=== PATIENT | female | born 1980 | race Caucasian/White ===

== ENCOUNTER 2019-12-25 10:20 | Outpatient (CLI) | payer MEDICARE, MEDICAID, SELFPAY ==
--- NOTE | ~2019-12-25 | XR_ITS ---
EXAMINATION: XR chest 2V EXAM DATE: 12/25/2019 10:40 INDICATION: Mid chest pain. Pneumonia follow-up. TECHNIQUE: Frontal and lateral projections of the chest obtained and reviewed. Comparison is made to prior examination from 12/14/2019. FINDINGS: The lungs are clear. There are no pleural effusions. The cardiomediastinal silhouette is within normal limits. There is no pneumothorax suspected. The bones and soft tissues are unremarkab le. IMPRESSION: Unremarkable chest x-ray exam. Reviewed, dictated and finalized at location A. 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
== END 2019-12-25 10:21 | disposition home or self-care (01) ==
LOC: ANHIMG 10:22
PROVIDERS: PCP Internal Medicine; Visit Provider Internal Medicine
DX: R07.9 Chest pain, unspecified (principal)
CPT/HCPCS: 71046

== ENCOUNTER 2020-01-01 08:01 | Outpatient (CLI) | payer MEDICARE, MEDICAID, SELFPAY ==
--- NOTE | ~2020-01-01 | CT_ITS ---
EXAMINATION: CT abdomen pelvis w con EXAM DATE: 01/01/2020 08:30 INDICATION: Left lower quadrant, bilateral flank pain. History kidney stones. Diarrhea constipation. TECHNIQUE: Spiral CT of the abdomen and pelvis was performed following intravenous injection of 100 m L Omnipaque 350. Axial, coronal and sagittal images were reviewed. The dose-length product (DLP) fo r this examination was 402.19 mGy-cm. The exposure was tailored according to patient size (auto mA e xposure control), and iterative reconstruction (ASIR) was used as additional dose reduction technique . Comparison is made to prior examination from 11/04/2019. FINDINGS: The liver, spleen, adrenal glands and pancreas are unremarkable. There are cholecystectomy clips. Portal and splenic veins are patent. Kidneys enhance symmetrically. There is no hydronephr osis. The uterus is not identified and has likely been surgically resected. The bladder is unremar kable. There is no retroperitoneal or pelvic lymphadenopathy. The appendix is normal. The stomach and small bowel are unremarkable. There is expected amount of c olonic stool. No free intraperitoneal gas. The heart is normal in size. There are no pericardial or pleural effusions. The lung bases are unremarkable. There are no osteoblastic or osteolytic les ions identified. IMPRESSION: 1. Unremarkable abdomen pelvis CT exam. Reviewed, dictated and finalized at location B. [employer]
--- NOTE | ~2020-01-01 | XR_ITS ---
EXAMINATION: XR abdomen/kub 1V EXAM DATE: 01/01/2020 08:17 INDICATION: Left lower quadrant pain. TECHNIQUE: Frontal projection(s) of the abdomen for interpretation. Comparison is made to prior exami nation from 10/20/2017. FINDINGS: There is expected amount of colonic stool and gas. No small bowel dilation, nonobstructiv e bowel gas pattern. There are no suspicious calcifications identified. There is no organomegaly suspected. The bones are unremarkable. There are cholecystectomy clips. IMPRESSION: Unremarkable abdomen x-ray exam. Reviewed, dictated and finalized at location B. 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
== END 2020-01-01 08:02 | disposition home or self-care (01) ==
LOC: ANHIMG 08:02
PROVIDERS: PCP Internal Medicine; Visit Provider Urology
DX: R10.32 Left lower quadrant pain (principal)
CPT/HCPCS: 74018; 74177; Q9967

== ENCOUNTER 2020-01-31 07:53 | Outpatient (CLI) | payer MEDICARE, MEDICAID, SELFPAY ==
--- NOTE | 2020-01-31 08:09 | ECHOL_ITS ---
Patient Info Name: Mirian Bueno Age: 39 years : 1980 Gender: Female Ht: 63 in Wt: 165 lbs BSA: 1.85 m2 HR: 100 bpm BP: 116 / 90 mmHg Technical Quality: Good Exam Date: 01/31/2020 8:45 AM Exam Location: [facility] Patient Status: Outpatient Admit Date: 01/31/2020 Staff Ordering Physician: aMrcial Krishna MD Pouch Maker: Shahriar Shoemaker RDCS, RT Attending Provider: Marcial Krishna MD Referring Physician: Erendira GARZA; Exam Type: CA echo limited Study Info Indications I31.3 - Pericardial effusion (noninflammatory) Complete two-dimensional, color flow and Doppler transthoracic echocardiogram is performed. Summary 1. Limited echocardiogram to assess for pericardial effusion. 2. There is trivial circumferential pericardial effusion. No evidence of cardiac tamponade with normal respiratory variations of mitral valve and tricuspid valve inflow. Pericardium/Pleural There is trivial circumferential pericardial effusion. No evidence of cardiac tamponade with normal respiratory variations of mitral valve and tricuspid valve inflow. Limited echocardiogram to assess for pericardial effusion. Report Signatures
== END 2020-01-31 07:54 | disposition home or self-care (01) ==
LOC: ANHCARD 07:55
PROVIDERS: PCP Internal Medicine; Visit Provider Internal Medicine
DX: I31.9 Disease of pericardium, unspecified (principal)
CPT/HCPCS: 93308

== ENCOUNTER 2020-02-01 13:39 | Emergency (ER) | payer MEDICARE, MEDICAID, SELFPAY ==
--- NOTE | ~2020-02-01 | XR_ITS ---
EXAMINATION: XR hand RT min 3V DATE: 02/01/2020 14:25 INDICATION: Right hand pain. TECHNIQUE: 3 views of right hand were obtained. COMPARISON: Right hand radiographs 08/17/2019 FINDINGS: Bone alignment is normal. No fracture. There is mild osteoarthritis of first interphalangea l joint. IMPRESSION: 1. Mild osteoarthritis of first interphalangeal joint. Reviewed, dictated and finalized at location A.
--- NOTE | ~2020-02-01 | US_ITS ---
EXAMINATION: US venous doppler UE RT EXAM DATE: 02/01/2020 14:48 INDICATION: Right hand pain, factor V deficiency. Palm swelling. TECHNIQUE: Multiple grayscale, color flow, Doppler sonographic images of the right upper extremity ve ins obtained by technologist. Compression was performed where able. There is no prior study for roman boogie. FINDINGS: Right upper extremity: Jugular vein: ------------> Normal. Subclavian vein: --------> Normal. Axillary vein:------------> Normal. Brachial vein:-----------> Normal. Basilic vein: ------------> Normal. Cephalic vein: ----------> Normal. Radial vein: ------------> Normal. Ulnar vein: > Normal. Area of concern was scanned, was unremarkable. No abscess. IMPRESSION: No deep venous thrombosis of the right upper extremity. Reviewed, dictated and finalized at location B.
[2020-02-01 13:50] VITALS: BP 139/77; PULSE 99; RESP 19; TEMP 36.9; O2SAT 100
--- NOTE | 2020-02-01 14:41 | ED.UPPEXIN ---
HPI - Extremity Injury (Upper) General Chief Complaint: Extremity Injury, Upper Stated Complaint: r hand pain Time Seen by Provider: 02/01/20 13:53 Source: patient Mode of arrival: ambulatory Limitations: no limitations History of Present Illness HPI narrative: This is a 39 year old female that presents to the ER for right hand pain since this morning. Reports she always has pain in her hands/wrists when she wakes up, but today was worse than normal. Reports pain mostly in the base of her right thumb. Associated with swelling. Reports she was told by her doctor to come be seen due to her being at increased risk of blood clots. Denies fever, erythema or warmth. Related Data Home Medications Medication Instructions Recorded Confirmed dextroamphetamine-amphetamine 30 mg PO DAILY 09/20/19 02/01/20 ibuprofen 600 mg PO Q4H 09/20/19 02/01/20 quetiapine 300 mg PO HS 09/20/19 02/01/20 cariprazine 3 mg capsule 6 mg PO DAILY cap 02/01/20 02/01/20 cyclobenzaprine 10 mg tablet 10 mg PO TID 02/01/20 02/01/20 lorazepam 1 mg tablet 2 mg PO DAILY PRN tablet 02/01/20 02/01/20 Allergies Allergy/AdvReac Type Severity Reaction Status Date / Time cephalexin Allergy Intermediate Hives / Verified 02/01/20 14:00 Red Face eluxadoline Allergy Intermediate Unknown Verified 02/01/20 14:00 prednisone Allergy Intermediate Rash Verified 02/01/20 14:00 clavulanic acid Allergy Mild Rash Verified 02/01/20 14:00 [From Augmentin] amoxicillin Allergy Unknown Rash Verified 02/01/20 14:00 azithromycin Allergy Unknown Hives Verified 02/01/20 14:00 levofloxacin Allergy Unknown Unknown Verified 02/01/20 14:00 Penicillins Allergy Unknown Unknown Verified 02/01/20 14:00 ropinirole Allergy Unknown parkinsons Verified 02/01/20 14:00 like symptoms tramadol Allergy Unknown Unknown Verified 02/01/20 14:00 trifluoperazine Allergy Unknown Unknown Verified 01/17/20 14:13 Review of Systems Review of Systems: Narrative: CONSTITUTIONAL: Denies fever SKIN: Denies rash MUSCULOSKELETAL: Reports joint pain, and myalgia. NEUROLOGIC: Denies numbness, or weakness. All systems reviewed & are unremarkable except as noted in HPI and below PMFSH Surgical History Surgical History (Updated 12/14/19 @ 16:08 by Shahriar Portillo) Cholecystectomy planned H/O breast augmentation H/O: hysterectomy History of gynecologic surgery Related to endometriosis, x3 Social History Social History Smoking packs per day: 1 Smoking cigarettes per day: 20.0 Smoking status: Heavy tobacco smoker Second hand tobacco smoke exposure: Yes Alcohol intake: never Gender identity (if verbalized by the patient): Female Exam Narrative: Exam Narrative: GENERAL: Well-appearing, well-nourished, and in no acute distress. HEAD: Normocephalic, atraumatic. EYES: EOMI. CHEST: Clear to auscultation. No respiratory distress. No wheezes rales or rhonchi HEART: Regular rate and rhythm. No murmur heard. Normal peripheral pulses. EXTREMITIES: Normal range of motion. No erythema or warmth of the extremities. Tender to palpation of the base of the right thumb. Normal sensation SKIN: Warm, dry, no rash. NEURO: No focal deficits. Alert and oriented x3. PSYCH: Normal mood and affect Course Vital Signs Vital signs: Vital Signs Temperature 98.5 F 02/01/20 13:50 Pulse Rate 99 02/01/20 13:50 Respiratory Rate 19 02/01/20 13:50 Blood Pressure 139/77 02/01/20 13:50 Pulse Oximetry 100 02/01/20 13:50 Temperature 98.5 F 02/01/20 13:50 Pulse Rate 99 02/01/20 13:50 Respiratory Rate 19 02/01/20 13:50 Blood Pressure 139/77 02/01/20 13:50 Pulse Oximetry 100 02/01/20 13:50 MDM - Extremity Injury (Upper) MDM Narrative Medical decision making narrative: Patient presents the emergency department for right hand pain since this morning. Reports she does have chronic pain in the hands and wrists due to fibrom
[2020-02-01 15:15] LABS: Basophils Absolute Auto 0.1 K/mm3 (0.0-0.1); Basophils Percent Auto 0.7 % (0.2-1.2); Eosinophils Absolute Auto 0.1 K/mm3 (0-0.3); Eosinophils Percent Auto 0.8 % (0-4.4); Hematocrit 44.3 % (37.0-47.0); Immature Granulocyte Absolute 0.07 K/mm3 (0.00-0.031); Immature Granulocyte Percent A 0.8 % (0-0.5); Lymphocytes Absolute Auto 2.51 K/mm3 (0.9-3.2); Mean Corpuscular HGB Conc 33.9 g/dl (32-36); Mean Corpuscular Hemoglobin 32.9 pg (26-34); Mean Corpuscular Volume 97.1 fl (80-100); Monocytes Absolute Auto 0.5 K/mm3 (0.1-0.6); Monocytes Percent Auto 5.8 % (2.6-8.5); Neutrophils Absolute Auto 5.2 K/mm3 (1.3-6.7); Neutrophils Percent Auto 61.9 % (45.5-73.1); Platelet Count Result 280 k/mm3 (150-375); Red Blood Count 4.56 M/mm3 (4.2-5.4); Red Cell Distribution Width 11.7 % (11.5-14.5); White Blood Count 8.4 K/mm3 (4.5-10.0)
[2020-02-01 15:29] LABS: INR 0.9; Prothrombin Time 12.3 Seconds (11.1-14.7)
[2020-02-01 15:30] LABS: Partial Thromboplastin Time 28.8 SECONDS (22.3-36.8)
[2020-02-01 15:31] LABS: Blood Urea Nitrogen 8 mg/dL (7-17); CRP 2.3 mg/dL (<1.0); Calcium 8.8 mg/dL (8.4-10.2); Carbon Dioxide 23 mmol/L (22-30); Chloride 106 mmol/L (98-107); Estimated Glomerular Filt Rate > 60; Glucose 83 mg/dL (65-105); Potassium 3.4 mmol/L (3.4-5.0); Sodium 138 mmol/L (137-145)
[2020-02-01 15:49] LABS: Erythrocyte Sedimentation Rate 19 mm/hr (0-20)
[2020-02-01 16:11] VITALS: BP 138/78; PULSE 74; RESP 20; TEMP 36.8; O2SAT 98
== END 2020-02-01 16:12 | disposition home or self-care (01) ==
PROVIDERS: Physician Assistant; Emergency Provider Emergency Medicine; PCP Internal Medicine
DX: M79.641 Pain in right hand (principal); F17.210 Nicotine dependence, cigarettes, uncomplicated; M19.041 Primary osteoarthritis, right hand
CPT/HCPCS: 36415; 73130; 80048; 85025; 85610; 85652; 85730; 86140; 93971; 99284; A9270

== ENCOUNTER 2020-02-21 12:25 | Emergency (ER) | payer MEDICARE, MEDICAID, SELFPAY ==
--- NOTE | ~2020-02-21 | XR_ITS ---
XR shoulder LT min 2V DATE: 02/21/2020 13:18 INDICATION: Left shoulder pain. No injury. TECHNIQUE: 4 views COMPARISON: None FINDINGS: No fracture or dislocation, periosteal reaction or bone destruction or abnormal soft tissue calcification. IMPRESSION: Negative Reviewed, dictated and finalized at location B. IMPRESSION: Negative
[2020-02-21 12:30] VITALS: BP 119/71; PULSE 67; RESP 20; TEMP 36.4; O2SAT 100
--- NOTE | 2020-02-21 12:53 | ED.GENADULT ---
HPI - General Adult General Chief complaint: Extremity Injury, Upper Stated complaint: L SHOULDER PAIN Time Seen by Provider: 02/21/20 12:53 Source: patient and RN notes reviewed Mode of arrival: ambulatory Limitations: no limitations History of Present Illness HPI narrative: 39-year-old female presents with complaints of diffused left shoulder pain for 1 day. Ibuprofen without relief and Dilaudid with some relief. Denies new numbness or tingling. History of numbness and tingling to bilateral hands. No known injury. Hurts with movement of shoulder. Denies radiating pain. No loss of mobility. No swelling. Exacerbating factor is movement. Relieving factor is rest and pain medication. The dominant hand is the RIGHT HAND. Remains active. Mirian denies being , history of hysterectomy per Mirian. Some parts of this dictation were generated by voice recognition software and may contain typographical and/or grammatical inaccuracies. Related Data Home Medications Medication Instructions Recorded Confirmed dextroamphetamine-amphetamine 30 mg PO DAILY 09/20/19 02/21/20 quetiapine 300 mg PO HS 09/20/19 02/21/20 cariprazine 3 mg capsule 4.5 mg PO DAILY cap 02/01/20 02/21/20 cyclobenzaprine 10 mg tablet 10 mg PO TID 02/01/20 02/21/20 lorazepam 1 mg tablet 2 mg PO DAILY PRN tablet 02/01/20 02/21/20 Allergies Allergy/AdvReac Type Severity Reaction Status Date / Time cephalexin Allergy Intermediate Hives / Verified 02/21/20 12:36 Red Face eluxadoline Allergy Intermediate Unknown Verified 02/21/20 12:36 prednisone Allergy Intermediate Rash Verified 02/21/20 12:36 clavulanic acid Allergy Mild Rash Verified 02/21/20 12:36 [From Augmentin] amoxicillin Allergy Unknown Rash Verified 02/21/20 12:36 azithromycin Allergy Unknown Hives Verified 02/21/20 12:36 levofloxacin Allergy Unknown Unknown Verified 02/20/20 13:52 Penicillins Allergy Unknown Unknown Verified 02/21/20 12:36 ropinirole Allergy Unknown parkinsons Verified 02/21/20 12:36 like symptoms tramadol Allergy Unknown Unknown Verified 02/21/20 12:36 trifluoperazine Allergy Unknown Unknown Verified 02/21/20 12:36 Review of Systems Review of Systems: Narrative: CONSTITUTIONAL: Denies fever, chills, sweats. EYES: Denies visual changes, redness, discharge. ENT: Denies rhinorrhea, congestion, sore throat, otalgia. CARDIOVASCULAR: Denies chest pain, palpitations, edema. RESPIRATORY: Denies dyspnea, wheezing, cough. GASTROINTESTINAL: Denies abdominal pain, nausea, vomiting, diarrhea. GENITOURINARY: Denies dysuria, hematuria, abnormal discharge. SKIN: Denies rash or itching. MUSCULOSKELETAL: Denies acute back pain or myalgia. Complains of diffused LT shoulder pain. NEUROLOGIC: Denies numbness or focal weakness. PSYCHIATRIC: Denies anxiety or depression. All other systems reviewed & are unremarkable except as noted in HPI and below. [facility] Past Medical History Medical History Anemia Angina at rest Anxiety Arthritis Asthma Bipolar disorder Bronchitis Chronic pain Cyst LUE, removed Dementia Depression Eczema Endometriosis Fibromyalgia GERD (gastroesophageal reflux disease) Gestational diabetes HLD (hyperlipidemia) Hypokalemia IBS (irritable bowel syndrome) Infertility Kidney stone Knee fracture, left Liver disease Lupus (systemic lupus erythematosus) MTHFR gene mutation Pelvic floor dysfunction Pericardial effusion Pericarditis Pneumonia Previous known suicide attempt PUD (peptic ulcer disease) Schizoaffective disorder Urolithiasis UTI (urinary tract infection) Surgical History Surgical History Cholecystectomy planned H/O breast augmentation H/O: hysterectomy History of gynecologic surgery Related to endometriosis, x3 Family History Family History Grandp
[2020-02-21] MEDS: KETOROLAC (*BKC) 60 MG/2 ML VIAL IM (13:11)
== END 2020-02-21 13:41 | disposition home or self-care (01) ==
PROVIDERS: Emergency Provider Nurse Practitioner Family; PCP Internal Medicine
DX: M25.512 Pain in left shoulder (principal); F17.210 Nicotine dependence, cigarettes, uncomplicated; J45.909 Unspecified asthma, uncomplicated; F41.9 Anxiety disorder, unspecified; F25.9 Schizoaffective disorder, unspecified; I20.9 Angina pectoris, unspecified; M19.90 Unspecified osteoarthritis, unspecified site; N80.9 Endometriosis, unspecified; K21.9 Gastro-esophageal reflux disease without esophagitis; E78.5 Hyperlipidemia, unspecified; M32.9 Systemic lupus erythematosus, unspecified
CPT/HCPCS: 73030; 96372; 99213; G0463; J1885

== ENCOUNTER 2020-05-06 15:24 | Outpatient (CLI) | payer MEDICARE, MEDICAID, SELFPAY ==
--- NOTE | ~2020-05-06 | MM_ITS ---
EXAMINATION: MM scrn lalit implant BI w prasanna HISTORY: Baseline screening mammogram TECHNIQUE: Craniocaudal and mediolateral oblique 3-D tomosynthesis images with implant displacement a nd synthetic 2-D images were generated. Craniocaudal and mediolateral oblique views of the breasts wi thout implant displacement were obtained using full field digital mammography. CAD analysis was submi tted and interpreted. COMPARISON: None, baseline BREAST PARENCHYMAL COMPOSITION: The breasts are heterogeneously dense, which may obscure small masses . FINDINGS: RIGHT BREAST: An asymmetry is present in the anterior third of the slightly outer breast best appreci ated on the craniocaudal view 1.5 cm from the nipple. LEFT BREAST: There is no evidence of suspicious mass, calcification, or architectural distortion to s uggest malignancy. IMPRESSION: 1. Right breast asymmetry on the craniocaudal view. 2. Additional mammographic views and possible breast ultrasound are recommended to evaluate for malig sommer and establish a baseline given that this is the first mammographic examination. BI-RADS Category 0: Incomplete: Needs additional imaging evaluation. Reviewed, dictated and finalized at location A. IMPRESSION: 1. Right breast asymmetry on the craniocaudal view. 2. Additional mammographic views and possible breast ultrasound are recommended to evaluate for malignancy and establish a baseline given that this is the fir st mammographic examination. BI-RADS Category 0: Incomplete: Needs additional imaging evaluation.
== END 2020-05-06 15:25 | disposition home or self-care (01) ==
LOC: ANHIMG 15:25
PROVIDERS: PCP Internal Medicine; Visit Provider Obstetrics & Gynecology
DX: Z12.31 Encounter for screening mammogram for malignant neoplasm of breast (principal)
CPT/HCPCS: 77063; 77067

== ENCOUNTER 2020-05-15 07:12 | Emergency (ER) | payer MEDICARE, MEDICAID, SELFPAY ==
[2020-05-15] VITALS (8 sets, daily range): BP systolic 110–127; BP diastolic 79–93; PULSE 70–74; RESP 17–22; TEMP 36.4; O2SAT 97–100
--- NOTE | ~2020-05-15 | XR_ITS ---
EXAMINATION: XR chest 2V DATE: 05/15/2020 07:59 INDICATION: Right sided chest and stomach pain. TECHNIQUE: PA and lateral views of the chest were obtained. COMPARISON: Chest radiograph dated 12/25/2019 FINDINGS: The lungs remain clear with no focal airspace opacities, pulmonary edema, pleural effusion or pneumot horax. The cardiomediastinal silhouette is normal. Bilateral breast implants. Mild thoracic spondylos is. IMPRESSION: 1. No acute cardiopulmonary disease. Reviewed, dictated and finalized at location A.
--- NOTE | 2020-05-15 07:15 | ECG_ITS ---
Measurements Intervals [place] Rate: 70 P: 34 CA: 178 QRS: 27 QRSD: 89 T: 13 QT: 389 QTc: 421 Interpretive Statements SINUS RHYTHM BORDERLINE ST-T WAVE ABNORMALITY- ANTEROLAT/INF LEADS BASELINE WANDER- I, II, AVR BORDERLINE ECG Electronically Signed On 05-15-2020 11:02:23 CDT by Luis Camarillo D.O.
--- NOTE | 2020-05-15 07:18 | ED.CHESTPAIN ---
HPI - Chest Pain General Chief Complaint: Chest Pain Stated Complaint: cp History of Present Illness HPI narrative: Tearing epigastric pain radiating to the left chest associated with SOB, nausea. She says this feels like when she had a pericardial effusion. On review of the chart she was previously treated for pericarditis. She only had a trivial effusion without tamponade. On repeat ECHO this had resolved. Related Data Home Medications Medication Instructions Recorded Confirmed dextroamphetamine-amphetamine 30 mg PO DAILY 09/20/19 05/01/20 cariprazine 3 mg capsule 4.5 mg PO DAILY cap 02/01/20 04/24/20 lorazepam 1 mg tablet 2 mg PO DAILY PRN tablet 02/01/20 04/24/20 ergocalciferol (vitamin D2) 1,250 1,250 mcg PO .1XW cap 03/27/20 05/01/20 mcg (50,000 unit) capsule ferrous sulfate 325 mg (65 mg 325 mg PO DAILY tablet 03/27/20 05/01/20 iron) tablet rosuvastatin 20 mg tablet 20 mg PO DAILY tablet 03/27/20 05/01/20 aspirin 81 mg tablet,delayed 81 mg PO DAILY 04/24/20 05/01/20 release folic acid 1 mg tablet 1 mg PO DAILY 04/24/20 05/01/20 cariprazine 4.5 mg capsule 4.5 mg PO DAILY 05/01/20 05/01/20 lorazepam 2 mg tablet 2 mg PO TID PRN 05/01/20 05/01/20 quetiapine 300 mg tablet 300 mg PO DAILY tablet 05/01/20 05/01/20 rivaroxaban 20 mg tablet 20 mg PO DAILY 05/01/20 05/01/20 Allergies Allergy/AdvReac Type Severity Reaction Status Date / Time amoxicillin Allergy Intermediate Rash Verified 05/15/20 07:24 azithromycin Allergy Intermediate Hives Verified 05/15/20 07:24 cephalexin Allergy Intermediate Hives / Verified 05/15/20 07:24 Red Face eluxadoline Allergy Intermediate Unknown Verified 05/15/20 07:24 levofloxacin Allergy Intermediate rash Verified 05/15/20 07:24 Penicillins Allergy Intermediate rash Verified 05/15/20 07:24 prednisone Allergy Intermediate Rash Verified 05/15/20 07:24 tramadol Allergy Intermediate Unknown Verified 05/15/20 07:24 trifluoperazine Allergy Intermediate sick Verified 05/15/20 07:24 clavulanic acid Allergy Mild Rash Verified 05/15/20 07:24 [From Augmentin] pregabalin [From Lyrica] Allergy Stopped Verified 05/15/20 07:23 Breathing ropinirole AdvReac Severe parkinsons Verified 05/01/20 13:38 like symptoms Review of Systems Review of Systems: All systems reviewed & are unremarkable except as noted in HPI and below Constitutional: Constitutional: Denies fever(s) Cardiovascular: Cardiovascular: Reports chest pain Respiratory: Respiratory: Reports dyspnea Gastrointestinal: Gastrointestinal: Reports abdominal pain and Reports nausea PMFSH Past Medical History Medical History Anemia Angina at rest Anxiety Arthritis Asthma Bipolar disorder Bronchitis Chronic pain Cyst LUE, removed Dementia Depression Eczema Endometriosis Fibromyalgia GERD (gastroesophageal reflux disease) Gestational diabetes HLD (hyperlipidemia) Hypokalemia IBS (irritable bowel syndrome) Infertility Kidney stone Knee fracture, left Liver disease Lupus (systemic lupus erythematosus) MTHFR gene mutation Pelvic floor dysfunction Pericardial effusion Pericarditis Pneumonia Previous known suicide attempt PUD (peptic ulcer disease) Schizoaffective disorder Urolithiasis UTI (urinary tract infection) Surgical History Surgical History Cholecystectomy planned H/O breast augmentation H/O: hysterectomy History of gynecologic surgery Related to endometriosis, x3 Family History Family History Grandparent Family history of coronary artery disease Father Family history of diabetes mellitus in first degree relative Diabetes mellitus Asthma Family history of arthritis Sibling Asthma Mother Family history of arthritis Social History Social History
[2020-05-15] MEDS: PANTOPRAZOLE SODIUM IV 40 MG VIAL IV PUSH (07:33)
[2020-05-15] MEDS: ONDANSETRON INJ 4 MG/2 ML VIAL IV PUSH ×2 (07:33→10:50)
[2020-05-15 07:48] LABS: Basophils Absolute Auto 0.1 K/mm3 (0.0-0.1); Basophils Percent Auto 0.8 % (0.2-1.2); Eosinophils Absolute Auto 0.1 K/mm3 (0-0.3); Eosinophils Percent Auto 1.6 % (0-4.4); Hematocrit 40.4 % (37.0-47.0); Immature Granulocyte Absolute 0.09 K/mm3 (0.00-0.031); Lymphocytes Absolute Auto 4.03 K/mm3 (0.9-3.2); Lymphocytes Percent Auto 44.7 % (18.3-44.2); Mean Corpuscular HGB Conc 34.7 g/dl (32-36); Mean Corpuscular Hemoglobin 33.6 pg (26-34); Mean Corpuscular Volume 96.9 fl (80-100); Mean Platelet Volume 9.7 fl (7.4-10.4); Monocytes Absolute Auto 0.7 K/mm3 (0.1-0.6); Monocytes Percent Auto 7.2 % (2.6-8.5); Neutrophils Percent Auto 44.7 % (45.5-73.1); Platelet Count Result 175 k/mm3 (150-375); Red Blood Count 4.17 M/mm3 (4.2-5.4); Red Cell Distribution Width 12.6 % (11.5-14.5)
[2020-05-15 07:56] LABS: Add Urine Microscopic? NO; Appearance Urine Clear (Clear); Bilirubin Urine Negative (Negative); Blood Urine Negative (Negative); Color Urine Straw (Yellow); Glucose Urine UA Negative (Negative); Ketones Urine Negative (Negative); Leukocyte Esterase Ur Negative LEU/UL (Negative); Nitrate Urine Negative (Negative); Protein Urine Negative (Negative); Urobilinogen Urine Negative mg/dL (<2.0)
[2020-05-15 08:00] LABS: Alanine Aminotransferase 34 U/L (4-35); Albumin Level 3.9 g/dL (3.5-5.1); Alkaline Phosphatase 58 U/L (38-126); Aspartate Amino Transferase 36 U/L (14-36); Bilirubin,Total < 0.1 mg/dL (0.2-1.3); Blood Urea Nitrogen 10 mg/dL (7-17); Calcium 8.8 mg/dL (8.4-10.2); Carbon Dioxide 26 mmol/L (22-30); Chloride 104 mmol/L (98-107); Estimated CRCL calculation 88 ml/min; Estimated Glomerular Filt Rate > 60; Glucose 121 mg/dL (65-105); Lipase 167 U/L (23-300); Potassium 3.5 mmol/L (3.4-5.0); Sodium 137 mmol/L (137-145)
[2020-05-15 08:01] LABS: Prothrombin Time 22.6 Seconds (11.1-14.7)
[2020-05-15 08:02] LABS: Partial Thromboplastin Time 40.1 SECONDS (22.3-36.8)
[2020-05-15 08:12] LABS: Troponin I < 0.012 ng/mL (0.000-0.034)
[2020-05-15] MEDS: BELLADONNA ALK/PHENOB ELIX 10 ML, MAG HYDROX/ALUMINUM HYD/SIMETH 30 ML, LIDOCAINE HCL 2... PO (10:04)
[2020-05-15 10:38] LABS: Troponin I < 0.012 ng/mL (0.000-0.034)
[2020-05-15] MEDS: DICYCLOMINE HCL INJ 20 MG/2 ML VIAL IM (10:50)
--- NOTE | 2020-05-15 11:27 | PC.NURSE ---
Care assumed at this time, report given by NIKUNJ Caballero
== END 2020-05-15 12:16 | disposition home or self-care (01) ==
PROVIDERS: Emergency Provider Emergency Medicine; PCP Internal Medicine
DX: Z79.82 Long term (current) use of aspirin (principal); R07.89 Other chest pain; M19.90 Unspecified osteoarthritis, unspecified site; J44.9 Chronic obstructive pulmonary disease, unspecified; F41.9 Anxiety disorder, unspecified; F31.9 Bipolar disorder, unspecified; M79.7 Fibromyalgia; K21.9 Gastro-esophageal reflux disease without esophagitis; E78.5 Hyperlipidemia, unspecified; K58.9 Irritable bowel syndrome, unspecified; Z87.442 Personal history of urinary calculi; K76.9 Liver disease, unspecified; M32.9 Systemic lupus erythematosus, unspecified; F25.9 Schizoaffective disorder, unspecified; Z87.440 Personal history of urinary (tract) infections; E72.12 Methylenetetrahydrofolate reductase deficiency; F17.210 Nicotine dependence, cigarettes, uncomplicated; Z87.11 Personal history of peptic ulcer disease
CPT/HCPCS: 36415; 71046; 80053; 81003; 81025; 83690; 84484; 85025; 85610; 85730; 93005; 96372; 96374; 96375; 99284; A9270; C9113; J0500; J2405

== ENCOUNTER 2020-05-26 19:15 | Emergency (ER) | payer MEDICARE, MEDICAID, SELFPAY ==
--- NOTE | ~2020-05-26 | US_ITS ---
EXAMINATION: US pelvic complete w TV DATE: 05/26/2020 20:39 INDICATION: Bilateral pelvic pain. Comparison:No prior studies for comparison. TECHNIQUE: Multiple transabdominal and endovaginal sonographic images of the pelvis performed. FINDINGS: The uterus is surgically absent. The right ovary measures 2.8 x 2.1 x 2.2 cm and the left ovary measures 2.6 x 1.8 x 2.3 cm. There ar e small follicles in each ovary. There is no free fluid in the pelvis. There are no abnormal masses seen on either side. IMPRESSION: 1. Unremarkable pelvic ultrasound post hysterectomy. Reviewed, dictated and finalized at location A.
[2020-05-26 19:31] VITALS: BP 158/95; PULSE 20; RESP 18; TEMP 37.2; O2SAT 99
[2020-05-26] MEDS: MORPHINE SULFATE 4 MG/ML INJ IV PUSH (19:57)
[2020-05-26] MEDS: ONDANSETRON INJ 4 MG/2 ML VIAL IV PUSH ×2 (19:57→21:09)
[2020-05-26 19:59] VITALS: BP 133/83; PULSE 90; RESP 18; O2SAT 100
[2020-05-26 20:03] LABS: Basophils Absolute Auto 0.1 K/mm3 (0.0-0.1); Eosinophils Absolute Auto 0.1 K/mm3 (0-0.3); Eosinophils Percent Auto 0.9 % (0-4.4); Hematocrit 40.6 % (37.0-47.0); Hemoglobin 14.3 g/dL (12.0-15.0); Immature Granulocyte Absolute 0.12 K/mm3 (0.00-0.031); Immature Granulocyte Percent A 1.2 % (0-0.5); Lymphocytes Absolute Auto 3.24 K/mm3 (0.9-3.2); Lymphocytes Percent Auto 32.6 % (18.3-44.2); Mean Corpuscular HGB Conc 35.2 g/dl (32-36); Mean Corpuscular Volume 96.4 fl (80-100); Mean Platelet Volume 10.6 fl (7.4-10.4); Monocytes Absolute Auto 0.9 K/mm3 (0.1-0.6); Monocytes Percent Auto 8.8 % (2.6-8.5); Neutrophils Absolute Auto 5.5 K/mm3 (1.3-6.7); Neutrophils Percent Auto 55.5 % (45.5-73.1); Platelet Count Result 204 k/mm3 (150-375); Red Blood Count 4.21 M/mm3 (4.2-5.4); Red Cell Distribution Width 12.7 % (11.5-14.5); White Blood Count 9.9 K/mm3 (4.5-10.0)
[2020-05-26 20:05] LABS: Add Urine Microscopic? NO; Appearance Urine Clear (Clear); Bilirubin Urine Negative (Negative); Blood Urine Negative (Negative); Color Urine Straw (Yellow); Glucose Urine UA Negative (Negative); Ketones Urine Negative (Negative); Leukocyte Esterase Ur Negative LEU/UL (Negative); Nitrate Urine Negative (Negative); Protein Urine Negative (Negative); Urobilinogen Urine Negative mg/dL (<2.0)
[2020-05-26 20:08] LABS: Specific Grav Ur 1.004 (1.001-1.035)
--- NOTE | 2020-05-26 20:10 | ED.ABDPAIN ---
HPI - Abdominal Pain General Chief Complaint: Abdominal Pain Stated Complaint: abd pain Time Seen by Provider: 05/26/20 19:32 History of Present Illness HPI narrative: Patient is a 40-year-old female who presents ER with lower abdominal pain. She was seen here a week and a half ago for similar symptoms. She followed up with her analytics analyst and was found to have a large ovarian cyst on the right side that measured 2 inches and then 1 inch ovarian cyst on the left side. She was placed on naproxen and Vicodin for her pain. Reports that has not improved it so she has not taken it today. Symptoms worsened today so she came in for further evaluation. No urinary frequency urgency. No vaginal discharge. She is without diarrhea or constipation. No known trauma. Symptoms wax and wane in intensity. Worsened by movement. Related Data Home Medications Medication Instructions Recorded Confirmed dextroamphetamine-amphetamine 30 mg PO DAILY 09/20/19 05/22/20 cariprazine 3 mg capsule 4.5 mg PO DAILY cap 02/01/20 05/22/20 lorazepam 1 mg tablet 2 mg PO DAILY PRN tablet 02/01/20 05/22/20 ergocalciferol (vitamin D2) 1,250 1,250 mcg PO .1XW cap 03/27/20 05/22/20 mcg (50,000 unit) capsule ferrous sulfate 325 mg (65 mg 325 mg PO DAILY tablet 03/27/20 05/22/20 iron) tablet rosuvastatin 20 mg tablet 20 mg PO DAILY tablet 03/27/20 05/22/20 folic acid 1 mg tablet 1 mg PO DAILY 04/24/20 05/22/20 cariprazine 4.5 mg capsule 4.5 mg PO DAILY 05/01/20 05/22/20 lorazepam 2 mg tablet 2 mg PO TID PRN 05/01/20 05/22/20 quetiapine 300 mg tablet 300 mg PO DAILY tablet 05/01/20 05/22/20 rivaroxaban 20 mg tablet 20 mg PO DAILY 05/01/20 05/22/20 cariprazine 4.5 mg capsule 4.5 mg PO DAILY 05/22/20 05/22/20 esketamine 28 mg nasal spray 56 mg NASAL 2XW 05/22/20 05/22/20 naproxen 500 mg tablet 500 mg PO BID tablet 05/22/20 05/22/20 norethindrone (contraceptive) 0.35 0.35 mg PO DAILY tablet 05/22/20 05/22/20 mg tablet quetiapine 300 mg tablet 300 mg PO DAILY tablet 05/22/20 05/22/20 aspirin 325 mg PO DAILY 05/26/20 05/26/20 Allergies Allergy/AdvReac Type Severity Reaction Status Date / Time amoxicillin Allergy Intermediate Rash Verified 05/26/20 19:35 azithromycin Allergy Intermediate Hives Verified 05/26/20 19:35 cephalexin Allergy Intermediate Hives / Verified 05/26/20 19:35 Red Face eluxadoline Allergy Intermediate Unknown Verified 05/26/20 19:35 levofloxacin Allergy Intermediate rash Verified 05/26/20 19:35 Penicillins Allergy Intermediate rash Verified 05/26/20 19:35 prednisone Allergy Intermediate Rash Verified 05/26/20 19:35 tramadol Allergy Intermediate Unknown Verified 05/26/20 19:35 trifluoperazine Allergy Intermediate sick Verified 05/26/20 19:35 clavulanic acid Allergy Mild Rash Verified 05/26/20 19:35 [From Augmentin] pregabalin [From Lyrica] Allergy Stopped Verified 05/26/20 19:35 Breathing ropinirole AdvReac Severe parkinsons Verified 05/26/20 19:35 like symptoms Review of Systems Review of Systems: All systems reviewed & are unremarkable except as noted in HPI and below Constitutional: Constitutional: Denies chills, Denies fever(s) and Denies weakness ENT: Denies dizziness and Denies sore throat Gastrointestinal: Gastrointestinal: Reports abdominal pain, Denies constipation, Denies diarrhea, Reports nausea and Denies vomiting Genitourinary: Genitourinary: Denies as per HPI, Denies abnormal vaginal bleeding, Denies nocturia and Denies dysuria Musculoskeletal: Musculoskeletal: Denies back pain and Denies muscle cramps [facility] Past Medical History Medical History (Updated 05/26/20 @ 22:42 by Mickey Galdamez MD) Anemia Angina at rest Anxiety Arthritis Asthma Bipolar disorder Bronchitis Chronic pain Cyst LUE, removed Dementia Depression Eczema Endometriosis Fibromyalgia GERD (gastroesophageal reflux disease) Gestational diabetes HLD (hyperlipidemia) Hypokalemia IBS (irritable bowel syndrome)
[2020-05-26 20:13] LABS: Blood Urea Nitrogen 6 mg/dL (7-17); Calcium 9.3 mg/dL (8.4-10.2); Carbon Dioxide 24 mmol/L (22-30); Chloride 104 mmol/L (98-107); Estimated Glomerular Filt Rate > 60; Glucose 179 mg/dL (65-105); Partial Thromboplastin Time 30.9 SECONDS (22.3-36.8); Potassium 3.7 mmol/L (3.4-5.0); Sodium 138 mmol/L (137-145)
[2020-05-26 21:11] VITALS: BP 123/78; PULSE 76; PULSE 79; RESP 18; O2SAT 98
[2020-05-26 22:57] VITALS: BP 133/86; PULSE 74; RESP 18; TEMP 36.6; O2SAT 98
== END 2020-05-26 22:59 | disposition home or self-care (01) ==
PROVIDERS: Emergency Provider Emergency Medicine; PCP Internal Medicine
DX: N83.202 Unspecified ovarian cyst, left side (principal); N83.201 Unspecified ovarian cyst, right side; D64.9 Anemia, unspecified; J45.909 Unspecified asthma, uncomplicated; N80.9 Endometriosis, unspecified; E78.5 Hyperlipidemia, unspecified; K58.9 Irritable bowel syndrome, unspecified; E72.12 Methylenetetrahydrofolate reductase deficiency; M32.9 Systemic lupus erythematosus, unspecified; I31.9 Disease of pericardium, unspecified; F31.9 Bipolar disorder, unspecified; F25.9 Schizoaffective disorder, unspecified; F41.9 Anxiety disorder, unspecified; Z87.442 Personal history of urinary calculi; Z87.11 Personal history of peptic ulcer disease; Z87.440 Personal history of urinary (tract) infections
CPT/HCPCS: 36415; 76830; 76856; 80048; 81003; 85025; 85610; 85730; 96374; 96375; 96376; 99284; A9270; J2270; J2405

== ENCOUNTER 2020-06-04 12:09 | Outpatient (CLI) | payer MEDICARE, MEDICAID, SELFPAY ==
--- NOTE | ~2020-06-04 | MMUS_ITS ---
EXAMINATION: MM diagnostic mammo unilat RT, US breast RT limited HISTORY: Right breast asymmetry on screening mammogram TECHNIQUE: Additional 3-D tomosynthesis images with implant displacement of the right breast were per formed and synthetic 2-D images were generated. Mediolateral view of the right breast without implan t displacement was obtained using full field digital mammography. CAD analysis was submitted and inte rpreted. High resolution limited right breast ultrasound was performed. COMPARISON: 05/06/2020 FINDINGS: MAMMOGRAPHIC FINDINGS: No persistent asymmetry is identified with spot compression of the right breast. Benign-appearing mary cifications are noted. ULTRASOUND: There is no evidence of focal abnormal solid or cystic lesion in the vicinity of the mammographic fin ding in question. IMPRESSION: 1. No mammographic or sonographic evidence of malignancy. 2. Recommend routine screening mammography in one year. BI-RADS Category 2: Benign finding(s). Reviewed, dictated and finalized at location A. IMPRESSION: 1. No mammographic or sonographic evidence of malignancy. 2. Recommend routine screening mammography in one year. BI-RADS Category 2: Benign finding(s).
== END 2020-06-04 12:10 | disposition home or self-care (01) ==
LOC: ANHIMG 12:11
PROVIDERS: PCP Internal Medicine; Visit Provider Obstetrics & Gynecology
DX: R92.8 Other abnormal and inconclusive findings on diagnostic imaging of breast (principal)
CPT/HCPCS: 76642; 77065

== ENCOUNTER 2020-06-27 16:47 | Outpatient (CLI) | payer MEDICARE, MEDICAID, SELFPAY ==
--- NOTE | ~2020-06-27 | XR_ITS ---
EXAMINATION: XR chest 2V DATE: 06/27/2020 17:07 INDICATION: Chronic obstructive pulmonary disease TECHNIQUE: PA and lateral views of the chest are obtained. COMPARISON: 05/15/2020 FINDINGS: The lungs are free of acute opacities. There is no pleural effusion or pneumothorax. The ca rdiomediastinal silhouette is normal. The visualized bones and soft tissues are unremarkable. Bilater al breast implants are noted. Cholecystectomy clips are present in the right upper quadrant. IMPRESSION: 1. No acute cardiopulmonary abnormality. Reviewed, dictated and finalized at location B.
== END 2020-06-27 16:48 | disposition home or self-care (01) ==
DX: J44.9 Chronic obstructive pulmonary disease, unspecified (principal)
CPT/HCPCS: 71046

== ENCOUNTER 2020-07-17 11:10 | Outpatient (CLI) | payer MEDICARE, MEDICAID, SELFPAY ==
--- NOTE | ~2020-07-17 | XR_ITS ---
EXAMINATION: XR knee LT min 4V DATE: 07/17/2020 11:34 INDICATION: Chondromalacia of left knee. TECHNIQUE: 4 views of left knee were obtained. COMPARISON: Left knee radiographs 03/19/2019 FINDINGS: Bone alignment is normal. No fracture. There is mild osteoarthritis of patellofemoral nuzhat rtment characterized by a tiny marginal osteophyte. No knee joint effusion. IMPRESSION: 1. Mild osteoarthritis of patellofemoral compartment of the knee. Reviewed, dictated and finalized at location B.
== END 2020-07-17 11:11 | disposition home or self-care (01) ==
LOC: ANHIMG 11:15
DX: M94.262 Chondromalacia, left knee (principal); M76.52 Patellar tendinitis, left knee; M17.12 Unilateral primary osteoarthritis, left knee
CPT/HCPCS: 73564

== ENCOUNTER 2020-08-07 13:40 | Emergency (ER) | payer MEDICARE, MEDICAID, SELFPAY ==
[2020-08-07] VITALS (21 sets, daily range): BP systolic 107–123; BP diastolic 68–80; PULSE 68–85; RESP 14–32; TEMP 36.4; O2SAT 81–100
--- NOTE | ~2020-08-07 | XR_ITS ---
EXAMINATION: XR chest 2V DATE: 08/07/2020 15:49 INDICATION: Asthma presenting with mid sternal chest pain TECHNIQUE: PA and lateral views of the chest were obtained. COMPARISON: Chest radiograph dated 06/27/2020 FINDINGS: The lungs remain clear with no focal airspace opacities, pulmonary edema, pleural effusion or pneumot horax. The cardiomediastinal silhouette is normal. Cholecystectomy clips in right upper quadrant. Mil d thoracic spondylosis. Bilateral breast implants. IMPRESSION: 1. No acute cardiopulmonary disease. Reviewed, dictated and finalized at location A.
--- NOTE | 2020-08-07 13:48 | ECG_ITS ---
Measurements Intervals [place] Rate: 81 P: 47 CO: 170 QRS: 37 QRSD: 87 T: -17 QT: 351 QTc: 410 Interpretive Statements SINUS RHYTHM NONSPECIFIC ST & T-WAVE ABNORMALITY- ANTEROLAT/INF LEADS BORDERLINE ECG Electronically Signed On 08-07-2020 14:37:04 CDT by Luis Camarillo D.O.
[2020-08-07 14:16] LABS: Basophils Absolute Auto 0.1 K/mm3 (0.0-0.1); Eosinophils Absolute Auto 0.1 K/mm3 (0-0.3); Eosinophils Percent Auto 1.6 % (0-4.4); Hemoglobin 15.1 g/dL (12.0-15.0); Immature Granulocyte Absolute 0.07 K/mm3 (0.00-0.031); Immature Granulocyte Percent A 0.8 % (0-0.5); Lymphocytes Absolute Auto 2.99 K/mm3 (0.9-3.2); Lymphocytes Percent Auto 33.5 % (18.3-44.2); Mean Corpuscular HGB Conc 35.1 g/dl (32-36); Mean Corpuscular Hemoglobin 34.1 pg (26-34); Mean Corpuscular Volume 97.1 fl (80-100); Mean Platelet Volume 10.8 fl (7.4-10.4); Monocytes Absolute Auto 0.6 K/mm3 (0.1-0.6); Monocytes Percent Auto 6.8 % (2.6-8.5); Neutrophils Percent Auto 56.3 % (45.5-73.1); Platelet Count Result 193 k/mm3 (150-375); Red Blood Count 4.43 M/mm3 (4.2-5.4); Red Cell Distribution Width 11.9 % (11.5-14.5); White Blood Count 8.9 K/mm3 (4.5-10.0)
[2020-08-07 14:28] LABS: INR 1.2; Prothrombin Time 14.7 Seconds (11.1-14.7)
[2020-08-07 14:29] LABS: Partial Thromboplastin Time 32.6 SECONDS (22.3-36.8)
[2020-08-07 14:32] LABS: Anion Gap 5 mmol/L (8-16); Blood Urea Nitrogen 6 mg/dL (7-17); Calcium 9.3 mg/dL (8.4-10.2); Carbon Dioxide 26 mmol/L (22-30); Chloride 104 mmol/L (98-107); Estimated CRCL calculation 101 ml/min; Estimated Glomerular Filt Rate > 60; Glucose 137 mg/dL (65-105); Potassium 3.8 mmol/L (3.4-5.0); Sodium 135 mmol/L (137-145)
[2020-08-07 14:57] LABS: Troponin I < 0.012 ng/mL (0.000-0.034)
--- NOTE | 2020-08-07 15:42 | PC.NURSE ---
Pt to radiology via w/c. Awaiting room availability. Made aware of busy dept.
--- NOTE | 2020-08-07 16:07 | ED.CHESTPAIN ---
HPI - Chest Pain General Chief Complaint: Chest Pain Stated Complaint: blurred vision/chest pain Time Seen by Provider: 08/07/20 16:05 History of Present Illness HPI narrative: She reports chest pain, SOB, blurry vision, dizziness, walking into things since yesterday. She was seen by her PCP today. I have seen her in the past with similar complaints. She does have a distant history of pericarditis, but has been seen multiple times since resolution and had a normal ECHo. Related Data Home Medications Medication Instructions Recorded Confirmed dextroamphetamine-amphetamine 30 mg PO DAILY 09/20/19 05/22/20 cariprazine 3 mg capsule 4.5 mg PO DAILY cap 02/01/20 05/22/20 lorazepam 1 mg tablet 2 mg PO DAILY PRN tablet 02/01/20 05/22/20 ergocalciferol (vitamin D2) 1,250 1,250 mcg PO .1XW cap 03/27/20 05/22/20 mcg (50,000 unit) capsule ferrous sulfate 325 mg (65 mg 325 mg PO DAILY tablet 03/27/20 05/22/20 iron) tablet rosuvastatin 20 mg tablet 20 mg PO DAILY tablet 03/27/20 05/22/20 folic acid 1 mg tablet 1 mg PO DAILY 04/24/20 05/22/20 cariprazine 4.5 mg capsule 4.5 mg PO DAILY 05/01/20 05/22/20 lorazepam 2 mg tablet 2 mg PO TID PRN 05/01/20 05/22/20 quetiapine 300 mg tablet 300 mg PO DAILY tablet 05/01/20 05/22/20 rivaroxaban 20 mg tablet 20 mg PO DAILY 05/01/20 05/22/20 cariprazine 4.5 mg capsule 4.5 mg PO DAILY 05/22/20 05/22/20 esketamine 28 mg nasal spray 56 mg NASAL 2XW 05/22/20 05/22/20 naproxen 500 mg tablet 500 mg PO BID tablet 05/22/20 05/22/20 norethindrone (contraceptive) 0.35 0.35 mg PO DAILY tablet 05/22/20 05/22/20 mg tablet quetiapine 300 mg tablet 300 mg PO DAILY tablet 05/22/20 05/22/20 aspirin 325 mg PO DAILY 05/26/20 05/26/20 Allergies Allergy/AdvReac Type Severity Reaction Status Date / Time amoxicillin Allergy Intermediate Rash Verified 08/07/20 13:54 azithromycin Allergy Intermediate Hives Verified 08/07/20 13:54 cephalexin Allergy Intermediate Hives / Verified 08/07/20 13:54 Red Face eluxadoline Allergy Intermediate Unknown Verified 08/07/20 13:54 levofloxacin Allergy Intermediate rash Verified 08/07/20 13:54 Penicillins Allergy Intermediate rash Verified 08/07/20 13:54 prednisone Allergy Intermediate Rash Verified 08/07/20 13:54 tramadol Allergy Intermediate Unknown Verified 08/07/20 13:54 trifluoperazine Allergy Intermediate sick Verified 08/07/20 13:54 clavulanic acid Allergy Mild Rash Verified 08/07/20 13:54 [From Augmentin] pregabalin [From Lyrica] Allergy Stopped Verified 08/07/20 13:54 Breathing ropinirole AdvReac Severe parkinsons Verified 08/07/20 13:54 like symptoms Review of Systems Review of Systems: All systems reviewed & are unremarkable except as noted in HPI and below Constitutional: Constitutional: Reports fatigue, Denies fever(s) and Reports weakness Eyes: Eyes: Reports change in vision Cardiovascular: Cardiovascular: Reports chest pain Respiratory: Respiratory: Reports dyspnea and Reports wheezing Gastrointestinal: Gastrointestinal: Reports nausea Genitourinary: Genitourinary: Denies dysuria Neurologic: Reports dizziness, Reports headache(s), Reports numbness and Reports weakness PMFSH Past Medical History Medical History Anemia Angina at rest Anxiety Arthritis Asthma Bipolar disorder Bronchitis Chronic pain Cyst LUE, removed Dementia Depression Eczema Endometriosis Fibromyalgia GERD (gastroesophageal reflux disease) Gestational diabetes HLD (hyperlipidemia) Hypokalemia IBS (irritable bowel syndrome) Infertility Kidney stone Knee fracture, left Liver disease Lupus (systemic lupus erythematosus) MTHFR gene mutation Ovarian cyst Pelvic floor dysfunction Pericardial effusion Pericarditis Pneumonia Previous known suicide attempt PUD (peptic ulcer disease) Schizoaffective disorder Urolithiasis UTI (urinary tract infection) Surgical History Surgical History (R
[2020-08-07] MEDS: ALBUTEROL SULFATE NEB 2.5 MG/0.5 ML INH 5 MG INHALATION (16:31)
[2020-08-07] MEDS: IPRATROPIUM BR 0.02% INH SOLN 0.5 MG/2.5 ML VIAL INHALATION (16:31)
[2020-08-07 17:06] LABS: Troponin I < 0.012 ng/mL (0.000-0.034)
[2020-08-07] MEDS: SODIUM CHLORIDE 0.9% IV 1,000 ML 999 ML IV CONT (17:13)
== END 2020-08-07 18:38 | disposition home or self-care (01) ==
PROVIDERS: Emergency Medicine; Emergency Provider Emergency Medicine
DX: R07.89 Other chest pain (principal); F17.210 Nicotine dependence, cigarettes, uncomplicated; D64.9 Anemia, unspecified; F41.9 Anxiety disorder, unspecified; F31.9 Bipolar disorder, unspecified; N80.9 Endometriosis, unspecified; M79.7 Fibromyalgia; K21.9 Gastro-esophageal reflux disease without esophagitis; E78.5 Hyperlipidemia, unspecified; M32.9 Systemic lupus erythematosus, unspecified; F25.9 Schizoaffective disorder, unspecified
CPT/HCPCS: 36415; 71046; 80048; 84484; 85025; 85610; 85730; 93005; 94640; 96360; 99284; J7030

== ENCOUNTER 2020-08-20 14:34 | Outpatient (CLI) | payer MEDICARE, MEDICAID, SELFPAY ==
--- NOTE | ~2020-08-20 | XR_ITS ---
EXAMINATION: XR chest 2V DATE: 08/20/2020 14:59 INDICATION: Cough and fever and shortness of breath. TECHNIQUE: Frontal and lateral views of the chest were obtained. COMPARISON: Chest 2 views 08/07/2020, chest CT 12/14/2019 FINDINGS: The chest demonstrates clear lungs without pneumonia, pleural effusion, or pneumothorax. Th e heart size is normal. There is a prominent right paracardial fat pad. There is electronic implant i n anterior chest wall. There are bilateral breast implants. IMPRESSION: 1. No acute cardiopulmonary disease. Reviewed, dictated and finalized at location A.
== END 2020-08-20 14:35 | disposition home or self-care (01) ==
DX: R06.02 Shortness of breath (principal); R05 Cough; R50.9 Fever, unspecified; J44.9 Chronic obstructive pulmonary disease, unspecified
CPT/HCPCS: 71046

== ENCOUNTER 2020-09-15 12:52 | Emergency (ER) | payer MEDICARE, MEDICAID, SELFPAY ==
--- NOTE | ~2020-09-15 | XR_ITS ---
EXAMINATION: XR knee LT min 4V DATE: 09/15/2020 13:16 INDICATION: Lateral sided left knee pain after feeling a palpable pop while walking TECHNIQUE: Anteroposterior, 2 oblique and crosstable lateral views of the left knee were obtained COMPARISON: 07/17/2020 FINDINGS: Alignment is normal. No fracture. Joint spaces appear normal although sensitivity for joint space ar e incompletely underestimated on nonweightbearing imaging. Tiny enthesophyte at the proximal patella. No joint effusion/layering lipohemarthrosis. Soft tissues are unremarkable. IMPRESSION: 1. . Negative left knee radiographs. Reviewed, dictated and finalized at location B.
--- NOTE | 2020-09-15 13:06 | ED.GENADULT ---
HPI - General Adult General Chief complaint: Extremity Injury, Lower Stated complaint: left knee/right hip Source: patient Mode of arrival: ambulatory Limitations: no limitations History of Present Illness HPI narrative: 40 y/o female. Presents to [facility] today with acute complaints of worsening LT knee discomforts > past 24 hours. Client notes to have been bending yesterday , and she felt her knee pop . She reports sudden 'sharp pain', intermittent, aggravated with prolonged standing or ambulation. Mildly relieved with rest. Client has not yet taken any home OTC remedies for pain relief. No falls or acute trauma relayed. No lower extremity weakness or loss of lower extremity control. She is ambulatory with gait steady. No additional acute c/o upon PE. Related Data Home Medications Medication Instructions Recorded Confirmed dextroamphetamine-amphetamine 30 mg PO DAILY 09/20/19 09/15/20 ergocalciferol (vitamin D2) 1,250 1,250 mcg PO .1XW cap 03/27/20 05/22/20 mcg (50,000 unit) capsule ferrous sulfate 325 mg (65 mg 325 mg PO DAILY tablet 03/27/20 05/22/20 iron) tablet rosuvastatin 20 mg tablet 20 mg PO DAILY tablet 03/27/20 09/15/20 folic acid 1 mg tablet 1 mg PO DAILY 04/24/20 09/15/20 quetiapine 300 mg tablet 400 mg PO HS tablet 05/01/20 09/15/20 rivaroxaban 20 mg tablet 20 mg PO DAILY 05/01/20 09/15/20 cariprazine 4.5 mg capsule 4.5 mg PO DAILY 05/22/20 09/15/20 esketamine 28 mg nasal spray 56 mg NASAL 2XW 05/22/20 05/22/20 norethindrone (contraceptive) 0.35 0.35 mg PO DAILY tablet 05/22/20 05/22/20 mg tablet aspirin 325 mg PO DAILY 05/26/20 09/15/20 alprazolam [Xanax] 2 mg PO BID 09/15/20 09/15/20 propranolol 20 mg PO QPM 09/15/20 09/15/20 Allergies Allergy/AdvReac Type Severity Reaction Status Date / Time amoxicillin Allergy Intermediate Rash Verified 09/15/20 13:15 azithromycin Allergy Intermediate Hives Verified 09/15/20 13:15 cephalexin Allergy Intermediate Hives / Verified 09/15/20 13:15 Red Face eluxadoline Allergy Intermediate Unknown Verified 09/15/20 13:15 levofloxacin Allergy Intermediate rash Verified 09/15/20 13:15 Penicillins Allergy Intermediate rash Verified 09/15/20 13:15 prednisone Allergy Intermediate Rash Verified 09/15/20 13:15 tramadol Allergy Intermediate Unknown Verified 09/15/20 13:15 trifluoperazine Allergy Intermediate sick Verified 09/15/20 13:15 clavulanic acid Allergy Mild Rash Verified 09/15/20 13:15 [From Augmentin] pregabalin [From Lyrica] Allergy Stopped Verified 09/15/20 13:15 Breathing ropinirole AdvReac Severe parkinsons Verified 09/15/20 13:15 like symptoms Review of Systems Review of Systems: Narrative: CONSTITUTIONAL: Denies fever, chills, sweats. EYES: Denies visual changes, redness, discharge. ENT: Denies rhinorrhea, congestion, sore throat, otalgia. CARDIOVASCULAR: Denies chest pain, palpitations, edema. RESPIRATORY: Denies dyspnea, wheezing, cough GASTROINTESTINAL: Denies abdominal pain, nausea, vomiting, diarrhea. GENITOURINARY: Denies dysuria, hematuria, abnormal discharge SKIN: Denies rash or itching. MUSCULOSKELETAL: Positive LT knee pain. Denies acute back pain, or myalgia. NEUROLOGIC: Denies numbness, or focal weakness. PSYCHIATRIC: Denies anxiety or depression. Constitutional: Constitutional: Reports as per [facility] Past Medical History Medical History (Updated 09/15/20 @ 13:28 by Nehal Castle, COMMODITY MERCHANT-C) Anemia Angina at rest Anxiety Arthritis Asthma Bipolar disorder Bronchitis Chronic pain Cyst LUE, removed Dementia Depression Eczema Endometriosis Fibromyalgia GERD (gastroesophageal reflux disease) Gestational diabetes HLD (hyperlipidemia) Hypokalemia IBS (irritable bowel syndrome) Infertility Kidney stone Knee fracture, left Liver disease Lupus (systemic lupus erythematosus) MTHFR gene mutation Ovarian cyst Pelvic floor dysfunction Pericardial effusion Pericarditis Pneumonia Previo
[2020-09-15 13:08] VITALS: BP 124/73; PULSE 87; RESP 20; TEMP 36.8; O2SAT 100
== END 2020-09-15 13:44 | disposition home or self-care (01) ==
PROVIDERS: Emergency Provider Nurse Practitioner Adult Health
DX: S83.92XA Sprain of unspecified site of left knee, initial encounter (principal); X50.9XXA Other and unspecified overexertion or strenuous movements or postures, initial encounter; F41.9 Anxiety disorder, unspecified; M19.90 Unspecified osteoarthritis, unspecified site; F31.9 Bipolar disorder, unspecified; K21.9 Gastro-esophageal reflux disease without esophagitis; E78.5 Hyperlipidemia, unspecified; M32.9 Systemic lupus erythematosus, unspecified; F20.9 Schizophrenia, unspecified; E72.12 Methylenetetrahydrofolate reductase deficiency; M79.7 Fibromyalgia; N80.9 Endometriosis, unspecified; I20.9 Angina pectoris, unspecified
CPT/HCPCS: 73564; 99213; G0463

== ENCOUNTER 2021-01-07 15:15 | Outpatient (CLI) | payer MEDICARE, MEDICAID, SELFPAY ==
--- NOTE | ~2021-01-07 | CT_ITS ---
EXAMINATION: CT abdomen pelvis w con EXAM DATE: 01/07/2021 16:28 INDICATION: Pelvic and perineal pain. Intermittent constipation and diarrhea. TECHNIQUE: Spiral CT of the abdomen and pelvis was performed following intravenous injection of 100 m L Omnipaque 350. Axial, coronal and sagittal images were reviewed. The dose-length product (DLP) fo r this examination was 909.69 mGy-cm. The exposure was tailored according to patient size (auto mA e xposure control), and iterative reconstruction (ASIR) was used as additional dose reduction technique . 01/01/2020 FINDINGS: There is interval development of hepatic steatosis without suspicious focal lesion identifi ed. Spleen, adrenal glands, pancreas are unremarkable. There are cholecystectomy clips. Portal and splenic veins are patent. Kidneys enhance symmetrically. There is no hydronephrosis. The uterus i s not identified and has likely been surgically resected. The bladder is unremarkable. There is no retroperitoneal or pelvic lymphadenopathy. There is mild scattered arteriosclerotic disease. The appendix is normal. The stomach and small bowel are unremarkable. There is expected amount of c olonic stool. No free intraperitoneal gas. The heart is normal in size. There are no pericardial or pleural effusions. The lung bases are unremarkable. There are no osteoblastic or osteolytic les ions identified. IMPRESSION: 1. No acute intra-abdominal findings. 2. Hepatic steatosis. Reviewed, dictated and finalized at location A. 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
[2021-01-07 16:19] LABS: Estimated Glomerular Filt Rate > 60
== END 2021-01-07 15:16 | disposition home or self-care (01) ==
PROVIDERS: Visit Provider Nurse Practitioner Obstetrics & Gynecology
DX: R10.2 Pelvic and perineal pain (principal); K76.0 Fatty (change of) liver, not elsewhere classified
CPT/HCPCS: 74177; Q9967

== ENCOUNTER → 2021-01-13 11:26 | Outpatient (CLI) | payer MEDICARE, MEDICAID, SELFPAY ==
--- NOTE | ~2021-01-13 | XR_ITS ---
XR chest 2V DATE: 01/13/2021 11:51 INDICATION: Left chest, shoulder pain. History of COPD. Smoker. TECHNIQUE: PA and lateral views COMPARISON: 08/20/2022 view chest FINDINGS: Normal heart size. No hilar or mediastinal enlargement. There is minimal infiltrate and/or atelectasis at the left lung base and blunting of the left costoph renic angle suggesting small left pleural effusion, new since 08/20/2020. No pulmonary infiltrate or consolidation, right pleural effusion or pulmonary vascular congestion or pneumothorax is noted otherwise. At the lower margin of the lateral radiograph there is suggestion of cholecystectomy surgical clips. IMPRESSION: Minimal atelectasis or infiltrate at left lung base and small left pleural effusion Reviewed, dictated and finalized at location A. 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
--- NOTE | ~2021-01-13 | XR_ITS ---
XR shoulder LT min 2V DATE: 01/13/2021 11:52 INDICATION: Left shoulder pain for 3 days TECHNIQUE: 4 views COMPARISON: 02/21/2020 left shoulder FINDINGS: Normal alignment at the acromioclavicular and glenohumeral joints. No fracture, dislocation , periosteal reaction or bone destruction of left shoulder. No abnormal left shoulder soft tissue mary cification. IMPRESSION: Negative left shoulder Reviewed, dictated and finalized at location A. 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
== END ==
DX: M25.512 Pain in left shoulder (principal); J90 Pleural effusion, not elsewhere classified
CPT/HCPCS: 71046; 73030

== ENCOUNTER 2021-02-25 19:47 | Emergency (ER) | payer MEDICARE, MEDICAID, SELFPAY ==
--- NOTE | ~2021-02-25 | CT_ITS ---
EXAMINATION: CT abdomen pelvis w con INDICATION: Right lower quadrant pain TECHNIQUE: Computed tomographic images of the abdomen and pelvis were obtained after the administrati on of 100 cc of Omnipaque 350 intravenous contrast. The dose-length product (DLP) was 483.96 mGy-cm. Automated exposure control and iterative reconstruction technique were employed. COMPARISON: 01/07/2021 FINDINGS: The lung bases are clear. The heart size is normal. The gallbladder is surgically absent. T here is mild enlargement of the common bile duct and central intrahepatic ducts which is likely due t o post cholecystectomy state. The liver is diffusely low in attenuation when compared with the spleen , consistent with hepatic steatosis. The spleen, pancreas, and adrenal glands are normal. Cysts of th e kidneys measure up to 11 mm on the right. No pathologically enlarged abdominal or pelvic lymph node s are identified. There is no free intraperitoneal gas or evidence of bowel obstruction. The appendix is normal. There is moderate distention of the urinary bladder. IMPRESSION: 1. No CT correlate for the patient's symptoms. Reviewed, dictated and finalized at location A.
[2021-02-25 19:49] VITALS: BP 129/72; PULSE 78; RESP 18; TEMP 36.4; O2SAT 100
[2021-02-25 20:11] LABS: Add Urine Microscopic? NO; Appearance Urine Clear (Clear); Bilirubin Urine Negative (Negative); Blood Urine Negative (Negative); Color Urine Colorless (Yellow); Glucose Urine UA Negative (Negative); Ketones Urine Negative (Negative); Leukocyte Esterase Ur Negative LEU/UL (Negative); Nitrate Urine Negative (Negative); Protein Urine Negative (Negative); Urobilinogen Urine Negative mg/dL (<2.0)
[2021-02-25 20:13] LABS: Specific Grav Ur 1.002 (1.001-1.035)
[2021-02-25 20:45] LABS: Basophils Absolute Auto 0.1 K/mm3 (0.0-0.1); Basophils Percent Auto 0.8 % (0.2-1.2); Eosinophils Absolute Auto 0.1 K/mm3 (0-0.3); Eosinophils Percent Auto 0.6 % (0-4.4); Hematocrit 42.6 % (37.0-47.0); Immature Granulocyte Absolute 0.03 K/mm3 (0.00-0.031); Immature Granulocyte Percent A 0.3 % (0-0.5); Lymphocytes Absolute Auto 3.19 K/mm3 (0.9-3.2); Lymphocytes Percent Auto 35.4 % (18.3-44.2); Mean Corpuscular HGB Conc 35.2 g/dl (32-36); Mean Corpuscular Hemoglobin 32.8 pg (26-34); Mean Corpuscular Volume 93.2 fl (80-100); Mean Platelet Volume 10.5 fl (7.4-10.4); Monocytes Absolute Auto 0.5 K/mm3 (0.1-0.6); Monocytes Percent Auto 5.8 % (2.6-8.5); Neutrophils Absolute Auto 5.1 K/mm3 (1.3-6.7); Neutrophils Percent Auto 57.1 % (45.5-73.1); Platelet Count Result 220 k/mm3 (150-375); Red Blood Count 4.57 M/mm3 (4.2-5.4); Red Cell Distribution Width 11.7 % (11.5-14.5)
[2021-02-25 20:57] LABS: Alanine Aminotransferase 31 U/L (4-35); Albumin Level 4.7 g/dL (3.5-5.1); Alkaline Phosphatase 48 U/L (38-126); Anion Gap 10 mmol/L (8-16); Aspartate Amino Transferase 36 U/L (14-36); Bilirubin,Total 0.5 mg/dL (0.2-1.3); Blood Urea Nitrogen 10 mg/dL (7-17); Calcium 9.7 mg/dL (8.4-10.2); Carbon Dioxide 22 mmol/L (22-30); Chloride 107 mmol/L (98-107); Estimated CRCL calculation 89 ml/min; Estimated Glomerular Filt Rate > 60; Glucose 99 mg/dL (65-105); Lipase 338 U/L (23-300); Potassium 3.6 mmol/L (3.4-5.0); Sodium 139 mmol/L (137-145)
[2021-02-25] MEDS: SODIUM CHLORIDE 0.9% IV 1,000 ML 999 ML IV CONT (21:25)
[2021-02-25] MEDS: ONDANSETRON INJ 4 MG/2 ML VIAL IV PUSH (21:25)
[2021-02-25] MEDS: MORPHINE SULFATE (*CRX) 4 MG/ML INJ IV PUSH (21:25)
[2021-02-25 21:28] VITALS: BP 135/73; PULSE 74; RESP 20; O2SAT 100
--- NOTE | 2021-02-25 21:57 | ED.GENADULT ---
HPI - General Adult General Chief complaint: Abdominal Pain Stated complaint: abdominal pain Time Seen by Provider: 02/25/21 20:58 History of Present Illness HPI narrative: Patient is a 40-year-old female who presents ER with abdominal pain. She reports is diffuse pain that began around noon. It sharp and cramping. Radiates to her back and sometimes up her neck. Associate with emesis x1. No diarrhea. She is not having fevers or chills or sweats. She is found no alleviating factors. She has had no dysuria/urinary frequency however friend notes that she has been peeing more often than typical. Patient has found no alleviating factors but has not tried any medications. Denies vaginal bleeding or discharge. Related Data Home Medications Medication Instructions Recorded Confirmed dextroamphetamine-amphetamine 30 mg PO DAILY 09/20/19 09/15/20 ergocalciferol (vitamin D2) 1,250 1,250 mcg PO .1XW cap 03/27/20 05/22/20 mcg (50,000 unit) capsule ferrous sulfate 325 mg (65 mg 325 mg PO DAILY tablet 03/27/20 05/22/20 iron) tablet rosuvastatin 20 mg tablet 20 mg PO DAILY tablet 03/27/20 09/15/20 folic acid 1 mg tablet 1 mg PO DAILY 04/24/20 09/15/20 quetiapine 300 mg tablet 400 mg PO HS tablet 05/01/20 09/15/20 rivaroxaban 20 mg tablet 20 mg PO DAILY 05/01/20 09/15/20 cariprazine 4.5 mg capsule 4.5 mg PO DAILY 05/22/20 09/15/20 esketamine 28 mg nasal spray 56 mg NASAL 2XW 05/22/20 05/22/20 norethindrone (contraceptive) 0.35 0.35 mg PO DAILY tablet 05/22/20 05/22/20 mg tablet aspirin 325 mg PO DAILY 05/26/20 09/15/20 alprazolam [Xanax] 2 mg PO BID 09/15/20 09/15/20 propranolol 20 mg PO QPM 09/15/20 09/15/20 Allergies Allergy/AdvReac Type Severity Reaction Status Date / Time amoxicillin Allergy Intermediate Rash Verified 09/15/20 13:15 azithromycin Allergy Intermediate Hives Verified 09/15/20 13:15 cephalexin Allergy Intermediate Hives / Verified 09/15/20 13:15 Red Face eluxadoline Allergy Intermediate Unknown Verified 09/15/20 13:15 levofloxacin Allergy Intermediate rash Verified 09/15/20 13:15 Penicillins Allergy Intermediate rash Verified 09/15/20 13:15 prednisone Allergy Intermediate Rash Verified 09/15/20 13:15 tramadol Allergy Intermediate Unknown Verified 09/15/20 13:15 trifluoperazine Allergy Intermediate sick Verified 09/15/20 13:15 clavulanic acid Allergy Mild Rash Verified 09/15/20 13:15 [From Augmentin] pregabalin [From Lyrica] Allergy Stopped Verified 09/15/20 13:15 Breathing sulfamethoxazole Allergy Rash Verified 02/25/21 19:53 [From Bactrim] trimethoprim [From Bactrim] Allergy Rash Verified 02/25/21 19:53 ropinirole AdvReac Severe parkinsons Verified 09/15/20 13:15 like symptoms Review of Systems Review of Systems: All systems reviewed & are unremarkable except as noted in HPI and below Constitutional: Constitutional: Denies chills, Denies fever(s) and Denies weakness ENT: Denies nasal congestion and Denies sore throat Cardiovascular: Cardiovascular: Denies chest pain, Denies rapid heart rate and Denies radiating jaw, neck or arm pain Respiratory: Respiratory: Denies cough and Denies dyspnea Gastrointestinal: Gastrointestinal: Reports abdominal pain, Denies bloating, Denies diarrhea, Reports nausea and Reports vomiting Genitourinary: Genitourinary: Denies abnormal vaginal bleeding, Denies nocturia, Denies dysuria, Denies flank pain and Denies vaginal discharge [facility] Past Medical History Medical History (Updated 02/25/21 @ 23:07 by Mickey Galdamez MD) Anemia Angina at rest Anxiety Arthritis Asthma Bipolar disorder Bronchitis Chronic pain Cyst LUE, removed Dementia Depression Eczema Endometriosis Fibromyalgia GERD (gastroesophageal reflux disease) Gestational diabetes HLD (hyperlipidemia) Hypokalemia IBS (irritable bowel syndrome) Infertility Kidney stone Knee fracture, left Liver disease Lupus (systemic lupus erythematosus) MTHFR gene mutation O
[2021-02-25 22:10] VITALS: BP 162/76; PULSE 55; RESP 20; O2SAT 100
[2021-02-25 23:00] VITALS: BP 142/74; PULSE 56; RESP 16; O2SAT 100
== END 2021-02-25 23:15 | disposition home or self-care (01) ==
PROVIDERS: Emergency Medicine; Emergency Provider Emergency Medicine
DX: R10.30 Lower abdominal pain, unspecified (principal); J45.909 Unspecified asthma, uncomplicated; F03.90 Unspecified dementia, unspecified severity, without behavioral disturbance, psychotic disturbance, mood disturbance, and anxiety; M32.9 Systemic lupus erythematosus, unspecified; M79.7 Fibromyalgia; M19.90 Unspecified osteoarthritis, unspecified site; K21.9 Gastro-esophageal reflux disease without esophagitis; E78.5 Hyperlipidemia, unspecified; K58.9 Irritable bowel syndrome, unspecified; K76.9 Liver disease, unspecified; F41.9 Anxiety disorder, unspecified; F31.9 Bipolar disorder, unspecified; F25.9 Schizoaffective disorder, unspecified; E72.12 Methylenetetrahydrofolate reductase deficiency; Z87.442 Personal history of urinary calculi; Z86.711 Personal history of pulmonary embolism; Z87.440 Personal history of urinary (tract) infections; F17.210 Nicotine dependence, cigarettes, uncomplicated
CPT/HCPCS: 36415; 51701; 74177; 80053; 81003; 81025; 83690; 85025; 96361; 96374; 96375; 99284; J2270; J2405; J7030; Q9967

== ENCOUNTER 2021-03-18 09:06 | Outpatient (CLI) | payer MEDICARE, MEDICAID, SELFPAY ==
--- NOTE | ~2021-03-18 | XR_ITS ---
XR wrist RT 2V 03/18/2021 09:45 Indication: Right wrist pain Procedure: 2 views right wrist Comparison: No prior studies for comparison. Findings: There is an ulnar styloid avulsion fracture, likely chronic. No acute fracture, subluxation or dislocation. No erosive changes. No focal soft tissue abnormality. No foreign bodies. Impression: 1: No significant bone or joint abnormality. Reviewed, dictated and finalized at location B. Impression: 1: No significant bone or joint abnormality.
--- NOTE | ~2021-03-18 | XR_ITS ---
XR hip RT min 2V, XR hip LT min 2V 03/18/2021 09:45 Indication: Joint pain Procedure: 2 views each hip Comparison: 08/17/2019 Findings: Normal anatomic alignment. No significant joint space narrowing. No fracture or traumatic m alalignment. There are calcifications overlying the gluteal regions, likely injection granulomas. Impression: 1: No significant bone or joint abnormalities. Reviewed, dictated and finalized at location B. Impression: 1: No significant bone or joint abnormalities. Impression: 1: No significant bone or joint abnormalities.
--- NOTE | ~2021-03-18 | XR_ITS ---
XR hand LT 2V 03/18/2021 09:45 Indication: Left hand pain Procedure: 2 views left hand Comparison: Left hand series dated 08/17/2019 Findings: No fracture, subluxation or dislocation. No erosive changes. No joint space narrowing. No f ocal soft tissue abnormality. No foreign bodies. Impression: 1: No significant bone or joint abnormality. Reviewed, dictated and finalized at location B. Impression: 1: No significant bone or joint abnormality.
--- NOTE | ~2021-03-18 | XR_ITS ---
XR knee RT 2V 03/18/2021 09:45 Indication: Joint pain Procedure: 2 views right knee Comparison: No prior studies for comparison. Findings: Normal anatomic alignment. No significant joint space narrowing. No erosive changes. No fra cture or traumatic malalignment. No foreign bodies. Impression: 1: No significant bone or joint abnormality. Reviewed, dictated and finalized at location B. Impression: 1: No significant bone or joint abnormality.
--- NOTE | ~2021-03-18 | XR_ITS ---
XR foot LT 2V 03/18/2021 09:46 Indication: Left foot pain Procedure: 2 views left foot Comparison: 08/17/2019 Findings: No fracture, subluxation or dislocation. Lisfranc joint intact. No soft tissue abnormality. No foreign bodies. No erosive changes. Impression: 1: No significant bone or joint abnormality. Reviewed, dictated and finalized at location B. Impression: 1: No significant bone or joint abnormality.
--- NOTE | ~2021-03-18 | XR_ITS ---
XR wrist LT 2V 03/18/2021 09:45 Indication: Left wrist pain Procedure: 2 views left wrist Comparison: No prior studies for comparison. Findings: No fracture, subluxation or dislocation to suggest malignancy. No erosive changes. No joint space narrowing. No focal soft tissue abnormality. No foreign bodies. Impression: 1: No significant bone or joint abnormality. Reviewed, dictated and finalized at location B. Impression: 1: No significant bone or joint abnormality.
--- NOTE | ~2021-03-18 | XR_ITS ---
XR knee LT 2V 03/18/2021 09:45 Indication: Joint pain Procedure: 2 views left knee Comparison: 09/15/2020 Findings: Normal anatomic alignment. No significant joint space narrowing. No erosive changes. No fra cture or traumatic malalignment. No foreign bodies. Impression: 1: No significant bone or joint abnormality. Reviewed, dictated and finalized at location B. Impression: 1: No significant bone or joint abnormality.
--- NOTE | ~2021-03-18 | XR_ITS ---
XR ankle RT 2V 03/18/2021 09:45 Indication: Right ankle pain Procedure: 2 views right ankle Comparison: No prior studies for comparison. Findings: No fracture, subluxation or dislocation. Ankle mortise intact. Talar dome is normal. No sig nificant soft tissue abnormality. No foreign bodies. Impression: 1: No significant bone or joint abnormality. Reviewed, dictated and finalized at location B. Impression: 1: No significant bone or joint abnormality.
--- NOTE | ~2021-03-18 | XR_ITS ---
XR foot RT 2V 03/18/2021 09:45 Indication: Joint pain Procedure: 2 views right foot Comparison: No prior studies for comparison. Findings: No fracture, subluxation or dislocation. No significant joint space narrowing. No erosive c hanges. Lisfranc joint intact. No focal soft tissue abnormality. No foreign bodies. Impression: 1: No significant bone or joint abnormality. Reviewed, dictated and finalized at location B. Impression: 1: No significant bone or joint abnormality.
--- NOTE | ~2021-03-18 | XR_ITS ---
XR hand RT 2V 03/18/2021 09:45 Indication: Joint pain Procedure: 2 view right wrist Comparison: No prior studies for comparison. Findings: No fracture or traumatic malalignment. There is an old ulnar styloid avulsion fracture. No erosive changes. No soft tissue abnormality. No foreign body. Impression: 1: No significant bone or joint abnormality. Reviewed, dictated and finalized at location B. Impression: 1: No significant bone or joint abnormality.
--- NOTE | ~2021-03-18 | XR_ITS ---
XR ankle LT 2V 03/18/2021 09:45 Indication: Joint pain Procedure: 2 views left ankle Comparison: No prior studies for comparison. Findings: No fracture, subluxation or dislocation. Ankle mortise intact. Talar dome is normal. No sig nificant soft tissue abnormality. No foreign bodies. Impression: 1: No significant bone or joint abnormality. Reviewed, dictated and finalized at location B. Impression: 1: No significant bone or joint abnormality.
== END 2021-03-18 09:07 | disposition home or self-care (01) ==
LOC: ANHIMG 09:10
PROVIDERS: PCP Internal Medicine; Visit Provider Internal Medicine Rheumatology
DX: M25.50 Pain in unspecified joint (principal)
CPT/HCPCS: 73100; 73120; 73502; 73560; 73600; 73620

== ENCOUNTER → 2021-04-11 07:28 | Outpatient (CLI) | payer MEDICARE, MEDICAID, SELFPAY ==
--- NOTE | ~2021-04-11 | MR_ITS ---
EXAMINATION: MR cervical spine wo con DATE: 04/11/2021 08:10 INDICATION: Neck pain. TECHNIQUE: Magnetic resonance imaging (MRI) of the cervical spine was performed without intravenous c ontrast. Sequences included sagittal T2-weighted FSE, sagittal STIR FSE, sagittal T1-weighted FSE, ax ial MERGE, and axial T2-weighted FSE. COMPARISON: None FINDINGS: There is 7 degrees levocurvature of cervical spine. Vertebral body heights and intervertebr al disc heights are normal. The spinal cord signal intensity is normal. The following disc levels are specifically discussed: C2-C3: The disc does not extend beyond the endplate margin. There is no uncovertebral joint osteoarth ritis. There is mild bilateral facet joint osteoarthritis. There is no neural foraminal stenosis. The re is no central canal stenosis. C3-C4: The disc does not extend beyond the endplate margin. There is mild bilateral uncovertebral kylah nt osteoarthritis. There is moderate bilateral facet joint osteoarthritis. There is no neural foramin al stenosis. There is no central canal stenosis. C4-C5: The disc does not extend beyond the endplate margin. There is no uncovertebral joint osteoarth ritis. There is severe right facet joint osteoarthritis. There is no neural foraminal stenosis. There is no central canal stenosis. C5-C6: The disc does not extend beyond the endplate margin. There is no uncovertebral joint osteoarth ritis. There is mild right facet joint osteoarthritis. There is no neural foraminal stenosis. There i s no central canal stenosis. C6-C7: The disc does not extend beyond the endplate margin. There is no uncovertebral joint osteoarth ritis. There is no facet joint osteoarthritis. There is no neural foraminal stenosis. There is no arlet tral canal stenosis. C7-T1: The disc does not extend beyond the endplate margin. There is no uncovertebral joint osteoarth ritis. There is no facet joint osteoarthritis. There is no neural foraminal stenosis. There is no arlet tral canal stenosis. IMPRESSION: 1. Mild cervical spondylosis. Reviewed, dictated and finalized at location B.
--- NOTE | ~2021-04-11 | MR_ITS ---
EXAMINATION: MR lumbar spine wo con DATE: 04/11/2021 08:41 INDICATION: Low back pain. TECHNIQUE: Magnetic resonance imaging (MRI) of the lumbar spine was performed without intravenous con trast. Sequences included sagittal T2-weighted FSE, sagittal T2-weighted FS FSE, sagittal T1-weighted FSE, and axial T2-weighted FSE. COMPARISON: Lumbar spine MRI 06/12/2015 FINDINGS: There is 3 degrees levocurvature of lumbar spine. Vertebral body heights and intervertebral disc heights are normal. The distal spinal cord signal intensity is normal. The conus medullaris is at L2. The following disc levels are specifically discussed: L1-L2: The disc does not extend beyond the endplate margin. There is no facet joint osteoarthritis. T here is no neural foraminal stenosis. There is no central canal stenosis. L2-L3: The disc does not extend beyond the endplate margin. There is mild right and severe left facet joint osteoarthritis. There is no neural foraminal stenosis. There is no central canal stenosis. L3-L4: The disc does not extend beyond the endplate margin. There is mild right and moderate left fac et joint osteoarthritis. There is no neural foraminal stenosis. There is no central canal stenosis. L4-L5: The disc does not extend beyond the endplate margin. There is mild right and moderate left fac et joint osteoarthritis. There is no neural foraminal stenosis. There is no central canal stenosis. L5-S1: The disc does not extend beyond the endplate margin. There is moderate bilateral facet joint o steoarthritis. There is no neural foraminal stenosis. There is no central canal stenosis. IMPRESSION: 1. Mild lumbar spondylosis, stable from 06/12/2015. Reviewed, dictated and finalized at location B.
== END ==
PROVIDERS: Visit Provider Internal Medicine Rheumatology
DX: M47.817 Spondylosis without myelopathy or radiculopathy, lumbosacral region (principal); M47.812 Spondylosis without myelopathy or radiculopathy, cervical region
CPT/HCPCS: 72141; 72148

== ENCOUNTER 2021-05-12 12:36 | Emergency (ER) | payer MEDICARE, MEDICAID, SELFPAY ==
[2021-05-12] VITALS (9 sets, daily range): BP systolic 106–124; BP diastolic 72–79; PULSE 64–75; RESP 12–26; TEMP 36.4–36.6; O2SAT 99–100
--- NOTE | ~2021-05-12 | XR_ITS ---
EXAMINATION: XR chest 2V DATE: 05/12/2021 13:18 INDICATION: Shortness of breath and fatigue TECHNIQUE: PA and lateral views of the chest are obtained. COMPARISON: 01/13/2021 FINDINGS: The lungs are free of acute opacities. There is no pleural effusion or pneumothorax. The ca rdiomediastinal silhouette is normal. There is mild thoracic spondylosis. Bilateral breast implants a re noted. Surgical clips in the right upper quadrant are likely from prior cholecystectomy. IMPRESSION: 1. No acute cardiopulmonary abnormality. Reviewed, dictated and finalized at location A.
--- NOTE | 2021-05-12 12:58 | ECG_ITS ---
Measurements Intervals [place] Rate: 74 P: 48 NV: 168 QRS: 26 QRSD: 93 T: 22 QT: 378 QTc: 420 Interpretive Statements SINUS RHYTHM NONSPECIFIC T-WAVE ABNORMALITY- ANT/INF LEADS BORDERLINE ECG Electronically Signed On 05-12-2021 14:21:51 CDT by Luis Camarillo D.O.
[2021-05-12 13:12] LABS: Basophils Absolute Auto 0.1 K/mm3 (0.0-0.1); Basophils Percent Auto 0.9 % (0.2-1.2); Eosinophils Absolute Auto 0.1 K/mm3 (0-0.3); Hematocrit 48.7 % (37.0-47.0); Hemoglobin 16.3 g/dL (12.0-15.0); Immature Granulocyte Absolute 0.07 K/mm3 (0.00-0.031); Immature Granulocyte Percent A 0.7 % (0-0.5); Lymphocytes Absolute Auto 3.31 K/mm3 (0.9-3.2); Lymphocytes Percent Auto 33.3 % (18.3-44.2); Mean Corpuscular HGB Conc 33.5 g/dl (32-36); Mean Corpuscular Hemoglobin 32.6 pg (26-34); Mean Corpuscular Volume 97.4 fl (80-100); Mean Platelet Volume 10.3 fl (7.4-10.4); Monocytes Absolute Auto 0.6 K/mm3 (0.1-0.6); Monocytes Percent Auto 5.8 % (2.6-8.5); Neutrophils Absolute Auto 5.8 K/mm3 (1.3-6.7); Neutrophils Percent Auto 58.3 % (45.5-73.1); Platelet Count Result 263 k/mm3 (150-375); Red Cell Distribution Width 12.5 % (11.5-14.5); White Blood Count 9.9 K/mm3 (4.5-10.0)
[2021-05-12 13:24] LABS: Anion Gap 11 mmol/L (8-16); Blood Urea Nitrogen 7 mg/dL (7-17); Calcium 10.1 mg/dL (8.4-10.2); Carbon Dioxide 25 mmol/L (22-30); Chloride 108 mmol/L (98-107); Estimated CRCL calculation 78 ml/min; Estimated Glomerular Filt Rate > 60; Glucose 87 mg/dL (65-105); Potassium 3.8 mmol/L (3.4-5.0); Sodium 144 mmol/L (137-145)
[2021-05-12 13:58] LABS: Glucose Point of Care 59 mg/dl (65-105)
[2021-05-12 15:50] LABS: Add Urine Microscopic? NO; Appearance Urine Clear (Clear); Bilirubin Urine Negative (Negative); Blood Urine Negative (Negative); Color Urine Straw (Yellow); Glucose Urine UA Negative (Negative); Ketones Urine Negative (Negative); Leukocyte Esterase Ur Negative LEU/UL (Negative); Nitrate Urine Negative (Negative); Protein Urine Negative (Negative); Specific Grav Ur 1.005 (1.001-1.035); Urobilinogen Urine Negative mg/dL (<2.0)
[2021-05-12] MEDS: LORazepam INJ (*CRX) 2 MG/ML VIAL 1 MG IV PUSH (15:54)
[2021-05-12] MEDS: HYOSCYAMINE SULFATE 0.125 MG TABLET PO (15:54)
[2021-05-12] MEDS: PROMETHAZINE HCL 25 MG/ML AMPUL 12.5 MG IV PUSH (15:54)
[2021-05-12] MEDS: FAMOTIDINE 20 MG/2 ML VIAL IV PUSH (15:54)
[2021-05-12] MEDS: SODIUM CHLORIDE 0.9% IV 1,000 ML 999 ML IV CONT (15:54)
[2021-05-12 15:55] LABS: Prothrombin Time 13.7 Seconds (11.1-14.7)
--- NOTE | 2021-05-12 16:02 | PC.NURSE ---
Called lab @ [phone] to request add on of hepatic Lipase
[2021-05-12 16:06] LABS: Amphetamine Screen Urine Negative (Negative); Barbiturate Screen Urine Negative (Negative); Benzodiazepines Screen Urine Positive (Negative); Cannabinoid Screen Urine Positive (Negative); Cocaine Screen Urine Negative (Negative); Methadone Screen Urine Negative (Negative); Opiate Screen Urine Negative (Negative); Phencyclidine Screen Urine Negative (Negative)
[2021-05-12 16:06] LABS: Alanine Aminotransferase 31 U/L (4-35); Albumin Level 4.7 g/dL (3.5-5.1); Alkaline Phosphatase 50 U/L (38-126); Aspartate Amino Transferase 42 U/L (14-36); Bilirubin,Total 0.3 mg/dL (0.2-1.3); Lipase 207 U/L (23-300)
--- NOTE | 2021-05-12 16:40 | ED.SOB ---
HPI - SOB/Dyspnea General Chief Complaint: Shortness of Breath/Dyspnea Stated Complaint: Lightheaded/ SOB/Tired Time Seen by Provider: 05/12/21 15:03 Source: patient and RN notes reviewed Mode of arrival: ambulatory Limitations: no limitations History of Present Illness HPI Narrative: Patient is a 41-year-old female who presents with multiple complaints noting fatigue shortness of breath and abdominal pain for the last 3 days she notes that she had had recent pancreatitis was in the hospital and has been doing fine patient denies any recent URI symptoms or other complaints and on arrival does not appear uncomfortable or distressed patient lives at home with her daughter presents with a friend denies any sick contacts or other complaints is noted patient notes that she has been compliant with all of her medication Related Data Home Medications Medication Instructions Recorded Confirmed dextroamphetamine-amphetamine 30 mg PO DAILY 09/20/19 09/15/20 ergocalciferol (vitamin D2) 1,250 1,250 mcg PO .1XW cap 03/27/20 05/22/20 mcg (50,000 unit) capsule ferrous sulfate 325 mg (65 mg 325 mg PO DAILY tablet 03/27/20 05/22/20 iron) tablet rosuvastatin 20 mg tablet 20 mg PO DAILY tablet 03/27/20 09/15/20 folic acid 1 mg tablet 1 mg PO DAILY 04/24/20 09/15/20 quetiapine 300 mg tablet 400 mg PO HS tablet 05/01/20 09/15/20 rivaroxaban 20 mg tablet 20 mg PO DAILY 05/01/20 09/15/20 cariprazine 4.5 mg capsule 4.5 mg PO DAILY 05/22/20 09/15/20 esketamine 28 mg nasal spray 56 mg NASAL 2XW 05/22/20 05/22/20 norethindrone (contraceptive) 0.35 0.35 mg PO DAILY tablet 05/22/20 05/22/20 mg tablet aspirin 325 mg PO DAILY 05/26/20 09/15/20 alprazolam [Xanax] 2 mg PO BID 09/15/20 09/15/20 propranolol 20 mg PO QPM 09/15/20 09/15/20 Allergies Allergy/AdvReac Type Severity Reaction Status Date / Time amoxicillin Allergy Intermediate Rash Verified 09/15/20 13:15 azithromycin Allergy Intermediate Hives Verified 09/15/20 13:15 cephalexin Allergy Intermediate Hives / Verified 09/15/20 13:15 Red Face eluxadoline Allergy Intermediate Unknown Verified 09/15/20 13:15 levofloxacin Allergy Intermediate rash Verified 09/15/20 13:15 Penicillins Allergy Intermediate rash Verified 09/15/20 13:15 prednisone Allergy Intermediate Rash Verified 09/15/20 13:15 tramadol Allergy Intermediate Unknown Verified 09/15/20 13:15 trifluoperazine Allergy Intermediate sick Verified 09/15/20 13:15 clavulanic acid Allergy Mild Rash Verified 09/15/20 13:15 [From Augmentin] pregabalin [From Lyrica] Allergy Stopped Verified 09/15/20 13:15 Breathing sulfamethoxazole Allergy Rash Verified 02/25/21 19:53 [From Bactrim] trimethoprim [From Bactrim] Allergy Rash Verified 02/25/21 19:53 ropinirole AdvReac Severe parkinsons Verified 09/15/20 13:15 like symptoms Review of Systems Review of Systems: All systems reviewed & are unremarkable except as noted in HPI and below PMFSH Past Medical History Medical History (Updated 05/12/21 @ 17:13 by Zoran Danielle PA-C) Anemia Angina at rest Anxiety Arthritis Asthma Bipolar disorder Bronchitis Chronic pain Cyst LUE, removed Dementia Depression Eczema Endometriosis Fibromyalgia GERD (gastroesophageal reflux disease) Gestational diabetes HLD (hyperlipidemia) Hypokalemia IBS (irritable bowel syndrome) Infertility Kidney stone Knee fracture, left Liver disease Lupus (systemic lupus erythematosus) MTHFR gene mutation Ovarian cyst Pelvic floor dysfunction Pericardial effusion Pericarditis Pneumonia Previous known suicide attempt PUD (peptic ulcer disease) Schizoaffective disorder Urolithiasis UTI (urinary tract infection) Surgical History Surgical History Cholecystectomy planned H/O breast augmentation H/O: hysterectomy History of gynecologic surgery Related to endometriosis, x3 Family History Family History (Reviewed
[2021-05-12] MEDS: ONDANSETRON INJ 4 MG/2 ML VIAL IV PUSH (17:35)
== END 2021-05-12 17:37 | disposition home or self-care (01) ==
PROVIDERS: Emergency Medicine; Emergency Medicine Emergency Medical Services; Emergency Provider Emergency Medicine; PCP Internal Medicine
DX: R42 Dizziness and giddiness (principal); R10.9 Unspecified abdominal pain; J45.909 Unspecified asthma, uncomplicated; F03.90 Unspecified dementia, unspecified severity, without behavioral disturbance, psychotic disturbance, mood disturbance, and anxiety; E78.5 Hyperlipidemia, unspecified; K21.9 Gastro-esophageal reflux disease without esophagitis; K58.9 Irritable bowel syndrome, unspecified; M32.9 Systemic lupus erythematosus, unspecified; M79.7 Fibromyalgia; M19.90 Unspecified osteoarthritis, unspecified site; E72.12 Methylenetetrahydrofolate reductase deficiency; F31.9 Bipolar disorder, unspecified; F41.9 Anxiety disorder, unspecified; F17.210 Nicotine dependence, cigarettes, uncomplicated; Z87.01 Personal history of pneumonia (recurrent); Z87.11 Personal history of peptic ulcer disease; Z87.442 Personal history of urinary calculi; Z87.440 Personal history of urinary (tract) infections; Z79.01 Long term (current) use of anticoagulants; Z79.82 Long term (current) use of aspirin; R94.31 Abnormal electrocardiogram [ECG] [EKG]
CPT/HCPCS: 36415; 71046; 80048; 80076; 80307; 81003; 82948; 83690; 85025; 85610; 85730; 93005; 96361; 96374; 96375; 99284; A9270; J2060; J2405; J2550; J7030

== ENCOUNTER 2021-06-16 17:09 | Outpatient (CLI) | payer MEDICARE, MEDICAID, SELFPAY ==
--- NOTE | ~2021-06-16 | MM_ITS ---
EXAMINATION: MM diag lalit implant BI w prasanna HISTORY: Bilateral inferior breast pain TECHNIQUE: ML, MLO and craniocaudal 3-D tomosynthesis implant displaced images of both breasts were p erformed and synthetic 2-D images were generated. Implant MLO and CC views. CAD analysis was submitte d and interpreted. COMPARISON: 06/04/2020diagnostic right mammogram and limited right breast ultrasound examination 05/06/2020 bilateral implant digital screening mammogram BREAST PARENCHYMAL COMPOSITION: The breasts are heterogeneously dense, which may obscure small masses . FINDINGS: Status post bilateral augmentation mammoplasty. There is asymmetry in the outer left breast on craniocaudal projection and at the mid and lower left breast on implant MLO view. Diagnostic left mammogram is recommended. Otherwise no suspicious mass, architectural distortion, malignant calcification, skin thickening or r etraction is evident. Given the indication of bilateral breast pain and bilateral heterogeneously dense stroma which may ob scure masses, consider bilateral breast ultrasound examination. IMPRESSION: 1. Left mammographic asymmetries; recommend diagnostic left mammogram 2. Heterogeneously dense stroma which may obscure masses and bilateral breast pain; consider bilatera l breast ultrasound examination BI-RADS Category 0: Incomplete: Needs additional imaging evaluation. Reviewed, dictated and finalized at location A. IMPRESSION: 1. Left mammographic asymmetries; recommend diagnostic left mammogram 2. Heterogeneously dense stroma which may obscure masses and bilateral breast p ain; consider bilateral breast ultrasound examination BI-RADS Category 0: Incomplete: Needs additional imaging evaluation.
== END 2021-06-16 17:10 | disposition home or self-care (01) ==
PROVIDERS: PCP Internal Medicine; Visit Provider Nurse Practitioner Obstetrics & Gynecology
DX: Z12.31 Encounter for screening mammogram for malignant neoplasm of breast (principal); N64.4 Mastodynia; R92.8 Other abnormal and inconclusive findings on diagnostic imaging of breast
CPT/HCPCS: 77062; 77066; G0279

== ENCOUNTER 2021-07-22 18:08 | Outpatient (CLI) | payer MEDICARE, MEDICAID, SELFPAY ==
--- NOTE | ~2021-07-22 | XR_ITS ---
EXAMINATION: XR chest 2V DATE: 07/22/2021 18:21 INDICATION: Bronchitis. Cough. TECHNIQUE: Frontal and lateral views of the chest were obtained. COMPARISON: Chest 2 views 05/12/2021 FINDINGS: The chest demonstrates clear lungs without pneumonia, pleural effusion, or pneumothorax. Th e heart size is normal. Surgical clips in the right upper quadrant are likely from cholecystectomy. IMPRESSION: 1. No acute cardiopulmonary disease. Reviewed, dictated and finalized at location A.
== END 2021-07-22 18:09 | disposition home or self-care (01) ==
LOC: ANHIMG 18:11
PROVIDERS: PCP Internal Medicine; Visit Provider Internal Medicine
DX: J40 Bronchitis, not specified as acute or chronic (principal); R05 Cough; F17.200 Nicotine dependence, unspecified, uncomplicated
CPT/HCPCS: 71046

== ENCOUNTER 2021-07-29 11:57 | Outpatient (CLI) | payer MEDICARE, MEDICAID, SELFPAY ==
--- NOTE | ~2021-07-29 | MMUS_ITS ---
EXAMINATION: MM diag lalit implant LT w prasanna, US breast BI limited HISTORY: History of bilateral lower breast pain TECHNIQUE: Craniocaudal, mediolateral, and mediolateral oblique 3-D tomosynthesis images with implant displacement of the left breast were performed and synthetic 2-D images were generated. CAD analysi s was submitted and interpreted. High resolution limited bilateral breast ultrasound was performed. COMPARISON: 06/06/2021, 05/06/2020 BREAST PARENCHYMAL COMPOSITION: The breasts are heterogeneously dense, which may obscure small masses . FINDINGS: MAMMOGRAPHIC FINDINGS: There is no evidence of suspicious mass, calcification, or architectural distortion malignancy. There has been no suspicious interval change. No mammographic correlate is identified for the reporte d breast pain. ULTRASOUND: There is no evidence of focal abnormal solid or cystic lesion in the vicinity of the patient's report ed breast pain in either breast. IMPRESSION: 1. No specific mammographic or sonographic correlate is identified for the patient's reported breast pain. Further evaluation at this time should be based on clinical assessment. Continued follow-up phy sical examination is recommended. 2. Recommend routine screening mammography in one year. BI-RADS Category 1: Negative Reviewed, dictated and finalized at location B. IMPRESSION: 1. No specific mammographic or sonographic correlate is identified for the rob ent's reported breast pain. Further evaluation at this time should be based on clinical assessment. Continued follow-up physical examination is recommended. 2. Recommend routine screening mammography in one year. BI-RADS Category 1: Negative
== END 2021-07-29 11:58 | disposition home or self-care (01) ==
LOC: ANHIMG 11:58
PROVIDERS: PCP Internal Medicine; Visit Provider Nurse Practitioner Obstetrics & Gynecology
DX: R92.8 Other abnormal and inconclusive findings on diagnostic imaging of breast (principal)
CPT/HCPCS: 76642; 77061; 77065; G0279

== ENCOUNTER 2021-10-23 10:00 | Outpatient (CLI) | payer MEDICARE, MEDICAID, SELFPAY ==
--- NOTE | ~2021-10-23 | XR_ITS ---
EXAMINATION: XR chest 2V 10/23/2021 10:22 INDICATION: Bronchitis. Cough. PROCEDURE: 2 view chest COMPARISON: Comparison to multiple prior studies sequentially, with oldest reviewed study dated 08/20. FINDINGS: The lungs are clear. The cardiomediastinal silhouette is within normal limits. There are no pleural effusions. There is no pneumothorax suspected. IMPRESSION: 1: NO ACUTE CARDIOPULMONARY DISEASE. Reviewed, dictated and finalized at location A. WRITER
== END 2021-10-23 10:01 | disposition home or self-care (01) ==
PROVIDERS: PCP Internal Medicine; Visit Provider Internal Medicine
DX: J40 Bronchitis, not specified as acute or chronic (principal)
CPT/HCPCS: 71046

== ENCOUNTER 2021-12-02 11:11 | Outpatient (CLI) | payer MEDICARE, MEDICAID, SELFPAY ==
--- NOTE | ~2021-12-02 | XR_ITS ---
EXAMINATION: XR hand RT 2V, XR hand LT 2V EXAM DATE: 12/02/2021 11:53 INDICATION: Polyarthralgia, bilateral hand pain. TECHNIQUE: Frontal and lateral projections of the right hand. Frontal and lateral projections left h and. Comparison is made to prior examination from 03/18/2021. FINDINGS: There are no bony erosions identified. The joints are symmetric There are no acute hand fra ctures or dislocations identified. There is no subcutaneous gas. The soft tissue is unremarkable. There are no radiopaque foreign bodies. IMPRESSION: 1. Unremarkable right, left two-view hand exams. Reviewed, dictated and finalized at location A. H CUTTER IMPRESSION: 1. Unremarkable right, left two-view hand exams.
--- NOTE | ~2021-12-02 | XR_ITS ---
EXAMINATION: XR sacroiliac joints min 3V EXAM DATE: 12/02/2021 11:53 INDICATION: Polyarthralgia. Sacroiliac pain. TECHNIQUE: Sacroiliac frontal and bilateral oblique projections. There is no prior study for compar luis. FINDINGS: Mild bilateral sacroiliac joint primary osteoarthritis. There are no bony erosions identif ied. There are no acute fractures or dislocations identified. There is no subcutaneous gas. The sof t tissue is unremarkable. There are no radiopaque foreign bodies. IMPRESSION: Mild bilateral sacroiliac osteoarthritis. Reviewed, dictated and finalized at location A. 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
--- NOTE | ~2021-12-02 | XR_ITS ---
EXAMINATION: XR knee RT 3V DATE: 12/02/2021 11:53 INDICATION: Polyarthralgia. TECHNIQUE: 3 views of right knee standing were obtained. COMPARISON: Right knee radiographs 03/18/2021 FINDINGS: Bone alignment is normal. No fracture. Joint spaces are well maintained. There is no knee j oint effusion. IMPRESSION: 1. Normal right knee. Reviewed, dictated and finalized at location B. ING WHEEL RAKER IMPRESSION: 1. Normal right knee.
== END 2021-12-02 11:12 | disposition home or self-care (01) ==
LOC: ANHIMG 11:16
PROVIDERS: PCP Internal Medicine; Visit Provider Physician Assistant
DX: M47.818 Spondylosis without myelopathy or radiculopathy, sacral and sacrococcygeal region (principal)
CPT/HCPCS: 72202; 73120; 73562

== ENCOUNTER 2021-12-31 10:04 | Outpatient (CLI) | payer MEDICARE, MEDICAID, SELFPAY ==
--- NOTE | ~2021-12-31 | US_ITS ---
EXAMINATION: US soft tissue head and neck DATE: 12/31/2021 10:40 INDICATION: Localized swelling, mass, or lump of neck. TECHNIQUE: Multiple grayscale and Doppler ultrasound images of the neck were obtained. COMPARISON: None FINDINGS: There are normal lymph nodes in right neck in the patient's area of concern. IMPRESSION: 1. Normal lymph nodes in right neck in the patient's area of concern. Reviewed, dictated and finalized at location E. IC AID ELIGIBILITY ASSISTANT
== END 2021-12-31 10:05 | disposition home or self-care (01) ==
PROVIDERS: PCP Internal Medicine; Visit Provider Internal Medicine
DX: R22.1 Localized swelling, mass and lump, neck (principal)
CPT/HCPCS: 76536

== ENCOUNTER 2022-08-31 18:51 | Inpatient (IN) | payer MEDICARE, MEDICAID, SELFPAY ==
[2022-08-31] VITALS (21 sets, daily range): BP systolic 111–123; BP diastolic 78–96; PULSE 99; RESP 20; TEMP 36.3; O2SAT 97–100
--- NOTE | ~2022-08-31 | XR_ITS ---
EXAMINATION: XR chest 1V portable DATE: 09/04/2022 09:01 INDICATION: Chest pain. TECHNIQUE: A single frontal view of the chest was obtained. COMPARISON: Chest 2 views 10/23/2021, CT abdomen and pelvis 08/31/2022 FINDINGS: There is no pneumonia, pleural effusion, or pneumothorax. The heart size is normal. IMPRESSION: 1. No acute cardiopulmonary disease. Reviewed, dictated and finalized at location A.
--- NOTE | ~2022-08-31 | XR_ITS ---
EXAMINATION: XR abdomen/kub 1V DATE: 09/04/2022 09:01 INDICATION: Abdominal pain. TECHNIQUE: A supine view of the abdomen was obtained. COMPARISON: CT abdomen and pelvis 08/31/2022 FINDINGS: There are no dilated loops of bowel. There is a paucity of stool in the colon. Surgical cli ps in the right upper quadrant are likely from cholecystectomy. IMPRESSION: 1. Normal bowel gas pattern. Reviewed, dictated and finalized at location A.
--- NOTE | ~2022-08-31 | MR_ITS ---
EXAMINATION: MR MRCP wo/w con/w 3D wo ind DATE: 09/05/2022 15:34 INDICATION: Right upper quadrant abdominal pain. Elevated liver function tests. TECHNIQUE: Magnetic resonance imaging (MRI) of the abdomen was performed without and with 13 mL Multi jb intravenous contrast. Sequences included coronal T2-weighted SS-FSE, coronal T2-weighted FS SS- FSE, coronal T2-weighted FS FIESTA, axial T2-weighted FS FIESTA, axial T2-weighted FIESTA, sagittal T 2-weighted SS-FSE, axial T1-weighted dual-echo FSPGR, axial T2-weighted SS-FSE, axial T1-weighted LAV A, axial T2-weighted STIR FSE. Thick-slab T2-weighted FRFSE-XL images were obtained for magnetic reso nance cholangiopancreatography (MRCP). Rotating maximum intensity projection 3-D reconstructions of t he volumetric data were created by the technologist. Postcontrast sequences included a time course of axial T1-weighted LAVA. COMPARISON: None. FINDINGS: ABDOMEN MRI: Heart size is normal. No pericardial or pleural effusion. Bilateral breast implants. Hepatomegaly wit h prominent diffuse hepatic steatosis with signal dropout on opposed phase imaging. Gallbladder is no t visualized and likely surgically absent. Pancreas, spleen and bilateral adrenal glands are normal. Bilateral nonenhancing T2 hyperintense renal cysts the largest on the right measuring 1.1 cm maximal diameter. Visualized portion of the bowels are unremarkable. No pathologically enlarged abdominal lym phadenopathy. Visualized bones are unremarkable with normal marrow signal throughout. ABDOMEN MRCP: The common bile duct measures 4 mm diameter which is normal. No intrahepatic biliary ductal dilation. IMPRESSION: 1. Hepatomegaly with diffuse hepatic steatosis. 2. Status post cholecystectomy. No intra or extrahepatic biliary ductal dilation. Reviewed, dictated and finalized at location A. IMPRESSION: 1. Hepatomegaly with diffuse hepatic steatosis. 2. Status post cholecystectomy. No intra or extrahepatic biliary ductal dilatio n.
--- NOTE | ~2022-08-31 | CT_ITS ---
EXAMINATION: CT abdomen pelvis w con DATE: 08/31/2022 22:53 INDICATION: vomiting TECHNIQUE: Computed tomography (CT) of the abdomen and pelvis was performed with 100 mL Omnipaque-350 intravenous contrast. Automated exposure control and iterative reconstruction technique were employe d. The dose-length product was 394.44 mGy-cm. COMPARISON: 02/25/2021. FINDINGS: Lower thorax: Bilateral breast augmentation. Liver: Enlarged. Diffuse fatty infiltration. Biliary/Gallbladder: Gallbladder is absent. No bile duct dilation. Pancreas: No mass or duct dilation. Spleen: Normal. Adrenals:No mass. Kidneys: Right upper pole cyst. Bilateral hypodensities that are too small to characterize. No suspic ious mass. No hydronephrosis. No obstructing calcification. GI tract: Distal esophageal and gastric wall edema. No small or large bowel dilation. Normal appendix . Fluid-filled colon. Mesentery/Peritoneum: No ascites, mass, or free air. Retroperitoneum: No mass. Atherosclerotic abdominal aortic and/or arterial calcifications. Pelvis: The bladder is partially decompressed, with wall thickening. The uterus is absent. Soft Tissues: Soft tissues and body wall unremarkable. Bones: No acute osseous finding. IMPRESSION: Hepatomegaly and steatosis. Esophagitis/gastritis. Fluid-filled colon, as can be seen with diarrheal illness. Bladder wall thickening which may be secondary to cystitis or incomplete distention. Reviewed, dictated and finalized at location K. IMPRESSION: Hepatomegaly and steatosis. Esophagitis/gastritis. Fluid-filled colon, as can b e seen with diarrheal illness. Bladder wall thickening which may be secondary t o cystitis or incomplete distention.
--- NOTE | 2022-08-31 19:42 | PC.NURSE ---
Dr. Galdamez at bedside to assess pt.
[2022-08-31] MEDS: ONDANSETRON INJ 4 MG/2 ML VIAL IV PUSH (20:03)
[2022-08-31] MEDS: SODIUM CHLORIDE 0.9% IV 1,000 ML 999 ML IV CONT (20:03)
[2022-08-31] MEDS: DICYCLOMINE HCL INJ 20 MG/2 ML VIAL IM (20:03)
[2022-08-31 20:12] LABS: Basophils Absolute Auto 0.1 K/mm3 (0.0-0.1); Basophils Percent Auto 0.8 % (0.2-1.2); Eosinophils Absolute Auto 0.1 K/mm3 (0-0.3); Eosinophils Percent Auto 0.7 % (0-4.4); Hematocrit 44.7 % (37.0-47.0); Hemoglobin 16.2 g/dL (12.0-15.0); Immature Granulocyte Absolute 0.13 K/mm3 (0.00-0.031); Immature Granulocyte Percent A 0.8 % (0-0.5); Lymphocytes Absolute Auto 4.19 K/mm3 (0.9-3.2); Lymphocytes Percent Auto 25.3 % (18.3-44.2); Mean Corpuscular HGB Conc 36.2 g/dl (32-36); Mean Corpuscular Hemoglobin 33.3 pg (26-34); Mean Platelet Volume 10.8 fl (7.4-10.4); Monocytes Absolute Auto 1.3 K/mm3 (0.1-0.6); Monocytes Percent Auto 7.7 % (2.6-8.5); Neutrophils Absolute Auto 10.7 K/mm3 (1.3-6.7); Neutrophils Percent Auto 64.7 % (45.5-73.1); Platelet Count Result 327 k/mm3 (150-375); Red Blood Count 4.86 M/mm3 (4.2-5.4); Red Cell Distribution Width 12.2 % (11.5-14.5); White Blood Count 16.6 K/mm3 (4.5-10.0)
[2022-08-31 20:18] LABS: Add Urine Microscopic? YES; Appearance Urine Cloudy (Clear); Bacteria Urine Trace /hpf; Bilirubin Urine Negative (Negative); Blood Urine Negative (Negative); Color Urine Amber (Yellow); Glucose Urine UA Negative (Negative); Ketones Urine Trace mg/dL (Negative); Leukocyte Esterase Ur Trace LEU/UL (Negative); Mucus Urine Heavy /lpf; Nitrate Urine Negative (Negative); Protein Urine 1+ mg/dL (Negative); RBC Urine 0-2 /hpf (0-2); Squamous Epithelial Cell Urine Many /hpf (Few); Urobilinogen Urine Negative mg/dL (<2.0); WBC Urine 0-3 /hpf
[2022-08-31 20:28] LABS: Alanine Aminotransferase 56 U/L (6-35); Albumin Level 4.7 g/dL (3.5-5.1); Alkaline Phosphatase 101 U/L (38-126); Anion Gap 19 mmol/L (8-16); Aspartate Amino Transferase 75 U/L (14-36); Blood Urea Nitrogen 5 mg/dL (7-17); Calcium 9.6 mg/dL (8.4-10.2); Carbon Dioxide 22 mmol/L (22-30); Chloride 95 mmol/L (98-107); Estimated CRCL calculation 66 ml/min; Estimated Glomerular Filt Rate > 60; Glucose 157 mg/dL (65-110); Lipase 100 U/L (23-300); Potassium 2.3 mmol/L (3.4-5.0); Sodium 136 mmol/L (137-145)
--- NOTE | 2022-08-31 21:03 | PC.NURSE ---
Pharmacy contacted for IV potassium.
[2022-08-31] MEDS: KCL 20 MEQ/SW 100 ML 100 ML 50 MEQ IVPB (21:27)
[2022-08-31] MEDS: POTASSIUM CHLORIDE 20 MEQ TABLET 40 MEQ PO (21:36)
--- NOTE | 2022-08-31 21:39 | PC.NURSE ---
Patient reports intolerable pain in her left arm due to the potassium infusion. Patient asked if potassium could be stopped. Rate decreased to 25 ml/hr and patient tolerating infusion at this time.
--- NOTE | 2022-08-31 23:25 | ED.NAVMDI ---
HPI - Nausea/Vomiting/Diarrhea General Chief complaint: Nausea/Vomiting/Diarrhea Stated complaint: n/v x 3 days Time Seen by Provider: 08/31/22 19:24 History of Present Illness HPI Narrative: Patient is a 42-year-old female who presents ER with GI illness. She has had nausea and vomiting as well as diarrhea for the last 3 days. She has been on Flagyl. Has history of IBS but is also had some infectious colitis. Currently has stool studies that are pending through [facility]. Patient is scheduled for follow-up with Dr. Miramontes for colonoscopy and EGD. No blood in stool. No aggravating or alleviating factors. Related Data Home Medications Medication Instructions Recorded Confirmed dextroamphetamine-amphetamine ER 30 mg PO DAILY 09/20/19 09/01/22 30 mg 24hr capsule,extend release folic acid 1 mg tablet 1 mg PO DAILY 04/24/20 09/01/22 rivaroxaban 20 mg tablet (Xarelto) 20 mg PO DAILY 05/01/20 09/01/22 aspirin 325 mg tablet 325 mg PO DAILY 05/26/20 09/01/22 aluminum-mag hydroxide-simethicone 10 ml PO Q6H PRN Heartburn 09/01/22 09/01/22 200 mg-200 mg-20 mg/5 mL oral susp (Antacid Liquid) cariprazine 6 mg capsule (Vraylar) 6 mg PO DAILY 09/01/22 09/01/22 cyanocobalamin (vitamin B-12) 1,000 mcg subcut ONCE 09/01/22 09/01/22 1,000 mcg/mL injection solution (Dodex) dicyclomine 10 mg capsule 10 mg PO BID 09/01/22 09/01/22 diphenoxylate-atropine 2.5 1 tablet PO TID PRN Diarrhea 09/01/22 09/01/22 mg-0.025 mg tablet glipizide 5 mg tablet 5 mg PO BID 09/01/22 09/01/22 haloperidol 2 mg tablet 2 mg PO HS 09/01/22 09/01/22 lamotrigine 25 mg tablet,extended 25 mg PO DAILY 09/01/22 09/01/22 release 24 hr oxycodone-acetaminophen 7.5 mg-325 1 tablet PO Q4H PRN Pain (Scale 09/01/22 09/01/22 mg tablet Score 7-10) quetiapine 100 mg tablet 100 mg PO HS 09/01/22 09/01/22 Allergies Allergy/AdvReac Type Severity Reaction Status Date / Time amoxicillin Allergy Intermediate Rash Verified 08/31/22 19:10 azithromycin Allergy Intermediate Hives Verified 08/31/22 19:10 cephalexin Allergy Intermediate Hives / Verified 08/31/22 19:10 Red Face eluxadoline Allergy Intermediate Unknown Verified 08/31/22 19:10 levofloxacin Allergy Intermediate rash Verified 08/31/22 19:10 Penicillins Allergy Intermediate rash Verified 08/31/22 19:10 prednisone Allergy Intermediate Rash Verified 08/31/22 19:10 tramadol Allergy Intermediate Unknown Verified 08/31/22 19:10 trifluoperazine Allergy Intermediate sick Verified 08/31/22 19:10 clavulanic acid Allergy Mild Rash Verified 08/31/22 19:10 [From Augmentin] pregabalin [From Lyrica] Allergy Stopped Verified 08/31/22 19:10 Breathing sulfamethoxazole Allergy Rash Verified 08/31/22 19:10 [From Bactrim] trimethoprim [From Bactrim] Allergy Rash Verified 08/31/22 19:10 ropinirole AdvReac Severe parkinsons Verified 08/31/22 19:10 like symptoms Review of Systems Review of Systems: All systems reviewed & are unremarkable except as noted in HPI and below Constitutional: Constitutional: Denies chills, Denies fatigue and Denies fever(s) ENT: Denies dysphagia and Denies sore throat Cardiovascular: Cardiovascular: Denies chest pain, Denies rapid heart rate and Denies radiating jaw, neck or arm pain Respiratory: Respiratory: Denies cough and Denies dyspnea Gastrointestinal: Gastrointestinal: Reports abdominal pain, Reports diarrhea, Reports nausea and Reports vomiting Genitourinary: Genitourinary: Denies dysuria and Denies flank pain PMFSH Past Medical History Medical History (Updated 09/01/22 @ 07:14 by Mickey Galdamez MD) Anemia Angina at rest Anxiety Arthritis Asthma Bipolar disorder Bronchitis Chronic pain Cyst LUE, removed Dementia Depression Diarrhea Eczema Endometriosis Fibromyalgia GERD (gastroesophageal reflux disease) Gestational diabetes HLD (hyperlipidemia) Hypokalemia IBS (irritable bowel syndrome) Infertility Kidney stone Knee fracture, l
[2022-08-31] MEDS: FAMOTIDINE 20 MG/2 ML VIAL IV PUSH (23:46)
[2022-09-01] VITALS (25 sets, daily range): BP systolic 76–116; BP diastolic 41–72; PULSE 62–81; RESP 16–26; TEMP 36.2–36.3; O2SAT 96–100; BMI 25.6
[2022-09-01 00:20] LABS: Anion Gap 9 mmol/L (8-16); Blood Urea Nitrogen 5 mg/dL (7-17); Calcium 8.3 mg/dL (8.4-10.2); Carbon Dioxide 24 mmol/L (22-30); Chloride 99 mmol/L (98-107); Estimated CRCL calculation 75 ml/min; Estimated Glomerular Filt Rate > 60; Glucose 125 mg/dL (65-110); Potassium 2.5 mmol/L (3.4-5.0); Sodium 132 mmol/L (137-145)
--- NOTE | 2022-09-01 01:04 | PC.NURSE ---
IV Potassium infusion stopped with 30 mls left to infuse as patient unable to tolerate. Crying out in pain and demanding infusion to be stopped. made aware.
[2022-09-01] MEDS: ONDANSETRON INJ 4 MG/2 ML VIAL IV PUSH ×4 (01:26→19:39)
--- NOTE | 2022-09-01 01:33 | PM.IMHP ---
H&P: HPI History of Present Illness Date/Time: 09/01/22 01:33 Chief Complaint: 42 years old female with past medical history of esophageal stricture status post dilatation follow-up with GI for nausea and vomiting and diarrhea was recently diagnosed with colitis and possible plan for EGD and colonoscopy patient presented to the hospital with nausea vomiting and diarrhea started 3 days ago worsening gradually aggravated by food associated with generalized abdominal pain dull in nature at the ER CT scan confirmed colitis also patient has hypokalemia patient was admitted to the hospital for evaluation of and treatment of hypokalemia and diverticulitis GI will be consulted discussed with the ER Review of Systems Review of Systems: Twelve system review was done was negative [facility] Past Medical History Medical History (Updated 08/26/22 @ 17:48 by Nancy Knutson APN-Shae) Anemia Angina at rest Anxiety Arthritis Asthma Bipolar disorder Bronchitis Chronic pain Cyst LUE, removed Dementia Depression Diarrhea Eczema Endometriosis Fibromyalgia GERD (gastroesophageal reflux disease) Gestational diabetes HLD (hyperlipidemia) Hypokalemia IBS (irritable bowel syndrome) Infertility Kidney stone Knee fracture, left Liver disease Lupus (systemic lupus erythematosus) MTHFR gene mutation Nausea and vomiting Ovarian cyst Pelvic floor dysfunction Pericardial effusion Pericarditis Pneumonia Previous known suicide attempt PUD (peptic ulcer disease) Right lower quadrant abdominal pain Schizoaffective disorder Urolithiasis UTI (urinary tract infection) Surgical History Surgical History Cholecystectomy planned H/O breast augmentation H/O: hysterectomy History of gynecologic surgery Related to endometriosis, x3 Family History Family History Grandparent Family history of coronary artery disease Father Family history of diabetes mellitus in first degree relative Diabetes mellitus Asthma Family history of arthritis Sibling Asthma Mother Family history of arthritis Social History Social History Smoking packs per day: 1 Smoking cigarettes per day: 20.0 Smoking status: Heavy tobacco smoker Second hand tobacco smoke exposure: Yes Alcohol intake: never Substance use: current Substance use type: marijuana Gender identity (if verbalized by the patient): Female Sexual Orientation (if Verbalized by the Patient): Straight or Heterosexual Meds Home Medications and Allergies Home Medications Medication Instructions Recorded Confirmed Type dextroamphetamine-amphetamine ER 30 mg PO DAILY 09/20/19 09/15/20 History 30 mg 24hr capsule,extend release albuterol sulfate 90 mcg/actuation 2 puff inhalation Q4-6H PRN 11/02/19 05/22/20 Rx aerosol inhaler (ProAir HFA) shortness of breath or wheezing #1 device folic acid 1 mg tablet 1 mg PO DAILY 04/24/20 09/15/20 History rivaroxaban 20 mg tablet (Xarelto) 20 mg PO DAILY 05/01/20 09/15/20 History cariprazine 4.5 mg capsule 4.5 mg PO DAILY 05/22/20 09/15/20 History (Vraylar) esketamine 28 mg nasal spray 56 mg intranasal 2XW 05/22/20 05/22/20 History (Spravato) aspirin 325 mg tablet 325 mg PO DAILY 05/26/20 09/15/20 History propranolol 60 mg capsule,24 20 mg PO QPM 09/15/20 09/15/20 History hr,extended release famotidine 20 mg tablet (Pepcid) 20 mg PO BID #14 tabs 05/12/21 Rx hyoscyamine sulfate 0.125 mg 0.125 mg PO QID #7 tabs 05/12/21 Rx tablet (Levsin) ondansetron HCl 4 mg tablet 4 mg PO QID PRN nausea and 05/12/21 Rx (Zofran) vomiting #6 tabs metronidazole 500 mg tablet 500 mg PO Q8H 10 days #30 tabs 08/27/22 Rx sodium,potassium,mag sulfates 17.5 See Rx Instructions PO .COMPLEX 08/31/22 Rx gram-3.13 gram-1.6 gram oral soln #354 mL (Suprep Bowel Prep Kit) Allergies Al
[2022-09-01 02:14] LABS: Procalcitonin 0.2 ng/mL
[2022-09-01 02:16] LABS: Barbiturate Screen Urine Negative (Negative); Benzodiazepines Screen Urine Negative (Negative)
[2022-09-01] MEDS: metroNIDAZOLE 500 MG/ISO 100ML 500 MG/100 ML BAG 100 MG IVPB ×2 (02:21→21:15)
[2022-09-01] MEDS: PANTOPRAZOLE SODIUM IV 40 MG VIAL IV PUSH ×3 (02:21→16:02)
[2022-09-01] MEDS: SODIUM CHLORIDE 0.9% IV 1,000 ML 100 ML IV CONT ×2 (02:21→21:15)
[2022-09-01 02:28] LABS: Magnesium 1.5 mg/dL (1.6-2.3)
[2022-09-01 02:37] LABS: CRP 0.9 mg/dL (<1.0)
[2022-09-01 03:27] LABS: Lactic Acid Reflex 1.1 mmol/L (0.7-2.0)
--- NOTE | 2022-09-01 06:00 | ADMGEN ---
This patient, Mirian Bueno, was admitted to Medical Room 341-01. Patient/family oriented to hospital policies and general routines including ID bracelet, bed and alarms, visiting hours, pain management, procedures, bathroom and other care routines, personal items, smoking policy, room service/diet, and visiting hours. Information on how to activate the Rapid Response Team has been discussed. Patient/Family are encouraged to report perceived risks to care and to ask questions if they do not understand what they are told or what they should do.
[2022-09-01] MEDS: MORPHINE SULFATE (*CRX) 2 MG/ML INJ IV PUSH ×2 (06:16→16:29)
[2022-09-01 06:27] LABS: Basophils Absolute Auto 0.1 K/mm3 (0.0-0.1); Basophils Percent Auto 0.9 % (0.2-1.2); Eosinophils Absolute Auto 0.1 K/mm3 (0-0.3); Eosinophils Percent Auto 1.4 % (0-4.4); Hematocrit 37.5 % (37.0-47.0); Hemoglobin 13.3 g/dL (12.0-15.0); Immature Granulocyte Absolute 0.07 K/mm3 (0.00-0.031); Immature Granulocyte Percent A 0.7 % (0-0.5); Lymphocytes Absolute Auto 3.46 K/mm3 (0.9-3.2); Lymphocytes Percent Auto 36.2 % (18.3-44.2); Mean Corpuscular HGB Conc 35.5 g/dl (32-36); Mean Corpuscular Hemoglobin 33.3 pg (26-34); Mean Corpuscular Volume 93.8 fl (80-100); Mean Platelet Volume 10.8 fl (7.4-10.4); Monocytes Absolute Auto 0.8 K/mm3 (0.1-0.6); Monocytes Percent Auto 8.7 % (2.6-8.5); Neutrophils Percent Auto 52.1 % (45.5-73.1); Platelet Count Result 249 k/mm3 (150-375); Red Cell Distribution Width 12.2 % (11.5-14.5); White Blood Count 9.6 K/mm3 (4.5-10.0)
[2022-09-01 06:43] LABS: Alanine Aminotransferase 42 U/L (6-35); Albumin Level 3.3 g/dL (3.5-5.1); Alkaline Phosphatase 71 U/L (38-126); Anion Gap 8 mmol/L (8-16); Aspartate Amino Transferase 39 U/L (14-36); Bilirubin,Total 0.6 mg/dL (0.2-1.3); Blood Urea Nitrogen 5 mg/dL (7-17); Calcium 8.1 mg/dL (8.4-10.2); Carbon Dioxide 22 mmol/L (22-30); Chloride 105 mmol/L (98-107); Estimated CRCL calculation 75 ml/min; Estimated Glomerular Filt Rate > 60; Glucose 116 mg/dL (65-110); Potassium 2.6 mmol/L (3.4-5.0); Sodium 135 mmol/L (137-145)
[2022-09-01] MEDS: POTASSIUM CHLORIDE INJ 40 MEQ in SODIUM CHLORIDE 0.9% IV 500 ML 130 MEQ IVPB ×2 (06:45→15:55)
[2022-09-01 07:30] LABS: Hemoglobin A1C 6.5 % (<5.7)
--- NOTE | 2022-09-01 08:49 | WPDGICN ---
Assessment and Plan Assessment and plan (1) Nausea and vomiting: Code(s): R11.2 - Nausea with vomiting, unspecified Status: Acute Assessment and Plan: Severe nausea vomiting this last weekend. She has not had any blood in her emesis. (2) Diarrhea: Code(s): R19.7 - Diarrhea, unspecified Status: Acute Assessment and Plan: CT scan showed abnormalities in the area sigmoid descending colon. She has started on the antibiotics with metronidazole and she states she actually took 2 rounds of antibiotics. Colonoscopy may be necessary. (3) Right lower quadrant abdominal pain: Code(s): R10.31 - Right lower quadrant pain Status: Acute Assessment and Plan: Her pain this time is primarily in the right lower quadrant (4) Abnormal CT scan, gastrointestinal tract: Code(s): R93.3 - Abnormal findings on diagnostic imaging of other parts of digestive tract Status: Acute Assessment and Plan: CT scan shows: Hepatomegaly and steatosis. Esophagitis/gastritis. Fluid-filled colon, as can be seen with diarrheal illness. Bladder wall thickening which may be secondary to cystitis or incomplete distention. (5) Activated protein C resistance: Code(s): D68.51 - Activated protein C resistance Status: Acute Assessment and Plan: she has been off her medication for 5 days. Hopefully with a resolve her vomiting and nausea and get her back to eating a back on oral medications. (6) Dysphagia: Code(s): R13.10 - Dysphagia, unspecified Status: Acute Assessment and Plan: she has a history of having esophageal stricture dilated about 3 years ago and recently is having more difficulty with swallowing. EGD will be performed with possible dilatation. Plan EGD scheduled for today. GI Consult Note Consult date/time: 09/01/22 08:49 HPI: Mirian Bueno is a 42 year old female who was admitted hospital with severe nausea vomiting diarrhea. She has not been able to keep anything down since last Tuesday. That day she had protracted vomiting all day long. She has had abdominal discomfort which is somewhat generalized but particularly in the lower abdomen. She in fact has had recent CT scan that showed some nonspecific changes in the left side of the colon and she was treated with antibiotics, metronidazole for 10 days with no improvement. She states that her symptoms of nausea vomiting diarrhea actually began about 2 months ago. She has lost about 20 lb during th is period of time. She has had problems with swallowing in the past and had esophageal dilatation 3 years ago. She is having some recent hang up of food when she swallows. Because of her emesis, she has not kept any of her medication down for the past 5 days. One of the medications he takes is Xarelto because of antiphospholipid syndrome. Zofran which she has been taking at home and also receiving here help her for couple of hours Review of Systems Review of Systems: All systems reviewed & are unremarkable except as noted in HPI and below PMFSH Past Medical History Medical History Anemia Angina at rest Anxiety Arthritis Asthma Bipolar disorder Bronchitis Chronic pain Cyst LUE, removed Dementia Depression Diarrhea Eczema Endometriosis Fibromyalgia GERD (gastroesophageal reflux disease) Gestational diabetes HLD (hyperlipidemia) Hypokalemia IBS (irritable bowel syndrome) Infertility Kidney stone Knee fracture, left Liver disease Lupus (systemic lupus erythematosus) MTHFR gene mutation Nausea and vomiting Ovarian cyst Pelvic floor dysfunction Pericardial effusion Pericarditis Pneumonia Previous known suicide attempt PUD (peptic ulcer disease) Right lower quadrant abdominal pain Schizoaffective disorder Urolithiasis UTI (urinary tract infection) Surgical History Surgical History (Reviewed 09/01/22 @ 08:
[2022-09-01] MEDS: LACTATED RINGERS 1,000 ML 150 ML IV CONT (12:18)
[2022-09-01 12:22] LABS: Glucose Point of Care 106 mg/dl (65-105)
--- NOTE | 2022-09-01 12:44 | P.PNAN_ITS ---
Ur Blood (Man) Urine Nitrate Urine Bilirubin Urine Urobilinogen Leukocyte Esterase Rfl Urine RBC Urine WBC Ur Squamous Epith Cells Urine Bacteria Hyaline Casts Urine Mucus Urine Opiates Screen Pending Urine Methadone Screen Pending Ur Barbiturates Screen Negative (Negative) Ur Phencyclidine Scrn Pending Ur Amphetamine Screen Pending U Benzodiazepines Scrn Negative (Negative) Urine Cocaine Screen Pending U Cannabinoids Screen Pending 09/01/22 09/01/22 09/01/22 03:07 06:13 06:13 WBC 9.6 K/mm3 K/mm3 (4.5-10.0) RBC 4.00 M/mm3 L M/mm3 (4.2-5.4) Hgb 13.3 g/dL g/dL (12.0-15.0) Hct 37.5 % % (37.0-47.0) MCV 93.8 fl fl (80-100) MCH 33.3 pg pg (26-34) MCHC 35.5 g/dl g/dl (32-36) RDW 12.2 % % (11.5-14.5) Plt Count 249 k/mm3 k/mm3 (150-375) MPV 10.8 fl H fl (7.4-10.4) Immature Gran % (Auto) 0.7 % H % (0-0.5) Neut % (Auto) 52.1 % % (45.5-73.1) Lymph % (Auto) 36.2 % % (18.3-44.2) [place] % (Auto) 8.7 % H % (2.6-8.5) Eos % (Auto) 1.4 % % (0-4.4) Baso % (Auto) 0.9 % % (0.2-1.2) Lymph # (Auto) 3.46 K/mm3 H K/mm3 (0.9-3.2) [place] # (Auto) 0.8 K/mm3 H K/mm3 (0.1-0.6) Eos # (Auto) 0.1 K/mm3 K/mm3 (0-0.3) Baso # (Auto) 0.1 K/mm3 K/mm3 (0.0-0.1) Abs Immat Gran (auto) 0.07 K/mm3 H K/mm3 (0.00-0.031) Absolute Neuts (auto) 5.0 K/mm3 K/mm3 (1.3-6.7) Absolute Nucleated RBC 0.0 K/mm3 K/mm3 (0.0-0.012) Nucleated RBC % 0.0 % % (0.0-0.2) Sodium 135 mmol/L L mmol/L (137-145) Potassium 2.6 mmol/L L* mmol/L (3.4-5.0) Chloride 105 mmol/L mmol/L (98-107) Carbon Dioxide 22 mmol/L mmol/L (22-30) Anion Gap 8 mmol/L mmol/L (8-16) BUN 5 mg/dL L mg/dL (7-17) Creatinine 0.70 mg/dL mg/dL (0.7-1.0) Estim Creat Clear Calc 75 ml/min ml/min Estimated GFR > 60 (59 - ) Glucose 116 mg/dL H mg/dL (65-110) POC Capillary Glucose Hemoglobin A1c Lactic Acid 1.1 mmol/L mmol/L (0.7-2.0) Calcium 8.1 mg/dL L mg/dL (8.4-10.2) Magnesium Total Bilirubin 0.6 mg/dL mg/dL (0.2-1.3) AST 39 U/L H U/L (14-36) ALT 42 U/L H U/L (6-35)
--- NOTE | 2022-09-01 12:44 | WPDANESEPPF ---
Anes - Initial Pre Proc Eval Procedure: Operation Date: 09/01/22 14:30 Proposed Procedures p Esophagogastroduodenoscopy EGD - Jerod Woodard MD Date/Time: 09/01/22 12:44 Surgeon: Gloria Abarca PA-C Pre Op Diagnosis: Hypokalemia,Persistent Nausea/Vomiting,Gastritis Patient Data Age: 42 Gender: F Height: 1.6 m Weight: 65.7 kg Last Vital Signs Temp 97.1 F L 09/01/22 12:15 Pulse 72 09/01/22 12:15 Resp 20 09/01/22 12:15 BP 99/68 L 09/01/22 12:15 Pulse Ox 100 09/01/22 12:15 O2 Del Method Room Air 09/01/22 12:15 Allergies Allergy/AdvReac Type Severity Reaction Status Date / Time amoxicillin Allergy Intermediate Rash Verified 09/01/22 12:14 azithromycin Allergy Intermediate Hives Verified 09/01/22 12:14 cephalexin Allergy Intermediate Hives / Verified 09/01/22 12:14 Red Face eluxadoline Allergy Intermediate Unknown Verified 09/01/22 12:14 levofloxacin Allergy Intermediate rash Verified 09/01/22 12:14 Penicillins Allergy Intermediate rash Verified 09/01/22 12:14 prednisone Allergy Intermediate Rash Verified 09/01/22 12:14 tramadol Allergy Intermediate Unknown Verified 09/01/22 12:14 trifluoperazine Allergy Intermediate sick Verified 09/01/22 12:14 clavulanic acid Allergy Mild Rash Verified 09/01/22 12:14 [From Augmentin] pregabalin [From Lyrica] Allergy Stopped Verified 09/01/22 12:14 Breathing sulfamethoxazole Allergy Rash Verified 09/01/22 12:14 [From Bactrim] trimethoprim [From Bactrim] Allergy Rash Verified 09/01/22 12:14 ropinirole AdvReac Severe parkinsons Verified 09/01/22 12:14 like symptoms Home Medications Medication Instructions Recorded Confirmed Type dextroamphetamine-amphetamine ER 30 mg PO DAILY 09/20/19 09/01/22 History 30 mg 24hr capsule,extend release albuterol sulfate 90 mcg/actuation 2 puff inhalation Q4-6H PRN 11/02/19 09/01/22 Rx aerosol inhaler (ProAir HFA) shortness of breath or wheezing #1 device folic acid 1 mg tablet 1 mg PO DAILY 04/24/20 09/01/22 History rivaroxaban 20 mg tablet (Xarelto) 20 mg PO DAILY 05/01/20 09/01/22 History aspirin 325 mg tablet 325 mg PO DAILY 05/26/20 09/01/22 History famotidine 20 mg tablet (Pepcid) 20 mg PO BID #14 tabs 05/12/21 09/01/22 Rx ondansetron HCl 4 mg tablet 4 mg PO QID PRN nausea and 05/12/21 09/01/22 Rx (Zofran) vomiting #6 tabs aluminum-mag hydroxide-simethicone 10 ml PO Q6H PRN Heartburn 09/01/22 09/01/22 History 200 mg-200 mg-20 mg/5 mL oral susp (Antacid Liquid) cariprazine 6 mg capsule (Vraylar) 6 mg PO DAILY 09/01/22 09/01/22 History cyanocobalamin (vitamin B-12) 1,000 mcg subcut ONCE 09/01/22 09/01/22 History 1,000 mcg/mL injection solution (Dodex) dicyclomine 10 mg capsule 10 mg PO BID 09/01/22 09/01/22 History diphenoxylate-atropine 2.5 1 tablet PO TID PRN Diarrhea 09/01/22 09/01/22 History mg-0.025 mg tablet glipizide 5 mg tablet 5 mg PO BID 09/01/22 09/01/22 History haloperidol 2 mg tablet 2 mg PO HS 09/01/22 09/01/22 History lamotrigine 25 mg tablet,extended 25 mg PO DAILY 09/01/22 09/01/22 History release 24 hr oxycodone-acetaminophen 7.5 mg-325 1 tablet PO Q4H PRN Pain (Scale 09/01/22 09/01/22 History mg tablet Score 7-10) quetiapine 100 mg tablet 100 mg PO HS 09/01/22 09/01/22 History Laboratory Tests 08/31/22 08/31/22 08/31/22 20:06 20:07 20:07 WBC 16.6 K/mm3 H K/mm3 (4.5-10.0) RBC 4.86 M/mm3 M/mm3 (4.2-5.4) Hgb 16.2 g/dL H g/dL (12.0-15.0) Hct 44.7 % % (37.0-47.0) MCV 92.0 fl fl (80-100) MCH 33.3 pg pg (26-34) MCHC 36.2 g/dl H g/dl (32-36) RDW 12.2 % % (11.5-14.5) Plt Count 327 k/mm3 k/mm3 (150-375) MPV 10.8 fl H fl (7.4-10.4) Immature Gran % (Auto) 0.8 % H % (0-0.5) Neut % (Auto) 64.7 % % (45.5-73.1) Lymph % (Auto) 25.3 % % (18.3-44.2) [place] % (Auto) 7.7 % %
--- NOTE | 2022-09-01 14:29 | PM.IMPN ---
Progress Note: A&P Assessment and Plan (1) Nausea and vomiting: Code(s): R11.2 - Nausea with vomiting, unspecified Status: Acute Assessment and Plan: presented with persistent nausea and vomiting, unable to tolerate solids or liquids Appreciate GI consultation advance to clear liquid diet continue gentle IV fluids until better tolerating diet supportive care EGD completed today which revealed gastritis, otherwise unremarkable. Continue Protonix (2) Diarrhea: Code(s): R19.7 - Diarrhea, unspecified Status: Acute Assessment and Plan: ongoing issue stool cultures have been ordered, awaiting collection per GI, serology for inflammatory disease from 3 years ago was negative may need to consider colonoscopy appreciate GI consultation supportive care continue IV Flagyl (3) Hypokalemia: Code(s): E87.6 - Hypokalemia Status: Acute Assessment and Plan: secondary to vomiting and diarrhea. Potassium 2.6 today. Total of 80 mEq IV KCl ordered (patient not tolerating p.o.) Will trial 20 mEq PO KCl Recheck potassium this afternoon to ensure remaining stable Monitor BMP (4) Hypomagnesemia: Code(s): E83.42 - Hypomagnesemia Status: Acute Assessment and Plan: As above, secondary to vomiting and diarrhea. Mag 1.5 2 g IV Mag Sulfate Monitor labs (5) Gastritis: Code(s): K29.70 - Gastritis, unspecified, without bleeding Status: Acute Assessment and Plan: Gastritis evident on EGD today, otherwise unremarkable Protonix 40 mg IV b.i.d. appreciate GI consultation (6) Psychiatric illness: Code(s): F99 - Mental disorder, not otherwise specified Status: Acute Assessment and Plan: Patient with history of bipolar disorder, schizoaffective disorder, anxiety, depression Continue home Seroquel, Haldol, lamotrigine Home Vraylar is non formulary. Spoke with patient about having someone bring this in, she is unsure if anyone will be able to but she will reach out to family. Subjective Date/time seen: 09/01/22 14:29 Interval history: date of service: 09/01/2022 Mirian Bueno is a 42-year-old female with a history of SLE, PUD, pericardial effusion, schizoaffective disorder, bipolar disorder, prior suicide attempt, hyperlipidemia, hypokalemia, fibromyalgia, endometriosis, anemia, asthma, antiphospholipid disorder maintained on Xarelto, and multiple other medical problems who is seen in follow-up for nausea, vomiting, abdominal pain. The patient's main complaint is that she has had diarrhea ongoing for months. She states this is her 3rd hospital visit related to this. She has been prescribed a course of Flagyl to times, but most recently was not able to completed as she could not keep it down. She has not been able to keep down hardly any solids or liquids. States last time she ate something solid was 6 days prior. She can keep liquids down but typically throws up about an hour after drinking something. She endorses chronic nausea and watery emesis. She denies fevers but does have occasional chills. She also endorses lightheadedness with activity. She denies chest pain, shortness breath, cough. No headaches. No weakness or dizziness. Review of Systems Review of Systems: All systems reviewed & are unremarkable except as noted in HPI and below Exam Narrative: General: Well-nourished, well-appearing 42-year-old female, sitting up in bed, comfortable, NARD Neuro: awake, alert and oriented x4, speech clear, no focal neuro deficits noted HEENMT: normocephalic, atraumatic, EOMI, sclerae anicteric Respiratory: clear to auscultation bilaterally, nonlabored breathing Cardio: regular rate, regular rhythm with S1-S2 Abdomen: nondistended, normoactive bowel sounds, soft, nontender to palpation Extremities: no edema, erythema, or tenderness to palpation, DP pulses 2+ b
[2022-09-01] MEDS: MAGNESIUM SULF 2 GM/WATER 50ML 2 GM/50 ML BAG IVPB (15:55)
[2022-09-01] MEDS: POTASSIUM CHLORIDE 20 MEQ TABLET PO (16:02)
[2022-09-01] MEDS: METOCLOPRAMIDE HCL INJ 10 MG/2 ML VIAL 5 MG IV PUSH (22:14)
[2022-09-02] VITALS (7 sets, daily range): BP systolic 107–119; BP diastolic 66; PULSE 68–81; RESP 16; TEMP 36.3–36.7; O2SAT 100
[2022-09-02] MEDS: ONDANSETRON INJ 4 MG/2 ML VIAL IV PUSH ×4 (04:34→20:50)
[2022-09-02] MEDS: metroNIDAZOLE 500 MG/ISO 100ML 500 MG/100 ML BAG 100 MG IVPB ×3 (05:08→20:52)
[2022-09-02 05:43] LABS: Basophils Absolute Auto 0.1 K/mm3 (0.0-0.1); Eosinophils Absolute Auto 0.1 K/mm3 (0-0.3); Hematocrit 37.7 % (37.0-47.0); Hemoglobin 13.1 g/dL (12.0-15.0); Immature Granulocyte Absolute 0.05 K/mm3 (0.00-0.031); Immature Granulocyte Percent A 0.6 % (0-0.5); Lymphocytes Absolute Auto 2.55 K/mm3 (0.9-3.2); Lymphocytes Percent Auto 32.9 % (18.3-44.2); Mean Corpuscular HGB Conc 34.7 g/dl (32-36); Mean Corpuscular Hemoglobin 33.2 pg (26-34); Mean Corpuscular Volume 95.7 fl (80-100); Mean Platelet Volume 10.9 fl (7.4-10.4); Monocytes Absolute Auto 0.6 K/mm3 (0.1-0.6); Monocytes Percent Auto 7.9 % (2.6-8.5); Neutrophils Absolute Auto 4.4 K/mm3 (1.3-6.7); Neutrophils Percent Auto 56.6 % (45.5-73.1); Platelet Count Result 241 k/mm3 (150-375); Red Blood Count 3.94 M/mm3 (4.2-5.4); Red Cell Distribution Width 12.1 % (11.5-14.5); White Blood Count 7.8 K/mm3 (4.5-10.0)
[2022-09-02 06:03] LABS: Alanine Aminotransferase 38 U/L (6-35); Albumin Level 3.3 g/dL (3.5-5.1); Alkaline Phosphatase 68 U/L (38-126); Anion Gap 7 mmol/L (8-16); Aspartate Amino Transferase 48 U/L (14-36); Bilirubin,Total 0.5 mg/dL (0.2-1.3); Blood Urea Nitrogen 3 mg/dL (7-17); Calcium 7.7 mg/dL (8.4-10.2); Carbon Dioxide 22 mmol/L (22-30); Chloride 109 mmol/L (98-107); Estimated CRCL calculation 75 ml/min; Estimated Glomerular Filt Rate > 60; Glucose 120 mg/dL (65-110); Magnesium 1.9 mg/dL (1.6-2.3); Potassium 3.3 mmol/L (3.4-5.0); Sodium 138 mmol/L (137-145)
--- NOTE | 2022-09-02 08:04 | WPDANESPN ---
Anes - Prog Note Post-Op Date/Time: 09/02/22 08:04 Vital Signs: Last Vital Signs Temp 36.7 C 09/02/22 00:00 Pulse 68 09/02/22 04:00 Resp 16 09/02/22 00:00 BP 119/66 09/02/22 00:00 Pulse Ox 100 09/02/22 00:00 O2 Del Method Room Air 09/01/22 13:55 Pain Score (VAS): 0 I/O: Intake & Output 09/01/22 09/02/22 09/02/22 23:59 07:59 15:59 Intake Total 790 Output Total 900 Balance -110 Laboratory Tests 09/02/22 05:22 09/02/22 05:22 09/01/22 09/01/22 09/01/22 01:34 12:20 17:00 WBC RBC Hgb Hct MCV MCH MCHC RDW Plt Count MPV Immature Gran % (Auto) Neut % (Auto) Lymph % (Auto) Garrard % (Auto) Eos % (Auto) Baso % (Auto) Lymph # (Auto) Garrard # (Auto) Eos # (Auto) Baso # (Auto) Abs Immat Gran (auto) Absolute Neuts (auto) Absolute Nucleated RBC Nucleated RBC % Sodium Potassium 3.0 L Chloride Carbon Dioxide Anion Gap BUN Creatinine Estim Creat Clear Calc Estimated GFR Glucose POC Capillary Glucose 106 H Calcium Magnesium Total Bilirubin AST ALT Alkaline Phosphatase Total Protein Albumin Urine Opiates Screen TNP Urine Methadone Screen TNP Ur Phencyclidine Scrn TNP Ur Amphetamine Screen TNP Urine Cocaine Screen TNP U Cannabinoids Screen TNP 09/02/22 09/02/22 05:22 05:22 WBC 7.8 RBC 3.94 L Hgb 13.1 Hct 37.7 MCV 95.7 MCH 33.2 MCHC 34.7 RDW 12.1 Plt Count 241 MPV 10.9 H Immature Gran % (Auto) 0.6 H Neut % (Auto) 56.6 Lymph % (Auto) 32.9 Garrard % (Auto) 7.9 Eos % (Auto) 1.0 Baso % (Auto) 1.0 Lymph # (Auto) 2.55 Garrard # (Auto) 0.6 Eos # (Auto) 0.1 Baso # (Auto) 0.1 Abs Immat Gran (auto) 0.05 H Absolute Neuts (auto) 4.4 Absolute Nucleated RBC 0.0 Nucleated RBC % 0.0 Sodium 138 Potassium 3.3 L Chloride 109 H Carbon Dioxide 22 Anion Gap 7 L BUN 3 L Creatinine 0.70 Estim Creat Clear Calc 75 Estimated GFR > 60 Glucose 120 H POC Capillary Glucose Calcium 7.7 L Magnesium 1.9 Total Bilirubin 0.5 AST 48 H ALT 38 H Alkaline Phosphatase 68 Total Protein 6.0 L Albumin 3.3 L Urine Opiates Screen Urine Methadone Screen Ur Phencyclidine Scrn Ur Amphetamine Screen Urine Cocaine Screen U Cannabinoids Screen Microbiology 09/01/22 03:07 Blood Blood Culture - Preliminary 09/01/22 03:07 Blood Blood Culture - Preliminary Patient Feedback: Patient satisfied with anesthetic care.
[2022-09-02] MEDS: POTASSIUM CHLORIDE 20 MEQ TABLET.ER PO (08:55)
[2022-09-02] MEDS: PANTOPRAZOLE SODIUM IV 40 MG VIAL IV PUSH ×2 (08:55→16:03)
[2022-09-02] MEDS: ASPIRIN 325 MG TABLET PO (08:55)
[2022-09-02] MEDS: ACETAMINOPHEN 325 MG TABLET 650 MG PO (12:30)
[2022-09-02] MEDS: SODIUM CHLORIDE 0.9% IV 1,000 ML 75 ML IV CONT (12:32)
--- NOTE | 2022-09-02 15:44 | PM.IMPN ---
Progress Note: A&P Assessment and Plan (1) Nausea and vomiting: Code(s): R11.2 - Nausea with vomiting, unspecified Status: Acute Assessment and Plan: presented with persistent nausea and vomiting, unable to tolerate solids or liquids Appreciate GI consultation Continue clear liquid diet, patient not tolerating much p.o. intake at this time continue gentle IV fluids until better tolerating diet may be related to cyclic vomiting from frequent marijuana use. Discussed limiting marijuana use. Supportive care (2) Diarrhea: Code(s): R19.7 - Diarrhea, unspecified Status: Acute Assessment and Plan: ongoing issue, however no episodes of diarrhea this admission stool cultures have been ordered, awaiting collection per GI, serology for inflammatory disease from 3 years ago was negative supportive care not likely to be infectious, will discontinue Flagyl at this time. (3) Hypokalemia: Code(s): E87.6 - Hypokalemia Status: Acute Assessment and Plan: secondary to vomiting and diarrhea. Potassium 3.3 today. 20 mEq PO Kcl daily Monitor BMP (4) Hypomagnesemia: Code(s): E83.42 - Hypomagnesemia Status: Acute Assessment and Plan: As above, secondary to vomiting and diarrhea. Improved with supplementation. Mag 1.9 today (5) Gastritis: Code(s): K29.70 - Gastritis, unspecified, without bleeding Status: Acute Assessment and Plan: Gastritis evident on EGD performed yesterday, otherwise unremarkable Protonix 40 mg b.i.d. Continue IV until better tolerating PO intake appreciate GI consultation (6) Psychiatric illness: Code(s): F99 - Mental disorder, not otherwise specified Status: Acute Assessment and Plan: Patient with history of bipolar disorder, schizoaffective disorder, anxiety, depression Continue home Seroquel, Haldol, Patient on extended release lamotrigine which is nonformulary Home Vraylar is non formulary as is extended release lamotrigine. Spoke with patient about having someone bring this in, she states no one available to bring in. Vraylar on hold. Will transition to immediate release lamotrigine 25 mg daily. Discussed with pharmacy. Subjective Date/time seen: 09/02/22 15:44 Interval history: date of service: 09/02/2022 Mirian Bueno is a 42-year-old female with a history of SLE, PUD, pericardial effusion, schizoaffective disorder, bipolar disorder, prior suicide attempt, hyperlipidemia, hypokalemia, fibromyalgia, endometriosis, anemia, asthma, antiphospholipid disorder maintained on Xarelto, and multiple other medical problems who is seen in follow-up for nausea and vomiting. The patient feels very poorly today. She is tearful, stating she has very severe nausea. Not much relief with the Zofran. She has not been able to tolerate any liquids and states she cannot keep anything down. She has some abdominal discomfort which she rates as 4/10. Denies diarrhea, states she has not had any bowel movements during this admission. Denies fever or chills. No shortness breath, cough, chest pain. Review of Systems Review of Systems: All systems reviewed & are unremarkable except as noted in HPI and below Exam Narrative: General: Well-nourished, well-appearing 42-year-old female, sitting up in bed, appears uncomfortable, NARD Neuro: awake, alert and oriented x4, speech is very soft but clear, no focal neuro deficits noted HEENMT: normocephalic, atraumatic, EOMI, sclerae anicteric Respiratory: clear to auscultation bilaterally, nonlabored breathing Cardio: regular rate, regular rhythm with S1-S2 Abdomen: nondistended, normoactive bowel sounds, soft, nontender to palpation Extremities: no edema, erythema, or tenderness to palpation, DP pulses 2+ bilaterally Skin: no rashes or lesions, warm and dry Psych: appropriate mood and affect, judgment and ins
[2022-09-02] MEDS: RIVAROXABAN 20 MG TABLET PO (16:03)
[2022-09-02] MEDS: lamoTRIgine 25 MG TABLET PO (16:57)
[2022-09-02] MEDS: HALOPERIDOL 1 MG TABLET 2 MG PO (20:02)
[2022-09-03] VITALS: BP 117/62; PULSE 74; RESP 18; TEMP 36.6; O2SAT 99
[2022-09-03] MEDS: PROMETHAZINE HCL 25 MG/ML AMPUL IM (01:06)
[2022-09-03] MEDS: SODIUM CHLORIDE 0.9% IV 1,000 ML 75 ML IV CONT (05:12)
[2022-09-03] MEDS: metroNIDAZOLE 500 MG/ISO 100ML 500 MG/100 ML BAG 100 MG IVPB (05:12)
[2022-09-03 05:32] LABS: Basophils Absolute Auto 0.1 K/mm3 (0.0-0.1); Basophils Percent Auto 0.9 % (0.2-1.2); Eosinophils Absolute Auto 0.1 K/mm3 (0-0.3); Eosinophils Percent Auto 1.5 % (0-4.4); Hematocrit 36.2 % (37.0-47.0); Hemoglobin 12.7 g/dL (12.0-15.0); Immature Granulocyte Absolute 0.06 K/mm3 (0.00-0.031); Immature Granulocyte Percent A 0.8 % (0-0.5); Lymphocytes Absolute Auto 3.02 K/mm3 (0.9-3.2); Mean Corpuscular HGB Conc 35.1 g/dl (32-36); Mean Corpuscular Hemoglobin 33.2 pg (26-34); Mean Corpuscular Volume 94.5 fl (80-100); Mean Platelet Volume 10.7 fl (7.4-10.4); Monocytes Absolute Auto 0.7 K/mm3 (0.1-0.6); Monocytes Percent Auto 8.2 % (2.6-8.5); Neutrophils Percent Auto 50.6 % (45.5-73.1); Platelet Count Result 231 k/mm3 (150-375); Red Blood Count 3.83 M/mm3 (4.2-5.4); Red Cell Distribution Width 11.9 % (11.5-14.5)
[2022-09-03 05:51] LABS: Alanine Aminotransferase 33 U/L (6-35); Albumin Level 2.9 g/dL (3.5-5.1); Alkaline Phosphatase 61 U/L (38-126); Anion Gap 6 mmol/L (8-16); Aspartate Amino Transferase 44 U/L (14-36); Bilirubin,Total 0.3 mg/dL (0.2-1.3); Blood Urea Nitrogen 3 mg/dL (7-17); Calcium 7.6 mg/dL (8.4-10.2); Carbon Dioxide 23 mmol/L (22-30); Chloride 110 mmol/L (98-107); Estimated CRCL calculation 75 ml/min; Estimated Glomerular Filt Rate > 60; Glucose 102 mg/dL (65-110); Magnesium 1.8 mg/dL (1.6-2.3); Potassium 3.1 mmol/L (3.4-5.0); Sodium 139 mmol/L (137-145)
--- NOTE | 2022-09-03 06:39 | WPDGIPROGNO ---
Progress Note: A&P Assessment and Plan (1) Nausea and vomiting: Code(s): R11.2 - Nausea with vomiting, unspecified Status: Acute Assessment and Plan: Severe nausea vomiting this last weekend. She has not had any blood in her emesis. (2) Diarrhea: Code(s): R19.7 - Diarrhea, unspecified Status: Acute Assessment and Plan: CT scan showed abnormalities in the area sigmoid descending colon. She has started on the antibiotics with metronidazole and she states she actually took 2 rounds of antibiotics. Colonoscopy may be necessary. 09/03/2022 she had no bowel movement for 2 days and therefore we discontinued the metronidazole. She is no longer having diarrhea. Tentatively, she is scheduled for an outpatient colonoscopy in a few weeks. Depending on the results of the pending studies such as calprotectin level, C reactive protein, etc. she may or may not need to have it done (3) Right lower quadrant abdominal pain: Code(s): R10.31 - Right lower quadrant pain Status: Acute Assessment and Plan: her pain is pretty much resolved. She is no longer tender in the right lower quadrant (4) Abnormal CT scan, gastrointestinal tract: Code(s): R93.3 - Abnormal findings on diagnostic imaging of other parts of digestive tract Status: Acute Assessment and Plan: CT scan shows: Hepatomegaly and steatosis. Esophagitis/gastritis. Fluid-filled colon, as can be seen with diarrheal illness. Bladder wall thickening which may be secondary to cystitis or incomplete distention. 09/03/2022 her diarrhea stopped, therefore do not think she has colitis. We are awaiting stool studies (5) Activated protein C resistance: Code(s): D68.51 - Activated protein C resistance Status: Acute Assessment and Plan: she has been off her medication for 5 days. Hopefully with a resolve her vomiting and nausea and get her back to eating a back on oral medications. (6) Dysphagia: Code(s): R13.10 - Dysphagia, unspecified Status: Acute Assessment and Plan: she has a history of having esophageal stricture dilated about 3 years ago and recently is having more difficulty with swallowing. EGD will be performed with possible dilatation. 09/03/2022 EGD did not reveal stricture or any other significant abnormalities. H pylori was negative Plan I will advance her diet. I think that if she can keep food down that we all to be able to send her home later today. Subjective Date/time seen: 09/03/22 06:39 finally she had a good night and is no longer as nauseated she was. She willing to try eating today. She did have 2 bowel movements last night and she states that they were collected for specimens have been ordered which were calprotectin and he last days. Oddly, we have never received the results of the laboratory studies and stool studies that she did at [facility] on Tuesday. She checked on her phone again and it still says pending she is not having any significant pain this morning. Exam Const: General: alert, uncomfortable and average body habitus Nutritional Appearance: average body habitus Orientation/consciousness: patient oriented x3 Resp: Auscultation: clear to auscultation bilaterally Cardio: Rhythm: regular rhythm GI: GI Palp: No abdominal tenderness, Yes Soft to palpation and Yes No hepatosplenomegaly present Auscultation: normal bowel sounds Neuro: General: patient oriented x3 Objective Data Vital Signs Vital Signs: Vital Signs - 24 hr 09/02/22 08:00 09/02/22 08:00 09/02/22 12:00 Temperature Pulse Rate 71 73 Respiratory Rate Blood Pressure Pulse Oximetry Oxygen Delivery Room Air 09/02/22 14:00 09/02/22 16:00 09/02/22 20:00 Temperature 36.3 C L Pulse Rate 77 81 81 Respiratory Rate 16 16 Blood Pressure 107/66 Pulse Oximetry 100 100 Oxygen Delivery Room Air 09/03/22 00:00 Temperature 36.6 C Pulse R
[2022-09-03] MEDS: POTASSIUM CHLORIDE 20 MEQ TABLET.ER PO (08:32)
[2022-09-03] MEDS: ASPIRIN 325 MG TABLET PO (08:32)
[2022-09-03] MEDS: lamoTRIgine 25 MG TABLET PO (08:32)
[2022-09-03] MEDS: PANTOPRAZOLE SODIUM IV 40 MG VIAL IV PUSH ×2 (08:32→16:46)
[2022-09-03] MEDS: POTASSIUM CHLORIDE 20 MEQ TABLET 40 MEQ PO (08:32)
[2022-09-03] MEDS: SENNA/DOCUSATE SODIUM TABLET 1 TAB PO (08:33)
[2022-09-03] MEDS: polyethylene glycoL 3350 17 GM POWD.PACK PO (08:33)
--- NOTE | 2022-09-03 10:15 | PM.IMPN ---
Progress Note: A&P Assessment and Plan (1) Nausea and vomiting: Code(s): R11.2 - Nausea with vomiting, unspecified Status: Acute Assessment and Plan: presented with persistent nausea and vomiting, unable to tolerate solids or liquids Appreciate GI consultation Diet advanced to regular at this time DC fluids at this time may be related to cyclic vomiting from frequent marijuana use. reiterated about limiting marijuana use. Supportive care (2) Diarrhea: Code(s): R19.7 - Diarrhea, unspecified Status: Acute Assessment and Plan: ongoing issue, however no episodes of diarrhea this admission stool cultures have been ordered, awaiting collection per GI, serology for inflammatory disease from 3 years ago was negative supportive care not likely to be infectious, will discontinue Flagyl at this time. (3) Hypokalemia: Code(s): E87.6 - Hypokalemia Status: Acute Assessment and Plan: secondary to vomiting and diarrhea. Potassium 3.1 today. 20 mEq PO Kcl daily 40 mEq PO KCL once Continue to trend Monitor BMP (4) Hypomagnesemia: Code(s): E83.42 - Hypomagnesemia Status: Acute Assessment and Plan: As above, secondary to vomiting and diarrhea. Improved with supplementation. Mag 1.8 today (5) Gastritis: Code(s): K29.70 - Gastritis, unspecified, without bleeding Status: Acute Assessment and Plan: Gastritis evident on EGD performed yesterday, otherwise unremarkable Protonix 40 mg b.i.d. Continue IV until better tolerating PO intake appreciate GI consultation (6) Psychiatric illness: Code(s): F99 - Mental disorder, not otherwise specified Status: Acute Assessment and Plan: Patient with history of bipolar disorder, schizoaffective disorder, anxiety, depression Continue home Seroquel, Haldol, Patient on extended release lamotrigine which is nonformulary Home Vraylar is non formulary as is extended release lamotrigine. Spoke with patient about having someone bring this in, she states no one available to bring in. Vraylar on hold. Will transition to immediate release lamotrigine 25 mg daily. Discussed with pharmacy. Time Spent With Patient Time with patient: Greater than 35 minutes Subjective Date/time seen: 09/03/22 1015 Interval history: 09/03/22 1015 Patient is really not feeling good today. She stated that she is having severe abdominal pain and nausea. She also feels really weak and just have a hard time keeping her head up. She states her stomach hurts and she was able to eat the coughing the Jell-O however she feels like that is what caused her stomach to her. She also stated that she had a little bowel movement today however she does eat much that would be normal for her. She denies any chest pain, shortness a breath, fevers, sweats, chills. Diet advanced for lunch. Will check on her this afternoon. date of service: 09/02/2022 Mirian Bueno is a 42-year-old female with a history of SLE, PUD, pericardial effusion, schizoaffective disorder, bipolar disorder, prior suicide attempt, hyperlipidemia, hypokalemia, fibromyalgia, endometriosis, anemia, asthma, antiphospholipid disorder maintained on Xarelto, and multiple other medical problems who is seen in follow-up for nausea and vomiting. The patient feels very poorly today. She is tearful, stating she has very severe nausea. Not much relief with the Zofran. She has not been able to tolerate any liquids and states she cannot keep anything down. She has some abdominal discomfort which she rates as 4/10. Denies diarrhea, states she has not had any bowel movements during this admission. Denies fever or chills. No shortness breath, cough, chest pain. Review of Systems Review of Systems: All systems reviewed & are unremarkable except as noted in HPI and below
--- NOTE | 2022-09-03 10:15 | P.PNIM_ITS ---
Progress Note: A&P Assessment and Plan (1) Nausea and vomiting: Code(s): R11.2 - Nausea with vomiting, unspecified Status: Acute Assessment and Plan: presented with persistent nausea and vomiting, unable to tolerate solids or liquids * Appreciate GI consultation * Diet advanced to regular at this time * DC fluids at this time * may be related to cyclic vomiting from frequent marijuana use. reiterated about limiting marijuana use. * Supportive care (2) Diarrhea: Code(s): R19.7 - Diarrhea, unspecified Status: Acute Assessment and Plan: * ongoing issue, however no episodes of diarrhea this admission * stool cultures have been ordered, awaiting collection * per GI, serology for inflammatory disease from 3 years ago was negative * supportive care * not likely to be infectious, will discontinue Flagyl at this time. (3) Hypokalemia: Code(s): E87.6 - Hypokalemia Status: Acute Assessment and Plan: * secondary to vomiting and diarrhea. Potassium 3.1 today. * 20 mEq PO Kcl daily * 40 mEq PO KCL once * Continue to trend * Monitor BMP (4) Hypomagnesemia: Code(s): E83.42 - Hypomagnesemia Status: Acute Assessment and Plan: * As above, secondary to vomiting and diarrhea. * Improved with supplementation. * Mag 1.8 today (5) Gastritis: Code(s): K29.70 - Gastritis, unspecified, without bleeding Status: Acute Assessment and Plan: * Gastritis evident on EGD performed yesterday, otherwise unremarkable * Protonix 40 mg b.i.d. Continue IV until better tolerating PO intake * appreciate GI consultation (6) Psychiatric illness: Code(s): F99 - Mental disorder, not otherwise specified Status: Acute Assessment and Plan: Patient with history of bipolar disorder, schizoaffective disorder, anxiety, depression * Continue home Seroquel, Haldol, * Patient on extended release lamotrigine which is nonformulary * Home Vraylar is non formulary as is extended release lamotrigine. Spoke with patient about having someone bring this in, she states no one available to bring in. Vraylar on hold. Will transition to immediate release lamotrigine 25 mg daily. Discussed with pharmacy. Time Spent With Patient Time with patient: Greater than 35 minutes Subjective Date/time seen: 10/14/22 1015 Interval history: 09/03/221014 Patient is really not feeling good today. She stated that she is having severe abdominal pain and nausea. She also feels really weak and just have a hard time keeping her head up. She states her stomach hurts and she was able to eat the coughing the Jell-O however she feels like that is what caused her stomach to her. She also stated that she had a little bowel movement today however she does eat much that would be normal for her. She denies any chest pain, shortness a breath, fevers, sweats, chills. Diet advanced for lunch. Will check on her this afternoon. date of service: 09/02/2022 Mirian Bueno is a 42-year-old female with a history of SLE, PUD, pericardial effusion, schizoaffective disorder, bipolar disorder, prior suicide attempt, hyperlipidemia, hypokalemia, fibromyalgia, endometriosis, anemia, asthma, antiphospholipid disorder maintained on Xarelto, and multiple other medical problems who is seen in follow-up for nausea and vomiting. The patient feels very poorly today. She is tearful, stating
[2022-09-03] MEDS: MORPHINE SULFATE (*CRX) 2 MG/ML INJ 1 MG IV PUSH ×3 (10:59→20:51)
[2022-09-03] MEDS: ONDANSETRON INJ 4 MG/2 ML VIAL IV PUSH ×3 (11:00→20:50)
[2022-09-03] MEDS: METOCLOPRAMIDE HCL INJ 10 MG/2 ML VIAL IV PUSH (13:33)
[2022-09-03 14:00] VITALS: BP 111/65; PULSE 104; RESP 16; TEMP 36.7; O2SAT 98
[2022-09-03] MEDS: RIVAROXABAN 20 MG TABLET PO (16:46)
[2022-09-03 19:46] VITALS: BP 127/80; PULSE 60; RESP 20; TEMP 36.6; O2SAT 100
[2022-09-03 20:00] VITALS: PULSE 60; RESP 20; O2SAT 100
[2022-09-03] MEDS: HALOPERIDOL 1 MG TABLET 2 MG PO (20:55)
[2022-09-03 23:08] VITALS: TEMP 36.6
[2022-09-04] MEDS: ONDANSETRON INJ 4 MG/2 ML VIAL IV PUSH ×3 (01:24→13:04)
[2022-09-04] MEDS: MORPHINE SULFATE (*CRX) 2 MG/ML INJ 1 MG IV PUSH ×4 (01:24→18:56)
[2022-09-04 05:01] VITALS: BP 116/68; PULSE 60; RESP 20; TEMP 36.6; O2SAT 100
[2022-09-04 06:57] LABS: Basophils Absolute Auto 0.1 K/mm3 (0.0-0.1); Basophils Percent Auto 0.9 % (0.2-1.2); Eosinophils Absolute Auto 0.1 K/mm3 (0-0.3); Eosinophils Percent Auto 1.6 % (0-4.4); Hematocrit 38.3 % (37.0-47.0); Hemoglobin 13.7 g/dL (12.0-15.0); Immature Granulocyte Absolute 0.08 K/mm3 (0.00-0.031); Immature Granulocyte Percent A 0.9 % (0-0.5); Lymphocytes Absolute Auto 3.49 K/mm3 (0.9-3.2); Mean Corpuscular HGB Conc 35.8 g/dl (32-36); Mean Corpuscular Hemoglobin 33.3 pg (26-34); Mean Platelet Volume 10.9 fl (7.4-10.4); Monocytes Absolute Auto 0.8 K/mm3 (0.1-0.6); Monocytes Percent Auto 9.3 % (2.6-8.5); Neutrophils Absolute Auto 4.3 K/mm3 (1.3-6.7); Neutrophils Percent Auto 48.3 % (45.5-73.1); Platelet Count Result 239 k/mm3 (150-375); Red Blood Count 4.12 M/mm3 (4.2-5.4); White Blood Count 8.9 K/mm3 (4.5-10.0)
[2022-09-04 07:25] LABS: Alanine Aminotransferase 32 U/L (6-35); Albumin Level 3.7 g/dL (3.5-5.1); Alkaline Phosphatase 66 U/L (38-126); Anion Gap 13 mmol/L (8-16); Aspartate Amino Transferase 47 U/L (14-36); Bilirubin,Total 0.4 mg/dL (0.2-1.3); Calcium 8.5 mg/dL (8.4-10.2); Carbon Dioxide 23 mmol/L (22-30); Chloride 105 mmol/L (98-107); Estimated CRCL calculation 75 ml/min; Estimated Glomerular Filt Rate > 60; Glucose 107 mg/dL (65-110); Magnesium 1.6 mg/dL (1.6-2.3); Potassium 2.6 mmol/L (3.4-5.0); Sodium 141 mmol/L (137-145)
--- NOTE | 2022-09-04 08:15 | P.PNIM_ITS ---
Progress Note: A&P Assessment and Plan (1) Nausea and vomiting: Code(s): R11.2 - Nausea with vomiting, unspecified Status: Acute Assessment and Plan: * presented with persistent nausea and vomiting, unable to tolerate solids or liquids * Appreciate GI consultation * Diet advanced to regular at this time * DC fluids at this time * may be related to cyclic vomiting from frequent marijuana use. reiterated about limiting marijuana use * Abd xray just showed stool paucity and lactic acid 1.9 * Lipase 51 * Supportive care (2) Diarrhea: Code(s): R19.7 - Diarrhea, unspecified Status: Acute Assessment and Plan: * ongoing issue, however no episodes of diarrhea this admission * stool cultures have been ordered, collected, awaiting results * per GI, serology for inflammatory disease from 3 years ago was negative * supportive care * not likely to be infectious, will discontinue Flagyl at this time. (3) Hypokalemia: Code(s): E87.6 - Hypokalemia Status: Acute Assessment and Plan: * secondary to vomiting and diarrhea. Potassium 2.6 today. * 20 mEq PO Kcl daily * 40 mEq PO KCL once, and 40 mEq IV once * Repeat potassium 1 hour post infusion * Continue to trend * Monitor BMP (4) Hypomagnesemia: Code(s): E83.42 - Hypomagnesemia Status: Acute Assessment and Plan: * As above, secondary to vomiting and diarrhea. * Improved with supplementation. * Mag 1.6 today * Replace with 4gm (5) Gastritis: Code(s): K29.70 - Gastritis, unspecified, without bleeding Status: Acute Assessment and Plan: * Gastritis evident on EGD performed yesterday, otherwise unremarkable * Protonix 40 mg b.i.d. Continue IV until better tolerating PO intake * appreciate GI consultation * WBC normal * Consider antibiotics if no improvement this afternoon. (6) Psychiatric illness: Code(s): F99 - Mental disorder, not otherwise specified Status: Acute Assessment and Plan: * Patient with history of bipolar disorder, schizoaffective disorder, anxiety, depression * Continue home Seroquel, Haldol, * Patient on extended release lamotrigine which is nonformulary * Home Vraylar is non formulary as is extended release lamotrigine. Spoke with patient about having someone bring this in, she states no one available to bring in. Vraylar on hold. Will transition to immediate release lamotrigine 25 mg daily. Discussed with pharmacy. * Could be the reason for not having any improvements Time Spent With Patient Time with patient: Greater than 35 minutes Subjective Date/time seen: 09/04/22 08:15 Interval history: 09/04/22814 Patient is very tearful in the room. She stated that she is still having severe abdominal pain. She stated that it is mostly epigastric and to the right upper quadrant. She stated that the Morphine is minimally effective. She did eat yesterday, however, she stated that it was not a lot. She stated that the nausea is still present, but the vomiting has dissipated. She is also stating that she is having chest pain, without shortness of breath, sweats, fevers, chills. She does also endorses weakness, and stated that she is not moving around too much. Expressed to her that she does need to get up and try moving around. Chest and abd xray, lactic acid, and trop all orde
--- NOTE | 2022-09-04 08:15 | PM.IMPN ---
Progress Note: A&P Assessment and Plan (1) Nausea and vomiting: Code(s): R11.2 - Nausea with vomiting, unspecified Status: Acute Assessment and Plan: presented with persistent nausea and vomiting, unable to tolerate solids or liquids Appreciate GI consultation Diet advanced to regular at this time DC fluids at this time may be related to cyclic vomiting from frequent marijuana use. reiterated about limiting marijuana use Abd xray just showed stool paucity and lactic acid 1.9 Lipase 51 Supportive care (2) Diarrhea: Code(s): R19.7 - Diarrhea, unspecified Status: Acute Assessment and Plan: ongoing issue, however no episodes of diarrhea this admission stool cultures have been ordered, collected, awaiting results per GI, serology for inflammatory disease from 3 years ago was negative supportive care not likely to be infectious, will discontinue Flagyl at this time. (3) Hypokalemia: Code(s): E87.6 - Hypokalemia Status: Acute Assessment and Plan: secondary to vomiting and diarrhea. Potassium 2.6 today. 20 mEq PO Kcl daily 40 mEq PO KCL once, and 40 mEq IV once Repeat potassium 1 hour post infusion Continue to trend Monitor BMP (4) Hypomagnesemia: Code(s): E83.42 - Hypomagnesemia Status: Acute Assessment and Plan: As above, secondary to vomiting and diarrhea. Improved with supplementation. Mag 1.6 today Replace with 4gm (5) Gastritis: Code(s): K29.70 - Gastritis, unspecified, without bleeding Status: Acute Assessment and Plan: Gastritis evident on EGD performed yesterday, otherwise unremarkable Protonix 40 mg b.i.d. Continue IV until better tolerating PO intake appreciate GI consultation WBC normal Consider antibiotics if no improvement this afternoon. (6) Psychiatric illness: Code(s): F99 - Mental disorder, not otherwise specified Status: Acute Assessment and Plan: Patient with history of bipolar disorder, schizoaffective disorder, anxiety, depression Continue home Seroquel, Haldol, Patient on extended release lamotrigine which is nonformulary Home Vraylar is non formulary as is extended release lamotrigine. Spoke with patient about having someone bring this in, she states no one available to bring in. Vraylar on hold. Will transition to immediate release lamotrigine 25 mg daily. Discussed with pharmacy. Could be the reason for not having any improvements Time Spent With Patient Time with patient: Greater than 35 minutes Subjective Date/time seen: 09/04/22 08:15 Interval history: 09/04/22 0815 Patient is very tearful in the room. She stated that she is still having severe abdominal pain. She stated that it is mostly epigastric and to the right upper quadrant. She stated that the Morphine is minimally effective. She did eat yesterday, however, she stated that it was not a lot. She stated that the nausea is still present, but the vomiting has dissipated. She is also stating that she is having chest pain, without shortness of breath, sweats, fevers, chills. She does also endorses weakness, and stated that she is not moving around too much. Expressed to her that she does need to get up and try moving around. Chest and abd xray, lactic acid, and trop all ordered. 09/03/22 1015 Patient is really not feeling good today. She stated that she is having severe abdominal pain and nausea. She also feels really weak and just have a hard time keeping her head up. She states her stomach hurts and she was able to eat the coughing the Jell-O however she feels like that is what caused her stomach to her. She also stated that she had a little bowel movement today however she does eat much that would be normal for her. She denies any chest pain, shortness a breath, fevers, sweats, chi
[2022-09-04] MEDS: POTASSIUM CHLORIDE 20 MEQ TABLET.ER PO (08:41)
[2022-09-04] MEDS: POTASSIUM CHLORIDE 20 MEQ TABLET 40 MEQ PO (08:42)
[2022-09-04] MEDS: ASPIRIN 325 MG TABLET PO (08:43)
[2022-09-04] MEDS: SENNA/DOCUSATE SODIUM TABLET 1 TAB PO (08:43)
[2022-09-04] MEDS: POTASSIUM CHLORIDE INJ 40 MEQ in SODIUM CHLORIDE 0.9% IV 500 ML 130 MEQ IVPB (08:43)
[2022-09-04] MEDS: lamoTRIgine 25 MG TABLET PO (08:44)
[2022-09-04] MEDS: polyethylene glycoL 3350 17 GM POWD.PACK PO (08:44)
[2022-09-04] MEDS: PANTOPRAZOLE SODIUM IV 40 MG VIAL IV PUSH ×2 (08:44→17:13)
[2022-09-04 08:45] VITALS: O2SAT 100
[2022-09-04 10:02] LABS: Blood Urea Nitrogen < 2 mg/dL (7-17)
[2022-09-04 10:11] LABS: Lactic Acid Reflex 1.9 mmol/L (0.7-2.0)
[2022-09-04 10:14] LABS: Lipase 51 U/L (23-300)
[2022-09-04 10:23] LABS: Troponin I < 0.012 ng/mL (0.000-0.034)
[2022-09-04] MEDS: HYDROcodone/acetaminophen (*CRX) 5-325 MG TABLET 1 TAB PO (13:02)
[2022-09-04 13:17] VITALS: O2SAT 97
[2022-09-04 14:00] VITALS: BP 119/69; PULSE 62; RESP 16; TEMP 35.7; O2SAT 100
[2022-09-04] MEDS: RIVAROXABAN 20 MG TABLET PO (17:13)
[2022-09-04] MEDS: METOCLOPRAMIDE HCL INJ 10 MG/2 ML VIAL 5 MG IV PUSH ×2 (17:16→21:44)
[2022-09-04 17:57] LABS: Potassium 3.5 mmol/L (3.4-5.0)
[2022-09-04 20:00] VITALS: PULSE 59; RESP 18; O2SAT 99
[2022-09-04] MEDS: HALOPERIDOL 1 MG TABLET 2 MG PO (20:26)
[2022-09-04 22:00] VITALS: BP 121/60; PULSE 59; RESP 18; TEMP 36.6; O2SAT 99
[2022-09-05] MEDS: MORPHINE SULFATE (*CRX) 2 MG/ML INJ 1 MG IV PUSH ×2 (00:51→05:39)
[2022-09-05] MEDS: ONDANSETRON INJ 4 MG/2 ML VIAL IV PUSH ×2 (00:52→05:40)
[2022-09-05 04:21] VITALS: BP 94/56; PULSE 64; RESP 18; TEMP 37.1; O2SAT 98
[2022-09-05] MEDS: METOCLOPRAMIDE HCL INJ 10 MG/2 ML VIAL 5 MG IV PUSH ×4 (05:54→20:09)
[2022-09-05 06:05] VITALS: TEMP 37.1
--- NOTE | 2022-09-05 07:44 | WPDGIPROGNO ---
Progress Note: A&P Assessment and Plan (1) Nausea and vomiting: Code(s): R11.2 - Nausea with vomiting, unspecified Status: Acute Assessment and Plan: Severe nausea vomiting this last weekend. She has not had any blood in her emesis. She still complaining of nausea but states that Reglan is helping. No vomiting overnight. (2) Diarrhea: Code(s): R19.7 - Diarrhea, unspecified Status: Acute Assessment and Plan: CT scan showed abnormalities in the area sigmoid descending colon. She has started on the antibiotics with metronidazole and she states she actually took 2 rounds of antibiotics. Colonoscopy may be necessary. 09/03/2022 she had no bowel movement for 2 days and therefore we discontinued the metronidazole. She is no longer having diarrhea. Tentatively, she is scheduled for an outpatient colonoscopy in a few weeks. Depending on the results of the pending studies such as calprotectin level, C reactive protein, etc. she may or may not need to have it done 09/05/2022 she is no longer having diarrhea. Fecal calprotectin level came back normal in fact quite low ruling out any inflammatory bowel disease type process. (3) Right lower quadrant abdominal pain: Code(s): R10.31 - Right lower quadrant pain Status: Acute Assessment and Plan: Right lower quadrant pain that she complained about on admission has resolved. Is primarily now in the right upper quadrant. (4) Abnormal CT scan, gastrointestinal tract: Code(s): R93.3 - Abnormal findings on diagnostic imaging of other parts of digestive tract Status: Acute Assessment and Plan: CT scan shows: Hepatomegaly and steatosis. Esophagitis/gastritis. Fluid-filled colon, as can be seen with diarrheal illness. Bladder wall thickening which may be secondary to cystitis or incomplete distention. 09/03/2022 her diarrhea stopped, therefore do not think she has colitis. We are awaiting stool studies 09/05/2022 Calprotectin level is normal. outpatient stool studies had been ordered but I am sure they will be okay she in fact had not had a bowel movement for couple of days. Now they are fairly normal. (5) Activated protein C resistance: Code(s): D68.51 - Activated protein C resistance Status: Acute Assessment and Plan: she has been off her medication for 5 days. Hopefully with a resolve her vomiting and nausea and get her back to eating a back on oral medications. (6) Dysphagia: Code(s): R13.10 - Dysphagia, unspecified Status: Acute Assessment and Plan: she has a history of having esophageal stricture dilated about 3 years ago and recently is having more difficulty with swallowing. EGD will be performed with possible dilatation. 09/03/2022 EGD did not reveal stricture or any other significant abnormalities. H pylori was negative (7) Right upper quadrant abdominal pain: Code(s): R10.11 - Right upper quadrant pain Status: Acute Assessment and Plan: her main complaint now is in the right upper quadrant. Although she is soft on examination and there is no guarding, she complains of severe pain at times to the nursing staff. She was concerned that this could be from her liver because she has chronically elevated liver enzymes. I explained her that the liver itself is devoid of pain receptors and would not cause pain to the extent she has. Her gallbladder has been removed. I will obtain an MRCP to see if we are missing something in the biliary tract or pancreas. I am concerned that this may be somewhat of a psychiatric type issue we are dealing with that there seems to be a great deal of functional overlay. (8) Elevated liver enzymes: Code(s): R74.8 - Abnormal levels of other serum enzymes Status: Acute Assessment and Plan: she indicates that this is a chronic issue and she was at 1 point going to see a pathology laboratory technologist. Actually her LFT
[2022-09-05] MEDS: SENNA/DOCUSATE SODIUM TABLET 1 TAB PO (09:16)
[2022-09-05] MEDS: lamoTRIgine 25 MG TABLET PO (09:16)
[2022-09-05] MEDS: POTASSIUM CHLORIDE 20 MEQ TABLET.ER PO (09:16)
[2022-09-05] MEDS: PANTOPRAZOLE SODIUM IV 40 MG VIAL IV PUSH ×2 (09:16→17:39)
[2022-09-05] MEDS: ASPIRIN 325 MG TABLET PO (09:16)
--- NOTE | 2022-09-05 09:45 | PM.IMPN ---
Progress Note: A&P Assessment and Plan (1) Nausea and vomiting: Code(s): R11.2 - Nausea with vomiting, unspecified Status: Acute Assessment and Plan: presented with persistent nausea and vomiting, unable to tolerate solids or liquids Appreciate GI consultation Diet advanced to regular at this time DC fluids at this time may be related to cyclic vomiting from frequent marijuana use. reiterated about limiting marijuana use Abd xray just showed stool paucity and lactic acid 1.9 Liver enzymes are slightly elevated Continue with Reglan at this time MRCP ordered Lipase 51 Supportive care (2) Diarrhea: Code(s): R19.7 - Diarrhea, unspecified Status: Acute Assessment and Plan: ongoing issue, however no episodes of diarrhea this admission stool cultures Campylobacter, shigella, and salmonella are not detected Other stool cultures still pending per GI, serology for inflammatory disease from 3 years ago was negative supportive care not likely to be infectious, will discontinue Flagyl at this time. (3) Hypokalemia: Code(s): E87.6 - Hypokalemia Status: Acute Assessment and Plan: secondary to vomiting and diarrhea. Potassium 3.6 today. 20 mEq PO Kcl daily continued Probably from the diarrhea Continue to trend Monitor BMP (4) Hypomagnesemia: Code(s): E83.42 - Hypomagnesemia Status: Acute Assessment and Plan: As above, secondary to vomiting and diarrhea. Improved with supplementation. Mag 1.6 again today Replace with 4gm again (5) Gastritis: Code(s): K29.70 - Gastritis, unspecified, without bleeding Status: Acute Assessment and Plan: Gastritis evident on EGD performed yesterday, otherwise unremarkable Protonix 40 mg b.i.d. Continue IV until better tolerating PO intake appreciate GI consultation WBC normal Consider antibiotics if no improvement this afternoon. (6) Psychiatric illness: Code(s): F99 - Mental disorder, not otherwise specified Status: Acute Assessment and Plan: Patient with history of bipolar disorder, schizoaffective disorder, anxiety, depression Continue home Seroquel Haldol, Patient on extended release lamotrigine which is nonformulary Home Vraylar is non formulary as is extended release lamotrigine. Spoke with patient about having someone bring this in, she states no one available to bring in. Vraylar on hold. Will transition to immediate release lamotrigine 25 mg daily. Discussed with pharmacy. Could be the reason for not having any improvements Time Spent With Patient Time with patient: Greater than 35 minutes Subjective Date/time seen: 09/05/22944 Interval history: 09/05/22944 Patient seems to be a little bit better today. She stated that the nausea is a little better however she still is nauseous. She also claims that the Reglan is working. She does not seem is emotional today. She is post go for an MRCP as her liver enzymes are elevating and she is having right upper quadrant pain. Currently denying any chest pain, shortness a breath, fevers, sweats, chills. Patient still endorses diarrhea however she stated that it is getting better. 09/04/22814 Patient is very tearful in the room. She stated that she is still having severe abdominal pain. She stated that it is mostly epigastric and to the right upper quadrant. She stated that the Morphine is minimally effective. She did eat yesterday, however, she stated that it was not a lot. She stated that the nausea is still present, but the vomiting has dissipated. She is also stating that she is having chest pain, without shortness of breath, sweats, fevers, chills. She does also endorses weakness, and stated that she is not moving around too much. Expressed to her that she does need to get up and try movin
--- NOTE | 2022-09-05 09:45 | P.PNIM_ITS ---
Progress Note: A&P Assessment and Plan (1) Nausea and vomiting: Code(s): R11.2 - Nausea with vomiting, unspecified Status: Acute Assessment and Plan: * presented with persistent nausea and vomiting, unable to tolerate solids or liquids * Appreciate GI consultation * Diet advanced to regular at this time * DC fluids at this time * may be related to cyclic vomiting from frequent marijuana use. reiterated about limiting marijuana use * Abd xray just showed stool paucity and lactic acid 1.9 * Liver enzymes are slightly elevated * Continue with Reglan at this time * MRCP ordered * Lipase 51 * Supportive care (2) Diarrhea: Code(s): R19.7 - Diarrhea, unspecified Status: Acute Assessment and Plan: * ongoing issue, however no episodes of diarrhea this admission * stool cultures Campylobacter, shigella, and salmonella are not detected * Other stool cultures still pending * per GI, serology for inflammatory disease from 3 years ago was negative * supportive care * not likely to be infectious, will discontinue Flagyl at this time. (3) Hypokalemia: Code(s): E87.6 - Hypokalemia Status: Acute Assessment and Plan: * secondary to vomiting and diarrhea. Potassium 3.6 today. * 20 mEq PO Kcl daily continued * Probably from the diarrhea * Continue to trend * Monitor BMP (4) Hypomagnesemia: Code(s): E83.42 - Hypomagnesemia Status: Acute Assessment and Plan: * As above, secondary to vomiting and diarrhea. * Improved with supplementation. * Mag 1.6 again today * Replace with 4gm again (5) Gastritis: Code(s): K29.70 - Gastritis, unspecified, without bleeding Status: Acute Assessment and Plan: * Gastritis evident on EGD performed yesterday, otherwise unremarkable * Protonix 40 mg b.i.d. Continue IV until better tolerating PO intake * appreciate GI consultation * WBC normal * Consider antibiotics if no improvement this afternoon. (6) Psychiatric illness: Code(s): F99 - Mental disorder, not otherwise specified Status: Acute Assessment and Plan: * Patient with history of bipolar disorder, schizoaffective disorder, anxiety, depression * Continue home Seroquel, Haldol, * Patient on extended release lamotrigine which is nonformulary * Home Vraylar is non formulary as is extended release lamotrigine. Spoke with patient about having someone bring this in, she states no one available to bring in. Christina on hold. Will transition to immediate release lamotrigine 25 mg daily. Discussed with pharmacy. * Could be the reason for not having any improvements Time Spent With Patient Time with patient: Greater than 35 minutes Subjective Date/time seen: 09/05/22944 Interval history: 09/05/22944 Patient seems to be a little bit better today. She stated that the nausea is a little better however she still is nauseous. She also claims that the Reglan is working. She does not seem is emotional today. She is post go for an MRCP as her liver enzymes are elevating and she is having right upper quadrant pain. Currently denying any chest pain, shortness a breath, fevers, sweats, chills. Patient still endorses diarrhea however she stated that it is getting better. 09/04/22814 Patient is very tearful in the room. She stated that she is still
[2022-09-05 10:15] LABS: Hematocrit 37.3 % (37.0-47.0); Hemoglobin 13.2 g/dL (12.0-15.0); Mean Corpuscular HGB Conc 35.4 g/dl (32-36); Mean Corpuscular Hemoglobin 32.9 pg (26-34); Platelet Count Result 227 k/mm3 (150-375); Red Blood Count 4.01 M/mm3 (4.2-5.4); White Blood Count 10.1 K/mm3 (4.5-10.0)
[2022-09-05 10:37] LABS: Alanine Aminotransferase 33 U/L (6-35); Albumin Level 3.5 g/dL (3.5-5.1); Alkaline Phosphatase 64 U/L (38-126); Anion Gap 10 mmol/L (8-16); Aspartate Amino Transferase 49 U/L (14-36); Bilirubin,Total 0.4 mg/dL (0.2-1.3); Calcium 8.5 mg/dL (8.4-10.2); Carbon Dioxide 24 mmol/L (22-30); Chloride 105 mmol/L (98-107); Estimated CRCL calculation 75 ml/min; Estimated Glomerular Filt Rate > 60; Glucose 91 mg/dL (65-110); Magnesium 1.6 mg/dL (1.6-2.3); Potassium 3.6 mmol/L (3.4-5.0); Sodium 139 mmol/L (137-145)
[2022-09-05] MEDS: MAGNESIUM SULF 4 GM/WATER100ML 4 GM/100 ML BAG IVPB (11:44)
[2022-09-05] MEDS: ACETAMINOPHEN 325 MG TABLET 650 MG PO (11:56)
[2022-09-05 14:37] LABS: Blood Urea Nitrogen < 2 mg/dL (7-17)
[2022-09-05 16:05] VITALS: BP 115/61; PULSE 63; RESP 14; TEMP 35.7; O2SAT 100
[2022-09-05] MEDS: RIVAROXABAN 20 MG TABLET PO (17:38)
[2022-09-05] MEDS: HALOPERIDOL 1 MG TABLET 2 MG PO (20:09)
[2022-09-05 20:34] VITALS: BP 103/60; PULSE 65; RESP 18; TEMP 36.4; O2SAT 100
[2022-09-06] MEDS: HYDROcodone/acetaminophen (*CRX) 5-325 MG TABLET 1 TAB PO (00:57)
[2022-09-06] MEDS: ONDANSETRON INJ 4 MG/2 ML VIAL IV PUSH (01:13)
[2022-09-06 01:51] VITALS: O2SAT 100
[2022-09-06 05:12] VITALS: BP 128/73; PULSE 64; RESP 18; TEMP 36.3; O2SAT 100
[2022-09-06 05:42] LABS: Hematocrit 38.3 % (37.0-47.0); Mean Corpuscular HGB Conc 33.9 g/dl (32-36); Mean Corpuscular Hemoglobin 33.1 pg (26-34); Mean Corpuscular Volume 97.5 fl (80-100); Mean Platelet Volume 10.9 fl (7.4-10.4); Platelet Count Result 226 k/mm3 (150-375); Red Blood Count 3.93 M/mm3 (4.2-5.4); Red Cell Distribution Width 12.3 % (11.5-14.5); White Blood Count 8.8 K/mm3 (4.5-10.0)
[2022-09-06] MEDS: METOCLOPRAMIDE HCL INJ 10 MG/2 ML VIAL 5 MG IV PUSH (05:43)
[2022-09-06 05:57] LABS: Alanine Aminotransferase 26 U/L (6-35); Albumin Level 3.1 g/dL (3.5-5.1); Alkaline Phosphatase 59 U/L (38-126); Anion Gap 11 mmol/L (8-16); Aspartate Amino Transferase 35 U/L (14-36); Bilirubin,Total 0.4 mg/dL (0.2-1.3); Blood Urea Nitrogen 3 mg/dL (7-17); Calcium 7.9 mg/dL (8.4-10.2); Carbon Dioxide 28 mmol/L (22-30); Chloride 100 mmol/L (98-107); Estimated CRCL calculation 66 ml/min; Estimated Glomerular Filt Rate > 60; Glucose 107 mg/dL (65-110); Magnesium 1.9 mg/dL (1.6-2.3); Potassium 3.8 mmol/L (3.4-5.0); Sodium 139 mmol/L (137-145)
--- NOTE | 2022-09-06 06:57 | WPDGIPROGNO ---
Progress Note: A&P Assessment and Plan (1) Nausea and vomiting: Code(s): R11.2 - Nausea with vomiting, unspecified Status: Acute Assessment and Plan: No longer nauseated. She ate well last night. (2) Diarrhea: Code(s): R19.7 - Diarrhea, unspecified Status: Acute Assessment and Plan: Diarrhea has resolved. She is tentatively scheduled for colonoscopy next month. Assuming her diarrhea does not return, she may not need to do that but we will leave her on the schedule for now (3) Right lower quadrant abdominal pain: Code(s): R10.31 - Right lower quadrant pain Status: Acute Assessment and Plan: resolved after few days (4) Abnormal CT scan, gastrointestinal tract: Code(s): R93.3 - Abnormal findings on diagnostic imaging of other parts of digestive tract Status: Acute (5) Activated protein C resistance: Code(s): D68.51 - Activated protein C resistance Status: Acute Assessment and Plan: back on Xarelto (6) Dysphagia: Code(s): R13.10 - Dysphagia, unspecified Status: Acute (7) Right upper quadrant abdominal pain: Code(s): R10.11 - Right upper quadrant pain Status: Acute Assessment and Plan: MRCP was normal except for the hepatic steatosis. I had ordered amitriptyline for her last night. She declined it because she states that she had been told that there was a suicide risk with many antidepressants. 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 I explained her that this is like fibromyalgia, chronic pain without a disease. I explained her that amitriptyline has been shown to be effective in both conditions. She is not sure that she should take it therefore she will discuss that with her psychiatrist. (8) Elevated liver enzymes: Code(s): R74.8 - Abnormal levels of other serum enzymes Status: Acute Plan after long discussion I told Mirian that think we can continue her investigation as an outpatient. She is agreeable with that. She is scheduled to have a colonoscopy as an outpatient next month [facility] [place]. And I told her she should keep that appointment Time Spent With Patient Time: Thirty-one minutes Subjective Date/time seen: Mirian Bueno is a 42-year-old female with a history of SLE, PUD, pericardial effusion, schizoaffective disorder, bipolar disorder, prior suicide attempt, hyperlipidemia, hypokalemia, fibromyalgia, endometriosis, anemia, asthma, ? antiphospholipid disorder maintained on Xarelto, and multiple other medical problems who is seen in follow-up for nausea and vomiting.? The patient feels very poorly today.? She is tearful, stating she has very severe nausea.? Not much relief with the Zofran.? She has not been able to tolerate any liquids and states she cannot keep anything down.? She has some abdominal discomfort which she rates as 4/10.? Denies diarrhea, states she has not had any bowel movements during this admission.? Denies fever or chills.? No shortness breath, cough, chest pain. 09/05/22? 07:44 ?today she states that her pain is primarily in the right upper quadrant.? She has been able to eat.? Reglan was started yesterday before meals and she feels it is helping somewhat.? She has had no vomiting.? She does continue to request morphine and or hydrocodone for pain.? The nursing staff feels that she is actually more comfortable than she appears because when days enter the room she seems to feign? a great deal of pain,? moaning, etcetera suggesting that her true pain may not be as severe as she lets on to be. ? Her C-reactive protein on admission was elevated but is now normal.? I told the patient that we may need to perform an MRI to look at her right upper quadrant she added that her primary care
[2022-09-06] MEDS: SENNA/DOCUSATE SODIUM TABLET 1 TAB PO (08:47)
[2022-09-06] MEDS: PANTOPRAZOLE SODIUM IV 40 MG VIAL IV PUSH (08:47)
[2022-09-06] MEDS: POTASSIUM CHLORIDE 20 MEQ TABLET.ER PO (08:47)
[2022-09-06] MEDS: ASPIRIN 325 MG TABLET PO (08:48)
[2022-09-06] MEDS: lamoTRIgine 25 MG TABLET PO (09:53)
--- NOTE | 2022-09-06 10:36 | P.DS_ITS ---
DS: Admitting Diagnosis Discharge Date 09/06/22 1030 Admitting Diagnosis Colitis, electrolyte abnormality DS: Discharge Diagnosis Discharge Diagnosis (1) Nausea and vomiting: Code(s): R11.2 - Nausea with vomiting, unspecified Status: Acute Assessment and Plan: * presented with persistent nausea and vomiting, unable to tolerate solids or liquids * Appreciate GI consultation * Diet advanced to regular at this time * DC fluids at this time * may be related to cyclic vomiting from frequent marijuana use. reiterated about limiting marijuana use * Abd xray just showed stool paucity and lactic acid 1.9 * Liver enzymes are slightly elevated * Continue with Reglan at this time * MRCP ordered * Lipase 51 * Supportive care (2) Diarrhea: Code(s): R19.7 - Diarrhea, unspecified Status: Acute Assessment and Plan: * ongoing issue, however no episodes of diarrhea this admission * stool cultures Campylobacter, shigella, and salmonella are not detected * Other stool cultures still pending * per GI, serology for inflammatory disease from 3 years ago was negative * supportive care * not likely to be infectious, will discontinue Flagyl at this time. (3) Hypokalemia: Code(s): E87.6 - Hypokalemia Status: Acute Assessment and Plan: * secondary to vomiting and diarrhea. Potassium 3.6 today. * 20 mEq PO Kcl daily continued * Probably from the diarrhea * Continue to trend * Monitor BMP (4) Hypomagnesemia: Code(s): E83.42 - Hypomagnesemia Status: Acute Assessment and Plan: * As above, secondary to vomiting and diarrhea. * Improved with supplementation. * Mag 1.6 again today * Replace with 4gm again (5) Gastritis: Code(s): K29.70 - Gastritis, unspecified, without bleeding Status: Acute Assessment and Plan: * Gastritis evident on EGD performed yesterday, otherwise unremarkable * Protonix 40 mg b.i.d. Continue IV until better tolerating PO intake * appreciate GI consultation * WBC normal * Consider antibiotics if no improvement this afternoon. (6) Psychiatric illness: Code(s): F99 - Mental disorder, not otherwise specified Status: Acute Assessment and Plan: * Patient with history of bipolar disorder, schizoaffective disorder, anxiety, depression * Continue home Seroquel, Haldol, * Patient on extended release lamotrigine which is nonformulary * Home Vraylar is non formulary as is extended release lamotrigine. Spoke with patient about having someone bring this in, she states no one available to bring in. Vraylar on hold. Will transition to immediate release lamotrigine 25 mg daily. Discussed with pharmacy. * Could be the reason for not having any improvements DS: Summary Hospital Course Hospital Course: Patient is a 42-year-old female with a past medical history of asthma, anemia, bipolar disorder, depression hyperlipidemia, schizoaffective disorder who presented to the ED with complaints of severe nausea and vomiting and abdominal pain. Patient is also complaining of severe diarrhea for the last few months. GI has been consulted patient went for an EGD. EGD did show some gastritis. Diet was advanced and patient has been tolerating a regular diet. Patient was also getting IV fluids and antiemetics. Liver enzymes were elevated then trend down
--- NOTE | 2022-09-06 10:36 | PM.DS ---
DS: Admitting Diagnosis Discharge Date 09/06/22 1030 Admitting Diagnosis Colitis, electrolyte abnormality DS: Discharge Diagnosis Discharge Diagnosis (1) Nausea and vomiting: Code(s): R11.2 - Nausea with vomiting, unspecified Status: Acute Assessment and Plan: presented with persistent nausea and vomiting, unable to tolerate solids or liquids Appreciate GI consultation Diet advanced to regular at this time DC fluids at this time may be related to cyclic vomiting from frequent marijuana use. reiterated about limiting marijuana use Abd xray just showed stool paucity and lactic acid 1.9 Liver enzymes are slightly elevated Continue with Reglan at this time MRCP ordered Lipase 51 Supportive care (2) Diarrhea: Code(s): R19.7 - Diarrhea, unspecified Status: Acute Assessment and Plan: ongoing issue, however no episodes of diarrhea this admission stool cultures Campylobacter, shigella, and salmonella are not detected Other stool cultures still pending per GI, serology for inflammatory disease from 3 years ago was negative supportive care not likely to be infectious, will discontinue Flagyl at this time. (3) Hypokalemia: Code(s): E87.6 - Hypokalemia Status: Acute Assessment and Plan: secondary to vomiting and diarrhea. Potassium 3.6 today. 20 mEq PO Kcl daily continued Probably from the diarrhea Continue to trend Monitor BMP (4) Hypomagnesemia: Code(s): E83.42 - Hypomagnesemia Status: Acute Assessment and Plan: As above, secondary to vomiting and diarrhea. Improved with supplementation. Mag 1.6 again today Replace with 4gm again (5) Gastritis: Code(s): K29.70 - Gastritis, unspecified, without bleeding Status: Acute Assessment and Plan: Gastritis evident on EGD performed yesterday, otherwise unremarkable Protonix 40 mg b.i.d. Continue IV until better tolerating PO intake appreciate GI consultation WBC normal Consider antibiotics if no improvement this afternoon. (6) Psychiatric illness: Code(s): F99 - Mental disorder, not otherwise specified Status: Acute Assessment and Plan: Patient with history of bipolar disorder, schizoaffective disorder, anxiety, depression Continue home Seroquel, Haldol, Patient on extended release lamotrigine which is nonformulary Home Vraylar is non formulary as is extended release lamotrigine. Spoke with patient about having someone bring this in, she states no one available to bring in. Vraylar on hold. Will transition to immediate release lamotrigine 25 mg daily. Discussed with pharmacy. Could be the reason for not having any improvements DS: Summary Hospital Course Hospital Course: Patient is a 42-year-old female with a past medical history of asthma, anemia, bipolar disorder, depression hyperlipidemia, schizoaffective disorder who presented to the ED with complaints of severe nausea and vomiting and abdominal pain. Patient is also complaining of severe diarrhea for the last few months. GI has been consulted patient went for an EGD. EGD did show some gastritis. Diet was advanced and patient has been tolerating a regular diet. Patient was also getting IV fluids and antiemetics. Liver enzymes were elevated then trend down and are currently stable. MRCP was performed and showed no new findings. Electrolytes did seem to be labile with low potassium and magnesium which were replaced as indicated. Patient also had a very emotional roller coaster while being here at the hospital. She does seem to be doing better and is ready to go today. She was sitting on the couch talking to her sister patient also been started on IV Reglan before meals for the help of gastric emptying. It does seem to be helping. Patient is currently doing well labs are stable and pat
--- NOTE | 2022-09-06 11:13 | PCNFU ---
Nutrition Follow-Up Complete: Unitended weight loss as related to N/V/D as evidenced by unintended weight loss of 20 ibs (9%) in the past 2 months. Goal:Meet estimated nutritional needs Pt current nutrition is Regular, Ensure compact BID. Nutrition recommendation: Continue with current plan of care Last recorded weight is 65.7 kg - stable. Bowel Motility: +BM 09/03 Labs Reviewed: Alb:3.1, BUN:3 Meds Noted: Skin:WNL Additional Notes: Pt on a regular diet with Ensure compact BID. Intake good at 75-100% of meals. Tolerating. Agree with orders. Will monitor and follow up every 7 days
[2022-09-10 20:22] LABS: Calprotectin, Stool <5 mcg/g
[2022-09-12 18:21] LABS: Pancreatic Elastase, Stool >500 mcg/g
== END 2022-09-06 11:32 | disposition home or self-care (01) | DRG 394 ==
LOC: ANHED 20:29 → ANH3MEDSUR 09-01 03:38 → ANH3MED 09-01 05:54
PROVIDERS: Internal Medicine Gastroenterology; Physician Assistant; Admitting Provider Internal Medicine; Emergency Provider Emergency Medicine; PCP Internal Medicine; Visit Provider Nurse Practitioner
PROC: 0DJ08ZZ Inspection of Upper Intestinal Tract, Via Natural or Artificial Opening Endoscopic (ICD-10-PCS; CPT 43235; principal; 2022-09-01 14:30)
DX: R11.15 Cyclical vomiting syndrome unrelated to migraine (principal); D68.51 Activated protein C resistance; E72.12 Methylenetetrahydrofolate reductase deficiency; F12.90 Cannabis use, unspecified, uncomplicated; K29.70 Gastritis, unspecified, without bleeding; D82.4 Hyperimmunoglobulin E [IgE] syndrome; E87.6 Hypokalemia; E83.42 Hypomagnesemia; E78.5 Hyperlipidemia, unspecified; D64.9 Anemia, unspecified; F31.9 Bipolar disorder, unspecified; F41.9 Anxiety disorder, unspecified; F25.9 Schizoaffective disorder, unspecified; F03.90 Unspecified dementia, unspecified severity, without behavioral disturbance, psychotic disturbance, mood disturbance, and anxiety; F17.210 Nicotine dependence, cigarettes, uncomplicated; G89.29 Other chronic pain; J45.20 Mild intermittent asthma, uncomplicated; J44.9 Chronic obstructive pulmonary disease, unspecified; K21.9 Gastro-esophageal reflux disease without esophagitis; K58.9 Irritable bowel syndrome, unspecified; K27.9 Peptic ulcer, site unspecified, unspecified as acute or chronic, without hemorrhage or perforation; K76.0 Fatty (change of) liver, not elsewhere classified; M19.90 Unspecified osteoarthritis, unspecified site; M32.9 Systemic lupus erythematosus, unspecified; R74.8 Abnormal levels of other serum enzymes; R19.7 Diarrhea, unspecified; R13.10 Dysphagia, unspecified; Z79.82 Long term (current) use of aspirin; Z87.442 Personal history of urinary calculi; Z88.0 Allergy status to penicillin; Z79.01 Long term (current) use of anticoagulants; Z91.51 Personal history of suicidal behavior; Z90.710 Acquired absence of both cervix and uterus
CPT/HCPCS: 36415; 71045; 74018; 74177; 74183; 76376; 80048; 80053; 80307; 81001; 82653; 82948; 83036; 83605; 83690; 83735; 83993; 84132; 84145; 84484; 85025; 85027; 86140; 87040; 87045; 87081; 87269; 87272; 87427; 88305; 89055; 96361; 96365; 96366; 96367; 96368; 96372; 96375; 96376; 99285; A9270; A9577; C9113; G0378; J0500; J2270; J2405; J2550; J2704; J2765; J3475; J3480; J7030; J7040; J7120; Q9967

== ENCOUNTER 2022-10-26 00:16 | Day surgery (SDC) | payer MEDICARE, MEDICAID, SELFPAY ==
[2022-09-29 09:06] VITALS: BMI 26.5
[2022-10-26 11:55] VITALS: BP 115/70; PULSE 67; RESP 18; TEMP 36.2; O2SAT 100
[2022-10-26] MEDS: LACTATED RINGERS 1,000 ML 150 ML IV CONT (12:04)
[2022-10-26 12:09] LABS: Glucose Point of Care 282 mg/dl (65-105)
--- NOTE | 2022-10-26 12:37 | WPDANESEPPF ---
Anes - Initial Pre Proc Eval Procedure: Operation Date: 10/26/22 13:00 Proposed Procedures p Colonoscopy - Juancho Miramontes MD Date/Time: 10/26/22 12:37 Surgeon: Juancho Miramontes MD Pre Op Diagnosis: diarrhea, abnormal ct scan Patient Data Age: 42 Gender: F Height: 1.6 m Weight: 67.7 kg Last Vital Signs Temp 36.2 C L 10/26/22 11:55 Pulse 67 10/26/22 11:55 Resp 18 10/26/22 11:55 BP 115/70 10/26/22 11:55 Pulse Ox 100 10/26/22 11:55 O2 Del Method Room Air 10/26/22 11:55 Allergies Allergy/AdvReac Type Severity Reaction Status Date / Time pregabalin [From Lyrica] Allergy Severe Difficulty Verified 10/26/22 11:50 Breathing ropinirole Allergy Severe parkinsons Verified 10/26/22 11:50 like symptoms amoxicillin Allergy Intermediate Rash Verified 10/26/22 11:50 azithromycin Allergy Intermediate Hives Verified 10/26/22 11:50 cephalexin Allergy Intermediate Hives / Verified 10/26/22 11:50 Red Face eluxadoline Allergy Intermediate Diarrhea Verified 10/26/22 11:50 levofloxacin Allergy Intermediate rash Verified 10/26/22 11:50 Penicillins Allergy Intermediate rash Verified 10/26/22 11:50 prednisone Allergy Intermediate Rash Verified 10/26/22 11:50 sulfamethoxazole Allergy Intermediate Rash Verified 10/26/22 11:50 [From Bactrim] tramadol Allergy Intermediate Vomiting Verified 10/26/22 11:50 trifluoperazine Allergy Intermediate sick Verified 10/26/22 11:50 trimethoprim [From Bactrim] Allergy Intermediate Rash Verified 10/26/22 11:50 clavulanic acid Allergy Mild Rash Verified 10/26/22 11:50 [From Augmentin] Home Medications Medication Instructions Recorded Confirmed Type dextroamphetamine-amphetamine ER 30 mg PO DAILY 09/20/19 09/29/22 History 30 mg 24hr capsule,extend release albuterol sulfate 90 mcg/actuation 2 puff inhalation Q4-6H PRN 11/02/19 09/29/22 Rx aerosol inhaler (ProAir HFA) shortness of breath or wheezing #1 device folic acid 1 mg tablet 1 mg PO DAILY 04/24/20 09/29/22 History rivaroxaban 20 mg tablet (Xarelto) 20 mg PO DAILY 05/01/20 10/26/22 History aspirin 325 mg tablet 325 mg PO DAILY 05/26/20 09/29/22 History famotidine 20 mg tablet (Pepcid) 20 mg PO BID #14 tabs 05/12/21 09/29/22 Rx cariprazine 6 mg capsule (Vraylar) 6 mg PO DAILY 09/01/22 09/29/22 History cyanocobalamin (vitamin B-12) 1,000 mcg subcut ONCE 09/01/22 09/29/22 History 1,000 mcg/mL injection solution (Dodex) glipizide 5 mg tablet 2.5 mg PO DAILY 09/01/22 09/29/22 History haloperidol 2 mg tablet 2 mg PO HS 09/01/22 09/29/22 History lamotrigine 25 mg tablet,extended 25 mg PO DAILY 09/01/22 09/29/22 History release 24 hr ondansetron 4 mg disintegrating 4 mg PO Q6H PRN nausea and 09/09/22 09/29/22 Rx tablet vomiting #30 tabs metoclopramide HCl 5 mg tablet 5 mg PO .before meals PRN Nausea 09/29/22 09/29/22 History (Reglan) Laboratory Tests 10/26/22 12:01 POC Capillary Glucose 282 mg/dl H mg/dl (65-105) Patient hx anesthesia problems: none Family hx anesthesia problems: none Results Review: All pre-operative results and documents have been reviewed as part of the pre-operative evaluation. [facility] Past Medical History Medical History Anemia Angina at rest Anxiety Arthritis Asthma Bipolar disorder Bronchitis Chronic pain Cyst LUE, removed Dementia Depression Diarrhea Eczema Endometriosis Fibromyalgia GERD (gastroesophageal reflux disease) Gestational diabetes HLD (hyperlipidemia) Hypokalemia IBS (irritable bowel syndrome) Infertility Kidney stone Knee fracture, left Liver disease Lupus (systemic lupus erythematosus) MTHFR gene mutation Nausea and vomiting Ovarian cyst Pelvic floor dysfunction Pericardial effusion Pericarditis Pneumonia Previous known suicide attempt PUD (peptic ulcer disease) Right lower quadrant abdominal pain Schizoaffective disorder Urolithiasis UTI
[2022-10-26 13:19] VITALS: BP 112/70; PULSE 79; RESP 26; O2SAT 100
[2022-10-26 13:29] VITALS: BP 101/64; PULSE 73; RESP 27; O2SAT 100
[2022-10-26 13:37] VITALS: BP 101/64; PULSE 73; RESP 27; TEMP 36.2; O2SAT 100
[2022-10-26 13:48] VITALS: BP 104/60; PULSE 70; RESP 19; O2SAT 100
--- NOTE | 2022-11-02 14:28 | PM.HPGS ---
History of Present Illness History of Present Illness Consent: Risks, benefits, and alternatives have been discussed and questions answered. Patient agrees to proceed with procedure. Chief complaint: diarrhea, abnormal ct scan Narrative: Mirian Bueno is a 42 year old female Presents for colonoscopy. Patient recently hospitalized. She had an EGD at that time that showed gastritis. Patient has been having ongoing diarrhea. Clinically was felt to potentially have irritable bowel syndrome. A CT scan was performed which revealed a large amount of fluid in the intestines consistent with her diarrhea. Plan was to proceed with colonoscopy. Patient denies any bleeding or weight loss. Her family history is noncontributory. Review of Systems Review of Systems: Review of systems noncontributory. [facility] Past Medical History Medical History Anemia Angina at rest Anxiety Arthritis Asthma Bipolar disorder Bronchitis Chronic pain Cyst LUE, removed Dementia Depression Diarrhea Eczema Endometriosis Fibromyalgia GERD (gastroesophageal reflux disease) Gestational diabetes HLD (hyperlipidemia) Hypokalemia IBS (irritable bowel syndrome) Infertility Kidney stone Knee fracture, left Liver disease Lupus (systemic lupus erythematosus) MTHFR gene mutation Nausea and vomiting Ovarian cyst Pelvic floor dysfunction Pericardial effusion Pericarditis Pneumonia Previous known suicide attempt PUD (peptic ulcer disease) Right lower quadrant abdominal pain Schizoaffective disorder Urolithiasis UTI (urinary tract infection) Surgical History Surgical History Cholecystectomy planned H/O breast augmentation H/O: hysterectomy History of gynecologic surgery Related to endometriosis, x3 Family History Family History Grandparent Family history of coronary artery disease Father Family history of diabetes mellitus in first degree relative Diabetes mellitus Asthma Family history of arthritis Sibling Asthma Mother Family history of arthritis Social History Social History Smoking packs per day: 0.5 Smoking cigarettes per day: 10.0 Years smoked: 30 Smoking pack-years: 15.00 Smoking status: Current every day smoker Tobacco type: cigarettes Second hand tobacco smoke exposure: Yes Alcohol intake: never Substance use: current Substance use type: marijuana Other substance usage details: MEDICAL MARIJUANA - COUPLE TIMES A WEEK Living arrangements: with family Gender identity (if verbalized by the patient): Female Sexual Orientation (if Verbalized by the Patient): Straight or Heterosexual Spiritual care concerns: No Meds Home Medications and Allergies Home Medications Medication Instructions Recorded Confirmed Type dextroamphetamine-amphetamine ER 30 mg PO DAILY 09/20/19 09/29/22 History 30 mg 24hr capsule,extend release albuterol sulfate 90 mcg/actuation 2 puff inhalation Q4-6H PRN 11/02/19 09/29/22 Rx aerosol inhaler (ProAir HFA) shortness of breath or wheezing #1 device folic acid 1 mg tablet 1 mg PO DAILY 04/24/20 09/29/22 History rivaroxaban 20 mg tablet (Xarelto) 20 mg PO DAILY 05/01/20 10/26/22 History aspirin 325 mg tablet 325 mg PO DAILY 05/26/20 09/29/22 History famotidine 20 mg tablet (Pepcid) 20 mg PO BID #14 tabs 05/12/21 09/29/22 Rx cariprazine 6 mg capsule (Vraylar) 6 mg PO DAILY 09/01/22 09/29/22 History cyanocobalamin (vitamin B-12) 1,000 mcg subcut ONCE 09/01/22 09/29/22 History 1,000 mcg/mL injection solution (Dodex) glipizide 5 mg tablet 2.5 mg PO DAILY 09/01/22 09/29/22 History haloperidol 2 mg tablet 2 mg PO HS 09/01/22 09/29/22 History lamotrigine 25 mg tablet,extended 25 mg PO DAILY 09/01/22 09/29/22 History release 24 hr ondanse
== END 2022-10-26 13:49 | disposition home or self-care (01) ==
PROVIDERS: PCP Internal Medicine; Visit Provider Internal Medicine Gastroenterology
PROC: 0DJD8ZZ Inspection of Lower Intestinal Tract, Via Natural or Artificial Opening Endoscopic (ICD-10-PCS; CPT 45378; principal; 2022-10-26 13:00)
DX: R19.7 Diarrhea, unspecified (principal); K63.5 Polyp of colon; K64.8 Other hemorrhoids; E78.5 Hyperlipidemia, unspecified; M32.9 Systemic lupus erythematosus, unspecified; K21.9 Gastro-esophageal reflux disease without esophagitis; E72.12 Methylenetetrahydrofolate reductase deficiency; F25.9 Schizoaffective disorder, unspecified; J45.909 Unspecified asthma, uncomplicated; F31.9 Bipolar disorder, unspecified; M79.7 Fibromyalgia; F03.90 Unspecified dementia, unspecified severity, without behavioral disturbance, psychotic disturbance, mood disturbance, and anxiety; F17.210 Nicotine dependence, cigarettes, uncomplicated; F12.90 Cannabis use, unspecified, uncomplicated; Z79.51 Long term (current) use of inhaled steroids; Z79.01 Long term (current) use of anticoagulants; Z79.82 Long term (current) use of aspirin; Z79.84 Long term (current) use of oral hypoglycemic drugs
CPT/HCPCS: 45385; 45380; 82948; 88305; J2704; J7120

== ENCOUNTER 2023-07-05 05:16 | Emergency (ER) | payer MEDICARE, MEDICAID, SELFPAY ==
--- NOTE | ~2023-07-05 | CT_ITS ---
EXAMINATION: CT abdomen pelvis w con DATE: 07/05/2023 06:35 INDICATION: Abdominal pain and distention. TECHNIQUE: Computed tomography (CT) of the abdomen and pelvis was performed with 100 mL Omnipaque 350 intravenous contrast. Automated exposure control and iterative reconstruction technique were employe d. The dose-length product was 596.79 mGy-cm. COMPARISON: CT abdomen and pelvis 08/31/2022 FINDINGS: The visualized portions of the lung bases are clear without pneumonia or pleural effusion. The heart size is normal. No pericardial effusion. There is diffuse hepatic steatosis. There are whitfield ges of cholecystectomy. The spleen, pancreas, and adrenal glands are normal. There is cortical thinni ng of the kidneys. There are cysts in left kidney measuring up to 6 mm. The bladder is distended. The re are no dilated loops of bowel. The appendix is normal. Aortic atherosclerosis is noted. There are no pathologically enlarged lymph nodes. There is no free intraperitoneal fluid. There is mild thoraci c and lumbar spondylosis. IMPRESSION: 1. Diffuse hepatic steatosis. Reviewed, dictated and finalized at location A.
[2023-07-05 05:19] VITALS: BP 156/96; PULSE 90; RESP 14; TEMP 36.4; O2SAT 99
[2023-07-05 05:46] LABS: Basophils Absolute Auto 0.1 K/mm3 (0.0-0.1); Eosinophils Absolute Auto 0.2 K/mm3 (0-0.3); Eosinophils Percent Auto 1.5 % (0-4.4); Hematocrit 44.4 % (37.0-47.0); Hemoglobin 15.4 g/dL (12.0-15.0); Immature Granulocyte Absolute 0.12 K/mm3 (0.00-0.031); Lymphocytes Absolute Auto 3.75 K/mm3 (0.9-3.2); Lymphocytes Percent Auto 32.6 % (18.3-44.2); Mean Corpuscular HGB Conc 34.7 g/dl (32-36); Mean Corpuscular Hemoglobin 34.4 pg (26-34); Mean Corpuscular Volume 99.1 fl (80-100); Mean Platelet Volume 10.4 fl (7.4-10.4); Monocytes Absolute Auto 0.7 K/mm3 (0.1-0.6); Monocytes Percent Auto 5.6 % (2.6-8.5); Neutrophils Absolute Auto 6.7 K/mm3 (1.3-6.7); Neutrophils Percent Auto 58.3 % (45.5-73.1); Platelet Count Result 255 k/mm3 (150-375); Red Blood Count 4.48 M/mm3 (4.2-5.4); Red Cell Distribution Width 12.8 % (11.5-14.5); White Blood Count 11.5 K/mm3 (4.5-10.0)
--- NOTE | 2023-07-05 05:48 | ECG_ITS ---
Measurements Intervals [place] Rate: 62 P: 36 AR: 145 QRS: 25 QRSD: 93 T: 28 QT: 411 QTc: 418 Interpretive Statements SINUS RHYTHM COMPARED TO ECG 05/12/2021 12:43:56 NO SIGNIFICANT CHANGES Electronically Signed On 07-05-2023 14:38:47 CDT by Ana Paula Danielle M.D.
--- NOTE | 2023-07-05 05:51 | ED.GENADULT ---
HPI - General Adult General Chief complaint: Abdominal Pain Stated complaint: Abdominal pain Time Seen by Provider: 07/05/23 05:41 History of Present Illness HPI narrative: this is a 43-year-old female with with history of IBS, schizophrenia sudden onset of abdominal pain. Patient states she frequently has abdominal pain but she has never had anything like this before. It started around 11:00 p.m. while she was watching TV, is in the upper part of her abdomen, sharp nonradiating 10 out 10 intensity and constant. She has never experienced pain like this before and there are no exacerbating relieving factors. It is associated with nausea and subjective fever and chills but no vomiting. She also notes she has had abdominal bloating for the last 3 weeks. Patient uses marijuana daily. Related Data Home Medications Medication Instructions Recorded Confirmed dextroamphetamine-amphetamine ER 30 mg PO DAILY 09/20/19 09/29/22 30 mg 24hr capsule,extend release folic acid 1 mg tablet 1 mg PO DAILY 04/24/20 09/29/22 rivaroxaban 20 mg tablet (Xarelto) 20 mg PO DAILY 05/01/20 10/26/22 aspirin 325 mg tablet 325 mg PO DAILY 05/26/20 09/29/22 cariprazine 6 mg capsule (Vraylar) 6 mg PO DAILY 09/01/22 09/29/22 cyanocobalamin (vitamin B-12) 1,000 mcg subcut ONCE 09/01/22 09/29/22 1,000 mcg/mL injection solution (Dodex) glipizide 5 mg tablet 2.5 mg PO DAILY 09/01/22 09/29/22 haloperidol 2 mg tablet 2 mg PO HS 09/01/22 09/29/22 lamotrigine 25 mg tablet,extended 25 mg PO DAILY 09/01/22 09/29/22 release 24 hr metoclopramide HCl 5 mg tablet 5 mg PO .before meals PRN Nausea 09/29/22 09/29/22 (Reglan) Allergies Allergy/AdvReac Type Severity Reaction Status Date / Time pregabalin [From Lyrica] Allergy Severe Difficulty Verified 10/26/22 11:50 Breathing ropinirole Allergy Severe parkinsons Verified 10/26/22 11:50 like symptoms amoxicillin Allergy Intermediate Rash Verified 10/26/22 11:50 azithromycin Allergy Intermediate Hives Verified 10/26/22 11:50 cephalexin Allergy Intermediate Hives / Verified 10/26/22 11:50 Red Face eluxadoline Allergy Intermediate Diarrhea Verified 10/26/22 11:50 levofloxacin Allergy Intermediate rash Verified 10/26/22 11:50 Penicillins Allergy Intermediate rash Verified 10/26/22 11:50 prednisone Allergy Intermediate Rash Verified 10/26/22 11:50 sulfamethoxazole Allergy Intermediate Rash Verified 10/26/22 11:50 [From Bactrim] tramadol Allergy Intermediate Vomiting Verified 10/26/22 11:50 trifluoperazine Allergy Intermediate sick Verified 10/26/22 11:50 trimethoprim [From Bactrim] Allergy Intermediate Rash Verified 10/26/22 11:50 clavulanic acid Allergy Mild Rash Verified 10/26/22 11:50 [From Augmentin] PMFSH Past Medical History Medical History Anemia Angina at rest Anxiety Arthritis Asthma Bipolar disorder Bronchitis Chronic pain Cyst LUE, removed Dementia Depression Diarrhea Eczema Endometriosis Fibromyalgia GERD (gastroesophageal reflux disease) Gestational diabetes HLD (hyperlipidemia) Hypokalemia IBS (irritable bowel syndrome) Infertility Kidney stone Knee fracture, left Liver disease Lupus (systemic lupus erythematosus) MTHFR gene mutation Nausea and vomiting Ovarian cyst Pelvic floor dysfunction Pericardial effusion Pericarditis Pneumonia Previous known suicide attempt PUD (peptic ulcer disease) Right lower quadrant abdominal pain Schizoaffective disorder Urolithiasis UTI (urinary tract infection) Surgical History Surgical History Cholecystectomy planned H/O breast augmentation H/O: hysterectomy History of gynecologic surgery Related to endometriosis, x3 Family History Family History Grandparent Family history of coronary artery disease Father Family history of diabetes mellitus
[2023-07-05 05:55] LABS: Alanine Aminotransferase 48 U/L (6-35); Albumin Level 4.7 g/dL (3.5-5.1); Alkaline Phosphatase 77 U/L (38-126); Anion Gap 11 mmol/L (8-16); Aspartate Amino Transferase 51 U/L (14-36); Bilirubin,Total 0.5 mg/dL (0.2-1.3); Blood Urea Nitrogen 7 mg/dL (7-17); Calcium 9.2 mg/dL (8.4-10.2); Carbon Dioxide 25 mmol/L (22-30); Chloride 100 mmol/L (98-107); Estimated CRCL calculation 74 ml/min; Estimated Glomerular Filt Rate > 60; Glucose 173 mg/dL (65-110); Lipase 285 U/L (23-300); Sodium 136 mmol/L (137-145)
[2023-07-05 05:57] LABS: Glucose Point of Care 173 mg/dl (65-105)
[2023-07-05] MEDS: ONDANSETRON INJ 4 MG/2 ML VIAL IV PUSH (06:06)
[2023-07-05] MEDS: FAMOTIDINE 20 MG/2 ML VIAL IV PUSH (06:07)
[2023-07-05] MEDS: HALOPERIDOL LACTATE 5 MG/ML VIAL IM (06:07)
[2023-07-05] MEDS: SODIUM CHLORIDE 0.9% IV 1,000 ML 999 ML IV CONT (06:11)
[2023-07-05] MEDS: POTASSIUM CHLORIDE 20 MEQ PACKET (FOR LIQUID) 40 MEQ PO (06:18)
[2023-07-05 06:41] VITALS: PULSE 77; RESP 19; O2SAT 100
[2023-07-05 06:45] VITALS: PULSE 79; RESP 24; O2SAT 100
[2023-07-05] MEDS: METOCLOPRAMIDE HCL INJ 10 MG/2 ML VIAL IV PUSH (06:52)
[2023-07-05] MEDS: diphenhydrAMINE HCl INJ 50 MG/ML VIAL 25 MG IV PUSH (06:52)
[2023-07-05 07:16] LABS: Lactic Acid Reflex 1.5 mmol/L (0.7-2.0)
== END 2023-07-05 07:02 | disposition home or self-care (01) ==
PROVIDERS: Emergency Provider Emergency Medicine; PCP Internal Medicine
DX: R10.10 Upper abdominal pain, unspecified (principal); J45.909 Unspecified asthma, uncomplicated; E78.5 Hyperlipidemia, unspecified; D64.9 Anemia, unspecified; N80.9 Endometriosis, unspecified; K21.9 Gastro-esophageal reflux disease without esophagitis; K58.9 Irritable bowel syndrome, unspecified; K76.9 Liver disease, unspecified; M19.90 Unspecified osteoarthritis, unspecified site; M32.9 Systemic lupus erythematosus, unspecified; F25.9 Schizoaffective disorder, unspecified; F31.9 Bipolar disorder, unspecified; F41.9 Anxiety disorder, unspecified; F17.210 Nicotine dependence, cigarettes, uncomplicated; Z87.440 Personal history of urinary (tract) infections; Z87.442 Personal history of urinary calculi; Z87.01 Personal history of pneumonia (recurrent); Z87.11 Personal history of peptic ulcer disease; Z79.84 Long term (current) use of oral hypoglycemic drugs; Z79.01 Long term (current) use of anticoagulants; Z90.49 Acquired absence of other specified parts of digestive tract; Z90.710 Acquired absence of both cervix and uterus
CPT/HCPCS: 36415; 74177; 80053; 82948; 83605; 83690; 85025; 93005; 96361; 96372; 96374; 96375; 99284; A9270; J1200; J1630; J2405; J2765; J7030; Q9967

== ENCOUNTER 2023-07-17 14:11 | Emergency (ER) | payer MEDICARE, MEDICAID, SELFPAY ==
[2023-07-17 14:13] VITALS: BP 143/86; PULSE 87; RESP 17; TEMP 36.6; O2SAT 100
--- NOTE | 2023-07-17 15:05 | ED.DENTAL ---
HPI - Dental/Oral General Chief complaint: Dental/Oral Stated complaint: tooth pain Time Seen by Provider: 07/17/23 14:15 History of Present Illness HPI Narrative: Patient is a 43-year-old female presenting with dental pain. Patient states that she had a molar pulled earlier this week. She was prescribed clindamycin and Tylenol with codeine. States she is unable to take the Tylenol with codeine as it upsets her stomach. States she is also unable to take NSAIDs due to upset stomach. States that she takes Reglan twice daily which has not been helping. She has not called her PCP or her dentist after the pain worsened this weekend. States that sometimes it feels swollen. States that she feels general malaise. No fevers or chills. No difficulty swallowing or breathing. Handling secretions easily. Related Data Home Medications Medication Instructions Recorded Confirmed dextroamphetamine-amphetamine ER 30 mg PO DAILY 09/20/19 09/29/22 30 mg 24hr capsule,extend release folic acid 1 mg tablet 1 mg PO DAILY 04/24/20 09/29/22 rivaroxaban 20 mg tablet (Xarelto) 20 mg PO DAILY 05/01/20 10/26/22 aspirin 325 mg tablet 325 mg PO DAILY 05/26/20 09/29/22 cariprazine 6 mg capsule (Vraylar) 6 mg PO DAILY 09/01/22 09/29/22 cyanocobalamin (vitamin B-12) 1,000 mcg subcut ONCE 09/01/22 09/29/22 1,000 mcg/mL injection solution (Dodex) glipizide 5 mg tablet 2.5 mg PO DAILY 09/01/22 09/29/22 haloperidol 2 mg tablet 2 mg PO HS 09/01/22 09/29/22 lamotrigine 25 mg tablet,extended 25 mg PO DAILY 09/01/22 09/29/22 release 24 hr metoclopramide HCl 5 mg tablet 5 mg PO .before meals PRN Nausea 09/29/22 09/29/22 (Reglan) Allergies Allergy/AdvReac Type Severity Reaction Status Date / Time pregabalin [From Lyrica] Allergy Severe Difficulty Verified 07/18/23 10:21 Breathing ropinirole Allergy Severe parkinsons Verified 07/18/23 10:21 like symptoms amoxicillin Allergy Intermediate Rash Verified 07/18/23 10:21 azithromycin Allergy Intermediate Hives Verified 07/18/23 10:21 cephalexin Allergy Intermediate Hives / Verified 07/18/23 10:21 Red Face eluxadoline Allergy Intermediate Diarrhea Verified 07/18/23 10:21 levofloxacin Allergy Intermediate rash Verified 07/18/23 10:21 Penicillins Allergy Intermediate rash Verified 07/18/23 10:21 prednisone Allergy Intermediate Rash Verified 07/18/23 10:21 sulfamethoxazole Allergy Intermediate Rash Verified 07/18/23 10:21 [From Bactrim] tramadol Allergy Intermediate Vomiting Verified 10/26/22 11:50 trifluoperazine Allergy Intermediate sick Verified 10/26/22 11:50 trimethoprim [From Bactrim] Allergy Intermediate Rash Verified 10/26/22 11:50 clavulanic acid Allergy Mild Rash Verified 10/26/22 11:50 [From Augmentin] Review of Systems Review of Systems: All systems reviewed & are unremarkable except as noted in HPI and below PMFSH Past Medical History Medical History Anemia Angina at rest Anxiety Arthritis Asthma Bipolar disorder Bronchitis Chronic pain Cyst LUE, removed Dementia Depression Diarrhea Eczema Endometriosis Fibromyalgia GERD (gastroesophageal reflux disease) Gestational diabetes HLD (hyperlipidemia) Hypokalemia IBS (irritable bowel syndrome) Infertility Kidney stone Knee fracture, left Liver disease Lupus (systemic lupus erythematosus) MTHFR gene mutation Nausea and vomiting Ovarian cyst Pelvic floor dysfunction Pericardial effusion Pericarditis Pneumonia Previous known suicide attempt PUD (peptic ulcer disease) Right lower quadrant abdominal pain Schizoaffective disorder Urolithiasis UTI (urinary tract infection) Surgical History Surgical History Cholecystectomy planned H/O breast augmentation H/O: hysterectomy History of gynecologic surgery Related to endometriosis, x3 Family History Family History (Reviewed 07/17/23 @ 1
== END 2023-07-17 15:29 | disposition home or self-care (01) ==
LOC: ANHED 15:17
PROVIDERS: Emergency Provider Emergency Medicine; PCP Internal Medicine
DX: K08.89 Other specified disorders of teeth and supporting structures (principal); F03.90 Unspecified dementia, unspecified severity, without behavioral disturbance, psychotic disturbance, mood disturbance, and anxiety; E78.5 Hyperlipidemia, unspecified; F17.210 Nicotine dependence, cigarettes, uncomplicated
CPT/HCPCS: 99281

== ENCOUNTER 2023-07-18 10:03 | Emergency (ER) | payer MEDICARE, MEDICAID, SELFPAY ==
--- NOTE | ~2023-07-18 | CT_ITS ---
CT of the Abdomen and Pelvis: Indication: Abdominal pain Technique: 2.5 mm axial scans were obtained through the abdomen and pelvis following intravenous adm inistration of 100 cc of Omnipaque 350. Dose reduction technique was used on this scan by utilizing a utomated exposure control and iterative reconstruction technique. The dose-length product (DLP) was 5 02.45 mGy-cm. COMPARISON: 07/05/2023 Findings: Scans through the lung bases are unremarkable. There is diffuse fatty infiltration of liver. Cholecystectomy clips are present. The spleen, pancreas , adrenals and kidneys are within normal limits. There are atherosclerotic calcifications of the aort a. No lymphadenopathy. No bowel obstruction or bowel wall thickening. There is no evidence to suggest acute appendicitis. Images through the pelvis were performed. Urinary bladder unremarkable. No pelvic mass seen. No ascit es. Impression: No acute abnormality. Diffuse fatty infiltration of the liver. Reviewed, dictated and finalized at [facility]. Impression: No acute abnormality. Diffuse fatty infiltration of the liver.
[2023-07-18 10:16] VITALS: BP 132/77; PULSE 85; RESP 24; TEMP 36.7; O2SAT 100
--- NOTE | 2023-07-18 10:46 | ECG_ITS ---
Measurements Intervals [place] Rate: 72 P: 46 CO: 164 QRS: 20 QRSD: 92 T: 31 QT: 410 QTc: 451 Interpretive Statements SINUS RHYTHM NONSPECIFIC T-WAVE ABNORMALITY ABNORMAL ECG COMPARED TO ECG 07/05/2023 05:57:47 NO SIGNIFICANT CHANGES Electronically Signed On 07-18-2023 12:05:53 CDT by Rainer Tanner M.D.
--- NOTE | 2023-07-18 10:48 | ED.ABDPAIN ---
HPI - Abdominal Pain General Chief Complaint: Abdominal Pain Stated Complaint: abd pain, bloated Time Seen by Provider: 07/18/23 10:30 Source: patient Mode of arrival: ambulatory Limitations: no limitations History of Present Illness HPI narrative: This is a 43 year old female that presents to the ER for abdominal pain. Ongoing since last night. Reports the pain is constant. Unrelieved by over the counter medication. Associated with nausea and vomiting. Denies fever, diarrhea, dysuria or hematuria. Related Data Home Medications Medication Instructions Recorded Confirmed dextroamphetamine-amphetamine ER 30 mg PO DAILY 09/20/19 09/29/22 30 mg 24hr capsule,extend release folic acid 1 mg tablet 1 mg PO DAILY 04/24/20 09/29/22 rivaroxaban 20 mg tablet (Xarelto) 20 mg PO DAILY 05/01/20 10/26/22 aspirin 325 mg tablet 325 mg PO DAILY 05/26/20 09/29/22 cariprazine 6 mg capsule (Vraylar) 6 mg PO DAILY 09/01/22 09/29/22 cyanocobalamin (vitamin B-12) 1,000 mcg subcut ONCE 09/01/22 09/29/22 1,000 mcg/mL injection solution (Dodex) glipizide 5 mg tablet 2.5 mg PO DAILY 09/01/22 09/29/22 haloperidol 2 mg tablet 2 mg PO HS 09/01/22 09/29/22 lamotrigine 25 mg tablet,extended 25 mg PO DAILY 09/01/22 09/29/22 release 24 hr metoclopramide HCl 5 mg tablet 5 mg PO .before meals PRN Nausea 09/29/22 09/29/22 (Reglan) Allergies Allergy/AdvReac Type Severity Reaction Status Date / Time pregabalin [From Lyrica] Allergy Severe Difficulty Verified 07/18/23 10:21 Breathing ropinirole Allergy Severe parkinsons Verified 07/18/23 10:21 like symptoms amoxicillin Allergy Intermediate Rash Verified 07/18/23 10:21 azithromycin Allergy Intermediate Hives Verified 07/18/23 10:21 cephalexin Allergy Intermediate Hives / Verified 07/18/23 10:21 Red Face eluxadoline Allergy Intermediate Diarrhea Verified 07/18/23 10:21 levofloxacin Allergy Intermediate rash Verified 07/18/23 10:21 Penicillins Allergy Intermediate rash Verified 07/18/23 10:21 prednisone Allergy Intermediate Rash Verified 07/18/23 10:21 sulfamethoxazole Allergy Intermediate Rash Verified 07/18/23 10:21 [From Bactrim] tramadol Allergy Intermediate Vomiting Verified 10/26/22 11:50 trifluoperazine Allergy Intermediate sick Verified 10/26/22 11:50 trimethoprim [From Bactrim] Allergy Intermediate Rash Verified 10/26/22 11:50 clavulanic acid Allergy Mild Rash Verified 10/26/22 11:50 [From Augmentin] Review of Systems Review of Systems: CONSTITUTIONAL: Denies fever CARDIOVASCULAR: Reports chest pain. Denies edema. RESPIRATORY: Denies dyspnea. GASTROINTESTINAL: Reports abdominal pain, nausea, vomiting. Denies diarrhea. GENITOURINARY: Denies dysuria or hematuria. All systems reviewed & are unremarkable except as noted in HPI and below PMFSH Past Medical History Medical History Anemia Angina at rest Anxiety Arthritis Asthma Bipolar disorder Bronchitis Chronic pain Cyst LUE, removed Dementia Depression Diarrhea Eczema Endometriosis Fibromyalgia GERD (gastroesophageal reflux disease) Gestational diabetes HLD (hyperlipidemia) Hypokalemia IBS (irritable bowel syndrome) Infertility Kidney stone Knee fracture, left Liver disease Lupus (systemic lupus erythematosus) MTHFR gene mutation Nausea and vomiting Ovarian cyst Pelvic floor dysfunction Pericardial effusion Pericarditis Pneumonia Previous known suicide attempt PUD (peptic ulcer disease) Right lower quadrant abdominal pain Schizoaffective disorder Urolithiasis UTI (urinary tract infection) Surgical History Surgical History Cholecystectomy planned H/O breast augmentation H/O: hysterectomy History of gynecologic surgery Related to endometriosis, x3 Family History Family History Grandparent Family history of cor
[2023-07-18] MEDS: MORPHINE SULFATE (*CRX) 4 MG/ML INJ IV PUSH (10:53)
[2023-07-18] MEDS: SODIUM CHLORIDE 0.9% IV 1,000 ML 999 ML IV CONT (10:53)
[2023-07-18] MEDS: ONDANSETRON INJ 4 MG/2 ML VIAL IV PUSH (10:53)
[2023-07-18] MEDS: PANTOPRAZOLE SODIUM IV 40 MG VIAL IV PUSH (10:53)
[2023-07-18 10:54] LABS: Basophils Absolute Auto 0.1 K/mm3 (0.0-0.1); Basophils Percent Auto 0.8 % (0.2-1.2); Eosinophils Absolute Auto 0.1 K/mm3 (0-0.3); Eosinophils Percent Auto 0.6 % (0-4.4); Hematocrit 40.6 % (37.0-47.0); Immature Granulocyte Percent A 1.5 % (0-0.5); Lymphocytes Absolute Auto 2.84 K/mm3 (0.9-3.2); Lymphocytes Percent Auto 21.5 % (18.3-44.2); Mean Corpuscular HGB Conc 34.5 g/dl (32-36); Mean Corpuscular Hemoglobin 34.4 pg (26-34); Mean Corpuscular Volume 99.8 fl (80-100); Mean Platelet Volume 10.6 fl (7.4-10.4); Monocytes Absolute Auto 0.8 K/mm3 (0.1-0.6); Monocytes Percent Auto 6.1 % (2.6-8.5); Neutrophils Absolute Auto 9.2 K/mm3 (1.3-6.7); Neutrophils Percent Auto 69.5 % (45.5-73.1); Platelet Count Result 252 k/mm3 (150-375); Red Blood Count 4.07 M/mm3 (4.2-5.4); Red Cell Distribution Width 12.4 % (11.5-14.5); White Blood Count 13.2 K/mm3 (4.5-10.0)
[2023-07-18 10:55] LABS: Appearance Urine Clear (Clear); Bilirubin Urine Negative (Negative); Blood Urine Negative (Negative); Color Urine Yellow (Yellow); Glucose Urine UA Negative (Negative); Ketones Urine Negative (Negative); Leukocyte Esterase Ur Negative LEU/UL (Negative); Nitrate Urine Negative (Negative); Protein Urine Negative (Negative); Specific Grav Ur 1.006 (1.001-1.035); Urobilinogen Urine 0.2 mg/dL (<2.0); pH Urine 6.5 (5.0-9.0)
[2023-07-18 10:56] LABS: Add Urine Microscopic? NO
[2023-07-18 11:01] LABS: Alanine Aminotransferase 22 U/L (6-35); Alkaline Phosphatase 69 U/L (38-126); Anion Gap 11 mmol/L (8-16); Aspartate Amino Transferase 35 U/L (14-36); Bilirubin,Total 0.4 mg/dL (0.2-1.3); Blood Urea Nitrogen 4 mg/dL (7-17); Calcium 9.2 mg/dL (8.4-10.2); Carbon Dioxide 19 mmol/L (22-30); Chloride 105 mmol/L (98-107); Estimated CRCL calculation 95 ml/min; Estimated Glomerular Filt Rate > 60; Glucose 146 mg/dL (65-110); Lipase 252 U/L (23-300); Potassium 3.6 mmol/L (3.4-5.0); Sodium 135 mmol/L (137-145)
[2023-07-18 11:13] LABS: Troponin I < 0.012 ng/mL (0.000-0.034)
[2023-07-18 12:42] VITALS: BP 128/84; PULSE 71; RESP 18; O2SAT 100
[2023-07-18] MEDS: DICYCLOMINE HCL INJ 20 MG/2 ML VIAL IM (13:01)
== END 2023-07-18 13:45 | disposition home or self-care (01) ==
PROVIDERS: Emergency Medicine; Emergency Provider Physician Assistant; PCP Internal Medicine
DX: R10.84 Generalized abdominal pain (principal); F03.90 Unspecified dementia, unspecified severity, without behavioral disturbance, psychotic disturbance, mood disturbance, and anxiety; E78.5 Hyperlipidemia, unspecified; F17.210 Nicotine dependence, cigarettes, uncomplicated
CPT/HCPCS: 36415; 74177; 80053; 81003; 81025; 83690; 84484; 85025; 93005; 96361; 96372; 96374; 96375; 99284; C9113; J0500; J2270; J2405; J7030; Q9967

== ENCOUNTER 2023-08-02 07:46 | Outpatient (CLI) | payer MEDICARE, MEDICAID, SELFPAY ==
--- NOTE | ~2023-08-02 | NM_ITS ---
EXAM: NM gastric emptying study DATE: 08/02/2023 11:47 CDT INDICATION: Nausea and vomiting. TECHNIQUE: A gastric emptying study was performed using the methodology of Darvin LACY, et al. J Nucl Med 2007; 48:568-572. The patient was given a meal consisting of 2 scrambled eggs labeled with 0.99 mCi Tc-99m sulfur colloid, 2 slices of toast, two packages of jam, and approximately 120 mL of water. Simultaneous anterior and posterior 1-min images of the abdomen were obtained with the patient supin e at multiple time points over a total period of 4 hours. The geometric mean of anterior and posterio r views was determined, and the percentage retention was calculated for each time point. COMPARISON: None. FINDINGS: Gastric retention of the radiotracer-labeled meal was 100%, 66%, and 55% at the 1-hour, 2- hour, and 4-hour time points, respectively. With this technique, apparent rapid gastric emptying is s uggested by <30% gastric retention at 1 hour. Delayed gastric emptying is defined by gastric retentio n of >90% at 1 hour, >60% retention at 2 hours, or >10% retention at 4 hours. IMPRESSION: 1. Delayed gastric emptying. Reviewed, dictated and finalized at location [facility].
== END 2023-08-02 07:47 | disposition home or self-care (01) ==
LOC: ANHIMG 07:50
PROVIDERS: PCP Internal Medicine; Visit Provider Nurse Practitioner Family
DX: K92.89 Other specified diseases of the digestive system (principal); R11.2 Nausea with vomiting, unspecified; R10.9 Unspecified abdominal pain; K30 Functional dyspepsia
CPT/HCPCS: 78264; A9541

== ENCOUNTER 2023-08-09 09:38 | Outpatient (CLI) | payer MEDICARE, MEDICAID, SELFPAY ==
--- NOTE | ~2023-08-09 | XR_ITS ---
EXAMINATION: XR abdomen/kub 1V INDICATION: Abdominal distention TECHNIQUE: Supine views of the abdomen were obtained on 2 radiographs. COMPARISON: CT, 07/10/2023 FINDINGS: The bowel gas pattern is normal. The visualized lung bases are clear. Changes of cholecyste ctomy are noted. There are bilateral calcifications overlying the iliac bones demonstrated to be with in the skin on the comparison CT. IMPRESSION: 1. No radiographic correlate for the patient's symptoms. Reviewed, dictated and finalized at location [facility].
== END 2023-08-09 09:39 | disposition home or self-care (01) ==
LOC: ANHIMG 09:42
PROVIDERS: PCP Internal Medicine; Visit Provider Nurse Practitioner
DX: K92.89 Other specified diseases of the digestive system (principal); R10.9 Unspecified abdominal pain
CPT/HCPCS: 74018

== ENCOUNTER 2024-01-30 17:29 | Emergency (ER) | payer MEDICARE, MEDICAID, SELFPAY ==
--- NOTE | ~2024-01-30 | XR_ITS ---
EXAM: XR shoulder RT min 2V DATE: 01/30/2024 17:58 HISTORY: pain, no known injury . COMPARISON: None available. FINDINGS: Normal mineralization. No fracture or dislocation. No lytic or blastic lesion. Mild degene rative change at the AC joint. No erosion or periosteal change. Soft tissues within normal limits. IMPRESSION: No acute osseous finding in the right shoulder. Reviewed, dictated and finalized at location [facility].
[2024-01-30 17:33] VITALS: BP 147/90; PULSE 93; RESP 18; TEMP 36.6; O2SAT 97
--- NOTE | 2024-01-30 19:47 | ED.GENADULT ---
HPI - General Adult General Chief complaint: Extremity Problem,Nontraumatic Stated complaint: right shoulder pain Time Seen by Provider: 01/30/24 19:13 Source: patient Mode of arrival: ambulatory Limitations: no limitations History of Present Illness HPI narrative: This is a 43-year-old female who presents to the ED with chief complaint of right shoulder pain onset x5 days. Reports that she initially was caring and very heavy groceries on the right side which may precipitated this. She states that that evening she woke up in her sleep with right shoulder pain reports that his increasingly painful and has difficulty with range of motion. Denies fevers, chills, numbness, or weakness. Denies any further injury. Related Data Home Medications Medication Instructions Recorded Confirmed folic acid 1 mg tablet 1 mg PO DAILY 04/24/20 09/29/22 rivaroxaban 20 mg tablet (Xarelto) 20 mg PO DAILY 05/01/20 08/24/23 aspirin 325 mg tablet 325 mg PO DAILY 05/26/20 08/24/23 cariprazine 6 mg capsule (Vraylar) 6 mg PO DAILY 09/01/22 08/24/23 lamotrigine 25 mg tablet,extended 25 mg PO DAILY 09/01/22 08/24/23 release 24 hr Allergies Allergy/AdvReac Type Severity Reaction Status Date / Time pregabalin [From Lyrica] Allergy Severe Difficulty Verified 01/30/24 17:31 Breathing ropinirole Allergy Severe parkinsons Verified 01/30/24 17:31 like symptoms amoxicillin Allergy Intermediate Rash Verified 01/30/24 17:31 azithromycin Allergy Intermediate Hives Verified 01/30/24 17:31 cephalexin Allergy Intermediate Hives / Verified 01/30/24 17:31 Red Face eluxadoline Allergy Intermediate Diarrhea Verified 01/30/24 17:31 levofloxacin Allergy Intermediate rash Verified 01/30/24 17:31 Penicillins Allergy Intermediate rash Verified 01/30/24 17:31 prednisone Allergy Intermediate Rash Verified 01/30/24 17:31 sulfamethoxazole Allergy Intermediate Rash Verified 01/30/24 17:31 [From Bactrim] tramadol Allergy Intermediate Vomiting Verified 01/30/24 17:31 trifluoperazine Allergy Intermediate sick Verified 01/30/24 17:31 trimethoprim [From Bactrim] Allergy Intermediate Rash Verified 01/30/24 17:31 clavulanic acid Allergy Mild Rash Verified 01/30/24 17:31 [From Augmentin] Review of Systems Review of Systems: All systems as dictated in [facility] Past Medical History Medical History (Updated 01/31/24 @ 00:00 by Xochitl Jones) Abdominal pain Anemia Angina at rest Anxiety Arthritis Asthma Bipolar disorder Breast implant removal status Bronchitis Chronic pain Cyst LUE, removed Dementia Depression Diarrhea Eczema Endometriosis Fatty liver Fibromyalgia Gas bloat syndrome Gastroparesis GERD (gastroesophageal reflux disease) Gestational diabetes HLD (hyperlipidemia) Hypokalemia IBS (irritable bowel syndrome) Infertility Kidney stone Knee fracture, left Liver disease Lupus (systemic lupus erythematosus) MTHFR gene mutation Nausea and vomiting Ovarian cyst Pelvic floor dysfunction Pericardial effusion Pericarditis Pneumonia Previous known suicide attempt PUD (peptic ulcer disease) Right lower quadrant abdominal pain Schizoaffective disorder Urolithiasis UTI (urinary tract infection) Surgical History Surgical History Cholecystectomy planned H/O breast augmentation H/O: hysterectomy History of gynecologic surgery Related to endometriosis, x3 Family History Family History Grandparent Family history of coronary artery disease Father Family history of diabetes mellitus in first degree relative Diabetes mellitus Asthma Family history of arthritis Sibling Asthma Mother Family history of arthritis Social History Social History Smoking packs per day: 0.5 Smoking cigarettes per day: 10.0 Years smoked: 30 Smoking pack-years: 15.00
[2024-01-30] MEDS: KETOROLAC 30 MG/ML VIAL (*BKC) IM (19:57)
== END 2024-01-30 20:05 | disposition home or self-care (01) ==
PROVIDERS: Emergency Provider Physician Assistant; PCP Internal Medicine
DX: M25.511 Pain in right shoulder (principal); J45.909 Unspecified asthma, uncomplicated; F03.90 Unspecified dementia, unspecified severity, without behavioral disturbance, psychotic disturbance, mood disturbance, and anxiety; E78.5 Hyperlipidemia, unspecified; I31.9 Disease of pericardium, unspecified; K58.9 Irritable bowel syndrome, unspecified; K21.9 Gastro-esophageal reflux disease without esophagitis; K76.9 Liver disease, unspecified; M79.7 Fibromyalgia; M32.9 Systemic lupus erythematosus, unspecified; M19.90 Unspecified osteoarthritis, unspecified site; F17.210 Nicotine dependence, cigarettes, uncomplicated; F41.9 Anxiety disorder, unspecified; F25.9 Schizoaffective disorder, unspecified; F31.9 Bipolar disorder, unspecified; Z87.01 Personal history of pneumonia (recurrent); Z87.440 Personal history of urinary (tract) infections; Z87.11 Personal history of peptic ulcer disease; Z86.2 Personal history of diseases of the blood and blood-forming organs and certain disorders involving the immune mechanism; Z87.442 Personal history of urinary calculi; Z90.710 Acquired absence of both cervix and uterus; Z90.49 Acquired absence of other specified parts of digestive tract; Z79.01 Long term (current) use of anticoagulants; Z79.82 Long term (current) use of aspirin
CPT/HCPCS: 73030; 96372; 99283; A4565; J1885

== ENCOUNTER 2024-07-23 16:25 | Emergency (ER) | payer MEDICARE, MEDICAID, SELFPAY ==
[2024-07-23 16:30] VITALS: BP 151/79; PULSE 75; RESP 18; TEMP 36.5; O2SAT 100
--- NOTE | 2024-07-23 16:44 | ED.GENADULT ---
HPI - General Adult General Chief complaint: Weakness <Jonathon Talavera PA-C - Last Filed: 07/23/24 16:59> Stated complaint: FATIGUE, WEAKNESS <Jonathon Talavera PA-C - Last Filed: 07/23/24 16:59> Time Seen by Provider: 07/23/24 16:45 <Jonathon Talavera PA-C - Last Filed: 07/23/24 16:59> Focused HPI: This is a 44-year-old female who presents to the ED for chief complaint of muscle cramps and aches over the past several days. She reports this is mainly in the arms and legs but also somewhat in the back as well. She states that she just finished a nearly month long course of itraconazole for oral thrush. She also reports that she has had some flank pain but no urinary symptoms. Denies fevers, chills, chest pain, cough, recent illness. GENERAL: Appears anxious. Nontoxic appearing HEAD: Normocephalic, atraumatic. CHEST: Clear to auscultation. No respiratory distress. HEART: Regular rate and rhythm. NEURO: Alert and oriented x3. skin: No rash. Warm and dry Patient screened in triage and initial orders placed. Additional care and disposition to be based upon diagnostic testing and treatment. <Jonathon Talavera PA-C - Last Filed: 07/23/24 16:59> Focused HPI: This is a 44-year-old female who presents to the ED for chief complaint of muscle cramps and aches over the past several days. She reports this is mainly in the arms and legs but also somewhat in the back as well. She states that she just finished a nearly month long course of itraconazole for oral thrush. She also reports that she has had some flank pain but no urinary symptoms. Denies fevers, chills, chest pain, cough, recent illness. GENERAL: Appears anxious. Nontoxic appearing HEAD: Normocephalic, atraumatic. CHEST: Clear to auscultation. No respiratory distress. HEART: Regular rate and rhythm. NEURO: Alert and oriented x3. skin: No rash. Warm and dry Patient screened in triage and initial orders placed. Additional care and disposition to be based upon diagnostic testing and treatment. <Kathy Cedeno PA-C - Last Filed: 07/23/24 18:18> Source: patient <PAIGE Cardona Last Filed: 07/23/24 16:59> Mode of arrival: ambulatory <PAIGE Cardona Last Filed: 07/23/24 16:59> Limitations: no limitations <PAIGE Cardona Last Filed: 07/23/24 16:59> Related Data Home medications: Home Medications Medication Instructions Recorded Confirmed folic acid 1 mg tablet 1 mg PO DAILY 04/24/20 09/29/22 rivaroxaban 20 mg tablet (Xarelto) 20 mg PO DAILY 05/01/20 08/24/23 aspirin 325 mg tablet 325 mg PO DAILY 05/26/20 08/24/23 cariprazine 6 mg capsule (Vraylar) 6 mg PO DAILY 09/01/22 08/24/23 lamotrigine 25 mg tablet,extended 25 mg PO DAILY 09/01/22 08/24/23 release 24 hr <PAIGE Cardona Last Filed: 07/23/24 16:59> Allergies/adverse reactions: Allergies Allergy/AdvReac Type Severity Reaction Status Date / Time pregabalin [From Lyrica] Allergy Severe Difficulty Verified 01/30/24 17:31 Breathing ropinirole Allergy Severe parkinsons Verified 01/30/24 17:31 like symptoms amoxicillin Allergy Intermediate Rash Verified 01/30/24 17:31 azithromycin Allergy Intermediate Hives Verified 01/30/24 17:31 cephalexin Allergy Intermediate Hives / Verified 01/30/24 17:31 Red Face eluxadoline Allergy Intermediate Diarrhea Verified 01/30/24 17:31 levofloxacin Allergy Intermediate rash Verified 01/30/24 17:31 Penicillins Allergy Intermediate rash Verified 01/30/24 17:31 prednisone Allergy Intermediate Rash Verified 01/30/24 17:31 sulfamethoxazole Allergy Intermediate Rash Verified 01/30/24 17:31 [From Bactrim] tramadol Allergy Intermediate Vomiting Verified 01/30/24 17:31 trifluoperazine Allergy Intermediate sick Verified 01/30/24 17:31 trimethoprim [From Bactrim] Allergy Intermediate Rash Verified 01/30/24 17:31 clavulanic acid Allergy Mild Rash Verified 01/30/24 17:31 [From Augme
[2024-07-23 17:02] LABS: Basophils Absolute Auto 0.1 K/mm3 (0.0-0.1); Basophils Percent Auto 1.1 % (0.2-1.2); Eosinophils Absolute Auto 0.1 K/mm3 (0-0.3); Eosinophils Percent Auto 1.2 % (0-4.4); Hematocrit 39.2 % (37.0-47.0); Hemoglobin 13.9 g/dL (12.0-15.0); Immature Granulocyte Absolute 0.04 K/mm3 (0.00-0.031); Immature Granulocyte Percent A 0.4 % (0-0.5); Lymphocytes Percent Auto 26.1 % (18.3-44.2); Mean Corpuscular HGB Conc 35.5 g/dl (32-36); Mean Corpuscular Hemoglobin 34.1 pg (26-34); Mean Corpuscular Volume 96.1 fl (80-100); Mean Platelet Volume 10.6 fl (7.4-10.4); Monocytes Absolute Auto 0.5 K/mm3 (0.1-0.6); Monocytes Percent Auto 5.6 % (2.6-8.5); Neutrophils Percent Auto 65.6 % (45.5-73.1); Platelet Count Result 259 k/mm3 (150-375); Red Blood Count 4.08 M/mm3 (4.2-5.4); Red Cell Distribution Width 12.7 % (11.5-14.5); White Blood Count 9.2 K/mm3 (4.5-10.0)
[2024-07-23 17:08] LABS: Appearance Urine Clear (Clear); Blood Urine Negative (Negative); Color Urine Yellow (Yellow); Glucose Urine UA Negative (Negative); Ketones Urine Negative (Negative); Nitrate Urine Negative (Negative); Protein Urine Negative (Negative); Specific Grav Ur 1.005 (1.001-1.035); pH Urine 6.5 (5.0-9.0)
[2024-07-23 17:09] LABS: Add Urine Microscopic? NO; Bilirubin Urine Negative (Negative); Leukocyte Esterase Ur Negative LEU/UL (Negative); Urobilinogen Urine 0.2 mg/dL (<2.0)
[2024-07-23 17:11] LABS: Alanine Aminotransferase 30 U/L (6-35); Albumin Level 4.2 g/dL (3.5-5.1); Alkaline Phosphatase 64 U/L (38-126); Anion Gap 10 mmol/L (4-12); Aspartate Amino Transferase 44 U/L (14-36); Bilirubin,Total 0.4 mg/dL (0.2-1.3); Blood Urea Nitrogen 8 mg/dL (7-17); Carbon Dioxide 27 mmol/L (22-30); Chloride 102 mmol/L (98-107); Creatine Kinase 72 U/L (30-135); Estimated CRCL calculation 73 ml/min; Estimated Glomerular Filt Rate > 60; Glucose 111 mg/dL (65-110); Magnesium 1.7 mg/dL (1.6-2.3); Phosphorus 1.8 mg/dL (2.5-4.5); Potassium 3.3 mmol/L (3.4-5.0); Sodium 139 mmol/L (137-145)
[2024-07-23 17:38] LABS: Influenza A QL RT-PCR Negative (Negative); Influenza B QL RT-PCR Negative (Negative); RSV RNA, RT-PCR Negative (Negative); SARS-CoV-2 RNA PCR Negative (Negative)
[2024-07-23 17:46] VITALS: BP 139/73; PULSE 60; RESP 16; O2SAT 100
[2024-07-23] MEDS: POTASSIUM CHLORIDE 20 MEQ ER TABLET 40 MEQ PO (17:47)
[2024-07-23] MEDS: SODIUM CHLORIDE 0.9% IV 1,000 ML 999 ML IV CONT (17:49)
[2024-07-23] MEDS: MAGNESIUM SULF 1 GM/D5W 100 ML 1 GM/100 ML BAG IVPB (17:51)
[2024-07-23 18:02] VITALS: BP 137/67; PULSE 65; RESP 18; O2SAT 97
[2024-07-23] MEDS: POTASSIUM PHOS/SODIUM PHOS 250 MG TABLET PO (18:08)
[2024-07-23 18:17] VITALS: BP 153/73; PULSE 66; RESP 16; O2SAT 97
[2024-07-23 18:59] VITALS: BP 127/68; PULSE 60; RESP 15; TEMP 36.6; O2SAT 99
== END 2024-07-23 19:00 | disposition home or self-care (01) ==
PROVIDERS: Physician Assistant; Emergency Provider Physician Assistant; PCP Internal Medicine
DX: E87.6 Hypokalemia (principal); E83.42 Hypomagnesemia; E83.39 Other disorders of phosphorus metabolism; Z20.822 Contact with and (suspected) exposure to COVID-19; J45.909 Unspecified asthma, uncomplicated; E78.5 Hyperlipidemia, unspecified; K31.84 Gastroparesis; K21.9 Gastro-esophageal reflux disease without esophagitis; K58.9 Irritable bowel syndrome, unspecified; K76.9 Liver disease, unspecified; M32.9 Systemic lupus erythematosus, unspecified; M79.7 Fibromyalgia; M19.90 Unspecified osteoarthritis, unspecified site; F41.9 Anxiety disorder, unspecified; F31.9 Bipolar disorder, unspecified; F25.9 Schizoaffective disorder, unspecified; F17.210 Nicotine dependence, cigarettes, uncomplicated; Z86.2 Personal history of diseases of the blood and blood-forming organs and certain disorders involving the immune mechanism; Z87.01 Personal history of pneumonia (recurrent); Z87.11 Personal history of peptic ulcer disease; Z87.442 Personal history of urinary calculi; Z87.440 Personal history of urinary (tract) infections; Z90.710 Acquired absence of both cervix and uterus; Z90.49 Acquired absence of other specified parts of digestive tract; Z79.01 Long term (current) use of anticoagulants; Z79.82 Long term (current) use of aspirin; Z79.899 Other long term (current) drug therapy
CPT/HCPCS: 36415; 80053; 81003; 82550; 83735; 84100; 85025; 87637; 96365; 99284; A9270; J3475; J7030

== ENCOUNTER 2025-02-11 14:32 | Emergency (ER) | payer MEDICARE, MEDICAID, SELFPAY ==
[2025-02-11] VITALS (21 sets, daily range): BP systolic 133–154; BP diastolic 77–101; PULSE 71–120; RESP 12–43; TEMP 36.4–36.7; O2SAT 98–100
--- NOTE | ~2025-02-11 | CT_ITS ---
EXAMINATION: CT chest abdomen pelvis w con DATE: 02/11/2025 17:54 INDICATION: Midsternal, epigastric and left upper quadrant abd . TECHNIQUE: Computed tomography (CT) of the chest, abdomen, and pelvis was performed with 100 mL Omnip aque-350 intravenous contrast. Automated exposure control and iterative reconstruction technique were employed. The dose-length product was 460.25 mGy-cm. COMPARISON: CT abdomen pelvis 07/18/2023; CTPA 12/14/2019 FINDINGS: CHEST: Thoracic aorta: No significant dilation. No dissection. Lung parenchyma and airways: Lungs and airways are clear. Thoracic inlet, axillae and chest wall: No thyroid or soft tissue mass. No axillary lymphadenopathy. Mediastinum: No mass or lymphadenopathy. Heart and pericardium: Normal heart size. No pericardial effusion. Coronary artery calcifications: Absent. Pleura: No effusion or mass. Thoracic bones: No acute osseous finding in the chest. ABDOMEN/PELVIS: Liver: Enlarged. Diffuse fatty infiltration. Biliary/Gallbladder: Gallbladder is absent. No bile duct dilation. Pancreas: No mass or duct dilation. Spleen: Normal. Adrenals:No mass. Kidneys: No suspicious mass, obstructing stone, or hydronephrosis. GI tract: Moderate distal esophageal and gastric wall edema. No small or large bowel dilation. Normal appendix. Mesentery/Peritoneum: No ascites, mass, or free air. Retroperitoneum: No mass Atherosclerotic calcifications of intra-abdominal arterial vessels. Pelvis: Distended urinary bladder with mild wall thickening. Absent uterus. Normal bilateral ovaries. Soft Tissues: Bilateral gluteal injection granulomas. Small uncomplicated fat-containing ventral baljeet ia. Abdominopelvic bones: No acute osseous finding in the abdomen/pelvis. IMPRESSION: Moderate esophagitis/gastritis. Hepatomegaly with steatosis. Possible cystitis, correlate with urinalysis. Reviewed, dictated and finalized at location K.
--- NOTE | 2025-02-11 14:46 | ECG_ITS ---
Test Date: 2025-02-11 15:48:58 Measurements Intervals [place] Rate: 71 P: 51 CO: 163 QRS: 27 QRSD: 94 T: 43 QT: 377 QTc: 412 Interpretive Statements SINUS RHYTHM No previous ECG available for comparison Electronically Signed On 02-12-2025 15:39:38 CDT by Ana Paula Danielle M.D.
--- NOTE | 2025-02-11 14:47 | ED_ITS ---
HPI - Abdominal Pain General Chief Complaint: Abdominal Pain <Jaja Norris APRN - Last Filed: 02/11/25 14:50> Stated Complaint: abd pain <Jaja Norris APRN - Last Filed: 02/11/25 14:50> Time Seen by Provider: 02/11/25 14:40 <Jaja Norris KNITTING MACHINE FIXER HEAD - Last Filed: 02/11/25 14:50> Focused HPI: Patient is a 44-year-old female who presents to the ER with abdominal pain, shortness of breath, chest pain, lightheadedness, and decreased p.o. intake. She reports she has a history of pancreatitis and this feels very similar to her previous experiences. Patient reports she had 1 drink a few nights ago. 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 She also reports she has a angiogram scheduled. GENERAL: Ill-appearing, well-nourished, and in acute distress. HEAD: Normocephalic, atraumatic. CHEST: Clear to auscultation. ?No respiratory distress. HEART: Regular rate and rhythm.? NEURO: ?Alert and oriented x3. Anxious. Patient screened in triage and initial orders placed.? ?Additional care and disposition to be based upon?diagnostic testing and treatment. <Jaja Norris, KNITTING MACHINE FIXER HEAD - Last Filed: 02/11/25 14:50> Related Data Home Medications: Home Medications ?Medication ?Instructions ?Recorded ?Confirmed ?Last Taken ?Type aspirin 325 mg tablet 325 mg PO .PRN 08/03/24 08/03/24 Unknown History <Jaja Norris, KNITTING MACHINE FIXER HEAD - Last Filed: 02/11/25 14:50> Allergies/Adverse Reactions: Allergies Allergy/AdvReac Type Severity Reaction Status Date / Time pregabalin (From Lyrica) Allergy Severe Difficulty Verified 02/11/25 14:33 Breathing ropinirole Allergy Severe parkinsons Verified 02/11/25 14:33 like symptoms amoxicillin Allergy Intermediate Rash Verified 02/11/25 14:33 azithromycin Allergy Intermediate Hives Verified 02/11/25 14:33 cephalexin Allergy Intermediate Hives / Verified 02/11/25 14:33 Red Face eluxadoline Allergy Intermediate Diarrhea Verified 02/11/25 14:33 levofloxacin Allergy Intermediate rash Verified 02/11/25 14:33 Penicillins Allergy Intermediate rash Verified 02/11/25 14:33 prednisone Allergy Intermediate Rash Verified 02/11/25 14:33 sulfamethoxazole (From Allergy Intermediate Rash Verified 02/11/25 14:33 Bactrim) tramadol Allergy Intermediate Vomiting Verified 02/11/25 14:33 trifluoperazine Allergy Intermediate sick Verified 02/11/25 14:33 trimethoprim (From Bactrim) Allergy Intermediate Rash Verified 02/11/25 14:33 clavulanic acid (From Allergy Mild Rash Verified 02/11/25 14:33 Augmentin) <Jaja Norris APRN - Last Filed: 02/11/25 14:50> Review of Systems 2 Review of Systems: All systems reviewed & are unremarkable except as noted in HPI and below <Fernandez Garner MD - Last Filed: 02/11/25 21:50> [facility] Past Medical History Medical History: Medical History (Updated 02/11/25 @ 19:25 by Fernandez Garner MD) Fatty liver Gastroparesis Gas bloat syndrome Abdominal pain Breast implant removal status Right lower quadrant abdominal pain Diarrhea Nausea and vomiting Ovarian cyst Pericarditis Urolithiasis MTHFR gene mutation Pelvic floor dysfunction Cyst LUE, removed Eczema Anemia Previous known suicide attempt Anxiety Depression Bipolar disorder Lupus (systemic lupus erythematosus) Gestational diabetes Knee fracture, left Arthritis UTI (urinary tract infection) Kidney stone Endometriosis Infertility IBS (irritable bowel syndrome) Liver disease PUD (peptic ulcer disease) GERD (gastroesophageal reflux disease) Pneumonia Bronchitis Pericardial effusion Angina at rest HLD (hyperlipidemia) Dementia Fibromyalgia Asthma Chronic pain Schizoaffective disorder Hypokalemia <Jaja Norris APRN - Last Filed: 02/11/25 14:50> Surgical History Surgical History: Surgical History History of gynecologic surgery Related to endometriosis, x3 H/O: hysterectomy H/O breast augmentation Cholecystectomy planned <Jaja Norris APRN - Last Filed: 02/11/25 14:50> Family History Family History: Family History Grandparent Family history of coronary artery disease Father Family history of diabetes mellitus in first degree relative Diabetes mellitus Asthma Family history of arthritis Sibling Asthma Mother Family history of arthritis <Jaja Norrsi APRN - Last Filed: 02/11/25 14:50> Social History Social History: Social History Smoking packs per day: 0.5 Smoking cigarettes per day: 10.0 Years smoked: 30 Smoking pack-years: 15.00 Smoking status: Former smoker Tobacco type: cigarettes Second hand tobacco smoke exposure: Yes Alcohol intake: never Substance use: current Substance use type: marijuana Other substance usage details: MEDICAL MARIJUANA - COUPLE TIMES A WEEK Living arrangements: with family Occupation/Education: unemployed Gender identity (if verbalized by the patient): Female Sexual Orientation (if Verbalized by the Patient): Straight or Heterosexual Spiritual care concerns: No <Jaja Norris, SANJU - Last Filed: 02/11/25 14:50> Exam 2 Narrative: APPEARANCE: Uncomfortable appearing HEAD: normocephalic, atraumatic. EYES: PERRLA/EOMI, conjunctivae clear. NOSE: Normal no drainage EARS:TMS clear with good light reflex. THROAT: Pharynx clear, no exudate. NECK: Supple. No adenopathy, no masses. RESPIRATORY: Airway patent, respirations nonlabored. Clear to auscultation bilaterally, no rales, rhonchi, wheezing. CARDIOVASCULAR: Regular rate and rhythm without murmurs rubs or gallops. ABDOMINAL: Soft, nontender, nondistended, normal bowel sounds MUSCULOSKELETAL: Moves all extremities. Strength/ROM intact, No edema, No calf tenderness. NEURO: Alert. Cranial nerves II through XII intact. Grossly intact SKIN: Warm, dry. Normal Color <Fernandez Garner MD - Last Filed: 02/11/25 21:50> Course Vital Signs Vital signs: Vital Signs Temperature 97.6 F 02/11/25 14:35 Pulse Rate 120 H 02/11/25 14:35 Respiratory Rate 18 02/11/25 14:35 Blood Pressure 150/100 H 02/11/25 14:35 Pulse Oximetry 100 02/11/25 14:35 Oxygen Delivery Room Air 02/11/25 14:35 Temperature 98.1 F 02/11/25 19:35 Pulse Rate 100 02/11/25 19:35 Respiratory Rate 16 02/11/25 19:35 Blood Pressure 154/77 H 02/11/25 19:35 Pulse Oximetry 100 02/11/25 19:35 Oxygen Delivery Room Air 02/11/25 14:35 <Jaja Norris APRN - Last Filed: 02/11/25 14:50> Vital Signs Temperature 97.6 F 02/11/25 14:35 Pulse Rate 120 H 02/11/25 14:35 Respiratory Rate 18 02/11/25 14:35 Blood Pressure 150/100 H 02/11/25 14:35 Pulse Oximetry 100 02/11/25 14:35 Oxygen Delivery Room Air 02/11/25 14:35 Temperature 98.1 F 02/11/25 19:35 Pulse Rate 100 02/11/25 19:35 Respiratory Rate 16 02/11/25 19:35 Blood Pressure 154/77 H 02/11/25 19:35 Pulse Oximetry 100 02/11/25 19:35 Oxygen Delivery Room Air 02/11/25 14:35 <Fernandez Garner MD - Last Filed: 02/11/25 21:50> MDM - Abdominal Pain MDM Narrative Medical decision making narrative: [age] old female presents emergency department for evaluation for persistent nausea and vomiting. Patient does have history of cyclic nausea and vomiting and does use THC daily. Patient was educated on cannabinoid hyperemesis syndrome but she does not feel that this is the underlying issue. On exam patient does have reproducible epigastric and left upper quadrant abdominal tenderness. Patient is afebrile with a minor leukocytosis 11.5 and a stable hemoglobin of 14.2. INR is 1.0. Potassium was 3.0 troponins were negative. UA was negative for infection. Patient's potassium was 3.0 this was replaced orally with 40 mEq of p.o. potassium. Patient was provided for motor Marino, Protonix GI cocktail. Patient declined Haldol for her nausea. CT scan showed moderate esophagitis and gastritis. Patient requested to be discharged to home. Patient was advised to refrain from any THC use due to concern for cannabinoid hyperemesis syndrome. Patient was encouraged of close follow-up with GI. Patient states he has been taking ibuprofen she was encouraged to refrain from ibuprofen and alcohol. All questions concerns were addressed. <Fernandez Garner MD - Last Filed: 02/11/25 21:50> Differential Diagnosis Differential diagnosis: Likely abdominal pain, acute appendicitis, constipation, diverticulitis, gastroenteritis, pancreatitis and small bowel obstruction <Fernandez Garner MD - Last Filed: 02/11/25 21:50> Lab Data Attestation: I reviewed the patient's lab results. <Fernandez Garner MD - Last Filed: 02/11/25 21:50> Result diagrams: 02/11/25 15:28 02/11/25 15:28 <Jaja Norris APRN - Last Filed: 02/11/25 14:50> Labs: Lab Results 02/11/25 Range/Units 15:28 WBC 11.5 H (4.5-10.0) K/mm3 RBC 4.29 (4.2-5.4) M/mm3 Hgb 14.2 (12.0-15.0) g/dL Hct 39.8 (37.0-47.0) % MCV 92.8 (80-100) fl MCH 33.1 (26-34) pg MCHC 35.7 (32-36) g/dl RDW 11.9 (11.5-14.5) % Plt Count 279 (150-375) k/mm3 MPV 10.5 H (7.4-10.4) fl Immature Gran % (Auto) 0.4 (0-0.5) % Neut % (Auto) 71.9 (45.5-73.1) % Lymph % (Auto) 20.3 (18.3-44.2) % [place] % (Auto) 6.3 (2.6-8.5) % Eos % (Auto) 0.3 (0-4.4) % Baso % (Auto) 0.8 (0.2-1.2) % Lymph # (Auto) 2.34 (0.9-3.2) K/mm3 [place] # (Auto) 0.7 H (0.1-0.6) K/mm3 Eos # (Auto) 0.0 (0-0.3) K/mm3 Baso # (Auto) 0.1 (0.0-0.1) K/mm3 Abs Immat Gran (auto) 0.05 H (0.00-0.031) K/mm3 Absolute Neuts (auto) 8.3 H (1.3-6.7) K/mm3 Absolute Nucleated RBC 0.000 (0.0-0.012) K/mm3 Nucleated RBC % 0.0 (0.0-0.2) % PT 13.9 (11.1-14.7) Seconds INR 1.0 APTT 27.9 (22.3-36.8) Seconds Sodium 137 (137-145) mmol/L Potassium 3.0 L (3.4-5.0) mmol/L Chloride 102 (98-107) mmol/L Carbon Dioxide 19 L (22-30) mmol/L Anion Gap 16 H (4-12) mmol/L BUN 5 L (7-17) mg/dL Creatinine 0.70 (0.7-1.0) mg/dL Estim Creat Clear Calc 83 ml/min Estimated GFR > 60 (59 - ) Glucose 176 H (65-110) mg/dL Calcium 9.4 (8.4-10.2) mg/dL Total Bilirubin 0.7 (0.2-1.3) mg/dL AST 92 H (14-36) U/L ALT 74 H (6-35) U/L Alkaline Phosphatase 59 (38-126) U/L Troponin I < 0.012 (0.000-0.034) ng/mL Total Protein 8.0 (6.3-8.2) g/dL Albumin 4.8 (3.5-5.1) g/dL Lipase 87 (23-300) U/L Urine Color Yellow (Yellow) Urine Appearance Clear (Clear) Urine pH 6.5 (5.0-9.0) Ur Specific Lee 1.002 (1.001-1.035) Urine Protein Negative (Negative) mg/dL Urine Glucose (UA) Negative (Negative) mg/dL Urine Ketones Negative (Negative) mg/dL Ur Blood (Man) Negative (Negative) Urine Nitrate Negative (Negative) Urine Bilirubin Negative (Negative) Urine Urobilinogen 0.2 (<2.0) mg/dL Leukocyte Esterase Rfl Negative (Negative) YOEL/UL <Jaja Norris, KNITTING MACHINE FIXER HEAD - Last Filed: 02/11/25 14:50> Lab Results 02/11/25 Range/Units 15:28 WBC 11.5 H (4.5-10.0) K/mm3 RBC 4.29 (4.2-5.4) M/mm3 Hgb 14.2 (12.0-15.0) g/dL Hct 39.8 (37.0-47.0) % MCV 92.8 (80-100) fl MCH 33.1 (26-34) pg MCHC 35.7 (32-36) g/dl RDW 11.9 (11.5-14.5) % Plt Count 279 (150-375) k/mm3 MPV 10.5 H (7.4-10.4) fl Immature Gran % (Auto) 0.4 (0-0.5) % Neut % (Auto) 71.9 (45.5-73.1) % Lymph % (Auto) 20.3 (18.3-44.2) % [place] % (Auto) 6.3 (2.6-8.5) % Eos % (Auto) 0.3 (0-4.4) % Baso % (Auto) 0.8 (0.2-1.2) % Lymph # (Auto) 2.34 (0.9-3.2) K/mm3 [place] # (Auto) 0.7 H (0.1-0.6) K/mm3 Eos # (Auto) 0.0 (0-0.3) K/mm3 Baso # (Auto) 0.1 (0.0-0.1) K/mm3 Abs Immat Gran (auto) 0.05 H (0.00-0.031) K/mm3 Absolute Neuts (auto) 8.3 H (1.3-6.7) K/mm3 Absolute Nucleated RBC 0.000 (0.0-0.012) K/mm3 Nucleated RBC % 0.0 (0.0-0.2) % PT 13.9 (11.1-14.7) Seconds INR 1.0 APTT 27.9 (22.3-36.8) Seconds Sodium 137 (137-145) mmol/L Potassium 3.0 L (3.4-5.0) mmol/L Chloride 102 (98-107) mmol/L Carbon Dioxide 19 L (22-30) mmol/L Anion Gap 16 H (4-12) mmol/L BUN 5 L (7-17) mg/dL Creatinine 0.70 (0.7-1.0) mg/dL Estim Creat Clear Calc 83 ml/min Estimated GFR > 60 (59 - ) Glucose 176 H (65-110) mg/dL Calcium 9.4 (8.4-10.2) mg/dL Total Bilirubin 0.7 (0.2-1.3) mg/dL AST 92 H (14-36) U/L ALT 74 H (6-35) U/L Alkaline Phosphatase 59 (38-126) U/L Troponin I < 0.012 (0.000-0.034) ng/mL Total Protein 8.0 (6.3-8.2) g/dL Albumin 4.8 (3.5-5.1) g/dL Lipase 87 (23-300) U/L Urine Color Yellow (Yellow) Urine Appearance Clear (Clear) Urine pH 6.5 (5.0-9.0) Ur Specific Lee 1.002 (1.001-1.035) Urine Protein Negative (Negative) mg/dL Urine Glucose (UA) Negative (Negative) mg/dL Urine Ketones Negative (Negative) mg/dL Ur Blood (Man) Negative (Negative) Urine Nitrate Negative (Negative) Urine Bilirubin Negative (Negative) Urine Urobilinogen 0.2 (<2.0) mg/dL Leukocyte Esterase Rfl Negative (Negative) YOEL/UL <Fernandez Garner MD - Last Filed: 02/11/25 21:50> Imaging Data Radiologist's impression: ITS Impressions Chest/Abdomen/Pelvis CT 02/11/25 18:28 IMPRESSION: Moderate esophagitis/gastritis. Hepatomegaly with steatosis. Possible cystitis, correlate with urinalysis. <Jaja Norris APRN - Last Filed: 02/11/25 14:50> ITS Impressions Chest/Abdomen/Pelvis CT 02/11/25 18:28 IMPRESSION: Moderate esophagitis/gastritis. Hepatomegaly with steatosis. Possible cystitis, correlate with urinalysis. <Fernandez Garner MD - Last Filed: 02/11/25 21:50> Discharge Plan Discharge Clinical Impression: Esophagitis, Gastritis <Jaja Norris APRN - Last Filed: 02/11/25 14:50> Patient Disposition: Home, Self-Care <Jaja Norris APRN - Last Filed: 02/11/25 14:50> Condition: Stable <Jaja Norris APRN - Last Filed: 02/11/25 14:50> Instructions: Antibiotic Form, Gastritis (ED), Diet for Stomach Ulcers and Gastritis (ED) <Jaja Norris APRN - Last Filed: 02/11/25 14:50> Additional Instructions: Omeprazole daily for the next 14 days. Maalox as needed for intermittent epigastric and gastric pain. Follow a bland diet. Avoid NSAIDs and avoid alcohol. Continue to educate yourself on cannabinoid hyperemesis syndrome and I strongly recommend to refrain from THC for greater than 1 month. Have close follow-up with GI. If you have any worsening symptoms please call or return to the emergency department. <Jaja Norris APRN - Last Filed: 02/11/25 14:50> Patient Language: Slovak <Jaja Norris APRN - Last Filed: 02/11/25 14:50> Prescriptions: No Action albuterol sulfate [ProAir HFA] 90 mcg/actuation HFA aerosol inhaler 2 puff INHALATION Q4-6H PRN (Reason: shortness of breath or wheezing) Qty: 1 6RF aspirin 325 mg tablet 325 mg PO .PRN <Jaja Norris APRN - Last Filed: 02/11/25 14:50> Follow-up/Referrals: Jak,Jose Palomares MD [Non-Staff] - Agustín Durán MD [Physician] - <Jaja Norris APRN - Last Filed: 02/11/25 14:50>
[2025-02-11 15:37] LABS: Basophils Absolute Auto 0.1 K/mm3 (0.0-0.1); Basophils Percent Auto 0.8 % (0.2-1.2); Eosinophils Percent Auto 0.3 % (0-4.4); Hematocrit 39.8 % (37.0-47.0); Hemoglobin 14.2 g/dL (12.0-15.0); Immature Granulocyte Absolute 0.05 K/mm3 (0.00-0.031); Immature Granulocyte Percent A 0.4 % (0-0.5); Lymphocytes Absolute Auto 2.34 K/mm3 (0.9-3.2); Lymphocytes Percent Auto 20.3 % (18.3-44.2); Mean Corpuscular HGB Conc 35.7 g/dl (32-36); Mean Corpuscular Hemoglobin 33.1 pg (26-34); Mean Corpuscular Volume 92.8 fl (80-100); Mean Platelet Volume 10.5 fl (7.4-10.4); Monocytes Absolute Auto 0.7 K/mm3 (0.1-0.6); Monocytes Percent Auto 6.3 % (2.6-8.5); Neutrophils Absolute Auto 8.3 K/mm3 (1.3-6.7); Neutrophils Percent Auto 71.9 % (45.5-73.1); Platelet Count Result 279 k/mm3 (150-375); Red Blood Count 4.29 M/mm3 (4.2-5.4); Red Cell Distribution Width 11.9 % (11.5-14.5); White Blood Count 11.5 K/mm3 (4.5-10.0)
[2025-02-11 15:38] LABS: Add Urine Microscopic? NO; Appearance Urine Clear (Clear); Bilirubin Urine Negative (Negative); Blood Urine Negative (Negative); Color Urine Yellow (Yellow); Glucose Urine UA Negative (Negative); Ketones Urine Negative (Negative); Leukocyte Esterase Ur Negative LEU/UL (Negative); Nitrate Urine Negative (Negative); Protein Urine Negative (Negative); Specific Grav Ur 1.002 (1.001-1.035); Urobilinogen Urine 0.2 mg/dL (<2.0); pH Urine 6.5 (5.0-9.0)
[2025-02-11 15:47] LABS: Alanine Aminotransferase 74 U/L (6-35); Albumin Level 4.8 g/dL (3.5-5.1); Alkaline Phosphatase 59 U/L (38-126); Anion Gap 16 mmol/L (4-12); Aspartate Amino Transferase 92 U/L (14-36); Bilirubin,Total 0.7 mg/dL (0.2-1.3); Blood Urea Nitrogen 5 mg/dL (7-17); Calcium 9.4 mg/dL (8.4-10.2); Carbon Dioxide 19 mmol/L (22-30); Chloride 102 mmol/L (98-107); Estimated CRCL calculation 83 ml/min; Estimated Glomerular Filt Rate > 60; Glucose 176 mg/dL (65-110); Lipase 87 U/L (23-300); Sodium 137 mmol/L (137-145)
[2025-02-11 15:50] LABS: Partial Thromboplastin Time 27.9 Seconds (22.3-36.8); Prothrombin Time 13.9 Seconds (11.1-14.7)
[2025-02-11 15:59] LABS: Troponin I < 0.012 ng/mL (0.000-0.034)
--- OUTSIDE RECORDS SUMMARY | 2025-02-11 16:45 | XMS_ITS | Encounter Summary ---
Author Organization [facility] - [facility] Address [address] [place] [address] Care Team Providers Care Distribution Engineering Technologist Name Role Phone Dasha Conway [facility] Primary Care Provider [phone]- [phone] Encounter Details Date Type Department Care Team (Late st Contact Info) Description 05/12/2021 [employer]hart Message Enc [facility] Medical Group Multispecialty Care - [place] [address] [address] [address] [place] [address] [place] [address] [place] [address] [address] [place] [address] RE: Question Social History Tobacco Use Types Packs/Day Years Used Date Smoking Tobacco: Every Day Cigarettes 0.5 26 Smokeless Tobacco: Never Comments:tried patches, gum, lozenges, nicotrol inhaler and chantix to quit without success. patient down to [address] Diaz. Alcohol Use Standard Drinks/Week Comments Not Currently 0 (1 standard drink = 0.6 oz pur e alcohol) PHQ-2 Answer Date Recorded PHQ-2 Score - If the patient scores above 3, please move on to questions 3-9 6 03/27/2021 Comments No Sex and Gender Information Value Date Recorded Sex Assigned at Female 01/08/2021 9:43 AM ORGAN TEACHER Legal Sex Female 5:13 PM CDT Gender Identity Female 01/08/2021 9:43 AM ORGAN TEACHER Sexual Orientation Straight 01/08/2021 9: 43 AM ORGAN TEACHER COVID-19 Exposure Response Date Recorded In the last month, have you been in contact with someone who was confirmed or suspected to have Coronavirus / COVID-19? No / Unsure 05/12/2021 6:51 PM CDT documented as of this encounter Plan of Treatment Not on file documented as of this encounter Visit Diagnoses Not on filedocumented in this encounter Additional Health Concerns Infection Onset Date Last Indicated Resolved Time 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 06/30/2017 COVID-19 Rule Out 06/05/2021 06/05/2021 06/05/2021 12:31 PM CDT COVID-19 Rule Out 10/23/2021 10/23/2021 10/23/2021 9:25 AM ORGAN TEACHER COVID-19 Rule Out 10/23/2021 10/23/2021 10/24/2021 12:21 AM ORGAN TEACHER COVID-19 Rule Out 01/15/2022 01/15/2022 01/20/2022 10:53 AM ORGAN TEACHER COVID-19 Rule Out 04/21/2022 04/21/2022 04/21/2022 11:42 AM CDT COVID-19 Rule Out 04/21/2022 04/21/2022 04/26/2022 7:02 AM CDT COVID-19 Rule Out 10/06/2022 10/06/2022 10/06/2022 1:21 PM ORGAN TEACHER COVID-19 Rule Out 10/06/2022 10/06/2022 10/07/2022 3:34 PM ORGAN TEACHER COVID-19 Rule Out 09/14/2023 09/14/2023 09/14/2023 3:48 PM CDT COVID-19 Rule Out 11/02/2024 11/02/2024 11/02/2024 4:03 PM ORGAN TEACHER Assessment Noted Time PHQ-9 Depression Total Score: 22 021 9:18 AM CDT documented as of this encounter Care Teams Distribution Engineering Technologist Relationship Specialty Start Date End Date Dasha Conway, LOG OPERATIONS COORDINATOR-STEPH [address] [place] [id number] PCP - General 11/02/24 documented as of this encounter
--- OUTSIDE RECORDS SUMMARY | 2025-02-11 16:45 | XMS_ITS | Encounter Summary ---
Author Organization [facility] - [facility] Address [address] [place] [address] Care Team Providers Care Care Aide Name Role Phone Dasha Conway [facility] Primary Care Provider [phone]- [phone] Encounter Details Date Type Department Care Team (Latest Contact Info) Description 02/11/2022 [employer] Message Enc [facility] Medical Group Multispecialty Care - [place] [address] [address] [place] [address] [place] [address] [place] [address] [address] [place] [address] Urine culture results Social History Tobacco Use Types Packs/Day Years Used Date Smoking Tobacco: Every Day Cigarettes 0.5 26 Smokeless Tobacco: Never Comments:tried patches, gum, lozenges, nicotrol inhaler and chantix to quit without success. patient down to 6 sticks per day. counseled by Dr Diaz. Alcohol Use Standard Drinks/Week Comments Not Currently 0 (1 standard drink = 0.6 oz pur e alcohol) PHQ-2 Answer Date Recorded PHQ-2 Score - If the patient scores above 3, please move on to questions 3-9 2 11/03/2021 Comments No Sex and Gender Information Value Date Recorded Sex Assigned at Female 01/08/2021 9:43 AM DAIRY SCIENCE TEACHER Legal Sex Female 5:13 PM CDT Gender Identity Female 01/08/2021 9:43 AM DAIRY SCIENCE TEACHER Sexual Orientation Straight 01/08/2021 9: 43 AM DAIRY SCIENCE TEACHER COVID-19 Exposure Response Date Recorded In the last 10 days, have asif rodriguez been in contact with someone who was confirmed or suspected to have Coronavirus/COVID-19? No / Unsure 02/10/2022 10:06 AM CDT documented as of this encounter Functional Status * RETIRED Are you deaf or do you have serious difficulty hearing Answer Date of Assessment Author Status No 01/29/2022 10:15 PM DAIRY SCIENCE TEACHER Acti ve * RETIRED Are you blind or do you have serious difficulty seeing, even when wearing glasses? Answer Date of Assessment Author Status No 01/29/2022 10:15 PM DAIRY SCIENCE TEACHER Acti ve * Do you have serious difficulty walking or climbing stairs? Answer Date of Assessment Author Status No 01/29/2022 10:15 PM Nanette Bagley RN Active * Do you have difficulty dressing or bathing? Answer Date of Assessment Author Status No 01/29/2022 10:15 PM Nanette Bagley RN Active * Because of a physical, mental, or emotional condition, do you have difficulty doing errands alone such as visiting a doctor's office or shopping? Answer Date of Assessment Author Status No 01/29/2022 10:15 PM Nanette Bagley RN Active documented as of this encounter Mental Status * Because of a physical, mental, or emotional condition, do you have serious difficulty concentrating, remembering, or making decisions? Answer Entry Date Author Status No 01/29/2022 10:15 PM Nanette Bagley RN Active documented in this encounter Plan of Treatment Not on file documented as of this encounter Visit Diagnoses Not on filedocumented in this encounter Additional Health Concerns Infection Onset Date Last Indicated Resolved Time 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 06/30/2017 COVID-19 Rule Out 04/21/2022 04/21/2022 04/21/2022 11:42 AM CDT COVID-19 Rule Out 04/21/2022 04/21/2022 04/26/2022 7:02 AM CDT COVID-19 Rule Out 10/06/2022 10/06/2022 10/06/2022 1:21 PM DAIRY SCIENCE TEACHER COVID-19 Rule Out 10/06/2022 10/06/2022 10/07/2022 3:34 PM DAIRY SCIENCE TEACHER COVID-19 Rule Out 09/14/2023 09/14/2023 09/14/2023 3:48 PM CDT COVID-19 Rule Out 11/02/2024 11/02/2024 11/02/2024 4:03 PM DAIRY SCIENCE TEACHER Assessment Noted Time PHQ-9 Depression Total Score: 15 021 11:10 AM DAIRY SCIENCE TEACHER documented as of this encounter Care Teams Care Aide Relationship Specialty Start Date End Date Dasha Conway, LINEN CLERK- [address] [place] [id number] PCP - General 11/02/24 documented as of this encounter
--- OUTSIDE RECORDS SUMMARY | 2025-02-11 16:45 | XMS_ITS | Encounter Summary ---
Author Organization [facility] - [facility] Address [address] [place] [address] Care Team Providers Care Dining Car Steward Name Role Phone Dasha Conway [facility] Primary Care Provider [phone]- [phone] Encounter Details Date Type Department Care Team (Latest Contact Info) Description 02/03/2022 9[employer] Message Enc [facility] Medical Group Multispecialty Care [place] [address] [address] [place] [address] [place] [address] [place] [address] [address] [place] [address] Zofran and fosfomycin Social History Tobacco Use Types Packs/Day Years [...] Sex Assigned at Female 01/08/2021 9:43 AM SKILLED NURSING PROFESSIONAL Legal Sex Female 5:13 PM CDT Gender Identity Female 01/08/2021 9:43 AM SKILLED NURSING PROFESSIONAL Sexual Orientation Straight 01/08/2021 9: 43 AM SKILLED NURSING PROFESSIONAL COVID-19 Exposure Response Date Recorded In the last 10 days, have asif rodriguez been in contact with someone who was confirmed or suspected to have Coronavirus/COVID-19? No / Unsure 02/02/2022 10:59 AM CDT documented as of this encounter Functional Status * RETIRED Are you deaf or do you have serious difficulty hearing Answer Date of Assessment Author Status No 01/29/2022 10:15 PM SKILLED NURSING PROFESSIONAL Acti ve * RETIRED Are you blind or do you have serious difficulty seeing, even when wearing glasses? Answer Date of Assessment Author Status No 01/29/2022 10:15 PM SKILLED NURSING PROFESSIONAL Acti ve * Do you have serious [...] Rule Out 10/06/2022 10/06/2022 10/06/2022 1:21 PM SKILLED NURSING PROFESSIONAL COVID-19 Rule Out 10/06/2022 10/06/2022 10/07/2022 3:34 PM SKILLED NURSING PROFESSIONAL COVID-19 Rule Out 09/14/2023 09/14/2023 09/14/2023 3:48 PM CDT COVID-19 Rule Out 11/02/2024 11/02/202411/02/2024 4:03 PM SKILLED NURSING PROFESSIONAL Assessment Noted Time PHQ-9 Depression Total Score: 15 021 11:10 AM SKILLED NURSING PROFESSIONAL documented as of this encounter Care Teams Dining Car Steward Relationship Specialty Start Date End Date Dasha Conway, PLYWOOD MATCHER- [address] [place] [id number] PCP - General 11/02/24 documented as of this encounter
--- OUTSIDE RECORDS SUMMARY | 2025-02-11 16:45 | XMS_ITS | Encounter Summary ---
Author Organization [facility] - [facility] Address [address] [place] [address] Care Team Providers Care Sprinkler Fitter Name Role Phone Dasha Conway [facility] Primary Care Provider +1- [phone] Encounter Details Date Type Department Care Team (Latest Contact Info) Description 08/14/2021 Gogobeanshart Message Enc [facility] Medical Group Multispecialty Care - [place] [address] [address] [address] [place] [address] [place] [address] [place] [address] [address] [place] [address] RE: Medication Questions Social History Tobacco Use Types Packs/Day Years [...] Sex Assigned at Female 01/08/2021 9:43 AM MEAT SCRUBBER Legal Sex Female 5:13 PM CDT Gender Identity Female 01/08/2021 9:43 AM MEAT SCRUBBER Sexual Orientation Straight 01/08/2021 9: 43 AM MEAT SCRUBBER COVID-19 Exposure Response Date Recorded In the last month, have you been in contact with someone who was confirmed or suspected to have Coronavirus / COVID-19? No / Unsure 08/11/2021 11:24 AM CDT documented as of this encounter Plan of Treatment Not on file documented as of this encounter Visit Diagnoses Not on filedocumented in this encounter Additional Health Concerns Infection Onset Date Last Indicated Resolved Time 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 06/30/2017 COVID-19 Rule Out 10/23/2021 10/23/2021 10/23/2021 9:25 AM MEAT SCRUBBER COVID-19 Rule Out 10/23/2021 10/23/2021 10/24/2021 12:21 AM MEAT SCRUBBER COVID-19 Rule Out 01/15/2022 01/15/2022 01/20/2022 10:53 AM MEAT SCRUBBER COVID-19 Rule Out 04/21/2022 04/21/2022 04/21/2022 11:42 AM CDT COVID-19 Rule Out 04/21/2022 04/21/2022 04/26/2022 7:02 AM CDT COVID-19 Rule Out 10/06/2022 10/06/2022 10/06/2022 1:21 PM MEAT SCRUBBER COVID-19 Rule Out 10/06/2022 10/06/2022 10/07/2022 3:34 PM MEAT SCRUBBER COVID-19 Rule Out 09/14/2023 09/14/2023 09/14/2023 3:48 PM CDT COVID-19 Rule Out 11/02/2024 11/02/2024 11/02/2024 4:03 PM MEAT SCRUBBER Assessment Noted Time PHQ-9 Depression Total Score: 22 05 021 9:18 AM CDT documented as of this encounter Care Teams Sprinkler Fitter Relationship Specialty Start Date End Date Dasha Conway FNP-STEPH [address] [place] [address] PCP - General 11/02/24 documented as of this encounter
--- OUTSIDE RECORDS SUMMARY | 2025-02-11 16:45 | XMS_ITS | Encounter Summary ---
Author Organization [facility] - [facility] Address [address] [place] [address] Care Team Providers Care Manager Hi Name Role Phone Dasha Conway [facility] Primary Care Provider +1- [phone] Encounter Details Date Type Department Care Team (Late st Contact Info) Description 02/07/2022 Only Natural Pet Storehart Message Enc [facility] Medical Group Multispecialty Care - [place] [address] [address] [address] [place] [address] [place] [address] [place] [address] 157 [place] [address] Apology Social History Tobacco Use Types Packs/Day Years [...] Sex Assigned at Female 01/08/2021 9:43 AM ELEMENTARY ART TEACHER Legal Sex Female 5:13 PM CDT Gender Identity Female 01/08/2021 9:43 AM ELEMENTARY ART TEACHER Sexual Orientation Straight 01/08/2021 9: 43 AM ELEMENTARY ART TEACHER COVID-19 Exposure Response Date Recorded In the last 10 days, have asif rodriguez been in contact with someone who was confirmed or suspected to have Coronavirus/COVID-19? No / Unsure 02/10/2022 10:06 AM CDT documented as of this encounter Functional Status * RETIRED Are you deaf or do you have serious difficulty hearing Answer Date of Assessment Author Status No 01/29/2022 10:15 PM ELEMENTARY ART TEACHER Acti ve * RETIRED Are you blind or do you have serious difficulty seeing, even when wearing glasses? Answer Date of Assessment Author Status No 01/29/2022 10:15 PM ELEMENTARY ART TEACHER Acti ve * Do you have [...] Rule Out 10/06/2022 10/06/2022 10/06/2022 1:21 PM ELEMENTARY ART TEACHER COVID-19 Rule Out 10/06/2022 10/06/2022 10/07/2022 3:34 PM ELEMENTARY ART TEACHER COVID-19 Rule Out 09/14/2023 09/14/2023 09/14/2023 3:48 PM CDT COVID-19 Rule Out 11/02/2024 11/02/2024 11/02/2024 4:03 PM ELEMENTARY ART TEACHER Assessment Noted Time PHQ-9 Depression Total Score: 15 021 11:10 AM ELEMENTARY ART TEACHER documented as of this encounter Care Teams Manager Hi Relationship Specialty Start Date End Date Dasha Conway, HIGH PRESSURE FIRER- [address] [place] [address] PCP - General 11/02/24 documented as of this encounter
--- OUTSIDE RECORDS SUMMARY | 2025-02-11 16:45 | XMS_ITS | Encounter Summary ---
Author Organization [facility] - [facility] Address [address] [place] [address] Care Team Providers Care Golf Club Assembler Name Role Phone Dasha Conway [facility] Primary Care Provider +1- [phone] Encounter Details Date Type Department Care Team (Latest Contact Info) Description 10/23/2021 DogSpott Message Enc [facility] Medical Group Multispecialty Care - [place] [address] [address] [address] [place] [address] [place] [address] [place] [address] 157 [place] [address] Chest x-ray results Social History Tobacco Use Types Packs/Day [...] Sex Assigned at Female 01/08/2021 9:43 AM MUSIC LIBRARIAN Legal Sex Female 5:13 PM CDT Gender Identity Female 01/08/2021 9:43 AM MUSIC LIBRARIAN Sexual Orientation Straight 01/08/2021 9: 43 AM MUSIC LIBRARIAN COVID-19 Exposure Response Date Recorded In the last month, have you been in contact with someone who was confirmed or suspected to have Coronavirus / COVID-19? No / Unsure 10/22/2021 9:17 AM MUSIC LIBRARIAN documented as of this encounter Plan of Treatment Not on file documented as of this encounter Visit Diagnoses Not on filedocumented in this encounter Additional Health Concerns Infection Onset Date Last Indicated Resolved Time 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 06/30/2017 COVID-19 Rule Out 10/23/2021 10/23/2021 10/23/2021 9:25 AM MUSIC LIBRARIAN COVID-19 Rule Out 10/23/2021 10/23/2021 10/24/2021 12:21 AM MUSIC LIBRARIAN COVID-19 Rule Out 01/15/2022 01/15/2022 01/20/2022 10:53 AM MUSIC LIBRARIAN COVID-19 Rule Out 04/21/2022 04/21/2022 04/21/2022 11:42 AM CDT COVID-19 Rule Out 04/21/2022 04/21/2022 04/26/2022 7:02 AM CDT COVID-19 Rule Out 10/06/2022 10/06/2022 10/06/2022 1:21 PM MUSIC LIBRARIAN COVID-19 Rule Out 10/06/2022 10/06/2022 10/07/2022 3:34 PM MUSIC LIBRARIAN COVID-19 Rule Out 09/14/2023 09/14/2023 09/14/2023 3:48 PM CDT COVID-19 Rule Out 11/02/2024 11/02/2024 11/02/2024 4:03 PM MUSIC LIBRARIAN Assessment Noted Time PHQ-9 Depression Total Score: 22 05 021 9:18 AM CDT documented as of this encounter Care Teams Golf Club Assembler Relationship Specialty Start Date End Date Dasha Conway FNP-STEPH [address] [place] [address] PCP - General 11/02/24 documented as of this encounter
--- OUTSIDE RECORDS SUMMARY | 2025-02-11 16:45 | XMS_ITS | Encounter Summary ---
Author Organization [facility] - [facility] Address [address] [place] [address] Care Team Providers Care Attendant Honor Bar Name Role Phone Dasha Conway [facility] Primary Care Provider +1- [phone] Encounter Details Date Type Department Care Team (Latest Contact Info) Description 03/08/2022 Kompyte.hart Message Enc [facility] Medical Group Multispecialty Care - [place] [address] [address] [address] [place] [address] [place] [address] [place] [address] [address] [place] [address] Kidney infection Social History Tobacco Use Types Packs/Day Years [...] Sex Assigned at Female 01/08/2021 9:43 AM APPEALS REFEREE Legal Sex Female 5:13 PM CDT Gender Identity Female 01/08/2021 9:43 AM APPEALS REFEREE Sexual Orientation Straight 01/08/2021 9: 43 AM APPEALS REFEREE COVID-19 Exposure Response Date Recorded In the last 10 days, have asif rodriguez been in contact with someone who was confirmed or suspected to have Coronavirus/COVID-19? No / Unsure 03/10/2022 3:15 PM CDT documented as of this encounter Functional Status * RETIRED Are you deaf or do you have serious difficulty hearing Answer Date of Assessment Author Status No 01/29/2022 10:15 PM APPEALS REFEREE Acti ve * RETIRED Are you blind or do you have serious difficulty seeing, even when wearing glasses? Answer Date of Assessment Author Status No 01/29/2022 10:15 PM APPEALS REFEREE Acti ve * Do you have serious [...] Rule Out 10/06/2022 10/06/2022 10/06/2022 1:21 PM APPEALS REFEREE COVID-19 Rule Out 10/06/2022 10/06/2022 10/07/2022 3:34 PM APPEALS REFEREE COVID-19 Rule Out 09/14/2023 09/14/2023 09/14/2023 3:48 PM CDT COVID-19 Rule Out 11/02/2024 11/02/2024 11/02/2024 4:03 PM APPEALS REFEREE Assessment Noted Time PHQ-9 Depression Total Score: 15 021 11:10 AM APPEALS REFEREE documented as of this encounter Care Teams Attendant Honor Bar Relationship Specialty Start Date End Date Dasha Conway, CUSTOMER SUPPORT ASSOCIATE- [address] [place] [address] PCP - General 11/02/24 documented as of this encounter
--- OUTSIDE RECORDS SUMMARY | 2025-02-11 16:45 | XMS_ITS | Encounter Summary ---
Author Organization [facility] - [facility] Address [address] [place] [address] Care Team Providers Care Delicatessen Clerk Name Role Phone Dasha Conway [facility] Primary Care Provider +1- [phone] Encounter Details Date Type Department Care Team (Late st Contact Info) Description 04/08/2021 RxResultshart Message Enc [facility] Medical Group Multispecialty Care - [place] [address] [address] [address] [place] [address] [place] [address] [place] [address] 157 [place] [address] RE: Question Social History Tobacco [...] Sex Assigned at Female 01/08/2021 9:43 AM DEVELOPER PROGRAMMER ANALYST Legal Sex Female 5:13 PM CDT Gender Identity Female 01/08/2021 9:43 AM DEVELOPER PROGRAMMER ANALYST Sexual Orientation Straight 01/08/2021 9: 43 AM DEVELOPER PROGRAMMER ANALYST COVID-19 Exposure Response Date Recorded In the last month, have you been in contact with someone who was confirmed or suspected to have Coronavirus / COVID-19? No / Unsure 04/02/2021 12:04 PM CDT documented as of this encounter Plan of Treatment Not on file documented as of this encounter Visit Diagnoses Not on filedocumented in this encounter Additional Health Concerns Infection Onset Date Last Indicated Resolved Time 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 06/30/2017 COVID-19 Rule Out 06/05/2021 06/05/2021 06/05/2021 12:31 PM CDT COVID-19 Rule Out 10/23/2021 10/23/2021 10/23/2021 9:25 AM DEVELOPER PROGRAMMER ANALYST COVID-19 Rule Out 10/23/2021 10/23/2021 10/24/2021 12:21 AM DEVELOPER PROGRAMMER ANALYST COVID-19 Rule Out 01/15/2022 01/15/2022 01/20/2022 10:53 AM DEVELOPER PROGRAMMER ANALYST COVID-19 Rule Out 04/21/2022 04/21/2022 04/21/2022 11:42 AM CDT COVID-19 Rule Out 04/21/2022 04/21/2022 04/26/2022 7:02 AM CDT COVID-19 Rule Out 10/06/2022 10/06/2022 10/06/2022 1:21 PM DEVELOPER PROGRAMMER ANALYST COVID-19 Rule Out 10/06/2022 10/06/2022 10/07/2022 3:34 PM DEVELOPER PROGRAMMER ANALYST COVID-19 Rule Out 09/14/2023 09/14/2023 09/14/2023 3:48 PM CDT COVID-19 Rule Out 11/02/2024 11/02/2024 11/02/2024 4:03 PM DEVELOPER PROGRAMMER ANALYST Assessment Noted Time PHQ-9 Depression Total Score: 22 021 9:18 AM CDT documented as of this encounter Care Teams Delicatessen Clerk Relationship Specialty Start Date End Date Dasha Conway, BIOMETRICS HEAD-STEPH [address] [place] [address] PCP - General 11/02/24 documented as of this encounter
--- OUTSIDE RECORDS SUMMARY | 2025-02-11 16:45 | XMS_ITS | Encounter Summary ---
Author Organization [facility] - [facility] Address [address] [place] [address] Care Team Providers Care Signs Cleaner Name Role Phone Dasha Conway [facility] Primary Care Provider +1- [phone] Encounter Details Date Type Department Care Team (Late st Contact Info) Description 03/01/2022 Ophis Vapehart Message Enc [facility] Medical Group Multispecialty Care - [place] [address] [address] [address] [place] [address] [place] [address] [place] [address] 157 [place] [address] Abdominal mri Social History Tobacco Use Types Packs/Day Years [...] Sex Assigned at Female 01/08/2021 9:43 AM HORSE BREAKER Legal Sex Female 5:13 PM CDT Gender Identity Female 01/08/2021 9:43 AM HORSE BREAKER Sexual Orientation Straight 01/08/2021 9: 43 AM HORSE BREAKER COVID-19 Exposure Response Date Recorded In the last 10 days, have asif rodriguez been in contact with someone who was confirmed or suspected to have Coronavirus/COVID-19? No / Unsure 02/10/2022 10:06 AM CDT documented as of this encounter Functional Status * RETIRED Are you deaf or do you have serious difficulty hearing Answer Date of Assessment Author Status No 01/29/2022 10:15 PM HORSE BREAKER Acti ve * RETIRED Are you blind or do you have serious difficulty seeing, even when wearing glasses? Answer Date of Assessment Author Status No 01/29/2022 10:15 PM HORSE BREAKER Acti ve * Do you have serious [...] Rule Out 10/06/2022 10/06/2022 10/06/2022 1:21 PM HORSE BREAKER COVID-19 Rule Out 10/06/2022 10/06/2022 10/07/2022 3:34 PM HORSE BREAKER COVID-19 Rule Out 09/14/2023 09/14/2023 09/14/2023 3:48 PM CDT COVID-19 Rule Out 11/02/2024 11/02/2024 11/02/2024 4:03 PM HORSE BREAKER Assessment Noted Time PHQ-9 Depression Total Score: 15 021 11:10 AM HORSE BREAKER documented as of this encounter Care Teams Signs Cleaner Relationship Specialty Start Date End Date Dasha Conway, FINISHER PLATE- [address] [place] [address] PCP - General 11/02/24 documented as of this encounter
--- OUTSIDE RECORDS SUMMARY | 2025-02-11 16:45 | XMS_ITS | Encounter Summary ---
Author Organization [facility] Address [address] [place] [address] Care Team Providers Care Dehydrogenation Operator Name Role Phone Dasha Conway [facility] Primary Care Provider +1- [phone] Encounter Details Date Type Department Care Team (Late st Contact Info) Description 03/24/[address] [facility] Medical Group Multispecialty Care - [place] [address] [address] [place] [address] [place] [address] [place] [address] [address] [place] [address] Dexamethasone Social History Tobacco Use Types Packs/Day Years Used Date Smoking Tobacco: Every Day Cigarettes 1 27 Smokeless Tobacco: Never Comments:tried patches, gum, lozenges, nicotrol inhaler, auriculotherapy and chantix to quit without success Alcohol Use Standard Drinks/Week Comments Not Currently 0 (1 standard drink = 0.6 oz pur e alcohol) PHQ-2 Answer Date Recorded PHQ-2 Score - If the patient scores above 3, please move on to questions 3-9 2 11/03/2021 Comments No Sex and Gender Information Value Date Recorded Sex Assigned at Female 01/08/2021 9:43 AM APPLICATIONS ENGINEER MANUFACTURING Legal Sex Female 5:13 PM CDT Gender Identity Female 01/08/2021 9:43 AM APPLICATIONS ENGINEER MANUFACTURING Sexual Orientation Straight 01/08/2021 9: 43 AM APPLICATIONS ENGINEER MANUFACTURING COVID-19 Exposure Response Date Recorded In the last 10 days, have asif rodriguez been in contact with someone who was confirmed or suspected to have Coronavirus/COVID-19? No / Unsure 03/20/2022 10:11 AM CDT documented as of this encounter Functional Status * RETIRED Are you deaf or do you have serious difficulty hearing Answer Date of Assessment Author Status No 01/29/2022 10:15 PM APPLICATIONS ENGINEER MANUFACTURING Acti ve * RETIRED Are you blind or do you have serious difficulty seeing, even when wearing glasses? Answer Date of Assessment Author Status No 01/29/2022 10:15 PM APPLICATIONS ENGINEER MANUFACTURING Acti ve * Do you have serious [...] Rule Out 10/06/2022 10/06/2022 10/06/2022 1:21 PM APPLICATIONS ENGINEER MANUFACTURING COVID-19 Rule Out 10/06/2022 10/06/2022 10/07/2022 3:34 PM APPLICATIONS ENGINEER MANUFACTURING COVID-19 Rule Out 09/14/2023 09/14/2023 09/14/2023 3:48 PM CDT COVID-19 Rule Out 11/02/2024 11/02/2024 11/02/2024 4:03 PM APPLICATIONS ENGINEER MANUFACTURING Assessment Noted Time PHQ-9 Depression Total Score: 15 021 11:10 AM APPLICATIONS ENGINEER MANUFACTURING documented as of this encounter Care Teams Dehydrogenation Operator Relationship Specialty Start Date End Date Dasha Conway, PASTE THINNER- [address] [place] [address] PCP - General 11/02/24 documented as of this encounter
--- OUTSIDE RECORDS SUMMARY | 2025-02-11 16:45 | XMS_ITS | Encounter Summary ---
Author Organization [facility] Address [address] [place] [address] Care Team Providers Care Tents Assembler Name Role Phone Dasha Conway [facility] Primary Care Provider +1- [phone] Encounter Details Date Type Department Care Team (Late st Contact Info) Description 04/10/2022 Ligand Pharmaceuticalst Message Enc [facility] Medical Group Multispecialty Care - [place] [address] [address] [place] [address] [place] [address] [place] [address] [address] [place] [address] Slu allergy Social History Tobacco Use Types Packs/Day Years [...] Sex Assigned at Female 01/08/2021 9:43 AM VALVE TESTER Legal Sex Female 5:13 PM CDT Gender Identity Female 01/08/2021 9:43 AM VALVE TESTER Sexual Orientation Straight 01/08/2021 9: 43 AM VALVE TESTER COVID-19 Exposure Response Date Recorded In the last 10 days, have asif rodriguez been in contact with someone who was confirmed or suspected to have Coronavirus/COVID-19? No / Unsure 03/28/2022 8:31 PM CDT documented as of this encounter Functional Status * RETIRED Are you deaf or do you have serious difficulty hearing Answer Date of Assessment Author Status No 01/29/2022 10:15 PM VALVE TESTER Acti ve * RETIRED Are you blind or do you have serious difficulty seeing, even when wearing glasses? Answer Date of Assessment Author Status No 01/29/2022 10:15 PM VALVE TESTER Acti ve * Do you have serious [...] Rule Out 10/06/2022 10/06/2022 10/06/2022 1:21 PM VALVE TESTER COVID-19 Rule Out 10/06/2022 10/06/2022 10/07/2022 3:34 PM VALVE TESTER COVID-19 Rule Out 09/14/2023 09/14/2023 09/14/2023 3:48 PM CDT COVID-19 Rule Out 11/02/2024 11/02/2024 11/02/2024 4:03 PM VALVE TESTER Assessment Noted Time PHQ-9 Depression Total Score: 15 12/14/2 021 11:10 AM VALVE TESTER documented as of this encounter Care Teams Tents Assembler Relationship Specialty Start Date End Date Dasha Conway, LACQUER PIN PRESS OPERATOR- [address] [place] [address] PCP - General 11/02/24 documented as of this encounter
--- OUTSIDE RECORDS SUMMARY | 2025-02-11 16:45 | XMS_ITS | Encounter Summary ---
Author Organization [facility] - [facility] Address [address] [place] [address] Care Team Providers Care Hyperbaric Nurse Name Role Phone Dasha Conway [facility] Primary Care Provider +1- [phone] Encounter Details Date Type Department Care Team (Late st Contact Info) Description 05/06/2021 Open Milet Message Enc [facility] Medical Group Multispecialty Care - [place] [address] [address] [place] [address] [place] [address] [place] [address] [address] [place] [address] update Social History Tobacco Use Types Packs/Day Years [...] Sex Assigned at Female 01/08/2021 9:43 AM IRRIGATION EQUIPMENT INSTALLER Legal Sex Female 5:13 PM CDT Gender Identity Female 01/08/2021 9:43 AM IRRIGATION EQUIPMENT INSTALLER Sexual Orientation Straight 01/08/2021 9: 43 AM IRRIGATION EQUIPMENT INSTALLER COVID-19 Exposure Response Date Recorded In the last month, have you been in contact with someone who was confirmed or suspected to have Coronavirus / COVID-19? No / Unsure 05/07/2021 1:33 PM CDT documented as of this encounter Plan of Treatment Not on file documented as of this encounter Visit Diagnoses Not on filedocumented in this encounter Additional Health Concerns Infection Onset Date Last Indicated Resolved Time 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 06/30/2017 COVID-19 Rule Out 06/05/2021 06/05/2021 06/05/2021 12:31 PM CDT COVID-19 Rule Out 10/23/2021 10/23/2021 10/23/2021 9:25 AM IRRIGATION EQUIPMENT INSTALLER COVID-19 Rule Out 10/23/2021 10/23/2021 10/24/2021 12:21 AM IRRIGATION EQUIPMENT INSTALLER COVID-19 Rule Out 01/15/2022 01/15/2022 01/20/2022 10:53 AM IRRIGATION EQUIPMENT INSTALLER COVID-19 Rule Out 04/21/2022 04/21/2022 04/21/2022 11:42 AM CDT COVID-19 Rule Out 04/21/2022 04/21/2022 04/26/2022 7:02 AM CDT COVID-19 Rule Out 10/06/2022 10/06/2022 10/06/2022 1:21 PM IRRIGATION EQUIPMENT INSTALLER COVID-19 Rule Out 10/06/2022 10/06/2022 10/07/2022 3:34 PM IRRIGATION EQUIPMENT INSTALLER COVID-19 Rule Out 09/14/2023 09/14/2023 09/14/2023 3:48 PM CDT COVID-19 Rule Out 11/02/2024 11/02/2024 11/02/2024 4:03 PM IRRIGATION EQUIPMENT INSTALLER Assessment Noted Time PHQ-9 Depression Total Score: 22 021 9:18 AM CDT documented as of this encounter Care Teams Hyperbaric Nurse Relationship Specialty Start Date End Date Dasha Conway FNP-STEPH [address] [place] [address] PCP - General 11/02/24 documented as of this encounter
--- OUTSIDE RECORDS SUMMARY | 2025-02-11 16:45 | XMS_ITS | Encounter Summary ---
Author Organization [facility] - [facility] Address [address] [place] [address] Care Team Providers Care Hvac Design Mechanical Engineer Name Role Phone Dasha Conway [facility] Primary Care Provider +1- [phone] Encounter Details Date Type Department Care Team (Latest Contact Info) Description 10/26/2021 Quettrat Message Enc [facility] Medical Group Multispecialty Care - [place] [address] [address] [place] [address] [place] [address] [place] [address] [address] [place] [address] Medication question Social History Tobacco Use Types Packs/Day Years [...] Sex Assigned at Female 01/08/2021 9:43 AM SELF CONTAINED BEHAVIOR UNIT TEACHER Legal Sex Female 5:13 PM CDT Gender Identity Female 01/08/2021 9:43 AM SELF CONTAINED BEHAVIOR UNIT TEACHER Sexual Orientation Straight 01/08/2021 9: 43 AM SELF CONTAINED BEHAVIOR UNIT TEACHER COVID-19 Exposure Response Date Recorded In the last month, have you been in contact with someone who was confirmed or suspected to have Coronavirus / COVID-19? No / Unsure 10/22/2021 9:17 AM SELF CONTAINED BEHAVIOR UNIT TEACHER documented as of this encounter Plan of Treatment Not on file documented as of this encounter Visit Diagnoses Not on filedocumented in this encounter Additional Health Concerns Infection Onset Date Last Indicated Resolved Time 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 06/30/2017 COVID-19 Rule Out 01/15/2022 01/15/2022 01/20/2022 10:53 AM SELF CONTAINED BEHAVIOR UNIT TEACHER COVID-19 Rule Out 04/21/2022 04/21/2022 04/21/2022 11:42 AM CDT COVID-19 Rule Out 04/21/2022 04/21/2022 04/26/2022 7:02 AM CDT COVID-19 Rule Out 10/06/2022 10/06/2022 10/06/2022 1:21 PM SELF CONTAINED BEHAVIOR UNIT TEACHER COVID-19 Rule Out 10/06/2022 10/06/2022 10/07/2022 3:34 PM SELF CONTAINED BEHAVIOR UNIT TEACHER COVID-19 Rule Out 09/14/2023 09/14/2023 09/14/2023 3:48 PM CDT COVID-19 Rule Out 11/02/2024 11/02/2024 11/02/2024 4:03 PM SELF CONTAINED BEHAVIOR UNIT TEACHER Assessment Noted Time PHQ-9 Depression Total Score: 021 9:18 AM CDT documented as of this encounter Care Teams Hvac Design Mechanical Engineer Relationship Specialty Start Date End Date Dasha Conway FNP- [address] [place] [address] PCP - General 11/02/24 documented as of this encounter
--- OUTSIDE RECORDS SUMMARY | 2025-02-11 16:45 | XMS_ITS | Encounter Summary ---
Author Organization [facility] Address [address] [place] [address] Care Team Providers Care Market Research Worker Name Role Phone Dasha Conway [facility] Primary Care Provider +1- [phone] Encounter Details Date Type Department Care Team (Late st Contact Info) Description 05/17/2022 Lasso Mediahart Message Enc [facility] Medical [facility] Multispecialty Care - [place] [address] [address] [place] [address] [place] [address] [place] [address] [address] [place] [address] B12 injections Social History Tobacco Use Types Packs/Day Years [...] 3, please move on to questions 3-9 0 05/12/2022 Comments No Sex and Gender Information Value Date Recorded Sex Assigned at Female 01/08/2021 9:43 AM SENIOR SOFTWARE QUALITY ANALYST Legal Sex Female 5:13 PM CDT Gender Identity Female 01/08/2021 9:43 AM SENIOR SOFTWARE QUALITY ANALYST Sexual Orientation Straight 01/08/2021 9: 43 AM SENIOR SOFTWARE QUALITY ANALYST COVID-19 Exposure Response Date Recorded In the last 10 days, have yo michael been in contact with someone who was confirmed or suspected to have Coronavirus/COVID-19? No / Unsure 05/17/2022 8:13 AM CDT documented as of this encounter Functional Status * RETIRED Are you deaf or do you have serious difficulty hearing Answer Date of Assessment Author Status No 01/29/2022 10:15 PM SENIOR SOFTWARE QUALITY ANALYST Acti ve * RETIRED Are you blind or do you have serious difficulty seeing, even when wearing glasses? Answer Date of Assessment Author Status No 01/29/2022 10:15 PM SENIOR SOFTWARE QUALITY ANALYST Acti ve * Do you have serious [...] Time 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 06/30/2017 COVID-19 Rule Out 10/06/2022 10/06/2022 10/06/2022 1:21 PM SENIOR SOFTWARE QUALITY ANALYST COVID-19 Rule Out 10/06/2022 10/06/2022 10/07/2022 3:34 PM SENIOR SOFTWARE QUALITY ANALYST COVID-19 Rule Out 09/14/2023 09/14/2023 09/14/2023 3:48 PM CDT COVID-19 Rule Out 11/02/2024 11/02/2024 11/02/2024 4:03 PM SENIOR SOFTWARE QUALITY ANALYST Assessment Noted Time PHQ-9 Depression Total Score: 4 05/12/20 3:34 PM CDT documented as of this encounter Care Teams Market Research Worker Relationship Specialty Start Date End Date Dasha Conway FNP-STEPH [address] [place], [place] [id number] PCP - General 11/02/24 documented as of this encounter
--- OUTSIDE RECORDS SUMMARY | 2025-02-11 16:45 | XMS_ITS | Encounter Summary ---
Author Organization [facility] Address [address] [place] [address] Care Team Providers Care Vessel Welder Name Role Phone Dasha Conway [facility] Primary Care Provider +1- [phone] Encounter Details Date Type Department Care Team (Late st Contact Info) Description 12/30/2021 Celestial Semiconductorhart Message Enc [facility] Multispecialty Care - [place] [address] [address] [address] [place] [address] [place] [address] [place] [address] [address] [place] [address] Test results Social History Tobacco Use Types Packs/Day [...] Sex Assigned at Female 01/08/2021 9:43 AM SOFTWARE REVERSE ENGINEER Legal Sex Female 5:13 PM CDT Gender Identity Female 01/08/2021 9:43 AM SOFTWARE REVERSE ENGINEER Sexual Orientation Straight 01/08/2021 9: 43 AM SOFTWARE REVERSE ENGINEER COVID-19 Exposure Response Date Recorded In the last 10 days, have asif rodriguez been in contact with someone who was confirmed or suspected to have Coronavirus/COVID-19? No / Unsure 12/29/2021 10:09 PM SOFTWARE REVERSE ENGINEER documented as of this encounter Plan of Treatment Not on file documented as of this encounter Visit Diagnoses Not on filedocumented in this encounter Additional Health Concerns Infection Onset Date Last Indicated Resolved Time 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 06/30/2017 COVID-19 Rule Out 01/15/2022 01/15/2022 01/20/2022 10:53 AM SOFTWARE REVERSE ENGINEER COVID-19 Rule Out 04/21/2022 04/21/2022 04/21/2022 11:42 AM CDT COVID-19 Rule Out 04/21/2022 04/21/2022 04/26/2022 7:02 AM CDT COVID-19 Rule Out 10/06/2022 10/06/2022 10/06/2022 1:21 PM SOFTWARE REVERSE ENGINEER COVID-19 Rule Out 10/06/2022 10/06/2022 10/07/2022 3:34 PM SOFTWARE REVERSE ENGINEER COVID-19 Rule Out 09/14/2023 09/14/2023 09/14/2023 3:48 PM CDT COVID-19 Rule Out 11/02/2024 11/02/2024 11/02/2024 4:03 PM SOFTWARE REVERSE ENGINEER Assessment Noted Time PHQ-9 Depression Total Score: 15 021 11:10 AM SOFTWARE REVERSE ENGINEER documented as of this encounter Care Teams Vessel Welder Relationship Specialty Start Date End Date Dasha Conway FNP-STEPH [address] [place] [address] PCP - General 11/02/24 documented as of this encounter
--- OUTSIDE RECORDS SUMMARY | 2025-02-11 16:45 | XMS_ITS | Encounter Summary ---
Author Organization [facility] Address [address] [place] [address] Care Team Providers Care Continuous Mining Machine Coal Miner Name Role Phone Dasha Conway [facility] Primary Care Provider +1- [phone] Encounter Details Date Type Department Care Team (Latest Contact Info) Description 02/02/2022 Flex Biomedicalt Message Enc [facility] Medical Group Multispecialty Care - [place] [address] [address] [address] [place] [address] [place] [address] [place] [address] [address] [place] [address] follow up appointment Social History Tobacco Use Types Packs/Day Years [...] Sex Assigned at Female 01/08/2021 9:43 AM INSTRUCTIONAL SYSTEMS DESIGN CONSULTANT Legal Sex Female 5:13 PM CDT Gender Identity Female 01/08/2021 9:43 AM INSTRUCTIONAL SYSTEMS DESIGN CONSULTANT Sexual Orientation Straight 01/08/2021 9: 43 AM INSTRUCTIONAL SYSTEMS DESIGN CONSULTANT COVID-19 Exposure Response Date Recorded In the last 10 days, have asif rodriguez been in contact with someone who was confirmed or suspected to have Coronavirus/COVID-19? No / Unsure 02/02/2022 10:59 AM CDT documented as of this encounter Functional Status * RETIRED Are you deaf or do you have serious difficulty hearing Answer Date of Assessment Author Status No 01/29/2022 10:15 PM INSTRUCTIONAL SYSTEMS DESIGN CONSULTANT Acti ve * RETIRED Are you blind or do you have serious difficulty seeing, even when wearing glasses? Answer Date of Assessment Author Status No 01/29/2022 10:15 PM INSTRUCTIONAL SYSTEMS DESIGN CONSULTANT Acti ve * Do you have serious [...] Rule Out 10/06/2022 10/06/2022 10/06/2022 1:21 PM INSTRUCTIONAL SYSTEMS DESIGN CONSULTANT COVID-19 Rule Out 10/06/2022 10/06/2022 10/07/2022 3:34 PM INSTRUCTIONAL SYSTEMS DESIGN CONSULTANT COVID-19 Rule Out 09/14/2023 09/14/2023 09/14/2023 3:48 PM CDT COVID-19 Rule Out 11/02/2024 11/02/2024 11/02/2024 4:03 PM INSTRUCTIONAL SYSTEMS DESIGN CONSULTANT Assessment Noted Time PHQ-9 Depression Total Score: 15 021 11:10 AM INSTRUCTIONAL SYSTEMS DESIGN CONSULTANT documented as of this encounter Care Teams Continuous Mining Machine Coal Miner Relationship Specialty Start Date End Date Dasha Conway, VICE PRESIDENT RESEARCH- [address] [place] [address] PCP - General 11/02/24 documented as of this encounter
--- OUTSIDE RECORDS SUMMARY | 2025-02-11 16:45 | XMS_ITS | Encounter Summary ---
Author Organization [facility] Address [address] [place] [address] Care Team Providers Care Tank Systems Maintainer Name Role Phone Dasha Conway [facility] Primary Care Provider +1- [phone] Encounter Details Date Type Department Care Team (Late st Contact Info) Description 01/27/2022 Open Kernel Labshart Message Enc [facility] Medical Group Multispecialty Care - [place] [address] [address] [place] [address] [place] [address] [place] [address] [address] [place] [address] Vertigo Social History Tobacco Use Types Packs/Day Years [...] Sex Assigned at Female 01/08/2021 9:43 AM SHIPPING AND RECEIVING MATERIAL HANDLER Legal Sex Female 5:13 PM CDT Gender Identity Female 01/08/2021 9:43 AM SHIPPING AND RECEIVING MATERIAL HANDLER Sexual Orientation Straight 01/08/2021 9: 43 AM SHIPPING AND RECEIVING MATERIAL HANDLER COVID-19 Exposure Response Date Recorded In the last 10 days, have asif rodriguez been in contact with someone who was confirmed or suspected to have Coronavirus/COVID-19? No / Unsure 01/30/2022 4:08 PM SHIPPING AND RECEIVING MATERIAL HANDLER documented as of this encounter Functional Status documented as of this encounter Mental Status * Question Answer Entry Date Author Status Because of a physical, mental, or emotional condition, do you have serious difficulty concentrating, remembering, or making decisions? No 01/29/2022 10:15 PM SHIPPING AND RECEIVING MATERIAL HANDLER Nanette Leonard RN Active documented in this encounter Plan [...] Rule Out 10/06/2022 10/06/2022 10/06/2022 1:21 PM SHIPPING AND RECEIVING MATERIAL HANDLER COVID-19 Rule Out 10/06/2022 10/06/2022 10/07/2022 3:34 PM SHIPPING AND RECEIVING MATERIAL HANDLER COVID-19 Rule Out 09/14/2023 09/14/2023 09/14/2023 3:48 PM CDT COVID-19 Rule Out 11/02/2024 11/02/2024 11/02/2024 4:03 PM SHIPPING AND RECEIVING MATERIAL HANDLER Assessment Noted Time PHQ-9 Depression Total Score: 15 021 11:10 AM SHIPPING AND RECEIVING MATERIAL HANDLER documented as of this encounter Care Teams Tank Systems Maintainer Relationship Specialty Start Date End Date Dasha Conway, INSPECTOR FINAL ASSEMBLY ELECTRICAL- [address] [place] [address] PCP - General 11/02/24 documented as of this encounter
--- OUTSIDE RECORDS SUMMARY | 2025-02-11 16:45 | XMS_ITS | Encounter Summary ---
Author Organization [facility] Address [address] [place] [address] Care Team Providers Care Rover Tender Name Role Phone Dasha Conway [facility] Primary Care Provider +1- [phone] Encounter Details Date Type Department Care Team (Late st Contact Info) Description 08/14/2021 Zipwhiphart Message Enc [facility] Medical Group Multispecialty Care - [place] [address] [address] [place] [address] [place] [address] [place] [address] [address] [place] [address] A1C results Social History Tobacco Use Types Packs/Day [...] Sex Assigned at Female 01/08/2021 9:43 AM BRIDGE EXPERT Legal Sex Female 5:13 PM CDT Gender Identity Female 01/08/2021 9:43 AM BRIDGE EXPERT Sexual Orientation Straight 01/08/2021 9: 43 AM BRIDGE EXPERT COVID-19 Exposure Response Date Recorded In the [...] Rule Out 10/23/2021 10/23/2021 10/23/2021 9:25 AM BRIDGE EXPERT COVID-19 Rule Out 10/23/2021 10/23/2021 10/24/2021 12:21 AM BRIDGE EXPERT COVID-19 Rule Out 01/15/2022 01/15/2022 01/20/2022 10:53 AM BRIDGE EXPERT COVID-19 Rule Out 04/21/2022 04/21/2022 04/21/2022 11:42 AM CDT COVID-19 Rule Out 04/21/2022 04/21/2022 04/26/2022 7:02 AM CDT COVID-19 Rule Out 10/06/2022 10/06/2022 10/06/2022 1:21 PM BRIDGE EXPERT COVID-19 Rule Out 10/06/2022 10/06/2022 10/07/2022 3:34 PM BRIDGE EXPERT COVID-19 Rule Out 09/14/2023 09/14/2023 09/14/2023 3:48 PM CDT COVID-19 Rule Out 11/02/2024 11/02/2024 11/02/2024 4:03 PM BRIDGE EXPERT Assessment Noted Time PHQ-9 Depression Total Score: 22 05 021 9:18 AM CDT documented as of this encounter Care Teams Rover Tender Relationship Specialty Start Date End Date Dasha Conway FNP-STEPH [address] [place] [address] PCP - General 11/02/24 documented as of this encounter
--- OUTSIDE RECORDS SUMMARY | 2025-02-11 16:45 | XMS_ITS | Encounter Summary ---
Author Organization [facility] Address [address] [place] [address] Care Team Providers Care Service Dismantler Name Role Phone Dasha Conway [facility] Primary Care Provider +1- [phone] Encounter Details Date Type Department Care Team (Late st Contact Info) Description 11/24/2021 LineRate Systemshart Message Enc [facility] Medical Group Multispecialty Care - [place] [address] [address] [place] [address] [place] [address] [place] [address] [address] [place] [address] PFT and Covid Social History Tobacco Use Types Packs/Day Years [...] Sex Assigned at Female 01/08/2021 9:43 AM WASHER ASSEMBLER Legal Sex Female 5:13 PM CDT Gender Identity Female 01/08/2021 9:43 AM WASHER ASSEMBLER Sexual Orientation Straight 01/08/2021 9: 43 AM WASHER ASSEMBLER COVID-19 Exposure Response Date Recorded In the last month, have you been in contact with someone who was confirmed or suspected to have Coronavirus / COVID-19? No / Unsure 11/27/2021 11:33 AM WASHER ASSEMBLER documented as of this encounter Plan of Treatment Not on file documented as of this encounter Visit Diagnoses Not on filedocumented in this encounter Additional Health Concerns Infection Onset Date Last Indicated Resolved Time 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 06/30/2017 COVID-19 Rule Out 01/15/2022 01/15/2022 01/20/2022 10:53 AM WASHER ASSEMBLER COVID-19 Rule Out 04/21/2022 04/21/2022 04/21/2022 11:42 AM CDT COVID-19 Rule Out 04/21/2022 04/21/2022 04/26/2022 7:02 AM CDT COVID-19 Rule Out 10/06/2022 10/06/2022 10/06/2022 1:21 PM WASHER ASSEMBLER COVID-19 Rule Out 10/06/2022 10/06/2022 10/07/2022 3:34 PM WASHER ASSEMBLER COVID-19 Rule Out 09/14/2023 09/14/2023 09/14/2023 3:48 PM CDT COVID-19 Rule Out 11/02/2024 11/02/2024 11/02/2024 4:03 PM WASHER ASSEMBLER Assessment Noted Time PHQ-9 Depression Total Score: 15 021 11:10 AM WASHER ASSEMBLER documented as of this encounter Care Teams Service Dismantler Relationship Specialty Start Date End Date Dasha Conway FNP-STEPH [address] [place] [address] PCP - General 11/02/24 documented as of this encounter
--- OUTSIDE RECORDS SUMMARY | 2025-02-11 16:45 | XMS_ITS | Data Portability ---
Author Organization [facility] Address [address] [place] [address] Assessment No assessment recorded. Plan of Treatment Reminders Order Date Submit Date Provider Last Modified By Organization Details Last Modified Time Details Appointments None recorded. Lab None recorded. Referral None recorded. Procedures None recorded. Surgeries None recorded. Imaging None recorded. Medication Orders triamcinol one acetonide 0.1 % topical cream 2016 017 INTERFACE [place] [id number] 011, [address], [id number], 7 17:48:38 Kenalog 40 mg/mL suspension for injection 2016 017 [email or web address] [facility]-00 011, [address] , [address], [id number], 7 11:38:55 Patient TargetsNo targets recorded. Patient InstructionsNo instructions recorded. Reason for Referral None Reported. Results Created Date Observation Date Name Description Value Unit Range Abnormal Flag Note LastModifiedBy Organization Detail LastModifiedTime 03/05/20 21 ECG 12-le ad [facility] [place] [address] [facility] [place] [address] [facility] Test Date: 03-04 Pat Name: DIVINA CHAHAL WILLIAMS Depart ment: Shelley palma ID: [id number] Room: [place] [address] Gender : Female Techni dixie: : 03-17 Reques jose By: FELY BARRON Order Number : [id number] Bernard coleman MD: Alejan wesley Alvara do Measur ements Interv als Kennard Rate: 72 P: 51 RI: 166 QRS: 36 QRSD: 88 T: 18 QT: 397 QTc: 436 Interp retive Statem ents SINUS RHYTHM NONSPE CIFIC T-WAVE ABNORM ALITY Compar ed to ECG 2020 14:47: 30 No signif icant change s Electr onical ly signed by Yevgeniy Mckinney do at 4-15-2 021 7:17:0 2 CDT [facility] (Imaging & Mammogram) [facility] [place], [address], 03/05/2021 18:12:51 Result Notes None recorded. Procedures Surgical History None recorded. Imaging Results Imaging Date Name Status LastModified by Organiz ation Details LastModified Time 03/05/2021 ECG 12-lead completed [facility] (Imaging & Mammogram) [facility] [place], [address], 03/05/2021 18:12:51 Procedure Notes None recorded. Medical Equipment None Reported. Medications Name Sig Start Date Stop Date Status Note LastModified by Organization Details LastModified Time triamcinolone acetonide 0.1 % topical cream APPLY A THIN LAYER TO THE AFFECTED AREA(S) BY TOPICAL ROUTE 2 TIMES PER DAY 2016 active Not Available Not Available Not Avai lable Kenalog 40 mg/mL suspension for injection Take 40 mg by injection route. 2016 active Alcides eller Erlin Not Available Not Available Not Available Vitals None Recorded Social History None recorded. Functional Status None recorded. Mental Status None recorded. Family History Nothing Reported. Medical History No medical history recorded. Gynecological HistoryNo gynecological history recorded. Obstetrics History GPAL:G 0 P 0 0 0 0 Past Encounters Encounter ID Performer Location Encounter Start Date Encounter Closed Date Diagnosis/Indication Diagnosis SNOMED-CT Code Diagnosis ICD10 Code Diagnosis Note [id number] Toya Moreno [facility] [address] [place] [address] 06/24/2017 17:10:28 06/28/2017 12:30:00 Complaining of a rash [id number] R21 kenalog given per ma per vo. prednisone from ED rx to be used as well for rash beginning tomorrow. Health Concerns Section Related Observation LastModified by Organization Detai ls LastModified Time None Recorded Concern Status LastModified by Organization Details LastModified Time None Recorded Advance Directives Directive None Recorded Payers Encounter Date Sequence Insurance Name Policy Number Policy Artis Covered Member ID Artis Member ID Guarantor Name 06/24/2017 1 [facility] (MEDICARE REPLACEMENT/A DVANTAGE - PPO) [id number] Divian Bueno [id number] Divina Bueno 06/24/2017 2 [place] [facility] PUBLIC AID Divina Bueno [id number] Divina Bueno Notes Date Note Type Note Provider Name and Address Organization Details Recorded Time 06/24/2017 text/html Pt presents to clinic with c/o pruritic rash to chest and BUE that began earlier today. She reports recently being seen in the ED for PNA. She states blood was drawn, an IV was initiated and injected NS into her IV. She states no medications or IV fluids were administered, nor has she taken any of her prescription medications; as she did not have them filled as of yet. She denies nausea, vomiting, fever, chills, diarrhea, constipation and dysuria. She also denies CP, angioedema, SOB, and STEINER. Toya Moreno [facility] 06/24/2017 20:46:11 OBGyn Episode No OBEpisode recorded.
--- OUTSIDE RECORDS SUMMARY | 2025-02-11 16:45 | XMS_ITS | Encounter Summary ---
Author Organization [facility] Address [address] [place] [address] Care Team Providers Care Wool Grader Name Role Phone Dasha Conway [facility] Primary Care Provider +1- [phone] Encounter Details Date Type Department Care Team (Late st Contact Info) Description 05/17/2022 MyChart Message Enc [facility] Medical Group Multispecialty Care - [place] [address] [address] [place] [address] [place] [address] [place] [address] [address] [place] [address] Today's visit Social History Tobacco Use Types Packs/Day Years [...] Sex Assigned at Female 01/08/2021 9:43 AM EMBROIDERY ASSISTANT Legal Sex Female 5:13 PM CDT Gender Identity Female 01/08/2021 9:43 AM EMBROIDERY ASSISTANT Sexual Orientation Straight 01/08/2021 9: 43 AM EMBROIDERY ASSISTANT COVID-19 Exposure Response Date Recorded In the last 10 days, have asif rodriguez been in contact with someone who was confirmed or suspected to have Coronavirus/COVID-19? No / Unsure 05/17/2022 8:13 AM CDT documented as of this encounter Functional Status * RETIRED Are you deaf or do you have serious difficulty hearing Answer Date of Assessment Author Status No 01/29/2022 10:15 PM EMBROIDERY ASSISTANT Acti ve * RETIRED Are you blind or do you have serious difficulty seeing, even when wearing glasses? Answer Date of Assessment Author Status No 01/29/2022 10:15 PM EMBROIDERY ASSISTANT Acti ve * Do you have serious [...] Rule Out 10/06/2022 10/06/2022 10/06/2022 1:21 PM EMBROIDERY ASSISTANT COVID-19 Rule Out 10/06/2022 10/06/2022 10/07/2022 3:34 PM EMBROIDERY ASSISTANT COVID-19 Rule Out 09/14/2023 09/14/2023 09/14/2023 3:48 PM CDT COVID-19 Rule Out 11/02/2024 11/02/2024 11/02/2024 4:03 PM EMBROIDERY ASSISTANT Assessment Noted Time PHQ-9 Depression Total Score: 4 05/12/20 3:34 PM CDT documented as of this encounter Care Teams Wool Grader Relationship Specialty Start Date End Date Dasha Conway FNP-BC [address] [place] [address] PCP - General 11/02/24 documented as of this encounter
--- OUTSIDE RECORDS SUMMARY | 2025-02-11 16:45 | XMS_ITS | Encounter Summary ---
Author Organization [facility] Address [address] [place] [address] Care Team Providers Care Change Person Name Role Phone Dasha Conway [facility] Primary Care Provider +1- [phone] Encounter Details Date Type Department Care Team (Latest Contact Info) Description 05/07/2021 Meditech Message Enc [facility] Medical Group Multispecialty Care - [address] [place] [address] [employer], [facility] Provider surgical clearance Social History Tobacco Use Types Packs/Day Years [...] Sex Assigned at Female 01/08/2021 9:43 AM TEST CENTER ADMINISTRATOR Legal Sex Female 5:13 PM CDT Gender Identity Female 01/08/2021 9:43 AM TEST CENTER ADMINISTRATOR Sexual Orientation Straight 01/08/2021 9: 43 AM TEST CENTER ADMINISTRATOR COVID-19 Exposure Response Date Recorded In the [...] Rule Out 10/23/2021 10/23/2021 10/23/2021 9:25 AM TEST CENTER ADMINISTRATOR COVID-19 Rule Out 10/23/2021 10/23/2021 10/24/2021 12:21 AM TEST CENTER ADMINISTRATOR COVID-19 Rule Out 01/15/2022 01/15/2022 01/20/2022 10:53 AM TEST CENTER ADMINISTRATOR COVID-19 Rule Out 04/21/2022 04/21/2022 04/21/2022 11:42 AM CDT COVID-19 Rule Out 04/21/2022 04/21/2022 04/26/2022 7:02 AM CDT COVID-19 Rule Out 10/06/2022 10/06/2022 10/06/2022 1:21 PM TEST CENTER ADMINISTRATOR COVID-19 Rule Out 10/06/2022 10/06/2022 10/07/2022 3:34 PM TEST CENTER ADMINISTRATOR COVID-19 Rule Out 09/14/2023 09/14/2023 09/14/2023 3:48 PM CDT COVID-19 Rule Out 11/02/2024 11/02/2024 11/02/2024 4:03 PM TEST CENTER ADMINISTRATOR Assessment Noted Time PHQ-9 Depression Total Score: 22 021 9:18 AM CDT documented as of this encounter Care Teams Change Person Relationship Specialty Start Date End Date Dasha Conway, FLORAL MERCHANDISER- [address] [place] [address] PCP - General 11/02/24 documented as of this encounter
--- OUTSIDE RECORDS SUMMARY | 2025-02-11 16:45 | XMS_ITS | Encounter Summary ---
Author Organization [facility] - [facility] Address [address] [place] [address] Care Team Providers Care Student Counsellor Name Role Phone Dasha Conway [facility] Primary Care Provider +1- [phone] Encounter Details Date Type Department Care Team (Late st Contact Info) Description 10/29/2021 Ranch Networkshart Message Enc [facility] Medical Group Multispecialty Care - [place] [address] [address] [address] [place] [address] [place] [address] [place] [address] [address] [place] [address] Blood sugar Social History Tobacco Use Types Packs/Day Years [...] Sex Assigned at Female 01/08/2021 9:43 AM EQUAL OPPORTUNITY REPRESENTATIVE Legal Sex Female 5:13 PM CDT Gender Identity Female 01/08/2021 9:43 AM EQUAL OPPORTUNITY REPRESENTATIVE Sexual Orientation Straight 01/08/2021 9: 43 AM EQUAL OPPORTUNITY REPRESENTATIVE COVID-19 Exposure Response Date Recorded In the last month, have you been in contact with someone who was confirmed or suspected to have Coronavirus / COVID-19? No / Unsure 10/22/2021 9:17 AM EQUAL OPPORTUNITY REPRESENTATIVE documented as of this encounter Plan of Treatment Not on file documented as of this encounter Visit Diagnoses Not on filedocumented in this encounter Additional Health Concerns Infection Onset Date Last Indicated Resolved Time 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 06/30/2017 COVID-19 Rule Out 01/15/2022 01/15/2022 01/20/2022 10:53 AM EQUAL OPPORTUNITY REPRESENTATIVE COVID-19 Rule Out 04/21/2022 04/21/2022 04/21/2022 11:42 AM CDT COVID-19 Rule Out 04/21/2022 04/21/2022 04/26/2022 7:02 AM CDT COVID-19 Rule Out 10/06/2022 10/06/2022 10/06/2022 1:21 PM EQUAL OPPORTUNITY REPRESENTATIVE COVID-19 Rule Out 10/06/2022 10/06/2022 10/07/2022 3:34 PM EQUAL OPPORTUNITY REPRESENTATIVE COVID-19 Rule Out 09/14/2023 09/14/2023 09/14/2023 3:48 PM CDT COVID-19 Rule Out 11/02/2024 11/02/2024 11/02/2024 4:03 PM EQUAL OPPORTUNITY REPRESENTATIVE Assessment Noted Time PHQ-9 Depression Total Score: 22 021 9:18 AM CDT documented as of this encounter Care Teams Student Counsellor Relationship Specialty Start Date End Date Dasha Conway FNP- [address] [place] [address] PCP - General 11/02/24 documented as of this encounter
--- OUTSIDE RECORDS SUMMARY | 2025-02-11 16:45 | XMS_ITS | Encounter Summary ---
Author Organization [facility] - [facility] Address [address] [place] [address] Care Team Providers Care Insurance Salesperson Name Role Phone Dasha Conway [facility] Primary Care Provider +1- [phone] Encounter Details Date Type Department Care Team (Late st Contact Info) Description 02/09/2022 Ovalishart Message Enc [facility] Medical Group Multispecialty Care - [place] [address] [address] [address] [place] [address] [place] [address] [place] [address] [address] [place] [address] Uti Social History Tobacco Use Types Packs/Day Years [...] Sex Assigned at Female 01/08/2021 9:43 AM PSYCHOLOGIST MILITARY PERSONNEL Legal Sex Female 5:13 PM CDT Gender Identity Female 01/08/2021 9:43 AM PSYCHOLOGIST MILITARY PERSONNEL Sexual Orientation Straight 01/08/2021 9: 43 AM PSYCHOLOGIST MILITARY PERSONNEL COVID-19 Exposure Response Date Recorded In the last 10 days, have asif rodriguez been in contact with someone who was confirmed or suspected to have Coronavirus/COVID-19? No / Unsure 02/10/2022 10:06 AM CDT documented as of this encounter Functional Status * RETIRED Are you deaf or do you have serious difficulty hearing Answer Date of Assessment Author Status No 01/29/2022 10:15 PM PSYCHOLOGIST MILITARY PERSONNEL Acti ve * RETIRED Are you blind or do you have serious difficulty seeing, even when wearing glasses? Answer Date of Assessment Author Status No 01/29/2022 10:15 PM PSYCHOLOGIST MILITARY PERSONNEL Acti ve * Do you have serious [...] Rule Out 10/06/2022 10/06/2022 10/06/2022 1:21 PM PSYCHOLOGIST MILITARY PERSONNEL COVID-19 Rule Out 10/06/2022 10/06/2022 10/07/2022 3:34 PM PSYCHOLOGIST MILITARY PERSONNEL COVID-19 Rule Out 09/14/2023 09/14/2023 09/14/2023 3:48 PM CDT COVID-19 Rule Out 11/02/2024 11/02/2024 11/02/2024 4:03 PM PSYCHOLOGIST MILITARY PERSONNEL Assessment Noted Time PHQ-9 Depression Total Score: 15 021 11:10 AM PSYCHOLOGIST MILITARY PERSONNEL documented as of this encounter Care Teams Insurance Salesperson Relationship Specialty Start Date End Date Dasha Conway, ACADEMIC INTERN- [address] [place] [address] PCP - General 11/02/24 documented as of this encounter
--- OUTSIDE RECORDS SUMMARY | 2025-02-11 16:45 | XMS_ITS | Encounter Summary ---
Author Organization [facility] - [facility] Address [address] [place] [address] Care Team Providers Care Document Preparation Specialist Name Role Phone Dasha Conway [facility] Primary Care Provider +1- [phone] Encounter Details Date Type Department Care Team (Latest Contact Info) Description 01/01/2022 Akonni Biosystemshart Message Enc [facility] Medical Group Multispecialty Care - [place] [address] [address] [address] [place] [address] [place] [address] [place] [address] 157 [place] [address] Normal lymph nodes Social History Tobacco Use Types Packs/Day Years [...] Sex Assigned at Female 01/08/2021 9:43 AM DIE PRESSER Legal Sex Female 5:13 PM CDT Gender Identity Female 01/08/2021 9:43 AM DIE PRESSER Sexual Orientation Straight 01/08/2021 9: 43 AM DIE PRESSER COVID-19 Exposure Response Date Recorded In the last 10 days, have asif rodriguez been in contact with someone who was confirmed or suspected to have Coronavirus/COVID-19? No / Unsure 12/29/2021 10:09 PM DIE PRESSER documented as of this encounter Plan of Treatment Not on file documented as of this encounter Visit Diagnoses Not on filedocumented in this encounter Additional Health Concerns Infection Onset Date Last Indicated Resolved Time 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 06/30/2017 COVID-19 Rule Out 01/15/2022 01/15/2022 01/20/2022 10:53 AM DIE PRESSER COVID-19 Rule Out 04/21/2022 04/21/2022 04/21/2022 11:42 AM CDT COVID-19 Rule Out 04/21/2022 04/21/2022 04/26/2022 7:02 AM CDT COVID-19 Rule Out 10/06/2022 10/06/2022 10/06/2022 1:21 PM DIE PRESSER COVID-19 Rule Out 10/06/2022 10/06/2022 10/07/2022 3:34 PM DIE PRESSER COVID-19 Rule Out 09/14/2023 09/14/2023 09/14/2023 3:48 PM CDT COVID-19 Rule Out 11/02/2024 11/02/2024 11/02/2024 4:03 PM DIE PRESSER Assessment Noted Time PHQ-9 Depression Total Score: 15 021 11:10 AM DIE PRESSER documented as of this encounter Care Teams Document Preparation Specialist Relationship Specialty Start Date End Date Dasha Conway FNP-STEPH [address] [place] [address] PCP - General 11/02/24 documented as of this encounter
--- OUTSIDE RECORDS SUMMARY | 2025-02-11 16:45 | XMS_ITS | Encounter Summary ---
Author Organization [facility] - [facility] Address [address] [place] [address] Care Team Providers Care Dietitian Teaching Name Role Phone Dasha Conway [facility] Primary Care Provider +1- [phone] Encounter Details Date Type Department Care Team (Late st Contact Info) Description 05/26/2022 FriendFitt Message Enc [facility] Medical Group Multispecialty Care - [place] [address] [address] [address] [place] [address] [place] [address] [place] [address] [address] [place] [address] Fluconazole Social History Tobacco Use Types Packs/Day Years [...] Assigned at Female 01/08/2021 9:43 AM SHIPPING MANAGER Legal Sex Female 5:13 PM CDT Gender Identity Female 01/08/2021 9:43 AM SHIPPING MANAGER Sexual Orientation Straight 01/08/2021 9: 43 AM SHIPPING MANAGER COVID-19 Exposure Response Date Recorded In the last 10 days, have asif rodriguez been in contact with someone who was confirmed or suspected to have Coronavirus/COVID-19? No / Unsure 05/17/2022 8:13 AM CDT documented as of this encounter Functional Status * RETIRED Are you deaf or do you have serious difficulty hearing Answer Date of Assessment Author Status No 01/29/2022 10:15 PM SHIPPING MANAGER Acti ve * RETIRED Are you blind or do you have serious difficulty seeing, even when wearing glasses? Answer Date of Assessment Author Status No 01/29/2022 10:15 PM SHIPPING MANAGER Acti ve * Do you have serious [...] Out 10/06/2022 10/06/2022 10/06/2022 1:21 PM SHIPPING MANAGER COVID-19 Rule Out 10/06/2022 10/06/2022 10/07/2022 3:34 PM SHIPPING MANAGER COVID-19 Rule Out 09/14/2023 09/14/2023 09/14/2023 3:48 PM CDT COVID-19 Rule Out 11/02/2024 11/02/2024 11/02/2024 4:03 PM SHIPPING MANAGER Assessment Noted Time PHQ-9 Depression Total Score: 4 05/12/20 3:34 PM CDT documented as of this encounter Care Teams Dietitian Teaching Relationship Specialty Start Date End Date Dasha Conway FNP-STEPH [address] [place], [place] [id number] PCP - General 11/02/24 documented as of this encounter
--- OUTSIDE RECORDS SUMMARY | 2025-02-11 16:45 | XMS_ITS | Encounter Summary ---
Author Organization [facility] - [facility] Address [address] [place] [address] Care Team Providers Care Candle Molder Hand Name Role Phone Dasha Conway [facility] Primary Care Provider +1- [phone] Encounter Details Date Type Department Care Team (Late st Contact Info) Description 01/28/2022 [employer]hart Message Enc [facility] Medical Group Multispecialty Care - [place] [address] [address] [address] [place] [address] [place] [address] [place] [address] [address] [place] [address] New antibiotic Social History Tobacco Use Types Packs/Day Years [...] Sex Assigned at Female 01/08/2021 9:43 AM GED TUTOR Legal Sex Female 5:13 PM CDT Gender Identity Female 01/08/2021 9:43 AM GED TUTOR Sexual Orientation Straight 01/08/2021 9: 43 AM GED TUTOR COVID-19 Exposure Response Date Recorded In the last 10 days, have asif rodriguez been in contact with someone who was confirmed or suspected to have Coronavirus/COVID-19? No / Unsure 01/31/2022 8:53 PM CDT documented as of this encounter Functional Status documented as of this encounter Mental Status * Question Answer Entry Date Author Status Because of a physical, mental, or emotional condition, do you have serious difficulty concentrating, remembering, or making decisions? No 01/29/2022 10:15 PM GED TUTOR Nanette Leonard RN Active documented in this [...] Rule Out 10/06/2022 10/06/2022 10/06/2022 1:21 PM GED TUTOR COVID-19 Rule Out 10/06/2022 10/06/2022 10/07/2022 3:34 PM GED TUTOR COVID-19 Rule Out 09/14/2023 09/14/2023 09/14/2023 3:48 PM CDT COVID-19 Rule Out 11/02/2024 11/02/2024 11/02/2024 4:03 PM GED TUTOR Assessment Noted Time PHQ-9 Depression Total Score: 15 021 11:10 AM GED TUTOR documented as of this encounter Care Teams Candle Molder Hand Relationship Specialty Start Date End Date Dasha Conway, NURSE INTERN-STEPH [address] [place] [address] PCP - General 11/02/24 documented as of this encounter
--- OUTSIDE RECORDS SUMMARY | 2025-02-11 16:45 | XMS_ITS | Encounter Summary ---
Author Organization [facility] Address [address] [place] [address] Care Team Providers Care Civil Celebrant Name Role Phone Dasha Conway [facility] Primary Care Provider +1- [phone] Encounter Details Date Type Department Care Team (Late st Contact Info) Description 04/07/2022 [employer] Message Enc [facility] Medical Group Multispecialty Care - [place] [address] [address] [address] [place] [address] [place] [address] [place] [address] 157 [place] [address] Dexamethasone Social History Tobacco Use [...] Sex Assigned at Female 01/08/2021 9:43 AM FILE CLERK Legal Sex Female 5:13 PM CDT Gender Identity Female 01/08/2021 9:43 AM FILE CLERK Sexual Orientation Straight 01/08/2021 9: 43 AM FILE CLERK COVID-19 Exposure Response Date Recorded In the last 10 days, have asif rodriguez been in contact with someone who was confirmed or suspected to have Coronavirus/COVID-19? No / Unsure 03/28/2022 8:31 PM CDT documented as of this encounter Functional Status * RETIRED Are you deaf or do you have serious difficulty hearing Answer Date of Assessment Author Status No 01/29/2022 10:15 PM FILE CLERK Acti ve * RETIRED Are you blind or do you have serious difficulty seeing, even when wearing glasses? Answer Date of Assessment Author Status No 01/29/2022 10:15 PM FILE CLERK Acti ve * Do you have serious [...] Rule Out 10/06/2022 10/06/2022 10/06/2022 1:21 PM FILE CLERK COVID-19 Rule Out 10/06/2022 10/06/2022 10/07/2022 3:34 PM FILE CLERK COVID-19 Rule Out 09/14/2023 09/14/2023 09/14/2023 3:48 PM CDT COVID-19 Rule Out 11/02/2024 11/02/2024 11/02/2024 4:03 PM FILE CLERK Assessment Noted Time PHQ-9 Depression Total Score: 15 021 11:10 AM FILE CLERK documented as of this encounter Care Teams Civil Celebrant Relationship Specialty Start Date End Date Dasha Conway, CITIZENSHIP INSTRUCTOR- [address] [place] [address] PCP - General 11/02/24 documented as of this encounter
--- OUTSIDE RECORDS SUMMARY | 2025-02-11 16:45 | XMS_ITS | Encounter Summary ---
Author Organization [facility] - [facility] Address [address] [place] [address] Care Team Providers Care Sales Account Specialist Name Role Phone Dasha Conway [facility] Primary Care Provider +1- [phone] Encounter Details Date Type Department Care Team (Late st Contact Info) Description 01/26/2022 Kimblehart Message Enc [facility] Medical Group Multispecialty Care - [place] [address] [address] [address] [place] [address] [place] [address] [place] [address] [address] [place] [address] Urethral sling Social History Tobacco Use Types Packs/Day Years [...] Sex Assigned at Female 01/08/2021 9:43 AM PROCESS DESIGN CHEMICAL ENGINEER Legal Sex Female 5:13 PM CDT Gender Identity Female 01/08/2021 9:43 AM PROCESS DESIGN CHEMICAL ENGINEER Sexual Orientation Straight 01/08/2021 9: 43 AM PROCESS DESIGN CHEMICAL ENGINEER COVID-19 Exposure Response Date Recorded In the last 10 days, have asif rodriguez been in contact with someone who was confirmed or suspected to have Coronavirus/COVID-19? No / Unsure 01/29/2022 9:08 AM PROCESS DESIGN CHEMICAL ENGINEER documented as of this encounter Functional Status documented as of this encounter Mental Status * Question Answer Entry Date Author Status Because of a physical, mental, or emotional condition, do you have serious difficulty concentrating, remembering, or making decisions? No 01/29/2022 10:15 PM PROCESS DESIGN CHEMICAL ENGINEER Nanette Leonard RN Active documented in this [...] Rule Out 10/06/2022 10/06/2022 10/06/2022 1:21 PM PROCESS DESIGN CHEMICAL ENGINEER COVID-19 Rule Out 10/06/2022 10/06/2022 10/07/2022 3:34 PM PROCESS DESIGN CHEMICAL ENGINEER COVID-19 Rule Out 09/14/2023 09/14/2023 09/14/2023 3:48 PM CDT COVID-19 Rule Out 11/02/2024 11/02/2024 11/02/2024 4:03 PM PROCESS DESIGN CHEMICAL ENGINEER Assessment Noted Time PHQ-9 Depression Total Score: 15 021 11:10 AM PROCESS DESIGN CHEMICAL ENGINEER documented as of this encounter Care Teams Sales Account Specialist Relationship Specialty Start Date End Date Dasha Conway, COMPUTATIONAL CHEMIST- [address] [place] [address] PCP - General 11/02/24 documented as of this encounter
--- OUTSIDE RECORDS SUMMARY | 2025-02-11 16:45 | XMS_ITS | Encounter Summary ---
Author Organization [facility] - [facility] Address [address] [place] [address] Care Team Providers Care Outpatient Pharmacy Manager Name Role Phone Dasha Conway [facility] Primary Care Provider +1- [phone] Encounter Details Date Type Department Care Team (Late st Contact Info) Description 01/25/2022 Lexityhart Message Enc [facility] Medical Group Multispecialty Care - [place] [address] [address] [address] [place] [address] [place] [address] [place] [address] [address] [place] [address] Uti? Social History Tobacco Use Types Packs/Day Years [...] Sex Assigned at Female 01/08/2021 9:43 AM POWER SEWING MACHINE OPERATOR Legal Sex Female 5:13 PM CDT Gender Identity Female 01/08/2021 9:43 AM POWER SEWING MACHINE OPERATOR Sexual Orientation Straight 01/08/2021 9: 43 AM POWER SEWING MACHINE OPERATOR COVID-19 Exposure Response Date Recorded In the last 10 days, have asif rodriguez been in contact with someone who was confirmed or suspected to have Coronavirus/COVID-19? No / Unsure 01/26/2022 4:23 AM POWER SEWING MACHINE OPERATOR documented as of this encounter Plan of Treatment Not on file documented as of this encounter Visit Diagnoses Not on filedocumented in this encounter Additional Health Concerns Infection Onset Date Last Indicated Resolved Time 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 06/30/2017 COVID-19 Rule Out 04/21/2022 04/21/2022 04/21/2022 11:42 AM CDT COVID-19 Rule Out 04/21/2022 04/21/2022 04/26/2022 7:02 AM CDT COVID-19 Rule Out 10/06/2022 10/06/2022 10/06/2022 1:21 PM POWER SEWING MACHINE OPERATOR COVID-19 Rule Out 10/06/2022 10/06/2022 10/07/2022 3:34 PM POWER SEWING MACHINE OPERATOR COVID-19 Rule Out 09/14/2023 09/14/2023 09/14/2023 3:48 PM CDT COVID-19 Rule Out 11/02/2024 11/02/2024 11/02/2024 4:03 PM POWER SEWING MACHINE OPERATOR Assessment Noted Time PHQ-9 Depression Total Score: 15 11/03/2 021 11:10 AM POWER SEWING MACHINE OPERATOR documented as of this encounter Care Teams Outpatient Pharmacy Manager Relationship Specialty Start Date End Date Dasha Conway, ROLL FORMING MACHINE SET UP OPERATOR- [address] [place] [address] PCP - General 11/02/24 documented as of this encounter
--- OUTSIDE RECORDS SUMMARY | 2025-02-11 16:45 | XMS_ITS | Encounter Summary ---
Author Organization [facility] - [facility] Address [address] [place] [address] Care Team Providers Care Forestry Adviser Name Role Phone Dasha Conway [facility] Primary Care Provider +1- [phone] Encounter Details Date Type Department Care Team (Late st Contact Info) Description 08/11/2021 Fantáxicohart Message Enc [facility] Medical Group Multispecialty Care - [place] [address] [address] [place] [address] [place] [address] [place] [address] [address] [place] [address] RE: fax number Social History Tobacco Use Types Packs/Day Years [...] Sex Assigned at Female 01/08/2021 9:43 AM FERTILIZER LOADER Legal Sex Female 5:13 PM CDT Gender Identity Female 01/08/2021 9:43 AM FERTILIZER LOADER Sexual Orientation Straight 01/08/2021 9: 43 AM FERTILIZER LOADER COVID-19 Exposure Response Date Recorded In the [...] Rule Out 10/23/2021 10/23/2021 10/23/2021 9:25 AM FERTILIZER LOADER COVID-19 Rule Out 10/23/2021 10/23/2021 10/24/2021 12:21 AM FERTILIZER LOADER COVID-19 Rule Out 01/15/2022 01/15/2022 01/20/2022 10:53 AM FERTILIZER LOADER COVID-19 Rule Out 04/21/2022 04/21/2022 04/21/2022 11:42 AM CDT COVID-19 Rule Out 04/21/2022 04/21/2022 04/26/2022 7:02 AM CDT COVID-19 Rule Out 10/06/2022 10/06/2022 10/06/2022 1:21 PM FERTILIZER LOADER COVID-19 Rule Out 10/06/2022 10/06/2022 10/07/2022 3:34 PM FERTILIZER LOADER COVID-19 Rule Out 09/14/2023 09/14/2023 09/14/2023 3:48 PM CDT COVID-19 Rule Out 11/02/2024 11/02/2024 11/02/2024 4:03 PM FERTILIZER LOADER Assessment Noted Time PHQ-9 Depression Total Score: 22 021 9:18 AM CDT documented as of this encounter Care Teams Forestry Adviser Relationship Specialty Start Date End Date Dasha Conway FNP-STEPH [address] [place] [address] PCP - General 11/02/24 documented as of this encounter
[2025-02-11] MEDS: SODIUM CHLORIDE 0.9% IV 1,000 ML 999 ML IV CONT (16:46)
--- OUTSIDE RECORDS SUMMARY | 2025-02-11 16:46 | XMS_ITS | Encounter Summary ---
Author Organization [facility] - [facility] Address [address] [place] [address] Care Team Providers Care Network Security Consultant Name Role Phone Dasha Conway [facility] Primary Care Provider +1- [phone] Encounter Details Date Type Department Care Team (Latest Contact Info) Description 06/23/2022 C$ cMoneyt Message Enc [facility] Medical Group Multispecialty Care - [place] [address] [address] [place] [address] Curtis Diaz MD [address] [facility] [address] [place] [address] ABD+PEL WWO CON Social History Tobacco Use Types Packs/Day Years Used Date Smoking Tobacco: Heavy Smoker Cigarettes 1 28 Smokeless Tobacco: Never Comments:tried patches, gum, lozenges, [...] Sex Assigned at Female 01/08/2021 9:43 AM DOOR CAPTAIN Legal Sex Female 5:13 PM CDT Gender Identity Female 01/08/2021 9:43 AM DOOR CAPTAIN Sexual Orientation Straight 01/08/2021 9: 43 AM DOOR CAPTAIN COVID-19 Exposure Response Date Recorded In the last 10 days, have asif rodriguez been in contact with someone who was confirmed or suspected to have Coronavirus/COVID-19? No / Unsure 06/23/2022 9:46 AM CDT documented as of this encounter Functional Status * RETIRED Are you deaf or do you have serious difficulty hearing Answer Date of Assessment Author Status No 06/13/2022 10:59 PM CDT Acti ve * RETIRED Are you blind or do you have serious difficulty seeing, even when wearing glasses? Answer Date of Assessment Author Status No 06/13/2022 10:59 PM CDT Acti ve * Do you have serious difficulty walking or climbing stairs? Answer Date of Assessment Author Status No 06/13/2022 10:59 PM FAUZIAT Denis Nam RN Active * Do you have difficulty dressing or bathing? Answer Date of Assessment Author Status No 06/13/2022 10:59 PM Denis Murphy RN Active * Because of a physical, mental, or emotional condition, do you have difficulty doing errands alone such as visiting a doctor's office or shopping? Answer Date of Assessment Author Status No 06/13/2022 10:59 PM Denis Murphy RN Active documented as of this encounter Mental Status * Because of a physical, mental, or emotional condition, do you have serious difficulty concentrating, remembering, or making decisions? Answer Entry Date Author Status No 06/13/2022 10:59 PM Denis Murphy RN Active documented in this encounter Plan of Treatment Not on file documented as of this encounter Goals Goal Patient Goal Type Associated Problems Recent Progress Patient-Stated? Author Health - patient able to perform ADLs independently General No Cary anderson rJoselito RN documented as of this encounter Visit Diagnoses Not on filedocumented in this encounter Additional Health Concerns Infection Onset Date Last Indicated Resolved Time 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 06/30/2017 COVID-19 Rule Out 10/06/2022 10/06/2022 10/06/2022 1:21 PM DOOR CAPTAIN COVID-19 Rule Out 10/06/2022 10/06/2022 10/07/2022 3:34 PM DOOR CAPTAIN COVID-19 Rule Out 09/14/2023 09/14/2023 09/14/2023 3:48 PM CDT COVID-19 Rule Out 11/02/2024 11/02/2024 11/02/2024 4:03 PM DOOR CAPTAIN Assessment Noted Time PHQ-9 Depression Total Score: 4 05/12/20 22 3:34 PM CDT documented as of this encounter Care Teams Network Security Consultant Relationship Specialty Start Date End Date Dasha Conway, FILM MOUNTER- [address] [place] [address] PCP - General 11/02/24 documented as of this encounter
--- OUTSIDE RECORDS SUMMARY | 2025-02-11 16:46 | XMS_ITS | Encounter Summary ---
Author Organization [facility] - [facility] Address [address] [place] [id number] Care Team Providers Care Business Broker Name Role Phone Dasha Conway [facility] Primary Care Provider [phone] Encounter Details Date Type Department Care Team (Latest Contact Info) Description 06/22/2022 [employer] Message Enc [facility] - [address] [address] [address] [place] [address] [place] [address] [place] [address] [address] [place] [address] Keep appointment? Social History Tobacco Use Types Packs/Day Years Used Date Smoking Tobacco: Heavy Smoker Cigarettes 1 27 Smokeless Tobacco: Never Comments:tried [...] Sex Assigned at Female 01/08/2021 9:43 AM EXPLOSIVE ORDNANCE MANAGER Legal Sex Female 5:13 PM CDT Gender Identity Female 01/08/2021 9:43 AM EXPLOSIVE ORDNANCE MANAGER Sexual Orientation Straight 01/08/2021 9: 43 AM EXPLOSIVE ORDNANCE MANAGER COVID-19 Exposure Response Date Recorded In [...] Author Status No 06/13/2022 10:59 PM CDT Denis Nam RN Active * Do you have difficulty dressing or bathing? Answer Date of Assessment Author Status No 06/13/2022 10:59 PM CDT eDnis Nam RN Active * Because of a physical, mental, or emotional condition, do you have difficulty doing errands alone such as visiting a doctor's office or shopping? Answer Date of Assessment Author Status No 06/13/2022 10:59 PM CDT Denis Nam RN Active documented as of this encounter Mental Status * Because of a physical, mental, or emotional condition, do you have serious difficulty concentrating, remembering, or making decisions? Answer Entry Date Author Status No 06/13/2022 10:59 PM CDT Denis Nam RN Active documented in this encounter Plan of Treatment Not on file documented as of this encounter Goals Goal Patient Goal Type Associated Problems Recent Progress Patient-Stated? Author Health - patient able to perform ADLs independently General No Joselito Rutledge RN documented as of this encounter Visit Diagnoses Not on filedocumented in this encounter Additional Health Concerns Infection Onset Date Last Indicated Resolved Time 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 06/30/2017 COVID-19 Rule Out 10/06/2022 10/06/2022 10/06/2022 1:21 PM EXPLOSIVE ORDNANCE MANAGER COVID-19 Rule Out 10/06/2022 10/06/2022 10/07/2022 3:34 PM EXPLOSIVE ORDNANCE MANAGER COVID-19 Rule Out 09/14/2023 09/14/2023 09/14/2023 3:48 PM CDT COVID-19 Rule Out 11/02/2024 11/02/2024 11/02/2024 4:03 PM EXPLOSIVE ORDNANCE MANAGER Assessment Noted Time PHQ-9 Depression Total Score: 4 05/12/20 3:34 PM CDT documented as of this encounter Care Teams Business Broker Relationship Specialty Start Date End Date Dasha Conway, HAND CUTTER APPRENTICE- [address] [place] [id number] PCP - General 11/02/24 documented as of this encounter
--- OUTSIDE RECORDS SUMMARY | 2025-02-11 16:46 | XMS_ITS | Data Portability ---
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 We have agreed to complete the evaluation with pelvic ultrasound. The patient will return after the pelvic ultrasound to discuss those findings and to develop a treatment plan. A comprehensive history and physical exam was performed today. We spent over 25 minutes [id number]. The patient was given precautions. She will contact clinic if pelvic pain increases in frequency or intensity. Also notify clinic of any new symptoms associated with pelvic pain. She does not appear to have an acute pelvic infection today, but was asked to contact us Immediately with nausea, vomiting, fever, chills. [email or web address] Not available 01/14/2021 09:15:50 06/10/2021 06/10/2021 Annual gynecological exam performed. Patient will come back in a year unless there are new symptoms. Not available 06/10/2021 11:32:43 Plan of Treatment Reminders Order Date Submit Date Provider Last Modified By Organization Details Last Modified Time Details Appointments None recorded . Lab None recorded . Referral urogynec ologist referral 2020 021 THERESA Lundberg MD, [address] [facility] [address], [place], [address], 05:01:09 Procedures None recorded . Surgeries None recorded . Imaging US, transvag inal 2022 023 [email or web address] Jensen, [address], [address], [place], [address], 3 16:50:35 US, pelvis, complete 2022 023 [email or web address] Jensen, [address], [address], [place], [address], 3 12:48:43 MAMMO, diagnost ic, digital, bilatera l 2020 021 [facility], [address] [place] [address], [phone], 1 16:01:36 US, breast, bilatera l 2020 021 [facility], [address] [place] [address], [place], [address], 1 09:56:48 US, pelvis, complete 2020 021 [facility], [address], [address], [place], [address], 2 05:01:16 CT, abdomen + pelvis, w/ contrast 2020 021 [facility], [address] [place] [address], [place], [address], 1 08:02:31 Medication Orders Prometri um 200 mg capsule 2020 021 [id number] [address] [facility], [place], [place], [id number], 1 12:02:22 meloxica m 7.5 mg tablet 2020 021 [id number], [address], [place], [place], [id number], 12:01:51 Patient TargetsNo targets recorded. Patient InstructionsNo instructions recorded. Reason for Referral Urogynecologist Referral for Female stress incontinence Referring Physician: Mikaela Royal, [employer], Encounter Date: 01/02/2021 Results Created Date Observation Date Name Description Value Unit Range Abnormal Flag Note LastModifiedBy Organization Detail LastModifiedTime 01/05/20 21 01/05/2021 US, stephy fernandez md interpretati on Not Available [facility] [address], [place], [address], 05/19/2020 17:01:04 01/08/20 21 01/08/2021 , stephy fernandez md interpretati on Not Available [facility] [address], [place], [address], 07/09/2020 15:18:09 01/02/20 US, trans vagin al No observ ation record ed. [facility] [address], [place], [address], 01/05/2021 13:48:21 01/08/20 21 01/07/2021 CT, abdom en + pelvi s, w/ contr ast No observ ation record ed. [facility] (Imaging) [address] [place] [address] [place] [address], [phone], 01/12/2021 12:17:09 06/17/20 21 06/16/2021 MAMMO , diagn ostic , digit al, bilat eral No observ ation record ed. [address] [address], [place], [address], 07/16/2021 12:09:42 07/29/20 21 07/29/2021 MAMMO , diagn ostic , digit al, bilat eral No observ ation record ed. [address], [place], [address], 08/06/2021 10:15:50 07/29/20 21 07/29/2021 MAMMO , diagn ostic , digit al, bilat eral No observ ation record ed. [facility] [address], [place], [address], 08/06/2021 10:15:50 08/03/20 23 08/03/2023 US, trans vagin al No observ ation record ed. [email or web address] Jensen [address], [place], [address], 08/03/2023 13:10:44 08/03/20 23 08/03/2023 US, trans vagin al No observ ation record ed. ana m Louis [address], [place], [address], 08/05/2023 13:22:03 Result Notes Documentation Provider Name and Address Organization Details Recorded Time Mammo, Diagnostic, Digital, Bilateral : 06-18-21: Pt is aware of results. will get bilateral breast ultrasound christiano galvan [place] - [facility] 07/16/2021 12:09:42 Problems Name Problem SNOMED Code Status Onset Date Resolution Date Notes Provider Name and Address Organization Details Recorded Time Pelvic and perineal pain 996809206 Active 2018 Pelvic and perineal pain;Recor ded Elsewhere: No Locatio n: [facility] rce: EHR Chroni c: N Practice ID: [id number] Billa ble Time: 09:45:00 AM Not Available [facility] 0 19:01:51 Endometri osis (clinical ) [id number] Active 2018 Endometrio sis, unspecifie d;Recorded Elsewhere: No Locatio n: [facility] rce: EHR Chroni c: N Practice ID: 0001 Billa ble Time: 09:45:00 AM Not Available [facility] 0 19:01:51 Alopecia [id number] Active 2019 Alopecia;R ecorded Elsewhere: No Locatio n: [facility] rce: EHR Chroni c: N Practice ID: 0001 Go ble Time: 02:45:00 PM Not Available [facility] 0 19:01:51 Problem Notes None recorded. Procedures Surgical History Date Name Laterality Status Provider Name and Address Organization Details Recorded Time 023 Date of Last Mammogram completed [facility] 07/26/2023 12:27:28 022 Date of Last Colonoscopy completed [facility] 07/26[facility]2023 12:27:28 Breast Implants completed Mary Downing [facility] 06/10/2021 12:00:40 Cholecystectomy completed [facility] 07/09/2020 11:36:39 Laparoscopy completed [facility] 07/09/2020 11:37:06 Partial Hysterectomy completed [facility] 07/09/2020 11:37:21 Imaging Results Imaging Date Name Status LastModified by Organization Details LastModified Time 01/02/2021 US, transvaginal completed [facility] [address], [place], [address], 01/05/2021 13:48:21 01/07/2021 CT, abdomen + pelvis, w/ contrast completed [facility] ([facility]) [address] [place] [address], [phone], 01/12/2021 12:17:09 06/16/2021 MAMMO, diagnostic, digital, bilateral completed [address], [address], 07/16/2021 12:09:42 07/29/2021 MAMMO, diagnostic, digital, bilateral completed [address], [address], 08/06/2021 10:15:50 07/29/2021 MAMMO, diagnostic, digital, bilateral completed [facility] [address], [place], [address], 08/06/2021 10:15:50 08/03/2023 US, transvaginal completed [email or web address] Stanislav garcia [address], [place], [address], 08/03/2023 13:10:44 08/03/2023 [facility]y [address], [place], [address], 08/05/2023 13:22:03 Procedure Notes None recorded. Medical Equipment None Reported. Allergies Allergen ID Allergen Name Allergen Category Reaction Reaction Severity Criticality Documentation Date Start Date Code Code System Note Provider Name and Address Organization Details Recorded Time 1127 azithromy inocencio medicatio n Not available Not available Not available 05/16/2020 43245 RxNorm Saundra Ashley [facility] 0 16:53:57 1128 Product containin g penicilli n (product) medicatio n Not available Not available Not available 05/16/2020 10254 8001 SNOM[address] [facility] 0 16:54:06 1129 potassium medicatio n Not available Not available Not available 05/16/2020 8588 RxNorm Mary Downing [facility] 1 12:00:54 90551 Augmentin medicatio n Not available Not available Not available 06/10/2021 64887 2 RxNorm Mary Down[address] [facility] 1 12:01:02 81068 Bactrim medicatio n Not available Not available Not available 07/26/2023 30693 9 RxNorm Neena Clarissa rdz [facility] 3 12:27:25 Medications Name Sig Start Date Stop Date Status Note LastModified by Organization Details LastModified Time doxycycli ne hyclate 100 mg caps 05/20 completed Not Available Not Available Not Available dulera aer 200-5mcg 05/20 completed Not Available Not Available Not Available vraylar 6 mg caps 05/20 completed Not Available Not Available Not Available stiolto aer 2.5-2.5 05/20 completed Not Available Not Available Not Available hydrocort isone 2.5 % crea 05/20 completed Not Available Not Available Not Available propranol ol hydrochlo ride er 60 mg cp24 05/20 completed Not Available Not Available Not Available doxycycli ne monohydra te 100 mg caps 05/20 completed Not Available Not Available Not Available antacid/d iphen/lid o 111 mouthwas TAKE 10 ML BY MOUTH DIRECTED EVERY 6 HOURS NEEDED 07/26 completed Not Available Not Available Not Available tizanidin e hcl 2 mg tabs 05/20 completed Not Available Not Available Not Available colchicin e 0.6 mg tabs 05/20 completed Not Available Not Available Not Available arnuity ellipta 100 mcg/act aepb 05/20 completed Not Available Not Available Not Available triamcino lone acetonide 0.1 % crea 05/20 completed Not Available Not Available Not Available rosuvasta tin calcium 20 mg tabs 05/20 completed Not Available Not Available Not Available spravato frankie 84mg dos 05/20 completed Not Available Not Available Not Available fasenra 30 mg/ml sosy 05/20 completed Not Available Not Available Not Available spravato frankie 56mg dos 05/20 completed Not Available Not Available Not Available xarelto 20 mg tabs 05/20 completed Not Available Not Available Not Available smz/tmp ds tab 800-160 05/20 completed Not Available Not Available Not Available nitrofura ntoin monohydra te/macroc ry stals 100 mg caps 05/20 completed Not Available Not Available Not Available amphet/de xtr cap 30mg er 05/20 completed Not Available Not Available Not Available albuterol sulfate 0.083 % nebu 05/20 completed Not Available Not Available Not Available hydromorp jackeline hcl 2 mg tabs 05/20 completed Not Available Not Available Not Available cyclobenz aprine hydrochlo ride 10 mg tabs 05/20 completed Not Available Not Available Not Available apap/code ine tab 300-30mg 05/20 completed Not Available Not Available Not Available sucralfat e 1 gm/10ml susp 05/20 completed Not Available Not Available Not Available flovent hfa 110 mcg/act aero 05/20 completed Not Available Not Available Not Available metformin hydrochlo ride 500 mg tabs 05/20 completed Not Available Not Available Not Available proair hfa 108 mcg/act aers 05/20 completed Not Available Not Available Not Available pregabali n 75 mg caps 05/20 completed Not Available Not Available Not Available lonhala magnair starter kit 25 mcg/ml soln 05/20 completed Not Available Not Available Not Available lorazepam 2 mg tabs 05/20 completed Not Available Not Available Not Available vraylar 4.5 mg caps 05/20 completed Not Available Not Available Not Available vraylar 3 mg caps 05/20 completed Not Available Not Available Not Available zaleplon 10 mg caps 05/20 completed Not Available Not Available Not Available quetiapin e fumarate 300 mg tabs 05/20 completed Not Available Not Available Not Available dexametha sone 4 mg tabs 05/20 completed Not Available Not Available Not Available cyclobenz aprine 10 mg tablet 06/10 completed Not Available Not Available Not Available venlafaxi ne ER 37.5 mg capsule,e xtended release 24 hr 07/09 completed Not Available Not Available Not Available potassium chloride ER 10 mEq capsule,e xtended release TAKE 1 CAPSULE BY MOUTH DAILY 07/26 completed Not Available Not Available Not Available gabapenti n 600 mg tablet TK 1 T PO TID UTD 01/02 completed Not Available Not Available Not Available quetiapin e 300 mg tablet take 1 tablet by oral route every day 07/09 completed Not Available Not Available Not Available clindamyc in HCl 300 mg capsule TAKE 1 CAPSULE BY MOUTH EVERY 6 HOURS 07/26 completed Not Available Not Available Not Available alprazola m 1 mg tablet TK 2 TS PO BID 06/10 completed Not Available Not Available Not Available metoprolo l tartrate 100 mg tablet 01/02 completed Not Available Not Available Not Available fluconazo le 150 mg tablet 07/26 completed Not Available Not Available Not Available glyburide 2.5 mg tablet 01/02 completed Not Available Not Available Not Available hydrocodo ne 5 mg-acetam inophen 325 mg tablet TAKE 1 TO 2 TABLETS BY MOUTH EVERY 6 HOURS NEEDED 06/10 completed Not Available Not Available Not Available fluconazo le 200 mg tablet 07/26 completed Not Available Not Available Not Available ondansetr on HCl 4 mg tablet TAKE 1 Tablet BY MOUTH EVERY 6 HOURS NEEDED FOR NAUSEA 07/26 completed Not Available Not Available Not Available propranol ol ER 60 mg capsule,2 4 hr,extend ed release 07/26 completed Not Available Not Available Not Available quetiapin e 200 mg tablet TAKE 1 TABLET BY MOUTH EVERY DAY AT BEDTIME 07/26 completed Not Available Not Available Not Available diphenoxy late-atro pine 2.5 mg-0.025 mg tablet TAKE 1 TABLET BY MOUTH TWICE DAILY NEEDED FOR DIARRHEA 07/26 completed Not Available Not Available Not Available metronida zole 500 mg tablet TAKE 1 TABLET BY MOUTH EVERY 8 HOURS FOR 10 DAYS 07/26 completed Not Available Not Available Not Available acetamino phen 300 mg-codein e 30 mg tablet TAKE 1 TABLET BY MOUTH FOUR TIMES DAILY NEEDED FOR PAIN 07/26 completed Not Available Not Available Not Available fexofenad ine 180 mg tablet TK 1 T PO QD 01/02 completed Not Available Not Available Not Available sulfameth oxazole 800 mg-trimet hoprim 160 mg tablet TAKE 1 TABLET BY MOUTH TWICE DAILY FOR ACUTE OPIOID THERAPY DAYS 01/02 completed Not Available Not Available Not Available omeprazol e 40 mg capsule,d elayed release 08/05 completed Not Available Not Available Not Available butalbita l-acetami nophen-ca ffeine 50 mg-325 mg-40 mg tablet TAKE 1 TABLET BY MOUTH EVERY 6 HOURS NEEDED FOR HEADACHE 07/26 completed Not Available Not Available Not Available lamotrigi ne 25 mg tablet TAKE 1 TABLET BY MOUTH DAILY 07/26 completed Not Available Not Available Not Available pantopraz ole 20 mg tablet,de layed release Take 1 tablet twice a day by oral route. active Not Available Not Available No t Available meloxicam 7.5 mg tablet TAKE 1 TABLET BY MOUTH TWICE DAILY FOR 7 DAYS NEEDED 06/10 completed Not Available Not Available Not Available oxycodone -acetamin ophen 5 mg-325 mg tablet TAKE 1 TABLET BY MOUTH TWICE DAILY 06/10 completed Not Available Not Available Not Available potassium chloride ER 20 mEq tablet,ex tended release(p art/cryst ) 01/02 completed Not Available Not Available Not Available famotidin e 20 mg tablet TAKE 1 TABLET BY MOUTH TWICE DAILY 07/26 completed Not Available Not Available Not Available amitripty line 25 mg tablet TAKE 1 TABLET BY MOUTH AT BEDTIME 07/26 completed Not Available Not Available Not Available metoclopr amide 5 mg tablet TAKE 1 TABLET BY MOUTH BEFORE MEALS 07/26 completed Not Available Not Available Not Available levofloxa inocencio 0.5 % eye drops instill 1 drop by ophthalm ic route every 4 hours into affected eye(s) while awake; do not exceed 4 doses in 24 hours 01/02 completed Prescrib ed Elsewher e: Yes Loca tion: [facility] odify By: jaison Sanchez ter DateTime : 01/18/20 02:45:00 PM Not Available Not Available Not Available Vibramyci n 100 mg capsule take 1 capsule by oral route 2 times every day 01/02 completed Prescrib ed Elsewher e: Yes Loca tion: [facility] odify By: jaison Sanchez ter DateTime : 01/18/20 02:45:00 PM Not Available Not Available Not Available Keflex 250 mg capsule take 1 capsule by oral route every 6 hours 01/02 completed Prescrib ed Elsewher e: Yes Loca tion: [facility] odify By: jaison Sanchez ter DateTime : 01/18/20 02:45:00 PM Not Available Not Available Not Available OneTouch Ultra Test strips TEST TWICE DAILY NEEDED 07/26 completed Not Available Not Available Not Available dexametha sone 1 mg tablet 07/26 completed Not Available Not Available Not Available lorazepam 2 mg tablet 07/09 completed Not Available Not Available Not Available benzonata te 100 mg capsule TK 1 C PO TID PRF COUGH 01/02 completed Not Available Not Available Not Available dexametha sone 2 mg tablet 07/26 completed Not Available Not Available Not Available pantopraz ole 40 mg tablet,de layed release 07/26 completed Not Available Not Available Not Available hyoscyami ne sulfate 0.125 mg tablet 07/26 completed Not Available Not Available Not Available clotrimaz ole-betam ethasone 1 %-0.05 % topical cream 06/10 completed Not Available Not Available Not Available Effexor XR 150 mg capsule,e xtended release take 1 capsule by oral route every day 01/02 completed Prescrib ed [facility] e: Yes Loca tion: [facility] odify By: [email or web address] Encount er DateTime : 08/09/20 09:45:00 AM Not Available Not Available Not Available progester one micronize d 200 mg capsule TAKE 1 CAPSULE BY MOUTH EVERY DAY 06/10 completed Not Available Not Available Not Available gabapenti n 300 mg capsule TK 1 C PO BID UTD 06/10 completed Not Available Not Available Not Available omeprazol e 20 mg capsule,d elayed release 01/02 completed Not Available Not Available Not Available mupirocin 2 % topical ointment APPLY EXTERNAL LY TO THE AFFECTED AREA THREE TIMES DAILY FOR 7 DAYS 01/02 completed Not Available Not Available Not Available alprazola m 2 mg tablet TAKE 1 TABLET BY MOUTH TWICE DAILY 07/26 completed Not Available Not Available Not Available Prometheg an 25 mg rectal supposito ry insert 1 SUPPOSIT ORY into THE rectum EVERY 8 HOURS NEEDED FOR NAUSEA 07/26 completed Not Available Not Available Not Available lorazepam 1 mg tablet TAKE 1 TABLET BY MOUTH TWICE DAILY DIRECTED 07/26 completed Not Available Not Available Not Available oxycodone -acetamin ophen 7.5 mg-325 mg tablet TAKE 1 TABLET BY MOUTH TWICE DAILY NEEDED FOR PAIN OR ACUTE PAIN 09/05 /2023 completed Not Available Not Available Not Available Valium 10 mg tablet take 1 tablet by oral route 3 times every day 01/18 completed Prescrib ed Elsewher e: Yes Loca tion: Stanislav garcia [facility] odify By: jaison cespedes DateTime : 08/09/20 09:45:00 AM Not Available Not Available Not Available methylpre dnisolone 4 mg tablets in a dose pack FPD 01/02 completed Not Available Not Available Not Available albuterol sulfate HFA 90 mcg/actua tion aerosol inhaler INHALE 2 PUFFS INTO THE LUNGS EVERY 6 HOURS NEEDED FOR WHEEZING active Not Available Not Available No t Available dextroamp hetamine- amphetami ne ER 30 mg 24hr capsule,e xtend release TAKE 1 CAPSULE BY MOUTH DAILY IN THE MORNING 07/26 completed Not Available Not Available Not Available propranol ol 20 mg tablet 07/26 completed Not Available Not Available Not Available haloperid ol 2 mg tablet TAKE 1 TABLET BY MOUTH AT BEDTIME 07/26 completed Not Available Not Available Not Available ondansetr on 4 mg disintegr ating tablet DISSOLVE 1 TABLET ON THE TONGUE EVERY 6 HOURS NEEDED FOR NAUSEA OR VOMITING 07/26 completed Not Available Not Available Not Available fluticaso ne propionat e 50 mcg/actua tion nasal spray,viji pension SHAKE LIQUID AND USE 2 SPRAYS IN EACH NOSTRIL DAILY 08/05 completed Not Available Not Available Not Available dicyclomi ne 10 mg capsule TAKE ONE CAPSULE BY MOUTH TWICE DAILY WITH MEALS 08/05 completed Not Available Not Available Not Available glipizide 5 mg tablet TAKE 1/2 TABLETS EVERY MORNING BEFORE BREAKFAS T 07/26 completed Not Available Not Available Not Available naproxen 500 mg tablet one tablet by oral route twice daily 06/10 completed Not Available Not Available Not Available Ativan 2 mg/mL injection solution inject 1 millilit er by intraven ous route 30 minutes before chemothe rapy 01/02 completed Prescrib ed Elsewher e: Yes Loca tion: Stanislav [facility] odify By: jaison cespedes DateTime : 01/18/20 02:45:00 PM Not Available Not Available Not Available metoclopr amide 10 mg tablet active Not Available Not Available No t Available clindamyc in phosphate 1 % topical solution DAB ONTO INFECTED AREA 2-4 TIMES DAILY PRN 01/02 completed Not Available Not Available Not Available oxycodone 5 mg tablet TAKE 1 Tablet BY MOUTH EVERY 6 HOURS NEEDED FOR PAIN, TAKE IF other medicati on does not relieve PAIN 07/26 completed Not Available Not Available Not Available enoxapari n 40 mg/0.4 mL subcutane ous syringe INJECT 1 syringe SUBCUTAN EOUSLY EVERY DAY, BEGIN 12 HOURS AFTER THE DAY OF surgery discharg e 07/26 completed Not Available Not Available Not Available rosuvasta tin 20 mg tablet TAKE 1 TABLET BY MOUTH DAILY 07/26 completed Not Available Not Available Not Available metoprolo l tartrate 25 mg tablet 06/10 completed Not Available Not Available Not Available Antacid Regular Strength 200 mg-200 mg-20 mg/5 mL oral suspensio n 07/26 completed Not Available Not Available Not Available nitrofura ntoin monohydra te/macroc rystals 100 mg capsule 07/26 completed Not Available Not Available Not Available aspirin 07/26 completed Not Available Not Available Not Available lorazepam 07/09 completed Not Available Not Available Not Available ferrous sulfate 01/02 completed Not Available Not Available Not Available folic acid 07/26 completed Not Available Not Available Not Available iron 07/09 completed Not Available Not Available Not Available Seroquel 07/26 completed Not Available Not Available Not Available Vitamin D 07/09 completed Not Available Not Available Not Available Xanax 06/10 completed Not Available Not Available Not Available Adderall 07/26 completed Not Available Not Available Not Available Crestor active Not Available Not Avail able Not Available quetiapin e 400 mg tablet TK 1 T PO QD HS 01/02 completed Not Available Not Available Not Available diclofena c 1 % topical gel 01/02 completed Not Available Not Available Not Available Dulera 200 mcg-5 mcg/actua tion HFA aerosol inhaler 07/09 completed Not Available Not Available Not Available sodium,po tassium,m ag sulfates 17.5 gram-3.13 gram-1.6 gram oral soln MIX AND DRINK DIRECTED 07/26 completed Not Available Not Available Not Available Xarelto 06/10 completed Not Available Not Available Not Available Xarelto 20 mg tablet TK 1 T PO D active Not Available Not Available No t Available Trulicity 1.5 mg/0.5 mL subcutane ous pen injector ADMINIST ER 1.5 MG UNDER THE SKIN WEEKLY 06/10 completed Not Available Not Available Not Available Trulicity 0.75 mg/0.5 mL subcutane ous pen injector ADMINIST ER 0.75 MG UNDER THE SKIN 1 TIME A WEEK 06/10 completed Not Available Not Available Not Available Toujeo SoloStar U-300 Insulin 300 unit/mL (1.5 mL) subcutane ous pen ADMINIST ER 12 UNITS UNDER THE SKIN DAILY 07/26 completed Not Available Not Available Not Available Vitamin B12 07/26 completed Not Available Not Available Not Available Viberzi 75 mg tablet take 1 tablet by oral route 2 times every day 01/02 completed Prescrib ed Elsewher e: Yes Loca tion: [facility] odify By: jaison cespedes DateTime : 01/18/20 02:45:00 PM Not Available Not Available Not Available Narcan 4 mg/actuat ion nasal spray CALL 911. SPR CONTENTS OF ONE SPRAYER (0.1ML) INTO ONE NOSTRIL. REPEAT IN 2-3 MIN IF SYMPTOMS OF OPIOID EMERGENC Y PERSIST, ALTERNAT E NOSTRIL 06/10 completed Not Available Not Available Not Available Vraylar 6 mg capsule TAKE 1 CAPSULE BY MOUTH EVERY DAY active Not Available Not Available No t Available Vraylar 4.5 mg capsule TAKE 1 CAPSULE BY MOUTH EVERY DAY 06/10 completed Not Available Not Available Not Available Vraylar 06/10 completed Not Available Not Available Not Available Norlyda 0.35 mg tablet Take 1 tablet every day by oral route. 07/09 completed Not Available Not Available Not Available OneTouch Ultra Blue Test Strip TEST TWICE DAILY NEEDED 01/02 completed Not Available Not Available Not Available Toujeo Max U-300 SoloStar 300 unit/mL (3 mL) subcutane ous insulin pen ADMINIST ER 5 UNITS UNDER THE SKIN EVERY NIGHT AT BEDTIME 07/26 completed Not Available Not Available Not Available Arnuity Ellipta 50 mcg/actua tion powder for inhalatio n 01/02 [facility] L[facility] tion: Stanislav garcia [facility] odkelly By: jaison cespedes DateTime : 01/18/20 02:45:00 PM Not Available Not Available Not Available Spravato 56 mg (28 mg x 2) nasal spray 07/09 completed Not Available Not Available Not Available Spravato 84 mg (28 mg x 3) nasal spray 07/09 completed Not Available Not Available Not Available Spravato 07/09 completed Not Available Not Available Not Available OneTouch Ultra2 Meter USE UTD BID 01/02 completed Not Available Not Available Not Available OneTouch Delica Plus Lancet 33 gauge USE BID. 01/02 completed Not Available Not Available Not Available Trulicity 3 mg/0.5 mL subcutane ous pen injector 06/10 completed Not Available Not Available Not Available Paxlovid 300 mg (150 mg x 2)-100 mg tablets in a dose pack TAKE 2 NIRMATRE LVIR TABLETS AND 1 RITONAVI R TABLET TOGETHER BY MOUTH TWICE DAILY FOR 5 DAYS. MAY TAKE WITH OR WITHOUT FOOD 07/26 completed Not Available Not Available Not Available Dodex 1,000 mcg/mL injection solution 07/26 completed Not Available Not Available Not Available Vitals Date Recorded Body height Body mass index (BMI) Body weight Systolic blood pressure Diastolic blood pressure Provider Name and Address Organization Details Last Updated DateTime 06/10/2021 160.02 cm 29.4 kg/m2 12420.33 g 120 mm[Hg] 83 mm[Hg] Mary Downing [facility] 1 12:00:08 Date Recorded Body height Body mass index (BMI) Body weight Systolic blood pressure Diastolic blood pressure Provider Name and Address Organization Details Last Updated DateTime 07/26/2023 160.02 cm 29.2 kg/m2 24130.74 g 125 mm[Hg] 78 mm[Hg] Neena Stoddard [facility] 3 12:27:21 Date Recorded Body height Body mass index (BMI) Body weight Systolic blood pressure Diastolic blood pressure Provider Name and Address Organization Details Last Updated DateTime 08/05/2023 160.02 cm 26.6 kg/m2 27522.86 g 121 mm[Hg] 83 mm[Hg] Pretty Stevens [facility] 3 11:00:38 Date Recorded Body height Body mass index (BMI) Body weight Systolic blood pressure Diastolic blood pressure Provider Name and Address Organization Details Last Updated DateTime 01/02/2021 160.02 cm 31.7 kg/m2 55247.03 g 127 mm[Hg] 79 mm[Hg] Jovana Brito [facility] 1 09:49:52 Social History Question Answer Notes LastModified by Organizat ion Details LastModified Time Tobacco Smoking Status Current Every Day Smoker Prettyjohanna Stevens [facility] 08/05/2023 11:00:53 Do You Have An Advance Directive? No Information n ot available 06/10/2021 What Is Your Level Of Alcohol Consumption? None Information not available 01/02/2021 If You Are , What Was Your Level Of Alcohol Consumption Prior To ? None Information not available 08/05/2023 Are You Blind Or Do You Have Difficulty Seeing? No Information n ot available 06/10/2021 What Is Your Level Of Caffeine Consumption? Moderate Information not available 06/10/2021 How Much Tobacco Do You Chew? None Information not available 06/10/2021 In The 14 Days Before Symptom Onset, Have You Had Close Contact With A Laboratory-confirm ed COVID-19 While That Case Was Ill? No Information n ot available 06/10/2021 In The 14 Days Before Symptom Onset, Have You Had Close Contact With A Person Who Is Under Investigation For COVID-19 While That Person Was Ill? No Information not available 06/10/2021 Have You Been To An Area Known To Be High Risk For COVID-19? No Information not available 06/10/2021 Are You Deaf Or Do You Have Serious Difficulty Hearing? No Information not available 06/10/2021 What Type Of Diet Are You Following? DIABETIC Information n ot available 06/10/2021 Which Illicit Or Recreational Drugs Have You Used? Oaks Information not available 08/05/2023 What Is The Highest Grade Or Level Of School You Have Completed Or The Highest Degree You Have Received? [id number] Information not available 06/10/2021 What Is Your Occupation? Disabled Information not available 06/10/2021 How Many Days Of Moderate To Strenuous Exercise, Like A Brisk Walk, Did You Do In The Last 7 Days? 5 Information not available 08/05/2023 Are There Any Guns Present In Your Home? No Information not available 06/10/2021 Do You Use Protection During Sex? Always Information not available 06/10/2021 Do You Use Your Seat Belt Or Car Seat Routinely? Yes Information not available 06/10/2021 Do You Have Smoke And Carbon Monoxide Detectors In Your Home? Yes Information not available 06/10/2021 At What Age Did You Start Smoking Tobacco? 14 Information not available 06/10/2021 How Much Tobacco Do You Smoke? 1 PPD [email or web address] Information not available 05/16/2020 Do You Feel Stressed (tense, Restless, Nervous, Or Anxious, Or Unable To Sleep At Night)? [id number] Information not available 06/10/2021 Do You Use Any Illicit Or Recreational Drugs? No Information not available 06/10/2021 Do You Use Sunscreen Routinely? No Information not available 06/10/2021 Has Tobacco Cessation Counseling Been Provided? No Information not available 08/05/2023 How Many Years Have You Smoked Tobacco? 27 Information not available 08/05/2023 Have You Used IV Drugs? No Information not available 01/02/2021 Do You Or Have You Ever Used Any Other Forms Of Tobacco Or Nicotine? No Information not available 08/05/2023 Sex: Unknown Functional Status Question Answer Note LastModified by Organizat ion Details LastModified Time Are you able to walk? YESWOREST Information not available 06/10/2021 What is your exercise level? Occasional Information not available 01/02/2021 Mental Status None recorded. Family History Nothing Reported. Medical History Condition Response Diabetes Y Allergies (Food, seasonal, environmental ) Y Other Y Hematologic disorders Y Drug/Latex Allergies/Reactions Y Acid Reflux (GERD) Y GI Problems Y Asthma Y Psychiatric Illness Y Gynecological History Statement/Question Response Date of Last Mammogram 02/02/2023 On BCP's at Conception? N N STIs/STDs Y HPV Vaccine N Current Control Method Hysterectom y Age at First Child 34 Date of Last Colonoscopy 08/21/2022 Sexually Active? N Menses Monthly N Age of first menstrual cycle 13 Date of Last Pap Smear Sexual Problems? N LMP Unknown N Obstetrics History GPAL:G 1 P 0 0 0 1 Type Value Living 1 Total 1 Past Encounters Encounter ID Performer Location Encounter Start Date Encounter Closed Date Diagnosis/Indication Diagnosis SNOMED-CT Code Diagnosis ICD10 Code Diagnosis Note [id number] Mag Castro Jensen [address],[place] [address] 05/19/2020 16:20:32 05/19/2020 17:09:54 Pain in pelvis 91033698 R10.2 [id number] S Jose Luis Jensen [address],[place] [address] 05/20/2020 11:43:17 05/20/2020 16:43:16 Cyst of right ovary 6850135869 1609210 N83.201 We discussed option of surgery either to remove cysts or ovaries entirely. She wants to avoid surgery, particular ly removal of ovaries since she should not take estrogen due to antiphosph olipid antibody syndrome. She opts to start POP and repeat U/S in 6-8 weeks. I advised her to take Aleve regularly and [place] prn. [id number] Kimber Downing Jensen [address],[place] [address] 07/09/2020 14:51:25 07/09/2020 15:27:37 Pain in pelvis 86144093 R10.2 [id number] Kiel Camacho MD Jensen [address],[place] [address] 07/09/2020 14:51:50 07/10/2020 22:56:29 Pain in pelvis 47090547 R10.2 Endometrio sis of pelvis 36465114 N80.3 this patient is a 40-year-ol d female who is known to have endometrio sis. She has pelvic pain. We spent 25 minutes face-to-fa ce discussing her ultrasound results, her history, her treatment options. She has factor 5 Leiden. After discussing multiple treatment options we agreed to a trial of Orlissa. We agreed to the lower dose or list so. She will take 150 a day for 1 month. She return in 1 month. [id number] Mikaela Royal , [facility] [address],[place] [address] 01/02/2021 09:35:53 01/05/2021 14:51:56 Pain in pelvis 46974644 R10.2 TVUS wnl today We agreed to set up CT scan appt for further evaluation & decide if need additional referral such as GI/Urology etc. ??IC/PBS?? ? as she is a smoker and Hx of Endometrio sis. Nightly Prometrium as does not feel she tolerated POP's in the past. We can see if this helps frequency of cysts but need to consider MD consult if this continues to be an issue of recurrent ovarian cysts for her which is the only source of pelvic pain. Denies Hx of DVT/PE. On daily ASA for heart health. Use meloxicam sparingly as she is also on daily ASA. Couple meloxicam with extra strength Tylenol NOTE: MILK INSPECTOR US was performed prior to leaving today. No MILK INSPECTOR related issues noted. I have recommende d a CT scan be performed for further evaluation of these complaints . Patient is to contact office or go to nearest ED/Urgent care if fever >/= 100.1, pain, excessive bleeding, unusual drainage or swelling in area of concern; or experienci ng worsening sx's or new onset of concerning sx's. Understand ing verbalized . All questions answered to patient satisfacti on. Female str ess incontinence 97328750 N39.3 We agreed to refer for consult CLAUDE Additional precaution timbo measures were taken to minimize potential exposure to the Covid-19 virus during this patient s visit, including available hand marketing production coordinator upon arrive, temperatur e check and being asked a series of screening questions. All staff wore face coverings during this encounter, as well as provided additional cleaning and sanitizing of all surfaces, including countertop s, pens, chairs, door handles, light switches, etc, prior to and following the patient s visit. [id number] Mag Castro Jensen [address],[place] [address] 01/02/2021 10:11:27 01/02/2021 10:20:44 Pain in pelvis 01847736 R10.2 [id number] Mikaela Royal , [facility] [address],[place] [address] 06/10/2021 11:24:13 06/10/2021 13:52:29 Gynecologic examination 36055153 Z01.419 Suggested Calcium with Vitamin D 1200-1500m g daily. Patient advised to get an annual flu shot in the fall and she could obtain at [facility] or [facility] clinic. Also to obtain TDap vaccinatio n if you have not had one in the last 10 years. Recommend yearly mammograms . Encouraged monthly self breast exams. Encourage safe sexual practices, to use condoms and limit partners if not already in a monogamous relationsh ip. Engage in daily exercise of low impact aerobic exercise 45-60 minutes 4-5 times weekly. Avoid tobacco and illicit drugs as well as using moderation with alcohol intake less than 1-2 8 oz beverages daily. This lifestyle behavior pattern will lead to less health conditions and longer life span. If BMI greater than 25 weight watchers or dietary consult advised. All questions have been answered. Patient appears to understand informatio n, but if you have any questions please call or respond to this email. Pap/hpv d/c per asccp unless otherwie indicatedD ecline std screenNo issues or concerns except breast tenderness . Mastodynia of bilateral breasts [id number] 0868955 N64.4 Z12.31 Significia nt mastodynia found on exam today present x 2-3mos.Marbella ts to put bra on.Has breast implants.E xam was otherwise wnl except for tenderness all quadrants both side.We agreed on diagnostic mammo & possible breast referral.S he is a smoker, has breast implants, hx of partial hyst for endometrio sis; not on HRT.Neg fam hx of breast cancers.St art evening primrose oil. Menopausal syndrome 1237 89889 N95.1 Hx of smoker but youngSome hot flashes & night sweats.Torey l get breast imaging then decide direction. [id number] LADI Pearl Jensen [address] [address] 07/26/2023 12:17:52 07/26/2023 14:15:02 Pain in pelvis 90008727 R10.2 This patient is a 43 -year-old female with pelvic pain. We have agreed to complete the evaluation with pelvic ultrasound . The patient will return after the pelvic ultrasound to discuss those findings and to develop a treatment plan. A comprehens radha history and physical exam was performed today. We spent over 25 minutes face-to-fa ce. The patient was given precaution s. She will contact clinic if pelvic pain increases in frequency or intensity. Also notify clinic of any new symptoms associated with pelvic pain. She does not appear to have an acute pelvic infection today, but was asked to contact us Immediatel y with nausea, vomiting, fever, chills. gc/ct/tric h testing sentpelvic u/s orderedenc ouraged continued f/u with GI - as suspect symptoms are at least partially GI relatedC for pelvic u/s and u/s f/u [id number] Suyapa Salgado Jensen [address] [address] 08/03/2023 12:37:40 08/03/2023 13:34:48 Pain in pelvis 91266308 R10.2 [id number] LADI Pearl Jensen [address] [address] 08/05/2023 10:44:26 08/05/2023 11:31:26 Abdominal pain 45399846 R10.9 Reviewed updated TVUS - normal, normal appearing ovariesElidia garcia source of pain not identified She was recently diagnosed with gastropare sisshe has f/u with GI scheduled - encouraged continue f/uprecaut ions reviewed with patient Time spent in visit is a total of 18 mins with at least 50% of visit consisting of counseling and review of plan of care. Irregular bowel habits [id number] R19.4 Health Concerns Section Related Observation LastModified by Organization Detai ls LastModified Time None Recorded Concern Status LastModified by Organization Details LastModified Time None Recorded Advance Directives Directive N: Payers Encounter Date Sequence Insurance Name Policy Number Policy Artis Covered Member ID Artis Member ID Guarantor Name 01/02/2021 1 [facility] (MEDICARE REPLACEMENT/A DVANTAGE - HMO) [id number] Mirian B Myles [id number] Mirian B Myles 01/02/2021 2 [place] [facility] [place] Mirian B B [place] [id number] Mirian B Myles 06/10/2021 2 [place] [facility] [place] Mirian B B My[place] [id number] Mirian B Myles 06/10/2021 1 [facility] (MEDICARE REPLACEMENT/A DVANTAGE - PPO) [id number] Mirian B Myles [id number] Mirian B [place] 07/26/2023 2 [place] [facility] [place] Mirian B B [place] [id number] Mirian B [place] 07/26/2023 1 [facility] (MEDICARE REPLACEMENT/A DVANTAGE - PPO) [id number] Mirian B [place] [id number] Mirian B [place] 08/03/2023 2 [place] [facility] [place] Mirian B B [place] [id number] Mirian B Myles 08/03/2023 1 [facility] (MEDICARE REPLACEMENT/A DVANTAGE - PPO) [id number] Mirian B Myles [id number] Mirian B Myles 08/05/2023 2 [place] [facility] [place] Mirian B B [place] [id number] Mirian B [place] 08/05/2023 1 [facility] (MEDICARE REPLACEMENT/A DVANTAGE - PPO) [id number] Mirian B [place] [id number] Mirian B [place] Notes Date Note Type Note Provider Name and Address Organization Details Recorded Time 01/02/2021 text/html Beer-Pelvic PainReported bypatient.Location:lo wer abdominal; mid pelvis Onset/Timing:>6 months; intermittent episodes lasting:; Started 04/2019 after partial hysterectomy by Dr. Sherri paulson for ovarian cysts & Endometriosis Episodes could last 24hrs to 30mins It is usually in area of right adnexa; states she is usually fine but when has a cyst then my pain starts up. Duration:intermittent Quality:aching; cramping; Does not have intercourse when these episodes come on. Severity:mild; interferes with normal activities Context:unrelated to menstrual cycle; history of ovarian cysts; history of kidney stones; history of hysterectomy; history of endometriosis Alleviating Factors:heat; rest Aggravating Factors:none Associated Symptoms:no chills; no vaginal discharge; no pain with urination; normal emptying of bladder; no feelings of urgency; no sexual abuse; no ectopic pregnancies; no urinary frequency; no vaginal itching or irritation; no dyspareunia;abdominal pain;back pain;constipation;end ometriosisNotes: LADI Canela- [address], [place], [address], [facility] 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 Post-MenopausalReport ed bypatient.Menopausal Symptoms:normal vaginal lubrication;hot flashes Vaginal Bleeding:history of menopause having occurred; no history of post menopausal bleeding Urinary Symptoms:no hematuria; no incontinence; no nocturia; no urinary frequency Vulva:no genital lesion; no vulvar atrophy Vagina:normal vaginal discharge; no vaginal atrophy Breast:no breast lump; no nipple discharge;breast pain(x 2-3mos) Sexual Complaints:no sexual complaints Psychological Symptoms:no depression; no anxiety Preventive Measures:encourage regular mammograms starting age 40; encourage self breast examination; encourage regular exercise; encourage no tobacco use; needs to schedule mammogram Breast tenderness bilaterally ROSETTA Canela [address], [place], [address], [facility] 06/10/2021 12:31:59 07/26/2023 text/html 43yopresents for evaluation of right sided pelvic painsymptoms on and off x 1 yearlower abdominal ache/cramping sensationfeels constantly bloatedfollowing with GI for IBS, has multiple different GI test coming upalternates between constipation and diarrheahx of hyst for endometriosis, bilateral ovaries remainnot SA x 1 yeardenies any vaginal symptomsneg n/v/fneg flu-like symptomsneg urinary symptoms LADI Pearl [address], [place], [address], [facility] 07/26/2023 14:07:54 08/05/2023 text/html 43yopresents for pelvic u/s f/urecently seen GI and diagnosed with gastroparesis LADI Pearl [address], [place], [address], [place] [facility] 08/05/2023 11:28:55 OBGyn Episode Ob Episode Information Episode Created Date Number of Fetuses Patient Bloodtype Patient rh Status Prepregnancy Weight lbs Domestic Partner Domestic Partner Phone Father Name Security Shift Manager Status 05/20/20 20 1 CLOSED Fetus Data First Name Last Name Admitted to NICU Weight (g) Sex Living Outcome Pediatric Complications Fetus ID Race Codes Race Delivery Type [id number] Vaginal Delivery Trip Calculation Initial Trip Date Initial Exam Date Initial Exam Provider Initial Ultrasound Date Last Menstrual Period Date Ultra Sound Weeks Gestation 0 Eighteen To Twenty Week Trip Update Ultra Sound Date Fundal Height At Umbil Quickening Date Ultra Sound Latest Weeks Gestation Final Trip Confirmed By Final Trip Confirmed Date Final Trip Date Ultra Sound Latest Days Gestation 0 0 Menstrual History Last Menstrual Date Menses Monthly On Bcp Conception Prior Menses Frequency Hcg Plus Date Menarche Onset Age Delivery Information Delivery Date Delivery Type Labor Anesthesia Weeks Gestation Incision Type Labor Labor Length Hrs Delivered By Post Complications Tubal Sterilization Discharge Date Comments 6 Discharge Information Feeding Method Contraceptive Method Maternal HG B and HCT Levels
--- OUTSIDE RECORDS SUMMARY | 2025-02-11 16:46 | XMS_ITS | Encounter Summary ---
Author Organization [facility] Address [address] [place] [address] Care Team Providers Care Metal Control Coordinator Name Role Phone Dasha Conway [facility] Primary Care Provider [phone] Encounter Details Date Type Department Care Team (Late st Contact Info) Description 06/29/2022 [employer] Message Enc [facility] [place] [address] [address] [place] [address] [place] [address] [place] [address] [address] [place] [address] Still sick Social History Tobacco Use Types Packs/Day Years [...] Assigned at Female 01/08/2021 9:43 AM SENIOR LICENSING MANAGER Legal Sex Female 5:13 PM CDT Gender Identity Female 01/08/2021 9:43 AM SENIOR LICENSING MANAGER Sexual Orientation Straight 01/08/2021 9: 43 AM SENIOR LICENSING MANAGER COVID-19 Exposure Response Date Recorded In [...] PM CDT Denis Nam RN Active * Because of a [...] Out 10/06/2022 10/06/2022 10/06/2022 1:21 PM SENIOR LICENSING MANAGER COVID-19 Rule Out 10/06/2022 10/06/2022 10/07/2022 3:34 PM SENIOR LICENSING MANAGER COVID-19 Rule Out 09/14/2023 09/14/2023 09/14/2023 3:48 PM CDT COVID-19 Rule Out 11/02/2024 11/02/2024 11/02/2024 4:03 PM SENIOR LICENSING MANAGER Assessment Noted Time PHQ-9 Depression Total Score: 4 05/12/20 3:34 PM CDT documented as of this encounter Care Teams Metal Control Coordinator Relationship Specialty Start Date End Date Dasha Conway, CATTLE INSPECTOR- [address] [place] [id number] PCP - General 11/02/24 documented as of this encounter
--- OUTSIDE RECORDS SUMMARY | 2025-02-11 16:46 | XMS_ITS | Encounter Summary ---
Author Organization [facility] - [facility] Address [address] [place] [address] Care Team Providers Care Hand Bander Name Role Phone Dasha Conway [facility] Primary Care Provider [phone]- [phone] Encounter Details Date Type Department Care Team (Late st Contact Info) Description 06/13/2022 4Techt Message Enc [facility] Medical Group Multispecialty Care - [place] [address] [address] [address] [place] [address] [place] [address] [place] [address] [address] [place] [address] Blood sugar Social History Tobacco [...] Sex Assigned at Female 01/08/2021 9:43 AM IRON MELTER Legal Sex Female 5:13 PM CDT Gender Identity Female 01/08/2021 9:43 AM IRON MELTER Sexual Orientation Straight 01/08/2021 9: 43 AM IRON MELTER COVID-19 Exposure Response Date Recorded In the last 10 days, have asif rodriguez been in contact with someone who was confirmed or suspected to have Coronavirus/COVID-19? No / Unsure 06/13/2022 3:19 PM CDT documented as of this encounter Functional Status * Question Answer Date of Assessment Author Status Do you have serious difficulty walking or climbing stairs? No 06/13/2022 10:59 PM Denis Murphy RN Ac tive * Question Answer Date of Assessment Author Status Do you have difficulty dressing or bathing? No 06/13/2022 10:59 PM Denis Murphy R N Active Because of a physical, mental, or emotional condition, do you have difficulty doing errands alone such as visiting a doctor's office or shopping? No 06/13/2022 10:59 PM Denis Murphy RN Act radha * RETIRED Are you deaf or do you have serious difficulty hearing Answer Date of Assessment Author Status No 01/29/2022 10:15 PM IRON MELTER Acti ve * RETIRED Are you blind or do you have serious difficulty seeing, even when wearing glasses? Answer Date of Assessment Author Status No 01/29/2022 10:15 PM IRON MELTER Acti ve * Do you have serious [...] difficulty concentrating, remembering, or making decisions? No 06/13/2022 10:59 PM Denis Murphy RN [...] perform ADLs independently General No Cary anderson r, Joselito Saez, RN documented as of this encounter Visit Diagnoses Not on filedocumented in this encounter Additional Health Concerns Infection Onset Date Last Indicated Resolved Time 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 06/30/2017 COVID-19 Rule Out 10/06/2022 10/06/2022 10/06/2022 1:21 PM IRON MELTER COVID-19 Rule Out 10/06/2022 10/06/2022 10/07/2022 3:34 PM IRON MELTER COVID-19 Rule Out 09/14/2023 09/14/2023 09/14/2023 3:48 PM CDT COVID-19 Rule Out 11/02/2024 11/02/2024 11/02/2024 4:03 PM IRON MELTER Assessment Noted Time PHQ-9 Depression Total Score: 4 05/12/20 3:34 PM CDT documented as of this encounter Care Teams Hand Bander Relationship Specialty Start Date End Date Dasha Conway, TELECOMMUNICATIONS CLERK- [address] [place] [address] PCP - General 11/02/24 documented as of this encounter
--- OUTSIDE RECORDS SUMMARY | 2025-02-11 16:46 | XMS_ITS | Encounter Summary ---
Author Organization [facility] - [facility] Address [address] [place] [address] Care Team Providers Care Loss Prevention Investigator Name Role Phone Dasha Conway Erlin [facility] Primary Care Provider [phone]- [phone] Encounter Details Date Type Department Care Team (Late st Contact Info) Description 10/20/2022 [employer] Message Enc [facility] Medical Group Multispecialty Care - [place] [address] [address] [address] [place] [address] [place] [address] [place] [address] [address] [place] [address] Mammogram Social History Tobacco Use Types Packs/Day Years Used Date Smoking Tobacco: Some Days Cigarettes 0.3 28 Smokeless Tobacco: Never Comments:tried patches, gum, [...] Sex Assigned at Female 01/08/2021 9:43 AM SUPERVISOR BONDING Legal Sex Female 5:13 PM CDT Gender Identity Female 01/08/2021 9:43 AM SUPERVISOR BONDING Sexual Orientation Straight 01/08/2021 9: 43 AM SUPERVISOR BONDING COVID-19 Exposure Response Date Recorded In the last 10 days, have asif rodriguez been in contact with someone who was confirmed or suspected to have Coronavirus/COVID-19? No / Unsure 10/06/2022 12:33 PM SUPERVISOR BONDING documented as of this encounter Functional Status [...] Time 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 06/30/2017 COVID-19 Rule Out 09/14/2023 09/14/2023 09/14/2023 3:48 PM CDT COVID-19 Rule Out 11/02/2024 11/02/2024 11/02/2024 4:03 PM SUPERVISOR BONDING Assessment Noted Time PHQ-9 Depression Total Score: 4 05/12/20 22 3:34 PM CDT documented as of this encounter Care Teams Loss Prevention Investigator Relationship Specialty Start Date End Date Dasha Conway FNP-STEPH [address] [place] [address] [id number] PCP - General 11/02/24 documented as of this encounter
--- OUTSIDE RECORDS SUMMARY | 2025-02-11 16:46 | XMS_ITS | Encounter Summary ---
Author Organization [facility] - [facility] System Address [address] [place] [address] Care Team Providers Care Hematology Specialist Name Role Phone Dasha Conway [facility] Primary Care Provider [phone]- [phone] Encounter Details Date Type Department Care Team (Late st Contact Info) Description 06/16/2022 [employer] Message Enc [facility] Medical Group Multispecialty Care - [place] [address] [address] [address] [place] [address] [place] [address] [place] [address] [address] [place] [address] Diarrhea Social History Tobacco Use Types Packs/Day Years [...] Assigned at Female 01/08/2021 9:43 AM SUPERVISOR EPOXY FABRICATION Legal Sex Female 5:13 PM CDT Gender Identity Female 01/08/2021 9:43 AM SUPERVISOR EPOXY FABRICATION Sexual Orientation Straight 01/08/2021 9: 43 AM SUPERVISOR EPOXY FABRICATION COVID-19 Exposure Response Date Recorded In the [...] Rule Out 10/06/2022 10/06/2022 10/06/2022 1:21 PM SUPERVISOR EPOXY FABRICATION COVID-19 Rule Out 10/06/2022 10/06/2022 10/07/2022 3:34 PM SUPERVISOR EPOXY FABRICATION COVID-19 Rule Out 09/14/2023 09/14/2023 09/14/2023 3:48 PM CDT COVID-19 Rule Out 11/02/2024 11/02/2024 11/02/2024 4:03 PM SUPERVISOR EPOXY FABRICATION Assessment Noted Time PHQ-9 Depression Total Score: 4 06/22/20 22 3:34 PM CDT documented as of this encounter Care Teams Hematology Specialist Relationship Specialty Start Date End Date Dasha Conway, SHANK SKINNER- [address] [place] [address] PCP - General 11/02/24 documented as of this encounter
--- OUTSIDE RECORDS SUMMARY | 2025-02-11 16:46 | XMS_ITS | Encounter Summary ---
Author Organization [facility] Address [address] [place] [address] Care Team Providers Care Scallop Cutter Name Role Phone Dasha Conway Erlin [facility] Primary Care Provider [phone]- [phone] Encounter Details Date Type Department Care Team (Late st Contact Info) Description 06/15/2022 [employer] Technologyt Message Enc [facility] Medical Group Multispecialty Care - [place] [address] [address] [address] [place] [address] [place] [address] [place] [address] [address] [place] [address] [employer] Social History Tobacco Use Types Packs/Day Years [...] Sex Assigned at Female 01/08/2021 9:43 AM WEBSITE DEVELOPER Legal Sex Female 5:13 PM CDT Gender Identity Female 01/08/2021 9:43 AM WEBSITE DEVELOPER Sexual Orientation Straight 01/08/2021 9: 43 AM WEBSITE DEVELOPER COVID-19 Exposure Response Date Recorded In the [...] 10:59 PM FAUZIAT Denis Nam RN Active documented as of [...] Rule Out 10/06/2022 10/06/2022 10/06/2022 1:21 PM WEBSITE DEVELOPER COVID-19 Rule Out 10/06/2022 10/06/2022 10/07/2022 3:34 PM WEBSITE DEVELOPER COVID-19 Rule Out 09/14/2023 09/14/2023 09/14/2023 3:48 PM CDT COVID-19 Rule Out 11/02/2024 11/02/2024 11/02/2024 4:03 PM WEBSITE DEVELOPER Assessment Noted Time PHQ-9 Depression Total Score: 4 05/12/20 22 3:34 PM CDT documented as of this encounter Care Teams Scallop Cutter Relationship Specialty Start Date End Date Dasha Conway, SALESPERSON [employer]PL[employer]- [address] [place] [address] PCP - General 11/02/24 documented as of this encounter
--- OUTSIDE RECORDS SUMMARY | 2025-02-11 16:46 | XMS_ITS | Encounter Summary ---
Author Organization [facility] - [facility] Address [address] [place] [address] Care Team Providers Care Metal Furniture Assembler Name Role Phone Dasha Conway [facility] Primary Care Provider [phone]- [phone] Encounter Details Date Type Department Care Team (Late st Contact Info) Description 07/27/2022 Servoyt Message Enc [facility] Medical Group Multispecialty Care - [place] [address] [address] [address] [place] [address] [place] [address] [place] [address] [address] [place] [address] [employer] Social History Tobacco Use Types Packs/Day Years [...] Sex Assigned at Female 01/08/2021 9:43 AM TRACK RIDER Legal Sex Female 5:13 PM CDT Gender Identity Female 01/08/2021 9:43 AM TRACK RIDER Sexual Orientation Straight 01/08/2021 9: 43 AM TRACK RIDER COVID-19 Exposure Response Date Recorded In the last 10 days, have asif rodriguez been in contact with someone who was confirmed or suspected to have Coronavirus/COVID-19? Yes 07/22/2022 10:32 AM CDT documented as of this encounter [...] Rule Out 10/06/2022 10/06/2022 10/06/2022 1:21 PM TRACK RIDER COVID-19 Rule Out 10/06/2022 10/06/2022 10/07/2022 3:34 PM TRACK RIDER COVID-19 Rule Out 09/14/2023 09/14/2023 09/14/2023 3:48 PM CDT COVID-19 Rule Out 11/02/2024 11/02/2024 11/02/2024 4:03 PM TRACK RIDER Assessment Noted Time PHQ-9 Depression Total Score: 4 05/12/20 22 3:34 PM CDT documented as of this encounter Care Teams Metal Furniture Assembler Relationship Specialty Start Date End Date Dasha Conway, PRICE ANALYST- [address] [place] [address] PCP - General 11/02/24 documented as of this encounter
--- OUTSIDE RECORDS SUMMARY | 2025-02-11 16:46 | XMS_ITS | Encounter Summary ---
Author Organization [facility] - [facility] Address [address] [place] [address] Care Team Providers Care Stockroom Helper Name Role Phone Dasha Conway Erlin [facility] Primary Care Provider [phone]- [phone] Encounter Details Date Type Department Care Team (Late st Contact Info) Description 10/08/2022 [employer] Message Enc [facility] Medical Group Multispecialty Care - [place] [address] [address] [address] [place] [address] [place] [address] [place] [address] [address] [place] [address] Hands and feet Social History Tobacco Use Types Packs/Day Years [...] Sex Assigned at Female 01/08/2021 9:43 AM SHIPPER Legal Sex Female 5:13 PM CDT Gender Identity Female 01/08/2021 9:43 AM SHIPPER Sexual Orientation Straight 01/08/2021 9: 43 AM SHIPPER COVID-19 Exposure Response Date Recorded In the last 10 days, have asif rodriguez been in contact with someone who was confirmed or suspected to have Coronavirus/COVID-19? No / Unsure 10/06/2022 12:33 PM SHIPPER documented as of this encounter Functional Status [...] Rule Out 11/02/2024 11/02/2024 11/02/2024 4:03 PM SHIPPER Assessment Noted Time PHQ-9 Depression Total Score: 4 05/12/20 22 3:34 PM CDT documented as of this encounter Care Teams Stockroom Helper Relationship Specialty Start Date End Date Dasha Conway FNP-STEPH [address] [place] [address] [phone] PCP - General 11/02/24 documented as of this encounter
--- OUTSIDE RECORDS SUMMARY | 2025-02-11 16:46 | XMS_ITS | Encounter Summary ---
Author Organization [facility] - [facility] Address [address] [place] [address] Care Team Providers Care Warranty Clerk Name Role Phone Dasha Conway [facility] Primary Care Provider [phone]- [phone] Encounter Details Date Type Department Care Team (Latest Contact Info) Description 08/20/2022 [employer] Message Enc [facility] Medical Group Multispecialty Care - [place] [address] [address] [address] [place] [address] Curtis Diaz MD [address] [facility] [address] [place] [address] Nausea and vomiting Social History Tobacco Use Types Packs/Day Years [...] Sex Assigned at Female 01/08/2021 9:43 AM SERVER SECURITY ADMINISTRATOR Legal Sex Female 5:13 PM CDT Gender Identity Female 01/08/2021 9:43 AM SERVER SECURITY ADMINISTRATOR Sexual Orientation Straight 01/08/2021 9: 43 AM SERVER SECURITY ADMINISTRATOR COVID-19 Exposure Response Date Recorded In the last 10 days, have yo michael been in contact with someone who was confirmed or suspected to have Coronavirus/COVID-19? No / Unsure 08/18/2022 12:50 PM CDT documented as of this encounter [...] Rule Out 10/06/2022 10/06/2022 10/06/2022 1:21 PM SERVER SECURITY ADMINISTRATOR COVID-19 Rule Out 10/06/2022 10/06/2022 10/07/2022 3:34 PM SERVER SECURITY ADMINISTRATOR COVID-19 Rule Out 09/14/2023 09/14/2023 09/14/2023 3:48 PM CDT COVID-19 Rule Out 11/02/2024 11/02/2024 11/02/2024 4:03 PM SERVER SECURITY ADMINISTRATOR Assessment Noted Time PHQ-9 Depression Total Score: 4 05/12/20 3:34 PM CDT documented as of this encounter Care Teams Warranty Clerk Relationship Specialty Start Date End Date Dasha Conway, CERTIFIED MARINE MECHANIC- [address] [place] [address] PCP - General 11/02/24 documented as of this encounter
--- OUTSIDE RECORDS SUMMARY | 2025-02-11 16:46 | XMS_ITS | CONTINUITY OF CARE DOCUMENT ---
Author Name rahel mcginnis Address Unknown Organization [facility] Address [address] [facility] [address] [place] [address] Phone [phone] Care Team Providers Care Supervisor Dials Name Role Phone Javy James MD Unavailable [phone] Javy James MD Unavailable [phone] DARREL CLARK, TARA Unavailable [phone] PROBLEMS Condition Status Date Provider Notes IRON DEFICIENCY active Javy James MD Vitamin D deficiency active Javy Lu PREDIABETES active Javy James MD Overweight active Javy James MD Schizoaffective disorder active Javy smith MD Palpitations;NML TSH active Javy Lu ? Sleep apnea active Javy James MD Diastolic dysfunction and lvh active Javy James MD B12 deficiency with macrocytois active Dina James MD nml folate Hypertriglyceridemia active Javy Lu Hyperlipidemia active Javy James MD Screening active Javy James MD Chest pain-type to be determined active Rodrick James MD Tobacco dependence, continuous active Marcy James MD Asthma active Javy James MD ENCOUNTERS Date Type Provider Location Encounter Diag nosis - In-person encounter Office Visit Javy James MD [facility] AsthmaTobacco dependence, continuousChest pain-type to be determinedScreeningHyperlip idemiaHypertriglyceridemiaB 12 deficiency with macrocytoisDiastolic dysfunction and lvh? Sleep apneaPalpitations;NML TSHSchizoaffective disorderOverweight VITAL SIGNS Date Observation Value Provider Body Mass Index (Ratio) 29.23 kg/m2 Dina James MD blood pressure, resting Yes [facility] oxygen saturation, oximetry 97 % [facility] pulse rate 87 /min [facility] blood pressure, diastolic 60 mm[Hg] Br ittany [facility] blood pressure, systolic 100 mm[Hg] Sammie ttany [facility] height E&M 63 [in_i] [facility] weight E&M 165 [lb_av] [facility] respiratory rate E&M 16 /min [facility] temperature E&M 98.0 [degF] [employer] rogelio ALLERGIES Allergy Name Onset Date Reaction Criticality Status ANTIBIOTICS High Criticality active RESULTS Date Observation Value Provider Reference Range Interpretation Location pro brain natriuretic peptide 32 pg/mL [facility] 0-130 ferritin, serum 92 ng/mL [facility] 15-150 B-12, serum 525 pg/mL [facility] [id number] c-reactive protein, quantitative, serum 3.38 mg/L [facility] 0.00-3.00 High hemoglobin A1C, blood, as % of total hemoglobin 5.8 % [facility] 4.8-5.6 High prothrombin time (patient) 10.2 s [facility] 9.1-12.0 international normalized ratio (INR) 1.0 [facility] 0.8-1.2 microalbumin/creatin ine ratio, urine <22 mg/g creat [facility] 0-29 microalbumin, random, urine <3.0 ug/mL [facility] Not Estab. creatinine, random, urine 13.6 mg/dL [facility] Not Estab. iron saturation percent, serum 22 % [facility] 15-55 iron, serum 75 ug/dL [facility] 27-159 iron binding capacity, unsaturated 259 ug/dL [facility] [phone]/04/ 23 iron binding capacity, total 334 ug/dL [facility] [phone]/04/ 23 free thyroxine index 1.4 [facility] 1.2-4.9 triiodothyronine resin uptake 25 % [facility] 24-39 thyroxine, serum, total 5.6 ug/dL [facility] 4.5-12.0 thyroid stimulating hormone, serum 2.820 u[IU]/mL [facility] 0.450-4.500 lipoprotein, beta, serum, point, quantitative, calculated See report mg/dL [facility] 0-99 very low density lipoproteins See report mg/dL [facility] 5-40 HDL cholesterol, serum 41 mg/dL [facility] >39 triglyceride, serum, random 527 mg/dL [facility] 0-149 High cholesterol, serum 224 mg/dL [facility] 100-199 High basophil count, absolute 0.1 x10E3/uL [facility] 0.0-0.2 Eosinophil Absolute Count 0.2 X10E3/UL [facility] 0.0-0.4 monocyte count, blood, automated 1.0 X10E3/UL [facility] 0.1-0.9 High lymphocyte count, blood, automated 3.4 X10E3/UL [facility] 0.7-3.1 High Absolute Neutrophils 5.9 X10E3/UL [facility] 1.4-7.0 basophils as percent of blood leukocytes 1 % [facility] Not Estab. eosinophils as percent of blood leukocytes 2 % [facility] Not Estab. monocytes as percent of blood leukocytes 9 % [facility] Not Estab. lymphocytes as percent of blood leukocytes 31 % [facility] Not Estab. neutrophils as percent of blood leukocytes 56 % [facility] Not Estab. platelet count 255 X10E3/UL [facility] [phone]/04/ 23 red blood cell distribution width 12.1 % [facility] 11.7-15.4 mean corpuscular hemoglobin concentration, RBC 33.4 G/DL [facility] 31.5-35.7 mean corpuscular hemoglobin, RBC 32.4 pg [facility] 26.6-33.0 mean corpuscular volume, RBC 97 fL [facility] 79-97 hematocrit, blood 43.1 % [facility] 34.0-46.6 hemoglobin, blood 14.4 g/dL [facility] 11.1-15.9 erythrocyte (RBC) count 4.44 X10E6/UL [facility] 3.77-5.28 leukocyte count, blood 10.7 X10E3/UL [facility] 3.4-10.8 alanine aminotransferase (SGPT), serum 15 1/L [facility] 0-32 aspartate aminotransferase (SGOT), serum 16 1/L [facility] 0-40 alkaline phosphatase, serum 71 1/L [facility] 39-117 bilirubin, serum, total <0.2 mg/dL [facility] 0.0-1.2 albumin/globulin ratio, serum 1.5 [facility] 1.2-2.2 globulin, serum 3.1 [facility] 1.5-4.5 albumin, serum 4.5 g/dL [facility] 3.8-4.8 protein, total, serum 7.6 g/dL [facility] 6.0-8.5 calcium, serum 9.7 mg/dL [facility] carbon dioxide, venous blood 19 mmol/L [facility] 20-29 Low chloride, serum 98 mmol/L [facility] 96-106 potassium, serum 3.9 mmol/L [facility] 3.5-5.2 sodium, serum 141 mmol/L [facility] 083-173 2575/04/ 23 urea nitrogen/creatinine ratio, serum 8 [facility] 9-23 Low eGFR if 86 mL/min/{1. 73_m2} [facility] >59 eGFR if not 75 mL/min/{1. 73_m2} [facility] >59 creatinine, serum 0.96 mg/dL [facility] 0.57-1.00 urea nitrogen, blood 8 mg/dL [facility] 6-20 blood glucose, random 178 mg/dL [facility] 65-99 High HISTORY OF MEDICATION USE Medication Status Instructions Dates Provider Indications Com ments METFORMIN HCL 500 MG ORAL TABLET active ONE A DAY Javy James MD CRESTOR 20 MG ORAL TABLET active ONE TAB. DAILY Javy James MD FERROUS SULFATE 325 (65 FE) MG ORAL TABLET active ONE PER DAY Javy James MD VITAMIN D (ERGOCALCIFEROL) 30425 UNIT ORAL CAPSULE active one capsule by mouth weekly Javy James MD ASPIRIN 325 MG ORAL TABLET active ONE TAB. DAILY Javy James MD CARAFATE 1 GM/10ML ORAL SUSPENSION active 10 mls 4 times a day Javy James MD VITAMIN B-12 1000 MCG ORAL TABLET active One tablet daily Javy James MD DULERA 200-5 MCG/ACT INHALATION AEROSOL active 2 puffs 2x daily Adri Block PROAIR HFA 108 (90 BASE) MCG/ACT INHALATION AEROSOL SOLUTION active INHALE 2 PUFFS PO Q 4 TO 6 H PRF SOB /WHEEZING Adri Block #8.5, 16 days supply, Prescribed by SHERLY BANDA, Filled 12/31/2019 HYDROMORPHONE HCL 2 MG ORAL TABLET active TK 1 T PO Q 12 H PRF PAIN Adri Block #60, 30 days supply, Prescribed by TARA ROJO, Filled 02/05/2020 CYCLOBENZAPRINE HCL 10 MG ORAL TABLET active 1 tab 3x daily Adri Block #90, 30 days supply, Prescribed by MARY JO, Filled 02/05/2020 COLCHICINE 0.6 MG ORAL TABLET active TK 1 T PO BID Adri Block #60, 30 days supply, Prescribed by TARA ROJO, Filled 02/05/2020 PROPRANOLOL HCL ER 60 MG ORAL CAPSULE EXTENDED RELEASE 24 HOUR active TK 1 C PO QPM Adri Block #90, 90 days supply, Prescribed by TARA ROJO, Filled 02/20/2020 FLOVENT HFA 110 MCG/ACT INHALATION INHALER active INL 2 PFS PO Q 12 HOURS. RINSE AND SPIT AFTER EACH U Dari Block #12, 30 days supply, Prescribed by SHERLY BANDA, Filled 02/20/2020 AMPHETAMINE-DEXTROA MPHET ER 30 MG ORAL CAPSULE EXTENDED RELEASE 24 HOUR active TK 1 C PO QD IN THE MORNING Adri Block #30, 30 days supply, Prescribed by GABRIELLE KIRAN, Filled 02/26/2020 STIOLTO RESPIMAT 2.5-2.5 MCG/ACT INHALATION AEROSOL SOLUTION active INL 2 PFS PO D Adri Block #4, 30 days supply, Prescribed by TARA ROJO, Filled 02/27/2020 QUETIAPINE FUMARATE 300 MG ORAL TABLET active 1 mtab at bed Adri Block #30, 30 days supply, Prescribed by GABRIELLE KIRAN, Filled 03/11/2020 LORAZEPAM 2 MG ORAL TABLET active 1 tab 3x daily prn Adri Block #90, 30 days supply, Prescribed by GABRIELLE KIRAN, Filled 03/11/2020 VRAYLAR 4.5 MG ORAL CAPSULE active 1 tab daily Adri Block #30, 30 days supply, Prescribed by GABRIELLE KIRAN, Filled 03/12/2020 SOCIAL HISTORY Date Observation Value Provider smoking/tobacco cess ation, patient education and counseling yes Javy James MD social history E&M S moking History: P atient currently smokes every day. Javy James MD social history reviewed E&M revi ewed - no changes required Javy James MD alcohol use no Adri Valdes smoking history, tot al pack/day 1 Adri Valdes cigarette use yes Adri Lucio smoking status Current every day smoker B dov Valdes FAMILY HISTORY Family Member Condition Mother Family History of Co ngestive Heart Failure: Father Family History of Di abetes: INSURANCE PROVIDERS Payer name Policy type / Coverage type [place] red democrat ID [facility] Other [facility] MEDICARE ADVANTAGE ([facility] COMPLETE PPO) Other [id number] [facility] Medicaid 1 [id number] ADVANCE DIRECTIVES Name Date DISCUSSED - NO DECISION MADE TREATMENT PLAN Date Name Performer :nml pro Javy James MD :NML UACR Javy James MD Javy James MD Cardiology Javy James MD Cardiology:sx Javy James MD Cardiology Javy James MD Cardiology Javy James MD Cardiology Javy James MD Cardiology Javy James MD Cardiology Javy James MD Cardiology Javy Jamse MD Cardiology Javy James MD Date Name Microalb/Creatinine Urine, Random HEMOGLOBIN A1c PROTHROMBIN TIME WIT H INR COMPREHENSIVE METABO LIC PANEL, W/EGFR PROBNP, N TERMINAL TSH, free T4, total T3 Sleep Study Home CXR- PA/Lat CT, Coronary Calcium Score Stress Routine Holter Monitor 24 Hr Complete Echo VITAMIN B12 Vitamin D, 25-Hydrox y IRON AND TOTAL IRON BINDING CAPACITY FERRITIN CBC (INCLUDES DIFF/P LT) C-REACTIVE PROTEIN LIPID PANEL DLCO - 15863 FRC - 58247 FVC - 86834 HISTORY OF PROCEDURES Procedure Date Procedure Name Provider Procedure Notes S tatus FVC / MVV with bronchodilator - 59529 Javy James MD completed FRC - 95716 Javy James MD complet ed SpO2 w/o 6min walk/titration Javy James MD completed DLCO - 85522 Javy James MD comple jose CT- Coronary CA score Javy James MD completed EKG Javy James MD complete d
--- OUTSIDE RECORDS SUMMARY | 2025-02-11 16:46 | XMS_ITS | Encounter Summary ---
Author Organization [facility] - [facility] Address [address] [place] [address] Care Team Providers Care Mortgage Or Loan Underwriter Name Role Phone Dasha Conway [facility] Primary Care Provider +1- [phone] Encounter Details Date Type Department Care Team (Late st Contact Info) Description 11/01/2022 DotProductt Message Enc [facility] Medical Group Multispecialty Care - [place] [address] [address] [address] [place] [address] Curtis Diaz MD [address] [facility] [address] [place] [address] Blood sugar Social History Tobacco Use Types Packs/Day Years Used Date Smoking Tobacco: Some Days Cigarettes 0.3 28 Smokeless Tobacco: Never Comments:tried patches, gum, lozenges, nicotrol inhaler, auriculotherapy and chantix to quit without success Alcohol Use Standard Drinks/Week Comments Not Currently 0 (1 standard drink = 0.6 oz pur e alcohol) PHQ-2 Answer Date Recorded Patient Health Questionnaire-2 Score 3 11/05/2022 Comments No Sex and Gender Information Value Date Recorded Sex Assigned at Female 01/08/2021 9:43 AM VICE PRESIDENT PHARMACY Legal Sex Female 5:13 PM CDT Gender Identity Female 01/08/2021 9:43 AM VICE PRESIDENT PHARMACY Sexual Orientation Straight 01/08/2021 9: 43 AM VICE PRESIDENT PHARMACY COVID-19 Exposure Response Date Recorded In the last 10 days, have asif rodriguez been in contact with someone who was confirmed or suspected to have Coronavirus/COVID-19? No / Unsure 10/06/2022 12:33 PM VICE PRESIDENT PHARMACY documented as of this encounter Functional Status [...] Rule Out 11/02/2024 11/02/2024 11/02/2024 4:03 PM VICE PRESIDENT PHARMACY Assessment Noted Time PHQ-9 Depression Total Score: 4 05/12/20 3:34 PM CDT documented as of this encounter Care Teams Mortgage Or Loan Underwriter Relationship Specialty Start Date End Date Dasha Conway FNP-BC [address] [place] [address] PCP - General 11/02/24 documented as of this encounter
--- OUTSIDE RECORDS SUMMARY | 2025-02-11 16:46 | XMS_ITS | Encounter Summary ---
Author Organization [facility] - [facility] Address [address] [place] [address] Care Team Providers Care Audio Visual Aids Director Name Role Phone Dasha Conway [facility] Primary Care Provider +1- [phone] Encounter Details Date Type Department Care Team (Late st Contact Info) Description 06/23/2022 OptiWi-fit Message Enc [facility] Medical Group Multispecialty Care - [place] [address] [address] [address] [place] [address] Curtis Diaz MD [address] [facility] [address] [place] [address] Liver pain? Social History Tobacco Use Types Packs/Day Years [...] Sex Assigned at Female 01/08/2021 9:43 AM PATIENT SERVICES MANAGER Legal Sex Female 5:13 PM CDT Gender Identity Female 01/08/2021 9:43 AM PATIENT SERVICES MANAGER Sexual Orientation Straight 01/08/2021 9: 43 AM PATIENT SERVICES MANAGER COVID-19 Exposure Response Date Recorded In [...] Rule Out 10/06/2022 10/06/2022 10/06/2022 1:21 PM PATIENT SERVICES MANAGER COVID-19 Rule Out 10/06/2022 10/06/2022 10/07/2022 3:34 PM PATIENT SERVICES MANAGER COVID-19 Rule Out 09/14/2023 09/14/2023 09/14/2023 3:48 PM CDT COVID-19 Rule Out 11/02/2024 11/02/2024 11/02/2024 4:03 PM PATIENT SERVICES MANAGER Assessment Noted Time PHQ-9 Depression Total Score: 4 05/12/20 3:34 PM CDT documented as of this encounter Care Teams Audio Visual Aids Director Relationship Specialty Start Date End Date Dasha Conway, GIMP TACKER- [address] [place] [address] [id number] PCP - General 11/02/24 documented as of this encounter
--- OUTSIDE RECORDS SUMMARY | 2025-02-11 16:46 | XMS_ITS | Encounter Summary ---
Author Organization [facility] System Address [address] [place] [address] Care Team Providers Care Supervisor Metal Fabricating Name Role Phone Dasha Conway [facility] Primary Care Provider +1- [phone] Encounter Details Date Type Department Care Team (Late st Contact Info) Description 07/31/2022 Sage Telecomt Message Enc [facility] Medical Group Multispecialty Care - [place] [address] [address] [address] [place] [address] [place] [address] [place] [address] [address] [place] [address] Ashlie Social History Tobacco Use Types Packs/Day Years [...] Sex Assigned at Female 01/08/2021 9:43 AM LENS GRINDER APPRENTICE Legal Sex Female 5:13 PM CDT Gender Identity Female 01/08/2021 9:43 AM LENS GRINDER APPRENTICE Sexual Orientation Straight 01/08/2021 9: 43 AM LENS GRINDER APPRENTICE COVID-19 Exposure Response Date Recorded In the last 10 days, have asif rodriguez been in contact with someone who was confirmed or suspected to have Coronavirus/COVID-19? No / Unsure 08/02/2022 10:50 PM CDT documented as of this encounter [...] Status No 06/13/2022 10:59 PM CDT Denis Nma RN Active documented as of this encounter [...] Rule Out 10/06/2022 10/06/2022 10/06/2022 1:21 PM LENS GRINDER APPRENTICE COVID-19 Rule Out 10/06/2022 10/06/2022 10/07/2022 3:34 PM LENS GRINDER APPRENTICE COVID-19 Rule Out 09/14/2023 09/14/2023 09/14/2023 3:48 PM CDT COVID-19 Rule Out 11/02/2024 11/02/2024 11/02/2024 4:03 PM LENS GRINDER APPRENTICE Assessment Noted Time PHQ-9 Depression Total Score: 4 05/12/20 3:34 PM CDT documented as of this encounter Care Teams Supervisor Metal Fabricating Relationship Specialty Start Date End Date Dasha Conway, BARREL RIFLER OPERATOR- [address] [place] [address] [phone] PCP - General 11/02/24 documented as of this encounter
--- OUTSIDE RECORDS SUMMARY | 2025-02-11 16:46 | XMS_ITS | Encounter Summary ---
Author Organization [facility] Address [address] [place] [address] Care Team Providers Care Payroll Accounting Specialist Name Role Phone Dasha Conway [facility] Primary Care Provider +1- [phone] Encounter Details Date Type Department Care Team (Late st Contact Info) Description 06/03/2022 IGI LABORATORIEShart Message Enc [facility] Medical Group Multispecialty Care - [place] [address] [address] [address] [place] [address] [place] [address] [place] [address] 157 [place] [address] Yeast infection Social History Tobacco Use Types Packs/Day [...] Sex Assigned at Female 01/08/2021 9:43 AM INFLATED BALL MOLDER Legal Sex Female 5:13 PM CDT Gender Identity Female 01/08/2021 9:43 AM INFLATED BALL MOLDER Sexual Orientation Straight 01/08/2021 9: 43 AM INFLATED BALL MOLDER COVID-19 Exposure Response Date Recorded In the last 10 days, have yo michael been in contact with someone who was confirmed or suspected to have Coronavirus/COVID-19? No / Unsure 06/04/2022 9:36 AM CDT documented as of this encounter Functional Status * RETIRED Are you deaf or do you have serious difficulty hearing Answer Date of Assessment Author Status No 01/29/2022 10:15 PM INFLATED BALL MOLDER Acti ve * RETIRED Are you blind or do you have serious difficulty seeing, even when wearing glasses? Answer Date of Assessment Author Status No 01/29/2022 10:15 PM INFLATED BALL MOLDER Acti ve * Do you have serious [...] Rule Out 10/06/2022 10/06/2022 10/06/2022 1:21 PM INFLATED BALL MOLDER COVID-19 Rule Out 10/06/2022 10/06/2022 10/07/2022 3:34 PM INFLATED BALL MOLDER COVID-19 Rule Out 09/14/2023 09/14/2023 09/14/2023 3:48 PM CDT COVID-19 Rule Out 11/02/2024 11/02/2024 11/02/2024 4:03 PM INFLATED BALL MOLDER Assessment Noted Time PHQ-9 Depression Total Score: 4 05/12/20 3:34 PM CDT documented as of this encounter Care Teams Payroll Accounting Specialist Relationship Specialty Start Date End Date Dasha Conway FNP-STEPH [address] [place], [place] [phone] PCP - General 11/02/24 documented as of this encounter
--- OUTSIDE RECORDS SUMMARY | 2025-02-11 16:46 | XMS_ITS | Encounter Summary ---
Author Organization [facility] - [facility] Address [address] [place] [address] Care Team Providers Care Certified Tumor Registrar Name Role Phone Dasha Conway [facility] Primary Care Provider +1- [phone] Encounter Details Date Type Department Care Team (Late st Contact Info) Description 11/09/2022 AddIn Socialt Message Enc [facility] Medical Group Multispecialty Care - [place] [address] [address] [address] [place] [address] [place] [address] [place] [address] 157 [place] [address] A1c Social History Tobacco Use Types Packs/Day Years [...] Sex Assigned at Female 01/08/2021 9:43 AM CLAY BURNER Legal Sex Female 5:13 PM CDT Gender Identity Female 01/08/2021 9:43 AM CLAY BURNER Sexual Orientation Straight 01/08/2021 9: 43 AM CLAY BURNER COVID-19 Exposure Response Date Recorded In the last 10 days, have asif rodriguez been in contact with someone who was confirmed or suspected to have Coronavirus/COVID-19? No / Unsure 11/05/2022 9:02 AM CLAY BURNER documented as of this encounter Functional Status [...] Rule Out 11/02/2024 11/02/2024 11/02/2024 4:03 PM CLAY BURNER Assessment Noted Time PHQ-9 Depression Total Score: 11 022 12:00 PM CLAY BURNER documented as of this encounter Care Teams Certified Tumor Registrar Relationship Specialty Start Date End Date Dasha Conway FNP-BC [address] [place] [address] PCP - General 11/02/24 documented as of this encounter
--- OUTSIDE RECORDS SUMMARY | 2025-02-11 16:46 | XMS_ITS | Encounter Summary ---
Author Organization [facility] - [facility] Address [address] [place] [address] Care Team Providers Care Custom Bike Builder Name Role Phone Dasha Conway [facility] Primary Care Provider +1- [phone] Encounter Details Date Type Department Care Team (Late st Contact Info) Description 07/21/2022 Mixamot Message Enc [facility] Medical Group Multispecialty Care - [place] [address] [address] [address] [place] [address] [place] [address] [place] [address] 157 [place] [address] Covid Social History Tobacco Use Types Packs/Day [...] Sex Assigned at Female 01/08/2021 9:43 AM THIRD SHIFT LIEUTENANT Legal Sex Female 5:13 PM CDT Gender Identity Female 01/08/2021 9:43 AM THIRD SHIFT LIEUTENANT Sexual Orientation Straight 01/08/2021 9: 43 AM THIRD SHIFT LIEUTENANT COVID-19 Exposure Response Date Recorded In the [...] Rule Out 10/06/2022 10/06/2022 10/06/2022 1:21 PM THIRD SHIFT LIEUTENANT COVID-19 Rule Out 10/06/2022 10/06/2022 10/07/2022 3:34 PM THIRD SHIFT LIEUTENANT COVID-19 Rule Out 09/14/2023 09/14/2023 09/14/2023 3:48 PM CDT COVID-19 Rule Out 11/02/2024 11/02/2024 11/02/2024 4:03 PM THIRD SHIFT LIEUTENANT Assessment Noted Time PHQ-9 Depression Total Score: 4 05/12/20 22 3:34 PM CDT documented as of this encounter Care Teams Custom Bike Builder Relationship Specialty Start Date End Date Dasha Conway, [facility]- [address] [place] [address] PCP - General 11/02/24 documented as of this encounter
--- OUTSIDE RECORDS SUMMARY | 2025-02-11 16:46 | XMS_ITS | Encounter Summary ---
Author Organization [facility] Address [address] [place] [address] Care Team Providers Care Returned Materials Inspector Name Role Phone Dasha Conway Erlin [facility] Primary Care Provider +1- [phone] Encounter Details Date Type Department Care Team (Late st Contact Info) Description 10/10/2022 built.iot Message Enc [facility] Medical Group Multispecialty Care - [place] [address] [address] [address] [place] [address] [place] [address] [place] [address] 157 [place] [address] Yeast infection Social History Tobacco [...] Sex Assigned at Female 01/08/2021 9:43 AM OBEDIENCE TRAINER Legal Sex Female 5:13 PM CDT Gender Identity Female 01/08/2021 9:43 AM OBEDIENCE TRAINER Sexual Orientation Straight 01/08/2021 9: 43 AM OBEDIENCE TRAINER COVID-19 Exposure Response Date Recorded In the last 10 days, have asif rodriguez been in contact with someone who was confirmed or suspected to have Coronavirus/COVID-19? No / Unsure 10/06/2022 12:33 PM OBEDIENCE TRAINER documented as of this encounter Functional Status [...] Rule Out 11/02/2024 11/02/2024 11/02/2024 4:03 PM OBEDIENCE TRAINER Assessment Noted Time PHQ-9 Depression Total Score: 4 05/12/20 22 3:34 PM CDT documented as of this encounter Care Teams Returned Materials Inspector Relationship Specialty Start Date End Date Dasha Conway FNP-STEPH [address] [place] [address] [phone] PCP - General 11/02/24 documented as of this encounter
--- OUTSIDE RECORDS SUMMARY | 2025-02-11 16:46 | XMS_ITS | Encounter Summary ---
Author Organization [facility] - [facility] Address [address] [place] [address] Care Team Providers Care Psychiatric Nurse Practitioner Name Role Phone Dasha Conway [facility] Primary Care Provider +1- [phone] Encounter Details Date Type Department Care Team (Latest Contact Info) Description 06/01/2022 Redstone Logisticst Message Enc [facility] Medical Group Multispecialty Care - [place] [address] [address] [address] [place] [address] [place] [address] [place] [address] 157 [place] [address] Medical marijuana card Social History Tobacco Use Types Packs/Day Years [...] Sex Assigned at Female 01/08/2021 9:43 AM IMPORT/EXPORT ADMINISTRATOR Legal Sex Female 5:13 PM CDT Gender Identity Female 01/08/2021 9:43 AM IMPORT/EXPORT ADMINISTRATOR Sexual Orientation Straight 01/08/2021 9: 43 AM IMPORT/EXPORT ADMINISTRATOR COVID-19 Exposure Response Date Recorded In the last 10 days, have yo michael been in contact with someone who was confirmed or suspected to have Coronavirus/COVID-19? No / Unsure 06/04/2022 9:36 AM CDT documented as of this encounter Functional Status * RETIRED Are you deaf or do you have serious difficulty hearing Answer Date of Assessment Author Status No 01/29/2022 10:15 PM IMPORT/EXPORT ADMINISTRATOR Acti ve * RETIRED Are you blind or do you have serious difficulty seeing, even when wearing glasses? Answer Date of Assessment Author Status No 01/29/2022 10:15 PM IMPORT/EXPORT ADMINISTRATOR Acti ve * Do you have serious [...] Rule Out 10/06/2022 10/06/2022 10/06/2022 1:21 PM IMPORT/EXPORT ADMINISTRATOR COVID-19 Rule Out 10/06/2022 10/06/2022 10/07/2022 3:34 PM IMPORT/EXPORT ADMINISTRATOR COVID-19 Rule Out 09/14/2023 09/14/2023 09/14/2023 3:48 PM CDT COVID-19 Rule Out 11/02/2024 11/02/2024 11/02/2024 4:03 PM IMPORT/EXPORT ADMINISTRATOR Assessment Noted Time PHQ-9 Depression Total Score: 4 05/12/20 3:34 PM CDT documented as of this encounter Care Teams Psychiatric Nurse Practitioner Relationship Specialty Start Date End Date Dasha Conway FNP-STEPH [address] [place], [place] [phone] PCP - General 11/02/24 documented as of this encounter
--- OUTSIDE RECORDS SUMMARY | 2025-02-11 16:46 | XMS_ITS | Encounter Summary ---
Author Organization [facility] - [facility] Address [address] [place] [address] Care Team Providers Care Fountain Vending Mechanic Name Role Phone Dasha Conway [facility] Primary Care Provider +1- [phone] Encounter Details Date Type Department Care Team (Latest Contact Info) Description 07/25/2022 Ipselext Message Enc [facility] Medical Group Multispecialty Care - [place] [address] [address] [address] [place] [address] [place] [address] [place] [address] 157 [place] [address] Psychiatric meds Social History Tobacco Use Types Packs/Day Years [...] Sex Assigned at Female 01/08/2021 9:43 AM INFORMATION SECURITY ARCHITECT Legal Sex Female 5:13 PM CDT Gender Identity Female 01/08/2021 9:43 AM INFORMATION SECURITY ARCHITECT Sexual Orientation Straight 01/08/2021 9: 43 AM INFORMATION SECURITY ARCHITECT COVID-19 Exposure Response Date Recorded In the [...] Rule Out 10/06/2022 10/06/2022 10/06/2022 1:21 PM INFORMATION SECURITY ARCHITECT COVID-19 Rule Out 10/06/2022 10/06/2022 10/07/2022 3:34 PM INFORMATION SECURITY ARCHITECT COVID-19 Rule Out 09/14/2023 09/14/2023 09/14/2023 3:48 PM CDT COVID-19 Rule Out 11/02/2024 11/02/2024 11/02/2024 4:03 PM INFORMATION SECURITY ARCHITECT Assessment Noted Time PHQ-9 Depression Total Score: 4 05/12/20 22 3:34 PM CDT documented as of this encounter Care Teams Fountain Vending Mechanic Relationship Specialty Start Date End Date Dasha Conway, [facility]- [address] [place] [address] PCP - General 11/02/24 documented as of this encounter
--- OUTSIDE RECORDS SUMMARY | 2025-02-11 16:46 | XMS_ITS | Encounter Summary ---
Author Organization [facility] Address [address] [place] [address] Care Team Providers Care Soyfreeze Operator Name Role Phone Dasha Conway [facility] Primary Care Provider +1- [phone] Encounter Details Date Type Department Care Team (Late st Contact Info) Description 08/18/2022 TicketBaset Message Enc [facility] Medical Group Multispecialty Care - [place] [address] [address] [address] [place] [address] [place] [address] [place] [address] [address] [place] [address] Gi doc Social History Tobacco Use Types Packs/Day Years [...] Sex Assigned at Female 01/08/2021 9:43 AM ICU SPECIALIST Legal Sex Female 5:13 PM CDT Gender Identity Female 01/08/2021 9:43 AM ICU SPECIALIST Sexual Orientation Straight 01/08/2021 9: 43 AM ICU SPECIALIST COVID-19 Exposure Response Date Recorded In the [...] Rule Out 10/06/2022 10/06/2022 10/06/2022 1:21 PM ICU SPECIALIST COVID-19 Rule Out 10/06/2022 10/06/2022 10/07/2022 3:34 PM ICU SPECIALIST COVID-19 Rule Out 09/14/2023 09/14/2023 09/14/2023 3:48 PM CDT COVID-19 Rule Out 11/02/2024 11/02/2024 11/02/2024 4:03 PM ICU SPECIALIST Assessment Noted Time PHQ-9 Depression Total Score: 4 05/12/20 3:34 PM CDT documented as of this encounter Care Teams Soyfreeze Operator Relationship Specialty Start Date End Date Dasha Conway, KEYBOARD ACTION ASSEMBLER- [address] [place] [address] PCP - General 11/02/24 documented as of this encounter
--- OUTSIDE RECORDS SUMMARY | 2025-02-11 16:47 | XMS_ITS | Encounter Summary ---
Author Organization [facility] Address [address] [place] [address] Care Team Providers Care Career Development Director Name Role Phone Dasha Conway [facility] Primary Care Provider +1- [phone] Encounter Details Date Type Department Care Team (Late st Contact Info) Description 02/03/2023 Reflectance Medicalt Message Enc [facility] Medical Group Multispecialty Care - [place] [address] [address] [address] [place] [address] [place] [address] [place] [address] [address] [place] [address] Kidneys Social History Tobacco Use Types Packs/Day Years Used Date Smoking Tobacco: Former Cigarettes 0.3 30 0 01/04/1993 - 01/04/2023 Smokeless Tobacco: Never Comments:Counseled by Dr.Naa vargas Alcohol Use Standard Drinks/Week Comments Not Currently 0 (1 standard drink = 0.6 oz pur e alcohol) PHQ-2 Answer Date Recorded Patient Health Questionnaire-2 Score 3 11/05/2022 Comments No Sex and Gender Information Value Date Recorded Sex Assigned at Female 01/08/2021 9:43 AM PUMP RUNNER Legal Sex Female 5:13 PM CDT Gender Identity Female 01/08/2021 9:43 AM PUMP RUNNER Sexual Orientation Straight 01/08/2021 9: 43 AM PUMP RUNNER COVID-19 Exposure Response Date Recorded In the last 10 days, have asif rodriguez been in contact with someone who was confirmed or suspected to have Coronavirus/COVID-19? No / Unsure 02/02/2023 9:05 AM CDT documented as of this encounter [...] Date Author Status No 06/13/2022 10:59 PM FAUZIAT Denis Nam RN Active documented in this [...] Rule Out 11/02/2024 11/02/2024 11/02/2024 4:03 PM PUMP RUNNER Assessment Noted Time PHQ-9 Depression Total Score: 11 022 12:00 PM PUMP RUNNER documented as of this encounter Care Teams Career Development Director Relationship Specialty Start Date End Date Dasha Conway FNP-BC [address] [place] [address] PCP - General 11/02/24 documented as of this encounter
--- OUTSIDE RECORDS SUMMARY | 2025-02-11 16:47 | XMS_ITS | Encounter Summary ---
Author Organization [facility] Address [facility] [place] [address] Care Team Providers Care Asset Recovery Specialist Name Role Phone Dasha Conway [facility] Primary Care Provider +1- [phone] Encounter Details Date Type Department Care Team (Late st Contact Info) Description 07/11/2023 AlchemyAPIt Message Enc [facility] Medical Group Multispecialty Care - [place] [address] [address] [address] [place] [address] [place] [address] [place] [address] [address] [place] [address] Relief Social History Tobacco Use Types Packs/Day Years Used Date Smoking Tobacco: Former Cigarettes 1 30 0 01/04/1993 - 01/04/2023 Smokeless Tobacco: Never Comments:tried patches, gum, lozenges, nicotrol inhaler, auriculotherapy and chantix to quit without success; counseled by Dr Diaz. Alcohol Use Standard Drinks/Week Comments Not Currently 0 (1 standard drink = 0.6 oz pur e alcohol) PHQ-2 Answer Date Recorded Patient Health Questionnaire-2 Score 0 05/16/2023 Comments No Sex and Gender Information Value Date Recorded Sex Assigned at Female 01/08/2021 9:43 AM HEARING HEALTH TECHNICIAN Legal Sex Female 5:13 PM CDT Gender Identity Female 01/08/2021 9:43 AM HEARING HEALTH TECHNICIAN Sexual Orientation Straight 01/08/2021 9: 43 AM HEARING HEALTH TECHNICIAN documented as of this encounter Functional Status [...] Rule Out 11/02/2024 11/02/2024 11/02/2024 4:03 PM HEARING HEALTH TECHNICIAN Assessment Noted Time PHQ-9 Depression Total Score: 11 022 12:00 PM HEARING HEALTH TECHNICIAN documented as of this encounter Care Teams Asset Recovery Specialist Relationship Specialty Start Date End Date Dasha Conway FNP- [address] [place] [address] PCP - General 11/02/24 documented as of this encounter
--- OUTSIDE RECORDS SUMMARY | 2025-02-11 16:47 | XMS_ITS | Encounter Summary ---
Author Organization [facility] Healthcare Address [address] [place] [address] Care Team Providers Care Explosive Ordnance Handler Name Role Phone Donovan Parks MD Unavailable Dasha Conway NP Primary Care Provider [phone] Reason for Visit * Reason Onset Date Comments Abdominal Pain 02/11/2025 Encounter Details Date Type Department Care Team (Late st Contact Info) Description 02/11/[address] [facility] Medical Group Primary Care at [address] [address] Dasha Conway NP [address] [place] [address] [address] [place] [address] Social History Tobacco Use Types Packs/Day Years Used Date Smoking Tobacco: Former Cigarettes 1 31.2 S tarted: 11/21/1993 Smokeless Tobacco: Never Alcohol Use Standard Drinks/Week Comments No 0 (1 standard drink = 0.6 oz pur e alcohol) PHQ-2 Answer Date Recorded PHQ-2 Total Score (If total score is 3 or more points, staff should administer the PHQ-9) 0 10/10/2024 Comments No Sex and Gender Information Value Date Recorded Sex Assigned at Not on file Legal Sex Female 3:37 AM HYDROSTATIC TESTER Gender Identity Female 10/02/2019 1:12 AM HYDROSTATIC TESTER Sexual Orientation Straight 10/02/2019 1: 12 AM HYDROSTATIC TESTER 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 Denies cp at this time. Pt reports she feels like her heart is pounding/beating rapidly at this time. Pt also reports diarrhea, muscle fatigue, weakness. Pt advised to go to ED for further evaluation. Pt agrees to be evaluated in the ED. Advised pt to call back with any further questions/concerns. Message routed to office, FYI- pt advised to go to ED now. Reason for Disposition Heart beating irregularly or very rapidly Protocols used: Chest [id number]-[id number]-PL * Telephone Encounter - Deidre Kaur RN - 02/11/2025 1:11 PM CDT Regarding: Moderate-severe abdominal pain, lightlessness ----- Message from Oksana Larry sent at 02/11/2025 1:10 PM CDT ----- Symptom Based Call Chief Complaint(s): Moderate-severe abdominal pain, lightlessness Duration: 1 week What type of symptom(s) is the patient experiencing? Red Flag. Is the patient concerned they are experiencing a medical emergency requiring an ambulance? No Additional Comments: patient states she's also experiencing extreme fatigue, diarrhea and appetite loss, says that pain also worsens after eating. Does message need to be routed? Yes-Action Needed documented in this encounter Plan of Treatment Not on file documented as of this encounter Visit Diagnoses Not on filedocumented in this encounter Care Teams Explosive Ordnance Handler Relationship Specialty Start Date End Date Dasha Conway NP PCP - General Family Medicine 08/23/24 Donovan Parks MD Referring Physician Gastroenterology 06/12/21 documented as of this encounter
--- OUTSIDE RECORDS SUMMARY | 2025-02-11 16:47 | XMS_ITS | Encounter Summary ---
Author Organization [facility] - [facility] Address [facility] [place] [address] Care Team Providers Care Road Oiler Name Role Phone Daryl Metzger MD Primary Care Provider Bradley Gallegos MD Primary Care Provider [phone] Daryl Metzger MD Primary Care Provider Dasha Vicente [facility] Primary Care Provider [phone] Encounter Details Date Type Department Care Team (Late st Contact Info) Description 08/07/2020 WebRadart Message Enc [facility] Medical Group [facility] Medicine [facility] [address] [place] [id number] Daryl Metzger MD RE: Follow Up/Update Social History Tobacco Use Types Packs/Day Years Used Date Smoking Tobacco: Every Day Cigarettes Smokeless Tobacco: Never Alcohol Use Standard Drinks/Week Comments Not Currently 0 (1 standard drink = 0.6 oz pur e alcohol) PHQ-2 Answer Date Recorded PHQ-2 Score 3 06/23/2020 Comments No Sex and Gender Information Value Date Recorded Sex Assigned at Female 01/08/2021 9:43 AM FLAKE OR SHRED ROLL OPERATOR Legal Sex Female 5:13 PM CDT Gender Identity Female 01/08/2021 9:43 AM FLAKE OR SHRED ROLL OPERATOR Sexual Orientation Straight 01/08/2021 9: 43 AM FLAKE OR SHRED ROLL OPERATOR COVID-19 Exposure Response Date Recorded In the last month, have you been in contact with someone who was confirmed or suspected to have Coronavirus / COVID-19? No / Unsure 08/08/2020 1:13 PM CDT documented as of this encounter Progress Notes * Daryl Metzger MD - 08/08/2020 9:44 AM CDT Can you please contact Myles and just see how she is going if the symptoms are just as bad the only thing I could think of possibly doing is an MRA which utilizes dye and an MRI. It would looked at the small vessels in her brain just to make sure there is no constrictions or issues with small vessels that are causing this issue that would pretty much rule everything out the only other possible diagnoses would be pseudotumor cerebri but she would need a spinal tap for that but usually the vitals are slightly off but her labs EKG chest x-ray imaging have been completely normal documented in this encounter Plan of Treatment Not on file documented as of this encounter Visit Diagnoses Not on filedocumented in this encounter Additional Health Concerns Infection Onset Date Last Indicated Resolved Time 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 06/30/2017 COVID-19 Rule Out 09/01/2020 09/01/2020 09/02/2020 10:06 PM CDT COVID-19 Rule Out 12/16/2020 12/16/2020 12/17/2020 4:31 PM FLAKE OR SHRED ROLL OPERATOR COVID-19 Rule Out 06/05/2021 06/05/2021 06/05/2021 12:31 PM CDT COVID-19 Rule Out 10/23/2021 10/23/2021 10/23/2021 9:25 AM FLAKE OR SHRED ROLL OPERATOR COVID-19 Rule Out 10/23/2021 10/23/2021 10/24/2021 12:21 AM FLAKE OR SHRED ROLL OPERATOR COVID-19 Rule Out 01/15/2022 01/15/2022 01/20/2022 10:53 AM FLAKE OR SHRED ROLL OPERATOR COVID-19 Rule Out 04/21/2022 04/21/2022 04/21/2022 11:42 AM CDT COVID-19 Rule Out 04/21/2022 04/21/2022 04/26/2022 7:02 AM CDT COVID-19 Rule Out 10/06/2022 10/06/2022 10/06/2022 1:21 PM FLAKE OR SHRED ROLL OPERATOR COVID-19 Rule Out 10/06/2022 10/06/2022 10/07/2022 3:34 PM FLAKE OR SHRED ROLL OPERATOR COVID-19 Rule Out 09/14/2023 09/14/2023 09/14/2023 3:48 PM CDT COVID-19 Rule Out 11/02/2024 11/02/202411/0211/02/2024 4:03 PM FLAKE OR SHRED ROLL OPERATOR Assessment Noted Time PHQ-9 Depression Total Score: 13 020 1:12 PM CDT documented as of this encounter Care Teams Road Oiler Relationship Specialty Start Date End Date Daryl Metzger MD PCP - General FAMILY MEDICINE SPORTS MEDICINE 06/23/20 08/12/20 Bradley Carmichael MD [address] [place] [address] [address] [place] [address] PCP - General INTERNAL MEDICINE 08/13/20 08/19/20 Daryl Metzger MD PCP - General FAMILY MEDICINE SPORTS MEDICINE 08/20/20 10/09/20 Dasha Conway FNP- [address] [place] [id number] PCP - General 11/02/24 documented as of this encounter
--- OUTSIDE RECORDS SUMMARY | 2025-02-11 16:47 | XMS_ITS | Encounter Summary ---
Author Organization [facility] - [facility] Address [address] [place] [address] Care Team Providers Care Granite Setter Name Role Phone Dasha Conway [facility] Primary Care Provider [phone] Encounter Details Date Type Department Care Team (Latest Contact Info) Description 01/13/2023 Thismomentt Message Enc [facility] Medical Group Multispecialty Care - [place] [address] [address] [address] [place] [address] [place] [address] [place] [address] [address] [place] [address] Fasting sugar 139 Social History Tobacco Use Types Packs/Day Years [...] Sex Assigned at Female 01/08/2021 9:[address] RAILWAY Legal Sex Female 5:13 PM CDT Gender Identity Female 01/08/2021 9:[address] RAILWAY Sexual Orientation Straight 01/08/2021 9: [address] RAILWAY COVID-19 Exposure Response Date Recorded In the last 10 days, have asif rodriguez been in contact with someone who was confirmed or suspected to have Coronavirus/COVID-19? No / Unsure 01/11/2023 8:[address] RAILWAY documented as of this encounter Functional Status [...] Rule Out 11/02/2024 11/02/2024 11/02/2024 4:[address] RAILWAY Assessment Noted Time PHQ-9 Depression Total Score: 11 022 12:[address] RAILWAY documented as of this encounter Care Teams Granite Setter Relationship Specialty Start Date End Date Dasha Conway FNP-BC [address] [place] [id number] PCP - General 11/02/24 documented as of this encounter
--- OUTSIDE RECORDS SUMMARY | 2025-02-11 16:47 | XMS_ITS | Encounter Summary ---
Author Organization [facility] - [facility] Address [address] [place] [id number] Care Team Providers Care Concrete Batcher Name Role Phone Dasha Conway [facility] Primary Care Provider [phone] Encounter Details Date Type Department Care Team (Latest Contact Info) Description 01/20/2023 Jellit Message Enc [facility] Medical Group Multispecialty Care - [place] [address] [address] [place] [address] [place] [address] [place] [address] [address] [place] [address] Vomiting and sugar Social History Tobacco Use Types Packs/Day [...] Sex Assigned at Female 01/08/2021 9:43 AM TERMINAL BLOCK ASSEMBLER Legal Sex Female 5:13 PM CDT Gender Identity Female 01/08/2021 9:43 AM TERMINAL BLOCK ASSEMBLER Sexual Orientation Straight 01/08/2021 9: 43 AM TERMINAL BLOCK ASSEMBLER COVID-19 Exposure Response Date Recorded In the last 10 days, have asif rodriguez been in contact with someone who was confirmed or suspected to have Coronavirus/COVID-19? No / Unsure 01/11/2023 8:54 AM TERMINAL BLOCK ASSEMBLER documented as of this encounter Functional Status [...] Rule Out 11/02/2024 11/02/2024 11/02/2024 4:03 PM TERMINAL BLOCK ASSEMBLER Assessment Noted Time PHQ-9 Depression Total Score: 11 022 12:00 PM TERMINAL BLOCK ASSEMBLER documented as of this encounter Care Teams Concrete Batcher Relationship Specialty Start Date End Date Dasha Conway FNP-BC [address] [place] [address] PCP - General 11/02/24 documented as of this encounter
--- OUTSIDE RECORDS SUMMARY | 2025-02-11 16:47 | XMS_ITS | Encounter Summary ---
Author Organization [facility] - [facility] Address [address] [place] [address] Care Team Providers Care Service Clerk Name Role Phone Dasha Conway [facility] Primary Care Provider [phone] Encounter Details Date Type Department Care Team (Latest Contact Info) Description 01/17/2023 General Cyberneticst Message Enc [facility] Medical Group Multispecialty Care - [place] [address] [address] [address] [place] [address] [place] [address] [place] [address] [address] [place] [address] morning blood sugars Social History Tobacco Use Types Packs/Day Years [...] Sex Assigned at Female 01/08/2021 9:43 AM RECONDITIONER Legal Sex Female 5:13 PM CDT Gender Identity Female 01/08/2021 9:43 AM RECONDITIONER Sexual Orientation Straight 01/08/2021 9: 43 AM RECONDITIONER COVID-19 Exposure Response Date Recorded In the last 10 days, have asif rodriguez been in contact with someone who was confirmed or suspected to have Coronavirus/COVID-19? No / Unsure 01/11/2023 8:54 AM RECONDITIONER documented as of this encounter Functional Status [...] Rule Out 11/02/2024 11/02/2024 11/02/2024 4:03 PM RECONDITIONER Assessment Noted Time PHQ-9 Depression Total Score: 11 022 12:00 PM RECONDITIONER documented as of this encounter Care Teams Service Clerk Relationship Specialty Start Date End Date Dasha Conway FNP-BC [address] [place] [address] PCP - General 11/02/24 documented as of this encounter
--- OUTSIDE RECORDS SUMMARY | 2025-02-11 16:47 | XMS_ITS | Referral Summary ---
Author Organization [facility] [address] Address [address] [place] [address] Care Team Providers Care Clothes Drier Assembler Name Role Phone Donovan Parks MD Unavailable Dasha Conway NP Primary Care Provider [phone] Encounters Date Type Department Care Team Description 02/11/2025 Nurse Triage [facility] Primary Care at [address] [id number] Dasha Conway NP 02/08/2025 Orders Only [facility] at [address] [place] [phone] Sheba Moya NP Tachycardia (Primary Dx); Palpitations 01/04/2025 2:15 PM HEAVY EQUIPMENT OPERATOR/PAVER Office Visit [facility] at [address] [place] [phone] Sheba Moya NP Pericardial effusion (Primary Dx); Other chest pain; Mixed hyperlipidemia; Family history of cardiovascular disease 01/01/2025 12:44 PM HEAVY EQUIPMENT OPERATOR/PAVER - 01/01/2025 11:59 PM HEAVY EQUIPMENT OPERATOR/PAVER Hospital Encounter [facility] [address] [place] [address] Breast pain Discharge Disposition: Discharge to home or self care from Last 3 Months Allergies Active Allergy Reactions Criticality Noted Date Comments Amoxicillin-Pot Clavulanate Sulfamethoxazole-Trimetho prim Hives Medium 01/31/2022 Cefuroxime Other (See comments) Low 01/23/2024 unknown Cephalexin Hives,Rash High 12/15/2019 Ciprofloxacin Hives Medium 01/23/2024 Clavulanic Acid Hives,Rash High 12/15/2019 Diclofenac Hives Medium 01/23/2024 topical Doxycycline Hives Medium 01/23/2024 Venlafaxine Other (See comments) Low 01/23/2024 Seratonin syndrome Eluxadoline Hives,Rash High 12/15/2019 Erythromycin Hives High 05/07/2019 Levofloxacin Other (See comments) High 04/03/2015 Pt unsure of reaction, told she was allergic Pregabalin Shortness of breath High 01/23/2024 Penicillins Hives Medium 05/07/2019 Phenothiazines Anxiety Medium 11/07/2014 Prednisone Rash Medium 10/16/2019 Ropinirole Nausea & Vomiting,Other (See comments) High 12/27/2014 Causes aims or restless movement throughout body Tremors; parkinson-like symptoms Sitagliptin Other (See comments) Low 01/23/2024 pancreatitis Tramadol Vomiting Low 01/23/2024 Trifluoperazine Other (See comments) Low 01/23/2024 unknown Medications albuterol HFA (PROVENTIL HFA,VENTOLIN HFA) 90 mcg/actuation inhaler Inhale 2 puffs every 6 hours Active acetaminophen (TYLENOL) 500 mg tablet Take 1 tablet (500 mg total) by mouth every 6 (six) hours as needed for pain 2 tabs PRN Active ibuprofen (ADVIL,MOTRIN) 600 mg tablet Take 1 tablet (600 mg total) by mouth every 6 (six) hours as needed for pain Active LORazepam (ATIVAN) 1 mg tablet Take 1 tablet (1 mg total) by mouth 11/02/2024 Active magnesium oxide (MAG-OX) 400 mg (241.3 mg elemental magnesium) tablet Take 1 tablet (400 mg total) by mouth daily 11/02/2024 Active dexAMETHasone (DECADRON) 2 mg tablet 11/04/2024 Active Active Problems Problem Noted Date Diagnosed Date Mixed hyperlipidemia 01/04/2025 Other chest pain 11/06/2024 Assessment & Plan (11/06/2024 3:13 PM HEAVY EQUIPMENT OPERATOR/PAVER): Myocardial ischemia ruled out. Differential also includes costochondritis. She is going to try the Decadron that was prescribed from the 1st emergency room visit. She also was given a short-term supply of lorazepam that I told her she could try as needed at bedtime. I asked her to keep me updated next week on how she is feeling Anxiety 10/10/2024 Assessment & Plan (10/10/2024 9:05 PM HEAVY EQUIPMENT OPERATOR/PAVER): States that she has tried multiple medications in the past and she doesn't like any of them. Doesn't do well with them. Does not wish to try further treatment. Fatigue 10/10/2024 Assessment & Plan (10/10/2024 9:06 PM HEAVY EQUIPMENT OPERATOR/PAVER): Concern for M.S. will get updated MRI brain with contrast. Refer to neurology for her discuss. Vision changes 10/10/2024 Thrush 08/27/2024 Oral pharyngeal candidiasis 08/27/2024 Assessment & Plan (08/27/2024 7:54 AM CDT): She has tried diflucan and itraconazole without improvement. Has had a positive culture with c.glabrata. has tried mouth rinses and clotrimazole troch's. Will refer to ID and ENT. Tinnitus of both ears 08/27/2024 Type 2 diabetes mellitus wit hout complication, without long-term current use of insulin 08/23/2024 Assessment & Plan (10/10/2024 9:03 PM HEAVY EQUIPMENT OPERATOR/PAVER): Stable. Not currently on medication. A1c has been 6.1% . Will continue to monitor Assessment & Plan (08/27/2024 7:48 AM CDT): Well controlled without medication. A1c 6%. Recent labs done at [facility]. MTHFR mutation 01/28/2020 Pericardial effusion 10/04/2019 Overview (10/04/2019): Echo (08/12/18): moderate pericardial effusion with no evidence of tamponade. EF 60-70% Echo (08/22/18) trivial (barely visible) pericardial effusion, EF 50-55% Assessment & Plan (11/06/2024 3:07 PM HEAVY EQUIPMENT OPERATOR/PAVER): Small pericardial effusion seen on echo done at [facility], which appears to be an improvement over previous findings. At the very least it's a stable findings. EF >75% Fibromyalgia 10/02/2019 Overview (12/10/2021): Labs (10/02/19): WBC (15.1), myositis neg. Labs (11/30/21): AST 36, ALT 38, ESR 17, CRP 2.7, neg 14.3.3 eta AVISE (10/02/19): RF equivocal (4.6), anti-cardiolipin (32) AVISE (12/26/2019): +RF (6.6), anti-cardiolipin (33) AVISE (11/30/21): Weak positive anti-cardiolipin IgM (12) Hepatitis negative: 09/2019 XR 12/02/21 R knee: negative SI joints: Mild bilateral SI joint OA B/l hands: negative US right hand/wrist (10/09/19):Mild effusions and power doppler on examination which will have to be correlated clinically. Grade 1 power doppler in the wrist and radial/scaphoid joint. Grade 1 effusion in the 3rd PIP joint. An enlarged median nerve is identified. US right hand/wrist (01/29/20): Mild effusions and power doppler on examination which will have to be correlated clinically. Mild synovial thickening in the 3rd MCP and 2nd PIP joints. Grade 1 power doppler in the wrist and radial/scaphoid joint. Very small grade 1 effusion in the 2nd and 3rd PIP joints. An enlarged median nerve is identified at 0.19 cm2. US left hand/wrist (12/02/21): Moderate synovial thickening and small grade 1 effusions in the 2nd and 3rd PIP joints. Grade 1 power doppler in the wrist and radial/scaphoid joint. An enlarged median nerve at 0.20 cm2 is identified. Effexor - serotonin syndrome Antidepressants - suicidal ideation Gabapentin - failed in the past Lyrica - insomnia, blurry vision, anxiety Flexeril - no benefit; interacts with Dulera per pulm Assessment & Plan (11/06/2024 3:09 PM HEAVY EQUIPMENT OPERATOR/PAVER): Has been told she has has fibromyalgia in the past. Differential includes a fibromyalgia flare. She had received an Rx for Decadron from the ER at [facility] in [place], I encouraged her to go pick that up from the pharmacy and try that this week Assessment & Plan (12/14/2021 11:42 AM HEAVY EQUIPMENT OPERATOR/PAVER): We had started LDN in 03/2020 however patient is not taking this due to no great benefit. Still complaining of severe generalized pain and fatigue worse in the winter months. States dilaudid BID helps her hand pain but we do not Rx narcotic medications. Avoid Cymbalta and amitriptyline as patient reports suicidal ideation with antidepressants in the past. Failed gabapentin and had side effects to Lyrica. Hx of depression and anxiety which is likely contributing to amplified pain complaints. Unfortunately, patient has tried/failed multiple medications for FM and would likely most benefit from tx underlying depression/anxiety however will defer this to her PCP. Will give referral to [facility] PT pain program in [place], [place]. Assessment & Plan (11/30/2021 3:33 PM HEAVY EQUIPMENT OPERATOR/PAVER): Last seen in 03/2020 after being lost to f/u. We had started LDN however patient is no taking this due to no great benefit. Still complaining of severe generalized pain and fatigue worse in the winter months. States dilaudid BID helps her hand pain but we do not Rx narcotic medications. Avoid Cymbalta and amitriptyline as patient reports suicidal ideation with antidepressants in the past. Failed gabapentin and had side effects to Lyrica. Will get updated labs, XR, and hand US as noted below to further evaluate for an inflammatory arthritis. Assessment & Plan (04/15/2020 10:25 AM CDT): Stopped flexeril due to no benefit and potential interaction with Dulera per supervising bailiff. Started LDN 4.5mg daily on 04/12/2020. Denies side effects but also denies any benefit at this time. Still complaining of severe generalized pain, fatigue, and insomnia. States dilaudid BID helps her hand pain. Recommend she follow up with pcp as they were originally prescribing this. Will also give referral to [facility] pain management. Continue LDN 4.5mg daily and give this more time tot take effect. Avoid Cymbalta and amitriptyline as patient reports suicidal ideation with antidepressants in the past. Failed gabapentin and had side effects to Lyrica. Follow up in 4-6 weeks. Sooner if needed. Discussed with Dr. Soler. Assessment & Plan (01/08/2020 3:02 PM HEAVY EQUIPMENT OPERATOR/PAVER): Tolerating flexeril 10mg BID and reports some improvement of her generalized pain. Denies drowsiness. Discussed LDN, however patient would like to discuss with her psychiatrist before pursing this. Increase flexeril 10mg TID. Avoid Cymbalta and amitriptyline as patient reports suicidal ideation with antidepressants in the past. Failed gabapentin and had side effects to Lyrica. Follow up in 3-4 months. Sooner if needed. Seen with Dr. Soler. Assessment & Plan (12/26/2019 10:32 AM HEAVY EQUIPMENT OPERATOR/PAVER): Tolerating tizanidine 4mg TID and notes some improvement of myalgias, however continues to have widespread pain, fatigue, and difficultly sleeping. Will taper off tizanidine due to minimal benefit and start flexeril 10mg qhs. Will taper tizanidine 2mg TID x3 days, then on day 4 take 2mg BID, then on day 5 take 2mg qAM and then start flexeril 10mg qhs that same day. Avoid Cymbalta and amitriptyline as patient reports suicidal ideation with antidepressants in the past. Failed gabapentin and had side effects to Lyrica. Consider low dose naltrexone, however side effects involve suicidal ideation so patient will discuss this with her psychiatrist first. Follow up in 2 weeks. Sooner if needed. Seen with Dr. Zazueta as Dr. Soler is out of office. Assessment & Plan (11/28/2019 12:40 PM HEAVY EQUIPMENT OPERATOR/PAVER): Tolerating tizanidine 2mg BID and feels it improves the myalgias in her back, arms, and knees. Denies side effects. Reported insomnia, blurry vision, and severe anxiety with low dose lyrica. Continues to have significant soft tissue tenderness with light touch. Will increase tizanidine 4mg TID prn pain. Avoid Cymbalta and amitriptyline as patient reports suicidal ideation with antidepressants in the past. Failed gabapentin in the past. Follow up in 4 weeks. Sooner if needed. Assessment & Plan (10/16/2019 4:20 PM HEAVY EQUIPMENT OPERATOR/PAVER): US right hand/wrist (10/09/19):Mild effusions and power doppler on examination which will have to be correlated clinically. Grade 1 power doppler in the wrist and radial/scaphoid joint. Grade 1 effusion in the 3rd PIP joint. An enlarged median nerve is identified. Serologies revealed an elevated WBC (15.1), however other serological testing was unremarkable. Radiographs from previous internet marketing coordinator revealed mild degenerative changes in the lumbar and cervical spine, but were otherwise normal of her hands, feet, and pelvis. Several generalized tender points noted on exam today, however no synovitis. Symptoms did not respond to prednisone. Based on unremarkable work up, her symptoms appear most consistent with fibromyalgia. Will start lyrica 75mg BID. Avoid Cymbalta and amitriptyline as patient reports suicidal ideation with antidepressants in the past. Failed gabapentin in the past. Could always consider a muscle relaxer in the future if needed. Follow up in 6 weeks. Sooner if needed. Seen with Dr. Soler. Assessment & Plan (10/02/2019 4:02 PM HEAVY EQUIPMENT OPERATOR/PAVER): Patient presents with widespread pain in her hands, knees, and feet for the past 3-4 months. Has generalized pruritic, red papules on torso. Reports photosensitivity, pleuritic pains, cough however is a smoker, dry eyes and mouth, and oral ulcers. Currently on prednisone 20mg taper without any improvement of her symptoms. Synovitis with tenderness noted on peripheral joint exam. Soft tissue tenderness noted [id number] back on exam. FHx of 2 sisters with fibromyalgia and mother with psoriatic arthritis. Had x-rays through previous rheum which were scanned into Epic today. Previous serologies were also unremarkable. Symptoms and exam are suspicious for fibromyalgia. Because recent CY was negative per previous internet marketing coordinator, it makes the possibility of SLE less likely. Will order appropriate serologies and a right hand/wrist US to further evaluate. Recommend patient see dermatology for rash. Follow up in 2 weeks. Sooner if needed. Seen with Dr. Soler. COPD (chronic obstructive pulmonary disease) Abnormal thyroid function test 01/03/2018 Assessment & Plan (01/03/2018 4:31 PM HEAVY EQUIPMENT OPERATOR/PAVER): Differential would include euthroid sick syndrome, Subclinical hyperthyroidism Ultrasound Performed normal thyroid ultrasound Will request complete thyroid function tests, including TPO antibodies. It TSH is normal or very mildly low, would indicate subclinical hyperthyroidism, so there would be no indication for treatment Will monitor , follow up in 6 m Factor V Leiden 08/26/2015 Schizoaffective disorder 04/12/2015 Asthma 01/17/2015 Assessment & Plan (11/06/2024 3:09 PM HEAVY EQUIPMENT OPERATOR/PAVER): Differential also includes asthma. She has an albuterol inhaler use p.r.n.. Encouraged her to try the Decadron as prescribed from 1st ER Atypical bipolar affective disorder 08/06/2009 Resolved Problems Problem Noted Date Diagnosed Date Resolved Date Other chronic pancreatitis 11/16/2023 1 Polyarthralgia 12/26/2019 08/23/2024 Overview (12/14/2021): US L hand/wrist (12/02/21): 1) Moderate synovial thickening and small grade 1 effusions in the 2nd and 3rd PIP joints. 2) Grade 1 power doppler in the wrist and radial/scaphoid joint. 3) An enlarged median nerve at 0.20 cm2 is identified. 4) All findings will have to be correlated clinically. 5) No LEFT hand/wrist US available for comparison although in comparison to previous US of the RIGHT hand/wrist from 01/29/20, there is an increase in synovial thickening in the 2nd and 3rd PIP joints although otherwise is unchanged. Assessment & Plan (12/14/2021 11:43 AM HEAVY EQUIPMENT OPERATOR/PAVER): Repeat serologies with [facility] revealed only a weak positive anti-cardiolipin IgM (12) but was otherwise unremarkable for any other autoantibodies. ESR and CRP were WNL and 14.3.3 eta protein was negative. Previous work up is also notable for a negative myositis panel. US of the left hand/wrist (11/2021) revealed mild inflammatory findings and an enlarged median nerve however findings were not significant to suggest an inflammatory arthritis. XR of the bilateral hands and R knee are normal and XR of the b/l SI joints showed mild osteoarthritis. She does have a fhx of mother with psoriatic arthritis and prior exam was suspicious for nail pitting however serologies, XR, and US findings are unremarkable for an inflammatory arthritis at this time. She does have diffuse generalized pain complaints and last exam was concerning for fibromyalgia which is likely the cause of her progressive pain complaints. Unfortunately she has already tried and failed or had s/e to most medications that we would use to tx fibromyalgia. Avoiding regular use of NSAIDs due to hx of blood clots and is currently on Xarelto. Will give referral to [facility] PT pain program. Discussed scheduling f/u in 4 months however there is not much in terms of treatment management that we would be able to offer at this point. Patient spoke with Dr. Soler as well. Assessment & Plan (11/30/2021 3:33 PM HEAVY EQUIPMENT OPERATOR/PAVER): Previously reported photosensitivity, pleuritic pains, cough however is a smoker, dry eyes and mouth, and oral ulcers. Repeat AVISE revealed a low positive RF, however no obvious synovitis noted on exam today and previous US was unremarkable. Symptoms have not responded to steroids (oral or IV) in the past. Diffuse tenderness noted in every joint on exam with questionable synovitis. Nail pitting noted on exam is suspicious for psoriasis. Symptoms and exam are suspicious for fibromyalgia; however, nail pitting and fhx of psoriatic arthritis remains mildly suspicious for an inflammatory arthritis overlap. Will order appropriate serologies, radiographs, and a left hand/wrist US to further evaluate. Follow up in 2 weeks. Sooner if needed. Seen with Dr. Soler. Assessment & Plan (04/15/2020 10:20 AM CDT): Reports photosensitivity, pleuritic pains, cough however is a smoker, dry eyes and mouth, and oral ulcers. Repeat AVISE revealed a low positive RF, however no obvious synovitis noted on exam today and previous US was unremarkable. Symptoms do not respond to steroids. Unlikely symptoms are related to any underlying rheumatological etiology at this time. Assessment & Plan (01/08/2020 1:59 PM HEAVY EQUIPMENT OPERATOR/PAVER): Reports photosensitivity, pleuritic pains, cough however is a smoker, dry eyes and mouth, and oral ulcers. Repeat AVISE revealed a low positive RF, however no obvious synovitis noted on exam today and previous US was unremarkable. Symptoms do not respond to steroids. Assessment & Plan (12/26/2019 10:35 AM HEAVY EQUIPMENT OPERATOR/PAVER): Reports photosensitivity, pleuritic pains, cough however is a smoker, dry eyes and mouth, and oral ulcers. Today reports worsening pleuritic pains as well as brittle hair and nails. Reports joint pain and stiffness in bilateral hands in the mornings and is unable to make a fist. Was on oral and IV steroids in the past without any benefit of her pain. Will repeat serologies as she has several symptoms concerning for a CTD, however suspicion is low as symptoms do not appear to have responded to steroids in the past. Rash 10/02/2019 08/23/2024 Assessment & Plan (12/14/2021 11:09 AM HEAVY EQUIPMENT OPERATOR/PAVER): C/o red, pruritic papules over torso. FHx of mother with psoriatic arthritis. Pictures of rash on back sent via [email or web address] appear hive-like and do not have any erythema or notable scale. Recommend f/u with a product design manager. Assessment & Plan (11/30/2021 3:31 PM HEAVY EQUIPMENT OPERATOR/PAVER): C/o red, pruritic papules over torso. FHx of mother with psoriatic arthritis. Recommend f/u with dermatology. Assessment & Plan (04/15/2020 10:19 AM CDT): Previous exam noted dry flaky, skin on hands with red demarcation around wrists suspicious for psoriasis. Now patient complaining of scaling rash on scalp. FHx of mother with psoriatic arthritis. Assessment & Plan (01/08/2020 1:58 PM HEAVY EQUIPMENT OPERATOR/PAVER): Previous exam noted dry flaky, skin on hands with red demarcation around wrists suspicious for psoriasis. Now patient complaining of scaling rash on scalp. FHx of mother with psoriatic arthritis. Assessment & Plan (12/26/2019 10:21 AM HEAVY EQUIPMENT OPERATOR/PAVER): Previous exam noted dry flaky, skin on hands with red demarcation around wrists suspicious for psoriasis. Now patient complaining of scaling rash on scalp. FHx of mother with psoriatic arthritis. Assessment & Plan (11/28/2019 12:41 PM HEAVY EQUIPMENT OPERATOR/PAVER): Rash improved once prednisone was stopped. Saw product design manager Dr. Evelyn Gonzales who gave patinet triamcinalone cream, however patient has not started this as her rash is mostly on her face now. Previous exam noted dry, flaky skin on hands with red demarcation around wrists which is suspicious for psoriasis. FHx of mother with psoriatic arthritis. Patient given product design manager Dr. Rose's information at previous visit. Assessment & Plan (10/16/2019 1:57 PM HEAVY EQUIPMENT OPERATOR/PAVER): Rash improved once prednisone was stopped. Saw product design manager Dr. Evelyn Gonzales who gave patinet triamcinalone cream, however patient has not started this as her rash is mostly on her face now. Today notes dry, flaky skin on hands with red demarcation around wrists which is suspicious for psoriasis. FHx of mother with psoriatic arthritis. Patient given product design manager Dr. Rose's information for further evaluation. Assessment & Plan (10/02/2019 4:05 PM HEAVY EQUIPMENT OPERATOR/PAVER): Generalized, erythematous papules noted on anterior/posterior torso, upper chest, and neck. Reports rash is pruritic. Currently on prednisone 20mg without benefit and has been on higher doses without benefit. Tried otc hydrocortisone cream and antihistamines without benefit. Recommend patient see dermatology. Anemia 06/15/2019 08/23/2024 IBS (irritable bowel syndrome) 06/15/2019 08/23/2024 Tobacco abuse 06/15/2019 08/23/2024 Vaginal yeast infection 06/15/201901/2024 Hypomagnesemia 06/10/2019 08/23/2024 Major depression 06/10/2019 08/23/2024 Syncope 06/10/2019 08/23/2024 Injury of left knee 04/10/2019 08/23/20 Hematologic disorder 08/23/2015 024 Leukocytosis 08/23/2015 08/23/2024 Endometritis 04/04/2015 08/23/2024 Endometritis following delivery 04/03/2015 08/23/2024 Oligohydramnios antepartum 03/12/2015 1 , normal, incidental 03/07/2015 08/23/2024 Gestational diabetes mellitus, class A2 01/17/2015 08/23/2024 Lower abdominal pain 01/17/2015 024 Post-op pain 08/24/2012 08/23/2024 Dysmenorrhea 08/14/2012 08/23/2024 Endometriosis 08/14/2012 08/23/2024 Immunizations Immunization Administration Dates Next Due Influenza, Quadrivalent, Spl it, Preservative Free, Intramuscular 08/06/2022 Influenza, Unspecified 08/23/2024(Deferr ed: Patient Refused),11/21/2023(Deferred: Patient Refused),10/30/2019,08/26/2015, 015 Pneumococcal Conjugate PCV 13 09/14/2022 Pneumococcal Polysaccharide PPV23 10/09/2020 Tdap 03/13/2015 Social History Tobacco Use Types Packs/Day Years Used Date Smoking Tobacco: Former Cigarettes 1 31.2 S tarted: 11/21/1993 Smokeless Tobacco: Never Tobacco Cessation:Counseling Given: Not Answered Alcohol Use Standard Drinks/Week Comments No 0 (1 standard drink = 0.6 oz pur e alcohol) PHQ-2 Answer Date Recorded PHQ-2 Total Score (If total score is 3 or more points, staff should administer the PHQ-9) 0 10/10/2024 Comments No Sex and Gender Information Value Date Recorded Sex Assigned at Not on file Legal Sex Female 3:37 AM HEAVY EQUIPMENT OPERATOR/PAVER Gender Identity Female 10/02/2019 1:12 AM HEAVY EQUIPMENT OPERATOR/PAVER Sexual Orientation Straight 10/02/2019 1: 12 AM HEAVY EQUIPMENT OPERATOR/PAVER 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 Not on file Not on file Last Filed Vital Signs Vital Sign Reading Time Taken Comments Blood Pressure 134/81 01/04/2025 2:14 PM HEAVY EQUIPMENT OPERATOR/PAVER Pulse 66 01/04/2025 2:14 PM HEAVY EQUIPMENT OPERATOR/PAVER Temperature 37 C (98.6 F) 11/01/2024 2:35 PM HEAVY EQUIPMENT OPERATOR/PAVER Respiratory Rate 18 01/04/2025 2:14 PM HEAVY EQUIPMENT OPERATOR/PAVER Oxygen Saturation 99% 11/01/2024 2:35 PM HEAVY EQUIPMENT OPERATOR/PAVER Inhaled Oxygen Concentration - - Weight 69.4 kg (153 lb) 01/04/2025 2:14 PM HEAVY EQUIPMENT OPERATOR/PAVER Height 160 cm (5' 3 ) 01/04/2025 2:14 PM HEAVY EQUIPMENT OPERATOR/PAVER Body Mass Index 27.1 01/04/2025 2:14 PM HEAVY EQUIPMENT OPERATOR/PAVER Plan of Treatment Not on file Procedures Procedure Name Priority Date/Time Associated Diagnosis Comments DIAGNOSTIC MAMMOGRAM BILATERAL W MARQUIS Schedule Routine, Read Routine (OP Routine) 01/01/2025 1:13 PM HEAVY EQUIPMENT OPERATOR/PAVER Breast pain HEMOGLOBIN A1C Routine 10/12/2024 3:00 PM HEAVY EQUIPMENT OPERATOR/PAVER Type 2 diabetes mellitus without complication, without long-term current use of insulin (HCC) LIPID PANEL Routine 10/12/2024 3:00 PM HEAVY EQUIPMENT OPERATOR/PAVER Type 2 diabetes mellitus without complication, without long-term current use of insulin (HCC) EGFR Routine 08/23/2024 3:03 PM CDT Type 2 diabetes mellitus without complication, without long-term current use of insulin (HCC) ALBUMIN CREATININE RATIO, URINE Routine 08/23/2024 3:03 PM CDT Type 2 diabetes mellitus without complication, without long-term current use of insulin (HCC) HEPATITIS PANEL, ACUTE Routine 10/02/2019 3:33 PM HEAVY EQUIPMENT OPERATOR/PAVER from Last 3 Months or Most Recently Relevant to Health Maintenance Results * Diagnostic Mammogram Bilateral W [place] (01/01/2025 1:13 PM HEAVY EQUIPMENT OPERATOR/PAVER) Anatomical Region Laterality Modality Breast Bilateral Mammography 01/01/2025 1:27 PM HEAVY EQUIPMENT OPERATOR/PAVER Impressions 01/01/2025 1:27 PM HEAVY EQUIPMENT OPERATOR/PAVER No evidence of malignancy. Follow-up in 1 year with screening mammography is recommended. BI-RADS: 1 - Negative. The patient has been or will be contacted. The patient will be entered into a reminder system with a target due date of 1 year for her next mammogram. Electronically signed by: Ifrah Serrano M.D. Narrative 01/01/2025 1:27 PM HEAVY EQUIPMENT OPERATOR/PAVER EXAMINATION: DIAGNOSTIC MAMMOGRAM BILATERAL W MARQUIS ORDERING HEALTHCARE PROVIDER: DASHA CONWAY HISTORY: Diffuse bilateral breast pain. COMPARISON: 02/16/2023, 07/29/2021, 06/16/2021, 06/04/2020 TECHNIQUE: CC and MLO routine views of the Bilateral breasts were obtained with digital technique using breast tomosynthesis with C view. Computer aided detection was utilized. FINDINGS: The breasts are heterogeneously dense, which may obscure small masses. Previously seen bilateral breast implants have been removed. There are no suspicious masses, calcifications, or architectural distortion. There is no significant change. Dasha Conway NP IMG MAMMO PROCEDURES Final Re sult * (ABNORMAL) Hemoglobin A1c (10/12/2024 3:00 PM HEAVY EQUIPMENT OPERATOR/PAVER) Hgb A1C 6.1(H) 4.0 - 5.6 % Estimated Average Glucose 128 mg/dL JOAN CORONEL Comment: The ADA recommends reporting an estimated Average Glucose (eAG) with all Hemoglobin A1c results using the equation derived from a study of 507 normal and diabetic adults. Minority populations were underrepresented and children were not included. (Diabetes Care 31:0785-9223, 2008). The eAG is not equivalent to a fasting glucose. Blood 10/12/2024 3:00 PM HEAVY EQUIPMENT OPERATOR/PAVER 10/12/2024 8:24 PM HEAVY EQUIPMENT OPERATOR/PAVER Dasha Conway NP LAB BLOOD ORDERABLES Final Re sult JOAN CORONEL [id number] Department [place] [address] * (ABNORMAL) Lipid panel (10/12/2024 3:00 PM HEAVY EQUIPMENT OPERATOR/PAVER) Cholesterol 207(H) 30 - 199 mg/dL Comment: Interpretive Data Ages < or = 19 years Acceptable: <170 mg/dL Borderline high: 170-199 mg/dL High: >or= 200 mg/dL Ages > or = 20 years Desirable: <200 mg/dL Borderline high: 200-239 mg/dL High: >or= 240 mg/dL Literature References: 1. Expert Panel on Integrated Guidelines for Cardiovascular Health and Risk Reduction in Children and Adolescents. Pediatrics 2011;128:S213 2. NCEP Expert Panel. Circulation 2004;110:227 Current Interpretive Data was last revised on 2018. Triglycerides 213(H) <=149 mg/dL JOAN Comment: Interpretive Data Ages < or = 9 years Acceptable: <75 mg/dL Borderline high: 75-99 mg/dL High: >or= 100 mg/dL Ages 10 to 20 years Acceptable: <90 mg/dL Borderline high: 90-129 mg/dL High: >or= 130 mg/dL Ages > or = 20 years Desirable: <150 mg/dL Borderline high: 150-199 mg/dL High: 200-499 mg/dL Very high: >or= 499 mg/dL Literature References: 1. Expert Panel on Integrated Guidelines for Cardiovascular Health and Risk Reduction in Children and Adolescents. Pediatrics 2011;128:S213 2. NCEP Expert Panel. Circulation 2004;110:227 Current Interpretive Data was last revised on 2018. HDL 36(L) >=40 mg/dL JOAN Comment: Interpretive Data Ages < or = 19 years Acceptable: >45 mg/dL Borderline low: 40-45 mg/dL Low: <40 mg/dL Ages > or = 20 years Desirable: >or= 60 mg/dL Low: <40 mg/dL Literature References: 1. Expert Panel on Integrated Guidelines for Cardiovascular Health and Risk Reduction in Children and Adolescents. Pediatrics 2011;128:S213 2. NCEP Expert Panel. Circulation 2004;110:227 Current Interpretive Data was last revised on 2018. LDL, calculated 133(H) <=129 mg/dL JOAN Comment: Interpretive Data Ages < or = 19 years Acceptable: <110 mg/dL Borderline high: 110-129 mg/dL High: >or= 130 mg/dL Ages > or = 20 years Optimal: <100 mg/dL Near optimal: 100-129 mg/dL Borderline high: 130-159 mg/dL High: >160 mg/dL Calculated using the Ya LDL-C estimating equation. This equation was implemented on 2024. Prior to this date LDL-C was estimated using the Friedewald equation. Literature References: 1. Expert Panel on Integrated Guidelines for Cardiovascular Health and Risk Reduction in Children and Adolescents. Pediatrics 2011;128:S213 2. NCEP Expert Panel. Circulation 2004;110:227 3. Felton M et al. LINN Cardiol. 2020 March 21;5(5):540-548. doi: 10.1001/jamacardio.2020.0013 Current Interpretive Data was last revised on 2024. Non-HDL Cholesterol 171 mg/dL JOAN CORONEL Comment: Interpretive Data Ages < or = 19 years Acceptable: <120 mg/dL Borderline high: 120-144 mg/dL High: >145 mg/dL Ages > or = 20 years When triglycerides are >200 mg/dL, Non-HDL cholesterol is a secondary target of therapy with treatment goals that are 30 mg/dL greater than the LDL cholesterol target. Literature References: 1. Expert Panel on Integrated Guidelines for Cardiovascular Health and Risk Reduction in Children and Adolescents. Pediatrics 2011;128:S213 2. NCEP Expert Panel. Circulation 2004;110:227 Current Interpretive Data was last revised on 2018. Chol/HDL ratio 6 JOAN Blood 10/12/2024 3:00 PM HEAVY EQUIPMENT OPERATOR/PAVER 10/12/2024 8:24 PM HEAVY EQUIPMENT OPERATOR/PAVER Dasha Conway NP LAB BLOOD ORDERABLES Final Re sult JOAN [id number] Department of Laboratories [place], [place] [id number] * eGFR (08/23/2024 3:03 PM CDT) eGFR >90 >=60 mL/min/1. 73 m2 Comment: Interpretive Data Reference Interval Normal >/= 90 mL/min/1.73m2 Mildly decreased* 60 - 89 mL/min/1.73m2 Mildly to moderately decreased 45 - 59 mL/min/1.73m2 Moderately to severely decreased 30 - 44 mL/min/1.73m2 Severely decreased 15 - 29 mL/min/1.73m2 Kidney Failure < 15 mL/min/1.73m2 *Relative to young adult level Estimated glomerular filtration rate is determined by the 2020 CKD-EPI equation recommended by the National Kidney Foundation (A Unifying Approach to GFR Estimation: Recommendations of the NKF-ASK Task Force on Reassessing the Inclusion of Race in Diagnosing Kidney Disease, JASN 2020). The CKD-EPI equation should not be used for patients with unstable renal function and has not been validated in children and those over 70. Current interpretive data was last reviewed 2021. Blood 08/23/2024 3:03 PM CDT 08/23/2024 9:31 PM CDT Dasha Conway NP LAB BLOOD ORDERABLES Final Re sult Performing Organization Address [facility] Co de Phone Number VICKYCLIFTON CORONEL [address] [place] [address] * Albumin Creatinine Ratio, Urine (08/23/2024 3:03 PM CDT) Albumin Ur <12.0 mg/L Comment: Interpretive Data No reference range established. Current interpretive data was last revised 2019. Creatinine Ur 37.8 mg/dL JOAN Comment: Interpretive Data No reference range established. Current interpretive data was last revised 2019. Albumin Creatinine Ratio, Ur See Comment 1 - 29 JOAN Comment:Unable to calculate Urine 08/23/2024 3:03 PM CDT 08/23/2024 9:30 PM CDT Dasha Conway NP LAB URINE ORDERABLES Final Re sult Performing Organization Address [facility] Co de Phone Number [facility] CORONEL [address] [place] [address] * Hepatitis panel, acute (10/02/2019 3:33 PM HEAVY EQUIPMENT OPERATOR/PAVER) Hep A IgM NON-REACT DAVE NON-REACT DAVE [facility] [place] Comment: For additional information, please refer to http://education.Kudo.[employer]/faq/FGG407 (This link is being provided for informational/ educational purposes only.) HepBsAg NON-REACT DAVE NON-REACT DAVE [facility] [place] Hep B core IgM NON-REACT DAVE NON-REACT DAVE [facility] [place] Hep C Ab NON-REACT DAVE NON-REACT DAVE [facility] [place] SIGNAL TO CUT-OFF 0.01 <1.00 [facility] [place] Comment: HCV antibody was non-reactive. There is no laboratory evidence of HCV infection. In most cases, no further action is required. However, if recent HCV exposure is suspected, a test for HCV RNA (test code 66372) is suggested. For additional information please refer to http://education.LetsWombat/faq/UAD82n8 (This link is being provided for informational/ educational purposes only.) 10/02/2019 3:33 PM HEAVY EQUIPMENT OPERATOR/PAVER 10/02/2019 3:35 PM HEAVY EQUIPMENT OPERATOR/PAVER Narrative Resulting Agency Comment Performing Organization Information: Site ID: CARMELITA Name: Natalia [facility] Address: [address] [place] [address] CARMELITA [place] [id number] Director: Dustin Walter D.O., MPH [facility] - NERAL ORDERABLES Final Result CARMELITA Gutierrez from Last 3 Months or Most Recently Relevant to Health Maintenance Insurance [facility] MEDICARE ADVANTAGE IDPA [facility] MEDICARE ADVANTAGE IDPA [facility] MEDICARE ADVANTAGE [facility] MEDICARE ADVANTAGE IDPA Care Teams Clothes Drier Assembler Relationship Specialty Start Date End Date Dasha Conway NP PCP - General Family Medicine 08/23/24 Donovan Parks MD Referring Physician Gastroenterology 06/12/21
--- OUTSIDE RECORDS SUMMARY | 2025-02-11 16:47 | XMS_ITS | Encounter Summary ---
Author Organization [facility] - [facility] Address [address] [place] [address] Care Team Providers Care Hvac Technician Residential Name Role Phone Dasha Conway [facility] Primary Care Provider [phone]- [phone] Encounter Details Date Type Department Care Team (Late st Contact Info) Description 11/23/2022 Kamicathart Message Enc [facility] Medical Group Multispecialty Care - [place] [address] [address] [place] [address] Curtis Diaz MD [address] [facility] [address] [place] [address] Palmar fascitis Social History Tobacco Use Types Packs/Day Years [...] Sex Assigned at Female 01/08/2021 9:43 AM JAVA J2EE APPLICATION DEVELOPER Legal Sex Female 5:13 PM CDT Gender Identity Female 01/08/2021 9:43 AM JAVA J2EE APPLICATION DEVELOPER Sexual Orientation Straight 01/08/2021 9: 43 AM JAVA J2EE APPLICATION DEVELOPER COVID-19 Exposure Response Date Recorded In the last 10 days, have asif rodriguez been in contact with someone who was confirmed or suspected to have Coronavirus/COVID-19? No / Unsure 11/05/2022 9:02 AM JAVA J2EE APPLICATION DEVELOPER documented as of this encounter Functional Status [...] Rule Out 11/02/2024 11/02/2024 11/02/2024 4:03 PM JAVA J2EE APPLICATION DEVELOPER Assessment Noted Time PHQ-9 Depression Total Score: 11 022 12:00 PM JAVA J2EE APPLICATION DEVELOPER documented as of this encounter Care Teams Hvac Technician Residential Relationship Specialty Start Date End Date Dasha Conway FNP-BC [address] [place] [address] PCP - General 12/13/24 documented as of this encounter
--- OUTSIDE RECORDS SUMMARY | 2025-02-11 16:47 | XMS_ITS | Encounter Summary ---
Author Organization [facility] - [facility] Address [address] [place] [address] Care Team Providers Care Robotics Application Engineer Name Role Phone Dasha Conway [facility] Primary Care Provider [phone]- [phone] Encounter Details Date Type Department Care Team (Late st Contact Info) Description 12/03/2022 Omnilink Systemshart Message Enc [facility] Medical Group Multispecialty Care - [place] [address] [address] [place] [address] [place] [address] [place] [address] [address] [place] [address] Blood sugar Social History Tobacco Use Types Packs/Day Years Used Date Smoking Tobacco: Some Days Cigarettes 0.3 30 Smokeless Tobacco: Never Comments:tried patches, gum, lozenges, nicotrol inhaler, auriculotherapy and chantix to quit without success Alcohol Use Standard Drinks/Week Comments Not Currently 0 (1 standard drink = 0.6 oz pur e alcohol) PHQ-2 Answer Date Recorded Patient Health Questionnaire-2 Score 3 11/05/2022 Comments No Sex and Gender Information Value Date Recorded Sex Assigned at Female 01/08/2021 9:43 AM REVENUE CYCLE CONSULTANT Legal Sex Female 5:13 PM CDT Gender Identity Female 01/08/2021 9:43 AM REVENUE CYCLE CONSULTANT Sexual Orientation Straight 01/08/2021 9: 43 AM REVENUE CYCLE CONSULTANT COVID-19 Exposure Response Date Recorded In the last 10 days, have asif rodriguez been in contact with someone who was confirmed or suspected to have Coronavirus/COVID-19? No / Unsure 12/03/2022 10:51 AM REVENUE CYCLE CONSULTANT documented as of this encounter Functional Status [...] Rule Out 11/02/2024 11/02/2024 11/02/2024 4:03 PM REVENUE CYCLE CONSULTANT Assessment Noted Time PHQ-9 Depression Total Score: 11 022 12:00 PM REVENUE CYCLE CONSULTANT documented as of this encounter Care Teams Robotics Application Engineer Relationship Specialty Start Date End Date Dasha Conway FNP-BC [address] [place] [address] PCP - General 11/02/24 documented as of this encounter
--- OUTSIDE RECORDS SUMMARY | 2025-02-11 16:47 | XMS_ITS | Encounter Summary ---
Author Organization [facility] Address [address] [place] [address] Care Team Providers Care Manager Nursing Home Name Role Phone Daryl Metzger MD Primary Care Provider Dasha Vicente [facility] Primary Care Provider [phone]- [phone] Encounter Details Date Type Department Care Team (Late st Contact Info) Description 09/17/2020 Abigail Stewart Message Enc [facility] Medical Group Multispecialty Care - [facility] [address] [facility], [address] [place] [address] Chip, [facility] Provider EGD results Social History Tobacco Use Types Packs/Day Years Used Date Smoking Tobacco: Every Day Cigarettes Smokeless Tobacco: Never Alcohol Use Standard Drinks/Week Comments Not Currently 0 (1 standard drink = 0.6 oz pur e alcohol) PHQ-2 Answer Date Recorded PHQ-2 Score 3 06/23/2020 Comments No Sex and Gender Information Value Date Recorded Sex Assigned at Female 01/08/2021 9:43 AM DANCER OR CHOREOGRAPHER Legal Sex Female 5:13 PM CDT Gender Identity Female 01/08/2021 9:43 AM DANCER OR CHOREOGRAPHER Sexual Orientation Straight 01/08/2021 9: 43 AM DANCER OR CHOREOGRAPHER COVID-19 Exposure Response Date Recorded In the last month, have you been in contact with someone who was confirmed or suspected to have Coronavirus / COVID-19? No / Unsure 09/12/2020 10:10 AM CDT documented as of this encounter Plan of Treatment Not on file documented as of this encounter Visit Diagnoses Not on filedocumented in this encounter Additional Health Concerns Infection Onset Date Last Indicated Resolved Time 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 06/30/2017 COVID-19 Rule Out 12/16/2020 12/16/2020 12/17/2020 4:31 PM DANCER OR CHOREOGRAPHER COVID-19 Rule Out 06/05/2021 06/05/2021 06/05/2021 12:31 PM CDT COVID-19 Rule Out 10/23/2021 10/23/2021 10/23/2021 9:25 AM DANCER OR CHOREOGRAPHER COVID-19 Rule Out 10/23/2021 10/23/2021 10/24/2021 12:21 AM DANCER OR CHOREOGRAPHER COVID-19 Rule Out 01/15/2022 01/15/2022 01/20/2022 10:53 AM DANCER OR CHOREOGRAPHER COVID-19 Rule Out 04/21/2022 04/21/2022 04/21/2022 11:42 AM CDT COVID-19 Rule Out 04/21/2022 04/21/2022 04/26/2022 7:02 AM CDT COVID-19 Rule Out 10/06/2022 10/06/2022 10/06/2022 1:21 PM DANCER OR CHOREOGRAPHER COVID-19 Rule Out 10/06/2022 10/06/2022 10/07/2022 3:34 PM DANCER OR CHOREOGRAPHER COVID-19 Rule Out 09/14/2023 09/14/2023 09/14/2023 3:48 PM CDT COVID-19 Rule Out 11/02/2024 11/02/2024 11/02/2024 4:03 PM DANCER OR CHOREOGRAPHER Assessment Noted Time PHQ-9 Depression Total Score: 13 020 1:12 PM CDT documented as of this encounter Care Teams Manager Nursing Home Relationship Specialty Start Date End Date Daryl Metzger MD PCP - General FAMILY MEDICINE SPORTS MEDICINE 08/20/20 10/09/20 Dasha Conway FNP- [address] [place] [address] PCP - General 11/02/24 documented as of this encounter
--- OUTSIDE RECORDS SUMMARY | 2025-02-11 16:47 | XMS_ITS | Encounter Summary ---
Author Organization [facility] Address [address] [place] [address] Care Team Providers Care Bobbin Fixer Name Role Phone Daryl Metzger MD Primary Care Provider Bradley Gallegos MD Primary Care Provider [phone] Daryl Metzger MD Primary Care Provider Dasha Vicente [facility] Primary Care Provider [phone]- [phone] Encounter Details Date Type Department Care Team (Late st Contact Info) Description 07/13/2020 Lyticst Message Enc [facility] Medical Group [facility] [address] [place] [address] Daryl Metzger MD Question Social History Tobacco Use Types Packs/Day Years Used Date Smoking Tobacco: Every Day Cigarettes Smokeless Tobacco: Never Alcohol Use Standard Drinks/Week Comments Not Currently 0 (1 standard drink = 0.6 oz pur e alcohol) PHQ-2 Answer Date Recorded PHQ-2 Score 3 06/23/2020 Comments No Sex and Gender Information Value Date Recorded Sex Assigned at Female 01/08/2021 9:43 AM SAMPLE MAKER Legal Sex Female 5:13 PM CDT Gender Identity Female 01/08/2021 9:43 AM SAMPLE MAKER Sexual Orientation Straight 01/08/2021 9: 43 AM SAMPLE MAKER COVID-19 Exposure Response Date Recorded In the last month, have you been in contact with someone who was confirmed or suspected to have Coronavirus / COVID-19? No / Unsure 07/16/2020 3:22 PM CDT documented as of this encounter Plan of Treatment Not on file documented as of this encounter Visit Diagnoses Not on filedocumented in this encounter Additional Health Concerns Infection Onset Date Last Indicated Resolved Time 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 06/30/2017 COVID-19 Rule Out 09/01/2020 09/01/2020 09/02/2020:06 PM CDT COVID-19 Rule Out 12/16/2020 12/16/2020 12/17/2020 4:31 PM SAMPLE MAKER COVID-19 Rule Out 06/05/2021 06/05/2021 06/05/2021 12:31 PM CDT COVID-19 Rule Out 10/23/2021 10/23/2021 10/23/2021 9:25 AM SAMPLE MAKER COVID-19 Rule Out 10/23/2021 10/23/2021 10/24/2021 12:21 AM SAMPLE MAKER COVID-19 Rule Out 01/15/2022 01/15/2022 01/20/2022 10:53 AM SAMPLE MAKER COVID-19 Rule Out 04/21/2022 04/21/2022 04/21/2022 11:42 AM CDT COVID-19 Rule Out 04/21/2022 04/21/2022 04/26/2022 7:02 AM CDT COVID-19 Rule Out 10/06/2022 10/06/2022 10/06/2022 1:21 PM SAMPLE MAKER COVID-19 Rule Out 10/06/2022 10/06/2022 10/07/2022 3:34 PM SAMPLE MAKER COVID-19 Rule Out 09/14/2023 09/14/2023 09/14/2023 3:48 PM CDT COVID-19 Rule Out 11/02/2024 11/02/2024 11/02/2024 4:03 PM SAMPLE MAKER Assessment Noted Time PHQ-9 Depression Total Score: 020 1:12 PM CDT documented as of this encounter Care Teams Bobbin Fixer Relationship Specialty Start Date End Date Daryl Metzger MD PCP - General FAMILY MEDICINE SPORTS MEDICINE 06/23/20 08/12/20 Bradley Carmichael MD [address] [place] [address] MEDICAL OFFICE BUILDING [address] [place] [address] PCP - General INTERNAL MEDICINE 08/13/20 08/19/20 Daryl Metzger MD PCP - General FAMILY MEDICINE SPORTS MEDICINE 08/20/20 10/09/20 Dasha Conway, PHOTO SPECIALIST-BC [address] [place] [address] PCP - General 11/02/24 documented as of this encounter
--- OUTSIDE RECORDS SUMMARY | 2025-02-11 16:47 | XMS_ITS | Encounter Summary ---
Author Organization [facility] Address [address] [place] [address] Care Team Providers Care Director Of Financial Planning Name Role Phone Daryl Metzger MD Primary Care Provider Dasha Vicente [facility] Primary Care Provider [phone]- [phone] Encounter Details Date Type Department Care Team (Late st Contact Info) Description 09/03/2020 [facility] at [address] [address] Hussain Barros [place] Social History Tobacco Use Types Packs/Day Years Used Date Smoking Tobacco: Every Day Cigarettes Smokeless Tobacco: Never Alcohol Use Standard Drinks/Week Comments Not Currently 0 (1 standard drink = 0.6 oz pur e alcohol) PHQ-2 Answer Date Recorded PHQ-2 Score 3 06/23/2020 Comments No Sex and Gender Information Value Date Recorded Sex Assigned at Female 01/08/2021 9:43 AM ABRASIVE WATER JET CUTTER OPERATOR Legal Sex Female 5:13 PM CDT Gender Identity Female 01/08/2021 9:43 AM ABRASIVE WATER JET CUTTER OPERATOR Sexual Orientation Straight 01/08/2021 9: 43 AM ABRASIVE WATER JET CUTTER OPERATOR COVID-19 Exposure Response Date Recorded In the last month, have you been in contact with someone who was confirmed or suspected to have Coronavirus / COVID-19? No / Unsure 09/04/2020 10:49 AM CDT documented as of this encounter Plan of Treatment Not on file documented as of this encounter Procedures Procedure Name Priority Date/Time Associated Diagnosis Comments BUN (OUTSIDE LAB) Routine 09/02/2020 LIPID PANEL Routine 09/02/2020 CREATININE Routine 09/02/2020 documented in this encounter Results * CREATININE (09/02/2020) CREATININE S/P/B 0.92 0.5 - 1.0 EGFR NON-AFR. AMER. 78 <=90 EGFR AFR. AMER. 90 <=90 09/02/2020 [facility] Final Result * BUN (OUTSIDE LAB) (09/02/2020) BUN 6 7 - 25 09/02/2020 [facility] LAB-OUTSIDE/ABSTRACTED Final Result * LIPID PANEL (09/02/2020) CHOLESTEROL 161 >200 HDL 36 > or = 50 TRIGLYCERIDES 619 <150 NON HDL CHOLESTEROL 125 <130 09/02/2020 us [facility] Final Result documented in this encounter Visit Diagnoses Not on filedocumented in this encounter Additional Health Concerns Infection Onset Date Last Indicated Resolved Time 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 06/30/2017 COVID-19 Rule Out 12/16/2020 12/16/2020 12/17/2020 4:31 PM ABRASIVE WATER JET CUTTER OPERATOR COVID-19 Rule Out 06/05/2021 06/05/2021 06/05/2021 12:31 PM CDT COVID-19 Rule Out 10/23/2021 10/23/2021 10/23/2021 9:25 AM ABRASIVE WATER JET CUTTER OPERATOR COVID-19 Rule Out 10/23/2021 10/23/2021 10/24/2021 12:21 AM ABRASIVE WATER JET CUTTER OPERATOR COVID-19 Rule Out 01/15/2022 01/15/2022 01/20/2022 10:53 AM ABRASIVE WATER JET CUTTER OPERATOR COVID-19 Rule Out 04/21/2022 04/21/2022 04/21/2022 11:42 AM CDT COVID-19 Rule Out 04/21/2022 04/21/2022 04/26/2022 7:02 AM CDT COVID-19 Rule Out 10/06/2022 10/06/2022 10/06/2022 1:21 PM ABRASIVE WATER JET CUTTER OPERATOR COVID-19 Rule Out 10/06/2022 10/06/2022 10/07/2022 3:34 PM ABRASIVE WATER JET CUTTER OPERATOR COVID-19 Rule Out 09/14/2023 09/14/2023 09/14/2023 3:48 PM CDT COVID-19 Rule Out 11/02/2024 11/02/2024 11/02/2024 4:03 PM ABRASIVE WATER JET CUTTER OPERATOR Assessment Noted Time PHQ-9 Depression Total Score: 13 020 1:12 PM CDT documented as of this encounter Care Teams Director Of Financial Planning Relationship Specialty Start Date End Date Daryl Metzger MD PCP - General FAMILY MEDICINE SPORTS MEDICINE 08/20/20 10/09/20 Dasha Conway FRENCH PROFESSOR- [address] [place] [address] PCP - General 11/02/24 documented as of this encounter
--- OUTSIDE RECORDS SUMMARY | 2025-02-11 16:47 | XMS_ITS | Encounter Summary ---
Author Organization [facility] - [facility] Address [address] [place] [address] Care Team Providers Care Government Relations Manager Name Role Phone Dasha Conway [facility] Primary Care Provider [phone]- [phone] Encounter Details Date Type Department Care Team (Late st Contact Info) Description 12/07/2022 Mashert Message Enc [facility] Medical Group Multispecialty Care - [place] [address] [address] [place] [address] [place] [address] [place] [address] [address] [place] [address] Surgery date Social History Tobacco Use Types Packs/Day Years [...] Assigned at Female 01/08/2021 9:43 AM SUPERVISOR SPECIALTY PLANT Legal Sex Female 5:13 PM CDT Gender Identity Female 01/08/2021 9:43 AM SUPERVISOR SPECIALTY PLANT Sexual Orientation Straight 01/08/2021 9: 43 AM SUPERVISOR SPECIALTY PLANT COVID-19 Exposure Response Date Recorded In the last 10 days, have asif rodriguez been in contact with someone who was confirmed or suspected to have Coronavirus/COVID-19? No / Unsure 12/03/2022 10:51 AM SUPERVISOR SPECIALTY PLANT documented as of this encounter Functional Status [...] Out 11/02/2024 11/02/2024 11/02/2024 4:03 PM SUPERVISOR SPECIALTY PLANT Assessment Noted Time PHQ-9 Depression Total Score: 11 022 12:00 PM SUPERVISOR SPECIALTY PLANT documented as of this encounter Care Teams Government Relations Manager Relationship Specialty Start Date End Date Dasha Conway FNP-BC [address] [place] [address] PCP - General 11/02/24 documented as of this encounter
--- OUTSIDE RECORDS SUMMARY | 2025-02-11 16:47 | XMS_ITS | Encounter Summary ---
Author Organization [facility] Address [address] [place] [address] Care Team Providers Care Supervisor Pullet Farm Name Role Phone Daryl Metzger MD Primary Care Provider Bradley Gallegos MD Primary Care Provider [phone] Daryl Metzger MD Primary Care Provider Dasha Vicente [facility] Primary Care Provider [phone]- [phone] Encounter Details Date Type Department Care Team (Late st Contact Info) Description 06/27/2020 Digilabt Message Enc [facility] Medical Group [facility] [address] [place] [address] Daryl Metzger MD RE: Follow Up/Update Social [...] Sex Assigned at Female 01/08/2021 9:43 AM ENGINEERING TEST MECHANIC Legal Sex Female 5:13 PM CDT Gender Identity Female 01/08/2021 9:43 AM ENGINEERING TEST MECHANIC Sexual Orientation Straight 01/08/2021 9: 43 AM ENGINEERING TEST MECHANIC COVID-19 Exposure Response Date Recorded In the last month, have you been in contact with someone who was confirmed or suspected to have Coronavirus / COVID-19? No / Unsure 06/23/2020 12:40 PM CDT documented as of this encounter Plan of Treatment Not on file documented as of this encounter Visit Diagnoses Not on filedocumented in this encounter Additional Health Concerns Infection Onset Date Last Indicated Resolved Time 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 06/30/2017 COVID-19 Rule Out 09/01/2020 09/01/2020 09/02/2020 10:06 PM CDT COVID-19 Rule Out 12/16/2020 12/16/2020 12/17/2020 4:31 PM ENGINEERING TEST MECHANIC COVID-19 Rule Out 06/05/2021 06/05/2021 06/05/2021 12:31 PM CDT COVID-19 Rule Out 10/23/2021 10/23/2021 10/23/2021 9:25 AM ENGINEERING TEST MECHANIC COVID-19 Rule Out 10/23/2021 10/23/2021 10/24/2021 12:21 AM ENGINEERING TEST MECHANIC COVID-19 Rule Out 01/15/2022 01/15/2022 01/20/2022 10:53 AM ENGINEERING TEST MECHANIC COVID-19 Rule Out 04/21/2022 04/21/2022 04/21/2022 11:42 AM CDT COVID-19 Rule Out 04/21/2022 04/21/2022 04/26/2022 7:02 AM CDT COVID-19 Rule Out 10/06/2022 10/06/2022 10/06/2022 1:21 PM ENGINEERING TEST MECHANIC COVID-19 Rule Out 10/06/2022 10/06/2022 10/07/2022 3:34 PM ENGINEERING TEST MECHANIC COVID-19 Rule Out 09/14/2023 09/14/2023 09/14/2023 3:48 PM CDT COVID-19 Rule Out 11/02/2024 11/02/2024 11/02/2024 4:03 PM ENGINEERING TEST MECHANIC Assessment Noted Time PHQ-9 Depression Total Score: 13 020 1:12 PM CDT documented as of this encounter Care Teams Supervisor Pullet Farm Relationship Specialty Start Date End Date Daryl Metzger MD PCP - General FAMILY MEDICINE SPORTS MEDICINE 06/23/20 08/12/20 Bradley Carmichael MD [address] [place] [address] MEDICAL OFFICE BUILDING [address] [place] [address] PCP - General INTERNAL MEDICINE 08/13/20 08/19/20 Daryl Metzger MD PCP - General FAMILY MEDICINE SPORTS MEDICINE 08/20/20 10/09/20 Dasha Conway, WELDING INSPECTOR- [address] [place] [address] PCP - General 11/02/24 documented as of this encounter
--- OUTSIDE RECORDS SUMMARY | 2025-02-11 16:47 | XMS_ITS | Encounter Summary ---
Author Organization [facility] - [facility] Address [address] [place] [address] Care Team Providers Care Glazier Stained Glass Name Role Phone Dasha Conway [facility] Primary Care Provider [phone]- [phone] Encounter Details Date Type Department Care Team (Late st Contact Info) Description 02/14/2023 Priori Datat Message Enc [facility] Medical Group Multispecialty Care - [place] [address] [address] [place] [address] [place] [address] [place] [address] 157 [place] [address] A1c Social History Tobacco Use [...] Date Recorded Patient Health Questionnaire-2 Score 0 02/08/2023 Comments No Sex and Gender Information Value Date Recorded Sex Assigned at Female 01/08/2021 9:43 AM TELEHEALTH CASE MANAGER Legal Sex Female 5:13 PM CDT Gender Identity Female 01/08/2021 9:43 AM TELEHEALTH CASE MANAGER Sexual Orientation Straight 01/08/2021 9: 43 AM TELEHEALTH CASE MANAGER COVID-19 Exposure Response Date Recorded In the last 10 days, have asif rodriguez been in contact with someone who was confirmed or suspected to have Coronavirus/COVID-19? No / Unsure 02/16/2023 9:41 AM CDT documented as of this encounter [...] Rule Out 11/02/2024 11/02/2024 11/02/2024 4:03 PM TELEHEALTH CASE MANAGER Assessment Noted Time PHQ-9 Depression Total Score: 11 022 12:00 PM TELEHEALTH CASE MANAGER documented as of this encounter Care Teams Glazier Stained Glass Relationship Specialty Start Date End Date Dasha Conway, HIRED HAND- [address] [place] [address] PCP - General 11/02/24 documented as of this encounter
--- OUTSIDE RECORDS SUMMARY | 2025-02-11 16:47 | XMS_ITS | Encounter Summary ---
Author Organization [facility] Address [address] [place] [address] Care Team Providers Care Ep Technologist Name Role Phone Daryl Metzger MD Primary Care Provider Dasha Vicente [facility] Primary Care Provider [phone]- [phone] Encounter Details Date Type Department Care Team (Latest Contact Info) Description 09/04/2020 Whiphandt Message [facility] Out[facility]-[address] [address] Harsh Sanchez MD [address] [place] [phone] RE: Follow Up/Update Social History Tobacco Use Types Packs/Day Years Used Date Smoking Tobacco: Every Day Cigarettes Smokeless Tobacco: Never Alcohol Use Standard Drinks/Week Comments Not Currently 0 (1 standard drink = 0.6 oz pur e alcohol) PHQ-2 Answer Date Recorded PHQ-2 Score 3 06/23/2020 Comments No Sex and Gender Information Value Date Recorded Sex Assigned at Female 01/08/2021 9:43 AM DIVINITY TEACHER Legal Sex Female 5:13 PM CDT Gender Identity Female 01/08/2021 9:43 AM DIVINITY TEACHER Sexual Orientation Straight 01/08/2021 9: 43 AM DIVINITY TEACHER COVID-19 Exposure Response Date Recorded In the last month, have you been in contact with someone who was confirmed or suspected to have Coronavirus / COVID-19? No / Unsure 09/04/2020 10:49 AM CDT documented as of this encounter Progress Notes * Anila Sotelo, SANJU - 09/05/2020 9:09 AM CDT It looks like she has follow up in [address] Sanchez. Recommend discussing it with him at that time. documented in this encounter Plan of Treatment Not on file documented as of this encounter Visit Diagnoses Not on filedocumented in this encounter Additional Health Concerns Infection Onset Date Last Indicated Resolved Time 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 06/30/2017 COVID-19 Rule Out 12/16/2020 12/16/2020 12/17/2020 4:31 PM DIVINITY TEACHER COVID-19 Rule Out 06/05/2021 06/05/2021 06/05/2021 12:31 PM CDT COVID-19 Rule Out 10/23/2021 10/23/2021 10/23/2021 9:25 AM DIVINITY TEACHER COVID-19 Rule Out 10/23/2021 10/23/2021 10/24/2021 12:21 AM DIVINITY TEACHER COVID-19 Rule Out 01/15/2022 01/15/2022 01/20/2022 10:53 AM DIVINITY TEACHER COVID-19 Rule Out 04/21/2022 04/21/2022 04/21/2022 11:42 AM CDT COVID-19 Rule Out 04/21/2022 04/21/2022 04/26/2022 7:02 AM CDT COVID-19 Rule Out 10/06/2022 10/06/2022 10/06/2022 1:21 PM DIVINITY TEACHER COVID-19 Rule Out 10/06/2022 10/06/2022 10/07/2022 3:34 PM DIVINITY TEACHER COVID-19 Rule Out 09/14/2023 09/14/2023 09/14/2023 3:48 PM CDT COVID-19 Rule Out 11/02/2024 11/02/2024 11/02/2024 4:03 PM DIVINITY TEACHER Assessment Noted Time PHQ-9 Depression Total Score: 13 020 1:12 PM CDT documented as of this encounter Care Teams Ep Technologist Relationship Specialty Start Date End Date Daryl Metzger MD PCP - General FAMILY MEDICINE SPORTS MEDICINE 08/20/20 10/09/20 Dasha Conway FNP- [address] [place] [id number] PCP - General 11/02/24 documented as of this encounter
--- OUTSIDE RECORDS SUMMARY | 2025-02-11 16:47 | XMS_ITS | Encounter Summary ---
Author Organization [facility] Address [facility] [place] [address] Care Team Providers Care Machine Pan Greaser Name Role Phone Daryl Metzger MD Primary Care Provider Dasha Vicente [facility] Primary Care Provider [phone]- [phone] Encounter Details Date Type Department Care Team (Late st Contact Info) Description 08/20/2020 MyChart Message Enc [facility] Medical Group Family Medicine [facility] [address] [address] Daryl Metzger MD RE: Question Social History Tobacco Use Types Packs/Day Years Used Date Smoking Tobacco: Every Day Cigarettes Smokeless Tobacco: Never Alcohol Use Standard Drinks/Week Comments Not Currently 0 (1 standard drink = 0.6 oz pur e alcohol) PHQ-2 Answer Date Recorded PHQ-2 Score 3 06/23/2020 Comments No Sex and Gender Information Value Date Recorded Sex Assigned at Female 01/08/2021 9:43 AM BUILDING PERFORMANCE SPECIALIST Legal Sex Female 5:13 PM CDT Gender Identity Female 01/08/2021 9:43 AM BUILDING PERFORMANCE SPECIALIST Sexual Orientation Straight 01/08/2021 9: 43 AM BUILDING PERFORMANCE SPECIALIST COVID-19 Exposure Response Date Recorded In the last month, have you been in contact with someone who was confirmed or suspected to have Coronavirus / COVID-19? No / Unsure 08/14/2020 9:31 AM CDT documented as of this encounter Plan of Treatment Not on file documented as of this encounter Visit Diagnoses Not on filedocumented in this encounter Additional Health Concerns Infection Onset Date Last Indicated Resolved Time 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 06/30/2017 COVID-19 Rule Out 09/01/2020 09/01/2020 09/02/2020 10:06 PM CDT COVID-19 Rule Out 12/16/2020 12/16/2020 12/17/2020 4:31 PM BUILDING PERFORMANCE SPECIALIST COVID-19 Rule Out 06/05/2021 06/05/2021 06/05/2021 12:31 PM CDT COVID-19 Rule Out 10/23/2021 10/23/2021 10/23/2021 9:25 AM BUILDING PERFORMANCE SPECIALIST COVID-19 Rule Out 10/23/2021 10/23/2021 10/24/2021 12:21 AM BUILDING PERFORMANCE SPECIALIST COVID-19 Rule Out 01/15/2022 01/15/2022 01/20/2022 10:53 AM BUILDING PERFORMANCE SPECIALIST COVID-19 Rule Out 04/21/2022 04/21/2022 04/21/2022 11:42 AM CDT COVID-19 Rule Out 04/21/2022 04/21/2022 04/26/2022 7:02 AM CDT COVID-19 Rule Out 10/06/2022 10/06/2022 10/06/2022 1:21 PM BUILDING PERFORMANCE SPECIALIST COVID-19 Rule Out 10/06/2022 10/06/2022 10/07/2022 3:34 PM BUILDING PERFORMANCE SPECIALIST COVID-19 Rule Out 09/14/2023 09/14/2023 09/14/2023 3:48 PM CDT COVID-19 Rule Out 11/02/2024 11/02/2024 11/02/2024 4:03 PM BUILDING PERFORMANCE SPECIALIST Assessment Noted Time PHQ-9 Depression Total Score: 020 1:12 PM CDT documented as of this encounter Care Teams Machine Pan Greaser Relationship Specialty Start Date End Date Daryl Metzger MD PCP - General FAMILY MEDICINE SPORTS MEDICINE 08/20/20 10/09/20 Dasha Conway FNP- [address] [place] [address] PCP - General 11/02/24 documented as of this encounter
--- OUTSIDE RECORDS SUMMARY | 2025-02-11 16:47 | XMS_ITS | Encounter Summary ---
Author Organization [facility] Address [address] [place] [address] Care Team Providers Care Marine Rigger Name Role Phone Daryl Metzger MD Primary Care Provider Dasha Vicente [facility] Primary Care Provider [phone]- [phone] Encounter Details Date Type Department Care Team (Late st Contact Info) Description 08/27/2020 Luminary Microt Message [facility] Out[facility] Clinic[address] [address] Harsh Sanchez MD [address] [place] [address] [place] [phone] RE: Question Social History Tobacco Use Types Packs/Day Years Used Date Smoking Tobacco: Every Day Cigarettes Smokeless Tobacco: Never Alcohol Use Standard Drinks/Week Comments Not Currently 0 (1 standard drink = 0.6 oz pur e alcohol) PHQ-2 Answer Date Recorded PHQ-2 Score 3 06/23/2020 Comments No Sex and Gender Information Value Date Recorded Sex Assigned at Female 01/08/2021 9:43 AM BUSINESS DEPARTMENT CHAIR Legal Sex Female 5:13 PM CDT Gender Identity Female 01/08/2021 9:43 AM BUSINESS DEPARTMENT CHAIR Sexual Orientation Straight 01/08/2021 9: 43 AM BUSINESS DEPARTMENT CHAIR COVID-19 Exposure Response Date Recorded In the last month, have you been in contact with someone who was confirmed or suspected to have Coronavirus / COVID-19? No / Unsure 08/29/2020 9:48 AM CDT documented as of this encounter Progress Notes * Shyann Menon - 08/28/2020 2:51 PM CDT Spoke with patient. Apt scheduled for 09-26-20 * Sienna Jernigan RN - 08/27/2020 2:19 PM CDT Please call pt to RS appt for the week of Nov 2 documented in this encounter Plan of Treatment Not on file documented as of this encounter Visit Diagnoses Not on filedocumented in this encounter Additional Health Concerns Infection Onset Date Last Indicated Resolved Time 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 06/30/2017 COVID-19 Rule Out 09/01/2020 09/01/2020 09/02/2020 10:06 PM CDT COVID-19 Rule Out 12/16/2020 12/16/2020 12/17/2020 4:31 PM BUSINESS DEPARTMENT CHAIR COVID-19 Rule Out 06/05/2021 06/05/2021 06/05/2021 12:31 PM CDT COVID-19 Rule Out 10/23/2021 10/23/2021 10/23/2021 9:25 AM BUSINESS DEPARTMENT CHAIR COVID-19 Rule Out 10/23/2021 10/23/2021 10/24/2021 12:21 AM BUSINESS DEPARTMENT CHAIR COVID-19 Rule Out 01/15/2022 01/15/2022 01/20/2022 10:53 AM BUSINESS DEPARTMENT CHAIR COVID-19 Rule Out 04/21/2022 04/21/2022 04/21/2022 11:42 AM CDT COVID-19 Rule Out 04/21/2022 04/21/2022 04/26/2022 7:02 AM CDT COVID-19 Rule Out 10/06/2022 10/06/2022 10/06/2022 1:21 PM BUSINESS DEPARTMENT CHAIR COVID-19 Rule Out 10/06/2022 10/06/2022 10/07/2022 3:34 PM BUSINESS DEPARTMENT CHAIR COVID-19 Rule Out 09/14/2023 09/14/2023 09/14/2023 3:48 PM CDT COVID-19 Rule Out 11/02/2024 11/02/2024 11/02/2024 4:03 PM BUSINESS DEPARTMENT CHAIR Assessment Noted Time PHQ-9 Depression Total Score: 13 020 1:12 PM CDT documented as of this encounter Care Teams Marine Rigger Relationship Specialty Start Date End Date Daryl Metzger MD PCP - General FAMILY MEDICINE SPORTS MEDICINE 08/20/20 10/09/20 Dasha Conway FNP- [address] [place] [address] PCP - General 11/02/24 documented as of this encounter
--- OUTSIDE RECORDS SUMMARY | 2025-02-11 16:47 | XMS_ITS | Encounter Summary ---
Author Organization [facility] Address [address] [place] [address] Care Team Providers Care Microsoft Bi Consultant Name Role Phone Daryl Metzger MD Primary Care Provider Dasha Vicente [facility] Primary Care Provider [phone]- [phone] Encounter Details Date Type Department Care Team (Late st Contact Info) Description 08/24/2020 MyChart Message Enc [facility] Medical Group Multispecialty Care - [facility] [address] [facility] [address] [place] [id number] Donovan Parks MD [address] [facility] [address] [place] [address] Question Social History Tobacco Use Types Packs/Day Years Used Date Smoking Tobacco: Every Day Cigarettes Smokeless Tobacco: Never Alcohol Use Standard Drinks/Week Comments Not Currently 0 (1 standard drink = 0.6 oz pur e alcohol) PHQ-2 Answer Date Recorded PHQ-2 Score 3 06/23/2020 Comments No Sex and Gender Information Value Date Recorded Sex Assigned at Female 01/08/2021 9:43 AM SHRIMP POND LABORER Legal Sex Female 5:13 PM CDT Gender Identity Female 01/08/2021 9:43 AM SHRIMP POND LABORER Sexual Orientation Straight 01/08/2021 9: 43 AM SHRIMP POND LABORER COVID-19 Exposure Response Date Recorded In the last month, have you been in contact with someone who was confirmed or suspected to have Coronavirus / COVID-19? No / Unsure 08/27/2020 8:44 AM CDT documented as of this encounter Plan of Treatment Not on file documented as of this encounter Visit Diagnoses Not on filedocumented in this encounter Additional Health Concerns Infection Onset Date Last Indicated Resolved Time 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 06/30/2017 COVID-19 Rule Out 09/01/2020 09/01/2020 09/02/2020 10:06 PM CDT COVID-19 Rule Out 12/16/2020 12/16/2020 12/17/2020 4:31 PM SHRIMP POND LABORER COVID-19 Rule Out 06/05/2021 06/05/2021 06/05/2021 12:31 PM CDT COVID-19 Rule Out 10/23/2021 10/23/2021 10/23/2021 9:25 AM SHRIMP POND LABORER COVID-19 Rule Out 10/23/2021 10/23/2021 10/24/2021 12:21 AM SHRIMP POND LABORER COVID-19 Rule Out 01/15/2022 01/15/2022 01/20/2022 10:53 AM SHRIMP POND LABORER COVID-19 Rule Out 04/21/2022 04/21/2022 04/21/2022 11:42 AM CDT COVID-19 Rule Out 04/21/2022 04/21/2022 04/26/2022 7:02 AM CDT COVID-19 Rule Out 10/06/2022 10/06/2022 10/06/2022 1:21 PM SHRIMP POND LABORER COVID-19 Rule Out 10/06/2022 10/06/2022 10/07/2022 3:34 PM SHRIMP POND LABORER COVID-19 Rule Out 09/14/2023 09/14/2023 09/14/2023 3:48 PM CDT COVID-19 Rule Out 11/02/2024 11/02/2024 11/02/2024 4:03 PM SHRIMP POND LABORER Assessment Noted Time PHQ-9 Depression Total Score: 13 020 1:12 PM CDT documented as of this encounter Care Teams Microsoft Bi Consultant Relationship Specialty Start Date End Date Daryl Metzger MD PCP - General FAMILY MEDICINE SPORTS MEDICINE 08/20/20 10/09/20 Dasha Conway FNP- [address] [place] [address] PCP - General 11/02/24 documented as of this encounter
--- OUTSIDE RECORDS SUMMARY | 2025-02-11 16:47 | XMS_ITS | Encounter Summary ---
Author Organization [facility] Address [address] [place] [address] Care Team Providers Care Dietetics Professor Name Role Phone Daryl Metzger MD Primary Care Provider Dasha Vicente [facility] Primary Care Provider [phone]- [phone] Encounter Details Date Type Department Care Team (Late st Contact Info) Description 09/01/2020 Prep for Procedure [facility] Day [facility] [place], [place] [address] Donovan Parks MD [address] [facility] Reg[address] [place] [address] [id number] Social History Tobacco Use Types Packs/Day Years Used Date Smoking Tobacco: Every Day Cigarettes Smokeless Tobacco: Never Alcohol Use Standard Drinks/Week Comments Not Currently 0 (1 standard drink = 0.6 oz pur e alcohol) PHQ-2 Answer Date Recorded PHQ-2 Score 3 06/23/2020 Comments No Sex and Gender Information Value Date Recorded Sex Assigned at Female 01/08/2021 9:43 AM LOCOMOTIVE SUPERVISOR Legal Sex Female 5:13 PM CDT Gender Identity Female 01/08/2021 9:43 AM LOCOMOTIVE SUPERVISOR Sexual Orientation Straight 01/08/2021 9: 43 AM LOCOMOTIVE SUPERVISOR COVID-19 Exposure Response Date Recorded In the last month, have you been in contact with someone who was confirmed or suspected to have Coronavirus / COVID-19? No / Unsure 09/04/2020 10:49 AM CDT documented as of this encounter Plan of Treatment Not on file documented as of this encounter Results * PRE-SURGICAL/PRE-PROCEDURE CORONAVIRUS (COVID 19) (09/01/2020 12:23 PM CDT) CORONAVIRUS SARS COV 2 PCR (RESP) NOT DETECTED NOT DETECTED 09/02/2020 10:05 PM CDT [facility] Comment: A Not Detected (negative) test result for this test means that SARS- CoV-2 RNA was not present in the specimen above the limit of detection. A negative result does not rule out the possibility of COVID-19 and should not be used as the sole basis for treatment or patient management decisions. If COVID-19 is still suspected, based on exposure history together with other clinical findings, re-testing should be considered in consultation with public health authorities. Laboratory test results should always be considered in the context of clinical observations and epidemiological data in making a final diagnosis and patient management decisions. Please review the Fact Sheets and FDA authorized labeling available for health care providers and patients using the following websites: https://www.[employer]/home/Covid-19/HCP/NAAT/fact-sheet2 https://www.[employer]/home/Covid-19/Patients/NAAT/ fact-sheet2 This test has been authorized by the FDA under an Emergency Use Authorization (EUA) for use by authorized laboratories. Due to the current public health emergency, [facility] is receiving a high volume of samples from a wide variety of swabs and media for COVID-19 testing. In order to serve patients during this public health crisis, samples from appropriate clinical sources are being tested. Negative test results derived from specimens received in non-commercially manufactured viral collection and transport media, or in media and sample collection kits not yet authorized by FDA for COVID-19 testing should be cautiously evaluated and the patient potentially subjected to extra precautions such as additional clinical monitoring, including collection of an additional specimen. Methodology: Nucleic Acid Amplification Test (NAAT) includes RT-PCR or TMA Additional information about COVID-19 can be found at the [employer] website: www.[employer]/Covid19. Test performed at [facility] [place] [address] [place] [address] Director: CURRY BAEZA DO,MPH FIRST TEST UNKNOWN 09/01/2020 3:38 PM CDT [facility] EMPLOYED IN HEALTHCARE UNKNOWN 09/01/2020 3:38 PM CDT [facility] SYMPTOMATIC DEFINED BY CDC UNKNOWN 09/01/2020 3:38 PM CDT [facility] DATE OF SYMPTOM ONSET UNKNOWN 09/01/2020 3:44 PM CDT [facility] HOSPITALIZATION STATUS NO 09/01/2020 3:38 PM CDT [facility] PATIENT IN ICU NO 09/01/2020 3:38 PM CDT [facility] RESIDENT OF [facility] UNKNOWN 09/01/2020 3:38 PM CDT [facility] UNKNOWN 09/01/2020 3:38 PM CDT [facility] PATIENT'S RACE WHITE OR 09/01/2020 3:38 PM CDT [facility] ETHNICITY NONHISPANIC 09/01/2020 3:38 PM CDT [facility] SOURCE (QST) NASOPHARYNGEAL SWAB 09/01/2020 3:38 PM CDT [facility] NASOPHARYNGEAL SWAB / Unknown 09/01/2020 12:23 PM CDT Donovan Parks MD MICROBIOLOGY - GENERAL ORDERABLE S Final Result [facility] [address] [place] [address], [facility] [address] [address], documented in this encounter Visit Diagnoses Diagnosis Dysphagia- Primary Dysphagia, unspecified documented in this encounter Additional Health Concerns Infection Onset Date Last Indicated Resolved Time 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 06/30/2017 COVID-19 Rule Out 09/01/2020 09/01/2020 09/02/2020 10:06 PM CDT COVID-19 Rule Out 12/16/2020 12/16/2020 12/17/2020 4:31 PM LOCOMOTIVE SUPERVISOR COVID-19 Rule Out 06/05/2021 06/05/2021 06/05/2021 12:31 PM CDT COVID-19 Rule Out 10/23/2021 10/23/2021 10/23/2021 9:25 AM LOCOMOTIVE SUPERVISOR COVID-19 Rule Out 10/23/2021 10/23/2021 10/24/2021 12:21 AM LOCOMOTIVE SUPERVISOR COVID-19 Rule Out 01/15/2022 01/15/2022 01/20/2022 10:53 AM LOCOMOTIVE SUPERVISOR COVID-19 Rule Out 04/21/2022 04/21/2022 04/21/2022 11:42 AM CDT COVID-19 Rule Out 04/21/2022 04/21/2022 04/26/2022 7:02 AM CDT COVID-19 Rule Out 10/06/2022 10/06/2022 10/06/2022 1:21 PM LOCOMOTIVE SUPERVISOR COVID-19 Rule Out 10/06/2022 10/06/2022 10/07/2022 3:34 PM LOCOMOTIVE SUPERVISOR COVID-19 Rule Out 09/14/2023 09/14/2023 09/14/2023 3:48 PM CDT COVID-19 Rule Out 11/02/2024 11/02/2024 11/02/2024 4:03 PM LOCOMOTIVE SUPERVISOR Assessment Noted Time PHQ-9 Depression Total Score: 020 1:12 PM CDT documented as of this encounter Care Teams Dietetics Professor Relationship Specialty Start Date End Date Daryl Metzger MD PCP - General [facility] 08/20/20 10/09/20 Dasha Conway, [facility]- [address] [place] [id number] PCP - General 11/02/24 documented as of this encounter
--- OUTSIDE RECORDS SUMMARY | 2025-02-11 16:47 | XMS_ITS | Encounter Summary ---
Author Organization [facility] Address [address] [place] [address] Care Team Providers Care [employer] Electrical [employer] Designer Name Role Phone Dasha Conway [facility] Primary Care Provider [phone]- [phone] Encounter Details Date Type Department Care Team (Latest Contact Info) Description 04/01/2023 LX Enterprisest Message Enc [facility] - [place] [address] [address] [place] [address] Curtis Diaz MD [address] [facility] [address] [place] [address] Home from surgery Social History Tobacco Use Types Packs/Day Years [...] Sex Assigned at Female 01/08/2021 9:43 AM CUT ORDER HAND Legal Sex Female 5:13 PM CDT Gender Identity Female 01/08/2021 9:43 AM CUT ORDER HAND Sexual Orientation Straight 01/08/2021 9: 43 AM CUT ORDER HAND COVID-19 Exposure Response Date Recorded In the last 10 days, have asif rodriguez been in contact with someone who was confirmed or suspected to have Coronavirus/COVID-19? No / Unsure 04/04/2023 7:38 AM CDT documented as of this encounter [...] Rule Out 11/02/2024 11/02/2024 11/02/2024 4:03 PM CUT ORDER HAND Assessment Noted Time PHQ-9 Depression Total Score: 11 022 12:00 PM CUT ORDER HAND documented as of this encounter Care Teams [employer] Designer Relationship Specialty Start Date End Date Dasha Conway, [facility]- [address] [place] [id number] PCP - General 11/02/24 documented as of this encounter
--- OUTSIDE RECORDS SUMMARY | 2025-02-11 16:47 | XMS_ITS | Clinical Summary ---
Author Organization [facility] [address] Address [address] [place] [address] Care Team Providers Care Extraction Supervisor Name Role Phone Donovan Parks MD Unavailable Dasha Conway NP Primary Care Provider [phone] Allergies Active Allergy Reactions Criticality Noted Date [...] 11/06/2024 Assessment & Plan (11/06/2024 3:13 PM SPRAY MACHINE OPERATOR): Myocardial ischemia ruled out. Differential also includes [...] 10/10/2024 Assessment & Plan (10/10/2024 9:05 PM SPRAY MACHINE OPERATOR): States that she has tried multiple medications in the past and she doesn't like any of them. Doesn't do well with them. Does not wish to try further treatment. Fatigue 10/10/2024 Assessment & Plan (10/10/2024 9:06 PM SPRAY MACHINE OPERATOR): Concern for M.S. will get updated MRI [...] 08/23/2024 Assessment & Plan (10/10/2024 9:03 PM SPRAY MACHINE OPERATOR): Stable. Not currently on medication. A1c has been 6.1% . Will continue to monitor Assessment & Plan (08/27/2024 7:48 AM CDT): Well controlled without medication. A1c 6%. Recent labs done at [facility]. MTHFR mutation 01/28/2020 Pericardial effusion 10/04/2019 Overview (10/04/2019): Echo (08/12/18): moderate pericardial effusion with no evidence of tamponade. EF 60-70% Echo (08/22/18) trivial (barely visible) pericardial effusion, EF 50-55% Assessment & Plan (11/06/2024 3:07 PM SPRAY MACHINE OPERATOR): Small pericardial effusion seen on echo done at [facility], which appears to be an improvement over [...] OA B/l hands: negative US right hand/wrist (11/19/19):Mild effusions and power doppler on examination which [...] - no benefit; interacts with Dulera per puljemal Assessment & Plan (11/06/2024 3:09 PM SPRAY MACHINE OPERATOR): Has been told she has has fibromyalgia in the past. Differential includes a fibromyalgia flare. She had received an Rx for Decadron from the ER at [facility] in [place], I encouraged her to go pick that up from the pharmacy and try that this week Assessment & Plan (12/14/2021 11:42 AM SPRAY MACHINE OPERATOR): We had started LDN in 03/2020 however [...] to her PCP. Will give referral to [facility] PT pain program in [place], [place]. Assessment & Plan (11/30/2021 3:33 PM SPRAY MACHINE OPERATOR): Last seen in 03/2020 after being lost [...] benefit and potential interaction with Dulera per planning management it specialist. Started LDN 4.5mg daily on 04/12/2020. Denies side effects but also denies any benefit at this time. Still complaining of severe generalized pain, fatigue, and insomnia. States dilaudid BID helps her hand pain. Recommend she follow up with pcp as they were originally prescribing this. [facility]. Continue LDN 4.5mg daily and give this more time tot take effect. Avoid Cymbalta and amitriptyline as patient reports suicidal ideation with antidepressants in the past. Failed gabapentin and had side effects to Lyrica. Follow up in 4-6 weeks. Sooner if needed. Discussed with Dr. Soler. Assessment & Plan (01/08/2020 3:02 PM SPRAY MACHINE OPERATOR): Tolerating flexeril 10mg BID and reports some [...] Soler. Assessment & Plan (12/26/2019 10:32 AM SPRAY MACHINE OPERATOR): Tolerating tizanidine 4mg TID and notes some [...] office. Assessment & Plan (11/28/2019 12:40 PM SPRAY MACHINE OPERATOR): Tolerating tizanidine 2mg BID and feels it [...] needed. Assessment & Plan (10/16/2019 4:20 PM SPRAY MACHINE OPERATOR): US right hand/wrist (10/09/19):Mild effusions and power doppler on examination which will have to be correlated clinically. Grade 1 power doppler in the wrist and radial/scaphoid joint. Grade 1 effusion in the 3rd PIP joint. An enlarged median nerve is identified. Serologies revealed an elevated WBC (15.1), however other serological testing was unremarkable. Radiographs from previous reimbursement consultant revealed mild degenerative changes in the lumbar [...] Soler. Assessment & Plan (10/02/2019 4:02 PM SPRAY MACHINE OPERATOR): Patient presents with widespread pain in her hands, knees, and feet for the past 3-4 months. Has generalized pruritic, red papules on torso. Reports photosensitivity, pleuritic pains, cough however is a smoker, dry eyes and mouth, and oral ulcers. Currently on prednisone 20mg taper without any improvement of her symptoms. Synovitis with tenderness noted on peripheral joint exam. Soft tissue tenderness noted [id number] back on exam. FHx of 2 sisters with fibromyalgia and mother with psoriatic arthritis. Had x-rays through previous rheum which were scanned into Epic today. Previous serologies were also unremarkable. Symptoms and exam are suspicious for fibromyalgia. Because recent CY was negative per previous reimbursement consultant, it makes the possibility of SLE less likely. Will order appropriate serologies and a right hand/wrist US to further evaluate. Recommend patient see dermatology for rash. Follow up in 2 weeks. Sooner if needed. Seen with Dr. Soler. COPD (chronic obstructive pulmonary disease) Abnormal thyroid function test 01/03/2018 Assessment & Plan (01/03/2018 4:31 PM SPRAY MACHINE OPERATOR): Differential would include euthroid sick syndrome, Subclinical [...] 01/17/2015 Assessment & Plan (11/06/2024 3:09 PM SPRAY MACHINE OPERATOR): Differential also includes asthma. She has an [...] unchanged. Assessment & Plan (12/14/2021 11:43 AM SPRAY MACHINE OPERATOR): Repeat serologies with AVISE revealed only a [...] currently on Xarelto. Will give referral to [facility] PT pain program. Discussed scheduling f/u in 4 months however there is not much in terms of treatment management that we would be able to offer at this point. Patient spoke with Dr. Soler as well. Assessment & Plan (11/30/2021 3:33 PM SPRAY MACHINE OPERATOR): Previously reported photosensitivity, pleuritic pains, cough however [...] time. Assessment & Plan (01/08/2020 1:59 PM SPRAY MACHINE OPERATOR): Reports photosensitivity, pleuritic pains, cough however is a smoker, dry eyes and mouth, and oral ulcers. Repeat AVISE revealed a low positive RF, however no obvious synovitis noted on exam today and previous US was unremarkable. Symptoms do not respond to steroids. Assessment & Plan (12/26/2019 10:35 AM SPRAY MACHINE OPERATOR): Reports photosensitivity, pleuritic pains, cough however is [...] 08/23/2024 Assessment & Plan (12/14/2021 11:09 AM SPRAY MACHINE OPERATOR): C/o red, pruritic papules over torso. FHx of mother with psoriatic arthritis. Pictures of rash on back sent via [employer] appear hive-like and do not have any erythema or notable scale. Recommend f/u with a medical anthropology director. Assessment & Plan (11/30/2021 3:31 PM SPRAY MACHINE OPERATOR): C/o red, pruritic papules over torso. FHx of mother with psoriatic arthritis. Recommend f/u with dermatology. Assessment & Plan (04/15/2020 10:19 AM CDT): Previous exam noted dry flaky, skin on hands with red demarcation around wrists suspicious for psoriasis. Now patient complaining of scaling rash on scalp. FHx of mother with psoriatic arthritis. Assessment & Plan (01/08/2020 1:58 PM SPRAY MACHINE OPERATOR): Previous exam noted dry flaky, skin on hands with red demarcation around wrists suspicious for psoriasis. Now patient complaining of scaling rash on scalp. FHx of mother with psoriatic arthritis. Assessment & Plan (12/26/2019 10:21 AM SPRAY MACHINE OPERATOR): Previous exam noted dry flaky, skin on hands with red demarcation around wrists suspicious for psoriasis. Now patient complaining of scaling rash on scalp. FHx of mother with psoriatic arthritis. Assessment & Plan (11/28/2019 12:41 PM SPRAY MACHINE OPERATOR): Rash improved once prednisone was stopped. Saw medical anthropology director Dr. Evelyn Gonzales who gave patinet triamcinalone cream, however patient has not started this as her rash is mostly on her face now. Previous exam noted dry, flaky skin on hands with red demarcation around wrists which is suspicious for psoriasis. FHx of mother with psoriatic arthritis. Patient given medical anthropology director Dr. Rose's information at previous visit. Assessment & Plan (10/16/2019 1:57 PM SPRAY MACHINE OPERATOR): Rash improved once prednisone was stopped. Saw medical anthropology director Dr. Evelyn Gonzales who gave patinet triamcinalone cream, however patient has not started this as her rash is mostly on her face now. Today notes dry, flaky skin on hands with red demarcation around wrists which is suspicious for psoriasis. FHx of mother with psoriatic arthritis. Patient given medical anthropology director Dr. Rose's information for further evaluation. Assessment & Plan (10/02/2019 4:05 PM SPRAY MACHINE OPERATOR): Generalized, erythematous papules noted on anterior/posterior torso, [...] 08/23/2024 Dysmenorrhea 08/14/2012 08/23/2024 Endometriosis 08/14/2012 08/23/2024 Encounters Date Type Department Care Team Description 02/11/2025 Nurse Triage [facility] Primary Care at [address] [address] Dasha Conway NP 02/08/2025 Orders Only [facility] at [address] [place] [id number] Sheba Moya NP Tachycardia (Primary Dx); Palpitations 01/04/2025 2:15 PM SPRAY MACHINE OPERATOR Office Visit [facility] at [facility] [address] [place] [address] Sheba oMya NP Pericardial effusion (Primary Dx); Other chest pain; Mixed hyperlipidemia; Family history of cardiovascular disease 01/01/2025 12:44 PM SPRAY MACHINE OPERATOR - 01/01/2025 11:59 PM SPRAY MACHINE OPERATOR Hospital Encounter [facility] [address] [place] [address] Breast pain Discharge Disposition: Discharge to home or self care from Last 3 Months Immunizations Immunization Administration Dates Next Due Influenza, Quadrivalent, Spl it, Preservative Free, Intramuscular 08/06/2022 Influenza, Unspecified 08/23/2024(Deferr ed: Patient Refused),11/21/2023(Deferred: Patient Refused),10/30/2019,08/26/2015, 015 Pneumococcal Conjugate PCV 13 09/14/2022 Pneumococcal Polysaccharide PPV23 10/09/2020 Tdap 03/13/2015 Surgical History Surgery Date Site/Laterality Comments ENDOMETRIAL ABLATION HYSTERECTOMY PARTIAL-OVARIES STILL INTACT LAPAROSCOPY X 3 CHOLECYSTECTOMY BREAST SURGERY 03/21/2023 - 04/20/2023 BREAST AUGMENTATION - has had them removed Medical History Medical History Date Comments Hyperthyroidism Asthma Schizoaffective disorder (HCC) IBS (irritable bowel syndrome) Anxiety Generalized anxiety disorder Factor 5 Leiden mutation, heterozygous MTHFR mutation Fibromyalgia Nephrolithiasis Gestational diabetes mellitus, class A2 01/17/20 15 Other chronic pancreatitis (HCC) 11/16/2023 Polyarthralgia 12/26/2019 US L hand/wrist (12/02/21): 1) Moderate synovial [...] in comparison to previous US of the RIG Tinnitus Oral thrush Ear problems Thrush, oral Smoking Family History Medical History Relation Name Comments Cancer Father Prostate Colon cancer Father Diabetes Father type 2 Cancer Father's Sister Lung Heart attack Maternal Grandfather Brain cancer Maternal Grandmother Cancer Mother's Sister Lung Cancer Paternal Grandfather Breast cancer Neg Hx Ovarian cancer Neg Hx Thyroid cancer Neg Hx Relation Name Status Comments Father Alive Father's Sister 2 AUNTS Maternal Grandfather Maternal Grandmother Mother Alive Mother's Sister 2 AUNTS Paternal Grandfather Social History Tobacco Use Types Packs/Day Years [...] on file Legal Sex Female 3:37 AM SPRAY MACHINE OPERATOR Gender Identity Female 10/02/2019 1:12 AM SPRAY MACHINE OPERATOR Sexual Orientation Straight 10/02/2019 1: 12 AM SPRAY MACHINE OPERATOR 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 Not on file Not on file Obstetrics History Para Term AB IAB SAB Ectopic Multiple Livin g Live Births 6 1 1 Date Outcome GA Total Labor Labor/2nd/3rd Weight Sex Type Anes PTL Jocelyne A1 A5 Name Clin Term Last Filed Vital Signs Vital Sign Reading Time Taken Comments Blood Pressure 134/81 01/04/2025 2:14 PM SPRAY MACHINE OPERATOR Pulse 66 01/04/2025 2:14 PM SPRAY MACHINE OPERATOR Temperature 37 C (98.6 F) 11/01/2024 2:35 PM SPRAY MACHINE OPERATOR Respiratory Rate 18 01/04/2025 2:14 PM SPRAY MACHINE OPERATOR Oxygen Saturation 99% 11/01/2024 2:35 PM SPRAY MACHINE OPERATOR Inhaled Oxygen Concentration - - Weight 69.4 kg (153 lb) 01/04/2025 2:14 PM SPRAY MACHINE OPERATOR Height 160 cm (5' 3 ) 01/04/2025 2:14 PM SPRAY MACHINE OPERATOR Body Mass Index 27.1 01/04/2025 2:14 PM SPRAY MACHINE OPERATOR Plan of Treatment Health Maintenance Due Date Last Done Comments Dilated Eye Exam 1980 Foot Exam 1980 Varicella Vaccines (1 of 2 - 13+ 2-dose series) 1993 Hepatitis B Screening 1998 Regular Well Visit/Exam 18-64 1998 DTaP/Tdap/Td Vaccine (2 - Td or Tdap) 03/13/2025 03/13/2015 Hemoglobin A1C 04/11/2025 10/12/2024, 07/22, 06/29/2017 Influenza Vaccine (#1) 2025 , 10/30/2019, 08/26/2015, Additional history exists Postponed from 07/22/2024 (Patient declined, but will receive in the future) Albumin Creatinine Ratio, Urine 08/23/2025 08/23/2024 eGFR 08/23/2025 08/23/2024, 07/22, 01/31/2022, Additional history exists Depression Screening 10/10/2025 10/10/2024, 08/23/2024, 01/03/2018 Lipid Panel 10/12/2025 10/12/2024, 07/22, 11/16/2023, Additional history exists Breast Cancer Screening-Mammogram 01/01/2026 01/01/2025, 05/07/2020 Pneumococcal vaccine <65 (3 of 3 - PCV20 or PCV21) 2030 09/14/2022, 10/09/2020 Hepatitis C Screening Completed 10/02/2019 HPV Vaccines Aged Out No longer eligi ble based on patient's age to complete this topic Procedures Procedure Name Priority Date/Time Associated Diagnosis Comments DIAGNOSTIC MAMMOGRAM BILATERAL W MARQUIS Schedule Routine, Read Routine (OP Routine) 01/01/2025 1:13 PM SPRAY MACHINE OPERATOR Breast pain HEMOGLOBIN A1C Routine 10/12/2024 3:00 PM SPRAY MACHINE OPERATOR Type 2 diabetes mellitus without complication, without long-term current use of insulin (HCC) LIPID PANEL Routine 10/12/2024 3:00 PM SPRAY MACHINE OPERATOR Type 2 diabetes mellitus without complication, without long-term current use of insulin (HCC) EGFR Routine 08/23/2024 3:03 PM CDT Type 2 diabetes mellitus without complication, without long-term current use of insulin (HCC) ALBUMIN CREATININE RATIO, URINE Routine 08/23/2024 3:03 PM CDT Type 2 diabetes mellitus without complication, without long-term current use of insulin (HCC) HEPATITIS PANEL, ACUTE Routine 10/02/2019 3:33 PM SPRAY MACHINE OPERATOR from Last 3 Months or Most Recently Relevant to Health Maintenance Results * Diagnostic Mammogram Bilateral W Marquis (01/01/2025 1:13 PM SPRAY MACHINE OPERATOR) Anatomical Region Laterality Modality Breast Bilateral Mammography 01/01/2025 1:27 PM SPRAY MACHINE OPERATOR Impressions 01/01/2025 1:27 PM SPRAY MACHINE OPERATOR No evidence of malignancy. Follow-up in 1 year with screening mammography is recommended. BI-RADS: 1 - Negative. The patient has been or will be contacted. The patient will be entered into a reminder system with a target due date of 1 year for her next mammogram. Electronically signed by: Ifrah Serrano M.D. Narrative 01/01/2025 1:27 PM SPRAY MACHINE OPERATOR EXAMINATION: DIAGNOSTIC MAMMOGRAM BILATERAL W MARQUIS ORDERING [...] architectural distortion. There is no significant change. us Dasha Conway PRINCIPAL CLOUD ARCHITECT IMG MAMMO PROCEDURES Final Re sult * (ABNORMAL) Hemoglobin A1c (10/12/2024 3:00 PM SPRAY MACHINE OPERATOR) Hgb A1C 6.1(H) 4.0 - 5.6 % Estimated Average Glucose 128 mg/dL JOAN CORONEL Comment: The ADA recommends reporting an estimated Average Glucose (eAG) with all Hemoglobin A1c results using the equation derived from a study of 507 normal and diabetic adults. Minority populations were underrepresented and children were not included. (Diabetes Care 31:7233-7276, 2008). The eAG is not equivalent to a fasting glucose. Blood 10/12/2024 3:00 PM SPRAY MACHINE OPERATOR 10/12/2024 8:24 PM SPRAY MACHINE OPERATOR us Dasha Conway NP LAB BLOOD ORDERABLES Final Re sult JOAN CORONEL [id number] Department [place] [address] * (ABNORMAL) Lipid panel (10/12/2024 3:00 PM SPRAY MACHINE OPERATOR) Cholesterol 207(H) 30 - 199 mg/dL Comment: [...] on 2018. Triglycerides 213(H) <=149 mg/dL JOAN CORONEL Comment: Interpretive Data Ages [...] on 2018. HDL 36(L) >=40 mg/dL JOAN CORONEL Comment: Interpretive Data Ages [...] 2018. LDL, calculated 133(H) <=129 mg/dL JOAN CORONEL Comment: Interpretive Data Ages < or = 19 years Acceptable: <110 mg/dL Borderline high: 110-129 mg/dL High: >or= 130 mg/dL Ages > or = 20 years Optimal: <100 mg/dL Near optimal: 100-129 mg/dL Borderline high: 130-159 mg/dL High: >160 mg/dL Calculated using the Felton LDL-C estimating equation. This equation was implemented on 2024. Prior to this date LDL-C was estimated using the Friedewald equation. Literature References: 1. Expert Panel on Integrated Guidelines for Cardiovascular Health and Risk Reduction in Children and Adolescents. Pediatrics 2011;128:S213 2. NCEP Expert Panel. Circulation 2004;110:227 3. Felton M et al. LINN Cardiol. 2019March 21;5(5):540-548. doi: 10.1001/jamacardio.2020.0013 Current Interpretive Data was last revised on 2024. Non-HDL Cholesterol 171 mg/dL JOAN Comment: Interpretive Data Ages < [...] ratio 6 JOAN Blood 10/12/2024 3:00 PM SPRAY MACHINE OPERATOR 10/12/2024 8:24 PM SPRAY MACHINE OPERATOR Dasha Conway NP LAB BLOOD ORDERABLES Final Re sult Performing Organization Address [facility] Co de Phone Number JOAN CORONEL [phone] [place] [address] * eGFR (08/23/2024 3:03 PM CDT) eGFR [...] ORDERABLES Final Re sult Performing Organization Address [facility] Co de Phone Number JOAN CORONEL [phone] [address] [place] [address] * Albumin Creatinine Ratio, Urine (08/23/2024 3:03 PM CDT) Albumin Ur <12.0 mg/L Comment: Interpretive Data No reference range established. Current interpretive data was last revised 2019. Creatinine Ur 37.8 mg/dL JOAN CORONEL Comment: Interpretive Data No reference range established. Current interpretive data was last revised 2019. Albumin Creatinine Ratio, Ur See Comment 1 - 29 JOAN CORONEL Comment:Unable to calculate Urine 08/23/2024 3:03 PM CDT 08/23/2024 9:30 PM CDT Dasha Conway NP LAB URINE ORDERABLES Final Re sult Performing Organization Address City/State/[facility] Co de Phone Number JOAN [phone] [address] Department [place] [address] * Hepatitis panel, acute (10/02/2019 3:33 PM SPRAY MACHINE OPERATOR) Hep A IgM NON-REACT DAVE NON-REACT DAVE [facility] [place] Comment: For additional information, please refer to http://IntervalZero.Qwalytics/faq/DNC216 (This link is being provided for informational/ [...] a test for HCV RNA (test code 08281) is suggested. For additional information please refer to http://IntervalZero.Qwalytics/faq/XQP89o1 (This link is being provided for informational/ educational purposes only.) 10/02/2019 3:33 PM SPRAY MACHINE OPERATOR 10/02/2019 3:35 PM SPRAY MACHINE OPERATOR Narrative Resulting Agency Comment Performing Organization Information: Site ID: [place] Name: [facility] Address: [address] [address] Director: Dustin Walter D.O., MPH [facility] GE NERAL ORDERABLES Final Result [facility] [place] [address] from Last 3 Months or Most Recently Relevant to Health Maintenance Insurance [facility] MEDIC[facility] ADVANTAGE IDPA [facility] MED[facility] [employer]PA [facility] MED[facility] ADV[facility] IDPA Care Teams Extraction Supervisor Relationship Specialty Start Date End Date Dasha Conway NP PCP - General Family Medicine 08/23/24 Donovan Parks MD Referring Physician Gastroenterology 06/12/21
--- OUTSIDE RECORDS SUMMARY | 2025-02-11 16:47 | XMS_ITS | Encounter Summary ---
Author Organization [facility] Address [facility] [place] [address] Care Team Providers Care Power Shovel Mechanic Name Role Phone Daryl Metzger MD Primary Care Provider Bradley Gallegos MD Primary Care Provider [phone] Daryl Metzger MD Primary Care Provider Dasha Vicente [facility] Primary Care Provider [phone] Encounter Details Date Type Department Care Team (Late st Contact Info) Description 07/13/2020 directworxt Message Enc [facility] Medical Group [facility] Medicine [facility] [address] [place] [id number] Daryl Metzger MD RE: Referral Request Social History Tobacco Use Types Packs/Day Years Used Date Smoking Tobacco: Every Day Cigarettes Smokeless Tobacco: Never Alcohol Use Standard Drinks/Week Comments Not Currently 0 (1 standard drink = 0.6 oz pur e alcohol) PHQ-2 Answer Date Recorded PHQ-2 Score 3 06/23/2020 Comments No Sex and Gender Information Value Date Recorded Sex Assigned at Female 01/08/2021 9:43 AM EXPORT SALES ASSISTANT Legal Sex Female 5:13 PM CDT Gender Identity Female 01/08/2021 9:43 AM EXPORT SALES ASSISTANT Sexual Orientation Straight 01/08/2021 9: 43 AM EXPORT SALES ASSISTANT COVID-19 Exposure Response Date Recorded In the last month, have you been in contact with someone who was confirmed or suspected to have Coronavirus / COVID-19? No / Unsure 07/16/2020 3:22 PM CDT documented as of this encounter Progress Notes * Morro Hawthorne MA - 07/14/2020 2:23 PM CDT I put the appointment information in the referral regarding the patient upcoming appt with pain consultants. I am also scanning the info sheet documented in this encounter Plan of Treatment Not on file documented as of this encounter Visit Diagnoses Not on filedocumented in this encounter Additional Health Concerns Infection Onset Date Last Indicated Resolved Time 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 06/30/2017 COVID-19 Rule Out 09/01/2020 09/01/2020 09/02/2020 10:06 PM CDT COVID-19 Rule Out 12/16/2020 12/16/2020 12/17/2020 4:31 PM EXPORT SALES ASSISTANT COVID-19 Rule Out 06/05/2021 06/05/2021 06/05/2021 12:31 PM CDT COVID-19 Rule Out 10/23/2021 10/23/2021 10/23/2021 9:25 AM EXPORT SALES ASSISTANT COVID-19 Rule Out 10/23/2021 10/23/2021 10/24/2021 12:21 AM EXPORT SALES ASSISTANT COVID-19 Rule Out 01/15/2022 01/15/2022 01/20/2022 10:53 AM EXPORT SALES ASSISTANT COVID-19 Rule Out 04/21/2022 04/21/2022 04/21/2022 11:42 AM CDT COVID-19 Rule Out 04/21/2022 04/21/2022 04/26/2022 7:02 AM CDT COVID-19 Rule Out 10/06/2022 10/06/2022 10/06/2022 1:21 PM EXPORT SALES ASSISTANT COVID-19 Rule Out 10/06/2022 10/06/2022 10/07/2022 3:34 PM EXPORT SALES ASSISTANT COVID-19 Rule Out 09/14/2023 09/14/2023 09/14/2023 3:48 PM CDT COVID-19 Rule Out 11/02/2024 11/02/2024 11/02/2024 4:03 PM EXPORT SALES ASSISTANT Assessment Noted Time PHQ-9 Depression Total Score: 13 020 1:12 PM CDT documented as of this encounter Care Teams Power Shovel Mechanic Relationship Specialty Start Date End Date Daryl Metzger MD PCP - General FAMILY MEDICINE SPORTS MEDICINE 06/23/20 08/12/20 Bradley Carmichael MD [address] [place] [address] [address] [place] [address] PCP - General INTERNAL MEDICINE 08/13/20 08/19/20 Daryl Metzger MD PCP - General FAMILY MEDICINE SPORTS MEDICINE 08/20/20 10/09/20 Dasha Conway, [facility]- [address] [place] [id number] PCP - General 11/02/24 documented as of this encounter
--- OUTSIDE RECORDS SUMMARY | 2025-02-11 16:47 | XMS_ITS | Encounter Summary ---
Author Organization [facility] - [facility] Address [facility] [place] [address] Care Team Providers Care Magnetic Prospector Name Role Phone Dasha Conway [facility] Primary Care Provider [phone]- [phone] Encounter Details Date Type Department Care Team (Latest Contact Info) Description 07/06/2023 LucidPort Technologyt Message Enc [facility] Medical Group Multispecialty Care - [address] [address] [address] [place] [address] [place] [address] [place] [address] [address] [place] [address] Pain meds for mouth Social History Tobacco Use Types Packs/Day Years [...] Sex Assigned at Female 01/08/2021 9:43 AM PRODUCE TEAM MEMBER Legal Sex Female 5:13 PM CDT Gender Identity Female 01/08/2021 9:43 AM PRODUCE TEAM MEMBER Sexual Orientation Straight 01/08/2021 9: 43 AM PRODUCE TEAM MEMBER documented as of this encounter Functional Status [...] Rule Out 11/02/2024 11/02/2024 11/02/2024 4:03 PM PRODUCE TEAM MEMBER Assessment Noted Time PHQ-9 Depression Total Score: 11 11/05/2 022 12:00 PM PRODUCE TEAM MEMBER documented as of this encounter Care Teams Magnetic Prospector Relationship Specialty Start Date End Date Dasha Conway FNP-STEPH [address] [place] [address] PCP - General 11/02/24 documented as of this encounter
--- OUTSIDE RECORDS SUMMARY | 2025-02-11 16:47 | XMS_ITS | Encounter Summary ---
Author Organization [facility] Address [address] [place] [address] Care Team Providers Care Platen Press Operator Apprentice Name Role Phone Daryl Metzger MD Primary Care Provider Bradley Gallegos MD Primary Care Provider [phone] Daryl Metzger MD Primary Care Provider Dasha Vicente [facility] Primary Care Provider [phone]- [phone] Encounter Details Date Type Department Care Team (Late st Contact Info) Description 08/09/2020 Bohemian Guitarst Message Enc [facility] Medical Group [facility] [address] [place] [address] Daryl Metzger MD RE: Follow Up/Update Social [...] Sex Assigned at Female 01/08/2021 9:43 AM MANAGER QUALITY Legal Sex Female 5:13 PM CDT Gender Identity Female 01/08/2021 9:43 AM MANAGER QUALITY Sexual Orientation Straight 01/08/2021 9: 43 AM MANAGER QUALITY COVID-19 Exposure Response Date Recorded In the [...] Rule Out 12/16/2020 12/16/2020 12/17/2020 4:31 PM MANAGER QUALITY COVID-19 Rule Out 06/05/2021 06/05/2021 06/05/2021 12:31 PM CDT COVID-19 Rule Out 10/23/2021 10/23/2021 10/23/2021 9:25 AM MANAGER QUALITY COVID-19 Rule Out 10/23/2021 10/23/2021 10/24/2021 12:21 AM MANAGER QUALITY COVID-19 Rule Out 01/15/2022 01/15/2022 01/20/2022 10:53 AM MANAGER QUALITY COVID-19 Rule Out 04/21/2022 04/21/2022 04/21/2022 11:42 AM CDT COVID-19 Rule Out 04/21/2022 04/21/2022 04/26/2022 7:02 AM CDT COVID-19 Rule Out 10/06/2022 10/06/2022 10/06/2022 1:21 PM MANAGER QUALITY COVID-19 Rule Out 10/06/2022 10/06/2022 10/07/2022 3:34 PM MANAGER QUALITY COVID-19 Rule Out 09/14/2023 09/14/2023 09/14/2023 3:48 PM CDT COVID-19 Rule Out 11/02/2024 11/02/2024 11/02/2024 4:03 PM MANAGER QUALITY Assessment Noted Time PHQ-9 Depression Total Score: 13 020 1:12 PM CDT documented as of this encounter Care Teams Platen Press Operator Apprentice Relationship Specialty Start Date End Date Daryl Metzger MD PCP - General FAMILY MEDICINE SPORTS MEDICINE 06/23/20 08/12/20 Bradley Carmichael MD [address] [place] [address] MEDICAL OFFICE BUILDING [address] [place] [address] PCP - General INTERNAL MEDICINE 08/13/20 08/19/20 Daryl Metzger MD PCP - General FAMILY MEDICINE SPORTS MEDICINE 08/20/20 10/09/20 Dasha Conway, SCHOOL PRINCIPAL- [address] [place] [address] PCP - General 11/02/24 documented as of this encounter
--- OUTSIDE RECORDS SUMMARY | 2025-02-11 16:47 | XMS_ITS | Encounter Summary ---
Author Organization [facility] Address [address] [place] [address] Care Team Providers Care Payroll And Benefits Specialist Name Role Phone Daryl Metzger MD Primary Care Provider Dasha Vicente [facility] Primary Care Provider [phone]- [phone] Encounter Details Date Type Department Care Team (Late st Contact Info) Description 08/25/2020 MyChart Message Enc [facility] Medical Group Multispecialty Care - [facility] [address] [facility] [address] [place] [id number] Donovan Parks MD [facility] [address] [place] [address] RE: Question Social History Tobacco Use Types Packs/Day Years Used Date Smoking Tobacco: Every Day Cigarettes Smokeless Tobacco: Never Alcohol Use Standard Drinks/Week Comments Not Currently 0 (1 standard drink = 0.6 oz pur e alcohol) PHQ-2 Answer Date Recorded PHQ-2 Score 3 06/23/2020 Comments No Sex and Gender Information Value Date Recorded Sex Assigned at Female 01/08/2021 9:43 AM TEXTILE MACHINE MECHANIC Legal Sex Female 5:13 PM CDT Gender Identity Female 01/08/2021 9:43 AM TEXTILE MACHINE MECHANIC Sexual Orientation Straight 01/08/2021 9: 43 AM TEXTILE MACHINE MECHANIC COVID-19 Exposure Response Date Recorded In [...] Rule Out 12/16/2020 12/16/2020 12/17/2020 4:31 PM TEXTILE MACHINE MECHANIC COVID-19 Rule Out 06/05/2021 06/05/2021 06/05/2021 12:31 PM CDT COVID-19 Rule Out 10/23/2021 10/23/2021 10/23/2021 9:25 AM TEXTILE MACHINE MECHANIC COVID-19 Rule Out 10/23/2021 10/23/2021 10/24/2021 12:21 AM TEXTILE MACHINE MECHANIC COVID-19 Rule Out 01/15/2022 01/15/2022 01/20/2022 10:53 AM TEXTILE MACHINE MECHANIC COVID-19 Rule Out 04/21/2022 04/21/2022 04/21/2022 11:42 AM CDT COVID-19 Rule Out 04/21/2022 04/21/2022 04/26/2022 7:02 AM CDT COVID-19 Rule Out 10/06/2022 10/06/2022 10/06/2022 1:21 PM TEXTILE MACHINE MECHANIC COVID-19 Rule Out 10/06/2022 10/06/2022 10/07/2022 3:34 PM TEXTILE MACHINE MECHANIC COVID-19 Rule Out 09/14/2023 09/14/2023 09/14/2023 3:48 PM CDT COVID-19 Rule Out 11/02/2024 11/02/2024 11/02/2024 4:03 PM TEXTILE MACHINE MECHANIC Assessment Noted Time PHQ-9 Depression Total Score: 13 020 1:12 PM CDT documented as of this encounter Care Teams Payroll And Benefits Specialist Relationship Specialty Start Date End Date Daryl Metzger MD PCP - General FAMILY MEDICINE SPORTS MEDICINE 08/20/20 10/09/20 Dasha Conway FNP- [address] [place] [address] PCP - General 11/02/24 documented as of this encounter
--- OUTSIDE RECORDS SUMMARY | 2025-02-11 16:48 | XMS_ITS | Encounter Summary ---
Author Organization [facility] - [facility] Address [address] [place] [address] Care Team Providers Care Spot Facer Name Role Phone Dasha Conway [facility] Primary Care Provider [phone]- [phone] Encounter Details Date Type Department Care Team (Late st Contact Info) Description 04/01/2024 [employer] Message Enc [facility] Medical Group Multispecialty Care - [place] [address] [address] [address] [place] [address] [place] [address] [place] [address] [address] [place] [address] Fluconazole Social History Tobacco Use Types Packs/Day Years Used Date Smoking Tobacco: Every Day Cigarettes 1 30 Smokeless Tobacco: Never Comments:tried patches, gum, lozenges, nicotrol inhaler, auriculotherapy and chantix to quit without success; counseled by Dr Diaz. Alcohol Use Standard Drinks/Week Comments Not Currently 0 (1 standard drink = 0.6 oz pur e alcohol) PHQ-2 Answer Date Recorded Patient Health Questionnaire-2 Score 0 11/16/2023 Comments No Sex and Gender Information Value Date Recorded Sex Assigned at Female 01/08/2021 9:43 AM REAL ESTATE SALES SUPERVISOR Legal Sex Female 5:13 PM CDT Gender Identity Female 01/08/2021 9:43 AM REAL ESTATE SALES SUPERVISOR Sexual Orientation Straight 01/08/2021 9: 43 AM REAL ESTATE SALES SUPERVISOR documented as of this encounter Functional Status [...] PM FAUZIAT Denis Nam RN Active * Because of [...] Time 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 06/30/2017 COVID-19 Rule Out 11/02/2024 11/02/2024 11/02/2024 4:03 PM REAL ESTATE SALES SUPERVISOR Assessment Noted Time PHQ-9 Depression Total Score: 7 11/16/20 23 9:57 AM REAL ESTATE SALES SUPERVISOR documented as of this encounter Care Teams Spot Facer Relationship Specialty Start Date End Date Dasha Conway FNP- [address] [place] [address] PCP - General 11/02/24 documented as of this encounter
--- OUTSIDE RECORDS SUMMARY | 2025-02-11 16:48 | XMS_ITS | Encounter Summary ---
Author Organization [facility] - [facility] Address [address] [place] [address] Care Team Providers Care Electric Organ Checker Name Role Phone Dasha Conway [facility] Primary Care Provider [phone]- [phone] Encounter Details Date Type Department Care Team (Late st Contact Info) Description 03/24/2021 luma-idhart Message Enc [facility] Medical Group Multispecialty Care - [place] [address] [address] [address] [place] [address] [place] [address] [place] [address] [address] [place] [address] Question Social History Tobacco Use Types Packs/Day [...] Sex Assigned at Female 01/08/2021 9:43 AM MAINTENANCE AND CUSTODIAN SUPERVISOR Legal Sex Female 5:13 PM CDT Gender Identity Female 01/08/2021 9:43 AM MAINTENANCE AND CUSTODIAN SUPERVISOR Sexual Orientation Straight 01/08/2021 9: 43 AM MAINTENANCE AND CUSTODIAN SUPERVISOR COVID-19 Exposure Response Date Recorded In the last month, have you been in contact with someone who was confirmed or suspected to have Coronavirus / COVID-19? No / Unsure 03/27/2021 10:23 AM CDT documented as of this encounter Plan of Treatment Not on file documented as of this encounter Visit Diagnoses Not on filedocumented in this encounter Additional Health Concerns Infection Onset Date Last Indicated Resolved Time 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 06/30/2017 COVID-19 Rule Out 06/05/2021 06/05/2021 06/05/2021 12:31 PM CDT COVID-19 Rule Out 10/23/2021 10/23/2021 10/23/2021 9:25 AM MAINTENANCE AND CUSTODIAN SUPERVISOR COVID-19 Rule Out 10/23/2021 10/23/2021 10/24/2021 12:21 AM MAINTENANCE AND CUSTODIAN SUPERVISOR COVID-19 Rule Out 01/15/2022 01/15/2022 01/20/2022 10:53 AM MAINTENANCE AND CUSTODIAN SUPERVISOR COVID-19 Rule Out 04/21/2022 04/21/2022 04/21/2022 11:42 AM CDT COVID-19 Rule Out 04/21/2022 04/21/2022 04/26/2022 7:02 AM CDT COVID-19 Rule Out 10/06/2022 10/06/2022 10/06/2022 1:21 PM MAINTENANCE AND CUSTODIAN SUPERVISOR COVID-19 Rule Out 10/06/2022 10/06/2022 10/07/2022 3:34 PM MAINTENANCE AND CUSTODIAN SUPERVISOR COVID-19 Rule Out 09/14/2023 09/14/2023 09/14/2023 3:48 PM CDT COVID-19 Rule Out 11/02/2024 11/02/2024 11/02/2024 4:03 PM MAINTENANCE AND CUSTODIAN SUPERVISOR Assessment Noted Time PHQ-9 Depression Total Score: 020 1:12 PM CDT documented as of this encounter Care Teams Electric Organ Checker Relationship Specialty Start Date End Date Dasha Conway FNP-STEPH [address] [place] [address] PCP - General 11/02/24 documented as of this encounter
--- OUTSIDE RECORDS SUMMARY | 2025-02-11 16:48 | XMS_ITS | Encounter Summary ---
Author Organization [facility] Address [facility] [place] [address] Care Team Providers Care Supervisor Reactor Fueling Name Role Phone Dasha Conway [facility] Primary Care Provider [phone]- [phone] Encounter Details Date Type Department Care Team (Late st Contact Info) Description 06/23/2023 Arlediat Message Enc [facility] Medical Group Multispecialty Care - [place] [address] [address] [place] [address] [place] [address] [place] [address] 157 [place] [address] Yeast infection Social History Tobacco [...] Sex Assigned at Female 01/08/2021 9:43 AM SANDBLASTING SUPERVISOR Legal Sex Female 5:13 PM CDT Gender Identity Female 01/08/2021 9:43 AM SANDBLASTING SUPERVISOR Sexual Orientation Straight 01/08/2021 9: 43 AM SANDBLASTING SUPERVISOR documented as of this encounter Functional [...] Rule Out 11/02/2024 11/02/2024 11/02/2024 4:03 PM SANDBLASTING SUPERVISOR Assessment Noted Time PHQ-9 Depression Total Score: 11 11/05/ 022 12:00 PM SANDBLASTING SUPERVISOR documented as of this encounter Care Teams Supervisor Reactor Fueling Relationship Specialty Start Date End Date Dasha Conway FNP- [address] [place] [address] PCP - General 11/02/24 documented as of this encounter
--- OUTSIDE RECORDS SUMMARY | 2025-02-11 16:48 | XMS_ITS | Encounter Summary ---
Author Organization [facility] - [facility] Address [facility] [place] [address] Care Team Providers Care Picked Edge Sewing Machine Operator Name Role Phone Dasha Conway [facility] Primary Care Provider [phone]- [phone] Encounter Details Date Type Department Care Team (Latest Contact Info) Description 02/12/2024 Klir Technologiest Message Enc [facility] Medical Group Multispecialty Care - [place] [address] [address] [address] [place] [address] [place] [address] [place] [address] [address] [place] [address] Shoulder/arm pain Social History Tobacco Use Types Packs/Day Years [...] Sex Assigned at Female 01/08/2021 9:43 AM DISABILITIES CAREGIVER Legal Sex Female 5:13 PM CDT Gender Identity Female 01/08/2021 9:43 AM DISABILITIES CAREGIVER Sexual Orientation Straight 01/08/2021 9: 43 AM DISABILITIES CAREGIVER documented as of this encounter Functional Status [...] Rule Out 11/02/2024 11/02/2024 11/02/2024 4:03 PM DISABILITIES CAREGIVER Assessment Noted Time PHQ-9 Depression Total Score: 7 11/16/20 23 9:57 AM DISABILITIES CAREGIVER documented as of this encounter Care Teams Picked Edge Sewing Machine Operator Relationship Specialty Start Date End Date Dasha Conway FNP-STEPH [address] [place] [address] PCP - General 11/02/24 documented as of this encounter
--- OUTSIDE RECORDS SUMMARY | 2025-02-11 16:48 | XMS_ITS | Encounter Summary ---
Author Organization [facility] Address [facility] [place] [address] Care Team Providers Care Industrial Gas Production Operator Name Role Phone Dasha Conway [facility] Primary Care Provider [phone]- [phone] Encounter Details Date Type Department Care Team (Late st Contact Info) Description 07/08/2023 ClearFitt Message Enc [facility] Medical Group Multispecialty Care - [place] [address] [address] [address] [place] [address] [place] [address] [place] [address] [address] [place] [address] Nausea Social History Tobacco Use Types Packs/Day Years [...] Sex Assigned at Female 01/08/2021 9:43 AM BASEBALL SCOUT Legal Sex Female 5:13 PM CDT Gender Identity Female 01/08/2021 9:43 AM BASEBALL SCOUT Sexual Orientation Straight 01/08/2021 9: 43 AM BASEBALL SCOUT documented as of this encounter Functional Status [...] Rule Out 11/02/2024 11/02/2024 11/02/2024 4:03 PM BASEBALL SCOUT Assessment Noted Time PHQ-9 Depression Total Score: 11 022 12:00 PM BASEBALL SCOUT documented as of this encounter Care Teams Industrial Gas Production Operator Relationship Specialty Start Date End Date Dasha Conway FNP- [address] [place] [address] PCP - General 11/02/24 documented as of this encounter
--- OUTSIDE RECORDS SUMMARY | 2025-02-11 16:48 | XMS_ITS | Encounter Summary ---
Author Organization [facility] Address [address] [place] [address] Care Team Providers Care Targeting Acquisition Officer Name Role Phone Dasha Conway [facility] Primary Care Provider [phone]- [phone] Encounter Details Date Type Department Care Team (Latest Contact Info) Description 03/30/2021 LightningBuyt Message Enc [facility] Medical Group Multispecialty Care - [address] [place] [address] Mela Elaine, SYNCHRO ASSEMBLER RE: Test Results Social History Tobacco Use Types Packs/Day Years [...] Sex Assigned at Female 01/08/2021 9:43 AM AIRCRAFT PAINTER APPRENTICE Legal Sex Female 5:13 PM CDT Gender Identity Female 01/08/2021 9:43 AM AIRCRAFT PAINTER APPRENTICE Sexual Orientation Straight 01/08/2021 9: 43 AM AIRCRAFT PAINTER APPRENTICE COVID-19 Exposure Response Date Recorded In [...] Rule Out 10/23/2021 10/23/2021 10/23/2021 9:25 AM AIRCRAFT PAINTER APPRENTICE COVID-19 Rule Out 10/23/2021 10/23/2021 10/24/2021 12:21 AM AIRCRAFT PAINTER APPRENTICE COVID-19 Rule Out 01/15/2022 01/15/2022 01/20/2022 10:53 AM AIRCRAFT PAINTER APPRENTICE COVID-19 Rule Out 04/21/2022 04/21/2022 04/21/2022 11:42 AM CDT COVID-19 Rule Out 04/21/2022 04/21/2022 04/26/2022 7:02 AM CDT COVID-19 Rule Out 10/06/2022 10/06/2022 10/06/2022 1:21 PM AIRCRAFT PAINTER APPRENTICE COVID-19 Rule Out 10/06/2022 10/06/2022 10/07/2022 3:34 PM AIRCRAFT PAINTER APPRENTICE COVID-19 Rule Out 09/14/2023 09/14/2023 09/14/2023 3:48 PM CDT COVID-19 Rule Out 11/02/2024 11/02/2024 11/02/2024 4:03 PM AIRCRAFT PAINTER APPRENTICE Assessment Noted Time PHQ-9 Depression Total Score: 22 021 9:18 AM CDT documented as of this encounter Care Teams Targeting Acquisition Officer Relationship Specialty Start Date End Date Dasha Conway FNP- [address] [place] [address] PCP - General 11/02/24 documented as of this encounter
--- OUTSIDE RECORDS SUMMARY | 2025-02-11 16:48 | XMS_ITS | Encounter Summary ---
Author Organization [facility] Address [address] [place] [address] Phone Care Team Providers Care Assistant Football Coach Name Role Phone Curtis Diaz MD Primary Care Provider [phone] Donovan Parks MD Unavailable Dasha Conway NP Primary Care Provider [phone] Encounter Details Date Type Department Care Team (Late st Contact Info) Description 08/02/2023 Orders Only [facility] Scanning, Provider Social History Tobacco Use Types Packs/Day Years Used Date Smoking Tobacco: Every Day Cigarettes 1 31.2 Started: 11/21/1993 Smokeless Tobacco: Never Alcohol Use Standard Drinks/Week Comments No 0 (1 standard drink = 0.6 oz pur e alcohol) Comments No Sex and Gender Information Value Date Recorded Sex Assigned at Not on file Legal Sex Female 3:37 AM DIRECTOR NEWS Gender Identity Female 10/02/2019 1:12 AM DIRECTOR NEWS Sexual Orientation Straight 10/02/2019 1: 12 AM DIRECTOR NEWS 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 Not on file Not on file documented as of this encounter Plan of Treatment Not on file documented as of this encounter Procedures Procedure Name Priority Date/Time Associated Diagnosis Comments SCAN - RADIOLOGY/IMAGING 08/02/2023 documented in this encounter Results * SCAN - RADIOLOGY/IMAGING (08/02/2023) Anatomical Region Laterality Modality Other us Provider Scanning Final Result documented in this encounter Visit Diagnoses Not on filedocumented in this encounter Care Teams Assistant Football Coach Relationship Specialty Start Date End Date Curtis Diaz MD [address] [place] [address] PCP - General Internal Medicine 06/12/21 08/22/24 Dasha Conway NP [address] [place] [address] PCP - General Family Medicine 08/23/24 Donovan Parks MD [address] [place] [address] Referring Physician Gastroenterology 06/12/21 documented as of this encounter
--- OUTSIDE RECORDS SUMMARY | 2025-02-11 16:48 | XMS_ITS | Encounter Summary ---
Author Organization [facility] - [facility] Address Counts include 234 beds at the [facility] [place] [address] Care Team Providers Care Dresser Tender Name Role Phone Dasha Conway [facility] Primary Care Provider [phone] Encounter Details Date Type Department Care Team (Late st Contact Info) Description 05/18/2023 MyChart Message Enc [facility] Medical Group - [facility] [address] [place], [place] [address] [facility] Provider Air Quality Message Social History Tobacco Use Types Packs/Day Years [...] Assigned at Female 01/08/2021 9:43 AM MANAGER ANALYSIS Legal Sex Female 5:13 PM CDT Gender Identity Female 01/08/2021 9:43 AM MANAGER ANALYSIS Sexual Orientation Straight 01/08/2021 9: 43 AM MANAGER ANALYSIS documented as of this encounter Functional Status [...] 10:59 PM Denis Murphy RN Active * Do you have difficulty [...] Out 11/02/2024 11/02/2024 11/02/2024 4:03 PM MANAGER ANALYSIS Assessment Noted Time PHQ-9 Depression Total Score: 11 11/05/ 022 12:00 PM MANAGER ANALYSIS documented as of this encounter Care Teams Dresser Tender Relationship Specialty Start Date End Date Dasha Conway, SUPERVISOR PAPER MACHINE- [address] [place] [address] PCP - General 11/02/24 documented as of this encounter
--- OUTSIDE RECORDS SUMMARY | 2025-02-11 16:48 | XMS_ITS | Encounter Summary ---
Author Organization [facility] Address [facility] [place] [address] Care Team Providers Care Substation Wireman Name Role Phone Dasha Conway [facility] Primary Care Provider +1- [phone] Encounter Details Date Type Department Care Team (Late st Contact Info) Description 12/08/2020 Prep for Procedure [facility] [address] [place] [address] Donovan Parks MD [address] [address] Social History Tobacco Use Types Packs/Day Years Used Date Smoking Tobacco: Every Day Cigarettes 1 26 Smokeless Tobacco: Never Comments:tried patches, gum, lozenges, nicotrol inhaler and chantix to quit without success. she will begin to cut down gradually Alcohol Use Standard Drinks/Week Comments Not Currently 0 (1 standard drink = 0.6 oz pur e alcohol) PHQ-2 Answer Date Recorded PHQ-2 Score 1 10/21/2020 Comments No Sex and Gender Information Value Date Recorded Sex Assigned at Female 01/08/2021 9:43 AM PETROLEUM REFINERY LABORER Legal Sex Female 5:13 PM CDT Gender Identity Female 01/08/2021 9:43 AM PETROLEUM REFINERY LABORER Sexual Orientation Straight 01/08/2021 9: 43 AM PETROLEUM REFINERY LABORER COVID-19 Exposure Response Date Recorded In the last month, have you been in contact with someone who was confirmed or suspected to have Coronavirus / COVID-19? No / Unsure 12/10/2020 10:34 PM PETROLEUM REFINERY LABORER documented as of this encounter Plan of Treatment Not on file documented as of this encounter Results * PRE-SURGICAL/PRE-PROCEDURE CORONAVIRUS (COVID 19) (12/16/2020 2:19 PM PETROLEUM REFINERY LABORER) CORONAVIRUS SARS COV 2 PCR (RESP) NOT DETECTED NOT DETECTED 12/17/2020 4:31 PM PETROLEUM REFINERY LABORER [facility] Comment: A Not Detected (negative) test result [...] providers and patients using the following websites: https://www.[employer]/home/Covid-19/HCP/NAAT/fact-sheet2 https://www.[employer]/home/Covid-19/Patients/NAAT/ fact-sheet2 This test has been authorized by the FDA under an Emergency Use Authorization (EUA) for use by authorized laboratories. Due to the current public health emergency, [facility] is receiving a high volume of samples [...] about COVID-19 can be found at the [facility] website: www.[employer]/Covid19. Test performed at [facility] [address] [place] [address] Director: CURRY BAEZA DO,MPH FIRST TEST NO 12/16/2020 2:10 PM PETROLEUM REFINERY LABORER [facility] EMPLOYED IN HEALTHCARE NO 12/16/2020 2:10 PM PETROLEUM REFINERY LABORER [facility] SYMPTOMATIC DEFINED BY CDC NO 12/16/2020 2:10 PM PETROLEUM REFINERY LABORER [facility] DATE OF SYMPTOM ONSET UNKNOWN 12/16/2020 2:35 PM PETROLEUM REFINERY LABORER [facility] HOSPITALIZATION STATUS NO 12/16/2020 2:10 PM PETROLEUM REFINERY LABORER [facility] PATIENT IN ICU NO 12/16/2020 2:10 PM PETROLEUM REFINERY LABORER [facility] RESIDENT OF [facility] NO 12/16/2020 2:10 PM PETROLEUM REFINERY LABORER [facility] NOT 12/16/2020 2:10 PM PETROLEUM REFINERY LABORER [facility] PATIENT'S RACE WHITE OR 12/16/2020 2:10 PM PETROLEUM REFINERY LABORER [facility] ETHNICITY NONHISPANIC 12/16/2020 2:10 PM PETROLEUM REFINERY LABORER [facility] SOURCE (QST) NASOPHARYNGEAL SWAB 12/16/2020 2:10 PM PETROLEUM REFINERY LABORER [facility] NASOPHARYNGEAL SWAB / Unknown 12/16/2020 2:19 PM PETROLEUM REFINERY LABORER us Donovan Parks MD MICROBIOLOGY - GENERAL ORDERABLE S Final Result [facility] [address] [place] [address], [facility] [address] [place] [address], documented in this encounter Visit Diagnoses Diagnosis Preop testing- Primary Preoperative examination, unspecified documented in this encounter Additional Health Concerns Infection Onset Date Last Indicated Resolved Time 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 06/30/2017 COVID-19 Rule Out 12/16/2020 12/16/2020 12/17/2020 4:31 PM PETROLEUM REFINERY LABORER COVID-19 Rule Out 06/05/2021 06/05/2021 06/05/2021 12:31 PM CDT COVID-19 Rule Out 10/23/2021 10/23/2021 10/23/2021 9:25 AM PETROLEUM REFINERY LABORER COVID-19 Rule Out 10/23/2021 10/23/2021 10/24/2021 12:21 AM PETROLEUM REFINERY LABORER COVID-19 Rule Out 01/15/2022 01/15/2022 01/20/2022 10:53 AM PETROLEUM REFINERY LABORER COVID-19 Rule Out 04/21/2022 04/21/2022 04/21/2022 11:42 AM CDT COVID-19 Rule Out 04/21/2022 04/21/2022 04/26/2022 7:02 AM CDT COVID-19 Rule Out 10/06/2022 10/06/2022 10/06/2022 1:21 PM PETROLEUM REFINERY LABORER COVID-19 Rule Out 10/06/2022 10/06/2022 10/07/2022 3:34 PM PETROLEUM REFINERY LABORER COVID-19 Rule Out 09/14/2023 09/14/2023 09/14/2023 3:48 PM CDT COVID-19 Rule Out 11/02/2024 11/02/2024 11/02/2024 4:03 PM PETROLEUM REFINERY LABORER Assessment Noted Time PHQ-9 Depression Total Score: 020 1:12 PM CDT documented as of this encounter Care Teams Substation Wireman Relationship Specialty Start Date End Date Dasha Conway FNP- [address] [place] [address] PCP - General 11/02/24 documented as of this encounter
--- OUTSIDE RECORDS SUMMARY | 2025-02-11 16:48 | XMS_ITS | Encounter Summary ---
Author Organization [facility] Address [address] [place] [address] Care Team Providers Care Health Services Administrator Name Role Phone Dasha Conway [facility] Primary Care Provider +1- [phone] Encounter Details Date Type Department Care Team (Latest Contact Info) Description 04/01/2021 [facility] Message Enc [facility] Medical Group Multispecialty Care - [place] [address] [address] [address] [place] [address] [place] [address] [place] [address] [address] [place] [address] RE: Follow Up/Update Social History Tobacco Use [...] Sex Assigned at Female 01/08/2021 9:43 AM CENTER SPECIALISTS Legal Sex Female 5:13 PM CDT Gender Identity Female 01/08/2021 9:43 AM CENTER SPECIALISTS Sexual Orientation Straight 01/08/2021 9: 43 AM CENTER SPECIALISTS COVID-19 Exposure Response Date Recorded In the [...] Rule Out 10/23/2021 10/23/2021 10/23/2021 9:25 AM CENTER SPECIALISTS COVID-19 Rule Out 10/23/2021 10/23/2021 10/24/2021 12:21 AM CENTER SPECIALISTS COVID-19 Rule Out 01/15/2022 01/15/2022 01/20/2022 10:53 AM CENTER SPECIALISTS COVID-19 Rule Out 04/21/2022 04/21/2022 04/21/2022 11:42 AM CDT COVID-19 Rule Out 04/21/2022 04/21/2022 04/26/2022 7:02 AM CDT COVID-19 Rule Out 10/06/2022 10/06/2022 10/06/2022 1:21 PM CENTER SPECIALISTS COVID-19 Rule Out 10/06/2022 10/06/2022 10/07/2022 3:34 PM CENTER SPECIALISTS COVID-19 Rule Out 09/14/2023 09/14/2023 09/14/2023 3:48 PM CDT COVID-19 Rule Out 11/02/2024 11/02/2024 11/02/2024 4:03 PM CENTER SPECIALISTS Assessment Noted Time PHQ-9 Depression Total Score: 22 021 9:18 AM CDT documented as of this encounter Care Teams Health Services Administrator Relationship Specialty Start Date End Date Dasha Conway, SCHO[employer] COOK-STEPH [address] [place] [address] PCP - General 11/02/24 documented as of this encounter
--- OUTSIDE RECORDS SUMMARY | 2025-02-11 16:48 | XMS_ITS | Encounter Summary ---
Author Organization [facility] Address [address] [place] [address] Care Team Providers Care Apparatus Engineering Technologist Name Role Phone Dasha Conway [facility] Primary Care Provider +1- [phone] Encounter Details Date Type Department Care Team (Late st Contact Info) Description 03/03/2021 [employer] Message Enc [facility] Medical Group Multispecialty Care - [address] [place] [address] Mela Elaine, TOOL DESIGNER RE: Question Social History Tobacco Use Types [...] Sex Assigned at Female 01/08/2021 9:43 AM EDITOR MANAGING DIRECTOR Legal Sex Female 5:13 PM CDT Gender Identity Female 01/08/2021 9:43 AM EDITOR MANAGING DIRECTOR Sexual Orientation Straight 01/08/2021 9: 43 AM EDITOR MANAGING DIRECTOR COVID-19 Exposure Response Date Recorded In the last month, have you been in contact with someone who was confirmed or suspected to have Coronavirus / COVID-19? No / Unsure 03/04/2021 2:24 PM CDT documented as of this encounter Plan of Treatment Not on file documented as of this encounter Visit Diagnoses Not on filedocumented in this encounter Additional Health Concerns Infection Onset Date Last Indicated Resolved Time 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 06/30/2017 COVID-19 Rule Out 06/05/2021 06/05/2021 06/05/2021 12:31 PM CDT COVID-19 Rule Out 10/23/2021 10/23/2021 10/23/2021 9:25 AM EDITOR MANAGING DIRECTOR COVID-19 Rule Out 10/23/2021 10/23/2021 10/24/2021 12:21 AM EDITOR MANAGING DIRECTOR COVID-19 Rule Out 01/15/2022 01/15/2022 01/20/2022 10:53 AM EDITOR MANAGING DIRECTOR COVID-19 Rule Out 04/21/2022 04/21/2022 04/21/2022 11:42 AM CDT COVID-19 Rule Out 04/21/2022 04/21/2022 04/26/2022 7:02 AM CDT COVID-19 Rule Out 10/06/2022 10/06/2022 10/06/2022 1:21 PM EDITOR MANAGING DIRECTOR COVID-19 Rule Out 10/06/2022 10/06/2022 10/07/2022 3:34 PM EDITOR MANAGING DIRECTOR COVID-19 Rule Out 09/14/2023 09/14/2023 09/14/2023 3:48 PM CDT COVID-19 Rule Out 11/02/2024 11/02/2024 11/02/2024 4:03 PM EDITOR MANAGING DIRECTOR Assessment Noted Time PHQ-9 Depression Total Score: 020 1:12 PM CDT documented as of this encounter Care Teams Apparatus Engineering Technologist Relationship Specialty Start Date End Date Dasha Conway FNP-BC [address] [place] [address] PCP - General 11/02/24 documented as of this encounter
--- OUTSIDE RECORDS SUMMARY | 2025-02-11 16:48 | XMS_ITS | Encounter Summary ---
Author Organization [facility] System Address [address] [place] [address] Care Team Providers Care School Transportation Director Name Role Phone Dasha Conway [facility] Primary Care Provider +1- [phone] Encounter Details Date Type Department Care Team (Late st Contact Info) Description 05/04/2024 Kwi[employer]t Message Enc [facility] Medical Group Multispecialty Care - [place] [address] [place], [place] [address] Melida Wiley, SALESPERSON NEW CARS [address] [place], [place] [address] Itraconazole Social History Tobacco Use Types Packs/Day Years Used Date Smoking Tobacco: Former Cigarettes 1 30 Q uit: 05/01/2024 Smokeless Tobacco: Former Comments:tried patches, gum, lozenges, nicotrol inhaler, auriculotherapy and chantix to quit without success; counseled by Dr Diaz. Alcohol Use Standard Drinks/Week Comments Not Currently 0 (1 standard drink = 0.6 oz pur e alcohol) PHQ-2 Answer Date Recorded Patient Health Questionnaire-2 Score 0 11/16/2023 Comments No Sex and Gender Information Value Date Recorded Sex Assigned at Female 01/08/2021 9:43 AM COMPUTER ANALYST SUPERVISOR Legal Sex Female 5:13 PM CDT Gender Identity Female 01/08/2021 9:43 AM COMPUTER ANALYST SUPERVISOR Sexual Orientation Straight 01/08/2021 9: 43 AM COMPUTER ANALYST SUPERVISOR documented as of this encounter Functional [...] Rule Out 11/02/2024 11/02/2024 11/02/2024 4:03 PM COMPUTER ANALYST SUPERVISOR Assessment Noted Time PHQ-9 Depression Total Score: 7 11/16/20 23 9:57 AM COMPUTER ANALYST SUPERVISOR documented as of this encounter Care Teams School Transportation Director Relationship Specialty Start Date End Date Dasha Conway, STOGY ROLLER- [address] [place] [address] PCP - General 11/02/24 documented as of this encounter
--- OUTSIDE RECORDS SUMMARY | 2025-02-11 16:48 | XMS_ITS | Encounter Summary ---
Author Organization [facility] Address [address] [place] [address] Care Team Providers Care Formulation Chemist Name Role Phone Dasha Conway [facility] Primary Care Provider +1- [phone] Encounter Details Date Type Department Care Team (Late st Contact Info) Description 02/03/2021 MyChart Message Enc [facility] Medical Group Multispecialty Care - [address] [address] [address] [place] [address] [place] [address] [place] [address] [address] [place] [address] RE: Question Social History Tobacco [...] Sex Assigned at Female 01/08/2021 9:43 AM COLUMNIST Legal Sex Female 5:13 PM CDT Gender Identity Female 01/08/2021 9:43 AM COLUMNIST Sexual Orientation Straight 01/08/2021 9: 43 AM COLUMNIST COVID-19 Exposure Response Date Recorded In the last month, have you been in contact with someone who was confirmed or suspected to have Coronavirus / COVID-19? No / Unsure 02/03/2021 2:14 PM CDT documented as of this encounter Plan of Treatment Not on file documented as of this encounter Visit Diagnoses Not on filedocumented in this encounter Additional Health Concerns Infection Onset Date Last Indicated Resolved Time 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 06/30/2017 COVID-19 Rule Out 06/05/2021 06/05/2021 06/05/2021 12:31 PM CDT COVID-19 Rule Out 10/23/2021 10/23/2021 10/23/2021 9:25 AM COLUMNIST COVID-19 Rule Out 10/23/2021 10/23/2021 10/24/2021 12:21 AM COLUMNIST COVID-19 Rule Out 01/15/2022 01/15/2022 01/20/2022 10:53 AM COLUMNIST COVID-19 Rule Out 04/21/2022 04/21/2022 04/21/2022 11:42 AM CDT COVID-19 Rule Out 04/21/2022 04/21/2022 04/26/2022 7:02 AM CDT COVID-19 Rule Out 10/06/2022 10/06/2022 10/06/2022 1:21 PM COLUMNIST COVID-19 Rule Out 10/06/2022 10/06/2022 10/07/2022 3:34 PM COLUMNIST COVID-19 Rule Out 09/14/2023 09/14/2023 09/14/2023 3:48 PM CDT COVID-19 Rule Out 11/02/2024 11/02/2024 11/02/2024 4:03 PM COLUMNIST Assessment Noted Time PHQ-9 Depression Total Score: 020 1:12 PM CDT documented as of this encounter Care Teams Formulation Chemist Relationship Specialty Start Date End Date Dasha Conway, PLANER CHAIN OFFBEARER- [address] [place] [address] PCP - General 11/02/24 documented as of this encounter
--- OUTSIDE RECORDS SUMMARY | 2025-02-11 16:48 | XMS_ITS | Encounter Summary ---
Author Organization [facility] Address [facility] [place] [address] Care Team Providers Care Inner Tube Inserter Name Role Phone Dasha Conway [facility]lin [facility] Primary Care Provider +1- [phone] Encounter Details Date Type Department Care Team (Late st Contact Info) Description 10/23/2020 [employer] Message Enc [facility] Multispecialty Care - [place] [address] [address] [address] [place] [address] [place] [address] [place] [address] [address] [place] [address] omeprazole Social History Tobacco Use Types Packs/Day Years [...] Sex Assigned at Female 01/08/2021 9:43 AM AMBULANCE PARAMEDIC Legal Sex Female 5:13 PM CDT Gender Identity Female 01/08/2021 9:43 AM AMBULANCE PARAMEDIC Sexual Orientation Straight 01/08/2021 9: 43 AM AMBULANCE PARAMEDIC COVID-19 Exposure Response Date Recorded In the last month, have you been in contact with someone who was confirmed or suspected to have Coronavirus / COVID-19? No / Unsure 10/24/2020 10:40 AM AMBULANCE PARAMEDIC documented as of this encounter Plan of Treatment Not on file documented as of this encounter Visit Diagnoses Not on filedocumented in this encounter Additional Health Concerns Infection Onset Date Last Indicated Resolved Time 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 06/30/2017 COVID-19 Rule Out 12/16/2020 12/16/2020 12/17/2020 4:31 PM AMBULANCE PARAMEDIC COVID-19 Rule Out 06/05/2021 06/05/2021 06/05/2021 12:31 PM CDT COVID-19 Rule Out 10/23/2021 10/23/2021 10/23/2021 9:25 AM AMBULANCE PARAMEDIC COVID-19 Rule Out 10/23/2021 10/23/2021 10/24/2021 12:21 AM AMBULANCE PARAMEDIC COVID-19 Rule Out 01/15/2022 01/15/2022 01/20/2022 10:53 AM AMBULANCE PARAMEDIC COVID-19 Rule Out 04/21/2022 04/21/2022 04/21/2022 11:42 AM CDT COVID-19 Rule Out 04/21/2022 04/21/2022 04/26/2022 7:02 AM CDT COVID-19 Rule Out 10/06/2022 10/06/2022 10/06/2022 1:21 PM AMBULANCE PARAMEDIC COVID-19 Rule Out 10/06/2022 10/06/2022 10/07/2022 3:34 PM AMBULANCE PARAMEDIC COVID-19 Rule Out 09/14/2023 09/14/2023 09/14/2023 3:48 PM CDT COVID-19 Rule Out 11/02/2024 11/02/2024 11/02/2024 4:03 PM AMBULANCE PARAMEDIC Assessment Noted Time PHQ-9 Depression Total Score: 13 020 1:12 PM CDT documented as of this encounter Care Teams Inner Tube Inserter Relationship Specialty Start Date End Date Dasha Conway FNP- [address] [place] [address] PCP - General 11/02/24 documented as of this encounter
--- OUTSIDE RECORDS SUMMARY | 2025-02-11 16:48 | XMS_ITS | Encounter Summary ---
Author Organization [facility] Address [facility] [place] [address] Care Team Providers Care Parts Back Counter Man Name Role Phone Dasha Conway [facility] Primary Care Provider [phone]- [phone] Encounter Details Date Type Department Care Team (Late st Contact Info) Description 02/17/2024 Zyncdt Message Enc [facility] Medical Group Multispecialty Care - [address] [address] [address] [place] [address] [place] [address] [place] [address] [address] [place] [address] Lumps on arm Social History Tobacco Use Types Packs/Day Years [...] Assigned at Female 01/08/2021 9:43 AM IRON WORKER FOREMAN Legal Sex Female 5:13 PM CDT Gender Identity Female 01/08/2021 9:43 AM IRON WORKER FOREMAN Sexual Orientation Straight 01/08/2021 9: 43 AM IRON WORKER FOREMAN documented as of this encounter Functional Status [...] Out 11/02/2024 11/02/2024 11/02/2024 4:03 PM IRON WORKER FOREMAN Assessment Noted Time PHQ-9 Depression Total Score: 7 11/16/20 23 9:57 AM IRON WORKER FOREMAN documented as of this encounter Care Teams Parts Back Counter Man Relationship Specialty Start Date End Date Dasha Conway FNP-STEPH [address] [place] [address] PCP - General 11/02/24 documented as of this encounter
--- OUTSIDE RECORDS SUMMARY | 2025-02-11 16:48 | XMS_ITS | Continuity of Care Document ---
Author Organization [facility] Address [address] [place] [address] Insurance Providers Payer Plan Claims Address Claims Phone Policy Number Group Number Relation Employer Guarantor Name Guarantor Guarantor Address Guarantor Phone [facility] [address] [address], [place] [address] tel:[phone] [place] 1980 [id number] [place] [address] [facility] MANAGE D MEDICA RE ADV [facility] MANAG ED MEDIC ARE ADV [address] [address], [place] [address] tel:[phone] Self Mirian [address] [place] 1980 [address] [place] [address] MEDICA ID - OUT OF STATE MEDIC AID - OUT OF STATE [address] [address], [place] [address] tel:[phone] Self Mirian B [place] 1980 [address] [place] [address] Problems Unknown Problems Results No Results Allergies, adverse reactions, alerts No known allergies and adverse reactions Medications No administered medications reported Vital Signs No vital signs reported Social History No smoking Hx information available
--- OUTSIDE RECORDS SUMMARY | 2025-02-11 16:48 | XMS_ITS | Encounter Summary ---
Author Organization [facility] Address [address] [place] [address] Care Team Providers Care Coating Machine Feeder Name Role Phone Dasha Conway [facility] Primary Care Provider +1- [phone] Encounter Details Date Type Department Care Team (Late st Contact Info) Description 03/25/2021 Push E[employer] Message Enc [facility] Medical Group Multispecialty Care - [address] [place] [address] Mela Elaine, PARENT PARTNER RE: Appointment Social History Tobacco Use Types Packs/Day Years [...] Sex Assigned at Female 01/08/2021 9:43 AM AUTOMOTIVE COLLISION REPAIR INSTRUCTOR Legal Sex Female 5:13 PM CDT Gender Identity Female 01/08/2021 9:43 AM AUTOMOTIVE COLLISION REPAIR INSTRUCTOR Sexual Orientation Straight 01/08/2021 9: 43 AM AUTOMOTIVE COLLISION REPAIR INSTRUCTOR COVID-19 Exposure Response Date Recorded In the [...] Rule Out 10/23/2021 10/23/2021 10/23/2021 9:25 AM AUTOMOTIVE COLLISION REPAIR INSTRUCTOR COVID-19 Rule Out 10/23/2021 10/23/2021 10/24/2021 12:21 AM AUTOMOTIVE COLLISION REPAIR INSTRUCTOR COVID-19 Rule Out 01/15/2022 01/15/2022 01/20/2022 10:53 AM AUTOMOTIVE COLLISION REPAIR INSTRUCTOR COVID-19 Rule Out 04/21/2022 04/21/2022 04/21/2022 11:42 AM CDT COVID-19 Rule Out 04/21/2022 04/21/2022 04/26/2022 7:02 AM CDT COVID-19 Rule Out 10/06/2022 10/06/2022 10/06/2022 1:21 PM AUTOMOTIVE COLLISION REPAIR INSTRUCTOR COVID-19 Rule Out 10/06/2022 10/06/2022 10/07/2022 3:34 PM AUTOMOTIVE COLLISION REPAIR INSTRUCTOR COVID-19 Rule Out 09/14/2023 09/14/2023 09/14/2023 3:48 PM CDT COVID-19 Rule Out 11/02/2024 11/02/2024 11/02/2024 4:03 PM AUTOMOTIVE COLLISION REPAIR INSTRUCTOR Assessment Noted Time PHQ-9 Depression Total Score: 13 020 1:12 PM CDT documented as of this encounter Care Teams Coating Machine Feeder Relationship Specialty Start Date End Date Dasha Conway FNP- [address] [place] [address] PCP - General 11/02/24 documented as of this encounter
--- OUTSIDE RECORDS SUMMARY | 2025-02-11 16:48 | XMS_ITS | Encounter Summary ---
Author Organization [facility] Address [facility] [place] [address] Care Team Providers Care Chipper Name Role Phone Dasha Conway Erlin [facility] Primary Care Provider [phone]- [phone] Encounter Details Date Type Department Care Team (Latest Contact Info) Description 12/03/2020 [employer] Message Enc [facility] Medical Group Multispecialty Care - [place] [address] [address] [address] [place] [address] [place] [address] [place] [address] [address] [place] [address] Medication Questions Social History Tobacco Use Types [...] Sex Assigned at Female 01/08/2021 9:43 AM METAL FURNITURE ASSEMBLER Legal Sex Female 5:13 PM CDT Gender Identity Female 01/08/2021 9:43 AM METAL FURNITURE ASSEMBLER Sexual Orientation Straight 01/08/2021 9: 43 AM METAL FURNITURE ASSEMBLER COVID-19 Exposure Response Date Recorded In the last month, have you been in contact with someone who was confirmed or suspected to have Coronavirus / COVID-19? No / Unsure 11/28/2020 3:29 PM METAL FURNITURE ASSEMBLER documented as of this encounter Plan of Treatment Not on file documented as of this encounter Visit Diagnoses Not on filedocumented in this encounter Additional Health Concerns Infection Onset Date Last Indicated Resolved Time 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 06/30/2017 COVID-19 Rule Out 12/16/2020 12/16/2020 12/17/2020 4:31 PM METAL FURNITURE ASSEMBLER COVID-19 Rule Out 06/05/2021 06/05/2021 06/05/2021 12:31 PM CDT COVID-19 Rule Out 10/23/2021 10/23/2021 10/23/2021 9:25 AM METAL FURNITURE ASSEMBLER COVID-19 Rule Out 10/23/2021 10/23/2021 10/24/2021 12:21 AM METAL FURNITURE ASSEMBLER COVID-19 Rule Out 01/15/2022 01/15/2022 01/20/2022 10:53 AM METAL FURNITURE ASSEMBLER COVID-19 Rule Out 04/21/2022 04/21/2022 04/21/2022 11:42 AM CDT COVID-19 Rule Out 04/21/2022 04/21/2022 04/26/2022 7:02 AM CDT COVID-19 Rule Out 10/06/2022 10/06/2022 10/06/2022 1:21 PM METAL FURNITURE ASSEMBLER COVID-19 Rule Out 10/06/2022 10/06/2022 10/07/2022 3:34 PM METAL FURNITURE ASSEMBLER COVID-19 Rule Out 09/14/2023 09/14/2023 09/14/2023 3:48 PM CDT COVID-19 Rule Out 11/02/2024 11/02/2024 11/02/2024 4:03 PM METAL FURNITURE ASSEMBLER Assessment Noted Time PHQ-9 Depression Total Score: 13 020 1:12 PM CDT documented as of this encounter Care Teams Chipper Relationship Specialty Start Date End Date Dasha Conway, FARM MANAGEMENT TEACHER- [address] [place] [address] PCP - General 11/02/24 documented as of this encounter
--- OUTSIDE RECORDS SUMMARY | 2025-02-11 16:48 | XMS_ITS | Encounter Summary ---
Author Organization [facility] Address [address] [place] [address] Phone Care Team Providers Care Loft Worker Head Name Role Phone Curtis Diaz MD Primary Care Provider [phone] Donovan Parks MD Unavailable Dasha Conway NP Primary Care Provider [phone] Encounter Details Date Type Department Care Team (Late st Contact Info) Description 08/09/2023 Orders Only [facility] Scanning, Provider [...] on file Legal Sex Female 3:37 AM GREEN BUILDING ENERGY ENGINEER Gender Identity Female 10/02/2019 1:12 AM GREEN BUILDING ENERGY ENGINEER Sexual Orientation Straight 10/02/2019 1: 12 AM GREEN BUILDING ENERGY ENGINEER 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 Not on file Not on file documented as of this encounter Plan of Treatment Not on file documented as of this encounter Procedures Procedure Name Priority Date/Time Associated Diagnosis Comments SCAN - RADIOLOGY/IMAGING 08/09/2023 documented in this encounter Results * SCAN - RADIOLOGY/IMAGING (08/09/2023) Anatomical Region Laterality Modality Other us Provider Scanning Final Result documented in this encounter Visit Diagnoses Not on filedocumented in this encounter Care Teams Loft Worker Head Relationship Specialty Start Date End Date Curtis Diaz MD [address] [place] [address] PCP - General Internal Medicine 06/12/21 08/22/24 Dasha Conway NP [address] [place] [address] PCP - General Family Medicine 08/23/24 Donovan Parks MD [address] [place] [address] Referring Physician Gastroenterology 06/12/21 documented as of this encounter
--- OUTSIDE RECORDS SUMMARY | 2025-02-11 16:48 | XMS_ITS | Encounter Summary ---
Author Organization [facility] Address [facility] [place] [address] Care Team Providers Care Program Director Group Work Name Role Phone Dasha Conway [facility] Primary Care Provider [phone] Encounter Details Date Type Department Care Team (Late st Contact Info) Description 09/14/2023 EachNett Message Enc [facility] - [address] [place] [address] [place] [address] [place] [address] [address] [place] [address] Chest xray Social History Tobacco Use Types Packs/Day Years [...] Date Recorded Patient Health Questionnaire-2 Score 0 08/31/2023 Comments No Sex and Gender Information Value Date Recorded Sex Assigned at Female 01/08/2021 9:43 AM BUCKLE ATTACHING MACHINE OPERATOR Legal Sex Female 5:13 PM CDT Gender Identity Female 01/08/2021 9:43 AM BUCKLE ATTACHING MACHINE OPERATOR Sexual Orientation Straight 01/08/2021 9: 43 AM BUCKLE ATTACHING MACHINE OPERATOR documented as of this encounter Functional Status [...] 10:59 PM CDT Denis Nma RN Active * Because of a physical, [...] Rule Out 11/02/2024 11/02/2024 11/02/2024 4:03 PM BUCKLE ATTACHING MACHINE OPERATOR Assessment Noted Time PHQ-9 Depression Total Score: 11 11/05/2 022 12:00 PM BUCKLE ATTACHING MACHINE OPERATOR documented as of this encounter Care Teams Program Director Group Work Relationship Specialty Start Date End Date Dasha Conway FNP- [address] [place] [id number] PCP - General 11/02/24 documented as of this encounter
--- OUTSIDE RECORDS SUMMARY | 2025-02-11 16:48 | XMS_ITS | Clinical Summary ---
Author Organization [facility] Address [facility] [place] [address] Care Team Providers Care Wellhead Pumper Name Role Phone Dasha Conway Erlin [facility] Primary Care Provider [phone] Allergies Active Allergy Reactions Criticality Noted Date Comments Amoxicillin Hives,Rash Medium 12/15/2019 Amoxicillin-Pot Clavulanate Hives,Rash Medium 01/11/2015 Fluticasone Furoate Shortness of Breath High 06/23/2020 Worsening asthma symptoms Azithromycin Hives,Rash Medium 10/30/2019 Cefuroxime Itching 01/28/2022 Cephalexin Hives,Rash Medium 12/15/2019 Ciprofloxacin Other (see comment) 06/26/2022 Patient cannot recall but pharmacy notified me she has reacted to fluoroquinolones. Will avoid medication at this time; patient cannot recall exactly what happened. Clavulanic Acid Hives,Rash Medium 12/15/2019 Diclofenac Rash Low 03/19/2022 Doxycycline Other (see comment) High 06/23/2020 Depression, Suicidal thoughts Eluxadoline Hives,Rash Medium 12/15/2019 Erythromycin Hives Medium 05/07/2019 Sitagliptin Other (see comment) 06/18/2022 Pancreatitis Latex Rash Medium 12/15/2019 Pregabalin Shortness of Breath High 12/15/2019 Penicillins Hives,Rash High 09/21/2016 Phenothiazines Anxiety Medium 11/21/2007 Prednisone Rash Medium 10/16/2019 Oral. No problem with injected steroids Ropinirole Nausea and Vomiting,Shakiness Medium 12/27/2014 Causes aims or restless movement throughout body Sulfamethoxazole-Trimetho prim Itching,Redness,Ra sh Medium 11/27/2020 Feels very hot all over Tramadol Vomiting Medium 10/30/2019 Trifluoperazine Hives,Rash Medium 12/15/2019 Venlafaxine Other (see comment) Medium 05/05/2020 Serotonin syndrome Medications * This document contains information received from the source organization and may not represent a complete record from that organization. folic acid 1 MG tablet Take 1 tablet (1 mg total) by mouth daily. Active aspirin 325 MG tablet Take 1 tablet (325 mg total) by mouth daily. Active Lactobacillus Acid-Pectin (ACIDOPHILUS/CIT EDVIN PECTIN) Tab Take 1 tablet by mouth daily. Active albuterol sulfate HFA (VENTOLIN HFA) 108 (90 Base) MCG/ACT inhalerIndicatio ns:Tobacco use Inhale 2 puffs into the lungs every 6 (six) hours as needed for Wheezing. 18 g 1 3 Active itraconazole (SPORANOX) 100 MG capsuleIndicatio ns:Thrush Take 2 capsules by mouth once daily x 14 days. Take with food. 28 capsule 4 Active XARELTO 20 MG Tab tabletIndication s:Antiphospholip id syndrome (HHS/HCC) Take 1 tablet (20 mg total) by mouth daily with supper. 90 tablet 4 Active omeprazole (PRILOSEC) 40 MG capsuleIndicatio ns:Gastroesophag eal reflux disease without esophagitis Take 1 capsule (40 mg total) by mouth 2 (two) times a day. 180 capsule 4 Active LORazepam (ATIVAN) 1 MG tabletIndication s:Anxiety Take 1 tablet (1 mg total) by mouth every 6 (six) hours as needed for Anxiety. 12 tablet 4 Active magnesium oxide (MAG-OX) 400 MG tablet Take 1 tablet (400 mg total) by mouth daily. 30 tablet 4 Active Hospital, Clinic, or Other Facility Administered Medication Ordered Dose Route Frequency Start Date End Date Status lidocaine (XYLOCAINE) 1 % injection SOLN 0.1 mLIndications:Carpal tunnel syndrome of right wrist 0.1 mL Other Once 02/10/2021 A ctive Active Problems Problem Noted Date Diagnosed Date Carpal tunnel syndrome on left 12/21/2023 Hyperimmunoglobulin e (ige) syndrome (HHS/HCC) 1 01/17/2023 Other chronic pancreatitis (CMS/HCC HHS/HCC) Methylenetetrahydrofolate reductase deficiency ( HHS/HCC) 11/16/2023 Angina pectoris, unspecified 11/16/2023 Pulmonary emphysema, unspeci fied emphysema type ([facility]) 09/14/2022 Abdominal pain 06/13/2022 Peripheral vascular disease, unspecified 022 Vertigo 01/29/2022 Type 2 diabetes mellitus wit h hyperglycemia, without long-term current use of insulin ([facility]) 11/03/2021 Overview (11/03/2021): On glipizide Assessment & Plan (02/02/2022 12:08 PM CDT): On Glipizide and controlled. Colitis 05/20/2021 Carpal tunnel syndrome of right wrist 01/27/2021 Shoulder pain, left 01/13/[address] 12/11/2020 History of esophageal stricture 12/01/2020 Overview (12/01/2020): Added automatically from request for surgery [id number] Regurgitation of food 12/01/2020 Overview (12/01/2020): Added automatically from request for surgery [id number] GERD (gastroesophageal reflux disease) Overview (12/01/2020): Added automatically from request for surgery [id number] Precordial pain 09/26/2020 H/O food allergy 09/09/2020 BMI 31.0-31.9,adult 09/09/2020 Dysphagia 08/06/2020 Overview (08/06/2020): Added automatically from request for surgery [id number] PTSD (post-traumatic stress disorder) 07/31/2020 Pes anserine bursitis 07/17/2020 Impaired glucose tolerance 03/13/2020 Iron deficiency 03/13/2020 Vitamin D deficiency 03/13/2020 Overview (10/06/2020): nml folate Hyperlipidemia associated wi th type 2 diabetes mellitus ([facility]) 03/12/2020 Other ill-defined heart diseases 03/12/2020 Overweight 03/12/2020 Palpitations 03/12/2020 Antiphospholipid syndrome (HHS/HCC) 02/20/2020 Overview (02/02/2022): Controlled. On Xarelto 20 mg daily. Patient will follow with her medical detailist as planned. Assessment & Plan (02/02/2022 12:09 PM CDT): Controlled. On Xarelto 20 mg daily. Patient will follow with her medical detailist as planned. MTHFR mutation 01/28/2020 Overview (11/24/2020): Controlled. On Xarelto 20 mg daily. On Asprin. Patient will follow with her medical detailist as planned. Alopecia 01/17/2020 Overview (08/31/2023): Alopecia;Recorded Elsewhere: No Location: [facility] Source: EHR Chronic: N Practice ID: [id number] Billable Time: 02:45:00 PM Polyarthralgia 12/26/2019 Overview (06/23/2020): Last Assessment & Plan: Reports photosensitivity, pleuritic pains, cough however is a smoker, dry eyes and mouth, and oral ulcers. Repeat AVISE revealed a low positive RF, however no obvious synovitis noted on exam today and previous US was unremarkable. Symptoms do not respond to steroids. Unlikely symptoms are related to any underlying rheumatological etiology at this time. Fibromyalgia 10/02/2019 Overview (09/09/2020): Labs (10/02/19): WBC (15.1), myositis neg. AVISE (10/02/19): RF equivocal (4.6), anti-cardiolipin (32) AVISE (12/26/2019): +RF (6.6), anti-cardiolipin (33) Hepatitis negative: 09/2019 US right hand/wrist (10/09/19):Mild effusions and power [...] median nerve is identified at 0.19 cm2. Effexor - serotonin syndrome Antidepressants - suicidal ideation Gabapentin - failed in the past Lyrica - insomnia, blurry vision, anxiety Flexeril - no benefit; interacts with Dulera per pulm Last Assessment & Plan: Stopped flexeril due to no benefit and potential interaction with Dulera per casino attendant. Started LDN 4.5mg daily on 04/12/2020. Denies side effects but also denies any benefit at this time. Still complaining of severe generalized pain, fatigue, and insomnia. States dilaudid BID helps her hand pain. Recommend she follow up with pcp as they were originally prescribing this. [facility] Continue LDN 4.5mg daily and give this more time tot take effect. Avoid Cymbalta and amitriptyline as patient reports suicidal ideation with antidepressants in the past. Failed gabapentin and had side effects to Lyrica. Follow up in 4-6 weeks. Sooner if needed. Discussed with Dr. Soler. Pelvic and perineal pain 08/09/2019 Overview (08/31/2023): Pelvic and perineal pain;Recorded Elsewhere: No Location: [facility] Source: EHR Chronic: N Practice ID: [id number] Billable Time: 09:45:00 AM IBS (irritable bowel syndrome) 06/15/2019 Syncope 06/10/2019 Chronic pain 05/21/2019 Nicotine dependence 09/21/2016 Factor V Leiden (HHS/HCC) 08/26/2015 Overview (02/02/2022): No acute concerns. Continue with Asprin and Xarelto 20 mg daily. Patient will follow up with medical detailist for future appointments Assessment & Plan (02/02/2022 12:10 PM CDT): No acute concerns. Continue with Asprin and Xarelto 20 mg daily. Patient will follow up with medical detailist for future appointments Hematologic disorder 08/23/2015 Schizoaffective disorder ([facility]) 04/12 Overview (11/24/2020): -Patient currently stable with no SI or IH -Continue with quetiapine 20 mg at bedtime -Continue with Vraylar 4.5 mg at bedtime - future appointments with her psychiatrist Assessment & Plan (02/02/2022 12:10 PM CDT): -Patient currently stable with no SI or IH -Continue with quetiapine 20 mg at bedtime -Continue with Vraylar 4.5 mg at bedtime - future appointments with her psychiatrist Tobacco use 01/17/2015 Endometriosis 08/14/2012 Overview (08/31/2023): Endometriosis, unspecified;Recorded Elsewhere: No Location: [facility] Source: EHR Chronic: N Practice ID: [id number] Billable Time: 09:45:00 AM Arthritis 09/21/2010 Atypical bipolar affective disorder (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 05/21/1998 Overview (11/24/2020): -Patient currently stable with no SI or IH -Continue with quetiapine 20 mg at bedtime -Continue with Vraylar 4.5 mg at bedtime - future appointments with her psychiatrist Assessment & Plan (02/02/2022 12:09 PM CDT): -Patient currently stable with no SI or IH -Continue with quetiapine 20 mg at bedtime -Continue with Vraylar 4.5 mg at bedtime - future appointments with her psychiatrist Asthma ([facility]) 1980 Resolved Problems Problem Noted Date Diagnosed Date Resolved Date Acute pancreatitis ([facility]) 03/04/2021 04/03/2021 IGTN (ingrowing toe nail) 12/11/2020 Blurry vision, bilateral 08/07/2020 Acute nonintractable headach e, unspecified headache type 08/07/2020 08/20/2020 Weakness 08/07/2020 08/20/2020 Facial numbness 08/07/2020 09/09/2020 Hyperglycemia 08/06/2020 09/09/2020 Difficult or painful urination 06/23/2020 08/06/2020 Encounter for health-related screening 03/12/2020 10/13/2020 Pericardial effusion ([facility]) 10/04/2019 08/06/2020 Overview (06/23/2020): Overview: Echo (08/12/18): moderate pericardial effusion with no evidence of tamponade. EF 60-70% Echo (08/22/18) trivial (barely visible) pericardial effusion, EF 50-55% Anemia 06/15/2019 09/09/2020 COPD (chronic obstructive pu lmonary disease) ([facility]) 06/15/2019 09/09/2020 Tobacco abuse 06/15/2019 08/20/2020 Vaginal yeast infection 06/15/2019 0801/2020 Hypomagnesemia 06/10/2019 09/09/2020 Injury of left knee 04/10/2019 08/06/20 20 Abnormal thyroid function test 01/03/2018 08/06/2020 Overview (06/23/2020): Last Assessment & Plan: Differential would include euthroid sick syndrome, Subclinical hyperthyroidism Ultrasound Performed normal thyroid ultrasound Will request complete thyroid function tests, including TPO antibodies. It TSH is normal or very mildly low, would indicate subclinical hyperthyroidism, so there would be no indication for treatment Will monitor , follow up in 6 m Leukocytosis 08/23/2015 08/20/2020 Endometritis 04/04/2015 04/03/2021 Oligohydramnios antepartum ([facility]) 03/12/2015 06/23/2020 , normal, incidental ([facility]) 03/07/2015 06/23/2020 Lower abdominal pain 01/17/2015 020 , incidental ([facility]) 01/11/2015 06/23/2020 Post-op pain 08/24/2012 06/23/2020 Dysmenorrhea 08/14/2012 03/12/2022 Swallowing difficulty 06/20/20102019 Immunizations Name Administration Dates Next Due Fluzone 6 Months+ Quad (0.5 mL Prefilled Syringe ) 08/06/2022,10/09/2020 Hepatitis A (Generic) 11/23/1999 Influenza (Generic) 08/26/2015,07/22/2015 Influenza Adult (Generic) 10/30/2019 Pneumococcal (Pneumovax 23) 10/09/2020 Pneumococcal (Prevnar 13) 09/14/2022 Tdap (Generic) 03/13/2015 Family History Medical History Relation Comments Depression Father Diabetes Father Early Hearing Loss Father Prostate Cancer Father Cancer Maternal Aunt 1 Cancer Maternal Aunt 2 Early Maternal Grandfather Heart attac k at 47 Heart Attack Maternal Grandfather Cancer Maternal Grandmother Arthritis Mother Cancer Paternal Grandfather Asthma Paternal Grandmother Deafness Paternal Grandmother Cancer Paternal Uncle Arthritis Sister 1 Fibromyalgia Sister 1 Lung Disease Sister 1 Fibromyalgia Sister 2 Lung Disease Sister 2 Breast Cancer Neg Hx Relation Status Comments Father Alive Maternal Aunt 1 Maternal Aunt 2 Maternal Grandfather Maternal Grandmother Mother Alive Paternal Grandfather Paternal Grandmother Alive Paternal Uncle Sister 1 Alive Sister 2 Alive Social History Tobacco Use Types Packs/Day Years [...] Sex Assigned at Female 01/08/2021 9:43 AM WRONG ADDRESS CLERK Legal Sex Female 5:13 PM CDT Gender Identity Female 01/08/2021 9:43 AM WRONG ADDRESS CLERK Sexual Orientation Straight 01/08/2021 9: 43 AM WRONG ADDRESS CLERK Last Filed Vital Signs Vital Sign Reading Time Taken Comments Blood Pressure 142/88 11/02/2024 6:07 PM WRONG ADDRESS CLERK Pulse 74 11/02/2024 6:07 PM WRONG ADDRESS CLERK Temperature 36.6 C (97.9 F) 11/02/2024 6:07 PM WRONG ADDRESS CLERK Respiratory Rate 18 11/02/2024 6:07 PM WRONG ADDRESS CLERK Oxygen Saturation 97% 11/02/2024 6:07 PM WRONG ADDRESS CLERK Inhaled Oxygen Concentration - - Weight 61.2 kg (134 lb 14.7 oz) 11/02/2024 2:41 PM WRONG ADDRESS CLERK Height 160 cm (5' 3 ) 11/02/2024 2:41 PM WRONG ADDRESS CLERK Body Mass Index 23.9 11/02/2024 2:41 PM WRONG ADDRESS CLERK Plan of Treatment Health Maintenance Due Date Last Done Comments ASCVD Statin 1980 Kidney Health Evaluation 1980 COVID-19 Vaccine (#1) 1985 Hepatitis B Vaccines (1 of 3 - 19+ 3-dose series) 1999 Diabetes: Retinopathy Eye Exam 02/11/2024 02/10/2022, 09/02/2021, 10/15/2020 Influenza Adult (#1) 2024 08/06/2022, 10/09/2020, 10/30/2019, Additional history exists ASCVD LDL 11/16/2024 11/16/2023, 10/21, 01/30/2022, Additional history exists Annual Physical 11/16/2024 11/16/2023, 10/21, 11/03/2021, Additional history exists Lipid Panel 11/16/2024 11/16/2023, 10/21, 01/30/2022, Additional history exists PHQ-2 (Physician [place]) 11/21/2024 11/16/2023 Mammogram Screening 02/16/2025 02/16/2023, 07/29/2021, 06/16/2021 DTaP, Tdap and Td Vaccines (2 - Td or Tdap) 03/13/2025 03/13/2015 Hemoglobin A1C 04/11/2025 10/12/2024, 12/05/2023, 08/31/2023, Additional history exists Pneumococcal Vaccine: Pediatrics (0 to 5 Years) and At-Risk Patients (6 to 64 Years) (3 of 3 - PPSV23 or PCV20) 10/09/2025 09/14/2022, 10/09/2020 Hepatitis C Completed 06/09/2022, 10/21/2020 HPV Vaccines Aged Out No longer eligi ble based on patient's age to complete this topic Meningococcal B Vaccine Aged Out No l onger eligible based on patient's age to complete this topic Meningococcal Vaccine Aged Out No nguyen cookie eligible based on patient's age to complete this topic RSV Immunizations Under 20 Months Aged Out No longer eligible based on patient's age to complete this topic Goals Goal Patient Goal Type Associated Problems Recent Progress Patient-Stated? Author Health - patient able to perform ADLs independently General No Cary rdz, Joselito Saez lay out worker Procedure Name Priority Date/Time Associated Diagnosis Comments LIPID PANEL Routine 11/16/2023 10:34 AM WRONG ADDRESS CLERK Annual physical exam HEMOGLOBIN, GLYCOSYLATED Routine 11/16/2023 10:34 AM WRONG ADDRESS CLERK Annual physical exam MG DIAG IMPLANT W DEBRA MAGGIE DIGI Routine 02/16/2023 10:36 AM CDT Abnormal mammogram of both breasts HEPATITIS PANEL,ACUTE Routine 06/09/2022 11:03 AM CDT Chronic fatigue Elevated liver enzymes DIABETIC RETINOPATHY EXAM (NEGATIVE)(SCAN ORDER) Routine 02/10/2022 from Last 3 Months or Most Recently Relevant to Health Maintenance Results * (ABNORMAL) HEMOGLOBIN, GLYCOSYLATED (11/16/2023 10:34 AM WRONG ADDRESS CLERK) HGB A1C 6.3(H) <5.7 % of total Hgb EO2 [employer] Comment: For someone without known diabetes, a hemoglobin A1c value between 5.7% and 6.4% is consistent with prediabetes and should be confirmed with a follow-up test. For someone with known diabetes, a value <7% indicates that their diabetes is well controlled. A1c targets should be individualized based on duration of diabetes, age, comorbid conditions, and other considerations. This assay result is consistent with an increased risk of diabetes. Currently, no consensus exists regarding use of hemoglobin A1c for diagnosis of diabetes for children. 11/16/2023 10:3 4 AM WRONG ADDRESS CLERK 11/17/2023 3:17 AM WRONG ADDRESS CLERK Narrative Resulting Agency Comment Performing Organization Information: Site ID: [facility] Name: Norbert Castellanos Address: [address] [address] Director: Trinity Perez MD Curtis Diaz MD LABORATORY Final Result [facility] [address] [address] [address], [place] * (ABNORMAL) LIPID PANEL (11/16/2023 10:34 AM WRONG ADDRESS CLERK) CHOLESTEROL 165 <200 mg/dL [facility] HDL 29(L) > OR = 50 mg/dL [facility] TRIGLYCERIDES 163(H) <150 mg/dL [facility] LDL (CALCULATED) 108(H) mg/dL (calc) [facility] Comment: Reference range: <100 Desirable range <100 mg/dL for primary prevention; <70 mg/dL for patients with CHD or diabetic patients with > or = 2 CHD risk factors. LDL-C is now calculated using the Chinedu-Nica calculation, which is a validated novel method providing better accuracy than the Friedewald equation in the estimation of LDL-C. Chinedu TATE et al. LINN. 2013;310(19): 0620-0280 (http://education.Workbooks.Supramed/faq/QEC459) CHOL/HDL RATIO 5.7(H) <5.0 (calc) [facility] NON HDL CHOLESTEROL 136(H) <130 mg/dL (calc) [facility] Comment: For patients with diabetes plus 1 major ASCVD risk factor, treating to a non-HDL-C goal of <100 mg/dL (LDL-C of <70 mg/dL) is considered a therapeutic option. 11/16/2023 10:3 4 AM WRONG ADDRESS CLERK 11/17/2023 3:17 AM WRONG ADDRESS CLERK Narrative Resulting Agency Comment Performing Organization Information: Site ID: [facility] Name: [facility] Castellanos Address: [address] [address] Director: Trinity Perez MD Curtis Diaz MD LABORATORY Final Result [facility] [id number] [address], [place] * MG DIAG IMPLANT W DEBRA MAGGIE DIGI (02/16/2023 10:36 AM CDT) Anatomical Region Laterality Modality Breast Bilateral Mammography 02/16/2023 11:2 5 AM CDT Narrative 02/16/2023 11:29 AM CDT EXAMINATION: Digital bilateral diagnostic mammogram with 3-D tomography and right breast ultrasound [id number] EXAM DATE/TIME: 02/16/2023 10:26 AM REASON FOR EXAM: lump/leaking implants COMPARISON: 05/06/2020, 06/04/2020, 06/16/2021, TECHNIQUE: Digital diagnostic mammography of both breasts was performed in addition to 3-D Tomosynthesis technique. This study was read with the assistance of a computer-aided detection system. And right breast ultrasound TISSUE DENSITY: The breast tissue is heterogeneously dense, which may obscure small masses. FINDINGS: Bilateral breast implants are partially visualized. The breast implant in the left breast shows a fold which were not present on prior studies. No definite implant leak is seen. No suspicious masses, malignant appearing calcifications, skin thickening or other abnormalities are present. No significant change from the prior exam. =====IMPRESSION:===== New folds in the left breast implant without definite leak seen. No definite correlate for history of bilateral breast pain. Lack of correlate should not delay biopsy or further evaluation if clinically indicated. ASSESSMENT: ACR BI-RADS 2 - BENIGN FINDING(S) Recommendation: 1: Per clinical decision Bilateral COMMENTS: Breast MRI could be considered for further evaluation of implant leak or other abnormality. Ordered By: CURTIS DIAZ Interpreted By: Elliot West MD, 02/16/2023 11:25 AM Curtis Diaz MD MAMMO Final Result * HEPATITIS PANEL,ACUTE (06/09/2022 11:03 AM CDT) HAV IGM NON-REACTI VE NON-REACT DAVE [facility] Comment: For additional information, please refer to http://[employer]faq/QYX640 (This link is being provided for informational/ educational purposes only.) HEPATITIS B SURFACE AG NON-REACTI VE NON-REACT DAVE [facility] HEP B CORE IGM NON-REACTI VE NON-REACT DAVE [facility] HEPATITIS C AB NON-REACTI VE NON-REACT DAVE [facility] SIGNAL TO CUTOFF 0.00 <[address] [facility] Comment: HCV antibody was non-reactive. There is no laboratory evidence of HCV infection. In most cases, no further action is required. However, if recent HCV exposure is suspected, a test for HCV RNA (test code 15466) is suggested. For additional information please refer to http://[employer]faq/IFD53f0 (This link is being provided for informational/ educational purposes only.) 06/09/2022 11:0 3 AM CDT 06/10/2022 6:17 AM CDT us Curtis Diaz MD LABORATORY Final Result [facility] [address] [address] * DIABETIC RETINOPATHY EXAM (NEGATIVE)(SCAN) (02/10/2022) us Documents Scanned SCANNING Final Result [facility] ON[facility] from Last 3 Months or Most Recently Relevant to Health Maintenance Additional Health Concerns Infection Onset Date Last Indicated 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 06/30/2017 Insurance MEDICAID MEDICAID Advance Directives * Full Code (Latest Code Status on File) Date Activated Date Inactivated Comments 06/13/2022 11:37 PM 06/14/2022 5:06 PM * Full Code Date Activated Date Inactivated Comments 01/29/2022 8:23 PM 01/31/2022 12:48 PM Care Teams Wellhead Pumper Relationship Specialty Start Date End Date Dasha Conway, CHRISTINE-STEPH [address] [place] [id number] PCP - General 11/02/24
--- OUTSIDE RECORDS SUMMARY | 2025-02-11 16:48 | XMS_ITS | Encounter Summary ---
Author Organization [facility] - [facility] Address [address] [place] [address] Care Team Providers Care Adult Family Home Program Manager Name Role Phone Dasha Conway [facility] Primary Care Provider +1- [phone] Encounter Details Date Type Department Care Team (Latest Contact Info) Description 04/24/2023 [employer] Message Enc [facility] Medical Group Multispecialty Care - [place] [address] [address] [address] [place] [address] Curtis Diaz MD [address] [facility] [address] [place] [address] Pelvic pain on right side Social History Tobacco Use Types Packs/Day Years [...] Sex Assigned at Female 01/08/2021 9:43 AM ASSISTANT NURSE MANAGER Legal Sex Female 5:13 PM CDT Gender Identity Female 01/08/2021 9:43 AM ASSISTANT NURSE MANAGER Sexual Orientation Straight 01/08/2021 9: 43 AM ASSISTANT NURSE MANAGER COVID-19 Exposure Response Date Recorded In the last 10 days, have yo michael been in contact with someone who was confirmed or suspected to have Coronavirus/COVID-19? No / Unsure 04/08/2023 12:51 PM CDT documented as of this encounter [...] Rule Out 11/02/2024 11/02/2024 11/02/2024 4:03 PM ASSISTANT NURSE MANAGER Assessment Noted Time PHQ-9 Depression Total Score: 11 12/2 022 12:00 PM ASSISTANT NURSE MANAGER documented as of this encounter Care Teams Adult Family Home Program Manager Relationship Specialty Start Date End Date Dasha Conway FNP- [address] [place] [address] PCP - General 11/02/24 documented as of this encounter
--- OUTSIDE RECORDS SUMMARY | 2025-02-11 16:48 | XMS_ITS | Encounter Summary ---
Author [facility] Address Count includes the [facility] [place] [address] Care Team Providers Care Special Assemblies Supervisor Name Role Phone Dasha Conway [facility] Primary Care Provider +1- [phone] Encounter Details Date Type Department Care Team (Latest Contact Info) Description 10/20/2020 ANDA Networkst Message Enc [facility] Multispecialty Care - [place] [address] [address] [address] [place] [address] [place] [address] [place] [address] [address] [place] [address] Follow Up/Update Social History Tobacco Use Types [...] Sex Assigned at Female 01/08/2021 9:43 AM PLANT MAINTENANCE MANAGER Legal Sex Female 5:13 PM CDT Gender Identity Female 01/08/2021 9:43 AM PLANT MAINTENANCE MANAGER Sexual Orientation Straight 01/08/2021 9: 43 AM PLANT MAINTENANCE MANAGER COVID-19 Exposure Response Date Recorded In the last month, have you been in contact with someone who was confirmed or suspected to have Coronavirus / COVID-19? No / Unsure 10/22/2020 12:45 PM PLANT MAINTENANCE MANAGER documented as of this encounter Plan of Treatment Not on file documented as of this encounter Visit Diagnoses Not on filedocumented in this encounter Additional Health Concerns Infection Onset Date Last Indicated Resolved Time 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 06/30/2017 COVID-19 Rule Out 12/16/2020 12/16/2020 12/17/2020 4:31 PM PLANT MAINTENANCE MANAGER COVID-19 Rule Out 06/05/2021 06/05/2021 06/05/2021 12:31 PM CDT COVID-19 Rule Out 10/23/2021 10/23/2021 10/23/2021 9:25 AM PLANT MAINTENANCE MANAGER COVID-19 Rule Out 10/23/2021 10/23/2021 10/24/2021 12:21 AM PLANT MAINTENANCE MANAGER COVID-19 Rule Out 01/15/2022 01/15/2022 01/20/2022 10:53 AM PLANT MAINTENANCE MANAGER COVID-19 Rule Out 04/21/2022 04/21/2022 04/21/2022 11:42 AM CDT COVID-19 Rule Out 04/21/2022 04/21/2022 04/26/2022 7:02 AM CDT COVID-19 Rule Out 10/06/2022 10/06/2022 10/06/2022 1:21 PM PLANT MAINTENANCE MANAGER COVID-19 Rule Out 10/06/2022 10/06/2022 10/07/2022 3:34 PM PLANT MAINTENANCE MANAGER COVID-19 Rule Out 09/14/2023 09/14/2023 09/14/2023 3:48 PM CDT COVID-19 Rule Out 11/02/2024 11/02/2024 11/02/2024 4:03 PM PLANT MAINTENANCE MANAGER Assessment Noted Time PHQ-9 Depression Total Score: 13 020 1:12 PM CDT documented as of this encounter Care Teams Special Assemblies Supervisor Relationship Specialty Start Date End Date Dasha Conway, OIL TRANSPORT DRIVER- [address] [place] [address] PCP - General 11/02/24 documented as of this encounter
--- OUTSIDE RECORDS SUMMARY | 2025-02-11 16:48 | XMS_ITS | Encounter Summary ---
Author Organization [facility] - [facility] Address [address] [place] [address] Care Team Providers Care Industrial Cleaner Name Role Phone Dasha Conway [facility] Primary Care Provider +1- [phone] Encounter Details Date Type Department Care Team (Latest Contact Info) Description 03/16/2021 Precision Biologics[employer] Message Enc [facility] Medical Group Multispecialty Care - [place] [address] [address] [address] [place] [address] [place] [address] [place] [address] 157 [place] [address] RE: Medication Questions Social History [...] Sex Assigned at Female 01/08/2021 9:43 AM MERCHANDISE HANDLER Legal Sex Female 5:13 PM CDT Gender Identity Female 01/08/2021 9:43 AM MERCHANDISE HANDLER Sexual Orientation Straight 01/08/2021 9: 43 AM MERCHANDISE HANDLER COVID-19 Exposure Response Date Recorded In the last month, have you been in contact with someone who was confirmed or suspected to have Coronavirus / COVID-19? No / Unsure 03/11/2021 3:12 PM CDT documented as of this encounter Plan of Treatment Not on file documented as of this encounter Visit Diagnoses Not on filedocumented in this encounter Additional Health Concerns Infection Onset Date Last Indicated Resolved Time 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 06/30/2017 COVID-19 Rule Out 06/05/2021 06/05/2021 06/05/2021 12:31 PM CDT COVID-19 Rule Out 10/23/2021 10/23/2021 10/23/2021 9:25 AM MERCHANDISE HANDLER COVID-19 Rule Out 10/23/2021 10/23/2021 10/24/2021 12:21 AM MERCHANDISE HANDLER COVID-19 Rule Out 01/15/2022 01/15/2022 01/20/2022 10:53 AM MERCHANDISE HANDLER COVID-19 Rule Out 04/21/2022 04/21/2022 04/21/2022 11:42 AM CDT COVID-19 Rule Out 04/21/2022 04/21/2022 04/26/2022 7:02 AM CDT COVID-19 Rule Out 10/06/2022 10/06/2022 10/06/2022 1:21 PM MERCHANDISE HANDLER COVID-19 Rule Out 10/06/2022 10/06/2022 10/07/2022 3:34 PM MERCHANDISE HANDLER COVID-19 Rule Out 09/14/2023 09/14/2023 09/14/2023 3:48 PM CDT COVID-19 Rule Out 11/02/2024 11/02/2024 11/02/2024 4:03 PM MERCHANDISE HANDLER Assessment Noted Time PHQ-9 Depression Total Score: 020 1:12 PM CDT documented as of this encounter Care Teams Industrial Cleaner Relationship Specialty Start Date End Date Dasha Conway, LEATHER WHITENER- [address] [place] [address] PCP - General 11/02/24 documented as of this encounter
--- OUTSIDE RECORDS SUMMARY | 2025-02-11 16:48 | XMS_ITS | Encounter Summary ---
Author Organization [facility] Address [facility] [place] [address] Care Team Providers Care Director Of Hemophilia Name Role Phone Dasha Conway [facility] Primary Care Provider +1- [phone] Encounter Details Date Type Department Care Team (Late st Contact Info) Description 09/08/2023 IActionablet Message Enc [facility] Medical Group Multispecialty Care - [place] [address] [address] [address] [place] [address] [place] [address] [place] [address] 157 [place] [address] Oral thrush Social History Tobacco Use Types Packs/Day Years [...] Sex Assigned at Female 01/08/2021 9:43 AM UNDERGRADUATE ADVISOR Legal Sex Female 5:13 PM CDT Gender Identity Female 01/08/2021 9:43 AM UNDERGRADUATE ADVISOR Sexual Orientation Straight 01/08/2021 9: 43 AM UNDERGRADUATE ADVISOR documented as of this encounter Functional Status [...] Rule Out 11/02/2024 11/02/2024 11/02/2024 4:03 PM UNDERGRADUATE ADVISOR Assessment Noted Time PHQ-9 Depression Total Score: 11 11/05/2 022 12:00 PM UNDERGRADUATE ADVISOR documented as of this encounter Care Teams Director Of Hemophilia Relationship Specialty Start Date End Date Dasha Conway FNP- [address] [place] [address] PCP - General 11/02/24 documented as of this encounter
--- OUTSIDE RECORDS SUMMARY | 2025-02-11 16:48 | XMS_ITS | Clinical Summary ---
Author Organization [facility] Address [address] [facility] [place] [address] Care Team Providers Care Director Patient Financial Services Name Role Phone Curtis Diaz MD Primary Care Provider [phone] Source Comments [facility],non-owned Affiliates and Associated Physician Practices is amultiple site organization consisting of ambulatory clinics and hospital sitesin [place], [place], [place] and [place]. This disclosure is being madepursuant to the Care Everywhere program and may not contain all information available regarding this patient. Last updated 18.[facility] Allergies Active Allergy Reactions Criticality Noted Date Comments Augmentin Urticaria High 12/27/2014 Azithromycin Urticaria Medium 10/30/2019 Codeine Itching 03/09/2011 Pregabalin Shortness of Breath High 10/30/2019 Ropinirole Other High 12/27/2014 Causes aims or restless movement throughout body Tramadol Vomiting 10/30/2019 Medications * Be aware that medications may not be up to date on this document. Alwaysverify current medications with the patient. Medication Sig Dispensed Refills Start Date End Date Status topiramate (TOPAMAX) 25 MG tablet Take 25 mg by mouth 2 times daily. Active loxapine (LOXITANE) 10 MG capsule Take 10 mg by mouth at bedtime. 03/09/2011 Active LORazepam (ATIVAN) 2 MG/ML solution Take 4 mg by mouth at bedtime. 03/09/2011 Active LORazepam (ATIVAN) 2 MG/ML solution Take 2 mg by mouth as needed. 03/09/2011 Active fish oil/omega-3 fatty acids (PROMEGA;CARDI-OMEGA 3) 1000 MG capsule Take 1,000 mg by mouth 3 times daily with meals. Active albuterol (PROVENTIL; VENTOLIN) 90 MCG/ACT inhaler Inhale 2 Puffs by mouth every 6 hours as needed. Active Immunizations Name Administration Dates Next Due INFLUENZA VACCINE, QUADR. (F LUZONE; FLULAVAL; FLUARIX; AFLURIA QUADRIVALENT; 6MO+), 0.5 ML (IIV4) 10/30/2019 Social History Tobacco Use Types Packs/Day Years Used Date Smoking Tobacco: Every Day Cigarettes 1 31.2 Started: 11/21/1993 Alcohol Use Standard Drinks/Week Comments No 0 (1 standard drink = 0.6 oz pur e alcohol) Sex and Gender Information Value Date Recorded Sex Assigned at Female 08/03/2021 3:36 PM CDT Gender Identity Female 08/03/2021 3:36 PM CDT Sexual Orientation Straight 08/03/2021 3: 36 PM CDT Last Filed Vital Signs Vital Sign Reading Time Taken Comments Blood Pressure 128/88 03/10/2011 8:53 AM CDT Pulse 104 03/10/2011 8:53 AM CDT Temperature 36.6 C (97.9 F) 03/10/2011 8:53 AM CDT Respiratory Rate 18 03/10/2011 8:53 AM CDT Oxygen Saturation 99% 03/10/2011 8:53 AM CDT Inhaled Oxygen Concentration - - Weight 73.5 kg (162 lb) 03/09/2011 4:55 PM CDT Height 160 cm (5' 3 ) 03/09/2011 4:55 PM CDT Body Mass Index 28.7 03/09/2011 4:55 PM CDT Plan of Treatment Health Maintenance Due Date Last Done Comments PAP SMEAR 1980 DTAP/TDAP/TD VACCINES (1 - Tdap) 1999 HEPATITIS B VACCINE (1 of 3 - 19+ 3-dose series) 1999 PNEUMOCOCCAL VACCINE (1 of 2 - PCV) 1999 COVID-19 VACCINE (1 - 2023- season) 2024 INFLUENZA VACCINE (#1) 2024 2, 10/09/2020, 10/30/2019, Additional history exists DEPRESSION SCREENING 11/21/2024 MAMMOGRAM 02/16/2025 02/16/2023 LIPID TESTING 11/16/2028 11/16/2023, 01/30/2022 ZOSTER VACCINE (1 of 2) 2030 HEPATITIS C SCREENING Completed 06/09/2022 HIV SCREENING Completed 03/30/2024 HIB VACCINE Aged Out No longer eligi ble based on patient's age to complete this topic HPV VACCINE Aged Out No longer eligi ble based on patient's age to complete this topic MENINGOCOCCAL (Group B) VACCINE SHARED DECISION-MAKING Aged Out No longer eligible based on patient's age to complete this topic MENINGOCOCCAL GROUPS A/C/Y/W VACCINE Aged Out No longer eligible based on patient's age to complete this topic Care Teams Director Patient Financial Services Relationship Specialty Start Date End Date Curtis Diaz MD [address] [facility] [address] [place] [address] [facility] - General 04/12/22
--- OUTSIDE RECORDS SUMMARY | 2025-02-11 16:48 | XMS_ITS | Encounter Summary ---
Author Organization [facility] - [facility] Address [facility] [place] [address] Care Team Providers Care Military Pilot Name Role Phone Dasha Conway [facility] Primary Care Provider [phone]- [phone] Encounter Details Date Type Department Care Team (Latest Contact Info) Description 09/13/2023 Click[employer] Message Enc [facility] Medical Group Multispecialty Care - [place] [address] [address] [address] [place] [address] [place] [address] [place] [address] 157 [place] [address] Unsure what to do Social History Tobacco Use Types Packs/Day Years [...] Sex Assigned at Female 01/08/2021 9:43 AM RADIO TECHNICIAN Legal Sex Female 5:13 PM CDT Gender Identity Female 01/08/2021 9:43 AM RADIO TECHNICIAN Sexual Orientation Straight 01/08/2021 9: 43 AM RADIO TECHNICIAN documented as of this encounter Functional [...] Rule Out 11/02/2024 11/02/2024 11/02/2024 4:03 PM RADIO TECHNICIAN Assessment Noted Time PHQ-9 Depression Total Score: 11 11/05/2 022 12:00 PM RADIO TECHNICIAN documented as of this encounter Care Teams Military Pilot Relationship Specialty Start Date End Date Dasha Conway FNP-STEPH [address] [place] [address] PCP - General 11/02/24 documented as of this encounter
--- OUTSIDE RECORDS SUMMARY | 2025-02-11 16:48 | XMS_ITS | Encounter Summary ---
Author Organization [facility] - [facility] Address [address] [place] [address] Care Team Providers Care Civil Engineering Project Designer Name Role Phone Dasha Conway [facility] Primary Care Provider [phone]- [phone] Encounter Details Date Type Department Care Team (Latest Contact Info) Description 02/28/2021 Mobiit Message Enc [facility] Medical Group Multispecialty Care - [address] [place] [address] Mela Elaine, PLAQUE MAKER RE: Follow Up/Update Social History Tobacco Use [...] Sex Assigned at Female 01/08/2021 9:43 AM SKI INSTRUCTOR Legal Sex Female 5:13 PM CDT Gender Identity Female 01/08/2021 9:43 AM SKI INSTRUCTOR Sexual Orientation Straight 01/08/2021 9: 43 AM SKI INSTRUCTOR COVID-19 Exposure Response Date Recorded In the last month, have you been in contact with someone who was confirmed or suspected to have Coronavirus / COVID-19? No / Unsure 03/02/2021 11:36 AM CDT documented as of this encounter Plan of Treatment Not on file documented as of this encounter Visit Diagnoses Not on filedocumented in this encounter Additional Health Concerns Infection Onset Date Last Indicated Resolved Time 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 06/30/2017 COVID-19 Rule Out 06/05/2021 06/05/2021 06/05/2021 12:31 PM CDT COVID-19 Rule Out 10/23/2021 10/23/2021 10/23/2021 9:25 AM SKI INSTRUCTOR COVID-19 Rule Out 10/23/2021 10/23/2021 10/24/2021 12:21 AM SKI INSTRUCTOR COVID-19 Rule Out 01/15/2022 01/15/2022 01/20/2022 10:53 AM SKI INSTRUCTOR COVID-19 Rule Out 04/21/2022 04/21/2022 04/21/2022 11:42 AM CDT COVID-19 Rule Out 04/21/2022 04/21/2022 04/26/2022 7:02 AM CDT COVID-19 Rule Out 10/06/2022 10/06/2022 10/06/2022 1:21 PM SKI INSTRUCTOR COVID-19 Rule Out 10/06/2022 10/06/2022 10/07/2022 3:34 PM SKI INSTRUCTOR COVID-19 Rule Out 09/14/2023 09/14/2023 09/14/2023 3:48 PM CDT COVID-19 Rule Out 11/02/2024 11/02/2024 11/02/2024 4:03 PM SKI INSTRUCTOR Assessment Noted Time PHQ-9 Depression Total Score: 020 1:12 PM CDT documented as of this encounter Care Teams Civil Engineering Project Designer Relationship Specialty Start Date End Date Dasha Conway FNP-BC [address] [place] [address] PCP - General 11/02/24 documented as of this encounter
--- OUTSIDE RECORDS SUMMARY | 2025-02-11 16:48 | XMS_ITS | Encounter Summary ---
Author Organization [facility] Address [facility] [place] [address] Care Team Providers Care Acidizer Helper Name Role Phone Dasha Conway [facility] Primary Care Provider +1- [phone] Encounter Details Date Type Department Care Team (Late st Contact Info) Description 06/14/2023 PetroFeedt Message Enc [facility] Medical Group Multispecialty Care - [place] [address] [address] [address] [place] [address] [place] [address] [place] [address] 157 [place] [address] GI cocktail Social History Tobacco Use Types Packs/Day Years [...] Sex Assigned at Female 01/08/2021 9:43 AM EXHAUST AND MUFFLER REPAIRER Legal Sex Female 5:13 PM CDT Gender Identity Female 01/08/2021 9:43 AM EXHAUST AND MUFFLER REPAIRER Sexual Orientation Straight 01/08/2021 9: 43 AM EXHAUST AND MUFFLER REPAIRER documented as of this encounter Functional Status [...] PM CDT Denis Nma RN Active documented in this encounter Plan [...] Rule Out 11/02/2024 11/02/2024 11/02/2024 4:03 PM EXHAUST AND MUFFLER REPAIRER Assessment Noted Time PHQ-9 Depression Total Score: 11 11/05/ 022 12:00 PM EXHAUST AND MUFFLER REPAIRER documented as of this encounter Care Teams Acidizer Helper Relationship Specialty Start Date End Date Dasha Conway FNP- [address] [place] [address] PCP - General 11/02/24 documented as of this encounter
--- OUTSIDE RECORDS SUMMARY | 2025-02-11 16:48 | XMS_ITS | Encounter Summary ---
Author Organization [facility] - [facility] Address [address] [place] [address] Care Team Providers Care Private Mortgage Banker Safe Name Role Phone Dasha Conway [facility] Primary Care Provider [phone]- [phone] Encounter Details Date Type Department Care Team (Latest Contact Info) Description 03/02/2021 Remote Assistantt Message Enc [facility] Medical Group Multispecialty Care - [address] [place] [address] Mela Elaine, VIRTUALIZATION CONSULTANT RE: Follow Up/Update Social History Tobacco Use [...] Sex Assigned at Female 01/08/2021 9:43 AM ORDER ENTRY CLERK Legal Sex Female 5:13 PM CDT Gender Identity Female 01/08/2021 9:43 AM ORDER ENTRY CLERK Sexual Orientation Straight 01/08/2021 9: 43 AM ORDER ENTRY CLERK COVID-19 Exposure Response Date Recorded In [...] Rule Out 10/23/2021 10/23/2021 10/23/2021 9:25 AM ORDER ENTRY CLERK COVID-19 Rule Out 10/23/2021 10/23/2021 10/24/2021 12:21 AM ORDER ENTRY CLERK COVID-19 Rule Out 01/15/2022 01/15/2022 01/20/2022 10:53 AM ORDER ENTRY CLERK COVID-19 Rule Out 04/21/2022 04/21/2022 04/21/2022 11:42 AM CDT COVID-19 Rule Out 04/21/2022 04/21/2022 04/26/2022 7:02 AM CDT COVID-19 Rule Out 10/06/2022 10/06/2022 10/06/2022 1:21 PM ORDER ENTRY CLERK COVID-19 Rule Out 10/06/2022 10/06/2022 10/07/2022 3:34 PM ORDER ENTRY CLERK COVID-19 Rule Out 09/14/2023 09/14/2023 09/14/2023 3:48 PM CDT COVID-19 Rule Out 11/02/2024 11/02/2024 11/02/2024 4:03 PM ORDER ENTRY CLERK Assessment Noted Time PHQ-9 Depression Total Score: 020 1:12 PM CDT documented as of this encounter Care Teams Private Mortgage Banker Safe Relationship Specialty Start Date End Date Dasha Conway FNP-BC [address] [place] [address] PCP - General 11/02/24 documented as of this encounter
--- OUTSIDE RECORDS SUMMARY | 2025-02-11 16:48 | XMS_ITS | Encounter Summary ---
Author Organization [facility] - [facility] Address [address] [place] [address] Care Team Providers Care Radio Maintainer Name Role Phone Dasha Conway [facility] Primary Care Provider +1- [phone] Encounter Details Date Type Department Care Team (Late st Contact Info) Description 04/04/2024 [employer] Message Enc [facility] Medical Group Multispecialty Care - [address] [place] [address] [employer], [facility] Provider culture Social History Tobacco Use Types Packs/Day Years [...] Assigned at Female 01/08/2021 9:43 AM SENIOR NETWORK SYSTEMS ENGINEER Legal Sex Female 5:13 PM CDT Gender Identity Female 01/08/2021 9:43 AM SENIOR NETWORK SYSTEMS ENGINEER Sexual Orientation Straight 01/08/2021 9: 43 AM SENIOR NETWORK SYSTEMS ENGINEER documented as of this encounter Functional [...] independently General No Cary anderson r, Joselito Saez RN documented as of this encounter Visit Diagnoses Not on filedocumented in this encounter Additional Health Concerns Infection Onset Date Last Indicated Resolved Time 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 06/30/2017 COVID-19 Rule Out 11/02/2024 11/02/2024 11/02/2024 4:03 PM SENIOR NETWORK SYSTEMS ENGINEER Assessment Noted Time PHQ-9 Depression Total Score: 7 11/16/20 23 9:57 AM SENIOR NETWORK SYSTEMS ENGINEER documented as of this encounter Care Teams Radio Maintainer Relationship Specialty Start Date End Date Dasha Conway, METAL ORGAN PIPE MAKER- [address] [place] [address] PCP - General 11/02/24 documented as of this encounter
--- OUTSIDE RECORDS SUMMARY | 2025-02-11 16:48 | XMS_ITS | Encounter Summary ---
Author Organization [facility] - [facility] Address [address] [place] [address] Care Team Providers Care Airborne Operations Superintendent Name Role Phone Dasha Conway [facility] Primary Care Provider +1- [phone] Encounter Details Date Type Department Care Team (Latest Contact Info) Description 04/18/2024 [employer] Message Enc [facility] Medical Group Multispecialty Care - [place] [address] [address] [place] [address] [place] [address] [place] [address] 157 [place] [address] Thrush/fluconazole Social History Tobacco Use Types Packs/Day Years [...] Sex Assigned at Female 01/08/2021 9:43 AM TELEGRAPHIC TYPEWRITER REPAIRER Legal Sex Female 5:13 PM CDT Gender Identity Female 01/08/2021 9:43 AM TELEGRAPHIC TYPEWRITER REPAIRER Sexual Orientation Straight 01/08/2021 9: 43 AM TELEGRAPHIC TYPEWRITER REPAIRER documented as of this encounter Functional [...] Rule Out 11/02/2024 11/02/2024 11/02/2024 4:03 PM TELEGRAPHIC TYPEWRITER REPAIRER Assessment Noted Time PHQ-9 Depression Total Score: 7 11/16/20 23 9:57 AM TELEGRAPHIC TYPEWRITER REPAIRER documented as of this encounter Care Teams Airborne Operations Superintendent Relationship Specialty Start Date End Date Dasha Conway FNP-STEPH [address] [place] [address] PCP - General 11/02/24 documented as of this encounter
--- OUTSIDE RECORDS SUMMARY | 2025-02-11 16:48 | XMS_ITS | Encounter Summary ---
Author Organization [facility] System Address [facility]6 [place] [address] Care Team Providers Care Seating And Mobility Technologist Name Role Phone Dasha Conway [facility] Primary Care Provider +1- [phone] Encounter Details Date Type Department Care Team (Late st Contact Info) Description 08/24/2023 openPeoplet Message Enc [facility] Medical Group Multispecialty Care - [place] [address] [address] [address] [place] [address] [place] [address] [place] [address] [address] [place] [address] GI doctor Social History Tobacco Use Types Packs/Day Years [...] Date Recorded Patient Health Questionnaire-2 Score 0 08/15/2023 Comments No Sex and Gender Information Value Date Recorded Sex Assigned at Female 01/08/2021 9:43 AM BARGE WORKER Legal Sex Female 5:13 PM CDT Gender Identity Female 01/08/2021 9:43 AM BARGE WORKER Sexual Orientation Straight 01/08/2021 9: 43 AM BARGE WORKER documented as of this encounter Functional Status [...] Rule Out 11/02/2024 11/02/2024 11/02/2024 4:03 PM BARGE WORKER Assessment Noted Time PHQ-9 Depression Total Score: 11 11/05/ 022 12:00 PM BARGE WORKER documented as of this encounter Care Teams Seating And Mobility Technologist Relationship Specialty Start Date End Date Dasha Conway FNP- [address] [place] [address] PCP - General 11/02/24 documented as of this encounter
--- OUTSIDE RECORDS SUMMARY | 2025-02-11 16:48 | XMS_ITS | Encounter Summary ---
Author Organization [facility] - [facility] System Address [facility] [place] [address] Care Team Providers Care Paving Machine Operator Name Role Phone Dasha Conway Erlin [facility] Primary Care Provider +1- [phone] Encounter Details Date Type Department Care Team (Latest Contact Info) Description 10/23/2020 HundredApplest Message Enc [facility] Medical Group Multispecialty Care - [place] [address] [address] [address] [place] [address] [place] [address] [place] [address] [address] [place] [address] RE: Follow Up/Update Social History [...] Sex Assigned at Female 01/08/2021 9:43 AM PARKING METER SERVICER Legal Sex Female 5:13 PM CDT Gender Identity Female 01/08/2021 9:43 AM PARKING METER SERVICER Sexual Orientation Straight 01/08/2021 9: 43 AM PARKING METER SERVICER COVID-19 Exposure Response Date Recorded In the last month, have you been in contact with someone who was confirmed or suspected to have Coronavirus / COVID-19? No / Unsure 10/24/2020 10:40 AM PARKING METER SERVICER documented as of this encounter Plan of Treatment Not on file documented as of this encounter Visit Diagnoses Not on filedocumented in this encounter Additional Health Concerns Infection Onset Date Last Indicated Resolved Time 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 06/30/2017 COVID-19 Rule Out 12/16/2020 12/16/2020 12/17/2020 4:31 PM PARKING METER SERVICER COVID-19 Rule Out 06/05/2021 06/05/2021 06/05/2021 12:31 PM CDT COVID-19 Rule Out 10/23/2021 10/23/2021 10/23/2021 9:25 AM PARKING METER SERVICER COVID-19 Rule Out 10/23/2021 10/23/2021 10/24/2021 12:21 AM PARKING METER SERVICER COVID-19 Rule Out 01/15/2022 01/15/2022 01/20/2022 10:53 AM PARKING METER SERVICER COVID-19 Rule Out 04/21/2022 04/21/2022 04/21/2022 11:42 AM CDT COVID-19 Rule Out 04/21/2022 04/21/2022 04/26/2022 7:02 AM CDT COVID-19 Rule Out 10/06/2022 10/06/2022 10/06/2022 1:21 PM PARKING METER SERVICER COVID-19 Rule Out 10/06/2022 10/06/2022 10/07/2022 3:34 PM PARKING METER SERVICER COVID-19 Rule Out 09/14/2023 09/14/2023 09/14/2023 3:48 PM CDT COVID-19 Rule Out 11/02/2024 11/02/2024 11/02/2024 4:03 PM PARKING METER SERVICER Assessment Noted Time PHQ-9 Depression Total Score: 020 1:12 PM CDT documented as of this encounter Care Teams Paving Machine Operator Relationship Specialty Start Date End Date Dasha Conway, IV RN- [address] [place] [address] PCP - General 11/02/24 documented as of this encounter
--- OUTSIDE RECORDS SUMMARY | 2025-02-11 16:48 | XMS_ITS | Encounter Summary ---
Author Organization [facility] - [facility] System Address [address] [place] [address] Care Team Providers Care Assembler Production Line Name Role Phone Dasha Conway [facility] Primary Care Provider +1- [phone] Encounter Details Date Type Department Care Team (Late st Contact Info) Description 02/08/2024 Telebordert Message Enc [facility] Medical Group Multispecialty Care - [place] [address] [address] [address] [place] [address] [place] [address] [place] [address] [address] [place] [address] Fluconazole Social History Tobacco Use [...] Sex Assigned at Female 01/08/2021 9:43 AM ANALYTICS DEVELOPER Legal Sex Female 5:13 PM CDT Gender Identity Female 01/08/2021 9:43 AM ANALYTICS DEVELOPER Sexual Orientation Straight 01/08/2021 9: 43 AM ANALYTICS DEVELOPER documented as of this encounter Functional [...] Rule Out 11/02/2024 11/02/2024 11/02/2024 4:03 PM ANALYTICS DEVELOPER Assessment Noted Time PHQ-9 Depression Total Score: 7 11/16/20 23 9:57 AM ANALYTICS DEVELOPER documented as of this encounter Care Teams Assembler Production Line Relationship Specialty Start Date End Date Dasha Conway FNP- [address] [place] [address] PCP - General 11/02/24 documented as of this encounter
--- OUTSIDE RECORDS SUMMARY | 2025-02-11 16:48 | XMS_ITS | Encounter Summary ---
Author Organization [facility] - [facility] System Address [address] [place] [address] Care Team Providers Care Management Expert Name Role Phone Dasha Conway [facility] Primary Care Provider +1- [phone] Encounter Details Date Type Department Care Team (Late st Contact Info) Description 02/06/2024 Dignify Therapeuticst Message Enc [facility] Medical Group Multispecialty Care - [place] [address] [address] [place] [address] [place] [address] [place] [address] 157 [place] [address] Underarm rash Social History Tobacco Use Types Packs/Day Years [...] Sex Assigned at Female 01/08/2021 9:43 AM CREDIT RISK OFFICER Legal Sex Female 5:13 PM CDT Gender Identity Female 01/08/2021 9:43 AM CREDIT RISK OFFICER Sexual Orientation Straight 01/08/2021 9: 43 AM CREDIT RISK OFFICER documented as of this encounter Functional Status [...] Rule Out 11/02/2024 11/02/2024 11/02/2024 4:03 PM CREDIT RISK OFFICER Assessment Noted Time PHQ-9 Depression Total Score: 7 11/16/20 23 9:57 AM CREDIT RISK OFFICER documented as of this encounter Care Teams Management Expert Relationship Specialty Start Date End Date Dasah Conway FNP-STEPH [address] [place] [address] PCP - General 11/02/24 documented as of this encounter
--- OUTSIDE RECORDS SUMMARY | 2025-02-11 16:48 | XMS_ITS | Encounter Summary ---
Author Organization [facility] - [facility] System Address [facility] [place] [address] Care Team Providers Care Wireless Development Manager Name Role Phone Dasha Conway Erlin [facility] Primary Care Provider +1- [phone] Encounter Details Date Type Department Care Team (Latest Contact Info) Description 11/27/2020 Satellierhart Message Enc [facility] Medical Group Multispecialty Care - [place] [address] [address] [address] [place] [address] [place] [address] [place] [address] [address] [place] [address] Medication Questions Social History Tobacco [...] at Female 01/08/2021 9:43 AM SENIOR SOFTWARE SYSTEMS ENGINEER Legal Sex Female 5:13 PM CDT Gender Identity Female 01/08/2021 9:43 AM SENIOR SOFTWARE SYSTEMS ENGINEER Sexual Orientation Straight 01/08/2021 9: 43 AM SENIOR SOFTWARE SYSTEMS ENGINEER COVID-19 Exposure Response Date Recorded In the last month, have you been in contact with someone who was confirmed or suspected to have Coronavirus / COVID-19? No / Unsure 11/28/2020 3:29 PM SENIOR SOFTWARE SYSTEMS ENGINEER documented as of this encounter Plan of Treatment Not on file documented as of this encounter Visit Diagnoses Not on filedocumented in this encounter Additional Health Concerns Infection Onset Date Last Indicated Resolved Time 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 06/30/2017 COVID-19 Rule Out 12/16/2020 12/16/2020 12/17/2020 4:31 PM SENIOR SOFTWARE SYSTEMS ENGINEER COVID-19 Rule Out 06/05/2021 06/05/2021 06/05/2021 12:31 PM CDT COVID-19 Rule Out 10/23/2021 10/23/2021 10/23/2021 9:25 AM SENIOR SOFTWARE SYSTEMS ENGINEER COVID-19 Rule Out 10/23/2021 10/23/2021 10/24/2021 12:21 AM SENIOR SOFTWARE SYSTEMS ENGINEER COVID-19 Rule Out 01/15/2022 01/15/2022 01/20/2022 10:53 AM SENIOR SOFTWARE SYSTEMS ENGINEER COVID-19 Rule Out 04/21/2022 04/21/2022 04/21/2022 11:42 AM CDT COVID-19 Rule Out 04/21/2022 04/21/2022 04/26/2022 7:02 AM CDT COVID-19 Rule Out 10/06/2022 10/06/2022 10/06/2022 1:21 PM SENIOR SOFTWARE SYSTEMS ENGINEER COVID-19 Rule Out 10/06/2022 10/06/2022 10/07/2022 3:34 PM SENIOR SOFTWARE SYSTEMS ENGINEER COVID-19 Rule Out 09/14/2023 09/14/2023 09/14/2023 3:48 PM CDT COVID-19 Rule Out 11/02/2024 11/02/2024 11/02/2024 4:03 PM SENIOR SOFTWARE SYSTEMS ENGINEER Assessment Noted Time PHQ-9 Depression Total Score: 13 020 1:12 PM CDT documented as of this encounter Care Teams Wireless Development Manager Relationship Specialty Start Date End Date Dasha Conway, HAND SPRING FORMER- [address] [place] [address] PCP - General 11/02/24 documented as of this encounter
--- OUTSIDE RECORDS SUMMARY | 2025-02-11 16:48 | XMS_ITS | Encounter Summary ---
Author Organization [facility] - [facility] System Address [facility] hospital[address] [place] [address] Care Team Providers Care Pole Truck Driver Name Role Phone Dasha Conway Erlin [facility] Primary Care Provider +1- [phone] Encounter Details Date Type Department Care Team (Latest Contact Info) Description 10/21/2020 Z2hart Message Enc [facility] Medical Group Multispecialty Care - [place] [address] [address] [address] [place] [address] [place] [address] [place] [address] [address] [place] [address] RE: Medication Questions Social History [...] Sex Assigned at Female 01/08/2021 9:43 AM SHOP GIRL Legal Sex Female 5:13 PM CDT Gender Identity Female 01/08/2021 9:43 AM SHOP GIRL Sexual Orientation Straight 01/08/2021 9: 43 AM SHOP GIRL COVID-19 Exposure Response Date Recorded In the last month, have you been in contact with someone who was confirmed or suspected to have Coronavirus / COVID-19? No / Unsure 10/24/2020 10:40 AM SHOP GIRL documented as of this encounter Plan of Treatment Not on file documented as of this encounter Visit Diagnoses Not on filedocumented in this encounter Additional Health Concerns Infection Onset Date Last Indicated Resolved Time 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 06/30/2017 COVID-19 Rule Out 12/16/2020 12/16/2020 12/17/2020 4:31 PM SHOP GIRL COVID-19 Rule Out 06/05/2021 06/05/2021 06/05/2021 12:31 PM CDT COVID-19 Rule Out 10/23/2021 10/23/2021 10/23/2021 9:25 AM SHOP GIRL COVID-19 Rule Out 10/23/2021 10/23/2021 10/24/2021 12:21 AM SHOP GIRL COVID-19 Rule Out 01/15/2022 01/15/2022 01/20/2022 10:53 AM SHOP GIRL COVID-19 Rule Out 04/21/2022 04/21/2022 04/21/2022 11:42 AM CDT COVID-19 Rule Out 04/21/2022 04/21/2022 04/26/2022 7:02 AM CDT COVID-19 Rule Out 10/06/2022 10/06/2022 10/06/2022 1:21 PM SHOP GIRL COVID-19 Rule Out 10/06/2022 10/06/2022 10/07/2022 3:34 PM SHOP GIRL COVID-19 Rule Out 09/14/2023 09/14/2023 09/14/2023 3:48 PM CDT COVID-19 Rule Out 11/02/2024 11/02/2024 11/02/2024 4:03 PM SHOP GIRL Assessment Noted Time PHQ-9 Depression Total Score: 13 020 1:12 PM CDT documented as of this encounter Care Teams Pole Truck Driver Relationship Specialty Start Date End Date Dasah Conway, HAND FORMER HELPER- [address] [place] [address] PCP - General 11/02/24 documented as of this encounter
--- OUTSIDE RECORDS SUMMARY | 2025-02-11 16:48 | XMS_ITS | Encounter Summary ---
Author Organization [facility] - [facility] Address [facility]6 [place] [address] Care Team Providers Care Panel Fitter Name Role Phone Dasha Conway Erlin [facility] Primary Care Provider +1- [phone] Encounter Details Date Type Department Care Team (Latest Contact Info) Description 11/23/2020 Bruder Healthcarehart Message Enc [facility] Medical Group Multispecialty Care - [place] [address] [address] [place] [address] [place] [address] [place] [address] [address] [place] [address] RE: Follow Up/Update Social History [...] Sex Assigned at Female 01/08/2021 9:43 AM CYLINDER DIE MACHINE HELPER Legal Sex Female 5:13 PM CDT Gender Identity Female 01/08/2021 9:43 AM CYLINDER DIE MACHINE HELPER Sexual Orientation Straight 01/08/2021 9: 43 AM CYLINDER DIE MACHINE HELPER COVID-19 Exposure Response Date Recorded In the last month, have you been in contact with someone who was confirmed or suspected to have Coronavirus / COVID-19? No / Unsure 11/24/2020 8:33 AM CYLINDER DIE MACHINE HELPER documented as of this encounter Plan of Treatment Not on file documented as of this encounter Visit Diagnoses Not on filedocumented in this encounter Additional Health Concerns Infection Onset Date Last Indicated Resolved Time 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 06/30/2017 COVID-19 Rule Out 12/16/2020 12/16/2020 12/17/2020 4:31 PM CYLINDER DIE MACHINE HELPER COVID-19 Rule Out 06/05/2021 06/05/2021 06/05/2021 12:31 PM CDT COVID-19 Rule Out 10/23/2021 10/23/2021 10/23/2021 9:25 AM CYLINDER DIE MACHINE HELPER COVID-19 Rule Out 10/23/2021 10/23/2021 10/24/2021 12:21 AM CYLINDER DIE MACHINE HELPER COVID-19 Rule Out 01/15/2022 01/15/2022 01/20/2022 10:53 AM CYLINDER DIE MACHINE HELPER COVID-19 Rule Out 04/21/2022 04/21/2022 04/21/2022 11:42 AM CDT COVID-19 Rule Out 04/21/2022 04/21/2022 04/26/2022 7:02 AM CDT COVID-19 Rule Out 10/06/2022 10/06/2022 10/06/2022 1:21 PM CYLINDER DIE MACHINE HELPER COVID-19 Rule Out 10/06/2022 10/06/2022 10/07/2022 3:34 PM CYLINDER DIE MACHINE HELPER COVID-19 Rule Out 09/14/2023 09/14/2023 09/14/2023 3:48 PM CDT COVID-19 Rule Out 11/02/2024 11/02/2024 11/02/2024 4:03 PM CYLINDER DIE MACHINE HELPER Assessment Noted Time PHQ-9 Depression Total Score: 13 020 1:12 PM CDT documented as of this encounter Care Teams Panel Fitter Relationship Specialty Start Date End Date Dasha Conway, DIETARY DIRECTOR- [address] [place] [address] PCP - General 11/02/24 documented as of this encounter
--- OUTSIDE RECORDS SUMMARY | 2025-02-11 16:48 | XMS_ITS | Encounter Summary ---
Author Organization [facility] System Address [address] [place] [address] Care Team Providers Care Belt Machine Operator Name Role Phone Dasha Conway [facility] Primary Care Provider +1- [phone] Encounter Details Date Type Department Care Team (Late st Contact Info) Description 04/04/2023 PF Changst Message Enc [facility] Medical Group Multispecialty Care - [place] [address] [address] [place] [address] [place] [address] [place] [address] 157 [place] [address] Medication Social History Tobacco Use Types Packs/Day Years [...] Sex Assigned at Female 01/08/2021 9:43 AM SIZE ROLLER OPERATOR Legal Sex Female 5:13 PM CDT Gender Identity Female 01/08/2021 9:43 AM SIZE ROLLER OPERATOR Sexual Orientation Straight 01/08/2021 9: 43 AM SIZE ROLLER OPERATOR COVID-19 Exposure Response Date Recorded In [...] Rule Out 11/02/2024 11/02/2024 11/02/2024 4:03 PM SIZE ROLLER OPERATOR Assessment Noted Time PHQ-9 Depression Total Score: 11 022 12:00 PM SIZE ROLLER OPERATOR documented as of this encounter Care Teams Belt Machine Operator Relationship Specialty Start Date End Date Dasha Conway, ADULT MINISTRIES DIRECTOR- [address] [place] [address] PCP - General 11/02/24 documented as of this encounter
--- OUTSIDE RECORDS SUMMARY | 2025-02-11 16:48 | XMS_ITS | Encounter Summary ---
Author Organization [facility] - [facility] System Address [facility]6 [place] [address] Care Team Providers Care Grazing Aide Name Role Phone Dasha Conway [facility] Primary Care Provider +1- [phone] Encounter Details Date Type Department Care Team (Latest Contact Info) Description 06/21/2023 Elegant Service Message Enc [facility] Medical Group Multispecialty Care - [place] [address] [address] [place] [address] [place] [address] [place] [address] [address] [place] [address] More dexamethasone? Social History Tobacco Use Types Packs/Day Years [...] Sex Assigned at Female 01/08/2021 9:43 AM FOREIGN EXCHANGE STUDENT COORDINATOR Legal Sex Female 5:13 PM CDT Gender Identity Female 01/08/2021 9:43 AM FOREIGN EXCHANGE STUDENT COORDINATOR Sexual Orientation Straight 01/08/2021 9: 43 AM FOREIGN EXCHANGE STUDENT COORDINATOR documented as of this encounter Functional Status [...] Rule Out 11/02/2024 11/02/2024 11/02/2024 4:03 PM FOREIGN EXCHANGE STUDENT COORDINATOR Assessment Noted Time PHQ-9 Depression Total Score: 11 11/05/ 022 12:00 PM FOREIGN EXCHANGE STUDENT COORDINATOR documented as of this encounter Care Teams Grazing Aide Relationship Specialty Start Date End Date Dasha Conway FNP- [address] [place] [address] PCP - General 11/02/24 documented as of this encounter
[2025-02-11] MEDS: PANTOPRAZOLE SODIUM IV 40 MG VIAL IV PUSH (17:34)
[2025-02-11] MEDS: BELLADONNA ALK/PHENOB ELIX 10 ML, MAG HYDROX/ALUMINUM HYD/SIMETH 30 ML, LIDOCAINE 2% VI... PO (17:34)
[2025-02-11] MEDS: FAMOTIDINE 20 MG/2 ML VIAL IV PUSH (17:34)
--- OUTSIDE RECORDS SUMMARY | 2025-02-11 18:43 | XMS_ITS | Encounter Summary ---
Author Organization [facility] - [facility] System Address [address] [place] [address] Care Team Providers Care Counter Tender Name Role Phone Dasha Conway [facility] Primary Care Provider +1- [phone] Encounter Details Date Type Department Care Team (Latest Contact Info) Description 10/23/2021 [email or web address] Message Enc [facility] Medical Group Multispecialty Care - [place] [address] [address] [place] [address] [place] [address] [place] [address] [address] [place] [address] Chest x-ray results Social History [...] Sex Assigned at Female 01/08/2021 9:43 AM GRADER GREEN MEAT Legal Sex Female 5:13 PM CDT Gender Identity Female 01/08/2021 9:43 AM GRADER GREEN MEAT Sexual Orientation Straight 01/08/2021 9: 43 AM GRADER GREEN MEAT COVID-19 Exposure Response Date Recorded In the last month, have you been in contact with someone who was confirmed or suspected to have Coronavirus / COVID-19? No / Unsure 10/22/2021 9:17 AM GRADER GREEN MEAT documented as of this encounter Plan of Treatment Not on file documented as of this encounter Visit Diagnoses Not on filedocumented in this encounter Additional Health Concerns Infection Onset Date Last Indicated Resolved Time 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 06/30/2017 COVID-19 Rule Out 10/23/2021 10/23/2021 10/23/2021 9:25 AM GRADER GREEN MEAT COVID-19 Rule Out 10/23/2021 10/23/2021 10/24/2021 12:21 AM GRADER GREEN MEAT COVID-19 Rule Out 01/15/2022 01/15/2022 01/20/2022 10:53 AM GRADER GREEN MEAT COVID-19 Rule Out 04/21/2022 04/21/2022 04/21/2022 11:42 AM CDT COVID-19 Rule Out 04/21/2022 04/21/2022 04/26/2022 7:02 AM CDT COVID-19 Rule Out 10/06/2022 10/06/2022 10/06/2022 1:21 PM GRADER GREEN MEAT COVID-19 Rule Out 10/06/2022 10/06/2022 10/07/2022 3:34 PM GRADER GREEN MEAT COVID-19 Rule Out 09/14/2023 09/14/2023 09/14/2023 3:48 PM CDT COVID-19 Rule Out 11/02/2024 11/02/2024 11/02/2024 4:03 PM GRADER GREEN MEAT Assessment Noted Time PHQ-9 Depression Total Score: 22 05 021 9:18 AM CDT documented as of this encounter Care Teams Counter Tender Relationship Specialty Start Date End Date Dasha Conway FNP-STEPH [address] [place] [address] PCP - General 11/02/24 documented as of this encounter
--- OUTSIDE RECORDS SUMMARY | 2025-02-11 18:43 | XMS_ITS | Encounter Summary ---
Author Organization [facility] - [facility] System Address [address] [place] [address] Care Team Providers Care Glue Bone Crusher Name Role Phone Dasha Conway [facility] Primary Care Provider +1- [phone] Encounter Details Date Type Department Care Team (Late st Contact Info) Description 01/26/2022 SoftTech Engineershart Message Enc [facility] Medical Group Multispecialty Care - [place] [address] [address] [place] [address] [place] [address] [place] [address] 157 [place] [address] Urethral sling Social History Tobacco [...] Sex Assigned at Female 01/08/2021 9:43 AM STROKE PROGRAM COORDINATOR Legal Sex Female 5:13 PM CDT Gender Identity Female 01/08/2021 9:43 AM STROKE PROGRAM COORDINATOR Sexual Orientation Straight 01/08/2021 9: 43 AM STROKE PROGRAM COORDINATOR COVID-19 Exposure Response Date Recorded In the last 10 days, have asif rodriguez been in contact with someone who was confirmed or suspected to have Coronavirus/COVID-19? No / Unsure 01/29/2022 9:08 AM STROKE PROGRAM COORDINATOR documented as of this encounter Functional Status documented as of this encounter Mental Status * Question Answer Entry Date Author Status Because of a physical, mental, or emotional condition, do you have serious difficulty concentrating, remembering, or making decisions? No 01/29/2022 10:15 PM STROKE PROGRAM COORDINATOR Nanette Leonard RN Active documented in this [...] Rule Out 10/06/2022 10/06/2022 10/06/2022 1:21 PM STROKE PROGRAM COORDINATOR COVID-19 Rule Out 10/06/2022 10/06/2022 10/07/2022 3:34 PM STROKE PROGRAM COORDINATOR COVID-19 Rule Out 09/14/2023 09/14/2023 09/14/2023 3:48 PM CDT COVID-19 Rule Out 11/02/2024 11/02/2024 11/02/2024 4:03 PM STROKE PROGRAM COORDINATOR Assessment Noted Time PHQ-9 Depression Total Score: 15 021 11:10 AM STROKE PROGRAM COORDINATOR documented as of this encounter Care Teams Glue Bone Crusher Relationship Specialty Start Date End Date Dasha Conway, FLASH OVEN OPERATOR- [address] [place] [address] PCP - General 11/02/24 documented as of this encounter
--- OUTSIDE RECORDS SUMMARY | 2025-02-11 18:43 | XMS_ITS | Encounter Summary ---
Author Organization [facility] - [facility] System Address [address] [place] [address] Care Team Providers Care Solar Sales Specialist Name Role Phone Dasha Conway [facility] Primary Care Provider +1- [phone] Encounter Details Date Type Department Care Team (Late st Contact Info) Description 01/28/2022 S[employer] Grouphart Message Enc [facility] Medical Group Multispecialty Care - [place] [address] [address] [address] [place] [address] [place] [address] [place] [address] [address] [place] [address] New antibiotic Social History Tobacco [...] Sex Assigned at Female 01/08/2021 9:43 AM MEDICAL SUPPLY TECHNICIAN Legal Sex Female 5:13 PM CDT Gender Identity Female 01/08/2021 9:43 AM MEDICAL SUPPLY TECHNICIAN Sexual Orientation Straight 01/08/2021 9: 43 AM MEDICAL SUPPLY TECHNICIAN COVID-19 Exposure Response Date Recorded In the [...] or making decisions? No 01/29/2022 10:15 PM MEDICAL SUPPLY TECHNICIAN Nanette Leonard RN Active documented in this [...] Rule Out 10/06/2022 10/06/2022 10/06/2022 1:21 PM MEDICAL SUPPLY TECHNICIAN COVID-19 Rule Out 10/06/2022 10/06/2022 10/07/2022 3:34 PM MEDICAL SUPPLY TECHNICIAN COVID-19 Rule Out 09/14/2023 09/14/2023 09/14/2023 3:48 PM CDT COVID-19 Rule Out 11/02/2024 11/02/2024 11/02/2024 4:03 PM MEDICAL SUPPLY TECHNICIAN Assessment Noted Time PHQ-9 Depression Total Score: 15 021 11:10 AM MEDICAL SUPPLY TECHNICIAN documented as of this encounter Care Teams Solar Sales Specialist Relationship Specialty Start Date End Date Dasha Conway, ADDING MACHINE MECHANIC-STEHP [address] [place] [address] PCP - General 11/02/24 documented as of this encounter
--- OUTSIDE RECORDS SUMMARY | 2025-02-11 18:43 | XMS_ITS | Encounter Summary ---
Author Organization [facility] - [facility] Address [address] [place] [address] Care Team Providers Care Architectural Manager Name Role Phone Dasha Conway [facility] Primary Care Provider +1- [phone] Encounter Details Date Type Department Care Team (Late st Contact Info) Description 02/09/2022 Seaside The[employer]hart Message Enc [facility] Medical Group Multispecialty Care - [place] [address] [address] [address] [place] [address] [place] [address] [place] [address] 157 [place] [address] Uti Social History Tobacco Use [...] Sex Assigned at Female 01/08/2021 9:43 AM FORM STRIPPER Legal Sex Female 5:13 PM CDT Gender Identity Female 01/08/2021 9:43 AM FORM STRIPPER Sexual Orientation Straight 01/08/2021 9: 43 AM FORM STRIPPER COVID-19 Exposure Response Date Recorded In the last 10 days, have asif rodriguez been in contact with someone who was confirmed or suspected to have Coronavirus/COVID-19? No / Unsure 02/10/2022 10:06 AM CDT documented as of this encounter Functional Status * RETIRED Are you deaf or do you have serious difficulty hearing Answer Date of Assessment Author Status No 01/29/2022 10:15 PM FORM STRIPPER Acti ve * RETIRED Are you blind or do you have serious difficulty seeing, even when wearing glasses? Answer Date of Assessment Author Status No 01/29/2022 10:15 PM FORM STRIPPER Acti ve * Do you have serious [...] Rule Out 10/06/2022 10/06/2022 10/06/2022 1:21 PM FORM STRIPPER COVID-19 Rule Out 10/06/2022 10/06/2022 10/07/2022 3:34 PM FORM STRIPPER COVID-19 Rule Out 09/14/2023 09/14/2023 09/14/2023 3:48 PM CDT COVID-19 Rule Out 11/02/2024 11/02/2024 11/02/2024 4:03 PM FORM STRIPPER Assessment Noted Time PHQ-9 Depression Total Score: 15 021 11:10 AM FORM STRIPPER documented as of this encounter Care Teams Architectural Manager Relationship Specialty Start Date End Date Dasha Conway, DOT COMPLIANCE SPECIALIST- [address] [place] [address] PCP - General 11/02/24 documented as of this encounter
--- OUTSIDE RECORDS SUMMARY | 2025-02-11 18:43 | XMS_ITS | Encounter Summary ---
Author Organization [facility] - [facility] Address [address] [place] [address] Care Team Providers Care Senior Data Warehouse Architect Name Role Phone Dasha Conway [facility] Primary Care Provider +1- [phone] Encounter Details Date Type Department Care Team (Late st Contact Info) Description 03/01/2022 Zoonahart Message Enc [facility] Medical Group Multispecialty Care - [place] [address] [address] [address] [place] [address] [place] [address] [place] [address] 157 [place] [address] Abdominal mri Social History Tobacco [...] Sex Assigned at Female 01/08/2021 9:43 AM VEHICLE CARE SPECIALIST Legal Sex Female 5:13 PM CDT Gender Identity Female 01/08/2021 9:43 AM VEHICLE CARE SPECIALIST Sexual Orientation Straight 01/08/2021 9: 43 AM VEHICLE CARE SPECIALIST COVID-19 Exposure Response Date Recorded In the last 10 days, have asif rodriguez been in contact with someone who was confirmed or suspected to have Coronavirus/COVID-19? No / Unsure 02/10/2022 10:06 AM CDT documented as of this encounter Functional Status * RETIRED Are you deaf or do you have serious difficulty hearing Answer Date of Assessment Author Status No 01/29/2022 10:15 PM VEHICLE CARE SPECIALIST Acti ve * RETIRED Are you blind or do you have serious difficulty seeing, even when wearing glasses? Answer Date of Assessment Author Status No 01/29/2022 10:15 PM VEHICLE CARE SPECIALIST Acti ve * Do you have serious [...] Rule Out 10/06/2022 10/06/2022 10/06/2022 1:21 PM VEHICLE CARE SPECIALIST COVID-19 Rule Out 10/06/2022 10/06/2022 10/07/2022 3:34 PM VEHICLE CARE SPECIALIST COVID-19 Rule Out 09/14/2023 09/14/2023 09/14/2023 3:48 PM CDT COVID-19 Rule Out 11/02/2024 11/02/2024 11/02/2024 4:03 PM VEHICLE CARE SPECIALIST Assessment Noted Time PHQ-9 Depression Total Score: 15 021 11:10 AM VEHICLE CARE SPECIALIST documented as of this encounter Care Teams Senior Data Warehouse Architect Relationship Specialty Start Date End Date Dasha Conway, CLIENT COORDINATOR- [address] [place] [address] PCP - General 11/02/24 documented as of this encounter
--- OUTSIDE RECORDS SUMMARY | 2025-02-11 18:43 | XMS_ITS | Encounter Summary ---
Author Organization [facility] Address [address] [place] [address] Care Team Providers Care Porcelain Technician Name Role Phone Dasha Conway [facility] Primary Care Provider +1- [phone] Encounter Details Date Type Department Care Team (Late st Contact Info) Description 04/10/2022 MET Techt Message Enc [facility] Medical Group Multispecialty Care - [place] [address] [address] [address] [place] [address] [place] [address] [place] [address] 157 [place] [address] Slu allergy Social History Tobacco [...] Sex Assigned at Female 01/08/2021 9:43 AM CRUSHING MILL OPERATOR Legal Sex Female 5:13 PM CDT Gender Identity Female 01/08/2021 9:43 AM CRUSHING MILL OPERATOR Sexual Orientation Straight 01/08/2021 9: 43 AM CRUSHING MILL OPERATOR COVID-19 Exposure Response Date Recorded In the last 10 days, have asif rodriguez been in contact with someone who was confirmed or suspected to have Coronavirus/COVID-19? No / Unsure 03/28/2022 8:31 PM CDT documented as of this encounter Functional Status * RETIRED Are you deaf or do you have serious difficulty hearing Answer Date of Assessment Author Status No 01/29/2022 10:15 PM CRUSHING MILL OPERATOR Acti ve * RETIRED Are you blind or do you have serious difficulty seeing, even when wearing glasses? Answer Date of Assessment Author Status No 01/29/2022 10:15 PM CRUSHING MILL OPERATOR Acti ve * Do you have serious [...] Rule Out 10/06/2022 10/06/2022 10/06/2022 1:21 PM CRUSHING MILL OPERATOR COVID-19 Rule Out 10/06/2022 10/06/2022 10/07/2022 3:34 PM CRUSHING MILL OPERATOR COVID-19 Rule Out 09/14/2023 09/14/2023 09/14/2023 3:48 PM CDT COVID-19 Rule Out 11/02/2024 11/02/2024 11/02/2024 4:03 PM CRUSHING MILL OPERATOR Assessment Noted Time PHQ-9 Depression Total Score: 15 12/14/2 021 11:10 AM CRUSHING MILL OPERATOR documented as of this encounter Care Teams Porcelain Technician Relationship Specialty Start Date End Date Dasha Conway, MASON FOREMAN/SUPERINTENDANT- [address] [place] [address] PCP - General 11/02/24 documented as of this encounter
--- OUTSIDE RECORDS SUMMARY | 2025-02-11 18:43 | XMS_ITS | Encounter Summary ---
Author Organization [facility] - [facility] Address [address] [place] [address] Care Team Providers Care Looper Operator Name Role Phone Dasha Conway [facility] Primary Care Provider +1- [phone] Encounter Details Date Type Department Care Team (Late st Contact Info) Description 01/27/2022 Pokelabohart Message Enc [facility] Medical Group Multispecialty Care - [place] [address] [address] [address] [place] [address] [place] [address] [place] [address] 157 [place] [address] Vertigo Social History Tobacco Use [...] Sex Assigned at Female 01/08/2021 9:43 AM DISTRICT CAPTAIN Legal Sex Female 5:13 PM CDT Gender Identity Female 01/08/2021 9:43 AM DISTRICT CAPTAIN Sexual Orientation Straight 01/08/2021 9: 43 AM DISTRICT CAPTAIN COVID-19 Exposure Response Date Recorded In the last 10 days, have asif rodriguez been in contact with someone who was confirmed or suspected to have Coronavirus/COVID-19? No / Unsure 01/30/2022 4:08 PM DISTRICT CAPTAIN documented as of this encounter Functional Status documented as of this encounter Mental Status * Question Answer Entry Date Author Status Because of a physical, mental, or emotional condition, do you have serious difficulty concentrating, remembering, or making decisions? No 01/29/2022 10:15 PM DISTRICT CAPTAIN Nanette Leonard RN Active documented in this [...] Rule Out 10/06/2022 10/06/2022 10/06/2022 1:21 PM DISTRICT CAPTAIN COVID-19 Rule Out 10/06/2022 10/06/2022 10/07/2022 3:34 PM DISTRICT CAPTAIN COVID-19 Rule Out 09/14/2023 09/14/2023 09/14/2023 3:48 PM CDT COVID-19 Rule Out 11/02/2024 11/02/2024 11/02/2024 4:03 PM DISTRICT CAPTAIN Assessment Noted Time PHQ-9 Depression Total Score: 15 021 11:10 AM DISTRICT CAPTAIN documented as of this encounter Care Teams Looper Operator Relationship Specialty Start Date End Date Dasha Conway, WARD SUPERVISOR- [address] [place] [address] PCP - General 11/02/24 documented as of this encounter
--- OUTSIDE RECORDS SUMMARY | 2025-02-11 18:43 | XMS_ITS | Encounter Summary ---
Author Organization [facility] Address [address] [place] [address] Care Team Providers Care Jointer Submarine Cable Name Role Phone Dasha Conway [facility] Primary Care Provider +1- [phone] Encounter Details Date Type Department Care Team (Latest Contact Info) Description 02/02/2022 Ideatoryt Message Enc [facility] Medical Group Multispecialty Care - [place] [address] [address] [address] [place] [address] [place] [address] [place] [address] 157 [place] [address] follow up appointment Social History [...] Sex Assigned at Female 01/08/2021 9:43 AM INCINERATOR PLANT LABORER Legal Sex Female 5:13 PM CDT Gender Identity Female 01/08/2021 9:43 AM INCINERATOR PLANT LABORER Sexual Orientation Straight 01/08/2021 9: 43 AM INCINERATOR PLANT LABORER COVID-19 Exposure Response Date Recorded In the last 10 days, have asif rodriguez been in contact with someone who was confirmed or suspected to have Coronavirus/COVID-19? No / Unsure 02/02/2022 10:59 AM CDT documented as of this encounter Functional Status * RETIRED Are you deaf or do you have serious difficulty hearing Answer Date of Assessment Author Status No 01/29/2022 10:15 PM INCINERATOR PLANT LABORER Acti ve * RETIRED Are you blind or do you have serious difficulty seeing, even when wearing glasses? Answer Date of Assessment Author Status No 01/29/2022 10:15 PM INCINERATOR PLANT LABORER Acti ve * Do you have serious [...] Rule Out 10/06/2022 10/06/2022 10/06/2022 1:21 PM INCINERATOR PLANT LABORER COVID-19 Rule Out 10/06/2022 10/06/2022 10/07/2022 3:34 PM INCINERATOR PLANT LABORER COVID-19 Rule Out 09/14/2023 09/14/2023 09/14/2023 3:48 PM CDT COVID-19 Rule Out 11/02/2024 11/02/2024 11/02/2024 4:03 PM INCINERATOR PLANT LABORER Assessment Noted Time PHQ-9 Depression Total Score: 15 021 11:10 AM INCINERATOR PLANT LABORER documented as of this encounter Care Teams Jointer Submarine Cable Relationship Specialty Start Date End Date Dasha Conway, CIRCULATION LIBRARIAN- [address] [place] [address] PCP - General 11/02/24 documented as of this encounter
--- OUTSIDE RECORDS SUMMARY | 2025-02-11 18:43 | XMS_ITS | Encounter Summary ---
Author Organization [facility] - [facility] Address [address] [place] [address] Care Team Providers Care Disc Pad Plate Filler Name Role Phone Dasha Conway [facility] Primary Care Provider +1- [phone] Encounter Details Date Type Department Care Team (Late st Contact Info) Description 10/29/2021 5apphart Message Enc [facility] Medical Group Multispecialty Care - [place] [address] [address] [address] [place] [address] [place] [address] [place] [address] 157 [place] [address] Blood sugar Social History Tobacco [...] Sex Assigned at Female 01/08/2021 9:43 AM PUBLIC UTILITIES SALES REPRESENTATIVE Legal Sex Female 5:13 PM CDT Gender Identity Female 01/08/2021 9:43 AM PUBLIC UTILITIES SALES REPRESENTATIVE Sexual Orientation Straight 01/08/2021 9: 43 AM PUBLIC UTILITIES SALES REPRESENTATIVE COVID-19 Exposure Response Date Recorded In the last month, have you been in contact with someone who was confirmed or suspected to have Coronavirus / COVID-19? No / Unsure 10/22/2021 9:17 AM PUBLIC UTILITIES SALES REPRESENTATIVE documented as of this encounter Plan of Treatment Not on file documented as of this encounter Visit Diagnoses Not on filedocumented in this encounter Additional Health Concerns Infection Onset Date Last Indicated Resolved Time 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 06/30/2017 COVID-19 Rule Out 01/15/2022 01/15/2022 01/20/2022 10:53 AM PUBLIC UTILITIES SALES REPRESENTATIVE COVID-19 Rule Out 04/21/2022 04/21/2022 04/21/2022 11:42 AM CDT COVID-19 Rule Out 04/21/2022 04/21/2022 04/26/2022 7:02 AM CDT COVID-19 Rule Out 10/06/2022 10/06/2022 10/06/2022 1:21 PM PUBLIC UTILITIES SALES REPRESENTATIVE COVID-19 Rule Out 10/06/2022 10/06/2022 10/07/2022 3:34 PM PUBLIC UTILITIES SALES REPRESENTATIVE COVID-19 Rule Out 09/14/2023 09/14/2023 09/14/2023 3:48 PM CDT COVID-19 Rule Out 11/02/2024 11/02/2024 11/02/2024 4:03 PM PUBLIC UTILITIES SALES REPRESENTATIVE Assessment Noted Time PHQ-9 Depression Total Score: 22 021 9:18 AM CDT documented as of this encounter Care Teams Disc Pad Plate Filler Relationship Specialty Start Date End Date Dasha Conway FNP- [address] [place] [address] PCP - General 11/02/24 documented as of this encounter
--- OUTSIDE RECORDS SUMMARY | 2025-02-11 18:43 | XMS_ITS | Encounter Summary ---
Author Organization [facility] Address [address] [place] [address] Care Team Providers Care Sheriffs Name Role Phone Dasha Conway [facility] Primary Care Provider +1- [phone] Encounter Details Date Type Department Care Team (Latest Contact Info) Description 08/14/2021 Reset [employer]hart Message Enc [facility] Medical Group Multispecialty Care - [place] [address] [address] [address] [place] [address] [place] [address] [place] [address] 157 [place] [address] RE: Medication Questions Social History [...] Sex Assigned at Female 01/08/2021 9:43 AM LEAD PRESS OPERATOR Legal Sex Female 5:13 PM CDT Gender Identity Female 01/08/2021 9:43 AM LEAD PRESS OPERATOR Sexual Orientation Straight 01/08/2021 9: 43 AM LEAD PRESS OPERATOR COVID-19 Exposure Response Date Recorded In [...] Rule Out 10/23/2021 10/23/2021 10/23/2021 9:25 AM LEAD PRESS OPERATOR COVID-19 Rule Out 10/23/2021 10/23/2021 10/24/2021 12:21 AM LEAD PRESS OPERATOR COVID-19 Rule Out 01/15/2022 01/15/2022 01/20/2022 10:53 AM LEAD PRESS OPERATOR COVID-19 Rule Out 04/21/2022 04/21/2022 04/21/2022 11:42 AM CDT COVID-19 Rule Out 04/21/2022 04/21/2022 04/26/2022 7:02 AM CDT COVID-19 Rule Out 10/06/2022 10/06/2022 10/06/2022 1:21 PM LEAD PRESS OPERATOR COVID-19 Rule Out 10/06/2022 10/06/2022 10/07/2022 3:34 PM LEAD PRESS OPERATOR COVID-19 Rule Out 09/14/2023 09/14/2023 09/14/2023 3:48 PM CDT COVID-19 Rule Out 11/02/2024 11/02/2024 11/02/2024 4:03 PM LEAD PRESS OPERATOR Assessment Noted Time PHQ-9 Depression Total Score: 22 05 021 9:18 AM CDT documented as of this encounter Care Teams Sheriffs Relationship Specialty Start Date End Date Dasha Conway FNP-STEPH [address] [place] [address] PCP - General 11/02/24 documented as of this encounter
--- OUTSIDE RECORDS SUMMARY | 2025-02-11 18:43 | XMS_ITS | Encounter Summary ---
Author Organization [facility] - [facility] Address [address] [place] [address] Care Team Providers Care Professor Of Communication And Writing Name Role Phone Dasha Conway [facility] Primary Care Provider +1- [phone] Encounter Details Date Type Department Care Team (Late st Contact Info) Description 05/12/2021 Rummble [employer]art Message Enc [facility] Medical Group Multispecialty Care - [place] [address] [address] [address] [place] [address] [place] [address] [place] [address] [address] [place] [address] RE: Question Social History Tobacco [...] Sex Assigned at Female 01/08/2021 9:43 AM CHIEF YEOMAN Legal Sex Female 5:13 PM CDT Gender Identity Female 01/08/2021 9:43 AM CHIEF YEOMAN Sexual Orientation Straight 01/08/2021 9: 43 AM CHIEF YEOMAN COVID-19 Exposure Response Date Recorded In the [...] Rule Out 10/23/2021 10/23/2021 10/23/2021 9:25 AM CHIEF YEOMAN COVID-19 Rule Out 10/23/2021 10/23/2021 10/24/2021 12:21 AM CHIEF YEOMAN COVID-19 Rule Out 01/15/2022 01/15/2022 01/20/2022 10:53 AM CHIEF YEOMAN COVID-19 Rule Out 04/21/2022 04/21/2022 04/21/2022 11:42 AM CDT COVID-19 Rule Out 04/21/2022 04/21/2022 04/26/2022 7:02 AM CDT COVID-19 Rule Out 10/06/2022 10/06/2022 10/06/2022 1:21 PM CHIEF YEOMAN COVID-19 Rule Out 10/06/2022 10/06/2022 10/07/2022 3:34 PM CHIEF YEOMAN COVID-19 Rule Out 09/14/2023 09/14/2023 09/14/2023 3:48 PM CDT COVID-19 Rule Out 11/02/2024 11/02/2024 11/02/2024 4:03 PM CHIEF YEOMAN Assessment Noted Time PHQ-9 Depression Total Score: 22 021 9:18 AM CDT documented as of this encounter Care Teams Professor Of Communication And Writing Relationship Specialty Start Date End Date Dasha Conway, HEMMER AUTOMATIC-STEPH [address] [place] [address] PCP - General 11/02/24 documented as of this encounter
--- OUTSIDE RECORDS SUMMARY | 2025-02-11 18:43 | XMS_ITS | Encounter Summary ---
Author Organization [facility] - [facility] Address [address] [place] [address] Care Team Providers Care Wood Barrel Reconditioner Name Role Phone Dasha Conway [facility] Primary Care Provider +1- [phone] Encounter Details Date Type Department Care Team (Late st Contact Info) Description 05/06/2021 [employer]os [employer] Message Enc [facility] Medical Group Multispecialty Care - [place] [address] [address] [address] [place] [address] [place] [address] [place] [address] [address] [place] [address] update Social History Tobacco Use [...] Sex Assigned at Female 01/08/2021 9:43 AM PRODUCTION OFFICER Legal Sex Female 5:13 PM CDT Gender Identity Female 01/08/2021 9:43 AM PRODUCTION OFFICER Sexual Orientation Straight 01/08/2021 9: 43 AM PRODUCTION OFFICER COVID-19 Exposure Response Date Recorded In the [...] Rule Out 10/23/2021 10/23/2021 10/23/2021 9:25 AM PRODUCTION OFFICER COVID-19 Rule Out 10/23/2021 10/23/2021 10/24/2021 12:21 AM PRODUCTION OFFICER COVID-19 Rule Out 01/15/2022 01/15/2022 01/20/2022 10:53 AM PRODUCTION OFFICER COVID-19 Rule Out 04/21/2022 04/21/2022 04/21/2022 11:42 AM CDT COVID-19 Rule Out 04/21/2022 04/21/2022 04/26/2022 7:02 AM CDT COVID-19 Rule Out 10/06/2022 10/06/2022 10/06/2022 1:21 PM PRODUCTION OFFICER COVID-19 Rule Out 10/06/2022 10/06/2022 10/07/2022 3:34 PM PRODUCTION OFFICER COVID-19 Rule Out 09/14/2023 09/14/2023 09/14/2023 3:48 PM CDT COVID-19 Rule Out 11/02/2024 11/02/2024 11/02/2024 4:03 PM PRODUCTION OFFICER Assessment Noted Time PHQ-9 Depression Total Score: 22 021 9:18 AM CDT documented as of this encounter Care Teams Wood Barrel Reconditioner Relationship Specialty Start Date End Date Dasha Conway FNP-STEPH [address] [place] [address] PCP - General 11/02/24 documented as of this encounter
--- OUTSIDE RECORDS SUMMARY | 2025-02-11 18:43 | XMS_ITS | Encounter Summary ---
Author Organization [facility] - [facility] Address [address] [place] [address] Care Team Providers Care Production Counter Name Role Phone Dasha Conway [facility] Primary Care Provider +1- [phone] Encounter Details Date Type Department Care Team (Latest Contact Info) Description 03/08/2022 Charter [employer]hart Message Enc [facility] Medical Group Multispecialty Care - [place] [address] [address] [address] [place] [address] [place] [address] [place] [address] [address] [place] [address] Kidney infection Social History Tobacco [...] Sex Assigned at Female 01/08/2021 9:43 AM COAT PADDER Legal Sex Female 5:13 PM CDT Gender Identity Female 01/08/2021 9:43 AM COAT PADDER Sexual Orientation Straight 01/08/2021 9: 43 AM COAT PADDER COVID-19 Exposure Response Date Recorded In the last 10 days, have asif rodriguez been in contact with someone who was confirmed or suspected to have Coronavirus/COVID-19? No / Unsure 03/10/2022 3:15 PM CDT documented as of this encounter Functional Status * RETIRED Are you deaf or do you have serious difficulty hearing Answer Date of Assessment Author Status No 01/29/2022 10:15 PM COAT PADDER Acti ve * RETIRED Are you blind or do you have serious difficulty seeing, even when wearing glasses? Answer Date of Assessment Author Status No 01/29/2022 10:15 PM COAT PADDER Acti ve * Do you have serious [...] Rule Out 10/06/2022 10/06/2022 10/06/2022 1:21 PM COAT PADDER COVID-19 Rule Out 10/06/2022 10/06/2022 10/07/2022 3:34 PM COAT PADDER COVID-19 Rule Out 09/14/2023 09/14/2023 09/14/2023 3:48 PM CDT COVID-19 Rule Out 11/02/2024 11/02/2024 11/02/2024 4:03 PM COAT PADDER Assessment Noted Time PHQ-9 Depression Total Score: 15 021 11:10 AM COAT PADDER documented as of this encounter Care Teams Production Counter Relationship Specialty Start Date End Date Dasha Conway, MANAGER SOLAR- [address] [place] [address] PCP - General 11/02/24 documented as of this encounter
--- OUTSIDE RECORDS SUMMARY | 2025-02-11 18:43 | XMS_ITS | Encounter Summary ---
Author Organization [facility] - [facility] Address [address] [place] [address] Care Team Providers Care Kiln Fireman Name Role Phone Dasha Conway [facility] Primary Care Provider +1- [phone] Encounter Details Date Type Department Care Team (Late st Contact Info) Description 04/08/2021 [employer] Science [employer]hart Message Enc [facility] Medical Group Multispecialty Care - [place] [address] [address] [address] [place] [address] [place] [address] [place] [address] [address] [place] [address] RE: Question Social History Tobacco [...] Sex Assigned at Female 01/08/2021 9:43 AM STEEL FLOOR PAN PLACING SUPERVISOR Legal Sex Female 5:13 PM CDT Gender Identity Female 01/08/2021 9:43 AM STEEL FLOOR PAN PLACING SUPERVISOR Sexual Orientation Straight 01/08/2021 9: 43 AM STEEL FLOOR PAN PLACING SUPERVISOR COVID-19 Exposure Response Date Recorded In [...] Rule Out 10/23/2021 10/23/2021 10/23/2021 9:25 AM STEEL FLOOR PAN PLACING SUPERVISOR COVID-19 Rule Out 10/23/2021 10/23/2021 10/24/2021 12:21 AM STEEL FLOOR PAN PLACING SUPERVISOR COVID-19 Rule Out 01/15/2022 01/15/2022 01/20/2022 10:53 AM STEEL FLOOR PAN PLACING SUPERVISOR COVID-19 Rule Out 04/21/2022 04/21/2022 04/21/2022 11:42 AM CDT COVID-19 Rule Out 04/21/2022 04/21/2022 04/26/2022 7:02 AM CDT COVID-19 Rule Out 10/06/2022 10/06/2022 10/06/2022 1:21 PM STEEL FLOOR PAN PLACING SUPERVISOR COVID-19 Rule Out 10/06/2022 10/06/2022 10/07/2022 3:34 PM STEEL FLOOR PAN PLACING SUPERVISOR COVID-19 Rule Out 09/14/2023 09/14/2023 09/14/2023 3:48 PM CDT COVID-19 Rule Out 11/02/2024 11/02/2024 11/02/2024 4:03 PM STEEL FLOOR PAN PLACING SUPERVISOR Assessment Noted Time PHQ-9 Depression Total Score: 22 021 9:18 AM CDT documented as of this encounter Care Teams Kiln Fireman Relationship Specialty Start Date End Date Dasha Conway, WRAP YARN SORTER-STEPH [address] [place] [phone] PCP - General 11/02/24 documented as of this encounter
--- OUTSIDE RECORDS SUMMARY | 2025-02-11 18:43 | XMS_ITS | Encounter Summary ---
Author Organization [facility] - [facility] Address [address] [place] [address] Care Team Providers Care Telephone Cleaner Name Role Phone Dasha Conway [facility] Primary Care Provider +1- [phone] Encounter Details Date Type Department Care Team (Late st Contact Info) Description 11/24/2021 EverConnecthart Message Enc [facility] Medical Group Multispecialty Care - [place] [address] [address] [address] [place] [address] [place] [address] [place] [address] [address] [place] [address] PFT and Covid Social History [...] Assigned at Female 01/08/2021 9:43 AM PRODUCTION WORKER Legal Sex Female 5:13 PM CDT Gender Identity Female 01/08/2021 9:43 AM PRODUCTION WORKER Sexual Orientation Straight 01/08/2021 9: 43 AM PRODUCTION WORKER COVID-19 Exposure Response Date Recorded In the last month, have you been in contact with someone who was confirmed or suspected to have Coronavirus / COVID-19? No / Unsure 11/27/2021 11:33 AM PRODUCTION WORKER documented as of this encounter Plan of Treatment Not on file documented as of this encounter Visit Diagnoses Not on filedocumented in this encounter Additional Health Concerns Infection Onset Date Last Indicated Resolved Time 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 06/30/2017 COVID-19 Rule Out 01/15/2022 01/15/2022 01/20/2022 10:53 AM PRODUCTION WORKER COVID-19 Rule Out 04/21/2022 04/21/2022 04/21/2022 11:42 AM CDT COVID-19 Rule Out 04/21/2022 04/21/2022 04/26/2022 7:02 AM CDT COVID-19 Rule Out 10/06/2022 10/06/2022 10/06/2022 1:21 PM PRODUCTION WORKER COVID-19 Rule Out 10/06/2022 10/06/2022 10/07/2022 3:34 PM PRODUCTION WORKER COVID-19 Rule Out 09/14/2023 09/14/2023 09/14/2023 3:48 PM CDT COVID-19 Rule Out 11/02/2024 11/02/2024 11/02/2024 4:03 PM PRODUCTION WORKER Assessment Noted Time PHQ-9 Depression Total Score: 15 021 11:10 AM PRODUCTION WORKER documented as of this encounter Care Teams Telephone Cleaner Relationship Specialty Start Date End Date Dasha Conway FNP-STEPH [address] [place] [address] PCP - General 11/02/24 documented as of this encounter
--- OUTSIDE RECORDS SUMMARY | 2025-02-11 18:43 | XMS_ITS | Encounter Summary ---
Author Organization [facility] - [facility] Address [address] [place] [address] Care Team Providers Care Tar Heat Exchanger Cleaner Name Role Phone Dasha Conway [facility] Primary Care Provider +1- [phone] Encounter Details Date Type Department Care Team (Latest Contact Info) Description 01/01/2022 Buddyhart Message Enc [facility] Medical Group Multispecialty Care - [place] [address] [address] [address] [place] [address] [place] [address] [place] [address] [address] [place] [address] Normal lymph nodes Social History [...] Sex Assigned at Female 01/08/2021 9:43 AM EMBOSSING MACHINE OPERATOR HELPER Legal Sex Female 5:13 PM CDT Gender Identity Female 01/08/2021 9:43 AM EMBOSSING MACHINE OPERATOR HELPER Sexual Orientation Straight 01/08/2021 9: 43 AM EMBOSSING MACHINE OPERATOR HELPER COVID-19 Exposure Response Date Recorded In the last 10 days, have asif rodriguez been in contact with someone who was confirmed or suspected to have Coronavirus/COVID-19? No / Unsure 12/29/2021 10:09 PM EMBOSSING MACHINE OPERATOR HELPER documented as of this encounter Plan of Treatment Not on file documented as of this encounter Visit Diagnoses Not on filedocumented in this encounter Additional Health Concerns Infection Onset Date Last Indicated Resolved Time 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 06/30/2017 COVID-19 Rule Out 01/15/2022 01/15/2022 01/20/2022 10:53 AM EMBOSSING MACHINE OPERATOR HELPER COVID-19 Rule Out 04/21/2022 04/21/2022 04/21/2022 11:42 AM CDT COVID-19 Rule Out 04/21/2022 04/21/2022 04/26/2022 7:02 AM CDT COVID-19 Rule Out 10/06/2022 10/06/2022 10/06/2022 1:21 PM EMBOSSING MACHINE OPERATOR HELPER COVID-19 Rule Out 10/06/2022 10/06/2022 10/07/2022 3:34 PM EMBOSSING MACHINE OPERATOR HELPER COVID-19 Rule Out 09/14/2023 09/14/2023 09/14/2023 3:48 PM CDT COVID-19 Rule Out 11/02/2024 11/02/2024 11/02/2024 4:03 PM EMBOSSING MACHINE OPERATOR HELPER Assessment Noted Time PHQ-9 Depression Total Score: 15 021 11:10 AM EMBOSSING MACHINE OPERATOR HELPER documented as of this encounter Care Teams Tar Heat Exchanger Cleaner Relationship Specialty Start Date End Date Dasha Conway FNP-STEPH [address] [place] [address] PCP - General 11/02/24 documented as of this encounter
--- OUTSIDE RECORDS SUMMARY | 2025-02-11 18:43 | XMS_ITS | Encounter Summary ---
Author Organization [facility] System Address [address] [place] [address] Care Team Providers Care Avionics Safety Inspector Name Role Phone Dasha Conway [facility] Primary Care Provider +1- [phone] Encounter Details Date Type Department Care Team (Late st Contact Info) Description 04/07/2022 Boulder Wind Powert Message Enc [facility] Medical Group Multispecialty Care - [place] [address] [address] [address] [place] [address] [place] [address] [place] [address] 157 [place] [address] Dexamethasone Social History Tobacco Use [...] Sex Assigned at Female 01/08/2021 9:43 AM GREEN ENERGY MARKETING ANALYST Legal Sex Female 5:13 PM CDT Gender Identity Female 01/08/2021 9:43 AM GREEN ENERGY MARKETING ANALYST Sexual Orientation Straight 01/08/2021 9: 43 AM GREEN ENERGY MARKETING ANALYST COVID-19 Exposure Response Date Recorded In the last 10 days, have asif rodriguez been in contact with someone who was confirmed or suspected to have Coronavirus/COVID-19? No / Unsure 03/28/2022 8:31 PM CDT documented as of this encounter Functional Status * RETIRED Are you deaf or do you have serious difficulty hearing Answer Date of Assessment Author Status No 01/29/2022 10:15 PM GREEN ENERGY MARKETING ANALYST Acti ve * RETIRED Are you blind or do you have serious difficulty seeing, even when wearing glasses? Answer Date of Assessment Author Status No 01/29/2022 10:15 PM GREEN ENERGY MARKETING ANALYST Acti ve * Do you have [...] Rule Out 10/06/2022 10/06/2022 10/06/2022 1:21 PM GREEN ENERGY MARKETING ANALYST COVID-19 Rule Out 10/06/2022 10/06/2022 10/07/2022 3:34 PM GREEN ENERGY MARKETING ANALYST COVID-19 Rule Out 09/14/2023 09/14/2023 09/14/2023 3:48 PM CDT COVID-19 Rule Out 11/02/2024 11/02/2024 11/02/2024 4:03 PM GREEN ENERGY MARKETING ANALYST Assessment Noted Time PHQ-9 Depression Total Score: 15 021 11:10 AM GREEN ENERGY MARKETING ANALYST documented as of this encounter Care Teams Avionics Safety Inspector Relationship Specialty Start Date End Date Dasha Conway, ELECTRONICS DEPARTMENT MANAGER- [address] [place] [address] PCP - General 11/02/24 documented as of this encounter
--- OUTSIDE RECORDS SUMMARY | 2025-02-11 18:43 | XMS_ITS | Encounter Summary ---
Author Organization [facility] Address [address] [place] [address] Care Team Providers Care Access Control Officer Name Role Phone Dasha Conway [facility] Primary Care Provider +1- [phone] Encounter Details Date Type Department Care Team (Late st Contact Info) Description 03/24/[address] [facility] Medical Group Multispecialty Care - [place] [address] [address] [address] [place] [address] [place] [address] [place] [address] 157 [place] [address] Dexamethasone Social History Tobacco Use [...] Sex Assigned at Female 01/08/2021 9:43 AM BIOLOGICAL TECHNICIAN Legal Sex Female 5:13 PM CDT Gender Identity Female 01/08/2021 9:43 AM BIOLOGICAL TECHNICIAN Sexual Orientation Straight 01/08/2021 9: 43 AM BIOLOGICAL TECHNICIAN COVID-19 Exposure Response Date Recorded In the last 10 days, have asif rodriguez been in contact with someone who was confirmed or suspected to have Coronavirus/COVID-19? No / Unsure 03/20/2022 10:11 AM CDT documented as of this encounter Functional Status * RETIRED Are you deaf or do you have serious difficulty hearing Answer Date of Assessment Author Status No 01/29/2022 10:15 PM BIOLOGICAL TECHNICIAN Acti ve * RETIRED Are you blind or do you have serious difficulty seeing, even when wearing glasses? Answer Date of Assessment Author Status No 01/29/2022 10:15 PM BIOLOGICAL TECHNICIAN Acti ve * Do you have serious [...] Assessment Author Status No 01/29/2022 10:15 PM Nantete Bagley RN Active documented as of this [...] Rule Out 10/06/2022 10/06/2022 10/06/2022 1:21 PM BIOLOGICAL TECHNICIAN COVID-19 Rule Out 10/06/2022 10/06/2022 10/07/2022 3:34 PM BIOLOGICAL TECHNICIAN COVID-19 Rule Out 09/14/2023 09/14/2023 09/14/2023 3:48 PM CDT COVID-19 Rule Out 11/02/2024 11/02/2024 11/02/2024 4:03 PM BIOLOGICAL TECHNICIAN Assessment Noted Time PHQ-9 Depression Total Score: 15 021 11:10 AM BIOLOGICAL TECHNICIAN documented as of this encounter Care Teams Access Control Officer Relationship Specialty Start Date End Date Dasha Conway, CASING IN LINE SETTER- [address] [place] [address] PCP - General 11/02/24 documented as of this encounter
--- OUTSIDE RECORDS SUMMARY | 2025-02-11 18:43 | XMS_ITS | Encounter Summary ---
Author Organization [facility] - [facility] Address [address] [place] [address] Care Team Providers Care Grader Operator Name Role Phone Dasha Conway [facility] Primary Care Provider +1- [phone] Encounter Details Date Type Department Care Team (Late st Contact Info) Description 08/11/2021 Lifesquarehart Message Enc [facility] Medical Group Multispecialty Care - [place] [address] [address] [address] [place] [address] [place] [address] [place] [address] 157 [place] [address] RE: fax number Social History [...] Assigned at Female 01/08/2021 9:43 AM MEDICAL PHYSIOLOGIST Legal Sex Female 5:13 PM CDT Gender Identity Female 01/08/2021 9:43 AM MEDICAL PHYSIOLOGIST Sexual Orientation Straight 01/08/2021 9: 43 AM MEDICAL PHYSIOLOGIST COVID-19 Exposure Response Date Recorded In the [...] Rule Out 10/23/2021 10/23/2021 10/23/2021 9:25 AM MEDICAL PHYSIOLOGIST COVID-19 Rule Out 10/23/2021 10/23/2021 10/24/2021 12:21 AM MEDICAL PHYSIOLOGIST COVID-19 Rule Out 01/15/2022 01/15/2022 01/20/2022 10:53 AM MEDICAL PHYSIOLOGIST COVID-19 Rule Out 04/21/2022 04/21/2022 04/21/2022 11:42 AM CDT COVID-19 Rule Out 04/21/2022 04/21/2022 04/26/2022 7:02 AM CDT COVID-19 Rule Out 10/06/2022 10/06/2022 10/06/2022 1:21 PM MEDICAL PHYSIOLOGIST COVID-19 Rule Out 10/06/2022 10/06/2022 10/07/2022 3:34 PM MEDICAL PHYSIOLOGIST COVID-19 Rule Out 09/14/2023 09/14/2023 09/14/2023 3:48 PM CDT COVID-19 Rule Out 11/02/2024 11/02/2024 11/02/2024 4:03 PM MEDICAL PHYSIOLOGIST Assessment Noted Time PHQ-9 Depression Total Score: 22 021 9:18 AM CDT documented as of this encounter Care Teams Grader Operator Relationship Specialty Start Date End Date Dasha Conway FNP-STEPH [address] [place] [address] PCP - General 11/02/24 documented as of this encounter
--- OUTSIDE RECORDS SUMMARY | 2025-02-11 18:43 | XMS_ITS | Encounter Summary ---
Author Organization [facility] - [facility] Address [address] [place] [address] Care Team Providers Care Ict Support And Test Engineers Name Role Phone Dasha Conway [facility] Primary Care Provider +1- [phone] Encounter Details Date Type Department Care Team (Late st Contact Info) Description 12/30/2021 Hatchhart Message Enc [facility] Medical Group Multispecialty Care - [place] [address] [address] [address] [place] [address] [place] [address] [place] [address] 157 [place] [address] Test results Social History Tobacco [...] Sex Assigned at Female 01/08/2021 9:43 AM GYRO MECHANIC Legal Sex Female 5:13 PM CDT Gender Identity Female 01/08/2021 9:43 AM GYRO MECHANIC Sexual Orientation Straight 01/08/2021 9: 43 AM GYRO MECHANIC COVID-19 Exposure Response Date Recorded In the last 10 days, have asif rodriguez been in contact with someone who was confirmed or suspected to have Coronavirus/COVID-19? No / Unsure 12/29/2021 10:09 PM GYRO MECHANIC documented as of this encounter Plan of Treatment Not on file documented as of this encounter Visit Diagnoses Not on filedocumented in this encounter Additional Health Concerns Infection Onset Date Last Indicated Resolved Time 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 06/30/2017 COVID-19 Rule Out 01/15/2022 01/15/2022 01/20/2022 10:53 AM GYRO MECHANIC COVID-19 Rule Out 04/21/2022 04/21/2022 04/21/2022 11:42 AM CDT COVID-19 Rule Out 04/21/2022 04/21/2022 04/26/2022 7:02 AM CDT COVID-19 Rule Out 10/06/2022 10/06/2022 10/06/2022 1:21 PM GYRO MECHANIC COVID-19 Rule Out 10/06/2022 10/06/2022 10/07/2022 3:34 PM GYRO MECHANIC COVID-19 Rule Out 09/14/2023 09/14/2023 09/14/2023 3:48 PM CDT COVID-19 Rule Out 11/02/2024 11/02/2024 11/02/2024 4:03 PM GYRO MECHANIC Assessment Noted Time PHQ-9 Depression Total Score: 15 021 11:10 AM GYRO MECHANIC documented as of this encounter Care Teams Ict Support And Test Engineers Relationship Specialty Start Date End Date Dasha Conway FNP-STEPH [address] [place] [address] PCP - General 11/02/24 documented as of this encounter
--- OUTSIDE RECORDS SUMMARY | 2025-02-11 18:43 | XMS_ITS | Encounter Summary ---
Author Organization [facility] Address [address] [place] [address] Care Team Providers Care Recreation Engineer Name Role Phone Dasha Conway [facility] Primary Care Provider +1- [phone] Encounter Details Date Type Department Care Team (Late st Contact Info) Description 05/17/2022 BakedCodehart Message Enc [facility] Medical Group Multispecialty Care - [place] [address] [address] [address] [place] [address] [place] [address] [place] [address] [address] [place] [address] B12 injections Social History Tobacco [...] Sex Assigned at Female 01/08/2021 9:43 AM MECHANICAL DETAILER Legal Sex Female 5:13 PM CDT Gender Identity Female 01/08/2021 9:43 AM MECHANICAL DETAILER Sexual Orientation Straight 01/08/2021 9: 43 AM MECHANICAL DETAILER COVID-19 Exposure Response Date Recorded In the last 10 days, have yo michael been in contact with someone who was confirmed or suspected to have Coronavirus/COVID-19? No / Unsure 05/17/2022 8:13 AM CDT documented as of this encounter Functional Status * RETIRED Are you deaf or do you have serious difficulty hearing Answer Date of Assessment Author Status No 01/29/2022 10:15 PM MECHANICAL DETAILER Acti ve * RETIRED Are you blind or do you have serious difficulty seeing, even when wearing glasses? Answer Date of Assessment Author Status No 01/29/2022 10:15 PM MECHANICAL DETAILER Acti ve * Do you have serious [...] Rule Out 10/06/2022 10/06/2022 10/06/2022 1:21 PM MECHANICAL DETAILER COVID-19 Rule Out 10/06/2022 10/06/2022 10/07/2022 3:34 PM MECHANICAL DETAILER COVID-19 Rule Out 09/14/2023 09/14/2023 09/14/2023 3:48 PM CDT COVID-19 Rule Out 11/02/2024 11/02/2024 11/02/2024 4:03 PM MECHANICAL DETAILER Assessment Noted Time PHQ-9 Depression Total Score: 4 05/12/20 3:34 PM CDT documented as of this encounter Care Teams Recreation Engineer Relationship Specialty Start Date End Date Dasha Conway FNP-STEPH [address] [place], [place] [id number] PCP - General 11/02/24 documented as of this encounter
--- OUTSIDE RECORDS SUMMARY | 2025-02-11 18:43 | XMS_ITS | Encounter Summary ---
Author Organization [facility] - [facility] Address [address] [place] [address] Care Team Providers Care Relocation Coordinator Name Role Phone Dasha Conway [facility] Primary Care Provider +1- [phone] Encounter Details Date Type Department Care Team (Late st Contact Info) Description 01/25/2022 Where I've Beenhart Message Enc [facility] Medical Group Multispecialty Care - [place] [address] [address] [place] [address] [place] [address] [place] [address] 157 [place] [address] Uti? Social History Tobacco Use [...] Sex Assigned at Female 01/08/2021 9:43 AM TRENCHING MACHINE OPERATOR Legal Sex Female 5:13 PM CDT Gender Identity Female 01/08/2021 9:43 AM TRENCHING MACHINE OPERATOR Sexual Orientation Straight 01/08/2021 9: 43 AM TRENCHING MACHINE OPERATOR COVID-19 Exposure Response Date Recorded In the last 10 days, have asif rodriguez been in contact with someone who was confirmed or suspected to have Coronavirus/COVID-19? No / Unsure 01/26/2022 4:23 AM TRENCHING MACHINE OPERATOR documented as of this encounter [...] Rule Out 10/06/2022 10/06/2022 10/06/2022 1:21 PM TRENCHING MACHINE OPERATOR COVID-19 Rule Out 10/06/2022 10/06/2022 10/07/2022 3:34 PM TRENCHING MACHINE OPERATOR COVID-19 Rule Out 09/14/2023 09/14/2023 09/14/2023 3:48 PM CDT COVID-19 Rule Out 11/02/2024 11/02/2024 11/02/2024 4:03 PM TRENCHING MACHINE OPERATOR Assessment Noted Time PHQ-9 Depression Total Score: 15 11/03/2 021 11:10 AM TRENCHING MACHINE OPERATOR documented as of this encounter Care Teams Relocation Coordinator Relationship Specialty Start Date End Date Dasha Conway, BARK SKINNER- [address] [place] [address] PCP - General 11/02/24 documented as of this encounter
--- OUTSIDE RECORDS SUMMARY | 2025-02-11 18:43 | XMS_ITS | Encounter Summary ---
Author Organization [facility] - [facility] Address [address] [place] [address] Care Team Providers Care Lead Software Test Engineer Name Role Phone Dasha Conway [facility] Primary Care Provider +1- [phone] Encounter Details Date Type Department Care Team (Latest Contact Info) Description 02/03/2022 Medprext Message Enc [facility] Medical Group Multispecialty Care - [place] [address] [address] [address] [place] [address] [place] [address] [place] [address] [address] [place] [address] Zofran and fosfomycin Social History [...] Sex Assigned at Female 01/08/2021 9:43 AM BOAT CLEANER Legal Sex Female 5:13 PM CDT Gender Identity Female 01/08/2021 9:43 AM BOAT CLEANER Sexual Orientation Straight 01/08/2021 9: 43 AM BOAT CLEANER COVID-19 Exposure Response Date Recorded In the last 10 days, have asif rodriguez been in contact with someone who was confirmed or suspected to have Coronavirus/COVID-19? No / Unsure 02/02/2022 10:59 AM CDT documented as of this encounter Functional Status * RETIRED Are you deaf or do you have serious difficulty hearing Answer Date of Assessment Author Status No 01/29/2022 10:15 PM BOAT CLEANER Acti ve * RETIRED Are you blind or do you have serious difficulty seeing, even when wearing glasses? Answer Date of Assessment Author Status No 01/29/2022 10:15 PM BOAT CLEANER Acti ve * Do you have serious [...] Rule Out 10/06/2022 10/06/2022 10/06/2022 1:21 PM BOAT CLEANER COVID-19 Rule Out 10/06/2022 10/06/2022 10/07/2022 3:34 PM BOAT CLEANER COVID-19 Rule Out 09/14/2023 09/14/2023 09/14/2023 3:48 PM CDT COVID-19 Rule Out 11/02/2024 11/02/202411/02/2024 4:03 PM BOAT CLEANER Assessment Noted Time PHQ-9 Depression Total Score: 15 021 11:10 AM BOAT CLEANER documented as of this encounter Care Teams Lead Software Test Engineer Relationship Specialty Start Date End Date Dasha Conway, BUYER INTERN- [address] [place] [address] PCP - General 11/02/24 documented as of this encounter
--- OUTSIDE RECORDS SUMMARY | 2025-02-11 18:43 | XMS_ITS | Encounter Summary ---
Author Organization [facility] - [facility] Address [address] [place] [address] Care Team Providers Care Warehouse Team Leader Name Role Phone Dasha Conway [facility] Primary Care Provider +1- [phone] Encounter Details Date Type Department Care Team (Latest Contact Info) Description 02/11/2022 Valor Medicalhart Message Enc [facility] Medical Group Multispecialty Care - [place] [address] [address] [address] [place] [address] [place] [address] [place] [address] [address] [place] [address] Urine culture results Social History [...] Sex Assigned at Female 01/08/2021 9:43 AM SCIENTIFIC INFORMATICS PROJECT LEADER Legal Sex Female 5:13 PM CDT Gender Identity Female 01/08/2021 9:43 AM SCIENTIFIC INFORMATICS PROJECT LEADER Sexual Orientation Straight 01/08/2021 9: 43 AM SCIENTIFIC INFORMATICS PROJECT LEADER COVID-19 Exposure Response Date Recorded In the last 10 days, have asif rodriguez been in contact with someone who was confirmed or suspected to have Coronavirus/COVID-19? No / Unsure 02/10/2022 10:06 AM CDT documented as of this encounter Functional Status * RETIRED Are you deaf or do you have serious difficulty hearing Answer Date of Assessment Author Status No 01/29/2022 10:15 PM SCIENTIFIC INFORMATICS PROJECT LEADER Acti ve * RETIRED Are you blind or do you have serious difficulty seeing, even when wearing glasses? Answer Date of Assessment Author Status No 01/29/2022 10:15 PM SCIENTIFIC INFORMATICS PROJECT LEADER Acti ve * Do you have serious [...] Rule Out 10/06/2022 10/06/2022 10/06/2022 1:21 PM SCIENTIFIC INFORMATICS PROJECT LEADER COVID-19 Rule Out 10/06/2022 10/06/2022 10/07/2022 3:34 PM SCIENTIFIC INFORMATICS PROJECT LEADER COVID-19 Rule Out 09/14/2023 09/14/2023 09/14/2023 3:48 PM CDT COVID-19 Rule Out 11/02/2024 11/02/2024 11/02/2024 4:03 PM SCIENTIFIC INFORMATICS PROJECT LEADER Assessment Noted Time PHQ-9 Depression Total Score: 15 021 11:10 AM SCIENTIFIC INFORMATICS PROJECT LEADER documented as of this encounter Care Teams Warehouse Team Leader Relationship Specialty Start Date End Date Dasha Conway, CASH POSTING CLERK- [address] [place] [address] PCP - General 11/02/24 documented as of this encounter
--- OUTSIDE RECORDS SUMMARY | 2025-02-11 18:43 | XMS_ITS | Encounter Summary ---
Author Organization [facility] - [facility] Address [address] [place] [address] Care Team Providers Care Associate Professor Of Anthropology Name Role Phone Dasha Conway [facility] Primary Care Provider +1- [phone] Encounter Details Date Type Department Care Team (Latest Contact Info) Description 10/26/2021 KnexxLocalt Message Enc [facility] Medical Group Multispecialty Care - [place] [address] [address] [place] [address] [place] [address] [place] [address] [address] [place] [address] Medication question Social History Tobacco [...] Sex Assigned at Female 01/08/2021 9:43 AM REGISTRATION CLERK Legal Sex Female 5:13 PM CDT Gender Identity Female 01/08/2021 9:43 AM REGISTRATION CLERK Sexual Orientation Straight 01/08/2021 9: 43 AM REGISTRATION CLERK COVID-19 Exposure Response Date Recorded In the last month, have you been in contact with someone who was confirmed or suspected to have Coronavirus / COVID-19? No / Unsure 10/22/2021 9:17 AM REGISTRATION CLERK documented as of this encounter Plan of Treatment Not on file documented as of this encounter Visit Diagnoses Not on filedocumented in this encounter Additional Health Concerns Infection Onset Date Last Indicated Resolved Time 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 06/30/2017 COVID-19 Rule Out 01/15/2022 01/15/2022 01/20/2022 10:53 AM REGISTRATION CLERK COVID-19 Rule Out 04/21/2022 04/21/2022 04/21/2022 11:42 AM CDT COVID-19 Rule Out 04/21/2022 04/21/2022 04/26/2022 7:02 AM CDT COVID-19 Rule Out 10/06/2022 10/06/2022 10/06/2022 1:21 PM REGISTRATION CLERK COVID-19 Rule Out 10/06/2022 10/06/2022 10/07/2022 3:34 PM REGISTRATION CLERK COVID-19 Rule Out 09/14/2023 09/14/2023 09/14/2023 3:48 PM CDT COVID-19 Rule Out 11/02/2024 11/02/2024 11/02/2024 4:03 PM REGISTRATION CLERK Assessment Noted Time PHQ-9 Depression Total Score: 021 9:18 AM CDT documented as of this encounter Care Teams Associate Professor Of Anthropology Relationship Specialty Start Date End Date Dasha Conway FNP- [address] [place] [address] PCP - General 11/02/24 documented as of this encounter
--- OUTSIDE RECORDS SUMMARY | 2025-02-11 18:43 | XMS_ITS | Encounter Summary ---
Author Organization [facility] - [facility] Address [address] [place] [address] Care Team Providers Care Processes Chemical Design Engineer Name Role Phone Dasha Conway [facility] Primary Care Provider [phone]- [phone] Encounter Details Date Type Department Care Team (Late st Contact Info) Description 02/07/2022 [employer] Message Enc [facility] Medical Group Multispecialty Care - [address] [address] [address] [place] [address] [place] [address] [place] [address] [address] [place] [address] Apology Social History Tobacco Use [...] Sex Assigned at Female 01/08/2021 9:43 AM FARM OPERATIONS TECHNICAL DIRECTOR Legal Sex Female 5:13 PM CDT Gender Identity Female 01/08/2021 9:43 AM FARM OPERATIONS TECHNICAL DIRECTOR Sexual Orientation Straight 01/08/2021 9: 43 AM FARM OPERATIONS TECHNICAL DIRECTOR COVID-19 Exposure Response Date Recorded In the last 10 days, have asif rodriguez been in contact with someone who was confirmed or suspected to have Coronavirus/COVID-19? No / Unsure 02/10/2022 10:06 AM CDT documented as of this encounter Functional Status * RETIRED Are you deaf or do you have serious difficulty hearing Answer Date of Assessment Author Status No 01/29/2022 10:15 PM FARM OPERATIONS TECHNICAL DIRECTOR Acti ve * RETIRED Are you blind or do you have serious difficulty seeing, even when wearing glasses? Answer Date of Assessment Author Status No 01/29/2022 10:15 PM FARM OPERATIONS TECHNICAL DIRECTOR Acti ve * Do you have serious [...] Rule Out 10/06/2022 10/06/2022 10/06/2022 1:21 PM FARM OPERATIONS TECHNICAL DIRECTOR COVID-19 Rule Out 10/06/2022 10/06/2022 10/07/2022 3:34 PM FARM OPERATIONS TECHNICAL DIRECTOR COVID-19 Rule Out 09/14/2023 09/14/2023 09/14/2023 3:48 PM CDT COVID-19 Rule Out 11/02/2024 11/02/2024 11/02/2024 4:03 PM FARM OPERATIONS TECHNICAL DIRECTOR Assessment Noted Time PHQ-9 Depression Total Score: 15 021 11:10 AM FARM OPERATIONS TECHNICAL DIRECTOR documented as of this encounter Care Teams Processes Chemical Design Engineer Relationship Specialty Start Date End Date Dasha Conway, MALL MANAGER- [address] [place] [id number] PCP - General 11/02/24 documented as of this encounter
--- OUTSIDE RECORDS SUMMARY | 2025-02-11 18:43 | XMS_ITS | Encounter Summary ---
Author Organization [facility] Address [address] [place] [address] Care Team Providers Care Wireless Cellular Technician Name Role Phone Dasha Conway [facility] Primary Care Provider [phone]- [phone] Encounter Details Date Type Department Care Team (Latest Contact Info) Description 05/07/2021 [employer] Message Enc [facility] Medical Group Multispecialty Care - [address] [place] [address] [employer]t, [facility] Provider surgical clearance Social History Tobacco [...] Sex Assigned at Female 01/08/2021 9:43 AM PREMIX CONCRETE BATCHER Legal Sex Female 5:13 PM CDT Gender Identity Female 01/08/2021 9:43 AM PREMIX CONCRETE BATCHER Sexual Orientation Straight 01/08/2021 9: 43 AM PREMIX CONCRETE BATCHER COVID-19 Exposure Response Date Recorded In the [...] Rule Out 10/23/2021 10/23/2021 10/23/2021 9:25 AM PREMIX CONCRETE BATCHER COVID-19 Rule Out 10/23/2021 10/23/2021 10/24/2021 12:21 AM PREMIX CONCRETE BATCHER COVID-19 Rule Out 01/15/2022 01/15/2022 01/20/2022 10:53 AM PREMIX CONCRETE BATCHER COVID-19 Rule Out 04/21/2022 04/21/2022 04/21/2022 11:42 AM CDT COVID-19 Rule Out 04/21/2022 04/21/2022 04/26/2022 7:02 AM CDT COVID-19 Rule Out 10/06/2022 10/06/2022 10/06/2022 1:21 PM PREMIX CONCRETE BATCHER COVID-19 Rule Out 10/06/2022 10/06/2022 10/07/2022 3:34 PM PREMIX CONCRETE BATCHER COVID-19 Rule Out 09/14/2023 09/14/2023 09/14/2023 3:48 PM CDT COVID-19 Rule Out 11/02/2024 11/02/2024 11/02/2024 4:03 PM PREMIX CONCRETE BATCHER Assessment Noted Time PHQ-9 Depression Total Score: 22 021 9:18 AM CDT documented as of this encounter Care Teams Wireless Cellular Technician Relationship Specialty Start Date End Date Dasha Conway, ROAD OILER- [address] [place] [id number] PCP - General 11/02/24 documented as of this encounter
--- OUTSIDE RECORDS SUMMARY | 2025-02-11 18:43 | XMS_ITS | Encounter Summary ---
Author Organization [facility] - [facility] Address [address] [place] [address] Care Team Providers Care Cook Helper Fruit Name Role Phone Dasha Conway [facility] Primary Care Provider [phone]- [phone] Encounter Details Date Type Department Care Team (Late st Contact Info) Description 08/14/2021 Arden Reedhart Message Enc [facility] Medical Group Multispecialty Care - [address] [address] [address] [place] [address] [place] [address] [place] [address] [address] [place] [address] A1C results Social History Tobacco [...] Sex Assigned at Female 01/08/2021 9:43 AM LOAF COUNTER Legal Sex Female 5:13 PM CDT Gender Identity Female 01/08/2021 9:43 AM LOAF COUNTER Sexual Orientation Straight 01/08/2021 9: 43 AM LOAF COUNTER COVID-19 Exposure Response Date Recorded In the [...] Rule Out 10/23/2021 10/23/2021 10/23/2021 9:25 AM LOAF COUNTER COVID-19 Rule Out 10/23/2021 10/23/2021 10/24/2021 12:21 AM LOAF COUNTER COVID-19 Rule Out 01/15/2022 01/15/2022 01/20/2022 10:53 AM LOAF COUNTER COVID-19 Rule Out 04/21/2022 04/21/2022 04/21/2022 11:42 AM CDT COVID-19 Rule Out 04/21/2022 04/21/2022 04/26/2022 7:02 AM CDT COVID-19 Rule Out 10/06/2022 10/06/2022 10/06/2022 1:21 PM LOAF COUNTER COVID-19 Rule Out 10/06/2022 10/06/2022 10/07/2022 3:34 PM LOAF COUNTER COVID-19 Rule Out 09/14/2023 09/14/2023 09/14/2023 3:48 PM CDT COVID-19 Rule Out 11/02/2024 11/02/2024 11/02/2024 4:03 PM LOAF COUNTER Assessment Noted Time PHQ-9 Depression Total Score: 22 05 021 9:18 AM CDT documented as of this encounter Care Teams Cook Helper Fruit Relationship Specialty Start Date End Date Dasha Conway FNP-STEPH [address] [place] [id number] PCP - General 11/02/24 documented as of this encounter
--- OUTSIDE RECORDS SUMMARY | 2025-02-11 18:44 | XMS_ITS | Encounter Summary ---
Author Organization [facility] - [facility] Address [address] [place] [address] Care Team Providers Care Realty Loan Specialist Name Role Phone Dasha Conway [facility] Primary Care Provider [phone]- [phone] Encounter Details Date Type Department Care Team (Latest Contact Info) Description 07/25/2022 H[employer] Message Enc [facility] Medical Group Multispecialty Care - [address] [address] [address] [place] [address] [place] [address] [place] [address] [address] [place] [address] Psychiatric meds Social History Tobacco [...] Assigned at Female 01/08/2021 9:43 AM MEDICAL ANTHROPOLOGIST Legal Sex Female 5:13 PM CDT Gender Identity Female 01/08/2021 9:43 AM MEDICAL ANTHROPOLOGIST Sexual Orientation Straight 01/08/2021 9: 43 AM MEDICAL ANTHROPOLOGIST COVID-19 Exposure Response Date Recorded In the [...] Out 10/06/2022 10/06/2022 10/06/2022 1:21 PM MEDICAL ANTHROPOLOGIST COVID-19 Rule Out 10/06/2022 10/06/2022 10/07/2022 3:34 PM MEDICAL ANTHROPOLOGIST COVID-19 Rule Out 09/14/2023 09/14/2023 09/14/2023 3:48 PM CDT COVID-19 Rule Out 11/02/2024 11/02/2024 11/02/2024 4:03 PM MEDICAL ANTHROPOLOGIST Assessment Noted Time PHQ-9 Depression Total Score: 4 05/12/20 22 3:34 PM CDT documented as of this encounter Care Teams Realty Loan Specialist Relationship Specialty Start Date End Date Dasha Conway, [facility]- [address] [place] [id number] PCP - General 11/02/24 documented as of this encounter
--- OUTSIDE RECORDS SUMMARY | 2025-02-11 18:44 | XMS_ITS | Data Portability ---
Author Organization [facility] CATHERINEQuan Address [address] [facility] [place] [address] Assessment Encounter Date Assessment Date Assessment LastModified by Organization Details LastModified Time 12/04/2015 12/04/2015 Pt is to let us know as soon as she gets insurance so that we can proceed with PT referral. [email or web address] Not available 12/04/2015 18:31:31 Plan of Treatment Reminders Order Date Submit Date Provider Last Modified By Organization Details Last Modified Time Details Appointments None recorde d. Lab HIV 1+2 AB + HIV 1 p24 Ag, qualita tive immunoa ssay, serum 2016 017 [facility], [address] [facility] [address], [place], [address], 7 13:11:36 hepatit is C Ab, signal- to-cuto ff, serum or plasma 2016 017 [facility], [address] [facility] [address], [place], [address], 7 13:11:37 CY (antinu clear antibod ies) screen, serum 2016 017 [facility], [address] [facility] [address], [place], [address], 7 13:11:37 rf (rheuma toid factor) , serum 2016 017 [facility], [address] [facility] [address], [place], [address], 7 13:11:36 pap, IG + HPV, cervica l 2015 016 [facility], [address] [facility], [address], [address], 6 15:16:34 CBC 2015 016 [facility], [address] [place] [address], [address], [place], [address], 6 07:15:18 lipid panel, serum 2015 016 [facility], [address] [place] [address], [address], [place], [address], 6 07:15:20 CMP, serum or plasma 2015 016 [facility], [address] [place] [address], [facility] [address], [place], [address], 6 07:15:19 TSH, serum or plasma 2015 016 [facility], [address] [place] [address], [address], [place], [address], 6 07:15:20 Referral physica l therapy hip referra l 2015 016 [facility], [address] [place], [address], 6 14:44:[address] referra l 2015 016 [facility], [address] [place], [address], 7 05:01:46 Procedures None recorde d. Surgeries None recorde d. Imaging XR, hip, unilate ral 2016 017 [email or web address] [address] [place], [address], 7 18:29:32 XR, hand 2016 017 [facility] ([facility] Scheduling), [address] [place], [address], 7 23:35:07 x-ray, cervica l spine 2015 016 [email or web address] Not available 6 09:37:24 Medication Orders Medrol (Philip) 4 mg tablets in a dose pack 2016 017 [facility][id number], [address], [place], [id number], 7 14:37:36 Medrol (Philip) 4 mg tablets in a dose pack 2015 016 [facility] #[id number], [address], [id number], 6 14:10:25 methoca rbamol 500 mg tablet 2015 016 [facility] #[id number], [address], [place], [id number], 6 14:10:25 bupropi on HCl 150 mg tablet, 12 hr sustain ed-rele ase(smo siddhartha deterre nt) 2015 016 [facility] #[id number], [address], [place], [place], [id number], 6 11:36:38 prednis one 20 mg tablet 2015 016 [facility] #[id number], [address], [place], [place], [id number], 6 11:36:38 Tylenol -Codein e #3 300 mg-30 mg tablet 2015 016 [facility], [address] [place] [address], [address], 6 11:54:11 Medrol (Philip) 4 mg tablets in a dose pack 2015 016 [facility], [address] [place] [address], [address], 6 11:54:12 Patient TargetsNo targets recorded. Patient Instructions Encounter Date Encounter Id Patient Instructions Last Modified By Organization Details Last Modified Time 12/04/2015 [id number] neck strain: car e instructions Not available 12/04/2015 18:31:31 06/18/2016 [id number] RTC 2 weeks - WW E and f/u on labs [email or web address] Not available 06/18/2016 12:17:09 07/02/2016 [id number] Will determine f/u based on pap smear results [email or web address] Not available 07/02/2016 11:48:05 08/13/2016 [id number] Patient declined flu vaccine eewig Not available 08/13/2016 14:10:25 03/15/2017 [id number] WIll determine f/u based on labs and xrays eewig Not available 03/15/2017 15:47:50 Reason for Referral Referring Physician: Omar Rader, Family Medicine, Encounter Date: 06/18/2016 Referring Physician: Omar Rader Family [facility], Encounter Date: 06/18/2016 Results Created Date Observation Date Name Description Value Unit Range Abnormal Flag Note LastModifiedBy Organization Detail LastModifiedTime 11/20/20 15 11/21/2015 CBC WBC 7.7 x10e3 /uL 3.4-10 .8 Not Available [facility] ([facility]) [address] [facility], [place], [address], 11/21/2015 06:09:29 11/20/20 15 11/21/2015 CBC RBC 5.13 x10e6 /uL 3.77-5 .28 Not Available [facility] ([facility]) [address] [place], [address], 11/21/2015 06:09:29 11/20/20 15 11/21/2015 CBC hemoglobin 12.8 g/dL 11.1-1 5.9 Not Available [facility] ([facility]) [address] [place], [address], 11/21/2015 06:09:29 11/20/2011/21/2015 CBC hematocrit 38.1 % 34.0-4 6.6 Not Available [facility] ([facility]) [address] [place], [address], 11/21/2015 06:09:29 11/20/20 15 11/21/2015 CBC MCV 74 fL 79-97 below low normal Not Available [facility] ([facility]) [address] [place], [address], 11/21/2015 06:09:29 11/20/20 15 11/21/2015 CBC MCH 25.0 pg 26.6-3 3.0 below low normal Not Available [facility] ([facility]) [address] [place], [address], 11/21/2015 06:09:29 11/20/2011/21/2015 CBC MCHC 33.6 g/dL 31.5-3 5.7 Not Available [facility] ([facility]) [address] [place], [address], 11/21/2015 06:09:29 11/20/2011/21/2015 CBC RDW 15.8 % 12.3-1 5.4 above high normal Not Available [facility] ([facility]) [address] [place], [address], 11/21/2015 06:09:29 11/20/20 15 11/21/2015 CBC platelets 361 x10e3 /uL 150-37 9 Not Available [facility] ([facility]) [address] [place], [address], 11/21/2015 06:09:29 11/20/20 15 11/21/2015 CBC neutrophils 67 % Not Avai lable [facility] ([facility]) [address] [place], [address], 11/21/2015 06:09:29 11/20/20 15 11/21/2015 CBC lymphs 23 % Not Available [facility] ([facility]) [address] [place], [address], 11/21/2015 06:09:29 11/20/20 15 11/21/2015 CBC monocytes 7 % Not Availa ble [facility] ([facility]) [address] [place], [address], 11/21/2015 06:09:29 11/20/20 15 11/21/2015 CBC eos 2 % Not Available [facility] ([facility]) [address] [place], [address], 11/21/2015 06:09:29 11/20/20 15 11/21/2015 CBC basos 1 % Not Available [facility] ([facility]) [address] [place], [address], 11/21/2015 06:09:29 11/20/2011/21/2015 CBC immature cells TARIFF COUNSEL Not Available [facility] ([facility]) [address] [place], [address], 11/21/2015 06:09:29 11/20/20 15 11/21/2015 CBC neutrophils (absolute) 5.2 x10e3 /uL 1.4-7. 0 Not Available [facility] ([facility]) [address] [place], [address], 11/21/2015 06:09:29 11/20/20 15 11/21/2015 CBC lymphs (absolute) 1.8 x10e3 /uL 0.7-3. 1 Not Available [facility] ([facility]) [address] [facility], [place], [address], 11/21/2015 06:09:29 11/20/20 15 11/21/2015 CBC monocytes(ab solute) 0.5 x10e3 /uL 0.1-0. 9 Not Available [facility] ([facility]) [address] [facility], [place], [address], 11/21/2015 06:09:29 11/20/2011/21/2015 CBC eos (absolute) 0.1 x10e3 /uL 0.0-0. 4 Not Available [facility] ([facility]) [address] [facility], [place], [address], 11/21/2015 06:09:29 11/20/2011/21/2015 CBC baso (absolute) 0.0 x10e3 /uL 0.0-0. 2 Not Available [facility] ([facility]) [address] [facility], [place], [address], 11/21/2015 06:09:29 11/20/20 15 11/21/2015 CBC immature granulocytes 0 % Not Available [facility] ([facility]) [address] [facility], [place], [address], 11/21/2015 06:09:29 11/20/2011/21/2015 CBC immature grans (abs) 0.0 x10e3 /uL 0.0-0. 1 Not Available [facility] ([facility]) [address] [facility], [place], [address], 11/21/2015 06:09:29 11/20/20 15 11/21/2015 CBC NRBC TARIFF COUNSEL Not Available [facility] ([facility]) [address] [facility], [place], [address], 11/21/2015 06:09:29 11/20/2011/21/2015 CBC hematology comments: TARIFF COUNSEL Not Available [facility] ([facility]) [address] [place], [address], 11/21/2015 06:09:29 11/20/20 15 11/21/2015 CMP, serum or plasm a glucose, serum 83 mg/dL 65-99 Not Available [facility] ([facility]) [address] [place], [address], 11/21/2015 06:09:30 11/20/2011/21/2015 CMP, serum or plasm a BUN 12 mg/dL 6-20 Not Available [facility] ([facility]) [address] [place], [address], 11/21/2015 06:09:30 11/20/2011/21/2015 CMP, serum or plasm a creatinine, serum 0.91 mg/dL 0.57-1 .00 Not Available [facility] ([facility]) [address] [place], [address], 11/21/2015 06:09:30 11/20/2011/21/2015 CMP, serum or plasm a eGFR if nonafricn AM 82 mL/mi n/1.7 3 >59 Not Available [facility] ([facility]) [address] [place], [address], 11/21/2015 06:09:30 11/20/2011/21/2015 CMP, serum or plasm a eGFR if africn AM 95 mL/mi n/1.7 3 >59 Not Available [facility] ([facility]) [address] [place], [address], 11/21/2015 06:09:30 11/20/20 15 11/21/2015 CMP, serum or plasm a BUN/creatini ne ratio 13 8-20 Not Available [facility] ([facility] [address] [facility], [address], 11/21/2015 06:09:30 11/20/2011/21/2015 CMP, serum or plasm a sodium, serum 139 mmol/ L 134-14 4 Not Available [facility] ([facility]) [address] [place], [address], 11/21/2015 06:09:30 11/20/2011/21/2015 CMP, serum or plasm a potassium, serum 4.5 mmol/ L 3.5-5. 2 Not Available [facility] ([facility]) [address] [facility] [place], [address], 11/21/2015 06:09:30 11/20/2011/21/2015 CMP, serum or plasm a chloride, serum 100 mmol/ L 97-108 Not Available [facility] ([facility]) [address] [facility] [facility] [place], [address], 11/21/2015 06:09:30 11/20/2011/21/2015 CMP, serum or plasm a carbon dioxide, total 23 mmol/ L 18-29 Not Available [facility] ([facility]) [address] [facility] [place], [address], 11/21/2015 06:09:30 11/20/2011/21/2015 CMP, serum or plasm a calcium, serum 10.0 mg/dL 8.7-10 .2 Not Available [facility] ([facility]) [address] [facility] [place], [address], 11/21/2015 06:09:30 11/20/2011/21/2015 CMP, serum or plasm a protein, total, serum 7.5 g/dL 6.0-8. 5 Not Available [facility] ([facility]) [address] [place], [place] [address], [address], 11/21/2015 06:09:30 11/20/2011/21/2015 CMP, serum or plasm a albumin, serum 4.6 g/dL 3.5-5. 5 Not Available [facility] ([facility]) [address] [facility] [place], [address], 11/21/2015 06:09:30 11/20/2011/21/2015 CMP, serum or plasm a globulin, total 2.9 g/dL 1.5-4. 5 Not Available [facility] ([facility]) [address] [facility] [place], [address], 11/21/2015 06:09:30 11/20/2011/21/2015 CMP, serum or plasm a A/G ratio 1.6 1.1-2. 5 Not Available [facility] ([facility]) [address] [facility] [place], [address], 11/21/2015 06:09:30 11/20/2011/21/2015 CMP, serum or plasm a bilirubin, total 0.2 mg/dL 0.0-1. 2 Not Available [facility] ([facility]) [address] [facility] [place], [address], 11/21/2015 06:09:30 11/20/2011/21/2015 CMP, serum or plasm a alkaline phosphatase, S 81 IU/L 39-117 Not Available [facility] ([facility]) [address] [facility] [place], [address], 11/21/2015 06:09:30 11/20/2011/21/2015 CMP, serum or plasm a AST (SGOT) 17 IU/L 0-40 Not Available [facility] ([facility]) [address] [facility] [place], [address], 11/21/2015 06:09:30 11/20/2011/21/2015 CMP, serum or plasm a ALT (SGPT) 12 IU/L 0-32 Not Available [facility] ([facility]) [address] [place], [address], 11/21/2015 06:09:30 11/20/20 15 11/21/2015 lipid panel , serum cholesterol, total 253 mg/dL 100-19 9 above high normal Not Available [facility] ([facility]) [address] [facility] [place], [address], 11/21/2015 06:09:30 11/20/20 15 11/21/2015 lipid panel , serum triglyceride s 102 mg/dL 0-149 Not Available [facility] ([facility]) [address] [facility] [place], [address], 11/21/2015 06:09:30 11/20/2011/21/2015 lipid panel , serum HDL cholesterol 52 mg/dL >39 ACCOR DING TO ATP-I II GUIDE LINES , HDL-C >59 MG/DL IS CONSI DERED A NEGAT DAVE RISK FACTO R FOR CHD. Not Available [facility] ([facility]) [address] [facility], [place], [address], 11/21/2015 06:09:30 11/20/2011/21/2015 lipid panel , serum VLDL cholesterol mary 20 mg/dL 5-40 Not Available [facility] ([facility]) [address] [facility] [place], [address], 11/21/2015 06:09:30 11/20/20 15 11/21/2015 lipid panel , serum LDL cholesterol calc 181 mg/dL 0-99 above high normal Not Available [facility] ([facility]) [address] [facility] [place], [address], 11/21/2015 06:09:30 11/20/2011/21/2015 lipid panel , serum comment: TARIFF COUNSEL Not Available [facility] ([facility]) [address] [facility] [place], [address], 11/21/2015 06:09:30 11/20/20 15 11/21/2015 TSH, serum or plasm a TSH 5.130 uIU/m L 0.450- 4.500 above high normal Not Available [facility] ([facility]) [address] [facility] [place], [address], 11/21/2015 06:09:31 06/24/20 16 06/25/2016 CBC WBC 9.0 x10e3 /uL 3.4-10 .8 Not Available [facility] ([facility]) [address] [facility] [place], [address], 06/25/2016 07:15:18 06/24/2006/25/2016 CBC RBC 4.47 x10e6 /uL 3.77-5 .28 Not Available [facility] ([facility]) [address] [facility] [place], [address], 06/25/2016 07:15:18 06/24/20 16 06/25/2016 CBC hemoglobin 12.0 g/dL 11.1-1 5.9 Not Available [facility] ([facility]) [address] [facility], [place], [address], 06/25/2016 07:15:18 06/24/2006/25/2016 CBC hematocrit 36.3 % 34.0-4 6.6 Not Available [facility] ([facility]) [address] [facility] [place], [address], 06/25/2016 07:15:18 06/24/2006/25/2016 CBC MCV 81 fL 79-97 Not Available [facility] ([facility]) [address] [facility] [place], [address], 06/25/2016 07:15:18 06/24/2006/25/2016 CBC MCH 26.8 pg 26.6-3 3.0 Not Available [facility] ([facility]) [address] [facility] [place], [address], 06/25/2016 07:15:18 06/24/2006/25/2016 CBC MCHC 33.1 g/dL 31.5-3 5.7 Not Available [facility] ([facility]) [address] [facility] [place], [address], 06/25/2016 07:15:18 06/24/20 16 06/25/2016 CBC RDW 14.9 % 12.3-1 5.4 Not Available [facility] ([facility]) [address] [place], [address], 06/25/2016 07:15:18 06/24/20 16 06/25/2016 CBC platelets 296 x10e3 /uL 150-37 9 Not Available [facility] ([facility]) [address] [facility] [place], [address], 06/25/2016 07:15:18 06/24/20 16 06/25/2016 CBC neutrophils 73 % Not Avai lable [facility] ([facility]) [address] [facility] [place], [address], 06/25/2016 07:15:18 06/24/2006/25/2016 CBC lymphs 21 % Not Available [facility] ([facility]) [address] [facility] [place], [address], 06/25/2016 07:15:18 06/24/20 16 06/25/2016 CBC monocytes 4 % Not Availa ble [facility] ([facility]) [address] [facility] [place], [address], 06/25/2016 07:15:18 06/24/20 16 06/25/2016 CBC eos 2 % Not Available [facility] ([place] [facility]) [address] [facility] [place], [address], 06/25/2016 07:15:18 06/24/20 16 06/25/2016 CBC basos 0 % Not Available [facility] ([place] [facility]) [address] [facility] [place], [address], 06/25/2016 07:15:18 06/24/20 16 06/25/2016 CBC immature cells TARIFF COUNSEL Not Available [facility] ([facility]) [address] [facility], [place], [address], 06/25/2016 07:15:18 06/24/20 16 06/25/2016 CBC neutrophils (absolute) 6.5 x10e3 /uL 1.4-7. 0 Not Available [facility] ([facility]) [address] [facility], [place], [address], 06/25/2016 07:15:18 06/24/2006/25/2016 CBC lymphs (absolute) 1.9 x10e3 /uL 0.7-3. 1 Not Available [facility] ([facility]) [address] [facility], [place], [address], 06/25/2016 07:15:18 06/24/2006/25/2016 CBC monocytes(ab solute) 0.4 x10e3 /uL 0.1-0. 9 Not Available [facility] ([facility]) [address] [facility], [place], [address], 06/25/2016 07:15:18 06/24/2006/25/2016 CBC eos (absolute) 0.2 x10e3 /uL 0.0-0. 4 Not Available [facility] ([facility]) [address] [facility], [place], [address], 06/25/2016 07:15:18 06/24/2006/25/2016 CBC baso (absolute) 0.0 x10e3 /uL 0.0-0. 2 Not Available [facility] ([facility]) [address] [facility], [place], [address], 06/25/2016 07:15:18 06/24/2006/25/2016 CBC immature granulocytes 0 % Not Available [facility] ([facility]) [address] [facility], [place], [address], 06/25/2016 07:15:18 06/24/20 16 06/25/2016 CBC immature grans (abs) 0.0 x10e3 /uL 0.0-0. 1 Not Available [facility] ([facility]) [address] [place], [address], 06/25/2016 07:15:18 06/24/20 16 06/25/2016 CBC NRBC TARIFF COUNSEL Not Available [facility] ([facility]) [address] [place], [address], 06/25/2016 07:15:18 06/24/20 16 06/25/2016 CBC hematology comments: TARIFF COUNSEL Not Available [facility] ([facility]) [address] [place], [address], 06/25/2016 07:15:18 06/24/20 16 06/25/2016 CMP, serum or plasm a glucose, serum 82 mg/dL 65-99 Not Available [facility] ([facility]) [address] [place], [address], 06/25/2016 07:15:19 06/24/20 16 06/25/2016 CMP, serum or plasm a BUN 13 mg/dL 6-20 Not Available [facility] ([facility]) [address] [place], [address], 06/25/2016 07:15:19 06/24/2006/25/2016 CMP, serum or plasm a creatinine, serum 0.86 mg/dL 0.57-1 .00 Not Available [facility] ([facility]) [address] [place], [address], 06/25/2016 07:15:19 06/24/2006/25/2016 CMP, serum or plasm a eGFR if nonafricn AM 87 mL/mi n/1.7 3 >59 Not Available [facility] ([facility]) [address] [place], [address], 06/25/2016 07:15:19 06/24/20 16 06/25/2016 CMP, serum or plasm a eGFR if africn AM 101 mL/mi n/1.7 3 >59 Not Available [facility] ([facility]) [address] [place], [address], 06/25/2016 07:15:19 06/24/20 16 06/25/2016 CMP, serum or plasm a BUN/creatini ne ratio 15 8-20 Not Available [facility] ([facility]) [address] [place], [address], 06/25/2016 07:15:19 06/24/20 16 06/25/2016 CMP, serum or plasm a sodium, serum 142 mmol/ L 134-14 4 Not Available [facility] ([facility]) [address] [place], [address], 06/25/2016 07:15:19 06/24/2006/25/2016 CMP, serum or plasm a potassium, serum 4.5 mmol/ L 3.5-5. 2 Not Available [facility] ([facility]) [address] [place], [address], 06/25/2016 07:15:19 06/24/2006/25/2016 CMP, serum or plasm a chloride, serum 101 mmol/ L 97-108 Not Available [facility] ([facility]) [address] [place], [address], 06/25/2016 07:15:19 06/24/2006/25/2016 CMP, serum or plasm a carbon dioxide, total 25 mmol/ L 18-29 Not Available [facility] ([facility]) [address] [place], [address], 06/25/2016 07:15:19 06/24/2006/25/2016 CMP, serum or plasm a calcium, serum 9.2 mg/dL 8.7-10 .2 Not Available [facility] ([facility]) [address] [place], [address], 06/25/2016 07:15:19 06/24/20 16 06/25/2016 CMP, serum or plasm a protein, total, serum 6.6 g/dL 6.0-8. 5 Not Available [facility] ([facility]) [address] [facility] [place], [address], 06/25/2016 07:15:19 06/24/2006/25/2016 CMP, serum or plasm a albumin, serum 4.1 g/dL 3.5-5. 5 Not Available [facility] ([facility]) [address] [facility] [place], [address], 06/25/2016 07:15:19 06/24/2006/25/2016 CMP, serum or plasm a globulin, total 2.5 g/dL 1.5-4. 5 Not Available [facility] ([facility]) [address] [facility], [place], [address], 06/25/2016 07:15:19 06/24/2006/25/2016 CMP, serum or plasm a A/G ratio 1.6 1.1-2. 5 Not Available [facility] ([facility]) [address] [facility], [place], [address], 06/25/2016 07:15:19 06/24/2006/25/2016 CMP, serum or plasm a bilirubin, total <0.2 mg/dL 0.0-1. 2 Not Available [facility] ([facility]) [address] [facility] [place], [address], 06/25/2016 07:15:19 06/24/2006/25/2016 CMP, serum or plasm a alkaline phosphatase, S 84 IU/L 39-117 Not Available [facility] ([facility]) [address] [facility] [place], [address], 06/25/2016 07:15:19 06/24/2006/25/2016 CMP, serum or plasm a AST (SGOT) 10 IU/L 0-40 Not Available [facility] ([place] [facility]) [address] [facility] [place], [address], 06/25/2016 07:15:19 06/24/20 16 06/25/2016 CMP, serum or plasm a ALT (SGPT) 7 IU/L 0-32 Not Available [facility] ([place] [facility]) [address] [facility] [place], [address], 06/25/2016 07:15:19 06/24/20 16 06/25/2016 lipid panel , serum cholesterol, total 168 mg/dL 100-19 9 Not Available [facility] ([place] [facility]) [address] [facility] [place], [address], 06/25/2016 07:15:20 06/24/20 16 06/25/2016 lipid panel , serum triglyceride s 107 mg/dL 0-149 Not Available [facility] ([place] [facility]) [address] [facility] [place], [address], 06/25/2016 07:15:20 06/24/20 16 06/25/2016 lipid panel , serum HDL cholesterol 42 mg/dL >39 ACCOR DING TO ATP-I II GUIDE LINES , HDL-C >59 MG/DL IS CONSI DERED A NEGAT DAVE RISK FACTO R FOR CHD. Not Available [facility] ([place] [facility]) [address] [facility] [place], [address], 06/25/2016 07:15:20 06/24/20 16 06/25/2016 lipid panel , serum VLDL cholesterol mary 21 mg/dL 5-40 Not Available [facility] ([place] [facility] [facility]) [address] [facility] [place], [address], 06/25/2016 07:15:20 06/24/20 16 06/25/2016 lipid panel , serum LDL cholesterol calc 105 mg/dL 0-99 above high normal Not Available [facility] ([facility]) [address] [place], [address], 06/25/2016 07:15:20 06/24/20 16 06/25/2016 lipid panel , serum comment: TARIFF COUNSEL Not Available [facility] ([facility]) [address] [facility], [place], [address], 06/25/2016 07:15:20 06/24/20 16 06/25/2016 lipid panel , serum T. chol/HDL ratio 4.0 ratio _unit s 0.0-4. 4 T. CHOL/ HDL RATIO MEN WOMEN 1/2 AVG.R ISK 3.4 3.3 AVG.R ISK 5.0 4.4 2X AVG.R ISK 9.6 7.1 3X AVG.R ISK 23.4 11.0 Not Available [facility] ([facility]) [address] [place], [address], 06/25/2016 07:15:20 06/24/20 16 06/25/2016 TSH, serum or plasm a TSH 4.250 uIU/m L 0.450- 4.500 Not Available [facility] ([facility]) [address] [place], [address], 06/25/2016 07:15:20 07/02/20 16 07/05/2016 pap, IG + HPV, cervi mary diagnosis: COMMEN T ALFONZO ACOSTA FOR INTRA EPITH ELIAL CARI Segovia AND ONIEL MARTIN . Not Available [facility] ([facility]) [address] [facility], [place], [address], 07/07/2016 15:16:34 07/02/20 16 07/05/2016 pap, IG + HPV, cervi mary specimen adequacy: COMMEN T SATIS FACTO RY FOR EVALU ATION . ENDOC ERVIC AL AND/O R SQUAM OUS METAP LASTI C CELLS (ENDO CERVI MARY COMPO NENT) ARE PRESE NT. Not Available [facility] ([facility]) [address] [facility], [place], [address], 07/07/2016 15:16:34 07/02/20 16 07/05/2016 pap, IG + HPV, cervi mary clinician provided ICD10: RYAN Diehl Z01.4 11 Not Available [facility] ([facility]) [address] [facility], [place], [address], 07/07/2016 15:16:34 07/02/20 16 07/05/2016 pap, IG + HPV, cervi mary performed by: RYAN SHETTY , CHAY Diehl (ASCP ) Not Available [facility] ([facility]) [address] [place], [address], 07/07/2016 15:16:34 07/02/20 16 07/05/2016 pap, IG + HPV, cervi mary . . Not Available [facility] ([facility]) [address] [place], [address], 07/07/2016 15:16:34 07/02/20 16 07/05/2016 pap, IG + HPV, cervi mary note: RYAN Diehl THE PAP SMEAR IS A SCREE TYRA TEST DESIG TIP TO AID IN THE DETEC TION OF NANDO LIGNA NT AND MALIG NANT CONDI TIONS OF THE UTERI NE CERVI X. IT IS NOT A DIAGN OSTIC PROCE DURE AND SHOUL D NOT BE USED THE SOLE MEANS OF DETEC TING CERVI MARY CANCE R. BOTH FALSE -POSI TIVE AND FALSE -NEGA TIVE REPOR TS DO OCCUR . Not Available [facility] ([facility]) [address] [facility], [place], [address], 07/07/2016 15:16:34 07/02/20 16 07/05/2016 pap, IG + HPV, cervi mary test methodology: RYAN Diehl THIS LIQUI D BASED THINP REP(R ) PAP TEST WAS SCREE TIP WITH THE USE OF AN IMAGE GUIDE D SYSTWm M. Not Available [facility] ([facility]) [address] [place], [address], 07/07/2016 15:16:34 07/02/20 16 07/07/2016 pap, IG + HPV, cervi mary HPV aptima NEGATI VE negati ve THIS TEST DETEC TS FOURT EEN HIGH- RISK HPV TYPES (16/1 8/31/ 33/35 /39/4 5/ 51/52 /56/5 8/59/ 66/68 ) WITHO UT DIFFE RENTI ATION . Not Available [facility] ([facility]) [address] [facility], [place], [address], 07/07/2016 15:16:34 03/15/20 17 03/16/2017 rf (rheu matoi d facto r), serum RA latex turbid. <10.0 IU/mL 0.0-13 .9 Not Available [facility] ([facility]) [address] [facility], [place], [address], 03/16/2017 13:11:36 03/15/20 17 03/16/2017 HIV 1+2 AB + HIV 1 p24 Ag, quali tativ e immun oassa y, serum HIV screen 4TH generation wrfx NON REACTI VE non reacti ve Not Available [facility] ([facility]) [address] [facility], [place], [address], 03/16/2017 13:11:36 03/15/20 17 03/15/2017 hepat itis C Ab, signa l-to- cutof f, serum or plasm a comment: COMMEN T NON REACT DAVE HCV ANTIB BECCA SCREE N IS CONSI STENT WITH NO HCV INFEC TION, UNLES S RECEN T INFEC TION IS SUSPE CTED OR OTHER EVIDE NCE EXIST S TO INDIC ATE HCV INFEC TION. Not Available [facility] ([facility]) [address] [facility], [place], [address], 03/16/2017 13:11:37 03/15/20 17 03/16/2017 hepat itis C Ab, signa l-to- cutof f, serum or plasm a HCV Ab <0.1 S/co_ ratio 0.0-0. 9 Not Available [facility] ([facility]) [address] [facility], [place], [address], 03/16/2017 13:11:37 03/15/20 17 03/16/2017 CY (anti nucle ar antib odies ) scree n, serum CY direct NEGATI VE negati ve Not Available [facility] ([facility]) [address] [facility], [place], [address], 03/16/2017 13:11:37 06/10/20 16 06/10/2016 CT, abdom en and pelvi s No observ ation record ed. [email or web address] Not Available 2015 17:22:42 08/31/20 16 08/31/2016 XR, chest , 2 view No observ ation record ed. [email or web address] Not Available 2015 19:42:21 07/25/20 17 07/25/2017 XR, hand No observ ation record ed. [email or web address] [place] [address] (Imaging) [address] [place], [address], 07/26/2017 12:11:46 07/25/20 17 07/25/2017 XR, wrist No observ ation record ed. [facility] (Imaging) [address] [place], [address], 07/26/2017 09:58:31 02/29/20 18 02/28/2018 XR, hip + pelvi s, unila teral , 2 or 3 view No observ ation record ed. [email or web address] [facility] [address] [place], [address], 02/28/2018 16:41:46 05/17/20 18 XR, ankle No observ ation record ed. [email or web address] Not Available 2017 11:07:46 05/17/20 18 XR, knee No observ ation record ed. [email or web address] Not Available 2017 14:16:13 06/05/20 19 06/05/2019 XR, lumba r spine No observ ation record ed. [email or web address] [facility] (Imaging) [address] [facility], [place], [address], 06/05/2019 17:40:00 Result Notes Documentation Provider Name and Address Organization Details Recorded Time Xr, Chest, 2 View : Chest X-ray Interpretation: Quality: good Interpretation: no active pulmonary disease, no cardiomegaly, no lymphadenopathy, no diaphragm abnormalities Ilene Rader PA-C Attn: Accounting,[address] [place], [place], [address] [place] [address], [facility] 08/31/2016 19:42:21 Problems Name Problem SNOMED Code Status Onset Date Resolution Date Notes Provider Name and Address Organization Details Recorded Time Neck sprain 034155659 Active Ilene Rader PA-C Attn: Accounting ,[address] [place], [place], [address] [place] [address] , [facility] 6 14:10:24 Contusion 436584700 Active Ilene Rader PA-C Attn: Accounting ,[address] [place], [place], [address] [place] [address] , [facility] - [facility] 6 11:46:36 Anemia 678981697 Active Ilene Rader PA-C Attn: Accounting ,[address] [place], [place], [address] [place] [address] , [facility] - [facility] 6 11:46:36 Smoker 42801157 Active <1/2pp d Ilene Rader PA-C Attn: Accounting ,[address] [place], [place], [address] [place] [address] , [facility] - [facility] 6 11:48:04 Anxiety 60144800 Active Ilene Rader PA-C Attn: Accounting ,[address] [place], [place], [address] [place] [address] , [facility] 6 11:46:36 Strain of back muscle 835795228 Ambrosio Rader PA-C Attn: Accounting ,[address] [place], [place], [address] [place] [address] , [facility] 6 11:46:36 Hand pain 06888369 Active Ilene Rader PA-C Attn: Accounting ,[address] [facility], [place], [address] , [facility] - [facility] 6 11:46:36 Tobacco dependence syndrome 17462731 Active Ilene Rader PA-C Attn: Accounting ,[address] [facility], [place], [address] , [facility] 6 14:10:24 Obesity 416042920 Active Ilene Rader PA-C Attn: Accounting ,[address] [facility], [place], [address] , [facility] 6 14:10:24 Pain in right hip joint 2999898868992 02 Active 2016 Ilene Rader PA-C Attn: Accounting ,[address] [facility], [place], [address] , [facility] - [facility] 7 14:42:54 Problem Notes None recorded. Procedures Surgical History Date Name Laterality Status Provider Name and Address Organization Details Recorded Time Other completed Ilene Rader PA-C Attn: Accounting, [facility], [place], [address], [facility] - [facility] 06/18/2016 11:55:29 Cholecystectomy completed Mirian Kerr [place] - [facility] 11/20/2015 11:06:40 Imaging Results Imaging Date Name Status [email or web address] Details LastModified Time 06/10/2016 CT, abdomen and pelvis completed Information not available 06/10/2016 17:22:42 08/31/2016 XR, chest, 2 view completed Information not available 08/31/2016 19:42:21 07/25/2017 XR, hand completed [email or web address] [facility] (Imaging) [address] [place], [address], 07/26/2017 12:11:46 07/25/2017 XR, wrist completed [email or web address] [facility] (Imaging) [address] [place], [address], 07/26/2017 09:58:31 02/28/2018 XR, hip + pelvis, unilateral, 2 or 3 view completed [email or web address] [facility] [address] [place], [address], 02/28/2018 16:41:46 05/17/2018 XR, ankle completed [email or web address] Information no t available 05/19/2018 11:07:46 05/17/2018 XR, knee completed Information no t available 05/17/2018 14:16:13 06/05/2019 XR, lumbar spine completed [email or web address] [facility] (Imaging) [address] [place], [address], 06/05/2019 17:40:00 Procedure Notes None recorded. Medical Equipment None Reported. Allergies No known drug allergies Medications Name Sig Start Date Stop Date Status Note LastModified by Organization Details LastModified Time cyclobenzap rine 10 mg tablet Take 1 tablet every day by oral route at bedtime. 06/18 completed Not Available Not Available Not Available methocarbam ol 500 mg tablet Take 2 tablets 4 times a day by oral route as needed. active Not Available Not Available No t Available hydrocodone 7.5 mg-ibuprofe n 200 mg tablet active Not Available Not Available Not Available Medrol (Philip) 4 mg tablets in a dose pack Take 1 tablet(s) every day by oral route as directed on package. 2016 active Not Available Not Available Not Avai lable prednisone 20 mg tablet Take 1 tablet every day by oral route for 5 days. 07/02 completed Not Available Not Available Not Available cephalexin 500 mg capsule 07/02 completed Not Available Not Available Not Available nystatin 100,000 unit/gram topical cream active Not Available Not Available Not Available Tylenol-Cod eine #3 300 mg-30 mg tablet Take 1 tablet twice a day by oral route as needed severe pain. 06/18 completed Not Available Not Available Not Available fluticasone propionate 50 mcg/actuati on nasal spray,suspe nsion active Not Available Not Available Not Available naproxen 500 mg tablet Take 1 tablet twice a day by oral route with meals. 06/18 completed Not Available Not Available Not Available bupropion HCl 150 mg tablet,12 hr sustained-r elease(smok ing deterrent) Take 1 tablet twice a day by oral route. 07/02 completed Not Available Not Available Not Available Vitals Date Recorded Body mass index (BMI) Body weight Body height Heart rate Respiratory rate Systolic blood pressure Diastolic blood pressure Provider Name and Address Organization Details Last Updated DateTime 6 33.9 kg/m2 10798.8 58805 g 162.56 cm 84 /min 16 /min 124 mm[Hg] 70 mm[Hg] Mirian Kerr MA [facility] 6 11:25:12 Date Recorded Heart rate Respiratory rate Body weight Body mass index (BMI) Body height Body temperature Systolic blood pressure Diastolic blood pressure Provider Name and Address Organization Details Last Updated DateTime 6 91 /min 18 /min 73906.9 76769 g 32 kg/m2 162.56 cm 98 [degF] 116 mm[Hg] 78 mm[Hg] Hoda Gould MA [facility] 6 11:46:26 Date Recorded Body height Body temperature Heart rate Body weight Respiratory rate Body mass index (BMI) Systolic blood pressure Diastolic blood pressure Provider Name and Address Organization Details Last Updated DateTime 6 162.56 cm 98.3 [degF] 76 /min 03010.3 90651 g 16 /min 31.8 kg/m2 124 mm[Hg] 80 mm[Hg] Marcial Amor [facility] 6 11:05:35 Date Recorded Body height Heart rate Oxygen saturation Oxygen saturation in Arterial blood by Pulse oximetry Systolic blood pressure Diastolic blood pressure Provider Name and Address Organization Details Last Updated DateTime 6 162.56 cm 71 /min 99 % 99 % 110 mm[Hg] 84 mm[Hg] Shyann Prince MA [facility] 6 13:20:41 Date Recorded Body temperature Body mass index (BMI) Body weight Provider Name and Address Organization Details Last Updated DateTime 08/13/2016 98 [degF] 32.4 kg/m2 43232.9579 3 g Ilene Rader PA-C Attn: Accounting,[address] [place], [address], [place] - [facility] 08/13/2016 13:26:22 Date Recorded Body height Body weight Body mass index (BMI) Oxygen saturation Oxygen saturation in Arterial blood by Pulse oximetry Heart rate Respiratory rate Body temperature Systolic blood pressure Diastolic blood pressure Provider Name and Address Organization Details Last Updated DateTime 7 162.56 cm 42365.4 3 g 30.8 kg/m2 97 % 97 % 80 /min 20 /min 98.3 [degF] 100 mm[Hg] 80 mm[Hg] Hoda Gould MA [place] - [facility] 7 14:21:45 Social History Question Answer Notes LastModified by Organizat ion Details LastModified Time Tobacco Smoking Status Current Every Day Smoker Mirian Kerr MA [facility], [place] - [facility] 11/20/2015 11:06:40 What Is Your Level Of Alcohol Consumption? None Information not available 06/18/2016 What Is Your Level Of Caffeine Consumption? Moderate Information not available 06/18/2016 How Much Tobacco Do You Chew? None Information not available 06/18/2016 Are You Currently Employed? Yes Information not available 06/18/2016 What Type Of Diet Are You Following? REGULAR Information not available 06/18/2016 Which Illicit Or Recreational Drugs Have You Used? None Information not available 06/18/2016 Education 8 Information no t available 06/18/2016 Are There Any Guns Present In Your Home? No Information not available 06/18/2016 Hard Of Hearing Or Deaf In One Or Both Ears? No Information not available 06/18/2016 Legally Blind In One Or Both Eyes? No Information not available 06/18/2016 Live Alone Or With Others? With Others And Mother Information not available 06/18/2016 Marital Status Informatio n not available 06/18/2016 How Many Children Do You Have? 5 Information not available 06/18/2016 Performs Monthly Self-breast Exam? No Information not available 06/18/2016 Do You Use Protection During Sex? No Information not available 06/18/2016 Seat Belts Used Routinely Yes Information not available 06/18/2016 Are You Sexually Active? Yes Information not available 06/18/2016 Smoke Alarm In Home Yes Information not available 06/18/2016 How Much Tobacco Do You Smoke? 0.5 PPD [email or web address] Information not available 11/20/2015 General Stress Level Medium Information not available 06/18/2016 Do You Use Sunscreen Routinely? Yes Information not available 06/18/2016 Sex: Unknown Functional Status Question Answer Note LastModified by Organization D etails LastModified Time What is your exercise level? Moderate Information not available 06/18/2016 Mental Status None recorded. Family History Relationship Description Onset Age of this Age Resolved Age Notes LastModified by Organization Details LastModified Time Mother Alcohol abuse Not available 2015 11:46:26 Mother Hypertensive disorder Not available 2015 11:46:26 Mother Asthma Not available 06/18/2016 11:46:26 Father Alcohol abuse Not available 2015 11:46:26 Medical History Condition Response Coronary Artery Disease N Other N Atrial Fibrillation N High Blood Pressure N Kidney or Bladder Problems N Thyroid Problems N GI Problems N Depression N COPD N Blood Clots N Skin Problems N Anemia N Heart Attack ([place]) N Anxiety Disorder N Diabetes N Muscle, Joint, or Bone Problems N Seizures/Epilepsy N Acid Reflux (GERD) N Cancer N Stroke N Asthma N Allergies N High Cholesterol N Hepatitis N Liver Disease N Headaches N Heart Failure N Osteoporosis N Gynecological History Statement/Question Response Flow Heavy STIs/STDs N Duration of Flow (days) 6 Age at Menarche 9 Current Control Method Tubal Ligat ion Age at First Child 14 Frequency of Cycle (Q days) 28 Sexually Active? Y Menses Monthly Y Sexual Problems? N LMP Definite Desired Control Method N/A Obstetrics History GPAL:G 0 P 0 0 0 0 Past Encounters Encounter ID Performer Location Encounter Start Date Encounter Closed Date Diagnosis/Indication Diagnosis SNOMED-CT Code Diagnosis ICD10 Code Diagnosis Note [id number] Chino Carroll MD [facility] [address] [place] [address] 11/20/2015 10:53:14 11/20/2015 12:33:47 Neck sprain 849303319 S13.9XXA Contusion 946171493 T14. 8 [id number] Chino Carroll MD [facility] [address] [place] [address] 12/04/2015 11:09:20 12/05/2015 09:37:24 Neck sprain 200204172 S13.9XXA [id number] PAIGE Palacio (Adult Med) [address] [place] [address] 06/18/2016 11:16:10 06/18/2016 12:08:54 Adult health examination 400125197 Z00.01 36YO female here to establish care. Her only complaints today are right hand pain/defor mity and pain over the right sciatic notch. Smoker 70504894 F17.200 Strain of back muscle 26 1103566 S39.012A Hand pain 79876007 M79.6 41 Will refer to OT Neck sprain 059816696 S1 3.9XXD Anxiety 44162123 F41.9 At this time does not want to see a counselor - states that it did not help in the past [id number] PAIGE Palacio (Adult Med) [address] [place] [phone] 07/02/2016 10:41:59 07/02/2016 11:48:36 Gynecologic examination 90689793 Z01.411 White patches on cervix - will await pap smear results Smoker 28980037 F17.200 Advised to quit - did not like Wellbutrin and patches have not worked in the past Not interested in smoking cessation groups [id number] PAIGE Palacio (Adult Med) [address] [place] [phone] 08/13/2016 12:25:38 08/13/2016 14:10:50 Tobacco dependence syndrome 94329218 F17.290 Advised to quit smoking Neck sprain 815263746 S1 3.9XXD Will initiate dose pack - has worked for patient in the past Will try robaxin as well Patient does not want to do PT at this time States that she already knows the exercises that she needs to be doing and they have not helped at all Obesity 434871587 E66.9 Advised 30 minutes of exercise 5 days/week Advised to not drink her calories [id number] PAIGE Palacio (Adult Med) [address] [place] [address] 03/15/2017 14:10:53 03/15/2017 18:29:32 Hand pain 79668746 M79.641 Will check hand xray and RA labs - will send to hand specialist once results are received Obesity 792405326 E66.9 Advised 30 minutes of exercise 5 days/week Advised to not drink her calories Screening for disorder 624807196 Z13.9 Tobacco de pendence syndrome 12217935 F17.290 Advised to quit smokingSta damaso that she is down to 1/2ppd Pain in ri ght hip joint 7563300121 30562 M25.551 WIll begin with xray and labs Health Concerns Section Related Observation LastModified by Organization Detai ls LastModified Time None Recorded Concern Status LastModified by Organization Details LastModified Time None Recorded Advance Directives Directive None Recorded Payers Encounter Date Sequence Insurance Name Policy Number Policy Artis Covered Member ID Artis Member ID Guarantor Name 12/04/2015 1 *SELF PAY* Charan Cantu 06/18/2016 1 [facility] (MEDICAID HMO) Mirian Cantu [id number] Mirian Cantu 07/02/2016 1 [facility] (MEDICAID HMO) Mirian Cantu [id number] Mirian Cantu 08/13/2016 1 [facility] (MEDICAID HMO) Mirian Cantu [id number] Mirian Cantu 03/15/2017 1 [facility] (MEDICAID HMO) Mirian Cantu [id number] Mirian Cantu Notes Date Note Type Note Provider Name and Address Organization Details Recorded Time 12/04/2015 text/html Pt did better while on the prednisone. Chino Carroll MD Attn: Accounting,[address] [place], [address], [place] - [facility] 12/04/2015 18:31:47 06/18/2016 text/html Hand/FingersRepo rt ed bypatient.Hand Dominance:right Location:right Quality:aching Duration:2 years Alleviating Factors:heat (hot water); steroids Aggravating Factors:carrying Associated Symptoms:weakness; numbness;tingling; swellingHip(s)Repo rted bypatient.Location :right Quality:aching Duration:years Timing:chronic (worsening over the last few month) Alleviating Factors:prednisone Aggravating Factors:standing; walking; carrying Associated Symptoms:no swelling; no redness; no warmth; no ecchymosis; no catching/locking; no popping/clicking; no buckling; no grinding; no instability; no radiation down leg; no drainage; no fever; no chills; no weight loss; no change in bowel/bladder habits;weakness;nu mbness;tingling Previous Surgery:none Prior Imaging:none Previous Injections:none Previous PT:none Work Related:no Working:no Here to establish care Ilene Rader PA-C Attn: Accounting,[address] [place], [address], [facility] 06/18/2016 12:17:40 07/02/2016 text/html Annual GYNReport ed bypatient.History: no gynecologic complaints Menstrual cycle:Normal menses Urinary symptoms:No hematuria; No incontinence Vulva:No genital lesion Vagina:Normal vaginal discharge Breast:No breast pain; No breast lump; No nipple discharge Current Contraception:Coles gamous relationship Sexual complaints:No sexual complaints; Normal libido;Pain during intercourse(lower back pain) Menopausal Symptoms:No menopausal symptoms; Normal vaginal lubrication Psychological symptoms:No depression; No anxiety; No PMDD Preventive measures:Encourage self breast examination; Encourage regular exercise; Encourage no tobacco useNotes: Denies personal or family hx/o breast, ovarian, cervical, or uterine cancers. Denies hx/o abnormal pap smears - cannot remember when she had her last pap smear Ilene Rader PA-C Attn: Accounting,[address] [place], [address], [facility] 07/02/2016 11:48:24 08/13/2016 text/html Neck PainReporte d bypatient.Trauma:n o Neurological Complaints:none Pain:worse with movement;worse with activity;radiates to(up right side of neck to head) Pain Duration:4 days (she woke up with this pain 4 days ago in the morning - denies any trauma - states that she slept on it wrong) Ilene Rader PA-C Attn: Accounting,[address] , [place], [address], [facility] 08/13/2016 14:10:41 03/15/2017 text/html Hand/FingersRepo rt ed bypatient.Hand Dominance:right Location:right Quality:aching Duration:2 years Alleviating Factors:heat (hot water); steroids Aggravating Factors:carrying Associated Symptoms:weakness; numbness;tingling; swelling Previous PT:helped a little (but when she stopped it worsened) Work Related:yes Working:modified dutyNotes:worsenin g since she tried OTStates that she knows that she needs to f/u more promptly, but she was just putting it offHip(s)Reported bypatient.Location :right Quality:aching Duration:years Timing:chronic (worsening over the last few month) Alleviating Factors:prednisone Aggravating Factors:standing; walking; carrying Associated Symptoms:no swelling; no redness; no warmth; no ecchymosis; no catching/locking; no popping/clicking; no buckling; no grinding; no instability; no radiation down leg; no drainage; no fever; no chills; no weight loss; no change in bowel/bladder habits;weakness;nu mbness;tingling Previous Surgery:none Prior Imaging:none Previous Injections:helped a little (but when she stopped it worsened) Previous PT:none Work Related:yes Working:modified dutyNotes:states that it is worse in the morning when she wakes up and then gets better throughout the day Patient states that her right hand and right hip are still bothering her and starting to worsen Ilene Rader PA-C Attn: Accounting,[address] , [place], [address], [facility] [facility] 03/15/2017 15:48:15 OBGyn Episode No OBEpisode recorded.
--- OUTSIDE RECORDS SUMMARY | 2025-02-11 18:44 | XMS_ITS | Encounter Summary ---
Author Organization [facility] Address [address] [place] [address] Care Team Providers Care Paraffiner Name Role Phone Daryl Metzger MD Primary Care Provider Bradley Gallegos MD Primary Care Provider [phone] Daryl Metzger MD Primary Care Provider Dasha Vicente [facility] Primary Care Provider [phone]- [phone] Encounter Details Date Type Department Care Team (Late st Contact Info) Description 07/13/2020 [place] [employer] Message Enc [facility] Medical Group [facility] [address] [place] [address] Daryl Metzger MD Question Social History Tobacco Use Types Packs/Day Years Used Date Smoking Tobacco: Every Day Cigarettes Smokeless Tobacco: Never Alcohol Use Standard Drinks/Week Comments Not Currently 0 (1 standard drink = 0.6 oz pur e alcohol) PHQ-2 Answer Date Recorded PHQ-2 Score 3 06/23/2020 Comments No Sex and Gender Information Value Date Recorded Sex Assigned at Female 01/08/2021 9:43 AM SECRETARY RECEPTIONIST Legal Sex Female 5:13 PM CDT Gender Identity Female 01/08/2021 9:43 AM SECRETARY RECEPTIONIST Sexual Orientation Straight 01/08/2021 9: 43 AM SECRETARY RECEPTIONIST COVID-19 Exposure Response Date Recorded In the [...] Rule Out 12/16/2020 12/16/2020 12/17/2020 4:31 PM SECRETARY RECEPTIONIST COVID-19 Rule Out 06/05/2021 06/05/2021 06/05/2021 12:31 PM CDT COVID-19 Rule Out 10/23/2021 10/23/2021 10/23/2021 9:25 AM SECRETARY RECEPTIONIST COVID-19 Rule Out 10/23/2021 10/23/2021 10/24/2021 12:21 AM SECRETARY RECEPTIONIST COVID-19 Rule Out 01/15/2022 01/15/2022 01/20/2022 10:53 AM SECRETARY RECEPTIONIST COVID-19 Rule Out 04/21/2022 04/21/2022 04/21/2022 11:42 AM CDT COVID-19 Rule Out 04/21/2022 04/21/2022 04/26/2022 7:02 AM CDT COVID-19 Rule Out 10/06/2022 10/06/2022 10/06/2022 1:21 PM SECRETARY RECEPTIONIST COVID-19 Rule Out 10/06/2022 10/06/2022 10/07/2022 3:34 PM SECRETARY RECEPTIONIST COVID-19 Rule Out 09/14/2023 09/14/2023 09/14/2023 3:48 PM CDT COVID-19 Rule Out 11/02/2024 11/02/2024 11/02/2024 4:03 PM SECRETARY RECEPTIONIST Assessment Noted Time PHQ-9 Depression Total Score: 020 1:12 PM CDT documented as of this encounter Care Teams Paraffiner Relationship Specialty Start Date End Date Daryl Metzger MD PCP - General FAMILY MEDICINE SPORTS MEDICINE 06/23/20 08/12/20 Bradley Carmichael MD [address] [place] [address] MEDICAL OFFICE BUILDING [address] [place] [address] PCP - General INTERNAL MEDICINE 08/13/20 08/19/20 Daryl Metzger MD PCP - General FAMILY MEDICINE SPORTS MEDICINE 08/20/20 10/09/20 Dasha Conway, PROSTHETICS LAB TECHNICIAN-BC [address] [place] [address] PCP - General 11/02/24 documented as of this encounter
--- OUTSIDE RECORDS SUMMARY | 2025-02-11 18:44 | XMS_ITS | Encounter Summary ---
Author Organization [facility] - [facility] Address [address] [place] [address] Care Team Providers Care Technician Trainee Name Role Phone Dasha Conway [facility] Primary Care Provider [phone]- [phone] Encounter Details Date Type Department Care Team (Late st Contact Info) Description 06/29/2022 Accelliont Message Enc [facility] Medical Group [facility] [place] [address] [address] [place] [address] [place] [address] [place] [address] 157 [place] [address] Still sick Social History Tobacco [...] Sex Assigned at Female 01/08/2021 9:43 AM MARKETING PROFESSOR Legal Sex Female 5:13 PM CDT Gender Identity Female 01/08/2021 9:43 AM MARKETING PROFESSOR Sexual Orientation Straight 01/08/2021 9: 43 AM MARKETING PROFESSOR COVID-19 Exposure Response Date Recorded In the [...] Rule Out 10/06/2022 10/06/2022 10/06/2022 1:21 PM MARKETING PROFESSOR COVID-19 Rule Out 10/06/2022 10/06/2022 10/07/2022 3:34 PM MARKETING PROFESSOR COVID-19 Rule Out 09/14/2023 09/14/2023 09/14/2023 3:48 PM CDT COVID-19 Rule Out 11/02/2024 11/02/2024 11/02/2024 4:03 PM MARKETING PROFESSOR Assessment Noted Time PHQ-9 Depression Total Score: 4 05/12/20 3:34 PM CDT documented as of this encounter Care Teams Technician Trainee Relationship Specialty Start Date End Date Dasha Conway, IT COORDINATOR- [address] [place] [address] PCP - General 11/02/24 documented as of this encounter
--- OUTSIDE RECORDS SUMMARY | 2025-02-11 18:44 | XMS_ITS | Encounter Summary ---
Author Organization [facility] Address [address] [place] [address] Care Team Providers Care Domestic Cleaner Name Role Phone Dasha Conway Erlin [facility] Primary Care Provider [phone]- [phone] Encounter Details Date Type Department Care Team (Late st Contact Info) Description 10/20/2022 VenueJamt Message Enc [facility] Medical Group Mult[facility]ialty Care - [place] [address] [address] [place] [address] [place] [address] [place] [address] 157 [place] [address] Mammogram Social History Tobacco Use [...] Sex Assigned at Female 01/08/2021 9:43 AM CPC CODER Legal Sex Female 5:13 PM CDT Gender Identity Female 01/08/2021 9:43 AM CPC CODER Sexual Orientation Straight 01/08/2021 9: 43 AM CPC CODER COVID-19 Exposure Response Date Recorded In the last 10 days, have asif rodriguez been in contact with someone who was confirmed or suspected to have Coronavirus/COVID-19? No / Unsure 10/06/2022 12:33 PM CPC CODER documented as of this encounter Functional Status [...] Rule Out 11/02/2024 11/02/2024 11/02/2024 4:03 PM CPC CODER Assessment Noted Time PHQ-9 Depression Total Score: 4 05/12/20 22 3:34 PM CDT documented as of this encounter Care Teams Domestic Cleaner Relationship Specialty Start Date End Date Dasha Conway FNP-STEPH [address] [place] [address] [id number] PCP - General 11/02/24 documented as of this encounter
--- OUTSIDE RECORDS SUMMARY | 2025-02-11 18:44 | XMS_ITS | Encounter Summary ---
Author Organization [facility] Address [address] [place] [address] Care Team Providers Care Sales Expert Home Theater Name Role Phone Dasha Conway [facility] Primary Care Provider [phone]- [phone] Encounter Details Date Type Department Care Team (Late st Contact Info) Description 11/01/2022 AgreeYa Mobility - Onvelopt Message Enc [facility] Medical Group Multispecialty Care - [place] [address] [address] [place] [address] Curtis Diaz MD [address] [facility] [address] [place] [address] Blood sugar Social History Tobacco [...] Sex Assigned at Female 01/08/2021 9:43 AM LABORATORY WORKER Legal Sex Female 5:13 PM CDT Gender Identity Female 01/08/2021 9:43 AM LABORATORY WORKER Sexual Orientation Straight 01/08/2021 9: 43 AM LABORATORY WORKER COVID-19 Exposure Response Date Recorded In the last 10 days, have asif rodriguez been in contact with someone who was confirmed or suspected to have Coronavirus/COVID-19? No / Unsure 10/06/2022 12:33 PM LABORATORY WORKER documented as of this encounter Functional [...] Rule Out 11/02/2024 11/02/2024 11/02/2024 4:03 PM LABORATORY WORKER Assessment Noted Time PHQ-9 Depression Total Score: 4 05/12/20 3:34 PM CDT documented as of this encounter Care Teams Sales Expert Home Theater Relationship Specialty Start Date End Date Dasha Conway FNP-BC [address] [place] [address] PCP - General 11/02/24 documented as of this encounter
--- OUTSIDE RECORDS SUMMARY | 2025-02-11 18:44 | XMS_ITS | Encounter Summary ---
Author Organization [facility] Address [address] [place] [address] Care Team Providers Care Riding Teacher Name Role Phone Dasha Conway [facility] Primary Care Provider [phone]- [phone] Encounter Details Date Type Department Care Team (Latest Contact Info) Description 06/01/2022 The Scenet Message Enc [facility] Medical Group Multispecialty Care - [place] [address] [address] [place] [address] [place] [address] [place] [address] 157 [place] [address] Medical marijuana card Social History [...] Sex Assigned at Female 01/08/2021 9:43 AM HANGER Legal Sex Female 5:13 PM CDT Gender Identity Female 01/08/2021 9:43 AM HANGER Sexual Orientation Straight 01/08/2021 9: 43 AM HANGER COVID-19 Exposure Response Date Recorded In the last 10 days, have yo michael been in contact with someone who was confirmed or suspected to have Coronavirus/COVID-19? No / Unsure 06/04/2022 9:36 AM CDT documented as of this encounter Functional Status * RETIRED Are you deaf or do you have serious difficulty hearing Answer Date of Assessment Author Status No 01/29/2022 10:15 PM HANGER Acti ve * RETIRED Are you blind or do you have serious difficulty seeing, even when wearing glasses? Answer Date of Assessment Author Status No 01/29/2022 10:15 PM HANGER Acti ve * Do you have serious [...] Rule Out 10/06/2022 10/06/2022 10/06/2022 1:21 PM HANGER COVID-19 Rule Out 10/06/2022 10/06/2022 10/07/2022 3:34 PM HANGER COVID-19 Rule Out 09/14/2023 09/14/2023 09/14/2023 3:48 PM CDT COVID-19 Rule Out 11/02/2024 11/02/2024 11/02/2024 4:03 PM HANGER Assessment Noted Time PHQ-9 Depression Total Score: 4 05/12/20 3:34 PM CDT documented as of this encounter Care Teams Riding Teacher Relationship Specialty Start Date End Date Dasha Conway FNP-STEPH [address] [place], [place] [id number] PCP - General 11/02/24 documented as of this encounter
--- OUTSIDE RECORDS SUMMARY | 2025-02-11 18:44 | XMS_ITS | Encounter Summary ---
Author Organization [facility] - [facility] Address [address] [place] [address] Care Team Providers Care Senior Software Qa Engineer Name Role Phone Dasha Conway [facility] Primary Care Provider [phone]- [phone] Encounter Details Date Type Department Care Team (Latest Contact Info) Description 08/20/2022 Foodinit Message Enc [facility] Medical Group Multispecialty Care - [place] [address] [address] [place] [address] Curtis Diaz MD [address] [facility] [address] [place] [address] Nausea and vomiting Social History [...] Sex Assigned at Female 01/08/2021 9:43 AM HARBOR TUG CAPTAIN Legal Sex Female 5:13 PM CDT Gender Identity Female 01/08/2021 9:43 AM HARBOR TUG CAPTAIN Sexual Orientation Straight 01/08/2021 9: 43 AM HARBOR TUG CAPTAIN COVID-19 Exposure Response Date Recorded In [...] Rule Out 10/06/2022 10/06/2022 10/06/2022 1:21 PM HARBOR TUG CAPTAIN COVID-19 Rule Out 10/06/2022 10/06/2022 10/07/2022 3:34 PM HARBOR TUG CAPTAIN COVID-19 Rule Out 09/14/2023 09/14/2023 09/14/2023 3:48 PM CDT COVID-19 Rule Out 11/02/2024 11/02/2024 11/02/2024 4:03 PM HARBOR TUG CAPTAIN Assessment Noted Time PHQ-9 Depression Total Score: 4 05/12/20 3:34 PM CDT documented as of this encounter Care Teams Senior Software Qa Engineer Relationship Specialty Start Date End Date Dasha Conway, BIBLE TEACHER- [address] [place] [address] PCP - General 11/02/24 documented as of this encounter
--- OUTSIDE RECORDS SUMMARY | 2025-02-11 18:44 | XMS_ITS | Encounter Summary ---
Author Organization [facility] - [facility] Address [address] [place] [address] Care Team Providers Care Clinical Field Specialist Name Role Phone Dasha Conway [facility] Primary Care Provider [phone]- [phone] Encounter Details Date Type Department Care Team (Late st Contact Info) Description 05/26/2022 Gallery AlSharqt Message Enc [facility] Medical Group Multispecialty Care - [place] [address] [address] [place] [address] [place] [address] [place] [address] 157 [place] [address] Fluconazole Social History Tobacco Use [...] Assigned at Female 01/08/2021 9:43 AM BUILDING CONSTRUCTION SUPERINTENDENT Legal Sex Female 5:13 PM CDT Gender Identity Female 01/08/2021 9:43 AM BUILDING CONSTRUCTION SUPERINTENDENT Sexual Orientation Straight 01/08/2021 9: 43 AM BUILDING CONSTRUCTION SUPERINTENDENT COVID-19 Exposure Response Date Recorded In the last 10 days, have asif rodriguez been in contact with someone who was confirmed or suspected to have Coronavirus/COVID-19? No / Unsure 05/17/2022 8:13 AM CDT documented as of this encounter Functional Status * RETIRED Are you deaf or do you have serious difficulty hearing Answer Date of Assessment Author Status No 01/29/2022 10:15 PM BUILDING CONSTRUCTION SUPERINTENDENT Acti ve * RETIRED Are you blind or do you have serious difficulty seeing, even when wearing glasses? Answer Date of Assessment Author Status No 01/29/2022 10:15 PM BUILDING CONSTRUCTION SUPERINTENDENT Acti ve * Do you have serious [...] Out 10/06/2022 10/06/2022 10/06/2022 1:21 PM BUILDING CONSTRUCTION SUPERINTENDENT COVID-19 Rule Out 10/06/2022 10/06/2022 10/07/2022 3:34 PM BUILDING CONSTRUCTION SUPERINTENDENT COVID-19 Rule Out 09/14/2023 09/14/2023 09/14/2023 3:48 PM CDT COVID-19 Rule Out 11/02/2024 11/02/2024 11/02/2024 4:03 PM BUILDING CONSTRUCTION SUPERINTENDENT Assessment Noted Time PHQ-9 Depression Total Score: 4 05/12/20 3:34 PM CDT documented as of this encounter Care Teams Clinical Field Specialist Relationship Specialty Start Date End Date Dasha Conway FNP-STEPH [address] [place], [place] [id number] PCP - General 11/02/24 documented as of this encounter
--- OUTSIDE RECORDS SUMMARY | 2025-02-11 18:44 | XMS_ITS | Encounter Summary ---
Author Organization [facility] Address [facility] [place] [address] Care Team Providers Care Jewel Inserter Name Role Phone Daryl Metzger MD Primary Care Provider Bradley Gallegos MD Primary Care Provider [phone] Daryl Metzger MD Primary Care Provider Dasha Vicente [facility] Primary Care Provider [phone]- [phone] Encounter Details Date Type Department Care Team (Late st Contact Info) Description 07/13/2020 PowerUp Toyst Message Enc [facility] Medical Group [facility] Medicine [place] [address] [place] [address] Daryl Metzger MD RE: Referral Request Social [...] Sex Assigned at Female 01/08/2021 9:43 AM ASSEMBLY LINE MACHINE OPERATOR Legal Sex Female 5:13 PM CDT Gender Identity Female 01/08/2021 9:43 AM ASSEMBLY LINE MACHINE OPERATOR Sexual Orientation Straight 01/08/2021 9: 43 AM ASSEMBLY LINE MACHINE OPERATOR COVID-19 Exposure Response Date Recorded [...] Rule Out 12/16/2020 12/16/2020 12/17/2020 4:31 PM ASSEMBLY LINE MACHINE OPERATOR COVID-19 Rule Out 06/05/2021 06/05/2021 06/05/2021 12:31 PM CDT COVID-19 Rule Out 10/23/2021 10/23/2021 10/23/2021 9:25 AM ASSEMBLY LINE MACHINE OPERATOR COVID-19 Rule Out 10/23/2021 10/23/2021 10/24/2021 12:21 AM ASSEMBLY LINE MACHINE OPERATOR COVID-19 Rule Out 01/15/2022 01/15/2022 01/20/2022 10:53 AM ASSEMBLY LINE MACHINE OPERATOR COVID-19 Rule Out 04/21/2022 04/21/2022 04/21/2022 11:42 AM CDT COVID-19 Rule Out 04/21/2022 04/21/2022 04/26/2022 7:02 AM CDT COVID-19 Rule Out 10/06/2022 10/06/2022 10/06/2022 1:21 PM ASSEMBLY LINE MACHINE OPERATOR COVID-19 Rule Out 10/06/2022 10/06/2022 10/07/2022 3:34 PM ASSEMBLY LINE MACHINE OPERATOR COVID-19 Rule Out 09/14/2023 09/14/2023 09/14/2023 3:48 PM CDT COVID-19 Rule Out 11/02/2024 11/02/2024 11/02/2024 4:03 PM ASSEMBLY LINE MACHINE OPERATOR Assessment Noted Time PHQ-9 Depression Total Score: 13 020 1:12 PM CDT documented as of this encounter Care Teams Jewel Inserter Relationship Specialty Start Date End Date Daryl Metzger MD PCP - General FAMILY MEDICINE SPORTS MEDICINE 06/23/20 08/12/20 Bradley Carmichael MD [address] [place] [address] [address] MED[facility] OFFICE BUILDING [address] [place] [address] PCP - General INTERNAL MEDICINE 08/13/20 08/19/20 Daryl Metzger MD PCP - General FAMILY MEDICINE SPORTS MEDICINE 08/20/20 10/09/20 Dasha Conway, [facility]- [address] [place] [address] PCP - General 11/02/24 documented as of this encounter
--- OUTSIDE RECORDS SUMMARY | 2025-02-11 18:44 | XMS_ITS | Encounter Summary ---
Author Organization [facility] Address [address] [place] [address] Care Team Providers Care Specification Manager Name Role Phone Dasha Conway Erlin [facility] Primary Care Provider [phone]- [phone] Encounter Details Date Type Department Care Team (Late st Contact Info) Description 05/17/2022 MyChart Message Enc [facility] Medical Group Multispecialty Care - [place] [address] [address] [place] [address] [place] [address] [place] [address] 157 [place] [address] Today's visit Social History Tobacco [...] Sex Assigned at Female 01/08/2021 9:43 AM PARTS COUNTER SALESPERSON Legal Sex Female 5:13 PM CDT Gender Identity Female 01/08/2021 9:43 AM PARTS COUNTER SALESPERSON Sexual Orientation Straight 01/08/2021 9: 43 AM PARTS COUNTER SALESPERSON COVID-19 Exposure Response Date Recorded In the last 10 days, have asif rodriguez been in contact with someone who was confirmed or suspected to have Coronavirus/COVID-19? No / Unsure 05/17/2022 8:13 AM CDT documented as of this encounter Functional Status * RETIRED Are you deaf or do you have serious difficulty hearing Answer Date of Assessment Author Status No 01/29/2022 10:15 PM PARTS COUNTER SALESPERSON Acti ve * RETIRED Are you blind or do you have serious difficulty seeing, even when wearing glasses? Answer Date of Assessment Author Status No 01/29/2022 10:15 PM PARTS COUNTER SALESPERSON Acti ve * Do you have serious [...] Rule Out 10/06/2022 10/06/2022 10/06/2022 1:21 PM PARTS COUNTER SALESPERSON COVID-19 Rule Out 10/06/2022 10/06/2022 10/07/2022 3:34 PM PARTS COUNTER SALESPERSON COVID-19 Rule Out 09/14/2023 09/14/2023 09/14/2023 3:48 PM CDT COVID-19 Rule Out 11/02/2024 11/02/2024 11/02/2024 4:03 PM PARTS COUNTER SALESPERSON Assessment Noted Time PHQ-9 Depression Total Score: 4 05/12/20 3:34 PM CDT documented as of this encounter Care Teams Specification Manager Relationship Specialty Start Date End Date Dasha Conway FNP-BC [address] [place] [address] PCP - General 11/02/24 documented as of this encounter
--- OUTSIDE RECORDS SUMMARY | 2025-02-11 18:44 | XMS_ITS | CONTINUITY OF CARE DOCUMENT ---
Author Name rahel mcginnis Address Unknown Organization [facility] Address [address] [place] [address] Phone [phone] Care Team Providers Care Postal Delivery Officer Name Role Phone Javy James MD Unavailable [phone] Javy James MD Unavailable DARREL CLARK, TARA Unavailable PROBLEMS Condition Status Date Provider Notes IRON [...] In-person encounter Office Visit Javy James MD [place] [facility] AsthmaTobacco dependence, continuousChest pain-type to be determinedScreeningHyperlip idemiaHypertriglyceridemiaB 12 deficiency with macrocytoisDiastolic dysfunction and lvh? Sleep apneaPalpitations;NML TSHSchizoaffective disorderOverweight VITAL SIGNS Date Observation Value Provider Body Mass Index (Ratio) 29.23 kg/m2 Dina James MD blood pressure, resting Yes [facility] oxygen saturation, oximetry 97 % [facility] pulse rate 87 /min [facility] blood pressure, diastolic 60 mm[Hg] Br ittany [facility] blood pressure, systolic 100 mm[Hg] Sammie ttany [facility] height E&M 63 [in_i] [facility] weight E&M 165 [lb_av] [facility] respiratory rate E&M 16 /min [facility] temperature E&M 98.0 [degF] [employer] rogelio [...] iron binding capacity, unsaturated 259 ug/dL [facility] [phone]/04/ 23 iron binding capacity, total 334 ug/dL [facility] [phone]/04/ 23 free thyroxine index 1.4 [facility] 1.2-4.9 [...] Not Estab. platelet count 255 X10E3/UL [facility] [phone]/04/ 23 red blood cell distribution width 12.1 [...] g/dL [facility] 6.0-8.5 calcium, serum 9.7 mg/dL [facility] 8[facility] carbon dioxide, venous blood 19 mmol/L [facility] 20-29 Low chloride, serum 98 mmol/L [facility] 96-106 potassium, serum 3.9 mmol/L [facility] 3.5-5.2 sodium, serum 141 mmol/L [facility] [phone]/04/ 23 urea nitrogen/creatinine ratio, serum 8 [facility] [...] DAY Javy James MD VITAMIN D (ERGOCALCIFEROL) 38989 UNIT ORAL CAPSULE active one capsule by [...] T PO Q 12 H PRF PAIN Dari Block #60, 30 days supply, Prescribed by [...] HOURS. RINSE AND SPIT AFTER EACH U Adri Block #12, 30 days supply, Prescribed by [...] smoking status Current every day smoker B dvo Val[place] FAMILY HISTORY Family Member Condition Mother Family History of Co ngestive Heart Failure: Father Family History of Di abetes: INSURANCE PROVIDERS Payer name Policy type / Coverage type [place] red constitution party ID [facility] Other [facility] MEDICARE ADVANTAGE ([facility] COMPLETE PPO) Other [id number] [facility] Medicaid 1 [id number] ADVANCE DIRECTIVES Name Date DISCUSSED - NO DECISION MADE TREATMENT PLAN Date Name Performer :nml pro Javy James MD :NML UACR Javy James MD Javy James MD Cardiology Javy James MD Cardiology:sx Javy James MD Cardiology Javy James MD Cardiology Javy James MD Cardiology Javy James MD Cardiology Javy James MD Cardiology Javy James MD Cardiology Javy James MD Cardiology Javy James MD Date Name [...] LT) C-REACTIVE PROTEIN LIPID PANEL DLCO - 84327 FRC - 80599 FVC - 62809 HISTORY OF PROCEDURES Procedure Date Procedure Name Provider Procedure Notes S tatus FVC / MVV with bronchodilator - 50748 Javy James MD completed FRC - 59210 Javy James MD complet ed SpO2 w/o 6min walk/titration Javy James MD completed DLCO - 35977 Javy James MD comple jose CT- Coronary CA score Javy James MD completed EKG Javy James MD complete d
--- OUTSIDE RECORDS SUMMARY | 2025-02-11 18:44 | XMS_ITS | Clinical Summary ---
Author Organization [facility] [address] Address [address] [place] [address] Care Team Providers Care Information Systems Security Specialist Name Role Phone Donovan Parks MD Unavailable Dasha Conway NP Primary Care Provider [phone] Allergies Active Allergy Reactions Criticality Noted Date [...] 11/06/2024 Assessment & Plan (11/06/2024 3:13 PM BOILER/CHILLER OPERATOR): Myocardial ischemia ruled out. Differential also [...] 10/10/2024 Assessment & Plan (10/10/2024 9:05 PM BOILER/CHILLER OPERATOR): States that she has tried multiple medications in the past and she doesn't like any of them. Doesn't do well with them. Does not wish to try further treatment. Fatigue 10/10/2024 Assessment & Plan (10/10/2024 9:06 PM BOILER/CHILLER OPERATOR): Concern for M.S. will get updated [...] 08/23/2024 Assessment & Plan (10/10/2024 9:03 PM BOILER/CHILLER OPERATOR): Stable. Not currently on medication. A1c has been 6.1% . Will continue to monitor Assessment & Plan (08/27/2024 7:48 AM CDT): Well controlled without medication. A1c 6%. Recent labs done at [facility]. MTHFR mutation 01/28/2020 Pericardial effusion 10/04/2019 Overview (10/04/2019): Echo (08/12/18): moderate pericardial effusion with no evidence of tamponade. EF 60-70% Echo (08/22/18) trivial (barely visible) pericardial effusion, EF 50-55% Assessment & Plan (11/06/2024 3:07 PM BOILER/CHILLER OPERATOR): Small pericardial effusion seen on echo done at [facility], which appears to be an improvement over [...] puljemal Assessment & Plan (11/06/2024 3:09 PM BOILER/CHILLER OPERATOR): Has been told she has has fibromyalgia in the past. Differential includes a fibromyalgia flare. She had received an Rx for Decadron from the ER at [facility] in [place], I encouraged her to go pick that up from the pharmacy and try that this week Assessment & Plan (12/14/2021 11:42 AM BOILER/CHILLER OPERATOR): We had started LDN in 03/2020 [...] to her PCP. Will give referral to [facility] PT pain program in [place], [place]. Assessment & Plan (11/30/2021 3:33 PM BOILER/CHILLER OPERATOR): Last seen in 03/2020 after being [...] benefit and potential interaction with Dulera per front desk officer. Started LDN 4.5mg daily on 04/12/2020. Denies side effects but also denies any benefit at this time. Still complaining of severe generalized pain, fatigue, and insomnia. States dilaudid BID helps her hand pain. Recommend she follow up with pcp as they were originally prescribing this. [facility]. Continue LDN 4.5mg daily and give this more time tot take effect. Avoid Cymbalta and amitriptyline as patient reports suicidal ideation with antidepressants in the past. Failed gabapentin and had side effects to Lyrica. Follow up in 4-6 weeks. Sooner if needed. Discussed with Dr. Soler. Assessment & Plan (01/08/2020 3:02 PM BOILER/CHILLER OPERATOR): Tolerating flexeril 10mg BID and reports [...] Soler. Assessment & Plan (12/26/2019 10:32 AM BOILER/CHILLER OPERATOR): Tolerating tizanidine 4mg TID and notes [...] office. Assessment & Plan (11/28/2019 12:40 PM BOILER/CHILLER OPERATOR): Tolerating tizanidine 2mg BID and feels [...] needed. Assessment & Plan (10/16/2019 4:20 PM BOILER/CHILLER OPERATOR): US right hand/wrist (10/09/19):Mild effusions and power doppler on examination which will have to be correlated clinically. Grade 1 power doppler in the wrist and radial/scaphoid joint. Grade 1 effusion in the 3rd PIP joint. An enlarged median nerve is identified. Serologies revealed an elevated WBC (15.1), however other serological testing was unremarkable. Radiographs from previous city planning teacher revealed mild degenerative changes in the lumbar [...] Soler. Assessment & Plan (10/02/2019 4:02 PM BOILER/CHILLER OPERATOR): Patient presents with widespread pain in her hands, knees, and feet for the past 3-4 months. Has generalized pruritic, red papules on torso. Reports photosensitivity, pleuritic pains, cough however is a smoker, dry eyes and mouth, and oral ulcers. Currently on prednisone 20mg taper without any improvement of her symptoms. Synovitis with tenderness noted on peripheral joint exam. Soft tissue tenderness noted [id number] back on exam. FHx of 2 sisters with fibromyalgia and mother with psoriatic arthritis. Had x-rays through previous rheum which were scanned into Epic today. Previous serologies were also unremarkable. Symptoms and exam are suspicious for fibromyalgia. Because recent CY was negative per previous city planning teacher, it makes the possibility of SLE less likely. Will order appropriate serologies and a right hand/wrist US to further evaluate. Recommend patient see dermatology for rash. Follow up in 2 weeks. Sooner if needed. Seen with Dr. Soler. COPD (chronic obstructive pulmonary disease) Abnormal thyroid function test 01/03/2018 Assessment & Plan (01/03/2018 4:31 PM BOILER/CHILLER OPERATOR): Differential would include euthroid sick syndrome, [...] 01/17/2015 Assessment & Plan (11/06/2024 3:09 PM BOILER/CHILLER OPERATOR): Differential also includes asthma. She has [...] unchanged. Assessment & Plan (12/14/2021 11:43 AM BOILER/CHILLER OPERATOR): Repeat serologies with AVISE revealed only [...] currently on Xarelto. Will give referral to [facility] PT pain program. Discussed scheduling f/u in 4 months however there is not much in terms of treatment management that we would be able to offer at this point. Patient spoke with Dr. Soler as well. Assessment & Plan (11/30/2021 3:33 PM BOILER/CHILLER OPERATOR): Previously reported photosensitivity, pleuritic pains, cough [...] time. Assessment & Plan (01/08/2020 1:59 PM BOILER/CHILLER OPERATOR): Reports photosensitivity, pleuritic pains, cough however is a smoker, dry eyes and mouth, and oral ulcers. Repeat AVISE revealed a low positive RF, however no obvious synovitis noted on exam today and previous US was unremarkable. Symptoms do not respond to steroids. Assessment & Plan (12/26/2019 10:35 AM BOILER/CHILLER OPERATOR): Reports photosensitivity, pleuritic pains, cough however [...] 08/23/2024 Assessment & Plan (12/14/2021 11:09 AM BOILER/CHILLER OPERATOR): C/o red, pruritic papules over torso. FHx of mother with psoriatic arthritis. Pictures of rash on back sent via [employer] appear hive-like and do not have any erythema or notable scale. Recommend f/u with a silk finisher. Assessment & Plan (11/30/2021 3:31 PM BOILER/CHILLER OPERATOR): C/o red, pruritic papules over torso. FHx of mother with psoriatic arthritis. Recommend f/u with dermatology. Assessment & Plan (04/15/2020 10:19 AM CDT): Previous exam noted dry flaky, skin on hands with red demarcation around wrists suspicious for psoriasis. Now patient complaining of scaling rash on scalp. FHx of mother with psoriatic arthritis. Assessment & Plan (01/08/2020 1:58 PM BOILER/CHILLER OPERATOR): Previous exam noted dry flaky, skin on hands with red demarcation around wrists suspicious for psoriasis. Now patient complaining of scaling rash on scalp. FHx of mother with psoriatic arthritis. Assessment & Plan (12/26/2019 10:21 AM BOILER/CHILLER OPERATOR): Previous exam noted dry flaky, skin on hands with red demarcation around wrists suspicious for psoriasis. Now patient complaining of scaling rash on scalp. FHx of mother with psoriatic arthritis. Assessment & Plan (11/28/2019 12:41 PM BOILER/CHILLER OPERATOR): Rash improved once prednisone was stopped. Saw silk finisher Dr. Evelyn Gonzales who gave patinet triamcinalone cream, however patient has not started this as her rash is mostly on her face now. Previous exam noted dry, flaky skin on hands with red demarcation around wrists which is suspicious for psoriasis. FHx of mother with psoriatic arthritis. Patient given silk finisher Dr. Rose's information at previous visit. Assessment & Plan (10/16/2019 1:57 PM BOILER/CHILLER OPERATOR): Rash improved once prednisone was stopped. Saw silk finisher Dr. Evelyn Gonzales who gave patinet triamcinalone cream, however patient has not started this as her rash is mostly on her face now. Today notes dry, flaky skin on hands with red demarcation around wrists which is suspicious for psoriasis. FHx of mother with psoriatic arthritis. Patient given silk finisher Dr. Rose's information for further evaluation. Assessment & Plan (10/02/2019 4:05 PM BOILER/CHILLER OPERATOR): Generalized, erythematous papules noted on anterior/posterior [...] Department Care Team Description 02/11/2025 Nurse Triage [facility] Primary Care at [address] [address] Dasha Conway NP 02/08/2025 Orders Only [facility] Equal Opportunity Counselor at [address] [place] [phone] Sheba Moya NP Tachycardia (Primary Dx); Palpitations 01/04/2025 2:15 PM BOILER/CHILLER OPERATOR Office Visit [facility] at [facility] [address] [facility] [address] [place] [address] Sheba Moya NP Pericardial effusion (Primary Dx); Other chest pain; Mixed hyperlipidemia; Family history of cardiovascular disease 01/01/2025 12:44 PM BOILER/CHILLER OPERATOR - 01/01/2025 11:59 PM BOILER/CHILLER OPERATOR Hospital Encounter [facility] [address] [place] [address] Breast pain Discharge Disposition: Discharge to home [...] on file Legal Sex Female 3:37 AM BOILER/CHILLER OPERATOR Gender Identity Female 10/02/2019 1:12 AM BOILER/CHILLER OPERATOR Sexual Orientation Straight 10/02/2019 1: 12 AM BOILER/CHILLER OPERATOR Occupation Industry Job Start Date Job [...] Comments Blood Pressure 134/81 01/04/2025 2:14 PM BOILER/CHILLER OPERATOR Pulse 66 01/04/2025 2:14 PM BOILER/CHILLER OPERATOR Temperature 37 C (98.6 F) 11/01/2024 2:35 PM BOILER/CHILLER OPERATOR Respiratory Rate 18 01/04/2025 2:14 PM BOILER/CHILLER OPERATOR Oxygen Saturation 99% 11/01/2024 2:35 PM BOILER/CHILLER OPERATOR Inhaled Oxygen Concentration - - Weight 69.4 kg (153 lb) 01/04/2025 2:14 PM BOILER/CHILLER OPERATOR Height 160 cm (5' 3 ) 01/04/2025 2:14 PM BOILER/CHILLER OPERATOR Body Mass Index 27.1 01/04/2025 2:14 PM BOILER/CHILLER OPERATOR Plan of Treatment Health Maintenance Due [...] Read Routine (OP Routine) 01/01/2025 1:13 PM BOILER/CHILLER OPERATOR Breast pain HEMOGLOBIN A1C Routine 10/12/2024 3:00 PM BOILER/CHILLER OPERATOR Type 2 diabetes mellitus without complication, without long-term current use of insulin (HCC) LIPID PANEL Routine 10/12/2024 3:00 PM BOILER/CHILLER OPERATOR Type 2 diabetes mellitus without complication, without long-term current use of insulin (HCC) EGFR Routine 08/23/2024 3:03 PM CDT Type 2 diabetes mellitus without complication, without long-term current use of insulin (HCC) ALBUMIN CREATININE RATIO, URINE Routine 08/23/2024 3:03 PM CDT Type 2 diabetes mellitus without complication, without long-term current use of insulin (HCC) HEPATITIS PANEL, ACUTE Routine 10/02/2019 3:33 PM BOILER/CHILLER OPERATOR from Last 3 Months or Most Recently Relevant to Health Maintenance Results * Diagnostic Mammogram Bilateral W Marquis (01/01/2025 1:13 PM BOILER/CHILLER OPERATOR) Anatomical Region Laterality Modality Breast Bilateral Mammography 01/01/2025 1:27 PM BOILER/CHILLER OPERATOR Impressions 01/01/2025 1:27 PM BOILER/CHILLER OPERATOR No evidence of malignancy. Follow-up in 1 year with screening mammography is recommended. BI-RADS: 1 - Negative. The patient has been or will be contacted. The patient will be entered into a reminder system with a target due date of 1 year for her next mammogram. Electronically signed by: Ifrah Serrano M.D. Narrative 01/01/2025 1:27 PM BOILER/CHILLER OPERATOR EXAMINATION: DIAGNOSTIC MAMMOGRAM BILATERAL W MARQUIS [...] is no significant change. us Dasha Conway OUTDOOR PURSUITS INSTRUCTOR IMG MAMMO PROCEDURES Final Re sult * (ABNORMAL) Hemoglobin A1c (10/12/2024 3:00 PM BOILER/CHILLER OPERATOR) Hgb A1C 6.1(H) 4.0 - 5.6 % Estimated Average Glucose 128 mg/dL JOAN CORONEL Comment: The ADA recommends reporting an estimated Average Glucose (eAG) with all Hemoglobin A1c results using the equation derived from a study of 507 normal and diabetic adults. Minority populations were underrepresented and children were not included. (Diabetes Care 31:1688-0440, 2008). The eAG is not equivalent to a fasting glucose. Blood 10/12/2024 3:00 PM BOILER/CHILLER OPERATOR 10/12/2024 8:24 PM BOILER/CHILLER OPERATOR us Dasha Conway NP LAB BLOOD ORDERABLES Final Re sult JOAN CORONEL [id number] [place] [address] * (ABNORMAL) Lipid panel (10/12/2024 3:00 PM BOILER/CHILLER OPERATOR) Cholesterol 207(H) 30 - 199 mg/dL [...] ratio 6 JOAN Blood 10/12/2024 3:00 PM BOILER/CHILLER OPERATOR 10/12/2024 8:24 PM BOILER/CHILLER OPERATOR Dasha Conway NP LAB BLOOD ORDERABLES Final Re sult Performing Organization Address [facility] Co de Phone Number JOAN CORONEL [address] [place] [address] * eGFR (08/23/2024 3:03 PM CDT) eGFR [...] ORDERABLES Final Re sult Performing Organization Address [facility] Co de Phone Number JOAN CORONEL [address] [place] [address] * Albumin Creatinine Ratio, Urine (08/23/2024 3:03 [...] ORDERABLES Final Re sult Performing Organization Address City/State/[facility] Co de Phone Number JOAN [address] [place] [address] * Hepatitis panel, acute (10/02/2019 3:33 PM BOILER/CHILLER OPERATOR) Hep A IgM NON-REACT DAVE NON-REACT DAVE [facility] [place] Comment: For additional information, please refer to http://[facility].Hita/faq/RJE401 (This link is being provided for informational/ [...] a test for HCV RNA (test code 23592) is suggested. For additional information please refer to http://[facility].Hita/faq/NGX36v0 (This link is being provided for informational/ educational purposes only.) 10/02/2019 3:33 PM BOILER/CHILLER OPERATOR 10/02/2019 3:35 PM BOILER/CHILLER OPERATOR Narrative Resulting Agency Comment Performing Organization Information: Site ID: [place] Name: [facility] Address: [address] [address] Director: Dustin Walter D.O., MPH [facility] - GE NERAL ORDERABLES Final Result [facility] [place] M[address] from Last 3 Months or Most Recently Relevant to Health Maintenance Insurance [employer] Care Teams Information Systems Security Specialist Relationship Specialty Start Date End Date Dasha Conway NP PCP - General Family Medicine 08/23/24 Donovan Parks MD Referring Physician Gastroenterology 06/12/21
--- OUTSIDE RECORDS SUMMARY | 2025-02-11 18:44 | XMS_ITS | Encounter Summary ---
Author Organization [facility] Address [address] [place] [address] Care Team Providers Care Internship Name Role Phone Dasha Conway [facility] Primary Care Provider [phone]- [phone] Encounter Details Date Type Department Care Team (Late st Contact Info) Description 06/16/2022 Pfeffermind Gamest Message Enc [facility] Medical Group Multispecialty Care - [address] [address] [address] [place] [address] [place] [address] [place] [address] [address] [place] [address] Diarrhea Social History Tobacco Use [...] Sex Assigned at Female 01/08/2021 9:43 AM FLIGHT TEST SHOP MECHANIC Legal Sex Female 5:13 PM CDT Gender Identity Female 01/08/2021 9:43 AM FLIGHT TEST SHOP MECHANIC Sexual Orientation Straight 01/08/2021 9: 43 AM FLIGHT TEST SHOP MECHANIC COVID-19 Exposure Response Date Recorded In [...] Rule Out 10/06/2022 10/06/2022 10/06/2022 1:21 PM FLIGHT TEST SHOP MECHANIC COVID-19 Rule Out 10/06/2022 10/06/2022 10/07/2022 3:34 PM FLIGHT TEST SHOP MECHANIC COVID-19 Rule Out 09/14/2023 09/14/2023 09/14/2023 3:48 PM CDT COVID-19 Rule Out 11/02/2024 11/02/2024 11/02/2024 4:03 PM FLIGHT TEST SHOP MECHANIC Assessment Noted Time PHQ-9 Depression Total Score: 4 06/22/20 22 3:34 PM CDT documented as of this encounter Care Teams Internship Relationship Specialty Start Date End Date Dasha Conway, FIELD SEISMOLOGIST- [address] [place] [address] PCP - General 11/02/24 documented as of this encounter
--- OUTSIDE RECORDS SUMMARY | 2025-02-11 18:44 | XMS_ITS | Encounter Summary ---
Author Organization [facility] Address [address] [place] [address] Care Team Providers Care Family Service Assistant Name Role Phone Dasha Conway [facility] Primary Care Provider [phone]- [phone] Encounter Details Date Type Department Care Team (Late st Contact Info) Description 11/09/2022 Predixion Softwaret Message Enc [facility] Medical Group Multispecialty Care - [place] [address] [address] [place] [address] [place] [address] [place] [address] [address] [place] [address] A1c Social History Tobacco Use [...] Sex Assigned at Female 01/08/2021 9:43 AM PRORATION CLERK Legal Sex Female 5:13 PM CDT Gender Identity Female 01/08/2021 9:43 AM PRORATION CLERK Sexual Orientation Straight 01/08/2021 9: 43 AM PRORATION CLERK COVID-19 Exposure Response Date Recorded In the last 10 days, have asif rodriguez been in contact with someone who was confirmed or suspected to have Coronavirus/COVID-19? No / Unsure 11/05/2022 9:02 AM PRORATION CLERK documented as of this encounter Functional Status [...] Rule Out 11/02/2024 11/02/2024 11/02/2024 4:03 PM PRORATION CLERK Assessment Noted Time PHQ-9 Depression Total Score: 11 022 12:00 PM PRORATION CLERK documented as of this encounter Care Teams Family Service Assistant Relationship Specialty Start Date End Date Dasha Conway FNP-BC [address] [place] [address] PCP - General 11/02/24 documented as of this encounter
--- OUTSIDE RECORDS SUMMARY | 2025-02-11 18:44 | XMS_ITS | Encounter Summary ---
Author Organization [facility] Address [address] [place] [address] Care Team Providers Care Dry Clipper Tender Name Role Phone Dasha Conway [facility] Primary Care Provider [phone]- [phone] Encounter Details Date Type Department Care Team (Late st Contact Info) Description 11/23/2022 LookTrackerhart Message Enc [facility] Medical Group Multispecialty Care - [place] [address] [address] [address] [place] [address] Curtis Diaz MD [address] [facility] [address] [place] [address] Palmar fascitis Social History Tobacco [...] Sex Assigned at Female 01/08/2021 9:43 AM ROLLOFF DRIVER Legal Sex Female 5:13 PM CDT Gender Identity Female 01/08/2021 9:43 AM ROLLOFF DRIVER Sexual Orientation Straight 01/08/2021 9: 43 AM ROLLOFF DRIVER COVID-19 Exposure Response Date Recorded In the last 10 days, have asif rodriguez been in contact with someone who was confirmed or suspected to have Coronavirus/COVID-19? No / Unsure 11/05/2022 9:02 AM ROLLOFF DRIVER documented as of this encounter Functional Status [...] Rule Out 11/02/2024 11/02/2024 11/02/2024 4:03 PM ROLLOFF DRIVER Assessment Noted Time PHQ-9 Depression Total Score: 11 022 12:00 PM ROLLOFF DRIVER documented as of this encounter Care Teams Dry Clipper Tender Relationship Specialty Start Date End Date Dahsa Conway FNP-BC [address] [place] [address] PCP - General 12/13/24 documented as of this encounter
--- OUTSIDE RECORDS SUMMARY | 2025-02-11 18:44 | XMS_ITS | Encounter Summary ---
Author Organization [facility] Address [address] [place] [address] Care Team Providers Care Pit Recorder Name Role Phone Dasha Conway [facility] Primary Care Provider [phone]- [phone] Encounter Details Date Type Department Care Team (Late st Contact Info) Description 07/27/2022 Thanxt Message Enc [facility] Medical Group Multispecialty Care - [place] [address] [address] [place] [address] [place] [address] [place] [address] [address] [place] [address] Chantix Social History Tobacco Use [...] Sex Assigned at Female 01/08/2021 9:43 AM KAIAKO KURA TUARUA Legal Sex Female 5:13 PM CDT Gender Identity Female 01/08/2021 9:43 AM KAIAKO KURA TUARUA Sexual Orientation Straight 01/08/2021 9: 43 AM KAIAKO KURA TUARUA COVID-19 Exposure Response Date Recorded In the [...] Rule Out 10/06/2022 10/06/2022 10/06/2022 1:21 PM KAIAKO KURA TUARUA COVID-19 Rule Out 10/06/2022 10/06/2022 10/07/2022 3:34 PM KAIAKO KURA TUARUA COVID-19 Rule Out 09/14/2023 09/14/2023 09/14/2023 3:48 PM CDT COVID-19 Rule Out 11/02/2024 11/02/2024 11/02/2024 4:03 PM KAIAKO KURA TUARUA Assessment Noted Time PHQ-9 Depression Total Score: 4 05/12/20 22 3:34 PM CDT documented as of this encounter Care Teams Pit Recorder Relationship Specialty Start Date End Date Dasha Conway, OBSTETRICS TECHNICIAN- [address] [place] [address] PCP - General 11/02/24 documented as of this encounter
--- OUTSIDE RECORDS SUMMARY | 2025-02-11 18:44 | XMS_ITS | Encounter Summary ---
Author Organization [facility] Address [address] [place] [address] Care Team Providers Care Senior Media Planner Name Role Phone Daryl Metzger MD Primary Care Provider Dasha Vicente [facility] Primary Care Provider [phone]- [phone] Encounter Details Date Type Department Care Team (Late st Contact Info) Description 08/24/2020 MyChart Message Enc [facility] Medical Group Multispecialty Care - [facility] [address] [facility] [place] [id number] Donovan Parks MD [address] [place] [address] Question Social History Tobacco Use Types Packs/Day Years Used Date Smoking Tobacco: Every Day Cigarettes Smokeless Tobacco: Never Alcohol Use Standard Drinks/Week Comments Not Currently 0 (1 standard drink = 0.6 oz pur e alcohol) PHQ-2 Answer Date Recorded PHQ-2 Score 3 06/23/2020 Comments No Sex and Gender Information Value Date Recorded Sex Assigned at Female 01/08/2021 9:43 AM HOT TAMALE MAN Legal Sex Female 5:13 PM CDT Gender Identity Female 01/08/2021 9:43 AM HOT TAMALE MAN Sexual Orientation Straight 01/08/2021 9: 43 AM HOT TAMALE MAN COVID-19 Exposure Response Date Recorded In the [...] Rule Out 12/16/2020 12/16/2020 12/17/2020 4:31 PM HOT TAMALE MAN COVID-19 Rule Out 06/05/2021 06/05/2021 06/05/2021 12:31 PM CDT COVID-19 Rule Out 10/23/2021 10/23/2021 10/23/2021 9:25 AM HOT TAMALE MAN COVID-19 Rule Out 10/23/2021 10/23/2021 10/24/2021 12:21 AM HOT TAMALE MAN COVID-19 Rule Out 01/15/2022 01/15/2022 01/20/2022 10:53 AM HOT TAMALE MAN COVID-19 Rule Out 04/21/2022 04/21/2022 04/21/2022 11:42 AM CDT COVID-19 Rule Out 04/21/2022 04/21/2022 04/26/2022 7:02 AM CDT COVID-19 Rule Out 10/06/2022 10/06/2022 10/06/2022 1:21 PM HOT TAMALE MAN COVID-19 Rule Out 10/06/2022 10/06/2022 10/07/2022 3:34 PM HOT TAMALE MAN COVID-19 Rule Out 09/14/2023 09/14/2023 09/14/2023 3:48 PM CDT COVID-19 Rule Out 11/02/2024 11/02/2024 11/02/2024 4:03 PM HOT TAMALE MAN Assessment Noted Time PHQ-9 Depression Total Score: 13 020 1:12 PM CDT documented as of this encounter Care Teams Senior Media Planner Relationship Specialty Start Date End Date Daryl Metzger MD PCP - General FAMILY MEDICINE SPORTS MEDICINE 08/20/20 10/09/20 Dasha Conway FNP- [address] [place] [address] PCP - General 11/02/24 documented as of this encounter
--- OUTSIDE RECORDS SUMMARY | 2025-02-11 18:44 | XMS_ITS | Encounter Summary ---
Author Organization [facility] Address [address] [place] [address] Care Team Providers Care Graphics Intern Name Role Phone Dasha Conway [facility] Primary Care Provider [phone]- [phone] Encounter Details Date Type Department Care Team (Late st Contact Info) Description 07/31/2022 Chimerixt Message Enc [facility] Medical Group Multispecialty Care - [place] [address] [address] [address] [place] [address] [place] [address] [place] [address] 157 [place] [address] Ashlie Social History Tobacco Use [...] Sex Assigned at Female 01/08/2021 9:43 AM HOTEL OR MOTEL MANAGER Legal Sex Female 5:13 PM CDT Gender Identity Female 01/08/2021 9:43 AM HOTEL OR MOTEL MANAGER Sexual Orientation Straight 01/08/2021 9: 43 AM HOTEL OR MOTEL MANAGER COVID-19 Exposure Response Date Recorded In [...] Rule Out 10/06/2022 10/06/2022 10/06/2022 1:21 PM HOTEL OR MOTEL MANAGER COVID-19 Rule Out 10/06/2022 10/06/2022 10/07/2022 3:34 PM HOTEL OR MOTEL MANAGER COVID-19 Rule Out 09/14/2023 09/14/2023 09/14/2023 3:48 PM CDT COVID-19 Rule Out 11/02/2024 11/02/2024 11/02/2024 4:03 PM HOTEL OR MOTEL MANAGER Assessment Noted Time PHQ-9 Depression Total Score: 4 05/12/20 3:34 PM CDT documented as of this encounter Care Teams Graphics Intern Relationship Specialty Start Date End Date Dasha Conway, FISHING FLOATS ASSEMBLER- [address] [place] [address] [phone] PCP - General 11/02/24 documented as of this encounter
--- OUTSIDE RECORDS SUMMARY | 2025-02-11 18:44 | XMS_ITS | Encounter Summary ---
Author Organization [facility] - [facility] Address [address] [place] [address] Care Team Providers Care Brick Carrier Name Role Phone Dasha Conway Erlin [facility] Primary Care Provider [phone]- [phone] Encounter Details Date Type Department Care Team (Latest Contact Info) Description 06/23/2022 Seismic Softwaret Message Enc [facility] Medical Group Multispecialty Care - [place] [address] [address] [address] [place] [address] Curtis Diaz MD [address] [facility] [address] [place] [address] ABD+PEL WWO [...] Sex Assigned at Female 01/08/2021 9:43 AM BORDER INSPECTOR Legal Sex Female 5:13 PM CDT Gender Identity Female 01/08/2021 9:43 AM BORDER INSPECTOR Sexual Orientation Straight 01/08/2021 9: 43 AM BORDER INSPECTOR COVID-19 Exposure Response Date Recorded In the [...] Rule Out 10/06/2022 10/06/2022 10/06/2022 1:21 PM BORDER INSPECTOR COVID-19 Rule Out 10/06/2022 10/06/2022 10/07/2022 3:34 PM BORDER INSPECTOR COVID-19 Rule Out 09/14/2023 09/14/2023 09/14/2023 3:48 PM CDT COVID-19 Rule Out 11/02/2024 11/02/2024 11/02/2024 4:03 PM BORDER INSPECTOR Assessment Noted Time PHQ-9 Depression Total Score: 4 05/12/20 22 3:34 PM CDT documented as of this encounter Care Teams Brick Carrier Relationship Specialty Start Date End Date Dasha Conway, MEDICAL ASSISTING PROGRAM DIRECTOR- [address] [place] [address] PCP - General 11/02/24 documented as of this encounter
--- OUTSIDE RECORDS SUMMARY | 2025-02-11 18:44 | XMS_ITS | Encounter Summary ---
Author Organization [facility] Address [address] [place] [address] Care Team Providers Care Social Services Designee Name Role Phone Daryl Metzger MD Primary Care Provider Bradley Gallegos MD Primary Care Provider [phone] Daryl Metzger MD Primary Care Provider Dasha Vicente [facility] Primary Care Provider [phone]- [phone] Encounter Details Date Type Department Care Team (Late st Contact Info) Description 06/27/2020 BIO-IVT Groupt Message Enc [facility] Medical Group [facility] [address] [place] [address] Daryl Metzger MD RE: Follow Up/Update Social [...] Sex Assigned at Female 01/08/2021 9:43 AM SCAFFOLD ERECTOR Legal Sex Female 5:13 PM CDT Gender Identity Female 01/08/2021 9:43 AM SCAFFOLD ERECTOR Sexual Orientation Straight 01/08/2021 9: 43 AM SCAFFOLD ERECTOR COVID-19 Exposure Response Date Recorded In the [...] Rule Out 12/16/2020 12/16/2020 12/17/2020 4:31 PM SCAFFOLD ERECTOR COVID-19 Rule Out 06/05/2021 06/05/2021 06/05/2021 12:31 PM CDT COVID-19 Rule Out 10/23/2021 10/23/2021 10/23/2021 9:25 AM SCAFFOLD ERECTOR COVID-19 Rule Out 10/23/2021 10/23/2021 10/24/2021 12:21 AM SCAFFOLD ERECTOR COVID-19 Rule Out 01/15/2022 01/15/2022 01/20/2022 10:53 AM SCAFFOLD ERECTOR COVID-19 Rule Out 04/21/2022 04/21/2022 04/21/2022 11:42 AM CDT COVID-19 Rule Out 04/21/2022 04/21/2022 04/26/2022 7:02 AM CDT COVID-19 Rule Out 10/06/2022 10/06/2022 10/06/2022 1:21 PM SCAFFOLD ERECTOR COVID-19 Rule Out 10/06/2022 10/06/2022 10/07/2022 3:34 PM SCAFFOLD ERECTOR COVID-19 Rule Out 09/14/2023 09/14/2023 09/14/2023 3:48 PM CDT COVID-19 Rule Out 11/02/2024 11/02/2024 11/02/2024 4:03 PM SCAFFOLD ERECTOR Assessment Noted Time PHQ-9 Depression Total Score: 13 020 1:12 PM CDT documented as of this encounter Care Teams Social Services Designee Relationship Specialty Start Date End Date Daryl Metzger MD PCP - General FAMILY MEDICINE SPORTS MEDICINE 06/23/20 08/12/20 Bradley Carmichael MD [address] [place] [address] MEDICAL OFFICE BUILDING [address] [place] [address] PCP - General INTERNAL MEDICINE 08/13/20 08/19/20 Daryl Metzger MD PCP - General FAMILY MEDICINE SPORTS MEDICINE 08/20/20 10/09/20 Dasha Conway, FREIGHT CAR BUILDER- [address] [place] [address] PCP - General 11/02/24 documented as of this encounter
--- OUTSIDE RECORDS SUMMARY | 2025-02-11 18:44 | XMS_ITS | Encounter Summary ---
Author Organization [facility] - [facility] Address [address] [place] [address] Care Team Providers Care Foreign Language Instructor Name Role Phone Dasha Conway [facility] Primary Care Provider [phone]- [phone] Encounter Details Date Type Department Care Team (Late st Contact Info) Description 07/21/2022 Sjappert Message Enc [facility] Medical Group Multispecialty Care - [place] [address] [address] [address] [place] [address] [place] [address] [place] [address] 157 [place] [address] Covid Social History Tobacco Use [...] Sex Assigned at Female 01/08/2021 9:43 AM GIN POLE OPERATOR Legal Sex Female 5:13 PM CDT Gender Identity Female 01/08/2021 9:43 AM GIN POLE OPERATOR Sexual Orientation Straight 01/08/2021 9: 43 AM GIN POLE OPERATOR COVID-19 Exposure Response Date Recorded In [...] Rule Out 10/06/2022 10/06/2022 10/06/2022 1:21 PM GIN POLE OPERATOR COVID-19 Rule Out 10/06/2022 10/06/2022 10/07/2022 3:34 PM GIN POLE OPERATOR COVID-19 Rule Out 09/14/2023 09/14/2023 09/14/2023 3:48 PM CDT COVID-19 Rule Out 11/02/2024 11/02/2024 11/02/2024 4:03 PM GIN POLE OPERATOR Assessment Noted Time PHQ-9 Depression Total Score: 4 05/12/20 22 3:34 PM CDT documented as of this encounter Care Teams Foreign Language Instructor Relationship Specialty Start Date End Date Dasha Conway, [facility]- [address] [place] [address] PCP - General 11/02/24 documented as of this encounter
--- OUTSIDE RECORDS SUMMARY | 2025-02-11 18:44 | XMS_ITS | Encounter Summary ---
Author Organization [facility] Address [address] [place] [address] Care Team Providers Care Cleaner Assistant Name Role Phone Dasha Conway Erlin [facility] Primary Care Provider [phone]- [phone] Encounter Details Date Type Department Care Team (Late st Contact Info) Description 06/15/2022 Modern Feedt Message Enc [facility] Medical Group Multispecialty Care - [place] [address] [address] [address] [place] [address] [place] [address] [place] [address] 157 [place] [address] Toujerikki Social History Tobacco Use [...] Sex Assigned at Female 01/08/2021 9:43 AM GOLF CLUB WEIGHTER Legal Sex Female 5:13 PM CDT Gender Identity Female 01/08/2021 9:43 AM GOLF CLUB WEIGHTER Sexual Orientation Straight 01/08/2021 9: 43 AM GOLF CLUB WEIGHTER COVID-19 Exposure Response Date Recorded In the [...] Rule Out 10/06/2022 10/06/2022 10/06/2022 1:21 PM GOLF CLUB WEIGHTER COVID-19 Rule Out 10/06/2022 10/06/2022 10/07/2022 3:34 PM GOLF CLUB WEIGHTER COVID-19 Rule Out 09/14/2023 09/14/2023 09/14/2023 3:48 PM CDT COVID-19 Rule Out 11/02/2024 11/02/2024 11/02/2024 4:03 PM GOLF CLUB WEIGHTER Assessment Noted Time PHQ-9 Depression Total Score: 4 05/12/20 22 3:34 PM CDT documented as of this encounter Care Teams Cleaner Assistant Relationship Specialty Start Date End Date Dasha Conway, CARBON PRINTER- [address] [place] [address] PCP - General 11/02/24 documented as of this encounter
--- OUTSIDE RECORDS SUMMARY | 2025-02-11 18:44 | XMS_ITS | Encounter Summary ---
Author Organization [facility] - [facility] Address [address] [place] [address] Care Team Providers Care Cattle Dipper Name Role Phone Dasha Conway Erlin [facility] Primary Care Provider [phone]- [phone] Encounter Details Date Type Department Care Team (Late st Contact Info) Description 10/08/2022 Rheti Inct Message Enc [facility] Medical Group Multispecialty Care - [place] [address] [address] [address] [place] [address] [place] [address] [place] [address] 157 [place] [address] Hands and feet Social History [...] Sex Assigned at Female 01/08/2021 9:43 AM ER MANAGER Legal Sex Female 5:13 PM CDT Gender Identity Female 01/08/2021 9:43 AM ER MANAGER Sexual Orientation Straight 01/08/2021 9: 43 AM ER MANAGER COVID-19 Exposure Response Date Recorded In the last 10 days, have asif rodriguez been in contact with someone who was confirmed or suspected to have Coronavirus/COVID-19? No / Unsure 10/06/2022 12:33 PM ER MANAGER documented as of this encounter Functional Status [...] Rule Out 11/02/2024 11/02/2024 11/02/2024 4:03 PM ER MANAGER Assessment Noted Time PHQ-9 Depression Total Score: 4 05/12/20 22 3:34 PM CDT documented as of this encounter Care Teams Cattle Dipper Relationship Specialty Start Date End Date Dasha Conway FNP-STEPH [address] [place] [address] [phone] PCP - General 11/02/24 documented as of this encounter
--- OUTSIDE RECORDS SUMMARY | 2025-02-11 18:44 | XMS_ITS | Encounter Summary ---
Author Organization [facility] - [facility] Address [address] [place] [address] Care Team Providers Care Steel Rule Die Maker Name Role Phone Dasha Conway [facility] Primary Care Provider +1- [phone] Encounter Details Date Type Department Care Team (Latest Contact Info) Description 06/22/2022 Common Curriculumt Message Enc [facility] Medical Group Multispecialty Care - [place] [address] [address] [address] [place] [address] [place] [address] [place] [address] 157 [place] [address] Keep appointment? Social History Tobacco [...] Sex Assigned at Female 01/08/2021 9:43 AM PASTING INSPECTOR Legal Sex Female 5:13 PM CDT Gender Identity Female 01/08/2021 9:43 AM PASTING INSPECTOR Sexual Orientation Straight 01/08/2021 9: 43 AM PASTING INSPECTOR COVID-19 Exposure Response Date Recorded In [...] Rule Out 10/06/2022 10/06/2022 10/06/2022 1:21 PM PASTING INSPECTOR COVID-19 Rule Out 10/06/2022 10/06/2022 10/07/2022 3:34 PM PASTING INSPECTOR COVID-19 Rule Out 09/14/2023 09/14/2023 09/14/2023 3:48 PM CDT COVID-19 Rule Out 11/02/2024 11/02/2024 11/02/2024 4:03 PM PASTING INSPECTOR Assessment Noted Time PHQ-9 Depression Total Score: 4 05/12/20 3:34 PM CDT documented as of this encounter Care Teams Steel Rule Die Maker Relationship Specialty Start Date End Date Dasha Conway, MELTING OPERATOR- [address] [place] [address] PCP - General 11/02/24 documented as of this encounter
--- OUTSIDE RECORDS SUMMARY | 2025-02-11 18:44 | XMS_ITS | Encounter Summary ---
Author Organization [facility] Address [facility] [place] [address] Care Team Providers Care Snowboard Designer Name Role Phone Daryl Metzger MD Primary Care Provider Bradley Gallegos MD Primary Care Provider [phone] Daryl Metzger MD Primary Care Provider Dasha Vicente [facility] Primary Care Provider [phone]- [phone] Encounter Details Date Type Department Care Team (Late st Contact Info) Description 08/07/2020 [employer]t Message Enc [facility] Medical Group [facility] Medicine [facility] [address] [place] [address] Daryl Metzger MD RE: Follow Up/Update Social [...] Sex Assigned at Female 01/08/2021 9:43 AM POISON INFORMATION SPECIALIST Legal Sex Female 5:13 PM CDT Gender Identity Female 01/08/2021 9:43 AM POISON INFORMATION SPECIALIST Sexual Orientation Straight 01/08/2021 9: 43 AM POISON INFORMATION SPECIALIST COVID-19 Exposure Response Date Recorded In [...] Rule Out 12/16/2020 12/16/2020 12/17/2020 4:31 PM POISON INFORMATION SPECIALIST COVID-19 Rule Out 06/05/2021 06/05/2021 06/05/2021 12:31 PM CDT COVID-19 Rule Out 10/23/2021 10/23/2021 10/23/2021 9:25 AM POISON INFORMATION SPECIALIST COVID-19 Rule Out 10/23/2021 10/23/2021 10/24/2021 12:21 AM POISON INFORMATION SPECIALIST COVID-19 Rule Out 01/15/2022 01/15/2022 01/20/2022 10:53 AM POISON INFORMATION SPECIALIST COVID-19 Rule Out 04/21/2022 04/21/2022 04/21/2022 11:42 AM CDT COVID-19 Rule Out 04/21/2022 04/21/2022 04/26/2022 7:02 AM CDT COVID-19 Rule Out 10/06/2022 10/06/2022 10/06/2022 1:21 PM POISON INFORMATION SPECIALIST COVID-19 Rule Out 10/06/2022 10/06/2022 10/07/2022 3:34 PM POISON INFORMATION SPECIALIST COVID-19 Rule Out 09/14/2023 09/14/2023 09/14/2023 3:48 PM CDT COVID-19 Rule Out 11/02/2024 11/02/202411/0211/02/2024 4:03 PM POISON INFORMATION SPECIALIST Assessment Noted Time PHQ-9 Depression Total Score: 13 020 1:12 PM CDT documented as of this encounter Care Teams Snowboard Designer Relationship Specialty Start Date End Date Daryl Metzger MD PCP - General FAMILY MEDICINE SPORTS MEDICINE 06/23/20 08/12/20 Bradley Carmichael MD [address] [place] [address] MEDICAL OFFICE BUILDING 2 [place] [address] PCP - General INTERNAL MEDICINE 08/13/20 08/19/20 Daryl Metzger MD PCP - General FAMILY MEDICINE SPORTS MEDICINE 08/20/20 10/09/20 Dasha Conway FNP- [address] [place] [address] PCP - General 11/02/24 documented as of this encounter
--- OUTSIDE RECORDS SUMMARY | 2025-02-11 18:44 | XMS_ITS | Encounter Summary ---
Author Organization [facility] Address [address] [place] [address] Care Team Providers Care Cemetery Workers Supervisor Name Role Phone Daryl Metzger MD Primary Care Provider Dahsa Vicente [facility] Primary Care Provider [phone]- [phone] Encounter Details Date Type Department Care Team (Late st Contact Info) Description 08/25/2020 MyChart Message Enc [facility] Medical Group Multispecialty Care - [facility] [address] [facility] [address] [place] [id number] Donovan Parks MD [address] [place] [address] RE: Question Social History Tobacco Use Types Packs/Day Years Used Date Smoking Tobacco: Every Day Cigarettes Smokeless Tobacco: Never Alcohol Use Standard Drinks/Week Comments Not Currently 0 (1 standard drink = 0.6 oz pur e alcohol) PHQ-2 Answer Date Recorded PHQ-2 Score 3 06/23/2020 Comments No Sex and Gender Information Value Date Recorded Sex Assigned at Female 01/08/2021 9:43 AM LAYER OUT PLATE GLASS Legal Sex Female 5:13 PM CDT Gender Identity Female 01/08/2021 9:43 AM LAYER OUT PLATE GLASS Sexual Orientation Straight 01/08/2021 9: 43 AM LAYER OUT PLATE GLASS COVID-19 Exposure Response Date Recorded In the [...] Rule Out 12/16/2020 12/16/2020 12/17/2020 4:31 PM LAYER OUT PLATE GLASS COVID-19 Rule Out 06/05/2021 06/05/2021 06/05/2021 12:31 PM CDT COVID-19 Rule Out 10/23/2021 10/23/2021 10/23/2021 9:25 AM LAYER OUT PLATE GLASS COVID-19 Rule Out 10/23/2021 10/23/2021 10/24/2021 12:21 AM LAYER OUT PLATE GLASS COVID-19 Rule Out 01/15/2022 01/15/2022 01/20/2022 10:53 AM LAYER OUT PLATE GLASS COVID-19 Rule Out 04/21/2022 04/21/2022 04/21/2022 11:42 AM CDT COVID-19 Rule Out 04/21/2022 04/21/2022 04/26/2022 7:02 AM CDT COVID-19 Rule Out 10/06/2022 10/06/2022 10/06/2022 1:21 PM LAYER OUT PLATE GLASS COVID-19 Rule Out 10/06/2022 10/06/2022 10/07/2022 3:34 PM LAYER OUT PLATE GLASS COVID-19 Rule Out 09/14/2023 09/14/2023 09/14/2023 3:48 PM CDT COVID-19 Rule Out 11/02/2024 11/02/2024 11/02/2024 4:03 PM LAYER OUT PLATE GLASS Assessment Noted Time PHQ-9 Depression Total Score: 13 020 1:12 PM CDT documented as of this encounter Care Teams Cemetery Workers Supervisor Relationship Specialty Start Date End Date Daryl Metzger MD PCP - General FAMILY MEDICINE SPORTS MEDICINE 08/20/20 10/09/20 Dasha Conway FNP- [address] [place] [address] PCP - General 11/02/24 documented as of this encounter
--- OUTSIDE RECORDS SUMMARY | 2025-02-11 18:44 | XMS_ITS | Encounter Summary ---
Author Organization [facility] Address [address] [place] [address] Care Team Providers Care Aircraft Refueller Name Role Phone Donovan Parks MD Unavailable Dasha Conway NP Primary Care Provider [phone] Reason for Visit * Reason Onset Date Comments Abdominal Pain 02/11/2025 Encounter Details Date Type Department Care Team (Late st Contact Info) Description 02/11/2025 Nurse Triage [facility] Medical Group Primary Care at [address] [address] Dasha Conway NP [address] [place] [address] [address] [place] [address] Social History Tobacco Use Types [...] on file Legal Sex Female 3:37 AM CENTRAL SCHEDULER Gender Identity Female 10/02/2019 1:12 AM CENTRAL SCHEDULER Sexual Orientation Straight 10/02/2019 1: 12 AM CENTRAL SCHEDULER Occupation Industry Job Start Date Job End [...] irregularly or very rapidly Protocols used: Chest Jimd-Sdwor-OD * Telephone Encounter - Deidre Kaur RN [...] on filedocumented in this encounter Care Teams Aircraft Refueller Relationship Specialty Start Date End Date Dasha Conway NP PCP - General Family Medicine 08/23/24 Donovan Parks MD Referring Physician Gastroenterology 06/12/21 documented as of this encounter
--- OUTSIDE RECORDS SUMMARY | 2025-02-11 18:44 | XMS_ITS | Encounter Summary ---
Author Organization [facility] - [facility] Address [address] [place] [address] Care Team Providers Care Library Associate Name Role Phone Dasha Conway [facility] Primary Care Provider [phone]- [phone] Encounter Details Date Type Department Care Team (Late st Contact Info) Description 12/03/2022 Solace Lifesciences[employer] Message Enc [facility] Medical Group Multispecialty Care - [place] [address] [address] [address] [place] [address] [place] [address] [place] [address] 157 [place] [address] Blood sugar Social History Tobacco [...] Sex Assigned at Female 01/08/2021 9:43 AM AUTOMOBILE SALESMAN Legal Sex Female 5:13 PM CDT Gender Identity Female 01/08/2021 9:43 AM AUTOMOBILE SALESMAN Sexual Orientation Straight 01/08/2021 9: 43 AM AUTOMOBILE SALESMAN COVID-19 Exposure Response Date Recorded In the last 10 days, have asif rodriguez been in contact with someone who was confirmed or suspected to have Coronavirus/COVID-19? No / Unsure 12/03/2022 10:51 AM AUTOMOBILE SALESMAN documented as of this encounter Functional Status [...] Rule Out 11/02/2024 11/02/2024 11/02/2024 4:03 PM AUTOMOBILE SALESMAN Assessment Noted Time PHQ-9 Depression Total Score: 11 022 12:00 PM AUTOMOBILE SALESMAN documented as of this encounter Care Teams Library Associate Relationship Specialty Start Date End Date Dasha Conway FNP-BC [address] [place] [address] PCP - General 11/02/24 documented as of this encounter
--- OUTSIDE RECORDS SUMMARY | 2025-02-11 18:44 | XMS_ITS | Encounter Summary ---
Author Organization [facility] - [facility] Address [address] [place] [address] Care Team Providers Care Section Leader Screen Printing Name Role Phone Dasha Conway [facility] Primary Care Provider [phone]- [phone] Encounter Details Date Type Department Care Team (Late st Contact Info) Description 06/23/2022 SendHubt Message Enc [facility] Medical Group Multispecialty Care - [place] [address] [address] [address] [place] [address] Curtis Diaz MD [address] [facility] [address] [place] [address] Liver pain? Social History Tobacco [...] Sex Assigned at Female 01/08/2021 9:43 AM BOMBSIGHT SPECIALIST Legal Sex Female 5:13 PM CDT Gender Identity Female 01/08/2021 9:43 AM BOMBSIGHT SPECIALIST Sexual Orientation Straight 01/08/2021 9: 43 AM BOMBSIGHT SPECIALIST COVID-19 Exposure Response Date Recorded In [...] Rule Out 10/06/2022 10/06/2022 10/06/2022 1:21 PM BOMBSIGHT SPECIALIST COVID-19 Rule Out 10/06/2022 10/06/2022 10/07/2022 3:34 PM BOMBSIGHT SPECIALIST COVID-19 Rule Out 09/14/2023 09/14/2023 09/14/2023 3:48 PM CDT COVID-19 Rule Out 11/02/2024 11/02/2024 11/02/2024 4:03 PM BOMBSIGHT SPECIALIST Assessment Noted Time PHQ-9 Depression Total Score: 4 05/12/20 3:34 PM CDT documented as of this encounter Care Teams Section Leader Screen Printing Relationship Specialty Start Date End Date Dasha Conway, TOWER ATTENDANT- [address] [place] [address] [id number] PCP - General 11/02/24 documented as of this encounter
--- OUTSIDE RECORDS SUMMARY | 2025-02-11 18:44 | XMS_ITS | Encounter Summary ---
Author Organization [facility] System Address [address] [place] [address] Care Team Providers Care Cardroom Attendant Name Role Phone Dasha Conway Erlin [facility] Primary Care Provider [phone]- [phone] Encounter Details Date Type Department Care Team (Late st Contact Info) Description 10/10/2022 [employer] Document Solutionst Message Enc [facility] Medical Group Multispecialty Care - [place] [address] [address] [address] [place] [address] [place] [address] [place] [address] 157 [place] [address] Yeast infection Social History Tobacco [...] Sex Assigned at Female 01/08/2021 9:43 AM AGRICULTURE CONSULTANT Legal Sex Female 5:13 PM CDT Gender Identity Female 01/08/2021 9:43 AM AGRICULTURE CONSULTANT Sexual Orientation Straight 01/08/2021 9: 43 AM AGRICULTURE CONSULTANT COVID-19 Exposure Response Date Recorded In the last 10 days, have asif rodriguez been in contact with someone who was confirmed or suspected to have Coronavirus/COVID-19? No / Unsure 10/06/2022 12:33 PM AGRICULTURE CONSULTANT documented as of this encounter Functional [...] Rule Out 11/02/2024 11/02/2024 11/02/2024 4:03 PM AGRICULTURE CONSULTANT Assessment Noted Time PHQ-9 Depression Total Score: 4 05/12/20 22 3:34 PM CDT documented as of this encounter Care Teams Cardroom Attendant Relationship Specialty Start Date End Date Dasha Conway FNP-STEPH [address] [place] [address] [phone] PCP - General 11/02/24 documented as of this encounter
--- OUTSIDE RECORDS SUMMARY | 2025-02-11 18:44 | XMS_ITS | Referral Summary ---
Author Organization [facility] [address] Address [address] [place] [address] Care Team Providers Care Ground Control Approach Technician Name Role Phone Donovan Parks MD Unavailable Dasha Conway NP Primary Care Provider [phone] Encounters Date Type Department Care Team Description 02/11/2025 Nurse Triage [facility] Primary Care at [address] [address] Dasha Conway NP 02/08/2025 Orders Only [place] Supervisor Braiding at [address] [place] [phone] Sheba Moya NP Tachycardia (Primary Dx); Palpitations 01/04/2025 2:15 PM GRAIN SPOUTER Office Visit [place] Super[facility] Braiding at [address] [place] [phone] Sheba Moya NP Pericardial effusion (Primary Dx); Other chest pain; Mixed hyperlipidemia; Family history of cardiovascular disease 01/01/2025 12:44 PM GRAIN SPOUTER - 01/01/2025 11:59 PM GRAIN SPOUTER Hospital Encounter [facility] [address] [place] [address] Breast pain Discharge Disposition: Discharge to home [...] 11/06/2024 Assessment & Plan (11/06/2024 3:13 PM GRAIN SPOUTER): Myocardial ischemia ruled out. Differential also includes [...] 10/10/2024 Assessment & Plan (10/10/2024 9:05 PM GRAIN SPOUTER): States that she has tried multiple medications in the past and she doesn't like any of them. Doesn't do well with them. Does not wish to try further treatment. Fatigue 10/10/2024 Assessment & Plan (10/10/2024 9:06 PM GRAIN SPOUTER): Concern for M.S. will get updated MRI [...] 08/23/2024 Assessment & Plan (10/10/2024 9:03 PM GRAIN SPOUTER): Stable. Not currently on medication. A1c has been 6.1% . Will continue to monitor Assessment & Plan (08/27/2024 7:48 AM CDT): Well controlled without medication. A1c 6%. Recent labs done at [facility]. MTHFR mutation 01/28/2020 Pericardial effusion 10/04/2019 Overview (10/04/2019): Echo (08/12/18): moderate pericardial effusion with no evidence of tamponade. EF 60-70% Echo (08/22/18) trivial (barely visible) pericardial effusion, EF 50-55% Assessment & Plan (11/06/2024 3:07 PM GRAIN SPOUTER): Small pericardial effusion seen on echo done at [facility], which appears to be an improvement over [...] pulm Assessment & Plan (11/06/2024 3:09 PM GRAIN SPOUTER): Has been told she has has fibromyalgia in the past. Differential includes a fibromyalgia flare. She had received an Rx for Decadron from the ER at [facility] in [place], I encouraged her to go pick that up from the pharmacy and try that this week Assessment & Plan (12/14/2021 11:42 AM GRAIN SPOUTER): We had started LDN in 03/2020 however [...] to her PCP. Will give referral to [facility] pain program in [place], [place]. Assessment & Plan (11/30/2021 3:33 PM GRAIN SPOUTER): Last seen in 03/2020 after being lost [...] benefit and potential interaction with Dulera per fly maker. Started LDN 4.5mg daily on 04/12/2020. Denies side effects but also denies any benefit at this time. Still complaining of severe generalized pain, fatigue, and insomnia. States dilaudid BID helps her hand pain. Recommend she follow up with pcp as they were originally prescribing this. Will also give referral to [facility] pain management. Continue LDN 4.5mg daily and give this more time tot take effect. Avoid Cymbalta and amitriptyline as patient reports suicidal ideation with antidepressants in the past. Failed gabapentin and had side effects to Lyrica. Follow up in 4-6 weeks. Sooner if needed. Discussed with Dr. Soler. Assessment & Plan (01/08/2020 3:02 PM GRAIN SPOUTER): Tolerating flexeril 10mg BID and reports some [...] Soler. Assessment & Plan (12/26/2019 10:32 AM GRAIN SPOUTER): Tolerating tizanidine 4mg TID and notes some [...] office. Assessment & Plan (11/28/2019 12:40 PM GRAIN SPOUTER): Tolerating tizanidine 2mg BID and feels it [...] needed. Assessment & Plan (10/16/2019 4:20 PM GRAIN SPOUTER): US right hand/wrist (10/09/19):Mild effusions and power doppler on examination which will have to be correlated clinically. Grade 1 power doppler in the wrist and radial/scaphoid joint. Grade 1 effusion in the 3rd PIP joint. An enlarged median nerve is identified. Serologies revealed an elevated WBC (15.1), however other serological testing was unremarkable. Radiographs from previous saw cleaner revealed mild degenerative changes in the lumbar [...] Soler. Assessment & Plan (10/02/2019 4:02 PM GRAIN SPOUTER): Patient presents with widespread pain in her hands, knees, and feet for the past 3-4 months. Has generalized pruritic, red papules on torso. Reports photosensitivity, pleuritic pains, cough however is a smoker, dry eyes and mouth, and oral ulcers. Currently on prednisone 20mg taper without any improvement of her symptoms. Synovitis with tenderness noted on peripheral joint exam. Soft tissue tenderness noted [id number] back on exam. FHx of 2 sisters with fibromyalgia and mother with psoriatic arthritis. Had x-rays through previous rheum which were scanned into Epic today. Previous serologies were also unremarkable. Symptoms and exam are suspicious for fibromyalgia. Because recent CY was negative per previous saw cleaner, it makes the possibility of SLE less likely. Will order appropriate serologies and a right hand/wrist US to further evaluate. Recommend patient see dermatology for rash. Follow up in 2 weeks. Sooner if needed. Seen with Dr. Soler. COPD (chronic obstructive pulmonary disease) Abnormal thyroid function test 01/03/2018 Assessment & Plan (01/03/2018 4:31 PM GRAIN SPOUTER): Differential would include euthroid sick syndrome, Subclinical [...] 01/17/2015 Assessment & Plan (11/06/2024 3:09 PM GRAIN SPOUTER): Differential also includes asthma. She has an [...] unchanged. Assessment & Plan (12/14/2021 11:43 AM GRAIN SPOUTER): Repeat serologies with [facility] revealed only a [...] currently on Xarelto. Will give referral to [facility] pain program. Discussed scheduling f/u in 4 months however there is not much in terms of treatment management that we would be able to offer at this point. Patient spoke with Dr. Soler as well. Assessment & Plan (11/30/2021 3:33 PM GRAIN SPOUTER): Previously reported photosensitivity, pleuritic pains, cough however [...] time. Assessment & Plan (01/08/2020 1:59 PM GRAIN SPOUTER): Reports photosensitivity, pleuritic pains, cough however is a smoker, dry eyes and mouth, and oral ulcers. Repeat AVISE revealed a low positive RF, however no obvious synovitis noted on exam today and previous US was unremarkable. Symptoms do not respond to steroids. Assessment & Plan (12/26/2019 10:35 AM GRAIN SPOUTER): Reports photosensitivity, pleuritic pains, cough however is [...] 08/23/2024 Assessment & Plan (12/14/2021 11:09 AM GRAIN SPOUTER): C/o red, pruritic papules over torso. FHx of mother with psoriatic arthritis. Pictures of rash on back sent via [employer] appear hive-like and do not have any erythema or notable scale. Recommend f/u with a aix system administrator. Assessment & Plan (11/30/2021 3:31 PM GRAIN SPOUTER): C/o red, pruritic papules over torso. FHx of mother with psoriatic arthritis. Recommend f/u with dermatology. Assessment & Plan (04/15/2020 10:19 AM CDT): Previous exam noted dry flaky, skin on hands with red demarcation around wrists suspicious for psoriasis. Now patient complaining of scaling rash on scalp. FHx of mother with psoriatic arthritis. Assessment & Plan (01/08/2020 1:58 PM GRAIN SPOUTER): Previous exam noted dry flaky, skin on hands with red demarcation around wrists suspicious for psoriasis. Now patient complaining of scaling rash on scalp. FHx of mother with psoriatic arthritis. Assessment & Plan (12/26/2019 10:21 AM GRAIN SPOUTER): Previous exam noted dry flaky, skin on hands with red demarcation around wrists suspicious for psoriasis. Now patient complaining of scaling rash on scalp. FHx of mother with psoriatic arthritis. Assessment & Plan (11/28/2019 12:41 PM GRAIN SPOUTER): Rash improved once prednisone was stopped. Saw aix system administrator Dr. Evelyn Gonzales who gave patinet triamcinalone cream, however patient has not started this as her rash is mostly on her face now. Previous exam noted dry, flaky skin on hands with red demarcation around wrists which is suspicious for psoriasis. FHx of mother with psoriatic arthritis. Patient given aix system administrator Dr. Rose's information at previous visit. Assessment & Plan (10/16/2019 1:57 PM GRAIN SPOUTER): Rash improved once prednisone was stopped. Saw aix system administrator Dr. Evelyn Gonzales who gave patinet triamcinalone cream, however patient has not started this as her rash is mostly on her face now. Today notes dry, flaky skin on hands with red demarcation around wrists which is suspicious for psoriasis. FHx of mother with psoriatic arthritis. Patient given aix system administrator Dr. Rose's information for further evaluation. 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 Not on file Not on file Last Filed Vital Signs Vital Sign Reading Time Taken Comments Blood Pressure 134/81 01/04/2025 2:14 PM GRAIN SPOUTER Pulse 66 01/04/2025 2:14 PM GRAIN SPOUTER Temperature 37 C (98.6 F) 11/01/2024 2:35 PM GRAIN SPOUTER Respiratory Rate 18 01/04/2025 2:14 PM GRAIN SPOUTER Oxygen Saturation 99% 11/01/2024 2:35 PM GRAIN SPOUTER Inhaled Oxygen Concentration - - Weight 69.4 kg (153 lb) 01/04/2025 2:14 PM GRAIN SPOUTER Height 160 cm (5' 3 ) 01/04/2025 2:14 PM GRAIN SPOUTER Body Mass Index 27.1 01/04/2025 2:14 PM GRAIN SPOUTER Plan of Treatment Not on file Procedures Procedure Name Priority Date/Time Associated Diagnosis Comments DIAGNOSTIC MAMMOGRAM BILATERAL W MARQUIS Schedule Routine, Read Routine (OP Routine) 01/01/2025 1:13 PM GRAIN SPOUTER Breast pain HEMOGLOBIN A1C Routine 10/12/2024 3:00 PM GRAIN SPOUTER Type 2 diabetes mellitus without complication, without long-term current use of insulin (HCC) LIPID PANEL Routine 10/12/2024 3:00 PM GRAIN SPOUTER Type 2 diabetes mellitus without complication, without long-term current use of insulin (HCC) EGFR Routine 08/23/2024 3:03 PM CDT Type 2 diabetes mellitus without complication, without long-term current use of insulin (HCC) ALBUMIN CREATININE RATIO, URINE Routine 08/23/2024 3:03 PM CDT Type 2 diabetes mellitus without complication, without long-term current use of insulin (HCC) HEPATITIS PANEL, ACUTE Routine 10/02/2019 3:33 PM GRAIN SPOUTER from Last 3 Months or Most Recently Relevant to Health Maintenance Results * Diagnostic Mammogram Bilateral W Marquis (01/01/2025 1:13 PM GRAIN SPOUTER) Anatomical Region Laterality Modality Breast Bilateral Mammography 01/01/2025 1:27 PM GRAIN SPOUTER Impressions 01/01/2025 1:27 PM GRAIN SPOUTER No evidence of malignancy. Follow-up in 1 year with screening mammography is recommended. BI-RADS: 1 - Negative. The patient has been or will be contacted. The patient will be entered into a reminder system with a target due date of 1 year for her next mammogram. Electronically signed by: Ifrah Serrano M.D. Narrative 01/01/2025 1:27 PM GRAIN SPOUTER EXAMINATION: DIAGNOSTIC MAMMOGRAM BILATERAL W MARQUIS ORDERING [...] * (ABNORMAL) Hemoglobin A1c (10/12/2024 3:00 PM GRAIN SPOUTER) Hgb A1C 6.1(H) 4.0 - 5.6 % Estimated Average Glucose 128 mg/dL [facility] Comment: The ADA recommends reporting an estimated Average Glucose (eAG) with all Hemoglobin A1c results using the equation derived from a study of 507 normal and diabetic adults. Minority populations were underrepresented and children were not included. (Diabetes Care 31:3412-9789, 2008). The eAG is not equivalent to a fasting glucose. Blood 10/12/2024 3:00 PM GRAIN SPOUTER 10/12/2024 8:24 PM GRAIN SPOUTER Dahsa Conway NP LAB BLOOD ORDERABLES Final Re sult JOAN CORON[facility] [id number] Department [place] [address] * (ABNORMAL) Lipid panel (10/12/2024 3:00 PM GRAIN SPOUTER) Cholesterol 207(H) 30 - 199 mg/dL Comment: [...] ratio 6 JOAN Blood 10/12/2024 3:00 PM GRAIN SPOUTER 10/12/2024 8:24 PM GRAIN SPOUTER Dasha Conway NP LAB BLOOD ORDERABLES Final Re sult JOAN [address] Department of Laboratories [place], [place] [id number] * eGFR (08/23/2024 3:03 PM CDT) eGFR [...] ORDERABLES Final Re sult Performing Organization Address [facility] Co de Phone Number VICKYCLIFTON CORONEL [address] [place] [address] * Albumin Creatinine Ratio, Urine [...] ORDERABLES Final Re sult Performing Organization Address [facility] Co de Phone Number VICKYCLIFTON CORONEL [address] [place] [address] * Hepatitis panel, acute (10/02/2019 3:33 PM GRAIN SPOUTER) Hep A IgM NON-REACT DAVE NON-REACT DAVE [facility] [place] Comment: For additional information, please refer to http://education.[employer].TurboTranslations/faq/XXN664 (This link is being provided for informational/ [...] a test for HCV RNA (test code 62770) is suggested. For additional information please refer to http://education.[employer]/faq/DAD86b6 (This link is being provided for informational/ educational purposes only.) 10/02/2019 3:33 PM GRAIN SPOUTER 10/02/2019 3:35 PM GRAIN SPOUTER Narrative Resulting Agency Comment Performing Organization Information: Site ID: [id number] Name: [facility]ia [facility] Address: [address] [place] [address] CARMELITA Cartagena [address] Director: Dustin Walter D.O., MPH [facility] - NERAL ORDERABLES Final Result CARMELITA Gutierrez from Last 3 Months or Most Recently Relevant to Health Maintenance Insurance [facility] MEDIC[facility] Address: [facility] [address] [place] [address] IDPA [facility] MEDICARE [facility] Address: [facility] [address] [place] [address] IDPA [facility] MEDICARE [facility] Address: [address] [address] [place] [address] [facility] MEDIC[facility] Address: [facility] [address] [place] [address] IDPA Care Teams Ground Control Approach Technician Relationship Specialty Start Date End Date Dasha Conway NP PCP - General Family Medicine 08/23/24 Donovan Parks MD Referring Physician Gastroenterology 06/12/21
--- OUTSIDE RECORDS SUMMARY | 2025-02-11 18:44 | XMS_ITS | Encounter Summary ---
Author Organization [facility] Address [address] [place] [address] Care Team Providers Care Sfdc Developer Name Role Phone Dasha Conway [facility] Primary Care Provider [phone] Encounter Details Date Type Department Care Team (Late st Contact Info) Description 06/03/2022 Clarizenhart Message Enc [facility] Multispecialty Care - [place] [address] [address] [place] [address] [place] [address] [place] [address] [address] [place] [address] Yeast infection Social History Tobacco [...] Sex Assigned at Female 01/08/2021 9:43 AM BAND PRESSER Legal Sex Female 5:13 PM CDT Gender Identity Female 01/08/2021 9:43 AM BAND PRESSER Sexual Orientation Straight 01/08/2021 9: 43 AM BAND PRESSER COVID-19 Exposure Response Date Recorded In the last 10 days, have yo michael been in contact with someone who was confirmed or suspected to have Coronavirus/COVID-19? No / Unsure 06/04/2022 9:36 AM CDT documented as of this encounter Functional Status * RETIRED Are you deaf or do you have serious difficulty hearing Answer Date of Assessment Author Status No 01/29/2022 10:15 PM BAND PRESSER Acti ve * RETIRED Are you blind or do you have serious difficulty seeing, even when wearing glasses? Answer Date of Assessment Author Status No 01/29/2022 10:15 PM BAND PRESSER Acti ve * Do you have serious [...] Rule Out 10/06/2022 10/06/2022 10/06/2022 1:21 PM BAND PRESSER COVID-19 Rule Out 10/06/2022 10/06/2022 10/07/2022 3:34 PM BAND PRESSER COVID-19 Rule Out 09/14/2023 09/14/2023 09/14/2023 3:48 PM CDT COVID-19 Rule Out 11/02/2024 11/02/2024 11/02/2024 4:03 PM BAND PRESSER Assessment Noted Time PHQ-9 Depression Total Score: 4 05/12/20 3:34 PM CDT documented as of this encounter Care Teams Sfdc Developer Relationship Specialty Start Date End Date Dasha Conway FNP-STEPH [address] [place], [place] [id number] PCP - General 11/02/24 documented as of this encounter
--- OUTSIDE RECORDS SUMMARY | 2025-02-11 18:44 | XMS_ITS | Encounter Summary ---
Author Organization [facility] Address [facility] [place] [address] Care Team Providers Care Lard Refiner Name Role Phone Daryl Metzger MD Primary Care Provider Dasha Vicente [facility] Primary Care Provider [phone] Encounter Details Date Type Department Care Team (Late st Contact Info) Description 08/20/2020 MyChart Message Enc [facility] Medical Group Family Medicine [facility] [address] [address] Daryl Metzger MD RE: Question Social History [...] Assigned at Female 01/08/2021 9:43 AM CHIEF RADIOLOGY Legal Sex Female 5:13 PM CDT Gender Identity Female 01/08/2021 9:43 AM CHIEF RADIOLOGY Sexual Orientation Straight 01/08/2021 9: 43 AM CHIEF RADIOLOGY COVID-19 Exposure Response Date Recorded In the [...] Rule Out 12/16/2020 12/16/2020 12/17/2020 4:31 PM CHIEF RADIOLOGY COVID-19 Rule Out 06/05/2021 06/05/2021 06/05/2021 12:31 PM CDT COVID-19 Rule Out 10/23/2021 10/23/2021 10/23/2021 9:25 AM CHIEF RADIOLOGY COVID-19 Rule Out 10/23/2021 10/23/2021 10/24/2021 12:21 AM CHIEF RADIOLOGY COVID-19 Rule Out 01/15/2022 01/15/2022 01/20/2022 10:53 AM CHIEF RADIOLOGY COVID-19 Rule Out 04/21/2022 04/21/2022 04/21/2022 11:42 AM CDT COVID-19 Rule Out 04/21/2022 04/21/2022 04/26/2022 7:02 AM CDT COVID-19 Rule Out 10/06/2022 10/06/2022 10/06/2022 1:21 PM CHIEF RADIOLOGY COVID-19 Rule Out 10/06/2022 10/06/2022 10/07/2022 3:34 PM CHIEF RADIOLOGY COVID-19 Rule Out 09/14/2023 09/14/2023 09/14/2023 3:48 PM CDT COVID-19 Rule Out 11/02/2024 11/02/2024 11/02/2024 4:03 PM CHIEF RADIOLOGY Assessment Noted Time PHQ-9 Depression Total Score: 020 1:12 PM CDT documented as of this encounter Care Teams Lard Refiner Relationship Specialty Start Date End Date Daryl Metzger MD PCP - General FAMILY MEDICINE SPORTS MEDICINE 08/20/20 10/09/20 Dasha Conway FNP- [address] [place] [id number] PCP - General 11/02/24 documented as of this encounter
--- OUTSIDE RECORDS SUMMARY | 2025-02-11 18:44 | XMS_ITS | Encounter Summary ---
Author Organization [facility] Address [address] [place] [address] Care Team Providers Care Soa Integration Developer Name Role Phone Daryl Metzger MD Primary Care Provider Dasha Vicente [facility] Primary Care Provider [phone] Encounter Details Date Type Department Care Team (Late st Contact Info) Description 08/27/2020 Squawkat Message [facility] [address] Harsh Sanchez MD [address] [place] [address] [place] [phone] RE: Question Social History Tobacco Use Types Packs/Day Years Used Date Smoking Tobacco: Every Day Cigarettes Smokeless Tobacco: Never Alcohol Use Standard Drinks/Week Comments Not Currently 0 (1 standard drink = 0.6 oz pur e alcohol) PHQ-2 Answer Date Recorded PHQ-2 Score 3 06/23/2020 Comments No Sex and Gender Information Value Date Recorded Sex Assigned at Female 01/08/2021 9:43 AM ELECTRICAL ENGINEER MEP Legal Sex Female 5:13 PM CDT Gender Identity Female 01/08/2021 9:43 AM ELECTRICAL ENGINEER MEP Sexual Orientation Straight 01/08/2021 9: 43 AM ELECTRICAL ENGINEER MEP COVID-19 Exposure Response Date Recorded In the [...] Rule Out 12/16/2020 12/16/2020 12/17/2020 4:31 PM ELECTRICAL ENGINEER MEP COVID-19 Rule Out 06/05/2021 06/05/2021 06/05/2021 12:31 PM CDT COVID-19 Rule Out 10/23/2021 10/23/2021 10/23/2021 9:25 AM ELECTRICAL ENGINEER MEP COVID-19 Rule Out 10/23/2021 10/23/2021 10/24/2021 12:21 AM ELECTRICAL ENGINEER MEP COVID-19 Rule Out 01/15/2022 01/15/2022 01/20/2022 10:53 AM ELECTRICAL ENGINEER MEP COVID-19 Rule Out 04/21/2022 04/21/2022 04/21/2022 11:42 AM CDT COVID-19 Rule Out 04/21/2022 04/21/2022 04/26/2022 7:02 AM CDT COVID-19 Rule Out 10/06/2022 10/06/2022 10/06/2022 1:21 PM ELECTRICAL ENGINEER MEP COVID-19 Rule Out 10/06/2022 10/06/2022 10/07/2022 3:34 PM ELECTRICAL ENGINEER MEP COVID-19 Rule Out 09/14/2023 09/14/2023 09/14/2023 3:48 PM CDT COVID-19 Rule Out 11/02/2024 11/02/2024 11/02/2024 4:03 PM ELECTRICAL ENGINEER MEP Assessment Noted Time PHQ-9 Depression Total Score: 13 020 1:12 PM CDT documented as of this encounter Care Teams Soa Integration Developer Relationship Specialty Start Date End Date Daryl Metzger MD PCP - General FAMILY MEDICINE SPORTS MEDICINE 08/20/20 10/09/20 Dasha Conway FNP- [address] [place] [address] PCP - General 11/02/24 documented as of this encounter
--- OUTSIDE RECORDS SUMMARY | 2025-02-11 18:44 | XMS_ITS | Encounter Summary ---
Author Organization [facility] Address [address] [place] [address] Care Team Providers Care Aws Software Development Engineer Name Role Phone Dasha Conway [facility] Primary Care Provider [phone]- [phone] Encounter Details Date Type Department Care Team (Late st Contact Info) Description 08/18/2022 Rough Cut Filmst Message Enc [facility] Medical Group Multispecialty Care - [place] [address] [address] [place] [address] [place] [address] [place] [address] [address] [place] [address] Gi doc Social History Tobacco [...] Sex Assigned at Female 01/08/2021 9:43 AM WEB CONSULTANT Legal Sex Female 5:13 PM CDT Gender Identity Female 01/08/2021 9:43 AM WEB CONSULTANT Sexual Orientation Straight 01/08/2021 9: 43 AM WEB CONSULTANT COVID-19 Exposure Response Date Recorded In [...] Rule Out 10/06/2022 10/06/2022 10/06/2022 1:21 PM WEB CONSULTANT COVID-19 Rule Out 10/06/2022 10/06/2022 10/07/2022 3:34 PM WEB CONSULTANT COVID-19 Rule Out 09/14/2023 09/14/2023 09/14/2023 3:48 PM CDT COVID-19 Rule Out 11/02/2024 11/02/2024 11/02/2024 4:03 PM WEB CONSULTANT Assessment Noted Time PHQ-9 Depression Total Score: 4 05/12/20 3:34 PM CDT documented as of this encounter Care Teams Aws Software Development Engineer Relationship Specialty Start Date End Date Dasha Conway, SCREW MACHINE TENDER- [address] [place] [address] PCP - General 11/02/24 documented as of this encounter
--- OUTSIDE RECORDS SUMMARY | 2025-02-11 18:44 | XMS_ITS | Encounter Summary ---
Author Organization [facility] - [facility] Address [address] [place] [address] Care Team Providers Care Director Hr Communications Name Role Phone Dasha Conway [facility] Primary Care Provider +1- [phone] Encounter Details Date Type Department Care Team (Late st Contact Info) Description 06/13/2022 FiFullyt Message Enc [facility] Medical Group Multispecialty Care - [place] [address] [address] [place] [address] [place] [address] [place] [address] 157 [place] [address] Blood sugar Social History Tobacco [...] Sex Assigned at Female 01/08/2021 9:43 AM GEODETIC SURVEYOR TECHNOLOGIST Legal Sex Female 5:13 PM CDT Gender Identity Female 01/08/2021 9:43 AM GEODETIC SURVEYOR TECHNOLOGIST Sexual Orientation Straight 01/08/2021 9: 43 AM GEODETIC SURVEYOR TECHNOLOGIST COVID-19 Exposure Response Date Recorded In the [...] Assessment Author Status No 01/29/2022 10:15 PM GEODETIC SURVEYOR TECHNOLOGIST Acti ve * RETIRED Are you blind or do you have serious difficulty seeing, even when wearing glasses? Answer Date of Assessment Author Status No 01/29/2022 10:15 PM GEODETIC SURVEYOR TECHNOLOGIST Acti ve * Do you have serious [...] Rule Out 10/06/2022 10/06/2022 10/06/2022 1:21 PM GEODETIC SURVEYOR TECHNOLOGIST COVID-19 Rule Out 10/06/2022 10/06/2022 10/07/2022 3:34 PM GEODETIC SURVEYOR TECHNOLOGIST COVID-19 Rule Out 09/14/2023 09/14/2023 09/14/2023 3:48 PM CDT COVID-19 Rule Out 11/02/2024 11/02/2024 11/02/2024 4:03 PM GEODETIC SURVEYOR TECHNOLOGIST Assessment Noted Time PHQ-9 Depression Total Score: 4 05/12/20 3:34 PM CDT documented as of this encounter Care Teams Director Hr Communications Relationship Specialty Start Date End Date Dasha Conway, ORTHOPEDIC DENTIST- [address] [place] [address] PCP - General 11/02/24 documented as of this encounter
--- OUTSIDE RECORDS SUMMARY | 2025-02-11 18:45 | XMS_ITS | Encounter Summary ---
Author Organization [facility] Address [address] [place] [address] Care Team Providers Care Inspector Advanced Composite Name Role Phone Daryl Metzger MD Primary Care Provider Dasha Vicente [facility] Primary Care Provider [phone]- [phone] Encounter Details Date Type Department Care Team (Latest Contact Info) Description 09/04/2020 [employer] Message [facility]-[address] [address] Harsh Sanchez MD [address] [place] [phone] RE: Follow Up/Update Social History Tobacco Use Types Packs/Day Years Used Date Smoking Tobacco: Every Day Cigarettes Smokeless Tobacco: Never Alcohol Use Standard Drinks/Week Comments Not Currently 0 (1 standard drink = 0.6 oz pur e alcohol) PHQ-2 Answer Date Recorded PHQ-2 Score 3 06/23/2020 Comments No Sex and Gender Information Value Date Recorded Sex Assigned at Female 01/08/2021 9:43 AM HOLE PUNCHER STRAP Legal Sex Female 5:13 PM CDT Gender Identity Female 01/08/2021 9:43 AM HOLE PUNCHER STRAP Sexual Orientation Straight 01/08/2021 9: 43 AM HOLE PUNCHER STRAP COVID-19 Exposure Response Date Recorded In the [...] Rule Out 12/16/2020 12/16/2020 12/17/2020 4:31 PM HOLE PUNCHER STRAP COVID-19 Rule Out 06/05/2021 06/05/2021 06/05/2021 12:31 PM CDT COVID-19 Rule Out 10/23/2021 10/23/2021 10/23/2021 9:25 AM HOLE PUNCHER STRAP COVID-19 Rule Out 10/23/2021 10/23/2021 10/24/2021 12:21 AM HOLE PUNCHER STRAP COVID-19 Rule Out 01/15/2022 01/15/2022 01/20/2022 10:53 AM HOLE PUNCHER STRAP COVID-19 Rule Out 04/21/2022 04/21/2022 04/21/2022 11:42 AM CDT COVID-19 Rule Out 04/21/2022 04/21/2022 04/26/2022 7:02 AM CDT COVID-19 Rule Out 10/06/2022 10/06/2022 10/06/2022 1:21 PM HOLE PUNCHER STRAP COVID-19 Rule Out 10/06/2022 10/06/2022 10/07/2022 3:34 PM HOLE PUNCHER STRAP COVID-19 Rule Out 09/14/2023 09/14/2023 09/14/2023 3:48 PM CDT COVID-19 Rule Out 11/02/2024 11/02/2024 11/02/2024 4:03 PM HOLE PUNCHER STRAP Assessment Noted Time PHQ-9 Depression Total Score: 13 020 1:12 PM CDT documented as of this encounter Care Teams Inspector Advanced Composite Relationship Specialty Start Date End Date Daryl Metzger MD PCP - General FAMILY MEDICINE SPORTS MEDICINE 08/20/20 10/09/20 Dasha Conway FNP- [address] [place] [address] PCP - General 11/02/24 documented as of this encounter
--- OUTSIDE RECORDS SUMMARY | 2025-02-11 18:45 | XMS_ITS | Clinical Summary ---
Author Organization [facility] Address [address] [facility] [place] [address] Care Team Providers Care Gamma Facilities Operator Name Role Phone Curtis Diaz MD Primary Care Provider [phone] Source Comments [facility],non-owned Affiliates and Associated Physician Practices is amultiple site organization consisting of ambulatory clinics and hospital sitesin [place], [place], [place] and [place]. This disclosure is being madepursuant to the Care Everywhere program and may not contain all information available regarding this patient. Last updated 18.[facility] Allergies Active Allergy Reactions Criticality Noted Date [...] age to complete this topic Care Teams Gamma Facilities Operator Relationship Specialty Start Date End Date Curtis Diaz MD [address] [facility] [address] [place] [address] [facility] - General 04/12/22
--- OUTSIDE RECORDS SUMMARY | 2025-02-11 18:45 | XMS_ITS | Encounter Summary ---
Author Organization [facility] Address [address] [place] [address] Care Team Providers Care Supervisor Remelt Name Role Phone Daryl Mtezger MD Primary Care Provider Bradley Gallegos MD Primary Care Provider [phone] Daryl Metzger MD Primary Care Provider Dasha Vicente [facility] Primary Care Provider [phone]- [phone] Encounter Details Date Type Department Care Team (Late st Contact Info) Description 08/09/2020 My Point...Exactlyt Message Enc [facility] Medical Group [facility] [address] [place] [address] Daryl Metzger MD RE: Follow Up/Update Social [...] Assigned at Female 01/08/2021 9:43 AM BUILDING AND CONSTRUCTION MANAGER Legal Sex Female 5:13 PM CDT Gender Identity Female 01/08/2021 9:43 AM BUILDING AND CONSTRUCTION MANAGER Sexual Orientation Straight 01/08/2021 9: 43 AM BUILDING AND CONSTRUCTION MANAGER COVID-19 Exposure Response Date Recorded In [...] Out 12/16/2020 12/16/2020 12/17/2020 4:31 PM BUILDING AND CONSTRUCTION MANAGER COVID-19 Rule Out 06/05/2021 06/05/2021 06/05/2021 12:31 PM CDT COVID-19 Rule Out 10/23/2021 10/23/2021 10/23/2021 9:25 AM BUILDING AND CONSTRUCTION MANAGER COVID-19 Rule Out 10/23/2021 10/23/2021 10/24/2021 12:21 AM BUILDING AND CONSTRUCTION MANAGER COVID-19 Rule Out 01/15/2022 01/15/2022 01/20/2022 10:53 AM BUILDING AND CONSTRUCTION MANAGER COVID-19 Rule Out 04/21/2022 04/21/2022 04/21/2022 11:42 AM CDT COVID-19 Rule Out 04/21/2022 04/21/2022 04/26/2022 7:02 AM CDT COVID-19 Rule Out 10/06/2022 10/06/2022 10/06/2022 1:21 PM BUILDING AND CONSTRUCTION MANAGER COVID-19 Rule Out 10/06/2022 10/06/2022 10/07/2022 3:34 PM BUILDING AND CONSTRUCTION MANAGER COVID-19 Rule Out 09/14/2023 09/14/2023 09/14/2023 3:48 PM CDT COVID-19 Rule Out 11/02/2024 11/02/2024 11/02/2024 4:03 PM BUILDING AND CONSTRUCTION MANAGER Assessment Noted Time PHQ-9 Depression Total Score: 13 020 1:12 PM CDT documented as of this encounter Care Teams Supervisor Remelt Relationship Specialty Start Date End Date Daryl Metzger MD PCP - General FAMILY MEDICINE SPORTS MEDICINE 06/23/20 08/12/20 Bradley Carmichael MD [address] [place] [address] MEDICAL OFFICE BUILDING [address] [place] [address] PCP - General INTERNAL MEDICINE 08/13/20 08/19/20 Daryl Metzger MD PCP - General FAMILY MEDICINE SPORTS MEDICINE 08/20/20 10/09/20 Dasha Conway, EMBROIDERY WORKER- [address] [place] [address] PCP - General 11/02/24 documented as of this encounter
--- OUTSIDE RECORDS SUMMARY | 2025-02-11 18:45 | XMS_ITS | Encounter Summary ---
Author Organization [facility] Address [address] [place] [address] Care Team Providers Care Lawn Mower Sharpener Name Role Phone Daryl Metzger MD Primary Care Provider Dasha Vicente [facility] Primary Care Provider [phone]- [phone] Encounter Details Date Type Department Care Team (Late st Contact Info) Description 09/03/2020 [facility] at [address] [address] Hussain Barros [place] Social History Tobacco Use Types Packs/Day Years Used Date Smoking Tobacco: Every Day Cigarettes Smokeless Tobacco: Never Alcohol Use Standard Drinks/Week Comments Not Currently 0 (1 standard drink = 0.6 oz pur e alcohol) PHQ-2 Answer Date Recorded PHQ-2 Score 3 06/23/2020 Comments No Sex and Gender Information Value Date Recorded Sex Assigned at Female 01/08/2021 9:43 AM QUALITY ANALYST Legal Sex Female 5:13 PM CDT Gender Identity Female 01/08/2021 9:43 AM QUALITY ANALYST Sexual Orientation Straight 01/08/2021 9: 43 AM QUALITY ANALYST COVID-19 Exposure Response Date Recorded [...] Rule Out 12/16/2020 12/16/2020 12/17/2020 4:31 PM QUALITY ANALYST COVID-19 Rule Out 06/05/2021 06/05/2021 06/05/2021 12:31 PM CDT COVID-19 Rule Out 10/23/2021 10/23/2021 10/23/2021 9:25 AM QUALITY ANALYST COVID-19 Rule Out 10/23/2021 10/23/2021 10/24/2021 12:21 AM QUALITY ANALYST COVID-19 Rule Out 01/15/2022 01/15/2022 01/20/2022 10:53 AM QUALITY ANALYST COVID-19 Rule Out 04/21/2022 04/21/2022 04/21/2022 11:42 AM CDT COVID-19 Rule Out 04/21/2022 04/21/2022 04/26/2022 7:02 AM CDT COVID-19 Rule Out 10/06/2022 10/06/2022 10/06/2022 1:21 PM QUALITY ANALYST COVID-19 Rule Out 10/06/2022 10/06/2022 10/07/2022 3:34 PM QUALITY ANALYST COVID-19 Rule Out 09/14/2023 09/14/2023 09/14/2023 3:48 PM CDT COVID-19 Rule Out 11/02/2024 11/02/2024 11/02/2024 4:03 PM QUALITY ANALYST Assessment Noted Time PHQ-9 Depression Total Score: 13 020 1:12 PM CDT documented as of this encounter Care Teams Lawn Mower Sharpener Relationship Specialty Start Date End Date Daryl Metzger MD PCP - General FAMILY MEDICINE SPORTS MEDICINE 08/20/20 10/09/20 Dasha Conway YARD MANAGER- [address] [place] [address] PCP - General 11/02/24 documented as of this encounter
--- OUTSIDE RECORDS SUMMARY | 2025-02-11 18:45 | XMS_ITS | Encounter Summary ---
Author Organization [facility] - [facility] Address [address] [place] [address] Care Team Providers Care Rn Bsn Name Role Phone Dasha Conway [facility] Primary Care Provider [phone]- [phone] Encounter Details Date Type Department Care Team (Latest Contact Info) Description 01/20/2023 [employer] Message Enc [facility] Medical Group Multispecialty Care - [place] [address] [address] [address] [place] [address] [place] [address] [place] [address] 157 [place] [address] Vomiting and sugar Social History [...] Sex Assigned at Female 01/08/2021 9:43 AM RENAL DIALYSIS TECHNICIAN Legal Sex Female 5:13 PM CDT Gender Identity Female 01/08/2021 9:43 AM RENAL DIALYSIS TECHNICIAN Sexual Orientation Straight 01/08/2021 9: 43 AM RENAL DIALYSIS TECHNICIAN COVID-19 Exposure Response Date Recorded In the last 10 days, have asif rodriguez been in contact with someone who was confirmed or suspected to have Coronavirus/COVID-19? No / Unsure 01/11/2023 8:54 AM RENAL DIALYSIS TECHNICIAN documented as of this encounter Functional [...] Rule Out 11/02/2024 11/02/2024 11/02/2024 4:03 PM RENAL DIALYSIS TECHNICIAN Assessment Noted Time PHQ-9 Depression Total Score: 11 022 12:00 PM RENAL DIALYSIS TECHNICIAN documented as of this encounter Care Teams Rn Bsn Relationship Specialty Start Date End Date Dasha Conway FNP-BC [address] [place] [address] PCP - General 11/02/24 documented as of this encounter
--- OUTSIDE RECORDS SUMMARY | 2025-02-11 18:45 | XMS_ITS | Encounter Summary ---
Author Organization [facility] - [facility] Address [address] [place] [address] Care Team Providers Care Speech Lang Path Name Role Phone Dasha Conway [facility] Primary Care Provider [phone]- [phone] Encounter Details Date Type Department Care Team (Late st Contact Info) Description 12/07/2022 [employer] Message Enc [facility] Medical Group Multispecialty Care - [place] [address] [address] [place] [address] [place] [address] [place] [address] 157 [place] [address] Surgery date Social History Tobacco [...] Sex Assigned at Female 01/08/2021 9:43 AM TANK WAGON DRIVER Legal Sex Female 5:13 PM CDT Gender Identity Female 01/08/2021 9:43 AM TANK WAGON DRIVER Sexual Orientation Straight 01/08/2021 9: 43 AM TANK WAGON DRIVER COVID-19 Exposure Response Date Recorded In the last 10 days, have asif rodriguez been in contact with someone who was confirmed or suspected to have Coronavirus/COVID-19? No / Unsure 12/03/2022 10:51 AM TANK WAGON DRIVER documented as of this encounter Functional [...] Rule Out 11/02/2024 11/02/2024 11/02/2024 4:03 PM TANK WAGON DRIVER Assessment Noted Time PHQ-9 Depression Total Score: 11 022 12:00 PM TANK WAGON DRIVER documented as of this encounter Care Teams Speech Lang Path Relationship Specialty Start Date End Date Dahsa Conway FNP-BC [address] [place] [address] PCP - General 11/02/24 documented as of this encounter
--- OUTSIDE RECORDS SUMMARY | 2025-02-11 18:45 | XMS_ITS | Encounter Summary ---
Author Organization [facility] Address [address] [place] [address] Care Team Providers Care Pension Administrator Name Role Phone Daryl Metzger MD Primary Care Provider Dasha Vicente [facility] Primary Care Provider +1- [phone] Encounter Details Date Type Department Care Team (Late st Contact Info) Description 09/17/2020 [employer] Message Enc [facility] Medical Group Multispecialty Care - [facility] [address] [facility], [address] [place] [address] Chip, [facility] Provider EGD results Social History [...] Assigned at Female 01/08/2021 9:43 AM BUSINESS UNIT LEADER Legal Sex Female 5:13 PM CDT Gender Identity Female 01/08/2021 9:43 AM BUSINESS UNIT LEADER Sexual Orientation Straight 01/08/2021 9: 43 AM BUSINESS UNIT LEADER COVID-19 Exposure Response Date Recorded In [...] Out 12/16/2020 12/16/2020 12/17/2020 4:31 PM BUSINESS UNIT LEADER COVID-19 Rule Out 06/05/2021 06/05/2021 06/05/2021 12:31 PM CDT COVID-19 Rule Out 10/23/2021 10/23/2021 10/23/2021 9:25 AM BUSINESS UNIT LEADER COVID-19 Rule Out 10/23/2021 10/23/2021 10/24/2021 12:21 AM BUSINESS UNIT LEADER COVID-19 Rule Out 01/15/2022 01/15/2022 01/20/2022 10:53 AM BUSINESS UNIT LEADER COVID-19 Rule Out 04/21/2022 04/21/2022 04/21/2022 11:42 AM CDT COVID-19 Rule Out 04/21/2022 04/21/2022 04/26/2022 7:02 AM CDT COVID-19 Rule Out 10/06/2022 10/06/2022 10/06/2022 1:21 PM BUSINESS UNIT LEADER COVID-19 Rule Out 10/06/2022 10/06/2022 10/07/2022 3:34 PM BUSINESS UNIT LEADER COVID-19 Rule Out 09/14/2023 09/14/2023 09/14/2023 3:48 PM CDT COVID-19 Rule Out 11/02/2024 11/02/2024 11/02/2024 4:03 PM BUSINESS UNIT LEADER Assessment Noted Time PHQ-9 Depression Total Score: 13 020 1:12 PM CDT documented as of this encounter Care Teams Pension Administrator Relationship Specialty Start Date End Date Daryl Metzger MD PCP - General FAMILY MEDICINE SPORTS MEDICINE 08/20/20 10/09/20 Dasha Conway FNP- [address] [place] [address] PCP - General 11/02/24 documented as of this encounter
--- OUTSIDE RECORDS SUMMARY | 2025-02-11 18:45 | XMS_ITS | Encounter Summary ---
Author Organization [facility] - [facility] Address [address] [place] [address] Care Team Providers Care Coal Hauler Name Role Phone Dasha Conway [facility] Primary Care Provider +1- [phone] Encounter Details Date Type Department Care Team (Latest Contact Info) Description 04/01/2023 Absorption Pharmaceuticalst Message Enc [facility] Medical Group Multispecialty Care - [place] [address] [address] [place] [address] Curtis Diaz MD [address] [facility] [address] [place] [address] Home from surgery Social History [...] Assigned at Female 01/08/2021 9:43 AM WEB DESIGN SPECIALIST Legal Sex Female 5:13 PM CDT Gender Identity Female 01/08/2021 9:43 AM WEB DESIGN SPECIALIST Sexual Orientation Straight 01/08/2021 9: 43 AM WEB DESIGN SPECIALIST COVID-19 Exposure Response Date Recorded In [...] Out 11/02/2024 11/02/2024 11/02/2024 4:03 PM WEB DESIGN SPECIALIST Assessment Noted Time PHQ-9 Depression Total Score: 11 022 12:00 PM WEB DESIGN SPECIALIST documented as of this encounter Care Teams Coal Hauler Relationship Specialty Start Date End Date Dasha Conway, SCREEN PRINTING SUPERVISOR- [address] [place] [address] PCP - General 11/02/24 documented as of this encounter
--- OUTSIDE RECORDS SUMMARY | 2025-02-11 18:45 | XMS_ITS | Encounter Summary ---
Author Organization [facility] Address [address] [place] [address] Care Team Providers Care Auricular Acupuncturist Name Role Phone Dasha Conway [facility] Primary Care Provider +1- [phone] Encounter Details Date Type Department Care Team (Late st Contact Info) Description 04/04/2023 GlycoPuret Message Enc [facility] Medical Group Multispecialty Care - [place] [address] [address] [place] [address] [place] [address] [place] [address] 157 [place] [address] Medication Social History Tobacco Use [...] Sex Assigned at Female 01/08/2021 9:43 AM NEURODIAGNOSTIC TECHNOLOGIST Legal Sex Female 5:13 PM CDT Gender Identity Female 01/08/2021 9:43 AM NEURODIAGNOSTIC TECHNOLOGIST Sexual Orientation Straight 01/08/2021 9: 43 AM NEURODIAGNOSTIC TECHNOLOGIST COVID-19 Exposure Response Date Recorded In [...] Rule Out 11/02/2024 11/02/2024 11/02/2024 4:03 PM NEURODIAGNOSTIC TECHNOLOGIST Assessment Noted Time PHQ-9 Depression Total Score: 11 022 12:00 PM NEURODIAGNOSTIC TECHNOLOGIST documented as of this encounter Care Teams Auricular Acupuncturist Relationship Specialty Start Date End Date Dasha Conway, FRUIT AND VEGETABLE PACKER- [address] [place] [address] PCP - General 11/02/24 documented as of this encounter
--- OUTSIDE RECORDS SUMMARY | 2025-02-11 18:45 | XMS_ITS | Encounter Summary ---
Author Organization [facility] - [facility] Address [facility] [place] [address] Care Team Providers Care Art History Instructor Name Role Phone Dasha Conway [facility] Primary Care Provider +1- [phone] Encounter Details Date Type Department Care Team (Late st Contact Info) Description 02/17/2024 Cafe[employer]t Message Enc [facility] Medical Group Multispecialty Care - [place] [address] [address] [place] [address] [place] [address] [place] [address] 157 [place] [address] Lumps on arm Social History [...] Sex Assigned at Female 01/08/2021 9:43 AM STUMPER FELLER Legal Sex Female 5:13 PM CDT Gender Identity Female 01/08/2021 9:43 AM STUMPER FELLER Sexual Orientation Straight 01/08/2021 9: 43 AM STUMPER FELLER documented as of this encounter Functional Status [...] Rule Out 11/02/2024 11/02/2024 11/02/2024 4:03 PM STUMPER FELLER Assessment Noted Time PHQ-9 Depression Total Score: 7 11/16/20 23 9:57 AM STUMPER FELLER documented as of this encounter Care Teams Art History Instructor Relationship Specialty Start Date End Date Dasha Conway FNP-STEPH [address] [place] [address] PCP - General 11/02/24 documented as of this encounter
--- OUTSIDE RECORDS SUMMARY | 2025-02-11 18:45 | XMS_ITS | Encounter Summary ---
Author Organization [facility] Address [facility] [place] [address] Care Team Providers Care Dishtank Operator Name Role Phone Dasha Conway [facility] Primary Care Provider +1- [phone] Encounter Details Date Type Department Care Team (Latest Contact Info) Description 10/23/2020 [employer]Keepert Message Enc [facility] Medical Group Multispecialty Care - [place] [address] [address] [address] [place] [address] [place] [address] [place] [address] 157 [place] [address] RE: Follow Up/Update Social History [...] Sex Assigned at Female 01/08/2021 9:43 AM SCIENCE MANAGER Legal Sex Female 5:13 PM CDT Gender Identity Female 01/08/2021 9:43 AM SCIENCE MANAGER Sexual Orientation Straight 01/08/2021 9: 43 AM SCIENCE MANAGER COVID-19 Exposure Response Date Recorded In the last month, have you been in contact with someone who was confirmed or suspected to have Coronavirus / COVID-19? 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 06/30/2017 COVID-19 Rule Out 12/16/2020 12/16/2020 12/17/2020 4:31 PM SCIENCE MANAGER COVID-19 Rule Out 06/05/2021 06/05/2021 06/05/2021 12:31 PM CDT COVID-19 Rule Out 10/23/2021 10/23/2021 10/23/2021 9:25 AM SCIENCE MANAGER COVID-19 Rule Out 10/23/2021 10/23/2021 10/24/2021 12:21 AM SCIENCE MANAGER COVID-19 Rule Out 01/15/2022 01/15/2022 01/20/2022 10:53 AM SCIENCE MANAGER COVID-19 Rule Out 04/21/2022 04/21/2022 04/21/2022 11:42 AM CDT COVID-19 Rule Out 04/21/2022 04/21/2022 04/26/2022 7:02 AM CDT COVID-19 Rule Out 10/06/2022 10/06/2022 10/06/2022 1:21 PM SCIENCE MANAGER COVID-19 Rule Out 10/06/2022 10/06/2022 10/07/2022 3:34 PM SCIENCE MANAGER COVID-19 Rule Out 09/14/2023 09/14/2023 09/14/2023 3:48 PM CDT COVID-19 Rule Out 11/02/2024 11/02/2024 11/02/2024 4:03 PM SCIENCE MANAGER Assessment Noted Time PHQ-9 Depression Total Score: 020 1:12 PM CDT documented as of this encounter Care Teams Dishtank Operator Relationship Specialty Start Date End Date Dasha Conway, SENIOR LOSS CONTROL SPECIALIST- [address] [place] [address] PCP - General 11/02/24 documented as of this encounter
--- OUTSIDE RECORDS SUMMARY | 2025-02-11 18:45 | XMS_ITS | Encounter Summary ---
Author Organization [facility] - [facility] System Address [address] [place] [address] Care Team Providers Care Electronic Commerce Specialist Name Role Phone Dasha Conway [facility] Primary Care Provider +1- [phone] Encounter Details Date Type Department Care Team (Latest Contact Info) Description 01/17/2023 SchoolEdge Mobilet Message Enc [facility] Medical Group Multispecialty Care - [place] [address] [address] [place] [address] [place] [address] [place] [address] 157 [place] [address] morning blood sugars Social History [...] Sex Assigned at Female 01/08/2021 9:43 AM LIBRARY HISTORIAN Legal Sex Female 5:13 PM CDT Gender Identity Female 01/08/2021 9:43 AM LIBRARY HISTORIAN Sexual Orientation Straight 01/08/2021 9: 43 AM LIBRARY HISTORIAN COVID-19 Exposure Response Date Recorded In the last 10 days, have asif rodriguez been in contact with someone who was confirmed or suspected to have Coronavirus/COVID-19? No / Unsure 01/11/2023 8:54 AM LIBRARY HISTORIAN documented as of this encounter Functional Status [...] Rule Out 11/02/2024 11/02/2024 11/02/2024 4:03 PM LIBRARY HISTORIAN Assessment Noted Time PHQ-9 Depression Total Score: 11 022 12:00 PM LIBRARY HISTORIAN documented as of this encounter Care Teams Electronic Commerce Specialist Relationship Specialty Start Date End Date Dasha Conway FNP-BC [address] [place] [address] PCP - General 11/02/24 documented as of this encounter
--- OUTSIDE RECORDS SUMMARY | 2025-02-11 18:45 | XMS_ITS | Encounter Summary ---
Author Organization [facility] System Address [facility] [place] [address] Care Team Providers Care Life Enrichment Director Name Role Phone Dasha Conway [facility] Primary Care Provider +1- [phone] Encounter Details Date Type Department Care Team (Late st Contact Info) Description 07/08/2023 Berstt Message Enc [facility] Medical Group Multispecialty Care - [place] [address] [address] [address] [place] [address] [place] [address] [place] [address] [address] [place] [address] Nausea Social History Tobacco Use [...] Sex Assigned at Female 01/08/2021 9:43 AM BOILING OFF WINDER Legal Sex Female 5:13 PM CDT Gender Identity Female 01/08/2021 9:43 AM BOILING OFF WINDER Sexual Orientation Straight 01/08/2021 9: 43 AM BOILING OFF WINDER documented as of this encounter Functional Status [...] Rule Out 11/02/2024 11/02/2024 11/02/2024 4:03 PM BOILING OFF WINDER Assessment Noted Time PHQ-9 Depression Total Score: 11 022 12:00 PM BOILING OFF WINDER documented as of this encounter Care Teams Life Enrichment Director Relationship Specialty Start Date End Date Dasha Conway FNP- [address] [place] [address] PCP - General 11/02/24 documented as of this encounter
--- OUTSIDE RECORDS SUMMARY | 2025-02-11 18:45 | XMS_ITS | Encounter Summary ---
Author Organization [facility] - [facility] System Address [address] [place] [address] Care Team Providers Care Aviation Metalsmith Name Role Phone Dasha Conway [facility] Primary Care Provider +1- [phone] Encounter Details Date Type Department Care Team (Late st Contact Info) Description 02/06/2024 Unified Socialt Message Enc [facility] Medical Group Multispecialty Care - [place] [address] [address] [address] [place] [address] [place] [address] [place] [address] [address] [place] [address] Underarm rash Social History Tobacco [...] Sex Assigned at Female 01/08/2021 9:43 AM PATENT SOLICITOR Legal Sex Female 5:13 PM CDT Gender Identity Female 01/08/2021 9:43 AM PATENT SOLICITOR Sexual Orientation Straight 01/08/2021 9: 43 AM PATENT SOLICITOR documented as of this encounter Functional Status [...] Rule Out 11/02/2024 11/02/2024 11/02/2024 4:03 PM PATENT SOLICITOR Assessment Noted Time PHQ-9 Depression Total Score: 7 11/16/20 23 9:57 AM PATENT SOLICITOR documented as of this encounter Care Teams Aviation Metalsmith Relationship Specialty Start Date End Date Dasha Conway FNP-STEPH [address] [place] [address] PCP - General 11/02/24 documented as of this encounter
--- OUTSIDE RECORDS SUMMARY | 2025-02-11 18:45 | XMS_ITS | Encounter Summary ---
Author Organization [facility] System Address [facility] [place] [address] Care Team Providers Care Solution Design And Analysis Manager Name Role Phone Dasha Conway [facility] Primary Care Provider +1- [phone] Encounter Details Date Type Department Care Team (Late st Contact Info) Description 09/08/2023 Campus Jobt Message Enc [facility] Medical Group Multispecialty Care - [place] [address] [address] [place] [address] [place] [address] [place] [address] [address] [place] [address] Oral thrush Social History Tobacco [...] Sex Assigned at Female 01/08/2021 9:43 AM ACID PURIFIER Legal Sex Female 5:13 PM CDT Gender Identity Female 01/08/2021 9:43 AM ACID PURIFIER Sexual Orientation Straight 01/08/2021 9: 43 AM ACID PURIFIER documented as of this encounter Functional Status [...] Rule Out 11/02/2024 11/02/2024 11/02/2024 4:03 PM ACID PURIFIER Assessment Noted Time PHQ-9 Depression Total Score: 11 11/05/2 022 12:00 PM ACID PURIFIER documented as of this encounter Care Teams Solution Design And Analysis Manager Relationship Specialty Start Date End Date Dasha Conway FNP- [address] [place] [address] PCP - General 11/02/24 documented as of this encounter
--- OUTSIDE RECORDS SUMMARY | 2025-02-11 18:45 | XMS_ITS | Encounter Summary ---
Author Organization [facility] - [facility] System Address [address] [place] [address] Care Team Providers Care Fire Official Name Role Phone Dasha Conway [facility] Primary Care Provider +1- [phone] Encounter Details Date Type Department Care Team (Late st Contact Info) Description 02/08/2024 Tuniit Message Enc [facility] Medical Group Multispecialty Care - [place] [address] [address] [place] [address] [place] [address] [place] [address] 157 [place] [address] Fluconazole Social History Tobacco Use [...] Sex Assigned at Female 01/08/2021 9:43 AM CIRCULATION CREW LEADER Legal Sex Female 5:13 PM CDT Gender Identity Female 01/08/2021 9:43 AM CIRCULATION CREW LEADER Sexual Orientation Straight 01/08/2021 9: 43 AM CIRCULATION CREW LEADER documented as of this encounter Functional Status [...] Rule Out 11/02/2024 11/02/2024 11/02/2024 4:03 PM CIRCULATION CREW LEADER Assessment Noted Time PHQ-9 Depression Total Score: 7 11/16/20 23 9:57 AM CIRCULATION CREW LEADER documented as of this encounter Care Teams Fire Official Relationship Specialty Start Date End Date Dasha Conway FNP- [address] [place] [address] PCP - General 11/02/24 documented as of this encounter
--- OUTSIDE RECORDS SUMMARY | 2025-02-11 18:45 | XMS_ITS | Encounter Summary ---
Author Organization [facility] Address [address] [place] [address] Care Team Providers Care Chip Silo Tender Name Role Phone Daryl Metzger MD Primary Care Provider Dasha Vicente [facility] Primary Care Provider +1- [phone] Encounter Details Date Type Department Care Team (Late st Contact Info) Description 09/01/2020 Prep for Procedure [facility] [place], [place] [address] Donovan Parks MD [address] [facility] Reggie [address] [address] Social History Tobacco Use Types Packs/Day Years Used Date Smoking Tobacco: Every Day Cigarettes Smokeless Tobacco: Never Alcohol Use Standard Drinks/Week Comments Not Currently 0 (1 standard drink = 0.6 oz pur e alcohol) PHQ-2 Answer Date Recorded PHQ-2 Score 3 06/23/2020 Comments No Sex and Gender Information Value Date Recorded Sex Assigned at Female 01/08/2021 9:43 AM HITTING COACH Legal Sex Female 5:13 PM CDT Gender Identity Female 01/08/2021 9:43 AM HITTING COACH Sexual Orientation Straight 01/08/2021 9: 43 AM HITTING COACH COVID-19 Exposure Response Date Recorded In the [...] DETECTED NOT DETECTED 09/02/2020 10:05 PM CDT [facility] Comment: A Not Detected (negative) test result [...] providers and patients using the following websites: https://www.DriftToIt.Neolinear/home/Covid-19/HCP/NAAT/fact-sheet2 https://www.DriftToIt.Neolinear/home/Covid-19/Patients/NAAT/ fact-sheet2 This test has been authorized by the FDA under an Emergency Use Authorization (EUA) for use by authorized laboratories. Due to the current public health emergency, [facility] is receiving a high volume of samples [...] about COVID-19 can be found at the [facility] website: www.[email or web address].Neolinear/Covid19. Test performed at [facility] [place] [address] [place] [address] Director: CURRY BAEZA DO,MPH FIRST TEST UNKNOWN 09/01/2020 3:38 PM CDT [facility] EMPLOYED IN HEALTHCARE UNKNOWN 09/01/2020 3:38 PM CDT [facility] SYMPTOMATIC DEFINED BY CDC UNKNOWN 09/01/2020 3:38 PM CDT [facility] DATE OF SYMPTOM ONSET UNKNOWN 09/01/2020 3:44 PM CDT [facility] HOSPITALIZATION STATUS NO 09/01/2020 3:38 PM CDT [facility] PATIENT IN ICU NO 09/01/2020 3:38 PM CDT [facility] RESIDENT OF [facility] UNKNOWN 09/01/2020 3:38 PM CDT [facility] UNKNOWN 09/01/2020 3:38 PM CDT [facility] PATIENT'S RACE WHITE OR 09/01/2020 3:38 PM CDT [facility] ETHNICITY NONHISPANIC 09/01/2020 3:38 PM CDT [facility] SOURCE (QST) NASOPHARYNGEAL SWAB 09/01/2020 3:38 PM CDT [facility] NASOPHARYNGEAL SWAB / Unknown 09/01/2020 12:23 PM CDT Donovan Parks MD MICROBIOLOGY - GENERAL ORDERABLE S Final Result [facility] [address] [place] [address], [facility] [address] [address], documented in this encounter Visit Diagnoses Diagnosis Dysphagia- Primary Dysphagia, unspecified documented in this encounter Additional Health Concerns Infection Onset Date Last Indicated Resolved Time 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 06/30/2017 COVID-19 Rule Out 09/01/2020 09/01/2020 09/02/2020 10:06 PM CDT COVID-19 Rule Out 12/16/2020 12/16/2020 12/17/2020 4:31 PM HITTING COACH COVID-19 Rule Out 06/05/2021 06/05/2021 06/05/2021 12:31 PM CDT COVID-19 Rule Out 10/23/2021 10/23/2021 10/23/2021 9:25 AM HITTING COACH COVID-19 Rule Out 10/23/2021 10/23/2021 10/24/2021 12:21 AM HITTING COACH COVID-19 Rule Out 01/15/2022 01/15/2022 01/20/2022 10:53 AM HITTING COACH COVID-19 Rule Out 04/21/2022 04/21/2022 04/21/2022 11:42 AM CDT COVID-19 Rule Out 04/21/2022 04/21/2022 04/26/2022 7:02 AM CDT COVID-19 Rule Out 10/06/2022 10/06/2022 10/06/2022 1:21 PM HITTING COACH COVID-19 Rule Out 10/06/2022 10/06/2022 10/07/2022 3:34 PM HITTING COACH COVID-19 Rule Out 09/14/2023 09/14/2023 09/14/2023 3:48 PM CDT COVID-19 Rule Out 11/02/2024 11/02/2024 11/02/2024 4:03 PM HITTING COACH Assessment Noted Time PHQ-9 Depression Total Score: 020 1:12 PM CDT documented as of this encounter Care Teams Chip Silo Tender Relationship Specialty Start Date End Date Daryl Metzger MD PCP - General FAMILY MEDICINE SPORTS MEDICINE 08/20/20 10/09/20 Dasha Conway, [facility]- [address] [place] [address] PCP - General 11/02/24 documented as of this encounter
--- OUTSIDE RECORDS SUMMARY | 2025-02-11 18:45 | XMS_ITS | Encounter Summary ---
Author Organization [facility] - [facility] Address [address] [place] [address] Care Team Providers Care Benefit Authorizer Name Role Phone Dasha Conway [facility] Primary Care Provider +1- [phone] Encounter Details Date Type Department Care Team (Late st Contact Info) Description 02/14/2023 [email or web address] Message Enc [facility] Medical Group Multispecialty Care - [place] [address] [address] [place] [address] [place] [address] [place] [address] 157 [place] [address] A1c Social History Tobacco Use [...] Assigned at Female 01/08/2021 9:43 AM MANAGER COPY Legal Sex Female 5:13 PM CDT Gender Identity Female 01/08/2021 9:43 AM MANAGER COPY Sexual Orientation Straight 01/08/2021 9: 43 AM MANAGER COPY COVID-19 Exposure Response Date Recorded In the [...] Out 11/02/2024 11/02/2024 11/02/2024 4:03 PM MANAGER COPY Assessment Noted Time PHQ-9 Depression Total Score: 11 022 12:00 PM MANAGER COPY documented as of this encounter Care Teams Benefit Authorizer Relationship Specialty Start Date End Date Dasha Conway, INDUSTRIAL ARTS TEACHER- [address] [place] [address] PCP - General 11/02/24 documented as of this encounter
--- OUTSIDE RECORDS SUMMARY | 2025-02-11 18:45 | XMS_ITS | Encounter Summary ---
Author Organization [facility] - [facility] System Address [facility] [place] [address] Care Team Providers Care Tube Winder Hand Name Role Phone Dasha Conway [facility] Primary Care Provider +1- [phone] Encounter Details Date Type Department Care Team (Latest Contact Info) Description 06/21/2023 DistalMotion Message Enc [facility] Medical Group Multispecialty Care - [place] [address] [address] [place] [address] [place] [address] [place] [address] 157 [place] [address] More dexamethasone? Social History Tobacco [...] Sex Assigned at Female 01/08/2021 9:43 AM GROUT MACHINE OPERATOR Legal Sex Female 5:13 PM CDT Gender Identity Female 01/08/2021 9:43 AM GROUT MACHINE OPERATOR Sexual Orientation Straight 01/08/2021 9: 43 AM GROUT MACHINE OPERATOR documented as of this encounter [...] Rule Out 11/02/2024 11/02/2024 11/02/2024 4:03 PM GROUT MACHINE OPERATOR Assessment Noted Time PHQ-9 Depression Total Score: 11 11/05/ 022 12:00 PM GROUT MACHINE OPERATOR documented as of this encounter Care Teams Tube Winder Hand Relationship Specialty Start Date End Date Dasha Conway FNP- [address] [place] [address] PCP - General 11/02/24 documented as of this encounter
--- OUTSIDE RECORDS SUMMARY | 2025-02-11 18:45 | XMS_ITS | Encounter Summary ---
Author Organization [facility] - [facility] Address [facility] [place] [address] Care Team Providers Care Waste Reclaimer Name Role Phone Dasha Conway [facility] Primary Care Provider +1- [phone] Encounter Details Date Type Department Care Team (Latest Contact Info) Description 02/12/2024 Seeking Alphat Message Enc [facility] Medical Group Multispecialty Care - [place] [address] [address] [place] [address] [place] [address] [place] [address] [address] [place] [address] Shoulder/arm pain Social History Tobacco [...] Sex Assigned at Female 01/08/2021 9:43 AM STUDIO COORDINATOR Legal Sex Female 5:13 PM CDT Gender Identity Female 01/08/2021 9:43 AM STUDIO COORDINATOR Sexual Orientation Straight 01/08/2021 9: 43 AM STUDIO COORDINATOR documented as of this encounter Functional [...] Rule Out 11/02/2024 11/02/2024 11/02/2024 4:03 PM STUDIO COORDINATOR Assessment Noted Time PHQ-9 Depression Total Score: 7 11/16/20 23 9:57 AM STUDIO COORDINATOR documented as of this encounter Care Teams Waste Reclaimer Relationship Specialty Start Date End Date Dasha Conway FNP-STEPH [address] [place] [address] PCP - General 11/02/24 documented as of this encounter
--- OUTSIDE RECORDS SUMMARY | 2025-02-11 18:45 | XMS_ITS | Encounter Summary ---
Author Organization [facility] System Address [facility] [place] [address] Care Team Providers Care Crimper Assembler Name Role Phone Dasha Conway [facility] Primary Care Provider +1- [phone] Encounter Details Date Type Department Care Team (Late st Contact Info) Description 06/23/2023 Maven7t Message Enc [facility] Medical Group Multispecialty Care - [place] [address] [address] [place] [address] [place] [address] [place] [address] 157 [place] [address] Yeast infection Social History Tobacco [...] Sex Assigned at Female 01/08/2021 9:43 AM HEALTH ADMINISTRATION TEACHER Legal Sex Female 5:13 PM CDT Gender Identity Female 01/08/2021 9:43 AM HEALTH ADMINISTRATION TEACHER Sexual Orientation Straight 01/08/2021 9: 43 AM HEALTH ADMINISTRATION TEACHER documented as of this encounter Functional Status [...] Rule Out 11/02/2024 11/02/2024 11/02/2024 4:03 PM HEALTH ADMINISTRATION TEACHER Assessment Noted Time PHQ-9 Depression Total Score: 11 11/05/ 022 12:00 PM HEALTH ADMINISTRATION TEACHER documented as of this encounter Care Teams Crimper Assembler Relationship Specialty Start Date End Date Dasha Conway FNP- [address] [place] [address] PCP - General 11/02/24 documented as of this encounter
--- OUTSIDE RECORDS SUMMARY | 2025-02-11 18:45 | XMS_ITS | Encounter Summary ---
Author Organization [facility] - [facility] System Address [address] [place] [address] Care Team Providers Care General Internal Medicine Doctor Name Role Phone Dasha Conway [facility] Primary Care Provider +1- [phone] Encounter Details Date Type Department Care Team (Late st Contact Info) Description 02/03/2023 Foodynt Message Enc [facility] Medical Group Multispecialty Care - [place] [address] [address] [place] [address] [place] [address] [place] [address] [address] [place] [address] Kidneys Social History Tobacco Use [...] Sex Assigned at Female 01/08/2021 9:43 AM PROGRAM SERVICES ASSISTANT Legal Sex Female 5:13 PM CDT Gender Identity Female 01/08/2021 9:43 AM PROGRAM SERVICES ASSISTANT Sexual Orientation Straight 01/08/2021 9: 43 AM PROGRAM SERVICES ASSISTANT COVID-19 Exposure Response Date Recorded In [...] Rule Out 11/02/2024 11/02/2024 11/02/2024 4:03 PM PROGRAM SERVICES ASSISTANT Assessment Noted Time PHQ-9 Depression Total Score: 11 022 12:00 PM PROGRAM SERVICES ASSISTANT documented as of this encounter Care Teams General Internal Medicine Doctor Relationship Specialty Start Date End Date Dasha Conway FNP-BC [address] [place] [address] PCP - General 11/02/24 documented as of this encounter
--- OUTSIDE RECORDS SUMMARY | 2025-02-11 18:45 | XMS_ITS | Encounter Summary ---
Author Organization [facility] System Address [facility] [place] [address] Care Team Providers Care Warehouse Shipping Clerk Name Role Phone Dasha Conway [facility] Primary Care Provider +1- [phone] Encounter Details Date Type Department Care Team (Late st Contact Info) Description 06/14/2023 Softdeskt Message Enc [facility] Medical Group Multispecialty Care - [place] [address] [address] [place] [address] [place] [address] [place] [address] [address] [place] [address] GI cocktail Social History Tobacco [...] Sex Assigned at Female 01/08/2021 9:43 AM STABILIZING MACHINE OPERATOR Legal Sex Female 5:13 PM CDT Gender Identity Female 01/08/2021 9:43 AM STABILIZING MACHINE OPERATOR Sexual Orientation Straight 01/08/2021 9: 43 AM STABILIZING MACHINE OPERATOR documented as of this encounter [...] Rule Out 11/02/2024 11/02/2024 11/02/2024 4:03 PM STABILIZING MACHINE OPERATOR Assessment Noted Time PHQ-9 Depression Total Score: 11 11/05/ 022 12:00 PM STABILIZING MACHINE OPERATOR documented as of this encounter Care Teams Warehouse Shipping Clerk Relationship Specialty Start Date End Date Dasha Conway FNP- [address] [place] [address] PCP - General 11/02/24 documented as of this encounter
--- OUTSIDE RECORDS SUMMARY | 2025-02-11 18:45 | XMS_ITS | Encounter Summary ---
Author Organization [facility] - [facility] Address [facility] [place] [address] Care Team Providers Care Senior Marketing Associate Name Role Phone Dasha Conway [facility] Primary Care Provider +1- [phone] Encounter Details Date Type Department Care Team (Late st Contact Info) Description 05/18/2023 MyChart Message Enc [facility] Medical Group - [facility] [address] [place], [place] [address] [facility] Provider Air Quality Message Social History Tobacco [...] Sex Assigned at Female 01/08/2021 9:43 AM INSIGHTS MANAGER Legal Sex Female 5:13 PM CDT Gender Identity Female 01/08/2021 9:43 AM INSIGHTS MANAGER Sexual Orientation Straight 01/08/2021 9: 43 AM INSIGHTS MANAGER documented as of this encounter Functional [...] Rule Out 11/02/2024 11/02/2024 11/02/2024 4:03 PM INSIGHTS MANAGER Assessment Noted Time PHQ-9 Depression Total Score: 11 11/05/ 022 12:00 PM INSIGHTS MANAGER documented as of this encounter Care Teams Senior Marketing Associate Relationship Specialty Start Date End Date Dasha Conway, FISH AGENT- [address] [place] [address] PCP - General 11/02/24 documented as of this encounter
--- OUTSIDE RECORDS SUMMARY | 2025-02-11 18:45 | XMS_ITS | Encounter Summary ---
Author Organization [facility] System Address [facility] [place] [address] Care Team Providers Care Bonded Structures Repairer Name Role Phone Dasha Conway [facility] Primary Care Provider +1- [phone] Encounter Details Date Type Department Care Team (Late st Contact Info) Description 09/14/2023 Znodet Message Enc [facility] Medical Group Multispecialty Care - [place] [address] [address] [place] [address] [place] [address] [place] [address] [address] [place] [address] Chest xray Social History Tobacco [...] Sex Assigned at Female 01/08/2021 9:43 AM ROLL PICKER Legal Sex Female 5:13 PM CDT Gender Identity Female 01/08/2021 9:43 AM ROLL PICKER Sexual Orientation Straight 01/08/2021 9: 43 AM ROLL PICKER documented as of this encounter Functional Status [...] Rule Out 11/02/2024 11/02/2024 11/02/2024 4:03 PM ROLL PICKER Assessment Noted Time PHQ-9 Depression Total Score: 11 11/05/2 022 12:00 PM ROLL PICKER documented as of this encounter Care Teams Bonded Structures Repairer Relationship Specialty Start Date End Date Dasha Conway FNP- [address] [place] [address] PCP - General 11/02/24 documented as of this encounter
--- OUTSIDE RECORDS SUMMARY | 2025-02-11 18:45 | XMS_ITS | Encounter Summary ---
Author Organization [facility] System Address [facility] [place] [address] Care Team Providers Care Cafeteria Associate Name Role Phone Dasha Conway [facility] Primary Care Provider +1- [phone] Encounter Details Date Type Department Care Team (Late st Contact Info) Description 08/24/2023 Actifiot Message Enc [facility] Medical Group Multispecialty Care - [place] [address] [address] [place] [address] [place] [address] [place] [address] [address] [place] [address] GI doctor Social History Tobacco [...] Sex Assigned at Female 01/08/2021 9:43 AM VAMP MARKER Legal Sex Female 5:13 PM CDT Gender Identity Female 01/08/2021 9:43 AM VAMP MARKER Sexual Orientation Straight 01/08/2021 9: 43 AM VAMP MARKER documented as of this encounter Functional Status [...] Rule Out 11/02/2024 11/02/2024 11/02/2024 4:03 PM VAMP MARKER Assessment Noted Time PHQ-9 Depression Total Score: 11 11/05/ 022 12:00 PM VAMP MARKER documented as of this encounter Care Teams Cafeteria Associate Relationship Specialty Start Date End Date Dasha Conway FNP- [address] [place] [address] PCP - General 11/02/24 documented as of this encounter
--- OUTSIDE RECORDS SUMMARY | 2025-02-11 18:45 | XMS_ITS | Encounter Summary ---
Author Organization [facility] - [facility] Address [address] [place] [address] Care Team Providers Care Precision Instrument Maker Name Role Phone Dasha Conway [facility] Primary Care Provider +1- [phone] Encounter Details Date Type Department Care Team (Latest Contact Info) Description 01/13/[address] [facility] Medical Group Multispecialty Care - [place] [address] [address] [address] [place] [address] [place] [address] [place] [address] [address] [place] [address] Fasting sugar 139 Social History [...] Sex Assigned at Female 01/08/2021 9:43 AM MALE MODEL Legal Sex Female 5:13 PM CDT Gender Identity Female 01/08/2021 9:43 AM MALE MODEL Sexual Orientation Straight 01/08/2021 9: 43 AM MALE MODEL COVID-19 Exposure Response Date Recorded In the last 10 days, have asif rodriguez been in contact with someone who was confirmed or suspected to have Coronavirus/COVID-19? No / Unsure 01/11/2023 8:54 AM MALE MODEL documented as of this encounter Functional Status [...] Rule Out 11/02/2024 11/02/2024 11/02/2024 4:03 PM MALE MODEL Assessment Noted Time PHQ-9 Depression Total Score: 11 022 12:00 PM MALE MODEL documented as of this encounter Care Teams Precision Instrument Maker Relationship Specialty Start Date End Date Dasha Conway FNP-BC [address] [place] [address] PCP - General 11/02/24 documented as of this encounter
--- OUTSIDE RECORDS SUMMARY | 2025-02-11 18:45 | XMS_ITS | Encounter Summary ---
Author Organization [facility] Address [facility] [place] [address] Care Team Providers Care Power Press Tender Name Role Phone Dasha Conway [facility] Primary Care Provider +1- [phone] Encounter Details Date Type Department Care Team (Latest Contact Info) Description 09/13/2023 [employer] Message Enc [facility] Medical Group Multispecialty Care - [place] [address] [address] [address] [place] [address] [place] [address] [place] [address] [address] [place] [address] Unsure what to do Social [...] Sex Assigned at Female 01/08/2021 9:43 AM CLOTH WEIGHER Legal Sex Female 5:13 PM CDT Gender Identity Female 01/08/2021 9:43 AM CLOTH WEIGHER Sexual Orientation Straight 01/08/2021 9: 43 AM CLOTH WEIGHER documented as of this encounter Functional Status [...] Rule Out 11/02/2024 11/02/2024 11/02/2024 4:03 PM CLOTH WEIGHER Assessment Noted Time PHQ-9 Depression Total Score: 11 11/05/2 022 12:00 PM CLOTH WEIGHER documented as of this encounter Care Teams Power Press Tender Relationship Specialty Start Date End Date Dasha Conway FNP-STEPH [address] [place] [address] PCP - General 11/02/24 documented as of this encounter
--- OUTSIDE RECORDS SUMMARY | 2025-02-11 18:45 | XMS_ITS | Encounter Summary ---
Author Organization [facility] Address [facility] [place] [address] Care Team Providers Care Traffic Sergeant Name Role Phone Dasha Conway [facility] Primary Care Provider +1- [phone] Encounter Details Date Type Department Care Team (Late st Contact Info) Description 07/11/2023 Performablet Message Enc [facility] Medical Group Multispecialty Care - [place] [address] [address] [address] [place] [address] [place] [address] [place] [address] [address] [place] [address] Relief Social History Tobacco Use [...] Sex Assigned at Female 01/08/2021 9:43 AM HAND SIGN WRITER Legal Sex Female 5:13 PM CDT Gender Identity Female 01/08/2021 9:43 AM HAND SIGN WRITER Sexual Orientation Straight 01/08/2021 9: 43 AM HAND SIGN WRITER documented as of this encounter Functional Status [...] Rule Out 11/02/2024 11/02/2024 11/02/2024 4:03 PM HAND SIGN WRITER Assessment Noted Time PHQ-9 Depression Total Score: 11 022 12:00 PM HAND SIGN WRITER documented as of this encounter Care Teams Traffic Sergeant Relationship Specialty Start Date End Date Dasha Conway FNP- [address] [place] [address] PCP - General 11/02/24 documented as of this encounter
--- OUTSIDE RECORDS SUMMARY | 2025-02-11 18:45 | XMS_ITS | Encounter Summary ---
Author Organization [facility] - [facility] Address [address] [place] [address] Care Team Providers Care Display Department Manager Name Role Phone Dasha Conway [facility] Primary Care Provider +1- [phone] Encounter Details Date Type Department Care Team (Latest Contact Info) Description 04/24/2023 Axilicat Message Enc [facility] Medical Group Multispecialty Care - [place] [address] [address] [address] [place] [address] Curtis Diaz MD [address] [facility] [address] [place] [address] Pelvic pain on right side [...] Sex Assigned at Female 01/08/2021 9:43 AM SCANNING SUPERVISOR Legal Sex Female 5:13 PM CDT Gender Identity Female 01/08/2021 9:43 AM SCANNING SUPERVISOR Sexual Orientation Straight 01/08/2021 9: 43 AM SCANNING SUPERVISOR COVID-19 Exposure Response Date Recorded In [...] Rule Out 11/02/2024 11/02/2024 11/02/2024 4:03 PM SCANNING SUPERVISOR Assessment Noted Time PHQ-9 Depression Total Score: 11 12/2 022 12:00 PM SCANNING SUPERVISOR documented as of this encounter Care Teams Display Department Manager Relationship Specialty Start Date End Date Dasha Conway FNP- [address] [place] [address] PCP - General 11/02/24 documented as of this encounter
--- OUTSIDE RECORDS SUMMARY | 2025-02-11 18:45 | XMS_ITS | Encounter Summary ---
Author Organization [facility] - [facility] Address [facility] [place] [address] Care Team Providers Care Cover Making Machine Operator Name Role Phone Dasha Conway [facility] Primary Care Provider +1- [phone] Encounter Details Date Type Department Care Team (Latest Contact Info) Description 07/06/2023 X1 Technologiest Message Enc [facility] Medical Group Multispecialty Care - [place] [address] [address] [address] [place] [address] [place] [address] [place] [address] 157 [place] [address] Pain meds for mouth Social [...] Assigned at Female 01/08/2021 9:43 AM HOTEL OPERATION MANAGER Legal Sex Female 5:13 PM CDT Gender Identity Female 01/08/2021 9:43 AM HOTEL OPERATION MANAGER Sexual Orientation Straight 01/08/2021 9: 43 AM HOTEL OPERATION MANAGER documented as of this encounter Functional [...] Out 11/02/2024 11/02/2024 11/02/2024 4:03 PM HOTEL OPERATION MANAGER Assessment Noted Time PHQ-9 Depression Total Score: 11 11/05/2 022 12:00 PM HOTEL OPERATION MANAGER documented as of this encounter Care Teams Cover Making Machine Operator Relationship Specialty Start Date End Date Dasha Conway FNP-STEPH [address] [place] [address] PCP - General 11/02/24 documented as of this encounter
--- OUTSIDE RECORDS SUMMARY | 2025-02-11 18:45 | XMS_ITS | Encounter Summary ---
Author Organization [facility] - [facility] Address [facility]6 [place] [address] Care Team Providers Care Master Scheduler Name Role Phone Dasha Conway Erlin [facility] Primary Care Provider +1- [phone] Encounter Details Date Type Department Care Team (Latest Contact Info) Description 11/23/2020 [employer] Message Enc [facility] Medical Group Multispecialty Care - [place] [address] [address] [address] [place] [address] [place] [address] [place] [address] [address] [place] [address] RE: Follow Up/Update Social History [...] Sex Assigned at Female 01/08/2021 9:43 AM PRESSURE CONTROLLER Legal Sex Female 5:13 PM CDT Gender Identity Female 01/08/2021 9:43 AM PRESSURE CONTROLLER Sexual Orientation Straight 01/08/2021 9: 43 AM PRESSURE CONTROLLER COVID-19 Exposure Response Date Recorded In the last month, have you been in contact with someone who was confirmed or suspected to have Coronavirus / COVID-19? No / Unsure 11/24/2020 8:33 AM PRESSURE CONTROLLER documented as of this encounter Plan of Treatment Not on file documented as of this encounter Visit Diagnoses Not on filedocumented in this encounter Additional Health Concerns Infection Onset Date Last Indicated Resolved Time 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 06/30/2017 COVID-19 Rule Out 12/16/2020 12/16/2020 12/17/2020 4:31 PM PRESSURE CONTROLLER COVID-19 Rule Out 06/05/2021 06/05/2021 06/05/2021 12:31 PM CDT COVID-19 Rule Out 10/23/2021 10/23/2021 10/23/2021 9:25 AM PRESSURE CONTROLLER COVID-19 Rule Out 10/23/2021 10/23/2021 10/24/2021 12:21 AM PRESSURE CONTROLLER COVID-19 Rule Out 01/15/2022 01/15/2022 01/20/2022 10:53 AM PRESSURE CONTROLLER COVID-19 Rule Out 04/21/2022 04/21/2022 04/21/2022 11:42 AM CDT COVID-19 Rule Out 04/21/2022 04/21/2022 04/26/2022 7:02 AM CDT COVID-19 Rule Out 10/06/2022 10/06/2022 10/06/2022 1:21 PM PRESSURE CONTROLLER COVID-19 Rule Out 10/06/2022 10/06/2022 10/07/2022 3:34 PM PRESSURE CONTROLLER COVID-19 Rule Out 09/14/2023 09/14/2023 09/14/2023 3:48 PM CDT COVID-19 Rule Out 11/02/2024 11/02/2024 11/02/2024 4:03 PM PRESSURE CONTROLLER Assessment Noted Time PHQ-9 Depression Total Score: 13 020 1:12 PM CDT documented as of this encounter Care Teams Master Scheduler Relationship Specialty Start Date End Date Dasha Conway, MEDICAL EQUIPMENT REPAIRER- [address] [place] [address] PCP - General 11/02/24 documented as of this encounter
--- OUTSIDE RECORDS SUMMARY | 2025-02-11 18:45 | XMS_ITS | Encounter Summary ---
Author Organization [facility] - [facility] Address [facility] [place] [address] Care Team Providers Care Wagon Person Name Role Phone Dasha Conway Erlin [facility] Primary Care Provider +1- [phone] Encounter Details Date Type Department Care Team (Late st Contact Info) Description 10/23/2020 REHt Message Enc [facility] Medical Group Multispecialty Care - [place] [address] [address] [address] [place] [address] [place] [address] [place] [address] 157 [place] [address] omeprazole Social History Tobacco Use [...] Sex Assigned at Female 01/08/2021 9:43 AM EMPLOYEE OPERATIONS EXAMINER Legal Sex Female 5:13 PM CDT Gender Identity Female 01/08/2021 9:43 AM EMPLOYEE OPERATIONS EXAMINER Sexual Orientation Straight 01/08/2021 9: 43 AM EMPLOYEE OPERATIONS EXAMINER COVID-19 Exposure Response Date Recorded In the last month, have you been in contact with someone who was confirmed or suspected to have Coronavirus / COVID-19? No / Unsure 10/24/2020 10:40 AM EMPLOYEE OPERATIONS EXAMINER documented as of this encounter Plan of Treatment Not on file documented as of this encounter Visit Diagnoses Not on filedocumented in this encounter Additional Health Concerns Infection Onset Date Last Indicated Resolved Time 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 06/30/2017 COVID-19 Rule Out 12/16/2020 12/16/2020 12/17/2020 4:31 PM EMPLOYEE OPERATIONS EXAMINER COVID-19 Rule Out 06/05/2021 06/05/2021 06/05/2021 12:31 PM CDT COVID-19 Rule Out 10/23/2021 10/23/2021 10/23/2021 9:25 AM EMPLOYEE OPERATIONS EXAMINER COVID-19 Rule Out 10/23/2021 10/23/2021 10/24/2021 12:21 AM EMPLOYEE OPERATIONS EXAMINER COVID-19 Rule Out 01/15/2022 01/15/2022 01/20/2022 10:53 AM EMPLOYEE OPERATIONS EXAMINER COVID-19 Rule Out 04/21/2022 04/21/2022 04/21/2022 11:42 AM CDT COVID-19 Rule Out 04/21/2022 04/21/2022 04/26/2022 7:02 AM CDT COVID-19 Rule Out 10/06/2022 10/06/2022 10/06/2022 1:21 PM EMPLOYEE OPERATIONS EXAMINER COVID-19 Rule Out 10/06/2022 10/06/2022 10/07/2022 3:34 PM EMPLOYEE OPERATIONS EXAMINER COVID-19 Rule Out 09/14/2023 09/14/2023 09/14/2023 3:48 PM CDT COVID-19 Rule Out 11/02/2024 11/02/2024 11/02/2024 4:03 PM EMPLOYEE OPERATIONS EXAMINER Assessment Noted Time PHQ-9 Depression Total Score: 13 020 1:12 PM CDT documented as of this encounter Care Teams Wagon Person Relationship Specialty Start Date End Date Dasha Conway FNP- [address] [place] [address] PCP - General 11/02/24 documented as of this encounter
--- OUTSIDE RECORDS SUMMARY | 2025-02-11 18:46 | XMS_ITS | Encounter Summary ---
Author Organization [facility] System Address [address] [place] [address] Care Team Providers Care Herpetology Teacher Name Role Phone Dasha Conway [facility] Primary Care Provider +1- [phone] Encounter Details Date Type Department Care Team (Late st Contact Info) Description 03/25/2021 Favoet Message Enc [facility] Medical Group Multispecialty Care - [address] [place] [address] Mela Elaine, SHOE REPAIR COBBLER RE: Appointment Social History Tobacco Use Types [...] Sex Assigned at Female 01/08/2021 9:43 AM WILDLAND FIRE FIGHTER Legal Sex Female 5:13 PM CDT Gender Identity Female 01/08/2021 9:43 AM WILDLAND FIRE FIGHTER Sexual Orientation Straight 01/08/2021 9: 43 AM WILDLAND FIRE FIGHTER COVID-19 Exposure Response Date Recorded In the [...] Rule Out 10/23/2021 10/23/2021 10/23/2021 9:25 AM WILDLAND FIRE FIGHTER COVID-19 Rule Out 10/23/2021 10/23/2021 10/24/2021 12:21 AM WILDLAND FIRE FIGHTER COVID-19 Rule Out 01/15/2022 01/15/2022 01/20/2022 10:53 AM WILDLAND FIRE FIGHTER COVID-19 Rule Out 04/21/2022 04/21/2022 04/21/2022 11:42 AM CDT COVID-19 Rule Out 04/21/2022 04/21/2022 04/26/2022 7:02 AM CDT COVID-19 Rule Out 10/06/2022 10/06/2022 10/06/2022 1:21 PM WILDLAND FIRE FIGHTER COVID-19 Rule Out 10/06/2022 10/06/2022 10/07/2022 3:34 PM WILDLAND FIRE FIGHTER COVID-19 Rule Out 09/14/2023 09/14/2023 09/14/2023 3:48 PM CDT COVID-19 Rule Out 11/02/2024 11/02/2024 11/02/2024 4:03 PM WILDLAND FIRE FIGHTER Assessment Noted Time PHQ-9 Depression Total Score: 13 020 1:12 PM CDT documented as of this encounter Care Teams Herpetology Teacher Relationship Specialty Start Date End Date Dasha Conway FNP- [address] [place] [address] PCP - General 11/02/24 documented as of this encounter
--- OUTSIDE RECORDS SUMMARY | 2025-02-11 18:46 | XMS_ITS | Encounter Summary ---
Author Organization [facility] - [facility] System Address [facility] [place] [address] Care Team Providers Care Metal Window Screen Assembler Name Role Phone Dasha Conway Erlin [facility] Primary Care Provider +1- [phone] Encounter Details Date Type Department Care Team (Latest Contact Info) Description 12/03/2020 Pharmacahart Message Enc [facility] Medical Group Multispecialty Care - [place] [address] [address] [place] [address] [place] [address] [place] [address] 157 [place] [address] Medication Questions Social History Tobacco [...] Sex Assigned at Female 01/08/2021 9:43 AM SIGNING TEACHER Legal Sex Female 5:13 PM CDT Gender Identity Female 01/08/2021 9:43 AM SIGNING TEACHER Sexual Orientation Straight 01/08/2021 9: 43 AM SIGNING TEACHER COVID-19 Exposure Response Date Recorded In the last month, have you been in contact with someone who was confirmed or suspected to have Coronavirus / COVID-19? No / Unsure 11/28/2020 3:29 PM SIGNING TEACHER documented as of this encounter Plan of Treatment Not on file documented as of this encounter Visit Diagnoses Not on filedocumented in this encounter Additional Health Concerns Infection Onset Date Last Indicated Resolved Time 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 06/30/2017 COVID-19 Rule Out 12/16/2020 12/16/2020 12/17/2020 4:31 PM SIGNING TEACHER COVID-19 Rule Out 06/05/2021 06/05/2021 06/05/2021 12:31 PM CDT COVID-19 Rule Out 10/23/2021 10/23/2021 10/23/2021 9:25 AM SIGNING TEACHER COVID-19 Rule Out 10/23/2021 10/23/2021 10/24/2021 12:21 AM SIGNING TEACHER COVID-19 Rule Out 01/15/2022 01/15/2022 01/20/2022 10:53 AM SIGNING TEACHER COVID-19 Rule Out 04/21/2022 04/21/2022 04/21/2022 11:42 AM CDT COVID-19 Rule Out 04/21/2022 04/21/2022 04/26/2022 7:02 AM CDT COVID-19 Rule Out 10/06/2022 10/06/2022 10/06/2022 1:21 PM SIGNING TEACHER COVID-19 Rule Out 10/06/2022 10/06/2022 10/07/2022 3:34 PM SIGNING TEACHER COVID-19 Rule Out 09/14/2023 09/14/2023 09/14/2023 3:48 PM CDT COVID-19 Rule Out 11/02/2024 11/02/2024 11/02/2024 4:03 PM SIGNING TEACHER Assessment Noted Time PHQ-9 Depression Total Score: 13 020 1:12 PM CDT documented as of this encounter Care Teams Metal Window Screen Assembler Relationship Specialty Start Date End Date Dasha Conway, SCRIPT ARTIST- [address] [place] [address] PCP - General 11/02/24 documented as of this encounter
--- OUTSIDE RECORDS SUMMARY | 2025-02-11 18:46 | XMS_ITS | Encounter Summary ---
Author Organization [facility] Address [address] [place] [address] Phone Care Team Providers Care Command And Control Specialist Name Role Phone Curtis Diaz MD Primary Care Provider [phone] Donovan Parks MD Unavailable Dasha Conway NP Primary Care Provider [phone] Encounter Details Date Type Department Care Team [...] on file Legal Sex Female 3:37 AM DIGITAL IMAGING SPECIALIST Gender Identity Female 10/02/2019 1:12 AM DIGITAL IMAGING SPECIALIST Sexual Orientation Straight 10/02/2019 1: 12 AM DIGITAL IMAGING SPECIALIST Occupation Industry Job Start Date Job End [...] on filedocumented in this encounter Care Teams Command And Control Specialist Relationship Specialty Start Date End Date Curtis Diaz MD [address] [place] [address] PCP - General Internal Medicine 06/12/21 08/22/24 Dasha Conway NP [address] [place] [address] PCP - General Family Medicine 08/23/24 Donovan Parks MD [address] [place] [address] Referring Physician Gastroenterology 06/12/21 documented as of this encounter
--- OUTSIDE RECORDS SUMMARY | 2025-02-11 18:46 | XMS_ITS | Encounter Summary ---
Author Organization [facility] - [facility] Address [address] [place] [address] Care Team Providers Care Energy Manager Name Role Phone Dasha Conway [facility] Primary Care Provider [phone]- [phone] Encounter Details Date Type Department Care Team (Latest Contact Info) Description 03/02/2021 Kar[employer] Message Enc [facility] Medical Group Multispecialty Care - [address] [place] [address] Mela Elaine, LEAD PROGRAMMER RE: Follow Up/Update Social History Tobacco Use [...] Sex Assigned at Female 01/08/2021 9:43 AM LOCATE TECHNICIAN Legal Sex Female 5:13 PM CDT Gender Identity Female 01/08/2021 9:43 AM LOCATE TECHNICIAN Sexual Orientation Straight 01/08/2021 9: 43 AM LOCATE TECHNICIAN COVID-19 Exposure Response Date Recorded In [...] Rule Out 10/23/2021 10/23/2021 10/23/2021 9:25 AM LOCATE TECHNICIAN COVID-19 Rule Out 10/23/2021 10/23/2021 10/24/2021 12:21 AM LOCATE TECHNICIAN COVID-19 Rule Out 01/15/2022 01/15/2022 01/20/2022 10:53 AM LOCATE TECHNICIAN COVID-19 Rule Out 04/21/2022 04/21/2022 04/21/2022 11:42 AM CDT COVID-19 Rule Out 04/21/2022 04/21/2022 04/26/2022 7:02 AM CDT COVID-19 Rule Out 10/06/2022 10/06/2022 10/06/2022 1:21 PM LOCATE TECHNICIAN COVID-19 Rule Out 10/06/2022 10/06/2022 10/07/2022 3:34 PM LOCATE TECHNICIAN COVID-19 Rule Out 09/14/2023 09/14/2023 09/14/2023 3:48 PM CDT COVID-19 Rule Out 11/02/2024 11/02/2024 11/02/2024 4:03 PM LOCATE TECHNICIAN Assessment Noted Time PHQ-9 Depression Total Score: 020 1:12 PM CDT documented as of this encounter Care Teams Energy Manager Relationship Specialty Start Date End Date Dasha Conway FNP-BC [address] [place] [address] PCP - General 11/02/24 documented as of this encounter
--- OUTSIDE RECORDS SUMMARY | 2025-02-11 18:46 | XMS_ITS | Encounter Summary ---
Author Organization [facility] - [facility] Address [facility] [place] [address] Care Team Providers Care Salt Grinder Name Role Phone Dasha Conway Erlin [facility] Primary Care Provider [phone]- [phone] Encounter Details Date Type Department Care Team (Latest Contact Info) Description 11/27/2020 [employer] Message Enc [facility] Medical Group Multispecialty Care - [place] [address] [address] [address] [place] [address] [place] [address] [place] [address] [address] [place] [address] Medication Questions Social History Tobacco [...] Sex Assigned at Female 01/08/2021 9:43 AM NUTRITION CONSULTANT Legal Sex Female 5:13 PM CDT Gender Identity Female 01/08/2021 9:43 AM NUTRITION CONSULTANT Sexual Orientation Straight 01/08/2021 9: 43 AM NUTRITION CONSULTANT COVID-19 Exposure Response Date Recorded In the last month, have you been in contact with someone who was confirmed or suspected to have Coronavirus / COVID-19? No / Unsure 11/28/2020 3:29 PM NUTRITION CONSULTANT documented as of this encounter Plan of Treatment Not on file documented as of this encounter Visit Diagnoses Not on filedocumented in this encounter Additional Health Concerns Infection Onset Date Last Indicated Resolved Time 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 06/30/2017 COVID-19 Rule Out 12/16/2020 12/16/2020 12/17/2020 4:31 PM NUTRITION CONSULTANT COVID-19 Rule Out 06/05/2021 06/05/2021 06/05/2021 12:31 PM CDT COVID-19 Rule Out 10/23/2021 10/23/2021 10/23/2021 9:25 AM NUTRITION CONSULTANT COVID-19 Rule Out 10/23/2021 10/23/2021 10/24/2021 12:21 AM NUTRITION CONSULTANT COVID-19 Rule Out 01/15/2022 01/15/2022 01/20/2022 10:53 AM NUTRITION CONSULTANT COVID-19 Rule Out 04/21/2022 04/21/2022 04/21/2022 11:42 AM CDT COVID-19 Rule Out 04/21/2022 04/21/2022 04/26/2022 7:02 AM CDT COVID-19 Rule Out 10/06/2022 10/06/2022 10/06/2022 1:21 PM NUTRITION CONSULTANT COVID-19 Rule Out 10/06/2022 10/06/2022 10/07/2022 3:34 PM NUTRITION CONSULTANT COVID-19 Rule Out 09/14/2023 09/14/2023 09/14/2023 3:48 PM CDT COVID-19 Rule Out 11/02/2024 11/02/2024 11/02/2024 4:03 PM NUTRITION CONSULTANT Assessment Noted Time PHQ-9 Depression Total Score: 13 020 1:12 PM CDT documented as of this encounter Care Teams Salt Grinder Relationship Specialty Start Date End Date Dasha Conway, EXECUTIVE COMMUNICATIONS MANAGER- [address] [place] [address] PCP - General 11/02/24 documented as of this encounter
--- OUTSIDE RECORDS SUMMARY | 2025-02-11 18:46 | XMS_ITS | Encounter Summary ---
Author Organization [facility] Address [facility] [place] [address] Care Team Providers Care Business Operations Specialist Name Role Phone Dasha Conway [facility] Primary Care Provider +1- [phone] Encounter Details Date Type Department Care Team (Late st Contact Info) Description 12/08/2020 Prep for Procedure [facility] [address] [place] [address] Donovan Parks MD [address] [address] Social History Tobacco Use Types [...] Assigned at Female 01/08/2021 9:43 AM PETROLEUM GEOLOGIST Legal Sex Female 5:13 PM CDT Gender Identity Female 01/08/2021 9:43 AM PETROLEUM GEOLOGIST Sexual Orientation Straight 01/08/2021 9: 43 AM PETROLEUM GEOLOGIST COVID-19 Exposure Response Date Recorded In the last month, have you been in contact with someone who was confirmed or suspected to have Coronavirus / COVID-19? No / Unsure 12/10/2020 10:34 PM PETROLEUM GEOLOGIST documented as of this encounter Plan of Treatment Not on file documented as of this encounter Results * PRE-SURGICAL/PRE-PROCEDURE CORONAVIRUS (COVID 19) (12/16/2020 2:19 PM PETROLEUM GEOLOGIST) CORONAVIRUS SARS COV 2 PCR (RESP) NOT DETECTED NOT DETECTED 12/17/2020 4:31 PM PETROLEUM GEOLOGIST [facility] Comment: A Not Detected (negative) test [...] providers and patients using the following websites: https://www.[facility].WearPoint/home/Covid-19/HCP/NAAT/fact-sheet2 https://www.[facility].[employer]Point/home/Covid-19/Patients/NAAT/ fact-sheet2 This test has been authorized by the FDA under an Emergency Use Authorization (EUA) for use by authorized laboratories. Due to the current public health emergency, [facility] is receiving a high volume of samples [...] about COVID-19 can be found at the [facility] website: www.[place].WearPoint/Covid19. Test performed at [facility] [address] [place] [address] Director: CURRY BAEZA DO,MPH FIRST TEST NO 12/16/2020 2:10 PM PETROLEUM GEOLOGIST [facility] EMPLOYED IN HEALTHCARE NO 12/16/2020 2:10 PM PETROLEUM GEOLOGIST [facility] SYMPTOMATIC DEFINED BY CDC NO 12/16/2020 2:10 PM PETROLEUM GEOLOGIST [facility] DATE OF SYMPTOM ONSET UNKNOWN 12/16/2020 2:35 PM PETROLEUM GEOLOGIST [facility] HOSPITALIZATION STATUS NO 12/16/2020 2:10 PM PETROLEUM GEOLOGIST [facility] PATIENT IN ICU NO 12/16/2020 2:10 PM PETROLEUM GEOLOGIST [facility] RESIDENT OF [facility] NO 12/16/2020 2:10 PM PETROLEUM GEOLOGIST [facility] NOT 12/16/2020 2:10 PM PETROLEUM GEOLOGIST [facility] PATIENT'S RACE WHITE OR 12/16/2020 2:10 PM PETROLEUM GEOLOGIST [facility] ETHNICITY NONHISPANIC 12/16/2020 2:10 PM PETROLEUM GEOLOGIST [facility] SOURCE (QST) NASOPHARYNGEAL SWAB 12/16/2020 2:10 PM PETROLEUM GEOLOGIST [facility] NASOPHARYNGEAL SWAB / Unknown 12/16/2020 2:19 PM PETROLEUM GEOLOGIST us Donovan Parks MD MICROBIOLOGY - GENERAL ORDERABLE S Final Result [facility] [address] [place] [address], [facility] [address] [place] [address], documented in this encounter Visit Diagnoses Diagnosis Preop testing- Primary Preoperative examination, unspecified documented in this encounter Additional Health Concerns Infection Onset Date Last Indicated Resolved Time 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 06/30/2017 COVID-19 Rule Out 12/16/2020 12/16/2020 12/17/2020 4:31 PM PETROLEUM GEOLOGIST COVID-19 Rule Out 06/05/2021 06/05/2021 06/05/2021 12:31 PM CDT COVID-19 Rule Out 10/23/2021 10/23/2021 10/23/2021 9:25 AM PETROLEUM GEOLOGIST COVID-19 Rule Out 10/23/2021 10/23/2021 10/24/2021 12:21 AM PETROLEUM GEOLOGIST COVID-19 Rule Out 01/15/2022 01/15/2022 01/20/2022 10:53 AM PETROLEUM GEOLOGIST COVID-19 Rule Out 04/21/2022 04/21/2022 04/21/2022 11:42 AM CDT COVID-19 Rule Out 04/21/2022 04/21/2022 04/26/2022 7:02 AM CDT COVID-19 Rule Out 10/06/2022 10/06/2022 10/06/2022 1:21 PM PETROLEUM GEOLOGIST COVID-19 Rule Out 10/06/2022 10/06/2022 10/07/2022 3:34 PM PETROLEUM GEOLOGIST COVID-19 Rule Out 09/14/2023 09/14/2023 09/14/2023 3:48 PM CDT COVID-19 Rule Out 11/02/2024 11/02/2024 11/02/2024 4:03 PM PETROLEUM GEOLOGIST Assessment Noted Time PHQ-9 Depression Total Score: 020 1:12 PM CDT documented as of this encounter Care Teams Business Operations Specialist Relationship Specialty Start Date End Date Dasha Conway FNP- [address] [place] [address] PCP - General 11/02/24 documented as of this encounter
--- OUTSIDE RECORDS SUMMARY | 2025-02-11 18:46 | XMS_ITS | Encounter Summary ---
Author Organization [facility] Address [address] [place] [address] Care Team Providers Care Deputy United [place] Marshal Name Role Phone Dasha Conway [facility] Primary Care Provider +1- [phone] Encounter Details Date Type Department Care Team (Latest Contact Info) Description 03/30/2021 [employer] Foundryt Message Enc [facility] Medical Group Multispecialty Care - [address] [place] [address] Mela Elaine, MANAGER LAN RE: Test Results Social History Tobacco Use [...] Sex Assigned at Female 01/08/2021 9:43 AM DESK REPORTER Legal Sex Female 5:13 PM CDT Gender Identity Female 01/08/2021 9:43 AM DESK REPORTER Sexual Orientation Straight 01/08/2021 9: 43 AM DESK REPORTER COVID-19 Exposure Response Date Recorded In the [...] Rule Out 10/23/2021 10/23/2021 10/23/2021 9:25 AM DESK REPORTER COVID-19 Rule Out 10/23/2021 10/23/2021 10/24/2021 12:21 AM DESK REPORTER COVID-19 Rule Out 01/15/2022 01/15/2022 01/20/2022 10:53 AM DESK REPORTER COVID-19 Rule Out 04/21/2022 04/21/2022 04/21/2022 11:42 AM CDT COVID-19 Rule Out 04/21/2022 04/21/2022 04/26/2022 7:02 AM CDT COVID-19 Rule Out 10/06/2022 10/06/2022 10/06/2022 1:21 PM DESK REPORTER COVID-19 Rule Out 10/06/2022 10/06/2022 10/07/2022 3:34 PM DESK REPORTER COVID-19 Rule Out 09/14/2023 09/14/2023 09/14/2023 3:48 PM CDT COVID-19 Rule Out 11/02/2024 11/02/2024 11/02/2024 4:03 PM DESK REPORTER Assessment Noted Time PHQ-9 Depression Total Score: 22 021 9:18 AM CDT documented as of this encounter Care Teams Deputy United [place] Marshal Relationship Specialty Start Date End Date Dasha Conway FNP- [address] [place] [address] PCP - General 11/02/24 documented as of this encounter
--- OUTSIDE RECORDS SUMMARY | 2025-02-11 18:46 | XMS_ITS | Encounter Summary ---
Author Organization [facility] Address [address] [place] [address] Care Team Providers Care Research Instrumentation Technician Name Role Phone Dasha Conway [facility] Primary Care Provider +1- [phone] Encounter Details Date Type Department Care Team (Late st Contact Info) Description 04/04/2024 WikiWand Message Enc [facility] Medical Group Multispecialty Care - [address] [place] [address] [employer], [facility] Provider culture Social History Tobacco Use Types [...] Sex Assigned at Female 01/08/2021 9:43 AM PROP CUTTER Legal Sex Female 5:13 PM CDT Gender Identity Female 01/08/2021 9:43 AM PROP CUTTER Sexual Orientation Straight 01/08/2021 9: 43 AM PROP CUTTER documented as of this encounter Functional Status [...] Rule Out 11/02/2024 11/02/2024 11/02/2024 4:03 PM PROP CUTTER Assessment Noted Time PHQ-9 Depression Total Score: 7 11/16/20 23 9:57 AM PROP CUTTER documented as of this encounter Care Teams Research Instrumentation Technician Relationship Specialty Start Date End Date Dasha Conway, SMOCKER- [address] [place] [address] PCP - General 11/02/24 documented as of this encounter
--- OUTSIDE RECORDS SUMMARY | 2025-02-11 18:46 | XMS_ITS | Encounter Summary ---
Author Organization [facility] Address [address] [place] [address] Care Team Providers Care Vocational Technical Education Director Name Role Phone Dasha Conway [facility] Primary Care Provider +1- [phone] Encounter Details Date Type Department Care Team (Latest Contact Info) Description 02/28/2021 WomStreett Message Enc [facility] Medical Group Multispecialty Care - [address] [place] [address] Mela Elaine, ASSEMBLER GARMENT FORM RE: Follow Up/Update Social History Tobacco Use [...] Sex Assigned at Female 01/08/2021 9:43 AM REORDERING CLERK Legal Sex Female 5:13 PM CDT Gender Identity Female 01/08/2021 9:43 AM REORDERING CLERK Sexual Orientation Straight 01/08/2021 9: 43 AM REORDERING CLERK COVID-19 Exposure Response Date Recorded In [...] Rule Out 10/23/2021 10/23/2021 10/23/2021 9:25 AM REORDERING CLERK COVID-19 Rule Out 10/23/2021 10/23/2021 10/24/2021 12:21 AM REORDERING CLERK COVID-19 Rule Out 01/15/2022 01/15/2022 01/20/2022 10:53 AM REORDERING CLERK COVID-19 Rule Out 04/21/2022 04/21/2022 04/21/2022 11:42 AM CDT COVID-19 Rule Out 04/21/2022 04/21/2022 04/26/2022 7:02 AM CDT COVID-19 Rule Out 10/06/2022 10/06/2022 10/06/2022 1:21 PM REORDERING CLERK COVID-19 Rule Out 10/06/2022 10/06/2022 10/07/2022 3:34 PM REORDERING CLERK COVID-19 Rule Out 09/14/2023 09/14/2023 09/14/2023 3:48 PM CDT COVID-19 Rule Out 11/02/2024 11/02/2024 11/02/2024 4:03 PM REORDERING CLERK Assessment Noted Time PHQ-9 Depression Total Score: 020 1:12 PM CDT documented as of this encounter Care Teams Vocational Technical Education Director Relationship Specialty Start Date End Date Dasha Conway FNP-BC [address] [place] [address] PCP - General 11/02/24 documented as of this encounter
--- OUTSIDE RECORDS SUMMARY | 2025-02-11 18:46 | XMS_ITS | Encounter Summary ---
Author Organization [facility] - [facility] Address [address] [place] [address] Care Team Providers Care Wind Operations Supervisor Name Role Phone Dasha Conway [facility] Primary Care Provider +1- [phone] Encounter Details Date Type Department Care Team (Latest Contact Info) Description 04/01/2021 E-Ductiont Message Enc [facility] Medical Group Multispecialty Care - [address] [address] [address] [place] [address] [place] [address] [place] [address] [address] [place] [address] RE: Follow Up/Update Social History [...] Sex Assigned at Female 01/08/2021 9:43 AM MACHINE MAINTENANCE REPAIRER Legal Sex Female 5:13 PM CDT Gender Identity Female 01/08/2021 9:43 AM MACHINE MAINTENANCE REPAIRER Sexual Orientation Straight 01/08/2021 9: 43 AM MACHINE MAINTENANCE REPAIRER COVID-19 Exposure Response Date Recorded In the [...] Rule Out 10/23/2021 10/23/2021 10/23/2021 9:25 AM MACHINE MAINTENANCE REPAIRER COVID-19 Rule Out 10/23/2021 10/23/2021 10/24/2021 12:21 AM MACHINE MAINTENANCE REPAIRER COVID-19 Rule Out 01/15/2022 01/15/2022 01/20/2022 10:53 AM MACHINE MAINTENANCE REPAIRER COVID-19 Rule Out 04/21/2022 04/21/2022 04/21/2022 11:42 AM CDT COVID-19 Rule Out 04/21/2022 04/21/2022 04/26/2022 7:02 AM CDT COVID-19 Rule Out 10/06/2022 10/06/2022 10/06/2022 1:21 PM MACHINE MAINTENANCE REPAIRER COVID-19 Rule Out 10/06/2022 10/06/2022 10/07/2022 3:34 PM MACHINE MAINTENANCE REPAIRER COVID-19 Rule Out 09/14/2023 09/14/2023 09/14/2023 3:48 PM CDT COVID-19 Rule Out 11/02/2024 11/02/2024 11/02/2024 4:03 PM MACHINE MAINTENANCE REPAIRER Assessment Noted Time PHQ-9 Depression Total Score: 22 021 9:18 AM CDT documented as of this encounter Care Teams Wind Operations Supervisor Relationship Specialty Start Date End Date Dasha Conway, TRAVEL COORDINATOR-STEPH [address] [place] [address] PCP - General 11/02/24 documented as of this encounter
--- OUTSIDE RECORDS SUMMARY | 2025-02-11 18:46 | XMS_ITS | Encounter Summary ---
Author Organization [facility] - [facility] Address [address] [place] [address] Care Team Providers Care Fire Prevention Engineer Name Role Phone Dasha Conway [facility] Primary Care Provider +1- [phone] Encounter Details Date Type Department Care Team (Latest Contact Info) Description 03/16/2021 [employer] Message Enc [facility] Medical Group Multispecialty Care - [address] [address] [address] [place] [address] [place] [address] [place] [address] [address] [place] [address] RE: Medication Questions Social History [...] Sex Assigned at Female 01/08/2021 9:43 AM OBJECT ORIENTED PROGRAMMER Legal Sex Female 5:13 PM CDT Gender Identity Female 01/08/2021 9:43 AM OBJECT ORIENTED PROGRAMMER Sexual Orientation Straight 01/08/2021 9: 43 AM OBJECT ORIENTED PROGRAMMER COVID-19 Exposure Response Date Recorded In the [...] Rule Out 10/23/2021 10/23/2021 10/23/2021 9:25 AM OBJECT ORIENTED PROGRAMMER COVID-19 Rule Out 10/23/2021 10/23/2021 10/24/2021 12:21 AM OBJECT ORIENTED PROGRAMMER COVID-19 Rule Out 01/15/2022 01/15/2022 01/20/2022 10:53 AM OBJECT ORIENTED PROGRAMMER COVID-19 Rule Out 04/21/2022 04/21/2022 04/21/2022 11:42 AM CDT COVID-19 Rule Out 04/21/2022 04/21/2022 04/26/2022 7:02 AM CDT COVID-19 Rule Out 10/06/2022 10/06/2022 10/06/2022 1:21 PM OBJECT ORIENTED PROGRAMMER COVID-19 Rule Out 10/06/2022 10/06/2022 10/07/2022 3:34 PM OBJECT ORIENTED PROGRAMMER COVID-19 Rule Out 09/14/2023 09/14/2023 09/14/2023 3:48 PM CDT COVID-19 Rule Out 11/02/2024 11/02/2024 11/02/2024 4:03 PM OBJECT ORIENTED PROGRAMMER Assessment Noted Time PHQ-9 Depression Total Score: 020 1:12 PM CDT documented as of this encounter Care Teams Fire Prevention Engineer Relationship Specialty Start Date End Date Dasha Conway, PRODUCTION ILLUSTRATOR- [address] [place] [address] PCP - General 11/02/24 documented as of this encounter
--- OUTSIDE RECORDS SUMMARY | 2025-02-11 18:46 | XMS_ITS | Encounter Summary ---
Author Organization [facility] - [facility] Address [address] [place] [address] Care Team Providers Care Meat Hostess Name Role Phone Dasha Conway [facility] Primary Care Provider +1- [phone] Encounter Details Date Type Department Care Team (Late st Contact Info) Description 04/01/2024 Toolwit Message Enc [facility] Medical Group Multispecialty Care - [address] [address] [address] [place] [address] [place] [address] [place] [address] [address] [place] [address] Fluconazole Social History Tobacco Use [...] Sex Assigned at Female 01/08/2021 9:43 AM FOOD AND BEVERAGE OUTLETS MANAGER Legal Sex Female 5:13 PM CDT Gender Identity Female 01/08/2021 9:43 AM FOOD AND BEVERAGE OUTLETS MANAGER Sexual Orientation Straight 01/08/2021 9: 43 AM FOOD AND BEVERAGE OUTLETS MANAGER documented as of this encounter Functional [...] Rule Out 11/02/2024 11/02/2024 11/02/2024 4:03 PM FOOD AND BEVERAGE OUTLETS MANAGER Assessment Noted Time PHQ-9 Depression Total Score: 7 11/16/20 23 9:57 AM FOOD AND BEVERAGE OUTLETS MANAGER documented as of this encounter Care Teams Meat Hostess Relationship Specialty Start Date End Date Dasha Conway FNP- [address] [place] [address] PCP - General 11/02/24 documented as of this encounter
--- OUTSIDE RECORDS SUMMARY | 2025-02-11 18:46 | XMS_ITS | Encounter Summary ---
Author Organization [facility] Address [address] [place] [address] Care Team Providers Care Garment Parts Cutter Hand Name Role Phone Dasha Conway [facility] Primary Care Provider +1- [phone] Encounter Details Date Type Department Care Team (Late st Contact Info) Description 03/24/2021 [employer] Message Enc [facility] Medical Group Multispecialty Care - [address] [address] [address] [place] [address] [place] [address] [place] [address] [address] [place] [address] Question Social History Tobacco Use [...] Sex Assigned at Female 01/08/2021 9:43 AM AVIATION MAINTENANCE INSTRUCTOR Legal Sex Female 5:13 PM CDT Gender Identity Female 01/08/2021 9:43 AM AVIATION MAINTENANCE INSTRUCTOR Sexual Orientation Straight 01/08/2021 9: 43 AM AVIATION MAINTENANCE INSTRUCTOR COVID-19 Exposure Response Date Recorded In [...] Rule Out 10/23/2021 10/23/2021 10/23/2021 9:25 AM AVIATION MAINTENANCE INSTRUCTOR COVID-19 Rule Out 10/23/2021 10/23/2021 10/24/2021 12:21 AM AVIATION MAINTENANCE INSTRUCTOR COVID-19 Rule Out 01/15/2022 01/15/2022 01/20/2022 10:53 AM AVIATION MAINTENANCE INSTRUCTOR COVID-19 Rule Out 04/21/2022 04/21/2022 04/21/2022 11:42 AM CDT COVID-19 Rule Out 04/21/2022 04/21/2022 04/26/2022 7:02 AM CDT COVID-19 Rule Out 10/06/2022 10/06/2022 10/06/2022 1:21 PM AVIATION MAINTENANCE INSTRUCTOR COVID-19 Rule Out 10/06/2022 10/06/2022 10/07/2022 3:34 PM AVIATION MAINTENANCE INSTRUCTOR COVID-19 Rule Out 09/14/2023 09/14/2023 09/14/2023 3:48 PM CDT COVID-19 Rule Out 11/02/2024 11/02/2024 11/02/2024 4:03 PM AVIATION MAINTENANCE INSTRUCTOR Assessment Noted Time PHQ-9 Depression Total Score: 020 1:12 PM CDT documented as of this encounter Care Teams Garment Parts Cutter Hand Relationship Specialty Start Date End Date Dasha Conway FNP-STEPH [address] [place] [address] PCP - General 11/02/24 documented as of this encounter
--- OUTSIDE RECORDS SUMMARY | 2025-02-11 18:46 | XMS_ITS | Encounter Summary ---
Author Organization [facility] - [facility] Address [address] [place] [address] Care Team Providers Care Cooking Instructor Name Role Phone Dasha Conway [facility] Primary Care Provider +1- [phone] Encounter Details Date Type Department Care Team (Late st Contact Info) Description 02/03/2021 MyChart Message Enc [facility] Medical Group Multispecialty Care - [place] [address] [address] [address] [place] [address] [place] [address] [place] [address] 157 [place] [address] RE: Question Social History Tobacco [...] Sex Assigned at Female 01/08/2021 9:43 AM TECHNICAL ASSISTANT Legal Sex Female 5:13 PM CDT Gender Identity Female 01/08/2021 9:43 AM TECHNICAL ASSISTANT Sexual Orientation Straight 01/08/2021 9: 43 AM TECHNICAL ASSISTANT COVID-19 Exposure Response Date Recorded In [...] Rule Out 10/23/2021 10/23/2021 10/23/2021 9:25 AM TECHNICAL ASSISTANT COVID-19 Rule Out 10/23/2021 10/23/2021 10/24/2021 12:21 AM TECHNICAL ASSISTANT COVID-19 Rule Out 01/15/2022 01/15/2022 01/20/2022 10:53 AM TECHNICAL ASSISTANT COVID-19 Rule Out 04/21/2022 04/21/2022 04/21/2022 11:42 AM CDT COVID-19 Rule Out 04/21/2022 04/21/2022 04/26/2022 7:02 AM CDT COVID-19 Rule Out 10/06/2022 10/06/2022 10/06/2022 1:21 PM TECHNICAL ASSISTANT COVID-19 Rule Out 10/06/2022 10/06/2022 10/07/2022 3:34 PM TECHNICAL ASSISTANT COVID-19 Rule Out 09/14/2023 09/14/2023 09/14/2023 3:48 PM CDT COVID-19 Rule Out 11/02/2024 11/02/2024 11/02/2024 4:03 PM TECHNICAL ASSISTANT Assessment Noted Time PHQ-9 Depression Total Score: 020 1:12 PM CDT documented as of this encounter Care Teams Cooking Instructor Relationship Specialty Start Date End Date Dasha Conway, SOLDER DEPOSIT OPERATOR- [address] [place] [id number] PCP - General 11/02/24 documented as of this encounter
--- OUTSIDE RECORDS SUMMARY | 2025-02-11 18:46 | XMS_ITS | Clinical Summary ---
Author Organization [facility] Address [facility] [place] [address] Care Team Providers Care Inspector Ball Points Name Role Phone Dasha Conway Erlin [facility] Primary Care Provider +1- [phone] Allergies Active Allergy Reactions Criticality Noted Date [...] 11/16/2023 Pulmonary emphysema, unspeci fied emphysema type ([facility]) 09/14/2022 Abdominal pain 06/13/2022 Peripheral vascular disease, unspecified 022 Vertigo 01/29/2022 Type 2 diabetes mellitus wit h hyperglycemia, without long-term current use of insulin ([facility]) 11/03/2021 Overview (11/03/2021): On glipizide Assessment & Plan (02/02/2022 12:08 PM CDT): On Glipizide and controlled. Colitis 05/20/2021 Carpal tunnel syndrome of right wrist 01/27/2021 Shoulder pain, left 01/13/[address] 12/11/2020 History of esophageal stricture 12/01/2020 Overview (12/01/2020): Added automatically from request for surgery [id number] Regurgitation of food 12/01/2020 Overview (12/01/2020): Added automatically from request for surgery [id number] GERD (gastroesophageal reflux disease) Overview (12/01/2020): Added automatically from request for surgery [id number] Precordial pain 09/26/2020 H/O food allergy 09/09/2020 BMI 31.0-31.9,adult 09/09/2020 Dysphagia 08/06/2020 Overview (08/06/2020): Added automatically from request for surgery [id number] PTSD (post-traumatic stress disorder) 07/31/2020 Pes anserine bursitis 07/17/2020 Impaired glucose tolerance 03/13/2020 Iron deficiency 03/13/2020 Vitamin D deficiency 03/13/2020 Overview (10/06/2020): nml folate Hyperlipidemia associated wi th type 2 diabetes mellitus ([facility]) 03/12/2020 Other ill-defined heart diseases 03/12/2020 Overweight 03/12/2020 Palpitations 03/12/2020 Antiphospholipid syndrome (HHS/HCC) 02/20/2020 Overview (02/02/2022): Controlled. On Xarelto 20 mg daily. Patient will follow with her ship laborer as planned. Assessment & Plan (02/02/2022 12:09 PM CDT): Controlled. On Xarelto 20 mg daily. Patient will follow with her ship laborer as planned. MTHFR mutation 01/28/2020 Overview (11/24/2020): Controlled. On Xarelto 20 mg daily. On Asprin. Patient will follow with her ship laborer as planned. Alopecia 01/17/2020 Overview (08/31/2023): Alopecia;Recorded Elsewhere: No Location: [facility] Source: EHR Chronic: N Practice ID: [...] benefit and potential interaction with Dulera per sap bpc architect. Started LDN 4.5mg daily on 04/12/2020. Denies side effects but also denies any benefit at this time. Still complaining of severe generalized pain, fatigue, and insomnia. States dilaudid BID helps her hand pain. Recommend she follow up with pcp as they were originally prescribing this. [facility] Continue LDN 4.5mg daily and give this more time tot take effect. Avoid Cymbalta and amitriptyline as patient reports suicidal ideation with antidepressants in the past. Failed gabapentin and had side effects to Lyrica. Follow up in 4-6 weeks. Sooner if needed. Discussed with Dr. Soler. Pelvic and perineal pain 08/09/2019 Overview (08/31/2023): Pelvic and perineal pain;Recorded Elsewhere: No Location: [facility] Source: EHR Chronic: N Practice ID: [id number] Billable Time: 09:45:00 AM IBS (irritable bowel syndrome) 06/15/2019 Syncope 06/10/2019 Chronic pain 05/21/2019 Nicotine dependence 09/21/2016 Factor V Leiden (HHS/HCC) 08/26/2015 Overview (02/02/2022): No acute concerns. Continue with Asprin and Xarelto 20 mg daily. Patient will follow up with ship laborer for future appointments Assessment & Plan (02/02/2022 12:10 PM CDT): No acute concerns. Continue with Asprin and Xarelto 20 mg daily. Patient will follow up with ship laborer for future appointments Hematologic disorder 08/23/2015 Schizoaffective disorder ([facility]) 04/12 Overview (11/24/2020): -Patient currently stable [...] Overview (08/31/2023): Endometriosis, unspecified;Recorded Elsewhere: No Location: [facility] Source: EHR Chronic: N Practice ID: [id number] Billable Time: 09:45:00 AM Arthritis 09/21/2010 Atypical bipolar affective disorder ([facility]) 08/06/2009 Overview (02/02/2022): -Patient currently stable [...] - future appointments with her psychiatrist Asthma ([facility]) 1980 Resolved Problems Problem Noted Date Diagnosed Date Resolved Date Acute pancreatitis ([facility]) 03/04/2021 04/03/2021 IGTN (ingrowing toe nail) 12/11/2020 Blurry vision, bilateral 08/07/2020 Acute nonintractable headach e, unspecified headache type 08/07/2020 08/20/2020 Weakness 08/07/2020 08/20/2020 Facial numbness 08/07/2020 09/09/2020 Hyperglycemia 08/06/2020 09/09/2020 Difficult or painful urination 06/23/2020 08/06/2020 Encounter for health-related screening 03/12/2020 10/13/2020 Pericardial effusion ([facility]) 10/04/2019 08/06/2020 Overview (06/23/2020): Overview: Echo (08/12/18): moderate pericardial effusion with no evidence of tamponade. EF 60-70% Echo (08/22/18) trivial (barely visible) pericardial effusion, EF 50-55% Anemia 06/15/2019 09/09/2020 COPD (chronic obstructive pu lmonary disease) ([facility]) 06/15/2019 09/09/2020 Tobacco abuse 06/15/2019 08/20/2020 [...] 08/23/2015 08/20/2020 Endometritis 04/04/2015 04/03/2021 Oligohydramnios antepartum ([facility]) 03/12/2015 06/23/2020 , normal, incidental ([facility]) 03/07/2015 06/23/2020 Lower abdominal pain 01/17/2015 020 , incidental ([facility]) 01/11/2015 06/23/2020 Post-op pain 08/24/2012 06/23/2020 [...] Sex Assigned at Female 01/08/2021 9:43 AM BURR BENCH OPERATOR Legal Sex Female 5:13 PM CDT Gender Identity Female 01/08/2021 9:43 AM BURR BENCH OPERATOR Sexual Orientation Straight 01/08/2021 9: 43 AM BURR BENCH OPERATOR Last Filed Vital Signs Vital Sign Reading Time Taken Comments Blood Pressure 142/88 11/02/2024 6:07 PM BURR BENCH OPERATOR Pulse 74 11/02/2024 6:07 PM BURR BENCH OPERATOR Temperature 36.6 C (97.9 F) 11/02/2024 6:07 PM BURR BENCH OPERATOR Respiratory Rate 18 11/02/2024 6:07 PM BURR BENCH OPERATOR Oxygen Saturation 97% 11/02/2024 6:07 PM BURR BENCH OPERATOR Inhaled Oxygen Concentration - - Weight 61.2 kg (134 lb 14.7 oz) 11/02/2024 2:41 PM BURR BENCH OPERATOR Height 160 cm (5' 3 ) 11/02/2024 2:41 PM BURR BENCH OPERATOR Body Mass Index 23.9 11/02/2024 2:41 PM BURR BENCH OPERATOR Plan of Treatment Health Maintenance Due [...] 10/21, 01/30/2022, Additional history exists PHQ-2 (Physician Randolph) 11/21/2024 11/16/2023 Mammogram Screening 02/16/2025 02/16/2023, 07/29/2021, [...] independently General No Cary rdz, Joselito Saez return agent airport Procedure Name Priority Date/Time Associated Diagnosis Comments LIPID PANEL Routine 11/16/2023 10:34 AM BURR BENCH OPERATOR Annual physical exam HEMOGLOBIN, GLYCOSYLATED Routine 11/16/2023 10:34 AM BURR BENCH OPERATOR Annual physical exam MG DIAG IMPLANT W DEBRA MAGGIE DIGI Routine 02/16/2023 10:36 AM CDT Abnormal mammogram of both breasts HEPATITIS PANEL,ACUTE Routine 06/09/2022 11:03 AM CDT Chronic fatigue Elevated liver enzymes DIABETIC RETINOPATHY EXAM (NEGATIVE)(SCAN ORDER) Routine 02/10/2022 from Last 3 Months or Most Recently Relevant to Health Maintenance Results * (ABNORMAL) HEMOGLOBIN, GLYCOSYLATED (11/16/2023 10:34 AM BURR BENCH OPERATOR) HGB A1C 6.3(H) <5.7 % of total Hgb [facility] Comment: For someone without known diabetes, a [...] diabetes for children. 11/16/2023 10:3 4 AM BURR BENCH OPERATOR 11/17/2023 3:17 AM BURR BENCH OPERATOR Narrative Resulting Agency Comment Performing Organization Information: Site ID: [id number] Name: Norbert Castellanos Address: [address] [address] Director: Trinity Perez MD Curtis Diaz MD LABORATORY Final Result [facility] [address] [address], [place] * (ABNORMAL) LIPID PANEL (11/16/2023 10:34 AM BURR BENCH OPERATOR) CHOLESTEROL 165 <200 mg/dL [facility] HDL 29(L) > OR = 50 mg/dL [facility] TRIGLYCERIDES 163(H) <150 mg/dL [facility] LDL (CALCULATED) 108(H) mg/dL (calc) [facility] Comment: Reference range: <100 Desirable range <100 mg/dL for primary prevention; <70 mg/dL for patients with CHD or diabetic patients with > or = 2 CHD risk factors. LDL-C is now calculated using the Chinedu-Nica calculation, which is a validated novel method providing better accuracy than the Friedewald equation in the estimation of LDL-C. Chinedu TATE et al. LINN. 2013;310(19): 2895-9307 (http://education.Cobra Stylet.Philrealestates/faq/MGJ217) CHOL/HDL RATIO 5.7(H) <5.0 (calc) [facility] NON HDL CHOLESTEROL 136(H) <130 mg/dL (calc) [facility] Comment: For patients with diabetes plus 1 major ASCVD risk factor, treating to a non-HDL-C goal of <100 mg/dL (LDL-C of <70 mg/dL) is considered a therapeutic option. 11/16/2023 10:3 4 AM BURR BENCH OPERATOR 11/17/2023 3:17 AM BURR BENCH OPERATOR Narrative Resulting Agency Comment Performing Organization Information: Site ID: CARMELITA Name: Norbert Castellanos Address: [address] [address] Director: Trinity Perez MD Curtis Diaz MD LABORATORY Final Result [facility] [address] [address], [place] * MG DIAG IMPLANT W DEBRA MAGGIE DIGI (02/16/2023 10:36 AM CDT) Anatomical Region Laterality Modality Breast Bilateral Mammography 02/16/2023 11:2 5 AM CDT Narrative 02/16/2023 11:29 AM CDT EXAMINATION: Digital bilateral diagnostic mammogram with 3-D tomography and right breast ultrasound [id number] EXAM DATE/TIME: 02/16/2023 10:26 AM REASON FOR [...] Comment: For additional information, please refer to http://Geofusion.Conergy/faq/CUR377 (This link is being provided for informational/ [...] a test for HCV RNA (test code 83020) is suggested. For additional information please refer to http://Geofusion.Conergy/faq/RKG20m1 (This link is being provided for informational/ educational purposes only.) 06/09/2022 11:0 3 AM CDT 06/10/2022 6:17 AM CDT us Curtis Diaz MD LABORATORY Final Result [facility] [address] [address] * DIABETIC RETINOPATHY EXAM (NEGATIVE)(SCAN) (02/10/2022) us Documents Scanned SCANNING Final Result [facility] ONBASE from Last 3 Months or Most Recently Relevant to Health Maintenance Additional Health Concerns Infection Onset Date Last Indicated 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 06/30/2017 Insurance MEDICAID MEDICAID Advance Directives * Full Code (Latest Code Status on File) Date Activated Date Inactivated Comments 06/13/2022 11:37 PM 06/14/2022 5:06 PM * Full Code Date Activated Date Inactivated Comments 01/29/2022 8:23 PM 01/31/2022 12:48 PM Care Teams Inspector Ball Points Relationship Specialty Start Date End Date Dasha Conway, CHRISTINE-STEPH [address] [place] [address] PCP - General 11/02/24
--- OUTSIDE RECORDS SUMMARY | 2025-02-11 18:46 | XMS_ITS | Encounter Summary ---
Author Organization [facility] Address [facility] [place] [address] Care Team Providers Care Crust Sorter Name Role Phone Dasha Conway Erlin [facility] Primary Care Provider [phone]- [phone] Encounter Details Date Type Department Care Team (Latest Contact Info) Description 10/20/2020 KaChing!t Message Enc [facility] Medical Group Multispecialty Care - [place] [address] [address] [place] [address] [place] [address] [place] [address] [address] [place] [address] Follow Up/Update Social History Tobacco [...] Sex Assigned at Female 01/08/2021 9:43 AM GLOBAL CLIMATE CHANGE RESEARCHER Legal Sex Female 5:13 PM CDT Gender Identity Female 01/08/2021 9:43 AM GLOBAL CLIMATE CHANGE RESEARCHER Sexual Orientation Straight 01/08/2021 9: 43 AM GLOBAL CLIMATE CHANGE RESEARCHER COVID-19 Exposure Response Date Recorded In the last month, have you been in contact with someone who was confirmed or suspected to have Coronavirus / COVID-19? No / Unsure 10/22/2020 12:45 PM GLOBAL CLIMATE CHANGE RESEARCHER documented as of this encounter Plan of Treatment Not on file documented as of this encounter Visit Diagnoses Not on filedocumented in this encounter Additional Health Concerns Infection Onset Date Last Indicated Resolved Time 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 06/30/2017 COVID-19 Rule Out 12/16/2020 12/16/2020 12/17/2020 4:31 PM GLOBAL CLIMATE CHANGE RESEARCHER COVID-19 Rule Out 06/05/2021 06/05/2021 06/05/2021 12:31 PM CDT COVID-19 Rule Out 10/23/2021 10/23/2021 10/23/2021 9:25 AM GLOBAL CLIMATE CHANGE RESEARCHER COVID-19 Rule Out 10/23/2021 10/23/2021 10/24/2021 12:21 AM GLOBAL CLIMATE CHANGE RESEARCHER COVID-19 Rule Out 01/15/2022 01/15/2022 01/20/2022 10:53 AM GLOBAL CLIMATE CHANGE RESEARCHER COVID-19 Rule Out 04/21/2022 04/21/2022 04/21/2022 11:42 AM CDT COVID-19 Rule Out 04/21/2022 04/21/2022 04/26/2022 7:02 AM CDT COVID-19 Rule Out 10/06/2022 10/06/2022 10/06/2022 1:21 PM GLOBAL CLIMATE CHANGE RESEARCHER COVID-19 Rule Out 10/06/2022 10/06/2022 10/07/2022 3:34 PM GLOBAL CLIMATE CHANGE RESEARCHER COVID-19 Rule Out 09/14/2023 09/14/2023 09/14/2023 3:48 PM CDT COVID-19 Rule Out 11/02/2024 11/02/2024 11/02/2024 4:03 PM GLOBAL CLIMATE CHANGE RESEARCHER Assessment Noted Time PHQ-9 Depression Total Score: 13 020 1:12 PM CDT documented as of this encounter Care Teams Crust Sorter Relationship Specialty Start Date End Date Dasha Conway, CONTROL ROOM SUPERVISOR- [address] [place] [address] PCP - General 11/02/24 documented as of this encounter
--- OUTSIDE RECORDS SUMMARY | 2025-02-11 18:46 | XMS_ITS | Encounter Summary ---
Author Organization [facility] - [facility] Address [address] [place] [address] Care Team Providers Care Clin Tech Name Role Phone Dasha Conway [facility] Primary Care Provider [phone]- [phone] Encounter Details Date Type Department Care Team (Latest Contact Info) Description 04/18/2024 POWWOWt Message Enc [facility] Medical Group Multispecialty Care - [place] [address] [address] [place] [address] [place] [address] [place] [address] [address] [place] [address] Thrush/fluconazole Social History Tobacco Use [...] Assigned at Female 01/08/2021 9:43 AM SENIOR CLERK Legal Sex Female 5:13 PM CDT Gender Identity Female 01/08/2021 9:43 AM SENIOR CLERK Sexual Orientation Straight 01/08/2021 9: 43 AM SENIOR CLERK documented as of this encounter Functional [...] Out 11/02/2024 11/02/2024 11/02/2024 4:03 PM SENIOR CLERK Assessment Noted Time PHQ-9 Depression Total Score: 7 11/16/20 23 9:57 AM SENIOR CLERK documented as of this encounter Care Teams Clin Tech Relationship Specialty Start Date End Date Dasha Conway FNP-STEPH [address] [place] [address] PCP - General 11/02/24 documented as of this encounter
--- OUTSIDE RECORDS SUMMARY | 2025-02-11 18:46 | XMS_ITS | Encounter Summary ---
Author Organization [facility] Address [address] [place] [address] Phone Care Team Providers Care Certified Surgical Technologist Name Role Phone Curtis Diaz MD Primary Care Provider [phone] Donovan Pakrs MD Unavailable Dasha Conway NP Primary Care Provider [phone] Encounter Details Date Type Department Care Team [...] on file Legal Sex Female 3:37 AM DOPE HEATER Gender Identity Female 10/02/2019 1:12 AM DOPE HEATER Sexual Orientation Straight 10/02/2019 1: 12 AM DOPE HEATER Occupation Industry Job Start Date Job End [...] on filedocumented in this encounter Care Teams Certified Surgical Technologist Relationship Specialty Start Date End Date Curtis Diaz MD [address] [place] [address] PCP - General Internal Medicine 06/12/21 08/22/24 Dasha Conway NP [address] [place] [address] PCP - General Family Medicine 08/23/24 Donovan Parks MD [address] [place] [address] Referring Physician Gastroenterology 06/12/21 documented as of this encounter
--- OUTSIDE RECORDS SUMMARY | 2025-02-11 18:46 | XMS_ITS | Encounter Summary ---
Author Organization [facility] Address [address] [place] [address] Care Team Providers Care Hydraulic Barker Operator Name Role Phone Dasha Conway [facility] Primary Care Provider [phone] Encounter Details Date Type Department Care Team (Late st Contact Info) Description 05/04/2024 [facility] Message Enc [facility] Medical Group Multispecialty Care - [place] [address] [place], [place] [id number] Melida Wiley, CUTTER OPERATOR HELPER [address] [place], [place] [id number] Itraconazole Social History Tobacco Use Types Packs/Day [...] Sex Assigned at Female 01/08/2021 9:43 AM BANDAGE MAKER Legal Sex Female 5:13 PM CDT Gender Identity Female 01/08/2021 9:43 AM BANDAGE MAKER Sexual Orientation Straight 01/08/2021 9: 43 AM BANDAGE MAKER documented as of this encounter Functional Status [...] Rule Out 11/02/2024 11/02/2024 11/02/2024 4:03 PM BANDAGE MAKER Assessment Noted Time PHQ-9 Depression Total Score: 7 11/16/20 23 9:57 AM BANDAGE MAKER documented as of this encounter Care Teams Hydraulic Barker Operator Relationship Specialty Start Date End Date Dasha Conway, HIDE DYER- [address] [place] [address] PCP - General 11/02/24 documented as of this encounter
--- OUTSIDE RECORDS SUMMARY | 2025-02-11 18:46 | XMS_ITS | Encounter Summary ---
Author Organization [facility] Address [facility] [place] [address] Care Team Providers Care Records Management Coordinator Name Role Phone Dasha Conway Erlin [facility] Primary Care Provider [phone]- [phone] Encounter Details Date Type Department Care Team (Latest Contact Info) Description 10/21/2020 Ad Knightshart Message Enc [facility] Medical Group Multispecialty Care - [place] [address] [address] [place] [address] [place] [address] [place] [address] [address] [place] [address] RE: Medication Questions Social History [...] Sex Assigned at Female 01/08/2021 9:43 AM MILIEU COORDINATOR Legal Sex Female 5:13 PM CDT Gender Identity Female 01/08/2021 9:43 AM MILIEU COORDINATOR Sexual Orientation Straight 01/08/2021 9: 43 AM MILIEU COORDINATOR COVID-19 Exposure Response Date Recorded In the last month, have you been in contact with someone who was confirmed or suspected to have Coronavirus / COVID-19? No / Unsure 10/24/2020 10:40 AM MILIEU COORDINATOR documented as of this encounter Plan of Treatment Not on file documented as of this encounter Visit Diagnoses Not on filedocumented in this encounter Additional Health Concerns Infection Onset Date Last Indicated Resolved Time 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 06/30/2017 COVID-19 Rule Out 12/16/2020 12/16/2020 12/17/2020 4:31 PM MILIEU COORDINATOR COVID-19 Rule Out 06/05/2021 06/05/2021 06/05/2021 12:31 PM CDT COVID-19 Rule Out 10/23/2021 10/23/2021 10/23/2021 9:25 AM MILIEU COORDINATOR COVID-19 Rule Out 10/23/2021 10/23/2021 10/24/2021 12:21 AM MILIEU COORDINATOR COVID-19 Rule Out 01/15/2022 01/15/2022 01/20/2022 10:53 AM MILIEU COORDINATOR COVID-19 Rule Out 04/21/2022 04/21/2022 04/21/2022 11:42 AM CDT COVID-19 Rule Out 04/21/2022 04/21/2022 04/26/2022 7:02 AM CDT COVID-19 Rule Out 10/06/2022 10/06/2022 10/06/2022 1:21 PM MILIEU COORDINATOR COVID-19 Rule Out 10/06/2022 10/06/2022 10/07/2022 3:34 PM MILIEU COORDINATOR COVID-19 Rule Out 09/14/2023 09/14/2023 09/14/2023 3:48 PM CDT COVID-19 Rule Out 11/02/2024 11/02/2024 11/02/2024 4:03 PM MILIEU COORDINATOR Assessment Noted Time PHQ-9 Depression Total Score: 13 020 1:12 PM CDT documented as of this encounter Care Teams Records Management Coordinator Relationship Specialty Start Date End Date Dasha Conway, ENERGY SALES CONSULTANT- [address] [place] [address] PCP - General 11/02/24 documented as of this encounter
--- OUTSIDE RECORDS SUMMARY | 2025-02-11 18:46 | XMS_ITS | Encounter Summary ---
Author Organization [facility] - [facility] Address [address] [place] [address] Care Team Providers Care Clerical Aide Teacher Name Role Phone Dasha Conway [facility] Primary Care Provider [phone] Encounter Details Date Type Department Care Team (Late st Contact Info) Description 03/03/2021 Ramenhart Message Enc [facility] Medical Group Multispecialty Care - [address] [place] [address] Mela Elaine, METAL ROOFING MECHANIC RE: Question Social History Tobacco Use Types [...] Sex Assigned at Female 01/08/2021 9:43 AM ENGRAVING SUPERVISOR Legal Sex Female 5:13 PM CDT Gender Identity Female 01/08/2021 9:43 AM ENGRAVING SUPERVISOR Sexual Orientation Straight 01/08/2021 9: 43 AM ENGRAVING SUPERVISOR COVID-19 Exposure Response Date Recorded In [...] Rule Out 10/23/2021 10/23/2021 10/23/2021 9:25 AM ENGRAVING SUPERVISOR COVID-19 Rule Out 10/23/2021 10/23/2021 10/24/2021 12:21 AM ENGRAVING SUPERVISOR COVID-19 Rule Out 01/15/2022 01/15/2022 01/20/2022 10:53 AM ENGRAVING SUPERVISOR COVID-19 Rule Out 04/21/2022 04/21/2022 04/21/2022 11:42 AM CDT COVID-19 Rule Out 04/21/2022 04/21/2022 04/26/2022 7:02 AM CDT COVID-19 Rule Out 10/06/2022 10/06/2022 10/06/2022 1:21 PM ENGRAVING SUPERVISOR COVID-19 Rule Out 10/06/2022 10/06/2022 10/07/2022 3:34 PM ENGRAVING SUPERVISOR COVID-19 Rule Out 09/14/2023 09/14/2023 09/14/2023 3:48 PM CDT COVID-19 Rule Out 11/02/2024 11/02/2024 11/02/2024 4:03 PM ENGRAVING SUPERVISOR Assessment Noted Time PHQ-9 Depression Total Score: 020 1:12 PM CDT documented as of this encounter Care Teams Clerical Aide Teacher Relationship Specialty Start Date End Date Dasha Conway FNP-BC [address] [place] [address] PCP - General 11/02/24 documented as of this encounter
[2025-02-11] MEDS: POTASSIUM CHLORIDE 20 MEQ PACKET (FOR LIQUID) 40 MEQ PO (19:28)
== END 2025-02-11 19:36 | disposition home or self-care (01) ==
PROVIDERS: Registered Nurse; Emergency Provider Emergency Medicine; PCP Nurse Practitioner Family
DX: K20.90 Esophagitis, unspecified without bleeding (principal); K29.70 Gastritis, unspecified, without bleeding; F41.8 Other specified anxiety disorders; M32.9 Systemic lupus erythematosus, unspecified; K21.9 Gastro-esophageal reflux disease without esophagitis; F25.9 Schizoaffective disorder, unspecified; Z87.891 Personal history of nicotine dependence
CPT/HCPCS: 36415; 71260; 74177; 80053; 81003; 83690; 84484; 85025; 85610; 85730; 93005; 96361; 96374; 96375; 99284; A9270; J2470; J7030; Q9967

== ENCOUNTER 2025-08-03 16:55 | Emergency (ER) | payer MEDICARE, MEDICAID, SELFPAY ==
--- OUTSIDE RECORDS SUMMARY | 2014-12-03 18:00 | XMS_ITS | Continuity of Care Document ---
Author Organization [facility] Address [address] [facility] [address] Phone Care Team Providers Care Regional Telecommunications Specialist Name Role Phone Unavailable Unavailable Unavailable Advance Directives Directive Yes / No Effective Date File Name No Information Encounters Encounter Description Practice Location Reason(s) For Visit Diagnoses Date Provider Providers Copied on Encounter [facility], [address] [facility] [place], [place], [id number], tel:[phone] [facility] No Information 201 5 No Information Referring Provider: ANDI NAPIER S, [id number] , [place], [address]. tel:[phone] Family History Family Member Type Diagnosis Age At Onset No Information Payers Payer name Insurance type Covered democrat ID Authoryovania marko(s) [facility] [id number] [facility] IN[facility]MN[facility] [id number] Social History Type Description Quantity Date Captured Comments Sex Female Smoking Status No Information Chief Complaint And Reason For Visit No Information History Of Present Illness Encounter Date Complaint History Of Prese nt Illness No Information Instructions Date Instruction Additional Infor mation No Information Assessments Type Assessment Date No Information
--- OUTSIDE RECORDS SUMMARY | 2014-12-03 18:00 | XMS_ITS | Continuity of Care Document ---
Author Organization [facility] Address [address] [facility] [place] [address] Phone Care Team Providers Care Stain Remover Name Role Phone Unavailable Unavailable Unavailable Advance Directives Directive Yes / No Effective Date File Name No Information Encounters Encounter Description Practice Location Reason(s) For Visit Diagnoses Date Provider Providers Copied on Encounter [facility], [address] [facility] [place], [place], [id number], tel:[phone] [facility] No Information 201 5 No Information Referring Provider: ANDI NAPIER S, [address] , [place], [address]. tel:[phone] Family History Family Member Type Diagnosis Age At Onset No Information Payers Payer name Insurance type Covered libertarian ID Authoryovania marko(s) [facility] [id number] [facility] INDEMNITY [id number] Social History Type Description Quantity Date Captured Comments Sex Female Smoking Status No Information Chief Complaint And Reason For Visit No Information History Of Present Illness Encounter Date Complaint History Of Prese nt Illness No Information Instructions Date Instruction Additional Infor mation No Information Assessments Type Assessment Date No Information
--- NOTE | ~2025-08-03 | XR_ITS ---
EXAMINATION: XR chest 2V, 08/03/2025 18:18 CDT HISTORY: chest pain, FLU LIKE SYMPTOMS COMPARISON: No comparisons available. Technique: 2 views obtained. Findings: The lungs are clear, no effusion. No pneumothorax. Heart is normal size. Mediastinal and hilar contours are within normal limits. Bony thorax no acute abnormality. Impression: No acute cardiopulmonary abnormality. Reviewed, dictated and finalized at location A. Impression: No acute cardiopulmonary abnormality.
[2025-08-03 16:57] VITALS: BP 155/90; PULSE 112; RESP 16; TEMP 36.9; O2SAT 100
--- OUTSIDE RECORDS SUMMARY | 2025-08-03 16:58 | XMS_ITS | Encounter Summary ---
Author Organization [facility] Address [facility] [place] [address] Care Team Providers Care Tailman Name Role Phone Dasha Conway Erlin [facility] Primary Care Provider +1- [phone] Encounter Details Date Type Department Care Team (Latest Contact Info) Description 10/26/2021 Lightspeed Message Enc [facility] Medical Group Multispecialty Care - [place] [address] [address] [place] [address] [place] [address] [place] [address] [address] [place], [place] [id number] Medication question Social History Tobacco Use Types [...] Sex Assigned at Female 01/08/2021 9:43 AM CIGARETTE MAKING MACHINE CATCHER Legal Sex Female 5:13 PM CDT Gender Identity Female 01/08/2021 9:43 AM CIGARETTE MAKING MACHINE CATCHER Sexual Orientation Straight 01/08/2021 9: 43 AM CIGARETTE MAKING MACHINE CATCHER COVID-19 Exposure Response Date Recorded In the last month, have you been in contact with someone who was confirmed or suspected to have Coronavirus / COVID-19? No / Unsure 10/22/2021 9:17 AM CIGARETTE MAKING MACHINE CATCHER documented as of this encounter Plan of Treatment Not on file documented as of this encounter Visit Diagnoses Not on filedocumented in this encounter Additional Health Concerns Infection Onset Date Last Indicated Resolved Time 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 06/30/2017 COVID-19 Rule Out 01/15/2022 01/15/2022 01/20/2022 10:53 AM CIGARETTE MAKING MACHINE CATCHER COVID-19 Rule Out 04/21/2022 04/21/2022 04/21/2022 11:42 AM CDT COVID-19 Rule Out 04/21/2022 04/21/2022 04/26/2022 7:02 AM CDT COVID-19 Rule Out 10/06/2022 10/06/2022 10/06/2022 1:21 PM CIGARETTE MAKING MACHINE CATCHER COVID-19 Rule Out 10/06/2022 10/06/2022 10/07/2022 3:34 PM CIGARETTE MAKING MACHINE CATCHER COVID-19 Rule Out 09/14/2023 09/14/2023 09/14/2023 3:48 PM CDT COVID-19 Rule Out 11/02/2024 11/02/2024 11/02/2024 4:03 PM CIGARETTE MAKING MACHINE CATCHER Assessment Noted Time PHQ-9 Depression Total Score: 22 021 9:18 AM CDT documented as of this encounter Care Teams Tailman Relationship Specialty Start Date End Date Dasha Conway FNP-STEPH [address] [place] [address] PCP - General 11/02/24 documented as of this encounter
--- OUTSIDE RECORDS SUMMARY | 2025-08-03 16:58 | XMS_ITS | Encounter Summary ---
Author Organization [facility] Address [facility] [place] [address] Care Team Providers Care Ct Tech Name Role Phone Dasha Conway Erlin [facility] Primary Care Provider +1- [phone] Encounter Details Date Type Department Care Team (Late st Contact Info) Description 08/14/2021 CrossCorehart Message Enc [facility] Medical Group Multispecialty Care - [place] [address] [address] [place], [place] [id number] [place] [address] [place] [address] [address] [place] [address] A1C results Social History Tobacco Use Types [...] Sex Assigned at Female 01/08/2021 9:43 AM PARK LANDSCAPE ARCHITECT Legal Sex Female 5:13 PM CDT Gender Identity Female 01/08/2021 9:43 AM PARK LANDSCAPE ARCHITECT Sexual Orientation Straight 01/08/2021 9: 43 AM PARK LANDSCAPE ARCHITECT COVID-19 Exposure Response Date Recorded In [...] Rule Out 10/23/2021 10/23/2021 10/23/2021 9:25 AM PARK LANDSCAPE ARCHITECT COVID-19 Rule Out 10/23/2021 10/23/2021 10/24/2021 12:21 AM PARK LANDSCAPE ARCHITECT COVID-19 Rule Out 01/15/2022 01/15/2022 01/20/2022 10:53 AM PARK LANDSCAPE ARCHITECT COVID-19 Rule Out 04/21/2022 04/21/2022 04/21/2022 11:42 AM CDT COVID-19 Rule Out 04/21/2022 04/21/2022 04/26/2022 7:02 AM CDT COVID-19 Rule Out 10/06/2022 10/06/2022 10/06/2022 1:21 PM PARK LANDSCAPE ARCHITECT COVID-19 Rule Out 10/06/2022 10/06/2022 10/07/2022 3:34 PM PARK LANDSCAPE ARCHITECT COVID-19 Rule Out 09/14/2023 09/14/2023 09/14/2023 3:48 PM CDT COVID-19 Rule Out 11/02/2024 11/02/2024 11/02/2024 4:03 PM PARK LANDSCAPE ARCHITECT Assessment Noted Time PHQ-9 Depression Total Score: 22 021 9:18 AM CDT documented as of this encounter Care Teams Ct Tech Relationship Specialty Start Date End Date Dasha Conway FNP-STEPH [address] [place] [address] PCP - General 11/02/24 documented as of this encounter
--- OUTSIDE RECORDS SUMMARY | 2025-08-03 16:58 | XMS_ITS | Encounter Summary ---
Author Organization [facility] Address [facility] [place] [address] Care Team Providers Care Gravel Roofer Name Role Phone Dasha Conway [facility] Primary Care Provider +1- [phone] Encounter Details Date Type Department Care Team (Latest Contact Info) Description 10/23/2021 Good Greenshart Message Enc [facility] Medical Group Multispecialty Care - [place] [address] [place] [address] [address] [place] [address] [place] [address] [place] [address] [address] [place], [place] [id number] Chest x-ray results Social History Tobacco Use [...] Sex Assigned at Female 01/08/2021 9:43 AM LESSON INSTRUCTOR Legal Sex Female 5:13 PM CDT Gender Identity Female 01/08/2021 9:43 AM LESSON INSTRUCTOR Sexual Orientation Straight 01/08/2021 9: 43 AM LESSON INSTRUCTOR COVID-19 Exposure Response Date Recorded In the last month, have you been in contact with someone who was confirmed or suspected to have Coronavirus / COVID-19? No / Unsure 10/22/2021 9:17 AM LESSON INSTRUCTOR documented as of this encounter Plan of Treatment Not on file documented as of this encounter Visit Diagnoses Not on filedocumented in this encounter Additional Health Concerns Infection Onset Date Last Indicated Resolved Time 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 06/30/2017 COVID-19 Rule Out 10/23/2021 10/23/2021 10/23/2021 9:25 AM LESSON INSTRUCTOR COVID-19 Rule Out 10/23/2021 10/23/2021 10/24/2021 12:21 AM LESSON INSTRUCTOR COVID-19 Rule Out 01/15/2022 01/15/2022 01/20/2022 10:53 AM LESSON INSTRUCTOR COVID-19 Rule Out 04/21/2022 04/21/2022 04/21/2022 11:42 AM CDT COVID-19 Rule Out 04/21/2022 04/21/2022 04/26/2022 7:02 AM CDT COVID-19 Rule Out 10/06/2022 10/06/2022 10/06/2022 1:21 PM LESSON INSTRUCTOR COVID-19 Rule Out 10/06/2022 10/06/2022 10/07/2022 3:34 PM LESSON INSTRUCTOR COVID-19 Rule Out 09/14/2023 09/14/2023 09/14/2023 3:48 PM CDT COVID-19 Rule Out 11/02/2024 11/02/2024 11/02/2024 4:03 PM LESSON INSTRUCTOR Assessment Noted Time PHQ-9 Depression Total Score: 22 021 9:18 AM CDT documented as of this encounter Care Teams Gravel Roofer Relationship Specialty Start Date End Date Dasha Conway FNP-STEPH [address] [place] [address] PCP - General 11/02/24 documented as of this encounter
--- OUTSIDE RECORDS SUMMARY | 2025-08-03 16:58 | XMS_ITS | Encounter Summary ---
Author Organization [facility] Address [facility] [place] [address] Care Team Providers Care Pre Press Operator Name Role Phone Dasha Conway Erlin [facility] Primary Care Provider +1- [phone] Encounter Details Date Type Department Care Team (Late st Contact Info) Description 05/06/2021 Encitet Message Enc [facility] Medical Group Multispecialty Care - [place] [address] [address] [place], [place] [phone] Curtis Diaz MD [address] [place] [address] [address] [place] [address] update Social History Tobacco Use Types Packs/Day [...] Sex Assigned at Female 01/08/2021 9:43 AM KILN CAR UNLOADER Legal Sex Female 5:13 PM CDT Gender Identity Female 01/08/2021 9:43 AM KILN CAR UNLOADER Sexual Orientation Straight 01/08/2021 9: 43 AM KILN CAR UNLOADER COVID-19 Exposure Response Date Recorded In the [...] Rule Out 10/23/2021 10/23/2021 10/23/2021 9:25 AM KILN CAR UNLOADER COVID-19 Rule Out 10/23/2021 10/23/2021 10/24/2021 12:21 AM KILN CAR UNLOADER COVID-19 Rule Out 01/15/2022 01/15/2022 01/20/2022 10:53 AM KILN CAR UNLOADER COVID-19 Rule Out 04/21/2022 04/21/2022 04/21/2022 11:42 AM CDT COVID-19 Rule Out 04/21/2022 04/21/2022 04/26/2022 7:02 AM CDT COVID-19 Rule Out 10/06/2022 10/06/2022 10/06/2022 1:21 PM KILN CAR UNLOADER COVID-19 Rule Out 10/06/2022 10/06/2022 10/07/2022 3:34 PM KILN CAR UNLOADER COVID-19 Rule Out 09/14/2023 09/14/2023 09/14/2023 3:48 PM CDT COVID-19 Rule Out 11/02/2024 11/02/2024 11/02/2024 4:03 PM KILN CAR UNLOADER Assessment Noted Time PHQ-9 Depression Total Score: 22 021 9:18 AM CDT documented as of this encounter Care Teams Pre Press Operator Relationship Specialty Start Date End Date Dasha Conway FNP-STEPH [address] [place] [address] PCP - General 11/02/24 documented as of this encounter
--- OUTSIDE RECORDS SUMMARY | 2025-08-03 16:58 | XMS_ITS | Patient Health Record ---
Author Organization [facility] Address [address] [place] [address] Care Team Providers Care Dater Assembler Name Role Phone Trino Parul Primary Care Provider Tiffani Chahal Unavailable Unavailable Allergies Allergen (clinical drug ingredient) Drug/Non Drug Allergy documented on EMR Reaction Allergy Type Onset Date Status amoxicillin / clavulanate Augmentin hives Drug Allergy Active Requip hives Drug Allergy Active PENICILLIN hives Drug Allergy Active Reason For Referral No Information Medications Medication SIG (Take, Route, Frequency, Duration) Notes Start Date End Date Status Pinecraft Carbonate 300 MG 2 capsules Orally every morning; Duration: 30 day(s) 02/22/2017 Not-Taking Probiotic - take 1 capsule Orally daily Not-Taking Nortriptyline HCl 75 MG 1 capsule Orally at bedtime; Duration: 30 day(s) 06/17/2017 Active Norwood MG 4 capsule Orally Once a day Not-Taking SEROquel 25 MG half or 1 tablet Orally every morning and afternoon; Duration: 30 day(s) 06/17/2017 Active Valium 5 MG 1 tablet Orally Once a day as needed; Duration: 30 days 2017 Not-Taking Spironolactone 50 MG 1 tablet Orally Once a day Not-Taking Ambien 10 MG 1 tablet Orally at bedtime as needed; Duration: 30 days 02/22/2017 Not-Taking Fleet Enema 7-19 GM/118ML Rectal Not-Taking fluPHENAZine HCl 10 MG one tablet Orally twice a day; Duration: 30 days Active Paliperidone ER 6 MG 2 tablets Orally at night; Duration: 30 days Not-Taking Pinecraft Carbonate 600 MG 1 capsule Orally twice a day; Duration: 30 day(s) 02/22/2017 Not-Taking Benztropine Mesylate 1 MG 1 tablet Orally once daily; Duration: 30 days Not-Taking Ibuprofen 200 MG 4tablet as needed Orally every 6 hrs Not-Taking SEROquel 50 MG 1 tablet Orally at bedtime; Duration: 30 days Active fluPHENAZine HCl 1 MG 1 1/2 tablet Orall y Once a day at bedtime; Duration: 30 day(s) 05/09/2017 Not-Taking Loperamide HCl 2 MG 1 capsule Orally after each loose stool Active Naproxen 250 MG Takes as needed (over the counter) Active Gabapentin 600 MG 1 capsule Orally Three times a day Active Nicotine Step 1 21 MG/24HR 1 patch to skin Transdermal Once a day Not-Taking Melatonin 3 MG 1-2 tablet at bedtime as needed with food Orally Once a day as needed for insomnia Not-Taking Vitamin D (Ergocalciferol) 45961 UNIT 1 capsule Orally weekly; Duration: 30 days Not-Taking Social History Tobacco Use: Social History Observation Description Date Details (start date - stop date) Current Smoker NA - NA Dont use, Tobacco Use/Smoking Question Answer Notes Are you a current smoker How often do you smoke cigarettes? every day How many cigarettes a day do you smoke? 11-20 How soon after you wake up d o you smoke your first cigarette? within 5 minutes Are you interested in quitting? Not ready to darell t Additional Findings: Tobacco User Modera te cigarette smoker (10-19 cigs/day) Alcohol Screen (Audit-C) Question Answer Notes Did you have a drink contain ing alcohol in the past year? Yes How often did you have a dri nk containing alcohol in the past year? 4 or more times a week (4 points) How many drinks did you have on a typical day when you were drinking in the past year? 10 or more drinks (4 points) How often did you have 6 or more drinks on one occasion in the past year? 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) Active confirmed Problem Alcohol use disorder (1351025120) Alcohol use disorder (F10.99) Active confirmed Problem Depressive disorder (disorder) (83400417) Depression, unspecified depression type (F32.9) Active confirmed Problem Recurrent major depression (87424464) MDD (major depressive disorder), recurrent episode, with atypical features (F33.9) Active confirmed Problem Severe recurrent major depression with psychotic features (29605036) Severe episode of recurrent major depressive disorder, with psychotic features (F33.3) Active confirmed Plan Of Treatment No Information Insurance Providers Payer Name Payer Address Payer Phone Subscriber Number Group Number Insured Name Patient Relationship to Insured Coverage Start Date Coverage End Date MEDICARE PART A [address] [place] [address] [id number] Mirian Bueno Self - patient is the insured 7 MEDICAID [address] [facility] [place] [address] [id number] Mirian Bueno Self - patient is the insured 6 Medications Administered Medication Instructions Date of Administration Dosage Notes Vivitrol 01/14/2017 380 mg Tolerated well . Medical (General) History Medical History History ICD Code Endometrosis Factor 5 MTHFR Surgical History Surgery Date(Month/Year) Cholecystectomy 2009 Laparotomy 2009
--- OUTSIDE RECORDS SUMMARY | 2025-08-03 16:58 | XMS_ITS | Encounter Summary ---
Author Organization [facility] Address [facility] [place] [address] Care Team Providers Care Manager Review Name Role Phone Dasha Conway Erlin [facility] Primary Care Provider +1- [phone] Encounter Details Date Type Department Care Team (Late st Contact Info) Description 05/12/2021 Abinehart Message Enc [facility] Medical Group Multispecialty Care - [place] [address] [address] [place], [place] [phone] [place] [address] [place] [address] [address] [place] [address] RE: Question Social History Tobacco Use Types [...] Sex Assigned at Female 01/08/2021 9:43 AM AGILE TESTER Legal Sex Female 5:13 PM CDT Gender Identity Female 01/08/2021 9:43 AM AGILE TESTER Sexual Orientation Straight 01/08/2021 9: 43 AM AGILE TESTER COVID-19 Exposure Response Date Recorded In [...] Rule Out 10/23/2021 10/23/2021 10/23/2021 9:25 AM AGILE TESTER COVID-19 Rule Out 10/23/2021 10/23/2021 10/24/2021 12:21 AM AGILE TESTER COVID-19 Rule Out 01/15/2022 01/15/2022 01/20/2022 10:53 AM AGILE TESTER COVID-19 Rule Out 04/21/2022 04/21/2022 04/21/2022 11:42 AM CDT COVID-19 Rule Out 04/21/2022 04/21/2022 04/26/2022 7:02 AM CDT COVID-19 Rule Out 10/06/2022 10/06/2022 10/06/2022 1:21 PM AGILE TESTER COVID-19 Rule Out 10/06/2022 10/06/2022 10/07/2022 3:34 PM AGILE TESTER COVID-19 Rule Out 09/14/2023 09/14/2023 09/14/2023 3:48 PM CDT COVID-19 Rule Out 11/02/2024 11/02/2024 11/02/2024 4:03 PM AGILE TESTER Assessment Noted Time PHQ-9 Depression Total Score: 021 9:18 AM CDT documented as of this encounter Care Teams Manager Review Relationship Specialty Start Date End Date Dasha Conway, CHRISTINE-STEPH [address] [place] [address] PCP - General 11/02/24 documented as of this encounter
--- OUTSIDE RECORDS SUMMARY | 2025-08-03 16:58 | XMS_ITS | Encounter Summary ---
Author Organization [facility] Address [facility] [place] [address] Care Team Providers Care Wire Coater Name Role Phone Dasha Conway [facility] Primary Care Provider +1- [phone] Encounter Details Date Type Department Care Team (Late st Contact Info) Description 08/11/2021 Bioscalehart Message Enc [facility] Medical Group Multispecialty Care - [place] [address] [address] [place], [place] [phone] Curtis iDaz MD [address] [place] [address] [address] [place] [address] RE: fax number Social History Tobacco Use [...] Sex Assigned at Female 01/08/2021 9:43 AM BRIMMING MACHINE OPERATOR Legal Sex Female 5:13 PM CDT Gender Identity Female 01/08/2021 9:43 AM BRIMMING MACHINE OPERATOR Sexual Orientation Straight 01/08/2021 9: 43 AM BRIMMING MACHINE OPERATOR COVID-19 Exposure Response Date Recorded [...] Rule Out 10/23/2021 10/23/2021 10/23/2021 9:25 AM BRIMMING MACHINE OPERATOR COVID-19 Rule Out 10/23/2021 10/23/2021 10/24/2021 12:21 AM BRIMMING MACHINE OPERATOR COVID-19 Rule Out 01/15/2022 01/15/2022 01/20/2022 10:53 AM BRIMMING MACHINE OPERATOR COVID-19 Rule Out 04/21/2022 04/21/2022 04/21/2022 11:42 AM CDT COVID-19 Rule Out 04/21/2022 04/21/2022 04/26/2022 7:02 AM CDT COVID-19 Rule Out 10/06/2022 10/06/2022 10/06/2022 1:21 PM BRIMMING MACHINE OPERATOR COVID-19 Rule Out 10/06/2022 10/06/2022 10/07/2022 3:34 PM BRIMMING MACHINE OPERATOR COVID-19 Rule Out 09/14/2023 09/14/2023 09/14/2023 3:48 PM CDT COVID-19 Rule Out 11/02/2024 11/02/2024 11/02/2024 4:03 PM BRIMMING MACHINE OPERATOR Assessment Noted Time PHQ-9 Depression Total Score: 021 9:18 AM CDT documented as of this encounter Care Teams Wire Coater Relationship Specialty Start Date End Date Dasha Conway, RN TRAVEL-STEPH [address] [place] [address] PCP - General 11/02/24 documented as of this encounter
--- OUTSIDE RECORDS SUMMARY | 2025-08-03 16:58 | XMS_ITS | Encounter Summary ---
Author Organization [facility] Address [facility] [place] [address] Care Team Providers Care Resin Remover Name Role Phone Dasha Conway Erlin [facility] Primary Care Provider +1- [phone] Encounter Details Date Type Department Care Team (Latest Contact Info) Description 05/07/2021 CorMatrix Message Enc [facility] Medical Group Multispecialty Care - [address] [place], [place] [phone] Chip, [facility] Provider surgical clearance Social History [...] Assigned at Female 01/08/2021 9:43 AM MANAGER SIGN Legal Sex Female 5:13 PM CDT Gender Identity Female 01/08/2021 9:43 AM MANAGER SIGN Sexual Orientation Straight 01/08/2021 9: 43 AM MANAGER SIGN COVID-19 Exposure Response Date Recorded In the [...] Out 10/23/2021 10/23/2021 10/23/2021 9:25 AM MANAGER SIGN COVID-19 Rule Out 10/23/2021 10/23/2021 10/24/2021 12:21 AM MANAGER SIGN COVID-19 Rule Out 01/15/2022 01/15/2022 01/20/2022 10:53 AM MANAGER SIGN COVID-19 Rule Out 04/21/2022 04/21/2022 04/21/2022 11:42 AM CDT COVID-19 Rule Out 04/21/2022 04/21/2022 04/26/2022 7:02 AM CDT COVID-19 Rule Out 10/06/2022 10/06/2022 10/06/2022 1:21 PM MANAGER SIGN COVID-19 Rule Out 10/06/2022 10/06/2022 10/07/2022 3:34 PM MANAGER SIGN COVID-19 Rule Out 09/14/2023 09/14/2023 09/14/2023 3:48 PM CDT COVID-19 Rule Out 11/02/2024 11/02/2024 11/02/2024 4:03 PM MANAGER SIGN Assessment Noted Time PHQ-9 Depression Total Score: 22 021 9:18 AM CDT documented as of this encounter Care Teams Resin Remover Relationship Specialty Start Date End Date Dasha Conway, ASSISTANT CORPORATION COUNSEL- [address] [place] [address] PCP - General 11/02/24 documented as of this encounter
--- OUTSIDE RECORDS SUMMARY | 2025-08-03 16:58 | XMS_ITS | Encounter Summary ---
Author Organization [facility] Address [facility] [place] [address] Care Team Providers Care Front Desk Admin Name Role Phone Dasha Conway Erlin [facility] Primary Care Provider +1- [phone] Encounter Details Date Type Department Care Team (Late st Contact Info) Description 10/29/2021 Total-traxhart Message Enc [facility] Medical Group Multispecialty Care - [place] [address] [address] [place], [place] [phone] Curtis Diaz MD [address] [place] [address] 157 [place] [address] Blood sugar Social History Tobacco Use Types [...] Sex Assigned at Female 01/08/2021 9:43 AM BOILER ROOM HELPER Legal Sex Female 5:13 PM CDT Gender Identity Female 01/08/2021 9:43 AM BOILER ROOM HELPER Sexual Orientation Straight 01/08/2021 9: 43 AM BOILER ROOM HELPER COVID-19 Exposure Response Date Recorded In the last month, have you been in contact with someone who was confirmed or suspected to have Coronavirus / COVID-19? No / Unsure 10/22/2021 9:17 AM BOILER ROOM HELPER documented as of this encounter Plan of Treatment Not on file documented as of this encounter Visit Diagnoses Not on filedocumented in this encounter Additional Health Concerns Infection Onset Date Last Indicated Resolved Time 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 06/30/2017 COVID-19 Rule Out 01/15/2022 01/15/2022 01/20/2022 10:53 AM BOILER ROOM HELPER COVID-19 Rule Out 04/21/2022 04/21/2022 04/21/2022 11:42 AM CDT COVID-19 Rule Out 04/21/2022 04/21/2022 04/26/2022 7:02 AM CDT COVID-19 Rule Out 10/06/2022 10/06/2022 10/06/2022 1:21 PM BOILER ROOM HELPER COVID-19 Rule Out 10/06/2022 10/06/2022 10/07/2022 3:34 PM BOILER ROOM HELPER COVID-19 Rule Out 09/14/2023 09/14/2023 09/14/2023 3:48 PM CDT COVID-19 Rule Out 11/02/2024 11/02/2024 11/02/2024 4:03 PM BOILER ROOM HELPER Assessment Noted Time PHQ-9 Depression Total Score: 22 021 9:18 AM CDT documented as of this encounter Care Teams Front Desk Admin Relationship Specialty Start Date End Date Dasha Conway FNP-BC [address] [place] [address] PCP - General 11/02/24 documented as of this encounter
--- OUTSIDE RECORDS SUMMARY | 2025-08-03 16:58 | XMS_ITS | Encounter Summary ---
Author Organization [facility] Address [facility] [place] [address] Care Team Providers Care Senior Ui Web Developer Name Role Phone Dasha Conway Erlin [facility] Primary Care Provider +1- [phone] Encounter Details Date Type Department Care Team (Latest Contact Info) Description 08/14/2021 KustomNotet Message Enc [facility] Medical Group Multispecialty Care - [place] [address] [place] [address] [address] [place] [address] [place] [address] [place] [address] [address] [place], [place] [id number] RE: Medication Questions Social History Tobacco Use [...] Sex Assigned at Female 01/08/2021 9:43 AM RETAIL ROUTE SUPERVISOR Legal Sex Female 5:13 PM CDT Gender Identity Female 01/08/2021 9:43 AM RETAIL ROUTE SUPERVISOR Sexual Orientation Straight 01/08/2021 9: 43 AM RETAIL ROUTE SUPERVISOR COVID-19 Exposure Response Date Recorded In [...] Rule Out 10/23/2021 10/23/2021 10/23/2021 9:25 AM RETAIL ROUTE SUPERVISOR COVID-19 Rule Out 10/23/2021 10/23/2021 10/24/2021 12:21 AM RETAIL ROUTE SUPERVISOR COVID-19 Rule Out 01/15/2022 01/15/2022 01/20/2022 10:53 AM RETAIL ROUTE SUPERVISOR COVID-19 Rule Out 04/21/2022 04/21/2022 04/21/2022 11:42 AM CDT COVID-19 Rule Out 04/21/2022 04/21/2022 04/26/2022 7:02 AM CDT COVID-19 Rule Out 10/06/2022 10/06/2022 10/06/2022 1:21 PM RETAIL ROUTE SUPERVISOR COVID-19 Rule Out 10/06/2022 10/06/2022 10/07/2022 3:34 PM RETAIL ROUTE SUPERVISOR COVID-19 Rule Out 09/14/2023 09/14/2023 09/14/2023 3:48 PM CDT COVID-19 Rule Out 11/02/2024 11/02/2024 11/02/2024 4:03 PM RETAIL ROUTE SUPERVISOR Assessment Noted Time PHQ-9 Depression Total Score: 22 021 9:18 AM CDT documented as of this encounter Care Teams Senior Ui Web Developer Relationship Specialty Start Date End Date Dasha Conway FNP-STEPH [address] [place] [id number] PCP - General 11/02/24 documented as of this encounter
--- OUTSIDE RECORDS SUMMARY | 2025-08-03 16:59 | XMS_ITS | Encounter Summary ---
Author Organization [facility] Address [facility]6 [place] [address] Care Team Providers Care Entertainment Centre Manager Name Role Phone Dasha Conway Erlin [facility] Primary Care Provider +1- [phone] Encounter Details Date Type Department Care Team (Latest Contact Info) Description 06/01/2022 FaceFirst (Airborne Biometrics) Message Enc [facility] Medical Group Multispecialty Care - [place] [address] [place] [address] [address] [place] [address] Curtis Diaz MD [address] [facility] 157 [place], [place] [id number] Medical marijuana card Social History Tobacco Use [...] Assigned at Female 01/08/2021 9:43 AM TANK ERECTOR Legal Sex Female 5:13 PM CDT Gender Identity Female 01/08/2021 9:43 AM TANK ERECTOR Sexual Orientation Straight 01/08/2021 9 :43 AM TANK ERECTOR COVID-19 Exposure Response Date Recorded In the last 10 days, have yo u been in contact with someone who was confirmed or suspected to have Coronavirus/COVID-19? No / Unsure 06/04/2022 9:36 AM CDT documented as of this encounter Functional Status * RETIRED Are you deaf or do you have serious difficulty hearing Answer Date of Assessment Author Status No 01/29/2022 10:15 PM TANK ERECTOR Acti ve * RETIRED Are you blind or do you have serious difficulty seeing, even when wearing glasses? Answer Date of Assessment Author Status No 01/29/2022 10:15 PM TANK ERECTOR Acti ve * Do you have serious [...] Rule Out 10/06/2022 10/06/2022 10/06/2022 1:21 PM TANK ERECTOR COVID-19 Rule Out 10/06/2022 10/06/2022 10/07/2022 3:34 PM TANK ERECTOR COVID-19 Rule Out 09/14/2023 09/14/2023 09/14/2023 3:48 PM CDT COVID-19 Rule Out 11/02/2024 11/02/2024 11/02/2024 4:03 PM TANK ERECTOR Assessment Noted Time PHQ-9 Depression Total Score: 4 05/12/20 22 3:34 PM CDT documented as of this encounter Care Teams Entertainment Centre Manager Relationship Specialty Start Date End Date Dasha Conway FNP-STEPH [address] [place] [id number] PCP - General 11/02/24 documented as of this encounter
--- OUTSIDE RECORDS SUMMARY | 2025-08-03 16:59 | XMS_ITS | Encounter Summary ---
Author Organization [facility] Address [facility] [place] [address] Care Team Providers Care Scientific Investigator Name Role Phone Dasha Conway Erlin [facility] Primary Care Provider +1- [phone] Encounter Details Date Type Department Care Team (Late st Contact Info) Description 01/28/2022 SnappCloudhart Message Enc [facility] Medical Group Multispecialty Care - [place] [address] [address] [place], [place] [phone] [place] [address] [place] [address] 157 [place] [address] New antibiotic Social History Tobacco Use Types [...] Sex Assigned at Female 01/08/2021 9:43 AM BRICK AND BLOCK MASON Legal Sex Female 5:13 PM CDT Gender Identity Female 01/08/2021 9:43 AM BRICK AND BLOCK MASON Sexual Orientation Straight 01/08/2021 9: 43 AM BRICK AND BLOCK MASON COVID-19 Exposure Response Date Recorded In the last 10 days, have yo u been in contact with someone who was confirmed or suspected to have Coronavirus/COVID-19? No / Unsure 01/31/2022 8:53 PM CDT documented as of this encounter Functional Status * Calculated C-SSRS Risk Score (Lifetime/Recent) Answer Date of Assessment Author Status No Risk Indicated 01/29/2022 9:14 AM Audra Mccain RN Active * [place] Suicide Severity Rating Scale (Screener/Recent Self-Report) Question Answer Date of Assessment Author Status 1. Wish to be (Past 1 Month) No 01/29/2022 9:14 AM Gloria Mccain RN Ac tive 2. Non-Specific Active Suicidal Thoughts (Past 1 Month) No 01/29/2022 9:14 AM Gloria Mccain RN Ac tive 6. Suicidal Behavior (Lifetime) No 01/29/2022 9:14 AM Gloria Mccain RN Ac tive documented as of this encounter Mental Status * Question Answer Entry Date Author Status Because of a physical, mental, or emotional condition, do you have serious difficulty concentrating, remembering, or making decisions? No 01/29/2022 10:15 PM Nanette Bagley RN [...] Rule Out 10/06/2022 10/06/2022 10/06/2022 1:21 PM BRICK AND BLOCK MASON COVID-19 Rule Out 10/06/2022 10/06/2022 10/07/2022 3:34 PM BRICK AND BLOCK MASON COVID-19 Rule Out 09/14/2023 09/14/2023 09/14/2023 3:48 PM CDT COVID-19 Rule Out 11/02/2024 11/02/2024 11/02/2024 4:03 PM BRICK AND BLOCK MASON Assessment Noted Time PHQ-9 Depression Total Score: 15 021 11:10 AM BRICK AND BLOCK MASON documented as of this encounter Care Teams Scientific Investigator Relationship Specialty Start Date End Date Dasha Conway, TILE TRIMMER- [address] [place] [id number] PCP - General 11/02/24 documented as of this encounter
--- OUTSIDE RECORDS SUMMARY | 2025-08-03 16:59 | XMS_ITS | Encounter Summary ---
Author Organization [facility] Address [facility]6 [place] [address] Care Team Providers Care Bobbin Drier Name Role Phone Dasha Conway Erlin [facility] Primary Care Provider +1- [phone] Encounter Details Date Type Department Care Team (Latest Contact Info) Description 06/23/2022 DNA SEQ Message Enc [facility] Medical Group Multispecialty Care - [place] [address] [place] [address] [address] [place] [address] Curtis Diaz MD [address] [facility] [address] [place], [place] [id number] Question regarding CT ABD+PEL WWO CON Social [...] Sex Assigned at Female 01/08/2021 9:43 AM CHILD NUTRITION ASSISTANT Legal Sex Female 5:13 PM CDT Gender Identity Female 01/08/2021 9:43 AM CHILD NUTRITION ASSISTANT Sexual Orientation Straight 01/08/2021 9: 43 AM CHILD NUTRITION ASSISTANT COVID-19 Exposure Response Date Recorded In [...] Rule Out 10/06/2022 10/06/2022 10/06/2022 1:21 PM CHILD NUTRITION ASSISTANT COVID-19 Rule Out 10/06/2022 10/06/2022 10/07/2022 3:34 PM CHILD NUTRITION ASSISTANT COVID-19 Rule Out 09/14/2023 09/14/2023 09/14/2023 3:48 PM CDT COVID-19 Rule Out 11/02/2024 11/02/2024 11/02/2024 4:03 PM CHILD NUTRITION ASSISTANT Assessment Noted Time PHQ-9 Depression Total Score: 4 05/12/20 22 3:34 PM CDT documented as of this encounter Care Teams Bobbin Drier Relationship Specialty Start Date End Date Dasha Conway, MEDICAL PSYCHOTHERAPIST- [address] [place] [id number] PCP - General 11/02/24 documented as of this encounter
--- OUTSIDE RECORDS SUMMARY | 2025-08-03 16:59 | XMS_ITS | Encounter Summary ---
Author Organization [facility] Address [facility]6 [place] [address] Care Team Providers Care Procurement Cost Coordinator Name Role Phone Dasha Conway Erlin [facility] Primary Care Provider +1- [phone] Encounter Details Date Type Department Care Team (Late st Contact Info) Description 06/29/2022 General Assemblyhart Message Enc [facility] Medical Group Multispecialty Care - [place] [address] [place] [address] [address] [place], [place] [phone] [place] [address] [place] [address] 157 [place], [place] [phone] Still sick Social History Tobacco Use Types [...] Sex Assigned at Female 01/08/2021 9:43 AM OPERATING SYSTEM PROGRAMMER Legal Sex Female 5:13 PM CDT Gender Identity Female 01/08/2021 9:43 AM OPERATING SYSTEM PROGRAMMER Sexual Orientation Straight 01/08/2021 9: 43 AM OPERATING SYSTEM PROGRAMMER COVID-19 Exposure Response Date Recorded In [...] Rule Out 10/06/2022 10/06/2022 10/06/2022 1:21 PM OPERATING SYSTEM PROGRAMMER COVID-19 Rule Out 10/06/2022 10/06/2022 10/07/2022 3:34 PM OPERATING SYSTEM PROGRAMMER COVID-19 Rule Out 09/14/2023 09/14/2023 09/14/2023 3:48 PM CDT COVID-19 Rule Out 11/02/2024 11/02/2024 11/02/2024 4:03 PM OPERATING SYSTEM PROGRAMMER Assessment Noted Time PHQ-9 Depression Total Score: 4 05/12/20 22 3:34 PM CDT documented as of this encounter Care Teams Procurement Cost Coordinator Relationship Specialty Start Date End Date Dasha Conway, CONTACT LENS ASSISTANT- [address] [place] [address] PCP - General 11/02/24 documented as of this encounter
--- OUTSIDE RECORDS SUMMARY | 2025-08-03 16:59 | XMS_ITS | Encounter Summary ---
Author Organization [facility] Address [facility]6 [place] [address] Care Team Providers Care Lumber Hacker Name Role Phone Dasha Conway Erlin [facility] Primary Care Provider +1- [phone] Encounter Details Date Type Department Care Team (Late st Contact Info) Description 02/07/2022 Proxeonhart Message Enc [facility] Medical Group Multispecialty Care - [place] [address] [address] [place], [place] [phone] Curtis Diaz MD [address] [place] [address] 157 [place] [address] Apology Social History Tobacco Use Types Packs/Day [...] Sex Assigned at Female 01/08/2021 9:43 AM BODY TECHNICIAN Legal Sex Female 5:13 PM CDT Gender Identity Female 01/08/2021 9:43 AM BODY TECHNICIAN Sexual Orientation Straight 01/08/2021 9: 43 AM BODY TECHNICIAN COVID-19 Exposure Response Date Recorded In the last 10 days, have yo u been in contact with someone who was confirmed or suspected to have Coronavirus/COVID-19? No / Unsure 02/10/2022 10:06 AM CDT documented as of this encounter Functional Status * RETIRED Are you deaf or do you have serious difficulty hearing Answer Date of Assessment Author Status No 01/29/2022 10:15 PM BODY TECHNICIAN Acti ve * RETIRED Are you blind or do you have serious difficulty seeing, even when wearing glasses? Answer Date of Assessment Author Status No 01/29/2022 10:15 PM BODY TECHNICIAN Acti ve * Do you have [...] Rule Out 10/06/2022 10/06/2022 10/06/2022 1:21 PM BODY TECHNICIAN COVID-19 Rule Out 10/06/2022 10/06/2022 10/07/2022 3:34 PM BODY TECHNICIAN COVID-19 Rule Out 09/14/2023 09/14/2023 09/14/2023 3:48 PM CDT COVID-19 Rule Out 11/02/2024 11/02/2024 11/02/2024 4:03 PM BODY TECHNICIAN Assessment Noted Time PHQ-9 Depression Total Score: 15 021 11:10 AM BODY TECHNICIAN documented as of this encounter Care Teams Lumber Hacker Relationship Specialty Start Date End Date Dasha Conway FNP-BC [address] [place] [id number] PCP - General 11/02/24 documented as of this encounter
--- OUTSIDE RECORDS SUMMARY | 2025-08-03 16:59 | XMS_ITS | Encounter Summary ---
Author Organization [facility] Address [facility]6 [place] [address] Care Team Providers Care Firer Locomotive Name Role Phone Daryl Metzger MD Primary Care Provider Dasha Vicente [facility] Primary Care Provider +1- [phone] Encounter Details Date Type Department Care Team (Late st Contact Info) Description 08/27/2020 Orthocon Message [facility] [address] Harsh Sanchez MD [address] [place] [address] [place] [phone] RE: Question Social History Tobacco Use Types Packs/Day Years Used Date Smoking Tobacco: Every Day Cigarettes Smokeless Tobacco: Never Alcohol Use Standard Drinks/Week Comments Not Currently 0 (1 standard drink = 0.6 oz pur e alcohol) PHQ-2 Answer Date Recorded PHQ-2 Score 3 06/23/2020 Comments No Sex and Gender Information Value Date Recorded Sex Assigned at Female 01/08/2021 9:43 AM PROBATION SUPERVISOR Legal Sex Female 5:13 PM CDT Gender Identity Female 01/08/2021 9:43 AM PROBATION SUPERVISOR Sexual Orientation Straight 01/08/2021 9: 43 AM PROBATION SUPERVISOR COVID-19 Exposure Response Date Recorded In [...] to RS appt for the week of Sep 22 documented in this encounter Plan of Treatment Not on file documented as of this encounter Visit Diagnoses Not on filedocumented in this encounter Additional Health Concerns Infection Onset Date Last Indicated Resolved Time 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 06/30/2017 COVID-19 Rule Out 09/01/2020 09/01/2020 09/02/2020 10:06 PM CDT COVID-19 Rule Out 12/16/2020 12/16/2020 12/17/2020 4:31 PM PROBATION SUPERVISOR COVID-19 Rule Out 06/05/2021 06/05/2021 06/05/2021 12:31 PM CDT COVID-19 Rule Out 10/23/2021 10/23/2021 10/23/2021 9:25 AM PROBATION SUPERVISOR COVID-19 Rule Out 10/23/2021 10/23/2021 10/24/2021 12:21 AM PROBATION SUPERVISOR COVID-19 Rule Out 01/15/2022 01/15/2022 01/20/2022 10:53 AM PROBATION SUPERVISOR COVID-19 Rule Out 04/21/2022 04/21/2022 04/21/2022 11:42 AM CDT COVID-19 Rule Out 04/21/2022 04/21/2022 04/26/2022 7:02 AM CDT COVID-19 Rule Out 10/06/2022 10/06/2022 10/06/2022 1:21 PM PROBATION SUPERVISOR COVID-19 Rule Out 10/06/2022 10/06/2022 10/07/2022 3:34 PM PROBATION SUPERVISOR COVID-19 Rule Out 09/14/2023 09/14/2023 09/14/2023 3:48 PM CDT COVID-19 Rule Out 11/02/2024 11/02/2024 11/02/2024 4:03 PM PROBATION SUPERVISOR Assessment Noted Time PHQ-9 Depression Total Score: 13 020 1:12 PM CDT documented as of this encounter Care Teams Firer Locomotive Relationship Specialty Start Date End Date Daryl Metzger MD PCP - General FAMILY MEDICINE SPORTS MEDICINE 08/20/20 10/09/20 Dasha Conway, CARPENTER HELPER MAINTENANCE- [address] [place] [id number] PCP - General 11/02/24 documented as of this encounter
--- OUTSIDE RECORDS SUMMARY | 2025-08-03 16:59 | XMS_ITS | Clinical Summary ---
Author Organization [facility] [address] Address [address] [place] [address] Care Team Providers Care Platen Drier Operator Name Role Phone Donovan Parks MD Unavailable Dasha Conway NP Primary Care Provider [phone] Allergies Active Allergy Reactions Criticality Noted Date [...] (1 mg total) by mouth 11/02/2024 Active omeprazole (PriLOSEC) 40 mg capsule Take 1 capsule (40 mg total) by mouth daily Active methylphenidate HCl (RITALIN) 10 mg tablet Take 1 tablet (10 mg total) by mouth 2 (two) times a day As needed for fatigue 60 tablet 02/13/2025 Active chlorhexidine (PERIDEX) 0.12 % oral rinse Swish 15ml around mouth/throat twice daily and spit out. 473 mL 05/01/2025 Active Active Problems Problem Noted Date Diagnosed Date Annual physical exam 02/21/2025 Assessment & Plan (02/21/2025 3:13 PM CDT): -Recommended: Healthy diet. Avoiding junk food/fast food. -30 minutes of exercise most days of the week. Increase to 45 minutes for weight loss. Health Maintenance reviewed - up-to-date, due for dilated eye exam. -Influenza vaccine every year Recommend: - Topic Date Due Varicella Vaccines (1 of 2 - 13+ 2-dose series) Never done DTaP/Tdap/Td Vaccine (2 - Td or Tdap) 03/13/2025 -F/u in 1 year for Annual PE or sooner if needed Bilateral carpal tunnel syndrome 02/21/2025 Excessive sleepiness 02/13/2025 Mixed hyperlipidemia 01/04/2025 Other chest pain 11/06/2024 Assessment & Plan (11/06/2024 3:13 PM FLAT FINISHER): Myocardial ischemia ruled out. Differential also includes costochondritis. She is going to try the Decadron that was prescribed from the 1st emergency room visit. She also was given a short-term supply of lorazepam that I told her she could try as needed at bedtime. I asked her to keep me updated next week on how she is feeling Anxiety 10/10/2024 Assessment & Plan (02/21/2025 3:11 PM CDT): We discussed at her last office visit and again to date that I believe that her anxiety is causing some of her physical symptoms. She complains of nonspecific fatigue, pain, palpitations, joint pains, vision changes, chest pain, She has had multiple ECT treatments in the distant past. She states that when she had her breast implants removed that she felt much better and no longer needed mood stabilizers. She had also tried multiple medications in the past and did not do well with them. I am still concerned for somatic symptoms, however we have done multiple workup including an MRI of her brain multiple lab workups and I have her seeing Neurology, Cardiology and I have sent a referral to sleep Medicine. We continue our due diligence to rule out etiology for her multiple symptoms Assessment & Plan (10/10/2024 9:05 PM FLAT FINISHER): States that she has tried multiple medications in the past and she doesn't like any of them. Doesn't do well with them. Does not wish to try further treatment. Fatigue 10/10/2024 Assessment & Plan (02/21/2025 3:13 PM CDT): We did discuss that she can not take marijuana even if she has a medical marijuana card which patient stated she had 4 fibromyalgia today, and take lorazepam which she states she took last week prior to the urine drug screen, and complain of fatigue as I explained that marijuana and lorazepam can cause fatigue and taking them together will cause increased drowsiness. Assessment & Plan (10/10/2024 9:06 PM FLAT FINISHER): Concern for M.S. will get updated MRI brain with contrast. Refer to neurology for her discuss. Vision changes 10/10/2024 Tinnitus of both ears 08/27/2024 Type 2 diabetes mellitus wit hout complication, without long-term current use of insulin 08/23/2024 Assessment & Plan (02/21/2025 3:02 PM CDT): Stable. Not currently on medication. A1c has been 6.1% . Will continue to monitor Follow up in 6 months with repeat lab Assessment & Plan (10/10/2024 9:03 PM FLAT FINISHER): Stable. Not currently on medication. A1c has been 6.1% . Will continue to monitor Assessment & Plan (08/27/2024 7:48 AM CDT): Well controlled without medication. A1c 6%. Recent labs done at [facility]. MTHFR mutation 01/28/2020 Pericardial effusion 10/04/2019 Overview (10/04/2019): Echo (08/12/18): moderate pericardial effusion with no evidence of tamponade. EF 60-70% Echo (08/22/18) trivial (barely visible) pericardial effusion, EF 50-55% Assessment & Plan (11/06/2024 3:07 PM FLAT FINISHER): Small pericardial effusion seen on echo done at [facility], which appears to be an improvement [...] with Dulera per puljemal Assessment & Plan (02/21/2025 3:02 PM CDT): Has been diagnosed with fibromyalgia in the past. Assessment & Plan (11/06/2024 3:09 PM FLAT FINISHER): Has been told she has has fibromyalgia in the past. Differential includes a fibromyalgia flare. She had received an Rx for Decadron from the ER at [facility], I encouraged her to go pick that up from the pharmacy and try that this week Assessment & Plan (12/14/2021 11:42 AM FLAT FINISHER): We had started LDN in 03/2020 however [...] to her PCP. Will give referral to [facility] PT pain program in [place], [place]. Assessment & Plan (11/30/2021 3:33 PM FLAT FINISHER): Last seen in 03/2020 after being lost [...] benefit and potential interaction with Dulera per business and financial counsel. Started LDN 4.5mg daily on 04/12/2020. Denies side effects but also denies any benefit at this time. Still complaining of severe generalized pain, fatigue, and insomnia. States dilaudid BID helps her hand pain. Recommend she follow up with pcp as they were originally prescribing this. Will also give referral to [facility]. Continue LDN 4.5mg daily and give this more time tot take effect. Avoid Cymbalta and amitriptyline as patient reports suicidal ideation with antidepressants in the past. Failed gabapentin and had side effects to Lyrica. Follow up in 4-6 weeks. Sooner if needed. Discussed with Dr. Soler. Assessment & Plan (01/08/2020 3:02 PM FLAT FINISHER): Tolerating flexeril 10mg BID and reports some [...] Soler. Assessment & Plan (12/26/2019 10:32 AM FLAT FINISHER): Tolerating tizanidine 4mg TID and notes some [...] office. Assessment & Plan (11/28/2019 12:40 PM FLAT FINISHER): Tolerating tizanidine 2mg BID and feels it [...] needed. Assessment & Plan (10/16/2019 4:20 PM FLAT FINISHER): US right hand/wrist (10/09/19):Mild effusions and power doppler on examination which will have to be correlated clinically. Grade 1 power doppler in the wrist and radial/scaphoid joint. Grade 1 effusion in the 3rd PIP joint. An enlarged median nerve is identified. Serologies revealed an elevated WBC (15.1), however other serological testing was unremarkable. Radiographs from previous hydrostatic tubing tester revealed mild degenerative changes in the lumbar [...] Soler. Assessment & Plan (10/02/2019 4:02 PM FLAT FINISHER): Patient presents with widespread pain in her hands, knees, and feet for the past 3-4 months. Has generalized pruritic, red papules on torso. Reports photosensitivity, pleuritic pains, cough however is a smoker, dry eyes and mouth, and oral ulcers. Currently on prednisone 20mg taper without any improvement of her symptoms. Synovitis with tenderness noted on peripheral joint exam. Soft tissue tenderness noted [id number] back on exam. FHx of 2 sisters with fibromyalgia and mother with psoriatic arthritis. Had x-rays through previous rheum which were scanned into Epic today. Previous serologies were also unremarkable. Symptoms and exam are suspicious for fibromyalgia. Because recent CY was negative per previous hydrostatic tubing tester, it makes the possibility of SLE less likely. Will order appropriate serologies and a right hand/wrist US to further evaluate. Recommend patient see dermatology for rash. Follow up in 2 weeks. Sooner if needed. Seen with Dr. Soler. COPD (chronic obstructive pulmonary disease) Assessment & Plan (02/21/2025 3:00 PM CDT): Patient currently vapes. She states that she has a medical marijuana card and uses in the form of gummies. Transient wheeze heard on today's exam. She does have an albuterol inhaler that she uses 1 to 2 times a week. Will continue albuterol. Encouraged vaping cessation Abnormal thyroid function test 01/03/2018 Assessment & Plan (01/03/2018 4:31 PM FLAT FINISHER): Differential would include euthroid sick syndrome, Subclinical hyperthyroidism Ultrasound Performed normal thyroid ultrasound Will request complete thyroid function tests, including TPO antibodies. It TSH is normal or very mildly low, would indicate subclinical hyperthyroidism, so there would be no indication for treatment Will monitor , follow up in 6 m Factor V Leiden 08/26/2015 Schizoaffective disorder 04/12/2015 Assessment & Plan (02/21/2025 3:01 PM CDT): Schizoaffective disorder also on patient's problem list prior to may be coming her PCP. I am not sure who originally diagnosed this. She is not on any treatment. We will continue to monitor Asthma 01/17/2015 Assessment & Plan (11/06/2024 3:09 PM FLAT FINISHER): Differential also includes asthma. She has an albuterol inhaler use p.r.n.. Encouraged her to try the Decadron as prescribed from 1st ER Atypical bipolar affective disorder 08/06/2009 Assessment & Plan (02/21/2025 2:59 PM CDT): Bipolar affective disorder has been on patient's problem list. I am unsure who diagnosed her. She is not currently on any medications for depression or anxiety. She states that she has tried a few in the past and they gave her paradoxical side effects including suicidal thoughts. She has had some improvement in energy with the methylphenidate 10 mg once daily. She is going to continue trialing the methylphenidate to see if the side effects of the palpitations improve. Lorazepam was given in the ER. I do not plan on refilling this for her. We discussed at the last office visit and again today that I believe that she needs to be on medication to help control her anxiety. Patient denies that anxiety is the cause of any of her physical symptoms. She believes that she is anxious because of her physical symptoms Resolved Problems Problem Noted Date Diagnosed Date Resolved Date Thrush 08/27/2024 02/21/2025 Oral pharyngeal candidiasis 08/27/2024 02/21/2025 Assessment & Plan (08/27/2024 7:54 AM CDT): She has tried diflucan and itraconazole without improvement. Has had a positive culture with c.glabrata. has tried mouth rinses and clotrimazole troch's. Will refer to ID and ENT. Other chronic pancreatitis 11/16/2023 1 Polyarthralgia 12/26/2019 [...] unchanged. Assessment & Plan (12/14/2021 11:43 AM FLAT FINISHER): Repeat serologies with AVISE revealed only a [...] currently on Xarelto. Will give referral to [facility] PT pain program. Discussed scheduling f/u in 4 months however there is not much in terms of treatment management that we would be able to offer at this point. Patient spoke with Dr. Soler as well. Assessment & Plan (11/30/2021 3:33 PM FLAT FINISHER): Previously reported photosensitivity, pleuritic pains, cough however [...] time. Assessment & Plan (01/08/2020 1:59 PM FLAT FINISHER): Reports photosensitivity, pleuritic pains, cough however is a smoker, dry eyes and mouth, and oral ulcers. Repeat AVISE revealed a low positive RF, however no obvious synovitis noted on exam today and previous US was unremarkable. Symptoms do not respond to steroids. Assessment & Plan (12/26/2019 10:35 AM FLAT FINISHER): Reports photosensitivity, pleuritic pains, cough however is [...] 08/23/2024 Assessment & Plan (12/14/2021 11:09 AM FLAT FINISHER): C/o red, pruritic papules over torso. FHx of mother with psoriatic arthritis. Pictures of rash on back sent via MyChart appear hive-like and do not have any erythema or notable scale. Recommend f/u with a detective captain. Assessment & Plan (11/30/2021 3:31 PM FLAT FINISHER): C/o red, pruritic papules over torso. FHx of mother with psoriatic arthritis. Recommend f/u with dermatology. Assessment & Plan (04/15/2020 10:19 AM CDT): Previous exam noted dry flaky, skin on hands with red demarcation around wrists suspicious for psoriasis. Now patient complaining of scaling rash on scalp. FHx of mother with psoriatic arthritis. Assessment & Plan (01/08/2020 1:58 PM FLAT FINISHER): Previous exam noted dry flaky, skin on hands with red demarcation around wrists suspicious for psoriasis. Now patient complaining of scaling rash on scalp. FHx of mother with psoriatic arthritis. Assessment & Plan (12/26/2019 10:21 AM FLAT FINISHER): Previous exam noted dry flaky, skin on hands with red demarcation around wrists suspicious for psoriasis. Now patient complaining of scaling rash on scalp. FHx of mother with psoriatic arthritis. Assessment & Plan (11/28/2019 12:41 PM FLAT FINISHER): Rash improved once prednisone was stopped. Saw detective captain Dr. Evelyn Gonzales who gave patinet triamcinalone cream, however patient has not started this as her rash is mostly on her face now. Previous exam noted dry, flaky skin on hands with red demarcation around wrists which is suspicious for psoriasis. FHx of mother with psoriatic arthritis. Patient given detective captain Dr. Rose's information at previous visit. Assessment & Plan (10/16/2019 1:57 PM FLAT FINISHER): Rash improved once prednisone was stopped. Saw detective captain Dr. Evelyn Gonzales who gave patinet triamcinalone cream, however patient has not started this as her rash is mostly on her face now. Today notes dry, flaky skin on hands with red demarcation around wrists which is suspicious for psoriasis. FHx of mother with psoriatic arthritis. Patient given detective captain Dr. Rose's information for further evaluation. Assessment & Plan (10/02/2019 4:05 PM FLAT FINISHER): Generalized, erythematous papules noted on anterior/posterior torso, [...] Encounters Date Type Department Care Team Description 06/10/2025 Telephone [facility] Primary Care at [address] [address] Madeleine Jameson MA Unsuccessful Phone Call 1 ([facility]) 06/03/2025 Results Follow-Up [facility] Primary Care at [address] [address] Conway, Dasha A., BOX NAILER US Abdomen Limited 05/29/2025 Telephone [facility] Primary Care at [address] [address] Dasha Conway, BOX NAILER Test Results 05/22/2025 2:29 PM CDT - 05/22/2025 11:59 PM CDT Hospital Encounter [facility] [address] [place] [address] Elevated liver enzymes Discharge Disposition: Discharge to home or self care from Last 3 Months Immunizations Immunization Administration Dates Next Due Influenza, Quadrivalent, Spl it, Preservative Free, Intramuscular 08/06/2022 Influenza, Unspecified 08/23/2024(Deferr ed: Patient Refused),11/21/2023(Deferred: Patient Refused),10/30/2019,08/26/2015, 015 Pneumococcal Conjugate PCV 13 09/14/2022 Pneumococcal Polysaccharide PPV23 10/09/2020 Tdap 03/13/2015 Surgical History Surgery Date Site/Laterality Comments ENDOMETRIAL ABLATION HYSTERECTOMY 05/09/2019 PARTIAL-OVARIES STILL INTACT LAPAROSCOPY X 3 CHOLECYSTECTOMY 2011? BREAST SURGERY 03/21/2023 - 04/20/2023 BREAST AUGMENTATION - has had them removed COSMETIC SURGERY 2001 ABDOMINAL SURGERY 3 times for endometriosis BLADDER SURGERY 2020 Medical History Medical History Date Comments Hyperthyroidism Asthma 1989 Schizoaffective disorder (HCC) IBS (irritable bowel syndrome) Anxiety 1997 Generalized anxiety disorder Factor 5 Leiden mutation, heterozygous MTHFR mutation Fibromyalgia Nephrolithiasis Gestational diabetes mellitus, class A2 01/17/20 15 Other chronic pancreatitis 11/16/2023 Polyarthralgia 12/26/2019 US L hand/wrist (12/02/21): [...] Oral thrush Ear problems Thrush, oral Smoking GERD (gastroesophageal reflux disease) 2010 Family History Medical History Relation Name Comments Arthritis Father vianey Cancer Father vianey Prostate Colon cancer Father vianey Diabetes Father vianey type 2 Cancer Father's Brother 1 Armand Cancer Father's Brother 2 Landon Cancer Father's Sister von Lung Kidney disease Father's Sister von Heart attack Maternal Grandfather car Brain cancer Maternal Grandmother Arthritis Mother Marisabel Hypertension Mother Marisabel Stroke Mother Marisabel Cancer Mother's Sister cristobal and padmini Lung Cancer Paternal Grandfather hipolito Asthma Paternal Grandmother Sonya Allergy (severe) Sister 1 jose Mental illness Sister 1 jose Mental illness Sister 2 heather Breast cancer Neg Hx Ovarian cancer Neg Hx Thyroid cancer Neg Hx Relation Name Status Comments Brother thierry Alive Father vianey Alive Father's Brother 1 Armand Alive Father's Brother 2 Landon Alive Father's Sister von 2 AUNTS Maternal Grandfather car Maternal Grandmother Mother Marisabel Alive Mother's Sister cristobal and padmini 2 AUNTS Paternal Grandfather hipolito Paternal Grandmother Humble Alive Sister 1 jose Alive Sister 2 heather Alive Social History Tobacco Use Types Packs/Day Years Used Date Smoking Tobacco: Former Cigarettes 1 31.7 S tarted: 11/21/1993 Smokeless Tobacco: Never Tobacco Cessation:Counseling Given: Not Answered Alcohol Use Standard Drinks/Week Comments No 0 (1 standard drink = 0.6 oz pur e alcohol) PHQ-2 Answer Date Recorded PHQ-2 Total Score (If total score is 3 or more points, staff should administer the PHQ-9) 0 02/13/2025 Comments No Sex and Gender Information Value Date Recorded Sex Assigned at Not on file Legal Sex Female 3:37 AM FLAT FINISHER Gender Identity Female 10/02/2019 1:12 AM FLAT FINISHER Sexual Orientation Straight 10/02/2019 1: 12 AM FLAT FINISHER 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 Not on file Not on file Obstetrics History Para Term AB IAB SAB Ectopic Multiple Livin g Live Births 6 1 1 Date Outcome GA Total Labor Labor/2nd/3rd Weight Sex Type Anes PTL Jocelyne A1 A5 Name Clin Term Last Filed Vital Signs Vital Sign Reading Time Taken Comments Blood Pressure 137/86 04/08/2025 1:15 PM CDT Pulse 58 04/08/2025 1:15 PM CDT Temperature 36.8 C (98.3 F) 02/21/2025 1:48 PM CDT Respiratory Rate 13 04/08/2025 1:15 PM CDT Oxygen Saturation 98% 02/21/2025 1:48 PM CDT Inhaled Oxygen Concentration - - Weight 68 kg (150 lb) 03/01/2025 2:39 PM CDT Height 160 cm (5' 3) 03/01/2025 2:39 PM CDT Body Mass Index 26.57 03/01/2025 2:39 PM CDT Plan of Treatment Health Maintenance Due Date Last Done Comments Colon Cancer Screening-Colonoscopy 1980 Dilated Eye Exam 1980 Foot Exam 1980 Varicella Vaccines (1 of 2 - 13+ 2-dose series) 1993 Hepatitis B Screening 1998 HPV Vaccines (1 - 3-dose SCD M series) 2007 DTaP/Tdap/Td Vaccine (2 - Td or Tdap) 03/13/2025 03/13/2015 Hemoglobin A1C 04/11/2025 10/12/2024, 07/22, 06/29/2017 Influenza Vaccine (#1) 2025 2, 10/30/2019, 08/26/2015, Additional history exists Albumin Creatinine Ratio, Urine 08/23/2025 4 eGFR 08/23/2025 08/23/2024, 07/22, 01/31/2022, Additional history exists Lipid Panel 10/12/2025 10/12/2024, 07/22, 11/16/2023, Additional history exists Breast Cancer Screening-Mammogram 01/01/2026 025, 05/07/2020 Depression Screening 02/13/2026 02/13/2025, 10/10/2024, 08/23/2024, Additional history exists Regular Well Visit/Exam 18-64 02/21/2026 02/21/2025 Pneumococcal vaccine <65 (3 of 3 - PCV20 or PCV21) 2030 09/14/2022, 10/09/2020 Hepatitis C Screening Completed 10/02/2019 Procedures Procedure Name Priority Date/Time Associated Diagnosis Comments US ABDOMEN LIMITED Schedule Routine, Read Routine (OP Routine) 05/22/2025 3:13 PM CDT Elevated liver enzymes DIAGNOSTIC MAMMOGRAM BILATERAL W MARQUIS Schedule Routine, Read Routine (OP Routine) 01/01/2025 1:13 PM FLAT FINISHER Breast pain HEMOGLOBIN A1C Routine 10/12/2024 3:00 PM FLAT FINISHER Type 2 diabetes mellitus without complication, without long-term current use of insulin (HCC) LIPID PANEL Routine 10/12/2024 3:00 PM FLAT FINISHER Type 2 diabetes mellitus without complication, without long-term current use of insulin (HCC) EGFR Routine 08/23/2024 3:03 PM CDT Type 2 diabetes mellitus without complication, without long-term current use of insulin (HCC) ALBUMIN CREATININE RATIO, URINE Routine 08/23/2024 3:03 PM CDT Type 2 diabetes mellitus without complication, without long-term current use of insulin (HCC) HEPATITIS PANEL, ACUTE Routine 10/02/2019 3:33 PM FLAT FINISHER from Last 3 Months or Most Recently Relevant to Health Maintenance Results * US Abdomen Limited (05/22/2025 3:13 PM CDT) Anatomical Region Laterality Modality Abdomen N/A Ultrasound 05/31/2025 11:1 9 AM CDT Narrative 05/31/2025 11:20 AM CDT EXAM DESCRIPTION: US ABDOMEN LIMITED REASON FOR STUDY: elevated liver enzymes TECHNIQUE: Ultrasound of the right upper quadrant of the abdomen was performed with grayscale and color doppler interrogation. COMPARISON: None FINDINGS: LIVER: Diffusely increased echogenicity. The liver measures 16.6 cm length. The main portal vein is patent with hepatopetal flow. GALLBLADDER: Absent. BILIARY: The common duct measures 4.9 mm diameter. PANCREAS: Visualized portions of the pancreas are within normal limits. Portions of the pancreatic body and tail are obscured due to bowel gas. RIGHT KIDNEY: No hydronephrosis. OTHER: No other significant findings. IMPRESSION: 1. Diffuse hepatic steatosis. 2. Previous cholecystectomy. THIS IS AN ELECTRONICALLY VERIFIED FINAL REPORT 05/31/2025 11:20 AM - Electronically signed by Elvis Dominguez M.D. JR: Report ID: [id number] Reading Location: [id number] Procedure Note Elvis Dominguez MD - 05/31/2025 EXAM DESCRIPTION: US ABDOMEN LIMITED REASON FOR STUDY: elevated liver enzymes TECHNIQUE: Ultrasound of the right upper quadrant of the abdomen wasperformed with grayscale and color doppler interrogation. COMPARISON: None FINDINGS: LIVER: Diffusely increased echogenicity. The liver measures 16.6 cmlength. The main portal vein is patent with hepatopetal flow. GALLBLADDER: Absent. BILIARY: The common duct measures 4.9 mm diameter. PANCREAS: Visualized portions of the pancreas are within normal limits. Portions of the pancreatic body and tail are obscured due to bowel gas. RIGHT KIDNEY: No hydronephrosis. OTHER: No other significant findings. IMPRESSION: 1. Diffuse hepatic steatosis. 2. Previous cholecystectomy. THIS IS AN ELECTRONICALLY VERIFIED FINAL REPORT 05/31/2025 11:20 AM - Electronically signed by Elvis Dominguez M.D. JR: Report ID: [id number] Reading Location: [id number] us Dasha Conway BOX NAILER IMG US PROCEDURES Final Resul t * Diagnostic Mammogram Bilateral W [place] (01/01/2025 1:13 PM FLAT FINISHER) Anatomical Region Laterality Modality Breast Bilateral Mammography 01/01/2025 1:27 PM FLAT FINISHER Impressions 01/01/2025 1:27 PM FLAT FINISHER No evidence of malignancy. Follow-up in 1 year with screening mammography is recommended. BI-RADS: 1 - Negative. The patient has been or will be contacted. The patient will be entered into a reminder system with a target due date of 1 year for her next mammogram. Electronically signed by: Ifrah Serrano M.D. Narrative 01/01/2025 1:27 PM FLAT FINISHER EXAMINATION: DIAGNOSTIC MAMMOGRAM BILATERAL W MARQUIS ORDERING [...] * (ABNORMAL) Hemoglobin A1c (10/12/2024 3:00 PM FLAT FINISHER) Hgb A1C 6.1(H) 4.0 - 5.6 % Estimated Average Glucose 128 mg/dL JOAN CORONEL Comment: The ADA recommends reporting an estimated Average Glucose (eAG) with all Hemoglobin A1c results using the equation derived from a study of 507 normal and diabetic adults. Minority populations were underrepresented and children were not included. (Diabetes Care 31:2700-6886, 2008). The eAG is not equivalent to a fasting glucose. Blood 10/12/2024 3:00 PM FLAT FINISHER 10/12/2024 8:24 PM FLAT FINISHER Dasha Conway NP LAB BLOOD ORDERABLES Final Re sult JOAN CORONEL [id number] [place] [address] * (ABNORMAL) Lipid panel (10/12/2024 3:00 PM FLAT FINISHER) Cholesterol 207(H) 30 - 199 mg/dL Comment: [...] NCEP Expert Panel. Circulation 2004;110:227 3. Felton Larry et al. LINN Cardiol. 2019March 21;5(5):540-548. doi: [...] revised on 2018. Chol/HDL ratio 6 JOAN CORONEL Blood 10/12/2024 3:00 PM FLAT FINISHER 10/12/2024 8:24 PM FLAT FINISHER us Dasha Conway NP LAB BLOOD ORDERABLES Final Re sult JOAN CORONEL [address] [address] [place] [address] * eGFR (08/23/2024 3:03 PM CDT) eGFR [...] ORDERABLES Final Re sult Performing Organization Address [facility] de Phone Number JOAN [address] [address] Department [place] [address] * Albumin Creatinine Ratio, Urine (08/23/2024 3:03 [...] ORDERABLES Final Re sult Performing Organization Address [facility] de Phone Number JOAN CORONEL [address] [address] Department [place] [address] * Hepatitis panel, acute (10/02/2019 3:33 PM FLAT FINISHER) Hep A IgM NON-REACT DAVE NON-REACT DAVE [facility] [place] Comment: For additional information, please refer to http://education.[facility]/faq/CIF424 (This link is being provided for informational/ [...] a test for HCV RNA (test code 07815) is suggested. For additional information please refer to http://education.[facility]/faq/OTX83l3 (This link is being provided for informational/ educational purposes only.) 10/02/2019 3:33 PM FLAT FINISHER 10/02/2019 3:35 PM FLAT FINISHER Narrative Resulting Agency Comment Performing Organization Information: Site ID: [id number] Name: Norbert Castellanos Address: [address] [address] Director: Dustin Walter D.O., MPH [facility] - NERAL ORDERABLES Final Result [facility] [place] from Last 3 Months or Most Recently Relevant to Health Maintenance Insurance [facility] MEDICARE ADVANTAGE IDPA [facility] MEDICARE ADVANT[facility] IDPA Member Subscriber Plan / Payer (Ef fective 2019-Present) Name:Divina Raphael Relation to Subscriber:Self Name:Divina Raphael Payer ID:[id number] Group ID:Not on file Type:MEDICAID [place] Address: [place] [id number] [facility] MEDICARE ADVANTAGE [facility] MEDICARE ADVANTAGE IDPA Care Teams Platen Drier Operator Relationship Specialty Start Date End Date Dasha Conway NP [address] [address] PCP - General Family Medicine 05/02/25 Donovan Parks MD Referring Physician Gastroenterology 06/12/21
--- OUTSIDE RECORDS SUMMARY | 2025-08-03 16:59 | XMS_ITS | Encounter Summary ---
Author Organization [facility] Address [facility] [place] [address] Care Team Providers Care Injection Operator Name Role Phone Dasha Conway Erlin [facility] Primary Care Provider +1- [phone] Encounter Details Date Type Department Care Team (Late st Contact Info) Description 05/26/2022 Uvinumt Message Enc [facility] Medical Group Multispecialty Care - [place] [address] [address] [place], [place] [phone] [place] [address] [place] [address] [address] [place] [address] Fluconazole Social History Tobacco Use Types Packs/Day [...] Sex Assigned at Female 01/08/2021 9:43 AM ARTIFICIAL PLASTIC EYE MAKER Legal Sex Female 5:13 PM CDT Gender Identity Female 01/08/2021 9:43 AM ARTIFICIAL PLASTIC EYE MAKER Sexual Orientation Straight 01/08/2021 9: 43 AM ARTIFICIAL PLASTIC EYE MAKER COVID-19 Exposure Response Date Recorded In the last 10 days, have yo michael been in contact with someone who was confirmed or suspected to have Coronavirus/COVID-19? No / Unsure 05/17/2022 8:13 AM CDT documented as of this encounter Functional Status * RETIRED Are you deaf or do you have serious difficulty hearing Answer Date of Assessment Author Status No 01/29/2022 10:15 PM ARTIFICIAL PLASTIC EYE MAKER Acti ve * RETIRED Are you blind or do you have serious difficulty seeing, even when wearing glasses? Answer Date of Assessment Author Status No 01/29/2022 10:15 PM ARTIFICIAL PLASTIC EYE MAKER Acti ve * Do you have serious [...] Rule Out 10/06/2022 10/06/2022 10/06/2022 1:21 PM ARTIFICIAL PLASTIC EYE MAKER COVID-19 Rule Out 10/06/2022 10/06/2022 10/07/2022 3:34 PM ARTIFICIAL PLASTIC EYE MAKER COVID-19 Rule Out 09/14/2023 09/14/2023 09/14/2023 3:48 PM CDT COVID-19 Rule Out 11/02/2024 11/02/2024 11/02/2024 4:03 PM ARTIFICIAL PLASTIC EYE MAKER Assessment Noted Time PHQ-9 Depression Total Score: 4 05/12/20 22 3:34 PM CDT documented as of this encounter Care Teams Injection Operator Relationship Specialty Start Date End Date Dasha Conway FNP- [address] [place] [address] PCP - General 11/02/24 documented as of this encounter
--- OUTSIDE RECORDS SUMMARY | 2025-08-03 16:59 | XMS_ITS | Encounter Summary ---
Author Organization [facility] Address [facility] [place] [address] Care Team Providers Care Bag Machine Adjuster Name Role Phone Daryl Metzger MD Primary Care Provider Dasha Vicente [facility] Primary Care Provider +1- [phone] Encounter Details Date Type Department Care Team (Latest Contact Info) Description 09/04/2020 X[facility] Diagn[facility] Message [facility] [address] Harsh Sanchez MD [address] [place] [address] [place] [address] [place] [phone] RE: Follow Up/Update Social History Tobacco Use Types Packs/Day Years Used Date Smoking Tobacco: Every Day Cigarettes Smokeless Tobacco: Never Alcohol Use Standard Drinks/Week Comments Not Currently 0 (1 standard drink = 0.6 oz pur e alcohol) PHQ-2 Answer Date Recorded PHQ-2 Score 3 06/23/2020 Comments No Sex and Gender Information Value Date Recorded Sex Assigned at Female 01/08/2021 9:43 AM ELECTRONIC REPAIR TROUBLESHOOTER Legal Sex Female 5:13 PM CDT Gender Identity Female 01/08/2021 9:43 AM ELECTRONIC REPAIR TROUBLESHOOTER Sexual Orientation Straight 01/08/2021 9: 43 AM ELECTRONIC REPAIR TROUBLESHOOTER COVID-19 Exposure Response Date Recorded In the [...] Rule Out 12/16/2020 12/16/2020 12/17/2020 4:31 PM ELECTRONIC REPAIR TROUBLESHOOTER COVID-19 Rule Out 06/05/2021 06/05/2021 06/05/2021 12:31 PM CDT COVID-19 Rule Out 10/23/2021 10/23/2021 10/23/2021 9:25 AM ELECTRONIC REPAIR TROUBLESHOOTER COVID-19 Rule Out 10/23/2021 10/23/2021 10/24/2021 12:21 AM ELECTRONIC REPAIR TROUBLESHOOTER COVID-19 Rule Out 01/15/2022 01/15/2022 01/20/2022 10:53 AM ELECTRONIC REPAIR TROUBLESHOOTER COVID-19 Rule Out 04/21/2022 04/21/2022 04/21/2022 11:42 AM CDT COVID-19 Rule Out 04/21/2022 04/21/2022 04/26/2022 7:02 AM CDT COVID-19 Rule Out 10/06/2022 10/06/2022 10/06/2022 1:21 PM ELECTRONIC REPAIR TROUBLESHOOTER COVID-19 Rule Out 10/06/2022 10/06/2022 10/07/2022 3:34 PM ELECTRONIC REPAIR TROUBLESHOOTER COVID-19 Rule Out 09/14/2023 09/14/2023 09/14/2023 3:48 PM CDT COVID-19 Rule Out 11/02/2024 11/02/2024 11/02/2024 4:03 PM ELECTRONIC REPAIR TROUBLESHOOTER Assessment Noted Time PHQ-9 Depression Total Score: 13 020 1:12 PM CDT documented as of this encounter Care Teams Bag Machine Adjuster Relationship Specialty Start Date End Date Daryl Metzger MD PCP - General FAMILY MEDICINE SPORTS MEDICINE 08/20/20 10/09/20 Dasha Conway, WEB PROGRAMMER- [address] [place] [address] PCP - General 11/02/24 documented as of this encounter
--- OUTSIDE RECORDS SUMMARY | 2025-08-03 16:59 | XMS_ITS | Encounter Summary ---
Author Organization [facility] Address [facility] [place] [address] Care Team Providers Care [employer] Hazmat Tanker Driver Name Role Phone Dasha Conway [facility] Primary Care Provider +1- [phone] Encounter Details Date Type Department Care Team (Late st Contact Info) Description 03/01/2022 avandeohart Message Enc [facility] Medical Group Multispecialty Care - [place] [address] [address] [place], [place] [phone] Curtis Diaz MD [address] [place] [address] 157 [place], [place] [phone] Abdominal mri Social History Tobacco Use Types [...] Sex Assigned at Female 01/08/2021 9:43 AM CLINICAL QUALITY MANAGER Legal Sex Female 5:13 PM CDT Gender Identity Female 01/08/2021 9:43 AM CLINICAL QUALITY MANAGER Sexual Orientation Straight 01/08/2021 9: 43 AM CLINICAL QUALITY MANAGER COVID-19 Exposure Response Date Recorded In the last 10 days, have yo u been in contact with someone who was confirmed or suspected to have Coronavirus/COVID-19? No / Unsure 02/10/2022 10:06 AM CDT documented as of this encounter Functional Status * RETIRED Are you deaf or do you have serious difficulty hearing Answer Date of Assessment Author Status No 01/29/2022 10:15 PM CLINICAL QUALITY MANAGER Acti ve * RETIRED Are you blind or do you have serious difficulty seeing, even when wearing glasses? Answer Date of Assessment Author Status No 01/29/2022 10:15 PM CLINICAL QUALITY MANAGER Acti ve * Do you have [...] Rule Out 10/06/2022 10/06/2022 10/06/2022 1:21 PM CLINICAL QUALITY MANAGER COVID-19 Rule Out 10/06/2022 10/06/2022 10/07/2022 3:34 PM CLINICAL QUALITY MANAGER COVID-19 Rule Out 09/14/2023 09/14/2023 09/14/2023 3:48 PM CDT COVID-19 Rule Out 11/02/2024 11/02/2024 11/02/2024 4:03 PM CLINICAL QUALITY MANAGER Assessment Noted Time PHQ-9 Depression Total Score: 15 021 11:10 AM CLINICAL QUALITY MANAGER documented as of this encounter Care Teams [employer] Hazmat Tanker Driver Relationship Specialty Start Date End Date Dasha Conway FNP- [address] [place] [address] PCP - General 11/02/24 documented as of this encounter
--- OUTSIDE RECORDS SUMMARY | 2025-08-03 16:59 | XMS_ITS | Encounter Summary ---
Author Organization [facility] Address [facility] [place] [address] Care Team Providers Care Train Brake Operator Name Role Phone Dasha Conway Erlin [facility] Primary Care Provider +1- [phone] Encounter Details Date Type Department Care Team (Late st Contact Info) Description 02/14/2023 MaxPrepst Message Enc [facility] Medical Group Multispecialty Care - [place] [address] [address] [place] [address] [place] [address] [place] [address] 157 [place] [address] A1c Social History Tobacco Use Types Packs/Day [...] Assigned at Female 01/08/2021 9:43 AM SENIOR WEB SERVICES DEVELOPER Legal Sex Female 5:13 PM CDT Gender Identity Female 01/08/2021 9:43 AM SENIOR WEB SERVICES DEVELOPER Sexual Orientation Straight 01/08/2021 9: 43 AM SENIOR WEB SERVICES DEVELOPER COVID-19 Exposure Response Date Recorded In [...] Out 11/02/2024 11/02/2024 11/02/2024 4:03 PM SENIOR WEB SERVICES DEVELOPER Assessment Noted Time PHQ-9 Depression Total Score: 11 12/ 022 12:00 PM SENIOR WEB SERVICES DEVELOPER documented as of this encounter Care Teams Train Brake Operator Relationship Specialty Start Date End Date Dasha Conway, WIRE SPOOLER- [address] [place] [address] PCP - General 11/02/24 documented as of this encounter
--- OUTSIDE RECORDS SUMMARY | 2025-08-03 16:59 | XMS_ITS | Encounter Summary ---
Author Organization [facility] Address [facility]6 [place] [address] Care Team Providers Care Textile Chemist Name Role Phone Daryl Metzger MD Primary Care Provider Bradley Gallegos MD Primary Care Provider [phone] Daryl Metzger MD Primary Care Provider UnavailDasha Banks [facility] Primary Care Provider [phone]- [phone] Encounter Details Date Type Department Care Team (Late st Contact Info) Description 08/07/[address] [facility] Medical Group Family Medicine - [place] [address] [place] [address] Daryl Metzger MD RE: Follow Up/Update Social [...] Sex Assigned at Female 01/08/2021 9:43 AM DENTAL SERVICE TECHNICIAN Legal Sex Female 5:13 PM CDT Gender Identity Female 01/08/2021 9:43 AM DENTAL SERVICE TECHNICIAN Sexual Orientation Straight 01/08/2021 9: 43 AM DENTAL SERVICE TECHNICIAN COVID-19 Exposure Response Date Recorded In [...] Rule Out 12/16/2020 12/16/2020 12/17/2020 4:31 PM DENTAL SERVICE TECHNICIAN COVID-19 Rule Out 06/05/2021 06/05/2021 06/05/2021 12:31 PM CDT COVID-19 Rule Out 10/23/2021 10/23/2021 10/23/2021 9:25 AM DENTAL SERVICE TECHNICIAN COVID-19 Rule Out 10/23/2021 10/23/2021 10/24/2021 12:21 AM DENTAL SERVICE TECHNICIAN COVID-19 Rule Out 01/15/2022 01/15/2022 01/20/2022 10:53 AM DENTAL SERVICE TECHNICIAN COVID-19 Rule Out 04/21/2022 04/21/2022 04/21/2022 11:42 AM CDT COVID-19 Rule Out 04/21/2022 04/21/2022 04/26/2022 7:02 AM CDT COVID-19 Rule Out 10/06/2022 10/06/2022 10/06/2022 1:21 PM DENTAL SERVICE TECHNICIAN COVID-19 Rule Out 10/06/2022 10/06/2022 10/07/2022 3:34 PM DENTAL SERVICE TECHNICIAN COVID-19 Rule Out 09/14/2023 09/14/2023 09/14/2023 3:48 PM CDT COVID-19 Rule Out 11/02/2024 11/02/2024 11/02/2024 4:03 PM DENTAL SERVICE TECHNICIAN Assessment Noted Time PHQ-9 Depression Total Score: 13 020 1:12 PM CDT documented as of this encounter Care Teams Textile Chemist Relationship Specialty Start Date End Date Daryl Metzger MD PCP - General FAMILY MEDICINE SPORTS MEDICINE 06/23/20 08/12/20 Bradley Camrichael MD [address] [place] [address] MEDICAL OFFICE BUILDING [address] [place] [address] PCP - General INTERNAL MEDICINE 08/13/20 08/19/20 Daryl Metzger MD PCP - General FAMILY MEDICINE SPORTS MEDICINE 08/20/20 10/09/20 Dasha Conway FNP- [address] [place] [address] PCP - General 11/02/24 documented as of this encounter
--- OUTSIDE RECORDS SUMMARY | 2025-08-03 16:59 | XMS_ITS | Encounter Summary ---
Author Organization [facility] Address [facility] [place] [address] Care Team Providers Care Orthopaedic Physician Assistant Name Role Phone Dasha Conway Erlin [facility] Primary Care Provider [phone]- [phone] Encounter Details Date Type Department Care Team (Late st Contact Info) Description 10/10/2022 HubNamit Message Enc [facility] Medical Group Multispecialty Care - [place] [address] [place] [address] [address] [place] [address] [place] [address] [place] [address] 157 [place] [address] Yeast infection Social History Tobacco Use Types [...] Sex Assigned at Female 01/08/2021 9:43 AM BARREL ENDSHAKE ADJUSTER Legal Sex Female 5:13 PM CDT Gender Identity Female 01/08/2021 9:43 AM BARREL ENDSHAKE ADJUSTER Sexual Orientation Straight 01/08/2021 9: 43 AM BARREL ENDSHAKE ADJUSTER COVID-19 Exposure Response Date Recorded In the last 10 days, have asif rodriguez been in contact with someone who was confirmed or suspected to have Coronavirus/COVID-19? No / Unsure 10/06/2022 12:33 PM BARREL ENDSHAKE ADJUSTER documented as of this encounter Functional Status [...] Rule Out 11/02/2024 11/02/2024 11/02/2024 4:03 PM BARREL ENDSHAKE ADJUSTER Assessment Noted Time PHQ-9 Depression Total Score: 4 05/12/20 22 3:34 PM CDT documented as of this encounter Care Teams Orthopaedic Physician Assistant Relationship Specialty Start Date End Date Dasha Conway FNP-STEPH [address] [place] [address] PCP - General 11/02/24 documented as of this encounter
--- OUTSIDE RECORDS SUMMARY | 2025-08-03 16:59 | XMS_ITS | Encounter Summary ---
Author Organization [facility] Address [facility] [place] [address] Care Team Providers Care Software Clerk Name Role Phone Dasha Conway [facility] Primary Care Provider [phone]- [phone] Encounter Details Date Type Department Care Team (Latest Contact Info) Description 02/02/2022 Fair and Squaret Message Enc [facility] Medical Group Multispecialty Care - [place] [address] [address] [place] [address] [place] [address] [place] [address] 157 [place], [place] [phone] follow up appointment Social History Tobacco Use [...] Assigned at Female 01/08/2021 9:43 AM MACHINE STEMMER Legal Sex Female 5:13 PM CDT Gender Identity Female 01/08/2021 9:43 AM MACHINE STEMMER Sexual Orientation Straight 01/08/2021 9: 43 AM MACHINE STEMMER COVID-19 Exposure Response Date Recorded In the last 10 days, have yo u been in contact with someone who was confirmed or suspected to have Coronavirus/COVID-19? No / Unsure 02/02/2022 10:59 AM CDT documented as of this encounter Functional Status * RETIRED Are you deaf or do you have serious difficulty hearing Answer Date of Assessment Author Status No 01/29/2022 10:15 PM MACHINE STEMMER Acti ve * RETIRED Are you blind or do you have serious difficulty seeing, even when wearing glasses? Answer Date of Assessment Author Status No 01/29/2022 10:15 PM MACHINE STEMMER Acti ve * Do you have serious [...] Out 10/06/2022 10/06/2022 10/06/2022 1:21 PM MACHINE STEMMER COVID-19 Rule Out 10/06/2022 10/06/2022 10/07/2022 3:34 PM MACHINE STEMMER COVID-19 Rule Out 09/14/2023 09/14/2023 09/14/2023 3:48 PM CDT COVID-19 Rule Out 11/02/2024 11/02/2024 11/02/2024 4:03 PM MACHINE STEMMER Assessment Noted Time PHQ-9 Depression Total Score: 15 021 11:10 AM MACHINE STEMMER documented as of this encounter Care Teams Software Clerk Relationship Specialty Start Date End Date Dasha Conway FNP- [address] [place] [address] PCP - General 11/02/24 documented as of this encounter
--- OUTSIDE RECORDS SUMMARY | 2025-08-03 16:59 | XMS_ITS | Encounter Summary ---
Author Organization [facility] Address [facility] [place] [address] Care Team Providers Care Baggagemaster Name Role Phone Daryl Metzger MD Primary Care Provider Dasha Vicente [facility] Primary Care Provider +1- [phone] Encounter Details Date Type Department Care Team (Late st Contact Info) Description 08/20/2020 [employer]t Message Enc [facility] Medical Group Family Medicine [facility] [address] [address] Daryl Metzger MD RE: Question Social History [...] Out 12/16/2020 12/16/2020 12/17/2020 4:31 PM MANAGER COPY COVID-19 Rule Out 06/05/2021 06/05/2021 06/05/2021 12:31 PM CDT COVID-19 Rule Out 10/23/2021 10/23/2021 10/23/2021 9:25 AM MANAGER COPY COVID-19 Rule Out 10/23/2021 10/23/2021 10/24/2021 12:21 AM MANAGER COPY COVID-19 Rule Out 01/15/2022 01/15/2022 01/20/2022 10:53 AM MANAGER COPY COVID-19 Rule Out 04/21/2022 04/21/2022 04/21/2022 11:42 AM CDT COVID-19 Rule Out 04/21/2022 04/21/2022 04/26/2022 7:02 AM CDT COVID-19 Rule Out 10/06/2022 10/06/2022 10/06/2022 1:21 PM MANAGER COPY COVID-19 Rule Out 10/06/2022 10/06/2022 10/07/2022 3:34 PM MANAGER COPY COVID-19 Rule Out 09/14/2023 09/14/2023 09/14/2023 3:48 PM CDT COVID-19 Rule Out 11/02/2024 11/02/2024 11/02/2024 4:03 PM MANAGER COPY Assessment Noted Time PHQ-9 Depression Total Score: 020 1:12 PM CDT documented as of this encounter Care Teams Baggagemaster Relationship Specialty Start Date End Date Daryl Metzger MD PCP - General FAMILY MEDICINE SPORTS MEDICINE 08/20/20 10/09/20 Dasha Conway FNP- [address] [place] [address] PCP - General 11/02/24 documented as of this encounter
--- OUTSIDE RECORDS SUMMARY | 2025-08-03 16:59 | XMS_ITS | Encounter Summary ---
Author Organization [facility] Address [facility] [place] [address] Care Team Providers Care Packing Room Worker Name Role Phone Dasha Conway Erlin [facility] Primary Care Provider +1- [phone] Encounter Details Date Type Department Care Team (Late st Contact Info) Description 10/08/2022 Bio[employer]hart Message Enc [facility] Medical Group Multispecialty Care - [place] [address] [address] [place], [place] [phone] [place] [address] [place] [address] 157 [place], [place] [phone] Hands and feet Social History Tobacco Use [...] Sex Assigned at Female 01/08/2021 9:43 AM BANKER MASON Legal Sex Female 5:13 PM CDT Gender Identity Female 01/08/2021 9:43 AM BANKER MASON Sexual Orientation Straight 01/08/2021 9: 43 AM BANKER MASON COVID-19 Exposure Response Date Recorded In the last 10 days, have yo michael been in contact with someone who was confirmed or suspected to have Coronavirus/COVID-19? No / Unsure 10/06/2022 12:33 PM BANKER MASON documented as of this encounter Functional Status [...] Rule Out 11/02/2024 11/02/2024 11/02/2024 4:03 PM BANKER MASON Assessment Noted Time PHQ-9 Depression Total Score: 4 05/12/20 22 3:34 PM CDT documented as of this encounter Care Teams Packing Room Worker Relationship Specialty Start Date End Date Dasha Conway FNP-STEPH [address] [place] [address] PCP - General 11/02/24 documented as of this encounter
--- OUTSIDE RECORDS SUMMARY | 2025-08-03 16:59 | XMS_ITS | Encounter Summary ---
Author Organization [facility] Address [facility] [place] [address] Care Team Providers Care Heater Operator Name Role Phone Dasha Conway [facility] Primary Care Provider +1- [phone] Encounter Details Date Type Department Care Team (Late st Contact Info) Description 11/24/2021 [employer] Message Enc [facility] Medical Group Multispecialty Care - [place] [address] [address] [place], [place] [phone] [place] [address] [place] [address] 157 [place], [place] [phone] PFT and Covid Social History Tobacco Use [...] Sex Assigned at Female 01/08/2021 9:43 AM FIGURE CLERK Legal Sex Female 5:13 PM CDT Gender Identity Female 01/08/2021 9:43 AM FIGURE CLERK Sexual Orientation Straight 01/08/2021 9: 43 AM FIGURE CLERK COVID-19 Exposure Response Date Recorded In the last month, have you been in contact with someone who was confirmed or suspected to have Coronavirus / COVID-19? 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 COVID-19 Rule Out 01/15/2022 01/15/2022 01/20/2022 10:53 AM FIGURE CLERK COVID-19 Rule Out 04/21/2022 04/21/2022 04/21/2022 11:42 AM CDT COVID-19 Rule Out 04/21/2022 04/21/2022 04/26/2022 7:02 AM CDT COVID-19 Rule Out 10/06/2022 10/06/2022 10/06/2022 1:21 PM FIGURE CLERK COVID-19 Rule Out 10/06/2022 10/06/2022 10/07/2022 3:34 PM FIGURE CLERK COVID-19 Rule Out 09/14/2023 09/14/2023 09/14/2023 3:48 PM CDT COVID-19 Rule Out 11/02/2024 11/02/2024 11/02/2024 4:03 PM FIGURE CLERK Assessment Noted Time PHQ-9 Depression Total Score: 15 021 11:10 AM FIGURE CLERK documented as of this encounter Care Teams Heater Operator Relationship Specialty Start Date End Date Dasha Conway FNP-BC [address] [place] [address] PCP - General 11/02/24 documented as of this encounter
--- OUTSIDE RECORDS SUMMARY | 2025-08-03 16:59 | XMS_ITS | Encounter Summary ---
Author Organization [facility] Address [facility] [place] [address] Care Team Providers Care Retail District Manager Name Role Phone Dasha Conway [facility] Primary Care Provider +1- [phone] Encounter Details Date Type Department Care Team (Latest Contact Info) Description 02/11/2022 Househappyt Message Enc [facility] Medical Group Multispecialty Care - [place] [address] [address] [place] [address] [place] [address] [place] [address] 157 [place], [place] [phone] Urine culture results Social History Tobacco Use [...] Sex Assigned at Female 01/08/2021 9:43 AM HEAD OPERATOR SULFIDE Legal Sex Female 5:13 PM CDT Gender Identity Female 01/08/2021 9:43 AM HEAD OPERATOR SULFIDE Sexual Orientation Straight 01/08/2021 9: 43 AM HEAD OPERATOR SULFIDE COVID-19 Exposure Response Date Recorded In the last 10 days, have yo u been in contact with someone who was confirmed or suspected to have Coronavirus/COVID-19? No / Unsure 02/10/2022 10:06 AM CDT documented as of this encounter Functional Status * RETIRED Are you deaf or do you have serious difficulty hearing Answer Date of Assessment Author Status No 01/29/2022 10:15 PM HEAD OPERATOR SULFIDE Acti ve * RETIRED Are you blind or do you have serious difficulty seeing, even when wearing glasses? Answer Date of Assessment Author Status No 01/29/2022 10:15 PM HEAD OPERATOR SULFIDE Acti ve * Do you have serious [...] Rule Out 10/06/2022 10/06/2022 10/06/2022 1:21 PM HEAD OPERATOR SULFIDE COVID-19 Rule Out 10/06/2022 10/06/2022 10/07/2022 3:34 PM HEAD OPERATOR SULFIDE COVID-19 Rule Out 09/14/2023 09/14/2023 09/14/2023 3:48 PM CDT COVID-19 Rule Out 11/02/2024 11/02/2024 11/02/2024 4:03 PM HEAD OPERATOR SULFIDE Assessment Noted Time PHQ-9 Depression Total Score: 15 021 11:10 AM HEAD OPERATOR SULFIDE documented as of this encounter Care Teams Retail District Manager Relationship Specialty Start Date End Date Dasha Conway FNP- [address] [place] [address] PCP - General 11/02/24 documented as of this encounter
--- OUTSIDE RECORDS SUMMARY | 2025-08-03 16:59 | XMS_ITS | Encounter Summary ---
Author Organization [facility] Address Critical access hospital6 [place] [address] Care Team Providers Care Pen Tender Name Role Phone Dasha Conway Erlin [facility] Primary Care Provider +1- [phone] Encounter Details Date Type Department Care Team (Late st Contact Info) Description 06/15/2022 Incuronhart Message Enc [facility] Medical Group Multispecialty Care - [place] [address] [address] [place], [place] [phone] [place] [address] [place] [address] 157 [place] [address] Dmitry Social History Tobacco Use Types Packs/Day Years [...] Sex Assigned at Female 01/08/2021 9:43 AM CCIE Legal Sex Female 5:13 PM CDT Gender Identity Female 01/08/2021 9:43 AM CCIE Sexual Orientation Straight 01/08/2021 9: 43 AM CCIE COVID-19 Exposure Response Date Recorded In the [...] Rule Out 10/06/2022 10/06/2022 10/06/2022 1:21 PM CCIE COVID-19 Rule Out 10/06/2022 10/06/2022 10/07/2022 3:34 PM CCIE COVID-19 Rule Out 09/14/2023 09/14/2023 09/14/2023 3:48 PM CDT COVID-19 Rule Out 11/02/2024 11/02/2024 11/02/2024 4:03 PM CCIE Assessment Noted Time PHQ-9 Depression Total Score: 4 05/12/20 22 3:34 PM CDT documented as of this encounter Care Teams Pen Tender Relationship Specialty Start Date End Date Dasha Conway FNP- [address] [place] [address] PCP - General 11/02/24 documented as of this encounter
--- OUTSIDE RECORDS SUMMARY | 2025-08-03 16:59 | XMS_ITS | Encounter Summary ---
Author Organization [facility] Address [facility]6 [place] [address] Care Team Providers Care Billing Collections Specialist Name Role Phone Daryl Metzger MD Primary Care Provider Bradley Gallegos MD Primary Care Provider [phone] Daryl Metzger MD Primary Care Provider UnavailDasha Banks [facility] Primary Care Provider +1- [phone] Encounter Details Date Type Department Care Team (Late st Contact Info) Description 07/13/[address] [facility] Medical Group Family Medicine [facility] [address] [place] [address] Daryl Metzger MD Question Social History Tobacco Use Types Packs/Day Years Used Date Smoking Tobacco: Every Day Cigarettes Smokeless Tobacco: Never Alcohol Use Standard Drinks/Week Comments Not Currently 0 (1 standard drink = 0.6 oz pur e alcohol) PHQ-2 Answer Date Recorded PHQ-2 Score 3 06/23/2020 Comments No Sex and Gender Information Value Date Recorded Sex Assigned at Female 01/08/2021 9:43 AM FISHER MUSSEL Legal Sex Female 5:13 PM CDT Gender Identity Female 01/08/2021 9:43 AM FISHER MUSSEL Sexual Orientation Straight 01/08/2021 9: 43 AM FISHER MUSSEL COVID-19 Exposure Response Date Recorded In the [...] Rule Out 12/16/2020 12/16/2020 12/17/2020 4:31 PM FISHER MUSSEL COVID-19 Rule Out 06/05/2021 06/05/2021 06/05/2021 12:31 PM CDT COVID-19 Rule Out 10/23/2021 10/23/2021 10/23/2021 9:25 AM FISHER MUSSEL COVID-19 Rule Out 10/23/2021 10/23/2021 10/24/2021 12:21 AM FISHER MUSSEL COVID-19 Rule Out 01/15/2022 01/15/2022 01/20/2022 10:53 AM FISHER MUSSEL COVID-19 Rule Out 04/21/2022 04/21/2022 04/21/2022 11:42 AM CDT COVID-19 Rule Out 04/21/2022 04/21/2022 04/26/2022 7:02 AM CDT COVID-19 Rule Out 10/06/2022 10/06/2022 10/06/2022 1:21 PM FISHER MUSSEL COVID-19 Rule Out 10/06/2022 10/06/2022 10/07/2022 3:34 PM FISHER MUSSEL COVID-19 Rule Out 09/14/2023 09/14/2023 09/14/2023 3:48 PM CDT COVID-19 Rule Out 11/02/2024 11/02/2024 11/02/2024 4:03 PM FISHER MUSSEL Assessment Noted Time PHQ-9 Depression Total Score: 13 020 1:12 PM CDT documented as of this encounter Care Teams Billing Collections Specialist Relationship Specialty Start Date End Date Daryl Metzger MD PCP - General FAMILY MEDICINE SPORTS MEDICINE 06/23/20 08/12/20 Bradley Carmichael MD [address] [place] [address] [address] [address] PCP - General INTERNAL MEDICINE 08/13/20 08/19/20 Daryl Metzger MD PCP - General FAMILY MEDICINE SPORTS MEDICINE 08/20/20 10/09/20 Dasha Conway FNP- [address] [place] [address] PCP - General 11/02/24 documented as of this encounter
--- OUTSIDE RECORDS SUMMARY | 2025-08-03 16:59 | XMS_ITS | Encounter Summary ---
Author Organization [facility] Address [facility] [place] [address] Care Team Providers Care Lathe Setup Operator Name Role Phone Dasha Conway Erlin [facility] Primary Care Provider [phone]- [phone] Encounter Details Date Type Department Care Team (Late st Contact Info) Description 07/27/2022 aitainmentt Message Enc [facility] Medical Group Multispecialty Care - [place] [address] [place] [address] [address] [place] [address] [place] [address] [place] [address] 157 [place] [address] Chantix Social History Tobacco Use Types Packs/Day [...] Assigned at Female 01/08/2021 9:43 AM MACHINE OPERATOR HOP WORKER Legal Sex Female 5:13 PM CDT Gender Identity Female 01/08/2021 9:43 AM MACHINE OPERATOR HOP WORKER Sexual Orientation Straight 01/08/2021 9: 43 AM MACHINE OPERATOR HOP WORKER COVID-19 Exposure Response Date Recorded In [...] Out 10/06/2022 10/06/2022 10/06/2022 1:21 PM MACHINE OPERATOR HOP WORKER COVID-19 Rule Out 10/06/2022 10/06/2022 10/07/2022 3:34 PM MACHINE OPERATOR HOP WORKER COVID-19 Rule Out 09/14/2023 09/14/2023 09/14/2023 3:48 PM CDT COVID-19 Rule Out 11/02/2024 11/02/2024 11/02/2024 4:03 PM MACHINE OPERATOR HOP WORKER Assessment Noted Time PHQ-9 Depression Total Score: 4 05/12/20 22 3:34 PM CDT documented as of this encounter Care Teams Lathe Setup Operator Relationship Specialty Start Date End Date Dasha Conway, WIRE STRIPPING MACHINE OPERATOR- [address] [place] [address] PCP - General 11/02/24 documented as of this encounter
--- OUTSIDE RECORDS SUMMARY | 2025-08-03 16:59 | XMS_ITS | Encounter Summary ---
Author Organization [facility] Address [facility] [place] [address] Care Team Providers Care Cotton Bag Clipper Name Role Phone Dasha Conway Erlin [facility] Primary Care Provider [phone]- [phone] Encounter Details Date Type Department Care Team (Latest Contact Info) Description 01/20/2023 Craftistas Message Enc [facility] Medical Group Multispecialty Care - [place] [address] [place] [address] [address] [place] [address] Curtis Diaz MD [address] [facility] 157 [place], [place] [id number] Vomiting and sugar Social History Tobacco Use [...] Sex Assigned at Female 01/08/2021 9:43 AM BLEACH LIQUOR MAKER Legal Sex Female 5:13 PM CDT Gender Identity Female 01/08/2021 9:43 AM BLEACH LIQUOR MAKER Sexual Orientation Straight 01/08/2021 9: 43 AM BLEACH LIQUOR MAKER COVID-19 Exposure Response Date Recorded In the last 10 days, have yo michael been in contact with someone who was confirmed or suspected to have Coronavirus/COVID-19? No / Unsure 01/11/2023 8:54 AM BLEACH LIQUOR MAKER documented as of this encounter Functional [...] Rule Out 11/02/2024 11/02/2024 11/02/2024 4:03 PM BLEACH LIQUOR MAKER Assessment Noted Time PHQ-9 Depression Total Score: 11 12/2 022 12:00 PM BLEACH LIQUOR MAKER documented as of this encounter Care Teams Cotton Bag Clipper Relationship Specialty Start Date End Date Dasha Conway FNP- [address] [place] [address] PCP - General 11/02/24 documented as of this encounter
--- OUTSIDE RECORDS SUMMARY | 2025-08-03 16:59 | XMS_ITS | Encounter Summary ---
Author Organization [facility] Address [facility]6 [place] [address] Care Team Providers Care Patternmaker Metal Name Role Phone Dasha Conway Erlin [facility] Primary Care Provider +1- [phone] Encounter Details Date Type Department Care Team (Late st Contact Info) Description 06/16/2022 Geelbet Message Enc [facility] Medical Group Multispecialty Care - [place] [address] [address] [place], [place] [address] [place] [address] [place] [address] 157 [place] [address] Diarrhea Social History Tobacco Use Types Packs/Day [...] Assigned at Female 01/08/2021 9:43 AM JAVA ENGINEER Legal Sex Female 5:13 PM CDT Gender Identity Female 01/08/2021 9:43 AM JAVA ENGINEER Sexual Orientation Straight 01/08/2021 9: 43 AM JAVA ENGINEER COVID-19 Exposure Response Date Recorded In [...] Rule Out 10/06/2022 10/06/2022 10/06/2022 1:21 PM JAVA ENGINEER COVID-19 Rule Out 10/06/2022 10/06/2022 10/07/2022 3:34 PM JAVA ENGINEER COVID-19 Rule Out 09/14/2023 09/14/2023 09/14/2023 3:48 PM CDT COVID-19 Rule Out 11/02/2024 11/02/2024 11/02/2024 4:03 PM JAVA ENGINEER Assessment Noted Time PHQ-9 Depression Total Score: 4 05/12/20 22 3:34 PM CDT documented as of this encounter Care Teams Patternmaker Metal Relationship Specialty Start Date End Date Dasha Conway, CRAFT MANAGER- [address] [place] [address] PCP - General 11/02/24 documented as of this encounter
--- OUTSIDE RECORDS SUMMARY | 2025-08-03 16:59 | XMS_ITS | Encounter Summary ---
Author Organization [facility] Address [facility]6 [place] [address] Care Team Providers Care Engravings Polisher Name Role Phone Daryl Metzger MD Primary Care Provider Bradley Gallegos MD Primary Care Provider Daryl Metzger MD Primary Care Provider UnavailDasha Banks [facility] Primary Care Provider [phone]- [phone] Encounter Details Date Type Department Care Team (Late st Contact Info) Description 08/09/2020 [employer]t Message Enc [facility] Medical Group Family Medicine - [place] [address] [place] [address] Daryl Metzger MD RE: Follow Up/Update Social [...] Sex Assigned at Female 01/08/2021 9:43 AM STAFF PHARMACIST Legal Sex Female 5:13 PM CDT Gender Identity Female 01/08/2021 9:43 AM STAFF PHARMACIST Sexual Orientation Straight 01/08/2021 9: 43 AM STAFF PHARMACIST COVID-19 Exposure Response Date Recorded In the [...] Rule Out 12/16/2020 12/16/2020 12/17/2020 4:31 PM STAFF PHARMACIST COVID-19 Rule Out 06/05/2021 06/05/2021 06/05/2021 12:31 PM CDT COVID-19 Rule Out 10/23/2021 10/23/2021 10/23/2021 9:25 AM STAFF PHARMACIST COVID-19 Rule Out 10/23/2021 10/23/2021 10/24/2021 12:21 AM STAFF PHARMACIST COVID-19 Rule Out 01/15/2022 01/15/2022 01/20/2022 10:53 AM STAFF PHARMACIST COVID-19 Rule Out 04/21/2022 04/21/2022 04/21/2022 11:42 AM CDT COVID-19 Rule Out 04/21/2022 04/21/2022 04/26/2022 7:02 AM CDT COVID-19 Rule Out 10/06/2022 10/06/2022 10/06/2022 1:21 PM STAFF PHARMACIST COVID-19 Rule Out 10/06/2022 10/06/2022 10/07/2022 3:34 PM STAFF PHARMACIST COVID-19 Rule Out 09/14/2023 09/14/2023 09/14/2023 3:48 PM CDT COVID-19 Rule Out 11/02/2024 11/02/2024 11/02/2024 4:03 PM STAFF PHARMACIST Assessment Noted Time PHQ-9 Depression Total Score: 13 020 1:12 PM CDT documented as of this encounter Care Teams Engravings Polisher Relationship Specialty Start Date End Date Daryl Metzger MD PCP - General FAMILY MEDICINE SPORTS MEDICINE 06/23/20 08/12/20 Bradley Carmichael MD [address] [place] [address] MEDICAL OFFICE BUILDING [address] [place] [address] PCP - General INTERNAL MEDICINE 08/13/20 08/19/20 Daryl Metzger MD PCP - General FAMILY MEDICINE SPORTS MEDICINE 08/20/20 10/09/20 Dasha Conway, DYE AND CHEMICAL COORDINATOR- [address] [place] [address] PCP - General 11/02/24 documented as of this encounter
--- OUTSIDE RECORDS SUMMARY | 2025-08-03 16:59 | XMS_ITS | Encounter Summary ---
Author Organization [facility] Address [facility]6 [place] [address] Care Team Providers Care Pocket Machine Operator Name Role Phone Dasha Conway Erlin [facility] Primary Care Provider +1- [phone] Encounter Details Date Type Department Care Team (Latest Contact Info) Description 01/13/2023 mobileo Message Enc [facility] Medical Group Multispecialty Care - [place] [address] [place] [address] [address] [place], [place] [phone] Curtis Diaz MD [address] [facility] 157 [place] [address] Fasting sugar 139 Social History Tobacco Use [...] Sex Assigned at Female 01/08/2021 9:43 AM VP SECURITIES Legal Sex Female 5:13 PM CDT Gender Identity Female 01/08/2021 9:43 AM VP SECURITIES Sexual Orientation Straight 01/08/2021 9: 43 AM VP SECURITIES COVID-19 Exposure Response Date Recorded In the last 10 days, have yo michael been in contact with someone who was confirmed or suspected to have Coronavirus/COVID-19? No / Unsure 01/11/2023 8:54 AM VP SECURITIES documented as of this encounter Functional Status [...] Rule Out 11/02/2024 11/02/2024 11/02/2024 4:03 PM VP SECURITIES Assessment Noted Time PHQ-9 Depression Total Score: 11 12/2 022 12:00 PM VP SECURITIES documented as of this encounter Care Teams Pocket Machine Operator Relationship Specialty Start Date End Date Dasha Conway FNP- [address] [place] [address] PCP - General 11/02/24 documented as of this encounter
--- OUTSIDE RECORDS SUMMARY | 2025-08-03 16:59 | XMS_ITS | Encounter Summary ---
Author Organization [facility] Address [facility] [place] [address] Care Team Providers Care Tar Pot Man Name Role Phone Daryl Metzger MD Primary Care Provider Dasha Vicente [facility] Primary Care Provider +1- [phone] Encounter Details Date Type Department Care Team (Late st Contact Info) Description 09/17/2020 Hochy eto Message Enc [facility] Medical Group Multispecialty Care - [facility] [address] [facility], [address] [place] [phone] [employer], [facility] Provider EGD results Social History Tobacco Use Types Packs/Day Years Used Date Smoking Tobacco: Every Day Cigarettes Smokeless Tobacco: Never Alcohol Use Standard Drinks/Week Comments Not Currently 0 (1 standard drink = 0.6 oz pur e alcohol) PHQ-2 Answer Date Recorded PHQ-2 Score 3 06/23/2020 Comments No Sex and Gender Information Value Date Recorded Sex Assigned at Female 01/08/2021 9:43 AM CAGE CASHIER Legal Sex Female 5:13 PM CDT Gender Identity Female 01/08/2021 9:43 AM CAGE CASHIER Sexual Orientation Straight 01/08/2021 9: 43 AM CAGE CASHIER COVID-19 Exposure Response Date Recorded In the [...] Rule Out 12/16/2020 12/16/2020 12/17/2020 4:31 PM CAGE CASHIER COVID-19 Rule Out 06/05/2021 06/05/2021 06/05/2021 12:31 PM CDT COVID-19 Rule Out 10/23/2021 10/23/2021 10/23/2021 9:25 AM CAGE CASHIER COVID-19 Rule Out 10/23/2021 10/23/2021 10/24/2021 12:21 AM CAGE CASHIER COVID-19 Rule Out 01/15/2022 01/15/2022 01/20/2022 10:53 AM CAGE CASHIER COVID-19 Rule Out 04/21/2022 04/21/2022 04/21/2022 11:42 AM CDT COVID-19 Rule Out 04/21/2022 04/21/2022 04/26/2022 7:02 AM CDT COVID-19 Rule Out 10/06/2022 10/06/2022 10/06/2022 1:21 PM CAGE CASHIER COVID-19 Rule Out 10/06/2022 10/06/2022 10/07/2022 3:34 PM CAGE CASHIER COVID-19 Rule Out 09/14/2023 09/14/2023 09/14/2023 3:48 PM CDT COVID-19 Rule Out 11/02/2024 11/02/2024 11/02/2024 4:03 PM CAGE CASHIER Assessment Noted Time PHQ-9 Depression Total Score: 13 020 1:12 PM CDT documented as of this encounter Care Teams Tar Pot Man Relationship Specialty Start Date End Date Daryl Metzger MD PCP - General FAMILY MEDICINE SPORTS MEDICINE 08/20/20 10/09/20 Dasha Conway FNP- [address] [place] [address] PCP - General 11/02/24 documented as of this encounter
--- OUTSIDE RECORDS SUMMARY | 2025-08-03 16:59 | XMS_ITS | Encounter Summary ---
Author Organization [facility] Address [facility]6 [place] [address] Care Team Providers Care Copyright Clerk Name Role Phone Dasha Conway Erlin [facility] Primary Care Provider +1- [phone] Encounter Details Date Type Department Care Team (Latest Contact Info) Description 08/20/2022 MENA PRESTIGE Message Enc [facility] Medical Group Multispecialty Care - [place] [address] [place] [address] [address] [place] [address] Curtis Diaz MD [address] [facility] 157 [place], [place] [phone] Nausea and vomiting Social History Tobacco Use [...] Sex Assigned at Female 01/08/2021 9:43 AM SHIFT LAB TECHNICIAN Legal Sex Female 5:13 PM CDT Gender Identity Female 01/08/2021 9:43 AM SHIFT LAB TECHNICIAN Sexual Orientation Straight 01/08/2021 9: 43 AM SHIFT LAB TECHNICIAN COVID-19 Exposure Response Date Recorded In [...] Rule Out 10/06/2022 10/06/2022 10/06/2022 1:21 PM SHIFT LAB TECHNICIAN COVID-19 Rule Out 10/06/2022 10/06/2022 10/07/2022 3:34 PM SHIFT LAB TECHNICIAN COVID-19 Rule Out 09/14/2023 09/14/2023 09/14/2023 3:48 PM CDT COVID-19 Rule Out 11/02/2024 11/02/2024 11/02/2024 4:03 PM SHIFT LAB TECHNICIAN Assessment Noted Time PHQ-9 Depression Total Score: 4 05/12/20 22 3:34 PM CDT documented as of this encounter Care Teams Copyright Clerk Relationship Specialty Start Date End Date Dasha Conway, VAMP THROATER- [address] [place] [address] PCP - General 11/02/24 documented as of this encounter
--- OUTSIDE RECORDS SUMMARY | 2025-08-03 16:59 | XMS_ITS | Encounter Summary ---
Author Organization [facility] Address [facility]6 [place] [address] Care Team Providers Care Nuclear Power Reactor Operator Name Role Phone Dasha Conway Erlin [facility] Primary Care Provider +1- [phone] Encounter Details Date Type Department Care Team (Late st Contact Info) Description 12/03/2022 Convey Computert Message Enc [facility] Medical Group Multispecialty Care - [place] [address] [place] [address] [address] [place] [address] [place] [address] [place] [address] 157 [place] [address] Blood sugar Social History Tobacco Use Types [...] Sex Assigned at Female 01/08/2021 9:43 AM OUTREACH CONSULTANT Legal Sex Female 5:13 PM CDT Gender Identity Female 01/08/2021 9:43 AM OUTREACH CONSULTANT Sexual Orientation Straight 01/08/2021 9: 43 AM OUTREACH CONSULTANT COVID-19 Exposure Response Date Recorded In the last 10 days, have asif rodriguez been in contact with someone who was confirmed or suspected to have Coronavirus/COVID-19? No / Unsure 12/03/2022 10:51 AM OUTREACH CONSULTANT documented as of this encounter Functional [...] Rule Out 11/02/2024 11/02/2024 11/02/2024 4:03 PM OUTREACH CONSULTANT Assessment Noted Time PHQ-9 Depression Total Score: 11 1216/2 022 12:00 PM OUTREACH CONSULTANT documented as of this encounter Care Teams Nuclear Power Reactor Operator Relationship Specialty Start Date End Date Dasha Conway FNP-STEPH [address] [place], [place] [id number] PCP - General 11/02/24 documented as of this encounter
--- OUTSIDE RECORDS SUMMARY | 2025-08-03 16:59 | XMS_ITS | Encounter Summary ---
Author Organization [facility] Address Critical access hospital6 [place] [address] Care Team Providers Care Hotel Reservation Agent Name Role Phone Dasha Conway Erlin [facility] Primary Care Provider +1- [phone] Encounter Details Date Type Department Care Team (Late st Contact Info) Description 04/10/2022 Hulafrogt Message Enc [facility] Medical Group Multispecialty Care - [place] [address] [place] [address] [address] [place], [place] [phone] [place] [address] [place] [address] 157 [place] [address] Slu allergy Social History Tobacco Use Types [...] Sex Assigned at Female 01/08/2021 9:43 AM HEAVY MEDIA OPERATOR Legal Sex Female 5:13 PM CDT Gender Identity Female 01/08/2021 9:43 AM HEAVY MEDIA OPERATOR Sexual Orientation Straight 01/08/2021 9: 43 AM HEAVY MEDIA OPERATOR COVID-19 Exposure Response Date Recorded In the last 10 days, have yo michael been in contact with someone who was confirmed or suspected to have Coronavirus/COVID-19? No / Unsure 03/28/2022 8:31 PM CDT documented as of this encounter Functional Status * RETIRED Are you deaf or do you have serious difficulty hearing Answer Date of Assessment Author Status No 01/29/2022 10:15 PM HEAVY MEDIA OPERATOR Acti ve * RETIRED Are you blind or do you have serious difficulty seeing, even when wearing glasses? Answer Date of Assessment Author Status No 01/29/2022 10:15 PM HEAVY MEDIA OPERATOR Acti ve * Do you have [...] Rule Out 10/06/2022 10/06/2022 10/06/2022 1:21 PM HEAVY MEDIA OPERATOR COVID-19 Rule Out 10/06/2022 10/06/2022 10/07/2022 3:34 PM HEAVY MEDIA OPERATOR COVID-19 Rule Out 09/14/2023 09/14/2023 09/14/2023 3:48 PM CDT COVID-19 Rule Out 11/02/2024 11/02/202411/0211/02/2024 4:03 PM HEAVY MEDIA OPERATOR Assessment Noted Time PHQ-9 Depression Total Score: 15 021 11:10 AM HEAVY MEDIA OPERATOR documented as of this encounter Care Teams Hotel Reservation Agent Relationship Specialty Start Date End Date Dasha Conway, ASSISTANT INFANT TODDLER TEACHER- [address] [place] [address] PCP - General 11/02/24 documented as of this encounter
--- OUTSIDE RECORDS SUMMARY | 2025-08-03 16:59 | XMS_ITS | Encounter Summary ---
Author Organization [facility] Address [facility] [place] [address] Care Team Providers Care Locomotive Boilermaker Name Role Phone Dasha Conway Erlin [facility] Primary Care Provider +1- [phone] Encounter Details Date Type Department Care Team (Late st Contact Info) Description 08/18/2022 XYverifyt Message Enc [facility] Medical Group Multispecialty Care - [place] [address] [place] [address] [address] [place] [address] [place] [address] [place] [address] [address] [place] [address] Gi doc Social History Tobacco Use Types [...] Sex Assigned at Female 01/08/2021 9:43 AM ELECTRONICS SPECIALIST Legal Sex Female 5:13 PM CDT Gender Identity Female 01/08/2021 9:43 AM ELECTRONICS SPECIALIST Sexual Orientation Straight 01/08/2021 9: 43 AM ELECTRONICS SPECIALIST COVID-19 Exposure Response Date Recorded In [...] Rule Out 10/06/2022 10/06/2022 10/06/2022 1:21 PM ELECTRONICS SPECIALIST COVID-19 Rule Out 10/06/2022 10/06/2022 10/07/2022 3:34 PM ELECTRONICS SPECIALIST COVID-19 Rule Out 09/14/2023 09/14/2023 09/14/2023 3:48 PM CDT COVID-19 Rule Out 11/02/2024 11/02/2024 11/02/2024 4:03 PM ELECTRONICS SPECIALIST Assessment Noted Time PHQ-9 Depression Total Score: 4 05/12/20 22 3:34 PM CDT documented as of this encounter Care Teams Locomotive Boilermaker Relationship Specialty Start Date End Date Dasha Conway, COMPUTER DESIGNER- [address] [place] [address] PCP - General 11/02/24 documented as of this encounter
--- OUTSIDE RECORDS SUMMARY | 2025-08-03 16:59 | XMS_ITS | Encounter Summary ---
Author Organization [facility] Address [facility] [place] [address] Care Team Providers Care Chimney Sweeper Name Role Phone Dasha Conway [facility] Primary Care Provider +1- [phone] Encounter Details Date Type Department Care Team (Latest Contact Info) Description 01/01/2022 Gigzont Message Enc [facility] Medical Group Multispecialty Care - [place] [address] [address] [place] [address] [place] [address] [place] [address] [address] [place], [place] [id number] Normal lymph nodes Social History Tobacco Use [...] Assigned at Female 01/08/2021 9:43 AM SENIOR ENGINEERING SPECIALIST Legal Sex Female 5:13 PM CDT Gender Identity Female 01/08/2021 9:43 AM SENIOR ENGINEERING SPECIALIST Sexual Orientation Straight 01/08/2021 9: 43 AM SENIOR ENGINEERING SPECIALIST COVID-19 Exposure Response Date Recorded In the last 10 days, have yo u been in contact with someone who was confirmed or suspected to have Coronavirus/COVID-19? 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 06/30/2017 COVID-19 Rule Out 01/15/2022 01/15/2022 01/20/2022 10:53 AM SENIOR ENGINEERING SPECIALIST COVID-19 Rule Out 04/21/2022 04/21/2022 04/21/2022 11:42 AM CDT COVID-19 Rule Out 04/21/2022 04/21/2022 04/26/2022 7:02 AM CDT COVID-19 Rule Out 10/06/2022 10/06/2022 10/06/2022 1:21 PM SENIOR ENGINEERING SPECIALIST COVID-19 Rule Out 10/06/2022 10/06/2022 10/07/2022 3:34 PM SENIOR ENGINEERING SPECIALIST COVID-19 Rule Out 09/14/2023 09/14/2023 09/14/2023 3:48 PM CDT COVID-19 Rule Out 11/02/2024 11/02/2024 11/02/2024 4:03 PM SENIOR ENGINEERING SPECIALIST Assessment Noted Time PHQ-9 Depression Total Score: 15 021 11:10 AM SENIOR ENGINEERING SPECIALIST documented as of this encounter Care Teams Chimney Sweeper Relationship Specialty Start Date End Date Dasha Conway FNP-BC [address] [place] [address] PCP - General 11/02/24 documented as of this encounter
--- OUTSIDE RECORDS SUMMARY | 2025-08-03 16:59 | XMS_ITS | Encounter Summary ---
Author Organization [facility] Address [facility] [place] [address] Care Team Providers Care Application Analyst Name Role Phone Dasha Conway Erlin [facility] Primary Care Provider +1- [phone] Encounter Details Date Type Department Care Team (Late st Contact Info) Description 11/01/2022 BidRazort Message Enc [facility] Medical Group Multispecialty Care - [place] [address] [place] [address] [address] [place] [address] [place] [address] [place] [address] 157 [place] [address] Blood sugar Social History Tobacco Use Types [...] Assigned at Female 01/08/2021 9:43 AM SENIOR JAVASCRIPT DEVELOPER Legal Sex Female 5:13 PM CDT Gender Identity Female 01/08/2021 9:43 AM SENIOR JAVASCRIPT DEVELOPER Sexual Orientation Straight 01/08/2021 9: 43 AM SENIOR JAVASCRIPT DEVELOPER COVID-19 Exposure Response Date Recorded In the last 10 days, have asif rodriguez been in contact with someone who was confirmed or suspected to have Coronavirus/COVID-19? No / Unsure 10/06/2022 12:33 PM SENIOR JAVASCRIPT DEVELOPER documented as of this encounter Functional [...] Out 11/02/2024 11/02/2024 11/02/2024 4:03 PM SENIOR JAVASCRIPT DEVELOPER Assessment Noted Time PHQ-9 Depression Total Score: 4 05/12/20 22 3:34 PM CDT documented as of this encounter Care Teams Application Analyst Relationship Specialty Start Date End Date Dasha Conway FNP-STEPH [address] [place], [place] [phone] PCP - General 11/02/24 documented as of this encounter
--- OUTSIDE RECORDS SUMMARY | 2025-08-03 16:59 | XMS_ITS | Encounter Summary ---
Author Organization [facility] Address [facility] [place] [address] Care Team Providers Care Manager Council Name Role Phone Dasha Conway Erlin [facility] Primary Care Provider +1- [phone] Encounter Details Date Type Department Care Team (Late st Contact Info) Description 01/25/2022 Signixhart Message Enc [facility] Medical Group Multispecialty Care - [place] [address] [address] [place] [address] Curtis Diaz MD [address] [place] [address] 157 [place], [place] [id number] Uti? Social History Tobacco Use Types Packs/Day [...] Sex Assigned at Female 01/08/2021 9:43 AM EXPLOSIVES OPERATOR Legal Sex Female 5:13 PM CDT Gender Identity Female 01/08/2021 9:43 AM EXPLOSIVES OPERATOR Sexual Orientation Straight 01/08/2021 9: 43 AM EXPLOSIVES OPERATOR COVID-19 Exposure Response Date Recorded In the last 10 days, have yo u been in contact with someone who was confirmed or suspected to have Coronavirus/COVID-19? No / Unsure 01/26/2022 4:23 AM EXPLOSIVES OPERATOR documented as of this encounter Functional Status * Calculated C-SSRS Risk Score (Lifetime/Recent) Answer Date of Assessment Author Status No Risk Indicated 01/26/2022 11:53 AM EXPLOSIVES OPERATOR Pablo Saleem RN Active * [place] Suicide Severity Rating Scale (Screener/Recent Self-Report) Question Answer Date of Assessment Author Status 1. Wish to be (Past 1 Month) No 01/26/2022 11:53 AM Pablo Denny RN Activ e 2. Non-Specific Active Suicidal Thoughts (Past 1 Month) No 01/26/2022 11:53 AM Pablo Denny RN Activ e 6. 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 COVID-19 Rule Out 04/21/2022 04/21/2022 04/21/2022 11:42 AM CDT COVID-19 Rule Out 04/21/2022 04/21/2022 04/26/2022 7:02 AM CDT COVID-19 Rule Out 10/06/2022 10/06/2022 10/06/2022 1:21 PM EXPLOSIVES OPERATOR COVID-19 Rule Out 10/06/2022 10/06/2022 10/07/2022 3:34 PM EXPLOSIVES OPERATOR COVID-19 Rule Out 09/14/2023 09/14/2023 09/14/2023 3:48 PM CDT COVID-19 Rule Out 11/02/2024 11/02/2024 11/02/2024 4:03 PM EXPLOSIVES OPERATOR Assessment Noted Time PHQ-9 Depression Total Score: 15 021 11:10 AM EXPLOSIVES OPERATOR documented as of this encounter Care Teams Manager Council Relationship Specialty Start Date End Date Dasha Conway, PAINT STRIPPER-BC [address] [place] [address] PCP - General 11/02/24 documented as of this encounter
--- OUTSIDE RECORDS SUMMARY | 2025-08-03 16:59 | XMS_ITS | Encounter Summary ---
Author Organization [facility] Address [facility] [place] [address] Care Team Providers Care Literary Writer Name Role Phone Dasha Conway Erlin [facility] Primary Care Provider +1- [phone] Encounter Details Date Type Department Care Team (Late st Contact Info) Description 05/17/2022 Regado Bioscienceshart Message Enc [facility] Medical Group Multispecialty Care - [place] [address] [place] [address] [address] [place], [place] [address] [place] [address] [place] [address] 157 [place] [address] B12 injections Social History Tobacco Use Types [...] Assigned at Female 01/08/2021 9:43 AM INSTRUCTIONAL INTERVENTIONIST Legal Sex Female 5:13 PM CDT Gender Identity Female 01/08/2021 9:43 AM INSTRUCTIONAL INTERVENTIONIST Sexual Orientation Straight 01/08/2021 9: 43 AM INSTRUCTIONAL INTERVENTIONIST COVID-19 Exposure Response Date Recorded In the last 10 days, have yo u been in contact with someone who was confirmed or suspected to have Coronavirus/COVID-19? No / Unsure 05/17/2022 8:13 AM CDT documented as of this encounter Functional Status * RETIRED Are you deaf or do you have serious difficulty hearing Answer Date of Assessment Author Status No 01/29/2022 10:15 PM INSTRUCTIONAL INTERVENTIONIST Acti ve * RETIRED Are you blind or do you have serious difficulty seeing, even when wearing glasses? Answer Date of Assessment Author Status No 01/29/2022 10:15 PM INSTRUCTIONAL INTERVENTIONIST Acti ve * Do you have serious [...] 10:15 PM Nanette Bagley RN Active * Calculated C-SSRS Risk Score (Lifetime/Recent) Answer Date of Assessment Author Status No Risk Indicated 05/17/2022 9:03 AM CDT Curtis Diaz MD Active * [place] Suicide Severity Rating Scale (Screener/Recent Self-Report) Question Answer Date of Assessment Author Status 1. Wish to be (Past 1 Month) No 05/17/2022 9:03 AM CDT Curtis Diaz MD Active 2. Non-Specific Active Suici capo Thoughts (Past 1 Month) No 05/17/2022 9:03 AM CDT Curtis Diaz MD Active 6. Suicidal Behavior (Lifetime) No 05/17/2022 9:03 AM CDT Curtis Diaz MD Active documented as of this encounter Mental [...] Out 10/06/2022 10/06/2022 10/06/2022 1:21 PM INSTRUCTIONAL INTERVENTIONIST COVID-19 Rule Out 10/06/2022 10/06/2022 10/07/2022 3:34 PM INSTRUCTIONAL INTERVENTIONIST COVID-19 Rule Out 09/14/2023 09/14/2023 09/14/2023 3:48 PM CDT COVID-19 Rule Out 11/02/2024 11/02/2024 11/02/2024 4:03 PM INSTRUCTIONAL INTERVENTIONIST Assessment Noted Time PHQ-9 Depression Total Score: 4 05/12/20 3:34 PM CDT documented as of this encounter Care Teams Literary Writer Relationship Specialty Start Date End Date Dasha Conway, SHARE DAIRY FARMER- [address] [place] [address] PCP - General 11/02/24 documented as of this encounter
--- OUTSIDE RECORDS SUMMARY | 2025-08-03 16:59 | XMS_ITS | Encounter Summary ---
Author Organization [facility] Address [facility] [place] [address] Care Team Providers Care Explosive Ordnance Handler Name Role Phone Dasha Conway [facility] Primary Care Provider +1- [phone] Encounter Details Date Type Department Care Team (Latest Contact Info) Description 02/03/2022 Mfuset Message Enc [facility] Medical Group Multispecialty Care - [place] [address] [place] [address] [address] [place], [place] [address] [place] [address] [place] [address] [address] [place], [place] [phone] Zofran and fosfomycin Social History Tobacco Use [...] Sex Assigned at Female 01/08/2021 9:43 AM HACKLER DOLL WIGS Legal Sex Female 5:13 PM CDT Gender Identity Female 01/08/2021 9:43 AM HACKLER DOLL WIGS Sexual Orientation Straight 01/08/2021 9: 43 AM HACKLER DOLL WIGS COVID-19 Exposure Response Date Recorded In the last 10 days, have yo u been in contact with someone who was confirmed or suspected to have Coronavirus/COVID-19? No / Unsure 02/02/2022 10:59 AM CDT documented as of this encounter Functional Status * RETIRED Are you deaf or do you have serious difficulty hearing Answer Date of Assessment Author Status No 01/29/2022 10:15 PM HACKLER DOLL WIGS Acti ve * RETIRED Are you blind or do you have serious difficulty seeing, even when wearing glasses? Answer Date of Assessment Author Status No 01/29/2022 10:15 PM HACKLER DOLL WIGS Acti ve * Do you have serious [...] Rule Out 10/06/2022 10/06/2022 10/06/2022 1:21 PM HACKLER DOLL WIGS COVID-19 Rule Out 10/06/2022 10/06/2022 10/07/2022 3:34 PM HACKLER DOLL WIGS COVID-19 Rule Out 09/14/2023 09/14/2023 09/14/2023 3:48 PM CDT COVID-19 Rule Out 11/02/2024 11/02/2024 11/02/2024 4:03 PM HACKLER DOLL WIGS Assessment Noted Time PHQ-9 Depression Total Score: 15 021 11:10 AM HACKLER DOLL WIGS documented as of this encounter Care Teams Explosive Ordnance Handler Relationship Specialty Start Date End Date Dasha Conway, CEMENTER MACHINE-BC [address] [place] [id number] PCP - General 11/02/24 documented as of this encounter
--- OUTSIDE RECORDS SUMMARY | 2025-08-03 16:59 | XMS_ITS | Encounter Summary ---
Author Organization [facility] Address [facility] [place] [address] Care Team Providers Care Coal Picker Name Role Phone Dasha Conawy Erlin [facility] Primary Care Provider +1- [phone] Encounter Details Date Type Department Care Team (Late st Contact Info) Description 06/13/2022 imgixt Message Enc [facility] Medical Group Multispecialty Care - [place] [address] [place] [address] [address] [place] [address] [place] [address] [place] [address] 157 [place] [address] Blood sugar Social History Tobacco Use Types [...] Sex Assigned at Female 01/08/2021 9:43 AM ASSOCIATE PROFESSOR OF AUTOMATION Legal Sex Female 5:13 PM CDT Gender Identity Female 01/08/2021 9:43 AM ASSOCIATE PROFESSOR OF AUTOMATION Sexual Orientation Straight 01/08/2021 9: 43 AM ASSOCIATE PROFESSOR OF AUTOMATION COVID-19 Exposure Response Date Recorded In the last 10 days, have yo u been in contact with someone who was confirmed or suspected to have Coronavirus/COVID-19? No / Unsure 06/13/2022 3:19 PM CDT documented as of this encounter Functional Status * Question Answer Date of Assessment Author Status Do you have serious difficulty walking or climbing stairs? No 06/13/2022 10:59 PM CDT Denis Nam RN Ac tive * Question Answer Date of Assessment Author Status Do you have difficulty dressing or bathing? No 06/13/2022 10:59 PM CDT Denis Nam R N Active Because of a physical, mental, or emotional condition, do you have difficulty doing errands alone such as visiting a doctor's office or shopping? No 06/13/2022 10:59 PM CDT Denis Nam RN Act radha * RETIRED Are you deaf or do you have serious difficulty hearing Answer Date of Assessment Author Status No 01/29/2022 10:15 PM ASSOCIATE PROFESSOR OF AUTOMATION Acti ve * RETIRED Are you blind or do you have serious difficulty seeing, even when wearing glasses? Answer Date of Assessment Author Status No 01/29/2022 10:15 PM ASSOCIATE PROFESSOR OF AUTOMATION Acti ve * Do you have serious difficulty walking or climbing stairs? Answer Date of Assessment Author Status No 01/29/2022 10:15 PM ASSOCIATE PROFESSOR OF AUTOMATION Nanette Leonard RN Active * Do you have difficulty [...] of Assessment Author Status No Risk Indicated 06/13/2022 3:21 PM FAUZIAT Boyd Millard RN Active * [place] Suicide Severity Rating Scale (Screener/Recent Self-Report) Question Answer Date of Assessment Author Status 1. Wish to be (Past 1 Month) No 06/13/2022 3:21 PM FAUZIAT Melida Millard RN Active 2. Non-Specific Active Suicidal Thoughts (Past 1 Month) No 06/13/2022 3:21 PM FAUZIAT Kuberski, Melida L, RN Active 6. Suicidal Behavior (Lifetime) No 06/13/2022 3:21 PM CDT Melida Millard RN Active documented as of this encounter Mental Status * Question Answer Entry Date Author Status Because of a physical, mental, or emotional condition, do you have serious difficulty concentrating, remembering, or making decisions? No 06/13/2022 10:59 PM CDT Denis Nam RN Active * Because of a physical, mental, or emotional condition, do you have serious difficulty concentrating, remembering, or making decisions? Answer Entry Date Author Status No 01/29/2022 10:15 PM ASSOCIATE PROFESSOR OF AUTOMATION Nanette Leonard RN Active documented in this [...] Rule Out 10/06/2022 10/06/2022 10/06/2022 1:21 PM ASSOCIATE PROFESSOR OF AUTOMATION COVID-19 Rule Out 10/06/2022 10/06/2022 10/07/2022 3:34 PM ASSOCIATE PROFESSOR OF AUTOMATION COVID-19 Rule Out 09/14/2023 09/14/2023 09/14/2023 3:48 PM CDT COVID-19 Rule Out 11/02/2024 11/02/2024 11/02/2024 4:03 PM ASSOCIATE PROFESSOR OF AUTOMATION Assessment Noted Time PHQ-9 Depression Total Score: 4 05/12/20 3:34 PM CDT documented as of this encounter Care Teams Coal Picker Relationship Specialty Start Date End Date Dasha Conway, CHRISTINE-STEPH [address] [place] [address] PCP - General 11/02/24 documented as of this encounter
--- OUTSIDE RECORDS SUMMARY | 2025-08-03 16:59 | XMS_ITS | Encounter Summary ---
Author Organization [facility] Address [facility] [place] [address] Care Team Providers Care Pipe Layer Helper Name Role Phone Dasha Conway [facility] Primary Care Provider +1- [phone] Encounter Details Date Type Department Care Team (Latest Contact Info) Description 03/08/2022 TerraEchost Message Enc [facility] Medical Group Multispecialty Care - [place] [address] [address] [place] [address] [place] [address] [place] [address] 157 [place], [place] [phone] Kidney infection Social History Tobacco Use Types [...] Sex Assigned at Female 01/08/2021 9:43 AM SOUND ASSISTANT Legal Sex Female 5:13 PM CDT Gender Identity Female 01/08/2021 9:43 AM SOUND ASSISTANT Sexual Orientation Straight 01/08/2021 9: 43 AM SOUND ASSISTANT COVID-19 Exposure Response Date Recorded In the last 10 days, have yo u been in contact with someone who was confirmed or suspected to have Coronavirus/COVID-19? No / Unsure 03/10/2022 3:15 PM CDT documented as of this encounter Functional Status * RETIRED Are you deaf or do you have serious difficulty hearing Answer Date of Assessment Author Status No 01/29/2022 10:15 PM SOUND ASSISTANT Acti ve * RETIRED Are you blind or do you have serious difficulty seeing, even when wearing glasses? Answer Date of Assessment Author Status No 01/29/2022 10:15 PM SOUND ASSISTANT Acti ve * Do you have [...] Date Author Status No 01/29/2022 10:15 PM Naentte Bagley RN Active documented in this encounter [...] Rule Out 10/06/2022 10/06/2022 10/06/2022 1:21 PM SOUND ASSISTANT COVID-19 Rule Out 10/06/2022 10/06/2022 10/07/2022 3:34 PM SOUND ASSISTANT COVID-19 Rule Out 09/14/2023 09/14/2023 09/14/2023 3:48 PM CDT COVID-19 Rule Out 11/02/2024 11/02/2024 11/02/2024 4:03 PM SOUND ASSISTANT Assessment Noted Time PHQ-9 Depression Total Score: 15 021 11:10 AM SOUND ASSISTANT documented as of this encounter Care Teams Pipe Layer Helper Relationship Specialty Start Date End Date Dasha Conway FNP-BC [address] [place] [phone] PCP - General 11/02/24 documented as of this encounter
--- OUTSIDE RECORDS SUMMARY | 2025-08-03 16:59 | XMS_ITS | Encounter Summary ---
Author Organization [facility] Address [facility] [place] [address] Care Team Providers Care Director Of Elementary Education Name Role Phone Dasha Conway Erlin [facility] Primary Care Provider +1- [phone] Encounter Details Date Type Department Care Team (Latest Contact Info) Description 01/17/2023 SkyPilot Networks Message Enc [facility] Medical Group Multispecialty Care - [place] [address] [place] [address] [address] [place] [address] Curtis Diaz MD [address] [facility] 157 [place], [place] [id number] morning blood sugars Social History Tobacco Use [...] Sex Assigned at Female 01/08/2021 9:43 AM INDUSTRIAL MILLWRIGHT Legal Sex Female 5:13 PM CDT Gender Identity Female 01/08/2021 9:43 AM INDUSTRIAL MILLWRIGHT Sexual Orientation Straight 01/08/2021 9: 43 AM INDUSTRIAL MILLWRIGHT COVID-19 Exposure Response Date Recorded In the last 10 days, have yo michael been in contact with someone who was confirmed or suspected to have Coronavirus/COVID-19? No / Unsure 01/11/2023 8:54 AM INDUSTRIAL MILLWRIGHT documented as of this encounter Functional Status [...] Rule Out 11/02/2024 11/02/2024 11/02/2024 4:03 PM INDUSTRIAL MILLWRIGHT Assessment Noted Time PHQ-9 Depression Total Score: 11 12/2 022 12:00 PM INDUSTRIAL MILLWRIGHT documented as of this encounter Care Teams Director Of Elementary Education Relationship Specialty Start Date End Date Dasha Conway FNP- [address] [place] [id number] PCP - General 11/02/24 documented as of this encounter
--- OUTSIDE RECORDS SUMMARY | 2025-08-03 16:59 | XMS_ITS | Encounter Summary ---
Author Organization [facility] Address [facility] [place] [address] Care Team Providers Care Filler Room Attendant Name Role Phone Dasha Conway Erlin [facility] Primary Care Provider +1- [phone] Encounter Details Date Type Department Care Team (Late st Contact Info) Description 02/09/2022 MegloManiac Communicationst Message Enc [facility] Medical Group Multispecialty Care - [place] [address] [address] [place], [place] [address] Curtis Diaz MD [address] [place] [address] 157 [place] [address] Uti Social History Tobacco Use Types Packs/Day [...] Sex Assigned at Female 01/08/2021 9:43 AM SAP CRM DEVELOPER Legal Sex Female 5:13 PM CDT Gender Identity Female 01/08/2021 9:43 AM SAP CRM DEVELOPER Sexual Orientation Straight 01/08/2021 9: 43 AM SAP CRM DEVELOPER COVID-19 Exposure Response Date Recorded In the last 10 days, have yo u been in contact with someone who was confirmed or suspected to have Coronavirus/COVID-19? No / Unsure 02/10/2022 10:06 AM CDT documented as of this encounter Functional Status * RETIRED Are you deaf or do you have serious difficulty hearing Answer Date of Assessment Author Status No 01/29/2022 10:15 PM SAP CRM DEVELOPER Acti ve * RETIRED Are you blind or do you have serious difficulty seeing, even when wearing glasses? Answer Date of Assessment Author Status No 01/29/2022 10:15 PM SAP CRM DEVELOPER Acti ve * Do you have serious [...] Rule Out 10/06/2022 10/06/2022 10/06/2022 1:21 PM SAP CRM DEVELOPER COVID-19 Rule Out 10/06/2022 10/06/2022 10/07/2022 3:34 PM SAP CRM DEVELOPER COVID-19 Rule Out 09/14/2023 09/14/2023 09/14/2023 3:48 PM CDT COVID-19 Rule Out 11/02/2024 11/02/2024 11/02/2024 4:03 PM SAP CRM DEVELOPER Assessment Noted Time PHQ-9 Depression Total Score: 15 021 11:10 AM SAP CRM DEVELOPER documented as of this encounter Care Teams Filler Room Attendant Relationship Specialty Start Date End Date Dasha Conway FNP-BC [address] [place] [phone] PCP - General 11/02/24 documented as of this encounter
--- OUTSIDE RECORDS SUMMARY | 2025-08-03 16:59 | XMS_ITS | Encounter Summary ---
Author Organization [facility] Address [facility] [place] [address] Care Team Providers Care Starch Factory Laborer Name Role Phone Daryl Metzger MD Primary Care Provider Dasha Vicente [facility] Primary Care Provider [phone]- [phone] Encounter Details Date Type Department Care Team (Late st Contact Info) Description 08/25/2020 MyChart Message Enc [facility] Medical [facility] Multispecialty Care - [facility] [address] [facility] [place] [address] Donovan Parks MD 3 [facility] [address] [place] [address] RE: Question Social History Tobacco Use Types Packs/Day Years Used Date Smoking Tobacco: Every Day Cigarettes Smokeless Tobacco: Never Alcohol Use Standard Drinks/Week Comments Not Currently 0 (1 standard drink = 0.6 oz pur e alcohol) PHQ-2 Answer Date Recorded PHQ-2 Score 3 06/23/2020 Comments No Sex and Gender Information Value Date Recorded Sex Assigned at Female 01/08/2021 9:43 AM INFORMATION TECH Legal Sex Female 5:13 PM CDT Gender Identity Female 01/08/2021 9:43 AM INFORMATION TECH Sexual Orientation Straight 01/08/2021 9: 43 AM INFORMATION TECH COVID-19 Exposure Response Date Recorded In the [...] Rule Out 12/16/2020 12/16/2020 12/17/2020 4:31 PM INFORMATION TECH COVID-19 Rule Out 06/05/2021 06/05/2021 06/05/2021 12:31 PM CDT COVID-19 Rule Out 10/23/2021 10/23/2021 10/23/2021 9:25 AM INFORMATION TECH COVID-19 Rule Out 10/23/2021 10/23/2021 10/24/2021 12:21 AM INFORMATION TECH COVID-19 Rule Out 01/15/2022 01/15/2022 01/20/2022 10:53 AM INFORMATION TECH COVID-19 Rule Out 04/21/2022 04/21/2022 04/21/2022 11:42 AM CDT COVID-19 Rule Out 04/21/2022 04/21/2022 04/26/2022 7:02 AM CDT COVID-19 Rule Out 10/06/2022 10/06/2022 10/06/2022 1:21 PM INFORMATION TECH COVID-19 Rule Out 10/06/2022 10/06/2022 10/07/2022 3:34 PM INFORMATION TECH COVID-19 Rule Out 09/14/2023 09/14/2023 09/14/2023 3:48 PM CDT COVID-19 Rule Out 11/02/2024 11/02/2024 11/02/2024 4:03 PM INFORMATION TECH Assessment Noted Time PHQ-9 Depression Total Score: 13 020 1:12 PM CDT documented as of this encounter Care Teams Starch Factory Laborer Relationship Specialty Start Date End Date Daryl Metzger MD PCP - General FAMILY MEDICINE SPORTS MEDICINE 08/20/20 10/09/20 Dasha Conway FNP- [address] [place] [address] PCP - General 11/02/24 documented as of this encounter
--- OUTSIDE RECORDS SUMMARY | 2025-08-03 16:59 | XMS_ITS | Encounter Summary ---
Author Organization [facility] Address [facility] [place] [address] Care Team Providers Care Medical Records Receptionist Name Role Phone Daryl Metzger MD Primary Care Provider Bradley Gallegos MD Primary Care Provider [phone] Daryl Metzger MD Primary Care Provider UnavailDasha Banks [facility] Primary Care Provider [phone]- [phone] Encounter Details Date Type Department Care Team (Late st Contact Info) Description 06/27/2020 MyCEquityZent Message Enc [facility] Medical Group Family Medicine - [place] [address] [place] [address] Daryl Metzger MD RE: Follow Up/Update Social [...] Sex Assigned at Female 01/08/2021 9:43 AM CD MIXER HELPER Legal Sex Female 5:13 PM CDT Gender Identity Female 01/08/2021 9:43 AM CD MIXER HELPER Sexual Orientation Straight 01/08/2021 9: 43 AM CD MIXER HELPER COVID-19 Exposure Response Date Recorded In [...] Rule Out 12/16/2020 12/16/2020 12/17/2020 4:31 PM CD MIXER HELPER COVID-19 Rule Out 06/05/2021 06/05/2021 06/05/2021 12:31 PM CDT COVID-19 Rule Out 10/23/2021 10/23/2021 10/23/2021 9:25 AM CD MIXER HELPER COVID-19 Rule Out 10/23/2021 10/23/2021 10/24/2021 12:21 AM CD MIXER HELPER COVID-19 Rule Out 01/15/2022 01/15/2022 01/20/2022 10:53 AM CD MIXER HELPER COVID-19 Rule Out 04/21/2022 04/21/2022 04/21/2022 11:42 AM CDT COVID-19 Rule Out 04/21/2022 04/21/2022 04/26/2022 7:02 AM CDT COVID-19 Rule Out 10/06/2022 10/06/2022 10/06/2022 1:21 PM CD MIXER HELPER COVID-19 Rule Out 10/06/2022 10/06/2022 10/07/2022 3:34 PM CD MIXER HELPER COVID-19 Rule Out 09/14/2023 09/14/2023 09/14/2023 3:48 PM CDT COVID-19 Rule Out 11/02/2024 11/02/2024 11/02/2024 4:03 PM CD MIXER HELPER Assessment Noted Time PHQ-9 Depression Total Score: 13 020 1:12 PM CDT documented as of this encounter Care Teams Medical Records Receptionist Relationship Specialty Start Date End Date Daryl Metzger MD PCP - General FAMILY MEDICINE SPORTS MEDICINE 06/23/20 08/12/20 Bradley Carmichael MD [address] [place] [address] MEDICAL OFFICE BUILDING [address] [place] [address] PCP - General INTERNAL MEDICINE 08/13/20 08/19/20 Daryl Metzger MD PCP - General FAMILY MEDICINE SPORTS MEDICINE 08/20/20 10/09/20 Dasha Conway, DYE FEEDER- [address] [place] [address] PCP - General 11/02/24 documented as of this encounter
--- OUTSIDE RECORDS SUMMARY | 2025-08-03 16:59 | XMS_ITS | Encounter Summary ---
Author Organization [facility] Address [facility] [place] [address] Care Team Providers Care Hostel Parent Name Role Phone Dasha Conway Erlin [facility] Primary Care Provider [phone]- [phone] Encounter Details Date Type Department Care Team (Late st Contact Info) Description 04/07/2022 Optimitivet Message Enc [facility] Medical Group Multispecialty Care - [place] [address] [address] [place], [place] [id number] [place] [address] [place] [address] [address] [place] [address] Dexamethasone Social History Tobacco Use Types Packs/Day [...] Sex Assigned at Female 01/08/2021 9:43 AM DIRECTOR AIRPORT OPERATIONS Legal Sex Female 5:13 PM CDT Gender Identity Female 01/08/2021 9:43 AM DIRECTOR AIRPORT OPERATIONS Sexual Orientation Straight 01/08/2021 9: 43 AM DIRECTOR AIRPORT OPERATIONS COVID-19 Exposure Response Date Recorded In the last 10 days, have yo michael been in contact with someone who was confirmed or suspected to have Coronavirus/COVID-19? No / Unsure 03/28/2022 8:31 PM CDT documented as of this encounter Functional Status * RETIRED Are you deaf or do you have serious difficulty hearing Answer Date of Assessment Author Status No 01/29/2022 10:15 PM DIRECTOR AIRPORT OPERATIONS Acti ve * RETIRED Are you blind or do you have serious difficulty seeing, even when wearing glasses? Answer Date of Assessment Author Status No 01/29/2022 10:15 PM DIRECTOR AIRPORT OPERATIONS Acti ve * Do you have serious [...] Rule Out 10/06/2022 10/06/2022 10/06/2022 1:21 PM DIRECTOR AIRPORT OPERATIONS COVID-19 Rule Out 10/06/2022 10/06/2022 10/07/2022 3:34 PM DIRECTOR AIRPORT OPERATIONS COVID-19 Rule Out 09/14/2023 09/14/2023 09/14/2023 3:48 PM CDT COVID-19 Rule Out 11/02/2024 11/02/2024 11/02/2024 4:03 PM DIRECTOR AIRPORT OPERATIONS Assessment Noted Time PHQ-9 Depression Total Score: 15 021 11:10 AM DIRECTOR AIRPORT OPERATIONS documented as of this encounter Care Teams Hostel Parent Relationship Specialty Start Date End Date Dasha Conway, RADIOGRAPHIC TECHNOLOGIST- [address] [place] [address] PCP - General 11/02/24 documented as of this encounter
--- OUTSIDE RECORDS SUMMARY | 2025-08-03 16:59 | XMS_ITS | Encounter Summary ---
Author Organization [facility] Address [facility]6 [place] [address] Care Team Providers Care Foreign Food Specialty Cook Name Role Phone Dasha Conway Erlin [facility] Primary Care Provider [phone]- [phone] Encounter Details Date Type Department Care Team (Late st Contact Info) Description 07/31/2022 IMTt Message Enc [facility] Medical Group Multispecialty Care - [place] [address] [place] [address] [address] [place], [place] [phone] [place] [address] [place] [address] [address] [place] [address] Ashlie Social History Tobacco Use Types Packs/Day [...] Assigned at Female 01/08/2021 9:43 AM ELECTRONIC CALIBRATION TECHNICIAN Legal Sex Female 5:13 PM CDT Gender Identity Female 01/08/2021 9:43 AM ELECTRONIC CALIBRATION TECHNICIAN Sexual Orientation Straight 01/08/2021 9: 43 AM ELECTRONIC CALIBRATION TECHNICIAN COVID-19 Exposure Response Date Recorded In [...] PM CDT Denis Nam RN Active * Actual/Potential Lethality (Most Lethal Attempt) Question Answer Date of Assessment Author Status Actual Lethality/Medical Damage Code (Most Lethal Attempt) 0 08/02/2022 11:13 AM CDT Sanjay Baez RN Activ e Potential Lethality Code (Most Lethal Attempt) 0 08/02/2022 11:13 AM CDT Sanjay Baez RN Active * Actual/Potential Lethality (Most Recent Attempt) Question Answer Date of Assessment Author Status Most Recent Attempt Date [id number] 08/02/2022 11:13 AM CD Sanjay Santa RN Active Actual Lethality/Medical Damage Code (Most Recent Attempt) 2 08/02/2022 11:13 AM CDT Sanjay Baez RN Activ e Potential Lethality Code (Most Recent Attempt) 0 08/02/2022 11:13 AM CDT Sanjay Baez RN Active * Actual/Potential Lethality (Initial/First Attempt) Question Answer Date of Assessment Author Status Actual Lethality/Medical Damage Code (Initial/First Attempt) 0 08/02/2022 11:13 AM CDT Sanjay Baez RN Activ e Potential Lethality Code (Initial/First Attempt) 0 08/02/2022 11:13 AM CDT Sanjay Baez RN Active * Calculated C-SSRS Risk Score (Lifetime/Recent) Answer Date of Assessment Author Status No Risk Indicated 08/02/2022 11:07 PM CDT Janelle Barbosa RN Active * Suicidal Ideation Question Answer Date of Assessment Author Status 1. Wish to be (Lifetime) Yes 08/02/2022 11:13 AM CDT Sanjay Baez RN Activ e 2. Non-Specific Active Suicidal Thoughts (Lifetime) Yes 08/02/2022 11:13 AM CDT Britton Baez RN Active 3. Active Suicidal Ideation with any Methods (Not Plan) Without Intent to Act (Lifetime) No 08/02/2022 11:13 AM CDSanjay Santa RN Activ e 4. Active Suicidal Ideation with Some Intent to Act, Without Specific Plan (Lifetime) No 08/02/2022 11:13 AM Sanjay Gr RN Activ e 5. Active Suicidal Ideation with Specific Plan and Intent (Lifetime) No 08/02/2022 11:13 AM Sanjay Gr RN Act radha * Intensity of Ideation Question Answer Date of Assessment Author Status Most Severe Ideation Rating (Lifetime) 5 08/02/2022 11:13 AM Sanjay Gr RN Active Description of Most Severe Ideation (Lifetime) OD in the past 08/02/2022 11:13 AM Sanjay Gr RN Active Frequency (Lifetime) 1 08/02/2022 11:13 AM Sanjay Gr RN Active Duration (Lifetime) 1 08/02/2022 1 1:13 AM Sanjay Gr RN Active Controllability (Lifetime) 1 08/02 11:13 AM CDSanjay Santa RN Active Deterrents (Lifetime) 1 08/02/2022 11:13 AM Sanjay Gr RN Active Reasons for Ideation (Lifetime) 1 08/02/2022 11:13 AM Sanjay Gr RN Active Frequency (Past 1 Month) 1 022 11:13 AM Sanjay Gr RN Active Duration (Past 1 Month) 1 08/02/20 22 11:13 AM CDSanjay Santa RN Active Controllability (Past 1 Month) 1 08/02/2022 11:13 AM Sanjay Gr RN Active Deterrents (Past 1 Month) 1 2021 11:13 AM Sanjay Gr RN Active Reasons for Ideation (Past 1 Month) 1 08/02/2022 11:13 AM Sanjay Gr RN Active * Suicidal Behavior Question Answer Date of Assessment Author Status Actual Attempt (Lifetime) Yes 08/02/2022 11:13 AM C Sanjay Bertrand RN Active Total Number of Actual Attempts (Lifetime) 5 08/02/2022 11:13 AM Sanjay Gr RN A ctive Has subject engaged in non-suicidal self-injurious behavior? (Lifetime) Yes 08/02/2022 11:13 AM Sanjay Gr RN Active Interrupted Attempts (Lifetime) No 08/02/2022 11:13 AM Sanjay Gr RN Activ e Aborted or Self-Interrupted Attempt (Lifetime) Yes 08/02/2022 11:13 AM Sanjay Gr RN Ac tive Total Number of Aborted or Self-Interrupted Attempts (Lifetime) 5 08/02/2022 11:13 AM Sanjay Gr RN Activ e Preparatory Acts or Behavior (Lifetime) Yes 08/02/2022 11:13 AM Sanjay Gr RN Activ e Total Number of Preparatory Acts (Lifetime) 5 08/02/2022 11:13 AM Sanjay Gr RN Activ e Actual Attempt (Past 3 Months) No 08/02/2022 11:13 AM Sanjay Gr RN Activ e Has subject engaged in non-suicidal self-injurious behavior? (Past 3 Months) No 08/02/2022 11:13 AM Sanjay Gr RN Active Aborted or Self-Interrupted Attempt (Past 3 Months) No 08/02/2022 11:13 AM Sanjay Gr RN Active Preparatory Acts or Behavior (Past 3 Months) No 08/02/2022 11:13 AM Sanjay Gr RN Activ e * [place] Suicide Severity Rating Scale (Screener/Recent Self-Report) Question Answer Date of Assessment Author Status 1. Wish to be (Past 1 Month) No 08/02/2022 11:07 PM CDT Kayla Barbosa RN Activ e 2. Non-Specific Active Suicidal Thoughts (Past 1 Month) No 08/02/2022 11:07 PM CDT Kayla Barbosa RN Activ e 6. Suicidal Behavior (Lifetime) No 08/02/2022 11:07 PM CDT Kayla Barbosa RN Activ e 6. Suicidal Behavior (3 Months) No 08/02/2022 11:07 PM CDT Kayla Barbosa RN Activ e documented as of this encounter Mental Status [...] Out 10/06/2022 10/06/2022 10/06/2022 1:21 PM ELECTRONIC CALIBRATION TECHNICIAN COVID-19 Rule Out 10/06/2022 10/06/2022 10/07/2022 3:34 PM ELECTRONIC CALIBRATION TECHNICIAN COVID-19 Rule Out 09/14/2023 09/14/2023 09/14/2023 3:48 PM CDT COVID-19 Rule Out 11/02/2024 11/02/2024 11/02/2024 4:03 PM ELECTRONIC CALIBRATION TECHNICIAN Assessment Noted Time PHQ-9 Depression Total Score: 4 05/12/20 22 3:34 PM CDT documented as of this encounter Care Teams Foreign Food Specialty Cook Relationship Specialty Start Date End Date Dasha Conway FNP-BC [address] [place] [id number] PCP - General 11/02/24 documented as of this encounter
--- OUTSIDE RECORDS SUMMARY | 2025-08-03 16:59 | XMS_ITS | Encounter Summary ---
Author Organization [facility] Address [facility]6 [place] [address] Care Team Providers Care Clerical Order Filler Name Role Phone Daryl Metzger MD Primary Care Provider Bradley Gallegos MD Primary Care Provider [phone] Daryl Metzger MD Primary Care Provider UnavailDasha Banks [facility] Primary Care Provider [phone]- [phone] Encounter Details Date Type Department Care Team (Late st Contact Info) Description 07/13/2020 MyChart Message Enc [facility] Medical Group Family Medicine - [place] [address] [place] [address] Daryl Metzger MD RE: Referral Request Social [...] Assigned at Female 01/08/2021 9:43 AM ASSISTANT CENTER MANAGER Legal Sex Female 5:13 PM CDT Gender Identity Female 01/08/2021 9:43 AM ASSISTANT CENTER MANAGER Sexual Orientation Straight 01/08/2021 9: 43 AM ASSISTANT CENTER MANAGER COVID-19 Exposure Response Date Recorded In [...] Rule Out 12/16/2020 12/16/2020 12/17/2020 4:31 PM ASSISTANT CENTER MANAGER COVID-19 Rule Out 06/05/2021 06/05/2021 06/05/2021 12:31 PM CDT COVID-19 Rule Out 10/23/2021 10/23/2021 10/23/2021 9:25 AM ASSISTANT CENTER MANAGER COVID-19 Rule Out 10/23/2021 10/23/2021 10/24/2021 12:21 AM ASSISTANT CENTER MANAGER COVID-19 Rule Out 01/15/2022 01/15/2022 01/20/2022 10:53 AM ASSISTANT CENTER MANAGER COVID-19 Rule Out 04/21/2022 04/21/2022 04/21/2022 11:42 AM CDT COVID-19 Rule Out 04/21/2022 04/21/2022 04/26/2022 7:02 AM CDT COVID-19 Rule Out 10/06/2022 10/06/2022 10/06/2022 1:21 PM ASSISTANT CENTER MANAGER COVID-19 Rule Out 10/06/2022 10/06/2022 10/07/2022 3:34 PM ASSISTANT CENTER MANAGER COVID-19 Rule Out 09/14/2023 09/14/2023 09/14/2023 3:48 PM CDT COVID-19 Rule Out 11/02/2024 11/02/2024 11/02/2024 4:03 PM ASSISTANT CENTER MANAGER Assessment Noted Time PHQ-9 Depression Total Score: 13 020 1:12 PM CDT documented as of this encounter Care Teams Clerical Order Filler Relationship Specialty Start Date End Date Daryl Metzger MD PCP - General FAMILY MEDICINE SPORTS MEDICINE 06/23/20 08/12/20 Bradley Carmichael MD [address] [place] [address] [address] MEDICAL OFFICE BUILDING [address] [place] [address] PCP - General INTERNAL MEDICINE 08/13/20 08/19/20 Daryl Metzger MD PCP - General FAMILY MEDICINE SPORTS MEDICINE 08/20/20 10/09/20 Dasha Conway, AERONAUTICAL DESIGN ENGINEER- [address] [place] [address] PCP - General 11/02/24 documented as of this encounter
--- OUTSIDE RECORDS SUMMARY | 2025-08-03 16:59 | XMS_ITS | Encounter Summary ---
Author Organization [facility] Address [facility] [place] [address] Care Team Providers Care Financial Services Professional Name Role Phone Dasha Conway Erlin [facility] Primary Care Provider [phone] Encounter Details Date Type Department Care Team (Late st Contact Info) Description 03/24/2022 Deep Domaint Message Enc [facility] Medical Group Multispecialty Care - [place] [address] [address] [place], [place] [id number] [place] [address] [place] [address] [address] [place] [address] Dexamethasone Social History Tobacco Use Types Packs/Day [...] Sex Assigned at Female 01/08/2021 9:43 AM ICE BAG ASSEMBLER Legal Sex Female 5:13 PM CDT Gender Identity Female 01/08/2021 9:43 AM ICE BAG ASSEMBLER Sexual Orientation Straight 01/08/2021 9: 43 AM ICE BAG ASSEMBLER COVID-19 Exposure Response Date Recorded In the last 10 days, have yo michael been in contact with someone who was confirmed or suspected to have Coronavirus/COVID-19? No / Unsure 03/20/2022 10:11 AM CDT documented as of this encounter Functional Status * RETIRED Are you deaf or do you have serious difficulty hearing Answer Date of Assessment Author Status No 01/29/2022 10:15 PM ICE BAG ASSEMBLER Acti ve * RETIRED Are you blind or do you have serious difficulty seeing, even when wearing glasses? Answer Date of Assessment Author Status No 01/29/2022 10:15 PM ICE BAG ASSEMBLER Acti ve * Do you have serious [...] Rule Out 10/06/2022 10/06/2022 10/06/2022 1:21 PM ICE BAG ASSEMBLER COVID-19 Rule Out 10/06/2022 10/06/2022 10/07/2022 3:34 PM ICE BAG ASSEMBLER COVID-19 Rule Out 09/14/2023 09/14/2023 09/14/2023 3:48 PM CDT COVID-19 Rule Out 11/02/2024 11/02/2024 11/02/2024 4:03 PM ICE BAG ASSEMBLER Assessment Noted Time PHQ-9 Depression Total Score: 15 021 11:10 AM ICE BAG ASSEMBLER documented as of this encounter Care Teams Financial Services Professional Relationship Specialty Start Date End Date Dasha Conway, PORTABLE TRACKMAN- [address] [place] [address] PCP - General 11/02/24 documented as of this encounter
--- OUTSIDE RECORDS SUMMARY | 2025-08-03 16:59 | XMS_ITS | Encounter Summary ---
Author Organization [facility] Address [facility]6 [place] [address] Care Team Providers Care Outside Operator Name Role Phone Dasha Conway Erlin [facility] Primary Care Provider [phone]- [phone] Encounter Details Date Type Department Care Team (Late st Contact Info) Description 06/03/2022 Infinancialshart Message Enc [facility] Medical Group Multispecialty Care - [place] [address] [address] [place] [address] [place] [address] [place] [address] 157 [place] [address] Yeast infection Social History Tobacco Use Types [...] Sex Assigned at Female 01/08/2021 9:43 AM STEWARD/STEWARDESS CLUB CAR Legal Sex Female 5:13 PM CDT Gender Identity Female 01/08/2021 9:43 AM STEWARD/STEWARDESS CLUB CAR Sexual Orientation Straight 01/08/2021 9: 43 AM STEWARD/STEWARDESS CLUB CAR COVID-19 Exposure Response Date Recorded In the last 10 days, have yo u been in contact with someone who was confirmed or suspected to have Coronavirus/COVID-19? No / Unsure 06/04/2022 9:36 AM CDT documented as of this encounter Functional Status * RETIRED Are you deaf or do you have serious difficulty hearing Answer Date of Assessment Author Status No 01/29/2022 10:15 PM STEWARD/STEWARDESS CLUB CAR Acti ve * RETIRED Are you blind or do you have serious difficulty seeing, even when wearing glasses? Answer Date of Assessment Author Status No 01/29/2022 10:15 PM STEWARD/STEWARDESS CLUB CAR Acti ve * Do you have serious [...] Rule Out 10/06/2022 10/06/2022 10/06/2022 1:21 PM STEWARD/STEWARDESS CLUB CAR COVID-19 Rule Out 10/06/2022 10/06/2022 10/07/2022 3:34 PM STEWARD/STEWARDESS CLUB CAR COVID-19 Rule Out 09/14/2023 09/14/2023 09/14/2023 3:48 PM CDT COVID-19 Rule Out 11/02/2024 11/02/2024 11/02/2024 4:03 PM STEWARD/STEWARDESS CLUB CAR Assessment Noted Time PHQ-9 Depression Total Score: 4 05/12/20 22 3:34 PM CDT documented as of this encounter Care Teams Outside Operator Relationship Specialty Start Date End Date Dasha Conway FNP-STEPH [address] [place] [address] PCP - General 11/02/24 documented as of this encounter
--- OUTSIDE RECORDS SUMMARY | 2025-08-03 16:59 | XMS_ITS | Encounter Summary ---
Author Organization [facility] Address [facility]6 [place] [address] Care Team Providers Care Geophysical Data Technician Name Role Phone Dasha Conway Erlin [facility] Primary Care Provider [phone]- [phone] Encounter Details Date Type Department Care Team (Late st Contact Info) Description 11/09/2022 Effortless Energyt Message Enc [facility] Medical Group Multispecialty Care - [place] [address] [place] [address] [address] [place] [address] [place] [address] [place] [address] 157 [place] [address] A1c Social History Tobacco Use Types Packs/Day [...] Sex Assigned at Female 01/08/2021 9:43 AM WALLPAPER EMBOSSER HELPER Legal Sex Female 5:13 PM CDT Gender Identity Female 01/08/2021 9:43 AM WALLPAPER EMBOSSER HELPER Sexual Orientation Straight 01/08/2021 9: 43 AM WALLPAPER EMBOSSER HELPER COVID-19 Exposure Response Date Recorded In the last 10 days, have asif rodriguez been in contact with someone who was confirmed or suspected to have Coronavirus/COVID-19? No / Unsure 11/05/2022 9:02 AM WALLPAPER EMBOSSER HELPER documented as of this encounter Functional Status [...] Assessment Author Status No 06/13/2022 10:59 PM FAUIZAT Denis Nam RN Active * Do you [...] Rule Out 11/02/2024 11/02/2024 11/02/2024 4:03 PM WALLPAPER EMBOSSER HELPER Assessment Noted Time PHQ-9 Depression Total Score: 11 1216/2 022 12:00 PM WALLPAPER EMBOSSER HELPER documented as of this encounter Care Teams Geophysical Data Technician Relationship Specialty Start Date End Date Dasha Conway FNP-BC [address] [place], [place] [phone] PCP - General 11/02/24 documented as of this encounter
--- OUTSIDE RECORDS SUMMARY | 2025-08-03 16:59 | XMS_ITS | Encounter Summary ---
Author Organization [facility] Address [facility]6 [place] [address] Care Team Providers Care Digital Media Producer Name Role Phone Daryl Metzger MD Primary Care Provider Dasha Vicente [facility] Primary Care Provider +1- [phone] Encounter Details Date Type Department Care Team (Late st Contact Info) Description 08/24/2020 MyChart Message Enc [facility] Medical Group Multispecialty Care - [facility] [address] [facility] [address] [place] [address] Donovan Parks MD 3 [facility] [address] [place] [address] Question Social History Tobacco Use Types Packs/Day Years Used Date Smoking Tobacco: Every Day Cigarettes Smokeless Tobacco: Never Alcohol Use Standard Drinks/Week Comments Not Currently 0 (1 standard drink = 0.6 oz pur e alcohol) PHQ-2 Answer Date Recorded PHQ-2 Score 3 06/23/2020 Comments No Sex and Gender Information Value Date Recorded Sex Assigned at Female 01/08/2021 9:43 AM STRIP PICKER Legal Sex Female 5:13 PM CDT Gender Identity Female 01/08/2021 9:43 AM STRIP PICKER Sexual Orientation Straight 01/08/2021 9: 43 AM STRIP PICKER COVID-19 Exposure Response Date Recorded In the [...] Rule Out 12/16/2020 12/16/2020 12/17/2020 4:31 PM STRIP PICKER COVID-19 Rule Out 06/05/2021 06/05/2021 06/05/2021 12:31 PM CDT COVID-19 Rule Out 10/23/2021 10/23/2021 10/23/2021 9:25 AM STRIP PICKER COVID-19 Rule Out 10/23/2021 10/23/2021 10/24/2021 12:21 AM STRIP PICKER COVID-19 Rule Out 01/15/2022 01/15/2022 01/20/2022 10:53 AM STRIP PICKER COVID-19 Rule Out 04/21/2022 04/21/2022 04/21/2022 11:42 AM CDT COVID-19 Rule Out 04/21/2022 04/21/2022 04/26/2022 7:02 AM CDT COVID-19 Rule Out 10/06/2022 10/06/2022 10/06/2022 1:21 PM STRIP PICKER COVID-19 Rule Out 10/06/2022 10/06/2022 10/07/2022 3:34 PM STRIP PICKER COVID-19 Rule Out 09/14/2023 09/14/2023 09/14/2023 3:48 PM CDT COVID-19 Rule Out 11/02/2024 11/02/2024 11/02/2024 4:03 PM STRIP PICKER Assessment Noted Time PHQ-9 Depression Total Score: 13 020 1:12 PM CDT documented as of this encounter Care Teams Digital Media Producer Relationship Specialty Start Date End Date Daryl Metzger MD PCP - General FAMILY MEDICINE SPORTS MEDICINE 08/20/20 10/09/20 Dasha Conway FNP- [address] [place] [address] PCP - General 11/02/24 documented as of this encounter
--- OUTSIDE RECORDS SUMMARY | 2025-08-03 16:59 | XMS_ITS | Encounter Summary ---
Author Organization [facility] Address [facility]6 [place] [address] Care Team Providers Care Structural Manager Name Role Phone Dasha Conway Erlin [facility] Primary Care Provider +1- [phone] Encounter Details Date Type Department Care Team (Latest Contact Info) Description 07/25/2022 M9 Defenset Message Enc [facility] Medical Group Multispecialty Care - [place] [address] [place] [address] [address] [place] [address] Curtis Diaz MD 118[address] [facility] 157 [place], [place] [id number] Psychiatric meds Social History Tobacco Use Types [...] Sex Assigned at Female 01/08/2021 9:[address] ENGINEER Legal Sex Female 5:13 PM CDT Gender Identity Female 01/08/2021 9:[address] ENGINEER Sexual Orientation Straight 01/08/2021 9: [address] ENGINEER COVID-19 Exposure Response Date Recorded In [...] Rule Out 10/06/2022 10/06/2022 10/06/2022 1:[address] ENGINEER COVID-19 Rule Out 10/06/2022 10/06/2022 10/07/2022 3:[address] ENGINEER COVID-19 Rule Out 09/14/2023 09/14/2023 09/14/2023 3:48 PM CDT COVID-19 Rule Out 11/02/2024 11/02/2024 11/02/2024 4:[address] ENGINEER Assessment Noted Time PHQ-9 Depression Total Score: 4 05/12/20 22 3:34 PM CDT documented as of this encounter Care Teams Structural Manager Relationship Specialty Start Date End Date Dasha Conway, SHOT TUBE MACHINE TENDER- [address] [place] [address] PCP - General 11/02/24 documented as of this encounter
--- OUTSIDE RECORDS SUMMARY | 2025-08-03 16:59 | XMS_ITS | Encounter Summary ---
Author Organization [facility] Address [facility]6 [place] [address] Care Team Providers Care Grape Grower Name Role Phone Dasha Conway Erlin [facility] Primary Care Provider +1- [phone] Encounter Details Date Type Department Care Team (Late st Contact Info) Description 05/17/2022 Socset.hart Message Enc [facility] Medical Group Multispecialty Care - [place] [address] [place] [address] [address] [place], [place] [phone] [place] [address] [place] [address] 157 [place] [address] Today's visit Social History Tobacco Use Types [...] Sex Assigned at Female 01/08/2021 9:43 AM CONTROL SYSTEMS ENG Legal Sex Female 5:13 PM CDT Gender Identity Female 01/08/2021 9:43 AM CONTROL SYSTEMS ENG Sexual Orientation Straight 01/08/2021 9: 43 AM CONTROL SYSTEMS ENG COVID-19 Exposure Response Date Recorded In the last 10 days, have asif rodriguez been in contact with someone who was confirmed or suspected to have Coronavirus/COVID-19? No / Unsure 05/17/2022 8:13 AM CDT documented as of this encounter Functional Status * RETIRED Are you deaf or do you have serious difficulty hearing Answer Date of Assessment Author Status No 01/29/2022 10:15 PM CONTROL SYSTEMS ENG Acti ve * RETIRED Are you blind or do you have serious difficulty seeing, even when wearing glasses? Answer Date of Assessment Author Status No 01/29/2022 10:15 PM CONTROL SYSTEMS ENG Acti ve * Do you have serious [...] AM CDT Curtis Diaz MD Active * [place] Suicide Severity Rating Scale (Screener/Recent Self-Report) Question [...] Rule Out 10/06/2022 10/06/2022 10/06/2022 1:21 PM CONTROL SYSTEMS ENG COVID-19 Rule Out 10/06/2022 10/06/2022 10/07/2022 3:34 PM CONTROL SYSTEMS ENG COVID-19 Rule Out 09/14/2023 09/14/2023 09/14/2023 3:48 PM CDT COVID-19 Rule Out 11/02/2024 11/02/2024 11/02/2024 4:03 PM CONTROL SYSTEMS ENG Assessment Noted Time PHQ-9 Depression Total Score: 4 05/12/20 3:34 PM CDT documented as of this encounter Care Teams Grape Grower Relationship Specialty Start Date End Date Dasha Conway, PERIANESTHESIA MANAGER-BC [address] [place] [address] PCP - General 11/02/24 documented as of this encounter
--- OUTSIDE RECORDS SUMMARY | 2025-08-03 16:59 | XMS_ITS | Encounter Summary ---
Author Organization [facility] Address [facility]6 [place] [address] Care Team Providers Care Long Haul Truck Driver Name Role Phone Dasha Conway Erlin [facility] Primary Care Provider +1- [phone] Encounter Details Date Type Department Care Team (Late st Contact Info) Description 10/20/2022 Fibrenetixt Message Enc [facility] Medical Group Multispecialty Care - [place] [address] [address] [place], [place] [phone] [place] [address] [place] [address] 157 [place], [place] [phone] Mammogram Social History Tobacco Use Types Packs/Day [...] Sex Assigned at Female 01/08/2021 9:43 AM EKG MANAGER Legal Sex Female 5:13 PM CDT Gender Identity Female 01/08/2021 9:43 AM EKG MANAGER Sexual Orientation Straight 01/08/2021 9: 43 AM EKG MANAGER COVID-19 Exposure Response Date Recorded In the last 10 days, have asif rodriguez been in contact with someone who was confirmed or suspected to have Coronavirus/COVID-19? No / Unsure 10/06/2022 12:33 PM EKG MANAGER documented as of this encounter Functional [...] Rule Out 11/02/2024 11/02/2024 11/02/2024 4:03 PM EKG MANAGER Assessment Noted Time PHQ-9 Depression Total Score: 4 05/12/20 22 3:34 PM CDT documented as of this encounter Care Teams Long Haul Truck Driver Relationship Specialty Start Date End Date Dasha Conway FNP-STEPH [address] [place] [address] PCP - General 11/02/24 documented as of this encounter
--- OUTSIDE RECORDS SUMMARY | 2025-08-03 16:59 | XMS_ITS | Encounter Summary ---
Author Organization [facility] Address [facility] [place] [address] Care Team Providers Care Surgical Physician Assistant Name Role Phone Dasha Conway Erlin [facility] Primary Care Provider +1- [phone] Encounter Details Date Type Department Care Team (Late st Contact Info) Description 12/07/2022 [employer] Message Enc [facility] Medical Group Multispecialty Care - [place] [address] [place] [address] [address] [place], [place] [address] [place] [address] [place] [address] 157 [place], [place] [phone] Surgery date Social History Tobacco Use Types [...] Sex Assigned at Female 01/08/2021 9:43 AM FIRST AID INSTRUCTOR Legal Sex Female 5:13 PM CDT Gender Identity Female 01/08/2021 9:43 AM FIRST AID INSTRUCTOR Sexual Orientation Straight 01/08/2021 9: 43 AM FIRST AID INSTRUCTOR COVID-19 Exposure Response Date Recorded In the last 10 days, have asif rodriguez been in contact with someone who was confirmed or suspected to have Coronavirus/COVID-19? No / Unsure 12/03/2022 10:51 AM FIRST AID INSTRUCTOR documented as of this encounter Functional Status [...] Rule Out 11/02/2024 11/02/2024 11/02/2024 4:03 PM FIRST AID INSTRUCTOR Assessment Noted Time PHQ-9 Depression Total Score: 11 1216/2 022 12:00 PM FIRST AID INSTRUCTOR documented as of this encounter Care Teams Surgical Physician Assistant Relationship Specialty Start Date End Date Dasha Conway FNP-STEPH [address] [place], [place] [address] PCP - General 11/02/24 documented as of this encounter
--- OUTSIDE RECORDS SUMMARY | 2025-08-03 16:59 | XMS_ITS | Encounter Summary ---
Author Organization [facility] Address [facility]6 [place] [address] Care Team Providers Care Photographic Laboratory Supervisor Name Role Phone Dasha Conway [facility] Primary Care Provider +1- [phone] Encounter Details Date Type Department Care Team (Late st Contact Info) Description 01/27/2022 [employer] Message Enc [facility] Medical Group Multispecialty Care - [place] [address] [address] [place], [place] [phone] Curtis Diaz MD [address] [place] [address] 157 [place], [place] [phone] Vertigo Social History Tobacco Use Types Packs/Day [...] Assigned at Female 01/08/2021 9:43 AM ELECTRONICS TECHNICIAN Legal Sex Female 5:13 PM CDT Gender Identity Female 01/08/2021 9:43 AM ELECTRONICS TECHNICIAN Sexual Orientation Straight 01/08/2021 9: 43 AM ELECTRONICS TECHNICIAN COVID-19 Exposure Response Date Recorded In the last 10 days, have yo u been in contact with someone who was confirmed or suspected to have Coronavirus/COVID-19? No / Unsure 01/30/2022 4:08 PM ELECTRONICS TECHNICIAN documented as of this encounter Functional Status * Calculated C-SSRS Risk Score (Lifetime/Recent) Answer Date of Assessment Author Status No Risk Indicated 01/29/2022 9:14 AM Audra Mccain RN Active * [place] Suicide Severity Rating Scale (Screener/Recent Self-Report) Question [...] Out 10/06/2022 10/06/2022 10/06/2022 1:21 PM ELECTRONICS TECHNICIAN COVID-19 Rule Out 10/06/2022 10/06/2022 10/07/2022 3:34 PM ELECTRONICS TECHNICIAN COVID-19 Rule Out 09/14/2023 09/14/2023 09/14/2023 3:48 PM CDT COVID-19 Rule Out 11/02/2024 11/02/2024 11/02/2024 4:03 PM ELECTRONICS TECHNICIAN Assessment Noted Time PHQ-9 Depression Total Score: 15 12/14/2 021 11:10 AM ELECTRONICS TECHNICIAN documented as of this encounter Care Teams Photographic Laboratory Supervisor Relationship Specialty Start Date End Date Dasha Conway, DIRECTOR PATIENT ACCOUNTING- [address] [place] [address] PCP - General 11/02/24 documented as of this encounter
--- OUTSIDE RECORDS SUMMARY | 2025-08-03 16:59 | XMS_ITS | Encounter Summary ---
Author Organization [facility] Address [facility]6 [place] [address] Care Team Providers Care Roving Changer Name Role Phone Daryl Metzger MD Primary Care Provider Dasha Vicente [facility] Primary Care Provider +1- [phone] Encounter Details Date Type Department Care Team (Late st Contact Info) Description 09/01/2020 Prep for Procedure [facility] [place], [place] [address] Donovan Parks MD 3 [facility] Reggie [address] [place] [phone] Social History Tobacco Use Types Packs/Day Years Used Date Smoking Tobacco: Every Day Cigarettes Smokeless Tobacco: Never Alcohol Use Standard Drinks/Week Comments Not Currently 0 (1 standard drink = 0.6 oz pur e alcohol) PHQ-2 Answer Date Recorded PHQ-2 Score 3 06/23/2020 Comments No Sex and Gender Information Value Date Recorded Sex Assigned at Female 01/08/2021 9:43 AM RETREAD OPERATOR Legal Sex Female 5:13 PM CDT Gender Identity Female 01/08/2021 9:43 AM RETREAD OPERATOR Sexual Orientation Straight 01/08/2021 9: 43 AM RETREAD OPERATOR COVID-19 Exposure Response Date Recorded In [...] DETECTED NOT DETECTED 09/02/2020 10:05 PM CDT [facility] Comment: A Not Detected (negative) test result [...] providers and patients using the following websites: https://www.[employer] Systems/home/Covid-19/HCP/NAAT/fact-sheet2 https://www.[employer]/home/Covid-19/Patients/NAAT/ fact-sheet2 This test has been authorized by the FDA under an Emergency Use Authorization (EUA) for use by authorized laboratories. Due to the current public health emergency, [facility] is receiving a high volume of samples [...] about COVID-19 can be found at the [facility] website: www.[employer]/Covid19. Test performed at [facility] [address] [place] [address] Director: CURRY BAEZA DO,MPH FIRST TEST UNKNOWN 09/01/2020 3:38 PM CDT [facility] EMPLOYED IN HEALTHCARE UNKNOWN 09/01/2020 3:38 PM CDT [facility] SYMPTOMATIC DEFINED BY CDC UNKNOWN 09/01/2020 3:38 PM CDT [facility] DATE OF SYMPTOM ONSET UNKNOWN 09/01/2020 3:44 PM CDT [facility] HOSPITALIZATION STATUS NO 09/01/2020 3:38 PM CDT [facility] PATIENT IN ICU NO 09/01/2020 3:38 PM CDT [facility] RESIDENT OF [facility] UNKNOWN 09/01/2020 3:38 PM CDT [facility] UNKNOWN 09/01/2020 3:38 PM CDT [facility] PATIENT'S RACE WHITE OR 09/01/2020 3:38 PM CDT [facility] ETHNICITY NONHISPANIC 09/01/2020 3:38 PM CDT [facility] SOURCE (QST) NASOPHARYNGEAL SWAB 09/01/2020 3:38 PM CDT [facility] NASOPHARYNGEAL SWAB / Unknown 09/01/2020 12:23 PM CDT Donovan Parks MD MICROBIOLOGY - GENERAL ORDERABLE S Final Result [facility] 3 [place] [address], [facility] [address] [place] [address], documented in this encounter Visit Diagnoses Diagnosis Dysphagia- Primary Dysphagia, unspecified documented in this encounter Additional Health Concerns Infection Onset Date Last Indicated Resolved Time 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 06/30/2017 COVID-19 Rule Out 09/01/2020 09/01/2020 09/02/2020 10:06 PM CDT COVID-19 Rule Out 12/16/2020 12/16/2020 12/17/2020 4:31 PM RETREAD OPERATOR COVID-19 Rule Out 06/05/2021 06/05/2021 06/05/2021 12:31 PM CDT COVID-19 Rule Out 10/23/2021 10/23/2021 10/23/2021 9:25 AM RETREAD OPERATOR COVID-19 Rule Out 10/23/2021 10/23/2021 10/24/2021 12:21 AM RETREAD OPERATOR COVID-19 Rule Out 01/15/2022 01/15/2022 01/20/2022 10:53 AM RETREAD OPERATOR COVID-19 Rule Out 04/21/2022 04/21/2022 04/21/2022 11:42 AM CDT COVID-19 Rule Out 04/21/2022 04/21/2022 04/26/2022 7:02 AM CDT COVID-19 Rule Out 10/06/2022 10/06/2022 10/06/2022 1:21 PM RETREAD OPERATOR COVID-19 Rule Out 10/06/2022 10/06/2022 10/07/2022 3:34 PM RETREAD OPERATOR COVID-19 Rule Out 09/14/2023 09/14/2023 09/14/2023 3:48 PM CDT COVID-19 Rule Out 11/02/2024 11/02/2024 11/02/2024 4:03 PM RETREAD OPERATOR Assessment Noted Time PHQ-9 Depression Total Score: 020 1:12 PM CDT documented as of this encounter Care Teams Roving Changer Relationship Specialty Start Date End Date Daryl Metzger MD PCP - General FAMILY MEDICINE SPORTS MEDICINE 08/20/20 10/09/20 Dasha Conway FNP- [address] [place] [address] PCP - General 11/02/24 documented as of this encounter
--- OUTSIDE RECORDS SUMMARY | 2025-08-03 16:59 | XMS_ITS | Encounter Summary ---
Author Organization [facility] Address [facility]6 [place] [address] Care Team Providers Care Stabber Name Role Phone Dasha Conway Erlin [facility] Primary Care Provider +1- [phone] Encounter Details Date Type Department Care Team (Latest Contact Info) Description 06/22/2022 Axilica Message Enc [facility] Medical Group Multispecialty Care - [place] [address] [place] [address] [address] [place] [address] Curtis Diaz MD 1188 [facility] 157 [place], [place] [phone] Keep appointment? Social History Tobacco Use Types [...] Sex Assigned at Female 01/08/2021 9:43 AM NEWS CLIPPING CUTTER Legal Sex Female 5:13 PM CDT Gender Identity Female 01/08/2021 9:43 AM NEWS CLIPPING CUTTER Sexual Orientation Straight 01/08/2021 9: 43 AM NEWS CLIPPING CUTTER COVID-19 Exposure Response Date Recorded In the [...] Rule Out 10/06/2022 10/06/2022 10/06/2022 1:21 PM NEWS CLIPPING CUTTER COVID-19 Rule Out 10/06/2022 10/06/2022 10/07/2022 3:34 PM NEWS CLIPPING CUTTER COVID-19 Rule Out 09/14/2023 09/14/2023 09/14/2023 3:48 PM CDT COVID-19 Rule Out 11/02/2024 11/02/2024 11/02/2024 4:03 PM NEWS CLIPPING CUTTER Assessment Noted Time PHQ-9 Depression Total Score: 4 05/12/20 22 3:34 PM CDT documented as of this encounter Care Teams Stabber Relationship Specialty Start Date End Date Dasha Conway, IMMUNOLOGY TEACHER- [address] [place] [address] PCP - General 11/02/24 documented as of this encounter
--- OUTSIDE RECORDS SUMMARY | 2025-08-03 16:59 | XMS_ITS | Encounter Summary ---
Author Organization [facility] Address [facility] [place] [address] Care Team Providers Care Support Manager Name Role Phone Daryl Metzger MD Primary Care Provider Dasha Vicente [facility] Primary Care Provider +1- [phone] Encounter Details Date Type Department Care Team (Late st Contact Info) Description 09/03/2020 [facility] at [address] [address] Hussain Barros [place] Social History Tobacco Use Types Packs/Day Years Used Date Smoking Tobacco: Every Day Cigarettes Smokeless Tobacco: Never Alcohol Use Standard Drinks/Week Comments Not Currently 0 (1 standard drink = 0.6 oz pur e alcohol) PHQ-2 Answer Date Recorded PHQ-2 Score 3 06/23/2020 Comments No Sex and Gender Information Value Date Recorded Sex Assigned at Female 01/08/2021 9:43 AM CROSSING FLAGMAN Legal Sex Female 5:13 PM CDT Gender Identity Female 01/08/2021 9:43 AM CROSSING FLAGMAN Sexual Orientation Straight 01/08/2021 9: 43 AM CROSSING FLAGMAN COVID-19 Exposure Response Date Recorded In the [...] Rule Out 12/16/2020 12/16/2020 12/17/2020 4:31 PM CROSSING FLAGMAN COVID-19 Rule Out 06/05/2021 06/05/2021 06/05/2021 12:31 PM CDT COVID-19 Rule Out 10/23/2021 10/23/2021 10/23/2021 9:25 AM CROSSING FLAGMAN COVID-19 Rule Out 10/23/2021 10/23/2021 10/24/2021 12:21 AM CROSSING FLAGMAN COVID-19 Rule Out 01/15/2022 01/15/2022 01/20/2022 10:53 AM CROSSING FLAGMAN COVID-19 Rule Out 04/21/2022 04/21/2022 04/21/2022 11:42 AM CDT COVID-19 Rule Out 04/21/2022 04/21/2022 04/26/2022 7:02 AM CDT COVID-19 Rule Out 10/06/2022 10/06/2022 10/06/2022 1:21 PM CROSSING FLAGMAN COVID-19 Rule Out 10/06/2022 10/06/2022 10/07/2022 3:34 PM CROSSING FLAGMAN COVID-19 Rule Out 09/14/2023 09/14/2023 09/14/2023 3:48 PM CDT COVID-19 Rule Out 11/02/2024 11/02/2024 11/02/2024 4:03 PM CROSSING FLAGMAN Assessment Noted Time PHQ-9 Depression Total Score: 13 020 1:12 PM CDT documented as of this encounter Care Teams Support Manager Relationship Specialty Start Date End Date Daryl Metzger MD PCP - General FAMILY MEDICINE SPORTS MEDICINE 08/20/20 10/09/20 Dasha Conway, PRINTING PLATE SETTER- [address] [place] [address] PCP - General 11/02/24 documented as of this encounter
--- OUTSIDE RECORDS SUMMARY | 2025-08-03 16:59 | XMS_ITS | Encounter Summary ---
Author Organization [facility] Address [facility] [place] [address] Care Team Providers Care Cloth Printing Inspector Name Role Phone Dasha Conway [facility] Primary Care Provider +1- [phone] Encounter Details Date Type Department Care Team (Late st Contact Info) Description 01/26/2022 [employer] Message Enc [facility] Medical Group Multispecialty Care - [place] [address] [address] [place], [place] [phone] Curtis Diaz MD [address] [place] [address] 157 [place] [address] Urethral sling Social History Tobacco Use Types [...] Sex Assigned at Female 01/08/2021 9:43 AM DENTISTRY TEACHER Legal Sex Female 5:13 PM CDT Gender Identity Female 01/08/2021 9:43 AM DENTISTRY TEACHER Sexual Orientation Straight 01/08/2021 9: 43 AM DENTISTRY TEACHER COVID-19 Exposure Response Date Recorded In the last 10 days, have yo u been in contact with someone who was confirmed or suspected to have Coronavirus/COVID-19? No / Unsure 01/29/2022 9:08 AM DENTISTRY TEACHER documented as of this encounter Functional Status * Calculated C-SSRS Risk Score (Lifetime/Recent) Answer Date of Assessment Author Status No Risk Indicated 01/29/2022 9:14 AM Audra Mccain RN Active * [place] Suicide Severity Rating Scale (Screener/Recent Self-Report) Question [...] Rule Out 10/06/2022 10/06/2022 10/06/2022 1:21 PM DENTISTRY TEACHER COVID-19 Rule Out 10/06/2022 10/06/2022 10/07/2022 3:34 PM DENTISTRY TEACHER COVID-19 Rule Out 09/14/2023 09/14/2023 09/14/2023 3:48 PM CDT COVID-19 Rule Out 11/02/2024 11/02/2024 11/02/2024 4:03 PM DENTISTRY TEACHER Assessment Noted Time PHQ-9 Depression Total Score: 15 021 11:10 AM DENTISTRY TEACHER documented as of this encounter Care Teams Cloth Printing Inspector Relationship Specialty Start Date End Date Dasha Conway, STRAIGHT EDGER- [address] [place] [address] PCP - General 11/02/24 documented as of this encounter
--- OUTSIDE RECORDS SUMMARY | 2025-08-03 16:59 | XMS_ITS | Encounter Summary ---
Author Organization [facility] Address [facility] [place] [address] Care Team Providers Care Roller Skates Assembler Name Role Phone Dasha Conway Erlin [facility] Primary Care Provider +1- [phone] Encounter Details Date Type Department Care Team (Late st Contact Info) Description 07/21/2022 [employer] Message Enc [facility] Medical Group Multispecialty Care - [place] [address] [address] [place], [place] [phone] [place] [address] [place] [address] 157 [place] [address] Covid Social History Tobacco Use Types Packs/Day [...] Sex Assigned at Female 01/08/2021 9:43 AM INDEPENDENT FREIGHT AGENT Legal Sex Female 5:13 PM CDT Gender Identity Female 01/08/2021 9:43 AM INDEPENDENT FREIGHT AGENT Sexual Orientation Straight 01/08/2021 9: 43 AM INDEPENDENT FREIGHT AGENT COVID-19 Exposure Response Date Recorded In the [...] Rule Out 10/06/2022 10/06/2022 10/06/2022 1:21 PM INDEPENDENT FREIGHT AGENT COVID-19 Rule Out 10/06/2022 10/06/2022 10/07/2022 3:34 PM INDEPENDENT FREIGHT AGENT COVID-19 Rule Out 09/14/2023 09/14/2023 09/14/2023 3:48 PM CDT COVID-19 Rule Out 11/02/2024 11/02/2024 11/02/2024 4:03 PM INDEPENDENT FREIGHT AGENT Assessment Noted Time PHQ-9 Depression Total Score: 4 05/12/20 22 3:34 PM CDT documented as of this encounter Care Teams Roller Skates Assembler Relationship Specialty Start Date End Date Dasha Conway, DIRECTOR CORPORATE SALES- [address] [place] [address] PCP - General 11/02/24 documented as of this encounter
--- OUTSIDE RECORDS SUMMARY | 2025-08-03 16:59 | XMS_ITS | Encounter Summary ---
Author Organization [facility] Address [facility] [place] [address] Care Team Providers Care News Reel Cameraman Name Role Phone Dasha Conway [facility] Primary Care Provider +1- [phone] Encounter Details Date Type Department Care Team (Late st Contact Info) Description 12/30/2021 ActionIQhart Message Enc [facility] Medical Group Multispecialty Care - [place] [address] [address] [place], [place] [id number] Curtis Diaz MD [address] [place] [address] [address] [place], [place] [id number] Test results Social History Tobacco Use Types [...] Sex Assigned at Female 01/08/2021 9:43 AM DRY HOUSE TENDER Legal Sex Female 5:13 PM CDT Gender Identity Female 01/08/2021 9:43 AM DRY HOUSE TENDER Sexual Orientation Straight 01/08/2021 9: 43 AM DRY HOUSE TENDER COVID-19 Exposure Response Date Recorded In the last 10 days, have yo u been in contact with someone who was confirmed or suspected to have Coronavirus/COVID-19? No / Unsure 12/29/2021 10:09 PM DRY HOUSE TENDER documented as of this encounter Plan of Treatment Not on file documented as of this encounter Visit Diagnoses Not on filedocumented in this encounter Additional Health Concerns Infection Onset Date Last Indicated Resolved Time 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 06/30/2017 COVID-19 Rule Out 01/15/2022 01/15/2022 01/20/2022 10:53 AM DRY HOUSE TENDER COVID-19 Rule Out 04/21/2022 04/21/2022 04/21/2022 11:42 AM CDT COVID-19 Rule Out 04/21/2022 04/21/2022 04/26/2022 7:02 AM CDT COVID-19 Rule Out 10/06/2022 10/06/2022 10/06/2022 1:21 PM DRY HOUSE TENDER COVID-19 Rule Out 10/06/2022 10/06/2022 10/07/2022 3:34 PM DRY HOUSE TENDER COVID-19 Rule Out 09/14/2023 09/14/2023 09/14/2023 3:48 PM CDT COVID-19 Rule Out 11/02/2024 11/02/2024 11/02/2024 4:03 PM DRY HOUSE TENDER Assessment Noted Time PHQ-9 Depression Total Score: 15 021 11:10 AM DRY HOUSE TENDER documented as of this encounter Care Teams News Reel Cameraman Relationship Specialty Start Date End Date Dasha Conway FNP-BC [address] [place] [address] PCP - General 11/02/24 documented as of this encounter
--- OUTSIDE RECORDS SUMMARY | 2025-08-03 16:59 | XMS_ITS | Encounter Summary ---
Author Organization [facility] Address [facility] [place] [address] Care Team Providers Care Brokerage Office Manager Name Role Phone Dasha Conway Erlin [facility] Primary Care Provider +1- [phone] Encounter Details Date Type Department Care Team (Late st Contact Info) Description 11/23/2022 Bee On The Gohart Message Enc [facility] Medical Group Multispecialty Care - [place] [address] [place] [address] [address] [place] [address] [place] [address] [place] [address] 157 [place] [address] Palmar fascitis Social History Tobacco Use Types [...] Assigned at Female 01/08/2021 9:43 AM MANAGER FIELD Legal Sex Female 5:13 PM CDT Gender Identity Female 01/08/2021 9:43 AM MANAGER FIELD Sexual Orientation Straight 01/08/2021 9: 43 AM MANAGER FIELD COVID-19 Exposure Response Date Recorded In the last 10 days, have asif rodriguez been in contact with someone who was confirmed or suspected to have Coronavirus/COVID-19? No / Unsure 11/05/2022 9:02 AM MANAGER FIELD documented as of this encounter Functional Status [...] Out 11/02/2024 11/02/2024 11/02/2024 4:03 PM MANAGER FIELD Assessment Noted Time PHQ-9 Depression Total Score: 11 12/2 022 12:00 PM MANAGER FIELD documented as of this encounter Care Teams Brokerage Office Manager Relationship Specialty Start Date End Date Dasha Conway FNP-STEPH [address] [place], [place] [phone] PCP - General 11/02/24 documented as of this encounter
--- OUTSIDE RECORDS SUMMARY | 2025-08-03 16:59 | XMS_ITS | Encounter Summary ---
Author Organization [facility] Address [facility] [place] [address] Care Team Providers Care Windows Server Specialist Name Role Phone Dasha Conway Erlin [facility] Primary Care Provider +1- [phone] Encounter Details Date Type Department Care Team (Late st Contact Info) Description 06/23/2022 HealthEdget Message Enc [facility] Medical Group Multispecialty Care - [place] [address] [place] [address] [address] [place], [place] [phone] [place] [address] [place] [address] 157 [place], [place] [id number] Liver pain? Social History Tobacco Use Types [...] Sex Assigned at Female 01/08/2021 9:43 AM SHAREHOLDER Legal Sex Female 5:13 PM CDT Gender Identity Female 01/08/2021 9:43 AM SHAREHOLDER Sexual Orientation Straight 01/08/2021 9: 43 AM SHAREHOLDER COVID-19 Exposure Response Date Recorded In the [...] Rule Out 10/06/2022 10/06/2022 10/06/2022 1:21 PM SHAREHOLDER COVID-19 Rule Out 10/06/2022 10/06/2022 10/07/2022 3:34 PM SHAREHOLDER COVID-19 Rule Out 09/14/2023 09/14/2023 09/14/2023 3:48 PM CDT COVID-19 Rule Out 11/02/2024 11/02/2024 11/02/2024 4:03 PM SHAREHOLDER Assessment Noted Time PHQ-9 Depression Total Score: 4 05/12/20 22 3:34 PM CDT documented as of this encounter Care Teams Windows Server Specialist Relationship Specialty Start Date End Date Dasha Conway FNP- [address] [place] [address] PCP - General 11/02/24 documented as of this encounter
--- OUTSIDE RECORDS SUMMARY | 2025-08-03 17:00 | XMS_ITS | Encounter Summary ---
Author Organization [facility] Address [facility] [place] [address] Care Team Providers Care Retail Business Manager Name Role Phone Dasha Conway Erlin [facility] Primary Care Provider +1- [phone] Encounter Details Date Type Department Care Team (Late st Contact Info) Description 04/04/2023 Uversityt Message Enc [facility] Medical Group Multispecialty Care - [place] [address] [place] [address] [address] [place] [address] [place] [address] [place] [address] 157 [place] [address] Medication Social History Tobacco Use Types Packs/Day [...] Sex Assigned at Female 01/08/2021 9:43 AM BUS OR TRUCK GARAGE MECHANIC Legal Sex Female 5:13 PM CDT Gender Identity Female 01/08/2021 9:43 AM BUS OR TRUCK GARAGE MECHANIC Sexual Orientation Straight 01/08/2021 9: 43 AM BUS OR TRUCK GARAGE MECHANIC COVID-19 Exposure Response Date Recorded In [...] Rule Out 11/02/2024 11/02/2024 11/02/2024 4:03 PM BUS OR TRUCK GARAGE MECHANIC Assessment Noted Time PHQ-9 Depression Total Score: 11 12/ 022 12:00 PM BUS OR TRUCK GARAGE MECHANIC documented as of this encounter Care Teams Retail Business Manager Relationship Specialty Start Date End Date Dasha Conway, SUPERVISOR BOILER REPAIR- [address] [place] [address] PCP - General 11/02/24 documented as of this encounter
--- OUTSIDE RECORDS SUMMARY | 2025-08-03 17:00 | XMS_ITS | Encounter Summary ---
Author Organization [facility] Address [facility] [place] [address] Care Team Providers Care Associate Brand Manager Name Role Phone Dasha Conway Erlin [facility] Primary Care Provider +1- [phone] Encounter Details Date Type Department Care Team (Late st Contact Info) Description 02/08/2024 No Chainst Message Enc [facility] Medical Group Multispecialty Care - [place] [address] [address] [place] [address] Curtis Diaz MD [address] [place] [address] 157 [place] [address] Fluconazole Social History Tobacco Use Types Packs/Day [...] Sex Assigned at Female 01/08/2021 9:43 AM SCALE SHOOTER Legal Sex Female 5:13 PM CDT Gender Identity Female 01/08/2021 9:43 AM SCALE SHOOTER Sexual Orientation Straight 01/08/2021 9: 43 AM SCALE SHOOTER documented as of this encounter Functional Status [...] Rule Out 11/02/2024 11/02/2024 11/02/2024 4:03 PM SCALE SHOOTER Assessment Noted Time PHQ-9 Depression Total Score: 7 11/16/20 23 9:57 AM SCALE SHOOTER documented as of this encounter Care Teams Associate Brand Manager Relationship Specialty Start Date End Date Dasha Conway, DATA DEVELOPER- [address] [place] [address] PCP - General 11/02/24 documented as of this encounter
--- OUTSIDE RECORDS SUMMARY | 2025-08-03 17:00 | XMS_ITS | Encounter Summary ---
Author Organization [facility] Address [facility] [place] [address] Care Team Providers Care Telephone Station Installer Name Role Phone Dasha Conway Erlin [facility] Primary Care Provider +1- [phone] Encounter Details Date Type Department Care Team (Latest Contact Info) Description 11/23/2020 The Beer Cafét Message Enc [facility] Medical Group Multispecialty Care - [place] [address] [place] [address] [address] [place] [address] Curtis Diaz MD [address] [facility] [address] [place], [place] [phone] RE: Follow Up/Update Social History Tobacco Use [...] Sex Assigned at Female 01/08/2021 9:43 AM SAWYER HELPER Legal Sex Female 5:13 PM CDT Gender Identity Female 01/08/2021 9:43 AM SAWYER HELPER Sexual Orientation Straight 01/08/2021 9: 43 AM SAWYER HELPER COVID-19 Exposure Response Date Recorded In the last month, have you been in contact with someone who was confirmed or suspected to have Coronavirus / COVID-19? No / Unsure 11/24/2020 8:33 AM SAWYER HELPER documented as of this encounter Plan of Treatment Not on file documented as of this encounter Visit Diagnoses Not on filedocumented in this encounter Additional Health Concerns Infection Onset Date Last Indicated Resolved Time 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 06/30/2017 COVID-19 Rule Out 12/16/2020 12/16/2020 12/17/2020 4:31 PM SAWYER HELPER COVID-19 Rule Out 06/05/2021 06/05/2021 06/05/2021 12:31 PM CDT COVID-19 Rule Out 10/23/2021 10/23/2021 10/23/2021 9:25 AM SAWYER HELPER COVID-19 Rule Out 10/23/2021 10/23/2021 10/24/2021 12:21 AM SAWYER HELPER COVID-19 Rule Out 01/15/2022 01/15/2022 01/20/2022 10:53 AM SAWYER HELPER COVID-19 Rule Out 04/21/2022 04/21/2022 04/21/2022 11:42 AM CDT COVID-19 Rule Out 04/21/2022 04/21/2022 04/26/2022 7:02 AM CDT COVID-19 Rule Out 10/06/2022 10/06/2022 10/06/2022 1:21 PM SAWYER HELPER COVID-19 Rule Out 10/06/2022 10/06/2022 10/07/2022 3:34 PM SAWYER HELPER COVID-19 Rule Out 09/14/2023 09/14/2023 09/14/2023 3:48 PM CDT COVID-19 Rule Out 11/02/2024 11/02/2024 11/02/2024 4:03 PM SAWYER HELPER Assessment Noted Time PHQ-9 Depression Total Score: 13 020 1:12 PM CDT documented as of this encounter Care Teams Telephone Station Installer Relationship Specialty Start Date End Date Dasha Conway FNP- [address] [place] [address] PCP - General 11/02/24 documented as of this encounter
--- OUTSIDE RECORDS SUMMARY | 2025-08-03 17:00 | XMS_ITS | Encounter Summary ---
Author Organization [facility] Address Replaced by [facility] [place] [address] Care Team Providers Care Automotive Teacher Name Role Phone Dasha Conway Erlin [facility] Primary Care Provider +1- [phone] Encounter Details Date Type Department Care Team (Late st Contact Info) Description 02/03/2023 HyperStealth Biotechnologyt Message Enc [facility] Medical Group Multispecialty Care - [place] [address] [place] [address] [address] [place] [address] [place] [address] [place] [address] [address] [place] [address] Kidneys Social History Tobacco Use Types Packs/Day [...] Sex Assigned at Female 01/08/2021 9:43 AM SANDING SUPERVISOR Legal Sex Female 5:13 PM CDT Gender Identity Female 01/08/2021 9:43 AM SANDING SUPERVISOR Sexual Orientation Straight 01/08/2021 9: 43 AM SANDING SUPERVISOR COVID-19 Exposure Response Date Recorded In [...] Rule Out 11/02/2024 11/02/2024 11/02/2024 4:03 PM SANDING SUPERVISOR Assessment Noted Time PHQ-9 Depression Total Score: 11 12/2 022 12:00 PM SANDING SUPERVISOR documented as of this encounter Care Teams Automotive Teacher Relationship Specialty Start Date End Date Dasha Conway FNP- [address] [place] [phone] PCP - General 11/02/24 documented as of this encounter
--- OUTSIDE RECORDS SUMMARY | 2025-08-03 17:00 | XMS_ITS | Encounter Summary ---
Author Organization [facility] Address [facility] [place] [address] Care Team Providers Care Assistant Counsel Name Role Phone Dasha Conway Erlin [facility] Primary Care Provider +1- [phone] Encounter Details Date Type Department Care Team (Late st Contact Info) Description 09/08/2023 amiando Message Enc [facility] Medical Group Multispecialty Care - [place] [address] [address] [place] [address] Curtis Diaz MD [address] [place] [address] 157 [place] [address] Oral thrush Social History Tobacco Use Types [...] Assigned at Female 01/08/2021 9:43 AM SUPERVISOR PLEATING Legal Sex Female 5:13 PM CDT Gender Identity Female 01/08/2021 9:43 AM SUPERVISOR PLEATING Sexual Orientation Straight 01/08/2021 9: 43 AM SUPERVISOR PLEATING documented as of this encounter Functional Status [...] Out 11/02/2024 11/02/2024 11/02/2024 4:03 PM SUPERVISOR PLEATING Assessment Noted Time PHQ-9 Depression Total Score: 11 11/05/ 022 12:00 PM SUPERVISOR PLEATING documented as of this encounter Care Teams Assistant Counsel Relationship Specialty Start Date End Date Dasha Conway, CHRISTINE- [address] [place] [address] PCP - General 11/02/24 documented as of this encounter
--- OUTSIDE RECORDS SUMMARY | 2025-08-03 17:00 | XMS_ITS | Encounter Summary ---
Author Organization [facility] Address [facility] [place] [address] Care Team Providers Care Kindergarten Tutor Name Role Phone Dasha Conway Erlin [facility] Primary Care Provider +1- [phone] Encounter Details Date Type Department Care Team (Latest Contact Info) Description 12/03/2020 CabbyGohart Message Enc [facility] Medical Group Multispecialty Care - [place] [address] [place] [address] [address] [place] [address] Curtis Diaz MD [address] [facility] 157 [place], [place] [phone] Medication Questions Social History Tobacco Use Types [...] Sex Assigned at Female 01/08/2021 9:43 AM RFP WRITER Legal Sex Female 5:13 PM CDT Gender Identity Female 01/08/2021 9:43 AM RFP WRITER Sexual Orientation Straight 01/08/2021 9: 43 AM RFP WRITER COVID-19 Exposure Response Date Recorded In the last month, have you been in contact with someone who was confirmed or suspected to have Coronavirus / COVID-19? No / Unsure 11/28/2020 3:29 PM RFP WRITER documented as of this encounter Plan of Treatment Not on file documented as of this encounter Visit Diagnoses Not on filedocumented in this encounter Additional Health Concerns Infection Onset Date Last Indicated Resolved Time 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 06/30/2017 COVID-19 Rule Out 12/16/2020 12/16/2020 12/17/2020 4:31 PM RFP WRITER COVID-19 Rule Out 06/05/2021 06/05/2021 06/05/2021 12:31 PM CDT COVID-19 Rule Out 10/23/2021 10/23/2021 10/23/2021 9:25 AM RFP WRITER COVID-19 Rule Out 10/23/2021 10/23/2021 10/24/2021 12:21 AM RFP WRITER COVID-19 Rule Out 01/15/2022 01/15/2022 01/20/2022 10:53 AM RFP WRITER COVID-19 Rule Out 04/21/2022 04/21/2022 04/21/2022 11:42 AM CDT COVID-19 Rule Out 04/21/2022 04/21/2022 04/26/2022 7:02 AM CDT COVID-19 Rule Out 10/06/2022 10/06/2022 10/06/2022 1:21 PM RFP WRITER COVID-19 Rule Out 10/06/2022 10/06/2022 10/07/2022 3:34 PM RFP WRITER COVID-19 Rule Out 09/14/2023 09/14/2023 09/14/2023 3:48 PM CDT COVID-19 Rule Out 11/02/2024 11/02/2024 11/02/2024 4:03 PM RFP WRITER Assessment Noted Time PHQ-9 Depression Total Score: 020 1:12 PM CDT documented as of this encounter Care Teams Kindergarten Tutor Relationship Specialty Start Date End Date Dasha Conway, CHRISTINE- [address] [place] [address] PCP - General 11/02/24 documented as of this encounter
--- OUTSIDE RECORDS SUMMARY | 2025-08-03 17:00 | XMS_ITS | Encounter Summary ---
Author Organization [facility] Address [facility]6 [place] [address] Care Team Providers Care Air Cargo Ground Crew Supervisor Name Role Phone Dasha Conway Erlin [facility] Primary Care Provider +1- [phone] Encounter Details Date Type Department Care Team (Late st Contact Info) Description 02/06/[address] [facility] Medical Group Multispecialty Care - [place] [address] [address] [place], [place] [id number] [place] [address] [place] [address] 157 [place] [address] Underarm rash Social History Tobacco Use Types [...] Sex Assigned at Female 01/08/2021 9:43 AM DEVELOPMENTAL BEHAVIORAL PHYSICIAN Legal Sex Female 5:13 PM CDT Gender Identity Female 01/08/2021 9:43 AM DEVELOPMENTAL BEHAVIORAL PHYSICIAN Sexual Orientation Straight 01/08/2021 9: 43 AM DEVELOPMENTAL BEHAVIORAL PHYSICIAN documented as of this encounter Functional Status [...] Rule Out 11/02/2024 11/02/2024 11/02/2024 4:03 PM DEVELOPMENTAL BEHAVIORAL PHYSICIAN Assessment Noted Time PHQ-9 Depression Total Score: 7 11/16/20 23 9:57 AM DEVELOPMENTAL BEHAVIORAL PHYSICIAN documented as of this encounter Care Teams Air Cargo Ground Crew Supervisor Relationship Specialty Start Date End Date Dasha Conway, BEEF TRIMMER- [address] [place] [address] PCP - General 11/02/24 documented as of this encounter
--- OUTSIDE RECORDS SUMMARY | 2025-08-03 17:00 | XMS_ITS | Encounter Summary ---
Author Organization [facility] Address [facility] [place] [address] Care Team Providers Care Clinical Resource Director Name Role Phone Dasha Conway Erlin [facility] Primary Care Provider +1- [phone] Encounter Details Date Type Department Care Team (Late st Contact Info) Description 05/18/2023 MyChart Message Enc [facility] Medical Group - [facility] [address] [place] [address] [place], [facility] Provider Air Quality Message Social History Tobacco [...] Sex Assigned at Female 01/08/2021 9:43 AM MATERIALS PLANNING ANALYST Legal Sex Female 5:13 PM CDT Gender Identity Female 01/08/2021 9:43 AM MATERIALS PLANNING ANALYST Sexual Orientation Straight 01/08/2021 9: 43 AM MATERIALS PLANNING ANALYST documented as of this encounter Functional Status [...] Rule Out 11/02/2024 11/02/2024 11/02/2024 4:03 PM MATERIALS PLANNING ANALYST Assessment Noted Time PHQ-9 Depression Total Score: 11 022 12:00 PM MATERIALS PLANNING ANALYST documented as of this encounter Care Teams Clinical Resource Director Relationship Specialty Start Date End Date Dasha Conway, CHRISTINE- [address] [place] [phone] PCP - General 11/02/24 documented as of this encounter
--- OUTSIDE RECORDS SUMMARY | 2025-08-03 17:00 | XMS_ITS | Encounter Summary ---
Author Organization [facility] Address [facility] [place] [address] Care Team Providers Care Nutrition Internship Name Role Phone Dasha Conway [facility] Primary Care Provider +1- [phone] Encounter Details Date Type Department Care Team (Late st Contact Info) Description 03/03/2021 Cognitive Matcht Message Enc [facility] Medical Group Multispecialty Care - [address] [place] [address] Mela Elaine, SHOP ROUTER RE: Question Social History Tobacco Use Types [...] Sex Assigned at Female 01/08/2021 9:43 AM OWNER PROFESSIONAL ENGINEER Legal Sex Female 5:13 PM CDT Gender Identity Female 01/08/2021 9:43 AM OWNER PROFESSIONAL ENGINEER Sexual Orientation Straight 01/08/2021 9: 43 AM OWNER PROFESSIONAL ENGINEER COVID-19 Exposure Response Date Recorded In [...] Rule Out 10/23/2021 10/23/2021 10/23/2021 9:25 AM OWNER PROFESSIONAL ENGINEER COVID-19 Rule Out 10/23/2021 10/23/2021 10/24/2021 12:21 AM OWNER PROFESSIONAL ENGINEER COVID-19 Rule Out 01/15/2022 01/15/2022 01/20/2022 10:53 AM OWNER PROFESSIONAL ENGINEER COVID-19 Rule Out 04/21/2022 04/21/2022 04/21/2022 11:42 AM CDT COVID-19 Rule Out 04/21/2022 04/21/2022 04/26/2022 7:02 AM CDT COVID-19 Rule Out 10/06/2022 10/06/2022 10/06/2022 1:21 PM OWNER PROFESSIONAL ENGINEER COVID-19 Rule Out 10/06/2022 10/06/2022 10/07/2022 3:34 PM OWNER PROFESSIONAL ENGINEER COVID-19 Rule Out 09/14/2023 09/14/2023 09/14/2023 3:48 PM CDT COVID-19 Rule Out 11/02/2024 11/02/2024 11/02/2024 4:03 PM OWNER PROFESSIONAL ENGINEER Assessment Noted Time PHQ-9 Depression Total Score: 020 1:12 PM CDT documented as of this encounter Care Teams Nutrition Internship Relationship Specialty Start Date End Date Dasha Conway FNP- [address] [place] [address] PCP - General 11/02/24 documented as of this encounter
--- OUTSIDE RECORDS SUMMARY | 2025-08-03 17:00 | XMS_ITS | Encounter Summary ---
Author Organization [facility] Address [facility] [place] [address] Care Team Providers Care Cardiac Nurse Specialist Name Role Phone Dasha Conway [facility] Primary Care Provider +1- [phone] Encounter Details Date Type Department Care Team (Late st Contact Info) Description 06/14/2023 [employer] Message Enc [facility] Medical Group Multispecialty Care - [place] [address] [address] [place] [address] Curtis Diaz MD [address] [place] [address] 157 [place] [address] GI cocktail Social History Tobacco Use Types [...] Sex Assigned at Female 01/08/2021 9:43 AM LITHOGRAPHIC STRIPPER Legal Sex Female 5:13 PM CDT Gender Identity Female 01/08/2021 9:43 AM LITHOGRAPHIC STRIPPER Sexual Orientation Straight 01/08/2021 9: 43 AM LITHOGRAPHIC STRIPPER documented as of this encounter Functional Status [...] Rule Out 11/02/2024 11/02/2024 11/02/2024 4:03 PM LITHOGRAPHIC STRIPPER Assessment Noted Time PHQ-9 Depression Total Score: 11 11/05/2 022 12:00 PM LITHOGRAPHIC STRIPPER documented as of this encounter Care Teams Cardiac Nurse Specialist Relationship Specialty Start Date End Date Dasha Conway, DRAMA CRITIC- [address] [place] [address] PCP - General 11/02/24 documented as of this encounter
--- OUTSIDE RECORDS SUMMARY | 2025-08-03 17:00 | XMS_ITS | Encounter Summary ---
Author Organization [facility] Address [facility] [place] [address] Care Team Providers Care Poultry Tender Name Role Phone Dasha Conway Erlin [facility] Primary Care Provider +1- [phone] Encounter Details Date Type Department Care Team (Late st Contact Info) Description 10/23/2020 [email or web address] Message Enc [facility] Medical Group Multispecialty Care - [place] [address] [place] [address] [address] [place] [address] Curtis Diaz MD [address] [facility] [address] [place], [place] [id number] omeprazole Social History Tobacco Use Types Packs/Day [...] Sex Assigned at Female 01/08/2021 9:43 AM CLEAN UP PERSON Legal Sex Female 5:13 PM CDT Gender Identity Female 01/08/2021 9:43 AM CLEAN UP PERSON Sexual Orientation Straight 01/08/2021 9: 43 AM CLEAN UP PERSON COVID-19 Exposure Response Date Recorded In the last month, have you been in contact with someone who was confirmed or suspected to have Coronavirus / COVID-19? No / Unsure 10/24/2020 10:40 AM CLEAN UP PERSON documented as of this encounter Plan of Treatment Not on file documented as of this encounter Visit Diagnoses Not on filedocumented in this encounter Additional Health Concerns Infection Onset Date Last Indicated Resolved Time 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 06/30/2017 COVID-19 Rule Out 12/16/2020 12/16/2020 12/17/2020 4:31 PM CLEAN UP PERSON COVID-19 Rule Out 06/05/2021 06/05/2021 06/05/2021 12:31 PM CDT COVID-19 Rule Out 10/23/2021 10/23/2021 10/23/2021 9:25 AM CLEAN UP PERSON COVID-19 Rule Out 10/23/2021 10/23/2021 10/24/2021 12:21 AM CLEAN UP PERSON COVID-19 Rule Out 01/15/2022 01/15/2022 01/20/2022 10:53 AM CLEAN UP PERSON COVID-19 Rule Out 04/21/2022 04/21/2022 04/21/2022 11:42 AM CDT COVID-19 Rule Out 04/21/2022 04/21/2022 04/26/2022 7:02 AM CDT COVID-19 Rule Out 10/06/2022 10/06/2022 10/06/2022 1:21 PM CLEAN UP PERSON COVID-19 Rule Out 10/06/2022 10/06/2022 10/07/2022 3:34 PM CLEAN UP PERSON COVID-19 Rule Out 09/14/2023 09/14/2023 09/14/2023 3:48 PM CDT COVID-19 Rule Out 11/02/2024 11/02/2024 11/02/2024 4:03 PM CLEAN UP PERSON Assessment Noted Time PHQ-9 Depression Total Score: 020 1:12 PM CDT documented as of this encounter Care Teams Poultry Tender Relationship Specialty Start Date End Date Dasha Conway, CHRISTINE-STEPH [address] [place] [address] PCP - General 11/02/24 documented as of this encounter
--- OUTSIDE RECORDS SUMMARY | 2025-08-03 17:00 | XMS_ITS | Encounter Summary ---
Author Organization [facility] Address [facility] [place] [address] Care Team Providers Care Dental Instructor Name Role Phone Dasha Conway Erlin [facility] Primary Care Provider +1- [phone] Encounter Details Date Type Department Care Team (Latest Contact Info) Description 10/20/2020 [employer] Message Enc [facility] Medical Group Multispecialty Care - [place] [address] [place] [address] [address] [place] [address] Curtis Diaz MD 1188 [facility] 157 [place], [place] [id number] Follow Up/Update Social History Tobacco Use Types [...] Sex Assigned at Female 01/08/2021 9:43 AM MATE FOURTH Legal Sex Female 5:13 PM CDT Gender Identity Female 01/08/2021 9:43 AM MATE FOURTH Sexual Orientation Straight 01/08/2021 9: 43 AM MATE FOURTH COVID-19 Exposure Response Date Recorded In the last month, have you been in contact with someone who was confirmed or suspected to have Coronavirus / COVID-19? No / Unsure 10/22/2020 12:45 PM MATE FOURTH documented as of this encounter Plan of Treatment Not on file documented as of this encounter Visit Diagnoses Not on filedocumented in this encounter Additional Health Concerns Infection Onset Date Last Indicated Resolved Time 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 06/30/2017 COVID-19 Rule Out 12/16/2020 12/16/2020 12/17/2020 4:31 PM MATE FOURTH COVID-19 Rule Out 06/05/2021 06/05/2021 06/05/2021 12:31 PM CDT COVID-19 Rule Out 10/23/2021 10/23/2021 10/23/2021 9:25 AM MATE FOURTH COVID-19 Rule Out 10/23/2021 10/23/2021 10/24/2021 12:21 AM MATE FOURTH COVID-19 Rule Out 01/15/2022 01/15/2022 01/20/2022 10:53 AM MATE FOURTH COVID-19 Rule Out 04/21/2022 04/21/2022 04/21/2022 11:42 AM CDT COVID-19 Rule Out 04/21/2022 04/21/2022 04/26/2022 7:02 AM CDT COVID-19 Rule Out 10/06/2022 10/06/2022 10/06/2022 1:21 PM MATE FOURTH COVID-19 Rule Out 10/06/2022 10/06/2022 10/07/2022 3:34 PM MATE FOURTH COVID-19 Rule Out 09/14/2023 09/14/2023 09/14/2023 3:48 PM CDT COVID-19 Rule Out 11/02/2024 11/02/2024 11/02/2024 4:03 PM MATE FOURTH Assessment Noted Time PHQ-9 Depression Total Score: 020 1:12 PM CDT documented as of this encounter Care Teams Dental Instructor Relationship Specialty Start Date End Date Dasha Conway, CHRISTINE- [address] [place] [address] PCP - General 11/02/24 documented as of this encounter
--- OUTSIDE RECORDS SUMMARY | 2025-08-03 17:00 | XMS_ITS | Encounter Summary ---
Author Organization [facility] Address [facility] [place] [address] Care Team Providers Care Machine Tailer Name Role Phone Dasha Conway Erlin [facility] Primary Care Provider +1- [phone] Encounter Details Date Type Department Care Team (Latest Contact Info) Description 06/21/2023 [employer] Message Enc [facility] Medical Group Multispecialty Care - [place] [address] [place] [address] [address] [place] [address] [place] [address] [place] [address] [address] [place], [place] [phone] More dexamethasone? Social History Tobacco Use Types [...] Sex Assigned at Female 01/08/2021 9:43 AM DRILL HAND Legal Sex Female 5:13 PM CDT Gender Identity Female 01/08/2021 9:43 AM DRILL HAND Sexual Orientation Straight 01/08/2021 9: 43 AM DRILL HAND documented as of this encounter Functional Status [...] Rule Out 11/02/2024 11/02/2024 11/02/2024 4:03 PM DRILL HAND Assessment Noted Time PHQ-9 Depression Total Score: 11 11/05/2 022 12:00 PM DRILL HAND documented as of this encounter Care Teams Machine Tailer Relationship Specialty Start Date End Date Dasha Conway, SUPERVISING BAILIFF- [address] [place] [address] PCP - General 11/02/24 documented as of this encounter
--- OUTSIDE RECORDS SUMMARY | 2025-08-03 17:00 | XMS_ITS | Encounter Summary ---
Author Organization [facility] Address [facility] [place] [address] Care Team Providers Care Tubular Products Fabricator Name Role Phone Dasha Conway Erlin [facility] Primary Care Provider +1- [phone] Encounter Details Date Type Department Care Team (Latest Contact Info) Description 04/24/2023 Buzz Referrals Message Enc [facility] Medical Group Multispecialty Care - [place] [address] [place] [address] [address] [place] [address] Curtis Diaz MD [address] [facility] [address] [place], [place] [phone] Pelvic pain on right side Social History [...] Sex Assigned at Female 01/08/2021 9:43 AM FLEET TECHNICIAN Legal Sex Female 5:13 PM CDT Gender Identity Female 01/08/2021 9:43 AM FLEET TECHNICIAN Sexual Orientation Straight 01/08/2021 9: 43 AM FLEET TECHNICIAN COVID-19 Exposure Response Date Recorded In [...] Rule Out 11/02/2024 11/02/2024 11/02/2024 4:03 PM FLEET TECHNICIAN Assessment Noted Time PHQ-9 Depression Total Score: 11 12/ 022 12:00 PM FLEET TECHNICIAN documented as of this encounter Care Teams Tubular Products Fabricator Relationship Specialty Start Date End Date Dasha Conway FNP-STEPH [address] [place] [address] PCP - General 11/02/24 documented as of this encounter
--- OUTSIDE RECORDS SUMMARY | 2025-08-03 17:00 | XMS_ITS | Encounter Summary ---
Author Organization [facility] Address [facility]6 [place] [address] Care Team Providers Care Renovator Machine Operator Name Role Phone Dasha Conway Erlin [facility] Primary Care Provider +1- [phone] Encounter Details Date Type Department Care Team (Latest Contact Info) Description 09/13/2023 [employer] Message Enc [facility] Medical Group Multispecialty Care - [place] [address] [place] [address] [address] [place], [place] [phone] [place] [address] [place] [address] 157 [place], [place] [phone] Unsure what to do Social History Tobacco [...] Sex Assigned at Female 01/08/2021 9:43 AM CONSTRUCTION CHECKER Legal Sex Female 5:13 PM CDT Gender Identity Female 01/08/2021 9:43 AM CONSTRUCTION CHECKER Sexual Orientation Straight 01/08/2021 9 :43 AM CONSTRUCTION CHECKER documented as of this encounter Functional Status [...] Rule Out 11/02/2024 11/02/2024 11/02/2024 4:03 PM CONSTRUCTION CHECKER Assessment Noted Time PHQ-9 Depression Total Score: 11 11/05/2 022 12:00 PM CONSTRUCTION CHECKER documented as of this encounter Care Teams Renovator Machine Operator Relationship Specialty Start Date End Date Dasha Conway, BUTTON BREAKER OPERATOR- [address] [place] [address] PCP - General 11/02/24 documented as of this encounter
--- OUTSIDE RECORDS SUMMARY | 2025-08-03 17:00 | XMS_ITS | Encounter Summary ---
Author Organization [facility] Address [facility] [place] [address] Care Team Providers Care Cath Lab Radiology Technician Name Role Phone Dasha Conway Erlin [facility] Primary Care Provider +1- [phone] Encounter Details Date Type Department Care Team (Latest Contact Info) Description 10/21/2020 [employer] Message Enc [facility] Medical Group Multispecialty Care - [place] [address] [place] [address] [address] [place] [address] Curtis Diaz MD [address] [facility] [address] [place], [place] [phone] RE: Medication Questions Social History Tobacco Use [...] Sex Assigned at Female 01/08/2021 9:43 AM HEEL CASER Legal Sex Female 5:13 PM CDT Gender Identity Female 01/08/2021 9:43 AM HEEL CASER Sexual Orientation Straight 01/08/2021 9: 43 AM HEEL CASER COVID-19 Exposure Response Date Recorded In the last month, have you been in contact with someone who was confirmed or suspected to have Coronavirus / COVID-19? No / Unsure 10/24/2020 10:40 AM HEEL CASER documented as of this encounter Plan of Treatment Not on file documented as of this encounter Visit Diagnoses Not on filedocumented in this encounter Additional Health Concerns Infection Onset Date Last Indicated Resolved Time 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 06/30/2017 COVID-19 Rule Out 12/16/2020 12/16/2020 12/17/2020 4:31 PM HEEL CASER COVID-19 Rule Out 06/05/2021 06/05/2021 06/05/2021 12:31 PM CDT COVID-19 Rule Out 10/23/2021 10/23/2021 10/23/2021 9:25 AM HEEL CASER COVID-19 Rule Out 10/23/2021 10/23/2021 10/24/2021 12:21 AM HEEL CASER COVID-19 Rule Out 01/15/2022 01/15/2022 01/20/2022 10:53 AM HEEL CASER COVID-19 Rule Out 04/21/2022 04/21/2022 04/21/2022 11:42 AM CDT COVID-19 Rule Out 04/21/2022 04/21/2022 04/26/2022 7:02 AM CDT COVID-19 Rule Out 10/06/2022 10/06/2022 10/06/2022 1:21 PM HEEL CASER COVID-19 Rule Out 10/06/2022 10/06/2022 10/07/2022 3:34 PM HEEL CASER COVID-19 Rule Out 09/14/2023 09/14/2023 09/14/2023 3:48 PM CDT COVID-19 Rule Out 11/02/2024 11/02/2024 11/02/2024 4:03 PM HEEL CASER Assessment Noted Time PHQ-9 Depression Total Score: 020 1:12 PM CDT documented as of this encounter Care Teams Cath Lab Radiology Technician Relationship Specialty Start Date End Date Dasha Conway, CHRISTINE- [address] [place] [address] PCP - General 11/02/24 documented as of this encounter
--- OUTSIDE RECORDS SUMMARY | 2025-08-03 17:00 | XMS_ITS | Encounter Summary ---
Author Organization [facility] Address [facility] [place] [address] Care Team Providers Care Pizza Delivery Name Role Phone Dasha Conway Erlin [facility] Primary Care Provider +1- [phone] Encounter Details Date Type Department Care Team (Latest Contact Info) Description 02/12/2024 [employer] Message Enc [facility] Medical Group Multispecialty Care - [place] [address] [place] [address] [address] [place], [place] [phone] [place] [address] [place] [address] 157 [place], [place] [phone] Shoulder/arm pain Social History Tobacco Use Types [...] Sex Assigned at Female 01/08/2021 9:43 AM PRECAST CONCRETE IRONWORKER Legal Sex Female 5:13 PM CDT Gender Identity Female 01/08/2021 9:43 AM PRECAST CONCRETE IRONWORKER Sexual Orientation Straight 01/08/2021 9: 43 AM PRECAST CONCRETE IRONWORKER documented as of this encounter Functional Status [...] Rule Out 11/02/2024 11/02/2024 11/02/2024 4:03 PM PRECAST CONCRETE IRONWORKER Assessment Noted Time PHQ-9 Depression Total Score: 7 11/16/20 23 9:57 AM PRECAST CONCRETE IRONWORKER documented as of this encounter Care Teams Pizza Delivery Relationship Specialty Start Date End Date Dasha Conway, PAIRER- [address] [place] [address] PCP - General 11/02/24 documented as of this encounter
--- OUTSIDE RECORDS SUMMARY | 2025-08-03 17:00 | XMS_ITS | Encounter Summary ---
Author Organization [facility] Address [facility] [place] [address] Care Team Providers Care Steel Erecting Pusher Name Role Phone Dasha Conway Erlin [facility] Primary Care Provider +1- [phone] Encounter Details Date Type Department Care Team (Latest Contact Info) Description 04/01/2023 [employer] Message Enc [facility] Medical Group Multispecialty Care - [place] [address] [place] [address] [address] [place] [address] Curtis Diaz MD 118[address] [facility] [address] [place], [place] [phone] Home from surgery Social History Tobacco Use [...] Sex Assigned at Female 01/08/2021 9:43 AM LINK WIRE FABRIC MACHINE TENDER Legal Sex Female 5:13 PM CDT Gender Identity Female 01/08/2021 9:43 AM LINK WIRE FABRIC MACHINE TENDER Sexual Orientation Straight 01/08/2021 9: 43 AM LINK WIRE FABRIC MACHINE TENDER COVID-19 Exposure Response Date Recorded In [...] Author Status No 06/13/2022 10:59 PM CDT Dneis Nam RN Active * Do you have [...] Rule Out 11/02/2024 11/02/2024 11/02/2024 4:03 PM LINK WIRE FABRIC MACHINE TENDER Assessment Noted Time PHQ-9 Depression Total Score: 11 12/ 022 12:00 PM LINK WIRE FABRIC MACHINE TENDER documented as of this encounter Care Teams Steel Erecting Pusher Relationship Specialty Start Date End Date Dasha Conway, COMPUTER SOFTWARE ENGINEER- [address] [place] [address] PCP - General 11/02/24 documented as of this encounter
--- OUTSIDE RECORDS SUMMARY | 2025-08-03 17:00 | XMS_ITS | Continuity of Care Document ---
Author Organization [facility] Address [address] [place] [address] Insurance Providers Payer Plan Claims Address Claims Phone Policy Number Group Number Relation Employer Guarantor Name Guarantor Guarantor Address Guarantor Phone [facility] [address] [address], [place] [address] tel:[phone] Self Mirian B Myles 1980 [address] [place] [address] [facility] [employer] D MEDICA RE ADV [facility] MEDIC ARE ADV [address] [address], [place] [address] tel:[phone] Self Mirian B [place] 1980 [address] [place] [address] MEDICA ID - OUT OF STATE MEDIC AID - OUT OF STATE [address] [address], [place] [address] tel:[phone] Self Mirian B Myles 1980 [address] [place] [address] Problems Unknown Problems Results No Results Allergies, adverse reactions, alerts No known allergies and adverse reactions Medications No administered medications reported Vital Signs No vital signs reported Social History No smoking Hx information available
--- OUTSIDE RECORDS SUMMARY | 2025-08-03 17:00 | XMS_ITS | Encounter Summary ---
Author Organization [facility] Address [facility] [place] [address] Care Team Providers Care Check Processing Clerk Name Role Phone Dasha Conway Erlin [facility] Primary Care Provider +1- [phone] Encounter Details Date Type Department Care Team (Late st Contact Info) Description 02/17/2024 Pathology [employer]st Message Enc [facility] Medical Group Multispecialty Care - [place] [address] [address] [place], [place] [phone] Curtis Diaz MD [address] [place] [address] 157 [place], [place] [phone] Lumps on arm Social History Tobacco Use [...] Sex Assigned at Female 01/08/2021 9:43 AM MATTRESS SPRING ENCASER Legal Sex Female 5:13 PM CDT Gender Identity Female 01/08/2021 9:43 AM MATTRESS SPRING ENCASER Sexual Orientation Straight 01/08/2021 9: 43 AM MATTRESS SPRING ENCASER documented as of this encounter Functional Status [...] Rule Out 11/02/2024 11/02/2024 11/02/2024 4:03 PM MATTRESS SPRING ENCASER Assessment Noted Time PHQ-9 Depression Total Score: 7 11/16/20 23 9:57 AM MATTRESS SPRING ENCASER documented as of this encounter Care Teams Check Processing Clerk Relationship Specialty Start Date End Date Dasha Conway, ELEVATOR TECHNICIAN- [address] [place] [address] PCP - General 11/02/24 documented as of this encounter
--- OUTSIDE RECORDS SUMMARY | 2025-08-03 17:00 | XMS_ITS | Encounter Summary ---
Author Organization [facility] Address [facility] [place] [address] Care Team Providers Care Cotton Wringer Name Role Phone Dasha Conway Erlin [facility] Primary Care Provider +1- [phone] Encounter Details Date Type Department Care Team (Latest Contact Info) Description 10/23/2020 [employer] Message Enc [facility] Medical Group Multispecialty Care - [place] [address] [place] [address] [address] [place] [address] Curtis Diaz MD 1188 [facility] [address] [place], [place] [phone] RE: Follow Up/Update Social History Tobacco Use [...] Sex Assigned at Female 01/08/2021 9:43 AM BRASS PLATER Legal Sex Female 5:13 PM CDT Gender Identity Female 01/08/2021 9:43 AM BRASS PLATER Sexual Orientation Straight 01/08/2021 9: 43 AM BRASS PLATER COVID-19 Exposure Response Date Recorded In the last month, have you been in contact with someone who was confirmed or suspected to have Coronavirus / COVID-19? No / Unsure 10/24/2020 10:40 AM BRASS PLATER documented as of this encounter Plan of Treatment Not on file documented as of this encounter Visit Diagnoses Not on filedocumented in this encounter Additional Health Concerns Infection Onset Date Last Indicated Resolved Time 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 06/30/2017 COVID-19 Rule Out 12/16/2020 12/16/2020 12/17/2020 4:31 PM BRASS PLATER COVID-19 Rule Out 06/05/2021 06/05/2021 06/05/2021 12:31 PM CDT COVID-19 Rule Out 10/23/2021 10/23/2021 10/23/2021 9:25 AM BRASS PLATER COVID-19 Rule Out 10/23/2021 10/23/2021 10/24/2021 12:21 AM BRASS PLATER COVID-19 Rule Out 01/15/2022 01/15/2022 01/20/2022 10:53 AM BRASS PLATER COVID-19 Rule Out 04/21/2022 04/21/2022 04/21/2022 11:42 AM CDT COVID-19 Rule Out 04/21/2022 04/21/2022 04/26/2022 7:02 AM CDT COVID-19 Rule Out 10/06/2022 10/06/2022 10/06/2022 1:21 PM BRASS PLATER COVID-19 Rule Out 10/06/2022 10/06/2022 10/07/2022 3:34 PM BRASS PLATER COVID-19 Rule Out 09/14/2023 09/14/2023 09/14/2023 3:48 PM CDT COVID-19 Rule Out 11/02/2024 11/02/2024 11/02/2024 4:03 PM BRASS PLATER Assessment Noted Time PHQ-9 Depression Total Score: 13 020 1:12 PM CDT documented as of this encounter Care Teams Cotton Wringer Relationship Specialty Start Date End Date Dasha Conway, CHRISTINE- [address] [place] [address] PCP - General 11/02/24 documented as of this encounter
--- OUTSIDE RECORDS SUMMARY | 2025-08-03 17:00 | XMS_ITS | Encounter Summary ---
Author Organization [facility] Address [facility] [place] [address] Care Team Providers Care Piece Presser Name Role Phone Dasha Conway Erlin [facility] Primary Care Provider +1- [phone] Encounter Details Date Type Department Care Team (Late st Contact Info) Description 02/03/2021 [employer] Message Enc [facility] Medical Group Multispecialty Care - [place] [address] [address] [place], [place] [phone] [place] [address] [place] [address] 157 [place] [address] RE: Question Social History Tobacco Use Types [...] Sex Assigned at Female 01/08/2021 9:43 AM OUTBOARD MOTORBOAT OPERATOR Legal Sex Female 5:13 PM CDT Gender Identity Female 01/08/2021 9:43 AM OUTBOARD MOTORBOAT OPERATOR Sexual Orientation Straight 01/08/2021 9: 43 AM OUTBOARD MOTORBOAT OPERATOR COVID-19 Exposure Response Date Recorded In [...] Rule Out 10/23/2021 10/23/2021 10/23/2021 9:25 AM OUTBOARD MOTORBOAT OPERATOR COVID-19 Rule Out 10/23/2021 10/23/2021 10/24/2021 12:21 AM OUTBOARD MOTORBOAT OPERATOR COVID-19 Rule Out 01/15/2022 01/15/2022 01/20/2022 10:53 AM OUTBOARD MOTORBOAT OPERATOR COVID-19 Rule Out 04/21/2022 04/21/2022 04/21/2022 11:42 AM CDT COVID-19 Rule Out 04/21/2022 04/21/2022 04/26/2022 7:02 AM CDT COVID-19 Rule Out 10/06/2022 10/06/2022 10/06/2022 1:21 PM OUTBOARD MOTORBOAT OPERATOR COVID-19 Rule Out 10/06/2022 10/06/2022 10/07/2022 3:34 PM OUTBOARD MOTORBOAT OPERATOR COVID-19 Rule Out 09/14/2023 09/14/2023 09/14/2023 3:48 PM CDT COVID-19 Rule Out 11/02/2024 11/02/2024 11/02/2024 4:03 PM OUTBOARD MOTORBOAT OPERATOR Assessment Noted Time PHQ-9 Depression Total Score: 13 020 1:12 PM CDT documented as of this encounter Care Teams Piece Presser Relationship Specialty Start Date End Date Dasha Conway, RESEARCH GROUP DIRECTOR- [address] [place] [address] PCP - General 11/02/24 documented as of this encounter
--- OUTSIDE RECORDS SUMMARY | 2025-08-03 17:00 | XMS_ITS | Encounter Summary ---
Author Organization [facility] Address [facility] [place] [address] Care Team Providers Care Contract Processor Name Role Phone Dasha Conway [facility] Primary Care Provider +1- [phone] Encounter Details Date Type Department Care Team (Latest Contact Info) Description 03/02/2021 [employer] Message Enc [facility] Medical Group Multispecialty Care - [address] [place] [address] Mela Elaine, GAME TRAPPER RE: Follow Up/Update Social History Tobacco Use [...] Assigned at Female 01/08/2021 9:43 AM SCIENCE AND OPERATIONS OFFICER Legal Sex Female 5:13 PM CDT Gender Identity Female 01/08/2021 9:43 AM SCIENCE AND OPERATIONS OFFICER Sexual Orientation Straight 01/08/2021 9: 43 AM SCIENCE AND OPERATIONS OFFICER COVID-19 Exposure Response Date Recorded In [...] Out 10/23/2021 10/23/2021 10/23/2021 9:25 AM SCIENCE AND OPERATIONS OFFICER COVID-19 Rule Out 10/23/2021 10/23/2021 10/24/2021 12:21 AM SCIENCE AND OPERATIONS OFFICER COVID-19 Rule Out 01/15/2022 01/15/2022 01/20/2022 10:53 AM SCIENCE AND OPERATIONS OFFICER COVID-19 Rule Out 04/21/2022 04/21/2022 04/21/2022 11:42 AM CDT COVID-19 Rule Out 04/21/2022 04/21/2022 04/26/2022 7:02 AM CDT COVID-19 Rule Out 10/06/2022 10/06/2022 10/06/2022 1:21 PM SCIENCE AND OPERATIONS OFFICER COVID-19 Rule Out 10/06/2022 10/06/2022 10/07/2022 3:34 PM SCIENCE AND OPERATIONS OFFICER COVID-19 Rule Out 09/14/2023 09/14/2023 09/14/2023 3:48 PM CDT COVID-19 Rule Out 11/02/2024 11/02/2024 11/02/2024 4:03 PM SCIENCE AND OPERATIONS OFFICER Assessment Noted Time PHQ-9 Depression Total Score: 13 020 1:12 PM CDT documented as of this encounter Care Teams Contract Processor Relationship Specialty Start Date End Date Dasha Conway FNP- [address] [place] [address] PCP - General 11/02/24 documented as of this encounter
--- OUTSIDE RECORDS SUMMARY | 2025-08-03 17:00 | XMS_ITS | Encounter Summary ---
Author Organization [facility] Address [facility] [place] [address] Care Team Providers Care Ways Operator Name Role Phone Dasha Conway [facility] Primary Care Provider [phone]- [phone] Encounter Details Date Type Department Care Team (Late st Contact Info) Description 12/08/2020 Prep for Procedure [facility] [address] [place] [address] Donovan Parks MD [address] [place] [address] [id number] Social History Tobacco Use Types Packs/Day Years [...] Sex Assigned at Female 01/08/2021 9:43 AM MOLYBDENUM STEAMER OPERATOR Legal Sex Female 5:13 PM CDT Gender Identity Female 01/08/2021 9:43 AM MOLYBDENUM STEAMER OPERATOR Sexual Orientation Straight 01/08/2021 9: 43 AM MOLYBDENUM STEAMER OPERATOR COVID-19 Exposure Response Date Recorded In the last month, have you been in contact with someone who was confirmed or suspected to have Coronavirus / COVID-19? No / Unsure 12/10/2020 10:34 PM MOLYBDENUM STEAMER OPERATOR documented as of this encounter Plan of Treatment Not on file documented as of this encounter Results * PRE-SURGICAL/PRE-PROCEDURE CORONAVIRUS (COVID 19) (12/16/2020 2:19 PM MOLYBDENUM STEAMER OPERATOR) CORONAVIRUS SARS COV 2 PCR (RESP) NOT DETECTED NOT DETECTED 12/17/2020 4:31 PM MOLYBDENUM STEAMER OPERATOR [facility] Comment: A Not Detected (negative) test [...] providers and patients using the following websites: https://www.[employer]MicroCHIPS/home/Covid-19/HCP/NAAT/fact-sheet2 https://www.[employer]/home/Covid-19/Patients/NAAT/ fact-sheet2 This test has been authorized by the FDA under an Emergency Use Authorization (EUA) for use by authorized laboratories. Due to the current public health emergency, [facility] is receiving a high volume of samples [...] about COVID-19 can be found at the [facility] website: www.[employer].MicroCHIPS/Covid19. Test performed at [facility] [address] [place] [address] Director: CURRY BAEZA DO,MPH FIRST TEST NO 12/16/2020 2:10 PM MOLYBDENUM STEAMER OPERATOR [facility] EMPLOYED IN HEALTHCARE NO 12/16/2020 2:10 PM MOLYBDENUM STEAMER OPERATOR [facility] SYMPTOMATIC DEFINED BY CDC NO 12/16/2020 2:10 PM MOLYBDENUM STEAMER OPERATOR [facility] DATE OF SYMPTOM ONSET UNKNOWN 12/16/2020 2:35 PM MOLYBDENUM STEAMER OPERATOR [facility] HOSPITALIZATION STATUS NO 12/16/2020 2:10 PM MOLYBDENUM STEAMER OPERATOR [facility] PATIENT IN ICU NO 12/16/2020 2:10 PM MOLYBDENUM STEAMER OPERATOR [facility] RESIDENT [facility] NO 12/16/2020 2:10 PM MOLYBDENUM STEAMER OPERATOR [facility] NOT 12/16/2020 2:10 PM MOLYBDENUM STEAMER OPERATOR [facility] PATIENT'S RACE WHITE OR 12/16/2020 2:10 PM MOLYBDENUM STEAMER OPERATOR [facility] ETHNICITY NONHISPANIC 12/16/2020 2:10 PM MOLYBDENUM STEAMER OPERATOR [facility] SOURCE (QST) NASOPHARYNGEAL SWAB 12/16/2020 2:10 PM MOLYBDENUM STEAMER OPERATOR [facility] NASOPHARYNGEAL SWAB / Unknown 12/16/2020 2:19 PM MOLYBDENUM STEAMER OPERATOR us Donovan Parks MD MICROBIOLOGY - GENERAL ORDERABLE S Final Result [facility] [address] [place] [address], [place] [phone] [facility] [id number] [place] [address], documented in this encounter Visit Diagnoses Diagnosis Preop testing- Primary Preoperative examination, unspecified documented in this encounter Additional Health Concerns Infection Onset Date Last Indicated Resolved Time 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 06/30/2017 COVID-19 Rule Out 12/16/2020 12/16/2020 12/17/2020 4:31 PM MOLYBDENUM STEAMER OPERATOR COVID-19 Rule Out 06/05/2021 06/05/2021 06/05/2021 12:31 PM CDT COVID-19 Rule Out 10/23/2021 10/23/2021 10/23/2021 9:25 AM MOLYBDENUM STEAMER OPERATOR COVID-19 Rule Out 10/23/2021 10/23/2021 10/24/2021 12:21 AM MOLYBDENUM STEAMER OPERATOR COVID-19 Rule Out 01/15/2022 01/15/2022 01/20/2022 10:53 AM MOLYBDENUM STEAMER OPERATOR COVID-19 Rule Out 04/21/2022 04/21/2022 04/21/2022 11:42 AM CDT COVID-19 Rule Out 04/21/2022 04/21/2022 04/26/2022 7:02 AM CDT COVID-19 Rule Out 10/06/2022 10/06/2022 10/06/2022 1:21 PM MOLYBDENUM STEAMER OPERATOR COVID-19 Rule Out 10/06/2022 10/06/2022 10/07/2022 3:34 PM MOLYBDENUM STEAMER OPERATOR COVID-19 Rule Out 09/14/2023 09/14/2023 09/14/2023 3:48 PM CDT COVID-19 Rule Out 11/02/2024 11/02/2024 11/02/2024 4:03 PM MOLYBDENUM STEAMER OPERATOR Assessment Noted Time PHQ-9 Depression Total Score: 13 020 1:12 PM CDT documented as of this encounter Care Teams Ways Operator Relationship Specialty Start Date End Date Dahsa Conway FRESH FOOD MANAGER-BC [address] [place] [address] PCP - General 11/02/24 documented as of this encounter
--- OUTSIDE RECORDS SUMMARY | 2025-08-03 17:00 | XMS_ITS | Encounter Summary ---
Author Organization [facility] Address [facility] [place] [address] Care Team Providers Care Contract Technical Writer Name Role Phone Dasha Conway Erlin [facility] Primary Care Provider [phone]- [phone] Encounter Details Date Type Department Care Team (Late st Contact Info) Description 07/11/2023 [employer] Technologyt Message Enc [facility] Medical Group Multispecialty Care - [place] [address] [address] [place] [address] Curtis Diaz MD [address] [place] [address] [address] [place] [address] Relief Social History Tobacco Use Types Packs/Day [...] Sex Assigned at Female 01/08/2021 9:43 AM PLATER HOT DIP Legal Sex Female 5:13 PM CDT Gender Identity Female 01/08/2021 9:43 AM PLATER HOT DIP Sexual Orientation Straight 01/08/2021 9: 43 AM PLATER HOT DIP documented as of this encounter Functional Status [...] Rule Out 11/02/2024 11/02/2024 11/02/2024 4:03 PM PLATER HOT DIP Assessment Noted Time PHQ-9 Depression Total Score: 11 11/05/ 022 12:00 PM PLATER HOT DIP documented as of this encounter Care Teams Contract Technical Writer Relationship Specialty Start Date End Date Dasha Conway, CHRISTINE- [address] [place] [address] PCP - General 11/02/24 documented as of this encounter
--- OUTSIDE RECORDS SUMMARY | 2025-08-03 17:00 | XMS_ITS | Encounter Summary ---
Author Organization [facility] Address [facility] [place] [address] Care Team Providers Care Blooming Mill Supervisor Name Role Phone Dasha Conway Erlin [facility] Primary Care Provider [phone]- [phone] Encounter Details Date Type Department Care Team (Late st Contact Info) Description 09/14/2023 My Digital [employer] Message Enc [facility] Medical Group Multispecialty Care - [place] [address] [place] [address] [address] [place] [address] [place] [address] [place] [address] 157 [place] [address] Chest xray Social History Tobacco Use Types [...] Sex Assigned at Female 01/08/2021 9:43 AM RUBBER MOLD MAKER Legal Sex Female 5:13 PM CDT Gender Identity Female 01/08/2021 9:43 AM RUBBER MOLD MAKER Sexual Orientation Straight 01/08/2021 9: 43 AM RUBBER MOLD MAKER documented as of this encounter Functional [...] Rule Out 11/02/2024 11/02/2024 11/02/2024 4:03 PM RUBBER MOLD MAKER Assessment Noted Time PHQ-9 Depression Total Score: 11 11/05/ 022 12:00 PM RUBBER MOLD MAKER documented as of this encounter Care Teams Blooming Mill Supervisor Relationship Specialty Start Date End Date Dasha Conway, FILM PRODUCER- [address] [place] [address] PCP - General 11/02/24 documented as of this encounter
--- OUTSIDE RECORDS SUMMARY | 2025-08-03 17:00 | XMS_ITS | Encounter Summary ---
Author Organization [facility] Address [facility] [place] [address] Care Team Providers Care Fern Gatherer Name Role Phone Dasha Conway [facility] Primary Care Provider [phone]- [phone] Encounter Details Date Type Department Care Team (Late st Contact Info) Description 06/23/2023 [employer]iSystemst Message Enc [facility] Medical Group Multispecialty Care - [place] [address] [address] [place] [address] Curtis Diaz MD [address] [place] [address] 157 [place] [address] Yeast infection Social History Tobacco Use Types [...] Sex Assigned at Female 01/08/2021 9:43 AM LEARNING ENGINEER Legal Sex Female 5:13 PM CDT Gender Identity Female 01/08/2021 9:43 AM LEARNING ENGINEER Sexual Orientation Straight 01/08/2021 9: 43 AM LEARNING ENGINEER documented as of this encounter Functional [...] Rule Out 11/02/2024 11/02/2024 11/02/2024 4:03 PM LEARNING ENGINEER Assessment Noted Time PHQ-9 Depression Total Score: 11 11/05/2 022 12:00 PM LEARNING ENGINEER documented as of this encounter Care Teams Fern Gatherer Relationship Specialty Start Date End Date Dasha Conway, FRONT END ASSISTANT- [address] [place] [address] PCP - General 11/02/24 documented as of this encounter
--- OUTSIDE RECORDS SUMMARY | 2025-08-03 17:00 | XMS_ITS | Encounter Summary ---
Author Organization [facility] Address [facility] [place] [address] Care Team Providers Care Coupling Machine Operator Name Role Phone Dasha Conway Erlin [facility] Primary Care Provider [phone] Encounter Details Date Type Department Care Team (Late st Contact Info) Description 07/08/2023 Raiset Message Enc [facility] Medical Group Multispecialty Care - [place] [address] [address] [place] [address] [place] [address] [place] [address] 157 [place] [address] Nausea Social History Tobacco Use Types Packs/Day [...] Sex Assigned at Female 01/08/2021 9:43 AM NETWORK DEVELOPER Legal Sex Female 5:13 PM CDT Gender Identity Female 01/08/2021 9:43 AM NETWORK DEVELOPER Sexual Orientation Straight 01/08/2021 9: 43 AM NETWORK DEVELOPER documented as of this encounter Functional [...] Rule Out 11/02/2024 11/02/2024 11/02/2024 4:03 PM NETWORK DEVELOPER Assessment Noted Time PHQ-9 Depression Total Score: 11 11/05/ 022 12:00 PM NETWORK DEVELOPER documented as of this encounter Care Teams Coupling Machine Operator Relationship Specialty Start Date End Date Dasha Conway, CHRISTINE- [address] [place] [address] PCP - General 11/02/24 documented as of this encounter
--- OUTSIDE RECORDS SUMMARY | 2025-08-03 17:00 | XMS_ITS | Encounter Summary ---
Author Organization [facility] Address [facility]6 [place] [address] Care Team Providers Care Medical Oncology Physician Name Role Phone Dasha Conway Erlin [facility] Primary Care Provider [phone]- [phone] Encounter Details Date Type Department Care Team (Late st Contact Info) Description 08/24/2023 DirectMoney Message Enc [facility] Medical Group Multispecialty Care - [place] [address] [address] [place] [address] Curtis Diaz MD [address] [place] [address] 157 [place] [address] GI doctor Social History Tobacco Use Types [...] Sex Assigned at Female 01/08/2021 9:43 AM FINANCIAL ADVOCATE Legal Sex Female 5:13 PM CDT Gender Identity Female 01/08/2021 9:43 AM FINANCIAL ADVOCATE Sexual Orientation Straight 01/08/2021 9: 43 AM FINANCIAL ADVOCATE documented as of this encounter Functional Status [...] Rule Out 11/02/2024 11/02/2024 11/02/2024 4:03 PM FINANCIAL ADVOCATE Assessment Noted Time PHQ-9 Depression Total Score: 11 11/05/2 022 12:00 PM FINANCIAL ADVOCATE documented as of this encounter Care Teams Medical Oncology Physician Relationship Specialty Start Date End Date Dasha Conway, OFFICE MESSENGER- [address] [place] [address] PCP - General 11/02/24 documented as of this encounter
--- OUTSIDE RECORDS SUMMARY | 2025-08-03 17:00 | XMS_ITS | Clinical Summary ---
Author Organization [facility] Address [address] [facility] [place] [address] Care Team Providers Care Drapery Rod Assembler Name Role Phone Curtis Diaz MD Primary Care Provider [phone] [facility],non-owned Affiliates and Associated Physician Practices is amultiple site organization consisting of ambulatory clinics and hospital sitesin [place], [place], [place] and [place]. This disclosure is being madepursuant to the Care Everywhere program and may not contain all information available regarding this patient. Last updated 18.[facility] Allergies Active Allergy Reactions Criticality Noted Date Comments Augmentin Urticaria High 12/27/2014 Azithromycin Urticaria Medium 10/30/2019 Codeine Itching 03/09/2011 Pregabalin Shortness of Breath High 10/30/2019 Ropinirole Other High 12/27/2014 Causes aims or restless movement throughout body Tramadol Vomiting 10/30/2019 Medications * This document contains information received from the source organization and may not represent a complete record from that organization. * Be aware that medications may not be up to date on this document. Alwaysverify current medications with the patient. topiramate (TOPAMAX) 25 MG tablet Take 25 mg by mouth 2 times daily. Active loxapine (LOXITANE) 10 MG capsule Take 10 mg by mouth at bedtime. 03/09/2011 Active LORazepam (ATIVAN) 2 MG/ML solution Take 4 mg by mouth at bedtime. 03/09/2011 Active LORazepam (ATIVAN) 2 MG/ML solution Take 2 mg by mouth as needed. 03/09/2011 Active fish oil/omega-3 fatty acids (PROMEGA;CARDI-O EMANUEL 3) 1000 MG capsule Take 1,000 mg by mouth 3 times daily with meals. Active albuterol (PROVENTIL; VENTOLIN) 90 MCG/ACT inhaler Inhale 2 Puffs by mouth every 6 hours as needed. Active Immunizations Immunization Administration Dates Next Due INFLUENZA VACCINE, QUADR. (F LUZONE; FLULAVAL; FLUARIX; AFLURIA QUADRIVALENT; 6MO+), 0.5 ML (IIV4) 10/30/2019 Social History Tobacco Use Types Packs/Day Years Used Date Smoking Tobacco: Every Day Cigarettes 1 31.7 Started: 11/21/1993 Alcohol Use Standard Drinks/Week Comments No 0 (1 standard drink = 0.6 oz pur e alcohol) Comments Unknown Sex and Gender Information Value Date Recorded Sex Assigned at Female 08/03/2021 3:36 PM CDT Legal Sex Female 6:44 AM MANAGER IMPLEMENTATION Gender Identity Female 08/03/2021 3:36 PM CDT [...] 4:55 PM CDT Height 160 cm (5' 3) 03/09/2011 4:55 PM CDT Body Mass Index 28.7 03/09/2011 4:55 PM CDT Plan of Treatment Health Maintenance Due Date Last Done Comments COLOGUARD (AGES 45-75) - COLON CA SCREENING 1980 COLON MONITORING 1980 COLONOSCOPY - COLON CA SCREENING 1980 CT COLONOGRAPHY - COLON CA SCREENING 1980 Colorectal Cancer Screening 1980 FIT - COLON CA SCREENING 1980 FLEX SIG - COLON CA SCREENING 1980 DTAP/TDAP/TD VACCINES (1 - Tdap) 1999 HEPATITIS B VACCINE (1 of 3 - 19+ 3-dose series) 1999 PNEUMOCOCCAL VACCINE (1 of 2 - PCV) 1999 PAP SMEAR 2001 HPV VACCINE (1 - 3-dose SCDM series) 2007 DEPRESSION SCREENING 11/21/2024 MEDICARE AWV CALENDAR YEAR 2024 MAMMOGRAM 02/16/2025 02/16/2023 COVID-19 VACCINE (1 - season) 2025 INFLUENZA VACCINE (#1) 2025 , 10/09/2020, 10/30/2019, Additional history exists LIPID TESTING 11/16/2028 11/16/2023, 01/30/2022 ZOSTER VACCINE [...] on patient's age to complete this topic Insurance MEDICAID - [place] [facility] MEDICAID - OUT OF STATE [facility] UHC MANAGED MEDICARE ADV Care Teams Drapery Rod Assembler Relationship Specialty Start Date End Date Curtis Diaz MD [address] [facility] [address] [place] [address] (work) PCP - General 04/12/22
--- OUTSIDE RECORDS SUMMARY | 2025-08-03 17:00 | XMS_ITS | Encounter Summary ---
Author Organization [facility] Address [facility]6 [place] [address] Care Team Providers Care Fpga Design Engineer Name Role Phone Dasha Conway Erlin [facility] Primary Care Provider [phone] Encounter Details Date Type Department Care Team (Latest Contact Info) Description 07/06/2023 [employer] Message Enc [facility] Medical Group Multispecialty Care - [place] [address] [place] [address] [address] [place], [place] [address] [place] [address] [place] [address] [address] [place], [place] [id number] Pain meds for mouth Social History Tobacco [...] Assigned at Female 01/08/2021 9:43 AM PLANT AND EQUIPMENT WORKER Legal Sex Female 5:13 PM CDT Gender Identity Female 01/08/2021 9:43 AM PLANT AND EQUIPMENT WORKER Sexual Orientation Straight 01/08/2021 9: 43 AM PLANT AND EQUIPMENT WORKER documented as of this encounter Functional [...] Out 11/02/2024 11/02/2024 11/02/2024 4:03 PM PLANT AND EQUIPMENT WORKER Assessment Noted Time PHQ-9 Depression Total Score: 11 11/05/2 022 12:00 PM PLANT AND EQUIPMENT WORKER documented as of this encounter Care Teams Fpga Design Engineer Relationship Specialty Start Date End Date Dasha Conway, PASSENGER AGENT- [address] [place] [address] PCP - General 11/02/24 documented as of this encounter
--- OUTSIDE RECORDS SUMMARY | 2025-08-03 17:00 | XMS_ITS | Encounter Summary ---
Author Organization [facility] Address [facility] [place] [address] Care Team Providers Care Auger Machine Offbearer Name Role Phone Dasha Conway Erlin [facility] Primary Care Provider [phone] Encounter Details Date Type Department Care Team (Latest Contact Info) Description 11/27/2020 Nebulahart Message Enc [facility] Medical Group Multispecialty Care - [place] [address] [place] [address] [address] [place] [address] Curtis Diaz MD [address] [facility] [address] [place], [place] [phone] Medication Questions Social History Tobacco Use Types [...] Sex Assigned at Female 01/08/2021 9:43 AM SEAM FINISHER Legal Sex Female 5:13 PM CDT Gender Identity Female 01/08/2021 9:43 AM SEAM FINISHER Sexual Orientation Straight 01/08/2021 9: 43 AM SEAM FINISHER COVID-19 Exposure Response Date Recorded In the last month, have you been in contact with someone who was confirmed or suspected to have Coronavirus / COVID-19? 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 06/30/2017 COVID-19 Rule Out 12/16/2020 12/16/2020 12/17/2020 4:31 PM SEAM FINISHER COVID-19 Rule Out 06/05/2021 06/05/2021 06/05/2021 12:31 PM CDT COVID-19 Rule Out 10/23/2021 10/23/2021 10/23/2021 9:25 AM SEAM FINISHER COVID-19 Rule Out 10/23/2021 10/23/2021 10/24/2021 12:21 AM SEAM FINISHER COVID-19 Rule Out 01/15/2022 01/15/2022 01/20/2022 10:53 AM SEAM FINISHER COVID-19 Rule Out 04/21/2022 04/21/2022 04/21/2022 11:42 AM CDT COVID-19 Rule Out 04/21/2022 04/21/2022 04/26/2022 7:02 AM CDT COVID-19 Rule Out 10/06/2022 10/06/2022 10/06/2022 1:21 PM SEAM FINISHER COVID-19 Rule Out 10/06/2022 10/06/2022 10/07/2022 3:34 PM SEAM FINISHER COVID-19 Rule Out 09/14/2023 09/14/2023 09/14/2023 3:48 PM CDT COVID-19 Rule Out 11/02/2024 11/02/2024 11/02/2024 4:03 PM SEAM FINISHER Assessment Noted Time PHQ-9 Depression Total Score: 020 1:12 PM CDT documented as of this encounter Care Teams Auger Machine Offbearer Relationship Specialty Start Date End Date Dasha Conway, CHRISTINE- [address] [place] [address] PCP - General 11/02/24 documented as of this encounter
--- NOTE | 2025-08-03 17:01 | ECG_ITS ---
Test Date: 2025-08-03 17:05:31 Measurements Intervals [place] Rate: 79 P: 57 GA: 151 QRS: 30 QRSD: 90 T: 44 QT: 371 QTc: 425 Interpretive Statements SINUS RHYTHM NONSPECIFIC T-WAVE ABNORMALITY ABNORMAL ECG Compared to ECG 02/11/2025 15:48:58 T-wave abnormality now present Electronically Signed On 08-04-2025 09:38:03 CDT by Rainer Tanner M.D.
--- OUTSIDE RECORDS SUMMARY | 2025-08-03 17:01 | XMS_ITS | Encounter Summary ---
Author Organization [facility] Address [address] [place] [address] Care Team Providers Care Web Programmer Name Role Phone Esteban Soler MD Unavailable [phone] Curtis Diaz MD Primary Care Provider [phone] Donovan Parks MD Unavailable Dasha Conway NP Primary Care Provider [phone] Dasha Conway RESIDENTIAL SALES ASSOCIATE Primary Care Provider [phone] Encounter Details Date Type Department Care Team (Late st Contact Info) Description 08/12/2018 Orders Only [facility] Information Management [address] [place] [address] Scanning, Provider Social History Tobacco Use Types Packs/Day Years Used Date Smoking Tobacco: Every Day Cigarettes Smokeless Tobacco: Never Alcohol Use Standard Drinks/Week Comments No 0 (1 standard drink = 0.6 oz pur e alcohol) Comments Unknown Sex and Gender Information Value Date Recorded Sex Assigned at Not on file Legal Sex Female 3:37 AM SURFACE LAY OUT TECHNICIAN Gender Identity Female 10/02/2019 1:12 AM SURFACE LAY OUT TECHNICIAN Sexual Orientation Straight 10/02/2019 1: 12 AM SURFACE LAY OUT TECHNICIAN documented as of this encounter Plan of Treatment Not on file documented as of this encounter Procedures Procedure Name Priority Date/Time Associated Diagnosis Comments SCAN - RADIOLOGY/IMAGING 08/12/2018 documented in this encounter Results * SCAN - RADIOLOGY/IMAGING (08/12/2018) Anatomical Region Laterality Modality Other us Provider Scanning Final Result documented in this encounter Visit Diagnoses Not on filedocumented in this encounter Care Teams Web Programmer Relationship Specialty Start Date End Date Curtis Diaz MD [address] [place] [address] PCP - General Internal Medicine 06/12/21 08/22/24 Dasha Conway NP [address] [place] [address] PCP - General Family Medicine 08/23/24 05/01/25 Dasha Conway NP [address] [facility] [address] [place], [place] [address] PCP - General Family Medicine 05/02/25 Esteban Soler MD [address] [facility] [address] [address] [place] [address] Consulting Physician Rheumatology 09/10/19 06/11/21 Donovan Parks MD [address] [place] [address] Referring Physician Gastroenterology 06/12/21 documented as of this encounter
--- OUTSIDE RECORDS SUMMARY | 2025-08-03 17:01 | XMS_ITS | Encounter Summary ---
Author Organization [facility] Address [address] [place] [address] Phone Care Team Providers Care Recreation Center Director Name Role Phone Curtis Diaz MD Primary Care Provider Donovan Parks MD Unavailable Dasha Conway NP Primary Care Provider [phone] Dasha Conway NP Primary Care Provider [phone] Encounter Details Date Type Department Care Team (Late st Contact Info) Description 08/02/2023 Orders Only [facility] Scanning, Provider Social History Tobacco Use Types Packs/Day Years Used Date Smoking Tobacco: Every Day Cigarettes 1 31.7 Started: 11/21/1993 Smokeless Tobacco: Never Alcohol Use Standard Drinks/Week Comments No 0 (1 standard drink = 0.6 oz pur e alcohol) Comments No Sex and Gender Information Value Date Recorded Sex Assigned at Not on file Legal Sex Female 3:37 AM ROUNDHOUSE WORKER Gender Identity Female 10/02/2019 1:12 AM ROUNDHOUSE WORKER Sexual Orientation Straight 10/02/2019 1: 12 AM ROUNDHOUSE WORKER Occupation Industry Job Start Date Job End [...] on filedocumented in this encounter Care Teams Recreation Center Director Relationship Specialty Start Date End Date Curtis Diaz MD [address] [place] [address] PCP - General Internal Medicine 06/12/21 08/22/24 Dasha Conway NP [address] [place] [address] PCP - General Family Medicine 08/23/24 05/01/25 Dasha Conway NP [address] [place] [address] [address] [place], [place] [phone] PCP - General Family Medicine 05/02/25 Donovan Parks MD [address] [place] [address] Referring Physician Gastroenterology 06/12/21 documented as of this encounter
--- OUTSIDE RECORDS SUMMARY | 2025-08-03 17:01 | XMS_ITS | Encounter Summary ---
Author Organization [facility] Address [facility] [place] [address] Care Team Providers Care Manuscript Editor Name Role Phone Dasha Conway Erlin [facility] Primary Care Provider [phone]- [phone] Encounter Details Date Type Department Care Team (Latest Contact Info) Description 04/18/2024 [place] Message Enc [facility] Medical Group Multispecialty Care - [address] [address] [address] [place] [address] [place] [address] [place] [address] [address] [place], [place] [id number] Thrush/fluconazole Social History Tobacco Use Types Packs/Day [...] Sex Assigned at Female 01/08/2021 9:43 AM CHART CLERK Legal Sex Female 5:13 PM CDT Gender Identity Female 01/08/2021 9:43 AM CHART CLERK Sexual Orientation Straight 01/08/2021 9: 43 AM CHART CLERK documented as of this encounter Functional [...] Rule Out 11/02/2024 11/02/2024 11/02/2024 4:03 PM CHART CLERK Assessment Noted Time PHQ-9 Depression Total Score: 7 11/16/20 23 9:57 AM CHART CLERK documented as of this encounter Care Teams Manuscript Editor Relationship Specialty Start Date End Date Dasha Conway, PILOT CAN ROUTER- [address] [place] [address] PCP - General 11/02/24 documented as of this encounter
--- OUTSIDE RECORDS SUMMARY | 2025-08-03 17:01 | XMS_ITS | Encounter Summary ---
Author Organization [facility] Address [facility] [place] [address] Care Team Providers Care De Alcholizer Name Role Phone Dasha Conway [facility] Primary Care Provider +1- [phone] Encounter Details Date Type Department Care Team (Latest Contact Info) Description 02/28/2021 Indiceet Message Enc [facility] Medical Group Multispecialty Care - [address] [place] [address] Mela Elaine, DIRECTOR OF INSTRUMENTAL MUSIC RE: Follow Up/Update Social History Tobacco Use [...] Sex Assigned at Female 01/08/2021 9:43 AM TOWEL HEMMER Legal Sex Female 5:13 PM CDT Gender Identity Female 01/08/2021 9:43 AM TOWEL HEMMER Sexual Orientation Straight 01/08/2021 9: 43 AM TOWEL HEMMER COVID-19 Exposure Response Date Recorded In the [...] Rule Out 10/23/2021 10/23/2021 10/23/2021 9:25 AM TOWEL HEMMER COVID-19 Rule Out 10/23/2021 10/23/2021 10/24/2021 12:21 AM TOWEL HEMMER COVID-19 Rule Out 01/15/2022 01/15/2022 01/20/2022 10:53 AM TOWEL HEMMER COVID-19 Rule Out 04/21/2022 04/21/2022 04/21/2022 11:42 AM CDT COVID-19 Rule Out 04/21/2022 04/21/2022 04/26/2022 7:02 AM CDT COVID-19 Rule Out 10/06/2022 10/06/2022 10/06/2022 1:21 PM TOWEL HEMMER COVID-19 Rule Out 10/06/2022 10/06/2022 10/07/2022 3:34 PM TOWEL HEMMER COVID-19 Rule Out 09/14/2023 09/14/2023 09/14/2023 3:48 PM CDT COVID-19 Rule Out 11/02/2024 11/02/2024 11/02/2024 4:03 PM TOWEL HEMMER Assessment Noted Time PHQ-9 Depression Total Score: 13 020 1:12 PM CDT documented as of this encounter Care Teams De Alcholizer Relationship Specialty Start Date End Date Dasha Conway FNP- [address] [place] [address] PCP - General 11/02/24 documented as of this encounter
--- OUTSIDE RECORDS SUMMARY | 2025-08-03 17:01 | XMS_ITS | Encounter Summary ---
Author Organization [facility] Address [facility] [place] [address] Care Team Providers Care Wind Turbine Engineer Name Role Phone Dasha Conway [facility] Primary Care Provider [phone]- [phone] Encounter Details Date Type Department Care Team (Latest Contact Info) Description 03/30/2021 T[employer] Message Enc [facility] Medical Group Multispecialty Care - [address] [place] [address] Mela Elaine, MEDICAL RECORD SPECIALIST RE: Test Results Social History Tobacco Use [...] Assigned at Female 01/08/2021 9:43 AM MAINTENANCE GROUNDSKEEPER Legal Sex Female 5:13 PM CDT Gender Identity Female 01/08/2021 9:43 AM MAINTENANCE GROUNDSKEEPER Sexual Orientation Straight 01/08/2021 9: 43 AM MAINTENANCE GROUNDSKEEPER COVID-19 Exposure Response Date Recorded In the [...] Out 10/23/2021 10/23/2021 10/23/2021 9:25 AM MAINTENANCE GROUNDSKEEPER COVID-19 Rule Out 10/23/2021 10/23/2021 10/24/2021 12:21 AM MAINTENANCE GROUNDSKEEPER COVID-19 Rule Out 01/15/2022 01/15/2022 01/20/2022 10:53 AM MAINTENANCE GROUNDSKEEPER COVID-19 Rule Out 04/21/2022 04/21/2022 04/21/2022 11:42 AM CDT COVID-19 Rule Out 04/21/2022 04/21/2022 04/26/2022 7:02 AM CDT COVID-19 Rule Out 10/06/2022 10/06/2022 10/06/2022 1:21 PM MAINTENANCE GROUNDSKEEPER COVID-19 Rule Out 10/06/2022 10/06/2022 10/07/2022 3:34 PM MAINTENANCE GROUNDSKEEPER COVID-19 Rule Out 09/14/2023 09/14/2023 09/14/2023 3:48 PM CDT COVID-19 Rule Out 11/02/2024 11/02/2024 11/02/2024 4:03 PM MAINTENANCE GROUNDSKEEPER Assessment Noted Time PHQ-9 Depression Total Score: 22 021 9:18 AM CDT documented as of this encounter Care Teams Wind Turbine Engineer Relationship Specialty Start Date End Date Dasha Conway, INDUSTRIAL AERIAL INSTALLER- [address] [place] [address] PCP - General 11/02/24 documented as of this encounter
--- OUTSIDE RECORDS SUMMARY | 2025-08-03 17:01 | XMS_ITS | Encounter Summary ---
Author Organization [facility] Address [address] [place] [address] Care Team Providers Care Construction Pit Worker Name Role Phone Donovan Parks MD Unavailable Dasha Conway NP Primary Care Provider [phone] Encounter Details Date Type Department Care Team (Late st Contact Info) Description 06/03/2025 Results Follow-Up [facility] Primary Care at [address] [address] Dasha Conway NP [address] [place] [address] [address] [place] [address] [place] Abdomen Limited Social History Tobacco Use Types Packs/Day Years Used Date Smoking Tobacco: Former Cigarettes 1 31.7 S tarted: 11/21/1993 Smokeless Tobacco: Never Alcohol [...] on file Legal Sex Female 3:37 AM SCHEDULING SPECIALIST Gender Identity Female 10/02/2019 1:12 AM SCHEDULING SPECIALIST Sexual Orientation Straight 10/02/2019 1: 12 AM SCHEDULING SPECIALIST 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
--- OUTSIDE RECORDS SUMMARY | 2025-08-03 17:01 | XMS_ITS | Clinical Summary ---
Author Organization [facility] Address [address] [place] [address] Care Team Providers Care Suit Attendant Name Role Phone Dasha Conway Erlin [facility] Primary Care Provider [phone]- [phone] Allergies Active Allergy Reactions Criticality Noted Date [...] 1 01/17/2023 Other chronic pancreatitis (CMS/HCC HHS/HCC) 12/ Methylenetetrahydrofolate reductase deficiency ( [facility]) 11/16/2023 Angina pectoris, unspecified 11/16/2023 Pulmonary emphysema, unspeci fied emphysema type ([facility]) 09/14/2022 Abdominal pain 06/13/2022 Peripheral vascular disease, unspecified 022 Vertigo 01/29/2022 Type 2 diabetes mellitus wit h hyperglycemia, without long-term current use of insulin ([facility]) 11/03/2021 Overview (11/03/2021): On glipizide Assessment & Plan (02/02/2022 12:08 PM CDT): On Glipizide and controlled. Colitis 05/20/2021 Carpal tunnel syndrome of right wrist 01/27/2021 Shoulder pain, left 01/13/[address] 12/11/2020 History of esophageal stricture 12/01/2020 Overview (12/01/2020): Added automatically from request for surgery [id number] Regurgitation of food 12/01/2020 Overview (12/01/2020): Added automatically from request for surgery [id number] GERD (gastroesophageal reflux disease) Overview (12/01/2020): Added automatically from request for surgery [id number] Precordial pain 09/26/2020 H/O food allergy 09/09/2020 BMI 31.0-31.9,adult 09/09/2020 Dysphagia 08/06/2020 Overview (08/06/2020): Added automatically from request for surgery [id number] PTSD (post-traumatic stress disorder) 07/31/2020 Pes anserine bursitis 07/17/2020 Impaired glucose tolerance 03/13/2020 Iron deficiency 03/13/2020 Vitamin D deficiency 03/13/2020 Overview (10/06/2020): nml folate Hyperlipidemia associated wi th type 2 diabetes mellitus [facility] 03/12/2020 Other ill-defined heart diseases 03/12/2020 Overweight 03/12/2020 Palpitations 03/12/2020 Antiphospholipid syndrome ([facility]) 02/20/2020 Overview (02/02/2022): Controlled. On Xarelto 20 mg daily. Patient will follow with her wholesale agronomist as planned. Assessment & Plan (02/02/2022 12:09 PM CDT): Controlled. On Xarelto 20 mg daily. Patient will follow with her wholesale agronomist as planned. MTHFR mutation 01/28/2020 Overview (11/24/2020): Controlled. On Xarelto 20 mg daily. On Asprin. Patient will follow with her wholesale agronomist as planned. Alopecia 01/17/2020 Overview (08/31/2023): Alopecia;Recorded Elsewhere: No Location: [facility] Source: EHR Chronic: N Practice ID: [...] benefit and potential interaction with Dulera per vision specialist. Started LDN 4.5mg daily on 04/12/2020. Denies side effects but also denies any benefit at this time. Still complaining of severe generalized pain, fatigue, and insomnia. States dilaudid BID helps her hand pain. Recommend she follow up with pcp as they were originally prescribing this. Will also give referral to [facility] pain management. Continue LDN 4.5mg daily and give this more time tot take effect. Avoid Cymbalta and amitriptyline as patient reports suicidal ideation with antidepressants in the past. Failed gabapentin and had side effects to Lyrica. Follow up in 4-6 weeks. Sooner if needed. Discussed with Dr. Soler. Pelvic and perineal pain 08/09/2019 Overview (08/31/2023): Pelvic and perineal pain;Recorded Elsewhere: No Location: [facility] Source: EHR Chronic: N Practice ID: [id number] Billable Time: 09:45:00 AM IBS (irritable bowel syndrome) 06/15/2019 Syncope 06/10/2019 Chronic pain 05/21/2019 Nicotine dependence 09/21/2016 Factor V Leiden (HHS/HCC) 08/26/2015 Overview (02/02/2022): No acute concerns. Continue with Asprin and Xarelto 20 mg daily. Patient will follow up with wholesale agronomist for future appointments Assessment & Plan (02/02/2022 12:10 PM CDT): No acute concerns. Continue with Asprin and Xarelto 20 mg daily. Patient will follow up with wholesale agronomist for future appointments Hematologic disorder 08/23/2015 Schizoaffective disorder ([facility]) 04/12 Overview (11/24/2020): -Patient currently stable [...] Overview (08/31/2023): Endometriosis, unspecified;Recorded Elsewhere: No Location: [facility] Source: EHR Chronic: N Practice ID: [id number] Billable Time: 09:45:00 AM Arthritis 09/21/2010 Atypical bipolar affective disorder ([facility]) 08/06/2009 Overview (02/02/2022): -Patient currently stable [...] - future appointments with her psychiatrist Asthma ([facility]) 1980 Resolved Problems Problem Noted Date Diagnosed Date Resolved Date Acute pancreatitis ([facility]) 03/04/2021 04/03/2021 IGTN (ingrowing toe nail) 12/11/2020 Blurry vision, bilateral 08/07/2020 Acute nonintractable headach e, unspecified headache type 08/07/2020 08/20/2020 Weakness 08/07/2020 08/20/2020 Facial numbness 08/07/2020 09/09/2020 Hyperglycemia 08/06/2020 09/09/2020 Difficult or painful urination 06/23/2020 08/06/2020 Encounter for health-related screening 03/12/2020 10/13/2020 Pericardial effusion ([facility]) 10/04/2019 08/06/2020 Overview (06/23/2020): Overview: Echo (08/12/18): moderate pericardial effusion with no evidence of tamponade. EF 60-70% Echo (08/22/18) trivial (barely visible) pericardial effusion, EF 50-55% Anemia 06/15/2019 09/09/2020 COPD (chronic obstructive pu lmonary disease) ([facility]) 06/15/2019 09/09/2020 Tobacco abuse 06/15/2019 08/20/2020 Vaginal yeast infection 06/15/201901/2020 Hypomagnesemia 06/10/2019 09/09/2020 Injury of left knee [...] 08/23/2015 08/20/2020 Endometritis 04/04/2015 04/03/2021 Oligohydramnios antepartum ([facility]) 03/12/2015 06/23/2020 , normal, incidental ([facility]) 03/07/2015 06/23/2020 Lower abdominal pain 01/17/2015 020 , incidental ([facility]) 01/11/2015 06/23/2020 Post-op pain 08/24/2012 06/23/2020 Dysmenorrhea 08/14/2012 03/12/2022 Swallowing difficulty 06/20/20102019 Immunizations Immunization Administration Dates Next Due Fluzone 6 Months+ [...] Sex Assigned at Female 01/08/2021 9:43 AM BIN OPERATOR Legal Sex Female 5:13 PM CDT Gender Identity Female 01/08/2021 9:43 AM BIN OPERATOR Sexual Orientation Straight 01/08/2021 9: 43 AM BIN OPERATOR Last Filed Vital Signs Vital Sign Reading Time Taken Comments Blood Pressure 142/88 11/02/2024 6:07 PM BIN OPERATOR Pulse 74 11/02/2024 6:07 PM BIN OPERATOR Temperature 36.6 C (97.9 F) 11/02/2024 6:07 PM BIN OPERATOR Respiratory Rate 18 11/02/2024 6:07 PM BIN OPERATOR Oxygen Saturation 97% 11/02/2024 6:07 PM BIN OPERATOR Inhaled Oxygen Concentration - - Weight 61.2 kg (134 lb 14.7 oz) 11/02/2024 2:41 PM BIN OPERATOR Height 160 cm (5' 3) 11/02/2024 2:41 PM BIN OPERATOR Body Mass Index 23.9 11/02/2024 2:41 PM BIN OPERATOR Plan of Treatment Health Maintenance Due Date Last Done Comments ASCVD Statin 1980 Kidney Health Evaluation 1980 COVID-19 Vaccine (#1) 1985 Hepatitis B Vaccines (1 of 3 - 19+ 3-dose series) 1999 HPV Vaccines (1 - 3-dose SCDM series) 2007 Diabetes: Retinopathy Eye Exam 02/11/2024 02/10/2022, 09/02/2021, 10/15/2020 ASCVD LDL 11/16/2024 11/16/2023, 10/21, 01/30/2022, Additional history exists Annual Physical 11/16/2024 11/16/2023, 10/21, 11/03/2021, Additional history exists Lipid Panel 11/16/2024 11/16/2023, 10/21, 01/30/2022, Additional history exists PHQ-2 (Physician Sibley) 11/21/2024 11/16/2023 Mammogram Screening 02/16/2025 02/16/2023, 07/29/2021, 06/16/2021 DTaP, Tdap and Td Vaccines (2 - Td or Tdap) 03/13/2025 03/13/2015 Hemoglobin A1C 04/11/2025 10/12/2024, 10/22, 08/31/2023, Additional history exists Pneumococcal Vaccine: Pediatrics (0 to 5 Years) and At-Risk Patients (6 to 49 Years) (3 of 3 - PPSV23, PCV20 or PCV21) 10/09/2025 09/14/2022, 10/09/2020 Colorectal Cancer Screening Colonoscopy (10 Years) 10/26/2032 10/26/2022 Hepatitis C Completed 06/09/2022, 10/21/2020 Meningococcal B Vaccine Aged Out No l [...] independently General No Cary rdz, Joselito Saez RNorthodontic laboratory technician Procedure Name Priority Date/Time Associated Diagnosis Comments LIPID PANEL Routine 11/16/2023 10:34 AM BIN OPERATOR Annual physical exam HEMOGLOBIN, GLYCOSYLATED Routine 11/16/2023 10:34 AM BIN OPERATOR Annual physical exam MG DIAG IMPLANT W DEBRA MAGGIE DIGI Routine 02/16/2023 10:36 AM CDT Abnormal mammogram of both breasts COLONOSCOPY GENERIC (SCAN ORDER) 10/26/2022 HEPATITIS PANEL,ACUTE Routine 06/09/2022 11:03 AM CDT Chronic fatigue Elevated liver enzymes DIABETIC RETINOPATHY EXAM (NEGATIVE)(SCAN ORDER) Routine 02/10/2022 from Last 3 Months or Most Recently Relevant to Health Maintenance Results * (ABNORMAL) HEMOGLOBIN, GLYCOSYLATED (11/16/2023 10:34 AM BIN OPERATOR) HGB A1C 6.3(H) <5.7 % of total Hgb Moglue [facility] Comment: For someone without known diabetes, a [...] diabetes for children. 11/16/2023 10:3 4 AM BIN OPERATOR 11/17/2023 3:17 AM BIN OPERATOR Narrative Resulting Agency Comment Performing Organization Information: Site ID: [email or web address] Name: Payoneer Emanuel Address: [address] [place] [address] Director: Trinity Perez MD us Curtis Diaz MD LABORATORY Final Result [facility] [address] [place] [address], * (ABNORMAL) LIPID PANEL (11/16/2023 10:34 AM BIN OPERATOR) CHOLESTEROL 165 <200 mg/dL [facility] HDL 29(L) > OR = 50 mg/dL [facility] TRIGLYCERIDES 163(H) <150 mg/dL [facility] LDL (CALCULATED) 108(H) mg/dL (calc) [facility] Comment: Reference range: <100 Desirable range <100 mg/dL for primary prevention; <70 mg/dL for patients with CHD or diabetic patients with > or = 2 CHD risk factors. LDL-C is now calculated using the Chinedu-Nica calculation, which is a validated novel method providing better accuracy than the Friedewald equation in the estimation of LDL-C. Chinedu TATE et al. LINN. 2013;310(19): 8627-3054 (http://education.AltaVitas.TinyMob Games/faq/HCR885) CHOL/HDL RATIO 5.7(H) <5.0 (calc) [facility] NON HDL CHOLESTEROL 136(H) <130 mg/dL (calc) [facility] Comment: For patients with diabetes plus 1 major ASCVD risk factor, treating to a non-HDL-C goal of <100 mg/dL (LDL-C of <70 mg/dL) is considered a therapeutic option. 11/16/2023 10:3 4 AM BIN OPERATOR 11/17/2023 3:17 AM BIN OPERATOR Narrative Resulting Agency Comment Performing Organization Information: Site ID: CAR[facility] Name: Norbert Castellanos Address: [address] [place] [address] Director: Trinity Perez MD Curtis Diaz MD LABORATORY Final Result [facility] [address] [place] [address], [place] * MG DIAG IMPLANT W DEBRA MAGGIE DIGI (02/16/2023 10:36 AM CDT) Anatomical Region Laterality Modality Breast Bilateral Mammography 02/16/2023 11:2 5 AM CDT Narrative 02/16/2023 11:29 AM CDT EXAMINATION: Digital bilateral diagnostic mammogram with 3-D tomography and right breast ultrasound [id number] EXAM DATE/TIME: 02/16/2023 10:26 AM REASON FOR [...] Curtis Diaz MD MAMMO Final Result * COLONOSCOPY GENERIC (10/26/2022) 10/26/2022 [facility] Scanned SCANNING Final Resu lt * HEPATITIS PANEL,ACUTE (06/09/2022 11:03 AM CDT) HAV IGM NON-REACTI VE NON-REACT DAVE [facility] Comment: For additional information, please refer to http://Wattblock.SoloPower/faq/YGB898 (This link is being provided for informational/ [...] a test for HCV RNA (test code 10958) is suggested. For additional information please refer to http://Wattblock.SoloPower/faq/ALL67z1 (This link is being provided for informational/ educational purposes only.) 06/09/2022 11:0 3 AM CDT 06/10/2022 6:17 AM CDT Curtis Diaz MD LABORATORY Final Result [facility] [address] [place] [address] * DIABETIC RETINOPATHY EXAM (NEGATIVE)(SCAN) (02/10/2022) us Documents Scanned SCANNING Final Result [facility] from Last 3 Months or Most Recently Relevant to Health Maintenance Additional Health Concerns Infection Onset Date Last Indicated 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 06/30/2017 Insurance MEDICAID MEDICAID [facility] Advance Directives * Full Code (Latest Code Status on File) Date Activated Date Inactivated Comments 06/13/2022 11:37 PM 06/14/2022 5:06 PM * Full Code Date Activated Date Inactivated Comments 01/29/2022 8:23 PM 01/31/2022 12:48 PM Care Teams Suit Attendant Relationship Specialty Start Date End Date Dasha Conway, DOOR TO DOOR SELLING AGENT-BC [address] [place] [address] PCP - General 11/02/24
--- OUTSIDE RECORDS SUMMARY | 2025-08-03 17:01 | XMS_ITS | Encounter Summary ---
Author Organization [facility] Address [facility] [place] [address] Care Team Providers Care Supervisor Tank Cleaning Name Role Phone Dasha Conway [facility] Primary Care Provider [phone]- [phone] Encounter Details Date Type Department Care Team (Late st Contact Info) Description 03/25/2021 DocOnYout Message Enc [facility] Medical Group Multispecialty Care - [address] [place] [address] Mela Elaine, TELESERVICES REPRESENTATIVE RE: Appointment Social History Tobacco Use Types [...] Sex Assigned at Female 01/08/2021 9:43 AM NURSING SERVICES MANAGER Legal Sex Female 5:13 PM CDT Gender Identity Female 01/08/2021 9:43 AM NURSING SERVICES MANAGER Sexual Orientation Straight 01/08/2021 9: 43 AM NURSING SERVICES MANAGER COVID-19 Exposure Response Date Recorded [...] Rule Out 10/23/2021 10/23/2021 10/23/2021 9:25 AM NURSING SERVICES MANAGER COVID-19 Rule Out 10/23/2021 10/23/2021 10/24/2021 12:21 AM NURSING SERVICES MANAGER COVID-19 Rule Out 01/15/2022 01/15/2022 01/20/2022 10:53 AM NURSING SERVICES MANAGER COVID-19 Rule Out 04/21/2022 04/21/2022 04/21/2022 11:42 AM CDT COVID-19 Rule Out 04/21/2022 04/21/2022 04/26/2022 7:02 AM CDT COVID-19 Rule Out 10/06/2022 10/06/2022 10/06/2022 1:21 PM NURSING SERVICES MANAGER COVID-19 Rule Out 10/06/2022 10/06/2022 10/07/2022 3:34 PM NURSING SERVICES MANAGER COVID-19 Rule Out 09/14/2023 09/14/2023 09/14/2023 3:48 PM CDT COVID-19 Rule Out 11/02/2024 11/02/2024 11/02/2024 4:03 PM NURSING SERVICES MANAGER Assessment Noted Time PHQ-9 Depression Total Score: 020 1:12 PM CDT documented as of this encounter Care Teams Supervisor Tank Cleaning Relationship Specialty Start Date End Date Dasha Conway, PEST CONTROLLER- [address] [place] [address] PCP - General 11/02/24 documented as of this encounter
--- OUTSIDE RECORDS SUMMARY | 2025-08-03 17:01 | XMS_ITS | Encounter Summary ---
Author Organization [facility] Address [facility] [place] [address] Care Team Providers Care Tooling Engineering Tech Name Role Phone Dasha Conway Erlin [facility] Primary Care Provider [phone]- [phone] Encounter Details Date Type Department Care Team (Late st Contact Info) Description 04/01/2024 Prime Focust Message Enc [facility] Medical Group Multispecialty Care - [address] [address] [address] [place] [address] Curtis Diaz MD [address] [place] [address] [address] [place] [address] Fluconazole Social History Tobacco Use Types Packs/Day [...] Sex Assigned at Female 01/08/2021 9:43 AM ELECTRIC METER TECHNICIAN Legal Sex Female 5:13 PM CDT Gender Identity Female 01/08/2021 9:43 AM ELECTRIC METER TECHNICIAN Sexual Orientation Straight 01/08/2021 9: 43 AM ELECTRIC METER TECHNICIAN documented as of this encounter Functional [...] Rule Out 11/02/2024 11/02/2024 11/02/2024 4:03 PM ELECTRIC METER TECHNICIAN Assessment Noted Time PHQ-9 Depression Total Score: 7 11/16/20 23 9:57 AM ELECTRIC METER TECHNICIAN documented as of this encounter Care Teams Tooling Engineering Tech Relationship Specialty Start Date End Date Dasha Conway, VICE PRESIDENT SAFETY- [address] [place] [address] PCP - General 11/02/24 documented as of this encounter
--- OUTSIDE RECORDS SUMMARY | 2025-08-03 17:01 | XMS_ITS | Encounter Summary ---
Author Organization [facility] Address [facility] [place] [address] Care Team Providers Care Lean Leader Name Role Phone Dasha Conway [facility] Primary Care Provider [phone]- [phone] Encounter Details Date Type Department Care Team (Latest Contact Info) Description 04/01/2021 cfgAdvancet Message Enc [facility] Medical Group Multispecialty Care - [place] [address] [place] [address] [address] [address] [place] [address] [place] [address] [phone] [id number] RE: Follow Up/Update Social History Tobacco Use [...] Sex Assigned at Female 01/08/2021 9:43 AM SHANK ARCHER Legal Sex Female 5:13 PM CDT Gender Identity Female 01/08/2021 9:43 AM SHANK ARCHER Sexual Orientation Straight 01/08/2021 9: 43 AM SHANK ARCHER COVID-19 Exposure Response Date Recorded In the [...] Rule Out 10/23/2021 10/23/2021 10/23/2021 9:25 AM SHANK ARCHER COVID-19 Rule Out 10/23/2021 10/23/2021 10/24/2021 12:21 AM SHANK ARCHER COVID-19 Rule Out 01/15/2022 01/15/2022 01/20/2022 10:53 AM SHANK ARCHER COVID-19 Rule Out 04/21/2022 04/21/2022 04/21/2022 11:42 AM CDT COVID-19 Rule Out 04/21/2022 04/21/2022 04/26/2022 7:02 AM CDT COVID-19 Rule Out 10/06/2022 10/06/2022 10/06/2022 1:21 PM SHANK ARCHER COVID-19 Rule Out 10/06/2022 10/06/2022 10/07/2022 3:34 PM SHANK ARCHER COVID-19 Rule Out 09/14/2023 09/14/2023 09/14/2023 3:48 PM CDT COVID-19 Rule Out 11/02/2024 11/02/2024 11/02/2024 4:03 PM SHANK ARCHER Assessment Noted Time PHQ-9 Depression Total Score: 22 021 9:18 AM CDT documented as of this encounter Care Teams Lean Leader Relationship Specialty Start Date End Date Dasha Conway FNP- [address] [place] [address] PCP - General 11/02/24 documented as of this encounter
--- OUTSIDE RECORDS SUMMARY | 2025-08-03 17:01 | XMS_ITS | Encounter Summary ---
Author Organization [facility] Address [address] [place] [address] Care Team Providers Care Fur Pointer Name Role Phone Esteban Soler MD Unavailable [phone] Curtis Diaz MD Primary Care Provider [phone] Donovan Parks MD Unavailable Dasha Conway NP Primary Care Provider [phone] Dasha Conway REGIONAL ACCOUNT DIRECTOR Primary Care Provider [phone] Encounter Details Date Type Department Care Team (Late st Contact Info) Description 08/11/2018 Orders Only [facility] Information Management [address] [place] [address] Scanning, Provider Social History Tobacco Use Types Packs/Day Years Used Date Smoking Tobacco: Every Day Cigarettes Smokeless Tobacco: Never Alcohol Use Standard Drinks/Week Comments No 0 (1 standard drink = 0.6 oz pur e alcohol) Comments Unknown Sex and Gender Information Value Date Recorded Sex Assigned at Not on file Legal Sex Female 3:37 AM BAR EXAMINER Gender Identity Female 10/02/2019 1:12 AM BAR EXAMINER Sexual Orientation Straight 10/02/2019 1: 12 AM BAR EXAMINER documented as of this encounter Plan of Treatment Not on file documented as of this encounter Procedures Procedure Name Priority Date/Time Associated Diagnosis Comments SCAN - RADIOLOGY/IMAGING 08/11/2018 documented in this encounter Results * SCAN - RADIOLOGY/IMAGING (08/11/2018) Anatomical Region Laterality Modality Other us Provider Scanning Edited Result - Final documented in this encounter Visit Diagnoses Not on filedocumented in this encounter Care Teams Fur Pointer Relationship Specialty Start Date End Date Curtis Diaz MD [address] [place] [address] PCP - General Internal Medicine 06/12/21 08/22/24 Dasha Conway NP [address] [place] [address] PCP - General Family Medicine 08/23/24 05/01/25 Dasha Conway NP [address] [facility] [address] [place], [place] [address] PCP - General Family Medicine 05/02/25 Esteban Soler MD [address] [facility] [address] [place] [address] Consulting Physician Rheumatology 09/10/19 06/11/21 Donovan Parks MD [address] [place] [address] Referring Physician Gastroenterology 06/12/21 documented as of this encounter
--- OUTSIDE RECORDS SUMMARY | 2025-08-03 17:01 | XMS_ITS | Encounter Summary ---
Author Organization [facility] Address [facility] [place] [address] Care Team Providers Care Government Sales Manager Name Role Phone Dasha Conway [facility] Primary Care Provider [phone] Encounter Details Date Type Department Care Team (Late st Contact Info) Description 04/04/[address] [facility] Medical Group Multispecialty Care - [address] [place] [address] [facility] Provider culture Social History Tobacco Use [...] Sex Assigned at Female 01/08/2021 9:43 AM PIGS FEET FINISHER Legal Sex Female 5:13 PM CDT Gender Identity Female 01/08/2021 9:43 AM PIGS FEET FINISHER Sexual Orientation Straight 01/08/2021 9: 43 AM PIGS FEET FINISHER documented as of this encounter Functional Status [...] Date Author Status No 06/13/2022 10:59 PM Dneis Murphy RN Active documented in this encounter [...] Rule Out 11/02/2024 11/02/2024 11/02/2024 4:03 PM PIGS FEET FINISHER Assessment Noted Time PHQ-9 Depression Total Score: 7 11/16/20 23 9:57 AM PIGS FEET FINISHER documented as of this encounter Care Teams Government Sales Manager Relationship Specialty Start Date End Date Dasha Conway, DEPOT AGENT- [address] [place] [address] PCP - General 11/02/24 documented as of this encounter
--- OUTSIDE RECORDS SUMMARY | 2025-08-03 17:01 | XMS_ITS | Encounter Summary ---
Author Organization [facility] Address [facility] [place] [address] Care Team Providers Care Political Research Scientist Name Role Phone Dasha Conway Erlin [facility] Primary Care Provider [phone] Encounter Details Date Type Department Care Team (Late st Contact Info) Description 03/24/2021 GetNotest Message Enc [facility] Medical Group Multispecialty Care - [place] [address] [address] [place], [place] [id number] Curtis Diaz MD [address] [place] [address] 157 [place], [place] [phone] Question Social History Tobacco Use Types Packs/Day [...] Assigned at Female 01/08/2021 9:43 AM NETWORK PROGRAMMER Legal Sex Female 5:13 PM CDT Gender Identity Female 01/08/2021 9:43 AM NETWORK PROGRAMMER Sexual Orientation Straight 01/08/2021 9: 43 AM NETWORK PROGRAMMER COVID-19 Exposure Response Date Recorded In [...] Rule Out 10/23/2021 10/23/2021 10/23/2021 9:25 AM NETWORK PROGRAMMER COVID-19 Rule Out 10/23/2021 10/23/2021 10/24/2021 12:21 AM NETWORK PROGRAMMER COVID-19 Rule Out 01/15/2022 01/15/2022 01/20/2022 10:53 AM NETWORK PROGRAMMER COVID-19 Rule Out 04/21/2022 04/21/2022 04/21/2022 11:42 AM CDT COVID-19 Rule Out 04/21/2022 04/21/2022 04/26/2022 7:02 AM CDT COVID-19 Rule Out 10/06/2022 10/06/2022 10/06/2022 1:21 PM NETWORK PROGRAMMER COVID-19 Rule Out 10/06/2022 10/06/2022 10/07/2022 3:34 PM NETWORK PROGRAMMER COVID-19 Rule Out 09/14/2023 09/14/2023 09/14/2023 3:48 PM CDT COVID-19 Rule Out 11/02/2024 11/02/2024 11/02/2024 4:03 PM NETWORK PROGRAMMER Assessment Noted Time PHQ-9 Depression Total Score: 13 020 1:12 PM CDT documented as of this encounter Care Teams Political Research Scientist Relationship Specialty Start Date End Date Dasha Conway FNP-STEPH [address] [place] [address] PCP - General 11/02/24 documented as of this encounter
--- OUTSIDE RECORDS SUMMARY | 2025-08-03 17:01 | XMS_ITS | Encounter Summary ---
Author Organization [facility] Address [address] [place] [address] Phone Care Team Providers Care Decorating Machine Operator Name Role Phone Curtis Diaz MD Primary Care Provider [phone] Donovan Parks MD Unavailable Dasha Conway NP Primary Care Provider [phone] Dasha Conway NP Primary Care Provider [phone] Encounter Details Date Type Department Care Team (Late st Contact Info) Description 08/09/2023 Orders Only [facility] Scanning, Provider Social History Tobacco Use Types Packs/Day Years Used Date Smoking Tobacco: Every Day Cigarettes 1 31.7 Started: 11/21/1993 Smokeless Tobacco: Never Alcohol Use Standard Drinks/Week Comments No 0 (1 standard drink = 0.6 oz pur e alcohol) Comments No Sex and Gender Information Value Date Recorded Sex Assigned at Not on file Legal Sex Female 3:37 AM GALVANIZER Gender Identity Female 10/02/2019 1:12 AM GALVANIZER Sexual Orientation Straight 10/02/2019 1: 12 AM GALVANIZER Occupation Industry Job Start Date Job End [...] on filedocumented in this encounter Care Teams Decorating Machine Operator Relationship Specialty Start Date End Date Curtis Diaz MD [address] [place] [address] PCP - General Internal Medicine 06/12/21 08/22/24 Dasha Conway NP [address] [place] [address] PCP - General Family Medicine 08/23/24 05/01/25 Dasha Conway NP [address] [place] [address] [address] [place], [place] [phone] PCP - General Family Medicine 05/02/25 Donovan Parks MD [address] [place] [address] Referring Physician Gastroenterology 06/12/21 documented as of this encounter
--- OUTSIDE RECORDS SUMMARY | 2025-08-03 17:01 | XMS_ITS | Encounter Summary ---
Author Organization [facility] Address [facility] [place] [address] Care Team Providers Care Eviction Specialist Name Role Phone Dasha Conway [facility] Primary Care Provider [phone] Encounter Details Date Type Department Care Team (Late st Contact Info) Description 05/04/2024 Ailolat Message Enc [facility] Medical Group Multispecialty Care - [place] [address] [place], [place] [phone] Melida Wiley, PROCESS CONTROL TECH [address] [place] [address] Itraconazole Social History Tobacco Use Types Packs/Day [...] Sex Assigned at Female 01/08/2021 9:43 AM SAFETY INVESTIGATOR/CAUSE ANALYST Legal Sex Female 5:13 PM CDT Gender Identity Female 01/08/2021 9:43 AM SAFETY INVESTIGATOR/CAUSE ANALYST Sexual Orientation Straight 01/08/2021 9: 43 AM SAFETY INVESTIGATOR/CAUSE ANALYST documented as of this encounter Functional [...] Assessment Author Status No 06/13/2022 10:59 PM CDDenis Fields RN Active * Because of a physical, [...] Rule Out 11/02/2024 11/02/2024 11/02/2024 4:03 PM SAFETY INVESTIGATOR/CAUSE ANALYST Assessment Noted Time PHQ-9 Depression Total Score: 7 11/16/20 23 9:57 AM SAFETY INVESTIGATOR/CAUSE ANALYST documented as of this encounter Care Teams Eviction Specialist Relationship Specialty Start Date End Date Dasha Conway, CHRISTINE- [address] [place] [address] PCP - General 11/02/24 documented as of this encounter
--- OUTSIDE RECORDS SUMMARY | 2025-08-03 17:01 | XMS_ITS | Encounter Summary ---
Author Organization [facility] Address [facility] [place] [address] Care Team Providers Care Packaging Materials Inspector Name Role Phone Dasha Conway [facility] Primary Care Provider [phone] Encounter Details Date Type Department Care Team (Latest Contact Info) Description 03/16/2021 Intradigm Corporationhart Message Enc [facility] Medical Group Multispecialty Care - [place] [address] [place] [address] [address] [place] [address] [place] [address] [place] [address] 157 [place], [place] [phone] RE: Medication Questions Social History Tobacco Use [...] Sex Assigned at Female 01/08/2021 9:43 AM SOCIOLOGY INSTRUCTOR Legal Sex Female 5:13 PM CDT Gender Identity Female 01/08/2021 9:43 AM SOCIOLOGY INSTRUCTOR Sexual Orientation Straight 01/08/2021 9: 43 AM SOCIOLOGY INSTRUCTOR COVID-19 Exposure Response Date Recorded In [...] Rule Out 10/23/2021 10/23/2021 10/23/2021 9:25 AM SOCIOLOGY INSTRUCTOR COVID-19 Rule Out 10/23/2021 10/23/2021 10/24/2021 12:21 AM SOCIOLOGY INSTRUCTOR COVID-19 Rule Out 01/15/2022 01/15/2022 01/20/2022 10:53 AM SOCIOLOGY INSTRUCTOR COVID-19 Rule Out 04/21/2022 04/21/2022 04/21/2022 11:42 AM CDT COVID-19 Rule Out 04/21/2022 04/21/2022 04/26/2022 7:02 AM CDT COVID-19 Rule Out 10/06/2022 10/06/2022 10/06/2022 1:21 PM SOCIOLOGY INSTRUCTOR COVID-19 Rule Out 10/06/2022 10/06/2022 10/07/2022 3:34 PM SOCIOLOGY INSTRUCTOR COVID-19 Rule Out 09/14/2023 09/14/2023 09/14/2023 3:48 PM CDT COVID-19 Rule Out 11/02/2024 11/02/2024 11/02/2024 4:03 PM SOCIOLOGY INSTRUCTOR Assessment Noted Time PHQ-9 Depression Total Score: 020 1:12 PM CDT documented as of this encounter Care Teams Packaging Materials Inspector Relationship Specialty Start Date End Date Dasha Conway, FEATURES EDITOR- [address] [place] [address] PCP - General 11/02/24 documented as of this encounter"
[2025-08-03 17:23] LABS: Hematocrit 38.9 % (37.0-47.0); Hemoglobin 13.8 g/dL (12.0-15.0); Immature Granulocyte Percent A 0.5 % (0-0.5); Lymphocytes Absolute Auto 2.25 K/mm3 (0.9-3.2); Mean Corpuscular HGB Conc 35.5 g/dl (32-36); Mean Corpuscular Hemoglobin 32.4 pg (26-34); Mean Corpuscular Volume 91.3 fl (80-100); Nucleated Red Blood Cells Absolute Auto 0.000 K/mm3 (0.0-0.012); Nucleated Red Blood Cells Perc 0.0 % (0.0-0.2); Platelet Count Result 303 k/mm3 (150-375); Red Blood Count 4.26 M/mm3 (4.2-5.4); White Blood Count 9.7 K/mm3 (4.5-10.0)
[2025-08-03 17:37] LABS: Alanine Aminotransferase 39 U/L (6-35); Albumin Level 4.6 g/dL (3.5-5.1); Alkaline Phosphatase 70 U/L (38-126); Anion Gap 15 mmol/L (4-12); Aspartate Amino Transferase 67 U/L (14-36); Bilirubin,Total 0.4 mg/dL (0.2-1.3); Blood Urea Nitrogen 4 mg/dL (7-17); Calcium 9.3 mg/dL (8.4-10.2); Carbon Dioxide 20 mmol/L (22-30); Chloride 103 mmol/L (98-107); Estimated CRCL calculation 80 ml/min; Estimated Glomerular Filt Rate > 60; Glucose 115 mg/dL (65-110); Lipase 95 U/L (23-300); Potassium 3.4 mmol/L (3.4-5.0); Sodium 138 mmol/L (137-145); Total Protein 8.7 g/dL (6.3-8.2)
[2025-08-03 17:47] LABS: Troponin I < 0.012 ng/mL (0.000-0.034)
--- OUTSIDE RECORDS SUMMARY | 2025-08-03 19:34 | XMS_ITS | Encounter Summary ---
Author Organization [facility] Address [facility] [place] [address] Care Team Providers Care Core Feeder Name Role Phone Dasha Conway Erlin [facility] Primary Care Provider [phone] Encounter Details Date Type Department Care Team (Late st Contact Info) Description 04/08/2021 Chronogolfhart Message Enc [facility] Medical Group Multispecialty Care - [place] [address] [address] [place], [place] [address] [place] [address] [place] [address] 157 [place] [address] RE: Question Social History Tobacco Use Types [...] Sex Assigned at Female 01/08/2021 9:43 AM TOOL SHAPER SETUP OPERATOR Legal Sex Female 5:13 PM CDT Gender Identity Female 01/08/2021 9:43 AM TOOL SHAPER SETUP OPERATOR Sexual Orientation Straight 01/08/2021 9: 43 AM TOOL SHAPER SETUP OPERATOR COVID-19 Exposure Response Date Recorded In [...] Rule Out 10/23/2021 10/23/2021 10/23/2021 9:25 AM TOOL SHAPER SETUP OPERATOR COVID-19 Rule Out 10/23/2021 10/23/2021 10/24/2021 12:21 AM TOOL SHAPER SETUP OPERATOR COVID-19 Rule Out 01/15/2022 01/15/2022 01/20/2022 10:53 AM TOOL SHAPER SETUP OPERATOR COVID-19 Rule Out 04/21/2022 04/21/2022 04/21/2022 11:42 AM CDT COVID-19 Rule Out 04/21/2022 04/21/2022 04/26/2022 7:02 AM CDT COVID-19 Rule Out 10/06/2022 10/06/2022 10/06/2022 1:21 PM TOOL SHAPER SETUP OPERATOR COVID-19 Rule Out 10/06/2022 10/06/2022 10/07/2022 3:34 PM TOOL SHAPER SETUP OPERATOR COVID-19 Rule Out 09/14/2023 09/14/2023 09/14/2023 3:48 PM CDT COVID-19 Rule Out 11/02/2024 11/02/2024 11/02/2024 4:03 PM TOOL SHAPER SETUP OPERATOR Assessment Noted Time PHQ-9 Depression Total Score: 021 9:18 AM CDT documented as of this encounter Care Teams Core Feeder Relationship Specialty Start Date End Date Dasha Conway, CHRISTINE-STEPH [address] [place] [address] PCP - General 11/02/24 documented as of this encounter
--- OUTSIDE RECORDS SUMMARY | 2025-08-03 19:34 | XMS_ITS | Encounter Summary ---
Author Organization [facility] Address [facility] [place] [address] Care Team Providers Care Mortgage Processing Clerk Name Role Phone Dasha Conway Erlin [facility] Primary Care Provider [phone]- [phone] Encounter Details Date Type Department Care Team (Late st Contact Info) Description 05/06/2021 PrintEcot Message Enc [facility] Medical Group Multispecialty Care - [place] [address] [address] [place], [place] [address] Curtis Diaz MD [address] [place] [address] 157 [place] [address] update Social History Tobacco Use Types Packs/Day [...] Sex Assigned at Female 01/08/2021 9:43 AM DINNER COOK Legal Sex Female 5:13 PM CDT Gender Identity Female 01/08/2021 9:43 AM DINNER COOK Sexual Orientation Straight 01/08/2021 9: 43 AM DINNER COOK COVID-19 Exposure Response Date Recorded In the [...] Rule Out 10/23/2021 10/23/2021 10/23/2021 9:25 AM DINNER COOK COVID-19 Rule Out 10/23/2021 10/23/2021 10/24/2021 12:21 AM DINNER COOK COVID-19 Rule Out 01/15/2022 01/15/2022 01/20/2022 10:53 AM DINNER COOK COVID-19 Rule Out 04/21/2022 04/21/2022 04/21/2022 11:42 AM CDT COVID-19 Rule Out 04/21/2022 04/21/2022 04/26/2022 7:02 AM CDT COVID-19 Rule Out 10/06/2022 10/06/2022 10/06/2022 1:21 PM DINNER COOK COVID-19 Rule Out 10/06/2022 10/06/2022 10/07/2022 3:34 PM DINNER COOK COVID-19 Rule Out 09/14/2023 09/14/2023 09/14/2023 3:48 PM CDT COVID-19 Rule Out 11/02/2024 11/02/2024 11/02/2024 4:03 PM DINNER COOK Assessment Noted Time PHQ-9 Depression Total Score: 22 021 9:18 AM CDT documented as of this encounter Care Teams Mortgage Processing Clerk Relationship Specialty Start Date End Date Dasha Conway FNP-STEPH [address] [place] [address] PCP - General 11/02/24 documented as of this encounter
--- OUTSIDE RECORDS SUMMARY | 2025-08-03 19:35 | XMS_ITS | Encounter Summary ---
Author Organization [facility] Address [facility] [place] [address] Care Team Providers Care Physician Allergist Immunologist Name Role Phone Dasha Conway Erlin [facility] Primary Care Provider [phone]- [phone] Encounter Details Date Type Department Care Team (Late st Contact Info) Description 06/15/[address] [facility] Medical Group Multispecialty Care - [place] [address] [address] [place], [place] [address] [place] [address] [place] [address] 157 [place] [address] Dmitry Social History Tobacco Use Types Packs/Day [...] Assigned at Female 01/08/2021 9:43 AM CONTROL PANEL BUILDER Legal Sex Female 5:13 PM CDT Gender Identity Female 01/08/2021 9:43 AM CONTROL PANEL BUILDER Sexual Orientation Straight 01/08/2021 9: 43 AM CONTROL PANEL BUILDER COVID-19 Exposure Response Date Recorded In the [...] Out 10/06/2022 10/06/2022 10/06/2022 1:21 PM CONTROL PANEL BUILDER COVID-19 Rule Out 10/06/2022 10/06/2022 10/07/2022 3:34 PM CONTROL PANEL BUILDER COVID-19 Rule Out 09/14/2023 09/14/2023 09/14/2023 3:48 PM CDT COVID-19 Rule Out 11/02/2024 11/02/2024 11/02/2024 4:03 PM CONTROL PANEL BUILDER Assessment Noted Time PHQ-9 Depression Total Score: 4 05/12/20 22 3:34 PM CDT documented as of this encounter Care Teams Physician Allergist Immunologist Relationship Specialty Start Date End Date Dasha Conway FNP- [address] [place] [address] PCP - General 11/02/24 documented as of this encounter
--- OUTSIDE RECORDS SUMMARY | 2025-08-03 19:35 | XMS_ITS | Encounter Summary ---
Author Organization [facility] Address [facility] [place] [address] Care Team Providers Care Extrusion Die Corrector Name Role Phone Dasha Conway Erlin [facility] Primary Care Provider [phone]- [phone] Encounter Details Date Type Department Care Team (Late st Contact Info) Description 05/17/2022 Mural.lyhart Message Enc [facility] Medical Group Multispecialty Care - [place] [address] [place] [address] [address] [place], [place] [address] [place] [address] [place] [address] 157 [place] [address] Today's visit Social History Tobacco Use Types [...] Sex Assigned at Female 01/08/2021 9:43 AM NAIL MAKING MACHINE SETTER Legal Sex Female 5:13 PM CDT Gender Identity Female 01/08/2021 9:43 AM NAIL MAKING MACHINE SETTER Sexual Orientation Straight 01/08/2021 9: 43 AM NAIL MAKING MACHINE SETTER COVID-19 Exposure Response Date Recorded In the last 10 days, have asif rodriguez been in contact with someone who was confirmed or suspected to have Coronavirus/COVID-19? No / Unsure 05/17/2022 8:13 AM CDT documented as of this encounter Functional Status * RETIRED Are you deaf or do you have serious difficulty hearing Answer Date of Assessment Author Status No 01/29/2022 10:15 PM NAIL MAKING MACHINE SETTER Acti ve * RETIRED Are you blind or do you have serious difficulty seeing, even when wearing glasses? Answer Date of Assessment Author Status No 01/29/2022 10:15 PM NAIL MAKING MACHINE SETTER Acti ve * Do you have serious [...] AM CDT Curtis Diaz MD Active * [place] Suicide Severity Rating Scale (Screener/Recent Self-Report) Question [...] Rule Out 10/06/2022 10/06/2022 10/06/2022 1:21 PM NAIL MAKING MACHINE SETTER COVID-19 Rule Out 10/06/2022 10/06/2022 10/07/2022 3:34 PM NAIL MAKING MACHINE SETTER COVID-19 Rule Out 09/14/2023 09/14/2023 09/14/2023 3:48 PM CDT COVID-19 Rule Out 11/02/2024 11/02/2024 11/02/2024 4:03 PM NAIL MAKING MACHINE SETTER Assessment Noted Time PHQ-9 Depression Total Score: 4 05/12/20 3:34 PM CDT documented as of this encounter Care Teams Extrusion Die Corrector Relationship Specialty Start Date End Date Dasha Conway, WATER FILTRATION TECHNICIAN-BC [address] [place] [address] PCP - General 11/02/24 documented as of this encounter
--- OUTSIDE RECORDS SUMMARY | 2025-08-03 19:35 | XMS_ITS | Encounter Summary ---
Author Organization [facility] Address [facility] [place] [address] Care Team Providers Care Compliance Spec Name Role Phone Dasha Conway [facility] Primary Care Provider [phone]- [phone] Encounter Details Date Type Department Care Team (Late st Contact Info) Description 08/11/2021 [employer] Grouphart Message Enc [facility] Medical Group Multispecialty Care - [place] [address] [address] [place], [place] [address] Curtis Diaz MD [address] [place] [address] 157 [place] [address] RE: fax number Social History Tobacco Use [...] Sex Assigned at Female 01/08/2021 9:43 AM APPLICATION MANAGER Legal Sex Female 5:13 PM CDT Gender Identity Female 01/08/2021 9:43 AM APPLICATION MANAGER Sexual Orientation Straight 01/08/2021 9: 43 AM APPLICATION MANAGER COVID-19 Exposure Response Date Recorded In [...] Rule Out 10/23/2021 10/23/2021 10/23/2021 9:25 AM APPLICATION MANAGER COVID-19 Rule Out 10/23/2021 10/23/2021 10/24/2021 12:21 AM APPLICATION MANAGER COVID-19 Rule Out 01/15/2022 01/15/2022 01/20/2022 10:53 AM APPLICATION MANAGER COVID-19 Rule Out 04/21/2022 04/21/2022 04/21/2022 11:42 AM CDT COVID-19 Rule Out 04/21/2022 04/21/2022 04/26/2022 7:02 AM CDT COVID-19 Rule Out 10/06/2022 10/06/2022 10/06/2022 1:21 PM APPLICATION MANAGER COVID-19 Rule Out 10/06/2022 10/06/2022 10/07/2022 3:34 PM APPLICATION MANAGER COVID-19 Rule Out 09/14/2023 09/14/2023 09/14/2023 3:48 PM CDT COVID-19 Rule Out 11/02/2024 11/02/2024 11/02/2024 4:03 PM APPLICATION MANAGER Assessment Noted Time PHQ-9 Depression Total Score: 021 9:18 AM CDT documented as of this encounter Care Teams Compliance Spec Relationship Specialty Start Date End Date Dasha Conway, NUCLEAR OFFICER-STEPH [address] [place] [address] PCP - General 11/02/24 documented as of this encounter
--- OUTSIDE RECORDS SUMMARY | 2025-08-03 19:35 | XMS_ITS | Encounter Summary ---
Author Organization [facility] Address [facility]ly [facility] [place] [address] Care Team Providers Care Wireline Supervisor Name Role Phone Dasha Conway Erlin [facility] Primary Care Provider +1- [phone] Encounter Details Date Type Department Care Team (Late st Contact Info) Description 08/14/2021 Invenergyhart Message Enc [facility] Medical Group Multispecialty Care - [place] [address] [address] [place], [place] [phone] [place] [address] [place] [address] 157 [place] [address] A1C results Social History Tobacco Use Types [...] Sex Assigned at Female 01/08/2021 9:43 AM GUYLINE OPERATOR Legal Sex Female 5:13 PM CDT Gender Identity Female 01/08/2021 9:43 AM GUYLINE OPERATOR Sexual Orientation Straight 01/08/2021 9: 43 AM GUYLINE OPERATOR COVID-19 Exposure Response Date Recorded In [...] Rule Out 10/23/2021 10/23/2021 10/23/2021 9:25 AM GUYLINE OPERATOR COVID-19 Rule Out 10/23/2021 10/23/2021 10/24/2021 12:21 AM GUYLINE OPERATOR COVID-19 Rule Out 01/15/2022 01/15/2022 01/20/2022 10:53 AM GUYLINE OPERATOR COVID-19 Rule Out 04/21/2022 04/21/2022 04/21/2022 11:42 AM CDT COVID-19 Rule Out 04/21/2022 04/21/2022 04/26/2022 7:02 AM CDT COVID-19 Rule Out 10/06/2022 10/06/2022 10/06/2022 1:21 PM GUYLINE OPERATOR COVID-19 Rule Out 10/06/2022 10/06/2022 10/07/2022 3:34 PM GUYLINE OPERATOR COVID-19 Rule Out 09/14/2023 09/14/2023 09/14/2023 3:48 PM CDT COVID-19 Rule Out 11/02/2024 11/02/2024 11/02/2024 4:03 PM GUYLINE OPERATOR Assessment Noted Time PHQ-9 Depression Total Score: 22 021 9:18 AM CDT documented as of this encounter Care Teams Wireline Supervisor Relationship Specialty Start Date End Date Dasha Conway FNP-STEPH [address] [place] [address] PCP - General 11/02/24 documented as of this encounter
--- OUTSIDE RECORDS SUMMARY | 2025-08-03 19:35 | XMS_ITS | Encounter Summary ---
Author Organization [facility] Address [facility]6 [place] [address] Care Team Providers Care Distribution Technician Name Role Phone Daryl Metzger MD Primary Care Provider Bradley Gallegos MD Primary Care Provider Daryl Metzger MD Primary Care Provider UnavailDasha Banks [facility] Primary Care Provider +1- [phone] Encounter Details Date Type Department Care Team (Late st Contact Info) Description 06/27/2020 MyCLUVHANt Message Enc [facility] Medical Group Family Medicine - [place] [address] [place] [address] Daryl Metzger MD RE: Follow Up/Update Social [...] Sex Assigned at Female 01/08/2021 9:43 AM PROCUREMENT PROFESSIONAL LOGISTICS Legal Sex Female 5:13 PM CDT Gender Identity Female 01/08/2021 9:43 AM PROCUREMENT PROFESSIONAL LOGISTICS Sexual Orientation Straight 01/08/2021 9: 43 AM PROCUREMENT PROFESSIONAL LOGISTICS COVID-19 Exposure Response Date Recorded In the [...] Rule Out 12/16/2020 12/16/2020 12/17/2020 4:31 PM PROCUREMENT PROFESSIONAL LOGISTICS COVID-19 Rule Out 06/05/2021 06/05/2021 06/05/2021 12:31 PM CDT COVID-19 Rule Out 10/23/2021 10/23/2021 10/23/2021 9:25 AM PROCUREMENT PROFESSIONAL LOGISTICS COVID-19 Rule Out 10/23/2021 10/23/2021 10/24/2021 12:21 AM PROCUREMENT PROFESSIONAL LOGISTICS COVID-19 Rule Out 01/15/2022 01/15/2022 01/20/2022 10:53 AM PROCUREMENT PROFESSIONAL LOGISTICS COVID-19 Rule Out 04/21/2022 04/21/2022 04/21/2022 11:42 AM CDT COVID-19 Rule Out 04/21/2022 04/21/2022 04/26/2022 7:02 AM CDT COVID-19 Rule Out 10/06/2022 10/06/2022 10/06/2022 1:21 PM PROCUREMENT PROFESSIONAL LOGISTICS COVID-19 Rule Out 10/06/2022 10/06/2022 10/07/2022 3:34 PM PROCUREMENT PROFESSIONAL LOGISTICS COVID-19 Rule Out 09/14/2023 09/14/2023 09/14/2023 3:48 PM CDT COVID-19 Rule Out 11/02/2024 11/02/2024 11/02/2024 4:03 PM PROCUREMENT PROFESSIONAL LOGISTICS Assessment Noted Time PHQ-9 Depression Total Score: 13 020 1:12 PM CDT documented as of this encounter Care Teams Distribution Technician Relationship Specialty Start Date End Date Daryl Metzger MD PCP - General FAMILY MEDICINE SPORTS MEDICINE 06/23/20 08/12/20 Bradley Carmichael MD [address] [place] [address] MEDICAL OFFICE BUILDING [address] [place] [address] PCP - General INTERNAL MEDICINE 08/13/20 08/19/20 Daryl Metzger MD PCP - General FAMILY MEDICINE SPORTS MEDICINE 08/20/20 10/09/20 Dasha Conway, DEER FARMER- [address] [place] [address] PCP - General 11/02/24 documented as of this encounter
--- OUTSIDE RECORDS SUMMARY | 2025-08-03 19:35 | XMS_ITS | Encounter Summary ---
Author Organization [facility] Address [facility] [place] [address] Care Team Providers Care Flyer Repairer Name Role Phone Dasha Conway Erlin [facility] Primary Care Provider +1- [phone] Encounter Details Date Type Department Care Team (Latest Contact Info) Description 08/20/2022 Anova Culinary Message Enc [facility] Medical Group Multispecialty Care - [place] [address] [place] [address] [address] [place] [address] Curtis Diaz MD [address] [facility] 157 [place], [place] [id number] Nausea and vomiting Social History Tobacco Use [...] Sex Assigned at Female 01/08/2021 9:43 AM HOGSHEAD HEAD MATCHER Legal Sex Female 5:13 PM CDT Gender Identity Female 01/08/2021 9:43 AM HOGSHEAD HEAD MATCHER Sexual Orientation Straight 01/08/2021 9: 43 AM HOGSHEAD HEAD MATCHER COVID-19 Exposure Response Date Recorded In the [...] Rule Out 10/06/2022 10/06/2022 10/06/2022 1:21 PM HOGSHEAD HEAD MATCHER COVID-19 Rule Out 10/06/2022 10/06/2022 10/07/2022 3:34 PM HOGSHEAD HEAD MATCHER COVID-19 Rule Out 09/14/2023 09/14/2023 09/14/2023 3:48 PM CDT COVID-19 Rule Out 11/02/2024 11/02/2024 11/02/2024 4:03 PM HOGSHEAD HEAD MATCHER Assessment Noted Time PHQ-9 Depression Total Score: 4 05/12/20 22 3:34 PM CDT documented as of this encounter Care Teams Flyer Repairer Relationship Specialty Start Date End Date Dasha Conway, VICE PRESIDENT DIVERSITY- [address] [place] [address] PCP - General 11/02/24 documented as of this encounter
--- OUTSIDE RECORDS SUMMARY | 2025-08-03 19:35 | XMS_ITS | Encounter Summary ---
Author Organization [facility] Address [facility] [place] [address] Care Team Providers Care Antique Refinisher Name Role Phone Dasha Conway [facility] Primary Care Provider +1- [phone] Encounter Details Date Type Department Care Team (Late st Contact Info) Description 12/30/2021 CrushBlvdhart Message Enc [facility] Medical Group Multispecialty Care - [place] [address] [address] [place], [place] [phone] Curtis Diaz MD [address] [place] [address] 157 [place], [place] [phone] Test results Social History Tobacco Use Types [...] Sex Assigned at Female 01/08/2021 9:43 AM UTILITY WORKER FILM PROCESSING Legal Sex Female 5:13 PM CDT Gender Identity Female 01/08/2021 9:43 AM UTILITY WORKER FILM PROCESSING Sexual Orientation Straight 01/08/2021 9: 43 AM UTILITY WORKER FILM PROCESSING COVID-19 Exposure Response Date Recorded In the last 10 days, have yo u been in contact with someone who was confirmed or suspected to have Coronavirus/COVID-19? 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 06/30/2017 COVID-19 Rule Out 01/15/2022 01/15/2022 01/20/2022 10:53 AM UTILITY WORKER FILM PROCESSING COVID-19 Rule Out 04/21/2022 04/21/2022 04/21/2022 11:42 AM CDT COVID-19 Rule Out 04/21/2022 04/21/2022 04/26/2022 7:02 AM CDT COVID-19 Rule Out 10/06/2022 10/06/2022 10/06/2022 1:21 PM UTILITY WORKER FILM PROCESSING COVID-19 Rule Out 10/06/2022 10/06/2022 10/07/2022 3:34 PM UTILITY WORKER FILM PROCESSING COVID-19 Rule Out 09/14/2023 09/14/2023 09/14/2023 3:48 PM CDT COVID-19 Rule Out 11/02/2024 11/02/2024 11/02/2024 4:03 PM UTILITY WORKER FILM PROCESSING Assessment Noted Time PHQ-9 Depression Total Score: 15 021 11:10 AM UTILITY WORKER FILM PROCESSING documented as of this encounter Care Teams Antique Refinisher Relationship Specialty Start Date End Date Dasha Conway FNP-BC [address] [place] [address] PCP - General 11/02/24 documented as of this encounter
--- OUTSIDE RECORDS SUMMARY | 2025-08-03 19:35 | XMS_ITS | Encounter Summary ---
Author Organization [facility] Address [facility]6 [place] [address] Care Team Providers Care Director Medical Economics Name Role Phone Dasha Conway Erlin [facility] Primary Care Provider +1- [phone] Encounter Details Date Type Department Care Team (Late st Contact Info) Description 10/10/2022 FAZUAt Message Enc [facility] Medical Group Multispecialty Care - [place] [address] [place] [address] [address] [place] [address] [place] [address] [place] [address] 157 [place] [address] Yeast infection Social History Tobacco Use Types [...] 01/08/2021 9: 43 AM TELEGRAPHIC TYPEWRITER REPAIRER COVID-19 Exposure Response Date Recorded In the last 10 days, have asif rodriguez been in contact with someone who was confirmed or suspected to have Coronavirus/COVID-19? No / Unsure 10/06/2022 12:33 PM TELEGRAPHIC TYPEWRITER REPAIRER documented as of this [...] as of this encounter Care Teams Director Medical Economics Relationship Specialty Start Date End Date Dasha Conway FNP-STEPH [address] [place] [address] PCP - General 11/02/24 documented as of this encounter
--- OUTSIDE RECORDS SUMMARY | 2025-08-03 19:35 | XMS_ITS | Encounter Summary ---
Author Organization [facility] Address [facility]ly [facility]6 [place] [address] Care Team Providers Care Front Load Trash Truck Driver Name Role Phone Dasha Conway Erlin [facility] Primary Care Provider +1- [phone] Encounter Details Date Type Department Care Team (Late st Contact Info) Description 11/23/2022 Knox Media Hubhart Message Enc [facility] Medical Group Multispecialty Care [place] [address] [place] [address] [address] [place] [address] [place] [address] [place] [address] 157 [place] [address] Palmar fascitis Social History Tobacco Use Types [...] Sex Assigned at Female 01/08/2021 9:43 AM COUNTY MANAGER Legal Sex Female 5:13 PM CDT Gender Identity Female 01/08/2021 9:43 AM COUNTY MANAGER Sexual Orientation Straight 01/08/2021 9: 43 AM COUNTY MANAGER COVID-19 Exposure Response Date Recorded In the last 10 days, have asif rodriguez been in contact with someone who was confirmed or suspected to have Coronavirus/COVID-19? No / Unsure 11/05/2022 9:02 AM COUNTY MANAGER documented as of this encounter Functional [...] Rule Out 11/02/2024 11/02/2024 11/02/2024 4:03 PM COUNTY MANAGER Assessment Noted Time PHQ-9 Depression Total Score: 11 12/2 022 12:00 PM COUNTY MANAGER documented as of this encounter Care Teams Front Load Trash Truck Driver Relationship Specialty Start Date End Date Dasha Conway FNP-STEPH [address] [place], [place] [phone] PCP - General 11/02/24 documented as of this encounter
--- OUTSIDE RECORDS SUMMARY | 2025-08-03 19:35 | XMS_ITS | Encounter Summary ---
Author Organization [facility] Address [facility] [place] [address] Care Team Providers Care Sales And Marketing Associate Name Role Phone Dasha Conway Erlin [facility] Primary Care Provider +1- [phone] Encounter Details Date Type Department Care Team (Late st Contact Info) Description 11/01/2022 Arctic Silicon Devicest Message Enc [facility] Medical Group Multispecialty Care - [place] [address] [place] [address] [address] [place] [address] [place] [address] [place] [address] 157 [place] [address] Blood sugar Social History Tobacco Use Types [...] Sex Assigned at Female 01/08/2021 9:43 AM AGRICULTURAL EXTENSION EDUCATOR Legal Sex Female 5:13 PM CDT Gender Identity Female 01/08/2021 9:43 AM AGRICULTURAL EXTENSION EDUCATOR Sexual Orientation Straight 01/08/2021 9: 43 AM AGRICULTURAL EXTENSION EDUCATOR COVID-19 Exposure Response Date Recorded In the last 10 days, have asif rodriguez been in contact with someone who was confirmed or suspected to have Coronavirus/COVID-19? No / Unsure 10/06/2022 12:33 PM AGRICULTURAL EXTENSION EDUCATOR documented as of this encounter Functional Status [...] Status No 06/13/2022 10:59 PM CDT Denis aNm RN Active * Do you have difficulty [...] Rule Out 11/02/2024 11/02/2024 11/02/2024 4:03 PM AGRICULTURAL EXTENSION EDUCATOR Assessment Noted Time PHQ-9 Depression Total Score: 4 05/12/20 22 3:34 PM CDT documented as of this encounter Care Teams Sales And Marketing Associate Relationship Specialty Start Date End Date Dasha Conway FNP-STEPH [address] [place], [place] [phone] PCP - General 11/02/24 documented as of this encounter
--- OUTSIDE RECORDS SUMMARY | 2025-08-03 19:35 | XMS_ITS | Encounter Summary ---
Author Organization [facility] Address [facility] [place] [address] Care Team Providers Care Surveyor Chain Helper Name Role Phone Dasha Conway Erlin [facility] Primary Care Provider +1- [phone] Encounter Details Date Type Department Care Team (Late st Contact Info) Description 07/27/2022 Encovert Message Enc [facility] Medical Group Multispecialty Care - [place] [address] [place] [address] [address] [place] [address] [place] [address] [place] [address] 157 [place] [address] Chantix Social History Tobacco Use Types Packs/Day [...] Sex Assigned at Female 01/08/2021 9:43 AM PEDIATRIC SPORTS MEDICINE SPECIALIST Legal Sex Female 5:13 PM CDT Gender Identity Female 01/08/2021 9:43 AM PEDIATRIC SPORTS MEDICINE SPECIALIST Sexual Orientation Straight 01/08/2021 9: 43 AM PEDIATRIC SPORTS MEDICINE SPECIALIST COVID-19 Exposure Response Date Recorded In [...] Rule Out 10/06/2022 10/06/2022 10/06/2022 1:21 PM PEDIATRIC SPORTS MEDICINE SPECIALIST COVID-19 Rule Out 10/06/2022 10/06/2022 10/07/2022 3:34 PM PEDIATRIC SPORTS MEDICINE SPECIALIST COVID-19 Rule Out 09/14/2023 09/14/2023 09/14/2023 3:48 PM CDT COVID-19 Rule Out 11/02/2024 11/02/2024 11/02/2024 4:03 PM PEDIATRIC SPORTS MEDICINE SPECIALIST Assessment Noted Time PHQ-9 Depression Total Score: 4 05/12/20 22 3:34 PM CDT documented as of this encounter Care Teams Surveyor Chain Helper Relationship Specialty Start Date End Date Dasha Conway, DOUBLE CORNER CUTTER- [address] [place] [address] PCP - General 11/02/24 documented as of this encounter
--- OUTSIDE RECORDS SUMMARY | 2025-08-03 19:35 | XMS_ITS | Encounter Summary ---
Author Organization [facility] Address [facility]6 [place] [address] Care Team Providers Care Risk Prevention Engineer Name Role Phone Dasha Conway Erlin [facility] Primary Care Provider +1- [phone] Encounter Details Date Type Department Care Team (Late st Contact Info) Description 06/16/2022 Crystal ISt Message Enc [facility] Medical Group Multispecialty Care - [place] [address] [address] [place], [place] [phone] [place] [address] [place] [address] 157 [place] [address] Diarrhea Social History Tobacco Use Types Packs/Day [...] Sex Assigned at Female 01/08/2021 9:43 AM SORTER LUMBER STRAIGHTENER Legal Sex Female 5:13 PM CDT Gender Identity Female 01/08/2021 9:43 AM SORTER LUMBER STRAIGHTENER Sexual Orientation Straight 01/08/2021 9: 43 AM SORTER LUMBER STRAIGHTENER COVID-19 Exposure Response Date Recorded In the [...] Rule Out 10/06/2022 10/06/2022 10/06/2022 1:21 PM SORTER LUMBER STRAIGHTENER COVID-19 Rule Out 10/06/2022 10/06/2022 10/07/2022 3:34 PM SORTER LUMBER STRAIGHTENER COVID-19 Rule Out 09/14/2023 09/14/2023 09/14/2023 3:48 PM CDT COVID-19 Rule Out 11/02/2024 11/02/2024 11/02/2024 4:03 PM SORTER LUMBER STRAIGHTENER Assessment Noted Time PHQ-9 Depression Total Score: 4 05/12/20 22 3:34 PM CDT documented as of this encounter Care Teams Risk Prevention Engineer Relationship Specialty Start Date End Date Dasha Conway, SEAT INSTALLER- [address] [place] [address] PCP - General 11/02/24 documented as of this encounter
--- OUTSIDE RECORDS SUMMARY | 2025-08-03 19:35 | XMS_ITS | Encounter Summary ---
Author Organization [facility] Address [facility] [place] [address] Care Team Providers Care Dress Shoe Inspector Name Role Phone Dasha Conway Erlin [facility] Primary Care Provider +1- [phone] Encounter Details Date Type Department Care Team (Late st Contact Info) Description 04/07/2022 Competitive Power Venturest Message Enc [facility] Medical Group Multispecialty Care - [place] [address] [address] [place], [place] [phone] [place] [address] [place] [address] 157 [place] [address] Dexamethasone Social History Tobacco Use Types Packs/Day [...] Sex Assigned at Female 01/08/2021 9:43 AM VOICE NETWORK ENGINEER Legal Sex Female 5:13 PM CDT Gender Identity Female 01/08/2021 9:43 AM VOICE NETWORK ENGINEER Sexual Orientation Straight 01/08/2021 9: 43 AM VOICE NETWORK ENGINEER COVID-19 Exposure Response Date Recorded In the last 10 days, have yo michael been in contact with someone who was confirmed or suspected to have Coronavirus/COVID-19? No / Unsure 03/28/2022 8:31 PM CDT documented as of this encounter Functional Status * RETIRED Are you deaf or do you have serious difficulty hearing Answer Date of Assessment Author Status No 01/29/2022 10:15 PM VOICE NETWORK ENGINEER Acti ve * RETIRED Are you blind or do you have serious difficulty seeing, even when wearing glasses? Answer Date of Assessment Author Status No 01/29/2022 10:15 PM VOICE NETWORK ENGINEER Acti ve * Do you have serious [...] Rule Out 10/06/2022 10/06/2022 10/06/2022 1:21 PM VOICE NETWORK ENGINEER COVID-19 Rule Out 10/06/2022 10/06/2022 10/07/2022 3:34 PM VOICE NETWORK ENGINEER COVID-19 Rule Out 09/14/2023 09/14/2023 09/14/2023 3:48 PM CDT COVID-19 Rule Out 11/02/2024 11/02/2024 11/02/2024 4:03 PM VOICE NETWORK ENGINEER Assessment Noted Time PHQ-9 Depression Total Score: 15 021 11:10 AM VOICE NETWORK ENGINEER documented as of this encounter Care Teams Dress Shoe Inspector Relationship Specialty Start Date End Date Dasha Conway, LATENT FINGERPRINT EXAMINER- [address] [place] [address] PCP - General 11/02/24 documented as of this encounter
--- OUTSIDE RECORDS SUMMARY | 2025-08-03 19:35 | XMS_ITS | Encounter Summary ---
Author Organization [facility] Address [facility]6 [place] [address] Care Team Providers Care Director Hematology Name Role Phone Dasha Conway Erlin [facility] Primary Care Provider +1- [phone] Encounter Details Date Type Department Care Team (Late st Contact Info) Description 05/26/2022 [place] Medical Technologiest Message Enc [facility] Medical Group Multispecialty Care - [place] [address] [address] [place], [place] [address] [place] [address] [place] [address] 157 [place] [address] Fluconazole Social History Tobacco Use Types Packs/Day [...] Sex Assigned at Female 01/08/2021 9:43 AM FISH HATCHERY ASSISTANT Legal Sex Female 5:13 PM CDT Gender Identity Female 01/08/2021 9:43 AM FISH HATCHERY ASSISTANT Sexual Orientation Straight 01/08/2021 9: 43 AM FISH HATCHERY ASSISTANT COVID-19 Exposure Response Date Recorded In the last 10 days, have yo michael been in contact with someone who was confirmed or suspected to have Coronavirus/COVID-19? No / Unsure 05/17/2022 8:13 AM CDT documented as of this encounter Functional Status * RETIRED Are you deaf or do you have serious difficulty hearing Answer Date of Assessment Author Status No 01/29/2022 10:15 PM FISH HATCHERY ASSISTANT Acti ve * RETIRED Are you blind or do you have serious difficulty seeing, even when wearing glasses? Answer Date of Assessment Author Status No 01/29/2022 10:15 PM FISH HATCHERY ASSISTANT Acti ve * Do you have [...] Rule Out 10/06/2022 10/06/2022 10/06/2022 1:21 PM FISH HATCHERY ASSISTANT COVID-19 Rule Out 10/06/2022 10/06/2022 10/07/2022 3:34 PM FISH HATCHERY ASSISTANT COVID-19 Rule Out 09/14/2023 09/14/2023 09/14/2023 3:48 PM CDT COVID-19 Rule Out 11/02/2024 11/02/2024 11/02/2024 4:03 PM FISH HATCHERY ASSISTANT Assessment Noted Time PHQ-9 Depression Total Score: 4 05/12/20 22 3:34 PM CDT documented as of this encounter Care Teams Director Hematology Relationship Specialty Start Date End Date Dasha Conway FNP- [address] [place] [address] PCP - General 11/02/24 documented as of this encounter
--- OUTSIDE RECORDS SUMMARY | 2025-08-03 19:35 | XMS_ITS | Encounter Summary ---
Author Organization [facility] Address [facility]6 [place] [address] Care Team Providers Care Science Writer Name Role Phone Dasha Conway [facility] Primary Care Provider +1- [phone] Encounter Details Date Type Department Care Team (Late st Contact Info) Description 01/26/2022 Home Innshart Message Enc [facility] Medical Group Multispecialty Care - [place] [address] [address] [place], [place] [phone] Curtis Diaz MD [address] [place] [address] 157 [place] [address] Urethral sling Social History Tobacco Use Types [...] Sex Assigned at Female 01/08/2021 9:43 AM COMBAT RIFLE CREWMEMBER Legal Sex Female 5:13 PM CDT Gender Identity Female 01/08/2021 9:43 AM COMBAT RIFLE CREWMEMBER Sexual Orientation Straight 01/08/2021 9: 43 AM COMBAT RIFLE CREWMEMBER COVID-19 Exposure Response Date Recorded In the last 10 days, have yo u been in contact with someone who was confirmed or suspected to have Coronavirus/COVID-19? No / Unsure 01/29/2022 9:08 AM COMBAT RIFLE CREWMEMBER documented as of this encounter Functional Status * Calculated C-SSRS Risk Score (Lifetime/Recent) Answer Date of Assessment Author Status No Risk Indicated 01/29/2022 9:14 AM Audra Mccain RN Active * Clarke Suicide Severity Rating Scale (Screener/Recent Self-Report) Question [...] Rule Out 10/06/2022 10/06/2022 10/06/2022 1:21 PM COMBAT RIFLE CREWMEMBER COVID-19 Rule Out 10/06/2022 10/06/2022 10/07/2022 3:34 PM COMBAT RIFLE CREWMEMBER COVID-19 Rule Out 09/14/2023 09/14/2023 09/14/2023 3:48 PM CDT COVID-19 Rule Out 11/02/2024 11/02/2024 11/02/2024 4:03 PM COMBAT RIFLE CREWMEMBER Assessment Noted Time PHQ-9 Depression Total Score: 15 021 11:10 AM COMBAT RIFLE CREWMEMBER documented as of this encounter Care Teams Science Writer Relationship Specialty Start Date End Date Dasha Conway, MICROSOFT EXCHANGE ARCHITECT- [address] [place] [address] PCP - General 11/02/24 documented as of this encounter
--- OUTSIDE RECORDS SUMMARY | 2025-08-03 19:35 | XMS_ITS | Encounter Summary ---
Author Organization [facility] Address [facility]6 [place] [address] Care Team Providers Care Finance Director Name Role Phone Dasha Conway [facility] Primary Care Provider +1- [phone] Encounter Details Date Type Department Care Team (Late st Contact Info) Description 03/01/[email or web address] [facility] Multispecialty Care - [place] [address] [address] [place], [place] [phone] Curtis Diaz MD [address] [place] [address] 157 [place], [place] [phone] Abdominal mri Social History Tobacco Use Types [...] Sex Assigned at Female 01/08/2021 9:43 AM PROJECT OFFICER Legal Sex Female 5:13 PM CDT Gender Identity Female 01/08/2021 9:43 AM PROJECT OFFICER Sexual Orientation Straight 01/08/2021 9: 43 AM PROJECT OFFICER COVID-19 Exposure Response Date Recorded In the last 10 days, have yo u been in contact with someone who was confirmed or suspected to have Coronavirus/COVID-19? No / Unsure 02/10/2022 10:06 AM CDT documented as of this encounter Functional Status * RETIRED Are you deaf or do you have serious difficulty hearing Answer Date of Assessment Author Status No 01/29/2022 10:15 PM PROJECT OFFICER Acti ve * RETIRED Are you blind or do you have serious difficulty seeing, even when wearing glasses? Answer Date of Assessment Author Status No 01/29/2022 10:15 PM PROJECT OFFICER Acti ve * Do you have serious [...] Assessment Author Status No 01/29/2022 10:15 PM Nnaette Bagley RN Active documented as of this [...] Rule Out 10/06/2022 10/06/2022 10/06/2022 1:21 PM PROJECT OFFICER COVID-19 Rule Out 10/06/2022 10/06/2022 10/07/2022 3:34 PM PROJECT OFFICER COVID-19 Rule Out 09/14/2023 09/14/2023 09/14/2023 3:48 PM CDT COVID-19 Rule Out 11/02/2024 11/02/2024 11/02/2024 4:03 PM PROJECT OFFICER Assessment Noted Time PHQ-9 Depression Total Score: 15 021 11:10 AM PROJECT OFFICER documented as of this encounter Care Teams Finance Director Relationship Specialty Start Date End Date Dasha Conway FNP- [address] [place] [address] PCP - General 11/02/24 documented as of this encounter
--- OUTSIDE RECORDS SUMMARY | 2025-08-03 19:35 | XMS_ITS | Encounter Summary ---
Author Organization [facility] Address [facility] [place] [address] Care Team Providers Care Shirt Presser Name Role Phone Dasha Conway Erlin [facility] Primary Care Provider +1- [phone] Encounter Details Date Type Department Care Team (Late st Contact Info) Description 10/08/2022 elarmhart Message Enc [facility] Medical Group Multispecialty Care - [place] [address] [address] [place], [place] [id number] [place] [address] [place] [address] 157 [place], [place] [phone] Hands and feet Social History Tobacco Use [...] 01/08/2021 9: 43 AM WRONG ADDRESS CLERK COVID-19 Exposure Response Date Recorded In the last 10 days, have yo michael been in contact with someone who was confirmed or suspected to have Coronavirus/COVID-19? No / Unsure 10/06/2022 12:33 PM WRONG ADDRESS CLERK documented as of this encounter Functional [...] Rule Out 11/02/2024 11/02/2024 11/02/2024 4:03 PM WRONG ADDRESS CLERK Assessment Noted Time PHQ-9 Depression Total Score: 4 05/12/20 22 3:34 PM CDT documented as of this encounter Care Teams Shirt Presser Relationship Specialty Start Date End Date Dasha Conway FNP-STEPH [address] [place] [address] PCP - General 11/02/24 documented as of this encounter
--- OUTSIDE RECORDS SUMMARY | 2025-08-03 19:35 | XMS_ITS | Encounter Summary ---
Author Organization [facility] Address [facility]6 [place] [address] Care Team Providers Care Linux Consultant Name Role Phone Dasha Conway Erlin [facility] Primary Care Provider +1- [phone] Encounter Details Date Type Department Care Team (Late st Contact Info) Description 06/29/2022 Amurahart Message Enc [facility] Medical Group Multispecialty Care - [place] [address] [place] [address] [address] [place], [place] [phone] [place] [address] [place] [address] 157 [place], [place] [phone] Still sick Social History Tobacco Use Types [...] Sex Assigned at Female 01/08/2021 9:43 AM SCREENPLAY WRITER Legal Sex Female 5:13 PM CDT Gender Identity Female 01/08/2021 9:43 AM SCREENPLAY WRITER Sexual Orientation Straight 01/08/2021 9: 43 AM SCREENPLAY WRITER COVID-19 Exposure Response Date Recorded In [...] Rule Out 10/06/2022 10/06/2022 10/06/2022 1:21 PM SCREENPLAY WRITER COVID-19 Rule Out 10/06/2022 10/06/2022 10/07/2022 3:34 PM SCREENPLAY WRITER COVID-19 Rule Out 09/14/2023 09/14/2023 09/14/2023 3:48 PM CDT COVID-19 Rule Out 11/02/2024 11/02/2024 11/02/2024 4:03 PM SCREENPLAY WRITER Assessment Noted Time PHQ-9 Depression Total Score: 4 05/12/20 22 3:34 PM CDT documented as of this encounter Care Teams Linux Consultant Relationship Specialty Start Date End Date Dasha Conway, IMPLEMENTATION ENGINEER- [address] [place] [address] PCP - General 11/02/24 documented as of this encounter
--- OUTSIDE RECORDS SUMMARY | 2025-08-03 19:35 | XMS_ITS | Encounter Summary ---
Author Organization [facility] Address [facility] [place] [address] Care Team Providers Care Cashier Associate Name Role Phone Dasha Conway Erlin [facility] Primary Care Provider +1- [phone] Encounter Details Date Type Department Care Team (Late st Contact Info) Description 02/09/2022 ConnectEdut Message Enc [facility] Medical Group Multispecialty Care - [place] [address] [address] [place], [place] [address] Curtis Diaz MD [address] [place] [address] 157 [place] [address] Uti Social History Tobacco Use Types Packs/Day [...] Sex Assigned at Female 01/08/2021 9:43 AM BICYCLE REPAIRER Legal Sex Female 5:13 PM CDT Gender Identity Female 01/08/2021 9:43 AM BICYCLE REPAIRER Sexual Orientation Straight 01/08/2021 9: 43 AM BICYCLE REPAIRER COVID-19 Exposure Response Date Recorded In the last 10 days, have yo u been in contact with someone who was confirmed or suspected to have Coronavirus/COVID-19? No / Unsure 02/10/2022 10:06 AM CDT documented as of this encounter Functional Status * RETIRED Are you deaf or do you have serious difficulty hearing Answer Date of Assessment Author Status No 01/29/2022 10:15 PM BICYCLE REPAIRER Acti ve * RETIRED Are you blind or do you have serious difficulty seeing, even when wearing glasses? Answer Date of Assessment Author Status No 01/29/2022 10:15 PM BICYCLE REPAIRER Acti ve * Do you have serious [...] Rule Out 10/06/2022 10/06/2022 10/06/2022 1:21 PM BICYCLE REPAIRER COVID-19 Rule Out 10/06/2022 10/06/2022 10/07/2022 3:34 PM BICYCLE REPAIRER COVID-19 Rule Out 09/14/2023 09/14/2023 09/14/2023 3:48 PM CDT COVID-19 Rule Out 11/02/2024 11/02/2024 11/02/2024 4:03 PM BICYCLE REPAIRER Assessment Noted Time PHQ-9 Depression Total Score: 15 021 11:10 AM BICYCLE REPAIRER documented as of this encounter Care Teams Cashier Associate Relationship Specialty Start Date End Date Dasha Conway FNP-BC [address] [place] [phone] PCP - General 11/02/24 documented as of this encounter
--- OUTSIDE RECORDS SUMMARY | 2025-08-03 19:35 | XMS_ITS | Encounter Summary ---
Author Organization [facility] Address [facility]6 [place] [address] Care Team Providers Care Pie Filler Name Role Phone Dasha Conway [facility] Primary Care Provider +1- [phone] Encounter Details Date Type Department Care Team (Late st Contact Info) Description 11/24/2021 [email or web address] Message Enc [facility] Medical Group Multispecialty Care - [place] [address] [address] [place], [place] [phone] [place] [address] [place] [address] 157 [place], [place] [phone] PFT and Covid Social History Tobacco Use [...] Sex Assigned at Female 01/08/2021 9:43 AM SOCIAL MEDIA ASSISTANT Legal Sex Female 5:13 PM CDT Gender Identity Female 01/08/2021 9:43 AM SOCIAL MEDIA ASSISTANT Sexual Orientation Straight 01/08/2021 9: 43 AM SOCIAL MEDIA ASSISTANT COVID-19 Exposure Response Date Recorded In the last month, have you been in contact with someone who was confirmed or suspected to have Coronavirus / COVID-19? 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 COVID-19 Rule Out 01/15/2022 01/15/2022 01/20/2022 10:53 AM SOCIAL MEDIA ASSISTANT COVID-19 Rule Out 04/21/2022 04/21/2022 04/21/2022 11:42 AM CDT COVID-19 Rule Out 04/21/2022 04/21/2022 04/26/2022 7:02 AM CDT COVID-19 Rule Out 10/06/2022 10/06/2022 10/06/2022 1:21 PM SOCIAL MEDIA ASSISTANT COVID-19 Rule Out 10/06/2022 10/06/2022 10/07/2022 3:34 PM SOCIAL MEDIA ASSISTANT COVID-19 Rule Out 09/14/2023 09/14/2023 09/14/2023 3:48 PM CDT COVID-19 Rule Out 11/02/2024 11/02/2024 11/02/2024 4:03 PM SOCIAL MEDIA ASSISTANT Assessment Noted Time PHQ-9 Depression Total Score: 15 021 11:10 AM SOCIAL MEDIA ASSISTANT documented as of this encounter Care Teams Pie Filler Relationship Specialty Start Date End Date Dasha Conway FNP-BC [address] [place] [address] PCP - General 11/02/24 documented as of this encounter
--- OUTSIDE RECORDS SUMMARY | 2025-08-03 19:35 | XMS_ITS | Encounter Summary ---
Author Organization [facility] Address [facility]6 [place] [address] Care Team Providers Care Stogy Maker Name Role Phone Dasha Conway [facility] Primary Care Provider +1- [phone] Encounter Details Date Type Department Care Team (Latest Contact Info) Description 02/03/2022 Electronifiet Message Enc [facility] Medical Group Multispecialty Care - [place] [address] [place] [address] [address] [place], [place] [phone] [place] [address] [place] [address] [address] [place], [place] [phone] Zofran and fosfomycin Social History Tobacco Use [...] Sex Assigned at Female 01/08/2021 9:43 AM LEASE ANALYST Legal Sex Female 5:13 PM CDT Gender Identity Female 01/08/2021 9:43 AM LEASE ANALYST Sexual Orientation Straight 01/08/2021 9: 43 AM LEASE ANALYST COVID-19 Exposure Response Date Recorded In the last 10 days, have yo u been in contact with someone who was confirmed or suspected to have Coronavirus/COVID-19? No / Unsure 02/02/2022 10:59 AM CDT documented as of this encounter Functional Status * RETIRED Are you deaf or do you have serious difficulty hearing Answer Date of Assessment Author Status No 01/29/2022 10:15 PM LEASE ANALYST Acti ve * RETIRED Are you blind or do you have serious difficulty seeing, even when wearing glasses? Answer Date of Assessment Author Status No 01/29/2022 10:15 PM LEASE ANALYST Acti ve * Do you have [...] Rule Out 10/06/2022 10/06/2022 10/06/2022 1:21 PM LEASE ANALYST COVID-19 Rule Out 10/06/2022 10/06/2022 10/07/2022 3:34 PM LEASE ANALYST COVID-19 Rule Out 09/14/2023 09/14/2023 09/14/2023 3:48 PM CDT COVID-19 Rule Out 11/02/2024 11/02/2024 11/02/2024 4:03 PM LEASE ANALYST Assessment Noted Time PHQ-9 Depression Total Score: 15 021 11:10 AM LEASE ANALYST documented as of this encounter Care Teams Stogy Maker Relationship Specialty Start Date End Date Dasha Conway, SEMICONDUCTOR PACKAGES LEAK TESTER-BC [address] [place] [address] PCP - General 11/02/24 documented as of this encounter
--- OUTSIDE RECORDS SUMMARY | 2025-08-03 19:35 | XMS_ITS | Encounter Summary ---
Author Organization [facility] Address [facility]6 [place] [address] Care Team Providers Care Engineer Fishing Vessel Name Role Phone Dasha Conway Erlin [facility] Primary Care Provider +1- [phone] Encounter Details Date Type Department Care Team (Late st Contact Info) Description 05/17/2022 Foursquarehart Message Enc [facility] Medical Group Multispecialty Care - [place] [address] [place] [address] [address] [place], [place] [phone] [place] [address] [place] [address] 157 [place] [address] B12 injections Social History Tobacco Use Types [...] Sex Assigned at Female 01/08/2021 9:43 AM COURSE DEVELOPER Legal Sex Female 5:13 PM CDT Gender Identity Female 01/08/2021 9:43 AM COURSE DEVELOPER Sexual Orientation Straight 01/08/2021 9: 43 AM COURSE DEVELOPER COVID-19 Exposure Response Date Recorded In the last 10 days, have yo u been in contact with someone who was confirmed or suspected to have Coronavirus/COVID-19? No / Unsure 05/17/2022 8:13 AM CDT documented as of this encounter Functional Status * RETIRED Are you deaf or do you have serious difficulty hearing Answer Date of Assessment Author Status No 01/29/2022 10:15 PM COURSE DEVELOPER Acti ve * RETIRED Are you blind or do you have serious difficulty seeing, even when wearing glasses? Answer Date of Assessment Author Status No 01/29/2022 10:15 PM COURSE DEVELOPER Acti ve * Do you have serious difficulty walking or climbing stairs? Answer Date of Assessment Author Status No 01/29/2022 10:15 PM aNnette Bagley RN Active * Do you have [...] AM CDT Curtis Diaz MD Active * [place] Suicide Severity Rating Scale (Screener/Recent Self-Report) Question [...] Rule Out 10/06/2022 10/06/2022 10/06/2022 1:21 PM COURSE DEVELOPER COVID-19 Rule Out 10/06/2022 10/06/2022 10/07/2022 3:34 PM COURSE DEVELOPER COVID-19 Rule Out 09/14/2023 09/14/2023 09/14/2023 3:48 PM CDT COVID-19 Rule Out 11/02/2024 11/02/2024 11/02/2024 4:03 PM COURSE DEVELOPER Assessment Noted Time PHQ-9 Depression Total Score: 4 05/12/20 3:34 PM CDT documented as of this encounter Care Teams Engineer Fishing Vessel Relationship Specialty Start Date End Date Dasha Conway, CLOUD PHYSICIST- [address] [place] [address] PCP - General 11/02/24 documented as of this encounter
--- OUTSIDE RECORDS SUMMARY | 2025-08-03 19:35 | XMS_ITS | Encounter Summary ---
Author Organization [facility] Address Critical access hospital6 [place] [address] Care Team Providers Care Steward/Stewardess Railroad Dining Car Name Role Phone Dasha Conway Erlin [facility] Primary Care Provider +1- [phone] Encounter Details Date Type Department Care Team (Late st Contact Info) Description 05/12/2021 ExecOnlinehart Message Enc [facility] Medical Group Multispecialty Care - [place] [address] [address] [place], [place] [phone] [place] [address] [place] [address] 157 [place] [address] RE: Question Social History Tobacco Use Types [...] Assigned at Female 01/08/2021 9:43 AM SENIOR BACK END JAVA DEVELOPER Legal Sex Female 5:13 PM CDT Gender Identity Female 01/08/2021 9:43 AM SENIOR BACK END JAVA DEVELOPER Sexual Orientation Straight 01/08/2021 9: 43 AM SENIOR BACK END JAVA DEVELOPER COVID-19 Exposure Response Date Recorded In [...] Out 10/23/2021 10/23/2021 10/23/2021 9:25 AM SENIOR BACK END JAVA DEVELOPER COVID-19 Rule Out 10/23/2021 10/23/2021 10/24/2021 12:21 AM SENIOR BACK END JAVA DEVELOPER COVID-19 Rule Out 01/15/2022 01/15/2022 01/20/2022 10:53 AM SENIOR BACK END JAVA DEVELOPER COVID-19 Rule Out 04/21/2022 04/21/2022 04/21/2022 11:42 AM CDT COVID-19 Rule Out 04/21/2022 04/21/2022 04/26/2022 7:02 AM CDT COVID-19 Rule Out 10/06/2022 10/06/2022 10/06/2022 1:21 PM SENIOR BACK END JAVA DEVELOPER COVID-19 Rule Out 10/06/2022 10/06/2022 10/07/2022 3:34 PM SENIOR BACK END JAVA DEVELOPER COVID-19 Rule Out 09/14/2023 09/14/2023 09/14/2023 3:48 PM CDT COVID-19 Rule Out 11/02/2024 11/02/2024 11/02/2024 4:03 PM SENIOR BACK END JAVA DEVELOPER Assessment Noted Time PHQ-9 Depression Total Score: 021 9:18 AM CDT documented as of this encounter Care Teams Steward/Stewardess Railroad Dining Car Relationship Specialty Start Date End Date Dasha Conway, CHRISTINE-STEPH [address] [place] [id number] PCP - General 11/02/24 documented as of this encounter
--- OUTSIDE RECORDS SUMMARY | 2025-08-03 19:35 | XMS_ITS | Encounter Summary ---
Author Organization [facility] Address [facility]6 [place] [address] Care Team Providers Care Plumbing Inspector Name Role Phone Dasha Conway Erlin [facility] Primary Care Provider +1- [phone] Encounter Details Date Type Department Care Team (Late st Contact Info) Description 04/10/2022 EmergentDetectiont Message Enc [facility] Medical Group Multispecialty Care - [place] [address] [place] [address] [address] [place], [place] [phone] [place] [address] [place] [address] 157 [place] [address] Slu allergy Social History Tobacco Use Types [...] Sex Assigned at Female 01/08/2021 9:43 AM TALENT SOLUTIONS MANAGER Legal Sex Female 5:13 PM CDT Gender Identity Female 01/08/2021 9:43 AM TALENT SOLUTIONS MANAGER Sexual Orientation Straight 01/08/2021 9: 43 AM TALENT SOLUTIONS MANAGER COVID-19 Exposure Response Date Recorded In the last 10 days, have yo michael been in contact with someone who was confirmed or suspected to have Coronavirus/COVID-19? No / Unsure 03/28/2022 8:31 PM CDT documented as of this encounter Functional Status * RETIRED Are you deaf or do you have serious difficulty hearing Answer Date of Assessment Author Status No 01/29/2022 10:15 PM TALENT SOLUTIONS MANAGER Acti ve * RETIRED Are you blind or do you have serious difficulty seeing, even when wearing glasses? Answer Date of Assessment Author Status No 01/29/2022 10:15 PM TALENT SOLUTIONS MANAGER Acti ve * Do you have [...] Rule Out 10/06/2022 10/06/2022 10/06/2022 1:21 PM TALENT SOLUTIONS MANAGER COVID-19 Rule Out 10/06/2022 10/06/2022 10/07/2022 3:34 PM TALENT SOLUTIONS MANAGER COVID-19 Rule Out 09/14/2023 09/14/2023 09/14/2023 3:48 PM CDT COVID-19 Rule Out 11/02/2024 11/02/202411/0211/02/2024 4:03 PM TALENT SOLUTIONS MANAGER Assessment Noted Time PHQ-9 Depression Total Score: 15 021 11:10 AM TALENT SOLUTIONS MANAGER documented as of this encounter Care Teams Plumbing Inspector Relationship Specialty Start Date End Date Dasha Conway, COLLECTIONS ATTORNEY- [address] [place] [address] PCP - General 11/02/24 documented as of this encounter
--- OUTSIDE RECORDS SUMMARY | 2025-08-03 19:35 | XMS_ITS | Encounter Summary ---
Author Organization [facility] Address [facility] [place] [address] Care Team Providers Care Pigeon Fancier Name Role Phone Dasha Conway Erlin [facility] Primary Care Provider +1- [phone] Encounter Details Date Type Department Care Team (Late st Contact Info) Description 01/28/2022 Egos Ventureshart Message Enc [facility] Medical Group Multispecialty Care - [place] [address] [address] [place], [place] [phone] [place] [address] [place] [address] 157 [place] [address] New antibiotic Social History Tobacco Use Types [...] Sex Assigned at Female 01/08/2021 9:43 AM SPRING FORGER Legal Sex Female 5:13 PM CDT Gender Identity Female 01/08/2021 9:43 AM SPRING FORGER Sexual Orientation Straight 01/08/2021 9: 43 AM SPRING FORGER COVID-19 Exposure Response Date Recorded In the last 10 days, have yo u been in contact with someone who was confirmed or suspected to have Coronavirus/COVID-19? No / Unsure 01/31/2022 8:53 PM CDT documented as of this encounter Functional Status * Calculated C-SSRS Risk Score (Lifetime/Recent) Answer Date of Assessment Author Status No Risk Indicated 01/29/2022 9:14 AM Audra Mccain RN Active * Bates Suicide Severity Rating Scale (Screener/Recent Self-Report) Question [...] Rule Out 10/06/2022 10/06/2022 10/06/2022 1:21 PM SPRING FORGER COVID-19 Rule Out 10/06/2022 10/06/2022 10/07/2022 3:34 PM SPRING FORGER COVID-19 Rule Out 09/14/2023 09/14/2023 09/14/2023 3:48 PM CDT COVID-19 Rule Out 11/02/2024 11/02/2024 11/02/2024 4:03 PM SPRING FORGER Assessment Noted Time PHQ-9 Depression Total Score: 15 021 11:10 AM SPRING FORGER documented as of this encounter Care Teams Pigeon Fancier Relationship Specialty Start Date End Date Dasha Conway, PASSENGER CONDUCTOR- [address] [place] [address] PCP - General 11/02/24 documented as of this encounter
--- OUTSIDE RECORDS SUMMARY | 2025-08-03 19:35 | XMS_ITS | Encounter Summary ---
Author Organization [facility] Address [facility] [place] [address] Care Team Providers Care Slps Name Role Phone Dasha Conway [facility] Primary Care Provider +1- [phone] Encounter Details Date Type Department Care Team (Latest Contact Info) Description 01/01/2022 Janeevat Message Enc [facility] Medical Group Multispecialty Care - [place] [address] [address] [place] [address] [place] [address] [place] [address] 157 [place], [place] [phone] Normal lymph nodes Social History Tobacco Use [...] Sex Assigned at Female 01/08/2021 9:43 AM OPERATIONS RESEARCH GROUP MANAGER Legal Sex Female 5:13 PM CDT Gender Identity Female 01/08/2021 9:43 AM OPERATIONS RESEARCH GROUP MANAGER Sexual Orientation Straight 01/08/2021 9: 43 AM OPERATIONS RESEARCH GROUP MANAGER COVID-19 Exposure Response Date Recorded In the last 10 days, have yo u been in contact with someone who was confirmed or suspected to have Coronavirus/COVID-19? No / Unsure 12/29/2021 10:09 PM OPERATIONS RESEARCH GROUP MANAGER documented as of this encounter Plan of Treatment Not on file documented as of this encounter Visit Diagnoses Not on filedocumented in this encounter Additional Health Concerns Infection Onset Date Last Indicated Resolved Time 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 06/30/2017 COVID-19 Rule Out 01/15/2022 01/15/2022 01/20/2022 10:53 AM OPERATIONS RESEARCH GROUP MANAGER COVID-19 Rule Out 04/21/2022 04/21/2022 04/21/2022 11:42 AM CDT COVID-19 Rule Out 04/21/2022 04/21/2022 04/26/2022 7:02 AM CDT COVID-19 Rule Out 10/06/2022 10/06/2022 10/06/2022 1:21 PM OPERATIONS RESEARCH GROUP MANAGER COVID-19 Rule Out 10/06/2022 10/06/2022 10/07/2022 3:34 PM OPERATIONS RESEARCH GROUP MANAGER COVID-19 Rule Out 09/14/2023 09/14/2023 09/14/2023 3:48 PM CDT COVID-19 Rule Out 11/02/2024 11/02/2024 11/02/2024 4:03 PM OPERATIONS RESEARCH GROUP MANAGER Assessment Noted Time PHQ-9 Depression Total Score: 15 021 11:10 AM OPERATIONS RESEARCH GROUP MANAGER documented as of this encounter Care Teams Slps Relationship Specialty Start Date End Date Dasha Conway FNP-BC [address] [place] [address] PCP - General 11/02/24 documented as of this encounter
--- OUTSIDE RECORDS SUMMARY | 2025-08-03 19:35 | XMS_ITS | Encounter Summary ---
Author Organization [facility] Address [facility]6 [place] [address] Care Team Providers Care Welfare Centre Manager Name Role Phone Dasha Conway Erlin [facility] Primary Care Provider +1- [phone] Encounter Details Date Type Department Care Team (Late st Contact Info) Description 11/09/2022 Aphriat Message Enc [facility] Medical Group Multispecialty Care - [place] [address] [place] [address] [address] [place] [address] [place] [address] [place] [address] 157 [place] [address] A1c Social History Tobacco Use Types Packs/Day [...] Assigned at Female 01/08/2021 9:43 AM MEDICAL RECORDS CUSTODIAN Legal Sex Female 5:13 PM CDT Gender Identity Female 01/08/2021 9:43 AM MEDICAL RECORDS CUSTODIAN Sexual Orientation Straight 01/08/2021 9: 43 AM MEDICAL RECORDS CUSTODIAN COVID-19 Exposure Response Date Recorded In the last 10 days, have asif rodriguez been in contact with someone who was confirmed or suspected to have Coronavirus/COVID-19? No / Unsure 11/05/2022 9:02 AM MEDICAL RECORDS CUSTODIAN documented as of this encounter Functional Status [...] Out 11/02/2024 11/02/2024 11/02/2024 4:03 PM MEDICAL RECORDS CUSTODIAN Assessment Noted Time PHQ-9 Depression Total Score: 11 1216/2 022 12:00 PM MEDICAL RECORDS CUSTODIAN documented as of this encounter Care Teams Welfare Centre Manager Relationship Specialty Start Date End Date Dasha Conway FNP-BC [address] [place], [place] [id number] PCP - General 11/02/24 documented as of this encounter
--- OUTSIDE RECORDS SUMMARY | 2025-08-03 19:35 | XMS_ITS | Encounter Summary ---
Author Organization [facility] Address [facility] [place] [address] Care Team Providers Care Photography Instructor Name Role Phone Dasha Conway Erlin [facility] Primary Care Provider +1- [phone] Encounter Details Date Type Department Care Team (Late st Contact Info) Description 07/31/2022 Lakoot Message Enc [facility] Medical Group Multispecialty Care - [place] [address] [place] [address] [address] [place], [place] [id number] [place] [address] [place] [address] 157 [place] [address] Ashlie Social History Tobacco Use Types Packs/Day [...] Sex Assigned at Female 01/08/2021 9:43 AM PENOLOGY PROFESSOR Legal Sex Female 5:13 PM CDT Gender Identity Female 01/08/2021 9:43 AM PENOLOGY PROFESSOR Sexual Orientation Straight 01/08/2021 9: 43 AM PENOLOGY PROFESSOR COVID-19 Exposure Response Date Recorded In [...] Assessment Author Status Most Recent Attempt Date [id number] 08/02/2022 11:13 AM CD Sanjay Santa RN [...] Behavior (Lifetime) Yes 08/02/2022 11:13 AM Sanjay rG RN Activ e Total Number of Preparatory [...] AM Sanjay Gr RN Activ e * Smilax Suicide Severity Rating Scale (Screener/Recent Self-Report) Question [...] Rule Out 10/06/2022 10/06/2022 10/06/2022 1:21 PM PENOLOGY PROFESSOR COVID-19 Rule Out 10/06/2022 10/06/2022 10/07/2022 3:34 PM PENOLOGY PROFESSOR COVID-19 Rule Out 09/14/2023 09/14/2023 09/14/2023 3:48 PM CDT COVID-19 Rule Out 11/02/2024 11/02/2024 11/02/2024 4:03 PM PENOLOGY PROFESSOR Assessment Noted Time PHQ-9 Depression Total Score: 4 05/12/20 22 3:34 PM CDT documented as of this encounter Care Teams Photography Instructor Relationship Specialty Start Date End Date Dasha Conway FNP-BC [address] [place] [address] PCP - General 11/02/24 documented as of this encounter
--- OUTSIDE RECORDS SUMMARY | 2025-08-03 19:35 | XMS_ITS | Encounter Summary ---
Author Organization [facility] Address [facility]6 [place] [address] Care Team Providers Care Florist Manager Name Role Phone Dasha Conway [facility] Primary Care Provider +1- [phone] Encounter Details Date Type Department Care Team (Latest Contact Info) Description 02/11/[address] [facility] Medical Group Multispecialty Care - [place] [address] [address] [place] [address] [place] [address] [place] [address] 157 [place], [place] [phone] Urine culture results Social History Tobacco Use [...] Sex Assigned at Female 01/08/2021 9:43 AM PIPELINE INSPECTOR Legal Sex Female 5:13 PM CDT Gender Identity Female 01/08/2021 9:43 AM PIPELINE INSPECTOR Sexual Orientation Straight 01/08/2021 9: 43 AM PIPELINE INSPECTOR COVID-19 Exposure Response Date Recorded In the last 10 days, have yo u been in contact with someone who was confirmed or suspected to have Coronavirus/COVID-19? No / Unsure 02/10/2022 10:06 AM CDT documented as of this encounter Functional Status * RETIRED Are you deaf or do you have serious difficulty hearing Answer Date of Assessment Author Status No 01/29/2022 10:15 PM PIPELINE INSPECTOR Acti ve * RETIRED Are you blind or do you have serious difficulty seeing, even when wearing glasses? Answer Date of Assessment Author Status No 01/29/2022 10:15 PM PIPELINE INSPECTOR Acti ve * Do you have serious [...] Rule Out 10/06/2022 10/06/2022 10/06/2022 1:21 PM PIPELINE INSPECTOR COVID-19 Rule Out 10/06/2022 10/06/2022 10/07/2022 3:34 PM PIPELINE INSPECTOR COVID-19 Rule Out 09/14/2023 09/14/2023 09/14/2023 3:48 PM CDT COVID-19 Rule Out 11/02/2024 11/02/2024 11/02/2024 4:03 PM PIPELINE INSPECTOR Assessment Noted Time PHQ-9 Depression Total Score: 15 021 11:10 AM PIPELINE INSPECTOR documented as of this encounter Care Teams Florist Manager Relationship Specialty Start Date End Date Dasha Conway FNP- [address] [place] [address] PCP - General 11/02/24 documented as of this encounter
--- OUTSIDE RECORDS SUMMARY | 2025-08-03 19:35 | XMS_ITS | Encounter Summary ---
Author Organization [facility] Address [facility] [place] [address] Care Team Providers Care Insurance Claims Clerk Name Role Phone Dasha Conway [facility] Primary Care Provider +1- [phone] Encounter Details Date Type Department Care Team (Latest Contact Info) Description 10/23/2021 RABThart Message Enc [facility] Medical Group Multispecialty Care - [place] [address] [place] [address] [address] [place] [address] [place] [address] [place] [address] 157 [place], [place] [phone] Chest x-ray results Social History Tobacco Use [...] Sex Assigned at Female 01/08/2021 9:43 AM FEDERAL APPELLATE CLERK Legal Sex Female 5:13 PM CDT Gender Identity Female 01/08/2021 9:43 AM FEDERAL APPELLATE CLERK Sexual Orientation Straight 01/08/2021 9: 43 AM FEDERAL APPELLATE CLERK COVID-19 Exposure Response Date Recorded In the last month, have you been in contact with someone who was confirmed or suspected to have Coronavirus / COVID-19? No / Unsure 10/22/2021 9:17 AM FEDERAL APPELLATE CLERK documented as of this encounter Plan of Treatment Not on file documented as of this encounter Visit Diagnoses Not on filedocumented in this encounter Additional Health Concerns Infection Onset Date Last Indicated Resolved Time 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 06/30/2017 COVID-19 Rule Out 10/23/2021 10/23/2021 10/23/2021 9:25 AM FEDERAL APPELLATE CLERK COVID-19 Rule Out 10/23/2021 10/23/2021 10/24/2021 12:21 AM FEDERAL APPELLATE CLERK COVID-19 Rule Out 01/15/2022 01/15/2022 01/20/2022 10:53 AM FEDERAL APPELLATE CLERK COVID-19 Rule Out 04/21/2022 04/21/2022 04/21/2022 11:42 AM CDT COVID-19 Rule Out 04/21/2022 04/21/2022 04/26/2022 7:02 AM CDT COVID-19 Rule Out 10/06/2022 10/06/2022 10/06/2022 1:21 PM FEDERAL APPELLATE CLERK COVID-19 Rule Out 10/06/2022 10/06/2022 10/07/2022 3:34 PM FEDERAL APPELLATE CLERK COVID-19 Rule Out 09/14/2023 09/14/2023 09/14/2023 3:48 PM CDT COVID-19 Rule Out 11/02/2024 11/02/2024 11/02/2024 4:03 PM FEDERAL APPELLATE CLERK Assessment Noted Time PHQ-9 Depression Total Score: 22 021 9:18 AM CDT documented as of this encounter Care Teams Insurance Claims Clerk Relationship Specialty Start Date End Date Dasha Conway FNP-STEPH [address] [place] [address] PCP - General 11/02/24 documented as of this encounter
--- OUTSIDE RECORDS SUMMARY | 2025-08-03 19:35 | XMS_ITS | Encounter Summary ---
Author Organization [facility] Address [facility]6 [place] [address] Care Team Providers Care Beer Runner Name Role Phone Daryl Metzger MD Primary Care Provider Bradley Gallegos MD Primary Care Provider [phone] Daryl Metzger MD Primary Care Provider UnavailDasha Banks [facility] Primary Care Provider [phone]- [phone] Encounter Details Date Type Department Care Team (Late st Contact Info) Description 08/09/2020 MyCBYOM!t Message Enc [facility] Medical [facility] Family Medicine - [place] [address] [place] [address] Daryl Metzger MD RE: Follow Up/Update Social [...] Sex Assigned at Female 01/08/2021 9:43 AM WATCH PARTS GRINDER Legal Sex Female 5:13 PM CDT Gender Identity Female 01/08/2021 9:43 AM WATCH PARTS GRINDER Sexual Orientation Straight 01/08/2021 9: 43 AM WATCH PARTS GRINDER COVID-19 Exposure Response Date Recorded In the [...] Rule Out 12/16/2020 12/16/2020 12/17/2020 4:31 PM WATCH PARTS GRINDER COVID-19 Rule Out 06/05/2021 06/05/2021 06/05/2021 12:31 PM CDT COVID-19 Rule Out 10/23/2021 10/23/2021 10/23/2021 9:25 AM WATCH PARTS GRINDER COVID-19 Rule Out 10/23/2021 10/23/2021 10/24/2021 12:21 AM WATCH PARTS GRINDER COVID-19 Rule Out 01/15/2022 01/15/2022 01/20/2022 10:53 AM WATCH PARTS GRINDER COVID-19 Rule Out 04/21/2022 04/21/2022 04/21/2022 11:42 AM CDT COVID-19 Rule Out 04/21/2022 04/21/2022 04/26/2022 7:02 AM CDT COVID-19 Rule Out 10/06/2022 10/06/2022 10/06/2022 1:21 PM WATCH PARTS GRINDER COVID-19 Rule Out 10/06/2022 10/06/2022 10/07/2022 3:34 PM WATCH PARTS GRINDER COVID-19 Rule Out 09/14/2023 09/14/2023 09/14/2023 3:48 PM CDT COVID-19 Rule Out 11/02/2024 11/02/2024 11/02/2024 4:03 PM WATCH PARTS GRINDER Assessment Noted Time PHQ-9 Depression Total Score: 13 020 1:12 PM CDT documented as of this encounter Care Teams Beer Runner Relationship Specialty Start Date End Date Daryl Metzger MD PCP - General FAMILY MEDICINE SPORTS MEDICINE 06/23/20 08/12/20 Bradley Carmichael MD [address] [place] [address] MEDICAL OFFICE BUILDING [address] [place] [address] PCP - General INTERNAL MEDICINE 08/13/20 08/19/20 Daryl Metzger MD PCP - General FAMILY MEDICINE SPORTS MEDICINE 08/20/20 10/09/20 Dasha Conway, TEACHER VISUALLY IMPAIRED- [address] [place] [address] PCP - General 11/02/24 documented as of this encounter
--- OUTSIDE RECORDS SUMMARY | 2025-08-03 19:35 | XMS_ITS | Encounter Summary ---
Author Organization [facility] Address [facility]6 [place] [address] Care Team Providers Care Brick Catcher Name Role Phone Dasha Conway Erlin [facility] Primary Care Provider [phone]- [phone] Encounter Details Date Type Department Care Team (Latest Contact Info) Description 06/01/2022 One Codex Message Enc [facility] Medical Group Multispecialty Care - [place] [address] [place] [address] [address] [place] [address] Curtis Diaz MD [address] [facility] 157 [place], [place] [phone] Medical marijuana card Social History Tobacco Use [...] Sex Assigned at Female 01/08/2021 9:43 AM CAPTAIN WAITER/WAITRESS Legal Sex Female 5:13 PM CDT Gender Identity Female 01/08/2021 9:43 AM CAPTAIN WAITER/WAITRESS Sexual Orientation Straight 01/08/2021 9 :43 AM CAPTAIN WAITER/WAITRESS COVID-19 Exposure Response Date Recorded In the last 10 days, have yo u been in contact with someone who was confirmed or suspected to have Coronavirus/COVID-19? No / Unsure 06/04/2022 9:36 AM CDT documented as of this encounter Functional Status * RETIRED Are you deaf or do you have serious difficulty hearing Answer Date of Assessment Author Status No 01/29/2022 10:15 PM CAPTAIN WAITER/WAITRESS Acti ve * RETIRED Are you blind or do you have serious difficulty seeing, even when wearing glasses? Answer Date of Assessment Author Status No 01/29/2022 10:15 PM CAPTAIN WAITER/WAITRESS Acti ve * Do you have serious [...] Rule Out 10/06/2022 10/06/2022 10/06/2022 1:21 PM CAPTAIN WAITER/WAITRESS COVID-19 Rule Out 10/06/2022 10/06/2022 10/07/2022 3:34 PM CAPTAIN WAITER/WAITRESS COVID-19 Rule Out 09/14/2023 09/14/2023 09/14/2023 3:48 PM CDT COVID-19 Rule Out 11/02/2024 11/02/2024 11/02/2024 4:03 PM CAPTAIN WAITER/WAITRESS Assessment Noted Time PHQ-9 Depression Total Score: 4 05/12/20 22 3:34 PM CDT documented as of this encounter Care Teams Brick Catcher Relationship Specialty Start Date End Date Dasha Conway FNP-STEPH [address] [place] [address] PCP - General 11/02/24 documented as of this encounter
--- OUTSIDE RECORDS SUMMARY | 2025-08-03 19:35 | XMS_ITS | Encounter Summary ---
Author Organization [facility] Address [facility]6 [place] [address] Care Team Providers Care Ear Nose And Throat Specialist Name Role Phone Dasha Conway [facility] Primary Care Provider +1- [phone] Encounter Details Date Type Department Care Team (Latest Contact Info) Description 02/02/2022 Boqiit Message Enc [facility] Medical Group Multispecialty Care - [place] [address] [address] [place] [address] [place] [address] [place] [address] 157 [place], [place] [phone] follow up appointment Social History Tobacco Use [...] Sex Assigned at Female 01/08/2021 9:43 AM RESERVES CLERK Legal Sex Female 5:13 PM CDT Gender Identity Female 01/08/2021 9:43 AM RESERVES CLERK Sexual Orientation Straight 01/08/2021 9: 43 AM RESERVES CLERK COVID-19 Exposure Response Date Recorded In the last 10 days, have yo u been in contact with someone who was confirmed or suspected to have Coronavirus/COVID-19? No / Unsure 02/02/2022 10:59 AM CDT documented as of this encounter Functional Status * RETIRED Are you deaf or do you have serious difficulty hearing Answer Date of Assessment Author Status No 01/29/2022 10:15 PM RESERVES CLERK Acti ve * RETIRED Are you blind or do you have serious difficulty seeing, even when wearing glasses? Answer Date of Assessment Author Status No 01/29/2022 10:15 PM RESERVES CLERK Acti ve * Do you have [...] Rule Out 10/06/2022 10/06/2022 10/06/2022 1:21 PM RESERVES CLERK COVID-19 Rule Out 10/06/2022 10/06/2022 10/07/2022 3:34 PM RESERVES CLERK COVID-19 Rule Out 09/14/2023 09/14/2023 09/14/2023 3:48 PM CDT COVID-19 Rule Out 11/02/2024 11/02/2024 11/02/2024 4:03 PM RESERVES CLERK Assessment Noted Time PHQ-9 Depression Total Score: 15 021 11:10 AM RESERVES CLERK documented as of this encounter Care Teams Ear Nose And Throat Specialist Relationship Specialty Start Date End Date Dasha Conway FNP- [address] [place] [address] PCP - General 11/02/24 documented as of this encounter
--- OUTSIDE RECORDS SUMMARY | 2025-08-03 19:35 | XMS_ITS | Encounter Summary ---
Author Organization [facility] Address [facility]6 [place] [address] Care Team Providers Care Latent Fingerprint Examiner Name Role Phone Dasha Conway Erlin [facility] Primary Care Provider +1- [phone] Encounter Details Date Type Department Care Team (Late st Contact Info) Description 02/07/2022 Marerua Ltdahart Message Enc [facility] Medical Group Multispecialty Care - [place] [address] [address] [place], [place] [address] Curtis Diaz MD [address] [place] [address] 157 [place] [address] Apology Social History Tobacco Use Types Packs/Day [...] Sex Assigned at Female 01/08/2021 9:43 AM LIGHTING SPECIALIST Legal Sex Female 5:13 PM CDT Gender Identity Female 01/08/2021 9:43 AM LIGHTING SPECIALIST Sexual Orientation Straight 01/08/2021 9: 43 AM LIGHTING SPECIALIST COVID-19 Exposure Response Date Recorded In the last 10 days, have yo u been in contact with someone who was confirmed or suspected to have Coronavirus/COVID-19? No / Unsure 02/10/2022 10:06 AM CDT documented as of this encounter Functional Status * RETIRED Are you deaf or do you have serious difficulty hearing Answer Date of Assessment Author Status No 01/29/2022 10:15 PM LIGHTING SPECIALIST Acti ve * RETIRED Are you blind or do you have serious difficulty seeing, even when wearing glasses? Answer Date of Assessment Author Status No 01/29/2022 10:15 PM LIGHTING SPECIALIST Acti ve * Do you have [...] Rule Out 10/06/2022 10/06/2022 10/06/2022 1:21 PM LIGHTING SPECIALIST COVID-19 Rule Out 10/06/2022 10/06/2022 10/07/2022 3:34 PM LIGHTING SPECIALIST COVID-19 Rule Out 09/14/2023 09/14/2023 09/14/2023 3:48 PM CDT COVID-19 Rule Out 11/02/2024 11/02/2024 11/02/2024 4:03 PM LIGHTING SPECIALIST Assessment Noted Time PHQ-9 Depression Total Score: 15 021 11:10 AM LIGHTING SPECIALIST documented as of this encounter Care Teams Latent Fingerprint Examiner Relationship Specialty Start Date End Date Dasha Conway FNP-BC [address] [place] [address] PCP - General 11/02/24 documented as of this encounter
--- OUTSIDE RECORDS SUMMARY | 2025-08-03 19:35 | XMS_ITS | Encounter Summary ---
Author Organization [facility] Address [facility]6 [place] [address] Care Team Providers Care Floral Decorator Name Role Phone Dasha Conway Erlin [facility] Primary Care Provider +1- [phone] Encounter Details Date Type Department Care Team (Late st Contact Info) Description 08/18/2022 [email or web address] Message Enc [facility] Medical Group Multispecialty Care - [place] [address] [place] [address] [address] [place] [address] [place] [address] [place] [address] 157 [place] [address] Gi doc Social History Tobacco Use Types [...] Assigned at Female 01/08/2021 9:43 AM MARKETING COPYWRITER Legal Sex Female 5:13 PM CDT Gender Identity Female 01/08/2021 9:43 AM MARKETING COPYWRITER Sexual Orientation Straight 01/08/2021 9: 43 AM MARKETING COPYWRITER COVID-19 Exposure Response Date Recorded In the [...] Out 10/06/2022 10/06/2022 10/06/2022 1:21 PM MARKETING COPYWRITER COVID-19 Rule Out 10/06/2022 10/06/2022 10/07/2022 3:34 PM MARKETING COPYWRITER COVID-19 Rule Out 09/14/2023 09/14/2023 09/14/2023 3:48 PM CDT COVID-19 Rule Out 11/02/2024 11/02/2024 11/02/2024 4:03 PM MARKETING COPYWRITER Assessment Noted Time PHQ-9 Depression Total Score: 4 05/12/20 22 3:34 PM CDT documented as of this encounter Care Teams Floral Decorator Relationship Specialty Start Date End Date Dasha Conway, GROUP BURNER MACHINE- [address] [place] [address] PCP - General 11/02/24 documented as of this encounter
--- OUTSIDE RECORDS SUMMARY | 2025-08-03 19:35 | XMS_ITS | Encounter Summary ---
Author Organization [facility] Address [facility]6 [place] [address] Care Team Providers Care Ad Clerk Name Role Phone Daryl Metzger MD Primary Care Provider Dasha Vicente [facility] Primary Care Provider +1- [phone] Encounter Details Date Type Department Care Team (Late st Contact Info) Description 08/27/2020 Skylabs Message [facility] [address] Harsh Sanchez MD [address] [place] [address] [place] [phone] RE: Question Social History Tobacco Use Types Packs/Day Years Used Date Smoking Tobacco: Every Day Cigarettes Smokeless Tobacco: Never Alcohol Use Standard Drinks/Week Comments Not Currently 0 (1 standard drink = 0.6 oz pur e alcohol) PHQ-2 Answer Date Recorded PHQ-2 Score 3 06/23/2020 Comments No Sex and Gender Information Value Date Recorded Sex Assigned at Female 01/08/2021 9:43 AM BUSINESS SCHOOL DEAN Legal Sex Female 5:13 PM CDT Gender Identity Female 01/08/2021 9:43 AM BUSINESS SCHOOL DEAN Sexual Orientation Straight 01/08/2021 9: 43 AM BUSINESS SCHOOL DEAN COVID-19 Exposure Response Date Recorded In the [...] Out 12/16/2020 12/16/2020 12/17/2020 4:31 PM BUSINESS SCHOOL DEAN COVID-19 Rule Out 06/05/2021 06/05/2021 06/05/2021 12:31 PM CDT COVID-19 Rule Out 10/23/2021 10/23/2021 10/23/2021 9:25 AM BUSINESS SCHOOL DEAN COVID-19 Rule Out 10/23/2021 10/23/2021 10/24/2021 12:21 AM BUSINESS SCHOOL DEAN COVID-19 Rule Out 01/15/2022 01/15/2022 01/20/2022 10:53 AM BUSINESS SCHOOL DEAN COVID-19 Rule Out 04/21/2022 04/21/2022 04/21/2022 11:42 AM CDT COVID-19 Rule Out 04/21/2022 04/21/2022 04/26/2022 7:02 AM CDT COVID-19 Rule Out 10/06/2022 10/06/2022 10/06/2022 1:21 PM BUSINESS SCHOOL DEAN COVID-19 Rule Out 10/06/2022 10/06/2022 10/07/2022 3:34 PM BUSINESS SCHOOL DEAN COVID-19 Rule Out 09/14/2023 09/14/2023 09/14/2023 3:48 PM CDT COVID-19 Rule Out 11/02/2024 11/02/2024 11/02/2024 4:03 PM BUSINESS SCHOOL DEAN Assessment Noted Time PHQ-9 Depression Total Score: 13 020 1:12 PM CDT documented as of this encounter Care Teams Ad Clerk Relationship Specialty Start Date End Date Daryl Metzger MD PCP - General FAMILY MEDICINE SPORTS MEDICINE 08/20/20 10/09/20 Dasha Conway, COMMUNICATIONS MEDIA PROFESSOR- [address] [place] [address] PCP - General 11/02/24 documented as of this encounter
--- OUTSIDE RECORDS SUMMARY | 2025-08-03 19:35 | XMS_ITS | Encounter Summary ---
Author Organization [facility] Address [facility]6 [place] [address] Care Team Providers Care Tunnel Kiln Repairer Name Role Phone Daryl Metzger MD Primary Care Provider Bradley Gallegos MD Primary Care Provider [phone] Daryl Metzger MD Primary Care Provider UnavailDasha Banks [facility] Primary Care Provider +1- [phone] Encounter Details Date Type Department Care Team (Late st Contact Info) Description 07/13/2020 MyCPixy Ltdt Message Enc [facility] Medical Group Family Medicine [facility] [address] [place] [address] Daryl Metzger MD Question Social History Tobacco Use Types Packs/Day Years Used Date Smoking Tobacco: Every Day Cigarettes Smokeless Tobacco: Never Alcohol Use Standard Drinks/Week Comments Not Currently 0 (1 standard drink = 0.6 oz pur e alcohol) PHQ-2 Answer Date Recorded PHQ-2 Score 3 06/23/2020 Comments No Sex and Gender Information Value Date Recorded Sex Assigned at Female 01/08/2021 9:43 AM RADIOTELEPHONE TECHNICAL OPERATOR Legal Sex Female 5:13 PM CDT Gender Identity Female 01/08/2021 9:43 AM RADIOTELEPHONE TECHNICAL OPERATOR Sexual Orientation Straight 01/08/2021 9: 43 AM RADIOTELEPHONE TECHNICAL OPERATOR COVID-19 Exposure Response Date Recorded In [...] Rule Out 12/16/2020 12/16/2020 12/17/2020 4:31 PM RADIOTELEPHONE TECHNICAL OPERATOR COVID-19 Rule Out 06/05/2021 06/05/2021 06/05/2021 12:31 PM CDT COVID-19 Rule Out 10/23/2021 10/23/2021 10/23/2021 9:25 AM RADIOTELEPHONE TECHNICAL OPERATOR COVID-19 Rule Out 10/23/2021 10/23/2021 10/24/2021 12:21 AM RADIOTELEPHONE TECHNICAL OPERATOR COVID-19 Rule Out 01/15/2022 01/15/2022 01/20/2022 10:53 AM RADIOTELEPHONE TECHNICAL OPERATOR COVID-19 Rule Out 04/21/2022 04/21/2022 04/21/2022 11:42 AM CDT COVID-19 Rule Out 04/21/2022 04/21/2022 04/26/2022 7:02 AM CDT COVID-19 Rule Out 10/06/2022 10/06/2022 10/06/2022 1:21 PM RADIOTELEPHONE TECHNICAL OPERATOR COVID-19 Rule Out 10/06/2022 10/06/2022 10/07/2022 3:34 PM RADIOTELEPHONE TECHNICAL OPERATOR COVID-19 Rule Out 09/14/2023 09/14/2023 09/14/2023 3:48 PM CDT COVID-19 Rule Out 11/02/2024 11/02/2024 11/02/2024 4:03 PM RADIOTELEPHONE TECHNICAL OPERATOR Assessment Noted Time PHQ-9 Depression Total Score: 13 020 1:12 PM CDT documented as of this encounter Care Teams Tunnel Kiln Repairer Relationship Specialty Start Date End Date Daryl Metzger MD PCP - General FAMILY MEDICINE SPORTS MEDICINE 06/23/20 08/12/20 Bradley Carmichael MD [address] [place] [address] [address] [address] PCP - General INTERNAL MEDICINE 08/13/20 08/19/20 Daryl Metzger MD PCP - General FAMILY MEDICINE SPORTS MEDICINE 08/20/20 10/09/20 Dasha Conway FNP- [address] [place] [address] PCP - General 11/02/24 documented as of this encounter
--- OUTSIDE RECORDS SUMMARY | 2025-08-03 19:35 | XMS_ITS | Encounter Summary ---
Author Organization [facility] Address [facility] [place] [address] Care Team Providers Care Dry Cleaning Attendant Name Role Phone Dasha Conway Erlin [facility] Primary Care Provider +1- [phone] Encounter Details Date Type Department Care Team (Late st Contact Info) Description 06/03/2022 Zigfuhart Message Enc [facility] Medical Group Multispecialty Care - [place] [address] [address] [place] [address] [place] [address] [place] [address] [address] [place] [address] Yeast infection Social History Tobacco Use Types [...] at Female 01/08/2021 9:43 AM FIRST AID TRAINER Legal Sex Female 5:13 PM CDT Gender Identity Female 01/08/2021 9:43 AM FIRST AID TRAINER Sexual Orientation Straight 01/08/2021 9: 43 AM FIRST AID TRAINER COVID-19 Exposure Response Date Recorded In the last 10 days, have yo u been in contact with someone who was confirmed or suspected to have Coronavirus/COVID-19? No / Unsure 06/04/2022 9:36 AM CDT documented as of this encounter Functional Status * RETIRED Are you deaf or do you have serious difficulty hearing Answer Date of Assessment Author Status No 01/29/2022 10:15 PM FIRST AID TRAINER Acti ve * RETIRED Are you blind or do you have serious difficulty seeing, even when wearing glasses? Answer Date of Assessment Author Status No 01/29/2022 10:15 PM FIRST AID TRAINER Acti ve * Do you have serious [...] Rule Out 10/06/2022 10/06/2022 10/06/2022 1:21 PM FIRST AID TRAINER COVID-19 Rule Out 10/06/2022 10/06/2022 10/07/2022 3:34 PM FIRST AID TRAINER COVID-19 Rule Out 09/14/2023 09/14/2023 09/14/2023 3:48 PM CDT COVID-19 Rule Out 11/02/2024 11/02/2024 11/02/2024 4:03 PM FIRST AID TRAINER Assessment Noted Time PHQ-9 Depression Total Score: 4 05/12/20 22 3:34 PM CDT documented as of this encounter Care Teams Dry Cleaning Attendant Relationship Specialty Start Date End Date Dasha Conway FNP-STEPH [address] [place] [address] PCP - General 11/02/24 documented as of this encounter
--- OUTSIDE RECORDS SUMMARY | 2025-08-03 19:35 | XMS_ITS | Encounter Summary ---
Author Organization [facility] Address [facility] [place] [address] Care Team Providers Care Furnace Maintenance Name Role Phone Dasha Conway Erlin [facility] Primary Care Provider +1- [phone] Encounter Details Date Type Department Care Team (Late st Contact Info) Description 12/03/2022 linkedüt Message Enc [facility] Medical Group Multispecialty Care - [place] [address] [place] [address] [address] [place] [address] [place] [address] [place] [address] [address] [place] [address] Blood sugar Social History Tobacco Use Types [...] Assigned at Female 01/08/2021 9:43 AM CUT OFF SAWYER LOG Legal Sex Female 5:13 PM CDT Gender Identity Female 01/08/2021 9:43 AM CUT OFF SAWYER LOG Sexual Orientation Straight 01/08/2021 9: 43 AM CUT OFF SAWYER LOG COVID-19 Exposure Response Date Recorded In the last 10 days, have asif rodriguez been in contact with someone who was confirmed or suspected to have Coronavirus/COVID-19? No / Unsure 12/03/2022 10:51 AM CUT OFF SAWYER LOG documented as of this encounter Functional Status [...] Out 11/02/2024 11/02/2024 11/02/2024 4:03 PM CUT OFF SAWYER LOG Assessment Noted Time PHQ-9 Depression Total Score: 11 1216/2 022 12:00 PM CUT OFF SAWYER LOG documented as of this encounter Care Teams Furnace Maintenance Relationship Specialty Start Date End Date Dasha Conway FNP-STEPH [address] [place], [place] [phone] PCP - General 11/02/24 documented as of this encounter
--- OUTSIDE RECORDS SUMMARY | 2025-08-03 19:35 | XMS_ITS | Encounter Summary ---
Author Organization [facility] Address Replaced by [facility] [place] [address] Care Team Providers Care Tile Setter Apprentice Name Role Phone Dasha Conway [facility] Primary Care Provider +1- [phone] Encounter Details Date Type Department Care Team (Late st Contact Info) Description 01/27/2022 Journalism Onlinehart Message Enc [facility] Medical Group Multispecialty Care - [place] [address] [address] [place], [place] [phone] Curtis Diaz MD [address] [place] [address] [address] [place], [place] [phone] Vertigo Social History Tobacco Use Types Packs/Day [...] Sex Assigned at Female 01/08/2021 9:43 AM FRONT OFFICE SUPERVISOR Legal Sex Female 5:13 PM CDT Gender Identity Female 01/08/2021 9:43 AM FRONT OFFICE SUPERVISOR Sexual Orientation Straight 01/08/2021 9: 43 AM FRONT OFFICE SUPERVISOR COVID-19 Exposure Response Date Recorded In the last 10 days, have yo u been in contact with someone who was confirmed or suspected to have Coronavirus/COVID-19? No / Unsure 01/30/2022 4:08 PM FRONT OFFICE SUPERVISOR documented as of this encounter Functional Status * Calculated C-SSRS Risk Score (Lifetime/Recent) Answer Date of Assessment Author Status No Risk Indicated 01/29/2022 9:14 AM Audra Mccain RN Active * [place] Suicide Severity Rating Scale (Screener/Recent Self-Report) Question [...] Rule Out 10/06/2022 10/06/2022 10/06/2022 1:21 PM FRONT OFFICE SUPERVISOR COVID-19 Rule Out 10/06/2022 10/06/2022 10/07/2022 3:34 PM FRONT OFFICE SUPERVISOR COVID-19 Rule Out 09/14/2023 09/14/2023 09/14/2023 3:48 PM CDT COVID-19 Rule Out 11/02/2024 11/02/2024 11/02/2024 4:03 PM FRONT OFFICE SUPERVISOR Assessment Noted Time PHQ-9 Depression Total Score: 15 12/14/2 021 11:10 AM FRONT OFFICE SUPERVISOR documented as of this encounter Care Teams Tile Setter Apprentice Relationship Specialty Start Date End Date Dasha Conway, PIE TOPPER- [address] [place] [address] PCP - General 11/02/24 documented as of this encounter
--- OUTSIDE RECORDS SUMMARY | 2025-08-03 19:35 | XMS_ITS | Encounter Summary ---
Author Organization [facility] Address [facility] [place] [address] Care Team Providers Care Park Interpretive Specialist Name Role Phone Dasha Conway [facility] Primary Care Provider +1- [phone] Encounter Details Date Type Department Care Team (Latest Contact Info) Description 03/08/2022 Infobloxt Message Enc [facility] Medical Group Multispecialty Care - [place] [address] [address] [place] [address] [place] [address] [place] [address] 157 [place], [place] [phone] Kidney infection Social History Tobacco Use Types [...] Sex Assigned at Female 01/08/2021 9:43 AM MEDICARE INTERVIEWER Legal Sex Female 5:13 PM CDT Gender Identity Female 01/08/2021 9:43 AM MEDICARE INTERVIEWER Sexual Orientation Straight 01/08/2021 9: 43 AM MEDICARE INTERVIEWER COVID-19 Exposure Response Date Recorded In the last 10 days, have yo u been in contact with someone who was confirmed or suspected to have Coronavirus/COVID-19? No / Unsure 03/10/2022 3:15 PM CDT documented as of this encounter Functional Status * RETIRED Are you deaf or do you have serious difficulty hearing Answer Date of Assessment Author Status No 01/29/2022 10:15 PM MEDICARE INTERVIEWER Acti ve * RETIRED Are you blind or do you have serious difficulty seeing, even when wearing glasses? Answer Date of Assessment Author Status No 01/29/2022 10:15 PM MEDICARE INTERVIEWER Acti ve * Do you have serious [...] Rule Out 10/06/2022 10/06/2022 10/06/2022 1:21 PM MEDICARE INTERVIEWER COVID-19 Rule Out 10/06/2022 10/06/2022 10/07/2022 3:34 PM MEDICARE INTERVIEWER COVID-19 Rule Out 09/14/2023 09/14/2023 09/14/2023 3:48 PM CDT COVID-19 Rule Out 11/02/2024 11/02/2024 11/02/2024 4:03 PM MEDICARE INTERVIEWER Assessment Noted Time PHQ-9 Depression Total Score: 15 021 11:10 AM MEDICARE INTERVIEWER documented as of this encounter Care Teams Park Interpretive Specialist Relationship Specialty Start Date End Date Dasha Conway FNP-BC [address] [place] [phone] PCP - General 11/02/24 documented as of this encounter
--- OUTSIDE RECORDS SUMMARY | 2025-08-03 19:35 | XMS_ITS | Encounter Summary ---
Author Organization [facility] Address [facility] [place] [address] Care Team Providers Care Hadoop Java Developer Name Role Phone Dasha Conway Erlin [facility] Primary Care Provider +1- [phone] Encounter Details Date Type Department Care Team (Latest Contact Info) Description 08/14/2021 CelebCallst Message Enc [facility] Medical Group Multispecialty Care - [place] [address] [place] [address] [address] [place] [address] [place] [address] [place] [address] 157 [place], [place] [phone] RE: Medication Questions Social History Tobacco Use [...] at Female 01/08/2021 9:43 AM MEDICAL RECORDS ADMINISTRATOR Legal Sex Female 5:13 PM CDT Gender Identity Female 01/08/2021 9:43 AM MEDICAL RECORDS ADMINISTRATOR Sexual Orientation Straight 01/08/2021 9: 43 AM MEDICAL RECORDS ADMINISTRATOR COVID-19 Exposure Response Date Recorded In [...] Out 10/23/2021 10/23/2021 10/23/2021 9:25 AM MEDICAL RECORDS ADMINISTRATOR COVID-19 Rule Out 10/23/2021 10/23/2021 10/24/2021 12:21 AM MEDICAL RECORDS ADMINISTRATOR COVID-19 Rule Out 01/15/2022 01/15/2022 01/20/2022 10:53 AM MEDICAL RECORDS ADMINISTRATOR COVID-19 Rule Out 04/21/2022 04/21/2022 04/21/2022 11:42 AM CDT COVID-19 Rule Out 04/21/2022 04/21/2022 04/26/2022 7:02 AM CDT COVID-19 Rule Out 10/06/2022 10/06/2022 10/06/2022 1:21 PM MEDICAL RECORDS ADMINISTRATOR COVID-19 Rule Out 10/06/2022 10/06/2022 10/07/2022 3:34 PM MEDICAL RECORDS ADMINISTRATOR COVID-19 Rule Out 09/14/2023 09/14/2023 09/14/2023 3:48 PM CDT COVID-19 Rule Out 11/02/2024 11/02/2024 11/02/2024 4:03 PM MEDICAL RECORDS ADMINISTRATOR Assessment Noted Time PHQ-9 Depression Total Score: 22 021 9:18 AM CDT documented as of this encounter Care Teams Hadoop Java Developer Relationship Specialty Start Date End Date Dasha Conway FNP-STEPH [address] [place] [address] PCP - General 11/02/24 documented as of this encounter
--- OUTSIDE RECORDS SUMMARY | 2025-08-03 19:35 | XMS_ITS | Encounter Summary ---
Author Organization [facility] Address [facility]6 [place] [address] Care Team Providers Care Detasseler Name Role Phone Dasha Conway Erlin [facility] Primary Care Provider +1- [phone] Encounter Details Date Type Department Care Team (Latest Contact Info) Description 07/25/2022 Stevia Firstt Message Enc [facility] Medical Group Multispecialty Care - [place] [address] [place] [address] [address] [place] [address] Curtis Diaz MD [address] [facility] 157 [place], [place] [phone] Psychiatric meds Social History Tobacco Use Types [...] Sex Assigned at Female 01/08/2021 9:43 AM STONE MASON Legal Sex Female 5:13 PM CDT Gender Identity Female 01/08/2021 9:43 AM STONE MASON Sexual Orientation Straight 01/08/2021 9: 43 AM STONE MASON COVID-19 Exposure Response Date Recorded In [...] Rule Out 10/06/2022 10/06/2022 10/06/2022 1:21 PM STONE MASON COVID-19 Rule Out 10/06/2022 10/06/2022 10/07/2022 3:34 PM STONE MASON COVID-19 Rule Out 09/14/2023 09/14/2023 09/14/2023 3:48 PM CDT COVID-19 Rule Out 11/02/2024 11/02/2024 11/02/2024 4:03 PM STONE MASON Assessment Noted Time PHQ-9 Depression Total Score: 4 05/12/20 22 3:34 PM CDT documented as of this encounter Care Teams Detasseler Relationship Specialty Start Date End Date Dasha Conway, SURGICAL SALES REPRESENTATIVE- [address] [place] [address] PCP - General 11/02/24 documented as of this encounter
--- OUTSIDE RECORDS SUMMARY | 2025-08-03 19:35 | XMS_ITS | Encounter Summary ---
Author Organization [facility] Address [facility] [place] [address] Care Team Providers Care Barn And Property Manager Name Role Phone Daryl Metzger MD Primary Care Provider Dasha Vicente [facility] Primary Care Provider +1- [phone] Encounter Details Date Type Department Care Team (Late st Contact Info) Description 08/25/2020 MyChart Message Enc [facility] Medical Group Multispecialty Care - [facility] [address] [facility] [address] [place] [address] Donovan Parks MD [address] [facility] [address] [place] [address] RE: Question Social History Tobacco Use Types Packs/Day Years Used Date Smoking Tobacco: Every Day Cigarettes Smokeless Tobacco: Never Alcohol Use Standard Drinks/Week Comments Not Currently 0 (1 standard drink = 0.6 oz pur e alcohol) PHQ-2 Answer Date Recorded PHQ-2 Score 3 06/23/2020 Comments No Sex and Gender Information Value Date Recorded Sex Assigned at Female 01/08/2021 9:43 AM OBSTETRICS TECHNICIAN Legal Sex Female 5:13 PM CDT Gender Identity Female 01/08/2021 9:43 AM OBSTETRICS TECHNICIAN Sexual Orientation Straight 01/08/2021 9: 43 AM OBSTETRICS TECHNICIAN COVID-19 Exposure Response Date Recorded In [...] Rule Out 12/16/2020 12/16/2020 12/17/2020 4:31 PM OBSTETRICS TECHNICIAN COVID-19 Rule Out 06/05/2021 06/05/2021 06/05/2021 12:31 PM CDT COVID-19 Rule Out 10/23/2021 10/23/2021 10/23/2021 9:25 AM OBSTETRICS TECHNICIAN COVID-19 Rule Out 10/23/2021 10/23/2021 10/24/2021 12:21 AM OBSTETRICS TECHNICIAN COVID-19 Rule Out 01/15/2022 01/15/2022 01/20/2022 10:53 AM OBSTETRICS TECHNICIAN COVID-19 Rule Out 04/21/2022 04/21/2022 04/21/2022 11:42 AM CDT COVID-19 Rule Out 04/21/2022 04/21/2022 04/26/2022 7:02 AM CDT COVID-19 Rule Out 10/06/2022 10/06/2022 10/06/2022 1:21 PM OBSTETRICS TECHNICIAN COVID-19 Rule Out 10/06/2022 10/06/2022 10/07/2022 3:34 PM OBSTETRICS TECHNICIAN COVID-19 Rule Out 09/14/2023 09/14/2023 09/14/2023 3:48 PM CDT COVID-19 Rule Out 11/02/2024 11/02/2024 11/02/2024 4:03 PM OBSTETRICS TECHNICIAN Assessment Noted Time PHQ-9 Depression Total Score: 13 020 1:12 PM CDT documented as of this encounter Care Teams Barn And Property Manager Relationship Specialty Start Date End Date Daryl Metzger MD PCP - General FAMILY MEDICINE SPORTS MEDICINE 08/20/20 10/09/20 Dasha Conway FNP- [address] [place] [address] PCP - General 11/02/24 documented as of this encounter
--- OUTSIDE RECORDS SUMMARY | 2025-08-03 19:35 | XMS_ITS | Encounter Summary ---
Author Organization [facility] Address [facility]6 [place] [address] Care Team Providers Care Coating And Baking Operator Name Role Phone Dasha Conway Erlin [facility] Primary Care Provider +1- [phone] Encounter Details Date Type Department Care Team (Late st Contact Info) Description 06/23/2022 britebillt Message Enc [facility] Medical Group Multispecialty Care - [place] [address] [place] [address] [address] [place], [place] [phone] [place] [address] [place] [address] 157 [place], [place] [phone] Liver pain? Social History Tobacco Use Types [...] Sex Assigned at Female 01/08/2021 9:43 AM AUDITING MANAGER Legal Sex Female 5:13 PM CDT Gender Identity Female 01/08/2021 9:43 AM AUDITING MANAGER Sexual Orientation Straight 01/08/2021 9: 43 AM AUDITING MANAGER COVID-19 Exposure Response Date Recorded In [...] Rule Out 10/06/2022 10/06/2022 10/06/2022 1:21 PM AUDITING MANAGER COVID-19 Rule Out 10/06/2022 10/06/2022 10/07/2022 3:34 PM AUDITING MANAGER COVID-19 Rule Out 09/14/2023 09/14/2023 09/14/2023 3:48 PM CDT COVID-19 Rule Out 11/02/2024 11/02/2024 11/02/2024 4:03 PM AUDITING MANAGER Assessment Noted Time PHQ-9 Depression Total Score: 4 05/12/20 22 3:34 PM CDT documented as of this encounter Care Teams Coating And Baking Operator Relationship Specialty Start Date End Date Dasha Conway FNP- [address] [place] [address] PCP - General 11/02/24 documented as of this encounter
--- OUTSIDE RECORDS SUMMARY | 2025-08-03 19:35 | XMS_ITS | Encounter Summary ---
Author Organization [facility] Address [facility] [place] [address] Care Team Providers Care Skelp Processor Name Role Phone Dasha Conway Erlin [facility] Primary Care Provider +1- [phone] Encounter Details Date Type Department Care Team (Late st Contact Info) Description 10/20/2022 Cinepapayat Message Enc [facility] Medical Group Multispecialty Care - [place] [address] [address] [place], [place] [phone] [place] [address] [place] [address] 157 [place], [place] [phone] Mammogram Social History Tobacco Use Types Packs/Day [...] Sex Assigned at Female 01/08/2021 9:43 AM ETL LEAD Legal Sex Female 5:13 PM CDT Gender Identity Female 01/08/2021 9:43 AM ETL LEAD Sexual Orientation Straight 01/08/2021 9: 43 AM ETL LEAD COVID-19 Exposure Response Date Recorded In the last 10 days, have asif rodriguez been in contact with someone who was confirmed or suspected to have Coronavirus/COVID-19? No / Unsure 10/06/2022 12:33 PM ETL LEAD documented as of this encounter Functional Status [...] Rule Out 11/02/2024 11/02/2024 11/02/2024 4:03 PM ETL LEAD Assessment Noted Time PHQ-9 Depression Total Score: 4 05/12/20 22 3:34 PM CDT documented as of this encounter Care Teams Skelp Processor Relationship Specialty Start Date End Date Dasha Conway FNP-STEPH [address] [place] [address] PCP - General 11/02/24 documented as of this encounter
--- OUTSIDE RECORDS SUMMARY | 2025-08-03 19:35 | XMS_ITS | Encounter Summary ---
Author Organization [facility] Address [facility]6 [place] [address] Care Team Providers Care Adjunct Latin Professor Name Role Phone Dasha Conway Erlin [facility] Primary Care Provider +1- [phone] Encounter Details Date Type Department Care Team (Latest Contact Info) Description 06/23/2022 RF-iT Solutions Message Enc [facility] Medical Group Multispecialty Care - [place] [address] [place] [address] [address] [place] [address] Curtis Diaz MD [address] [facility] [address] [place], [place] [phone] Question regarding CT ABD+PEL WWO CON Social [...] Sex Assigned at Female 01/08/2021 9:43 AM LASTING MACHINE OPERATOR BED Legal Sex Female 5:13 PM CDT Gender Identity Female 01/08/2021 9:43 AM LASTING MACHINE OPERATOR BED Sexual Orientation Straight 01/08/2021 9: 43 AM LASTING MACHINE OPERATOR BED COVID-19 Exposure Response Date Recorded In the [...] Rule Out 10/06/2022 10/06/2022 10/06/2022 1:21 PM LASTING MACHINE OPERATOR BED COVID-19 Rule Out 10/06/2022 10/06/2022 10/07/2022 3:34 PM LASTING MACHINE OPERATOR BED COVID-19 Rule Out 09/14/2023 09/14/2023 09/14/2023 3:48 PM CDT COVID-19 Rule Out 11/02/2024 11/02/2024 11/02/2024 4:03 PM LASTING MACHINE OPERATOR BED Assessment Noted Time PHQ-9 Depression Total Score: 4 05/12/20 22 3:34 PM CDT documented as of this encounter Care Teams Adjunct Latin Professor Relationship Specialty Start Date End Date Dasha Conway, MAKE READY MECHANIC- [address] [place] [address] PCP - General 11/02/24 documented as of this encounter
--- OUTSIDE RECORDS SUMMARY | 2025-08-03 19:35 | XMS_ITS | Encounter Summary ---
Author Organization [facility] Address [facility] [place] [address] Care Team Providers Care Database Administration Project Manager Name Role Phone Dasha Conway Erlin [facility] Primary Care Provider +1- [phone] Encounter Details Date Type Department Care Team (Late st Contact Info) Description 03/24/2022 Echo Therapeuticst Message Enc [facility] Medical Group Multispecialty Care - [place] [address] [address] [place], [place] [phone] [place] [address] [place] [address] 157 [place] [address] Dexamethasone Social History Tobacco Use Types Packs/Day [...] Sex Assigned at Female 01/08/2021 9:43 AM SURGICAL SCRUB TECH Legal Sex Female 5:13 PM CDT Gender Identity Female 01/08/2021 9:43 AM SURGICAL SCRUB TECH Sexual Orientation Straight 01/08/2021 9: 43 AM SURGICAL SCRUB TECH COVID-19 Exposure Response Date Recorded In the last 10 days, have yo michael been in contact with someone who was confirmed or suspected to have Coronavirus/COVID-19? No / Unsure 03/20/2022 10:11 AM CDT documented as of this encounter Functional Status * RETIRED Are you deaf or do you have serious difficulty hearing Answer Date of Assessment Author Status No 01/29/2022 10:15 PM SURGICAL SCRUB TECH Acti ve * RETIRED Are you blind or do you have serious difficulty seeing, even when wearing glasses? Answer Date of Assessment Author Status No 01/29/2022 10:15 PM SURGICAL SCRUB TECH Acti ve * Do you have serious [...] Rule Out 10/06/2022 10/06/2022 10/06/2022 1:21 PM SURGICAL SCRUB TECH COVID-19 Rule Out 10/06/2022 10/06/2022 10/07/2022 3:34 PM SURGICAL SCRUB TECH COVID-19 Rule Out 09/14/2023 09/14/2023 09/14/2023 3:48 PM CDT COVID-19 Rule Out 11/02/2024 11/02/2024 11/02/2024 4:03 PM SURGICAL SCRUB TECH Assessment Noted Time PHQ-9 Depression Total Score: 15 021 11:10 AM SURGICAL SCRUB TECH documented as of this encounter Care Teams Database Administration Project Manager Relationship Specialty Start Date End Date Dasha Conway, MUSEUM ASSISTANT- [address] [place] [phone] PCP - General 11/02/24 documented as of this encounter
--- OUTSIDE RECORDS SUMMARY | 2025-08-03 19:35 | XMS_ITS | Encounter Summary ---
Author Organization [facility] Address [facility] [place] [address] Care Team Providers Care Beaver Trapper Name Role Phone Dasha Conway Erlin [facility] Primary Care Provider +1- [phone] Encounter Details Date Type Department Care Team (Late st Contact Info) Description 06/13/2022 Copyright Agentt Message Enc [facility] Medical Group Multispecialty Care - [place] [address] [place] [address] [address] [place] [address] [place] [address] [place] [address] 157 [place] [address] Blood sugar Social History Tobacco Use Types [...] Sex Assigned at Female 01/08/2021 9:43 AM COIN MACHINE MECHANIC Legal Sex Female 5:13 PM CDT Gender Identity Female 01/08/2021 9:43 AM COIN MACHINE MECHANIC Sexual Orientation Straight 01/08/2021 9: 43 AM COIN MACHINE MECHANIC COVID-19 Exposure Response Date Recorded [...] Assessment Author Status No 01/29/2022 10:15 PM COIN MACHINE MECHANIC Acti ve * RETIRED Are you blind or do you have serious difficulty seeing, even when wearing glasses? Answer Date of Assessment Author Status No 01/29/2022 10:15 PM COIN MACHINE MECHANIC Acti ve * Do you have serious difficulty walking or climbing stairs? Answer Date of Assessment Author Status No 01/29/2022 10:15 PM COIN MACHINE MECHANIC Nanette Leonard RN Active * Do you [...] PM FAUZIAT Boyd Millard RN Active * [place] Suicide Severity Rating Scale (Screener/Recent Self-Report) Question [...] Date Author Status No 01/29/2022 10:15 PM COIN MACHINE MECHANIC Nanette Leonard RN Active documented in this [...] Rule Out 10/06/2022 10/06/2022 10/06/2022 1:21 PM COIN MACHINE MECHANIC COVID-19 Rule Out 10/06/2022 10/06/2022 10/07/2022 3:34 PM COIN MACHINE MECHANIC COVID-19 Rule Out 09/14/2023 09/14/2023 09/14/2023 3:48 PM CDT COVID-19 Rule Out 11/02/2024 11/02/2024 11/02/2024 4:03 PM COIN MACHINE MECHANIC Assessment Noted Time PHQ-9 Depression Total Score: 4 05/12/20 3:34 PM CDT documented as of this encounter Care Teams Beaver Trapper Relationship Specialty Start Date End Date Dasha Conway, CHRISTINE-STEPH [address] [place] [address] PCP - General 11/02/24 documented as of this encounter
--- OUTSIDE RECORDS SUMMARY | 2025-08-03 19:35 | XMS_ITS | Encounter Summary ---
Author Organization [facility] Address [facility] [place] [address] Care Team Providers Care Retail Parts Pro Name Role Phone Daryl Metzger MD Primary Care Provider Bradley Gallegos MD Primary Care Provider [phone] Daryl Metzger MD Primary Care Provider UnavailDasha Banks [facility] Primary Care Provider [phone] Encounter Details Date Type Department Care Team (Late st Contact Info) Description 07/13/2020 MyChart Message Enc [facility] Medical Group Family Medicine - [place] [address] [place] [address] Daryl Metzger MD RE: Referral Request Social [...] AM TANK ERECTOR Sexual Orientation Straight 01/08/2021 9: 43 AM TANK ERECTOR COVID-19 Exposure Response Date [...] Rule Out 12/16/2020 12/16/2020 12/17/2020 4:31 PM TANK ERECTOR COVID-19 Rule Out 06/05/2021 06/05/2021 06/05/2021 12:31 PM CDT COVID-19 Rule Out 10/23/2021 10/23/2021 10/23/2021 9:25 AM TANK ERECTOR COVID-19 Rule Out 10/23/2021 10/23/2021 10/24/2021 12:21 AM TANK ERECTOR COVID-19 Rule Out 01/15/2022 01/15/2022 01/20/2022 10:53 AM TANK ERECTOR COVID-19 Rule Out 04/21/2022 04/21/2022 04/21/2022 [...] as of this encounter Care Teams Retail Parts Pro Relationship Specialty Start Date End Date Daryl Metzger MD PCP - General FAMILY MEDICINE SPORTS MEDICINE 06/23/20 08/12/20 Bradley Carmichael MD [address] [place] [address] 180 [facility]ILDING [address] [place] [address] PCP - General INTERNAL MEDICINE 08/13/20 08/19/20 Daryl Metzger MD PCP - General FAMILY MEDICINE SPORTS MEDICINE 08/20/20 10/09/20 Dasha Conway, CAT BREEDER- [address] [place] [id number] PCP - General 11/02/24 documented as of this encounter
--- OUTSIDE RECORDS SUMMARY | 2025-08-03 19:35 | XMS_ITS | Encounter Summary ---
Author Organization [facility] Address [facility] [place] [address] Care Team Providers Care Catering Convention Services Manager Name Role Phone Daryl Metzger MD Primary Care Provider Bradley Gallegos MD Primary Care Provider [phone] Daryl Metzger MD Primary Care Provider UnavailDasha Banks [facility] Primary Care Provider [phone] Encounter Details Date Type Department Care Team (Late st Contact Info) Description 08/07/2020 MyCTemplafyt Message Enc [facility] Medical Group Family Medicine - [place] [address] [place] [address] Daryl Metzger MD RE: Follow Up/Update Social [...] Sex Assigned at Female 01/08/2021 9:43 AM PLASTICS PATTERNMAKER Legal Sex Female 5:13 PM CDT Gender Identity Female 01/08/2021 9:43 AM PLASTICS PATTERNMAKER Sexual Orientation Straight 01/08/2021 9: 43 AM PLASTICS PATTERNMAKER COVID-19 Exposure Response Date Recorded In the [...] Rule Out 12/16/2020 12/16/2020 12/17/2020 4:31 PM PLASTICS PATTERNMAKER COVID-19 Rule Out 06/05/2021 06/05/2021 06/05/2021 12:31 PM CDT COVID-19 Rule Out 10/23/2021 10/23/2021 10/23/2021 9:25 AM PLASTICS PATTERNMAKER COVID-19 Rule Out 10/23/2021 10/23/2021 10/24/2021 12:21 AM PLASTICS PATTERNMAKER COVID-19 Rule Out 01/15/2022 01/15/2022 01/20/2022 10:53 AM PLASTICS PATTERNMAKER COVID-19 Rule Out 04/21/2022 04/21/2022 04/21/2022 11:42 AM CDT COVID-19 Rule Out 04/21/2022 04/21/2022 04/26/2022 7:02 AM CDT COVID-19 Rule Out 10/06/2022 10/06/2022 10/06/2022 1:21 PM PLASTICS PATTERNMAKER COVID-19 Rule Out 10/06/2022 10/06/2022 10/07/2022 3:34 PM PLASTICS PATTERNMAKER COVID-19 Rule Out 09/14/2023 09/14/2023 09/14/2023 3:48 PM CDT COVID-19 Rule Out 11/02/2024 11/02/2024 11/02/2024 4:03 PM PLASTICS PATTERNMAKER Assessment Noted Time PHQ-9 Depression Total Score: 13 020 1:12 PM CDT documented as of this encounter Care Teams Catering Convention Services Manager Relationship Specialty Start Date End Date Daryl Metzger MD PCP - General FAMILY MEDICINE SPORTS MEDICINE 06/23/20 08/12/20 Bradley Carmichael MD [address] [place] [address] MEDICAL OFFICE BUILDING [address] [place] [address] PCP - General INTERNAL MEDICINE 08/13/20 08/19/20 Daryl Metzger MD PCP - General FAMILY MEDICINE SPORTS MEDICINE 08/20/20 10/09/20 Dasha Conway FNP- [address] [place] [id number] PCP - General 11/02/24 documented as of this encounter
--- OUTSIDE RECORDS SUMMARY | 2025-08-03 19:35 | XMS_ITS | Encounter Summary ---
Author Organization [facility] Address [facility] [place] [address] Care Team Providers Care Director Of Speech Pathology Name Role Phone Dasha Conway Erlin [facility] Primary Care Provider [phone] Encounter Details Date Type Department Care Team (Late st Contact Info) Description 01/25/2022 PinoyTravelhart Message Enc [facility] Medical Group Multispecialty Care - [place] [address] [address] [place] [address] Curtis Diaz MD [address] [place] [address] [place], [place] [id number] Uti? Social History Tobacco Use Types Packs/Day [...] Sex Assigned at Female 01/08/2021 9:43 AM GLASS CUTTER Legal Sex Female 5:13 PM CDT Gender Identity Female 01/08/2021 9:43 AM GLASS CUTTER Sexual Orientation Straight 01/08/2021 9: 43 AM GLASS CUTTER COVID-19 Exposure Response Date Recorded In the last 10 days, have yo u been in contact with someone who was confirmed or suspected to have Coronavirus/COVID-19? No / Unsure 01/26/2022 4:23 AM GLASS CUTTER documented as of this encounter Functional Status * Calculated C-SSRS Risk Score (Lifetime/Recent) Answer Date of Assessment Author Status No Risk Indicated 01/26/2022 11:53 AM GLASS CUTTER Pablo Saleem RN Active * [place] Suicide Severity Rating Scale (Screener/Recent Self-Report) Question [...] Rule Out 10/06/2022 10/06/2022 10/06/2022 1:21 PM GLASS CUTTER COVID-19 Rule Out 10/06/2022 10/06/2022 10/07/2022 3:34 PM GLASS CUTTER COVID-19 Rule Out 09/14/2023 09/14/2023 09/14/2023 3:48 PM CDT COVID-19 Rule Out 11/02/2024 11/02/2024 11/02/2024 4:03 PM GLASS CUTTER Assessment Noted Time PHQ-9 Depression Total Score: 15 021 11:10 AM GLASS CUTTER documented as of this encounter Care Teams Director Of Speech Pathology Relationship Specialty Start Date End Date Dasha Conway, BSA OFFICER-BC [address] [place] [id number] PCP - General 11/02/24 documented as of this encounter
--- OUTSIDE RECORDS SUMMARY | 2025-08-03 19:35 | XMS_ITS | Encounter Summary ---
Author Organization [facility] Address [facility] [place] [address] Care Team Providers Care Wastewater Treatment Plant Chemist Name Role Phone Daryl Metzger MD Primary Care Provider Dasha Vicente [facility] Primary Care Provider [phone] Encounter Details Date Type Department Care Team (Late st Contact Info) Description 08/24/2020 MyChart Message Enc [facility] Medical Group Multispecialty Care - [facility] [address] [facility] [address] [place] [address] Donovan Parks MD [address] [facility] [address] [place] [address] Question Social History Tobacco Use Types Packs/Day Years Used Date Smoking Tobacco: Every Day Cigarettes Smokeless Tobacco: Never Alcohol Use Standard Drinks/Week Comments Not Currently 0 (1 standard drink = 0.6 oz pur e alcohol) PHQ-2 Answer Date Recorded PHQ-2 Score 3 06/23/2020 Comments No Sex and Gender Information Value Date Recorded Sex Assigned at Female 01/08/2021 9:43 AM HAND PAINT MIXER Legal Sex Female 5:13 PM CDT Gender Identity Female 01/08/2021 9:43 AM HAND PAINT MIXER Sexual Orientation Straight 01/08/2021 9: 43 AM HAND PAINT MIXER COVID-19 Exposure Response Date Recorded In the [...] Rule Out 12/16/2020 12/16/2020 12/17/2020 4:31 PM HAND PAINT MIXER COVID-19 Rule Out 06/05/2021 06/05/2021 06/05/2021 12:31 PM CDT COVID-19 Rule Out 10/23/2021 10/23/2021 10/23/2021 9:25 AM HAND PAINT MIXER COVID-19 Rule Out 10/23/2021 10/23/2021 10/24/2021 12:21 AM HAND PAINT MIXER COVID-19 Rule Out 01/15/2022 01/15/2022 01/20/2022 10:53 AM HAND PAINT MIXER COVID-19 Rule Out 04/21/2022 04/21/2022 04/21/2022 11:42 AM CDT COVID-19 Rule Out 04/21/2022 04/21/2022 04/26/2022 7:02 AM CDT COVID-19 Rule Out 10/06/2022 10/06/2022 10/06/2022 1:21 PM HAND PAINT MIXER COVID-19 Rule Out 10/06/2022 10/06/2022 10/07/2022 3:34 PM HAND PAINT MIXER COVID-19 Rule Out 09/14/2023 09/14/2023 09/14/2023 3:48 PM CDT COVID-19 Rule Out 11/02/2024 11/02/2024 11/02/2024 4:03 PM HAND PAINT MIXER Assessment Noted Time PHQ-9 Depression Total Score: 13 020 1:12 PM CDT documented as of this encounter Care Teams Wastewater Treatment Plant Chemist Relationship Specialty Start Date End Date Daryl Metzger MD PCP - General FAMILY MEDICINE SPORTS MEDICINE 08/20/20 10/09/20 Dasha Conway FNP- [address] [place] [id number] PCP - General 11/02/24 documented as of this encounter
--- OUTSIDE RECORDS SUMMARY | 2025-08-03 19:35 | XMS_ITS | Clinical Summary ---
Author Organization [facility] [address] Address [address] [place] [address] Care Team Providers Care Condenser Winder Name Role Phone Donovan Parks MD Unavailable Dasha Conawy NP Primary Care Provider [phone] Allergies Active Allergy Reactions Criticality Noted Date [...] 11/06/2024 Assessment & Plan (11/06/2024 3:13 PM CERAMIST): Myocardial ischemia ruled out. Differential also includes [...] symptoms Assessment & Plan (10/10/2024 9:05 PM CERAMIST): States that she has tried multiple medications [...] drowsiness. Assessment & Plan (10/10/2024 9:06 PM CERAMIST): Concern for M.S. will get updated MRI [...] lab Assessment & Plan (10/10/2024 9:03 PM CERAMIST): Stable. Not currently on medication. A1c has been 6.1% . Will continue to monitor Assessment & Plan (08/27/2024 7:48 AM CDT): Well controlled without medication. A1c 6%. Recent labs done at [facility]. MTHFR mutation 01/28/2020 Pericardial effusion 10/04/2019 Overview (10/04/2019): Echo (08/12/18): moderate pericardial effusion with no evidence of tamponade. EF 60-70% Echo (08/22/18) trivial (barely visible) pericardial effusion, EF 50-55% Assessment & Plan (11/06/2024 3:07 PM CERAMIST): Small pericardial effusion seen on echo done at [facility], which appears to be an improvement [...] past. Assessment & Plan (11/06/2024 3:09 PM CERAMIST): Has been told she has has fibromyalgia in the past. Differential includes a fibromyalgia flare. She had received an Rx for Decadron from the ER at [facility], I encouraged her to go pick that up from the pharmacy and try that this week Assessment & Plan (12/14/2021 11:42 AM CERAMIST): We had started LDN in 03/2020 however [...] to her PCP. Will give referral to [facility] PT pain program in [place], [place]. Assessment & Plan (11/30/2021 3:33 PM CERAMIST): Last seen in 03/2020 after being lost [...] benefit and potential interaction with Dulera per livestock yard attendant. Started LDN 4.5mg daily on 04/12/2020. Denies side effects but also denies any benefit at this time. Still complaining of severe generalized pain, fatigue, and insomnia. States dilaudid BID helps her hand pain. Recommend she follow up with pcp as they were originally prescribing this. [facility] Continue LDN 4.5mg daily and give this more time tot take effect. Avoid Cymbalta and amitriptyline as patient reports suicidal ideation with antidepressants in the past. Failed gabapentin and had side effects to Lyrica. Follow up in 4-6 weeks. Sooner if needed. Discussed with Dr. Soler. Assessment & Plan (01/08/2020 3:02 PM CERAMIST): Tolerating flexeril 10mg BID and reports some [...] Soler. Assessment & Plan (12/26/2019 10:32 AM CERAMIST): Tolerating tizanidine 4mg TID and notes some [...] office. Assessment & Plan (11/28/2019 12:40 PM CERAMIST): Tolerating tizanidine 2mg BID and feels it [...] needed. Assessment & Plan (10/16/2019 4:20 PM CERAMIST): US right hand/wrist (10/09/19):Mild effusions and power doppler on examination which will have to be correlated clinically. Grade 1 power doppler in the wrist and radial/scaphoid joint. Grade 1 effusion in the 3rd PIP joint. An enlarged median nerve is identified. Serologies revealed an elevated WBC (15.1), however other serological testing was unremarkable. Radiographs from previous solution architect revealed mild degenerative changes in the lumbar [...] Soler. Assessment & Plan (10/02/2019 4:02 PM CERAMIST): Patient presents with widespread pain in her hands, knees, and feet for the past 3-4 months. Has generalized pruritic, red papules on torso. Reports photosensitivity, pleuritic pains, cough however is a smoker, dry eyes and mouth, and oral ulcers. Currently on prednisone 20mg taper without any improvement of her symptoms. Synovitis with tenderness noted on peripheral joint exam. Soft tissue tenderness noted [id number] back on exam. FHx of 2 sisters with fibromyalgia and mother with psoriatic arthritis. Had x-rays through previous rheum which were scanned into Epic today. Previous serologies were also unremarkable. Symptoms and exam are suspicious for fibromyalgia. Because recent CY was negative per previous solution architect, it makes the possibility of SLE less [...] 01/03/2018 Assessment & Plan (01/03/2018 4:31 PM CERAMIST): Differential would include euthroid sick syndrome, Subclinical [...] 01/17/2015 Assessment & Plan (11/06/2024 3:09 PM CERAMIST): Differential also includes asthma. She has an [...] unchanged. Assessment & Plan (12/14/2021 11:43 AM CERAMIST): Repeat serologies with AVISE revealed only a [...] currently on Xarelto. Will give referral to [facility] PT pain program. Discussed scheduling f/u in 4 months however there is not much in terms of treatment management that we would be able to offer at this point. Patient spoke with Dr. Soler as well. Assessment & Plan (11/30/2021 3:33 PM CERAMIST): Previously reported photosensitivity, pleuritic pains, cough however [...] time. Assessment & Plan (01/08/2020 1:59 PM CERAMIST): Reports photosensitivity, pleuritic pains, cough however is a smoker, dry eyes and mouth, and oral ulcers. Repeat AVISE revealed a low positive RF, however no obvious synovitis noted on exam today and previous US was unremarkable. Symptoms do not respond to steroids. Assessment & Plan (12/26/2019 10:35 AM CERAMIST): Reports photosensitivity, pleuritic pains, cough however is [...] 08/23/2024 Assessment & Plan (12/14/2021 11:09 AM CERAMIST): C/o red, pruritic papules over torso. FHx of mother with psoriatic arthritis. Pictures of rash on back sent via MyChart appear hive-like and do not have any erythema or notable scale. Recommend f/u with a molder sweep. Assessment & Plan (11/30/2021 3:31 PM CERAMIST): C/o red, pruritic papules over torso. FHx of mother with psoriatic arthritis. Recommend f/u with dermatology. Assessment & Plan (04/15/2020 10:19 AM CDT): Previous exam noted dry flaky, skin on hands with red demarcation around wrists suspicious for psoriasis. Now patient complaining of scaling rash on scalp. FHx of mother with psoriatic arthritis. Assessment & Plan (01/08/2020 1:58 PM CERAMIST): Previous exam noted dry flaky, skin on hands with red demarcation around wrists suspicious for psoriasis. Now patient complaining of scaling rash on scalp. FHx of mother with psoriatic arthritis. Assessment & Plan (12/26/2019 10:21 AM CERAMIST): Previous exam noted dry flaky, skin on hands with red demarcation around wrists suspicious for psoriasis. Now patient complaining of scaling rash on scalp. FHx of mother with psoriatic arthritis. Assessment & Plan (11/28/2019 12:41 PM CERAMIST): Rash improved once prednisone was stopped. Saw molder sweep Dr. Evelyn Gonzales who gave patinet triamcinalone cream, however patient has not started this as her rash is mostly on her face now. Previous exam noted dry, flaky skin on hands with red demarcation around wrists which is suspicious for psoriasis. FHx of mother with psoriatic arthritis. Patient given molder sweep Dr. Rose's information at previous visit. Assessment & Plan (10/16/2019 1:57 PM CERAMIST): Rash improved once prednisone was stopped. Saw molder sweep Dr. Evelyn Gonzales who gave patinet triamcinalone cream, however patient has not started this as her rash is mostly on her face now. Today notes dry, flaky skin on hands with red demarcation around wrists which is suspicious for psoriasis. FHx of mother with psoriatic arthritis. Patient given molder sweep Dr. Rose's information for further evaluation. Assessment & Plan (10/02/2019 4:05 PM CERAMIST): Generalized, erythematous papules noted on anterior/posterior torso, [...] Type Department Care Team Description 06/10/2025 Telephone [facility] Medical Group Primary Care at [address] [address] Madeleine Jameson MA Unsuccessful Phone Call 1 ([facility]) 06/03/2025 Results Follow-Up [facility] Primary Care at [address] [address] Conway, Dasha A., BROADCAST OPERATIONS ENGINEER US Abdomen Limited 05/29/2025 Telephone [facility] Primary Care at [address] [address] Dasha Conway, BROADCAST OPERATIONS ENGINEER Test Results 05/22/2025 2:29 PM CDT - 05/22/2025 11:59 PM CDT Hospital Encounter [facility] [address] [place] [address] Elevated liver enzymes Discharge Disposition: Discharge to [...] 2 AUNTS Paternal Grandfather hipolito Paternal Grandmother [place] Alive Sister 1 jose Alive Sister 2 [...] on file Legal Sex Female 3:37 AM CERAMIST Gender Identity Female 10/02/2019 1:12 AM CERAMIST Sexual Orientation Straight 10/02/2019 1: 12 AM CERAMIST Occupation Industry Job Start Date Job End [...] Read Routine (OP Routine) 01/01/2025 1:13 PM CERAMIST Breast pain HEMOGLOBIN A1C Routine 10/12/2024 3:00 PM CERAMIST Type 2 diabetes mellitus without complication, without long-term current use of insulin (HCC) LIPID PANEL Routine 10/12/2024 3:00 PM CERAMIST Type 2 diabetes mellitus without complication, without long-term current use of insulin (HCC) EGFR Routine 08/23/2024 3:03 PM CDT Type 2 diabetes mellitus without complication, without long-term current use of insulin (HCC) ALBUMIN CREATININE RATIO, URINE Routine 08/23/2024 3:03 PM CDT Type 2 diabetes mellitus without complication, without long-term current use of insulin (HCC) HEPATITIS PANEL, ACUTE Routine 10/02/2019 3:33 PM CERAMIST from Last 3 Months or Most Recently [...] by Elvis Dominguez M.D. JR: Report ID: [id number] Reading Location: [id number] Procedure Note Elvis Dominguez MD - 05/31/2025 [...] by Elvis Dominguez M.D. JR: Report ID: [id number] Reading Location: [id number] us Dasha Conway BROADCAST OPERATIONS ENGINEER IMG US PROCEDURES Final Resul t * Diagnostic Mammogram Bilateral W [place] (01/01/2025 1:13 PM CERAMIST) Anatomical Region Laterality Modality Breast Bilateral Mammography 01/01/2025 1:27 PM CERAMIST Impressions 01/01/2025 1:27 PM CERAMIST No evidence of malignancy. Follow-up in 1 year with screening mammography is recommended. BI-RADS: 1 - Negative. The patient has been or will be contacted. The patient will be entered into a reminder system with a target due date of 1 year for her next mammogram. Electronically signed by: Ifrah Serrano M.D. Narrative 01/01/2025 1:27 PM CERAMIST EXAMINATION: DIAGNOSTIC MAMMOGRAM BILATERAL W MARQUIS ORDERING [...] * (ABNORMAL) Hemoglobin A1c (10/12/2024 3:00 PM CERAMIST) Hgb A1C 6.1(H) 4.0 - 5.6 % Estimated Average Glucose 128 mg/dL [facility] Comment: The ADA recommends reporting an estimated Average Glucose (eAG) with all Hemoglobin A1c results using the equation derived from a study of 507 normal and diabetic adults. Minority populations were underrepresented and children were not included. (Diabetes Care 31:2252-0512, 2008). The eAG is not equivalent to a fasting glucose. Blood 10/12/2024 3:00 PM CERAMIST 10/12/2024 8:24 PM CERAMIST Dasha Conway NP LAB BLOOD ORDERABLES Final Re sult [facility] [address] [place] [address] * (ABNORMAL) Lipid panel (10/12/2024 3:00 PM CERAMIST) Cholesterol 207(H) 30 - 199 mg/dL Comment: [...] 6 [facility] Blood 10/12/2024 3:00 PM CERAMIST 10/12/2024 8:24 PM CERAMIST us Dasha Conway NP LAB BLOOD ORDERABLES Final Re sult [facility] [address] [place] [address] * eGFR (08/23/2024 3:03 PM [...] ORDERABLES Final Re sult Performing Organization Address [facility] de Phone Number JOAN [address] [place] [address] * Albumin Creatinine Ratio, Urine (08/23/2024 3:03 [...] ORDERABLES Final Re sult Performing Organization Address [facility] de Phone Number [facility] CORONEL [address] [place] [address] * Hepatitis panel, acute (10/02/2019 3:33 PM CERAMIST) Hep A IgM NON-REACT DAVE NON-REACT DAVE [facility] [place] Comment: For additional information, please refer to http://education.[employer]/faq/EYU840 (This link is being provided for informational/ [...] a test for HCV RNA (test code 56343) is suggested. For additional information please refer to http://education.[employer]/faq/NOA28x6 (This link is being provided for informational/ educational purposes only.) 10/02/2019 3:33 PM CERAMIST 10/02/2019 3:35 PM CERAMIST Narrative Resulting Agency Comment Performing Organization Information: Site ID: [facility] Name: Norbert Castellanos Address: [address] [place] [address] Director: Dustin Walter D.O., MPH [facility] - NERAL ORDERABLES Final Result [facility] [place] from Last 3 Months or Most Recently Relevant to Health Maintenance Insurance [facility] MEDICARE ADVANTAGE [facility] Address: [facility] [address] [place] [address] IDPA [facility] MEDICARE ADVANTAGE IDPA Member Subscriber Plan / Payer (Ef fective 2019-Present) Name:Divina Raphael Relation to Subscriber:Self Name:Divina Raphael Payer ID:[id number] Group ID:Not on file Type:MEDICAID [place] Address: [place] [id number] [facility] MEDICARE ADVANTAGE [facility]IC[facility] ADVANT[facility] Address: [address] [address] [place] [address] IDPA Care Teams Condenser Winder Relationship Specialty Start Date End Date Dasha Conway NP [address] [address] PCP - General Family Medicine 05/02/25 Donovan Parks MD Referring Physician Gastroenterology 06/12/21
--- OUTSIDE RECORDS SUMMARY | 2025-08-03 19:35 | XMS_ITS | Encounter Summary ---
Author Organization [facility] Address Critical access hospital[facility] [place] [address] Care Team Providers Care Helpdesk Administrator Name Role Phone Dasha Conway Erlin [facility] Primary Care Provider +1- [phone] Encounter Details Date Type Department Care Team (Latest Contact Info) Description 05/07/2021 PayAllies Message Enc [facility] Medical Group Multispecialty Care - [address] [place], [place] [id number] Chip, [facility] Provider surgical clearance Social History [...] Assigned at Female 01/08/2021 9:43 AM SUPERVISOR CARBON PAPER COATING Legal Sex Female 5:13 PM CDT Gender Identity Female 01/08/2021 9:43 AM SUPERVISOR CARBON PAPER COATING Sexual Orientation Straight 01/08/2021 9: 43 AM SUPERVISOR CARBON PAPER COATING COVID-19 Exposure Response Date Recorded In the [...] Rule Out 10/23/2021 10/23/2021 10/23/2021 9:25 AM SUPERVISOR CARBON PAPER COATING COVID-19 Rule Out 10/23/2021 10/23/2021 10/24/2021 12:21 AM SUPERVISOR CARBON PAPER COATING COVID-19 Rule Out 01/15/2022 01/15/2022 01/20/2022 10:53 AM SUPERVISOR CARBON PAPER COATING COVID-19 Rule Out 04/21/2022 04/21/2022 04/21/2022 11:42 AM CDT COVID-19 Rule Out 04/21/2022 04/21/2022 04/26/2022 7:02 AM CDT COVID-19 Rule Out 10/06/2022 10/06/2022 10/06/2022 1:21 PM SUPERVISOR CARBON PAPER COATING COVID-19 Rule Out 10/06/2022 10/06/2022 10/07/2022 3:34 PM SUPERVISOR CARBON PAPER COATING COVID-19 Rule Out 09/14/2023 09/14/2023 09/14/2023 3:48 PM CDT COVID-19 Rule Out 11/02/2024 11/02/2024 11/02/2024 4:03 PM SUPERVISOR CARBON PAPER COATING Assessment Noted Time PHQ-9 Depression Total Score: 22 021 9:18 AM CDT documented as of this encounter Care Teams Helpdesk Administrator Relationship Specialty Start Date End Date Dasha Conway, MOBILE HOME MECHANIC- [address] [place] [address] PCP - General 11/02/24 documented as of this encounter
--- OUTSIDE RECORDS SUMMARY | 2025-08-03 19:35 | XMS_ITS | Encounter Summary ---
Author Organization [facility] Address [facility] [place] [address] Care Team Providers Care Control Room Agent Name Role Phone Dasha Conway Erlin [facility] Primary Care Provider +1- [phone] Encounter Details Date Type Department Care Team (Latest Contact Info) Description 06/22/2022 [employer] Message Enc [facility] Medical Group Multispecialty Care - [place] [address] [place] [address] [address] [place] [address] Curtis Diaz MD [address] [facility] [address] [place], [place] [id number] Keep appointment? Social History Tobacco Use Types [...] Assigned at Female 01/08/2021 9:43 AM SUPERVISOR WOOD ROOM Legal Sex Female 5:13 PM CDT Gender Identity Female 01/08/2021 9:43 AM SUPERVISOR WOOD ROOM Sexual Orientation Straight 01/08/2021 9: 43 AM SUPERVISOR WOOD ROOM COVID-19 Exposure Response Date Recorded In the [...] Out 10/06/2022 10/06/2022 10/06/2022 1:21 PM SUPERVISOR WOOD ROOM COVID-19 Rule Out 10/06/2022 10/06/2022 10/07/2022 3:34 PM SUPERVISOR WOOD ROOM COVID-19 Rule Out 09/14/2023 09/14/2023 09/14/2023 3:48 PM CDT COVID-19 Rule Out 11/02/2024 11/02/2024 11/02/2024 4:03 PM SUPERVISOR WOOD ROOM Assessment Noted Time PHQ-9 Depression Total Score: 4 05/12/20 22 3:34 PM CDT documented as of this encounter Care Teams Control Room Agent Relationship Specialty Start Date End Date Dasha Conway, CENTRIFUGAL WAX MOLDER- [address] [place] [address] PCP - General 11/02/24 documented as of this encounter
--- OUTSIDE RECORDS SUMMARY | 2025-08-03 19:35 | XMS_ITS | Encounter Summary ---
Author Organization [facility] Address [facility] [place] [address] Care Team Providers Care Carbon Lamp Cleaner Name Role Phone Dasha Conway Erlin [facility] Primary Care Provider +1- [phone] Encounter Details Date Type Department Care Team (Latest Contact Info) Description 10/26/2021 Seer Message Enc [facility] Medical Group Multispecialty Care - [place] [address] [address] [place] [address] [place] [address] [place] [address] 157 [place], [place] [phone] Medication question Social History Tobacco Use Types [...] Sex Assigned at Female 01/08/2021 9:43 AM SYSTEMS ANALYST DEVELOPER Legal Sex Female 5:13 PM CDT Gender Identity Female 01/08/2021 9:43 AM SYSTEMS ANALYST DEVELOPER Sexual Orientation Straight 01/08/2021 9: 43 AM SYSTEMS ANALYST DEVELOPER COVID-19 Exposure Response Date Recorded In the last month, have you been in contact with someone who was confirmed or suspected to have Coronavirus / COVID-19? 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 06/30/2017 COVID-19 Rule Out 01/15/2022 01/15/2022 01/20/2022 10:53 AM SYSTEMS ANALYST DEVELOPER COVID-19 Rule Out 04/21/2022 04/21/2022 04/21/2022 11:42 AM CDT COVID-19 Rule Out 04/21/2022 04/21/2022 04/26/2022 7:02 AM CDT COVID-19 Rule Out 10/06/2022 10/06/2022 10/06/2022 1:21 PM SYSTEMS ANALYST DEVELOPER COVID-19 Rule Out 10/06/2022 10/06/2022 10/07/2022 3:34 PM SYSTEMS ANALYST DEVELOPER COVID-19 Rule Out 09/14/2023 09/14/2023 09/14/2023 3:48 PM CDT COVID-19 Rule Out 11/02/2024 11/02/2024 11/02/2024 4:03 PM SYSTEMS ANALYST DEVELOPER Assessment Noted Time PHQ-9 Depression Total Score: 22 021 9:18 AM CDT documented as of this encounter Care Teams Carbon Lamp Cleaner Relationship Specialty Start Date End Date Dasha Conway FNP-STEPH [address] [place] [address] PCP - General 11/02/24 documented as of this encounter
--- OUTSIDE RECORDS SUMMARY | 2025-08-03 19:35 | XMS_ITS | Encounter Summary ---
Author Organization [facility] Address [facility] [place] [address] Care Team Providers Care Crop Research Scientist Name Role Phone Dasha Cownay Erlin [facility] Primary Care Provider +1- [phone] Encounter Details Date Type Department Care Team (Late st Contact Info) Description 07/21/2022 Foodzait Message Enc [facility] Medical Group Multispecialty Care - [place] [address] [address] [place], [place] [phone] [place] [address] [place] [address] 157 [place] [address] Covid Social History Tobacco Use Types Packs/Day [...] Sex Assigned at Female 01/08/2021 9:43 AM WELDER ASSISTANT Legal Sex Female 5:13 PM CDT Gender Identity Female 01/08/2021 9:43 AM WELDER ASSISTANT Sexual Orientation Straight 01/08/2021 9: 43 AM WELDER ASSISTANT COVID-19 Exposure Response Date Recorded In [...] Rule Out 10/06/2022 10/06/2022 10/06/2022 1:21 PM WELDER ASSISTANT COVID-19 Rule Out 10/06/2022 10/06/2022 10/07/2022 3:34 PM WELDER ASSISTANT COVID-19 Rule Out 09/14/2023 09/14/2023 09/14/2023 3:48 PM CDT COVID-19 Rule Out 11/02/2024 11/02/2024 11/02/2024 4:03 PM WELDER ASSISTANT Assessment Noted Time PHQ-9 Depression Total Score: 4 05/12/20 22 3:34 PM CDT documented as of this encounter Care Teams Crop Research Scientist Relationship Specialty Start Date End Date Dasha Conway, MAIL FORWARDING SYSTEM MARKUP CLERK- [address] [place] [address] PCP - General 11/02/24 documented as of this encounter
--- OUTSIDE RECORDS SUMMARY | 2025-08-03 19:35 | XMS_ITS | Encounter Summary ---
Author Organization [facility] Address [facility]6 [place] [address] Care Team Providers Care Splicing Machine Operator Name Role Phone Daryl Metzger MD Primary Care Provider Dasha Vicente [facility] Primary Care Provider +1- [phone] Encounter Details Date Type Department Care Team (Late st Contact Info) Description 08/20/2020 MyCUnideskt Message Enc [facility] Medical Group Family Medicine [facility] [address] [address] Daryl Metzger MD RE: Question Social History Tobacco Use Types Packs/Day Years Used Date Smoking Tobacco: Every Day Cigarettes Smokeless Tobacco: Never Alcohol Use Standard Drinks/Week Comments Not Currently 0 (1 standard drink = 0.6 oz pur e alcohol) PHQ-2 Answer Date Recorded PHQ-2 Score 3 06/23/2020 Comments No Sex and Gender Information Value Date Recorded Sex Assigned at Female 01/08/2021 9:43 AM AGENCY OPERATOR Legal Sex Female 5:13 PM CDT Gender Identity Female 01/08/2021 9:43 AM AGENCY OPERATOR Sexual Orientation Straight 01/08/2021 9: 43 AM AGENCY OPERATOR COVID-19 Exposure Response Date Recorded In [...] Rule Out 12/16/2020 12/16/2020 12/17/2020 4:31 PM AGENCY OPERATOR COVID-19 Rule Out 06/05/2021 06/05/2021 06/05/2021 12:31 PM CDT COVID-19 Rule Out 10/23/2021 10/23/2021 10/23/2021 9:25 AM AGENCY OPERATOR COVID-19 Rule Out 10/23/2021 10/23/2021 10/24/2021 12:21 AM AGENCY OPERATOR COVID-19 Rule Out 01/15/2022 01/15/2022 01/20/2022 10:53 AM AGENCY OPERATOR COVID-19 Rule Out 04/21/2022 04/21/2022 04/21/2022 11:42 AM CDT COVID-19 Rule Out 04/21/2022 04/21/2022 04/26/2022 7:02 AM CDT COVID-19 Rule Out 10/06/2022 10/06/2022 10/06/2022 1:21 PM AGENCY OPERATOR COVID-19 Rule Out 10/06/2022 10/06/2022 10/07/2022 3:34 PM AGENCY OPERATOR COVID-19 Rule Out 09/14/2023 09/14/2023 09/14/2023 3:48 PM CDT COVID-19 Rule Out 11/02/2024 11/02/2024 11/02/2024 4:03 PM AGENCY OPERATOR Assessment Noted Time PHQ-9 Depression Total Score: 020 1:12 PM CDT documented as of this encounter Care Teams Splicing Machine Operator Relationship Specialty Start Date End Date Daryl Metzger MD PCP - General FAMILY MEDICINE SPORTS MEDICINE 08/20/20 10/09/20 Dasha Conway FNP- [address] [place] [address] PCP - General 11/02/24 documented as of this encounter
--- OUTSIDE RECORDS SUMMARY | 2025-08-03 19:35 | XMS_ITS | Encounter Summary ---
Author Organization [facility] Address [facility]6 [place] [address] Care Team Providers Care Supervisor In Charge Name Role Phone Dasha Conway Erlin [facility] Primary Care Provider +1- [phone] Encounter Details Date Type Department Care Team (Late st Contact Info) Description 10/29/2021 Vivastreamhart Message Enc [facility] Medical Group Multispecialty Care - [place] [address] [address] [place], [place] [phone] Curtis Diaz MD [address] [place] [address] 157 [place] [address] Blood sugar Social History Tobacco Use Types [...] Sex Assigned at Female 01/08/2021 9:43 AM APPRAISAL TECHNICIAN Legal Sex Female 5:13 PM CDT Gender Identity Female 01/08/2021 9:43 AM APPRAISAL TECHNICIAN Sexual Orientation Straight 01/08/2021 9: 43 AM APPRAISAL TECHNICIAN COVID-19 Exposure Response Date Recorded In the last month, have you been in contact with someone who was confirmed or suspected to have Coronavirus / COVID-19? No / Unsure 10/22/2021 9:17 AM APPRAISAL TECHNICIAN documented as of this encounter Plan of Treatment Not on file documented as of this encounter Visit Diagnoses Not on filedocumented in this encounter Additional Health Concerns Infection Onset Date Last Indicated Resolved Time 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 06/30/2017 COVID-19 Rule Out 01/15/2022 01/15/2022 01/20/2022 10:53 AM APPRAISAL TECHNICIAN COVID-19 Rule Out 04/21/2022 04/21/2022 04/21/2022 11:42 AM CDT COVID-19 Rule Out 04/21/2022 04/21/2022 04/26/2022 7:02 AM CDT COVID-19 Rule Out 10/06/2022 10/06/2022 10/06/2022 1:21 PM APPRAISAL TECHNICIAN COVID-19 Rule Out 10/06/2022 10/06/2022 10/07/2022 3:34 PM APPRAISAL TECHNICIAN COVID-19 Rule Out 09/14/2023 09/14/2023 09/14/2023 3:48 PM CDT COVID-19 Rule Out 11/02/2024 11/02/2024 11/02/2024 4:03 PM APPRAISAL TECHNICIAN Assessment Noted Time PHQ-9 Depression Total Score: 22 021 9:18 AM CDT documented as of this encounter Care Teams Supervisor In Charge Relationship Specialty Start Date End Date Dasha Conway FNP-BC [address] [place] [address] PCP - General 11/02/24 documented as of this encounter
--- OUTSIDE RECORDS SUMMARY | 2025-08-03 19:36 | XMS_ITS | Encounter Summary ---
Author Organization [facility] Address [facility] [place] [address] Care Team Providers Care Mortgage Operations Manager Name Role Phone Dasha Conway Erlin [facility] Primary Care Provider +1- [phone] Encounter Details Date Type Department Care Team (Late st Contact Info) Description 09/08/2023 Think Big Analytics Message Enc [facility] Medical Group Multispecialty Care - [place] [address] [address] [place] [address] Curtis Diaz MD [address] [place] [address] 157 [place] [address] Oral thrush Social History Tobacco Use Types [...] Sex Assigned at Female 01/08/2021 9:43 AM ARMAMENT MECHANIC Legal Sex Female 5:13 PM CDT Gender Identity Female 01/08/2021 9:43 AM ARMAMENT MECHANIC Sexual Orientation Straight 01/08/2021 9: 43 AM ARMAMENT MECHANIC documented as of this encounter Functional Status [...] Rule Out 11/02/2024 11/02/2024 11/02/2024 4:03 PM ARMAMENT MECHANIC Assessment Noted Time PHQ-9 Depression Total Score: 11 11/05/ 022 12:00 PM ARMAMENT MECHANIC documented as of this encounter Care Teams Mortgage Operations Manager Relationship Specialty Start Date End Date Dasha Conway, CHRISTINE- [address] [place] [address] PCP - General 11/02/24 documented as of this encounter
--- OUTSIDE RECORDS SUMMARY | 2025-08-03 19:36 | XMS_ITS | Encounter Summary ---
Author Organization [facility] Address [facility]6 [place] [address] Care Team Providers Care Cloth Boil Off Machine Operator Name Role Phone Daryl Metzger MD Primary Care Provider Dasha Vicente [facility] Primary Care Provider +1- [phone] Encounter Details Date Type Department Care Team (Late st Contact Info) Description 09/01/2020 Prep for Procedure [facility] One Day Services ONE [place], [place] [address] Donovan Parks MD 3 [facility] Reggie [address] [place] [id number] Social History Tobacco Use Types Packs/Day Years Used Date Smoking Tobacco: Every Day Cigarettes Smokeless Tobacco: Never Alcohol Use Standard Drinks/Week Comments Not Currently 0 (1 standard drink = 0.6 oz pur e alcohol) PHQ-2 Answer Date Recorded PHQ-2 Score 3 06/23/2020 Comments No Sex and Gender Information Value Date Recorded Sex Assigned at Female 01/08/2021 9:43 AM CONTRACT PROGRAMMER Legal Sex Female 5:13 PM CDT Gender Identity Female 01/08/2021 9:43 AM CONTRACT PROGRAMMER Sexual Orientation Straight 01/08/2021 9: 43 AM CONTRACT PROGRAMMER COVID-19 Exposure Response Date Recorded In [...] DETECTED NOT DETECTED 09/02/2020 10:[address] [facility] Comment: A Not Detected (negative) test result [...] providers and patients using the following websites: https://www.[employer].Hatchbuck/home/Covid-19/HCP/NAAT/fact-sheet2 https://www.[employer]atchbuck/home/Covid-19/Patients/NAAT/ fact-sheet2 This test has been authorized by the FDA under an Emergency Use Authorization (EUA) for use by authorized laboratories. Due to the current public health emergency, [facility] is receiving a high volume of samples [...] about COVID-19 can be found at the [facility] website: www.[employer].Hatchbuck/Covid19. Test performed at [facility] [place] [address] [place] [address] Director: CURRY BAEZA DO,MPH FIRST TEST UNKNOWN 09/01/2020 3:38 PM CDT [facility] EMPLOYED IN HEALTHCARE UNKNOWN 09/01/2020 3:38 PM CDT [facility] SYMPTOMATIC DEFINED BY CDC UNKNOWN 09/01/2020 3:38 PM CDT [facility] DATE OF SYMPTOM ONSET UNKNOWN 09/01/2020 3:44 PM CDT [facility] HOSPITALIZATION STATUS NO 09/01/2020 3:38 PM CDT [facility] PATIENT IN ICU NO 09/01/2020 3:38 PM CDT [facility] RESIDENT OF [facility] UNKNOWN 09/01/2020 3:38 PM CDT [facility] UNKNOWN 09/01/2020 3:38 PM CDT [facility] PATIENT'S RACE WHITE OR 09/01/2020 3:38 PM CDT [facility] ETHNICITY NONHISPANIC 09/01/2020 3:38 PM CDT [facility] SOURCE (QST) NASOPHARYNGEAL SWAB 09/01/2020 3:38 PM CDT [facility] NASOPHARYNGEAL SWAB / Unknown 09/01/2020 12:23 PM CDT Donovan Parks MD MICROBIOLOGY - GENERAL ORDERABLE S Final Result [facility] 3 [place] [address], [facility] [address] [place] [address], documented in this encounter Visit Diagnoses Diagnosis Dysphagia- Primary Dysphagia, unspecified documented in this encounter Additional Health Concerns Infection Onset Date Last Indicated Resolved Time 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 06/30/2017 COVID-19 Rule Out 09/01/2020 09/01/2020 09/02/2020 10:06 PM CDT COVID-19 Rule Out 12/16/2020 12/16/2020 12/17/2020 4:31 PM CONTRACT PROGRAMMER COVID-19 Rule Out 06/05/2021 06/05/2021 06/05/2021 12:31 PM CDT COVID-19 Rule Out 10/23/2021 10/23/2021 10/23/2021 9:25 AM CONTRACT PROGRAMMER COVID-19 Rule Out 10/23/2021 10/23/2021 10/24/2021 12:21 AM CONTRACT PROGRAMMER COVID-19 Rule Out 01/15/2022 01/15/2022 01/20/2022 10:53 AM CONTRACT PROGRAMMER COVID-19 Rule Out 04/21/2022 04/21/2022 04/21/2022 11:42 AM CDT COVID-19 Rule Out 04/21/2022 04/21/2022 04/26/2022 7:02 AM CDT COVID-19 Rule Out 10/06/2022 10/06/2022 10/06/2022 1:21 PM CONTRACT PROGRAMMER COVID-19 Rule Out 10/06/2022 10/06/2022 10/07/2022 3:34 PM CONTRACT PROGRAMMER COVID-19 Rule Out 09/14/2023 09/14/2023 09/14/2023 3:48 PM CDT COVID-19 Rule Out 11/02/2024 11/02/2024 11/02/2024 4:03 PM CONTRACT PROGRAMMER Assessment Noted Time PHQ-9 Depression Total Score: 020 1:12 PM CDT documented as of this encounter Care Teams Cloth Boil Off Machine Operator Relationship Specialty Start Date End Date Daryl Metzger MD PCP - General FAMILY MEDICINE SPORTS MEDICINE 08/20/20 10/09/20 Dasha Conway FNP- [address] [place] [address] PCP - General 11/02/24 documented as of this encounter
--- OUTSIDE RECORDS SUMMARY | 2025-08-03 19:36 | XMS_ITS | Encounter Summary ---
Author Organization [facility] Address [facility] [place] [address] Care Team Providers Care Sports Specialist Name Role Phone Dasha Conway Erlin [facility] Primary Care Provider +1- [phone] Encounter Details Date Type Department Care Team (Late st Contact Info) Description 02/08/2024 CourseAdvisort Message Enc [facility] Medical Group Multispecialty Care - [place] [address] [address] [place] [address] Curtis Diaz MD [address] [place] [address] 157 [place] [address] Fluconazole Social History Tobacco Use Types Packs/Day [...] Sex Assigned at Female 01/08/2021 9:43 AM ELIGIBILITY ANALYST Legal Sex Female 5:13 PM CDT Gender Identity Female 01/08/2021 9:43 AM ELIGIBILITY ANALYST Sexual Orientation Straight 01/08/2021 9: 43 AM ELIGIBILITY ANALYST documented as of this encounter Functional [...] independently General No Cary anderson r, Joselito aSez RN documented as of this encounter Visit Diagnoses Not on filedocumented in this encounter Additional Health Concerns Infection Onset Date Last Indicated Resolved Time 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 06/30/2017 COVID-19 Rule Out 11/02/2024 11/02/2024 11/02/2024 4:03 PM ELIGIBILITY ANALYST Assessment Noted Time PHQ-9 Depression Total Score: 7 11/16/20 23 9:57 AM ELIGIBILITY ANALYST documented as of this encounter Care Teams Sports Specialist Relationship Specialty Start Date End Date Dasha Conway, HYDRO TECHNICIAN- [address] [place] [address] PCP - General 11/02/24 documented as of this encounter
--- OUTSIDE RECORDS SUMMARY | 2025-08-03 19:36 | XMS_ITS | Encounter Summary ---
Author Organization [facility] Address [facility] [place] [address] Care Team Providers Care Emergency Department Clinician Name Role Phone Dasha Conway [facility] Primary Care Provider +1- [phone] Encounter Details Date Type Department Care Team (Late st Contact Info) Description 06/23/2023 [employer] Message Enc [facility] Medical Group Multispecialty Care - [place] [address] [address] [place] [address] Curtis Diaz MD [address] [place] [address] 157 [place] [address] Yeast infection Social History Tobacco Use Types [...] Sex Assigned at Female 01/08/2021 9:43 AM BAILIFF Legal Sex Female 5:13 PM CDT Gender Identity Female 01/08/2021 9:43 AM BAILIFF Sexual Orientation Straight 01/08/2021 9: 43 AM BAILIFF documented as of this encounter Functional Status [...] Rule Out 11/02/2024 11/02/2024 11/02/2024 4:03 PM BAILIFF Assessment Noted Time PHQ-9 Depression Total Score: 11 11/05/2 022 12:00 PM BAILIFF documented as of this encounter Care Teams Emergency Department Clinician Relationship Specialty Start Date End Date Dasha Conway, SALES AND MARKETING COORDINATOR- [address] [place] [address] PCP - General 11/02/24 documented as of this encounter
--- OUTSIDE RECORDS SUMMARY | 2025-08-03 19:36 | XMS_ITS | Encounter Summary ---
Author Organization [facility] Address [facility] [place] [address] Care Team Providers Care Printer Small Print Shop Name Role Phone Dasha Conway Erlin [facility] Primary Care Provider +1- [phone] Encounter Details Date Type Department Care Team (Late st Contact Info) Description 05/18/2023 MyChart Message Enc [facility] Medical Group - [facility] [address] [place] [address] [employer], [facility] Provider Air Quality Message Social History Tobacco [...] Sex Assigned at Female 01/08/2021 9:43 AM APPRAISER OIL AND WATER Legal Sex Female 5:13 PM CDT Gender Identity Female 01/08/2021 9:43 AM APPRAISER OIL AND WATER Sexual Orientation Straight 01/08/2021 9: 43 AM APPRAISER OIL AND WATER documented as of this encounter Functional Status [...] Rule Out 11/02/2024 11/02/2024 11/02/2024 4:03 PM APPRAISER OIL AND WATER Assessment Noted Time PHQ-9 Depression Total Score: 11 022 12:00 PM APPRAISER OIL AND WATER documented as of this encounter Care Teams Printer Small Print Shop Relationship Specialty Start Date End Date Dasha Conway, CHRISTINE- [address] [place] [address] PCP - General 11/02/24 documented as of this encounter
--- OUTSIDE RECORDS SUMMARY | 2025-08-03 19:36 | XMS_ITS | Encounter Summary ---
Author Organization [facility] Address [facility] [place] [address] Care Team Providers Care Missile Mechanic Name Role Phone Dasha Conway Erlin [facility] Primary Care Provider +1- [phone] Encounter Details Date Type Department Care Team (Latest Contact Info) Description 10/20/2020 [email or web address] Message Enc [facility] Medical Group Multispecialty Care [place] [address] [place] [address] [address] [place] [address] Curtis Diaz MD [address] [facility] 157 [place], [place] [id number] Follow Up/Update Social History Tobacco Use Types [...] Sex Assigned at Female 01/08/2021 9:43 AM DRUM STENCILER Legal Sex Female 5:13 PM CDT Gender Identity Female 01/08/2021 9:43 AM DRUM STENCILER Sexual Orientation Straight 01/08/2021 9: 43 AM DRUM STENCILER COVID-19 Exposure Response Date Recorded In the last month, have you been in contact with someone who was confirmed or suspected to have Coronavirus / COVID-19? No / Unsure 10/22/2020 12:45 PM DRUM STENCILER documented as of this encounter Plan of Treatment Not on file documented as of this encounter Visit Diagnoses Not on filedocumented in this encounter Additional Health Concerns Infection Onset Date Last Indicated Resolved Time 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 06/30/2017 COVID-19 Rule Out 12/16/2020 12/16/2020 12/17/2020 4:31 PM DRUM STENCILER COVID-19 Rule Out 06/05/2021 06/05/2021 06/05/2021 12:31 PM CDT COVID-19 Rule Out 10/23/2021 10/23/2021 10/23/2021 9:25 AM DRUM STENCILER COVID-19 Rule Out 10/23/2021 10/23/2021 10/24/2021 12:21 AM DRUM STENCILER COVID-19 Rule Out 01/15/2022 01/15/2022 01/20/2022 10:53 AM DRUM STENCILER COVID-19 Rule Out 04/21/2022 04/21/2022 04/21/2022 11:42 AM CDT COVID-19 Rule Out 04/21/2022 04/21/2022 04/26/2022 7:02 AM CDT COVID-19 Rule Out 10/06/2022 10/06/2022 10/06/2022 1:21 PM DRUM STENCILER COVID-19 Rule Out 10/06/2022 10/06/2022 10/07/2022 3:34 PM DRUM STENCILER COVID-19 Rule Out 09/14/2023 09/14/2023 09/14/2023 3:48 PM CDT COVID-19 Rule Out 11/02/2024 11/02/2024 11/02/2024 4:03 PM DRUM STENCILER Assessment Noted Time PHQ-9 Depression Total Score: 020 1:12 PM CDT documented as of this encounter Care Teams Missile Mechanic Relationship Specialty Start Date End Date Dasha Conway, CHRISTINE- [address] [place] [address] PCP - General 11/02/24 documented as of this encounter
--- OUTSIDE RECORDS SUMMARY | 2025-08-03 19:36 | XMS_ITS | Encounter Summary ---
Author Organization [facility] Address [facility] [place] [address] Care Team Providers Care Nurse First Assist Name Role Phone Daryl Metzger MD Primary Care Provider Dasha Vicente [facility] Primary Care Provider +1- [phone] Encounter Details Date Type Department Care Team (Latest Contact Info) Description 09/04/2020 [employer] Message [facility] [address] Harsh Sanchez MD [address] [place] [address] [place] [address] [place] [phone] RE: Follow Up/Update Social History Tobacco Use Types Packs/Day Years Used Date Smoking Tobacco: Every Day Cigarettes Smokeless Tobacco: Never Alcohol Use Standard Drinks/Week Comments Not Currently 0 (1 standard drink = 0.6 oz pur e alcohol) PHQ-2 Answer Date Recorded PHQ-2 Score 3 06/23/2020 Comments No Sex and Gender Information Value Date Recorded Sex Assigned at Female 01/08/2021 9:43 AM LOG TRUCK DRIVER Legal Sex Female 5:13 PM CDT Gender Identity Female 01/08/2021 9:43 AM LOG TRUCK DRIVER Sexual Orientation Straight 01/08/2021 9: 43 AM LOG TRUCK DRIVER COVID-19 Exposure Response Date Recorded In [...] Rule Out 12/16/2020 12/16/2020 12/17/2020 4:31 PM LOG TRUCK DRIVER COVID-19 Rule Out 06/05/2021 06/05/2021 06/05/2021 12:31 PM CDT COVID-19 Rule Out 10/23/2021 10/23/2021 10/23/2021 9:25 AM LOG TRUCK DRIVER COVID-19 Rule Out 10/23/2021 10/23/2021 10/24/2021 12:21 AM LOG TRUCK DRIVER COVID-19 Rule Out 01/15/2022 01/15/2022 01/20/2022 10:53 AM LOG TRUCK DRIVER COVID-19 Rule Out 04/21/2022 04/21/2022 04/21/2022 11:42 AM CDT COVID-19 Rule Out 04/21/2022 04/21/2022 04/26/2022 7:02 AM CDT COVID-19 Rule Out 10/06/2022 10/06/2022 10/06/2022 1:21 PM LOG TRUCK DRIVER COVID-19 Rule Out 10/06/2022 10/06/2022 10/07/2022 3:34 PM LOG TRUCK DRIVER COVID-19 Rule Out 09/14/2023 09/14/2023 09/14/2023 3:48 PM CDT COVID-19 Rule Out 11/02/2024 11/02/2024 11/02/2024 4:03 PM LOG TRUCK DRIVER Assessment Noted Time PHQ-9 Depression Total Score: 13 020 1:12 PM CDT documented as of this encounter Care Teams Nurse First Assist Relationship Specialty Start Date End Date Daryl Metzger MD PCP - General FAMILY MEDICINE SPORTS MEDICINE 08/20/20 10/09/20 Dasha Conway, EMISSIONS TESTING AND REPAIR TECHNICIAN- [address] [place] [address] PCP - General 11/02/24 documented as of this encounter
--- OUTSIDE RECORDS SUMMARY | 2025-08-03 19:36 | XMS_ITS | Clinical Summary ---
Author Organization [facility] [employer] Address [address] [facility] [place] [address] Care Team Providers Care Senior Warehouse Clerk Name Role Phone Curtis Diaz MD Primary Care Provider [phone] Source Comments [facility] [employer]),non-owned Affiliates and Associated Physician Practices is amultiple site organization consisting of ambulatory clinics and hospital sitesin [place], [place], [place] and [place]. This disclosure is being madepursuant to the Care Everywhere program and may not contain all information available regarding this patient. Last updated 18.[facility] [employer] Allergies Active Allergy Reactions Criticality Noted Date [...] PM CDT Legal Sex Female 6:44 AM CHIEF MATE Gender Identity Female 08/03/2021 3:36 PM CDT [...] complete this topic Insurance MEDICAID - [place] [facility] MEDICAID - OUT OF STATE [facility] UHC MANAGED MEDICARE ADV Care Teams Senior Warehouse Clerk Relationship Specialty Start Date End Date Curtis Diaz MD [address] [facility] [address] [place] [phone] (work) PCP - General 04/12/22
--- OUTSIDE RECORDS SUMMARY | 2025-08-03 19:36 | XMS_ITS | Encounter Summary ---
Author Organization [facility] Address [facility]6 [place] [address] Care Team Providers Care Product Design Engineer Name Role Phone Dasha Conway Erlin [facility] Primary Care Provider +1- [phone] Encounter Details Date Type Department Care Team (Late st Contact Info) Description 12/07/2022 [employer] Message Enc [facility] Medical Group Multispecialty Care - [place] [address] [place] [address] [address] [place], [place] [phone] [place] [address] [place] [address] 157 [place], [place] [phone] Surgery date Social History Tobacco Use Types [...] Sex Assigned at Female 01/08/2021 9:43 AM RADIOLOGIC TECHNOLOGY TEACHER Legal Sex Female 5:13 PM CDT Gender Identity Female 01/08/2021 9:43 AM RADIOLOGIC TECHNOLOGY TEACHER Sexual Orientation Straight 01/08/2021 9: 43 AM RADIOLOGIC TECHNOLOGY TEACHER COVID-19 Exposure Response Date Recorded In the last 10 days, have asif rodriguez been in contact with someone who was confirmed or suspected to have Coronavirus/COVID-19? No / Unsure 12/03/2022 10:51 AM RADIOLOGIC TECHNOLOGY TEACHER documented as of this encounter Functional [...] Status No 06/13/2022 10:59 PM FAUZIAT Denis aNm RN Active * Because of a physical, [...] Rule Out 11/02/2024 11/02/2024 11/02/2024 4:03 PM RADIOLOGIC TECHNOLOGY TEACHER Assessment Noted Time PHQ-9 Depression Total Score: 11 1216/2 022 12:00 PM RADIOLOGIC TECHNOLOGY TEACHER documented as of this encounter Care Teams Product Design Engineer Relationship Specialty Start Date End Date Dasha Conway FNP-STEPH [address] [place], [place] [id number] PCP - General 11/02/24 documented as of this encounter
--- OUTSIDE RECORDS SUMMARY | 2025-08-03 19:36 | XMS_ITS | Encounter Summary ---
Author Organization [facility] Address [facility] access hospital[address] [place] [address] Care Team Providers Care Sock Examiner Name Role Phone Dasha Conway Erlin [facility] Primary Care Provider [phone]- [phone] Encounter Details Date Type Department Care Team (Late st Contact Info) Description 10/23/2020 [employer] Message Enc [facility] Medical Group Multispecialty Care - [place] [address] [place] [address] [address] [place] [address] Curtis Diaz MD [address] [facility] [address] [place], [place] [phone] omeprazole Social History Tobacco Use Types Packs/Day [...] Assigned at Female 01/08/2021 9:43 AM COMPUTER SUPPORT SPECIALIST Legal Sex Female 5:13 PM CDT Gender Identity Female 01/08/2021 9:43 AM COMPUTER SUPPORT SPECIALIST Sexual Orientation Straight 01/08/2021 9: 43 AM COMPUTER SUPPORT SPECIALIST COVID-19 Exposure Response Date Recorded In the last month, have you been in contact with someone who was confirmed or suspected to have Coronavirus / COVID-19? No / Unsure 10/24/2020 10:40 AM COMPUTER SUPPORT SPECIALIST documented as of this encounter Plan of Treatment Not on file documented as of this encounter Visit Diagnoses Not on filedocumented in this encounter Additional Health Concerns Infection Onset Date Last Indicated Resolved Time 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 06/30/2017 COVID-19 Rule Out 12/16/2020 12/16/2020 12/17/2020 4:31 PM COMPUTER SUPPORT SPECIALIST COVID-19 Rule Out 06/05/2021 06/05/2021 06/05/2021 12:31 PM CDT COVID-19 Rule Out 10/23/2021 10/23/2021 10/23/2021 9:25 AM COMPUTER SUPPORT SPECIALIST COVID-19 Rule Out 10/23/2021 10/23/2021 10/24/2021 12:21 AM COMPUTER SUPPORT SPECIALIST COVID-19 Rule Out 01/15/2022 01/15/2022 01/20/2022 10:53 AM COMPUTER SUPPORT SPECIALIST COVID-19 Rule Out 04/21/2022 04/21/2022 04/21/2022 11:42 AM CDT COVID-19 Rule Out 04/21/2022 04/21/2022 04/26/2022 7:02 AM CDT COVID-19 Rule Out 10/06/2022 10/06/2022 10/06/2022 1:21 PM COMPUTER SUPPORT SPECIALIST COVID-19 Rule Out 10/06/2022 10/06/2022 10/07/2022 3:34 PM COMPUTER SUPPORT SPECIALIST COVID-19 Rule Out 09/14/2023 09/14/2023 09/14/2023 3:48 PM CDT COVID-19 Rule Out 11/02/2024 11/02/2024 11/02/2024 4:03 PM COMPUTER SUPPORT SPECIALIST Assessment Noted Time PHQ-9 Depression Total Score: 020 1:12 PM CDT documented as of this encounter Care Teams Sock Examiner Relationship Specialty Start Date End Date Dasha Conway, CHRISTINE-STEPH [address] [place] [address] PCP - General 11/02/24 documented as of this encounter
--- OUTSIDE RECORDS SUMMARY | 2025-08-03 19:36 | XMS_ITS | Encounter Summary ---
Author Organization [facility] Address [facility]6 [place] [address] Care Team Providers Care E Business Project Manager Name Role Phone Dasha Conway Erlin [facility] Primary Care Provider [phone]- [phone] Encounter Details Date Type Department Care Team (Latest Contact Info) Description 10/21/2020 [employer] Message Enc [facility] Medical Group Multispecialty Care - [place] [address] [place] [address] [address] [place] [address] Curtis Diaz MD [address] [facility] [address] [place], [place] [phone] RE: Medication Questions Social History Tobacco Use [...] Sex Assigned at Female 01/08/2021 9:43 AM CALIBRATION ENGINEER Legal Sex Female 5:13 PM CDT Gender Identity Female 01/08/2021 9:43 AM CALIBRATION ENGINEER Sexual Orientation Straight 01/08/2021 9: 43 AM CALIBRATION ENGINEER COVID-19 Exposure Response Date Recorded In the last month, have you been in contact with someone who was confirmed or suspected to have Coronavirus / COVID-19? No / Unsure 10/24/2020 10:40 AM CALIBRATION ENGINEER documented as of this encounter Plan of Treatment Not on file documented as of this encounter Visit Diagnoses Not on filedocumented in this encounter Additional Health Concerns Infection Onset Date Last Indicated Resolved Time 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 06/30/2017 COVID-19 Rule Out 12/16/2020 12/16/2020 12/17/2020 4:31 PM CALIBRATION ENGINEER COVID-19 Rule Out 06/05/2021 06/05/2021 06/05/2021 12:31 PM CDT COVID-19 Rule Out 10/23/2021 10/23/2021 10/23/2021 9:25 AM CALIBRATION ENGINEER COVID-19 Rule Out 10/23/2021 10/23/2021 10/24/2021 12:21 AM CALIBRATION ENGINEER COVID-19 Rule Out 01/15/2022 01/15/2022 01/20/2022 10:53 AM CALIBRATION ENGINEER COVID-19 Rule Out 04/21/2022 04/21/2022 04/21/2022 11:42 AM CDT COVID-19 Rule Out 04/21/2022 04/21/2022 04/26/2022 7:02 AM CDT COVID-19 Rule Out 10/06/2022 10/06/2022 10/06/2022 1:21 PM CALIBRATION ENGINEER COVID-19 Rule Out 10/06/2022 10/06/2022 10/07/2022 3:34 PM CALIBRATION ENGINEER COVID-19 Rule Out 09/14/2023 09/14/2023 09/14/2023 3:48 PM CDT COVID-19 Rule Out 11/02/2024 11/02/2024 11/02/2024 4:03 PM CALIBRATION ENGINEER Assessment Noted Time PHQ-9 Depression Total Score: 020 1:12 PM CDT documented as of this encounter Care Teams E Business Project Manager Relationship Specialty Start Date End Date Dasha Conway, CHRISTINE- [address] [place] [address] PCP - General 11/02/24 documented as of this encounter
--- OUTSIDE RECORDS SUMMARY | 2025-08-03 19:36 | XMS_ITS | Encounter Summary ---
Author Organization [facility] Address [facility] [place] [address] Care Team Providers Care Flight Communications Specialist Name Role Phone Dasha Conway Erlin [facility] Primary Care Provider +1- [phone] Encounter Details Date Type Department Care Team (Latest Contact Info) Description 07/06/2023 [employer] Message Enc [facility] Medical Group Multispecialty Care - [place] [address] [place] [address] [address] [place], [place] [phone] [place] [address] [place] [address] 157 [place], [place] [phone] Pain meds for mouth Social History Tobacco [...] Sex Assigned at Female 01/08/2021 9:43 AM PERISHABLE FRUIT INSPECTOR Legal Sex Female 5:13 PM CDT Gender Identity Female 01/08/2021 9:43 AM PERISHABLE FRUIT INSPECTOR Sexual Orientation Straight 01/08/2021 9: 43 AM PERISHABLE FRUIT INSPECTOR documented as of this encounter Functional Status [...] Rule Out 11/02/2024 11/02/2024 11/02/2024 4:03 PM PERISHABLE FRUIT INSPECTOR Assessment Noted Time PHQ-9 Depression Total Score: 11 11/05/2 022 12:00 PM PERISHABLE FRUIT INSPECTOR documented as of this encounter Care Teams Flight Communications Specialist Relationship Specialty Start Date End Date Dasha Conway, LABORER PIPELINE- [address] [place] [address] PCP - General 11/02/24 documented as of this encounter
--- OUTSIDE RECORDS SUMMARY | 2025-08-03 19:36 | XMS_ITS | Encounter Summary ---
Author Organization [facility] Address [facility]6 [place] [address] Care Team Providers Care Hospice Home Care Coordinator Name Role Phone Dasha Conway Erlin [facility] Primary Care Provider +1- [phone] Encounter Details Date Type Department Care Team (Latest Contact Info) Description 11/23/2020 [employer] Message Enc [facility] Medical Group Multispecialty Care - [place] [address] [place] [address] [address] [place] [address] Curtis Diaz MD [address] [facility] [address] [place], [place] [phone] RE: Follow Up/Update Social History Tobacco Use [...] Sex Assigned at Female 01/08/2021 9:43 AM BREAKER MACHINE OPERATOR Legal Sex Female 5:13 PM CDT Gender Identity Female 01/08/2021 9:43 AM BREAKER MACHINE OPERATOR Sexual Orientation Straight 01/08/2021 9: 43 AM BREAKER MACHINE OPERATOR COVID-19 Exposure Response Date Recorded In the last month, have you been in contact with someone who was confirmed or suspected to have Coronavirus / COVID-19? 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 06/30/2017 COVID-19 Rule Out 12/16/2020 12/16/2020 12/17/2020 4:31 PM BREAKER MACHINE OPERATOR COVID-19 Rule Out 06/05/2021 06/05/2021 06/05/2021 12:31 PM CDT COVID-19 Rule Out 10/23/2021 10/23/2021 10/23/2021 9:25 AM BREAKER MACHINE OPERATOR COVID-19 Rule Out 10/23/2021 10/23/2021 10/24/2021 12:21 AM BREAKER MACHINE OPERATOR COVID-19 Rule Out 01/15/2022 01/15/2022 01/20/2022 10:53 AM BREAKER MACHINE OPERATOR COVID-19 Rule Out 04/21/2022 04/21/2022 04/21/2022 11:42 AM CDT COVID-19 Rule Out 04/21/2022 04/21/2022 04/26/2022 7:02 AM CDT COVID-19 Rule Out 10/06/2022 10/06/2022 10/06/2022 1:21 PM BREAKER MACHINE OPERATOR COVID-19 Rule Out 10/06/2022 10/06/2022 10/07/2022 3:34 PM BREAKER MACHINE OPERATOR COVID-19 Rule Out 09/14/2023 09/14/2023 09/14/2023 3:48 PM CDT COVID-19 Rule Out 11/02/2024 11/02/2024 11/02/2024 4:03 PM BREAKER MACHINE OPERATOR Assessment Noted Time PHQ-9 Depression Total Score: 13 020 1:12 PM CDT documented as of this encounter Care Teams Hospice Home Care Coordinator Relationship Specialty Start Date End Date Dasha Conway FNP- [address] [place] [address] PCP - General 11/02/24 documented as of this encounter
--- OUTSIDE RECORDS SUMMARY | 2025-08-03 19:36 | XMS_ITS | Encounter Summary ---
Author Organization [facility] Address [facility] [place] [address] Care Team Providers Care Flume Worker Name Role Phone Dasha Conway Erlin [facility] Primary Care Provider +1- [phone] Encounter Details Date Type Department Care Team (Latest Contact Info) Description 04/24/2023 [employer] Message Enc [facility] Medical Group Multispecialty Care - [place] [address] [place] [address] [address] [place] [address] Curtis Diaz MD [address] [facility] [address] [place], [place] [phone] Pelvic pain on right side Social History [...] Sex Assigned at Female 01/08/2021 9:43 AM TURF MANAGER Legal Sex Female 5:13 PM CDT Gender Identity Female 01/08/2021 9:43 AM TURF MANAGER Sexual Orientation Straight 01/08/2021 9: 43 AM TURF MANAGER COVID-19 Exposure Response Date Recorded In [...] Rule Out 11/02/2024 11/02/2024 11/02/2024 4:03 PM TURF MANAGER Assessment Noted Time PHQ-9 Depression Total Score: 11 12/ 022 12:00 PM TURF MANAGER documented as of this encounter Care Teams Flume Worker Relationship Specialty Start Date End Date Dasha Conway FNP-STEPH [address] [place] [address] PCP - General 11/02/24 documented as of this encounter
--- OUTSIDE RECORDS SUMMARY | 2025-08-03 19:36 | XMS_ITS | Encounter Summary ---
Author Organization [facility] Address [facility]6 [place] [address] Care Team Providers Care Horticulture Professor Name Role Phone Dasha Conway [facility] Primary Care Provider +1- [phone] Encounter Details Date Type Department Care Team (Late st Contact Info) Description 06/14/2023 [employer] Message Enc [facility] Medical Group Multispecialty Care - [place] [address] [address] [place] [address] Curtis Diaz MD [address] [place] [address] 157 [place] [address] GI cocktail Social History Tobacco Use Types [...] Sex Assigned at Female 01/08/2021 9:43 AM POT FIREMAN Legal Sex Female 5:13 PM CDT Gender Identity Female 01/08/2021 9:43 AM POT FIREMAN Sexual Orientation Straight 01/08/2021 9: 43 AM POT FIREMAN documented as of this encounter Functional Status [...] Rule Out 11/02/2024 11/02/2024 11/02/2024 4:03 PM POT FIREMAN Assessment Noted Time PHQ-9 Depression Total Score: 11 11/05/2 022 12:00 PM POT FIREMAN documented as of this encounter Care Teams Horticulture Professor Relationship Specialty Start Date End Date Dasha Conway, HEADLINER INSTALLER- [address] [place] [address] PCP - General 11/02/24 documented as of this encounter
--- OUTSIDE RECORDS SUMMARY | 2025-08-03 19:36 | XMS_ITS | Encounter Summary ---
Author Organization [facility] Address [facility] [place] [address] Care Team Providers Care Charge Manager Name Role Phone Dasha Conway Erlin [facility] Primary Care Provider +1- [phone] Encounter Details Date Type Department Care Team (Latest Contact Info) Description 01/13/[address] [facility] Medical Group Multispecialty Care - [place] [address] [place] [address] [address] [place], [place] [phone] Curtis Diaz MD 118[address] [facility] 157 [place] [address] Fasting sugar 139 Social History Tobacco Use [...] Sex Assigned at Female 01/08/2021 9:43 AM ASSET CARD CLERK Legal Sex Female 5:13 PM CDT Gender Identity Female 01/08/2021 9:43 AM ASSET CARD CLERK Sexual Orientation Straight 01/08/2021 9: 43 AM ASSET CARD CLERK COVID-19 Exposure Response Date Recorded In the last 10 days, have yo michael been in contact with someone who was confirmed or suspected to have Coronavirus/COVID-19? No / Unsure 01/11/2023 8:54 AM ASSET CARD CLERK documented as of this encounter Functional [...] Rule Out 11/02/2024 11/02/2024 11/02/2024 4:03 PM ASSET CARD CLERK Assessment Noted Time PHQ-9 Depression Total Score: 11 12/2 022 12:00 PM ASSET CARD CLERK documented as of this encounter Care Teams Charge Manager Relationship Specialty Start Date End Date Dasha Conway FNP- [address] [place] [address] PCP - General 11/02/24 documented as of this encounter
--- OUTSIDE RECORDS SUMMARY | 2025-08-03 19:36 | XMS_ITS | Encounter Summary ---
Author Organization [facility] Address [facility] [place] [address] Care Team Providers Care Department Director Name Role Phone Dasha Conway Erlin [facility] Primary Care Provider +1- [phone] Encounter Details Date Type Department Care Team (Late st Contact Info) Description 08/24/2023 [employer] Message Enc [facility] Medical Group Multispecialty Care - [place] [address] [address] [place] [address] Curtis Diaz MD [address] [place] [address] [address] [place] [address] GI doctor Social History Tobacco Use Types [...] Sex Assigned at Female 01/08/2021 9:43 AM LAUNDRY LABORER Legal Sex Female 5:13 PM CDT Gender Identity Female 01/08/2021 9:43 AM LAUNDRY LABORER Sexual Orientation Straight 01/08/2021 9: 43 AM LAUNDRY LABORER documented as of this encounter Functional Status [...] Rule Out 11/02/2024 11/02/2024 11/02/2024 4:03 PM LAUNDRY LABORER Assessment Noted Time PHQ-9 Depression Total Score: 11 11/05/2 022 12:00 PM LAUNDRY LABORER documented as of this encounter Care Teams Department Director Relationship Specialty Start Date End Date Dasha Conway, COUNTRY PRINTER- [address] [place] [address] PCP - General 11/02/24 documented as of this encounter
--- OUTSIDE RECORDS SUMMARY | 2025-08-03 19:36 | XMS_ITS | Encounter Summary ---
Author Organization [facility] Address [facility] [place] [address] Care Team Providers Care Tobacco Sizer Name Role Phone Daryl Metzger MD Primary Care Provider Dasha Vicente [facility] Primary Care Provider +1- [phone] Encounter Details Date Type Department Care Team (Late st Contact Info) Description 09/03/2020 Abstract [facility] at [address] [address] Hussain Barros MA Social History Tobacco Use Types Packs/Day Years Used Date Smoking Tobacco: Every Day Cigarettes Smokeless Tobacco: Never Alcohol Use Standard Drinks/Week Comments Not Currently 0 (1 standard drink = 0.6 oz pur e alcohol) PHQ-2 Answer Date Recorded PHQ-2 Score 3 06/23/2020 Comments No Sex and Gender Information Value Date Recorded Sex Assigned at Female 01/08/2021 9:43 AM AUTO DAMAGE ADJUSTER Legal Sex Female 5:13 PM CDT Gender Identity Female 01/08/2021 9:43 AM AUTO DAMAGE ADJUSTER Sexual Orientation Straight 01/08/2021 9: 43 AM AUTO DAMAGE ADJUSTER COVID-19 Exposure Response Date Recorded In [...] Rule Out 12/16/2020 12/16/2020 12/17/2020 4:31 PM AUTO DAMAGE ADJUSTER COVID-19 Rule Out 06/05/2021 06/05/2021 06/05/2021 12:31 PM CDT COVID-19 Rule Out 10/23/2021 10/23/2021 10/23/2021 9:25 AM AUTO DAMAGE ADJUSTER COVID-19 Rule Out 10/23/2021 10/23/2021 10/24/2021 12:21 AM AUTO DAMAGE ADJUSTER COVID-19 Rule Out 01/15/2022 01/15/2022 01/20/2022 10:53 AM AUTO DAMAGE ADJUSTER COVID-19 Rule Out 04/21/2022 04/21/2022 04/21/2022 11:42 AM CDT COVID-19 Rule Out 04/21/2022 04/21/2022 04/26/2022 7:02 AM CDT COVID-19 Rule Out 10/06/2022 10/06/2022 10/06/2022 1:21 PM AUTO DAMAGE ADJUSTER COVID-19 Rule Out 10/06/2022 10/06/2022 10/07/2022 3:34 PM AUTO DAMAGE ADJUSTER COVID-19 Rule Out 09/14/2023 09/14/2023 09/14/2023 3:48 PM CDT COVID-19 Rule Out 11/02/2024 11/02/2024 11/02/2024 4:03 PM AUTO DAMAGE ADJUSTER Assessment Noted Time PHQ-9 Depression Total Score: 13 020 1:12 PM CDT documented as of this encounter Care Teams Tobacco Sizer Relationship Specialty Start Date End Date Daryl Metzger MD PCP - General FAMILY MEDICINE SPORTS MEDICINE 08/20/20 10/09/20 Dasha Conway, GLASS DEPOSITION TENDER- [address] [place] [address] PCP - General 11/02/24 documented as of this encounter
--- OUTSIDE RECORDS SUMMARY | 2025-08-03 19:36 | XMS_ITS | Encounter Summary ---
Author Organization [facility] Address [facility]6 [place] [address] Care Team Providers Care Cleaning Crew Member Name Role Phone Dasha Conway Erlin [facility] Primary Care Provider +1- [phone] Encounter Details Date Type Department Care Team (Latest Contact Info) Description 09/13/2023 Skills Matter Message Enc [facility] Medical Group Multispecialty Care - [place] [address] [place] [address] [address] [place], [place] [id number] [place] [address] [place] [address] 157 [place], [place] [id number] Unsure what to do Social History Tobacco [...] Assigned at Female 01/08/2021 9:43 AM MACHINE BUILDER Legal Sex Female 5:13 PM CDT Gender Identity Female 01/08/2021 9:43 AM MACHINE BUILDER Sexual Orientation Straight 01/08/2021 9 :43 AM MACHINE BUILDER documented as of this encounter Functional Status [...] Out 11/02/2024 11/02/2024 11/02/2024 4:03 PM MACHINE BUILDER Assessment Noted Time PHQ-9 Depression Total Score: 11 11/05/2 022 12:00 PM MACHINE BUILDER documented as of this encounter Care Teams Cleaning Crew Member Relationship Specialty Start Date End Date Dasha Conway, APARTMENT ASSISTANT MANAGER- [address] [place] [address] PCP - General 11/02/24 documented as of this encounter
--- OUTSIDE RECORDS SUMMARY | 2025-08-03 19:36 | XMS_ITS | Encounter Summary ---
Author Organization [facility] Address [facility] [place] [address] Care Team Providers Care Molecular Modeler Name Role Phone Daryl Metzger MD Primary Care Provider Dasha Vicente [facility] Primary Care Provider +1- [phone] Encounter Details Date Type Department Care Team (Late st Contact Info) Description 09/17/2020 Fixya Message Enc [facility] Medical Group Multispecialty Care - [facility] [address] [facility], [address] [place] [id number] [address], [facility] Provider EGD results Social History Tobacco Use Types Packs/Day Years Used Date Smoking Tobacco: Every Day Cigarettes Smokeless Tobacco: Never Alcohol Use Standard Drinks/Week Comments Not Currently 0 (1 standard drink = 0.6 oz pur e alcohol) PHQ-2 Answer Date Recorded PHQ-2 Score 3 06/23/2020 Comments No Sex and Gender Information Value Date Recorded Sex Assigned at Female 01/08/2021 9:43 AM STARTING SHEET TANK OPERATOR Legal Sex Female 5:13 PM CDT Gender Identity Female 01/08/2021 9:43 AM STARTING SHEET TANK OPERATOR Sexual Orientation Straight 01/08/2021 9: 43 AM STARTING SHEET TANK OPERATOR COVID-19 Exposure Response Date Recorded In [...] Rule Out 12/16/2020 12/16/2020 12/17/2020 4:31 PM STARTING SHEET TANK OPERATOR COVID-19 Rule Out 06/05/2021 06/05/2021 06/05/2021 12:31 PM CDT COVID-19 Rule Out 10/23/2021 10/23/2021 10/23/2021 9:25 AM STARTING SHEET TANK OPERATOR COVID-19 Rule Out 10/23/2021 10/23/2021 10/24/2021 12:21 AM STARTING SHEET TANK OPERATOR COVID-19 Rule Out 01/15/2022 01/15/2022 01/20/2022 10:53 AM STARTING SHEET TANK OPERATOR COVID-19 Rule Out 04/21/2022 04/21/2022 04/21/2022 11:42 AM CDT COVID-19 Rule Out 04/21/2022 04/21/2022 04/26/2022 7:02 AM CDT COVID-19 Rule Out 10/06/2022 10/06/2022 10/06/2022 1:21 PM STARTING SHEET TANK OPERATOR COVID-19 Rule Out 10/06/2022 10/06/2022 10/07/2022 3:34 PM STARTING SHEET TANK OPERATOR COVID-19 Rule Out 09/14/2023 09/14/2023 09/14/2023 3:48 PM CDT COVID-19 Rule Out 11/02/2024 11/02/2024 11/02/2024 4:03 PM STARTING SHEET TANK OPERATOR Assessment Noted Time PHQ-9 Depression Total Score: 13 020 1:12 PM CDT documented as of this encounter Care Teams Molecular Modeler Relationship Specialty Start Date End Date Daryl Metzger MD PCP - General FAMILY MEDICINE SPORTS MEDICINE 08/20/20 10/09/20 Dasha Conway FNP- [address] [place] [address] PCP - General 11/02/24 documented as of this encounter
--- OUTSIDE RECORDS SUMMARY | 2025-08-03 19:36 | XMS_ITS | Encounter Summary ---
Author Organization [facility] Address [facility]6 [place] [address] Care Team Providers Care Policeman Name Role Phone Dasha Conway Erlin [facility] Primary Care Provider +1- [phone] Encounter Details Date Type Department Care Team (Latest Contact Info) Description 01/20/2023 [email or web address] Message Enc [facility] Medical Group Multispecialty Care - [place] [address] [place] [address] [address] [place] [address] Curtis Diaz MD [address] [facility] 157 [place], [place] [phone] Vomiting and sugar Social History Tobacco Use [...] Sex Assigned at Female 01/08/2021 9:43 AM NUCLEAR MEDICINE SUPERVISOR Legal Sex Female 5:13 PM CDT Gender Identity Female 01/08/2021 9:43 AM NUCLEAR MEDICINE SUPERVISOR Sexual Orientation Straight 01/08/2021 9: 43 AM NUCLEAR MEDICINE SUPERVISOR COVID-19 Exposure Response Date Recorded In the last 10 days, have yo michael been in contact with someone who was confirmed or suspected to have Coronavirus/COVID-19? No / Unsure 01/11/2023 8:54 AM NUCLEAR MEDICINE SUPERVISOR documented as of this encounter Functional [...] Rule Out 11/02/2024 11/02/2024 11/02/2024 4:03 PM NUCLEAR MEDICINE SUPERVISOR Assessment Noted Time PHQ-9 Depression Total Score: 11 12/2 022 12:00 PM NUCLEAR MEDICINE SUPERVISOR documented as of this encounter Care Teams Policeman Relationship Specialty Start Date End Date Dasha Conway FNP- [address] [place] [address] PCP - General 11/02/24 documented as of this encounter
--- OUTSIDE RECORDS SUMMARY | 2025-08-03 19:36 | XMS_ITS | Encounter Summary ---
Author Organization [facility] Address [facility]6 [place] [address] Care Team Providers Care Membership Sales Representative Name Role Phone Dasha Conway Erlin [facility] Primary Care Provider +1- [phone] Encounter Details Date Type Department Care Team (Late st Contact Info) Description 02/17/2024 cdream networkt Message Enc [facility] Medical Group Multispecialty Care - [place] [address] [address] [place], [place] [id number] Curtis Diaz MD [address] [place] [address] 157 [place], [place] [phone] Lumps on arm Social History Tobacco Use [...] Sex Assigned at Female 01/08/2021 9:43 AM SHADE CUTTER Legal Sex Female 5:13 PM CDT Gender Identity Female 01/08/2021 9:43 AM SHADE CUTTER Sexual Orientation Straight 01/08/2021 9: 43 AM SHADE CUTTER documented as of this encounter Functional [...] Rule Out 11/02/2024 11/02/2024 11/02/2024 4:03 PM SHADE CUTTER Assessment Noted Time PHQ-9 Depression Total Score: 7 11/16/20 23 9:57 AM SHADE CUTTER documented as of this encounter Care Teams Membership Sales Representative Relationship Specialty Start Date End Date Dasha Conway, VARIOUS EXCEPTIONALITIES TEACHER- [address] [place] [address] PCP - General 11/02/24 documented as of this encounter
--- OUTSIDE RECORDS SUMMARY | 2025-08-03 19:36 | XMS_ITS | Encounter Summary ---
Author Organization [facility] Address [facility]6 [place] [address] Care Team Providers Care Threading Machine Operator Name Role Phone Dasha Conway Erlin [facility] Primary Care Provider +1- [phone] Encounter Details Date Type Department Care Team (Late st Contact Info) Description 02/03/2023 BeanStockdt Message Enc [facility] Medical Group Multispecialty Care - [place] [address] [place] [address] [address] [place] [address] [place] [address] [place] [address] 157 [place] [address] Kidneys Social History Tobacco Use Types Packs/Day [...] Sex Assigned at Female 01/08/2021 9:[address] LIGHT REPAIRER Legal Sex Female 5:13 PM CDT Gender Identity Female 01/08/2021 9:[address] LIGHT REPAIRER Sexual Orientation Straight 01/08/2021 9: [address] LIGHT REPAIRER COVID-19 Exposure Response Date Recorded In [...] Rule Out 11/02/2024 11/02/2024 11/02/2024 4:[address] LIGHT REPAIRER Assessment Noted Time PHQ-9 Depression Total Score: 11 12/2 022 12:[address] LIGHT REPAIRER documented as of this encounter Care Teams Threading Machine Operator Relationship Specialty Start Date End Date Dasha Conway FNP- [address] [place] [address] PCP - General 11/02/24 documented as of this encounter
--- OUTSIDE RECORDS SUMMARY | 2025-08-03 19:36 | XMS_ITS | Encounter Summary ---
Author Organization [facility] Address [facility] [place] [address] Care Team Providers Care Rn Oncology Clinical Name Role Phone Dasha Conway Erlin [facility] Primary Care Provider +1- [phone] Encounter Details Date Type Department Care Team (Late st Contact Info) Description 07/11/2023 Nimbuzzt Message Enc [facility] Medical Group Multispecialty Care - [place] [address] [address] [place] [address] Curtis Diaz MD [address] [place] [address] 157 [place] [address] Relief Social History Tobacco Use Types Packs/Day [...] Sex Assigned at Female 01/08/2021 9:43 AM PITTING MACHINE OPERATOR Legal Sex Female 5:13 PM CDT Gender Identity Female 01/08/2021 9:43 AM PITTING MACHINE OPERATOR Sexual Orientation Straight 01/08/2021 9: 43 AM PITTING MACHINE OPERATOR documented as of this encounter [...] Rule Out 11/02/2024 11/02/2024 11/02/2024 4:03 PM PITTING MACHINE OPERATOR Assessment Noted Time PHQ-9 Depression Total Score: 11 11/05/ 022 12:00 PM PITTING MACHINE OPERATOR documented as of this encounter Care Teams Rn Oncology Clinical Relationship Specialty Start Date End Date Dasha Conway, CHRISTINE- [address] [place] [address] PCP - General 11/02/24 documented as of this encounter
--- OUTSIDE RECORDS SUMMARY | 2025-08-03 19:36 | XMS_ITS | Encounter Summary ---
Author Organization [facility] Address [facility]6 [place] [address] Care Team Providers Care Slice Plug Cutter Operator Helper Name Role Phone Dasha Conway Erlin [facility] Primary Care Provider +1- [phone] Encounter Details Date Type Department Care Team (Latest Contact Info) Description 04/01/2023 amaysim Message Enc [facility] Medical Group Multispecialty Care - [place] [address] [place] [address] [address] [place] [address] Curtis Diaz MD [address] [facility] [address] [place], [place] [phone] Home from surgery Social History Tobacco Use [...] Sex Assigned at Female 01/08/2021 9:43 AM BACKUP SAWYER Legal Sex Female 5:13 PM CDT Gender Identity Female 01/08/2021 9:43 AM BACKUP SAWYER Sexual Orientation Straight 01/08/2021 9: 43 AM BACKUP SAWYER COVID-19 Exposure Response Date Recorded In the [...] Rule Out 11/02/2024 11/02/2024 11/02/2024 4:03 PM BACKUP SAWYER Assessment Noted Time PHQ-9 Depression Total Score: 11 12/ 022 12:00 PM BACKUP SAWYER documented as of this encounter Care Teams Slice Plug Cutter Operator Helper Relationship Specialty Start Date End Date Dasha Conway, SOCIAL WELFARE ADMINISTRATOR- [address] [place] [address] PCP - General 11/02/24 documented as of this encounter
--- OUTSIDE RECORDS SUMMARY | 2025-08-03 19:36 | XMS_ITS | Encounter Summary ---
Author Organization [facility] Address [facility] [place] [address] Care Team Providers Care Hot Dip Plating Supervisor Name Role Phone Dasha Conway Erlin [facility] Primary Care Provider +1- [phone] Encounter Details Date Type Department Care Team (Late st Contact Info) Description 02/06/2024 [email or web address] Message Enc [facility] Medical Group Multispecialty Care - [place] [address] [address] [place], [place] [address] [place] [address] [place] [address] 157 [place] [address] Underarm rash Social History Tobacco Use Types [...] Assigned at Female 01/08/2021 9:43 AM RUBBER OFF Legal Sex Female 5:13 PM CDT Gender Identity Female 01/08/2021 9:43 AM RUBBER OFF Sexual Orientation Straight 01/08/2021 9: 43 AM RUBBER OFF documented as of this encounter Functional Status [...] Out 11/02/2024 11/02/2024 11/02/2024 4:03 PM RUBBER OFF Assessment Noted Time PHQ-9 Depression Total Score: 7 11/16/20 23 9:57 AM RUBBER OFF documented as of this encounter Care Teams Hot Dip Plating Supervisor Relationship Specialty Start Date End Date Dasha Conway, CAR CUSTOMIZER- [address] [place] [address] PCP - General 11/02/24 documented as of this encounter
--- OUTSIDE RECORDS SUMMARY | 2025-08-03 19:36 | XMS_ITS | Encounter Summary ---
Author Organization [facility] Address [facility]6 [place] [address] Care Team Providers Care Golf Course Architect Name Role Phone Dasha Conway Erlin [facility] Primary Care Provider +1- [phone] Encounter Details Date Type Department Care Team (Latest Contact Info) Description 06/21/2023 Presidio Message Enc [facility] Medical Group Multispecialty Care - [place] [address] [place] [address] [address] [place] [address] [place] [address] [place] [address] 157 [place], [place] [phone] More dexamethasone? Social History Tobacco Use Types [...] Assigned at Female 01/08/2021 9:43 AM MANAGER HVAC Legal Sex Female 5:13 PM CDT Gender Identity Female 01/08/2021 9:43 AM MANAGER HVAC Sexual Orientation Straight 01/08/2021 9: 43 AM MANAGER HVAC documented as of this encounter Functional Status [...] Out 11/02/2024 11/02/2024 11/02/2024 4:03 PM MANAGER HVAC Assessment Noted Time PHQ-9 Depression Total Score: 11 11/05/2 022 12:00 PM MANAGER HVAC documented as of this encounter Care Teams Golf Course Architect Relationship Specialty Start Date End Date Dasha Conway, CLEANER FURNITURE- [address] [place] [address] PCP - General 11/02/24 documented as of this encounter
--- OUTSIDE RECORDS SUMMARY | 2025-08-03 19:36 | XMS_ITS | Encounter Summary ---
Author Organization [facility] Address [facility]6 [place] [address] Care Team Providers Care Pressure Supervisor Name Role Phone Dasha Conway Erlin [facility] Primary Care Provider +1- [phone] Encounter Details Date Type Department Care Team (Latest Contact Info) Description 10/23/2020 Cozmik Body Message Enc [facility] Medical Group Multispecialty Care - [place] [address] [place] [address] [address] [place] [address] Curtis Diaz MD [address] [facility] [address] [place], [place] [address] RE: Follow Up/Update Social History Tobacco Use [...] Sex Assigned at Female 01/08/2021 9:43 AM TARGET WORKER Legal Sex Female 5:13 PM CDT Gender Identity Female 01/08/2021 9:43 AM TARGET WORKER Sexual Orientation Straight 01/08/2021 9: 43 AM TARGET WORKER COVID-19 Exposure Response Date Recorded In the last month, have you been in contact with someone who was confirmed or suspected to have Coronavirus / COVID-19? No / Unsure 10/24/2020 10:40 AM TARGET WORKER documented as of this encounter Plan of Treatment Not on file documented as of this encounter Visit Diagnoses Not on filedocumented in this encounter Additional Health Concerns Infection Onset Date Last Indicated Resolved Time 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 06/30/2017 COVID-19 Rule Out 12/16/2020 12/16/2020 12/17/2020 4:31 PM TARGET WORKER COVID-19 Rule Out 06/05/2021 06/05/2021 06/05/2021 12:31 PM CDT COVID-19 Rule Out 10/23/2021 10/23/2021 10/23/2021 9:25 AM TARGET WORKER COVID-19 Rule Out 10/23/2021 10/23/2021 10/24/2021 12:21 AM TARGET WORKER COVID-19 Rule Out 01/15/2022 01/15/2022 01/20/2022 10:53 AM TARGET WORKER COVID-19 Rule Out 04/21/2022 04/21/2022 04/21/2022 11:42 AM CDT COVID-19 Rule Out 04/21/2022 04/21/2022 04/26/2022 7:02 AM CDT COVID-19 Rule Out 10/06/2022 10/06/2022 10/06/2022 1:21 PM TARGET WORKER COVID-19 Rule Out 10/06/2022 10/06/2022 10/07/2022 3:34 PM TARGET WORKER COVID-19 Rule Out 09/14/2023 09/14/2023 09/14/2023 3:48 PM CDT COVID-19 Rule Out 11/02/2024 11/02/2024 11/02/2024 4:03 PM TARGET WORKER Assessment Noted Time PHQ-9 Depression Total Score: 13 020 1:12 PM CDT documented as of this encounter Care Teams Pressure Supervisor Relationship Specialty Start Date End Date Dasha Conway, CHRISTINE- [address] [place] [address] PCP - General 11/02/24 documented as of this encounter
--- OUTSIDE RECORDS SUMMARY | 2025-08-03 19:36 | XMS_ITS | Encounter Summary ---
Author Organization [facility] Address [facility] [place] [address] Care Team Providers Care Divorce Mediator Name Role Phone Dasha Conway Erlin [facility] Primary Care Provider +1- [phone] Encounter Details Date Type Department Care Team (Late st Contact Info) Description 07/08/2023 Virgancet Message Enc [facility] Medical Group Multispecialty Care - [place] [address] [address] [place] [address] [place] [address] [place] [address] 157 [place] [address] Nausea Social History Tobacco Use Types Packs/Day [...] Sex Assigned at Female 01/08/2021 9:43 AM HIGH SCHOOL AGRICULTURE TEACHER Legal Sex Female 5:13 PM CDT Gender Identity Female 01/08/2021 9:43 AM HIGH SCHOOL AGRICULTURE TEACHER Sexual Orientation Straight 01/08/2021 9: 43 AM HIGH SCHOOL AGRICULTURE TEACHER documented as of this encounter Functional [...] Rule Out 11/02/2024 11/02/2024 11/02/2024 4:03 PM HIGH SCHOOL AGRICULTURE TEACHER Assessment Noted Time PHQ-9 Depression Total Score: 11 11/05/ 022 12:00 PM HIGH SCHOOL AGRICULTURE TEACHER documented as of this encounter Care Teams Divorce Mediator Relationship Specialty Start Date End Date Dasha Conway, CHRISTINE- [address] [place] [address] PCP - General 11/02/24 documented as of this encounter
--- OUTSIDE RECORDS SUMMARY | 2025-08-03 19:36 | XMS_ITS | Encounter Summary ---
Author Organization [facility] Address [facility] [place] [address] Care Team Providers Care Recycling Technician Name Role Phone Dasha Conway Erlin [facility] Primary Care Provider +1- [phone] Encounter Details Date Type Department Care Team (Late st Contact Info) Description 09/14/2023 Minust Message Enc [facility] Medical Group Multispecialty Care - [place] [address] [place] [address] [address] [place] [address] [place] [address] [place] [address] 157 [place] [address] Chest xray Social History Tobacco Use Types [...] Sex Assigned at Female 01/08/2021 9:43 AM FHA UNDERWRITER Legal Sex Female 5:13 PM CDT Gender Identity Female 01/08/2021 9:43 AM FHA UNDERWRITER Sexual Orientation Straight 01/08/2021 9: 43 AM FHA UNDERWRITER documented as of this encounter Functional Status [...] Rule Out 11/02/2024 11/02/2024 11/02/2024 4:03 PM FHA UNDERWRITER Assessment Noted Time PHQ-9 Depression Total Score: 11 11/05/ 022 12:00 PM FHA UNDERWRITER documented as of this encounter Care Teams Recycling Technician Relationship Specialty Start Date End Date Dasha Conway, DIRECTOR OF RETAIL MERCHANDISING- [address] [place] [address] PCP - General 11/02/24 documented as of this encounter
--- OUTSIDE RECORDS SUMMARY | 2025-08-03 19:36 | XMS_ITS | Encounter Summary ---
Author Organization [facility] Address [facility]6 [place] [address] Care Team Providers Care Warehouse Technician Name Role Phone Dasha Conway Erlin [facility] Primary Care Provider +1- [phone] Encounter Details Date Type Department Care Team (Latest Contact Info) Description 02/12/2024 Spotbros Message Enc [facility] Medical Group Multispecialty Care - [place] [address] [place] [address] [address] [place], [place] [phone] [place] [address] [place] [address] 157 [place], [place] [phone] Shoulder/arm pain Social History Tobacco Use Types [...] Sex Assigned at Female 01/08/2021 9:43 AM ENVIRONMENTAL MARKETING REPRESENTATIVE Legal Sex Female 5:13 PM CDT Gender Identity Female 01/08/2021 9:43 AM ENVIRONMENTAL MARKETING REPRESENTATIVE Sexual Orientation Straight 01/08/2021 9: 43 AM ENVIRONMENTAL MARKETING REPRESENTATIVE documented as of this encounter Functional Status [...] Rule Out 11/02/2024 11/02/2024 11/02/2024 4:03 PM ENVIRONMENTAL MARKETING REPRESENTATIVE Assessment Noted Time PHQ-9 Depression Total Score: 7 11/16/20 23 9:57 AM ENVIRONMENTAL MARKETING REPRESENTATIVE documented as of this encounter Care Teams Warehouse Technician Relationship Specialty Start Date End Date Dasha Conway, STORE GROUP MANAGER- [address] [place] [address] PCP - General 11/02/24 documented as of this encounter
--- OUTSIDE RECORDS SUMMARY | 2025-08-03 19:36 | XMS_ITS | Encounter Summary ---
Author Organization [facility] Address [facility]6 [place] [address] Care Team Providers Care Tool Planner Name Role Phone Dasha Conway Erlin [facility] Primary Care Provider +1- [phone] Encounter Details Date Type Department Care Team (Late st Contact Info) Description 04/04/2023 Jouncet Message Enc [facility] Medical Group Multispecialty Care [place] [address] [place] [address] [address] [place] [address] [place] [address] [place] [address] [address] [place] [address] Medication Social History Tobacco Use Types Packs/Day [...] Sex Assigned at Female 01/08/2021 9:43 AM DOCUMENT CONTROL COORDINATOR Legal Sex Female 5:13 PM CDT Gender Identity Female 01/08/2021 9:43 AM DOCUMENT CONTROL COORDINATOR Sexual Orientation Straight 01/08/2021 9: 43 AM DOCUMENT CONTROL COORDINATOR COVID-19 Exposure Response Date Recorded In [...] Rule Out 11/02/2024 11/02/2024 11/02/2024 4:03 PM DOCUMENT CONTROL COORDINATOR Assessment Noted Time PHQ-9 Depression Total Score: 11 12/ 022 12:00 PM DOCUMENT CONTROL COORDINATOR documented as of this encounter Care Teams Tool Planner Relationship Specialty Start Date End Date Dasha Conway, BOMB SQUAD OFFICER- [address] [place] [address] PCP - General 11/02/24 documented as of this encounter
--- OUTSIDE RECORDS SUMMARY | 2025-08-03 19:36 | XMS_ITS | Encounter Summary ---
Author Organization [facility] Address [facility]6 [place] [address] Care Team Providers Care Song Writer Name Role Phone Dasha Conway Erlin [facility] Primary Care Provider +1- [phone] Encounter Details Date Type Department Care Team (Late st Contact Info) Description 02/14/2023 BabyFirstTVt Message Enc [facility] Medical Group Multispecialty Care [place] [address] [address] [place] [address] [place] [address] [place] [address] 157 [place] [address] A1c Social History Tobacco Use Types Packs/Day [...] Assigned at Female 01/08/2021 9:43 AM PROP MAKING SUPERVISOR Legal Sex Female 5:13 PM CDT Gender Identity Female 01/08/2021 9:43 AM PROP MAKING SUPERVISOR Sexual Orientation Straight 01/08/2021 9: 43 AM PROP MAKING SUPERVISOR COVID-19 Exposure Response Date Recorded In [...] Out 11/02/2024 11/02/2024 11/02/2024 4:03 PM PROP MAKING SUPERVISOR Assessment Noted Time PHQ-9 Depression Total Score: 11 12/ 022 12:00 PM PROP MAKING SUPERVISOR documented as of this encounter Care Teams Song Writer Relationship Specialty Start Date End Date Dasha Conway, BIOMETRICS SPECIALIST- [address] [place] [address] PCP - General 11/02/24 documented as of this encounter
--- OUTSIDE RECORDS SUMMARY | 2025-08-03 19:36 | XMS_ITS | Encounter Summary ---
Author Organization [facility] Address [facility]6 [place] [address] Care Team Providers Care Jewelry Inspector Name Role Phone Dasha Conway Erlin [facility] Primary Care Provider +1- [phone] Encounter Details Date Type Department Care Team (Latest Contact Info) Description 01/17/2023 Broadcast Grade Weather & Channel Branding Graphics Display System Message Enc [facility] Medical Group Multispecialty Care - [place] [address] [place] [address] [address] [place] [address] Curtis Diaz MD [address] [facility] 157 [place], [place] [address] morning blood sugars Social History Tobacco Use [...] Assigned at Female 01/08/2021 9:43 AM PLANT OPERATIONS COORDINATOR Legal Sex Female 5:13 PM CDT Gender Identity Female 01/08/2021 9:43 AM PLANT OPERATIONS COORDINATOR Sexual Orientation Straight 01/08/2021 9: 43 AM PLANT OPERATIONS COORDINATOR COVID-19 Exposure Response Date Recorded In the last 10 days, have yo michael been in contact with someone who was confirmed or suspected to have Coronavirus/COVID-19? No / Unsure 01/11/2023 8:54 AM PLANT OPERATIONS COORDINATOR documented as of this encounter Functional [...] Out 11/02/2024 11/02/2024 11/02/2024 4:03 PM PLANT OPERATIONS COORDINATOR Assessment Noted Time PHQ-9 Depression Total Score: 11 12/2 022 12:00 PM PLANT OPERATIONS COORDINATOR documented as of this encounter Care Teams Jewelry Inspector Relationship Specialty Start Date End Date Dasha Conway FNP- [address] [place] [address] PCP - General 11/02/24 documented as of this encounter
--- OUTSIDE RECORDS SUMMARY | 2025-08-03 19:37 | XMS_ITS | Encounter Summary ---
Author Organization [facility] Address [facility] [place] [address] Care Team Providers Care Skiver Sock Linings Name Role Phone Dasha Conway Erlin [facility] Primary Care Provider +1- [phone] Encounter Details Date Type Department Care Team (Latest Contact Info) Description 11/27/2020 Amiarehart Message Enc [facility] Medical Group Multispecialty Care - [place] [address] [place] [address] [address] [place] [address] Curtis Diaz MD 118[address] [facility] 157 [place], [place] [id number] Medication Questions Social History Tobacco Use Types [...] Sex Assigned at Female 01/08/2021 9:43 AM CREEL CLEANER Legal Sex Female 5:13 PM CDT Gender Identity Female 01/08/2021 9:43 AM CREEL CLEANER Sexual Orientation Straight 01/08/2021 9: 43 AM CREEL CLEANER COVID-19 Exposure Response Date Recorded In the last month, have you been in contact with someone who was confirmed or suspected to have Coronavirus / COVID-19? No / Unsure 11/28/2020 3:29 PM CREEL CLEANER documented as of this encounter Plan of Treatment Not on file documented as of this encounter Visit Diagnoses Not on filedocumented in this encounter Additional Health Concerns Infection Onset Date Last Indicated Resolved Time 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 06/30/2017 COVID-19 Rule Out 12/16/2020 12/16/2020 12/17/2020 4:31 PM CREEL CLEANER COVID-19 Rule Out 06/05/2021 06/05/2021 06/05/2021 12:31 PM CDT COVID-19 Rule Out 10/23/2021 10/23/2021 10/23/2021 9:25 AM CREEL CLEANER COVID-19 Rule Out 10/23/2021 10/23/2021 10/24/2021 12:21 AM CREEL CLEANER COVID-19 Rule Out 01/15/2022 01/15/2022 01/20/2022 10:53 AM CREEL CLEANER COVID-19 Rule Out 04/21/2022 04/21/2022 04/21/2022 11:42 AM CDT COVID-19 Rule Out 04/21/2022 04/21/2022 04/26/2022 7:02 AM CDT COVID-19 Rule Out 10/06/2022 10/06/2022 10/06/2022 1:21 PM CREEL CLEANER COVID-19 Rule Out 10/06/2022 10/06/2022 10/07/2022 3:34 PM CREEL CLEANER COVID-19 Rule Out 09/14/2023 09/14/2023 09/14/2023 3:48 PM CDT COVID-19 Rule Out 11/02/2024 11/02/2024 11/02/2024 4:03 PM CREEL CLEANER Assessment Noted Time PHQ-9 Depression Total Score: 020 1:12 PM CDT documented as of this encounter Care Teams Skiver Sock Linings Relationship Specialty Start Date End Date Dasha Conway, CHRISTINE- [address] [place] [address] PCP - General 11/02/24 documented as of this encounter
--- OUTSIDE RECORDS SUMMARY | 2025-08-03 19:37 | XMS_ITS | Encounter Summary ---
Author Organization [facility] Address [facility]6 [place] [address] Care Team Providers Care Instructional Technology Coach Name Role Phone Dasha Conway [facility] Primary Care Provider +1- [phone] Encounter Details Date Type Department Care Team (Latest Contact Info) Description 03/30/2021 [employer] Message Enc [facility] Medical Group Multispecialty Care - [address] [place] [address] Mela Elaine, CONSTRUCTION PROJECT MGR RE: Test Results Social History Tobacco Use [...] at Female 01/08/2021 9:43 AM SUPERVISOR WOOD CREW Legal Sex Female 5:13 PM CDT Gender Identity Female 01/08/2021 9:43 AM SUPERVISOR WOOD CREW Sexual Orientation Straight 01/08/2021 9: 43 AM SUPERVISOR WOOD CREW COVID-19 Exposure Response Date Recorded In the [...] Out 10/23/2021 10/23/2021 10/23/2021 9:25 AM SUPERVISOR WOOD CREW COVID-19 Rule Out 10/23/2021 10/23/2021 10/24/2021 12:21 AM SUPERVISOR WOOD CREW COVID-19 Rule Out 01/15/2022 01/15/2022 01/20/2022 10:53 AM SUPERVISOR WOOD CREW COVID-19 Rule Out 04/21/2022 04/21/2022 04/21/2022 11:42 AM CDT COVID-19 Rule Out 04/21/2022 04/21/2022 04/26/2022 7:02 AM CDT COVID-19 Rule Out 10/06/2022 10/06/2022 10/06/2022 1:21 PM SUPERVISOR WOOD CREW COVID-19 Rule Out 10/06/2022 10/06/2022 10/07/2022 3:34 PM SUPERVISOR WOOD CREW COVID-19 Rule Out 09/14/2023 09/14/2023 09/14/2023 3:48 PM CDT COVID-19 Rule Out 11/02/2024 11/02/2024 11/02/2024 4:03 PM SUPERVISOR WOOD CREW Assessment Noted Time PHQ-9 Depression Total Score: 22 021 9:18 AM CDT documented as of this encounter Care Teams Instructional Technology Coach Relationship Specialty Start Date End Date Dasha Conway, NEON SIGN SERVICER- [address] [place] [address] PCP - General 11/02/24 documented as of this encounter
--- OUTSIDE RECORDS SUMMARY | 2025-08-03 19:37 | XMS_ITS | Encounter Summary ---
Author Organization [facility] Address [facility]6 [place] [address] Care Team Providers Care Quality Eng Name Role Phone Dasha Conway [facility] Primary Care Provider +1- [phone] Encounter Details Date Type Department Care Team (Latest Contact Info) Description 03/02/2021 Lifesquaret Message Enc [facility] Medical Group Multispecialty Care - [address] [place] [address] Mela Elaine, DENTAL TECHNOLOGY ADVISOR RE: Follow Up/Update Social History Tobacco Use [...] Sex Assigned at Female 01/08/2021 9:43 AM SCAN COORDINATOR Legal Sex Female 5:13 PM CDT Gender Identity Female 01/08/2021 9:43 AM SCAN COORDINATOR Sexual Orientation Straight 01/08/2021 9: 43 AM SCAN COORDINATOR COVID-19 Exposure Response Date Recorded In [...] Rule Out 10/23/2021 10/23/2021 10/23/2021 9:25 AM SCAN COORDINATOR COVID-19 Rule Out 10/23/2021 10/23/2021 10/24/2021 12:21 AM SCAN COORDINATOR COVID-19 Rule Out 01/15/2022 01/15/2022 01/20/2022 10:53 AM SCAN COORDINATOR COVID-19 Rule Out 04/21/2022 04/21/2022 04/21/2022 11:42 AM CDT COVID-19 Rule Out 04/21/2022 04/21/2022 04/26/2022 7:02 AM CDT COVID-19 Rule Out 10/06/2022 10/06/2022 10/06/2022 1:21 PM SCAN COORDINATOR COVID-19 Rule Out 10/06/2022 10/06/2022 10/07/2022 3:34 PM SCAN COORDINATOR COVID-19 Rule Out 09/14/2023 09/14/2023 09/14/2023 3:48 PM CDT COVID-19 Rule Out 11/02/2024 11/02/2024 11/02/2024 4:03 PM SCAN COORDINATOR Assessment Noted Time PHQ-9 Depression Total Score: 13 020 1:12 PM CDT documented as of this encounter Care Teams Quality Eng Relationship Specialty Start Date End Date Dasha Conway FNP- [address] [place] [address] PCP - General 11/02/24 documented as of this encounter
--- OUTSIDE RECORDS SUMMARY | 2025-08-03 19:37 | XMS_ITS | Encounter Summary ---
Author Organization [facility] Address [facility]6 [place] [address] Care Team Providers Care Cigarette Package Examiner Name Role Phone Dasha Conway [facility] Primary Care Provider [phone]- [phone] Encounter Details Date Type Department Care Team (Latest Contact Info) Description 04/01/2021 HESIODOt Message Enc [facility] Medical Group Multispecialty Care - [place] [address] [place] [address] [address] [place] [address] [place] [address] [place] [address] 157 [place], [place] [id number] RE: Follow Up/Update Social History Tobacco Use [...] Assigned at Female 01/08/2021 9:43 AM TECHNICAL SUPPORT ASSISTANT Legal Sex Female 5:13 PM CDT Gender Identity Female 01/08/2021 9:43 AM TECHNICAL SUPPORT ASSISTANT Sexual Orientation Straight 01/08/2021 9: 43 AM TECHNICAL SUPPORT ASSISTANT COVID-19 Exposure Response Date Recorded In [...] Out 10/23/2021 10/23/2021 10/23/2021 9:25 AM TECHNICAL SUPPORT ASSISTANT COVID-19 Rule Out 10/23/2021 10/23/2021 10/24/2021 12:21 AM TECHNICAL SUPPORT ASSISTANT COVID-19 Rule Out 01/15/2022 01/15/2022 01/20/2022 10:53 AM TECHNICAL SUPPORT ASSISTANT COVID-19 Rule Out 04/21/2022 04/21/2022 04/21/2022 11:42 AM CDT COVID-19 Rule Out 04/21/2022 04/21/2022 04/26/2022 7:02 AM CDT COVID-19 Rule Out 10/06/2022 10/06/2022 10/06/2022 1:21 PM TECHNICAL SUPPORT ASSISTANT COVID-19 Rule Out 10/06/2022 10/06/2022 10/07/2022 3:34 PM TECHNICAL SUPPORT ASSISTANT COVID-19 Rule Out 09/14/2023 09/14/2023 09/14/2023 3:48 PM CDT COVID-19 Rule Out 11/02/2024 11/02/2024 11/02/2024 4:03 PM TECHNICAL SUPPORT ASSISTANT Assessment Noted Time PHQ-9 Depression Total Score: 22 021 9:18 AM CDT documented as of this encounter Care Teams Cigarette Package Examiner Relationship Specialty Start Date End Date Dasha Conway FNP- [address] [place] [address] PCP - General 11/02/24 documented as of this encounter
--- OUTSIDE RECORDS SUMMARY | 2025-08-03 19:37 | XMS_ITS | Encounter Summary ---
Author Organization [facility] Address [facility]6 [place] [address] Care Team Providers Care Sales Development Representative Name Role Phone Dasha Conway Erlin [facility] Primary Care Provider [phone]- [phone] Encounter Details Date Type Department Care Team (Latest Contact Info) Description 12/03/2020 The[employer] Network[employer] Message Enc [facility] Medical Group Multispecialty Care - [place] [address] [place] [address] [address] [place] [address] Curtis Diaz MD [address] [facility] 157 [place], [place] [id number] Medication Questions Social History Tobacco Use Types [...] Sex Assigned at Female 01/08/2021 9:43 AM PROGRAMMING COORDINATOR Legal Sex Female 5:13 PM CDT Gender Identity Female 01/08/2021 9:43 AM PROGRAMMING COORDINATOR Sexual Orientation Straight 01/08/2021 9: 43 AM PROGRAMMING COORDINATOR COVID-19 Exposure Response Date Recorded In the last month, have you been in contact with someone who was confirmed or suspected to have Coronavirus / COVID-19? No / Unsure 11/28/2020 3:29 PM PROGRAMMING COORDINATOR documented as of this encounter Plan of Treatment Not on file documented as of this encounter Visit Diagnoses Not on filedocumented in this encounter Additional Health Concerns Infection Onset Date Last Indicated Resolved Time 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 06/30/2017 COVID-19 Rule Out 12/16/2020 12/16/2020 12/17/2020 4:31 PM PROGRAMMING COORDINATOR COVID-19 Rule Out 06/05/2021 06/05/2021 06/05/2021 12:31 PM CDT COVID-19 Rule Out 10/23/2021 10/23/2021 10/23/2021 9:25 AM PROGRAMMING COORDINATOR COVID-19 Rule Out 10/23/2021 10/23/2021 10/24/2021 12:21 AM PROGRAMMING COORDINATOR COVID-19 Rule Out 01/15/2022 01/15/2022 01/20/2022 10:53 AM PROGRAMMING COORDINATOR COVID-19 Rule Out 04/21/2022 04/21/2022 04/21/2022 11:42 AM CDT COVID-19 Rule Out 04/21/2022 04/21/2022 04/26/2022 7:02 AM CDT COVID-19 Rule Out 10/06/2022 10/06/2022 10/06/2022 1:21 PM PROGRAMMING COORDINATOR COVID-19 Rule Out 10/06/2022 10/06/2022 10/07/2022 3:34 PM PROGRAMMING COORDINATOR COVID-19 Rule Out 09/14/2023 09/14/2023 09/14/2023 3:48 PM CDT COVID-19 Rule Out 11/02/2024 11/02/2024 11/02/2024 4:03 PM PROGRAMMING COORDINATOR Assessment Noted Time PHQ-9 Depression Total Score: 020 1:12 PM CDT documented as of this encounter Care Teams Sales Development Representative Relationship Specialty Start Date End Date Dasha Conway, CHRISTINE- [address] [place] [address] PCP - General 11/02/24 documented as of this encounter
--- OUTSIDE RECORDS SUMMARY | 2025-08-03 19:37 | XMS_ITS | Encounter Summary ---
Author Organization [facility] Healthcare Address [address] [place] [address] Care Team Providers Care Bottom Worker Name Role Phone Esteban Soler MD Unavailable Curtis Diaz MD Primary Care Provider [phone] Donovan Parks MD Unavailable Dasha Conway NP Primary Care Provider [phone] Dasha Conway SPA ASSOCIATE Primary Care Provider [phone] Encounter Details Date Type Department Care Team (Late st Contact Info) Description 08/12/2018 Orders Only [facility] Health Information Management [address] [place] [address] Scanning, Provider Social History Tobacco Use Types Packs/Day Years Used Date Smoking Tobacco: Every Day Cigarettes Smokeless Tobacco: Never Alcohol Use Standard Drinks/Week Comments No 0 (1 standard drink = 0.6 oz pur e alcohol) Comments Unknown Sex and Gender Information Value Date Recorded Sex Assigned at Not on file Legal Sex Female 3:37 AM FITTER AND TURNER Gender Identity Female 10/02/2019 1:12 AM FITTER AND TURNER Sexual Orientation Straight 10/02/2019 1: 12 AM FITTER AND TURNER documented as of this encounter Plan of Treatment Not on file documented as of this encounter Procedures Procedure Name Priority Date/Time Associated Diagnosis Comments SCAN - RADIOLOGY/IMAGING 08/12/2018 documented in this encounter Results * SCAN - RADIOLOGY/IMAGING (08/12/2018) Anatomical Region Laterality Modality Other us Provider Scanning Final Result documented in this encounter Visit Diagnoses Not on filedocumented in this encounter Care Teams Bottom Worker Relationship Specialty Start Date End Date Curtis Diaz MD [address] [place] [address] PCP - General Internal Medicine 06/12/21 08/22/24 Dasha Conway NP [address] [place] [address] PCP - General Family Medicine 08/23/24 05/01/25 Dasha Conway NP [address] [facility] [address] [place], [place] [address] PCP - General Family Medicine 05/02/25 Esteban Soler MD [address] [facility] [address] [place] [address] Consulting Physician Rheumatology 09/10/19 06/11/21 Donovan Parks MD [address] [place] [address] Referring Physician Gastroenterology 06/12/21 documented as of this encounter
--- OUTSIDE RECORDS SUMMARY | 2025-08-03 19:37 | XMS_ITS | Encounter Summary ---
Author Organization [facility] Address Replaced by [facility] [place] [address] Care Team Providers Care Insurance Advisor Name Role Phone Dasha Conway Erlin [facility] Primary Care Provider [phone]- [phone] Encounter Details Date Type Department Care Team (Latest Contact Info) Description 04/18/2024 [employer] Message Enc [facility] Medical Group Multispecialty Care - [place] [address] [address] [place] [address] [place] [address] [place] [address] 157 [place], [place] [id number] Thrush/fluconazole Social History Tobacco Use Types Packs/Day [...] Sex Assigned at Female 01/08/2021 9:43 AM MICROFILMING DOCUMENT PREPARER Legal Sex Female 5:13 PM CDT Gender Identity Female 01/08/2021 9:43 AM MICROFILMING DOCUMENT PREPARER Sexual Orientation Straight 01/08/2021 9: 43 AM MICROFILMING DOCUMENT PREPARER documented as of this encounter Functional Status [...] Rule Out 11/02/2024 11/02/2024 11/02/2024 4:03 PM MICROFILMING DOCUMENT PREPARER Assessment Noted Time PHQ-9 Depression Total Score: 7 11/16/20 23 9:57 AM MICROFILMING DOCUMENT PREPARER documented as of this encounter Care Teams Insurance Advisor Relationship Specialty Start Date End Date Dasha Conway, INSTRUCTIONAL MANAGER- [address] [place] [address] PCP - General 11/02/24 documented as of this encounter
--- OUTSIDE RECORDS SUMMARY | 2025-08-03 19:37 | XMS_ITS | Encounter Summary ---
Author Organization [facility] Address [facility]6 [place] [address] Care Team Providers Care Design Maker Name Role Phone Dasha Conway [facility] Primary Care Provider [phone]- [phone] Encounter Details Date Type Department Care Team (Late st Contact Info) Description 05/04/2024 Etopust Message Enc [facility] Medical Group Multispecialty Care - [place] [address] [place], [place] [address] Melida Wiley, WET PROCESS HEAD MILLER [address] [place] [address] Itraconazole Social History Tobacco Use Types Packs/Day [...] Sex Assigned at Female 01/08/2021 9:43 AM SOLUTIONS SPECIALIST Legal Sex Female 5:13 PM CDT Gender Identity Female 01/08/2021 9:43 AM SOLUTIONS SPECIALIST Sexual Orientation Straight 01/08/2021 9: 43 AM SOLUTIONS SPECIALIST documented as of this encounter Functional Status [...] Rule Out 11/02/2024 11/02/2024 11/02/2024 4:03 PM SOLUTIONS SPECIALIST Assessment Noted Time PHQ-9 Depression Total Score: 7 11/16/20 23 9:57 AM SOLUTIONS SPECIALIST documented as of this encounter Care Teams Design Maker Relationship Specialty Start Date End Date Dasha Conway, CHRISTINE- [address] [place] [address] PCP - General 11/02/24 documented as of this encounter
--- OUTSIDE RECORDS SUMMARY | 2025-08-03 19:37 | XMS_ITS | Encounter Summary ---
Author Organization [facility] Address Counts include 234 beds at the [facility]6 [place] [address] Care Team Providers Care Subway Repair Supervisor Name Role Phone Dasha Conway Erlin [facility] Primary Care Provider [phone]- [phone] Encounter Details Date Type Department Care Team (Late st Contact Info) Description 03/24/2021 CoNarrativet Message Enc [facility] Medical Group Multispecialty Care - [place] [address] [address] [place], [place] [phone] Curtis Diaz MD [address] [place] [address] 157 [place], [place] [phone] Question Social History Tobacco Use Types Packs/Day [...] Sex Assigned at Female 01/08/2021 9:43 AM OUTSIDE DEALER SALES REPRESENTATIVE Legal Sex Female 5:13 PM CDT Gender Identity Female 01/08/2021 9:43 AM OUTSIDE DEALER SALES REPRESENTATIVE Sexual Orientation Straight 01/08/2021 9: 43 AM OUTSIDE DEALER SALES REPRESENTATIVE COVID-19 Exposure Response Date Recorded [...] Rule Out 10/23/2021 10/23/2021 10/23/2021 9:25 AM OUTSIDE DEALER SALES REPRESENTATIVE COVID-19 Rule Out 10/23/2021 10/23/2021 10/24/2021 12:21 AM OUTSIDE DEALER SALES REPRESENTATIVE COVID-19 Rule Out 01/15/2022 01/15/2022 01/20/2022 10:53 AM OUTSIDE DEALER SALES REPRESENTATIVE COVID-19 Rule Out 04/21/2022 04/21/2022 04/21/2022 11:42 AM CDT COVID-19 Rule Out 04/21/2022 04/21/2022 04/26/2022 7:02 AM CDT COVID-19 Rule Out 10/06/2022 10/06/2022 10/06/2022 1:21 PM OUTSIDE DEALER SALES REPRESENTATIVE COVID-19 Rule Out 10/06/2022 10/06/2022 10/07/2022 3:34 PM OUTSIDE DEALER SALES REPRESENTATIVE COVID-19 Rule Out 09/14/2023 09/14/2023 09/14/2023 3:48 PM CDT COVID-19 Rule Out 11/02/2024 11/02/2024 11/02/2024 4:03 PM OUTSIDE DEALER SALES REPRESENTATIVE Assessment Noted Time PHQ-9 Depression Total Score: 13 020 1:12 PM CDT documented as of this encounter Care Teams Subway Repair Supervisor Relationship Specialty Start Date End Date Dasha Conway FNP-STEPH [address] [place] [address] PCP - General 11/02/24 documented as of this encounter
--- OUTSIDE RECORDS SUMMARY | 2025-08-03 19:37 | XMS_ITS | Encounter Summary ---
Author Organization [facility] Address [facility] [place] [address] Care Team Providers Care Bonding And Composite Fabricator Name Role Phone Dasha Conway Erlin [facility] Primary Care Provider [phone] Encounter Details Date Type Department Care Team (Late st Contact Info) Description 04/01/2024 BlueYieldt Message Enc [facility] Medical Group Multispecialty Care - [address] [address] [address] [place] [address] Curtis Diaz MD [address] [place] [address] [address] [place] [address] Fluconazole Social History Tobacco Use Types Packs/Day [...] Assigned at Female 01/08/2021 9:43 AM SUPERVISOR PROPELLANT CHARGE LOADING Legal Sex Female 5:13 PM CDT Gender Identity Female 01/08/2021 9:43 AM SUPERVISOR PROPELLANT CHARGE LOADING Sexual Orientation Straight 01/08/2021 9: 43 AM SUPERVISOR PROPELLANT CHARGE LOADING documented as of this encounter Functional Status [...] Out 11/02/2024 11/02/2024 11/02/2024 4:03 PM SUPERVISOR PROPELLANT CHARGE LOADING Assessment Noted Time PHQ-9 Depression Total Score: 7 11/16/20 23 9:57 AM SUPERVISOR PROPELLANT CHARGE LOADING documented as of this encounter Care Teams Bonding And Composite Fabricator Relationship Specialty Start Date End Date Dasha Conway, FOAM TANK LAMINATOR- [address] [place] [address] PCP - General 11/02/24 documented as of this encounter
--- OUTSIDE RECORDS SUMMARY | 2025-08-03 19:37 | XMS_ITS | Clinical Summary ---
Author Organization [facility] Address [address] [place] [address] Care Team Providers Care Websphere Developer Name Role Phone Dasha Conway Erlin [facility] Primary Care Provider [phone] Allergies Active Allergy Reactions Criticality Noted Date [...] (CMS/HCC HHS/HCC) 12/ Methylenetetrahydrofolate reductase deficiency ( [facility]) 11/16/2023 Angina pectoris, unspecified 11/16/2023 Pulmonary emphysema, unspeci fied emphysema type ([facility]) 09/14/2022 Abdominal pain 06/13/2022 Peripheral vascular disease, unspecified 022 Vertigo 01/29/2022 Type 2 diabetes mellitus wit h hyperglycemia, without long-term current use of insulin ([facility]) 11/03/2021 Overview (11/03/2021): On glipizide Assessment & Plan (02/02/2022 12:08 PM CDT): On Glipizide and controlled. Colitis 05/20/2021 Carpal tunnel syndrome of right wrist 01/27/2021 Shoulder pain, left 01/13/[address] 12/11/2020 History of esophageal stricture 12/01/2020 Overview (12/01/2020): Added automatically from request for surgery [id number] Regurgitation of food 12/01/2020 Overview (12/01/2020): Added automatically from request for surgery [id number] GERD (gastroesophageal reflux disease) Overview (12/01/2020): Added automatically from request for surgery [id number] Precordial pain 09/26/2020 H/O food allergy 09/09/2020 BMI 31.0-31.9,adult 09/09/2020 Dysphagia 08/06/2020 Overview (08/06/2020): Added automatically from request for surgery [id number] PTSD (post-traumatic stress disorder) 07/31/2020 Pes anserine bursitis 07/17/2020 Impaired glucose tolerance 03/13/2020 Iron deficiency 03/13/2020 Vitamin D deficiency 03/13/2020 Overview (10/06/2020): nml folate Hyperlipidemia associated wi th type 2 diabetes mellitus ([facility] 03/12/2020 Other ill-defined heart diseases 03/12/2020 Overweight 03/12/2020 Palpitations 03/12/2020 Antiphospholipid syndrome ([facility]) 02/20/2020 Overview (02/02/2022): Controlled. On Xarelto 20 mg daily. Patient will follow with her clinic physician director as planned. Assessment & Plan (02/02/2022 12:09 PM CDT): Controlled. On Xarelto 20 mg daily. Patient will follow with her clinic physician director as planned. MTHFR mutation 01/28/2020 Overview (11/24/2020): Controlled. On Xarelto 20 mg daily. On Asprin. Patient will follow with her clinic physician director as planned. Alopecia 01/17/2020 Overview (08/31/2023): Alopecia;Recorded Elsewhere: No Location: [facility] Source: EHR Chronic: N Practice ID: [id number] [...] benefit and potential interaction with Dulera per swager operator. Started LDN 4.5mg daily on 04/12/2020. Denies [...] Pelvic and perineal pain;Recorded Elsewhere: No Location: [facility] Source: EHR Chronic: N Practice ID: [id number] Billable Time: 09:45:00 AM IBS (irritable bowel syndrome) 06/15/2019 Syncope 06/10/2019 Chronic pain 05/21/2019 Nicotine dependence 09/21/2016 Factor V Leiden (HHS/HCC) 08/26/2015 Overview (02/02/2022): No acute concerns. Continue with Asprin and Xarelto 20 mg daily. Patient will follow up with clinic physician director for future appointments Assessment & Plan (02/02/2022 12:10 PM CDT): No acute concerns. Continue with Asprin and Xarelto 20 mg daily. Patient will follow up with clinic physician director for future appointments Hematologic disorder 08/23/2015 Schizoaffective disorder ([facility]) 04/12 Overview (11/24/2020): -Patient currently stable [...] Overview (08/31/2023): Endometriosis, unspecified;Recorded Elsewhere: No Location: [facility] Source: EHR Chronic: N Practice ID: [id number] Billable Time: 09:45:00 AM Arthritis 09/21/2010 Atypical bipolar affective disorder ([facility]) 08/06/2009 Overview (02/02/2022): -Patient currently stable [...] 09/09/2020 COPD (chronic obstructive pu lmonary disease) ([facility]) 06/15/2019 09/09/2020 Tobacco abuse 06/15/2019 08/20/2020 [...] 08/23/2015 08/20/2020 Endometritis 04/04/2015 04/03/2021 Oligohydramnios antepartum ([facility]/H[facility]) 03/12/2015 06/23/2020 , normal, incidental ([facility]) 03/07/2015 06/23/2020 Lower abdominal pain 01/17/2015 020 , incidental ([facility]) 01/11/2015 06/23/2020 Post-op pain 08/24/2012 06/23/2020 [...] Sex Assigned at Female 01/08/2021 9:43 AM MANUFACTURING TECHNOLOGY ANALYST Legal Sex Female 5:13 PM CDT Gender Identity Female 01/08/2021 9:43 AM MANUFACTURING TECHNOLOGY ANALYST Sexual Orientation Straight 01/08/2021 9: 43 AM MANUFACTURING TECHNOLOGY ANALYST Last Filed Vital Signs Vital Sign Reading Time Taken Comments Blood Pressure 142/88 11/02/2024 6:07 PM MANUFACTURING TECHNOLOGY ANALYST Pulse 74 11/02/2024 6:07 PM MANUFACTURING TECHNOLOGY ANALYST Temperature 36.6 C (97.9 F) 11/02/2024 6:07 PM MANUFACTURING TECHNOLOGY ANALYST Respiratory Rate 18 11/02/2024 6:07 PM MANUFACTURING TECHNOLOGY ANALYST Oxygen Saturation 97% 11/02/2024 6:07 PM MANUFACTURING TECHNOLOGY ANALYST Inhaled Oxygen Concentration - - Weight 61.2 kg (134 lb 14.7 oz) 11/02/2024 2:41 PM MANUFACTURING TECHNOLOGY ANALYST Height 160 cm (5' 3) 11/02/2024 2:41 PM MANUFACTURING TECHNOLOGY ANALYST Body Mass Index 23.9 11/02/2024 2:41 PM MANUFACTURING TECHNOLOGY ANALYST Plan of Treatment Health Maintenance Due Date [...] 10/21, 01/30/2022, Additional history exists PHQ-2 (Physician Tinnie) 11/21/2024 11/16/2023 Mammogram Screening 02/16/2025 02/16/2023, 07/29/2021, [...] independently General No Cary rdz, Joselito Saez RNfuel oil clerk Procedure Name Priority Date/Time Associated Diagnosis Comments LIPID PANEL Routine 11/16/2023 10:34 AM MANUFACTURING TECHNOLOGY ANALYST Annual physical exam HEMOGLOBIN, GLYCOSYLATED Routine 11/16/2023 10:34 AM MANUFACTURING TECHNOLOGY ANALYST Annual physical exam MG DIAG IMPLANT W DEBRA MAGGIE DIGI Routine 02/16/2023 10:36 AM CDT Abnormal mammogram of both breasts COLONOSCOPY GENERIC (SCAN ORDER) 10/26/2022 HEPATITIS PANEL,ACUTE Routine 06/09/2022 11:03 AM CDT Chronic fatigue Elevated liver enzymes DIABETIC RETINOPATHY EXAM (NEGATIVE)(SCAN ORDER) Routine 02/10/2022 from Last 3 Months or Most Recently Relevant to Health Maintenance Results * (ABNORMAL) HEMOGLOBIN, GLYCOSYLATED (11/16/2023 10:34 AM MANUFACTURING TECHNOLOGY ANALYST) HGB A1C 6.3(H) <5.7 % of total Hgb multiBIND biotec [facility] Comment: For someone without known diabetes, [...] diabetes for children. 11/16/2023 10:3 4 AM MANUFACTURING TECHNOLOGY ANALYST 11/17/2023 3:17 AM MANUFACTURING TECHNOLOGY ANALYST Narrative Resulting Agency Comment Performing Organization Information: Site ID: CARMELITA Name: [facility] [employer] [facility] Address: [address] [place] [address] Director: Trinity Perez MD us Curtis Diaz MD LABORATORY Final Result [facility] [address] [place] [address], * (ABNORMAL) LIPID PANEL (11/16/2023 10:34 AM MANUFACTURING TECHNOLOGY ANALYST) CHOLESTEROL 165 <200 mg/dL [facility] HDL 29(L) > OR = 50 mg/dL [facility] TRIGLYCERIDES 163(H) <150 mg/dL [facility] LDL (CALCULATED) 108(H) mg/dL (calc) [facility] Comment: Reference range: <100 Desirable range <100 mg/dL for primary prevention; <70 mg/dL for patients with CHD or diabetic patients with > or = 2 CHD risk factors. LDL-C is now calculated using the Chinedu-Nica calculation, which is a validated novel method providing better accuracy than the Friedewald equation in the estimation of LDL-C. Chinedu TATE et al. LINN. 2013;310(19): 4668-2459 (http://education.Indyarocks.Gotcha Ninjas/faq/NIM883) CHOL/HDL RATIO 5.7(H) <5.0 (calc) [facility] NON HDL CHOLESTEROL 136(H) <130 mg/dL (calc) [facility] Comment: For patients with diabetes plus 1 major ASCVD risk factor, treating to a non-HDL-C goal of <100 mg/dL (LDL-C of <70 mg/dL) is considered a therapeutic option. 11/16/2023 10:3 4 AM MANUFACTURING TECHNOLOGY ANALYST 11/17/2023 3:17 AM MANUFACTURING TECHNOLOGY ANALYST Narrative Resulting Agency Comment Performing Organization Information: Site ID: CARMELITA Name: [facility]ell[facility] Address: [address] [address] Director: Trinity Perez MD Curtis Diaz MD LABORATORY Final Result [facility] [id number] [address], [place] * MG DIAG IMPLANT W DEBRA MAGGIE DIGI (02/16/2023 10:36 AM CDT) Anatomical Region Laterality Modality Breast Bilateral Mammography 02/16/2023 11:2 5 AM CDT Narrative 02/16/2023 11:29 AM CDT EXAMINATION: Digital bilateral diagnostic mammogram with 3-D tomography and right breast ultrasound [id number] EXAM DATE/TIME: 02/16/2023 10:26 AM REASON FOR [...] Comment: For additional information, please refer to http://Cimagine Media.Be[employer] Moca World Technology/faq/AOY227 (This link is being provided for informational/ [...] a test for HCV RNA (test code 43811) is suggested. For additional information please refer to http://Cimagine Media.Be[employer] Moca [employer]/faq/NCC10g6 (This link is being provided for informational/ educational purposes only.) 06/09/2022 11:0 3 AM CDT 06/10/2022 6:17 AM CDT Curtis Diaz MD LABORATORY Final Result [facility] [address] [place] [address] * DIABETIC RETINOPATHY EXAM (NEGATIVE)(SCAN) (02/10/2022) us Documents Scanned SCANNING Final Result [facility] from Last 3 Months or Most Recently Relevant to Health Maintenance Additional Health Concerns Infection Onset Date Last Indicated 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 06/30/2017 Insurance MEDICAID MEDICAID [facility] Advance Directives * Full Code (Latest Code Status on File) Date Activated Date Inactivated Comments 06/13/2022 11:37 PM 06/14/2022 5:06 PM * Full Code Date Activated Date Inactivated Comments 01/29/2022 8:23 PM 01/31/2022 12:48 PM Care Teams Websphere Developer Relationship Specialty Start Date End Date Dasha Conway, BED LABORER-BC [address] [place] [address] PCP - General 11/02/24
--- OUTSIDE RECORDS SUMMARY | 2025-08-03 19:37 | XMS_ITS | Encounter Summary ---
Author Organization [facility] Address [address] [place] [address] Phone Care Team Providers Care Spray Machine Tender Name Role Phone Curtis Diaz MD Primary Care Provider [phone] Donovan Parks MD Unavailable Dasha Conway NP Primary Care Provider [phone] Dasha Conway NP Primary Care Provider [phone] Encounter Details Date Type Department Care Team [...] on file Legal Sex Female 3:37 AM VEHICLE SERVICE ATTENDANT Gender Identity Female 10/02/2019 1:12 AM VEHICLE SERVICE ATTENDANT Sexual Orientation Straight 10/02/2019 1: 12 AM VEHICLE SERVICE ATTENDANT Occupation Industry Job Start Date Job End [...] on filedocumented in this encounter Care Teams Spray Machine Tender Relationship Specialty Start Date End Date Curtis Diaz MD [address] [place] [address] PCP - General Internal Medicine 06/12/21 08/22/24 Dasha Conway NP [address] [place] [address] PCP - General Family Medicine 08/23/24 05/01/25 Dasha Conway NP [address] [place] [address] [address] [place], [place] [id number] PCP - General Family Medicine 05/02/25 Donovan Parks MD [address] [place] [address] Referring Physician Gastroenterology 06/12/21 documented as of this encounter
--- OUTSIDE RECORDS SUMMARY | 2025-08-03 19:37 | XMS_ITS | Encounter Summary ---
Author Organization [facility] Address [facility] [place] [address] Care Team Providers Care Cell Room Supervisor Name Role Phone Dasha Conway Erlin [facility] Primary Care Provider [phone] Encounter Details Date Type Department Care Team (Late st Contact Info) Description 02/03/2021 ECO Filmshart Message Enc [facility] Medical Group Multispecialty Care - [address] [address] [address] [place], [place] [id number] [place] [address] [place] [address] [address] [place] [address] RE: Question Social History Tobacco Use Types [...] Sex Assigned at Female 01/08/2021 9:43 AM SCHEDULING ASSISTANT Legal Sex Female 5:13 PM CDT Gender Identity Female 01/08/2021 9:43 AM SCHEDULING ASSISTANT Sexual Orientation Straight 01/08/2021 9: 43 AM SCHEDULING ASSISTANT COVID-19 Exposure Response Date Recorded In [...] Rule Out 10/23/2021 10/23/2021 10/23/2021 9:25 AM SCHEDULING ASSISTANT COVID-19 Rule Out 10/23/2021 10/23/2021 10/24/2021 12:21 AM SCHEDULING ASSISTANT COVID-19 Rule Out 01/15/2022 01/15/2022 01/20/2022 10:53 AM SCHEDULING ASSISTANT COVID-19 Rule Out 04/21/2022 04/21/2022 04/21/2022 11:42 AM CDT COVID-19 Rule Out 04/21/2022 04/21/2022 04/26/2022 7:02 AM CDT COVID-19 Rule Out 10/06/2022 10/06/2022 10/06/2022 1:21 PM SCHEDULING ASSISTANT COVID-19 Rule Out 10/06/2022 10/06/2022 10/07/2022 3:34 PM SCHEDULING ASSISTANT COVID-19 Rule Out 09/14/2023 09/14/2023 09/14/2023 3:48 PM CDT COVID-19 Rule Out 11/02/2024 11/02/2024 11/02/2024 4:03 PM SCHEDULING ASSISTANT Assessment Noted Time PHQ-9 Depression Total Score: 13 020 1:12 PM CDT documented as of this encounter Care Teams Cell Room Supervisor Relationship Specialty Start Date End Date Dasha Conway, MAINTENANCE GROUNDMAN- [address] [place] [address] PCP - General 11/02/24 documented as of this encounter
--- OUTSIDE RECORDS SUMMARY | 2025-08-03 19:37 | XMS_ITS | Encounter Summary ---
Author Organization [facility] Healthcare Address [address] [place] [address] Care Team Providers Care Bleacher Sulfite Pulp Name Role Phone Donovan Parks MD Unavailable Dasha Conway NP Primary Care Provider [phone] Encounter Details Date Type Department Care Team (Late st Contact Info) Description 06/03/2025 Results Follow-Up [facility] Medical Group Primary Care at [address] [address] Dasha Conway NP [address] [place] [address] [address] [place] [address] [place] Abdomen Limited Social History [...] on file Legal Sex Female 3:37 AM BOWLING BALL MOLD ASSEMBLER Gender Identity Female 10/02/2019 1:12 AM BOWLING BALL MOLD ASSEMBLER Sexual Orientation Straight 10/02/2019 1: 12 AM BOWLING BALL MOLD ASSEMBLER 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
--- OUTSIDE RECORDS SUMMARY | 2025-08-03 19:37 | XMS_ITS | Encounter Summary ---
Author Organization [facility] Address [facility] [place] [address] Care Team Providers Care Chairman & Ceo Name Role Phone Dasha Conway [facility] Primary Care Provider [phone] Encounter Details Date Type Department Care Team (Late st Contact Info) Description 04/04/2024 GasBuddy Message Enc [facility] Medical Group Multispecialty Care - [address] [place] [address] Mycbabst, [facility] Provider culture Social History Tobacco Use Types [...] Sex Assigned at Female 01/08/2021 9:43 AM ATV MECHANIC Legal Sex Female 5:13 PM CDT Gender Identity Female 01/08/2021 9:43 AM ATV MECHANIC Sexual Orientation Straight 01/08/2021 9: 43 AM ATV MECHANIC documented as of this encounter Functional [...] Rule Out 11/02/2024 11/02/2024 11/02/2024 4:03 PM ATV MECHANIC Assessment Noted Time PHQ-9 Depression Total Score: 7 11/16/20 23 9:57 AM ATV MECHANIC documented as of this encounter Care Teams Chairman & Ceo Relationship Specialty Start Date End Date Dasha Conway, TWISTING FRAME FIXER- [address] [place] [address] PCP - General 11/02/24 documented as of this encounter
--- OUTSIDE RECORDS SUMMARY | 2025-08-03 19:37 | XMS_ITS | Encounter Summary ---
Author Organization [facility] Address Counts include 234 beds at the [facility] [place] [address] Care Team Providers Care Construction Superintendent Name Role Phone Dasha Conway [facility] Primary Care Provider [phone] Encounter Details Date Type Department Care Team (Late st Contact Info) Description 12/08/2020 Prep for Procedure [facility] [address] [place] [address] Donovan Parks MD [address] [place] [phone] Social History Tobacco Use Types Packs/Day Years [...] Sex Assigned at Female 01/08/2021 9:43 AM JET INSPECTOR Legal Sex Female 5:13 PM CDT Gender Identity Female 01/08/2021 9:43 AM JET INSPECTOR Sexual Orientation Straight 01/08/2021 9: 43 AM JET INSPECTOR COVID-19 Exposure Response Date Recorded In the last month, have you been in contact with someone who was confirmed or suspected to have Coronavirus / COVID-19? No / Unsure 12/10/2020 10:34 PM JET INSPECTOR documented as of this encounter Plan of Treatment Not on file documented as of this encounter Results * PRE-SURGICAL/PRE-PROCEDURE CORONAVIRUS (COVID 19) (12/16/2020 2:19 PM JET INSPECTOR) CORONAVIRUS SARS COV 2 PCR (RESP) NOT DETECTED NOT DETECTED 12/17/2020 4:31 PM JET INSPECTOR [facility] Comment: A Not Detected (negative) test [...] providers and patients using the following websites: https://www.Mobile Captain.Salesforce/home/Covid-19/HCP/NAAT/fact-sheet2 https://www.Mobile Captain.Salesforce/home/Covid-19/Patients/NAAT/ fact-sheet2 This test has been authorized by the FDA under an Emergency Use Authorization (EUA) for use by authorized laboratories. Due to the current public health emergency, [facility] is receiving a high volume of samples [...] about COVID-19 can be found at the [facility] website: www.HypePoints.Salesforce/Covid19. Test performed at [facility] [address] [place] [address] Director: CURRY BAEZA DO,MPH FIRST TEST NO 12/16/2020 2:10 PM JET INSPECTOR [facility] EMPLOYED IN HEALTHCARE NO 12/16/2020 2:10 PM JET INSPECTOR [facility] SYMPTOMATIC DEFINED BY CDC NO 12/16/2020 2:10 PM JET INSPECTOR [facility] DATE OF SYMPTOM ONSET UNKNOWN 12/16/2020 2:35 PM JET INSPECTOR [facility] HOSPITALIZATION STATUS NO 12/16/2020 2:10 PM JET INSPECTOR [facility] PATIENT IN ICU NO 12/16/2020 2:10 PM JET INSPECTOR [facility] RESIDENT OF [facility] NO 12/16/2020 2:10 PM JET INSPECTOR [facility] NOT 12/16/2020 2:10 PM JET INSPECTOR [facility] PATIENT'S RACE WHITE OR 12/16/2020 2:10 PM JET INSPECTOR [facility] ETHNICITY NONHISPANIC 12/16/2020 2:10 PM JET INSPECTOR [facility] SOURCE (QST) NASOPHARYNGEAL SWAB 12/16/2020 2:10 PM JET INSPECTOR [facility] NASOPHARYNGEAL SWAB / Unknown 12/16/2020 2:19 PM JET INSPECTOR us Donovan Parks MD MICROBIOLOGY - GENERAL ORDERABLE S Final Result [facility] [address] [place] [address], [place] [phone] [facility] [id number] [place] [address], documented in this encounter Visit Diagnoses Diagnosis Preop testing- Primary Preoperative examination, unspecified documented in this encounter Additional Health Concerns Infection Onset Date Last Indicated Resolved Time 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 06/30/2017 COVID-19 Rule Out 12/16/2020 12/16/2020 12/17/2020 4:31 PM JET INSPECTOR COVID-19 Rule Out 06/05/2021 06/05/2021 06/05/2021 12:31 PM CDT COVID-19 Rule Out 10/23/2021 10/23/2021 10/23/2021 9:25 AM JET INSPECTOR COVID-19 Rule Out 10/23/2021 10/23/2021 10/24/2021 12:21 AM JET INSPECTOR COVID-19 Rule Out 01/15/2022 01/15/2022 01/20/2022 10:53 AM JET INSPECTOR COVID-19 Rule Out 04/21/2022 04/21/2022 04/21/2022 11:42 AM CDT COVID-19 Rule Out 04/21/2022 04/21/2022 04/26/2022 7:02 AM CDT COVID-19 Rule Out 10/06/2022 10/06/2022 10/06/2022 1:21 PM JET INSPECTOR COVID-19 Rule Out 10/06/2022 10/06/2022 10/07/2022 3:34 PM JET INSPECTOR COVID-19 Rule Out 09/14/2023 09/14/2023 09/14/2023 3:48 PM CDT COVID-19 Rule Out 11/02/2024 11/02/2024 11/02/2024 4:03 PM JET INSPECTOR Assessment Noted Time PHQ-9 Depression Total Score: 13 020 1:12 PM CDT documented as of this encounter Care Teams Construction Superintendent Relationship Specialty Start Date End Date Dasha Conway PLANT GUARD-BC [address] [place] [address] PCP - General 11/02/24 documented as of this encounter
--- OUTSIDE RECORDS SUMMARY | 2025-08-03 19:37 | XMS_ITS | Encounter Summary ---
Author Organization [facility] Address [address] [place] [address] Phone Care Team Providers Care Substance Abuse Prevention Coordinator Name Role Phone Curtis Diaz MD Primary Care Provider [phone] Donovan Parks MD Unavailable Dasha Conway NP Primary Care Provider [phone] Dasha Conway NP Primary Care Provider [phone] Encounter Details Date Type Department Care Team [...] on file Legal Sex Female 3:37 AM DOUBLE SURFACE OPERATOR Gender Identity Female 10/02/2019 1:12 AM DOUBLE SURFACE OPERATOR Sexual Orientation Straight 10/02/2019 1: 12 AM DOUBLE SURFACE OPERATOR Occupation Industry Job Start Date Job [...] on filedocumented in this encounter Care Teams Substance Abuse Prevention Coordinator Relationship Specialty Start Date End Date Curtis Diaz MD [address] [place] [address] PCP - General Internal Medicine 06/12/21 08/22/24 Dasha Conway NP [address] [place] [address] PCP - General Family Medicine 08/23/24 05/01/25 Dasha Conway NP [address] [place] [address] [address] [place], [place] [id number] PCP - General Family Medicine 05/02/25 Donovan Parks MD [address] [place] [address] Referring Physician Gastroenterology 06/12/21 documented as of this encounter
--- OUTSIDE RECORDS SUMMARY | 2025-08-03 19:37 | XMS_ITS | Encounter Summary ---
Author Organization [facility] Address [facility] [place] [address] Care Team Providers Care Program Arranger Name Role Phone Dasha Conway [facility] Primary Care Provider [phone] Encounter Details Date Type Department Care Team (Late st Contact Info) Description 03/25/2021 OggiFinogit Message Enc [facility] Multispecialty Care - [address] [place] [address] Mela Elaine, COMMUTATOR PRESSER RE: Appointment Social History Tobacco Use Types [...] Sex Assigned at Female 01/08/2021 9:43 AM NAUTICAL INSTRUMENT MECHANIC Legal Sex Female 5:13 PM CDT Gender Identity Female 01/08/2021 9:43 AM NAUTICAL INSTRUMENT MECHANIC Sexual Orientation Straight 01/08/2021 9: 43 AM NAUTICAL INSTRUMENT MECHANIC COVID-19 Exposure Response Date Recorded In [...] Rule Out 10/23/2021 10/23/2021 10/23/2021 9:25 AM NAUTICAL INSTRUMENT MECHANIC COVID-19 Rule Out 10/23/2021 10/23/2021 10/24/2021 12:21 AM NAUTICAL INSTRUMENT MECHANIC COVID-19 Rule Out 01/15/2022 01/15/2022 01/20/2022 10:53 AM NAUTICAL INSTRUMENT MECHANIC COVID-19 Rule Out 04/21/2022 04/21/2022 04/21/2022 11:42 AM CDT COVID-19 Rule Out 04/21/2022 04/21/2022 04/26/2022 7:02 AM CDT COVID-19 Rule Out 10/06/2022 10/06/2022 10/06/2022 1:21 PM NAUTICAL INSTRUMENT MECHANIC COVID-19 Rule Out 10/06/2022 10/06/2022 10/07/2022 3:34 PM NAUTICAL INSTRUMENT MECHANIC COVID-19 Rule Out 09/14/2023 09/14/2023 09/14/2023 3:48 PM CDT COVID-19 Rule Out 11/02/2024 11/02/2024 11/02/2024 4:03 PM NAUTICAL INSTRUMENT MECHANIC Assessment Noted Time PHQ-9 Depression Total Score: 020 1:12 PM CDT documented as of this encounter Care Teams Program Arranger Relationship Specialty Start Date End Date Dasha Conway, CONTRACTING ANALYST- [address] [place] [address] PCP - General 11/02/24 documented as of this encounter
--- OUTSIDE RECORDS SUMMARY | 2025-08-03 19:37 | XMS_ITS | Encounter Summary ---
Author Organization [facility] Address Pending sale to [facility] [place] [address] Care Team Providers Care Cap Jewel Plate Assembler Name Role Phone Dasha Conway [facility] Primary Care Provider [phone] Encounter Details Date Type Department Care Team (Latest Contact Info) Description 03/16/2021 RebelMailhart Message Enc [facility] Medical Group Multispecialty Care - [place] [address] [place] [address] [address] [place] [address] [place] [address] [place] [address] [address] [place], [place] [id number] RE: Medication Questions Social History Tobacco Use [...] Sex Assigned at Female 01/08/2021 9:43 AM STAGE BUILDER Legal Sex Female 5:13 PM CDT Gender Identity Female 01/08/2021 9:43 AM STAGE BUILDER Sexual Orientation Straight 01/08/2021 9: 43 AM STAGE BUILDER COVID-19 Exposure Response Date Recorded In [...] Rule Out 10/23/2021 10/23/2021 10/23/2021 9:25 AM STAGE BUILDER COVID-19 Rule Out 10/23/2021 10/23/2021 10/24/2021 12:21 AM STAGE BUILDER COVID-19 Rule Out 01/15/2022 01/15/2022 01/20/2022 10:53 AM STAGE BUILDER COVID-19 Rule Out 04/21/2022 04/21/2022 04/21/2022 11:42 AM CDT COVID-19 Rule Out 04/21/2022 04/21/2022 04/26/2022 7:02 AM CDT COVID-19 Rule Out 10/06/2022 10/06/2022 10/06/2022 1:21 PM STAGE BUILDER COVID-19 Rule Out 10/06/2022 10/06/2022 10/07/2022 3:34 PM STAGE BUILDER COVID-19 Rule Out 09/14/2023 09/14/2023 09/14/2023 3:48 PM CDT COVID-19 Rule Out 11/02/2024 11/02/2024 11/02/2024 4:03 PM STAGE BUILDER Assessment Noted Time PHQ-9 Depression Total Score: 020 1:12 PM CDT documented as of this encounter Care Teams Cap Jewel Plate Assembler Relationship Specialty Start Date End Date Dasha Conway, TIRE BALANCER- [address] [place] [address] PCP - General 11/02/24 documented as of this encounter
--- OUTSIDE RECORDS SUMMARY | 2025-08-03 19:37 | XMS_ITS | Encounter Summary ---
Author Organization [facility] Address [facility]ly [facility] [place] [address] Care Team Providers Care Movie Critic Name Role Phone Dasha Conway [facility] Primary Care Provider [phone] Encounter Details Date Type Department Care Team (Latest Contact Info) Description 02/28/2021 [email or web address] Message Enc [facility] Medical Group Multispecialty Care - [address] [place] [address] Mela Elaine, SUPPLY CHAIN BUYER RE: Follow Up/Update Social History Tobacco Use [...] Sex Assigned at Female 01/08/2021 9:43 AM AIR HOIST OPERATOR Legal Sex Female 5:13 PM CDT Gender Identity Female 01/08/2021 9:43 AM AIR HOIST OPERATOR Sexual Orientation Straight 01/08/2021 9: 43 AM AIR HOIST OPERATOR COVID-19 Exposure Response Date Recorded In [...] Rule Out 10/23/2021 10/23/2021 10/23/2021 9:25 AM AIR HOIST OPERATOR COVID-19 Rule Out 10/23/2021 10/23/2021 10/24/2021 12:21 AM AIR HOIST OPERATOR COVID-19 Rule Out 01/15/2022 01/15/2022 01/20/2022 10:53 AM AIR HOIST OPERATOR COVID-19 Rule Out 04/21/2022 04/21/2022 04/21/2022 11:42 AM CDT COVID-19 Rule Out 04/21/2022 04/21/2022 04/26/2022 7:02 AM CDT COVID-19 Rule Out 10/06/2022 10/06/2022 10/06/2022 1:21 PM AIR HOIST OPERATOR COVID-19 Rule Out 10/06/2022 10/06/2022 10/07/2022 3:34 PM AIR HOIST OPERATOR COVID-19 Rule Out 09/14/2023 09/14/2023 09/14/2023 3:48 PM CDT COVID-19 Rule Out 11/02/2024 11/02/2024 11/02/2024 4:03 PM AIR HOIST OPERATOR Assessment Noted Time PHQ-9 Depression Total Score: 13 020 1:12 PM CDT documented as of this encounter Care Teams Movie Critic Relationship Specialty Start Date End Date Dasha Conway FNP- [address] [place] [address] PCP - General 11/02/24 documented as of this encounter
--- OUTSIDE RECORDS SUMMARY | 2025-08-03 19:37 | XMS_ITS | Encounter Summary ---
Author Organization [facility] Address [address] [place] [address] Care Team Providers Care Portable Track Crew Chief Name Role Phone Esteban Soler MD Unavailable [phone] Curtis Diaz MD Primary Care Provider [phone] Donovan Parks MD Unavailable Dasha Conway NP Primary Care Provider [phone] Dasha Conway PRODUCTION PAINTER Primary Care Provider [phone] Encounter Details Date Type Department Care Team (Late st Contact Info) Description 08/11/2018 Orders Only [facility] Information Management [address] [place] [address] Scanning, Provider Social History Tobacco Use Types Packs/Day Years Used Date Smoking Tobacco: Every Day Cigarettes Smokeless Tobacco: Never Alcohol Use Standard Drinks/Week Comments No 0 (1 standard drink = 0.6 oz pur e alcohol) Comments Unknown Sex and Gender Information Value Date Recorded Sex Assigned at Not on file Legal Sex Female 3:37 AM PI/SENIOR RESEARCH ASSOCIATE Gender Identity Female 10/02/2019 1:12 AM PI/SENIOR RESEARCH ASSOCIATE Sexual Orientation Straight 10/02/2019 1: 12 AM PI/SENIOR RESEARCH ASSOCIATE documented as of this encounter Plan of [...] on filedocumented in this encounter Care Teams Portable Track Crew Chief Relationship Specialty Start Date End Date Curtis Diaz MD [address] [place] [address] PCP - General Internal Medicine 06/12/21 08/22/24 Dasha Conway NP [address] [place] [address] PCP - General Family Medicine 08/23/24 05/01/25 Dasha Conway NP [address] [facility] [address] [place], [place] [id number] PCP - General Family Medicine 05/02/25 Esteban Soler MD [address] [address] [place] [address] Consulting Physician Rheumatology 09/10/19 06/11/21 Donovan Parks MD [address] [place] [address] Referring Physician Gastroenterology 06/12/21 documented as of this encounter
--- OUTSIDE RECORDS SUMMARY | 2025-08-03 19:37 | XMS_ITS | Encounter Summary ---
Author Organization [facility] Address [facility] [place] [address] Care Team Providers Care Yard Switch Operator Name Role Phone Dasha Conway [facility] Primary Care Provider [phone] Encounter Details Date Type Department Care Team (Late st Contact Info) Description 03/03/2021 JumpCloudt Message Enc [facility] Medical Group Multispecialty Care - [address] [place] [address] Mela Elaine, MIS MANAGER RE: Question Social History Tobacco Use Types [...] Assigned at Female 01/08/2021 9:43 AM CLINICAL APPEALS RN Legal Sex Female 5:13 PM CDT Gender Identity Female 01/08/2021 9:43 AM CLINICAL APPEALS RN Sexual Orientation Straight 01/08/2021 9: 43 AM CLINICAL APPEALS RN COVID-19 Exposure Response Date Recorded In the [...] Rule Out 10/23/2021 10/23/2021 10/23/2021 9:25 AM CLINICAL APPEALS RN COVID-19 Rule Out 10/23/2021 10/23/2021 10/24/2021 12:21 AM CLINICAL APPEALS RN COVID-19 Rule Out 01/15/2022 01/15/2022 01/20/2022 10:53 AM CLINICAL APPEALS RN COVID-19 Rule Out 04/21/2022 04/21/2022 04/21/2022 11:42 AM CDT COVID-19 Rule Out 04/21/2022 04/21/2022 04/26/2022 7:02 AM CDT COVID-19 Rule Out 10/06/2022 10/06/2022 10/06/2022 1:21 PM CLINICAL APPEALS RN COVID-19 Rule Out 10/06/2022 10/06/2022 10/07/2022 3:34 PM CLINICAL APPEALS RN COVID-19 Rule Out 09/14/2023 09/14/2023 09/14/2023 3:48 PM CDT COVID-19 Rule Out 11/02/2024 11/02/2024 11/02/2024 4:03 PM CLINICAL APPEALS RN Assessment Noted Time PHQ-9 Depression Total Score: 020 1:12 PM CDT documented as of this encounter Care Teams Yard Switch Operator Relationship Specialty Start Date End Date Dasha Conway FNP- [address] [place] [address] PCP - General 11/02/24 documented as of this encounter
--- NOTE | 2025-08-03 20:01 | ED.CHESTPAIN ---
HPI - Chest Pain General Chief Complaint: Chest Pain Stated Complaint: oral infection Time Seen by Provider: 08/03/25 19:14 History of Present Illness HPI narrative: Patient is a 45-year-old female who presents emergency department this evening concerned of candy in her blood stream. Patient states that this morning she started to have chest pain, which started this morning over 6 hours ago. Patient is that she has been experiencing flu-like symptoms myalgias and feels as though this could be related to recurrent oral thrush that she has been having. Patient has seen multiple PCPs and ENT providers does appear to be very anxious. Wants to be checked out for sepsis. Denies any fevers or chills at home, any urinary symptoms, any shortness of breath. Noted symptoms or concerns at this time. Related Data Home Medications ?Medication ?Instructions ?Recorded ?Confirmed ?Last Taken ?Type aspirin 325 mg tablet 325 mg PO .PRN 08/03/24 08/03/24 Unknown History Allergies Allergy/AdvReac Type Severity Reaction Status Date / Time pregabalin (From Lyrica) Allergy Severe Difficulty Verified 08/03/25 17:00 Breathing ropinirole Allergy Severe parkinsons Verified 08/03/25 17:00 like symptoms amoxicillin Allergy Intermediate Rash Verified 08/03/25 17:00 azithromycin Allergy Intermediate Hives Verified 08/03/25 17:00 cephalexin Allergy Intermediate Hives / Verified 08/03/25 17:00 Red Face eluxadoline Allergy Intermediate Diarrhea Verified 08/03/25 17:00 levofloxacin Allergy Intermediate rash Verified 08/03/25 17:00 Penicillins Allergy Intermediate rash Verified 08/03/25 17:00 prednisone Allergy Intermediate Rash Verified 08/03/25 17:00 sulfamethoxazole (From Allergy Intermediate Rash Verified 08/03/25 17:00 Bactrim) tramadol Allergy Intermediate Vomiting Verified 08/03/25 17:00 trifluoperazine Allergy Intermediate sick Verified 08/03/25 17:00 trimethoprim (From Bactrim) Allergy Intermediate Rash Verified 08/03/25 17:00 clavulanic acid (From Allergy Mild Rash Verified 08/03/25 17:00 Augmentin) Review of Systems Review of Systems: All systems are reviewed and are negative unless stated otherwise in the HPI. [facility] Past Medical History Medical History Fatty liver Gastroparesis Gas bloat syndrome Abdominal pain Breast implant removal status Right lower quadrant abdominal pain Diarrhea Nausea and vomiting Ovarian cyst Pericarditis Urolithiasis MTHFR gene mutation Pelvic floor dysfunction Cyst LUE, removed Eczema Anemia Previous known suicide attempt Anxiety Depression Bipolar disorder Lupus (systemic lupus erythematosus) Gestational diabetes Knee fracture, left Arthritis UTI (urinary tract infection) Kidney stone Endometriosis Infertility IBS (irritable bowel syndrome) Liver disease PUD (peptic ulcer disease) GERD (gastroesophageal reflux disease) Pneumonia Bronchitis Pericardial effusion Angina at rest HLD (hyperlipidemia) Dementia Fibromyalgia Asthma Chronic pain Schizoaffective disorder Hypokalemia Surgical History Surgical History History of gynecologic surgery Related to endometriosis, x3 H/O: hysterectomy H/O breast augmentation Cholecystectomy planned Family History Family History Grandparent Family history of coronary artery disease Father Family history of diabetes mellitus in first degree relative Diabetes mellitus Asthma Family history of arthritis Sibling Asthma Mother Family history of arthritis Social History Social History Smoking packs per day: 0.5 Smoking cigarettes per day: 10.0 Years smoked: 30 Smoking pack-years: 15.00 Smoking status: Former smoker Tobacco type: cigarettes Second hand tobacco smoke exposure: Yes Alcohol intake: never Substance use: current Substance use type: marijuana Other substance usage details: MEDICAL MARIJUANA - COUPLE TIMES A WEEK Living arrangements: with family Occupation/Education: unemployed Gender identity (if verbalized by the patient): Female Sexual Orientation (if Verbalized by the Patient): Straight or Heterosexual Spiritual care concerns: No Exam Narrative: General: Alert, awake, afebrile, very anxious. HEENT: PERRL, no rhinorrhea, no post nasal drip, oropharynx clear. Neck: Trachea midline, no JVD, no lymphadenopathy. Cardiovascular: Regular rate and rhythm, no murmurs, rubs or gallops, no peripheral edema. Respiratory: Clear to auscultation bilaterally, no tachypnea, no wheezing, no rhonchi, no rubs, no respiratory distress. Abdomen: Soft, nontender, nondistended, no rebound, no guarding, no peritoneal signs. Musculoskeletal: No joint swelling or deformity, normal muscle tone. Skin: No rashes or petechia, no signs of infection. Psychiatric: Alert and oriented, normal behavior and judgment for situation. Neurological: Alert and oriented to person, place, and time. Follows all commands. No focal deficits, speech is clear and fluent. Course Vital Signs Vital signs: Vital Signs Temperature 98.5 F 08/03/25 16:57 Pulse Rate 112 H 08/03/25 16:57 Respiratory Rate 16 08/03/25 16:57 Blood Pressure 155/90 H 08/03/25 16:57 Pulse Oximetry 100 08/03/25 16:57 Oxygen Delivery Room Air 08/03/25 16:57 Temperature 98.5 F 08/03/25 16:57 Pulse Rate 112 H 08/03/25 16:57 Respiratory Rate 16 08/03/25 16:57 Blood Pressure 155/90 H 08/03/25 16:57 Pulse Oximetry 100 08/03/25 16:57 Oxygen Delivery Room Air 08/03/25 16:57 MDM - Chest Pain MDM Narrative Medical decision making narrative: The patient was evaluated by myself in the emergency department. History is obtained from patient who is an independent historian and physical exam was performed. External medical records were reviewed at this time. IV was established and pertinent tests were ordered. EKG was obtained which revealed sinus rhythm at a rate of 79 beats per minute. No ST changes, T wave inversions or evidence of acute ischemia. EKG was independently interpreted by me and is currently pending official cardiology read. Laboratory results obtained revealing no acute process. Troponin negative. Imaging studies obtained included CXR which was independently interpreted by me revealing no acute cardiac process, which is pending final radiology interpretation. Differential diagnosis considerations include anxiety, acute stress reaction, acute viral syndrome, dehydration, electrolyte derangements, acute coronary syndrome, costochondritis. Comorbidities impacting this visit include none. I have evaluated and discussed social determinants of health with the patient that could potentially impact subsequent diagnosis and treatment plans. On repeat assessment of the patient, reevaluation revealed that the patient is doing well and is in no acute distress. Patient symptoms have remained stable since she arrived to our emergency department. Repeat vital signs were all reviewed and noted to be stable. Differential diagnosis and treatment plan were discussed with the patient at bedside. Patient agrees with discussion and after shared medical decision making agrees with discharge. All questions were answered to the patient's satisfaction. Patient will follow up with her PCP in 3-5 days. Patient was provided with strict return precautions and instructed to return to the emergency department if any new or worsening symptoms develop. The patient was discharged in stable condition. Lab Data 08/03/25 17:16 08/03/25 17:16 Labs: Lab Results 08/03/25 Range/Units 17:16 WBC 9.7 (4.5-10.0) K/mm3 RBC 4.26 (4.2-5.4) M/mm3 Hgb 13.8 (12.0-15.0) g/dL Hct 38.9 (37.0-47.0) % MCV 91.3 (80-100) fl MCH 32.4 (26-34) pg MCHC 35.5 (32-36) g/dl RDW 12.0 (11.5-14.5) % Plt Count 303 (150-375) k/mm3 MPV 10.3 (7.4-10.4) fl Immature Gran % (Auto) 0.5 (0-0.5) % Neut % (Auto) 67.2 (45.5-73.1) % Lymph % (Auto) 23.1 (18.3-44.2) % Rutherford % (Auto) 6.5 (2.6-8.5) % Eos % (Auto) 1.6 (0-4.4) % Baso % (Auto) 1.1 (0.2-1.2) % Lymph # (Auto) 2.25 (0.9-3.2) K/mm3 Rutherford # (Auto) 0.6 (0.1-0.6) K/mm3 Eos # (Auto) 0.2 (0-0.3) K/mm3 Baso # (Auto) 0.1 (0.0-0.1) K/mm3 Abs Immat Gran (auto) 0.05 H (0.00-0.031) K/mm3 Absolute Neuts (auto) 6.5 (1.3-6.7) K/mm3 Absolute Nucleated RBC 0.000 (0.0-0.012) K/mm3 Nucleated RBC % 0.0 (0.0-0.2) % Sodium 138 (137-145) mmol/L Potassium 3.4 (3.4-5.0) mmol/L Chloride 103 (98-107) mmol/L Carbon Dioxide 20 L (22-30) mmol/L Anion Gap 15 H (4-12) mmol/L BUN 4 L (7-17) mg/dL Creatinine 0.63 L (0.7-1.0) mg/dL Estim Creat Clear Calc 80 ml/min Estimated GFR > 60 (59 - ) Glucose 115 H (65-110) mg/dL Calcium 9.3 (8.4-10.2) mg/dL Total Bilirubin 0.4 (0.2-1.3) mg/dL AST 67 H (14-36) U/L ALT 39 H (6-35) U/L Alkaline Phosphatase 70 (38-126) U/L Troponin I < 0.012 (0.000-0.034) ng/mL Total Protein 8.7 H (6.3-8.2) g/dL Albumin 4.6 (3.5-5.1) g/dL Lipase 95 (23-300) U/L Discharge Plan Discharge Clinical Impression: Atypical chest pain Patient Disposition: Home Condition: Improved Instructions: Antibiotic Form, Chest Pain (ED) Additional Instructions: Please follow-up with the family doctor within the next 3-5 days. Return to emergency department if any new or worsening symptoms develop. Patient Language: Wallisian Prescriptions: No Action albuterol sulfate [ProAir HFA] 90 mcg/actuation HFA aerosol inhaler 2 puff INHALATION Q4-6H PRN (Reason: shortness of breath or wheezing) Qty: 1 6RF aspirin 325 mg tablet 325 mg PO .PRN Follow-up/Referrals: Zoraida,CHRISTINE Barton [Primary Care Provider, Unknown] - 3 Days Time of Disposition: 20:02
== END 2025-08-03 20:14 | disposition home or self-care (01) ==
PROVIDERS: Student in an Organized Health Care Education/Training Program; Emergency Provider Emergency Medicine; PCP Nurse Practitioner Family
DX: R07.89 Other chest pain (principal); R94.31 Abnormal electrocardiogram [ECG] [EKG]; D64.9 Anemia, unspecified; F41.9 Anxiety disorder, unspecified; F32.A Depression, unspecified; M32.9 Systemic lupus erythematosus, unspecified; M19.90 Unspecified osteoarthritis, unspecified site; Z87.440 Personal history of urinary (tract) infections; Z87.442 Personal history of urinary calculi; K21.9 Gastro-esophageal reflux disease without esophagitis; F03.90 Unspecified dementia, unspecified severity, without behavioral disturbance, psychotic disturbance, mood disturbance, and anxiety; M79.7 Fibromyalgia; J45.909 Unspecified asthma, uncomplicated
CPT/HCPCS: 36415; 71046; 80053; 83690; 84484; 85025; 93005; 99284